=== PATIENT | male | born 1960 | race Caucasian/White ===

== ENCOUNTER 2023-05-26 04:16 | Emergency (ER) | payer BC, SELFPAY ==
[2023-05-26 04:25] VITALS: BP 156/91; PULSE 114; RESP 16; TEMP 36.3; O2SAT 95
--- NOTE | 2023-05-26 04:56 | ED_ITS ---
HPI - General Adult General Chief complaint: Urogenital Problems, Male <Jennifer Villalta MD - Last Filed: 05/27/23 00:02> Stated complaint: unable to urinate. <Jennifer Villalta MD - Last Filed: 05/27/23 00:02> Time Seen by Provider: 05/26/23 04:34 <Jennifer Villatla MD - Last Filed: 05/27/23 00:02> History of Present Illness HPI narrative: Patient presents the emergency department unable to urinate for the past few hours. No fevers, no trauma or injury. Does not take any prescription medications, did not take any antihistamines, cold medicine etc. tonight. Reports that he has had urinary urgency for several months, no symptoms of STDs, no dysuria, blood or burning. He tried ordering an online supplement for prostate health and has been taking that for the past couple of weeks with no significant improvement in symptoms. Has never had keshawn urinary retention in the past but has had a slow stream for several years. Problem has been coming on gradually. Has never had a urinary catheter placed in the past. No prior history of similar symptoms. Eating and drinking normally, no symptoms of acute illness. Reports his past medical history is benign, no major long-term health problems. Nonsmoker. ROS notable only for the urinary symptoms as above, otherwise denies times 12 systems. <Jennifer Villalta MD - Last Filed: 05/27/23 00:02> Related Data Home medications: Previous Rx's Medication Instructions Recorded cephalexin 500 mg capsule 500 mg PO TID 7 days #21 caps 05/26/23 <Jennifer Villalta MD - Last Filed: 05/27/23 00:02> Allergies/adverse reactions: Allergies Allergy/AdvReac Type Severity Reaction Status Date / Time Penicillins Allergy Intermediate Verified 05/26/23 07:54 <Jennifer Villalta MD - Last Filed: 05/27/23 00:02> Exam Const: Vital Signs, click to edit/add: Vital Signs - 24 hr 05/26/23 04:25 05/26/23 08:10 05/26/23 10:19 Temperature 97.3 F L 97.3 F L Pulse Rate [Left P ulse Oximeter] 114 H 107 H 107 H Respiratory Rate 16 18 18 Blood Pressure [Ri ght Upper Arm] 156/91 H 122/79 122/79 Pulse Oximetry 95 93 Oxygen Delivery Me thod Room Air Room Air <Jennifer Villalta MD - Last Filed: 05/27/23 00:02> Vital Signs, click to edit/add: Vital Signs - 24 hr 05/26/23 04:25 05/26/23 08:10 05/26/23 10:19 Temperature 97.3 F L 97.3 F L Pulse Rate [Left P ulse Oximeter] 114 H 107 H 107 H Respiratory Rate 16 18 18 Blood Pressure [Ri ght Upper Arm] 156/91 H 122/79 122/79 Pulse Oximetry 95 93 Oxygen Delivery Me thod Room Air Room Air <Yon Schroeder MD - Last Filed: 05/26/23 09:55> Documenting provider has reviewed patient's vital signs: yes <Jennifer Villalta MD - Last Filed: 05/27/23 00:02> Common normals: no apparent distress and alert <Jennifer Villalta MD - Last Filed: 05/27/23 00:02> General appearance: cooperative and well kempt <Jennifer Villalta MD - Last Filed: 05/27/23 00:02> HENMT: Common normals: normocephalic <Jennifer Villalta MD - Last Filed: 05/27/23 00:02> Head and scalp: normocephalic <Jennifer Villalta MD - Last Filed: 05/27/23 00:02> Face and sinus: normal facial exam <Jennifer Villalta MD - Last Filed: 05/27/23 00:02> Eye: Common normals: conjunctivae normal <Jennifer Villalta MD - Last Filed: 05/27/23 00:02> General eye: normal appearance of both eyes <Jennifer Villalta MD - Last Filed: 05/27/23 00:02> Conjunctiva: conjunctiva(e) normal <Jennifer Villalta MD - Last Filed: 05/27/23 00:02> Resp: Common normals: normal respiratory effort, no use of accessory muscles and clear to auscultation bilaterally <Jennifer Villalta MD - Last Filed: 05/27/23 00:02> Effort & inspection: able to speak in complete sentences <Jennifer Villalta MD - Last Filed: 05/27/23 00:02> Auscultation: clear to auscultation bilaterally <Jennifer Villalta MD - Last Filed: 05/27/23 00:02> Cardio: Common normals: regular rate, regular rhythm, S1 normal heart sound, S2 normal heart sound and no murmurs <Jennifer Villalta MD - Last Filed: 05/27/23 00:02> Rate: regular rate <Jennifer Villalta MD - Last Filed: 05/27/23 00:02> Rhythm: regular rhythm <Jennifer Villalta MD - Last Filed: 05/27/23 00:02> Heart sounds: S1 normal and S2 normal <Jennifer Villalta MD - Last Filed: 05/27/23 00:02> GI: Common normals: Normal to inspection, nondistended, normoactive bowel sounds present, soft to palpation, no hepatosplenomegaly and no masses <Neeta Villalta MD - Last Filed: 05/27/23 00:02> Palpation: soft and no hepatosplenomegaly <Jennifer Villalta MD - Last Filed: 05/27/23 00:02> Other: 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 Bowel sounds normoactive throughout with some mild tenderness over the suprapubic region only. <Jennifer Villalta MD - Last Filed: 05/27/23 00:02> Neuro: Sensorium/orientation: alert <MD Jannet Tate Last Filed: 05/27/23 00:02> Speech: speech normal <MD Jannet Tate Last Filed: 05/27/23 00:02> Motor exam: no movement abnormalities noted <MD Jannet Tate Last Filed: 05/27/23 00:02> Psych: Appearance: well kempt <Jennifer Villalta MD - Last Filed: 05/27/23 00:02> Mood and affect: euthymic mood <Jennifer Villalta MD - Last Filed: 05/27/23 00:02> Insight: insight good <Jennifer Villalta MD - Last Filed: 05/27/23 00:02> Judgement: judgment good <Jennifer Villalta MD - Last Filed: 05/27/23 00:02> Skin: Common normals: no rashes or lesions noted <Jennifer Villalta MD - Last Filed: 05/27/23 00:02> General skin exam: no rashes or lesions noted <Jennifer Villalta MD - Last Filed: 05/27/23 00:02> Course Course ED Course: Bladder scan revealing greater than 400. Recommended urinary catheter placement and urinalysis. Based on his history, will start Flomax. Discussed the fact that he will need urology follow-up which may be difficult over this holiday season. It may take a few weeks to get in with a provider. Await labs. <Jennifer Villalta MD - Last Filed: 05/27/23 00:02> Reevaluation(s) Time of Reevaluation #1: 06:46 <Jennifer Villalta MD - Last Filed: 05/27/23 00:02> Reevaluation #1: Patient feeling much better after insertion of catheter. It took quite a while to get the urinalysis results back in September showed bloody urine like really grossly bloody urine. I let him know that these findings are concerning for potentially malignancy or other abnormal finding. I did recommend that since he is here and does not have a primary doctor to follow up with that we go ahead and proceed with a CT urogram of the abdomen and pelvis as well as some basic blood work. He was agreeable to this. <Jennifer Villalta MD - Last Filed: 05/27/23 00:02> Vital Signs Vital signs: Initial Vital Signs Temperature 97.3 F L 05/26/23 04:25 Temperature Source Oral 05/26/23 04:25 Pulse Rate 114 H 05/26/23 04:25 Pulse Rhythm Regular 05/26/23 04:25 Respiratory Rate 16 05/26/23 04:25 Blood Pressure 156/91 H 05/26/23 04:25 Blood Pressure Mean 112 H 05/26/23 04:25 Blood Pressure Position Sitting 05/26/23 04:25 Pulse Oximetry 95 05/26/23 04:25 Oxygen Delivery Method Room Air 05/26/23 04:25 Vital Signs Temperature 97.3 F L 05/26/23 04:25 Pulse Rate 114 H 05/26/23 04:25 Respiratory Rate 16 05/26/23 04:25 Blood Pressure 156/91 H 05/26/23 04:25 Pulse Oximetry 95 05/26/23 04:25 Oxygen Delivery Method Room Air 05/26/23 04:25 Temperature 97.3 F L 05/26/23 10:19 Pulse Rate 107 H 05/26/23 10:19 Respiratory Rate 18 05/26/23 10:19 Blood Pressure 122/79 05/26/23 10:19 Pulse Oximetry 93 05/26/23 08:10 Oxygen Delivery Method Room Air 05/26/23 08:10 <Jennifer Villalta MD - Last Filed: 05/27/23 00:02> Initial Vital Signs Temperature 97.3 F L 05/26/23 04:25 Temperature Source Oral 05/26/23 04:25 Pulse Rate 114 H 05/26/23 04:25 Pulse Rhythm Regular 05/26/23 04:25 Respiratory Rate 16 05/26/23 04:25 Blood Pressure 156/91 H 05/26/23 04:25 Blood Pressure Mean 112 H 05/26/23 04:25 Blood Pressure Position Sitting 05/26/23 04:25 Pulse Oximetry 95 05/26/23 04:25 Oxygen Delivery Method Room Air 05/26/23 04:25 Vital Signs Temperature 97.3 F L 05/26/23 04:25 Pulse Rate 114 H 05/26/23 04:25 Respiratory Rate 16 05/26/23 04:25 Blood Pressure 156/91 H 05/26/23 04:25 Pulse Oximetry 95 05/26/23 04:25 Oxygen Delivery Method Room Air 05/26/23 04:25 Temperature 97.3 F L 05/26/23 10:19 Pulse Rate 107 H 05/26/23 10:19 Respiratory Rate 18 05/26/23 10:19 Blood Pressure 122/79 05/26/23 10:19 Pulse Oximetry 93 05/26/23 08:10 Oxygen Delivery Method Room Air 05/26/23 08:10 <Yon Schroeder MD - Last Filed: 05/26/23 09:55> Medications Administered Medications: Discontinued Medications Generic Name Dose Route Start Last Admin Trade Name Freq PRN Reason Stop Dose Admin Tamsulosin HCl 0.4 mg 05/26/23 04:55 05/26/23 05:10 Tamsulosin Hcl 0.4 Mg Capsule PO 05/26/23 04:56 0.4 mg ONCE ONE Administration <Jennifer Villalta MD - Last Filed: 05/27/23 00:02> Discontinued Medications Generic Name Dose Route Start Last Admin Trade Name Freq PRN Reason Stop Dose Admin Tamsulosin HCl 0.4 mg 05/26/23 04:55 05/26/23 05:10 Tamsulosin Hcl 0.4 Mg Capsule PO 05/26/23 04:56 0.4 mg ONCE ONE Administration <Yon Schroeder MD - Last Filed: 05/26/23 09:55> Medical Decision Making MDM Narrative Medical decision making narrative: This patient comes in with urinary retention and was seen by Dr. Villalta who transferred care to md at the end of her shift. A CT urogram scan was ordered and completed and returns with no evidence of tumor or malignancy. The patient does have blood in his urine and has urinary retention which is likely related to his prostate gland. There is no obvious sign of infection on urinalysis but with a catheter in place that he will stay in place for a couple days I did decide to treat with Keflex. I advised the patient to follow up with the primary physician in a few days to remove the catheter but stressed also the importance of follow-up with urology clinic for further evaluation and treatment regarding these symptoms. <Yon Schroeder MD - Last Filed: 05/26/23 09:55> Lab Data Lab results reviewed: Yes I reviewed the patient's lab results <Jennifer Villalta MD - Last Filed: 05/27/23 00:02> Lab results narrative: Gross hematuria. Very concerning for possible underlying malignancy or other pathology. I do not think this is a kidney stone as he is not symptomatic for such. Has no primary care provider and I think that investigation is warranted. <Jennifer Villalta MD - Last Filed: 05/27/23 00:02> Labs: Lab Results 05/26/23 05/26/23 Range/Units 05:20 06:58 WBC 11.10 H (4.50-11.00) K/uL RBC 4.75 (4.30-5.90) m/uL Hgb 13.9 (13.5-17.5) gm/dL Hct 41.8 (37.0-53.0) % MCV 88 (80-100) fL MCH 29 (26-34) pg MCHC 33 (32-36) gm/dL RDW Coeff of Pamela 11.7 (11.5-15.5) % Plt Count 226 (140-440) K/uL Neut % (Auto) 82.6 H (42.0-72.0) % Lymph % (Auto) 9.9 L (20-44) % [place] % (Auto) 5.9 (0.0-11.0) % Eos % (Auto) 0.5 (0.0-7.0) % Baso % (Auto) 0.3 (0.0-3.0) % Neut # (Auto) 9.20 H (1.7-7.0) K/uL Lymph # (Auto) 1.10 (0.90-2.90) K/uL [place] # (Auto) 0.70 (0.00-0.90) K/UL Eos # (Auto) 0.10 (0.00-0.50) K/uL Baso # (Auto) 0.00 (0.00-0.30) K/uL Abs Immat Gran (auto) 0.10 (0.00-0.30) K/uL Imm/Tot Granulo (auto) 0.8 % Sodium 135 (135-149) mmol/L Potassium 4.5 (3.6-5.1) mmol/L Chloride 101 (96-114) mmol/L Carbon Dioxide 26 (20-32) mmol/L Anion Gap 8 (7-15) mEq/L BUN 17 (7-30) mg/dL Creatinine 0.6 (0.5-1.5) mg/dL Estimated GFR 108 ml/min Glucose 116 H (60-115) mg/dL Calcium 8.8 (8.4-10.6) mg/dL PSA Diagnostic 3.39 (0.10-4.00) ng/mL Urine Color Brown A (Yellow) Urine Appearance Cloudy A (Clear) Urine pH 5.5 (5.0-8.5) Ur Specific [place] >= 1.030 (1.000-1.030) Urine Protein 2+ A (Negative) Urine Glucose (UA) Negative (Negative) Urine Ketones Negative (Negative) Urine Blood 3+ A (Negative) Urine Nitrite Negative (Negative) Urine Bilirubin Negative (Negative) Urine Urobilinogen 0.2 (0.2-1.0) Ur Leukocyte Esterase Negative (Negative) Urine RBC >100 A (0-2) Urine WBC 5-10 A (0-5) Ur Squamous Epith Cells Few (None-Few) Urine Bacteria Moderate A (None) <Jennifer Villalta MD - Last Filed: 05/27/23 00:02> Lab Results 05/26/23 05/26/23 Range/Units 05:20 06:58 WBC 11.10 H (4.50-11.00) K/uL RBC 4.75 (4.30-5.90) m/uL Hgb 13.9 (13.5-17.5) gm/dL Hct 41.8 (37.0-53.0) % MCV 88 (80-100) fL MCH 29 (26-34) pg MCHC 33 (32-36) gm/dL RDW Coeff of Pamela 11.7 (11.5-15.5) % Plt Count 226 (140-440) K/uL Neut % (Auto) 82.6 H (42.0-72.0) % Lymph % (Auto) 9.9 L (20-44) % [place] % (Auto) 5.9 (0.0-11.0) % Eos % (Auto) 0.5 (0.0-7.0) % Baso % (Auto) 0.3 (0.0-3.0) % Neut # (Auto) 9.20 H (1.7-7.0) K/uL Lymph # (Auto) 1.10 (0.90-2.90) K/uL [place] # (Auto) 0.70 (0.00-0.90) K/UL Eos # (Auto) 0.10 (0.00-0.50) K/uL Baso # (Auto) 0.00 (0.00-0.30) K/uL Abs Immat Gran (auto) 0.10 (0.00-0.30) K/uL Imm/Tot Granulo (auto) 0.8 % Sodium 135 (135-149) mmol/L Potassium 4.5 (3.6-5.1) mmol/L Chloride 101 (96-114) mmol/L Carbon Dioxide 26 (20-32) mmol/L Anion Gap 8 (7-15) mEq/L BUN 17 (7-30) mg/dL Creatinine 0.6 (0.5-1.5) mg/dL Estimated GFR 108 ml/min Glucose 116 H (60-115) mg/dL Calcium 8.8 (8.4-10.6) mg/dL PSA Diagnostic 3.39 (0.10-4.00) ng/mL Urine Color Brown A (Yellow) Urine Appearance Cloudy A (Clear) Urine pH 5.5 (5.0-8.5) Ur Specific [place] >= 1.030 (1.000-1.030) Urine Protein 2+ A (Negative) Urine Glucose (UA) Negative (Negative) Urine Ketones Negative (Negative) Urine Blood 3+ A (Negative) Urine Nitrite Negative (Negative) Urine Bilirubin Negative (Negative) Urine Urobilinogen 0.2 (0.2-1.0) Ur Leukocyte Esterase Negative (Negative) Urine RBC >100 A (0-2) Urine WBC 5-10 A (0-5) Ur Squamous Epith Cells Few (None-Few) Urine Bacteria Moderate A (None) <Yon Schroeder MD - Last Filed: 05/26/23 09:55> Imaging Data CT Urogram: Radiologist's impression: 1. No calcified calculus. No evidence of current or recent obstructive uropathy on either side. 2. No visible renal cortical mass. No filling defect identified within the upper tracts or ureters. 3. The bladder is not well evaluated as it is decompressed by Isaac catheter. 4. Other incidental nonacute appearing findings as above. <Yon Schroeder MD - Last Filed: 05/26/23 09:55> Discharge Plan Discharge Clinical Impression: Acute urinary retention <Jennifer Villalta MD - Last Filed: 05/27/23 00:02> Patient Disposition: Home, Self-Care <Jennifer Villalta MD - Last Filed: 05/27/23 00:02> Condition: Improved <Jennifer Villalta MD - Last Filed: 05/27/23 00:02> Additional Instructions: Take medication as prescribed. Follow up with primary physician in 2-3 days for catheter removal. Follow-up with urology clinic for further evaluation treatment of urinary retention and hematuria. [facility] can be contacted by calling [phone] for appointment. <Jennifer Villalta MD - Last Filed: 05/27/23 00:02> Prescriptions: New cephalexin 500 mg capsule 500 mg PO TID 7 Days Qty: 21 0RF <Jennifer Villalta MD - Last Filed: 05/27/23 00:02> Follow Up/Referrals: Provider,Not a Local [Primary Care Provider] - <Jennifer Villalta MD - Last Filed: 05/27/23 00:02> Stand Alone Forms: MyHealth Info Instructions <Jennifer Villalta MD - Last Filed: 05/27/23 00:02>
[2023-05-26] MEDS: TAMSULOSIN HCL 0.4 MG CAPSULE PO (05:10)
[2023-05-26 06:17] LABS: Appearance Urine Cloudy (Clear); Bilirubin Urine Negative (Negative); Blood Urine 3+ (Negative); Color Urine Brown (Yellow); Glucose Urine Negative (Negative); Ketones Urine Negative (Negative); Leukocyte Esterase Urine Negative (Negative); Nitrite Urine Negative (Negative); Protein Urine 2+ (Negative); Specific Gravity Urine >= 1.030 (1.000-1.030); Urobilinogen Urine 0.2 (0.2-1.0); pH Urine 5.5 (5.0-8.5)
[2023-05-26 06:21] LABS: Bacteria Urine Moderate; RBC Urine >100 (0-2); Squamous Epithelial Cell Urine Few (None-Few)
--- NOTE | 2023-05-26 06:44 | CRLHL7_ITS ---
For Patients: As a result of the Century Cures Act, medical imaging exams and procedure reports are released immediately into your electronic medical record. You may view this report before your referring provider. If you have questions, please contact your health care provider. INDICATION: Difficulty urinating. Hematuria. COMPARISON: None TECHNIQUE: CT examination of the abdomen and pelvis was performed before and after the uneventful intravenous administration of 100 cc of Isovue 370. Thin section axial images were obtained from the lung bases through the pubic symphysis. Oral contrast was not administered. Please note that all CT scans at this facility use dose modulation, iterative reconstruction, and/or weight-based dosing when appropriate to reduce radiation dose to as low as reasonably achievable. FINDINGS: LUNG BASES: The lung bases as visualized appear normal.The heart size is normal at the lung bases. LIVER/BILIARY SYSTEM:Few scattered low-density lesions are identified.The gall bladder appears normal. There is no biliary ductal dilation. ADRENALS: Normal KIDNEYS, URETERS and BLADDER:There is no calcified calculus and there is no evidence of a current or recent obstructive uropathy. There is no renal cortical mass after contrast administration. No filling defect identified within the upper tracts or ureters. Bladder is decompressed by Isaac catheter rendering evaluation of the bladder limited. SPLEEN:Normal appearance. PANCREAS: Appears normal. RETROPERITONEUM and MESENTERY: There is no mass, adenopathy or aortic aneurysm. GASTROINTESTINAL SYSTEM: There is no evidence of diverticulitis, colitis, mechanical obstruction, or appendicitis. The small bowel as visualized appears normal. PELVIS: No mass, adenopathy or free fluid. OSSEOUS STRUCTURES and ABDOMINAL WALL: There is an age-appropriate appearance of the osseous structures.No significant abdominal wall defect. OTHER: No free fluid or free air. IMPRESSION: 1. No calcified calculus. No evidence of current or recent obstructive uropathy on either side. 2. No visible renal cortical mass. No filling defect identified within the upper tracts or ureters. 3. The bladder is not well evaluated as it is decompressed by Isaac catheter. 4. Other incidental nonacute appearing findings as above. Please note that all CT scans at this facility use dose modulation, iterative reconstruction, and/or weight-based dosing when appropriate to reduce radiation dose to as low as reasonably achievable. Dictated by Thuan Corey MD @ 05/26/2023 9:03:17 AM (Electronically Signed)
[2023-05-26 07:09] LABS: Basophils Percent Auto 0.3 % (0.0-3.0); Eosinophils Percent Auto 0.5 % (0.0-7.0); Hematocrit 41.8 % (37.0-53.0); Hemoglobin* 13.9 gm/dL (13.5-17.5); Immature Granulocytes Pct Auto 0.8 %; Lymphocytes Percent Auto 9.9 % (20-44); Mean Corpuscular HGB Conc 33 gm/dL (32-36); Mean Corpuscular Hemoglobin 29 pg (26-34); Mean Corpuscular Volume 88 fL (80-100); Monocytes Percent Auto 5.9 % (0.0-11.0); Neutrophils Percent Auto 82.6 % (42.0-72.0); Platelet Count* 226 K/uL (140-440); RDW Coefficient of Variation % 11.7 % (11.5-15.5); Red Blood Count 4.75 m/uL (4.30-5.90)
[2023-05-26 07:12] LABS: Slide Review Reflex No
[2023-05-26 07:20] LABS: Chloride* 101 mmol/L (96-114)
[2023-05-26 07:21] LABS: Potassium* 4.5 mmol/L (3.6-5.1); Sodium* 135 mmol/L (135-149)
[2023-05-26 07:23] LABS: Creatinine* 0.6 mg/dL (0.5-1.5); Estimated Glomerular Filt Rate 108 ml/min
[2023-05-26 07:24] LABS: Anion Gap 8 mEq/L (7-15); Blood Urea Nitrogen* 17 mg/dL (7-30); Calcium* 8.8 mg/dL (8.4-10.6); Carbon Dioxide* 26 mmol/L (20-32); Glucose* 116 mg/dL (60-115)
[2023-05-26 07:55] LABS: PSA Diagnostic* 3.39 ng/mL (0.10-4.00)
[2023-05-26 08:10] VITALS: BP 122/79; PULSE 107; RESP 18; O2SAT 93
--- NOTE | 2023-05-26 08:12 | ED.NURSE ---
parry catheter emptied 80cc dark brownish-red urine
[2023-05-26 10:19] VITALS: BP 122/79; PULSE 107; RESP 18; TEMP 36.3
--- NOTE | 2023-05-26 10:19 | ED.NURSE ---
Leg bag placed on pt. Given parry cath education. Pt had no further questions. D/c to home, ambulatory.
== END 2023-05-26 10:15 | disposition home or self-care (01) ==
PROVIDERS: Emergency Provider Family Medicine
DX: R33.9 Retention of urine, unspecified (principal)
CPT/HCPCS: 36415; 51702; 51798; 74178; 80048; 81003; 81015; 84153; 85025; 87086; 99284; A9270; Q9967

== ENCOUNTER 2023-05-28 13:48 | Outpatient (CLI) | payer BC, SELFPAY | END 2023-05-28 13:49 | disposition home or self-care (01) | PROVIDERS: Visit Provider Family Medicine | DX: R33.8 Other retention of urine (principal); R31.0 Gross hematuria | CPT/HCPCS: 80053; 82728 ==

== ENCOUNTER 2023-12-26 22:05 | Emergency (ER) | payer BC, SELFPAY ==
[2023-12-26 22:20] VITALS: BP 99/69; PULSE 100; RESP 16; TEMP 36.4; O2SAT 95; BMI 28.1
--- NOTE | 2023-12-26 22:36 | ED_ITS ---
HPI - General Adult General Time Seen by Provider: 22:36 <Kandi Turk MD - Last Filed: 12/27/23 01:45> Date Seen: 12/26/23 <Kandi Turk MD - Last Filed: 12/27/23 01:45> Chief complaint: Post Op Complication <Kandi Turk MD - Last Filed: 12/27/23 01:45> Stated complaint: post op pain <Kandi Turk MD - Last Filed: 12/27/23 01:45> Time Seen by Provider: 12/26/23 22:26 <Kandi Turk MD - Last Filed: 12/27/23 01:45> Source: patient, RN notes reviewed and old records reviewed <Kandi Turk MD - Last Filed: 12/27/23 01:45> Mode of arrival: ambulatory <Kandi Turk MD - Last Filed: 12/27/23 01:45> Limitations: no limitations <Kandi Turk MD - Last Filed: 12/27/23 01:45> History of Present Illness HPI narrative: Mr. Richard is a 63-year-old gentleman status post chemotherapy for bladder cancer, postop day 4 after a bladder removal and what he is describing a synth etic bladder replacement who comes to the emergency room with abdominal pain. Patient notes that he has been doing well until this evening at approximately 1700 when he developed increasing abdominal pain. He notes that it was gradual. He notes that he feels distended. He has had MiraLax today and has had 2 normal bowel movements that have been nonbloody. He denies nausea vomiting or fever. He notes that the pain is waxing and waning. He has a Isaac that is draining bloody urine. He is currently on apixaban and Macrobid. Movement does not really seem to impact his pain. He has not taken anything for pain this evening. <Kandi Turk MD - Last Filed: 12/27/23 01:45> Related Data Home medications: Home Medications ?Medication ?Instructions ?Recorded ?Confirmed albuterol 90 mcg/actuation aerosol 2 spray inhalation PRN 05/27/23 05/27/23 inhaler apixaban 2.5 mg tablet (Eliquis) 2.5 mg PO BID 12/26/23 12/26/23 nitrofurantoin 1 cap PO DAILY 12/26/23 12/26/23 monohydrate/macrocrystals 100 mg capsule <Kandi Turk MD - Last Filed: 12/27/23 01:45> Allergies/adverse reactions: Allergies Allergy/AdvReac Type Severity Reaction Status Date / Time Penicillins Allergy Intermediate Verified 05/28/23 13:30 <Kandi Turk MD - Last Filed: 12/27/23 01:45> Review of Systems Status of ROS: Reports: 10 or more systems reviewed and unremarkable except as noted in History and below <Kandi Turk MD - Last Filed: 12/27/23 01:45> Const: Denies: fever or chills <Kandi Turk MD - Last Filed: 12/27/23 01:45> ENMT: Denies: neck pain, difficulty swallowing or nasal congestion <Kandi Turk MD - Last Filed: 12/27/23 01:45> Cardio: Denies: chest pain, palpitations, swelling of feet/ankles or shortness of breath with exertion <Kandi Turk MD - Last Filed: 12/27/23 01:45> Resp: Denies: shortness of breath <Kandi Turk MD - Last Filed: 12/27/23 01:45> GI: Reports: abdominal pain; Denies: nausea, vomiting, diarrhea, constipation, difficulty swallowing or blood in stool <Kandi Turk MD - Last Filed: 12/27/23 01:45> Musculo: Reports: back pain; Denies: neck pain <Kandi Turk MD - Last Filed: 12/27/23 01:45> [facility] Medical History: Medical History Reactive airway disease ?J45.909 - Unspecified asthma, uncomplicated (ICD-10) Pneumonia ?J18.9 - Pneumonia, unspecified organism (ICD-10) <Kandi Turk MD - Last Filed: 12/27/23 01:45> Surgical History: Surgical History History of pyloric stenosis as a child ?Z87.19 - Personal history of other diseases of the digestive system (ICD-10) <Kandi Turk MD - Last Filed: 12/27/23 01:45> Family History: Family History Father Cancer of kidney Myocardial infarction, Onset Age: 87 Grandfather Myocardial infarction Grandmother Myocardial infarction <Kandi Turk MD - Last Filed: 12/27/23 01:45> Social History: Social History 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 Does not appear to be any any acute distress but he does appear to be a stoic gentleman. External ears eyes nose clear. Heart with regular rate and rhythm and lungs are clear bilaterally. I removed the abdominal binder and patient has no evidence of bleeding from surgical sites and no erythema. Abdomen is rather firm and uncomfortable to the touch rather diffusely. Lower extremities without edema. <Kandi Turk MD - Last Filed: 12/27/23 01:45> Const: Vital Signs, click to edit/add: Vital Signs - 24 hr 12/26/23 22:20 12/27/23 00:51 Temperature 97.5 F L Pulse Rate [Pulse Oximeter] 100 93 Respiratory Rate 16 16 Blood Pressure [Ri ght Upper Arm] 99/69 134/87 Pulse Oximetry 95 94 Oxygen Delivery Me thod Room Air Room Air <Kandi Turk MD - Last Filed: 12/27/23 01:45> Vital Signs, click to edit/add: Vital Signs - 24 hr 12/26/23 22:20 12/27/23 00:51 Temperature 97.5 F L Pulse Rate [Pulse Oximeter] 100 93 Respiratory Rate 16 16 Blood Pressure [Ri ght Upper Arm] 99/69 134/87 Pulse Oximetry 95 94 Oxygen Delivery Me thod Room Air Room Air <Jennifer Villalta MD - Last Filed: 12/27/23 02:34> Documenting provider has reviewed patient's vital signs: yes <Kandi Turk MD - Last Filed: 12/27/23 01:45> Course Course ED Course: Differential diagnosis includes but is not limited to bowel obstruction, postsurgical infection, postsurgical pain, in aortic pathology, gastroenteritis. Patient does have a port. Will draw labs to include CBC, comprehensive panel, lactate, CRP. <Kandi Turk MD - Last Filed: 12/27/23 01:45> Reevaluation(s) Reevaluation #1: Patient CRP has come back elevated at 2.2 but lactate is normal. White count normal at 10.59. Hemoglobin slightly low at 9.7. Mildly hyponatremic at 0132. Potassium and kidney function normal. LFTs normal. <Kandi Turk MD - Last Filed: 12/27/23 01:45> Time of Reevaluation #2: 02:28 <Jennifer Villalta MD - Last Filed: 12/27/23 02:34> Reevaluation #2: Dr. Villalta- I spoke with Dr. Romero from Urology. He agrees with my thought that air within the abdomen on only postop day for is not terribly concerning and is unlikely from dehiscence but we do agree with the small-bowel obstruction that he certainly should be admitted. The physician was quite surprised that the patient was discharged so early following cystectomy, we both suspect that this is because he is otherwise in such good health and was doing so well postoperatively. No beds available at [place], but beds are available in [facility]. Urology thought this would be appropriate as he was unlikely to need surgical intervention, hopefully just monitoring with resolution of the small bowel obstruction. I spoke with the patient and his family, offered BLS transport but let them know that we would need to call for mutual aid as we do not have a Rig available for transport out of the area tonight. I would anticipate a 6 hour wait until the new rig comes on in the morning, but this could certainly be delayed by Urgent 911 needs. Upon hearing this, the patient and family decline ambulance transport and would like to go by private car. Patient has not had any sedating medications and his family does seem very competent to transfer him. Images have already been pushed to the you and patient will be sent with a complete copy of his medical workup here in the ED. he will be transferred via private car upon nurse to nurse report. <Jennifer Villalta MD - Last Filed: 12/27/23 02:34> Vital Signs Vital signs: Initial Vital Signs Temperature 97.5 F L 12/26/23 22:20 Temperature Source Temporal Artery Scan 12/26/23 22:20 Pulse Rate 100 12/26/23 22:20 Respiratory Rate 16 12/26/23 22:20 Blood Pressure 99/69 12/26/23 22:20 Blood Pressure Mean 79 12/26/23 22:20 Blood Pressure Position Sitting 12/26/23 22:20 Pulse Oximetry 95 12/26/23 22:20 Oxygen Delivery Method Room Air 12/26/23 22:20 Vital Signs Temperature 97.5 F L 12/26/23 22:20 Pulse Rate 100 12/26/23 22:20 Respiratory Rate 16 12/26/23 22:20 Blood Pressure 99/69 12/26/23 22:20 Pulse Oximetry 95 12/26/23 22:20 Oxygen Delivery Method Room Air 12/26/23 22:20 Temperature 97.5 F L 12/26/23 22:20 Pulse Rate 93 12/27/23 00:51 Respiratory Rate 16 12/27/23 00:51 Blood Pressure 134/87 12/27/23 00:51 Pulse Oximetry 94 12/27/23 00:51 Oxygen Delivery Method Room Air 12/27/23 00:51 <Kandi Turk MD - Last Filed: 12/27/23 01:45> Initial Vital Signs Temperature 97.5 F L 12/26/23 22:20 Temperature Source Temporal Artery Scan 12/26/23 22:20 Pulse Rate 100 12/26/23 22:20 Respiratory Rate 16 12/26/23 22:20 Blood Pressure 99/69 12/26/23 22:20 Blood Pressure Mean 79 12/26/23 22:20 Blood Pressure Position Sitting 12/26/23 22:20 Pulse Oximetry 95 12/26/23 22:20 Oxygen Delivery Method Room Air 12/26/23 22:20 Vital Signs Temperature 97.5 F L 12/26/23 22:20 Pulse Rate 100 12/26/23 22:20 Respiratory Rate 16 12/26/23 22:20 Blood Pressure 99/69 12/26/23 22:20 Pulse Oximetry 95 12/26/23 22:20 Oxygen Delivery Method Room Air 12/26/23 22:20 Temperature 97.5 F L 12/26/23 22:20 Pulse Rate 93 12/27/23 00:51 Respiratory Rate 16 12/27/23 00:51 Blood Pressure 134/87 12/27/23 00:51 Pulse Oximetry 94 12/27/23 00:51 Oxygen Delivery Method Room Air 12/27/23 00:51 <Jennifer Villalta MD - Last Filed: 12/27/23 02:34> Medications Administered Medications: Discontinued Medications Generic Name Dose Route Start Last Admin Trade Name Freq PRN Reason Stop Dose Admin Sodium Chloride 500 mls @ 500 mls/hr 12/26/23 22:43 12/27/23 00:26 0.9 % Sodium Chloride 500 Ml IV 12/26/23 23:42 Infused .Q1H ONE Infusion <Kandi Turk MD - Last Filed: 12/27/23 01:45> Discontinued Medications Generic Name Dose Route Start Last Admin Trade Name Freq PRN Reason Stop Dose Admin Sodium Chloride 500 mls @ 500 mls/hr 12/26/23 22:43 12/27/23 00:26 0.9 % Sodium Chloride 500 Ml IV 12/26/23 23:42 Infused .Q1H ONE Infusion <Jennifer Villalta MD - Last Filed: 12/27/23 02:34> Medical Decision Making MDM Narrative Medical decision making narrative: 1. Small-bowel obstruction -at this time patient remains stable with normal lactate, normal potassium. 2. Questionable wound dehiscence status post bladder surgery -we are currently awaiting call from [place] surgeon regarding this patient. Images have been sent. 3. Abdominal pain-has not required anything for pain at this time. 4. Disposition -this case is signed out to my partner Dr. Villalta for discussion with [facility] and disposition. <Kandi Turk MD - Last Filed: 12/27/23 01:45> Medical Records Medical records reviewed: Yes I reviewed the patient's medical records <Kandi Turk MD - Last Filed: 07/28/24 01:45> Lab Data Lab results reviewed: Yes I reviewed the patient's lab results <Kandi Turk MD - Last Filed: 12/27/23 01:45> Labs: Lab Results 12/26/23 Range/Units 23:00 WBC 10.59 (4.50-11.00) K/uL RBC 3.20 L (4.30-5.90) m/uL Hgb 9.7 L (13.5-17.5) gm/dL Hct 29.5 L (37.0-53.0) % MCV 92 (80-100) fL MCH 30 (26-34) pg MCHC 33 (32-36) gm/dL RDW Coeff of Pamela 14.5 (11.5-15.5) % Plt Count 280 (140-440) K/uL Neut % (Auto) 78.0 H (42.0-72.0) % Lymph % (Auto) 9.5 L (20-44) % Riley % (Auto) 8.2 (0.0-11.0) % Eos % (Auto) 2.3 (0.0-7.0) % Baso % (Auto) 0.3 (0.0-3.0) % Neut # (Auto) 8.30 H (1.7-7.0) K/uL Lymph # (Auto) 1.00 (0.90-2.90) K/uL Riley # (Auto) 0.90 (0.00-0.90) K/UL Eos # (Auto) 0.24 (0.00-0.50) K/uL Baso # (Auto) 0.03 (0.00-0.30) K/uL Abs Immat Gran (auto) 0.18 (0.00-0.30) K/uL Imm/Tot Granulo (auto) 1.7 % Sodium 132 L (135-149) mmol/L Potassium 4.1 (3.6-5.1) mmol/L Chloride 101 (96-114) mmol/L Carbon Dioxide 24 (20-32) mmol/L Anion Gap 7 (7-15) mEq/L BUN 24 (7-30) mg/dL Creatinine 0.9 (0.5-1.5) mg/dL Estimated Creat Clear 72.20 Estimated GFR 95 ml/min Glucose 112 (60-115) mg/dL Lactate 0.7 (0.5-1.9) mmol/L Calcium 8.7 (8.4-10.6) mg/dL Total Bilirubin 0.5 (0.1-1.5) mg/dL AST 34 (12-35) U/L ALT 23 (4-50) U/L Alkaline Phosphatase 65 (40-150) U/L C-Reactive Protein 2.2 H (0.5-1.0) mg/dL Total Protein 6.4 (6.0-8.3) g/dL Albumin 3.9 (3.3-5.0) g/dL <Kandi Turk MD - Last Filed: 12/27/23 01:45> Lab Results 12/26/23 Range/Units 23:00 WBC 10.59 (4.50-11.00) K/uL RBC 3.20 L (4.30-5.90) m/uL Hgb 9.7 L (13.5-17.5) gm/dL Hct 29.5 L (37.0-53.0) % MCV 92 (80-100) fL MCH 30 (26-34) pg MCHC 33 (32-36) gm/dL RDW Coeff of Pamela 14.5 (11.5-15.5) % Plt Count 280 (140-440) K/uL Neut % (Auto) 78.0 H (42.0-72.0) % Lymph % (Auto) 9.5 L (20-44) % Riley % (Auto) 8.2 (0.0-11.0) % Eos % (Auto) 2.3 (0.0-7.0) % Baso % (Auto) 0.3 (0.0-3.0) % Neut # (Auto) 8.30 H (1.7-7.0) K/uL Lymph # (Auto) 1.00 (0.90-2.90) K/uL Riley # (Auto) 0.90 (0.00-0.90) K/UL Eos # (Auto) 0.24 (0.00-0.50) K/uL Baso # (Auto) 0.03 (0.00-0.30) K/uL Abs Immat Gran (auto) 0.18 (0.00-0.30) K/uL Imm/Tot Granulo (auto) 1.7 % Sodium 132 L (135-149) mmol/L Potassium 4.1 (3.6-5.1) mmol/L Chloride 101 (96-114) mmol/L Carbon Dioxide 24 (20-32) mmol/L Anion Gap 7 (7-15) mEq/L BUN 24 (7-30) mg/dL Creatinine 0.9 (0.5-1.5) mg/dL Estimated Creat Clear 72.20 Estimated GFR 95 ml/min Glucose 112 (60-115) mg/dL Lactate 0.7 (0.5-1.9) mmol/L Calcium 8.7 (8.4-10.6) mg/dL Total Bilirubin 0.5 (0.1-1.5) mg/dL AST 34 (12-35) U/L ALT 23 (4-50) U/L Alkaline Phosphatase 65 (40-150) U/L C-Reactive Protein 2.2 H (0.5-1.0) mg/dL Total Protein 6.4 (6.0-8.3) g/dL Albumin 3.9 (3.3-5.0) g/dL <Jennifer Villalta MD - Last Filed: 12/27/23 02:34> Imaging Data CT scan - abdomen: Attestation: I have reviewed the pertinent imaging results. <Kandi Turk MD - Last Filed: 12/27/23 01:45> Radiologist's impression: Lower chest: Mild atelectasis and/or scarring. Hepatobiliary: No significant parenchymal abnormality is appreciated. Unchanged hepatic hypodensities. Spleen: Unremarkable. Pancreas: No acute abnormality appreciated. Adrenal glands: No acute abnormality appreciated. Kidneys: Ureteral stents present. No hydronephrosis. Bowel: Partial bowel resection for ileal neobladder creation. Proximal to the anastomosis, there is severe small bowel wall thickening with upstream bowel dilation measuring up to 3.1 centimeters. The appendix is visualized and appears unremarkable. Vascular: Calcified atherosclerosis. Lymph nodes: Darrius dissection. Peritoneum: Free air and free fluid present. : Cystectomy and ileal neobladder creation. Ureteral stents terminate in the neobladder. Isaac catheter present. Soft tissues: Postoperative changes to the soft tissues. Bones: No acute fracture. No lytic or blastic lesion. Impression: Patient is status post cystectomy with ileal neobladder creation. There is free air and fluid within the abdomen; correlation for timeframe of surgery for evolving postsurgical air and fluid versus dehiscence is recommended. Otherwise, there is a loop of small bowel proximal to the ileal resection site demonstrating severe bowel wall thickening with upstream bowel dilation suspicious for a nonspecific enteritis and at least partial obstruction. <Kandi Turk MD - Last Filed: 12/27/23 01:45> Discharge Plan Discharge Clinical Impression: Small bowel obstruction, Abdominal pain, Complication, postoperative <Kandi Turk MD - Last Filed: 12/27/23 01:45> Patient Disposition: Xfer Other <Kandi Turk MD - Last Filed: 12/27/23 01:45> Discharge Location: [facility] <Kandi Turk MD - Last Filed: 12/27/23 01:45> Additional Instructions: Transferred to [facility] per urology <Kandi Turk MD - Last Filed: 12/27/23 01:45> Prescriptions: No Action albuterol 90 mcg/actuation aerosol 2 spray inhalation PRN nitrofurantoin monohyd/m-cryst 100 mg capsule 1 cap PO DAILY Eliquis 2.5 mg tablet 2.5 mg PO BID <Kandi Turk MD - Last Filed: 12/27/23 01:45> Stand Alone Forms: [facility] Info Instructions <Kandi Turk MD - Last Filed: 12/27/23 01:45>
--- NOTE | 2023-12-26 22:43 | CRLHL7_ITS ---
For Patients: As a result of the Century Cures Act, medical imaging exams and procedure reports are released immediately into your electronic medical record. You may view this report before your referring provider. If you have questions, please contact your health care provider. Indication: Status post cystectomy with postoperative pain Technique: CT through the abdomen and pelvis following 90 mL Isovue 370 IV contrast Comparison: CT urogram performed 05/26/2023 Findings: Lower chest: Mild atelectasis and/or scarring. Hepatobiliary: No significant parenchymal abnormality is appreciated. Unchanged hepatic hypodensities. Spleen: Unremarkable. Pancreas: No acute abnormality appreciated. Adrenal glands: No acute abnormality appreciated. Kidneys: Ureteral stents present. No hydronephrosis. Bowel: Partial bowel resection for ileal neobladder creation. Proximal to the anastomosis, there is severe small bowel wall thickening with upstream bowel dilation measuring up to 3.1 centimeters. The appendix is visualized and appears unremarkable. Vascular: Calcified atherosclerosis. Lymph nodes: Darrius dissection. Peritoneum: Free air and free fluid present. : Cystectomy and ileal neobladder creation. Ureteral stents terminate in the neobladder. Isaac catheter present. Soft tissues: Postoperative changes to the soft tissues. Bones: No acute fracture. No lytic or blastic lesion. Impression: Patient is status post cystectomy with ileal neobladder creation. There is free air and fluid within the abdomen; correlation for timeframe of surgery for evolving postsurgical air and fluid versus dehiscence is recommended. Otherwise, there is a loop of small bowel proximal to the ileal resection site demonstrating severe bowel wall thickening with upstream bowel dilation suspicious for a nonspecific enteritis and at least partial obstruction. Please note that all CT scans at this facility use dose modulation, iterative reconstruction, and/or weight-based dosing when appropriate to reduce radiation dose to as low as reasonably achievable. Dictated by Michael Ang MD @ 12/27/2023 12:51:24 AM (Electronically Signed)
--- OUTSIDE RECORDS SUMMARY | 2023-12-26 23:05 | XMS_ITS | Clinical Summary ---
Author Organization [place] Address [address] [place] [id number] Care Team Providers Care Group Cio Name Role Phone Alvaro Clark MD Unavailable No Ref-Primary, Physician Primary Care Provider Yessica Mcleod PA-C Unavailable Allergies Active Allergy Reactions Criticality Noted Date Comments Penicillins Nausea and Vomiting Medium 06/18/2023 Medications Medication Sig Dispensed Refills Start Date End Date Status acetaminophen-caffeine (EXCEDRIN TENSION HEADACHE) 500-65 MG TABS Take 2 tablets by mouth every 6 hours as needed for mild pain (PRN HEADACHE) Active diphenhydrAMINE HCl (BENADRYL ALLERGY PO) Take 1 tablet by mouth as needed Active acetaminophen (TYLENOL) 325 MG tabletIndications:Posto perative state,Post-op pain Take 2 tablets (650 mg) by mouth every 4 hours as needed for other (For optimal non-opioid multimodal pain management to improve pain control.) 50 tablet 4 Active apixaban ANTICOAGULANT (ELIQUIS) 2.5 MG tabletIndications:DVT-P E Prophylaxis Take 1 tablet (2.5 mg) by mouth 2 times daily 58 tablet 4 Active gabapentin (NEURONTIN) 100 MG capsuleIndications:Post operative state,Post-op pain Take 1 capsule (100 mg) by mouth 3 times daily as needed for other (post op pain) 14 capsule 4 Active methocarbamol (ROBAXIN) 750 MG tabletIndications:Posto perative state,Post-op pain Take 1 tablet (750 mg) by mouth every 6 hours as needed for muscle spasms 14 tablet 4 Active nitroFURantoin macrocrystal-monohydrat e (MACROBID) 100 MG capsuleIndications:Shiva operative Pharmacoprophylaxis Take 1 capsule (100 mg) by mouth daily 19 capsule 4 Active polyethylene glycol (MIRALAX) 17 GM/Dose powderIndications:Posto perative state Take 17 g by mouth daily 510 g 4 Active senna-docusate (SENOKOT-S/PERICOLACE) 8.6-50 MG tabletIndications:Posto perative state Take 1 tablet by mouth 2 times daily 40 tablet 4 Active tamsulosin (FLOMAX) 0.4 MG capsuleIndications:Hiram gn prostatic hyperplasia with urinary obstruction Take 2 capsules (0.8 mg) by mouth daily 180 capsule 1 4 12/11/19 24 Discontin ued(Med Rec(No AVS / No eCancel)) prochlorperazine (COMPAZINE) 10 MG tabletIndications:Uroth elial cancer (H) Take 1 tablet (10 mg) by mouth every 6 hours as needed for nausea or vomiting 30 tablet 2 4 12/11/19 24 Discontin ued(Med Rec(No AVS / No eCancel)) ondansetron (ZOFRAN) 8 MG tabletIndications:Uroth elial cancer (H) Take 1 tablet (8 mg) by mouth every 8 hours as needed for nausea (vomiting) 30 tablet 2 4 12/11/19 24 Discontin ued(Med Rec(No AVS / No eCancel)) dexAMETHasone (DECADRON) 4 MG tabletIndications:Uroth elial cancer (H) Take 2 tablets (8 mg) by mouth daily Take for 3 days, starting the day after chemo. Take with food. 6 tablet 2 4 12/11/19 24 Discontin ued(Med Rec(No AVS / No eCancel)) cetirizine (ZYRTEC) 10 MG tablet Take 10 mg by mouth daily 12/11/19 24 Discontin ued(Med Rec(No AVS / No eCancel)) ciprofloxacin (CIPRO) 500 MG tabletIndications:Posto perative state Take 1 tablet (500 mg) by mouth once for 1 dose Take prior to your appointment with Dr Clark for stent removal 1 tablet 4 12/25/19 24 Discontin ued(Stop at Discharge ) Active Problems Problem Noted Date Diagnosed Date Bladder cancer 12/22/2023 Urothelial cancer 09/06/2023 Lesion of bladder 07/10/2023 Encounters Date Type Department Care Team Description 12/26/2023 MyC Medical Advice [facility] [address] [facility] [place] [address] Alvaro Clark MD 12/22/2023 8:00 AM CDT - 12/22/2023 1:00 PM CDT Surgery [facility] [address] [place] [address] Alvaro Clark MD CYSTECTOMY, pelvic node dissection WITH ILEAL NEOBLADDER CREATION 12/22/2023 7:48 AM CDT Anesthesia Event [facility] [address] [place] [address] Alf Olson MD Johnson, Ashley Keryn, APRN COMMUNITY MARKETING COORDINATOR 12/22/2023 5:50 AM CDT - 12/25/2023 3:50 PM CDT Hospital Encounter [facility] [address] [place] [address] [place] [address] Alvaro Clark MD Postoperative state (Primary Dx); Bladder cancer (H); Urothelial cancer (H); Lesion of bladder; Post-op pain Discharge Disposition: Home or Self Care 12/11/2023 9:00 AM CDT Lab [facility] [address] 1[address] [place] [address] Preop examination; 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 (H) 12/11/2023 8:00 AM CDT Office Visit [facility] [address] 5th [place] [phone] Rizwana Tejeda APRN COMMUNITY MARKETING COORDINATOR Preop examination (Primary Dx); 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 (H) 12/11/2023 Travel 12/11/2023 PRE VISIT [facility] [address] [place] [address] Rizwana Tejeda, CARLOS COMMUNITY MARKETING COORDINATOR 12/08/2023 PRE VISIT [facility] [address] [place] [address] Rizwana Tejeda, AUDIT SPECIALIST COMMUNITY MARKETING COORDINATOR 12/01/2023 MyC Medical Advice [address] [facility] [place] [address] Sabra Wilcox 12/01/2023 Orders Only [address] [facility] [place] [address] Dylan Guerin PA Urothelial cancer (H) (Primary Dx) 11/27/2023 2:30 PM CDT Oncology Visit [address] [facility] [place] [address] Yessica Mcleod, RONALD Urothelial cancer (H) (Primary Dx); 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) Discharge Disposition: Home or Self Care 11/25/2023 10:56 AM CDT - 11/25/2023 2:17 PM CDT Hospital Encounter [facility] [address] [place] [phone] Non- Credentialed Provider, Radiology Kathryn Page MD Discharge Disposition: Home or Self Care 11/20/2023 11:00 AM CDT Office Visit [address] [facility] [place] [phone] Alvaro Clark MD Urothelial cancer (H) (Primary Dx) 11/20/2023 Orders Only [facility] [address] 4[address] [place] [phone] Alvaro Clark MD 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 (H) (Primary Dx) 11/20/2023 Travel 11/18/2023 Orders Only [facility] Services - Cancer Care Service Line [address] [place] [address] Ky Torres MD 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) (Primary Dx) 11/17/2023 MyC Medical Advice [facility] [address] [facility] Medical [place] [facility] [phone] Sixto Whalen APRN COMMUNITY MARKETING COORDINATOR 11/10/2023 1:48 PM CDT - 11/10/2023 11:59 PM CDT Hospital Encounter [facility] [address] [facility] [address] [place] [phone] Yessica Mcleod PA-C Left leg swelling Discharge Disposition: Home or Self Care 11/10/2023 8:30 AM CDT Infusion Therapy Visit [facility] [address] [place] [phone] Ky Torres MD Urothelial cancer (H) (Primary Dx) 11/10/2023 8:00 AM CDT Oncology Visit [address] [place] [phone] Yessica Mcleod PA-C Urothelial cancer (H) (Primary Dx); Left leg swelling 11/10/2023 7:45 AM CDT Lab [address] [place] [phone] Ky Torres MD Urothelial cancer (H) (Primary Dx) 11/10/2023 Travel 10/28/2023 9:00 AM CDT Infusion Therapy Visit [place] [address] [place] [address] [place] [phone] Yessica Mcleod PA-C Urothelial cancer (H) (Primary Dx) 10/27/2023 2:30 PM CDT Virtual Visit [facility] [address] [place] [address] Sixto Whalen APRN CNP Urothelial cancer (H) (Primary Dx); 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) 10/27/2023 12:30 PM CDT Lab [place] [address] [place] [address] [place] [phone] Yessica Mcleod PA-C Urothelial cancer (H) (Primary Dx) 10/27/2023 Travel 10/22/2023 Orders Only [facility] [place] [address] Luma Malcolm, [facility] 10/21/2023 9:00 AM CDT Ancillary Procedure [facility] [address] [place] [address] Ky Torres MD Urothelial cancer (H); 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) 10/21/2023 Travel 10/20/2023 Orders Only [facility] Services - Cancer Care Service Line [address] [place] [address] Ky Torres MD Urothelial cancer (H) (Primary Dx); 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) 10/13/2023 9:30 AM CDT Infusion Therapy Visit [address] [place] [phone] Yessica Mcleod PA-C Urothelial cancer (H) (Primary Dx) 10/13/2023 MyC Medical Advice [address] [place] [phone] Charlie Almonte RN Urothelial cancer (H) 10/12/2023 2:30 PM CDT Virtual Visit [facility] [address] [place] [phone] Sixto Whalen APRN CNP Urothelial cancer (H) (Primary Dx) 10/12/2023 12:30 PM CDT Lab [address] [place] [phone] Yessica Mcleod PA-C Urothelial cancer (H) (Primary Dx) 10/12/2023 Travel 10/07/[address] [place] [phone] Ky Torres MD 09/29/2023 8:00 AM CDT Infusion Therapy Visit [address] [place] [phone] Ky Torres MD Urothelial cancer (H) (Primary Dx) 09/29/2023 Telephone [facility] [address] [place] [address] [facility] [place] [phone] Ky Torres MD Symptoms 09/29/2023 Travel 09/28/2023 MyC Medical Advice [facility] [address] [place] [address] [facility] [place] [phone] Charlie Almonte RN Urothelial cancer (H) (Primary Dx) 09/26/2023 MyC Medical Advice [facility] [address] [facility] [place] [phone] Ky Torres MD from Last 3 Months Family History Medical History Relation Comments Bladder Cancer Father No Known Problems Mother Anesthesia Reaction No family hx of Thrombosis No family hx of Relation Status Comments Father Mother Alive Social History Tobacco Use Types Packs/Day Years Used Date Smoking Tobacco: Former Cigarettes 1.5 30 1 - 2009 Passive Smoke Exposure: Past Smokeless Tobacco: Never Alcohol Use Standard Drinks/Week Comments Never 0 (1 standard drink = 0.6 oz pur e alcohol) Adolescent Education Answer Date Record ed Getting School Help Needed Not on file 06/08 Sex and Gender Information Value Date Recorded Sex Assigned at Not on file Gender Identity Not on file Sexual Orientation Not on file Last Filed Vital Signs Vital Sign Reading Time Taken Comments Blood Pressure 103/67 12/25/2023 7:00 AM CDT Pulse 84 12/25/2023 7:00 AM CDT Temperature 37.1 ??C (98.7 ??F) 12/25/2023 7:00 AM CD T Respiratory Rate 16 12/25/2023 7:00 AM CDT Oxygen Saturation 97% 12/25/2023 7:00 AM CDT Inhaled Oxygen Concentration - - Weight 88 kg (194 lb 0.1 oz) 12/22/2023 6:16 AM CDT Height 172.7 cm (5' 8) 12/22/2023 6:16 AM CDT Body Mass Index 29.5 12/22/2023 6:16 AM CDT Plan of Treatment Upcoming Encounters Date Type Department Care Team (Late st Contact Info) Description 01/01/2024 9:45 AM CDT Office Visit [address] [place] [phone] Alvaro Clark MD 420 [facility] [address] [place], [place] [phone] 02/26/2024 7:45 AM CDT Lab [address] [place] [phone] Ky Torres MD 420 [facility] [address] [place], [place] [address] 02/26/2024 8:40 AM CDT Appointment [facility] [address] [facility] [address] [place] [phone] Yessica Mcleod PA-[place] [address] [place], [place] [address] 03/04/2024 8:00 AM CDT Oncology Visit [address] [place] [phone] Ky Torres MD [address] [place] [address] [address] [place], [place] [address] Health Maintenance Due Date Last Done Comments ADVANCE CARE PLANNING 1959 ANNUAL REVIEW OF HM ORDERS 1959 CT COLONOGRAPHY 1959 FIT 1959 FLEX SIG 1959 YEARLY PREVENTIVE VISIT 1959 sDNA (Cologuard) 1959 COVID-19 Vaccine (#1) 02/14/1964 Pneumococcal Vaccine: Pediatrics (0 to 5 Years) and At-Risk Patients (6 to 64 Years) (1 of 2 - PCV) 1965 COLONOSCOPY 1969 COLORECTAL CANCER SCREENING 1969 HIV SCREENING 1974 HEPATITIS C SCREENING 1977 ZOSTER IMMUNIZATION (1 of 2) 1978 LIPID 1999 RSV VACCINE ( & 60+) (1 - 1-dose 60+ series) 2019 INFLUENZA VACCINE (#1) 2024 LUNG CANCER SCREENING 11/24/2024 11/25/2023 , 10/21/2023, 09/21/2023, Additional history exists GLUCOSE 12/24/2026 12/25/2023, 11/30, 12/23/2023, Additional history exists DTAP/TDAP/TD IMMUNIZATION (4 - Td or Tdap) 02/28/2029 02/28/2019, 02/07/2013, 11/14/2006 PHQ-2 (once per calendar year) Completed 12/11/2023 HPV IMMUNIZATION Aged Out No longer e ligible based on patient's age to complete this topic IPV IMMUNIZATION Aged Out No longer e ligible based on patient's age to complete this topic MENINGITIS IMMUNIZATION Aged Out No l onger eligible based on patient's age to complete this topic RSV MONOCLONAL ANTIBODY Aged Out No l onger eligible based on patient's age to complete this topic Medical Devices Implanted Type Area First Line Production Supervisor Device Identifier Shelf Expiration Date Model / Serial / Lot Port-08/28/2023 Implanted:Qty: 1 on 08/28/2023 by Pipe Hernandez MD Port Right: Chest Wall [id number] 07/29/2026 / / [id number] Stent Ureteral Head Of Business Development Diversion 07fr [id number] - [id number] Implanted:Qty: 1 on 12/22/2023 by Alvaro Clark MD at [facility] Stent N/A: Abdomen [employer] [id number] 11/19/2026 [id number] / / [id number] Procedures Procedure Name Priority Date/Time Associated Diagnosis Comments CREATININE FLUID Timed 12/25/2023 10:2 8 AM CDT CBC WITH PLATELETS Routine 12/25/2023 6: 50 AM CDT BASIC METABOLIC PANEL Routine 12/25/2023 6:50 AM CDT PHOSPHORUS Add-On 12/24/2023 6:16 AM CDT MAGNESIUM Add-On 12/24/2023 6:16 AM CDT CBC WITH PLATELETS Routine 12/24/2023 6: 16 AM CDT BASIC METABOLIC PANEL Routine 12/24/2023 6:16 AM CDT CBC WITH PLATELETS Routine 12/23/2023 7: 04 AM CDT BASIC METABOLIC PANEL Routine 12/23/2023 7:04 AM CDT GLUCOSE BY METER Routine 12/23/2023 6:42 AM CDT PLATELET COUNT Routine 12/22/2023 9:55 PM CDT XR ABDOMEN PORT 1 VIEW Routine 3:16 PM CDT SURGICAL PATHOLOGY EXAM STAT 12/22/2023 8:54 AM CDT ANE AIRWAY ETT PERFORMABLE Routine 12/22/2023 8:02 AM CDT CYSTECTOMY,W/CONTINENT DIVERSION 12/22/2023 7:50 AM CDT 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 (H) GLUCOSE BY METER Routine 12/22/2023 6:55 AM CDT ABO/RH TYPE AND SCREEN STAT 4 6:47 AM CDT TYPE AND SCREEN, ADULT STAT 4 6:47 AM CDT ABO/RH TYPE AND SCREEN Routine 8:32 AM CDT Preop examination 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 (H) TYPE AND SCREEN, ADULT Routine 8:32 AM CDT Preop examination 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 (H) BASIC METABOLIC PANEL Routine 12/11/2023 8:32 AM CDT Preop examination 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 (H) CBC WITH PLATELETS Routine 12/11/2023 8: 32 AM CDT Preop examination 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 (H) CT CHEST/ABDOMEN/PELVIS W CONTRAST Routine 11/25/2023 12:03 PM CDT 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) US LOWER EXTREMITY VENOUS DUPLEX LEFT STAT 11/10/2023 2:17 PM CDT Left leg swelling CBC WITH PLATELETS & DIFFERENTIAL Routine 11/10/2023 7:33 AM CDT Urothelial cancer (H) DIFFERENTIAL Routine 11/10/2023 7:33 AM CDT Urothelial cancer (H) CBC WITH PLATELETS AND DIFFERENTIAL Routine 11/10/2023 7:33 AM CDT Urothelial cancer (H) MAGNESIUM Routine 11/10/2023 7:33 AM CDT Urothelial cancer (H) COMPREHENSIVE METABOLIC PANEL Routine 11/10/2023 7:33 AM CDT Urothelial cancer (H) CBC WITH PLATELETS & DIFFERENTIAL Routine 10/27/2023 12:25 PM CDT Urothelial cancer (H) DIFFERENTIAL Routine 10/27/2023 12:25 PM CDT Urothelial cancer (H) CBC WITH PLATELETS AND DIFFERENTIAL Routine 10/27/2023 12:25 PM CDT Urothelial cancer (H) MAGNESIUM Routine 10/27/2023 12:25 PM CDT Urothelial cancer (H) COMPREHENSIVE METABOLIC PANEL Routine 10/27/2023 12:25 PM CDT Urothelial cancer (H) PET ONCOLOGY (EYES TO THIGHS) Routine 10/21/2023 10:57 AM CDT Urothelial cancer (H) 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) GLUCOSE WHOLE BLOOD POCT Routine 10/21/2023 8:50 AM CDT Urothelial cancer (H) 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) CT COLLECTION VENOUS BLOOD VENIPUNCTURE Routine 10/21/2023 8:38 AM CDT Urothelial cancer (H) 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) CBC WITH PLATELETS & DIFFERENTIAL Routine 10/12/2023 11:59 AM CDT Urothelial cancer (H) DIFFERENTIAL Routine 10/12/2023 11:59 AM CDT Urothelial cancer (H) CBC WITH PLATELETS AND DIFFERENTIAL Routine 10/12/2023 11:59 AM CDT Urothelial cancer (H) MAGNESIUM Routine 10/12/2023 11:59 AM CDT Urothelial cancer (H) COMPREHENSIVE METABOLIC PANEL Routine 10/12/2023 11:59 AM CDT Urothelial cancer (H) CBC WITH PLATELETS & DIFFERENTIAL Routine 09/29/2023 8:14 AM CDT Urothelial cancer (H) CBC WITH PLATELETS AND DIFFERENTIAL Routine 09/29/2023 8:14 AM CDT Urothelial cancer (H) MAGNESIUM Routine 09/29/2023 8:14 AM CDT Urothelial cancer (H) COMPREHENSIVE METABOLIC PANEL Routine 09/29/2023 8:14 AM CDT Urothelial cancer (H) from Last 3 Months Results * Creatinine fluid (12/25/2023 10:28 AM CDT) Creatinine Fluid Source Abdomen 12/25/2023 11:02 AM CDT [facility] Creatinine fluid 0.8 mg/dL 12/25/2023 11:02 AM CDT [facility] Body fluid, unsp DRAIN / Unknown Non-blood Collection / Unknown 12/25/2023 10:28 AM CDT 12/25/2023 10:37 AM CDT Narrative [facility] - 12/25/2023 11:02 AM CDT No reference ranges have been established. This result should be interpreted in the context of the patient's clinical condition and compared to simultaneous measurement in the patient's blood. This is a lab developed test. It has not been cleared or approved by the FDA. FDA clearance is not required for clinical use. Alberto Tejeda MD LAB - BODY FLUIDS OR DERABLES [facility] Lab [address] [facility], [address] [place] [address] * (ABNORMAL) Basic metabolic panel (12/25/2023 6:50 AM CDT) Only the most recent of4 resultswithin the time period is included. Sodium 134(L) 135 - 145 mmol/L 12/25/2023 7:35 AM CDT [facility] Potassium 4.5 3.4 - 5.3 mmol/L 12/25/2023 7:35 AM CDT [facility] Chloride 100 98 - 107 mmol/L 12/25/2023 7:35 AM CDT [facility] Carbon Dioxide (CO2) 28 22 - 29 mmol/L 12/25/2023 7:35 AM CDT [facility] Anion Gap 6(L) 7 - 15 mmol/L 12/25/2023 7:35 AM CDT [facility] Urea Nitrogen 20.9 8.0 - 23.0 mg/dL 12/25/2023 7:35 AM CDT [facility] Creatinine 0.89 0.67 - 1.17 mg/dL 12/25/2023 7:35 AM CDT [facility] GFR Estimate >90 >60 mL/min/1.7 3m2 12/25/2023 7:35 AM CDT [facility] Comment:eGFR calculated usin 2020 CKD-EPI equation. Calcium 8.3(L) 8.8 - 10.4 mg/dL 12/25/2023 7:35 AM CDT [facility] Comment:Reference intervals for this test were updated on 12/15/2023 to reflect our healthy population more accurately. There may be differences in the flagging of prior results with similar values performed with this method. Those prior results can be interpreted in the context of the updated reference intervals. Glucose 113(H) 70 - 99 mg/dL 12/25/2023 7:35 AM CDT [facility] Blood (Portacath) IVAD (Port) / Unknown 12/25/2023 6:50 AM CDT 12/25/2023 7:02 AM CDT Alberto Tejeda MD LAB - BLOOD ORDERABL ES [facility] [place] Core [facility] [address] [facility], [address] [place], [place] [phone] * (ABNORMAL) CBC with platelets (12/25/2023 6:50 AM CDT) Only the most recent of4 resultswithin the time period is included. WBC Count 9.0 4.0 - 11.0 10e3/uL 12/25/2023 7:16 AM CDT [facility] RBC Count 2.88(L) 4.40 - 5.90 10e6/uL 12/25/2023 7:16 AM CDT [facility] Hemoglobin 8.8(L) 13.3 - 17.7 g/dL 12/25/2023 7:16 AM CDT [facility] Hematocrit 26.4(L) 40.0 - 53.0 % 12/25/2023 7:16 AM CDT [facility] MCV 92 78 - 100 fL 12/25/2023 7:16 AM CDT [facility] MCH 30.6 26.5 - 33.0 pg 12/25/2023 7:16 AM CDT [facility] MCHC 33.3 31.5 - 36.5 g/dL 12/25/2023 7:16 AM CDT [facility] RDW 14.9 10.0 - 15.0 % 12/25/2023 7:16 AM CDT [facility] Platelet Count 172 150 - 450 10e3/uL 12/25/2023 7:16 AM CDT [facility] Blood (Portacath) IVAD (Port) / Unknown 12/25/2023 6:50 AM CDT 12/25/2023 7:03 AM CDT Alberto Tejeda MD LAB - BLOOD ORDERABL ES [facility] [place] [facility] [address] [facility], [address] * Phosphorus (12/24/2023 6:16 AM CDT) Phosphorus 2.9 2.5 - 4.5 mg/dL 12/24/2023 7:26 AM CDT [facility] Blood (Portacath) IVAD (Port) / Unknown 12/24/2023 6:16 AM CDT 12/24/2023 6:41 AM CDT Alberto Tejeda MD LAB - BLOOD ORDERABL ES LAB[facility] Core Lab [address] [facility], [address] * Magnesium (12/24/2023 6:16 AM CDT) Only the most recent of5 resultswithin the time period is included. Magnesium 1.8 1.7 - 2.3 mg/dL 12/24/2023 10:59 AM CDT [facility] Blood (Portacath) IVAD (Port) / Unknown 12/24/2023 6:16 AM CDT 12/24/2023 6:41 AM CDT Alberto Tejeda MD LAB - BLOOD ORDERABL ES Performing Organization Address [facility] de Phone Number [facility] [place] Core [facility] [address] [facility], [address] [phone] * (ABNORMAL) Glucose by meter (12/23/2023 6:42 AM CDT) Only the most recent of2 resultswithin the time period is included. GLUCOSE BY METER POCT 118(H) 70 - 99 mg/dL 12/23/2023 6:49 AM CDT [facility] POC Blood, Capillary BLOOD SPECIMEN / Unknown 12/23/2023 6:42 AM CDT 12/23/2023 6:49 AM CDT Alvaro Clark MD LAB - BEAKER POCT Performing Organization Address [facility] de Phone Number LABORATORY POC [facility] [place] Core [facility] [address] [facility], [address] [place] [phone] * Platelet count (12/22/2023 9:55 PM CDT) Platelet Count 179 150 - 450 10e3/uL 12/22/2023 10:12 PM CDT [facility] Blood STRUCTURE OF RIGHT HAND / Unknown IVAD (Port) / Unknown 12/22/2023 9:55 PM CDT 12/22/2023 10:04 PM CDT Alberto Tejeda MD LAB - BLOOD ORDERABL ES Performing Organization Address [facility] Co de Phone Number [facility] [place] [facility] [address] [facility], [address] [phone] * XR Abdomen Port 1 View (12/22/2023 3:16 PM CDT) Anatomical Region Laterality Modality Abdomen/Pelvis Computed Radiogr aphy Impressions 12/22/2023 3:50 PM CDT IMPRESSION: Ureteral stents project over the expected location of the UPJ bilaterally. I have personally reviewed the examination and initial interpretation and I agree with the findings. ALF MEHTA DO Narrative 12/22/2023 3:50 PM CDT EXAMINATION: ??XR ABDOMEN PORT 1 VIEW 12/22/2023 COMPARISON: CT 11/25/2023.. HISTORY: Eval ureteral stent position. FINDINGS: Supine frontal radiograph of the abdomen and pelvis. Ureteral stents project over the expected location of the renal pelvises bilaterally, and courses caudad with termini projecting at expected location of the neobladder. Surgical drain projects over the left alar wing. Numerous surgical clips throughout the mid pelvis No abnormally dilated loops of bowel, or pneumatosis in the visualized abdomen.. No portal venous gas. Procedure Note Alf Mehta MD - 12/22/2023 EXAMINATION: XR ABDOMEN PORT 1 VIEW 12/22/2023 COMPARISON: CT 11/25/2023.. HISTORY: Eval ureteral stent position. FINDINGS: Supine frontal radiograph of the abdomen and pelvis. Ureteral stents project over the expected location of the renal pelvises bilaterally, and courses caudad with termini projecting at expected location of the neobladder. Surgical drain projects over the left alar wing. Numerous surgical clips throughout the mid pelvis No abnormally dilated loops of bowel, or pneumatosis in the visualized abdomen.. No portal venous gas. IMPRESSION: Ureteral stents project over the expected location of the UPJ bilaterally. I have personally reviewed the examination and initial interpretation and I agree with the findings. ALF MEHTA DO Alberto Tejeda MD IMG DIAGNOSTIC IMAGI NG ORDERABLES * ANE AIRWAY ETT PERFORMABLE (12/22/2023 8:02 AM CDT) Narrative Nessa Pereira APRN [employer] - 12/22/2023 8:02 AM CDT Nessa Pereira APRN [employer] ? 12/22/2023 ??8:22 AM Airway ? Patient location during procedure: OR ? Procedure Start/Stop Times: 12/22/2023 8:02 AM Staff - ? [employer]: Nessa Pereira APRN [employer] ? Performed By: CRNAIndications and Patient Condition ? Indications for airway management: shiva-procedural ? Induction type:intravenous ? Mask difficulty assessment: 0 - not attempted Final Airway Details ? Final airway type: endotracheal airway ? Successful airway: ETT - single Endotracheal Airway Details ? ETT size (mm): 7.5 ? Cuffed: yes ? Cuff volume (mL): 7 ? Successful intubation technique: direct laryngoscopy ? DL Blade Type: Cowan 2 ? Grade View of Cords: 1 ? Position: Right ? Measured from: lips ? Secured at (cm): 23 ? Bite block used: None Post intubation assessment ? Placement verified by: capnometry, equal breath sounds and chest rise ? Number of attempts at approach: 1 ? Number of other approaches attempted: 0 ? Secured with: tape ? Ease of procedure: easy ? Dentition: Intact and Unchanged Medication(s) Administered Medication Administration Time: 12/22/2023 8:02 AM Alf Olson MD CT ANESTHESIA * Adult Type and Screen (12/22/2023 6:47 AM CDT) Only the most recent of2 resultswithin the time period is included. ABO/RH(D) A NEG 12/22/2023 6:16 AM CDT U BLOOD BANK Antibody Screen Negative Negative 12/22/2023 6:16 AM CDT BLOOD BANK SPECIMEN EXPIRATION DATE [id number] 12/22/2023 6:16 AM CDT BLOOD BANK Blood STRUCTURE OF RIGHT HAND / Unknown Venipuncture / Unknown 12/22/2023 6:47 AM CDT 12/22/2023 6:56 AM CDT Alvaro Clark MD LAB - BLOOD BANK [facility] ORDER BLOOD BANK [address] [place] [address], [facility] * CT Chest/Abdomen/Pelvis w Contrast (11/25/2023 12:03 PM CDT) Anatomical Region Laterality Modality Abdomen/Pelvis, Chest, SUBRA D CT BODY, UMP CT CHEST, UMP CT ABDOMEN PELVIS, RAD CT Computed Tomography Impressions 11/25/2023 4:07 PM CDT IMPRESSION: 1. ??No evidence of metastatic disease in the chest, abdomen, or pelvis. 2. ??Mildly prominent mediastinal and bilateral hilar lymph nodes are most likely benign and unchanged from previous. KATHRYN PAGE MD Narrative 11/25/2023 4:[address] CHEST/ABDOMEN/PELVIS WITH CONTRAST ??11/25/2023 12:03 PM CLINICAL HISTORY: Post completion of neoadjuvant chemotherapy. 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). TECHNIQUE: CT scan of the chest, abdomen, and pelvis was performed following injection of IV contrast. Multiplanar reformats were obtained. Dose reduction techniques were used. CONTRAST: 93 mL Isovue-370 COMPARISON: 10/21/2023 FINDINGS: LUNGS AND PLEURA: Moderate emphysema. No pulmonary nodules. MEDIASTINUM/AXILLAE: Right IJ port. Mildly prominent subcarinal and bilateral hilar lymph nodes are unchanged. Mild coronary artery calcification. HEPATOBILIARY: Multiple benign hepatic cysts. PANCREAS: Normal. SPLEEN: Normal. ADRENAL GLANDS: Normal. KIDNEYS/BLADDER: Normal kidneys. No hydronephrosis. No visible bladder mass. BOWEL: Scattered colonic diverticula. PELVIC ORGANS: Normal. ADDITIONAL FINDINGS: No lymphadenopathy. MUSCULOSKELETAL: Normal. Procedure Note Kathryn Page MD - 11/25/2023 CT CHEST/ABDOMEN/PELVIS WITH CONTRAST 11/25/2023 12:03 PM CLINICAL HISTORY: Post completion of neoadjuvant chemotherapy. 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). TECHNIQUE: CT scan of the chest, abdomen, and pelvis was performed following injection of IV contrast. Multiplanar reformats were obtained. Dose reduction techniques were used. CONTRAST: 93 mL Isovue-370 COMPARISON: 10/21/2023 FINDINGS: LUNGS AND PLEURA: Moderate emphysema. No pulmonary nodules. MEDIASTINUM/AXILLAE: Right IJ port. Mildly prominent subcarinal and bilateral hilar lymph nodes are unchanged. Mild coronary artery calcification. HEPATOBILIARY: Multiple benign hepatic cysts. PANCREAS: Normal. SPLEEN: Normal. ADRENAL GLANDS: Normal. KIDNEYS/BLADDER: Normal kidneys. No hydronephrosis. No visible bladder mass. BOWEL: Scattered colonic diverticula. PELVIC ORGANS: Normal. ADDITIONAL FINDINGS: No lymphadenopathy. MUSCULOSKELETAL: Normal. IMPRESSION: 1. No evidence of metastatic disease in the chest, abdomen, or pelvis. 2. Mildly prominent mediastinal and bilateral hilar lymph nodes are most likely benign and unchanged from previous. KATHRYN PAGE MD Ky Torres MD IMG CT ORDERABLES * US Lower Extremity Venous Duplex Left (11/10/2023 2:17 PM CDT) Anatomical Region Laterality Modality Vascular, Thigh, Leg Ultrasound Impressions 11/10/2023 3:47 PM CDT IMPRESSION: No evidence of deep venous thrombosis in the left lower extremity. KANDI MCCLAIN DO Narrative 11/10/2023 3:47 PM CDT ULTRASOUND LEFT LOWER EXTREMITY VENOUS DUPLEX November 10, 2023 2:17 PM CLINICAL HISTORY/INDICATION: Left leg swelling. COMPARISON: None relevant. TECHNIQUE: Grayscale, color-flow, and spectral waveform analysis were performed of the deep veins of the left lower extremity FINDINGS: The left common femoral, great saphenous, femoral, popliteal, and tibial veins demonstrate normal compressibility, spectral waveform, color flow and augmentation. The contralateral right common femoral vein demonstrates normal compressibility, spectral waveform, color flow and augmentation. Procedure Note Kandi Mcclain, - 11/10/2023 ULTRASOUND LEFT LOWER EXTREMITY VENOUS DUPLEX November 10, 2023 2:17 PM CLINICAL HISTORY/INDICATION: Left leg swelling. COMPARISON: None relevant. TECHNIQUE: Grayscale, color-flow, and spectral waveform analysis were performed of the deep veins of the left lower extremity FINDINGS: The left common femoral, great saphenous, femoral, popliteal, and tibial veins demonstrate normal compressibility, spectral waveform, color flow and augmentation. The contralateral right common femoral vein demonstrates normal compressibility, spectral waveform, color flow and augmentation. IMPRESSION: No evidence of deep venous thrombosis in the left lower extremity. KANDI MCCLAIN DO Yessica L Cheng Guggisberg PA-C IMG US ORDERABLES * (ABNORMAL) CBC with platelets and differential (11/10/2023 7:33 AM CDT) Only the most recent of4 resultswithin the time period is included. WBC Count 14.8(H) 4.0 - 11.0 10e3/uL 11/10/2023 8:09 AM CDT [facility] RBC Count 4.04(L) 4.40 - 5.90 10e6/uL 11/10/2023 8:09 AM CDT [facility] Hemoglobin 11.4(L) 13.3 - 17.7 g/dL 11/10/2023 8:09 AM CDT [facility] Hematocrit 35.3(L) 40.0 - 53.0 % 11/10/2023 8:09 AM CDT [facility] MCV 87 78 - 100 fL 11/10/2023 8:09 AM CDT [facility] MCH 28.2 26.5 - 33.0 pg 11/10/2023 8:09 AM CDT [facility] MCHC 32.3 31.5 - 36.5 g/dL 11/10/2023 8:09 AM CDT [facility] RDW 14.2 10.0 - 15.0 % 11/10/2023 8:09 AM CDT [facility] Platelet Count 158 150 - 450 10e3/uL 11/10/2023 8:09 AM CDT [facility] % Neutrophils 11/10/2023 8:09 AM CDT [facility] % Lymphocytes 11/10/2023 8:09 AM CDT [facility] % Monocytes 11/10/2023 8:09 AM CDT [facility] % Eosinophils 11/10/2023 8:09 AM CDT [facility] % Basophils 11/10/2023 8:09 AM CDT [facility] % Immature Granulocytes 11/10/2023 8:09 AM CDT [facility] NRBCs per 100 WBC 0 <1 /100 024 8:09 AM CDT [facility] Absolute Neutrophils 11/10/2023 8:09 AM CDT [facility] Absolute Lymphocytes 11/10/2023 8:09 AM CDT [facility] Absolute Monocytes 11/10/2023 8:09 AM CDT [facility] Absolute Eosinophils 11/10/2023 8:09 AM CDT [facility] Absolute Basophils 11/10/2023 8:09 AM CDT [facility] Absolute Immature Granulocytes 11/10/2023 8:09 AM CDT [facility] Absolute NRBCs 0.0 10e3/uL 11/10/2023 8:09 AM CDT [facility] Blood BLOOD SPECIMEN / Unknown IVAD (Port) / Unknown 11/10/2023 7:33 AM CDT 11/10/2023 7:42 AM CDT Yessica Haynes PA-C LAB - B LOOD ORDERABLES [facility] [address] Lab (1st floor, no room number) [place] [address] * (ABNORMAL) Manual Differential (11/10/2023 7:33 AM CDT) Only the most recent of3 resultswithin the time period is included. % Neutrophils 63 % 11/10/2023 8:10 AM CDT [facility] % Lymphocytes 16 % 11/10/2023 8:10 AM CDT [facility] % Monocytes 4 % 11/10/2023 8:10 AM CDT [facility] % Eosinophils 5 % 11/10/2023 8:10 AM CDT [facility] % Basophils 0 % 11/10/2023 8:10 AM CDT [facility] % Metamyelocytes 7 % 11/10/19 24 8:10 AM CDT [facility] % Myelocytes 4 % 11/10/2023 8:10 AM CDT [facility] % Plasma Cells 1 % 11/10/2023 8:10 AM CDT [facility] NRBCs per 100 WBC 1(H) <=0 % 024 8:10 AM CDT [facility] Absolute Neutrophils 9.3(H) 1.6 - 8.3 10e3/uL 11/10/2023 8:10 AM CDT [facility] Absolute Lymphocytes 2.4 0.8 - 5.3 10e3/uL 11/10/2023 8:10 AM CDT [facility] Absolute Monocytes 0.6 0.0 - 1.3 10e3/uL 11/10/2023 8:10 AM CDT [facility] Absolute Eosinophils 0.7 0.0 - 0.7 10e3/uL 11/10/2023 8:10 AM CDT [facility] Absolute Basophils 0.0 0.0 - 0.2 10e3/uL 11/10/2023 8:10 AM CDT [facility] Absolute Metamyelocytes 1.0(H) <=0.0 10e3/uL 11/10/2023 8:10 AM CDT [facility] Absolute Myelocytes 0.6(H) <=0.0 10e3/uL 11/10/2023 8:10 AM CDT [facility] Absolute Plasma Cells 0.1(H) <=0.0 10e3/uL 11/10/2023 8:10 AM CDT [facility] Absolute NRBCs 0.1(H) <=0.0 10e3/uL 11/10/2023 8:10 AM CDT [facility] RBC Morphology Confirmed RBC Indices 11/10/2023 8:10 AM CDT [facility] Platelet Assessment Automated Count Confirmed. Platelet morphology is normal. Automated Count Confirmed. Platelet morphology is normal. 11/10/2023 8:10 AM CDT [facility] Polychromasia Slight(A) None Seen 11/10/2023 8:10 AM CDT [facility] Reactive Lymphocytes Present(A) None Seen 11/10/2023 8:10 AM CDT [facility] Teardrop Cells Slight(A) None Seen 11/10/2023 8:10 AM CDT [facility] Toxic Neutrophils Present(A) None Seen 024 8:10 AM CDT [facility] Blood BLOOD SPECIMEN / Unknown IVAD (Port) / Unknown 11/10/2023 7:33 AM CDT 11/10/2023 7:42 AM CDT Yessica Haynes PA-C LAB - B LOOD ORDERABLES [facility] [address] Lab (1st floor, no room number) [place] [address] * (ABNORMAL) Comprehensive metabolic panel (11/10/2023 7:33 AM CDT) Only the most recent of4 resultswithin the time period is included. Sodium 140 135 - 145 mmol/L 11/10/2023 8:14 AM CDT [facility] Comment:Reference intervals for this test were updated on 02/24/2023 to more accurately reflect our healthy population. There may be differences in the flagging of prior results with similar values performed with this method. Interpretation of those prior results can be made in the context of the updated reference intervals. Potassium 4.0 3.4 - 5.3 mmol/L 11/10/2023 8:14 AM CDT [facility] Carbon Dioxide (CO2) 27 22 - 29 mmol/L 11/10/2023 8:14 AM CDT [facility] Anion Gap 9 7 - 15 mmol/L 11/10/2023 8:14 AM CDT [facility] Urea Nitrogen 13.9 8.0 - 23.0 mg/dL 11/10/2023 8:14 AM CDT [facility] Creatinine 0.74 0.67 - 1.17 mg/dL 11/10/2023 8:14 AM CDT [facility] GFR Estimate >90 >60 mL/min/1. 73m2 11/10/2023 8:14 AM CDT [facility] Calcium 8.8 8.8 - 10.2 mg/dL 11/10/2023 8:14 AM CDT [facility] Chloride 104 98 - 107 mmol/L 11/10/2023 8:14 AM CDT [facility] Glucose 104(H) 70 - 99 mg/dL 11/10/2023 8:14 AM CDT [facility] Alkaline Phosphatase 142 40 - 150 U/L 11/10/2023 8:14 AM CDT [facility] AST 23 0 - 45 U/L 11/10/2023 8:14 AM CDT [facility] Comment:Reference intervals for this test were updated on 11/10/2022 to more accurately reflect our healthy population. There may be differences in the flagging of prior results with similar values performed with this method. Interpretation of those prior results can be made in the context of the updated reference intervals. ALT 21 0 - 70 U/L 11/10/2023 8:14 AM CDT [facility] Comment:Reference intervals for this test were updated on 11/10/2022 to more accurately reflect our healthy population. There may be differences in the flagging of prior results with similar values performed with this method. Interpretation of those prior results can be made in the context of the updated reference intervals. Protein Total 6.3(L) 6.4 - 8.3 g/dL 11/10/2023 8:14 AM CDT [facility] Albumin 3.8 3.5 - 5.2 g/dL 11/10/2023 8:14 AM CDT [facility] Bilirubin Total <0.2 <=1.2 mg/dL 11/10/2023 8:14 AM CDT [facility] Blood BLOOD SPECIMEN / Unknown IVAD (Port) / Unknown 11/10/2023 7:33 AM CDT 11/10/2023 7:42 AM CDT Yessica Haynes PA-C LAB - B LOOD ORDERABLES LABORATORY [facility] [address] Lab (1st floor, no room number) [place] [address] * PET Oncology (Eyes to Thighs) (10/21/2023 10:57 AM CDT) Anatomical Region Laterality Modality Whole Body, SUBRAD CT BODY, UMP NUC MED Positron Emission Tomography (PET) Impressions 10/22/2023 6:27 AM CDT IMPRESSION: In this patient with urothelial carcinoma of the bladder status post chemotherapy FDG PET CT shows: 1. Decreased size, FDG avidity and metabolic tumor volume of bladder neck mass, compatible with partial response to treatment. 2. No evidence of new local jessica or distant metastasis. 3. Decreased FDG uptake in multiple mediastinal and hilar lymph nodes. Favored to be inflammatory or due to Sarcoid like reactions. Attention on follow-up. 4. Persistent FDG uptake near the periapical lucency of the left mandibular second molar. Dental consultation is recommended. I have personally reviewed the examination and initial interpretation and I agree with the findings. ALEAH MORALES MD Narrative 10/22/2023 6:27 AM CDT Combined Report of: PET and CT on 10/21/2023 10:57 AM: 1. PET of the neck, chest, abdomen, and pelvis. 2. PET CT Fusion for Attenuation Correction and Anatomical Localization. 3. Diagnostic CT of the chest, abdomen and pelvis with intravenous contrast obtained for diagnostic interpretation. 4. 3D MIP and PET-CT fused images were processed on an independent workstation and archived to PACS and reviewed by a radiologist. Technique: 1. PET: The patient received 14.09 mCi of F-18-FDG. The serum glucose was 85 mg/dL prior to administration. Body weight was 89.8 kg. Images were evaluated in the axial, sagittal, and coronal planes as well as the rotational whole body MIP. Images were acquired from cranial vertex to feet. UPTAKE WAS MEASURED AT [address]: Volumetric acquisition for clinical interpretation of the chest, abdomen, and pelvis acquired at 3 mm sections. The chest, abdomen, and pelvis were evaluated at 5 mm sections in bone, soft tissue, and lung windows. Contrast and Medications: IV contrast: 118 mL of Isovue 370 intravenously. PO contrast: 500 mL water Additional Medications: The patient received 40 mg intravenous Lasix, after which additional postvoid PET and CT images were obtained. 3. 3D MIP and PET-CT fused images were processed on an independent workstation and archived to PACS and reviewed by a radiologist. INDICATION: Muscle invasive bladder cancer on neoadjuvant chemo with ddMVAC - response assessment after 2 cycles; Urothelial cancer (H); 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). ADDITIONAL INFORMATION OBTAINED FROM EMR: 63-year-old male with history of high-grade urothelial carcinoma of the urinary bladder. Treatment response status post chemotherapy. COMPARISON: 09/21/2023 FINDINGS: BACKGROUND: Liver SUV max = 3.91, Aorta Blood SUV max = 2.70. HEAD/NECK: Focal FDG uptake near the periapical lucency of left mandibular second molar (SUV max 6.74). Pharyngeal mucosal spaces: Nasopharynx and palatine tonsils are within normal limits. Tongue base is normal. Oral tongue and buccal mucosa of the oral cavity is normal. Oropharynx, hypopharynx and larynx are within normal limits. Sinonasal region: Paranasal sinuses are clear. No mass within the nasal cavity. Lymph nodes: No FDG avid or abnormally enlarged lymph nodes. Salivary glands: The major salivary glands are within normal limits. Thyroid gland: The thyroid gland is within normal limits. Vascular structures: The major vasculature of the neck are patent. Brain: No abnormal FDG avid lesion or abnormal enhancement. Posterior fossa arachnoid cyst. CHEST: Right chest wall Port-A-Cath terminates at the superior cavoatrial junction. Lymph nodes: Overall decreased FDG uptake within multiple mediastinal and bilateral hilar lymph nodes (SUV max 6.18, previously 7.44). They are not enlarged. Lungs: The central tracheobronchial tree is clear. No acute consolidation. ??No pleural effusion or pneumothorax. Similar appearance of pleural calcification in the left upper lobe. 2 mm solid pulmonary nodule in the right upper lobe on image 47, series 11 is stable. Heart and great vessels: Heart size is within normal limits. No pericardial effusion. The thoracic aorta and main pulmonary artery are within normal limits. The esophagus is unremarkable. ABDOMEN AND PELVIS: Liver: Multiple subcentimeter hypoenhancing foci throughout the liver are similar to prior with no significant FDG uptake, too small to chractarize. No intrahepatic or extrahepatic biliary ductal dilatation. Gallbladder is within normal limits. Pancreas: The pancreas is within normal limits. No pancreatic ductal dilatation. Spleen: No FDG avid lesion. Adrenal glands: No FDG avid foci. Kidneys: No FDG avid lesion. No hydronephrosis. Urinary bladder: Hypermetabolic mass in the urinary bladder neck, extending caudally to involve the prostatic urethra and cranially into the urinary bladder lumen, overall is decreased in extent and size and FDG avidity. Decreased size and FDG uptake of the previously seen soft tissue mass centered about the urinary bladder neck extending to involve prostatic urethra (SUV max 19.19, previously 32.27; hypermetabolic tumor volume 3.5 cc now, versus 11.3 cc previously). Reproductive organs are within normal limits. Gastrointestinal system: Normal caliber of the small and large bowel. Lymph nodes: No FDG avid or abnormally enlarged lymph nodes. Vascular structures: Normal caliber of the abdominal aorta. No free air, free fluid, or fluid collection. EXTREMITIES: No abnormal FDG uptake in the visualized extremities. BONES AND SOFT TISSUES: Extensive diffuse bone marrow uptake new since prior PET, likely sequela of recent G-CSF treatment. No abnormal lytic or blastic osseous lesions. Bilateral healed rib fractures. SPINAL CANAL: No evident canal compromise. No abnormal FDG avid lesion. Procedure Note Aleah Morales MD - 10/22/2023 Combined Report of: PET and CT on 10/21/2023 10:57 AM: 1. PET of the neck, chest, abdomen, and pelvis. 2. PET CT Fusion for Attenuation Correction and Anatomical Localization. 3. Diagnostic CT of the chest, abdomen and pelvis with intravenous contrast obtained for diagnostic interpretation. 4. 3D MIP and PET-CT fused images were processed on an independent workstation and archived to PACS and reviewed by a radiologist. Technique: 1. PET: The patient received 14.09 mCi of F-18-FDG. The serum glucose was 85 mg/dL prior to administration. Body weight was 89.8 kg. Images were evaluated in the axial, sagittal, and coronal planes as well as the rotational whole body MIP. Images were acquired from cranial vertex to feet. UPTAKE WAS MEASURED AT [address]: Volumetric acquisition for clinical interpretation of the chest, abdomen, and pelvis acquired at 3 mm sections. The chest, abdomen, and pelvis were evaluated at 5 mm sections in bone, soft tissue, and lung windows. Contrast and Medications: IV contrast: 118 mL of Isovue 370 intravenously. PO contrast: 500 mL water Additional Medications: The patient received 40 mg intravenous Lasix, after which additional postvoid PET and CT images were obtained. 3. 3D MIP and PET-CT fused images were processed on an independent workstation and archived to PACS and reviewed by a radiologist. INDICATION: Muscle invasive bladder cancer on neoadjuvant chemo with ddMVAC - response assessment after 2 cycles; Urothelial cancer (H); 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). ADDITIONAL INFORMATION OBTAINED FROM EMR: 63-year-old male with history of high-grade urothelial carcinoma of the urinary bladder. Treatment response status post chemotherapy. COMPARISON: 09/21/2023 FINDINGS: BACKGROUND: Liver SUV max = 3.91, Aorta Blood SUV max = 2.70. HEAD/NECK: Focal FDG uptake near the periapical lucency of left mandibular second molar (SUV max 6.74). Pharyngeal mucosal spaces: Nasopharynx and palatine tonsils are within normal limits. Tongue base is normal. Oral tongue and buccal mucosa of the oral cavity is normal. Oropharynx, hypopharynx and larynx are within normal limits. Sinonasal region: Paranasal sinuses are clear. No mass within the nasal cavity. Lymph nodes: No FDG avid or abnormally enlarged lymph nodes. Salivary glands: The major salivary glands are within normal limits. Thyroid gland: The thyroid gland is within normal limits. Vascular structures: The major vasculature of the neck are patent. Brain: No abnormal FDG avid lesion or abnormal enhancement. Posterior fossa arachnoid cyst. CHEST: Right chest wall Port-A-Cath terminates at the superior cavoatrial junction. Lymph nodes: Overall decreased FDG uptake within multiple mediastinal and bilateral hilar lymph nodes (SUV max 6.18, previously 7.44). They are not enlarged. Lungs: The central tracheobronchial tree is clear. No acute consolidation. No pleural effusion or pneumothorax. Similar appearance of pleural calcification in the left upper lobe. 2 mm solid pulmonary nodule in the right upper lobe on image 47, series 11 is stable. Heart and great vessels: Heart size is within normal limits. No pericardial effusion. The thoracic aorta and main pulmonary artery are within normal limits. The esophagus is unremarkable. ABDOMEN AND PELVIS: Liver: Multiple subcentimeter hypoenhancing foci throughout the liver are similar to prior with no significant FDG uptake, too small to chractarize. No intrahepatic or extrahepatic biliary ductal dilatation. Gallbladder is within normal limits. Pancreas: The pancreas is within normal limits. No pancreatic ductal dilatation. Spleen: No FDG avid lesion. Adrenal glands: No FDG avid foci. Kidneys: No FDG avid lesion. No hydronephrosis. Urinary bladder: Hypermetabolic mass in the urinary bladder neck, extending caudally to involve the prostatic urethra and cranially into the urinary bladder lumen, overall is decreased in extent and size and FDG avidity. Decreased size and FDG uptake of the previously seen soft tissue mass centered about the urinary bladder neck extending to involve prostatic urethra (SUV max 19.19, previously 32.27; hypermetabolic tumor volume 3.5 cc now, versus 11.3 cc previously). Reproductive organs are within normal limits. Gastrointestinal system: Normal caliber of the small and large bowel. Lymph nodes: No FDG avid or abnormally enlarged lymph nodes. Vascular structures: Normal caliber of the abdominal aorta. No free air, free fluid, or fluid collection. EXTREMITIES: No abnormal FDG uptake in the visualized extremities. BONES AND SOFT TISSUES: Extensive diffuse bone marrow uptake new since prior PET, likely sequela of recent G-CSF treatment. No abnormal lytic or blastic osseous lesions. Bilateral healed rib fractures. SPINAL CANAL: No evident canal compromise. No abnormal FDG avid lesion. IMPRESSION: In this patient with urothelial carcinoma of the bladder status post chemotherapy FDG PET CT shows: 1. Decreased size, FDG avidity and metabolic tumor volume of bladder neck mass, compatible with partial response to treatment. 2. No evidence of new local jessica or distant metastasis. 3. Decreased FDG uptake in multiple mediastinal and hilar lymph nodes. Favored to be inflammatory or due to Sarcoid like reactions. Attention on follow-up. 4. Persistent FDG uptake near the periapical lucency of the left mandibular second molar. Dental consultation is recommended. I have personally reviewed the examination and initial interpretation and I agree with the findings. ALEAH MORALES MD Ky Torres MD IMG PET ORDERABLES * Glucose Whole Blood POCT (10/21/2023 8:50 AM CDT) Glucose 85 70 - 99 mg/dL Whole blood 10/21/2023 8:50 AM CDT Ky Torres MD LAB - ENTER/EDIT P MAR from Last 3 Months Advance Directives For more information, please contact: [phone] * Full Code (Latest Code Status on File) Date Activated Date Inactivated Comments 12/22/2023 8:50 PM 12/25/2023 5:51 PM All basic an d advanced life-sustaining interventions are performed as appropriate Question Answer Comments Code status determined by: Discussion with patie nt/ legal decision maker Care Teams Group Cio Relationship Specialty Start Date End Date No Ref-Primary, Physician PCP - General 12/22/23 Alvaro Clark MD [address] [id number] Assigned Surgical Provider 07/24/23 Yessica Mcleod PA-C [address] [place] [id number] Assigned Cancer Care Provider 12/22/23
--- OUTSIDE RECORDS SUMMARY | 2023-12-26 23:06 | XMS_ITS ---
Author Organization [facility] Address [address] [place] [id number] Care Team Providers Care Associate Professor Of Geology Name Role Phone Alvaro Clark MD Unavailable No Ref-Primary, Physician Primary Care Provider Yessica Mcleod PA-C Unavailable Active Problems Problem Noted Date Diagnosed Date Bladder cancer 12/22/2023 Urothelial cancer 09/06/2023 Lesion of bladder 07/10/2023 Current Oncology Plans OP ONC Bladder Cancer - Accelerated Methotrexate / vinBLAStine / DOXOrubicin / CISplatin (A-MVAC)* Plan Start Date:09/05/2023 Plan Provider:Ky Torres MD Linked Problems Urothelial cancer (H) Treatment Medications CISplatin (PLATINOL) infusio nDOXOrubicin (ADRIAMYCIN)methotrexatevinBLAStine (VELBAN) infusion Past Plans No past plan information found. Radiation Treatments * No radiation treatments are documented for this patient in [facility]. Treatments may have been administered in another system. Lifetime Dose Tracking * Chemical Lifetime Dose Automatic Entry Manual Entr y Doxorubicin 117.077 mg/m2 (240 mg) 117.077 mg/m2 (240 mg) 0 mg/m2 (0 mg) Total Air Kerma 2 mGy 2 mGy 0 mGy Fluoro Time 0.3 Minutes 0.3 Minutes 0 Minutes
--- OUTSIDE RECORDS SUMMARY | 2023-12-26 23:06 | XMS_ITS | Encounter Summary ---
Author Organization [facility] Address [address] [place] [id number] Care Team Providers Care Rn Progressive Care Name Role Phone Alvaro Clark MD Unavailable No Ref-Primary, Physician Primary Care Provider Yessica Mcleod PA-C Unavailable Reason for Visit * Auth/Cert Specialty Diagnoses / Procedures Referred By Virgil t Referred To Contact Surgery Diagnoses 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 (H) 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 (H) [C67.9] Procedures MT REMV BLADDER,CONTINENT DIVERSN CYSTECTOMY, pelvic node dissection WITH ILEAL NEOBLADDER CREATION possible ileal conduit [facility] Periop [address] [place] [address] Referral ID Status Reason Start Date Expiration Date Visits Re quested Visits Authorized [id number] 1 1 Encounter Details Date Type Department Care Team (Late st Contact Info) Description 12/22/2023 8:00 AM CDT - 12/22/2023 1:00 PM CDT Surgery [facility]Op [facility] [address] [place] [address] Alvaro Clark MD [address] [facility] [address] [place] [address] CYSTECTOMY, pelvic node dissection WITH ILEAL NEOBLADDER CREATION Surgery Details Date/Time Status Location OR Service Patient Class Case Class Case Type Trauma Case? 12/22/23 8:00 AM Posted UU OR UU OR 02 Urology Surgery Admit Elective Panel 1 Procedure LRB Anes Op Region Wound Class Comments CYSTECTOMY, pelvic node dissection WITH ILEAL NEOBLADDER CREATION N/A General Abdomen IV-Dirty or Infected Surgeon Surgeon Role Service Panel Alvaro Clark MD Primary Urology 1 documented in this encounter Social History Tobacco Use Types Packs/Day Years [...] on file Sexual Orientation Not on file documented as of this encounter Last Filed Vital Signs Vital Sign Reading Time Taken Comments Blood Pressure 115/67 12/22/2023 6:59 AM CDT Pulse - - Temperature 36.9 ??C (98.4 ??F) 12/22/2023 6:58 AM CD T Respiratory Rate 16 12/22/2023 6:58 AM CDT Oxygen Saturation 96% 12/22/2023 6:58 AM CDT Inhaled Oxygen Concentration - - Weight 88 kg (194 lb 0.1 oz) 12/22/2023 6:16 AM CDT Height 172.7 cm (5' 8) 12/22/2023 6:16 AM CDT Body Mass Index 29.5 12/22/2023 6:16 AM CDT documented in this encounter Medications at Time of Discharge Medication Sig Dispensed Refills Start Date End Date acetaminophen (TYLENOL) 325 MG tabletIndications:Postopera tive state,Post-op pain Take 2 tablets (650 mg) by mouth every 4 hours as needed for other (For optimal non-opioid multimodal pain management to improve pain control.) 50 tablet 12/25/2023 acetaminophen-caffeine (EXCEDRIN TENSION HEADACHE) 500-65 MG TABS Take 2 tablets by mouth every 6 hours as needed for mild pain (PRN HEADACHE) apixaban ANTICOAGULANT (ELIQUIS) 2.5 MG tabletIndications:DVT-PE Prophylaxis Take 1 tablet (2.5 mg) by mouth 2 times daily 58 tablet 12/25/2023 diphenhydrAMINE HCl (BENADRYL ALLERGY PO) Take 1 tablet by mouth as needed gabapentin (NEURONTIN) 100 MG capsuleIndications:Postoper ative state,Post-op pain Take 1 capsule (100 mg) by mouth 3 times daily as needed for other (post op pain) 14 capsule 12/25/2023 methocarbamol (ROBAXIN) 750 MG tabletIndications:Postopera tive state,Post-op pain Take 1 tablet (750 mg) by mouth every 6 hours as needed for muscle spasms 14 tablet 12/25/2023 nitroFURantoin macrocrystal-monohydrate (MACROBID) 100 MG capsuleIndications:Perioper ative Pharmacoprophylaxis Take 1 capsule (100 mg) by mouth daily 19 capsule 12/26/2023 polyethylene glycol (MIRALAX) 17 GM/Dose powderIndications:Postopera tive state Take 17 g by mouth daily 510 g 12/25/2023 senna-docusate (SENOKOT-S/PERICOLACE) 8.6-50 MG tabletIndications:Postopera tive state Take 1 tablet by mouth 2 times daily 40 tablet 12/25/2023 documented as of this encounter Progress Notes * Aaron Noonan RN - 12/25/2023 11:28 AM CDT Blood pressure 103/67, pulse 84, temperature 98.7 ??F (37.1 ??C), temperature source Oral, resp. rate 16, height 1.727 m (5' 8), weight 88 kg (194 lb 0.1 oz), SpO2 97%. Activity: SBA Neuros: AOX4, makes needs known Cardiac: WDL Respiratory: WDL GI/: Parry irrigated this morning, +BS, BM nights Diet: Regular, Fair Skin/Incisions/Drains: Abd incision w/abd binder, Rt ETHAN, Parry, Rt port Lines: Rt port SL Pain: Denies pain Plan: MD wants to train care taken on irrigation for discharging today. * Noe Erickson MD - 12/25/2023 5:48 AM CDT Urology Progress Note 24 hour events/Subjective: - No acute events overnight - Pain well controlled on current regimen - Tolerating full liquid diet ; no nausea or vomiting - Passing flatus, no BM - Ambulated yesterday Exam BP 126/79 (BP Location: Right arm, Patient Position: Semi-Ward's, Cuff Size: Adult Regular) Pulse 94 Temp 98.4 ??F (36.9 ??C) (Oral) Resp 18 Ht 1.727 m (5' 8) Wt 88 kg (194 lb 0.1 oz) SpO2 97% BMI 29.50 kg/m?? No acute distress Unlabored breathing on 1 L NC Abdomen soft, appropriately tender, nondistended. Incisions c/d/i Parry draining pink/grade 1 hematuria Intake/Output Summary (Last 24 hours) at 12/23/2023 0603 Last data filed at 12/22/2023 2301 Gross per 24 hour Intake 3450 ml Output 1897 ml Net 1553 ml UOP 2825/400 ETHAN 275/100 Labs AM labs pending Assessment/Plan 63 year old y/o male POD#3 s/p cystectomy with ileal neobladder creation for MIBC. Neobladder irrigated this AM. Progressing well from a surgical perspective wit an uncomplicated post-op course. Note - plan changes for today are in bold below. Neuro: pain control: PRN oxycodone 5-10 mg q3h , PRN dilaudid 0.2 - 0.4 mg q2h, scheduled tylenol ,onQ catheter to remain in place until bulb is empty, and gabapentin 500 mg TID CV: SUSAN Pulm: incentive spirometry while awake, wean O2 as able FEN/GI: FLD diet, LR @TKO (10 mL/hr) -Entereg Endo: SUSAN : Urology to irrigate neobladder AM and PM Heme/ID: F/u AM labs, monitor s/s infection Activity: Up as tolerated Ambulate at least TID Ppx: Heparin 5000 U TID Dispo: Anticipate discharge to home. Seen and examined with the chief resident. Will discuss with Alvaro Clark MD. Noe Erickson MD, MPH Urology Resident, PGY-2 [employer]OR [employer] RES[employer]ATIONS medications: Prior to Admission medications Medication Sig Start Date End Date Taking? Authorizing Provider acetaminophen-caffeine (EXCEDRIN TENSION HEADACHE) 500-65 MG TABS Take 2 tablets by mouth every 6 hours as needed for mild pain (PRN HEADACHE) Yes Reported, Patient diphenhydrAMINE HCl (BENADRYL ALLERGY PO) Take 1 tablet by mouth as needed Yes Reported, Patient Contacting the urology team: Please see [employer] and page on-call clinician with any questions or concerns regarding this patient. Note technical writer and editor may be unavailable. To access [facility] from intranet: under Applications --> Business Applications select [employer] and search Urology Adult & Pediatric/[facility]. Please note that any question about a urology inpatient, [place] or [place], should go to job code [phone]. * Noe Erickson MD - 12/24/2023 5:56 AM CDT Urology Progress Note 24 hour events/Subjective: - No acute events overnight - Pain well controlled on current regimen - Tolerating clear liquid diet ; no nausea or vomiting - Not yet passing flatus. - Ambulated yesterday Exam BP 108/68 (BP Location: Right arm) Pulse 90 Temp 98.9 ??F (37.2 ??C) (Oral) Resp 16 Ht 1.727 m (5' 8) Wt 88 kg (194 lb 0.1 oz) SpO2 93% BMI 29.50 kg/m?? No acute distress Unlabored breathing on 1 L NC Abdomen soft, appropriately tender, nondistended. Incisions c/d/i Parry draining pink/grade 1 hematuria Intake/Output Summary (Last 24 hours) at 12/23/2023 0603 Last data filed at 12/22/2023 2301 Gross per 24 hour Intake 3450 ml Output 1897 ml Net 1553 ml UOP 2125/1325 ETHAN 245/50 Labs AM labs pending Assessment/Plan 63 year old y/o male POD#2 s/p cystectomy with ileal neobladder creation for MIBC. Dressing taken down and neobladder irrigated this AM. Progressing well from a surgical perspective wit an uncomplicated post-op course. Note - plan changes for today are in bold below. Neuro: pain control: PRN oxycodone 5-10 mg q3h , PRN dilaudid 0.2 - 0.4 mg q2h, scheduled tylenol ,onQ catheter to remain in place until bulb is empty, and gabapentin 500 mg TID CV: SUSAN Pulm: incentive spirometry while awake, wean O2 as able FEN/GI: CLD diet, LR @ 100 -Entereg Endo: SUSAN : Urology to irrigate neobladder AM and PM Heme/ID: F/u AM labs, monitor s/s infection Activity: Up as tolerated Ambulate at least TID Ppx: Heparin 5000 U TID Dispo: Anticipate discharge to home. Seen and examined with the chief resident. Will discuss with Alvaro Clark MD. Noe Erickson MD, MPH Urology Resident, PGY-2 [employer]OR [employer] RESERVATIONS medications: Prior to Admission medications Medication Sig Start Date End Date Taking? Authorizing Provider acetaminophen-caffeine (EXCEDRIN TENSION HEADACHE) 500-65 MG TABS Take 2 tablets by mouth every 6 hours as needed for mild pain (PRN HEADACHE) Yes Reported, Patient diphenhydrAMINE HCl (BENADRYL ALLERGY PO) Take 1 tablet by mouth as needed Yes Reported, Patient Contacting the urology team: Please see [facility] and page on-call clinician with any questions or concerns regarding this patient. Note technical writer and editor may be unavailable. To access [facility] from intranet: under Applications --> Business Applications select [employer] and search Urology Adult & Pediatric/[facility]. Please note that any question about a urology inpatient, [place] or [place], should go to job code [phone]. * Ana Thomason OTR - 12/23/2023 11:52 AM CDT Occupational Therapy Evaluation 12/23/23 0800 Appointment Info Signing Clinician's Name / Credentials (OT) RENATE Noel/Rebecca Living Environment People in Home alone Current Living Arrangements (townhouse) Home Accessibility stairs to enter home Number of Stairs, Main Entrance 2;3 Transportation Anticipated family or friend will provide Living Environment Comments Pt reported he lives alone in a townhouse with 2 DAISY, stairs down to laundry but not planning on doing for a while. Pt has walk in shower, no grab bars or shower chair. Planning to discharge to his mother's home with no stairs, fully accessible. Self-Care Usual Activity Tolerance good Current Activity Tolerance fair Equipment Currently Used at Home none Fall history within last six months no Activity/Exercise/Self-Care Comment IND at baseline with ADLs Instrumental Activities of Daily Living (IADL) IADL Comments IND at baseline with IADLs General Information Onset of Illness/Injury or Date of Surgery 12/22/23 Referring Physician Alvaro Clark MD Patient/Family Therapy Goal Statement (OT) to return home Additional Occupational Profile Info/Pertinent History of Current Problem Per chart, 63 year old y/o male POD#1 s/p cystectomy with ileal neobladder creation for MIBC. Existing Precautions/Restrictions abdominal Left Upper Extremity (Weight-bearing Status) partial weight-bearing (PWB) Right Upper Extremity (Weight-bearing Status) partial weight-bearing (PWB) Left Lower Extremity (Weight-bearing Status) full weight-bearing (FWB) Right Lower Extremity (Weight-bearing Status) full weight-bearing (FWB) General Observations and Info Activity: up with assist Cognitive Status Examination Orientation Status orientation to person, place and time Affect/Mental Status (Cognitive) WNL Follows Commands WNL Cognitive Status Comments Appears at baseline Visual Perception Visual Impairment/Limitations WFL Sensory Sensory Quick Adds sensation intact Pain Assessment Patient Currently in Pain Yes, see Vital Sign flowsheet Posture Posture not impaired Range of Motion Comprehensive General Range of Motion bilateral upper extremity ROM WFL Strength Comprehensive (MMT) General Manual Muscle Testing (MMT) Assessment no strength deficits identified Coordination Upper Extremity Coordination No deficits were identified Bed Mobility Bed Mobility supine-sit;sit-supine Supine-Sit [place] (Bed Mobility) verbal cues Sit-Supine [place] (Bed Mobility) verbal cues Transfers Transfers sit-stand transfer Sit-Stand Transfer Sit-Stand [place] (Transfers) supervision Balance Balance Assessment no deficits identified Activities of Daily Living BADL Assessment/Intervention bathing;upper body dressing;lower body dressing;clothing fastener management;grooming;toileting Bathing Assessment/Intervention [place] Level (Bathing) set up Comment, (Bathing) Per clinical judgement Upper Body Dressing Assessment/Training Comment, (Upper Body Dressing) Per clinical judgement [place] Level (Upper Body Dressing) independent Lower Body Dressing Assessment/Training [place] Level (Lower Body Dressing) modified independence Clothes Fastener Management [place] Level (Clothes Fastener Management) independent Grooming Assessment/Training [place] Level (Grooming) supervision Toileting [place] Level (Toileting) supervision Clinical Impression Criteria for Skilled Therapeutic Interventions Met (OT) Yes, treatment indicated OT Diagnosis decreased ADL and IADL independence OT Problem List-Impairments impacting ADL problems related to;activity tolerance impaired;pain;post-surgical precautions Assessment of Occupational Performance 1-3 Performance Deficits Identified Performance Deficits ADL including bathing, toileting; IADLs Planned Therapy Interventions (OT) ADL retraining;IADL retraining;bed mobility training;transfer training;home program guidelines;progressive activity/exercise Clinical Decision Making Complexity (OT) problem focused assessment/low complexity Risk & Benefits of therapy have been explained evaluation/treatment results reviewed;care plan/treatment goals reviewed;risks/benefits reviewed;current/potential barriers reviewed;participants voiced agreement with care plan;participants included;patient Clinical Impression Comments Pt presents below functional baseline, limited primarily by decreased activity tolerance and post surgical precautions impacting ADL and IADL independence. Pt would benefit from 1 time OT treatment for education and training in ADLs within precautions and to facilitate safe discharge planning. OT Total Evaluation Time OT Eval, Low Complexity Minutes (44157) 10 OT Goals Therapy Frequency (OT) One time eval and treatment OT Predicted Duration/Target Date for Goal Attainment 12/24/23 OT Goals Hygiene/Grooming;Toilet Transfer/Toileting;Bed Mobility;OT Goal 1;Aerobic Activity OT: Hygiene/Grooming independent;Goal Met OT: Bed Mobility Modified independent;within precautions;Goal Met OT: Toilet Transfer/Toileting Modified independent;within precautions;Goal Met OT: Perform aerobic activity with stable cardiovascular response continuous activity;10 minutes;Goal Met OT: Goal 1 Pt will complete x3 stairs simulated to home set up SBA by discharge. (Goal met) Self-Care/Home Management Self-Care/Home Mgmt/ADL, Compensatory, Meal Prep Minutes (66184) 12 Symptoms Noted During/After Treatment (Meal Preparation/Planning Training) increased pain Treatment Detail/Skilled Intervention OT: Facilitated ADL for increased IND within precautions. Pt educated on abdominal precautions, handout provided. Pt completed log roll technique for bed mobility with verbal cues, progressed to mod IND. Reviewed with pt LB dressing within precautions, pt unable to demo figure four, reported he is familiar with using food and beverage analyst tool for LB dressing and has slip on shoes he wears. Educated pt on IADLs with 10 # weight restriction. Pt demo'd mod IND mobility in room once set up with IV pole due to multiple lines, completed ADLS SBA and progressed to mod IND-IND. Therapeutic Activities Therapeutic Activity Minutes (09045) 10 Symptoms noted during/after treatment fatigue Treatment Detail/Skilled Intervention OT: Facilitated functional mobility for increased IND and activity tolerance for ADL. Pt walked approximately 600 ft mod IND with IV pole, no seated rest break. Pt completed x3 stairs simulated to home set up mod IND. Pt tolerated well, reported some fatigue. Educated pt on recommendation to continue walking in hallways 4x/day with assist from nursing staff for getting set up due to lines, pt demonstrated good understanding. OT Discharge Planning OT Plan dc OT Discharge Recommendation (DC Rec) home with assist OT Rationale for DC Rec Pt presents below functional baseline, limited primarily by decreased activity tolerance and post surgical precautions impacting ADL and IADL independence. Pt mobilizing mod IND and completing ADLs SBA-IND post op, all OT goals met. Anticipate pt will be safe to discharge once medically ready with intermittent assist for IADLs outside of precautions. OT Brief overview of current status SBA-IND Total Session Time Timed Code Treatment Minutes 22 Total Session Time (sum of timed and untimed services) 32 * Camilla Larkin MD - 12/23/2023 6:03 AM CDT Urology Progress Note 24 hour events/Subjective: - No acute events overnight - Pain well controlled on current regimen - Tolerating clear liquid diet ; no nausea or vomiting - Not yet passing flatus. - Ambulated yesterday Exam BP 119/72 Pulse 69 Temp 98.1 ??F (36.7 ??C) (Oral) Resp 16 Ht 1.727 m (5' 8) Wt 88 kg (194 lb 0.1 oz) SpO2 98% BMI 29.50 kg/m?? No acute distress Unlabored breathing on 1 L NC Abdomen soft, appropriately tender, nondistended. Incisions c/d/i parry draining clear yellow urine Intake/Output Summary (Last 24 hours) at 12/23/2023 0603 Last data filed at 12/22/2023 2301 Gross per 24 hour Intake 3450 ml Output 1897 ml Net 1553 ml UOP 1362/- ETHAN 335/- Labs AM labs pending Assessment/Plan 63 year old y/o male POD#1 s/p cystectomy with ileal neobladder creation for MIBC. Note - plan changes for today are in bold below. Neuro: pain control: PRN oxycodone 5-10 mg q3h , PRN dilaudid 0.2 - 0.4 mg q2h, scheduled tylenol ,onQ catheter to remain in place until bulb is empty, and gabapentin 500 mg TID CV: SUSAN Pulm: incentive spirometry while awake, wean O2 as able FEN/GI: CLD diet, LR @ 100 -Entereg Endo: SUSAN : Urology to irrigate neobladder AM and PM Heme/ID: F/u AM labs, monitor s/s infection Activity: Up as tolerated Ambulate at least TID Ppx: Heparin 5000 U TID Dispo: anticipate discharge to home. Seen and examined with the chief resident. Will discuss with Alvaro Clark MD. Camilla Larkin MD, PGY-2 Urology Resident [employer] medications: Prior to Admission medications Medication Sig Start Date End Date Taking? Authorizing Provider acetaminophen-caffeine (EXCEDRIN TENSION HEADACHE) 500-65 MG TABS Take 2 tablets by mouth every 6 hours as needed for mild pain (PRN HEADACHE) Yes Reported, Patient diphenhydrAMINE HCl (BENADRYL ALLERGY PO) Take 1 tablet by mouth as needed Yes Reported, Patient Contacting the urology team: Please see [facility] and page on-call clinician with any questions or concerns regarding this patient. Note technical writer and editor may be unavailable. To access [facility] from intranet: under Applications --> Business Applications select [facility] [employer] and search Urology Adult & Pediatric/[facility]. Please note that any question about a urology inpatient, [place] or [place], should go to job code [id number]. * Zofia Prasad RN - 12/22/2023 10:29 PM CDT Admitted/transferred from: 2 RN full skin assessment completed by Zofia Prasad RN and CARLOS Owen. Skin assessment finding: other surgical incision, two PIVs. Interventions/actions: other none Bedside Emergency Equipment Present: Suction Regulator: yes Suction Canister: Yes Tubing between Regulator and Canister: Yes O2 Regulator with Tree: Yes Ambu Bag: Yes BP 133/76 (BP Location: Left arm) Pulse 89 Temp 97.7 ??F (36.5 ??C) (Oral) Resp 13 Ht 1.727m (5' 8) Wt 88 kg (194 lb 0.1 oz) SpO2 90% BMI 29.50 kg/m?? PM shift December 22, 2023 Activity: SBA, IV assistance. Steady, ambulated to bathroom Neuros: A&Ox4 Cardiac: WDL Respiratory: Above 93% on 1.5 L NC GI/: Parry cath with red output. BS+, passing flatus. [place] urge sat Diet: Clears. Skin/Incisions/Drains: Midline abd incision, ETHAN in RLQ to bulb, R/L PIV Lines: R/L PIV. L PIV infusing LR 100 ml/hr Pain: Reporting 4/10 pain, managed with oxycodone. documented in this encounter Nursing Notes * Amalia Gonzalez RN - 12/22/2023 4:29 PM CDT Urology contacted to notify xray is complete. says xray looks good. documented in this encounter Miscellaneous Notes * Plan of Care - Isaac Hutchins RN - 12/25/2023 5:41 AM CDT Goal Outcome Evaluation: Shift [id number] A&Ox4, cooperative, makes needs known. Abdominal pain managed with prn oxycodone x1, prn robaxin x2, tylenol x1 & On-Q 7 ml dual cath. Parry with red/pink AUOP, urology irrigated this am. Advanced to regular diet, denies nausea. +BS, +flatus, pt had a loose BM overnight x1. Abdominal incision with steri-strips drainage, new ABD pad placed, new larger abdominal binder placed. R ETHAN with serosanguineous output dressing changes x1. R chest port infusing LR, fluids discontinue this am. Up ambulating, up in chair with SBA. No acute changes. Continue POC. * Plan of Care - Shobha Sneed RN - 12/24/2023 6:18 PM CDT Goal Outcome Evaluation: Plan of Care Reviewed With: patient Overall Patient Progress: improving BP (!) 142/70 (BP Location: Right arm) Pulse 94 Temp 98.1 ??F (36.7 ??C) (Oral) Resp 18 Ht 1.727 m (5' 8) Wt 88 kg (194 lb 0.1 oz) SpO2 98% BMI 29.50 kg/m?? Pain in abdomen improving- managed with PRN oxycodone and robaxin. Denies nausea. Poor appetite- onFull L. +BS and passing flatus, no BM. Abd soft. Ambulating in halls SBA. Sating >98% on RA. R ETHAN- serosanguineous output. OnQ pump still in place. * Plan of Care - Patsy Bryant RN - 12/24/2023 5:15 AM CDT BP 108/68 (BP Location: Right arm) Pulse 90 Temp 98.9 ??F (37.2 ??C) (Oral) Resp 16 Ht 1.727 m (5' 8) Wt 88 kg (194 lb 0.1 oz) SpO2 93% BMI 29.50 kg/m?? AVSS on 2L/NC. Patient c/o incisional pain. Scheduled Tylenol 975 mg given x 1 and prn Oxycodone 10 mg given x 2. Bilateral On-Q pumps. Patient denies nausea. Urine Output - 1325 ml red via parry. ETHAN with 50 ml out. Operative dressing intact with a small amount of dried serogang drainage. Bowel Function - No BM since surgery. Notpassing gas. BS hypo. Nutrition - clears. Activity - resting/sleeping this shift. * Plan of Care - Kelly Nicholas RN - 12/24/2023 3:41 AM CDT [id number] Status: OD#1 s/p cystectomy with ileal neobladder creation for muscle invasive bladder cancer (MIBC) Vitals: VSS Neuros: A&O x4 IV: PIV x2, one infusing LR @ 50 mL/hr, other SL Labs/Electrolytes: redraws in the AM Resp/trach: on RA, denies SOB Diet: clear liquid Bowel status: Not passing gas : parry in place AUO, bright red Skin: Midline incision CDI. Right JPx1 Pain: abd pain managed with PRN and scheduled meds Activity: SBA, encourage ambulation Plan: OT is recommending home with assist. Continue with POC * Plan of Care - Shobha Sneed RN - 12/23/2023 6:24 PM CDT Goal Outcome Evaluation: Plan of Care Reviewed With: patient Overall Patient Progress: improving BP 125/67 (BP Location: Right arm) Pulse 91 Temp 98.7 ??F (37.1 ??C) (Oral) Resp 16 Ht 1.727 m (5' 8) Wt 88 kg (194 lb 0.1 oz) SpO2 94% BMI 29.50 kg/m?? Pain in abdomen rated 7/10- gave PRN oxycodone. Ambulating in halls SBA. Parry with AUOP. R ETHAN- serosanguineous output. Midline incision-CDI. OnQ @7 x2. Clear L- poor appetite. Denies nausea. Abd distended. Belching, not passing flatus. * Provider Notification - Shobha Sneed RN - 12/23/2023 4:27 PM CDT RN paged MD Richard, Aris [phone] FYI pt abd distended, very painful, and pt belching. thanks. shobha ho rn [phone] * Plan of Care - Ana Thomason OTR - 12/23/2023 11:53 AM CDT Occupational Therapy Discharge Summary Reason for therapy discharge: All goals and outcomes met, no further needs identified. Progress towards therapy goal(s). See goals on Care Plan in [facility] electronic health record for goal details. Goals met Therapy recommendation(s): Continue walking in hallways at least 4x/day while inpatient. * Plan of Care - Emely Rodriguez PT - 12/23/2023 9:20 AM CDT Physical Therapy: Orders received. Chart reviewed and discussed with care team.? Physical Therapy not indicated due to current mobility status. Per chart and communication with OT patient mobilizing well without physical assistance, no acute IPPT needs.? Defer discharge recommendations to OT, anticipate return to home with PRN assist once medically ready.? Will complete orders. * Plan of Care - Oksana Flor RN - 12/23/2023 8:11 AM CDT Goal Outcome Evaluation: Plan of Care Reviewed With: patient Overall Patient Progress: improving Blood pressure 117/64, pulse 69, temperature 98.3 ??F (36.8 ??C), temperature source Oral, resp. rate 18, height 1.727 m (5' 8), weight 88 kg (194 lb 0.1 oz), SpO2 98%. 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, CYSTECTOMY, pelvic node dissection WITH ILEAL NEOBLADDER CREATION, N/A - Abdomen Activity: SBA, walked to bathroom Neuros: A&O x 4 Cardiac: WDL Respiratory: >92 on 1 L NC GI/: AUO, bright red, to parry, no BM Diet: clears Skin/Incisions: on-q x 2 @ 7, midline abd incision, CDI Lines/Drains: L PIV-LR @ 100 Pain/Nausea: pain managed with PRN oxycodone x 1, after ambulation New Changes: none Plan: support in walking so he can progress toward BM, pain management * Op Note - Alberto Tejeda MD - 12/22/2023 3:47 PM CDT OPERATIVE REPORT Patient Name: Oleg Richard Date: 12/22/2023 Attending Surgeon: Alvaro Clark MD Manager Category(s): Alberto Tejeda M.D.-PGY-5 Preoperative Diagnosis(es): 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 Radical cystoprostatectomy 2. Standard bilateral pelvic lymph node dissection. 3. Modified William Neobladder 4. Bilateral open ureteral stent placement. 5. Bilateral regional block using onQ catheters Anesthesia: General endotracheal tube Estimated Blood Loss: 200 cc. Fluids: 3200 cc crystalloid, 250 cc colloid. Specimens Removed: Bladder, prostate, seminal vesicles, pelvic lymph nodes. Complications: None Indications: Oleg Richard is a 63 year old male with muscle invasive bladder cancer status post MVAC x 4 with good response and is now here for radical cystectomy. After discussing different diversion options, he chose neobladder. Findings: Palpably normal bladder, prostate and lymph nodes. Procedure: The patient was brought to the Operating suite and general anesthesia was induced. An arterial linewas placed by the anesthesiologists. He was then placed in a slightly hyperextended position with care being taken to protect the arms and adequately pad all sensitive areas. He was then prepped and draped in the usual sterile fashion. A #16 Dutch Parry catheter was placed in the bladder. After appropriate surgical pause and administration of shiva-operative antibiotics, we made a lower midline incision, and the skin and the subcutaneous tissues were incised. The anterior rectus fascia was identified and incised and the rectus muscles were retracted laterally. The posterior rectus fascia and t he peritoneum were entered. We did not feel any masses in the bladder. We took down some adhesions from the sigmoid colon to the side wall. Next, we placed a self-retaining retractor and packed the small bowel into the epigastrium using lap pads. The left and then right ureter were dissected into the deep pelvis where they were clipped and divided with frozen sections revealing no atypia. We made a window in the sigmoid just posterior to the sigmoid mesentery to further expose the retroperitoneum and to bring left ureter over to the right side. We then passed the finger under the peritoneum over the external iliac artery and vein down to the femoral canal and divided the peritoneum medial to the spermatic cord and clipped and divided the vas deferens. First on the left, we then skeletonized the external iliac artery and vein from the lymph node of Alen proximally to join up with the proximal limits of dissection over the common iliac vessels. We cleaned out the obturator fossa and the fossa of Marcille's and carefully dissected out the obturator nerve with care being taken to identify and protect it. We swept all the ly mphatic tissue medially toward the bladder. All the lymphatics were sent as separate packets. All the vessels were completely skeletonized. This then was repeated in the exact same manner on the right side. Having skeletonized the external iliac artery, vein, and obturator nerve, we then skeletonized the lateral pedicle of the bladder which was stretched, clipped, and divided down to the area of the endopelvic fascia. We then incised the peritoneum in the area of the cul-de-sac and dissected the rectum off the posterior layer of the Denonvilliers' fascia. We were able to develop this plane all the way to the lateral pedicles of the prostate. We then took down the posterior pedicles using the Ligasure device down to the lateral pedicle of the prostate just lateral to the seminal vesicles. We werecareful to protect the rectum during the division of the posterior pedicle. We then incised the endo pelvic fascia and the lateral prostatic fascia anteriorly up to the puboprostatic ligaments and sharply incised the puboprostatic ligaments. The dorsal venous complex was ligated with a figure of 8 2-0 Vicryl suture and divided. The lateral pillars of the urethra were taken down gently. I then incis ed the urethra at the apex of the prostate and placed the series of six 2-0 Monocryl sutures into the membranous urethra as it was being divided. We then clamped the Parry catheter, divided the catheter distal to the clamp, and placed 2 posterior urethral stitches with 2-0 Monocryl for a total of 8urethral sutures. We then took down the remaining lateral pedicles of the prostate with Ligasure. We sent off the apical urethral margin for frozen section which revealed no atypia. We then irrigatedthe pelvis with one liter of distilled water. The rectal wall was uninjured. We placed some Vistaseal and Floseal and left a moist pack in the area of the pelvis and turned our attention toward construction of the ileal reservoir. We divided the bowel at the avascular plane of Treves deep down into its mesentery. We measured a suitable segment of ileum for the construction of the reservoir consisting of two 22-cm segments for the reservoir with the proximal 15-cm segment for the afferent limb. We divided the distal part of the 22-cm segment with a JORGE 60 stapler. We opened the windows of [place] for approximately 5 cm alongthe proximal segment and preserved the vascular arcade going to this segment. We divided the proximal end of the bowel with a JORGE 55 stapler and then discarded the 5-cm segment. Next, we closed the proximal end of the afferent limb of the reservoir with a continuous 3-0 chromic Ismael-Granados suture with the third layer of interrupted imbricating 3-0 silk sutures. We then performed a standard stapled vyxj-xa-kxya functional end-to-end small bowel anastomosis by firing a JORGE 60 stapler along the antimesenteric border and closed the enterotomies for the anastomosis using a TA 60 stapler. The crossing staple lines were reinforced using 3-0 silk suture in a ylkrdu-rw-gyrba fashion. A similar suture was done at the crutch of the anastomosis. We then closed the mesenteric trap using a continuous 3-0 chromic suture. We then opened the bowel of the ileal reservoir approximately 1-1/2 cm from the mesentry down to the afferent limb and extended that incision to the antimesenteric border. We then oversewed the base of the two 22-cm limbs together using a continuous 3-0 Vicryl suture in 2 layers. This brought the inverted U-limb of the pouch together. We then closed the reservoir by folding it upon itself and then ran each half with 2 layers of continuous 3-0 Vicryl suture leaving an end open for insertion of an index finger for a later urethral anastomosis. We then performed a bilateral ureteroileal anastomosis after carefully spatulating each ureter on its medial aspect. This was done byusing interrupted 4-0 Vicryl sutures. We then stented the uretero-ileal anastomosis with a 7F single J catheter up to the ureter on each side and then distally into the reservoir to come out the urethral opening. Next, we rotated the reservoir 180 degrees into the area of the pelvis. We then a passed a #24 F Isha Parry catheter into the urethra and secured that to the stents using 3-0 nylon suture. We then used the previously placed eight 2-0 Monocryl urethral sutures to place corresponding sutures in the reservoir and then secured the urethro-ileal anastomosis. Irrigation of the anastomosis revealed that to be completely watertight. We then carefully layered the small bowel back into the abdomen. We then placed the omentum over the bowel anastomosis, packed the small bowel away from thepouch. We placed a #19 Dutch Brandon drain into the plane between the anterior rectal wall and the ileal reservoir, brought that out through a separate stab incision, and secured that to the skin with3-0 nylon. We placed 2 On-Q catheters through separate stab incisions in the right and left upper quadrants and advanced the catheters in the plane between the rectus muscle and the posterior sheath. We primed the catheters with 20 cc of 0.2% Ropivacaine and secured the catheters with Steri-strips. We then closed the fascia with running #1 PDS sutures in 2 segments tying the knot in the middle. The subcutaneous tissues were brought together with 3-0 Vicryl suture. The skin was closed using the Insorb absorbable sutures. Two sponge counts and an instrument count were reported as being correct. The estimated blood loss was 200 cc. The patient did not receive any blood transfusion intraoperatively. He tolerated the procedure extremely well and was sent to the recovery room extubated in excellent condition. Alberto Tejeda MD Urology PGY-5 Associated attestation - Alvaro Clark MD - 12/22/2023 9:52 PM CDT Physician Attestation I was present for the entire procedure between opening and closing. Alvaro Clark MD Date of Service (when I saw the patient): 12/22/23 * Brief Op Note - Alberto Tejeda MD - 12/22/2023 2:24 PM CDT [facility] Brief Operative Note Pre-operative diagnosis: 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 (H) [C67.9] Post-operative diagnosis Same as pre-operative diagnosis Procedure: CYSTECTOMY, pelvic node dissection WITH ILEAL NEOBLADDER CREATION, N/A - Abdomen Surgeon: Surgeons and Role: * Alvaro Clark MD - Primary Anesthesia: General Estimated Blood Loss: 200 ml Drains: Benny-Barillas and 24Fr rousche Specimens: ID Type Source Tests Collected by Time Destination 1 : Left distal ureteral margin Tissue Ureter, Left SURGICAL PATHOLOGY EXAM Alvaro Clark MD 12/22/2023 8:54 AM 2 : Right distal ureteral margin Tissue Ureter, Right SURGICAL PATHOLOGY EXAM Alvaro Clark MD 12/22/2023 9:00 AM 3 : urethral margin Tissue Urethra SURGICAL PATHOLOGY EXAM Alvaro Clark MD 12/22/2023 10:16 AM 4 : bladder, prostate, and seminal vesicles Tissue Urinary Bladder SURGICAL PATHOLOGY EXAM Alvaro Clark MD 12/22/2023 10:24 AM 5 : Left pelvic lymph node Tissue Lymph Node(s), Pelvis, Left SURGICAL PATHOLOGY EXAM Alvaro Clark MD 12/22/2023 10:29 AM 6 : right pelvic lymph nodes Tissue Lymph Node(s), Pelvis, Right SURGICAL PATHOLOGY EXAM Alvaro Clark MD 12/22/2023 10:30 AM 7 : left proximal ureteral margin Tissue Ureter, Left SURGICAL PATHOLOGY EXAM Alvaro Clark MD 12/22/2023 12:36 PM 8 : right proximal ureteral marigin Tissue Ureter, Right SURGICAL PATHOLOGY EXAM Alvaro Clark MD 12/22/2023 12:56 PM Findings: None. Complications: None. Implants: Implant Name Type Inv. Item Serial No. Pump Mechanic Lot No. LRB No. Used Action [employer] 07FR [id number] - [id number] Stent [employer] [id number] [facility] [id number] N/A 1 Implanted Fluids: 3200 crystalloid 250 albumin Admit Urology Urology to irrigate AM and PM Neobladder pathway Alberto Tejeda MD Urology PGY-5 * Pharmacy-Admission Medication History - Ureil Kaba - 12/15/2023 12:03 PM CDT [employer] Pre-operative Admission Medication History Admission medication history was completed on December 15, 2023 in anticipation for upcoming surgical admission currently scheduled for 12/22/23. The information provided in this note is only as accurate as the sources available at the time of the update. Pre-operative nursing staff should still review this list with patient for any changes or updates. Information Source(s): Patient via phone Pertinent Information: Patient stated he is not taking tamsulosin. 90 day supply filled on 09/14/23 per dispense history. Changes made to [employer] medication list: Added: None Deleted: None Changed: None Allergies reviewed with patient and updates made in EHR: yes Medication History Completed By: Uriel Kaba 12/15/2023 12:03 PM [employer] Med List Medication Sig Last Dose acetaminophen-caffeine (EXCEDRIN TENSION HEADACHE) 500-65 MG TABS Take 2 tablets by mouth every 6 hours as needed for mild pain (PRN HEADACHE) diphenhydrAMINE HCl (BENADRYL ALLERGY PO) Take 1 tablet by mouth as needed Associated attestation - Nabeel Mcghee RPH - 12/15/2023 12:17 PM CDT I was not present during the 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 Nabeel Mcghee, Pharm.D, [facility] December 15, 2023 documented in this encounter Plan of Treatment Upcoming Encounters Date Type Department Care Team (Late st Contact Info) Description 01/01/2024 9:45 AM CDT Office Visit [facility] [address] [facility] [place] [address] Alvaro Clark MD [address] [facility] [address] [place] [address] 02/26/2024 7:45 AM CDT Lab [facility] [address] [place] [address] Ky Torres MD 420 [facility] [address] [place] [address] 02/26/2024 8:40 AM CDT Appointment [facility] [address] [facility] [address] [place] [address] Yessica Mcleod PAJose Luis [address] [place] [address] 03/04/2024 8:00 AM CDT Oncology Visit [address] 200 [facility] [place] [address] Ky Torres MD [address] [id number] Pending Results Name Type Priority Associated Diagnoses Date /Time Surgical Pathology Exam Pathology and Cytology STAT 12/22/2023 8:54 AM CDT documented as of this encounter Procedures Procedure Name Priority Date/Time Associated Diagnosis Comments CREATININE FLUID Timed 12/25/2023 10:2 8 AM CDT BASIC METABOLIC PANEL Routine 12/25/2023 6:50 AM CDT CBC WITH PLATELETS Routine 12/25/2023 6: 50 AM CDT PHOSPHORUS Add-On 12/24/2023 6:16 AM CDT MAGNESIUM Add-On 12/24/2023 6:16 AM CDT BASIC METABOLIC PANEL Routine 12/24/2023 6:16 AM CDT CBC WITH PLATELETS Routine 12/24/2023 6: 16 AM CDT BASIC METABOLIC PANEL Routine 12/23/2023 7:04 AM CDT CBC WITH PLATELETS Routine 12/23/2023 7: 04 AM CDT GLUCOSE BY METER Routine 12/23/2023 6:42 AM CDT PLATELET COUNT Routine 12/22/2023 9:55 PM CDT XR ABDOMEN PORT 1 VIEW Routine 12/22/2023 3:16 PM CDT SURGICAL PATHOLOGY EXAM STAT 12/22/2023 8:54 AM CDT CYSTECTOMY,W/CONTINE NT DIVERSION 12/22/2023 7:50 AM CDT 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 (H) GLUCOSE BY METER Routine 12/22/2023 6:55 AM CDT TYPE AND SCREEN, ADULT STAT 12/22/2023 6:47 AM CDT ABO/RH TYPE AND SCREEN STAT 12/22/2023 6:47 AM CDT documented in this encounter Results * Creatinine fluid (12/25/2023 10:28 AM [...] - BODY FLUIDS OR DERABLES [facility] Core Lab [address] [facility], [address] [place] [address] * (ABNORMAL) CBC with platelets (12/25/2023 6:50 AM CDT) WBC Count 9.0 4.0 - 11.0 10e3/uL [...] LAB - BLOOD ORDERABL ES [facility] [place] Core Lab [address] [facility], [address] [place] [address], [facility] * (ABNORMAL) Basic metabolic panel (12/25/2023 6:50 AM CDT) Sodium 134(L) 135 - 145 mmol/L 12/25/2023 [...] AM CDT [facility] Comment:eGFR calculated usin g 2020 CKD-EPI equation. Calcium 8.3(L) 8.8 - [...] Tejeda MD LAB - BLOOD ORDERABL ES [facility] [place] Core Lab [address] [facility], [address] * Phosphorus (12/24/2023 6:16 AM CDT) Phosphorus 2.9 2.5 - 4.5 mg/dL 12/24/2023 7:26 AM CDT [facility] Blood (Portacath) IVAD (Port) / Unknown 12/24/2023 6:16 AM CDT 12/24/2023 6:41 AM CDT Alberto Tejeda MD LAB - BLOOD ORDERABL ES Performing Organization Address City/[facility]/ZIP Co de Phone Number [facility] [place] Core Lab [address] [facility], [address] * Magnesium (12/24/2023 6:16 AM CDT) Magnesium 1.8 1.7 - 2.3 mg/dL 12/24/2023 10:59 AM CDT [facility] Blood (Portacath) IVAD (Port) / Unknown 12/24/2023 6:16 AM CDT 12/24/2023 6:41 AM CDT Alberto Tejeda MD LAB - BLOOD ORDERABL ES [facility] [place] Core Lab [address] [facility], [address] * (ABNORMAL) CBC with platelets (12/24/2023 6:16 AM CDT) WBC Count 9.8 4.0 - 11.0 10e3/uL 12/24/2023 6:51 AM CDT [facility] RBC Count 2.96(L) 4.40 - 5.90 10e6/uL 12/24/2023 6:51 AM CDT [facility] Hemoglobin 9.0(L) 13.3 - 17.7 g/dL 12/24/2023 6:51 AM CDT [facility] Hematocrit 27.5(L) 40.0 - 53.0 % 12/24/2023 6:51 AM CDT [facility] MCV 93 78 - 100 fL 12/24/2023 6:51 AM CDT [facility] MCH 30.4 26.5 - 33.0 pg 12/24/2023 6:51 AM CDT [facility] MCHC 32.7 31.5 - 36.5 g/dL 12/24/2023 6:51 AM CDT [facility] RDW 15.4(H) 10.0 - 15.0 % 12/24/2023 6:51 AM CDT [facility] Platelet Count 177 150 - 450 10e3/uL 12/24/2023 6:51 AM CDT [facility] Blood (Portacath) IVAD (Port) / Unknown 12/24/2023 6:16 AM CDT 12/24/2023 6:41 AM CDT Alberto Tejeda MD LAB - BLOOD ORDERABL ES [facility] [place] Core Lab [address] [facility], [address] [place] [address] * (ABNORMAL) Basic metabolic panel (12/24/2023 6:16 AM CDT) Sodium 137 135 - 145 mmol/L 12/24/2023 7:12 AM CDT [facility] Potassium 4.6 3.4 - 5.3 mmol/L 12/24/2023 7:12 AM CDT [facility] Chloride 103 98 - 107 mmol/L 12/24/2023 7:12 AM CDT [facility] Carbon Dioxide (CO2) 28 22 - 29 mmol/L 12/24/2023 7:12 AM CDT [facility] Anion Gap 6(L) 7 - 15 mmol/L 12/24/2023 7:12 AM CDT [facility] Urea Nitrogen 22.1 8.0 - 23.0 mg/dL 12/24/2023 7:12 AM CDT [facility] Creatinine 0.99 0.67 - 1.17 mg/dL 12/24/2023 7:12 AM CDT [facility] GFR Estimate 85 >60 mL/min/1.7 3m2 12/24/2023 7:12 AM CDT [facility] Comment:eGFR calculated usin 2020 CKD-EPI equation. Calcium 8.3(L) 8.8 - 10.4 mg/dL 12/24/2023 7:12 AM CDT [facility] Comment:Reference intervals for this test were updated on 12/15/2023 to reflect our healthy population more accurately. There may be differences in the flagging of prior results with similar values performed with this method. Those prior results can be interpreted in the context of the updated reference intervals. Glucose 103(H) 70 - 99 mg/dL 12/24/2023 7:12 AM CDT [facility] Blood (Portacath) IVAD (Port) / Unknown 12/24/2023 6:16 AM CDT 12/24/2023 6:41 AM CDT Alberto Tejeda MD LAB - BLOOD ORDERABL ES [facility] [place] Core Lab [address] [facility], [address] [place] [address] * (ABNORMAL) CBC with platelets (12/23/2023 7:04 AM CDT) WBC Count 12.1(H) 4.0 - 11.0 10e3/uL 12/23/2023 7:20 AM CDT [facility] RBC Count 3.04(L) 4.40 - 5.90 10e6/uL 12/23/2023 7:20 AM CDT [facility] Hemoglobin 9.4(L) 13.3 - 17.7 g/dL 12/23/2023 7:20 AM CDT [facility] Hematocrit 28.2(L) 40.0 - 53.0 % 12/23/2023 7:20 AM CDT [facility] MCV 93 78 - 100 fL 12/23/2023 7:20 AM CDT [facility] MCH 30.9 26.5 - 33.0 pg 12/23/2023 7:20 AM CDT [facility] MCHC 33.3 31.5 - 36.5 g/dL 12/23/2023 7:20 AM CDT [facility] RDW 15.9(H) 10.0 - 15.0 % 12/23/2023 7:20 AM CDT [facility] Platelet Count 177 150 - 450 10e3/uL 12/23/2023 7:20 AM CDT [facility] Blood (Portacath) IVAD (Port) / Unknown 12/23/2023 7:04 AM CDT 12/23/2023 7:10 AM CDT Alberto Tejeda MD LAB - BLOOD ORDERABL ES [facility] [place] Core Lab [address] [facility], [address] [phone] * (ABNORMAL) Basic metabolic panel (12/23/2023 7:04 AM CDT) Sodium 136 135 - 145 mmol/L 12/23/2023 7:43 AM CDT [facility] Potassium 4.4 3.4 - 5.3 mmol/L 12/23/2023 7:43 AM CDT [facility] Chloride 103 98 - 107 mmol/L 12/23/2023 7:43 AM CDT [facility] Carbon Dioxide (CO2) 28 22 - 29 mmol/L 12/23/2023 7:43 AM CDT [facility] Anion Gap 5(L) 7 - 15 mmol/L 12/23/2023 7:43 AM CDT [facility] Urea Nitrogen 21.4 8.0 - 23.0 mg/dL 12/23/2023 7:43 AM CDT [facility] Creatinine 0.94 0.67 - 1.17 mg/dL 12/23/2023 7:43 AM CDT [facility] GFR Estimate >90 >60 mL/min/1.7 3m2 12/23/2023 7:43 AM CDT [facility] Comment:eGFR calculated us2020 CKD-EPI equation. Calcium 8.3(L) 8.8 - 10.4 mg/dL 12/23/2023 7:43 AM CDT [facility] Comment:Reference intervals for this test were updated on 12/15/2023 to reflect our healthy population more accurately. There may be differences in the flagging of prior results with similar values performed with this method. Those prior results can be interpreted in the context of the updated reference intervals. Glucose 121(H) 70 - 99 mg/dL 12/23/2023 7:43 AM CDT [facility] Blood (Portacath) IVAD (Port) / Unknown 12/23/2023 7:04 AM CDT 12/23/2023 7:10 AM CDT Alberto Tejeda MD LAB - BLOOD ORDERABL ES Performing Organization Address City/[facility]/ZIP Co de Phone Number [facility] [place] Core Lab [address] [facility], [address] * (ABNORMAL) Glucose by meter (12/23/2023 6:42 AM CDT) GLUCOSE BY METER POCT 118(H) 70 - 99 mg/dL 12/23/2023 6:49 AM CDT [facility] POC Blood, Capillary BLOOD SPECIMEN / Unknown 12/23/2023 6:42 AM CDT 12/23/2023 6:49 AM CDT Alvaro Clark MD LAB - BEAKER POCT [facility] POC [facility] Core Lab [address] [facility], Room [address] * Platelet count (12/22/2023 9:55 PM CDT) Platelet Count 179 150 - 450 10e3/uL 12/22/2023 10:12 PM CDT [facility] Blood STRUCTURE OF RIGHT HAND / Unknown IVAD (Port) / Unknown 12/22/2023 9:55 PM CDT 12/22/2023 10:04 PM CDT Alberto Tejeda MD LAB - BLOOD ORDERABL ES [facility] [place] Core Lab [address] [facility], [address] [place] [address], [facility] * XR Abdomen Port 1 View (12/22/2023 [...] MD IMG DIAGNOSTIC IMAGI NG ORDERABLES * (ABNORMAL) Glucose by meter (12/22/2023 6:55 AM CDT) GLUCOSE BY METER POCT 101(H) 70 - 99 mg/dL 12/22/2023 7:01 AM CDT [facility] POC Blood, Capillary BLOOD SPECIMEN / Unknown 12/22/2023 6:55 AM CDT 12/22/2023 7:01 AM CDT Alvaro Clark MD LAB - BEAKER POCT [facility] POC [facility] [place] Core Lab [address] [facility], [address] [place] [address], [facility] * Adult Type and Screen (12/22/2023 6:47 AM CDT) ABO/RH(D) A NEG 12/22/2023 6:16 AM CDT [facility] Antibody Screen Negative Negative 12/22/2023 6:16 AM CDT [facility] SPECIMEN EXPIRATION DATE [id number] 12/22/2023 6:16 AM CDT [facility] Blood STRUCTURE OF RIGHT HAND / Unknown Venipuncture / Unknown 12/22/2023 6:47 AM CDT 12/22/2023 6:56 AM CDT Alvaro Clark MD LAB - BLOOD BANK LICHA T ORDER Performing Organization Address [facility]/ZIP Co de Phone Number [facility] [address] [place] [id number] documented in this encounter Visit Diagnoses Diagnosis Postoperative state- Primary Other postprocedural status Bladder cancer (H) Malignant neoplasm of bladder, part unspecified Urothelial cancer (H) Malignant neoplasm of other specified sites of urinary organs Lesion of bladder Unspecified disorder of bladder Post-op pain Other acute postoperative pain 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 (H) documented in this encounter Administered Medications Inactive Administered Medications - up to 3 most recent administrations Medication Order MAR Action Action Date Dose Rate Site acetaminophen-caffeine (EXCEDRIN TENSION HEADACHE) 500-65 MG tablet 2 tablet 2 tablet, Oral, EVERY 6 HOURS PRN, mild pain, Starting on Thu12/23/23 at 1917, Each tablet contains 500 mg APAP $Given 12/24/2023 8:29 AM CDT 2 tablets apixaban ANTICOAGULANT (ELIQUIS) tablet 2.5 mg 2.5 mg, Oral, 2 TIMES DAILY, First dose on Thu12/25/23 at 0800, Indications: DVT-PE Prophylaxis $Given 12/25/2023 8:25 AM CDT 2.5 mg bacitracin ointment Topical, 3 TIMES DAILY, First dose on Thu12/22/23 at 2100, Apply to meatus every shift while catheter is in place. $Given 12/25/2023 1:35 PM CDT $Given 12/25/2023 7:02 AM CDT $Given 12/24/2023 8:38 PM CDT bisacodyl (DULCOLAX) suppository 10 mg 10 mg, Rectal, DAILY, First dose (after last modification) on Thu12/25/23 at 0800, Hold for loose stools. BUPivacaine (MARCAINE) 0.25% preservative free injection PRN, Starting on Thu12/22/23 at 1340, Intra-procedure $Given 12/22/2023 1:40 PM CDT 10 mLs gabapentin (NEURONTIN) capsule 100 mg 100 mg, Oral, 3 TIMES DAILY, First dose on Thu12/22/23 at 2000, For post-operative pain $Given 12/25/2023 1:34 PM CDT 100 mg $Given 12/25/2023 8:25 AM CDT 100 mg $Given 12/24/2023 8:38 PM CDT 100 mg heparin lock flush 100 unit/mL injection 5-10 mL 5-10 mL, Intracatheter, EVERY 28 DAYS, First dose on Thu12/25/23 at 1500, To de-access each port in dual implanted port. Flush with 10 mL NS sodium chloride 0.9% flush followed by 5 mL heparin (100 units/mL) at discharge and at least every 28 days. MAX: 5 mL per each port lumen $Given 12/25/2023 2:58 PM CDT 10 mLs HYDROmorphone (DILAUDID) injection 0.2 mg 0.2 mg, Intravenous, EVERY 2 HOURS PRN, moderate pain, Starting on Thu12/22/23 at 1709, IF patient unable to take oral pain medication or pain not controlled with oral analgesics. Hold IV PRN opioid dose for analgesic side effects. Notify provider to assess for uncontrolled pain or analgesic side effects. HYDROmorphone (DILAUDID) injection 0.4 mg 0.4 mg, Intravenous, EVERY 2 HOURS PRN, severe pain, Starting on Thu12/22/23 at 1709, IF patient unable to take oral pain medication or pain not controlled with oral analgesics. Hold IV PRN opioid dose for analgesic side effects. Notify provider to assess for uncontrolled pain or analgesic side effects. magnesium hydroxide (MILK OF MAGNESIA) suspension 30 mL 30 mL, Oral, AT BEDTIME, First dose (after last modification) on Fioan 12/24/23 at 2200, Shake well. Hold for loose stools. $Given 12/24/2023 9:38 PM CDT 30 mLs methocarbamol (ROBAXIN) tablet 750 mg 750 mg, Oral, EVERY 6 HOURS PRN, muscle spasms, Starting on Thu12/22/23 at 1709, Hold for sedation. $Given 12/25/2023 7:00 AM CDT 750 mg $Given 12/24/2023 8:46 PM CDT 750 mg $Given 12/24/2023 2:29 PM CDT 750 mg naloxone (NARCAN) injection 0.2 mg 0.2 mg, Intravenous, EVERY 2 MIN PRN, opioid reversal, Starting on Thu12/22/23 at 1814, Administer intravenous route when available and notify provider when administered. For unintended sedation or respiratory depression if all of the below criteria are met: ~ respiratory rate LESS than or EQUAL to 8. ~SaO2 less than 92% and or/end-tidal CO2 is greater than 50. ~ the patient is receiving an opioid, has unintended sedations assessed as RASS (-3), and is currently not on mechanical ventilation. RASS scale moderate (-3) is movement or eye opening to voice but no eye contact. Patient Monitoring Once the patient has demonstrated a response to the naloxone, continue to monitor respiratory rate, depth, oxygen saturation and end-tidal CO2 (if available) every 15 minutes x 2, then every 30 minutes x 2, then every 1 hour x 1 after each naloxone dose. Consider transfer to ICU if patient respiratory parameters have not improved after 4 naloxone doses. naloxone (NARCAN) injection 0.2 mg 0.2 mg, Intramuscular, EVERY 2 MIN PRN, opioid reversal, Starting on Thu12/22/23 at 1813, Administer intramuscular if an intravenous route is not available and notify provider when administered. For unintended sedation or respiratory depression if all of the below criteria are met: ~ respiratory rate LESS than or EQUAL to 8. ~SaO2 less than 92% and or/end-tidal CO2 is greater than 50. ~ the patient is receiving an opioid, has unintended sedations assessed as RASS (-3), and is currently not on mechanical ventilation. RASS scale moderate (-3) is movement or eye opening to voice but no eye contact. Patient Monitoring Once the patient has demonstrated a response to the naloxone, continue to monitor respiratory rate, depth, oxygen saturation and end-tidal CO2 (if available) every 15 minutes x 2, then every 30 minutes x 2, then every 1 hour x 1 after each naloxone dose. Consider transfer to ICU if patient respiratory parameters have not improved after 4 naloxone doses. naloxone (NARCAN) injection 0.4 mg 0.4 mg, Intravenous, EVERY 2 MIN PRN, opioid reversal, Starting on Thu12/22/23 at 1813, Administer intravenous route when available and notify provider when administered. For unintended sedation or respiratory depression if all of the below criteria are met: ~ respiratory rate LESS than or EQUAL to 8. ~ SaO2 less than 92% and or/end-tidal CO2 is greater than 50. ~ the patient is receiving an opioid, has unintended sedation assessed as RASS (-4) or (-5) and patient is currently not on mechanical ventilation. RASS scale (-4) is deep sedation with no response to voice but movement or eye opening to physical stimulation. RASS scale (-5) is unarousable. Patient Monitoring Once the patient has demonstrated a response to the naloxone, continue to monitor respiratory rate, depth, oxygen saturation and end-tidal CO2 (if available) every 15 minutes x 2, then every 30 minutes x 2, then every 1 hour x 1 after each naloxone dose. Consider transfer to ICU if patient respiratory parameters have not improved after 4 naloxone doses. naloxone (NARCAN) injection 0.4 mg 0.4 mg, Intramuscular, EVERY 2 MIN PRN, opioid reversal, Starting on Thu12/22/23 at 1813, Administer intramuscular if an intravenous route is not available and notify provider when administered. For unintended sedation or respiratory depression if all of the below criteria are met: ~ respiratory rate LESS than or EQUAL to 8. ~ SaO2 less than 92% and or/end-tidal CO2 is greater than 50. ~ the patient is receiving an opioid, has unintended sedation assessed as RASS (-4) or (-5) and patient is currently not on mechanical ventilation. RASS scale (-4) is deep sedation with no response to voice but movement or eye opening to physical stimulation. RASS scale (-5) is unarousable. Patient Monitoring Once the patient has demonstrated a response to the naloxone, continue to monitor respiratory rate, depth, oxygen saturation and end-tidal CO2 (if available) every 15 minutes x 2, then every 30 minutes x 2, then every 1 hour x 1 after each naloxone dose. Consider transfer to ICU if patient respiratory parameters have not improved after 4 naloxone doses. nitroFURantoin macrocrystal-monohydrate (MACROBID) capsule 100 mg Routine, 100 mg, Oral, DAILY, First dose (after last modification) on Thu12/23/23 at 0800, For 21 days, Indications: Perioperative Pharmacoprophylaxis $Given 12/25/2023 8:25 AM CDT 100 mg $Given 12/24/2023 8:32 AM CDT 100 mg $Given 12/23/2023 9:19 AM CDT 100 mg ondansetron (ZOFRAN ODT) ODT tab 4 mg 4 mg, Oral, EVERY 6 HOURS PRN, nausea, vomiting, Starting on Thu12/22/23 at 2049, This is Step 1 of nausea and vomiting management. If nausea not resolved in 15 minutes, go to Step 2 prochlorperazine (COMPAZINE). Do not push through foil backing. Peel back foil and gently remove. Place on tongue immediately. Administration with liquid unnecessary With dry hands, peel back foil backing and gently remove tablet. Do not push oral disintegrating tablet through foil backing. Administer immediately on tongue and oral disintegrating tablet dissolves in seconds, then swallow with saliva. Liquid not required. ondansetron (ZOFRAN) injection 4 mg 4 mg, Intravenous, EVERY 6 HOURS PRN, nausea, vomiting, Administer over 2-5 Minutes, Starting on Thu12/22/23 at 2049, This is Step 1 of nausea and vomiting management. If nausea not resolved in 15 minutes, go to Step 2 prochlorperazine (COMPAZINE). oxyCODONE (ROXICODONE) tablet 5 mg 5 mg, Oral, EVERY 4 HOURS PRN, moderate pain, Starting on Thu12/22/23 at 1627, Hold oral PRN dose for analgesic side effects. Notify provider to assess for uncontrolled pain or analgesic side effects. Hold while on IV FOOD SERVICE REPRESENTATIVE or with regular IV opioid dosing. $Given 12/23/2023 4:35 AM CDT 5 mg $Given 12/22/2023 8:48 PM CDT 5 mg $Given 12/22/2023 4:27 PM CDT 5 mg oxyCODONE IR (ROXICODONE) tablet 10 mg 10 mg, Oral, EVERY 4 HOURS PRN, severe pain, Starting on Thu12/22/23 at 1627, Hold oral PRN dose for analgesic side effects. Notify provider to assess for uncontrolled pain or analgesic side effects. Hold while on IV FOOD SERVICE REPRESENTATIVE or with regular IV opioid dosing. $Given 12/24/2023 9:38 PM CDT 10 mg $Given 12/24/2023 5:13 PM CDT 10 mg $Given 12/24/2023 12:54 PM CDT 10 mg pantoprazole (PROTONIX) EC tablet 40 mg 40 mg, Oral, EVERY MORNING BEFORE BREAKFAST, First dose on Thu12/23/23 at 0800, DO NOT CRUSH. $Given 12/25/2023 7:00 AM CDT 40 mg $Given 12/24/2023 8:32 AM CDT 40 mg $Given 12/23/2023 7:57 AM CDT 40 mg polyethylene glycol (MIRALAX) Packet 17 g 17 g, Oral, DAILY, First dose on Thu12/23/23 at 0800, To prevent constipation. Mixed prescribed dose in 8 ounces of water, juice or soda. Administer daily starting at 0900 on POD 1. Hold for loose stools. 1 Packet = 17 grams. Mix each gram with at least 1/2 ounce (15 mL) of water - 8 ounces for 17 g dose, 4 ounces for 8.5 g dose, 2 ounces for 4 g dose. Follow with the same volume of water. Hold for loose stools unless being administered as part of a bowel prep regimen or bowel clean out. $Given 12/25/2023 8:25 AM CDT 17 g $Given 12/24/2023 8:32 AM CDT 17 g $Given 12/23/2023 7:56 AM CDT 17 g prochlorperazine (COMPAZINE) injection 10 mg 10 mg, Intravenous, EVERY 6 HOURS PRN, nausea, vomiting, Administer over 1-2 Minutes, Starting on Thu12/22/23 at 0, This is Step 2 of nausea and vomiting management. If nausea not resolved in 15-30 minutes, Notify provider. prochlorperazine (COMPAZINE) tablet 10 mg 10 mg, Oral, EVERY 6 HOURS PRN, nausea, vomiting, Starting on Thu12/22/23 at 2049, This is Step 2 of nausea and vomiting management. If nausea not resolved in 15-30 minutes, Notify provider. ROPivacaine 0.2% (NAROPIN) 750 mL in ON-Q C-Bloc select flow ([id number] holds 600-750 mL) dual cath disposable pump at 1-7 mL/hr, CONTINUOUS, Starting on Thu12/22/23 at 0730, ROUTE = Wound Site. Medication is delivered through a catheter that has been placed by the surgeon into the wound site. $New Bag 12/24/2023 8:47 PM CDT 7 mL/hr Rate/Dose Verify 12/23/2023 1:25 AM CDT 7 mL/hr Rate/Dose Verify 12/22/2023 2:49 PM CDT 7 mL/hr Abdominal Tissue senna-docusate (SENOKOT-S/PERICOLACE) 8.6-50 MG per tablet 1 tablet 1 tablet, Oral, 2 TIMES DAILY, First dose on Thu12/22/23 at 2100, To prevent constipation. Hold for loose stools Hold for loose stools. $Given 12/25/2023 8:25 AM CDT 1 tablet $Given 12/24/2023 8:38 PM CDT 1 tablet $Given 12/24/2023 8:32 AM CDT 1 tablet sodium chloride (PF) 0.9% PF flush 3 mL 3 mL, Intracatheter, EVERY 8 HOURS, First dose on Thu12/22/23 at 2100, to lock peripheral IV dormant line $Given 12/25/2023 1:34 PM CDT 3 mLs $Given 12/23/2023 9:32 PM CDT 3 mLs sodium chloride (PF) 0.9% PF flush 3 mL 3 mL, Intracatheter, EVERY 1 MIN PRN, line flush, other, to ensure patency or to lock dormant line, Starting on Thu12/22/23 at 2050 $Given 12/25/2023 6:46 AM CDT 10 mLs $Given 12/24/2023 6:15 AM CDT 10 mLs $Given 12/23/2023 6:55 AM CDT 20 mLs documented in this encounter Active and Recently Administered Medications Times are shown in CDT. Scheduled Medication Order 12/23/2023 12/24/2023 12/25/2023 acetaminophen (TYLENOL) tablet 975 mg (COMPLETED) 975 mg, Oral, EVERY 8 HOURS, First dose on Thu12/22/23 at 1530, For 3 days, Administer for multimodal surgical pain management. Maximum acetaminophen dose from all sources = 75 mg/kg/day not to exceed 4 grams/day. 0757 ($Given - Provider: Radha Merida RN)1602 ($Given - Provider: Shobha Sneed RN) 0014 ($Given - Provider: Patsy Bryant, CARLOS)0819 (Not Given - Provider: Shobha Sneed RN - Reason: Patient/family refused)1606 ($Given - Provider: Shobha Sneed, CARLOS)2248 ($Given - Provider: Isaac Hutchins, CARLOS) 0700 ($Given - Provider: Isaac Hutchins RN) alvimopan (ENTEREG) capsule 12 mg (COMPLETED) 12 mg, Oral, ONCE, On Thu12/23/23 at 0630, For 1 dose, PRE OP DOSE: Give 30 min to 5 hours prior to surgery. POST OP DOSES: Start on POD #1. Discontinue after first bowel movement, at hospital discharge, or after 14 post-op doses. Nurses administering alvimopam (ENTEREG) are required to review page 1 of the alvimopam (ENTEREG) Guidelines (see reference link). This is an [employer] program requirement., Will the patient have an open or laparoscopic partial bowel resection with primary anastomosis? Yes, Has the patient recently used opioids? (Contraindicated if opioids used daily for last 7 days; not recommended if greater than 3 doses in last 7 days): No, Does the patient have any of the following: history of myocardial infarction, bowel obstruction or recent surgery for bowel obstruction, end-stage renal disease, severe hepatic impairment: No, Was the pre-operative dose of alvimopan omitted? No, Will the patient have a pancreatic or gastric anastomosis during surgery? No, As the prescriber, I certify that I have reviewed the Entereg educational materials as required by the FDA (see reference link): Yes 0425 ($Given - Provider: Radha Merida RN) alvimopan (ENTEREG) capsule 12 mg (CANCELED) 12 mg, Oral, 2 TIMES DAILY, First dose (after last reorder) on Thu12/23/23 at 2000, For 13 doses, PRE OP DOSE: Give 30 min to 5 hours prior to surgery. POST OP DOSES: Start on POD #1. Discontinue after first bowel movement, at hospital discharge, or after 14 post-op doses. Nurses administering alvimopam (ENTEREG) are required to review page 1 of the alvimopam (ENTEREG) Guidelines (see reference link). This is an [employer] program requirement., Will the patient have an open or laparoscopic partial bowel resection with primary anastomosis? Yes, Has the patient recently used opioids? (Contraindicated if opioids used daily for last 7 days; not recommended if greater than 3 doses in last 7 days): No, Does the patient have any of the following: history of myocardial infarction, bowel obstruction or recent surgery for bowel obstruction, end-stage renal disease, severe hepatic impairment: No, Was the pre-operative dose of alvimopan omitted? No, Will the patient have a pancreatic or gastric anastomosis during surgery? No, As the prescriber, I certify that I have reviewed the Entereg educational materials as required by the FDA (see reference link): Yes 196 ($Given - Provider: Kelly Nicohlas RN) 0832 ($Given - Provider: Shobha Sneed RN)203 ($Given - Provider: Isaac Hutchins RN) 0701 (Not Given - Provider: Isaac Hutchins RN - Reason: Order parameters not met - Comment: pt had fist bowel movement) apixaban ANTICOAGULANT (ELIQUIS) tablet 2.5 mg 2.5 mg, Oral, 2 TIMES DAILY, First dose on Thu12/25/23 at 0800, Indications: DVT-PE Prophylaxis 0825 ($Given - Provider: Aaron Noonan, CARLOS) bacitracin ointment Topical, 3 TIMES DAILY, First dose on Thu12/22/23 at 2100, Apply to meatus every shift while catheter is in place. 0919 ($Given - Provider: Radha Merida RN)1325 ($Given - Provider: Shobha Sneed RN)2132 ($Given - Provider: Kelly Nicholas, CARLOS) 0832 ($Given - Provider: Shobha Sneed, CARLOS)1430 ($Given - Provider: Shobha Sneed, CARLOS)2038 ($Given - Provider: Isaac Hutchins RN) 0702 ($Given - Provider: Isaac Hutchins RN)1335 ($Given - Provider: Aaron Noonan, CARLOS) bisacodyl (DULCOLAX) suppository 10 mg 10 mg, Rectal, DAILY, First dose (after last modification) on Thu12/25/23 at 0800, Hold for loose stools. 0825 (Not Given - Provider: Aaron Noonan RN - Reason: Patient/family refused) furosemide (LASIX) injection 20 mg (COMPLETED) 20 mg, Intravenous, ONCE, Administer over 1-3 Minutes, On Thu12/23/23 at 0730, For 1 dose 0757 ($Given - Provider: Radha Merida RN) gabapentin (NEURONTIN) capsule 100 mg 100 mg, Oral, 3 TIMES DAILY, First dose on Thu12/22/23 at 2000, For post-operative pain 0757 ($Given - Provider: Radha Merida RN)1324 ($Given - Provider: Shobha Sneed, CARLOS)2121 ($Given - Provider: Kelly Nicholas, CARLOS) 0832 ($Given - Provider: Shobha Sneed, CARLOS)1429 ($Given - Provider: Shobha Sneed, CARLOS)2038 ($Given - Provider: Isaac Hutchins RN) 0825 ($Given - Provider: Aaron Noonan RN)1334 ($Given - Provider: Aaron Noonan, CARLOS) heparin ANTICOAGULANT injection 5,000 Units (CANCELED) 5,000 Units, Subcutaneous, EVERY 8 HOURS, First dose on Thu12/23/23 at 0830, Check to make sure start date/time is 12-24 hours post op unless documented complication. Continue until discharge to home. HOLD if platelet count falls below 50% of baseline or less than 100,000/??L and notify provider. High concentration heparin. Not for line flush or cath care. 0919 ($Given - Provider: Radha Merida RN)1602 ($Given - Provider: Shobha Sneed, RN) 0029 ($Given - Provider: Patsy Bryant, CARLOS)0832 (Not Given - Provider: Shobha Sneed, RN - Reason: Patient/family refused)1607 ($Given - Provider: Shobha Sneed, RN)2341 ($Given - Provider: Isaac Hutchins, CARLOS) heparin lock flush 100 unit/mL injection 5-10 mL 5-10 mL, Intracatheter, EVERY 28 DAYS, First dose on Thu12/25/23 at 1500, To de-access each port in dual implanted port. Flush with 10 mL NS sodium chloride 0.9% flush followed by 5 mL heparin (100 units/mL) at discharge and at least every 28 days. MAX: 5 mL per each port lumen 1458 ($Given - Provider: Aaron Noonan, CARLOS) magnesium hydroxide (MILK OF MAGNESIA) suspension 30 mL 30 mL, Oral, AT BEDTIME, First dose (after last modification) on Thu12/24/23 at 2200, Shake well. Hold for loose stools. 213 ($Given - Provider: Isaac Hutchins, CARLOS) nitroFURantoin macrocrystal-monohydrate (MACROBID) capsule 100 mg Routine, 100 mg, Oral, DAILY, First dose (after last modification) on Thu12/23/23 at 0800, For 21 days, Indications: Perioperative Pharmacoprophylaxis 0919 ($Given - Provider: Radha Merida, CARLOS) 0832 ($Given - Provider: Shobha Sneed, CARLOS) 0825 ($Given - Provider: Aaron Noonan, CARLOS) pantoprazole (PROTONIX) EC tablet 40 mg 40 mg, Oral, EVERY MORNING BEFORE BREAKFAST, First dose on Thu12/23/23 at 0800, DO NOT CRUSH. 0757 ($Given - Provider: Radha Merida RN) 0832 ($Given - Provider: Shobha Sneed, RN) 0700 ($Given - Provider: Isaac Hutchins, CARLOS) polyethylene glycol (MIRALAX) Packet 17 g 17 g, Oral, DAILY, First dose on Thu12/23/23 at 0800, To prevent constipation. Mixed prescribed dose in 8 ounces of water, juice or soda. Administer daily starting at 0900 on POD 1. Hold for loose stools. 1 Packet = 17 grams. Mix each gram with at least 1/2 ounce (15 mL) of water - 8 ounces for 17 g dose, 4 ounces for 8.5 g dose, 2 ounces for 4 g dose. Follow with the same volume of water. Hold for loose stools unless being administered as part of a bowel prep regimen or bowel clean out. 0756 ($Given - Provider: Radha Merida RN) 0832 ($Given - Provider: Shobha Sneed, CARLOS) 0825 ($Given - Provider: Aaron Noonan, CARLOS) senna-docusate (SENOKOT-S/PERICOLACE) 8.6-50 MG per tablet 1 tablet 1 tablet, Oral, 2 TIMES DAILY, First dose on Thu12/22/23 at 2100, To prevent constipation. Hold for loose stools Hold for loose stools. 0757 ($Given - Provider: Radha Merida RN)2121 ($Given - Provider: Kelly Nicholas RN) 0832 ($Given - Provider: Shobha Sneed, CARLOS)2038 ($Given - Provider: Isaac Hutchins, CARLOS) 0825 ($Given - Provider: Aaron Noonan, CARLOS) sodium chloride (PF) 0.9% PF flush 3 mL 3 mL, Intracatheter, EVERY 8 HOURS, First dose on Thu12/22/23 at 2100, to lock peripheral IV dormant line 0657 (Not Given - Provider: Oksana Flor RN - Reason: Patient sleeping)1208 (Not Given - Provider: Shobha Sneed RN - Reason: IV Infusing)2132 ($Given - Provider: Kelly Nicholas, CARLOS) 0450 (Not Given - Provider: Patsy Bryant RN - Reason: IV Infusing)1201 (Not Given - Provider: Shobha Sneed RN - Reason: IV Infusing)203 (Not Given - Provider: Isaac Hutchins RN - Reason: IV Infusing) 0448 (Not Given - Provider: Isaac Hutchins RN - Reason: IV Infusing)1334 ($Given - Provider: Aaron Noonan RN) Continuous Medication Order 12/23/2023 12/24/2023 12/25/2023 lactated ringers infusion (CANCELED) at 10 mL/hr, Intravenous, CONTINUOUS, Starting on Thu12/22/23 at 1500, Until Thu12/25/23 at 0707 0933 (Rate/Dose Verify - Provider: Radha Merida RN)0936 ($New Bag - Provider: Radha Merida RN)1602 (Rate/Dose Change - Provider: Shobha Sneed RN)2122 (Rate/Dose Verify - Provider: Kelly Nicholas, CARLOS)2217 ($New Bag - Provider: Zofia Prasad RN) 1432 ($New Bag - Provider: Shobha Sneed RN)2039 (Rate/Dose Verify - Provider: Isaac Hutchins RN) 0635 (Rate/Dose Change - Provider: Isaac Hutchins RN)0728 (Stopped - Provider: Isaac Hutchins RN) ROPivacaine 0.2% (NAROPIN) 750 mL in ON-Q C-Bloc select flow ([id number] holds 600-750 mL) dual cath disposable pump at 1-7 mL/hr, CONTINUOUS, Starting on Thu12/22/23 at 0730, ROUTE = Wound Site. Medication is delivered through a catheter that has been placed by the surgeon into the wound site. 0125 (Rate/Dose Verify - Provider: Oksana Flor RN - Comment: 7 on each) 2047 ($New Bag - Provider: Isaac Hutchins RN - Comment: 7 ml on each) PRN Medication Order 12/23/2023 12/24/2023 12/25/2023 acetaminophen (TYLENOL) tablet 650 mg 650 mg, Oral, EVERY 4 HOURS PRN, other, For optimal non-opioid multimodal pain management to improve pain control., Starting on Thu12/25/23 at 0000, May give first dose 4 hours after last scheduled dose of acetaminophen (TYLENOL). Maximum acetaminophen dose from all sources = 75 mg/kg/day not to exceed 4 grams/day. acetaminophen-caffeine (EXCEDRIN TENSION HEADACHE) 500-65 MG tablet 2 tablet 2 tablet, Oral, EVERY 6 HOURS PRN, mild pain, Starting on Thu12/23/23 at 1917, Each tablet contains 500 mg APAP 0829 ($Given - Provider: Shobha Sneed RN) benzocaine-menthol (CHLORASEPTIC MAX) 15-10 MG lozenge 1-2 lozenge 1-2 lozenge, Buccal, EVERY 1 HOUR PRN, sore throat, Starting on Thu12/22/23 at 2050, For sore throat without fever. famotidine (PEPCID) tablet 20 mg 20 mg, Oral, 2 TIMES DAILY PRN, other, Heartburn, Starting on Thu12/22/23 at 2050 HYDROmorphone (DILAUDID) injection 0.2 mg(Linked Group 1) 0.2 mg, Intravenous, EVERY 2 HOURS PRN, moderate pain, Starting on Thu12/22/23 at 1709, IF patient unable to take oral pain medication or pain not controlled with oral analgesics. Hold IV PRN opioid dose for analgesic side effects. Notify provider to assess for uncontrolled pain or analgesic side effects. HYDROmorphone (DILAUDID) injection 0.4 mg(Linked Group 1) 0.4 mg, Intravenous, EVERY 2 HOURS PRN, severe pain, Starting on Thu12/22/23 at 1709, IF patient unable to take oral pain medication or pain not controlled with oral analgesics. Hold IV PRN opioid dose for analgesic side effects. Notify provider to assess for uncontrolled pain or analgesic side effects. hydrOXYzine HCl (ATARAX) tablet 25 mg 25 mg, Oral, EVERY 6 HOURS PRN, itching, Starting on Thu12/22/23 at 2050, Caution to be used when administering multiple Central Nervous System (MENTAL RETARDATION NURSE) depressing meds within a short time frame. lidocaine (LMX4) cream Topical, EVERY 1 HOUR PRN, pain, with VAD insertion, Starting on Thu12/22/23 at 2050, Apply at least 30 minutes prior to VAD insertion in divided doses as needed for size of site for insertion. MAX Dose: 2.5 g (?? of 5 g tube) Do NOT give if patient has a history of allergy to any local anesthetic or any pepe product. Do NOT use both lidocaine intradermal/subcutaneous injection and the lidocaine cream on the same site. lidocaine 1 % 0.1-1 mL 0.1-1 mL, Other, EVERY 1 HOUR PRN, mild pain with VAD insertion, Starting on Thu12/22/23 at 2049, MAX dose 1 mL subcutaneous OR intradermal along the side of the vein in divided doses as needed for VAD insertion. Do NOT give if patient has a history of allergy to any local anesthetic or any pepe product. Do NOT use both lidocaine intradermal/subcutaneous injection and the lidocaine cream on the same site. methocarbamol (ROBAXIN) tablet 750 mg 750 mg, Oral, EVERY 6 HOURS PRN, muscle spasms, Starting on Thu12/22/23 at 1709, Hold for sedation. 0830 ($Given - Provider: Shobha Sneed RN)1429 ($Given - Provider: Shobha Sneed RN)2046 ($Given - Provider: Isaac Hutchins RN) 0700 ($Given - Provider: Isaac Hutchins RN) naloxone (NARCAN) injection 0.2 mg(Linked Group 2) 0.2 mg, Intravenous, EVERY 2 MIN PRN, opioid reversal, Starting on Thu12/22/23 at 1814, Administer intravenous route when available and notify provider when administered. For unintended sedation or respiratory depression if all of the below criteria are met: ~ respiratory rate LESS than or EQUAL to 8. ~SaO2 less than 92% and or/end-tidal CO2 is greater than 50. ~ the patient is receiving an opioid, has unintended sedations assessed as RASS (-3), and is currently not on mechanical ventilation. RASS scale moderate (-3) is movement or eye opening to voice but no eye contact. Patient Monitoring Once the patient has demonstrated a response to the naloxone, continue to monitor respiratory rate, depth, oxygen saturation and end-tidal CO2 (if available) every 15 minutes x 2, then every 30 minutes x 2, then every 1 hour x 1 after each naloxone dose. Consider transfer to ICU if patient respiratory parameters have not improved after 4 naloxone doses. naloxone (NARCAN) injection 0.2 mg(Linked Group 2) 0.2 mg, Intramuscular, EVERY 2 MIN PRN, opioid reversal, Starting on Thu12/22/23 at 1814, Administer intramuscular if an intravenous route is not available and notify provider when administered. For unintended sedation or respiratory depression if all of the below criteria are met: ~ respiratory rate LESS than or EQUAL to 8. ~SaO2 less than 92% and or/end-tidal CO2 is greater than 50. ~ the patient is receiving an opioid, has unintended sedations assessed as RASS (-3), and is currently not on mechanical ventilation. RASS scale moderate (-3) is movement or eye opening to voice but no eye contact. Patient Monitoring Once the patient has demonstrated a response to the naloxone, continue to monitor respiratory rate, depth, oxygen saturation and end-tidal CO2 (if available) every 15 minutes x 2, then every 30 minutes x 2, then every 1 hour x 1 after each naloxone dose. Consider transfer to ICU if patient respiratory parameters have not improved after 4 naloxone doses. naloxone (NARCAN) injection 0.4 mg(Linked Group 2) 0.4 mg, Intravenous, EVERY 2 MIN PRN, opioid reversal, Starting on Thu12/22/23 at 1814, Administer intravenous route when available and notify provider when administered. For unintended sedation or respiratory depression if all of the below criteria are met: ~ respiratory rate LESS than or EQUAL to 8. ~ SaO2 less than 92% and or/end-tidal CO2 is greater than 50. ~ the patient is receiving an opioid, has unintended sedation assessed as RASS (-4) or (-5) and patient is currently not on mechanical ventilation. RASS scale (-4) is deep sedation with no response to voice but movement or eye opening to physical stimulation. RASS scale (-5) is unarousable. Patient Monitoring Once the patient has demonstrated a response to the naloxone, continue to monitor respiratory rate, depth, oxygen saturation and end-tidal CO2 (if available) every 15 minutes x 2, then every 30 minutes x 2, then every 1 hour x 1 after each naloxone dose. Consider transfer to ICU if patient respiratory parameters have not improved after 4 naloxone doses. naloxone (NARCAN) injection 0.4 mg(Linked Group 2) 0.4 mg, Intramuscular, EVERY 2 MIN PRN, opioid reversal, Starting on Thu12/22/23 at 1814, Administer intramuscular if an intravenous route is not available and notify provider when administered. For unintended sedation or respiratory depression if all of the below criteria are met: ~ respiratory rate LESS than or EQUAL to 8. ~ SaO2 less than 92% and or/end-tidal CO2 is greater than 50. ~ the patient is receiving an opioid, has unintended sedation assessed as RASS (-4) or (-5) and patient is currently not on mechanical ventilation. RASS scale (-4) is deep sedation with no response to voice but movement or eye opening to physical stimulation. RASS scale (-5) is unarousable. Patient Monitoring Once the patient has demonstrated a response to the naloxone, continue to monitor respiratory rate, depth, oxygen saturation and end-tidal CO2 (if available) every 15 minutes x 2, then every 30 minutes x 2, then every 1 hour x 1 after each naloxone dose. Consider transfer to ICU if patient respiratory parameters have not improved after 4 naloxone doses. ondansetron (ZOFRAN ODT) ODT tab 4 mg(Linked Group 3) 4 mg, Oral, EVERY 6 HOURS PRN, nausea, vomiting, Starting on Thu12/22/23 at 2049, This is Step 1 of nausea and vomiting management. If nausea not resolved in 15 minutes, go to Step 2 prochlorperazine (COMPAZINE). Do not push through foil backing. Peel back foil and gently remove. Place on tongue immediately. Administration with liquid unnecessary With dry hands, peel back foil backing and gently remove tablet. Do not push oral disintegrating tablet through foil backing. Administer immediately on tongue and oral disintegrating tablet dissolves in seconds, then swallow with saliva. Liquid not required. ondansetron (ZOFRAN) injection 4 mg(Linked Group 3) 4 mg, Intravenous, EVERY 6 HOURS PRN, nausea, vomiting, Administer over 2-5 Minutes, Starting on Thu12/22/23 at 2049, This is Step 1 of nausea and vomiting management. If nausea not resolved in 15 minutes, go to Step 2 prochlorperazine (COMPAZINE). oxyCODONE (ROXICODONE) tablet 5 mg(Linked Group 4) 5 mg, Oral, EVERY 4 HOURS PRN, moderate pain, Starting on Thu12/22/23 at 1627, Hold oral PRN dose for analgesic side effects. Notify provider to assess for uncontrolled pain or analgesic side effects. Hold while on IV FOOD SERVICE REPRESENTATIVE or with regular IV opioid dosing. 0435 ($Given - Provider: Oksana Flor RN)1601 (See Alternative - Provider: Shobha Sneed RN) 0015 (See Alternative - Provider: Patsy Bryant RN)0428 (See Alternative - Provider: Patsy Bryant RN)0830 (See Alternative - Provider: Shobha Sneed RN)1254 (See Alternative - Provider: Shobha Sneed RN)1713 (See Alternative - Provider: Shobha Sneed RN)2138 (See Alternative - Provider: Isaac Hutchins RN) oxyCODONE IR (ROXICODONE) tablet 10 mg(Linked Group 4) 10 mg, Oral, EVERY 4 HOURS PRN, severe pain, Starting on Thu12/22/23 at 1627, Hold oral PRN dose for analgesic side effects. Notify provider to assess for uncontrolled pain or analgesic side effects. Hold while on IV FOOD SERVICE REPRESENTATIVE or with regular IV opioid dosing. 0435 (See Alternative - Provider: Oksana Flor RN)1601 ($Given - Provider: Shobha Sneed RN) 0015 ($Given - Provider: Patsy Bryant RN)0428 ($Given - Provider: Patsy Bryant RN)0830 ($Given - Provider: Shobha Sneed RN)1254 ($Given - Provider: Shobha Sneed, CARLOS)1713 ($Given - Provider: Shobha Sneed, CARLOS)2138 ($Given - Provider: Isaac Hutchins RN) prochlorperazine (COMPAZINE) injection 10 mg(Linked Group 5) 10 mg, Intravenous, EVERY 6 HOURS PRN, nausea, vomiting, Administer over 1-2 Minutes, Starting on Thu12/22/23 at 2050, This is Step 2 of nausea and vomiting management. If nausea not resolved in 15-30 minutes, Notify provider. prochlorperazine (COMPAZINE) tablet 10 mg(Linked Group 5) 10 mg, Oral, EVERY 6 HOURS PRN, nausea, vomiting, Starting on Thu12/22/23 at 2049, This is Step 2 of nausea and vomiting management. If nausea not resolved in 15-30 minutes, Notify provider. sodium chloride (PF) 0.9% PF flush 3 mL 3 mL, Intracatheter, EVERY 1 MIN PRN, line flush, other, to ensure patency or to lock dormant line, Starting on Thu12/22/23 at 2049 0655 ($Given - Provider: Debbie Cassidy - Comment: lab draw 10ml pre-flush) 0615 ($Given - Provider: Tano Jacome) 0646 ($Given - Provider: Danielle Wilson - Comment: lab) Linked Groups Order Group 1: HYDROmorphone (DILAUDID) injection 0.2 mgJump to med 0.2 mg, Intravenous, EVERY 2 HOURS PRN, moderate pain, Starting on Thu12/22/23 at 1709, IF patient unable to take oral pain medication or pain not controlled with oral analgesics. Hold IV PRN opioid dose for analgesic side effects. Notify provider to assess for uncontrolled pain or analgesic side effects. Or HYDROmorphone (DILAUDID) injection 0.4 mgJump to med 0.4 mg, Intravenous, EVERY 2 HOURS PRN, severe pain, Starting on Thu12/22/23 at 1709, IF patient unable to take oral pain medication or pain not controlled with oral analgesics. Hold IV PRN opioid dose for analgesic side effects. Notify provider to assess for uncontrolled pain or analgesic side effects. Group 2: naloxone (NARCAN) injection 0.2 mgJump to med 0.2 mg, Intravenous, EVERY 2 MIN PRN, opioid reversal, Starting on Thu12/22/23 at 1814, Administer intravenous route when available and notify provider when administered. For unintended sedation or respiratory depression if all of the below criteria are met: ~ respiratory rate LESS than or EQUAL to 8. ~SaO2 less than 92% and or/end-tidal CO2 is greater than 50. ~ the patient is receiving an opioid, has unintended sedations assessed as RASS (-3), and is currently not on mechanical ventilation. RASS scale moderate (-3) is movement or eye opening to voice but no eye contact. Patient Monitoring Once the patient has demonstrated a response to the naloxone, continue to monitor respiratory rate, depth, oxygen saturation and end-tidal CO2 (if available) every 15 minutes x 2, then every 30 minutes x 2, then every 1 hour x 1 after each naloxone dose. Consider transfer to ICU if patient respiratory parameters have not improved after 4 naloxone doses. Or naloxone (NARCAN) injection 0.4 mgJump to med 0.4 mg, Intravenous, EVERY 2 MIN PRN, opioid reversal, Starting on Thu12/22/23 at 1813, Administer intravenous route when available and notify provider when administered. For unintended sedation or respiratory depression if all of the below criteria are met: ~ respiratory rate LESS than or EQUAL to 8. ~ SaO2 less than 92% and or/end-tidal CO2 is greater than 50. ~ the patient is receiving an opioid, has unintended sedation assessed as RASS (-4) or (-5) and patient is currently not on mechanical ventilation. RASS scale (-4) is deep sedation with no response to voice but movement or eye opening to physical stimulation. RASS scale (-5) is unarousable. Patient Monitoring Once the patient has demonstrated a response to the naloxone, continue to monitor respiratory rate, depth, oxygen saturation and end-tidal CO2 (if available) every 15 minutes x 2, then every 30 minutes x 2, then every 1 hour x 1 after each naloxone dose. Consider transfer to ICU if patient respiratory parameters have not improved after 4 naloxone doses. Or naloxone (NARCAN) injection 0.2 mgJump to med 0.2 mg, Intramuscular, EVERY 2 MIN PRN, opioid reversal, Starting on Thu12/22/23 at 181, Administer intramuscular if an intravenous route is not available and notify provider when administered. For unintended sedation or respiratory depression if all of the below criteria are met: ~ respiratory rate LESS than or EQUAL to 8. ~SaO2 less than 92% and or/end-tidal CO2 is greater than 50. ~ the patient is receiving an opioid, has unintended sedations assessed as RASS (-3), and is currently not on mechanical ventilation. RASS scale moderate (-3) is movement or eye opening to voice but no eye contact. Patient Monitoring Once the patient has demonstrated a response to the naloxone, continue to monitor respiratory rate, depth, oxygen saturation and end-tidal CO2 (if available) every 15 minutes x 2, then every 30 minutes x 2, then every 1 hour x 1 after each naloxone dose. Consider transfer to ICU if patient respiratory parameters have not improved after 4 naloxone doses. Or naloxone (NARCAN) injection 0.4 mgJump to med 0.4 mg, Intramuscular, EVERY 2 MIN PRN, opioid reversal, Starting on Thu12/22/23 at 1814, Administer intramuscular if an intravenous route is not available and notify provider when administered. For unintended sedation or respiratory depression if all of the below criteria are met: ~ respiratory rate LESS than or EQUAL to 8. ~ SaO2 less than 92% and or/end-tidal CO2 is greater than 50. ~ the patient is receiving an opioid, has unintended sedation assessed as RASS (-4) or (-5) and patient is currently not on mechanical ventilation. RASS scale (-4) is deep sedation with no response to voice but movement or eye opening to physical stimulation. RASS scale (-5) is unarousable. Patient Monitoring Once the patient has demonstrated a response to the naloxone, continue to monitor respiratory rate, depth, oxygen saturation and end-tidal CO2 (if available) every 15 minutes x 2, then every 30 minutes x 2, then every 1 hour x 1 after each naloxone dose. Consider transfer to ICU if patient respiratory parameters have not improved after 4 naloxone doses. Group 3: ondansetron (ZOFRAN ODT) ODT tab 4 mgJump to med 4 mg, Oral, EVERY 6 HOURS PRN, nausea, vomiting, Starting on Thu12/22/23 at 2049, This is Step 1 of nausea and vomiting management. If nausea not resolved in 15 minutes, go to Step 2 prochlorperazine (COMPAZINE). Do not push through foil backing. Peel back foil and gently remove. Place on tongue immediately. Administration with liquid unnecessary With dry hands, peel back foil backing and gently remove tablet. Do not push oral disintegrating tablet through foil backing. Administer immediately on tongue and oral disintegrating tablet dissolves in seconds, then swallow with saliva. Liquid not required. Or ondansetron (ZOFRAN) injection 4 mgJump to med 4 mg, Intravenous, EVERY 6 HOURS PRN, nausea, vomiting, Administer over 2-5 Minutes, Starting on Thu12/22/23 at 2049, This is Step 1 of nausea and vomiting management. If nausea not resolved in 15 minutes, go to Step 2 prochlorperazine (COMPAZINE). Group 4: oxyCODONE (ROXICODONE) tablet 5 mgJump to med 5 mg, Oral, EVERY 4 HOURS PRN, moderate pain, Starting on Thu12/22/23 at 1627, Hold oral PRN dose for analgesic side effects. Notify provider to assess for uncontrolled pain or analgesic side effects. Hold while on IV FOOD SERVICE REPRESENTATIVE or with regular IV opioid dosing. Or oxyCODONE IR (ROXICODONE) tablet 10 mgJump to med 10 mg, Oral, EVERY 4 HOURS PRN, severe pain, Starting on Thu12/22/23 at 1627, Hold oral PRN dose for analgesic side effects. Notify provider to assess for uncontrolled pain or analgesic side effects. Hold while on IV FOOD SERVICE REPRESENTATIVE or with regular IV opioid dosing. Group 5: prochlorperazine (COMPAZINE) injection 10 mgJump to med 10 mg, Intravenous, EVERY 6 HOURS PRN, nausea, vomiting, Administer over 1-2 Minutes, Starting on Thu12/22/23 at 2050, This is Step 2 of nausea and vomiting management. If nausea not resolved in 15-30 minutes, Notify provider. Or prochlorperazine (COMPAZINE) tablet 10 mgJump to med 10 mg, Oral, EVERY 6 HOURS PRN, nausea, vomiting, Starting on Thu12/22/23 at 2050, This is Step 2 of nausea and vomiting management. If nausea not resolved in 15- 30 minutes, Notify provider. documented in this encounter Care Teams Rn Progressive Care Relationship Specialty Start Date End Date No Ref-Primary, Physician PCP - General 12/22/23 Alvaro Clark MD [address] [facility] [address] [place] [address] Assigned Surgical Provider 07/24/23 Yessica Mcleod, LDIIAC [address] [place], [place] [id number] Assigned Cancer Care Provider 12/22/23 documented as of this encounter
--- OUTSIDE RECORDS SUMMARY | 2023-12-26 23:06 | XMS_ITS | Referral Summary ---
Author Organization [facility] Address [address] [place] [address] Care Team Providers Care Health Outcomes Liaison Name Role Phone Alvaro Clark MD Unavailable No Ref-Primary, Physician Primary Care Provider Yessica Mcleod PA-C Unavailable Encounters Date Type Department Care Team Description 12/26/2023 MyC Medical Advice [facility] [address] 200 [facility] [place] [address] Alvaro Clark MD 12/22/2023 5:50 AM CDT - 12/25/2023 3:50 PM CDT Hospital Encounter [facility] Unit [address] [place] [address] [address] [place] [phone] Alvaro Clark MD Postoperative state (Primary Dx); Bladder cancer (H); Urothelial cancer (H); Lesion of bladder; Post-op pain Discharge Disposition: Home or Self Care 12/22/2023 8:00 AM CDT - 12/22/2023 1:00 PM CDT Surgery [facility] [address] [place] [phone] Alvaro Clark MD CYSTECTOMY, pelvic node dissection WITH ILEAL NEOBLADDER CREATION 12/22/2023 7:48 AM CDT Anesthesia Event [facility] [address] [place] [phone] ButkiAlf sibley MD Johnson, Ashley Keryn, CARLOS PAST DUE ACCOUNTS CLERK 12/11/2023 Travel 12/11/2023 9:00 AM CDT Lab [facility] [address] [place] [phone] Preop examination; 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 (H) 12/11/2023 PRE VISIT [facility] [address] [place] [phone] Rizwana Tejeda, RESIDENT PHYSICIAN PAST DUE ACCOUNTS CLERK 12/11/2023 8:00 AM CDT Office Visit [facility] Assessment [address] [place] [address] Rizwana Tejeda, RESIDENT PHYSICIAN PAST DUE ACCOUNTS CLERK Preop examination (Primary Dx); 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 (H) 12/08/2023 PRE VISIT [facility] [address] [place] [address] Rizwana Tejeda, RESIDENT PHYSICIAN PAST DUE ACCOUNTS CLERK 12/01/2023 MyC Medical Advice [address] [place] 200 [facility] [place] [address] Sabra Wilcox 12/01/2023 Orders Only [address] [place] 200 [facility] [place] [address] Dylan Guerin PA Urothelial cancer (H) (Primary Dx) 11/27/2023 Travel 11/27/2023 2:30 PM CDT Oncology Visit [address] [place] 200 [facility] [place] [address] Yessica Mcleod PA-C Urothelial cancer (H) (Primary Dx); 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) 11/26/2023 Telephone [facility] [address] [place] [address] Alvaro Clark MD Schedule Surgery 11/25/2023 10:58 AM CDT - 11/25/2023 11:59 PM CDT Hospital Encounter [facility] Imaging [address] [address] Ky Torres MD Non-Fv Credentialed Provider, Radiology 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) Discharge Disposition: Home or Self Care 11/25/2023 10:56 AM CDT - 11/25/2023 2:17 PM CDT Hospital Encounter [facility] [address] [phone] Non-Fv Credentialed Provider, Radiology Kathryn Page MD Discharge Disposition: Home or Self Care 11/20/2023 Orders Only [facility] [address] 4th [place] [address] Alvaro Clark MD 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 (H) (Primary Dx) 11/20/2023 Travel 11/20/2023 11:00 AM CDT Office Visit [address] [place] 200 [facility] [place] [phone] Alvaro Clark MD Urothelial cancer (H) (Primary Dx) 11/18/2023 Orders Only [facility] Services - Cancer Care Service Line [address] [place] [phone] Ky Torres MD 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) (Primary Dx) 11/17/2023 MyC Medical Advice [facility] [address] [facility] [place] [address] Sixto Whalen APRN CNP 11/10/2023 1:48 PM CDT - 11/10/2023 11:59 PM CDT Hospital Encounter [facility] Imaging [address] [place] [phone] Yessica Mcleod PA-C Left leg swelling Discharge Disposition: Home or Self Care 11/10/2023 Travel 11/10/2023 8:30 AM CDT Infusion Therapy Visit [address] 200 [place] [phone] Ky Torres MD Urothelial cancer (H) (Primary Dx) 11/10/2023 7:45 AM CDT Lab [address] 200 [place] [phone] Ky Torres MD Urothelial cancer (H) (Primary Dx) 11/10/2023 8:00 AM CDT Oncology Visit [address] [place] 200 [place] [phone] Yessica Mcleod PA-C Urothelial cancer (H) (Primary Dx); Left leg swelling 10/28/2023 9:00 AM CDT Infusion Therapy Visit [address] 200 [place] [phone] Yessica Mcleod PA-C Urothelial cancer (H) (Primary Dx) 10/27/2023 Travel 10/27/2023 2:30 PM CDT Virtual Visit [facility] [address] [facility] [place] [phone] Sixto Whalen APRN CNP Urothelial cancer (H) (Primary Dx); 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) 10/27/2023 12:30 PM CDT Lab [address] [place] [address] Yessica Mcleod PA-C Urothelial cancer (H) (Primary Dx) 10/22/2023 Orders Only [facility] [address] [place] [address] Gold Luma F, [facility] 10/21/2023 Travel 10/21/2023 9:00 AM CDT Ancillary Procedure [facility] [address] [place] [address] Ky Torres MD Urothelial cancer (H); 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) 10/20/2023 Orders Only [facility] - Cancer Care Service Line [address] [place] [phone] Ky Torres MD Urothelial cancer (H) (Primary Dx); 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) 10/13/2023 MyC Medical Advice [address] [place] 200 Counts include 234 beds at the [facility] [phone] Charlie Almonte RN Urothelial cancer (H) 10/13/2023 9:30 AM CDT Infusion Therapy Visit [facility] [place] [address] [place] [phone] Yessica Mcleod PA-C Urothelial cancer (H) (Primary Dx) 10/12/2023 Travel 10/12/2023 2:30 PM CDT Virtual Visit [facility] [address] 610 [facility] [place] [phone] Sixto Whalen APRN CNP Urothelial cancer (H) (Primary Dx) 10/12/2023 12:30 PM CDT Lab [facility] [address] [place] [phone] Yessica Mcleod PA-C Urothelial cancer (H) (Primary Dx) 10/07/[address] 200 [place] [address] Ky Torres MD 09/29/[address] [place] [address] Ky Torres MD Symptoms 09/29/2023 Travel 09/29/2023 8:00 AM CDT Infusion Therapy Visit [address] [place] [address] Ky Torres MD Urothelial cancer (H) (Primary Dx) 09/28/2023 MyC Medical Advice [address] [place] [place] [phone] Charlie Almonte RN Urothelial cancer (H) (Primary Dx) 09/26/2023 MyC Medical Advice [facility] [address] [place] [phone] Ky Torres MD from Last 3 Months Allergies Active Allergy Reactions Criticality Noted Date [...] management to improve pain control.) 50 tablet 07/26/202 4 Active apixaban ANTICOAGULANT (ELIQUIS) 2.5 MG [...] Urothelial cancer 09/06/2023 Lesion of bladder 07/10/2023 Social History Tobacco Use Types Packs/Day Years [...] Description 01/01/2024 9:45 AM CDT Office Visit [address] [place] 200 [facility] [place] [phone] Alvaro Clark MD 420 [facility] [address] [place] [address] 02/26/2024 7:45 AM CDT Lab [facility] [address] 200 [place] [address] Ky Torres MD 420 [facility] [address] [place], [place] [address] 02/26/2024 8:40 AM CDT Appointment [facility] Imaging [address] [place] [phone] Yessica Mcleod, PAJose Luis [address] [place] [address] 03/04/2024 8:00 AM CDT Oncology Visit [address] [place] 200 [facility] [place] [phone] Ky Torres MD [address] [address]96[address] Medical Devices Implanted Type Area Apparel Sales Associate Device Identifier Shelf Expiration Date Model / Serial / Lot Port-08/28/2023 Implanted:Qty: 1 on 08/28/2023 by Pipe Hernandez MD Port Right: Chest Wall [id number] 07/29/2026 / / [id number] Stent Ureteral Stenographer Secretary Diversion 07fr [id number] - [id number] Implanted:Qty: 1 on 12/22/2023 by Alvaro Clark MD at [facility] Stent N/A: Abdomen [employer] [id number] 11/19/2026 [id number] / / [id number] Procedures Procedure Name Priority Date/Time Associated Diagnosis [...] AM CDT ABO/RH TYPE AND SCREEN STAT 07/23/202 4 6:47 AM CDT TYPE AND SCREEN, ADULT STAT 4 6:47 AM CDT ABO/RH TYPE AND SCREEN Routine 4 8:32 AM CDT Preop examination 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 (H) TYPE AND SCREEN, ADULT Routine 4 8:32 AM CDT Preop examination Urothelial carcinoma [...] neoplasm of trigone of urinary bladder (H) NM COLLECTION VENOUS BLOOD VENIPUNCTURE Routine 10/21/2023 8:38 [...] - BODY FLUIDS OR DERABLES [facility] 500 [facility], Room [address] [place] [phone] * (ABNORMAL) Basic metabolic panel (12/25/2023 6:50 [...] 7:35 AM CDT [facility] Comment:eGFR calculated us2020 [...] LAB - BLOOD ORDERABL ES UU LAB[facility]AT[facility] [place] [facility] 500 [facility], [address] [phone] * (ABNORMAL) CBC with platelets (12/25/2023 6:50 [...] LAB - BLOOD ORDERABL ES UU LAB[facility] [place] [facility] 500 [facility], Room [address] * Phosphorus (12/24/2023 6:16 AM CDT) Phosphorus 2.9 2.5 - 4.5 mg/dL 12/24/2023 7:26 AM CDT [facility] Blood (Portacath) IVAD (Port) / Unknown 12/24/2023 6:16 AM CDT 12/24/2023 6:41 AM CDT Alberto Tejeda MD LAB - BLOOD ORDERABL ES U[facility] [place] [facility] 500 [facility], Room [address] * Magnesium (12/24/2023 6:16 AM CDT) Only the most recent of5 resultswithin the time period is included. Magnesium 1.8 1.7 - 2.3 mg/dL 12/24/2023 10:59 AM CDT [facility] Blood (Portacath) IVAD (Port) / Unknown 12/24/2023 6:16 AM CDT 12/24/2023 6:41 AM CDT Alberto Tejeda MD LAB - BLOOD ORDERABL ES Performing Organization Address City/[facility]/ZIP Co de Phone Number LABORATORY [facility] [place] [facility] 500 [facility], Room [address] [place] [phone] [place] [address] * (ABNORMAL) Glucose by meter (12/23/2023 6:42 AM CDT) Only the most recent of2 resultswithin the time period is included. GLUCOSE BY METER POCT 118(H) 70 - 99 mg/dL 12/23/2023 6:49 AM CDT U LABORATORY POC Blood, Capillary BLOOD SPECIMEN / Unknown 12/23/2023 6:42 AM CDT 12/23/2023 6:49 AM CDT Alvaro Clark MD LAB - BEAKER POCT Performing Organization Address City/[facility]/ZIP Co de Phone Number LABORATORY POC [facility] [place] [facility] 500 [facility], Room [address] [place] [phone] * Platelet count (12/22/2023 9:55 PM CDT) Platelet Count 179 150 - 450 10e3/uL 12/22/2023 10:12 PM CDT U LABORATORY Blood STRUCTURE OF RIGHT HAND / Unknown IVAD (Port) / Unknown 12/22/2023 9:55 PM CDT 12/22/2023 10:04 PM CDT Alberto Tejeda MD LAB - BLOOD ORDERABL ES U LABORATORY [facility] [place] [facility] [address] [facility], Room 3[address]580 [place] [address] * XR Abdomen Port 1 View (12/22/2023 [...] findings. ALF MEHTA DO Alberto Tejeda MD IMKeo DIAGNOSTIC IMAGI NG ORDERABLES * ANE AIRWAY ETT PERFORMABLE (12/22/2023 8:02 AM CDT) Narrative Nessa Pereira APRN TRUST EVALUATION SUPERVISOR - 12/22/2023 8:02 AM CDT Nessa Preeira APRN TRUST EVALUATION SUPERVISOR ? 12/22/2023 ??8:22 AM Airway ? Patient location during procedure: OR ? Procedure Start/Stop Times: 12/22/2023 8:02 AM Staff - ? TRUST EVALUATION SUPERVISOR: Nessa Pereira APRN TRUST EVALUATION SUPERVISOR ? Performed By: CRNAIndications and Patient Condition [...] Time: 12/22/2023 8:02 AM Alf Olson MD NM ANESTHESIA * Adult Type and Screen (12/22/2023 6:47 AM CDT) Only the most recent of2 resultswithin the time period is included. ABO/RH(D) A NEG 12/22/2023 6:16 AM CDT U BLOOD BANK Antibody Screen Negative Negative 12/22/2023 6:16 AM CDT U BLOOD BANK SPECIMEN EXPIRATION DATE [id number] 12/22/2023 6:16 AM T BLOOD BANK Blood STRUCTURE OF RIGHT HAND / Unknown Venipuncture / Unknown 12/22/2023 6:47 AM CDT 12/22/2023 6:56 AM CDT Alvaro Clark MD LAB - BLOOD BANK LICHA T ORDER [facility] BLOOD BANK [address] [place] [address], [facility] * CT Chest/Abdomen/Pelvis w Contrast (11/25/2023 12:03 [...] color flow and augmentation. Procedure Note Kandi Mcclain DO - 11/10/2023 ULTRASOUND LEFT LOWER EXTREMITY VENOUS [...] left lower extremity. KANDI MCCLAIN DO Yessica Haynes PA-C IMG US ORDERABLES * (ABNORMAL) CBC [...] LAB - B LOOD ORDERABLES RH LABORATORY [facility] [address] [facility] [address] Lab (1st floor, no room number) [place] [address] * (ABNORMAL) Manual Differential (11/10/2023 7:33 AM [...] LAB - B LOOD ORDERABLES RH LABORATORY [facility] [address] Lab (1st floor, no room number) [place] [address], [facility] * (ABNORMAL) Comprehensive metabolic panel (11/10/2023 7:33 AM CDT) Only the most recent of4 resultswithin the time period is included. [facility] Sodium 140 135 - 145 mmol/L 11/10/2023 [...] LAB - B LOOD ORDERABLES RH LABORATORY [facility] [address] Lab (1st floor, no room number) [place] [address], [facility] * PET Oncology (Eyes to Thighs) [...] Advance Directives For more information, please contact: [phone] * Full Code (Latest Code Status on File) Date Activated Date Inactivated Comments 12/22/2023 8:50 PM 12/25/2023 5:51 PM All basic an d advanced life-sustaining interventions are performed as appropriate Question Answer Comments Code status determined by: Discussion with patie nt/ legal decision maker Care Teams Health Outcomes Liaison Relationship Specialty Start Date End Date No Ref-Primary, Physician PCP - General 12/22/23 Alvaro Clark MD [address] [place] [address] Assigned Surgical Provider 07/24/23 Yessica Mcleod, LIDIAC [address] [place] [address] Assigned Cancer Care Provider 12/22/23
--- OUTSIDE RECORDS SUMMARY | 2023-12-26 23:06 | XMS_ITS | Encounter Summary ---
Author Organization [facility] Address [address] [place] [address] Care Team Providers Care Cable Hooker Name Role Phone Alvaro Clark MD Unavailable No Ref-Primary, Physician Primary Care Provider Yessica Mcleod PA-C Unavailable Encounter Details Date Type Department Care Team (Late st Contact Info) Description 12/26/2023 MyC Medical Advice [address] [facility] [place] [phone] Alvaro Clark MD [address] [place] [address] [address] [place] [address] Social History Tobacco Use Types Packs/Day Years [...] on file documented as of this encounter Plan of Treatment Upcoming Encounters Date Type Department Care Team (Late Contact Info) Description 01/01/2024 9:45 AM CDT Office Visit [address] [facility] [place] [phone] Alvaro Clark MD 420 [facility] 394 [place] [address] 02/26/2024 7:45 AM CDT Lab [address] [place] [address] Ky Torres MD 420 [facility] 480 [place] [address] 02/26/2024 8:40 AM CDT Appointment [facility] Imaging [address] [place] [address] [place] [phone] Yessica Mcleod PA-C [address] [place] [phone] 03/04/2024 8:00 AM CDT Oncology Visit [address] 200 [facility] [place] [address] Ky Torres MD [address] [address] documented as of this encounter Visit Diagnoses Not on filedocumented in this encounter Care Teams Cable Hooker Relationship Specialty Start Date End Date No Ref-Primary, Physician PCP - General 12/22/23 Alvaro Clark MD [address] [place] [address] Assigned Surgical Provider 07/24/23 Yessica Mcleod PA-C [address] [place] [address] Assigned Cancer Care Provider 12/22/23 documented as of this encounter
--- OUTSIDE RECORDS SUMMARY | 2023-12-26 23:06 | XMS_ITS | Encounter Summary ---
Author Organization [facility] Address [address] [place] [id number] Care Team Providers Care It Lead Name Role Phone Alvaro Clark MD Unavailable [...] CREATION possible ileal conduit [facility] [address] [place] [address] Referral ID Status Reason Start Date Expiration Date Visits Re quested Visits Authorized [id number] 1 1 Encounter Details Date Type Department Care Team (Latest Contact Info) Description 12/22/2023 5:50 AM CDT - 12/25/2023 3:50 PM CDT Hospital Encounter [facility] [address] [place] [address] [place] [address] Alvaro Clark MD [address] [facility] [address] [place] [address] Postoperative state (Primary Dx); Bladder cancer (H); Urothelial cancer (H); Lesion of bladder; Post-op pain Discharge Disposition: Home or Self Care Social History Tobacco Use Types Packs/Day Years Used Date Smoking Tobacco: Former Cigarettes 1.5 30 1 980 - 2009 Passive Smoke Exposure: Past Smokeless [...] Noe Erickson MD, MPH Urology Resident, PGY-2 GASTROENTEROLOGY NURSE medications: Prior to Admission medications Medication Sig [...] questions or concerns regarding this patient. Note poem writer may be unavailable. To access [facility] from intranet: under Applications --> Business Applications select [facility] [employer] and search Urology Adult & Pediatric/[facility]. Please note that any question about a urology inpatient, [place] or [place], should go to job code [id number]. * [...] Noe Erickson MD, MPH Urology Resident, PGY-2 GASTROENTEROLOGY NURSE medications: Prior to Admission medications Medication Sig Start Date End Date Taking? Authorizing Provider acetaminophen-caffeine (EXCEDRIN TENSION HEADACHE) 500-65 MG TABS Take 2 tablets by mouth every 6 hours as needed for mild pain (PRN HEADACHE) Yes Reported, Patient diphenhydrAMINE HCl (BENADRYL ALLERGY PO) Take 1 tablet by mouth as needed Yes Reported, Patient Contacting the urology team: Please see [facility] and page on-call clinician with any questions or concerns regarding this patient. Note poem writer may be unavailable. To access [facility] from intranet: under Applications --> Business Applications select [facility] and search Urology Adult & Pediatric/[facility]. Please note that any question about a urology inpatient, [place] or [place], should go to job code [id number]. * [...] identified Bed Mobility Bed Mobility supine-sit;sit-supine Supine-Sit Pioneer (Bed Mobility) verbal cues Sit-Supine Pioneer (Bed Mobility) verbal cues Transfers Transfers sit-stand transfer Sit-Stand Transfer Sit-Stand Pioneer (Transfers) supervision Balance Balance Assessment no deficits identified Activities of Daily Living BADL Assessment/Intervention bathing;upper body dressing;lower body dressing;clothing fastener management;grooming;toileting Bathing Assessment/Intervention Pioneer Level (Bathing) set up Comment, (Bathing) Per clinical judgement Upper Body Dressing Assessment/Training Comment, (Upper Body Dressing) Per clinical judgement Pioneer Level (Upper Body Dressing) independent Lower Body Dressing Assessment/Training Pioneer Level (Lower Body Dressing) modified independence Clothes Fastener Management Pioneer Level (Clothes Fastener Management) independent Grooming Assessment/Training Pioneer Level (Grooming) supervision Toileting Pioneer Level (Toileting) supervision Clinical Impression Criteria for [...] Evaluation Time OT Eval, Low Complexity Minutes (99418) 10 OT Goals Therapy Frequency (OT) One [...] Management Self-Care/Home Mgmt/ADL, Compensatory, Meal Prep Minutes (17507) 12 Symptoms Noted During/After Treatment (Meal Preparation/Planning Training) increased pain Treatment Detail/Skilled Intervention OT: Facilitated ADL for increased IND within precautions. Pt educated on abdominal precautions, handout provided. Pt completed log roll technique for bed mobility with verbal cues, progressed to mod IND. Reviewed with pt LB dressing within precautions, pt unable to demo figure four, reported he is familiar with using peoplesoft developer tool for LB dressing and has slip on shoes he wears. Educated pt on IADLs with 10 # weight restriction. Pt demo'd mod IND mobility in room once set up with IV pole due to multiple lines, completed ADLS SBA and progressed to mod IND-IND. Therapeutic Activities Therapeutic Activity Minutes (99055) 10 Symptoms noted during/after treatment fatigue Treatment [...] MD. Camilla Larkin MD, PGY-2 Urology Resident GASTROENTEROLOGY NURSE medications: Prior to Admission medications Medication Sig [...] questions or concerns regarding this patient. Note poem writer may be unavailable. To access [facility] from intranet: under Applications --> Business Applications select [facility] and search Urology Adult & Pediatric/[facility]. Please note that any question about a urology inpatient, [place] or [place], should go to job code [id number]. * Zofia Prasad, RN - 12/22/2023 10:29 PM CDT Admitted/transferred [...] cath with red output. BS+, passing flatus. Tofte urge sat Diet: Clears. Skin/Incisions/Drains: Midline abd [...] 5:41 AM CDT Goal Outcome Evaluation: Shift [id number] A&Ox4, cooperative, makes needs known. Abdominal pain [...] Nicholas RN - 12/24/2023 3:41 AM CDT [id number] Status: OD#1 s/p cystectomy with ileal neobladder [...] RN - 12/23/2023 4:27 PM CDT RN pagejuan c Richard, S 7238 7b FYI pt abd distended, very painful, and pt belching. thanks. shobha ho rn [phone] * Plan of Care - Ana Thomason OTR - 12/23/2023 11:53 AM CDT Occupational Therapy Discharge Summary Reason for therapy discharge: All goals and outcomes met, no further needs identified. Progress towards therapy goal(s). See goals on Care Plan in [facility] electronic health record for goal details. [...] Date: 12/22/2023 Attending Surgeon: Alvaro Clark MD Network Technician(s): Alberto Tejeda M.D.-PGY-5 Preoperative Diagnosis(es): High grade [...] in the usual sterile fashion. A #16 German Parry catheter was placed in the bladder. [...] and vein from the lymph node of [place] proximally to join up with the proximal [...] 60 stapler. We opened the windows of [place] for approximately 5 cm alongthe proximal segment [...] sutures. We then performed a standard stapled [id number] functional end-to-end small bowel anastomosis by firing a JORGE 60 stapler along the antimesenteric border and closed the enterotomies for the anastomosis using a TA 60 stapler. The crossing staple lines were reinforced using 3-0 silk suture in a vyjdep-da-biope fashion. A similar suture was done at [...] away from thepouch. We placed a #19 German Brandon drain into the plane between the [...] of Service (when I saw the patient): 07/23/24 * Brief Op Note - Alberto Tejeda MD - 12/22/2023 2:24 PM CDT [facility] Brief Operative Note Pre-operative diagnosis: [...] Implant Name Type Inv. Item Serial No. Attendance Secretary Lot No. LRB No. Used Action STENT URETERAL ANESTHESIA TECHNICIAN DIVERSION [id number] - [id number] Stent STENT URETERAL ANESTHESIA TECHNICIAN DIVERSION [id number] [employer] [id number] N/A 1 Implanted Fluids: 3200 crystalloid 250 albumin Admit Urology Urology to irrigate AM and PM Neobladder pathway Alberto Tejeda MD Urology PGY-5 * Pharmacy-Admission Medication History - Uriel Kaba - 12/15/2023 12:03 PM CDT Juvenile Counselor Pre-operative Admission Medication History Admission medication history [...] 09/14/23 per dispense history. Changes made to GASTROENTEROLOGY NURSE medication list: Added: None Deleted: None Changed: None Allergies reviewed with patient and updates made in EHR: yes Medication History Completed By: Uriel Kaba 12/15/2023 12:03 PM GASTROENTEROLOGY NURSE Med List Medication Sig Last Dose acetaminophen-caffeine (EXCEDRIN TENSION HEADACHE) 500-65 MG TABS Take 2 tablets by mouth every 6 hours as needed for mild pain (PRN HEADACHE) diphenhydrAMINE HCl (BENADRYL ALLERGY PO) Take 1 tablet by mouth as needed Associated attestation - Nabeel Mcghee RPH - 12/15/2023 12:17 PM CDT I was not present during the manager internet retails sales's interview, but I agree with the documentation. Nabeel Mcghee, Pharm.D, BCPS December 15, 2023 documented in this encounter Plan of Treatment Upcoming Encounters Date Type Department Care Team (Late st Contact Info) Description 01/01/2024 9:45 AM CDT Office Visit [facility] [address] [facility] [phone] Alvaro Clark MD [address] [address] 02/26/2024 7:[address] [facility] [id number] [place] [address] [address] [place] [phone] Ky Torres MD 420 [facility] [address] [place] [address] 02/26/2024 8:40 AM CDT Appointment [facility] [address] [place] [phone] Yessica Mcleod, RONALD [address] [place] [address] 03/04/2024 8:00 AM CDT Oncology Visit [address] [facility] [place] [phone] Ky Torres MD [address] [address] Pending Results Name Type Priority Associated Diagnoses [...] - BODY FLUIDS OR DERABLES [facility] [place] Core Lab [address] [facility], [address] [place] [address] * (ABNORMAL) CBC with platelets (12/25/2023 6:50 AM CDT) [facility] WBC Count 9.0 4.0 - 11.0 10e3/uL [...] LAB - BLOOD ORDERABL ES [facility] LAB[facility]ORY [facility] [place] [facility] Lab [address] [facility], [address] [place] [address] * (ABNORMAL) Basic metabolic panel (12/25/2023 [...] LAB - BLOOD ORDERABL ES [facility] [place] [facility] Lab [address] [facility], [address] [place] [address] * Phosphorus (12/24/2023 6:16 AM CDT) [facility] Phosphorus 2.9 2.5 - 4.5 mg/dL 12/24/2023 7:26 AM CDT [facility] Blood (Portacath) IVAD (Port) / Unknown 12/24/2023 6:16 AM CDT 12/24/2023 6:41 AM CDT Alberto Tejeda MD LAB - BLOOD ORDERABL ES Performing Organization Address City/[facility]/ZIP Co de Phone Number U [facility] [place] Core Lab [address] [facility], [address] * Magnesium (12/24/2023 6:16 AM CDT) [facility] Magnesium 1.8 1.7 - 2.3 mg/dL 12/24/2023 10:59 AM CDT [facility] Blood (Portacath) IVAD (Port) / Unknown 12/24/2023 6:16 AM CDT 12/24/2023 6:41 AM CDT Alberto Tejeda MD LAB - BLOOD ORDERABL ES Performing Organization Address City/[facility] Co de Phone Number U LABORATORY [facility] Core Lab [address] [facility], [address] * (ABNORMAL) CBC with platelets (12/24/2023 6:16 AM CDT) [facility] WBC Count 9.8 4.0 - 11.0 10e3/uL [...] LAB - BLOOD ORDERABL ES [facility]ORY [facility] Core Lab [address] [facility], [address] [place] [address] * (ABNORMAL) Basic metabolic panel (12/24/2023 6:16 [...] LAB - BLOOD ORDERABL ES [facility] [place] [facility] Lab [address] [facility], Room [address] [place] [phone] * (ABNORMAL) CBC with platelets (12/23/2023 7:04 [...] LAB - BLOOD ORDERABL ES [facility] [place] [facility] Lab [address] [facility], [address] [place] [address] * (ABNORMAL) Basic metabolic panel (12/23/2023 7:04 [...] LAB - BLOOD ORDERABL ES [facility] [place] [facility] Lab [address] [facility], [address] [place] [address] [place] [address] * (ABNORMAL) Glucose by meter (12/23/2023 6:42 AM CDT) GLUCOSE BY METER POCT 118(H) 70 - 99 mg/dL 12/23/2023 6:49 AM CDT [facility] LAB[facility]ORY POC Blood, Capillary BLOOD SPECIMEN / Unknown 12/23/2023 6:42 AM CDT 12/23/2023 6:49 AM CDT Alvaro Clark MD LAB - BEAKER POCT [facility] POC [facility] [place] Core Lab [address] [facility], [address] [place] [phone] * Platelet count (12/22/2023 9:55 PM CDT) Platelet Count 179 150 - 450 10e3/uL 12/22/2023 10:12 PM CDT [facility] Blood STRUCTURE OF RIGHT HAND / Unknown IVAD (Port) / Unknown 12/22/2023 9:55 PM CDT 12/22/2023 10:04 PM CDT Alberto Tejeda MD LAB - BLOOD ORDERABL ES [facility] [place] Core Lab [address] [facility], [address] [place] [address] * XR Abdomen Port 1 View [...] LAB - BEAKER POCT [facility] POC [facility] [place] Core Lab 500 [facility], [address] [place] [address], [facility] * Adult Type and Screen (12/22/2023 6:47 AM CDT) ABO/RH(D) A NEG 12/22/2023 6:16 AM CDT [facility] BLOOD BANK Antibody Screen Negative Negative 12/22/2023 6:16 AM CDT [facility] BLO[facility] BANK SPECIMEN EXPIRATION DATE [id number] 12/22/2023 6:16 AM CDT [facility] B[facility] B[facility] Blood STRUCTURE OF RIGHT HAND / Unknown Venipuncture / Unknown 12/22/2023 6:47 AM CDT 12/22/2023 6:56 AM CDT Alvaro Clark MD LAB - BLOOD BANK LICHA T ORDER Performing Organization Address [facility] Co de Phone Number BLOOD BANK [address] [place] [address] documented in this encounter Visit Diagnoses Diagnosis Postoperative state- Primary Other postprocedural status Bladder cancer (H) Malignant neoplasm of bladder, part unspecified Urothelial cancer (H) Malignant neoplasm of other specified sites of urinary organs Lesion of bladder Unspecified disorder of bladder Post-op pain Other acute postoperative pain Bladder cancer (H) Malignant neoplasm of bladder, part unspecified documented in this encounter Administered Medications Inactive Administered Medications - up to 3 most recent administrations Medication Order MAR Action Action Date Dose Rate Site acetaminophen (TYLENOL) tablet 975 mg 975 mg, Oral, EVERY 8 HOURS, First dose on Thu12/22/23 at 1530, For 3 days, Administer for multimodal surgical pain management. Maximum acetaminophen dose from all sources = 75 mg/kg/day not to exceed 4 grams/day. $Given 12/25/2023 7:00 AM CDT 975 mg $Given 12/24/2023 10:48 PM CDT 975 mg $Given 12/24/2023 4:06 PM CDT 975 mg acetaminophen-caffeine (EXCEDRIN TENSION HEADACHE) 500-65 MG tablet 2 tablet 2 tablet, Oral, EVERY 6 HOURS PRN, mild pain, Starting on Thu12/23/23 at 1917, Each tablet contains 500 mg APAP $Given 12/24/2023 8:29 AM CDT 2 tablets alvimopan (ENTEREG) capsule 12 mg 12 mg, Oral, ONCE, On Thu12/22/23 at 0700, For 1 dose, TUBE TO 3C PLEASE! PRE OP DOSE: Give 30 min to 5 hours prior to surgery. POST OP DOSES: Start on POD #1. Discontinue after first bowel movement or at hospital discharge. Nurses administering alvimopam (ENTEREG) are required to review page 1 of the alvimopam (ENTEREG) Guidelines (see reference link). This is an E.A.S.E[place] REMS program requirement., Pre-procedure, Will the patient have an open or [...] by the FDA (see reference link): Yes $Given 12/22/2023 7:06 AM CDT 12 mg alvimopan (ENTEREG) capsule 12 mg 12 mg, Oral, ONCE, On Thu12/23/23 at [...] by the FDA (see reference link): Yes $Given 12/23/2023 7:56 AM CDT 12 mg alvimopan (ENTEREG) capsule 12 mg 12 mg, Oral, 2 TIMES DAILY, First [...] by the FDA (see reference link): Yes $Given 12/24/2023 8:38 PM CDT 12 mg $Given 12/24/2023 8:32 AM CDT 12 mg $Given 12/23/2023 9:31 PM CDT 12 mg apixaban ANTICOAGULANT (ELIQUIS) tablet 2.5 mg 2.5 [...] Thu12/25/23 at 0800, Hold for loose stools. furosemide (LASIX) injection 20 mg 20 mg, Intravenous, ONCE, Administer over 1-3 Minutes, On Thu12/23/23 at 0730, For 1 dose $Given 12/23/2023 7:57 AM CDT 20 mg gabapentin (NEURONTIN) capsule 100 mg 100 mg, Oral, 3 TIMES DAILY, First dose on Thu12/22/23 at 2000, For post-operative pain $Given 12/25/2023 1:34 PM CDT 100 mg $Given 12/25/2023 8:25 AM CDT 100 mg $Given 12/24/2023 8:38 PM CDT 100 mg heparin ANTICOAGULANT injection 5,000 Units 5,000 Units, Subcutaneous, PRE-OP/PRE-PROCEDURE, Starting on Thu12/22/23 at 0615, For 1 dose, IF Nerve Block is planned, DELAY SubQ Heparin administration until AFTER Block is placed. IMPORTANT: IF Patient ONLY receiving a TAP Block, Nursing does NOT need to verify order with Anesthesia, and can proceed with medication administration. High concentration heparin. Not for line flush or cath care., Pre-procedure $Given 12/22/2023 6:47 AM CDT 5,000 Uni ts heparin ANTICOAGULANT injection 5,000 Units 5,000 Units, Subcutaneous, EVERY 8 HOURS, First dose on Thu12/23/23 at 0830, Check to make sure start date/time is 12-24 hours post op unless documented complication. Continue until discharge to home. HOLD if platelet count falls below 50% of baseline or less than 100,000/??L and notify provider. High concentration heparin. Not for line flush or cath care. $Given 12/24/2023 11:41 PM CDT 5,000 Units $Given 12/24/2023 4:07 PM CDT 5,000 Units $Given 12/24/2023 12:29 AM CDT 5,000 Units heparin lock flush 100 unit/mL injection 5-10 [...] for uncontrolled pain or analgesic side effects. lactated ringers infusion at 10 mL/hr, Intravenous, CONTINUOUS, Starting on Thu12/22/23 at 1500, Until Thu12/25/23 at 0707 Rate/Dose Change 12/25/2023 6:35 AM CDT 10 mL/hr Rate/Dose Verify 12/24/2023 8:39 PM CDT 50 mL/h r $New Bag 12/24/2023 2:32 PM CDT 50 mL/hr magnesium hydroxide (MILK OF MAGNESIA) suspension 30 mL 30 mL, Oral, AT BEDTIME, First dose (after last modification) on Fiona 12/24/23 at 2200, Shake well. Hold for loose stools. $Given 12/24/2023 9:38 PM CDT 30 mLs meropenem (MERREM) 2 g in sodium chloride 0.9 % 100 mL intermittent infusion Routine, 2 g, Intravenous, PRE-OP/PRE-PROCEDURE, Starting on Thu12/22/23 at 0615, For 1 dose, Indications: Perioperative Pharmacoprophylaxis, Pre-procedure $New Bag 12/22/2023 7:32 AM CDT 2 g 200 mL/hr methocarbamol (ROBAXIN) tablet 750 mg 750 mg, [...] over 2-5 Minutes, Starting on Thu12/22/23 at 205, This is Step 1 of nausea and [...] analgesic side effects. Hold while on IV BILLIARD PARLOR MANAGER or with regular IV opioid dosing. $Given [...] analgesic side effects. Hold while on IV BILLIARD PARLOR MANAGER or with regular IV opioid dosing. $Given [...] 750 mL in ON-Q C-Bloc select flow ([id number] holds 600-750 mL) dual cath disposable pump [...] dormant line, Starting on Thu12/22/23 at 2049 $Given 12/25/2023 6:46 AM CDT 10 mLs [...] 4 grams/day. 0757 ($Given - Provider: Radha Merida, RN)1602 ($Given - Provider: Shobha Sneed, RN) 0014 ($Given - Provider: Patsy Bryant, CARLOS)0819 (Not Given - Provider: Shobha Sneed, RN - Reason: Patient/family refused)1606 ($Given - Provider: Shobha Sneed, RN)2248 ($Given - Provider: Isaac Hutchins, CARLOS) 0700 [...] by the FDA (see reference link): Yes 6481 ($Given - Provider: Radha Merida, RN) alvimopan (ENTEREG) capsule 12 mg (CANCELED) [...] by the FDA (see reference link): Yes 959 ($Given - Provider: Kelly Nicholas RN) 0832 ($Given - Provider: Shobha Sneed RN)203 ($Given - Provider: Isaac Hutchins RN) 0701 (Not Given - Provider: Isaac Hutchins RN - Reason: Order parameters not met - Comment: pt had fist bowel movement) apixaban ANTICOAGULANT (ELIQUIS) tablet 2.5 mg 2.5 mg, Oral, 2 TIMES DAILY, First dose on Thu12/25/23 at 0800, Indications: DVT-PE Prophylaxis 0825 ($Given - Provider: Aaron Noonan RN) bacitracin ointment Topical, 3 TIMES DAILY, First dose on Thu12/22/23 at 2100, Apply to meatus every shift while catheter is in place. 0919 ($Given - Provider: Radha Merida, CARLOS)1325 ($Given - Provider: Shobha Sneed RN)2132 ($Given - Provider: Kelly Nicholas, RN) 0832 ($Given - Provider: Shobha Sneed RN)1430 ($Given - Provider: Shobha Sneed RN)2038 ($Given - Provider: Isaac Hutchins, CARLOS) 0702 ($Given - Provider: Isaac Hutchins, CARLOS)1335 ($Given - Provider: Aaron Noonan, CARLOS) bisacodyl (DULCOLAX) suppository 10 mg 10 mg, Rectal, DAILY, First dose (after last modification) on Thu12/25/23 at 0800, Hold for loose stools. 0825 (Not Given - Provider: Aaron Noonan, CARLOS - Reason: Patient/family refused) furosemide (LASIX) injection 20 mg (COMPLETED) 20 mg, Intravenous, ONCE, Administer over 1-3 Minutes, On Thu12/23/23 at 0730, For 1 dose 0757 ($Given - Provider: Radha Merida RN) gabapentin (NEURONTIN) capsule 100 mg 100 mg, Oral, 3 TIMES DAILY, First dose on Thu12/22/23 at 2000, For post-operative pain 0757 ($Given - Provider: Radha Merida RN)1324 ($Given - Provider: Shobha Sneed RN)2121 ($Given - Provider: Kelly Nicholas, CARLOS) 0832 ($Given - Provider: Shobha Sneed, CARLOS)1429 ($Given - Provider: Shobha Sneed RN)2038 ($Given - Provider: Isaac Hutchins RN) 0825 ($Given - Provider: Aaron Noonan, CARLOS)1334 ($Given - Provider: Aaron Noonan, CARLOS) heparin [...] Sneed, RN) 0029 ($Given - Provider: Patsy Bryant RN)0832 (Not Given - Provider: Shobha Sneed, RN - Reason: Patient/family refused)1607 ($Given - Provider: Shobha Sneed, RN)2341 ($Given - Provider: Isaac Hutchins RN) heparin lock flush 100 unit/mL injection 5-10 [...] 2200, Shake well. Hold for loose stools. 2138 ($Given - Provider: Isaac Hutchins RN) nitroFURantoin macrocrystal-monohydrate (MACROBID) capsule 100 mg Routine, 100 mg, Oral, DAILY, First dose (after last modification) on Thu12/23/23 at 0800, For 21 days, Indications: Perioperative Pharmacoprophylaxis 0919 ($Given - Provider: Radha Merida RN) 0832 ($Given - Provider: Shobha Sneed RN) 0825 ($Given - Provider: Aaron Noonan, CARLOS) pantoprazole (PROTONIX) EC tablet 40 mg 40 mg, Oral, EVERY MORNING BEFORE BREAKFAST, First dose on Thu12/23/23 at 0800, DO NOT CRUSH. 0757 ($Given - Provider: Radha Merida RN) 0832 ($Given - Provider: Shobha Sneed, CARLOS) 0700 ($Given - Provider: Isaac Hutchins RN) polyethylene glycol (MIRALAX) Packet 17 g 17 [...] Nicholas RN) 0832 ($Given - Provider: Shobha Sneed RN)2037 ($Given - Provider: Isaac Hutchins RN) 0825 ($Given - Provider: Aaron Noonan, CARLOS) sodium chloride (PF) 0.9% PF flush 3 mL 3 mL, Intracatheter, EVERY 8 HOURS, First dose on Thu12/22/23 at 2100, to lock peripheral IV dormant line 0657 (Not Given - Provider: Oksana Flor RN - Reason: Patient sleeping)1208 (Not Given - Provider: Shobha Sneed RN - Reason: IV Infusing)213 ($Given - Provider: Kelly Nicholas RN) 0450 (Not Given - Provider: Patsy Bryant RN - Reason: IV Infusing)1201 (Not Given - Provider: Shobha Sneed RN - Reason: IV Infusing)2038 (Not Given - Provider: Isaac Hutchins RN [...] Merida RN)1602 (Rate/Dose Change - Provider: Shobha Sneed, CARLOS)2122 (Rate/Dose Verify - Provider: Kelly Nicholas RN)2217 ($New Bag - Provider: Zofia Prasad RN) 1432 ($New Bag - Provider: Shobha Sneed, CARLOS)2039 (Rate/Dose Verify - Provider: Isaac Hutchins RN) 0635 (Rate/Dose Change - Provider: Isaac Hutchins RN)0728 (Stopped - Provider: Isaac Hutchins RN) ROPivacaine 0.2% (NAROPIN) 750 mL in ON-Q C-Bloc select flow ([id number] holds 600-750 mL) dual cath disposable pump at 1-7 mL/hr, CONTINUOUS, Starting on Thu12/22/23 at 0730, ROUTE = Wound Site. Medication is delivered through a catheter that has been placed by the surgeon into the wound site. 0125 (Rate/Dose Verify - Provider: Oksana Flor RN - Comment: 7 on each) 2046 ($New Bag - Provider: Isaac Hutchins RN [...] PRN, sore throat, Starting on Thu12/22/23 at 2049, For sore throat without fever. famotidine (PEPCID) tablet 20 mg 20 mg, Oral, 2 TIMES DAILY PRN, other, Heartburn, Starting on Thu12/22/23 at 2049 HYDROmorphone (DILAUDID) injection 0.2 mg(Linked Group 1) 0.2 mg, Intravenous, EVERY 2 HOURS PRN, moderate pain, Starting on Thu12/22/23 at 170, IF patient unable to take oral pain medication or pain not controlled with oral analgesics. Hold IV PRN opioid dose for analgesic side effects. Notify provider to assess for uncontrolled pain or analgesic side effects. HYDROmorphone (DILAUDID) injection 0.4 mg(Linked Group 1) 0.4 mg, Intravenous, EVERY 2 HOURS PRN, severe pain, Starting on Thu12/22/23 at 170, IF patient unable to take oral pain medication or pain not controlled with oral analgesics. Hold IV PRN opioid dose for analgesic side effects. Notify provider to assess for uncontrolled pain or analgesic side effects. hydrOXYzine HCl (ATARAX) tablet 25 mg 25 mg, Oral, EVERY 6 HOURS PRN, itching, Starting on Thu12/22/23 at 2049, Caution to be used when administering multiple Central Nervous System (COMMERCIAL FRONT LOAD OPERATOR) depressing meds within a short time frame. lidocaine (LMX4) cream Topical, EVERY 1 HOUR PRN, pain, with VAD insertion, Starting on Thu12/22/23 at 2049, Apply at least 30 minutes prior to [...] VAD insertion, Starting on Thu12/22/23 at 2050, MAX dose 1 mL subcutaneous OR intradermal [...] Shobha Sneed RN)2046 ($Given - Provider: Isaac Hutchins, CARLOS) 0700 ($Given - Provider: Isaac Hutchins, CARLOS) naloxone (NARCAN) injection 0.2 mg(Linked Group 2) [...] analgesic side effects. Hold while on IV BILLIARD PARLOR MANAGER or with regular IV opioid dosing. 0435 ($Given - Provider: Oksana Flor RN)1601 (See Alternative - Provider: Shobha Sneed RN) 0015 (See Alternative - Provider: Patsy Bryant RN)0428 (See Alternative - Provider: Patsy Bryant RN)0830 (See Alternative - Provider: Shobha Sneed RN)1254 (See Alternative - Provider: Shobha Sneed RN)1713 (See Alternative - Provider: Shobha Sneed RN)2138 (See Alternative - Provider: Isaac Hutchins, CARLOS) oxyCODONE IR (ROXICODONE) tablet 10 mg(Linked Group 4) 10 mg, Oral, EVERY 4 HOURS PRN, severe pain, Starting on Thu12/22/23 at 1627, Hold oral PRN dose for analgesic side effects. Notify provider to assess for uncontrolled pain or analgesic side effects. Hold while on IV BILLIARD PARLOR MANAGER or with regular IV opioid dosing. 0435 (See Alternative - Provider: Oksana Flor RN)1601 ($Given - Provider: Shobha Sneed RN) 0015 ($Given - Provider: Patsy Bryant RN)0428 ($Given - Provider: Patsy Bryant RN)0830 ($Given - Provider: Shobha Sneed RN)1254 ($Given - Provider: Shobha Sneed RN)1713 ($Given - Provider: Shobha Sneed RN)2138 ($Given - Provider: Isaac Hutchins, CARLOS) prochlorperazine (COMPAZINE) injection 10 mg(Linked Group 5) 10 mg, Intravenous, EVERY 6 HOURS PRN, nausea, vomiting, Administer over 1-2 Minutes, Starting on Thu12/22/23 at 2049, This [...] over 2-5 Minutes, Starting on Thu12/22/23 at 2050, This is Step 1 of nausea and [...] analgesic side effects. Hold while on IV BILLIARD PARLOR MANAGER or with regular IV opioid dosing. Or oxyCODONE IR (ROXICODONE) tablet 10 mgJump to med 10 mg, Oral, EVERY 4 HOURS PRN, severe pain, Starting on Thu12/22/23 at 1627, Hold oral PRN dose for analgesic side effects. Notify provider to assess for uncontrolled pain or analgesic side effects. Hold while on IV BILLIARD PARLOR MANAGER or with regular IV opioid dosing. Group [...] provider. documented in this encounter Care Teams It Lead Relationship Specialty Start Date End Date No Ref-Primary, Physician PCP - General 12/22/23 Alvaro Clark MD [address] [place] [id number] Assigned Surgical Provider 07/24/23 Yessica Mcleod PA-C [address] [place] [id number] Assigned Cancer Care Provider 12/22/23 documented as of this encounter
--- OUTSIDE RECORDS SUMMARY | 2023-12-26 23:07 | XMS_ITS | Encounter Summary ---
Author Organization [facility] Address [address] [place] [id number] Care Team Providers Care Program Director/Air Personality Name Role Phone Alvaro Clark MD Unavailable System, Provider Not In Primary Care Provider Un available Sixto Whalen APRN FURNACE KEEPER Unavailable [phone] Reason for Visit * Reason Comments Chemotherapy MVAC (cycle 4 day 1) * Treatment and Therapy Plans (Routine) - Authorized Specialty Diagnoses / Procedures Referred By Virgil ca Referred To Contact Infusion Therapy Diagnoses Urothelial cancer (H) Procedures ZZC INJ PALONOSETRON HCL, 25MCG ZZC CISPLATIN 10 MG INJECITON ZZC VINBLASTINE SULFATE INJ, 1 MG ZZPR INJ PEGFILGRAST EX BIO 0.5MG ZZC FOSAPREPITANT INJECTION 1 MG ZZC DOXORUBICIN HCL INJECTION, 10MG Ky Torres MD [address] [facility] [address] [place] [address] Rh Cancer Infus [facility] [place] [address] [address] [place] [address] Referral ID Status Reason Start Date Expiration Date V isits Requested Visits Authorized [id number] Authorized 09/06/2023 03/26/2024 100 1 Encounter Details Date Type Department Care Team (Late st Contact Info) Description 11/10/2023 8:30 AM CDT Infusion Therapy Visit [facility] [place] [address] [address] [place] [address] Ky Torres MD 420 [facility] [address] [place], [place] [phone] Urothelial cancer (H) (Primary Dx) Social History Tobacco Use Types Packs/Day Years [...] on file documented as of this encounter Patient Instructions * Patient Instructions* Celena Devlin RN - 11/10/2023 8:30 AM CDT Your On-body Neulasta injector was applied today at 1:25pm . The injection will start 27 hours after application, at 4:25 pm tomorrow. Note: the medication will be delivered over 45 minutes. Before removing the injector, check to see that the light is either solid green or off and that the indicator line is on empty. If there is a red light on the injector at any time or wetness on the dressing or under the injector after removal, you must report this information. Call [phone] during business hours. Refer to the written information given to you for additional questions. documented in this encounter Progress Notes * Celena Devlin RN - 11/10/2023 8:30 AM CDT Infusion Nursing Note: Oleg Richard presents today for MVAC (cycle 4 day 1). Patient seen by provider today: Yes: STACEY Zuluaga Insurance Operations Rep present during visit today: Not Applicable. 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 Intravenous Access: Implanted Port. Treatment Conditions: Lab Results Component Value Date HGB 11.4 (L) 11/10/2023 WBC 14.8 (H) 11/10/2023 ANEU 9.3 (H) 11/10/2023 ANEUTAUTO 4.2 09/29/2023 PLT 158 11/10/2023 Lab Results Component Value Date NA 140 11/10/2023 POTASSIUM 4.0 11/10/2023 MAG 1.7 11/10/2023 CR 0.74 11/10/2023 JUANY 8.8 11/10/2023 BILITOTAL <0.2 11/10/2023 ALBUMIN 3.8 11/10/2023 ALT 21 11/10/2023 AST 23 11/10/2023 Results reviewed, labs MET treatment parameters, ok to proceed with treatment. ECHO 09/24/23; EF at 69%. ONPRO Was placed on patient's: back of left arm. Was placed at 1:25 PM Podpal used: Yes ONPRO injector device Lot number: [id number] Patient education included: what patient can expect after application, what colored lights mean on the device, when to remove device, when and where to call with questions or issues, all patients questions answered, and that Neulasta administration will occur at 4:30 pm on 11/11/23. Patient tolerated administration well. Post Infusion Assessment: Patient tolerated infusion without incident. Blood return noted pre and post infusion. Site patent and intact, free from redness, edema or discomfort. No evidence of extravasations. Access discontinued per protocol. Discharge Plan: Discharge instructions reviewed with: Patient. Patient and/or family verbalized understanding of discharge instructions and all questions answered. AVS to patient via MYCHART. Patient will return 1-2 weeks for next appointment. Patient discharged in stable condition accompanied by: mother. Departure Mode: Ambulatory. Celena Devlin RN documented in this encounter Plan of Treatment Upcoming Encounters Date Type Department Care Team (Late st Contact Info) Description 01/01/2024 9:45 AM CDT Office Visit [facility] [address] [facility] [place] [phone] Alvaro Clark MD 420 [facility] [address] [place] [address] 02/26/2024 7:45 AM CDT Lab [facility] [address] [place] [phone] Ky Torres MD 420 [facility] [address] [place] [address] 02/26/2024 8:40 AM CDT Appointment [facility] [address] [place] [address] Yessica Mcleod PA-C [address] [place] [address] 03/04/2024 8:00 AM CDT Oncology Visit [address] [facility] [place] [phone] Ky Torres MD [address] [id number] documented as of this encounter Visit Diagnoses Diagnosis Urothelial cancer (H)- Primary Malignant neoplasm of other specified sites of urinary organs documented in this encounter Administered Medications Inactive Administered Medications - up to 3 most recent administrations Medication Order MAR Action Action Date Dose Rate Site 0.9% sodium chloride + KCl 20 mEq/L 1,000 mL with magnesium sulfate 2 g infusion 1,000 mL, at 500 mL/hr, Intravenous, ONCE, 1 dose, On Thu11/10/23 at 1145, Post-CISplatin. Central line: administer over 1 hour. Peripheral line: administer over 2 hours. (Give to counteract the known toxicity of Cisplatin) $New Bag 11/10/2023 12:31 PM CDT 350 mL/hr CISplatin (PLATINOL) 140 mg, mannitol 25 % 25 g in sodium chloride 0.9 % 1,290 mL infusion 140 mg, Intravenous, ONCE, On Thu11/10/23 at 0945, For 1 dose, Administer over 2 Hours, If combined with Mannitol, 0.2 micron filter required. Dose changed from 144 mg to 140 mg per rounding policy. Change within 10%. (dosed at 70mg/m2) Tx plan 2.05 m2 Shai Castaneda PharmD November 10, 2023 Possible Vesicant or Irritant depending on concentration. See extravasation policy. May require hepatic and/or renal dose or frequency adjustments. See reference link for guidelines. If this chemotherapy plan contains a taxane (paclitaxel, paclitaxel-protein bound, docetaxel, or cabazitaxel) on the same day, administer this [place] agent after the taxane. $New Bag 11/10/2023 10:34 AM CDT 140 mg 645 mL/hr DOXOrubicin (ADRIAMYCIN) injection 60 mg 60 mg (rounded from 61.5 mg = 30 mg/m2 ? 2.05 m2 Treatment Plan BSA from Recorded weight), Intravenous Push, ONCE, On Thu11/10/23 at 0930, For 1 dose, Administer over 5-10 Minutes, Protect from light. Vesicant. May require hepatic and/or renal dose or frequency adjustments. See reference link for guidelines. $Given 11/10/2023 9:53 AM CDT 60 mg fosaprepitant (EMEND) 150 mg, dexAMETHasone (DECADRON) 12 mg in sodium chloride 0.9 % 276.2 mL intermittent infusion Intravenous, Administer over 20 Minutes, ONCE, On Thu11/10/23 at 0845, For 1 dose, Give 30 mins before treatment. $New Bag 11/10/2023 8:53 AM CDT 828.6 mL/hr heparin lock flush 100 unit/mL injection 5 mL 5 mL, Intracatheter, ONCE PRN, To de-access CVC Impanted port or lock each lumen, Starting on Thu11/10/23 at 0918, PORT: to de-access, instill 5 mL before PORT needle is removed and every 28 days. Apheresis: only for use when patient is NOT under care of apheresis services; after a 10 mL NS flush, lock each lumen of the catheter with 5 mL. $Given 11/10/2023 1:40 PM CDT 5 mLs methotrexate injection 61.5 mg 61.5 mg (30 mg/m2 ? 2.05 m2 Treatment Plan BSA from Recorded weight), Intravenous Push, ONCE, Administer over 2-3 Minutes, On Thu11/10/23 at 0930, For 1 dose, Protect from light. May require hepatic and/or renal dose or frequency adjustments. See reference link for guidelines. Administering doses with an Equashield system requires an LL-2 adapter. Obtain from pharmacy if not stocked on patient care unit. $Given 11/10/2023 10:11 AM CDT 61.5 mg palonosetron (ALOXI) injection 0.25 mg 0.25 mg, Intravenous, ONCE, On Thu11/10/23 at 0845, For 1 dose, Give 30 mins before treatment. $Given 11/10/2023 8:53 AM CDT 0.25 mg pegfilgrastim (NEULASTA Onpro Kit) On-body injector 6 mg 6 mg, Subcutaneous, ONCE, On Thu11/10/23 at 0930, For 1 dose, Attention: Use this order for Neulasta Onpro - on-body injector OR use the clinic administered Neulasta (in the next Day below). Do not use both orders. For prevention of chemotherapy induced neutropenia. $Given 11/10/2023 1:20 PM CDT 6 mg Left Arm sodium chloride (PF) 0.9% PF flush 3-20 mL 3-20 mL, Intracatheter, EVERY 1 MIN PRN, line flush, post meds or blood draw, Starting on Thu11/10/23 at 0918, PIV: 3 mL after each use & PRN to access patency Midline, valved catheters, or PORT- 10mL after each use, PRN to access patency, 20 mL post blood draw Non-valved catheters: 10 mL after each use & PRN to access patency; 20mL flush pre and post blood draws or blood administration Apheresis: only for use when patient is NOT under care of apheresis services; 10 mL after each use & PRN to assess patency; 20 mL after blood draw. $Given 11/10/2023 1:38 PM CDT 20 mLs sodium chloride 0.9% BOLUS 1,000 mL Intravenous, 1,000 mL, ONCE, at 1,000 mL/hr, Administer over 1 Hours, On Thu11/10/23 at 0930, For 1 dose, Pre-CISplatin. Start 30-60 minutes prior to chemo. (Give to counteract the known toxicity of Cisplatin) $New Bag 11/10/2023 9:20 AM CDT 1,000 mLs 1000 mL/hr vinBLAStine (VELBAN) 6.2 mg in sodium chloride 0.9 % 33.7 mL infusion 6.2 mg (rounded from 6.15 mg = 3 mg/m2 ? 2.05 m2 Treatment Plan BSA from Recorded weight), Intravenous, ONCE, On Thu11/10/23 at 0930, For 1 dose, Sigourney hang. For Intravenous Use Only. Fatal If Given By Other Routes. Vesicant. May require hepatic and/or renal dose or frequency adjustments. See reference link for guidelines. $New Bag 11/10/2023 10:02 AM CDT 6.2 mg documented in this encounter Care Teams Program Director/Air Personality Relationship Specialty Start Date End Date System, Provider Not In PCP - General Clinic 08/13/23 12/21/23 Alvaro Clark MD 420 [facility] [address] [place], [place] [address] Assigned Surgical Provider 07/24/23 Sixto Whalen APRN CNP [address] [place] [id number] Assigned Cancer Care Provider 10/22/23 12/21/23 documented as of this encounter
--- OUTSIDE RECORDS SUMMARY | 2023-12-26 23:07 | XMS_ITS | Encounter Summary ---
Author Organization [facility] Address [address] [place] [address] Care Team Providers Care Principal Archaeologist Name Role Phone Alvaro Clark MD Unavailable System, Provider Not In Primary Care Provider Un available Sixto Whalen APRN INSTRUMENT ADJUSTER Unavailable [phone] Encounter Details Date Type Department Care Team (Latest Contact Info) Description 11/10/2023 Travel Social History Tobacco Use Types Packs/Day Years Used Date Smoking Tobacco: Former Cigarettes 1.5 30 1 2009 Passive Smoke Exposure: Past Smokeless Tobacco: [...] Description 01/01/2024 9:45 AM CDT Office Visit [place] [address] [facility] [place] [phone] Alvaro Clark MD 420 [facility] [address] [place], [place] [phone] 02/26/2024 7:45 AM CDT Lab [facility] [place] [address] [place] [phone] Ky Torres MD 420 [facility] [address] [place] [address] 02/26/2024 8:40 AM CDT Appointment [facility] [address] [place] [phone] Yessica Mcleod PA-C [address] [place], [place] [phone] 03/04/2024 8:00 AM CDT Oncology Visit [facility] [address] [address] [facility] [place] [phone] Melissa, Ky Acharya MD [address] [address] documented as of this encounter Visit Diagnoses Not on filedocumented in this encounter Care Teams Principal Archaeologist Relationship Specialty Start Date End Date System, Provider Not In PCP - General Clinic 08/13/23 12/21/23 Alvaro Clark MD [address] [place] [address] [phone] Assigned Surgical Provider 07/24/23 Sixto Whalen APRN INSTRUMENT ADJUSTER [address] [place] [address] Assigned Cancer Care Provider 10/22/23 12/21/23 documented as of this encounter
--- OUTSIDE RECORDS SUMMARY | 2023-12-26 23:07 | XMS_ITS | Encounter Summary ---
Author Organization [place] Address [address] [place] [address] Care Team Providers Care Rn Field Name Role Phone Alvaro Clark MD Unavailable System, Provider Not In Primary Care Provider Un available Sixto Whalen APRN FLOOR SCRAPER Unavailable [phone] Reason for Visit * Reason Comments Pre-Op Exam Encounter Details Date Type Department Care Team (Late st Contact Info) Description 12/11/2023 8:00 AM CDT Office Visit [facility] Preoperative Assessment [facility] [address] 5th [place] [phone] Rizwana Tejeda APRN FLOOR SCRAPER [address] [place] [address] Preop examination (Primary Dx); 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 (H) Anesthesia Record Procedure Summary Procedure Name Responsible Anesthesiologist Anesthesia Start Time Anesthesia Stop Time CYSTECTOMY, pelvic node dissection WITH ILEAL NEOBLADDER CREATION (Abdomen) Forest Olson MD 12/22/23 0748 12/22/23 1437 Events Date Time Event Comment 12/22/2023 0654 YOUTH ACCOMMODATION SUPPORT WORKER Ready for Procedure 0747 0748 An Start Anesthesia Star t is defined as when the anesthesia provider assumed care, began anesthesia prep, remained continuously present with the patient, and excludes all time for performing the pre-anesthesia evaluation. The Pre-Anesthesia Evaluation was completed before Anesthesia Start. 0750 An Start Data 0750 AN REASSESS I attest that I have identified and re-evaluated the patient immediately before the induction of anesthesia and I am satisfied that the anesthetic plan is suitable for the patient's condition and procedure. The first vital signs recorded are pre- induction. Nessa Pereira APRN CRNA 0757 An Induction 0802 An Intubation 0810 Anesthesia Ready for Procedu re 1428 AN Extubation All extubation criteria met prior to removal. 1430 an stop data 1437 An Stop Electronically signed by Nessa Pereira APRN CRNA on December 22, 2023 2:37 PM Meds * Agents No agents on file. * Blood No blood administrations on file. Lines, Drains, and Airways Type Details Placement Removal Port A Cath Single 08/28/23; 0916; Right; Chest wall; Yes; [id number]; Yes; Yes; 6 Fr; 21 cm; SVC/RA Junction (tip location); Hernandez 08/28/23 0916 by Maverick Almonte RN Incision/Surgical Site 12/22/23; 0837; Midline; Abdomen; large incision closed with sutures and glue 12/22/23 0837 by Natasha Alejo RN ETT Placement Date: 12/22/23; Placement Time: 08 (created via procedure documentation); Mask Ventilation: 0; Induction Type: Intravenous; Ease of Intubation: Easy; Technique: Direct laryngoscopy; Tube Size: 7.5 mm; DL Blade Size: Cowan 2; Grade View: 1; Placement Person: YOUTH ACCOMMODATION SUPPORT WORKER; Attempts: 1 12/22/23 0802 by Nessa Pereira APRN CRNA 12/22/23 1428 by Nessa Pereira APRN CRNA Peripheral IV 12/22/23; 0804; 18 G ; B [place]; Right; Hand; Alcohol; None; 1; Tolerated well 12/22/23 0804 by Nessa Pereira APRN CRNA 12/24/23 1104 by Shobha Sneed RN Peripheral IV 12/22/23; 0804; 18 G ; B [place]; Left; Hand; Alcohol; None; Tolerated well 12/22/23 0804 by Nessa Pereira APRN CRNA 12/24/23 0000 by Isaac Hutchins RN Urethral Catheter 12/22/23; 0830; No; Surgical procedure; 16 fr 12/22/23 0830 by Natasha Alejo RN 12/22/23 1321 by Natasha Alejo RN Urethral Catheter 12/22/23; 1351; No; Surgical procedure; 24 fr 12/22/23 1351 by Natasha Alejo RN 12/25/23 1651 by Inpatient, Nurse LDA Elastomeric Pump/On-Q 12/22/23; 1408; wound; abdomen; 12/25/23; 1651 12/22/23 1408 by Natasha Alejo RN 12/25/23 1651 by Inpatient, Nurse Closed/Suction Drain 12/22/23; 1408; RLQ ; Bulb; 19 Faroese 12/22/23 1408 by Natasha Alejo RN 12/25/23 1651 by Inpatient, Nurse documented in this encounter Social History Tobacco [...] Sign Reading Time Taken Comments Blood Pressure 121/74 12/11/2023 7:43 AM CDT Pulse 75 12/11/2023 7:43 AM CDT Temperature 36.7 ??C (98 ??F) 12/11/2023 7:43 AM CDT Respiratory Rate 16 12/11/2023 7:43 AM CDT Oxygen Saturation 96% 12/11/2023 7:43 AM CDT Inhaled Oxygen Concentration - - Weight 85.7 kg (189 lb) 12/11/2023 7:43 AM CDT Height 170.2 cm (5' 7) 12/11/2023 7:43 AM CDT Body Mass Index 29.6 12/11/2023 7:43 AM CDT documented in this encounter Patient Instructions * Patient Instructions* Marysol Hunter RN - 12/11/2023 8:00 AM CDT Preparing for Your Surgery Name: Oleg Richard : 1960 Today's Date: 12/11/2023 Arriving for surgery: Surgery date: 12/22/23 Arrival time: 6:00 am Surgery time: 8:00 am Please come to: Please come to: [facility] [place] Unit [address] [place] [address] The [facility] ([facility]) [place] Patient/Visitor Ramp is at [address] [address] Patients and visitors who self-park will receive the reduced hospital parking rate. If the Patient /Visitor Ramp is full, please follow the signs to the depict car park located at the main hospital entrance. [employer] parking is available (24 hours/ 7 days a week) Discounted parking pass options are available for patients and visitors. They can be purchased at the [employer] desk at the main hospital entrance. - Stop at the security desk and they will direct surgery patients to the Surgery Check in and Family Lounge. [phone] - If you need directions, a wheelchair or an escort please stop at the Information/security desk inthe lobby. What can I eat or drink? - You may eat and drink normally up to 8 hours prior to arrival time. (Until 10:00 pm on 12/21/23) - You may have clear liquids until 2 hours prior to arrival time. (Until 4:00 am on 12/22/23) Examples of clear liquids: Water Clear broth Juices (apple, white grape, white cranberry and cider) without pulp Noncarbonated, powder based beverages (lemonade and Ike-Aid) Sodas (Sprite, 7-Up, lenin joan and seltzer) Coffee or tea (without milk or cream) Gatorade - No Alcohol or cannabis products for at least 24 hours before surgery. Which medicines can I take? Hold Aspirin for 7 days before surgery. Hold Multivitamins for 7 days before surgery. Hold Supplements for 7 days before surgery. Hold Ibuprofen (Advil, Motrin) for 1 day(s) before surgery--unless otherwise directed by surgeon. Hold Naproxen (Aleve) for 4 days before surgery. - DO NOT take these medications the day of surgery: Diphenhydramine (Benadryl) Cetirizine (Zyrtec) - PLEASE TAKE these medications per your usual routine: Excedrin Tension Headache (make sure it does not contain Aspirin - if it does, it needs to stop 7 days before surgery) Dexamethasone (Decadron) Ondansetron (Zofran) if needed for nausea Compazine if needed for nausea Tamsulosin (Flomax) How do I prepare myself? - Please take 2 showers (one the night prior to surgery and one the morning of surgery) using Scrubcare or Hibiclens soap. Use this soap only from the neck to your toes. Do not use in genital area. Leave the soap on your skin for one minute--then rinse thoroughly. You may use your own shampoo and conditioner. No other hair products. Sleep in clean sheets and wear clean clothes. - Please remove all jewelry and body piercings. - No lotions, deodorants or fragrance. - No makeup or fingernail greenlandic. - Bring your ID and insurance card. -If you use a CPAP machine, please bring the CPAP machine, tubing, and mask to hospital. -If you have a Deep Brain Stimulator, Spinal Cord Stimulator, or any Neuro Stimulator device---you must bring the remote control to the hospital. ALL PATIENTS GOING HOME THE SAME DAY OF SURGERY ARE REQUIRED TO HAVE A RESPONSIBLE ADULT TO DRIVE AND BE IN ATTENDANCE WITH THEM FOR 24 HOURS FOLLOWING SURGERY. Covid testing policy as of 05/06/2022 Your surgeon will notify and schedule you for a COVID test if one is needed before surgery--please direct any questions or COVID symptoms to your surgeon Questions or Concerns: - For any questions regarding the day of surgery or your hospital stay, please contact the Pre Admission Nursing Office at [phone]. - If you have health changes between today and your surgery, please call your surgeon. - For questions after surgery, please call your surgeons office. Current Visitor Guidelines You may have 2 visitors in the pre op area. Visiting hours: 8 a.m. to 8:30 p.m. Patients confirmed or suspected to have symptoms of COVID 19 or flu: No visitors allowed for adult patients. Children (under age 18) can have 1 named visitor. People who are sick or showing symptoms of COVID 19 or flu: Are not allowed to visit patients--we can only make exceptions in special situations. Please follow these guidelines for your visit: Please maintain social distance Masking is optional--however at times you may be asked to wear a mask for the safety of yourself and others Clean your hands with alcohol hand spectacle truer. Do this when you arrive at and leave the building andpatient room, And again after you touch your mask or anything in the room. Go directly to and from the room you are visiting. Stay in the patient???s room during your visit. Limit going to other places in the hospital as muchas possible Leave bags and jackets at home or in the car. For everyone???s health, please don???t come and go during your visit. That includes for smoking during your visit. documented in this encounter H&P Notes * Rizwana Tejeda APRN FLOOR SCRAPER - 12/11/2023 8:00 AM CDT Images from the original note were not included. Pre-Operative H & P CC: Preoperative exam to assess for increased cardiopulmonary risk while undergoing surgery and anesthesia. Date of Encounter: 12/11/2023 Primary Care Physician: System, Provider Not In Reason for visit: Encounter Diagnoses Name Primary? Preop examination Yes 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 (H) HPI Oleg Richard is a 63 year old male who presents for pre-operative H & P in preparation for Procedure Information Case: [id number] Date/Time: 12/22/23 0800 Procedure: CYSTECTOMY, pelvic node dissection WITH ILEAL NEOBLADDER CREATION possible ileal conduit(Abdomen) Anesthesia type: General Diagnosis: 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 (H) [C67.9] Pre-op diagnosis: 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 (H) [C67.9] Location: OR / OR Providers: Alvaro Clark MD Oleg Richard is a 63 year old male with migraines, anemia, and history of tobacco use that has urothelial carcinoma of the bladder with muscle invasion. He is s/p TURBT on 07/22/23 and then chemotherapy that completed last month. He has continued to follow with Dr. Clark and the above listed procedure has now been recommended for treatment. History is obtained from the patient and chart review Hx of abnormal bleeding or anti-platelet use: none Past Medical History Past Medical History: Diagnosis Date Lesion of bladder Migraine 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 (H) Past Surgical History Past Surgical History: Procedure Laterality Date IR CHEST PORT PLACEMENT > 5 YRS OF AGE 308/28/2023 KNEE SURGERY TRANSURETHRAL RESECTION (TUR) TUMOR BLADDER INSTILL OPTICAL AGENT N/A 07/22/2023 Procedure: BLUE LIGHT CYSTOSCOPY, WITH TRANSURETHRAL RESECTION BLADDER TUMOR; Surgeon: Alvaro Clark MD; Location: [facility] OR Prior to Admission Medications Current Outpatient Medications Medication Sig Dispense Refill acetaminophen-caffeine (EXCEDRIN TENSION HEADACHE) 500-65 MG TABS Take 2 tablets by mouth every 6 hours as needed for mild pain (PRN HEADACHE) diphenhydrAMINE HCl (BENADRYL ALLERGY PO) Take 1 tablet by mouth as needed Allergies Allergies Allergen Reactions Penicillins Nausea and Vomiting Social History Social History Socioeconomic History Marital status: Single Spouse name: Not on file Number of children: 0 Years of education: Not on file Highest education level: Not on file Occupational History 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 Tobacco Use Smoking status: Former Current packs/day: 0.00 Average packs/day: 1.5 packs/day for 30.0 years (45.0 ttl pk-yrs) Types: Cigarettes Start date: 1979 Quit date: 2009 Years since quittin.5 Passive exposure: Past Smokeless tobacco: Never Substance and Sexual Activity Alcohol use: Never Drug use: Never Sexual activity: Not on file Other Topics Concern Not on file Social History Narrative Not on file Social Determinants of Health Financial Resource Strain: High Risk (06/01/2021) [facility] [email or web address] [facility] Financial Resource Strain Difficulty of Paying Living Expenses: Not on file Difficulty of Paying Living Expenses: Not on file Food Insecurity: Not on file Transportation Needs: Not on file Physical Activity: Not on file Stress: Not on file Social Connections: Unknown (08/15/2021) [facility] [email or web address] [facility] Social Connections Frequency of Communication with Friends and Family: Not on file Interpersonal Safety: Not on file Housing Stability: Not on file Family History Family History Problem Relation Age of Onset No Known Problems Mother Bladder Cancer Father Anesthesia Reaction No family hx of Thrombosis No family hx of Review of Systems The complete review of systems is negative other than noted in the HPI or here. Anesthesia Evaluation Pt has had prior anesthetic. No history of anesthetic complications ROS/MED HX ENT/Pulmonary: (+) AMARJIT risk factors, snores loudly, tobacco use, Past use, (-) recent URI Neurologic: (+) migraines, Cardiovascular: (+) - - - - - Previous cardiac testing Echo: Date: 08/2023 Results: Echo 09/24/23 Interpretation Summary The left ventricle is normal in size. Left ventricular systolic function is normal. Biplane LVEF is 69%. Normal left ventricular wall motion Global peak LV longitudinal strain is averaged at -21.6%. This is within reported normal limits (normal <-18%). The right ventricle is normal in structure, function and size. The study was technically difficult. There is no comparison study available. 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 Denies any exertional dyspnea or angina. Hematologic: (+) anemia, Musculoskeletal: - neg musculoskeletal ROS GI/Hepatic: - neg GI/hepatic ROS Renal/Genitourinary: Comment: Bladder cancer Endo: - neg endo ROS Psychiatric/Substance Use: - neg psychiatric ROS Infectious Disease: - neg infectious disease ROS Malignancy: (+) Malignancy, History of Other.Other CA bladder cancer Active status post Surgery andChemo. Other: - neg other ROS BP 121/74 (BP Location: Right arm, Patient Position: Sitting, Cuff Size: Adult Large) Pulse 75 Temp 98 ??F (36.7 ??C) (Oral) Resp 16 Ht 1.702 m (5' 7) Wt 85.7 kg (189 lb) SpO2 96% BMI 29.60 kg/m?? Physical Exam Constitutional: Awake, alert, cooperative, no apparent distress, and appears stated age. Eyes: Pupils equal, round and reactive to light, extra ocular muscles intact, sclera clear, conjunctiva normal. HENT: Normocephalic, oral pharynx with moist mucus membranes. No goiter appreciated. Respiratory: Clear to auscultation bilaterally, no crackles or wheezing. Cardiovascular: Regular rate and rhythm, normal S1 and S2, and no murmur noted. Carotids +2, no bruits. No edema. Palpable pulses to radial DP and PT arteries. GI: Normal bowel sounds, soft, non-distended, non-tender, no masses palpated, no hepatosplenomegaly. Lymph/Hematologic: No cervical lymphadenopathy and no supraclavicular lymphadenopathy. Genitourinary: deferred Skin: Warm and dry. Musculoskeletal: Full ROM of neck. There is no redness, warmth, or swelling of the exposed joints. Gross motor strength is normal. Neurologic: Awake, alert, oriented to name, place and time. Cranial nerves II- XII are grossly intact. Gait is normal. Neuropsychiatric: Calm, cooperative. Flat affect. Prior Labs/Diagnostic Studies All labs and imaging personally reviewed EKG/ stress test - if available please see in ROS above The patient's records and results personally reviewed by this provider. Outside records reviewed from: Care Everywhere LAB/DIAGNOSTIC STUDIES TODAY: Component Latest Ref Rng 12/11/2023 8:32 AM Sodium 135 - 145 mmol/L 140 Potassium 3.4 - 5.3 mmol/L 4.8 Chloride 98 - 107 mmol/L 103 Carbon Dioxide (CO2) 22 - 29 mmol/L 28 Anion Gap 7 - 15 mmol/L 9 Urea Nitrogen 8.0 - 23.0 mg/dL 14.4 Creatinine 0.67 - 1.17 mg/dL 0.86 GFR Estimate >60 mL/min/1.73m2 >90 Calcium 8.8 - 10.2 mg/dL 9.2 Glucose 70 - 99 mg/dL 99 WBC 4.0 - 11.0 10e3/uL 7.1 RBC Count 4.40 - 5.90 10e6/uL 3.91 (L) Hemoglobin 13.3 - 17.7 g/dL 11.4 (L) Hematocrit 40.0 - 53.0 % 34.8 (L) MCV 78 - 100 fL 89 MCH 26.5 - 33.0 pg 29.2 MCHC 31.5 - 36.5 g/dL 32.8 RDW 10.0 - 15.0 % 16.1 (H) Platelet Count 150 - 450 10e3/uL 196 Legend: (L) Low (H) High Assessment Oleg Richard is a 63 year old male seen as a PAC referral for risk assessment and optimization foranesthesia. Plan/Recommendations Pt will be optimized for the proposed procedure. See below for details on the assessment, risk, andpreoperative recommendations NEUROLOGY - No history of TIA, CVA or seizure -Post Op delirium risk factors: No risk identified ENT - No current airway concerns. Will need to be reassessed day of surgery. Mallampati: I TM: > 3 CARDIAC - No history of CAD, Hypertension, and Afib - prior echocardiogram as above. - METS (Metabolic Equivalents) Patient performs 4 or more METS exercise without symptoms Total Score: 0 RCRI-Very low risk: Class 1 0.4% complication rate Total Score: 0 PULMONARY AMARJIT Medium Risk Total Score: 3 AMARJIT: Snores loudly AMARJIT: Over 50 ys old AMARJIT: Male - Denies asthma or inhaler use - Tobacco History History Smoking Status Former Types: Cigarettes Smokeless Tobacco Never GI - denies GERD PONV Medium Risk Total Score: 2 1 AN PONV: Patient is not a current smoker 1 AN PONV: Intended Post Op Opioids /RENAL - urothelial carcinoma of bladder with muscle invasion. Surgery planned as above. ENDOCRINE - BMI: Estimated body mass index is 29.6 kg/m?? as calculated from the following: Height as of this encounter: 1.702 m (5' 7). Weight as of this encounter: 85.7 kg (189 lb). Overweight (BMI 25.0-29.9) - No history of Diabetes Mellitus HEME VTE Low Risk 0.5% Total Score: 3 VTE: Greater than 59 yrs old VTE: Male - No history of abnormal bleeding or antiplatelet use. - Chronic anemia Recommend perioperative use of blood conservation techniques intraoperatively and close monitoring for postoperative bleeding. A type and screen has been ordered for this patient Different anesthesia methods/types have been discussed with the patient, but they are aware that the final plan will be decided by the assigned anesthesia provider on the date of service. The patient is optimized for their procedure. AVS with information on surgery time/arrival time, meds and NPO status given by nursing staff. No further diagnostic testing indicated. On the day of service: Prep time: 5 minutes Visit time: 12 minutes Documentation time: 7 minutes Total time: 24 minutes Rizwana Tejeda APRN CNP Preoperative Assessment Center [facility] documented in this encounter Plan of Treatment Upcoming Encounters Date Type Department Care Team (Late st Contact Info) Description 01/01/2024 9:45 AM CDT Office Visit [address] [place] [phone] Alvaro Clark MD [address] [facility] [address] [place], [place] [address] 02/26/2024 7:45 AM CDT Lab [address] [place] [phone] Ky Torres MD [address] [place] [address] [address] [place], [place] [phone] 02/26/2024 8:40 AM CDT Appointment [facility] [id number] [facility] [address] [place] [phone] Yessica Mcleod PA-C [address] [place], [place] [phone] 03/04/2024 8:00 AM CDT Oncology Visit [address] [place] [phone] Ky Torres MD [address] [place] [id number] documented as of this encounter Results * Basic metabolic panel (12/11/2023 8:32 AM CDT) Pathologist [facility] Sodium 140 135 - 145 mmol/L 12/11/2023 9:04 AM CDT [facility] Potassium 4.8 3.4 - 5.3 mmol/L 12/11/2023 9:04 AM CDT [facility] Chloride 103 98 - 107 mmol/L 12/11/2023 9:04 AM CDT [facility] Carbon Dioxide (CO2) 28 22 - 29 mmol/L 12/11/2023 9:04 AM CDT [facility] Anion Gap 9 7 - 15 mmol/L 12/11/2023 9:04 AM CDT [facility] Urea Nitrogen 14.4 8.0 - 23.0 mg/dL 12/11/2023 9:04 AM CDT [facility] Creatinine 0.86 0.67 - 1.17 mg/dL 12/11/2023 9:04 AM CDT [facility] GFR Estimate >90 >60 mL/min/1.7 3m2 12/11/2023 9:04 AM CDT [facility] Comment:eGFR calculated usin 2020 CKD-EPI equation. Calcium 9.2 8.8 - 10.2 mg/dL 12/11/2023 9:04 AM CDT [facility] Glucose 99 70 - 99 mg/dL 12/11/2023 9:04 AM CDT [facility] Blood STRUCTURE OF LEFT UPPER LIMB / Unknown Venipuncture / Unknown 12/11/2023 8:32 AM CDT 12/11/2023 8:32 AM CDT Rizwana Tejeda APRN FLOOR SCRAPER LAB - BLOO D ORDERABLES [facility] [place] [address] [facility] 1st [place] [address] * (ABNORMAL) CBC with platelets (12/11/2023 8:32 AM CDT) Pathologist [facility] WBC Count 7.1 4.0 - 11.0 10e3/uL 12/11/2023 8:38 AM CDT [facility] RBC Count 3.91(L) 4.40 - 5.90 10e6/uL 12/11/2023 8:38 AM CDT [facility] Hemoglobin 11.4(L) 13.3 - 17.7 g/dL 12/11/2023 8:38 AM CDT [facility] Hematocrit 34.8(L) 40.0 - 53.0 % 12/11/2023 8:38 AM CDT [facility] MCV 89 78 - 100 fL 12/11/2023 8:38 AM CDT [facility] MCH 29.2 26.5 - 33.0 pg 12/11/2023 8:38 AM CDT [facility] MCHC 32.8 31.5 - 36.5 g/dL 12/11/2023 8:38 AM CDT [facility] RDW 16.1(H) 10.0 - 15.0 % 12/11/2023 8:38 AM CDT [facility] Platelet Count 196 150 - 450 10e3/uL 12/11/2023 8:38 AM CDT [facility] Blood STRUCTURE OF LEFT UPPER LIMB / Unknown Venipuncture / Unknown 12/11/2023 8:32 AM CDT 12/11/2023 8:32 AM CDT Rizwana Tejeda APRN FLOOR SCRAPER LAB - BLOO D ORDERABLES [facility] - [address] 1st [place] [address] documented in this encounter Visit Diagnoses Diagnosis Preop examination- Primary Preoperative examination, unspecified 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 (H) documented in this encounter Care Teams Rn Field Relationship Specialty Start Date End Date System, Provider Not In PCP - General Clinic 08/13/23 12/21/23 Alvaro Clark MD [address] [place] [address] [id number] Assigned Surgical Provider 07/24/23 Sixto Whalen APRN FLOOR SCRAPER [address] [place] [id number] Assigned Cancer Care Provider 10/22/23 12/21/23 documented as of this encounter
--- OUTSIDE RECORDS SUMMARY | 2023-12-26 23:07 | XMS_ITS | Encounter Summary ---
Author Organization [facility] Address [address] [place] [address] Care Team Providers Care Supervisor Assembly Stock Name Role Phone Alvaro Clark MD Unavailable System, Provider Not In Primary Care Provider Un available Sixto Whalen APRN SUPERVISOR SAWMILL Unavailable [phone] No Ref-Primary, Physician Primary Care Provider Yessica Mcleod PA-C Unavailable Encounter Details Date Type Department Care Team (Late st Contact Info) Description 12/01/2023 MyC Medical Advice [place] [address] [facility] [place] [phone] Sabra Wilcox Social History Tobacco Use Types Packs/Day Years [...] Description 01/01/2024 9:45 AM CDT Office Visit [facility] [address] [facility] [place] [address] Alvaro Clark MD 420 [facility] 394 [place] [address] 02/26/2024 7:45 AM CDT Lab [facility] [address] [place] [address] [address] [place] [address] Ky Torres MD 420 [facility] 480 [place] [address] 02/26/2024 8:40 AM CDT Appointment [facility] Imaging [address] [place] [phone] Yessica Mcleod, PAJannetC 909 [place] [address] 03/04/2024 8:00 AM CDT Oncology Visit [address] [facility] [place] [address] Ky Torres MD [address] [address] documented as of this encounter Visit Diagnoses Not on filedocumented in this encounter Care Teams Supervisor Assembly Stock Relationship Specialty Start Date End Date System, Provider Not In PCP - General Clinic 08/13/23 12/21/23 No Ref-Primary, Physician PCP - General 12/22/23 Alvaro Clark MD [address] [address] Assigned Surgical Provider 07/24/23 Sixto Whalen APRN CNP 9 [place] [address] Assigned Cancer Care Provider 10/22/23 12/21/23 Yessica Mcleod PA-C [address] [place] [address] Assigned Cancer Care Provider 12/22/23 documented as of this encounter
--- OUTSIDE RECORDS SUMMARY | 2023-12-26 23:07 | XMS_ITS | Encounter Summary ---
Author Organization [facility] Address [address] [place] [address] Care Team Providers Care Spanish Interpreter Name Role Phone Alvaro Clark MD Unavailable System, Provider Not In Primary Care Provider Un available Sixto Whalen APRN PSYCHIATRY ADULT PHYSICIAN Unavailable [phone] Reason for Referral * Diagnostic Imaging Ultrasound (Routine) - Pending Review Specialty Diagnoses / Procedures Referred By Contac t Referred To Contact Radiology. Diagnoses Left leg swelling Procedures US Lower Extremity Venous Duplex Left Yessica Mcleod PA-C 900 [place] [address] Fax: [phone] Referral ID Status Reason Start Date Expiration Date V isits Requested Visits Authorized [id number] Pending Review 11/10/2023 11/09/2024 1 1 Reason for Visit * Diagnostic Imaging Ultrasound (Routine) - Pending Review Specialty Diagnoses / Procedures Referred By Contac t Referred To Contact Radiology. Diagnoses Left leg swelling Procedures US Lower Extremity Venous Duplex Left Yessica Mcleod PA-C 190 [place] [address] Fax: [phone] Referral ID Status Reason Start Date Expiration Date V isits Requested Visits Authorized [id number] Pending Review 11/10/2023 11/09/2024 1 1 Encounter Details Date Type Department Care Team (Latest Contact Info) Description 11/10/2023 1:48 PM CDT - 11/10/2023 11:59 PM CDT Hospital Encounter [facility] Imaging [address] [facility] [address] [place] [address] Yessica Mcleod PA-C [address] [place] [address] Left leg swelling Discharge Disposition: Home or Self Care Social [...] on file documented as of this encounter Medications at Time of Discharge Medication Sig Dispensed Refills Start Date End Date acetaminophen-caffeine (EXCEDRIN TENSION HEADACHE) 500-65 MG TABS Take 2 tablets by mouth every 6 hours as needed for mild pain (PRN HEADACHE) diphenhydrAMINE HCl (BENADRYL ALLERGY PO) Take 1 tablet by mouth as needed dexAMETHasone (DECADRON) 4 MG tabletIndications:Urot helial cancer (H) Take 2 tablets (8 mg) by mouth daily Take for 3 days, starting the day after chemo. Take with food. 6 tablet 2 11/10/2023 12/11/2023 ondansetron (ZOFRAN) 8 MG tabletIndications:Urot helial cancer (H) Take 1 tablet (8 mg) by mouth every 8 hours as needed for nausea (vomiting) 30 tablet 2 09/28/2023 12/11/2023 prochlorperazine (COMPAZINE) 10 MG tabletIndications:Urot helial cancer (H) Take 1 tablet (10 mg) by mouth every 6 hours as needed for nausea or vomiting 30 tablet 2 09/28/2023 12/11/2023 tamsulosin (FLOMAX) 0.4 MG capsuleIndications: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 Take 2 capsules (0.8 mg) by mouth daily 180 capsule 1 06/18/2023 12/11/2023 documented as of this encounter Plan of Treatment Upcoming Encounters Date Type Department Care Team (Late st Contact Info) Description 01/01/2024 9:45 AM CDT Office Visit [address] [place] [phone] Alvaro Clark MD 420 [facility] 394 [place] [address] 02/26/2024 7:45 AM CDT Lab [address] 200 [place] [phone] Ky oTrres MD [address] [place] [address] 480 [place], [place] [address] 02/26/2024 8:40 AM CDT Appointment [facility] Imaging [address] [facility] [address] [place] [address] Yessica Mcleod PA-C 909 [place], [place] [address] 03/04/2024 8:00 AM CDT Oncology Visit [address] [place] [address] Ky Torres MD [address] [place] [address] documented as of this encounter Procedures Procedure Name Priority Date/Time Associated Diagnosis Comments US LOWER EXTREMITY VENOUS DUPLEX LEFT STAT 11/10/2023 2:17 PM CDT Left leg swelling documented in this encounter Results * US Lower Extremity Venous Duplex Left (11/10/2023 2:17 PM CDT) Anatomical Region Laterality Modality Vascular, Thigh, Leg Ultrasound Impressions 11/10/2023 3:47 PM CDT IMPRESSION: No evidence of deep venous thrombosis in the left lower extremity. JASMIN MCCLAIN DO Narrative 11/10/2023 3:47 PM CDT [...] waveform, color flow and augmentation. Procedure Note Jasmin Mcclain DO - 11/10/2023 ULTRASOUND LEFT LOWER [...] venous thrombosis in the left lower extremity. JASMIN MCCLAIN DO Yessica Haynes PA-C IMKeo US ORDERABLES documented in this encounter Visit Diagnoses Diagnosis Left leg swelling documented in this encounter Care Teams Spanish Interpreter Relationship Specialty Start Date End Date System, Provider Not In PCP - General Clinic 08/13/23 12/21/23 Alvaro Clark MD 420 [facility] 394 [place], [place] [address] Assigned Surgical Provider 07/24/23 Sixto Whalen APRN CNP 9[address] [place], [place] [address] Assigned Cancer Care Provider 10/22/23 12/21/23 documented as of this encounter
--- OUTSIDE RECORDS SUMMARY | 2023-12-26 23:07 | XMS_ITS | Encounter Summary ---
Author Organization [facility] Address [address] [place] [address]. [place] [address] Care Team Providers Care Glassware Maker Demonstrator Name Role Phone Alvaro Clark MD Unavailable System, Provider Not In Primary Care Provider Un available Sixto Whalen APRN SURGICAL AIDE Unavailable [phone] Encounter Details Date Type Department Care Team (Late st Contact Info) Description 12/01/2023 Orders Only [address] [facility] [place] [place] [phone] Dylan Guerin PA [address] [place] [address] Urothelial cancer (H) (Primary Dx) Social History [...] Description 01/01/2024 9:45 AM CDT Office Visit [address] [facility] [place] [place] [address] Alvaro Clark MD 420 [facility] 394 [place] [address] 02/26/2024 7:45 AM CDT Lab [address] [place] [address] Ky Torres MD 420 [facility] 480 [place] [address] 02/26/2024 8:[address] [facility] Imaging [address] [place] [address] [place] [phone] Yessica Mcleod PA-C 909 [place] [address] 03/04/2024 8:00 AM CDT Oncology Visit [address] [place] [address] Ky Torres MD [address] [place] [address] Scheduled Orders Name Type Priority Associated Diagnoses Orde r Schedule CBC with platelets differential Lab Panel Routine Urothelial cancer (H) Expected: 03/02/2024 (Approximate), Expires: 11/30/2024 Comprehensive metabolic panel Lab Routine Urothelial cancer (H) Expected: 03/02/2024 (Approximate), Expires: 11/30/2024 documented as of this encounter Visit Diagnoses Diagnosis Urothelial cancer (H)- Primary Malignant neoplasm of other specified sites of urinary organs documented in this encounter Care Teams Glassware Maker Demonstrator Relationship Specialty Start Date End Date System, Provider Not In PCP - General Clinic 08/13/23 12/21/23 Alvaro Clark MD [address] [place] [address] 394 [place] [address] Assigned Surgical Provider 07/24/23 Sixto Whalen APRN SURGICAL AIDE [address] [place] [address] Assigned Cancer Care Provider 10/22/23 12/21/23 documented as of this encounter
--- OUTSIDE RECORDS SUMMARY | 2023-12-26 23:07 | XMS_ITS | Encounter Summary ---
Author Organization [place] Address [address] [place] [address] Care Team Providers Care Nylon Machine Operator Name Role Phone Alvaro Clark MD Unavailable System, Provider Not In Primary Care Provider Un available Sixto Whalen APRN STITCH BONDER MACHINE OPERATOR HELPER Unavailable [phone] Reason for Referral * Diagnostic Imaging CT Scan (Routine) - Closed Specialty Diagnoses / Procedures Referred By Contac t Referred To Contact Radiology. 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 [address] [place] [phone] Yessica Mcleod PAJose Luis 909 [place] [address] 03/04/2024 8:00 AM CDT Oncology Visit [place] [address] [place] [address] [place] [address] Ky Torres MD 420 [facility] 480 [place], [place] [address] documented as of this encounter Results * CT Chest/Abdomen/Pelvis w Contrast (11/25/2023 12:03 [...] likely benign and unchanged from previous. KATHRYN RODRIGUEZ MD Narrative 11/25/2023 4:[address] [...] No lymphadenopathy. MUSCULOSKELETAL: Normal. Procedure Note Kathryn Rodriguez MD - 11/25/2023 CT CHEST/ABDOMEN/PELVIS WITH CONTRAST [...] likely benign and unchanged from previous. 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
--- OUTSIDE RECORDS SUMMARY | 2023-12-26 23:07 | XMS_ITS | Encounter Summary ---
Author Organization [facility] Address [address] [place] [address] Care Team Providers Care Over The Road Driver Name Role Phone Alvaro Clark MD Unavailable System, Provider Not In Primary Care Provider Un available Sixto Whalen APRN VOCATIONAL INSTRUCTOR Unavailable [phone] Reason for Visit * Reason Onset Date Comments Schedule Surgery 11/26/2023 Encounter Details Date Type Department Care Team (Late st Contact Info) Description 11/26/2023 Telephone [facility] [address] 4[address] [place] [address] Alvaro Clark MD 420 [facility] 394 [place] [address] Schedule Surgery Social History Tobacco Use Types Packs/Day Years [...] on file documented as of this encounter Miscellaneous Notes * Telephone Encounter - Evette Boswell RN - 12/18/2023 9:57 AM CDT Directory Operator called patient this morning to complete Pre-Op Teaching for surgery scheduled with Dr. Clark on 12/22/2023. Directory Operator discussed that he did not receive surgical packet in mail (per note from Jennifer Griggs on 11/26/23-mailed per [employer]PS on 11/26/23). Directory Operator discussed that Pre-Op Teaching was completed on 12/11/23. -Pre Op exam completed on 12/11/23 with Rizwana Tejeda APRN CNP. -Preparing for Surgery Instructions reviewed with patient per Marysol Hunter RN (Patient Instruction Note). Patient confirms he received copy of these instructions. Directory Operator reviewed Preparing for Surgery Instructions with Patient: Surgery date/time/location. Arriveat 6am. Surgery at 8am. Hold NSAIDS/ASA and ASA containing products + Multivitamin. Okay to take Tylenol. NPO 8 hours prior to arrival time (nothing by mouth after 10pm on 12/21/23). Clear Liquids okay up until 2 hours to arrival time (water, clear juice, black coffee and tea-no cream or milk). No liquids after 4am on 12/22/23. Showering Before Surgery. Patient confirms was given Hibiclens at Pre-Op Exam visit on 12/11/23. Signs/symptoms of infection to report at incision site. Lifting Restrictions (do not lift > 10 pounds for 2-4 weeks). Length of Admission: 3-[address] Clark. Pain miguel gement after discharge will be determined prior to admission. Post-Op Visit with Dr. Clark will need to be scheduled. Dr. Clark will see him in about 2 weeks after surgery. Post Op visit is not scheduled at this time. Directory Operator will send message to scheduling department to schedule post op visit. Patient will talk with Dr. Clark morning of surgery regarding questions regarding plan for voidingafter surgery (Neobladder or Ileal Conduit). Directory Operator instructed patient to contact our office if any further questions or concerns prior to scheduled surgery on 12/22/2023. Evette Boswell RN, BSN, OCN on 12/18/2023 at 10:13 AM * Telephone Encounter - Indu Jennifer - 11/26/2023 11:21 AM CDT Called patient to discuss surgery scheduling with Dr. Clark. Spoke with patient and scheduled surgery with Dr. Clark for 12/22/23 at [place]. H&P scheduled with PAC scheduled for 12/08/23 at 9:00 AM. Patient is aware they will get their arrival time for surgery at PAC appointment. Per provider, 10 or 21 days postop for postop visit, stent removal and/or cath removal based on thetype of diversion patient still undecided. Directory Operator will mail surgery packet via [employer]PS on 11/26/23. The patient has no further questions regarding surgery at this time. Patient has writers call back number [phone]. Jennifer Griggs on 11/26/2023 at 11:22 AM documented in this encounter Plan of Treatment Upcoming Encounters Date Type Department Care Team (Late st Contact Info) Description 01/01/2024 9:45 AM CDT Office Visit [address] [facility] [place] [address] Alvaro Clark MD 420 [facility] 394 [place], [place] [address] 02/26/2024 7:45 AM CDT Lab [address] [place] [phone] Ky Torres MD 420 [facility] 480 [place], [place] [address] 02/26/2024 8:40 AM CDT Appointment [facility] Imaging [address] [place] [address] Yessica Mcleod, PAJose Luis 909 [place], [place] [address] 03/04/2024 8:00 AM CDT Oncology Visit [address] 200 [facility] [place] [address] Ky Torres MD 420 [facility] [address] [place] [address] documented as of this encounter Visit Diagnoses Not on filedocumented in this encounter Care Teams Over The Road Driver Relationship Specialty Start Date End Date System, Provider Not In PCP - General Clinic 08/13/23 12/21/23 Alvaro Clark MD 420 [facility] 394 [place], [place] [address] Assigned Surgical Provider 07/24/23 Sixto Whalen APRN CNP [address] [place] [address] Assigned Cancer Care Provider 10/22/23 12/21/23 documented as of this encounter
--- OUTSIDE RECORDS SUMMARY | 2023-12-26 23:07 | XMS_ITS | Encounter Summary ---
Author Organization [place] Address [address] [place] [address] Care Team Providers Care Elementary Teacher Name Role Phone Alvaro Clark MD Unavailable System, Provider Not In Primary Care Provider Un available Sixto Whalen APRN AUCTIONEER AUTOMOBILE Unavailable [phone] Reason for Visit * Reason Comments Oncology Clinic Visit Encounter Details Date Type Department Care Team ([facility] st Contact Info) Description 11/20/2023 11:00 AM CDT Office Visit [address] [facility] [place] [phone] Alvaro Clark MD 420 [facility] [address] [place] [address] Urothelial cancer (H) (Primary Dx) Social History Tobacco Use Types Packs/Day Years Used Date Smoking Tobacco: Former Cigarettes 1.5 30 1 2009 Passive Smoke Exposure: Past Smokeless Tobacco: Never Tobacco Cessation:Counseling Given: Not Answered Alcohol Use Standard Drinks/Week Comments Never 0 [...] Sign Reading Time Taken Comments Blood Pressure 126/72 11/20/2023 10:59 AM CDT Pulse 69 11/20/2023 10:59 AM CDT Temperature 36.3 ??C (97.4 ??F) 11/20/2023 10:59 AM C DT Respiratory Rate 16 11/20/2023 10:59 AM CDT Oxygen Saturation 97% 11/20/2023 10:59 AM CDT Inhaled Oxygen Concentration - - Weight 85.8 kg (189 lb 3.2 oz) 11/20/2023 10:59 AM CDT Height - - Body Mass Index 29.63 10/27/2023 2:14 PM CDT documented in this encounter Progress Notes * Alvaro Clark MD - 11/20/2023 11:00 AM CDT Urology Clinic HPI Oleg Richard is a 63 year old male with history of muscle invasive bladder cancer status post neoadjuvant chemotherapy, here for follow-up to discuss surgery. The patient denies any significant issues with chemotherapy. He denies any numbness or tingling of the fingers or hearing loss. Follow-up staging PET scan revealed partial response. No changes to health, hospitalizations or new diagnoses in the interim PHYSICAL EXAM BP 126/72 Pulse 69 Temp 97.4 ??F (36.3 ??C) (Temporal) Resp 16 Wt 85.8 kg (189 lb 3.2 oz) SpO2 97% BMI 29.63 kg/m?? Constitutional: AO, pleasant, NAD Resp: Non-labored breathing on room air Abd: Soft, NT, ND ANAND: Deferred Labs Lab Results Component Value Date WBC 14.8 11/10/2023 Lab Results Component Value Date RBC 4.04 11/10/2023 Lab Results Component Value Date HGB 11.4 11/10/2023 Lab Results Component Value Date HCT 35.3 11/10/2023 No components found for: MCT Lab Results Component Value Date MCV 87 11/10/2023 Lab Results Component Value Date MCH 28.2 11/10/2023 Lab Results Component Value Date MCHC 32.3 11/10/2023 Lab Results Component Value Date RDW 14.2 11/10/2023 Lab Results Component Value Date PLT 158 11/10/2023 Last Comprehensive Metabolic Panel: Sodium Date Value Ref Range Status 11/10/2023 140 135 - 145 mmol/L Final Comment: Reference intervals for this test were updated on 02/24/2023 to more accurately reflect our healthypopulation. There may be differences in the flagging of prior results with similar values performedwith this method. Interpretation of those prior results can be made in the context of the updated reference intervals. Potassium Date Value Ref Range Status 11/10/2023 4.0 3.4 - 5.3 mmol/L Final Chloride Date Value Ref Range Status 11/10/2023 104 98 - 107 mmol/L Final Carbon Dioxide (CO2) Date Value Ref Range Status 11/10/2023 27 22 - 29 mmol/L Final Anion Gap Date Value Ref Range Status 11/10/2023 9 7 - 15 mmol/L Final Glucose Date Value Ref Range Status 11/10/2023 104 (H) 70 - 99 mg/dL Final 10/21/2023 85 70 - 99 mg/dL Final Urea Nitrogen Date Value Ref Range Status 11/10/2023 13.9 8.0 - 23.0 mg/dL Final Creatinine Date Value Ref Range Status 11/10/2023 0.74 0.67 - 1.17 mg/dL Final GFR Estimate Date Value Ref Range Status 11/10/2023 >90 >60 mL/min/1.73m2 Final Calcium Date Value Ref Range Status 11/10/2023 8.8 8.8 - 10.2 mg/dL Final Bilirubin Total Date Value Ref Range Status 11/10/2023 <0.2 <=1.2 mg/dL Final Alkaline Phosphatase Date Value Ref Range Status 11/10/2023 142 40 - 150 U/L Final ALT Date Value Ref Range Status 11/10/2023 21 0 - 70 U/L Final Comment: Reference intervals for this test were updated on 11/10/2022 to more accurately reflect our healthy population. There may be differences in the flagging of prior results with similar values performed with this method. Interpretation of those prior results can be made in the context of the updated reference intervals. AST Date Value Ref Range Status 11/10/2023 23 0 - 45 U/L Final Comment: Reference intervals for this test were updated on 11/10/2022 to more accurately reflect our healthy population. There may be differences in the flagging of prior results with similar values performed with this method. Interpretation of those prior results can be made in the context of the updated reference intervals. PSA Tumor Marker Date Value Ref Range Status 08/04/2023 3.47 0.00 - 4.50 ng/mL Final Imaging Partial response in the bladder no evidence of retroperitoneal or pelvic lymphadenopathy ASSESSMENT AND PLAN 63 year old male for followup of muscle invasive bladder cancer status post neoadjuvant chemotherapy here to discuss surgery I had a long talk with Oleg regarding the optimal management of a muscle invasive bladder cancer following neoadjuvant chemotherapy. I told Oleg that the gold standard treatment is a radical cystoprostatectomy with a thorough pelvic/iliac lymph node dissection. I did mention the alternative for of treatment with chemo/radiation but it's generally felt that the long-term survival rates are inferior to surgical treatment. We also extensively discussed complete response to neoadjuvant chemotherapy, i.e. cT0 (which would have to be verified by cystoscopy and biopsy). He understands that complete responders (i.e.ypT0N0) have an 85% chance of cure. We then carefully reviewed the postoperative complications which include but are not limited to bleeding, infections, damage to surrounding structures, nerves, or vessels, bowel obstruction, urine leak, bowel leak, deep venous thrombosis, pulmonary embolism, myocardial infarction, stroke and .I told him the shiva- operative mortality rate in modern cystectomy series is less than 2%. We then sp end some time discussing the staging of bladder cancer and told him that surgery would accurately delineate his pathological stage and further define the need for adjuvant therapy. We then discussed in detail with diagrams all the different forms of urinary diversion including ileal conduit, continent cutaneous diversions, as well as orthotopic neobladder. I think he is angood candidate for an orthotopic neobladder, and I discussed the method by which this is constructed. I told him that greater than 90% of male patients are continent by the 6-month laurita post- surgery (0-1 pad per day) with at least 50% continent at nighttime. I told him that if we found cancer at the urethral margin on frozen section then he would not be a candidate for neobladder, and we would be able to perform either a continent cutaneous diversion by means of a right colon pouch and Benjamin shelia-appendiceal umbilicostomy or an ileal conduit urinary diversion. We discussed the continent cutaneous diversions and the need for intermittent catheterizations to empty the reservoir every 4 to 6 hours. About 90% of patients are continent following the cutaneous reservoir diversions. Regarding an ileal conduit, I discussed the need to drain the urostomy bag every 2-3 hours, and to change the urostomy appliance every 3 days. Complications such as stomal stenosis, stomal dermatitis, urostomy leakage and parastomal hernia were discussed. I told him that a neobladder only carries an approximately 10% risk of urinary retention requiring permanent intermittent catheterizations. I ask my neobladder patients to catheterize their pouch approximately once every 2 to 3 days in the first few weeks to eliminate mucus and to become familiar with the process. We discussed the complications associated with the different urinary diversions including urine leak (5%), bowel leak (1-2%), uretero-ileal anastomo tic strictures (3%), metabolic abnormalities (10%), catheterizable stomal stenosis (25%, which can be treated with in-office dilation). He is completely opposed to the idea of continent cutaneous pouch but is open to the idea of neobladder versus conduit. I gave him BCAN handout to understand the diversion options better. I also described our new ERAS (enhanced recovery after surgery) protocol with expedited advancementof diet and shorter hospital stay of 4 days barring any major complications. We will go ahead and schedule the case as soon as possible. Plan Scheduled for radical cystectomy, pelvic lymph node dissection, and creation of urinary diversion Patient is still undecided about the type of diversion Scheduled for PAC visit, ostomy teaching if he chooses ileal conduit, and preoperative lower extremity ultrasound 40 total minutes spent on the date of the encounter including direct interaction with the patient, performing chart review, documentation and further activities as noted above Alvaro Clark MD Department of Urology [facility] documented in this encounter Nursing Notes * Lori Portillo CMA - 11/20/2023 11:00 AM CDT Oncology Rooming Note November 20, 2023 11:01 AM Oleg Richard is a 63 year old male who presents for: Chief Complaint Patient presents with Oncology Clinic Visit Initial Vitals: BP 126/72 Pulse 69 Temp 97.4 ??F (36.3 ??C) (Temporal) Resp 16 Wt 85.8 kg (189 lb 3.2 oz) SpO2 97% BMI 29.63 kg/m?? Estimated body mass index is 29.63 kg/m?? as calculatedfrom the following: Height as of 10/27/23: 1.702 m (5' 7). Weight as of this encounter: 85.8 kg (189 lb 3.2 oz). Body surface area is 2.01 meters squared. No Pain (0) Comment: Data Unavailable No LMP for male patient. Allergies reviewed: Yes Medications reviewed: Yes Medications: Medication refills not needed today. Pharmacy name entered into [facility]: [facility] [address] [facility] Frailty Screening: Is the patient here for a new oncology consult visit in cancer care? 2. No Clinical concerns: f/u Lori Portillo CMA documented in this encounter Plan of Treatment Upcoming Encounters Date Type Department Care Team (Late st Contact Info) Description 01/01/2024 9:45 AM CDT Office Visit [address] [facility] [place] [phone] Alvaro Clark MD 420 [facility] 394 [place], [place] [address] 02/26/2024 7:45 AM CDT Lab [place] [address] [place] [address] [place] [address] Ky Torres MD 420 [facility] [address] [place] [address] 02/26/2024 8:40 AM CDT Appointment [facility] Imaging [address] [place] [address] [place] [phone] Yessica Mcleod PA-C 909 [place] [address] 03/04/2024 8:00 AM CDT Oncology Visit [place] [address] [facility] [place] [address] Ky Torres MD 420 [facility] [address] [place], [place] [address] documented as of this encounter Visit Diagnoses Diagnosis Urothelial cancer (H)- Primary Malignant neoplasm of other specified sites of urinary organs documented in this encounter Care Teams Elementary Teacher Relationship Specialty Start Date End Date System, Provider Not In PCP - General Clinic 08/13/23 12/21/23 Alvaro Clark MD 420 [facility] 394 [place], [place] [address] Assigned Surgical Provider 07/24/23 Sixto Whalen APRN [facility] [address] [place] [address] Assigned Cancer Care Provider 10/22/23 12/21/23 documented as of this encounter
--- OUTSIDE RECORDS SUMMARY | 2023-12-26 23:07 | XMS_ITS | Encounter Summary ---
Author Organization [place] Address [address] [place] [address] Care Team Providers Care Building Code Inspector Name Role Phone Alvaro Clark MD Unavailable System, Provider Not In Primary Care Provider Un available Sixto Whalen APRN SHELLFISH MEAT SEPARATOR OPERATOR Unavailable [phone] Encounter Details Date Type Department Care Team (Latest Contact Info) Description 12/11/2023 Travel Social History Tobacco Use Types Packs/Day [...] Description 01/01/2024 9:45 AM CDT Office Visit [place] [address] [place] [address] 200 [facility] [place] [phone] Alvaro Clark MD 420 [facility] 394 [place], [place] [address] 02/26/2024 7:45 AM CDT Lab [facility] Medical [place] [address] [place] [address] [place] 200 [place] [phone] Ky Torres MD 420 [facility] [address] [place] [address] 02/26/2024 8:40 AM CDT Appointment [facility] Imaging [address] [place] [address] [place] [phone] Yessica Mcleod PA-C 909 [place], [place] [address] 03/04/2024 8:00 AM CDT Oncology Visit [facility] Cancer [facility] [address] [place] [address] [facility] [place] [phone] Melissa, Ky Acharya MD [address] [address] documented as of this encounter Visit Diagnoses Not on filedocumented in this encounter Care Teams Building Code Inspector Relationship Specialty Start Date End Date System, Provider Not In PCP - General Clinic 08/13/23 12/21/23 Alvaro Clark MD [address] [place] [id number] Assigned Surgical Provider 07/24/23 Sixto Whalen APRN SHELLFISH MEAT SEPARATOR OPERATOR 9 [place] [address] Assigned Cancer Care Provider 10/22/23 12/21/23 documented as of this encounter
--- OUTSIDE RECORDS SUMMARY | 2023-12-26 23:07 | XMS_ITS | Encounter Summary ---
Author Organization [place] Address [address] [place] [address] Care Team Providers Care Meat Sales And Storage Manager Name Role Phone Alvaro Clark MD Unavailable System, Provider Not In Primary Care Provider Un available Sixto Whalen APRN PROPERTY INSURANCE AGENT Unavailable [phone] Encounter Details Date Type Department Care Team (Latest Contact Info) Description 11/20/2023 Travel Social History Tobacco Use Types Packs/Day [...] Description 01/01/2024 9:45 AM CDT Office Visit [place] [address] [place] [address] [place] 200 [facility] [place] [place] [phone] Alvaro Clark MD 420 [facility] 394 [place], [place] [address] 02/26/2024 7:45 AM CDT Lab [facility] Medical [place] [address] [place] [address] [place] [phone] Ky Torres MD 420 [facility] 480 [place] [address] 02/26/2024 8:40 AM CDT Appointment [facility] Imaging [address] [place] [address] [place] [phone] Yessica Mcleod PA-C 909 [place], [place] [address] 03/04/2024 8:00 AM CDT Oncology Visit [facility] Cancer [facility] [address] [place] [address] 200 [facility] [place] [place] [phone] Melissa, Ky Acharya MD [address] [address] documented as of this encounter Visit Diagnoses Not on filedocumented in this encounter Care Teams Meat Sales And Storage Manager Relationship Specialty Start Date End Date System, Provider Not In PCP - General Clinic 08/13/23 12/21/23 Alvaro Clark MD [address] [place] [id number] Assigned Surgical Provider 07/24/23 Sixto Whalen APRN PROPERTY INSURANCE AGENT 9 [place] [address] Assigned Cancer Care Provider 10/22/23 12/21/23 documented as of this encounter
--- OUTSIDE RECORDS SUMMARY | 2023-12-26 23:07 | XMS_ITS | Encounter Summary ---
Author Organization [place] Address [address] [place] [address]. [place] [address] Care Team Providers Care Operations Management Professionals Name Role Phone Alvaro Clark MD Unavailable System, Provider Not In Primary Care Provider Un available Sixto Whalen APRN FITTING ROOM CHECKER Unavailable [phone] No Ref-Primary, Physician Primary Care Provider Yessica Mcleod PA-C Unavailable Encounter Details Date Type Department Care Team (Late st Contact Info) Description 11/17/2023 MyC Medical Advice [facility] [address] [place] [address] [place] [address] Sixto Whalen APRN FITTING ROOM CHECKER 909 [place], [place] [phone] Social History Tobacco Use Types Packs/Day Years [...] Description 01/01/2024 9:45 AM CDT Office Visit [place] [phone] [place] [address] [facility] [place] [address] Alvaro Clark MD [address] [place] [address] 02/26/2024 7:45 AM CDT Lab [address] 200 [place] [address] Ky Torres MD [address] [address] 02/26/2024 8:40 AM CDT Appointment [facility] Imaging [address] [place] [address] [place] [address] Yessica Mcleod PAJannetC [address] [place] [address] 03/04/2024 8:00 AM CDT Oncology Visit [address] [place] 200 [place] [address] Ky Torres MD [address] [address] documented as of this encounter Visit Diagnoses Not on filedocumented in this encounter Care Teams Operations Management Professionals Relationship Specialty Start Date End Date System, Provider Not In PCP - General Clinic 08/13/23 12/21/23 No Ref-Primary, Physician PCP - General 12/22/23 Alvaro Clark MD [address] [place] [address] Assigned Surgical Provider 07/24/23 Sixto Whalen APRN [facility] 909 [place] [address] Assigned Cancer Care Provider 10/22/23 12/21/23 Yessica Mcleod PA-C 909 [place] [address] Assigned Cancer Care Provider 12/22/23 documented as of this encounter
--- OUTSIDE RECORDS SUMMARY | 2023-12-26 23:07 | XMS_ITS | Encounter Summary ---
Author Organization [place] Address [address] [place] [address] Care Team Providers Care Animal Eviscerator Name Role Phone Alvaro Clark MD Unavailable System, Provider Not In Primary Care Provider Un available Sixto Whalen APRN AUTOMATIC BEADING LATHE OPERATOR Unavailable [phone] Encounter Details Date Type Department Care Team (Late st Contact Info) Description 12/11/2023 PRE VISIT [facility] Preoperative Assessment [facility] [address] 5[address] [place] [phone] Rizwana Tejeda APRN AUTOMATIC BEADING LATHE OPERATOR [address] [place] [address] Social History Tobacco Use Types Packs/Day Years [...] encounter Miscellaneous Notes * Telephone Encounter - Lori Clemens - 12/08/2023 9:17 AM CDT FUTURE VISIT INFORMATION SURGERY INFORMATION: Date: 12/22/23 Location: uu or Surgeon: Alvaro Clark MD Anesthesia Type: general Procedure: CYSTECTOMY, pelvic node dissection WITH ILEAL NEOBLADDER CREATION possible ileal conduit Consult: ov 11/20/23 RECORDS REQUESTED FROM: Primary Care Provider: Marcy Most recent ECHO: 09/24/23 documented in this encounter Plan of Treatment Upcoming Encounters Date Type Department Care Team (Late st Contact Info) Description 01/01/2024 9:45 AM CDT Office Visit [address] [place] 200 [facility] [place] [phone] Alvaro Clark MD [address] [place] [address] 394 [place], [place] [address] 02/26/2024 7:45 AM CDT Lab [address] [place] [phone] Ky Torres MD [address] [place] [id number] 02/26/2024 8:40 AM CDT Appointment [facility] Imaging [address] [place] [address] [place] [phone] Yessica Mcleod PA-C 9[address] [place], [place] [address] 03/04/2024 8:00 AM CDT Oncology Visit [address] [place] 200 [facility] [place] [address] Ky Torres MD [address] [place] [address] documented as of this encounter Visit Diagnoses Not on filedocumented in this encounter Care Teams Animal Eviscerator Relationship Specialty Start Date End Date System, Provider Not In PCP - General Clinic 08/13/23 12/21/23 Alvaro Clark MD 420 [facility] 394 [place], [place] [address] Assigned Surgical Provider 07/24/23 Sixto Whalen APRN AUTOMATIC BEADING LATHE OPERATOR 909 [place] [address] Assigned Cancer Care Provider 10/22/23 12/21/23 documented as of this encounter
--- OUTSIDE RECORDS SUMMARY | 2023-12-26 23:07 | XMS_ITS | Encounter Summary ---
Author Organization [facility] Address [address] [place] [id number] Care Team Providers Care Statement Services Representative Name Role Phone Alvaro Clark MD Unavailable System, Provider Not In Primary Care Provider Un available Sixto Whalen APRN CABLE SWAGER Unavailable [phone] Reason for Referral * Diagnostic Imaging CT Scan (Routine) - Pending Review Specialty Diagnoses / Procedures Referred By Contkatlyn t Referred To Contact Radiology. 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) Procedures CT Chest/Abdomen/Pelvis w Contrast Yessica Mcleod PA-C [address] [place] [phone] Fax: [phone] Referral ID Status Reason Start Date Expiration Date V isits Requested Visits Authorized [id number] Pending Review 11/27/2023 11/26/2024 1 1 Reason for Visit * Reason Comments Oncology Clinic Visit Encounter Details Date Type Department Care Team (Latest Contact Info) Description 11/27/2023 2:30 PM CDT Oncology Visit [address] [facility] [place] [phone] Yessica Mcleod PA-C [address] [place] [id number] Urothelial cancer (H) (Primary Dx); 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) Social History Tobacco Use Types Packs/Day Years [...] Sign Reading Time Taken Comments Blood Pressure 138/76 11/27/2023 2:22 PM CDT Pulse 64 11/27/2023 2:22 PM CDT Temperature 36.6 ??C (97.9 ??F) 11/27/2023 2:22 PM CD T Respiratory Rate 18 11/27/2023 2:22 PM CDT Oxygen Saturation 99% 11/27/2023 2:22 PM CDT Inhaled Oxygen Concentration - - Weight 86.5 kg (190 lb 11.2 oz) 11/27/2023 2:22 PM CDT Height - - Body Mass Index 29.87 10/27/2023 2:14 PM CDT documented in this encounter Progress Notes * Yessica Mcleod PA-C - 11/27/2023 2:30 PM CDT Oncology/Hematology Visit Note Nov 27, 2023 Reason for visit: Follow up MIBC Oncology HPI: 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 He initially had urinary retention wasseen in the [facility] in May 2023. He saw urology for cystoscopy with TURBT done on 07/22/2023, revealed high-grade muscle invasive papillary urothelial carcinoma with focal glandular differentiation. PET scan on 09/21/2023 with bladder mass, no pelvic or retroperitoneal lymphadenopathy and no distant metastasis. He established care with Dr. Torres and he recommended neoadjuvant chemotherapy with MVAC x 4 cycles. After 2 cycles, PET on 10/21/2023 with treatment response and decreased size of the bladder tumor. Hehas now completed MVAC x 4 cycles. He is here today for CT Follow-up. Interval History: Oleg is here with his mother, Mamadou. He is feeling really well today. He was happy about his CT results. He is scheduled for surgery by Dr. Clark on 12/22/2023. No fever, chills,urinary changes. No other complaints. Review of Systems: See interval hx. Denies fevers, chills, new cough, abdominal pain, N/V, diarrhea, changes in urination, bleeding. PMHx and Social Hx reviewed per EPIC. Medications: Current Outpatient Medications Medication Sig Dispense Refill acetaminophen-caffeine (EXCEDRIN TENSION HEADACHE) 500-65 MG TABS Take 2 tablets by mouth every 6 hours as needed for mild pain (PRN HEADACHE) dexAMETHasone (DECADRON) 4 MG tablet Take 2 tablets (8 mg) by mouth daily Take for 3 days, startingthe day after chemo. Take with food. 6 tablet 2 diphenhydrAMINE HCl (BENADRYL ALLERGY PO) Take 1 tablet by mouth as needed ondansetron (ZOFRAN) 8 MG tablet Take 1 tablet (8 mg) by mouth every 8 hours as needed for nausea (vomiting) (Patient not taking: Reported on 11/27/2023) 30 tablet 2 prochlorperazine (COMPAZINE) 10 MG tablet Take 1 tablet (10 mg) by mouth every 6 hours as needed for nausea or vomiting (Patient not taking: Reported on 11/27/2023) 30 tablet 2 tamsulosin (FLOMAX) 0.4 MG capsule Take 2 capsules (0.8 mg) by mouth daily (Patient not taking: Reported on 11/27/2023) 180 capsule 1 Allergies Allergen Reactions Penicillins Nausea and Vomiting EXAM: BP 138/76 Pulse 64 Temp 97.9 ??F (36.6 ??C) (Temporal) Resp 18 Wt 86.5 kg (190 lb 11.2 oz) SpO2 99% BMI 29.87 kg/m?? GENERAL: Male, in no acute distress. Alert and oriented x3. Well groomed. HEENT: Normocephalic, atraumatic. No conjunctival injection or eye swelling. LUNGS: Nonlabored breathing, no cough or audible wheezing, able to speak full sentences. MSK: Full ROM UE. SKIN: No rash on exposed skin. NEURO: CN grossly intact, speech normal PSYCH: Mentation appears normal, insight and judgement intact Labs: n/a Imaging: CT CHEST/ABDOMEN/PELVIS WITH CONTRAST 11/25/2023 12:03 PM [...] most likely benign and unchanged from previous. Impression/Plan: Oleg Richard is a 63 year old male with MIBC s/p MVAC x 4, now scheduled for cystectomy in November 2023. MIBC: Previously on neoadjuvant MVAC and now has completed 4 cycles, first cycle completed on 09/29/2023. After 2 cycles, PET scan with treatment response. He has tolerated this remarkably well. Follow-up CT CAP after 4 cycles with KARLIE. He feels well and he is scheduled with Dr. Clark on 12/22/2023 for cystectomy and possible lymph node dissection. Spoke to Dr. Torres and we will plan for follow-up with CT CAP in 3 months. -3 months, Dr Torres and CT CAP (ordered) Leg swelling: LLE, intermittent for a few months. US negative for DVT. Chart documentation with [employer] Voice recognition Software. Although reviewed after completion, some words and grammatical errors may remain. 18 minutes spent on the date of the encounter doing chart review, review of test results, interpretation of tests, patient visit, documentation, discussion with other provider(s), and discussion withfamily Yessica Cheng PA-C Hematology/Oncology [facility] documented in this encounter Nursing Notes * Lori Portillo CMA - 11/27/2023 2:30 PM CDT Oncology Rooming Note November 27, 2023 2:25 PM Oleg Richard is a 63 year old male who presents for: Chief Complaint Patient presents with Oncology Clinic Visit Initial Vitals: BP 138/76 Pulse 64 Temp 97.9 ??F (36.6 ??C) (Temporal) Resp 18 Wt 86.5 kg (190 lb 11.2 oz) SpO2 99% BMI 29.87 kg/m?? Estimated body mass index is 29.87 kg/m?? as calculated from the following: Height as of 10/27/23: 1.702 m (5' 7). Weight as of this encounter: 86.5 kg (190 lb 11.2 oz). Body surface area is 2.02 meters squared. No Pain (0) Comment: Data Unavailable No LMP for male patient. Allergies reviewed: Yes Medications reviewed: Yes Medications: Medication refills not needed today. Pharmacy name entered into [facility] [facility]: [place], [place] - [address] [facility] Frailty Screening: Is the patient here for a new oncology consult visit in cancer care? 2. No Clinical concerns: f/u Lori Portillo CMA documented in this encounter Plan of Treatment Upcoming Encounters Date Type Department Care Team (Late st Contact Info) Description 01/01/2024 9:45 AM CDT Office Visit [place] [address] [address] [facility] [place] [phone] Alvaro Clark MD [address] [place] [address] [address] [place] [address] 02/26/2024 7:[address] [facility] [place] [address] [address] [place] [phone] Ky Torres MD [address] [facility] [address] [place] [address] 02/26/2024 8:40 AM CDT Appointment M [facility] [address] [place] [phone] Yessica Mcleod PA-C [address] [place] [address] 03/04/2024 8:00 AM CDT Oncology Visit M [facility] [address] [facility] [address] [facility] [place] [phone] Ky Torres MD [address] [address] Scheduled Orders Name Type Priority Associated Diagnoses Orde r Schedule CT Chest/Abdomen/Pelvis w Contrast Imaging Routine Urothelial cancer (H) 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) Expected: 02/27/2024 (Approximate), Expires: 11/26/2024 documented as of this encounter Visit Diagnoses Diagnosis Urothelial cancer (H)- Primary Malignant neoplasm of other specified sites of urinary organs 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
--- OUTSIDE RECORDS SUMMARY | 2023-12-26 23:07 | XMS_ITS | Encounter Summary ---
Author Organization [facility] Address [address] [place] [address] Care Team Providers Care Head Cager Name Role Phone Alvaro Clark MD Unavailable No Ref-Primary, Physician Primary Care Provider Yessica Mcleod PA-C Unavailable Reason for Visit * Auth/Cert Specialty Diagnoses / Procedures Referred By Contkatlyn t Referred To Contact Surgery Diagnoses 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 (H) 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 (H) [C67.9] Procedures LA REMV BLADDER,CONTINENT DIVERSN CYSTECTOMY, pelvic node dissection WITH ILEAL NEOBLADDER CREATION possible ileal conduit Uu Periop [address] [place] [address] Referral ID Status Reason Start Date Expiration Date Visits Re quested Visits Authorized [id number] 1 1 Encounter Details Date Type Department Care Team (Late st Contact Info) Description 12/22/2023 7:48 AM CDT Anesthesia Event [facility] PeriOp Services [address] [place] [address] Forest Olson MD [address] [place], [place] [address] Anesthesia Record Procedure Summary Procedure Name Responsible Anesthesiologist Anesthesia Start Time Anesthesia Stop Time CYSTECTOMY, pelvic node dissection WITH ILEAL NEOBLADDER CREATION (Abdomen) Forest Olson MD 12/22/23 0748 12/22/23 1437 Events Date Time Event Comment 12/22/2023 0654 LAB CLERK Ready for Procedure 0747 0748 An Start [...] recorded are pre- induction. Nessa Pereira APRN LAB CLERK 0757 An Induction 0802 An Intubation 0810 Anesthesia Ready for Procedu re 1428 AN Extubation All extubation criteria met prior to removal. 1430 an stop data 1437 An Stop Electronically signed by Nessa Pereira APRN LAB CLERK on December 22, 2023 2:37 PM Meds Name Total midazolam 1 mg/mL 2 mg fentaNYL 50 mcg/mL 250 mcg HYDROmorphone 1 mg/mL 1.5 mg lidocaine 2% 100 mg propofol 10 mg/mL 200 mg rocuronium 10 mg/mL 200 mg phenylephrine (MINNIE-SYNEPHRINE) injection 400 mcg dexamethasone (DECADRON) 4 mg/mL 4 mg sugammadex (BRIDION) 200mg/2mL 200 mg dexmedeTOMIDine (PRECEDEX) 4 mcg/mL bolu s 32 mcg LR 3,200 mL albumin 5% 250 mL * Agents Name O2 N2O Air Exp Sevoflurane Exp Isoflurane Exp Desflurane Ins Sevoflurane Ins Isoflurane Ins Desflurane * Blood No blood administrations on file. Lines, Drains, and Airways Type Details Placement Removal Port A Cath Single 08/28/23; 09; Right; Chest wall; Yes; [id number]; Yes; Yes; 6 Fr; 21 cm; SVC/RA Junction (tip location); Hernandez 08/28/23 0916 by Maverick Almonte RN Incision/Surgical Site 12/22/23; 0837; Midline; Abdomen; large incision closed with sutures and glue 12/22/23 08 by Natasha Alejo RN ETT Placement Date: 12/22/23; Placement Time: 0802 (created via procedure documentation); Mask Ventilation: 0; Induction Type: Intravenous; Ease of Intubation: Easy; Technique: Direct laryngoscopy; Tube Size: 7.5 mm; DL Blade Size: Cowan 2; Grade View: 1; Placement Person: LAB CLERK; Attempts: 1 12/22/23 0802 by Nessa Pereira APRN LAB CLERK 12/22/23 1428 by Nessa Pereira APRN LAB CLERK Peripheral IV 12/22/23; 0804; 18 G ; B Bingham; Right; Hand; Alcohol; None; 1; Tolerated well 12/22/23 0804 by Nessa Pereira APRN CRNA 12/24/23 1104 by Shobha Sneed RN Peripheral IV 12/22/23; 0804; 18 G ; B Bingham; Left; Hand; Alcohol; None; Tolerated well 12/22/23 0804 by Nessa Pereira APRN CRNA 12/24/23 0000 by Isaac Hutchins, CARLOS Urethral Catheter 12/22/23; 0830; No; Surgical procedure; [...] Drain 12/22/23; 1408; RLQ ; Bulb; 19 Romansh 12/22/23 1408 by Natasha Alejo RN 12/25/23 [...] on file documented as of this encounter OR Notes * Anesthesia Postprocedure Evaluation - Forest Olson MD - 12/22/2023 4:36 PM CDT Patient: Oleg Richard Procedure: Procedure(s): CYSTECTOMY, pelvic node dissection WITH ILEAL NEOBLADDER CREATION Anesthesia Type: General Note: Disposition: Admission Postop Pain Control: Uneventful Sign Out: Well controlled pain PONV: No Neuro/Psych: Uneventful Sign Out: Acceptable/Baseline neuro status Airway/Respiratory: Uneventful Sign Out: Acceptable/Baseline resp. status CV/Hemodynamics: Uneventful Sign Out: Acceptable CV status; No obvious hypovolemia; No obvious fluid overload Other NRE: NONE DID A NON-ROUTINE EVENT OCCUR? No Last vitals: Vitals Value Taken Time BP 107/65 12/22/23 1630 Temp 36.3 ??C (97.4 ??F) 12/22/23 1432 Pulse 85 12/22/23 1636 Resp 29 12/22/23 1636 SpO2 96 % 12/22/23 1636 Vitals shown include unfiled device data. Electronically Signed By: Forest Olson MD December 22, 2023 4:36 PM * Anesthesia Procedure Notes - Nessa Pereira APRN CRNA - 12/22/2023 8:19 AM CDTAssociated Order(s): Airway Airway Patient location during procedure: OR Procedure Start/Stop Times: 12/22/2023 8:02 AM Staff - LAB CLERK: Nessa Pereira APRN LAB CLERK Performed By: CRNAIndications and Patient Condition Indications for airway management: shiva-procedural Induction type:intravenous Mask difficulty assessment: 0 - not attempted Final Airway Details Final airway type: endotracheal airway Successful airway: ETT - single Endotracheal Airway Details ETT size (mm): 7.5 Cuffed: yes Cuff volume (mL): 7 Successful intubation technique: direct laryngoscopy DL Blade Type: Cowan 2 Grade View of Cords: 1 Position: Right Measured from: lips Secured at (cm): 23 Bite block used: None Post intubation assessment Placement verified by: capnometry, equal breath sounds and chest rise Number of attempts at approach: 1 Number of other approaches attempted: 0 Secured with: tape Ease of procedure: easy Dentition: Intact and Unchanged Medication(s) Administered Medication Administration Time: 12/22/2023 8:02 AM * Anesthesia Preprocedure Evaluation - Forest Olson MD - 12/22/2023 7:46 AM CDT Images from the original note were not included. Pre-Operative H & P CC: Preoperative exam to assess for increased cardiopulmonary risk while undergoing surgery and anesthesia. Date of Encounter: 12/11/2023 Primary Care Physician: System, Provider Not In Reason for visit: No diagnosis found. HPI Oleg Richard is a 63 year old male who presents for pre-operative H & P in preparation for Procedure Information Case: [id number] Date/Time: 12/22/23 0800 Procedure: CYSTECTOMY, pelvic node dissection WITH ILEAL NEOBLADDER CREATION possible ileal conduit(Abdomen) Anesthesia type: General Diagnosis: 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 (H) [C67.9] Pre-op diagnosis: 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 (H) [C67.9] Location: [facility] OR / [facility] OR Providers: Alvaro Clark MD Oleg Richard [...] Medical History Past Medical History: Diagnosis Date ??? Lesion of bladder ??? Migraine ??? 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 (H) Past Surgical History Past Surgical History: Procedure Laterality Date ? ? IR CHEST PORT PLACEMENT > 5 YRS OF AGE 308/28/2023 ??? KNEE SURGERY ??? TRANSURETHRAL RESECTION (TUR) TUMOR BLADDER INSTILL OPTICAL AGENT N/A 07/22/2023 Procedure: BLUE LIGHT CYSTOSCOPY, WITH TRANSURETHRAL RESECTION BLADDER TUMOR; Surgeon: Alvaro Clark MD; [place] [facility] [place] to [place]mission Medications No current outpatient medications on file. Allergies Allergies Allergen Reactions ??? Penicillins Nausea and Vomiting Social History Social History Socioeconomic History ??? Marital status: Single Spouse name: Not on file ??? Number of children: 0 ??? Years of education: Not on file ??? Highest education level: Not on file Occupational History ??? 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 Smoking status: Former Current packs/day: 0.00 Average packs/day: 1.5 packs/day for 30.0 years (45.0 ttl pk-yrs) Types: Cigarettes Start date: 1979 Quit date: 2009 Years since quittin.5 Passive exposure: Past ??? Smokeless tobacco: Never Substance and Sexual Activity ??? Alcohol use: Never ??? Drug use: Never ??? Sexual activity: Not on file Other Topics Concern ??? Not on file Social History Narrative ??? Not on file Social Determinants of Health Financial Resource Strain: High Risk (06/01/2021) [facility] from [facility] Financial Resource Strain ??? Difficulty of Paying Living Expenses: Not on file ??? Difficulty of Paying Living Expenses: Not on file Food Insecurity: Not on file Transportation Needs: Not on file Physical Activity: Not on file Stress: Not on file Social Connections: Unknown (08/15/2021) Received from [facility] Social Connections ??? Frequency of Communication with Friends and Family: Not on file Interpersonal Safety: Not on file Housing Stability: Not on file Family History Family History Problem Relation Age of Onset ??? No Known Problems Mother ??? Bladder Cancer Father ??? Anesthesia Reaction No family hx of ??? 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 Denies any exertional dyspnea or angina. Hematologic: (+) anemia, Musculoskeletal: - neg musculoskeletal ROS GI/Hepatic: - neg GI/hepatic ROS Renal/Genitourinary: Comment: Bladder cancer Endo: - neg endo ROS Psychiatric/Substance Use: - neg psychiatric ROS Infectious Disease: - neg infectious disease ROS Malignancy: (+) Malignancy, History of Other.Other CA bladder cancer Active status post Surgery andChemo. Other: - neg other ROS BP 115/67 Temp 36.9 ??C (98.4 ??F) (Oral) Resp 16 Ht 1.727 m (5' 8) Wt 88 kg (194 lb 0.1 oz) SpO2 96% BMI 29.50 kg/m?? Physical Exam Constitutional: Awake, alert, cooperative, [...] METS exercise without symptoms Total Score: 0 RCRI-Low risk: Class 2 0.9% complication rate Total Score: 1 RCRI: High Risk Surgery PULMONARY AMARJIT Medium Risk Total Score: 3 AMARJIT: Snores loudly AMARJIT: Over 50 ys old AMARJIT: Male - Denies asthma or inhaler use - Tobacco History History Smoking Status ??? Former ??? Types: Cigarettes Smokeless Tobacco ??? Never GI - denies GERD PONV Medium Risk Total Score: 2 1 AN PONV: Patient is not a current smoker 1 AN PONV: Intended Post Op Opioids /RENAL - urothelial carcinoma of bladder with muscle invasion. Surgery planned as above. ENDOCRINE - BMI: Estimated body mass index is 29.5 kg/m?? as calculated from the following: Height as of this encounter: 1.727 m (5' 8). Weight as of this encounter: 88 kg (194 lb 0.1 oz). Overweight (BMI 25.0-29.9) - No history of Diabetes Mellitus HEME VTE High Risk 3% Total Score: 8 VTE: Greater than 59 yrs old VTE: Male VTE: Current cancer - No history of abnormal bleeding or [...] Total time: 24 minutes Rizwana Tejeda APRN [facility] Preoperative Assessment Center [facility] Physical Exam Airway Mallampati: III TM distance: > 3 FB Neck ROM: full Mouth opening: > 3 cm Respiratory Devices and Support Dental (+) Modest Abnormalities - crowns, retainers, 1 or 2 missing teeth Cardiovascular cardiovascular exam normal Rhythm and rate: regular and normal Pulmonary pulmonary exam normal breath sounds clear to auscultation Anesthesia Plan ASA Status: 2 NPO Status: NPO Appropriate Anesthesia Type: General. - Airway: ETT Induction: Intravenous, Propofol. Techniques and Equipment: - Lines/Monitors: 2nd IV Consents Anesthesia Plan(s) and associated risks, benefits, and realistic alternatives discussed. Questions answered and patient/patient registration representative(s) expressed understanding. - Discussed: - Discussed with: Patient - Extended Intubation/Ventilatory Support Discussed: No. - Patient is DNR/DNI Status: No Use of blood products discussed: Yes. - Discussed with: Patient. Postoperative Care Pain management: IV analgesics, Oral pain medications, Multi-modal analgesia. PONV prophylaxis: Ondansetron (or other 5HT-3), Dexamethasone or Solumedrol Comments: documented in this encounter Miscellaneous Notes * Anesthesia Care Transfer Note - Nessa Pereira APRN CRNA - 12/22/2023 2:37 PM CDT Patient: Oleg Richard Procedure: Procedure(s): CYSTECTOMY, pelvic node dissection WITH ILEAL NEOBLADDER CREATION Diagnosis: 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 (H) [C67.9] Diagnosis Additional Information: No value filed. Anesthesia Type: General Note: Oropharynx: oropharynx clear of all foreign objects Level of Consciousness: drowsy Oxygen Supplementation: nasal cannula Independent Airway: airway patency satisfactory and stable Dentition: dentition unchanged Patient transferred to: PACU Handoff Report: Identifed the Patient, Identified the Reponsible Provider, Reviewed the pertinent medical history, Discussed the surgical course, Reviewed Intra-OP anesthesia mangement and issues during anesthesia, Set expectations for post-procedure period and Allowed opportunity for questions andacknowledgement of understanding Vitals: Vitals Value Taken Time BP 113/65 12/22/23 1432 Temp Pulse 92 12/22/23 1437 Resp 6 12/22/23 1437 SpO2 94 % 12/22/23 1437 Vitals shown include unfiled device data. Electronically Signed By: Nessa Pereira APRN CRNA December 22, 2023 2:37 PM documented in this encounter Plan of Treatment Upcoming Encounters Date Type Department Care Team (Late st Contact Info) Description 01/01/2024 9:45 AM CDT Office Visit [address] [place] [address] Alvaro Clark MD 420 [facility] [address] [place], [place] [phone] 02/26/2024 7:45 AM CDT Lab [address] [place] [phone] Ky Torres MD 420 [facility] [address] [place], [place] [address] 02/26/2024 8:40 AM CDT Appointment [facility] [address] [facility] [address] [place] [address] Yessica Mcleod PA-C [address] [place], [place] [phone] 03/04/2024 8:00 AM CDT Oncology Visit [address] [place] [phone] Ky Torres MD [address] [place] [address] [address] [place], [place] [phone] documented as of this encounter Procedures Procedure Name Priority Date/Time Associated Diagnosis Comments ANE AIRWAY ETT PERFORMABLE Routine 12/22/2023 8:02 AM CDT documented in this encounter Results * ANE AIRWAY ETT PERFORMABLE (12/22/2023 8:02 AM CDT) Narrative Nessa Pereira APRN LAB CLERK - 12/22/2023 8:02 AM CDT Nessa Pereira APRN LAB CLERK ? 12/22/2023 ??8:22 AM Airway ? Patient location during procedure: OR ? Procedure Start/Stop Times: 12/22/2023 8:02 AM Staff - ? LAB CLERK: Nessa Pereira APRN LAB CLERK ? Performed By: CRNAIndications and Patient Condition [...] Administered Medication Administration Time: 12/22/2023 8:02 AM Forest Olson MD LA ANESTHESIA documented in this encounter Visit Diagnoses Not on filedocumented in this encounter Administered Medications Inactive Administered Medications - up to 3 most recent administrations Medication Order MAR Action Action Date Dose Rate Site albumin human 5 % injection Intravenous, CONTINUOUS PRN, Starting on Thu12/22/23 at 1021, Anesthesia Intra-op $New Bag 12/22/2023 10:21 AM CDT dexAMETHasone (DECADRON) injection Intravenous, PRN, Administer over 1 Minutes, Starting on Thu12/22/23 at 0830, Anesthesia Intra-op $Given 12/22/2023 8:30 AM CDT 4 mg dexmedeTOMIDine (PRECEDEX) 4 mcg/mL bolus Intravenous, CONTINUOUS PRN, Starting on Thu12/22/23 at 0903, Anesthesia Intra-op $Bolus 12/22/2023 1:51 PM CDT 8 mcg $Bolus 12/22/2023 11:13 AM CDT 12 mcg $New Bag 12/22/2023 9:03 AM CDT 12 mcg fentaNYL (PF) (SUBLIMAZE) injection Intravenous, PRN, Administer over 3-5 Minutes, Starting on Thu12/22/23 at 0757, Anesthesia Intra-op $Given 12/22/2023 1:51 PM CDT 50 mcg $Given 12/22/2023 10:43 AM CDT 50 mcg $Given 12/22/2023 8:30 AM CDT 100 mcg HYDROmorphone (DILAUDID) injection Intravenous, PRN, Starting on Thu12/22/23 at 0830, Anesthesia Intra-op $Given 12/22/2023 1:51 PM CDT 0.5 mg $Given 12/22/2023 10:43 AM CDT 0.5 mg $Given 12/22/2023 8:30 AM CDT 0.5 mg lactated ringers infusion Intravenous, CONTINUOUS PRN, Anesthesia Intra-op, Starting on Thu12/22/23 at 0748, Until Thu12/22/23 at 1437 $New Bag 12/22/2023 1:46 PM CDT $New Bag 12/22/2023 10:54 AM CDT $New Bag 12/22/2023 9:00 AM CDT lidocaine 2% injection (MDV) Intravenous, PRN, Starting on Thu12/22/23 at 0758, Anesthesia Intra-op $Given 12/22/2023 7:58 AM CDT 100 mg midazolam (VERSED) injection Intravenous, Administer over 2 Minutes, PRN, Starting on Thu12/22/23 at 0750, Anesthesia Intra-op $Given 12/22/2023 7:50 AM CDT 2 mg phenylephrine (MINNIE-SYNEPHRINE) injection Intravenous, CONTINUOUS PRN, Starting on Thu12/22/23 at 1001, Anesthesia Intra-op $Bolus 12/22/2023 12:22 PM CDT 100 mcg $Bolus 12/22/2023 12:07 PM CDT 100 mcg $Bolus 12/22/2023 10:19 AM CDT 100 mcg propofol (DIPRIVAN) injection 10 mg/mL vial Intravenous, PRN, Starting on Thu12/22/23 at 0759, Anesthesia Intra-op $Given 12/22/2023 7:59 AM CDT 200 mg rocuronium injection Intravenous, PRN, Starting on Thu12/22/23 at 0800, Anesthesia Intra-op $Given 12/22/2023 1:11 PM CDT 10 mg $Given 12/22/2023 12:01 PM CDT 20 mg $Given 12/22/2023 11:53 AM CDT 20 mg sugammadex (BRIDION) injection Intravenous, PRN, Starting on Thu12/22/23 at 1404, Anesthesia Intra-op $Given 12/22/2023 2:04 PM CDT 200 mg documented in this encounter Care Teams Head Cager Relationship Specialty Start Date End Date No Ref-Primary, Physician PCP - General 12/22/23 Alvaro Clark MD [address] [place] [phone] Assigned Surgical Provider 07/24/23 Yessica Mcleod PA-C [address] [place] [address] [phone] Assigned Cancer Care Provider 12/22/23 documented as of this encounter
--- OUTSIDE RECORDS SUMMARY | 2023-12-26 23:07 | XMS_ITS | Encounter Summary ---
Author Organization [facility] Address [address] [place] [address] Care Team Providers Care Batch Blender Name Role Phone Alvaro Clark MD Unavailable System, Provider Not In Primary Care Provider Un available Sixto Whalen APRN [employer] Unavailable [phone] Reason for Referral * Consultation (Routine: Next available opening) - Pending Review Specialty Diagnoses / Procedures Referred By Contac t Referred To Contact Diagnoses 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 (H) Alvaro Clark MD 420 [facility] [address] [place] [address] Referral ID Status Reason Start Date Expiration Date V isits Requested Visits Authorized [id number] Pending Review 11/20/2023 11/19/2024 1 1 Question Answer Patient Has a History of: Several comorbidities Scheduling Instructions: [facility] will call you to coordinate your care as prescribed by your provider. If you don't hear from a service representative within 2 business days, please call . Comments Please be aware that coverage of these services is subject to the terms and limitations of your health insurance plan. Call member services at your health plan with any benefit or coverage questions. [facility] will call you to coordinate your care as prescribed by your provider. If you don't hear from a service representative within 2 business days, please call . Encounter Details Date Type Department Care Team (Late st Contact Info) Description 11/20/2023 Orders Only [facility] [address] [place] [phone] Alvaro Clark MD [address] [place] [phone] 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 (H) (Primary Dx) Social History Tobacco Use [...] Description 01/01/2024 9:45 AM CDT Office Visit [address] [facility] [place] [address] Alvaro Clark MD [address] [place] [phone] 02/26/2024 7:45 AM CDT Lab [address] [place] [address] Ky Torres MD [address] [place] [address] 02/26/2024 8:40 AM CDT Appointment [facility] Imaging [address] [facility] [address] [place] [phone] Yessica Mcleod PA-C [address] [place] [phone] 03/04/2024 8:00 AM CDT Oncology Visit [facility] [address] [facility] [address] [facility] [place] [address] Ky Torres MD 420 [facility] [address] [place], [place] [phone] Scheduled Referrals Name Type Priority Associated Diagnoses Orde r Schedule PAC Visit Referral (For [facility] Only) Referral Routine: Next available opening 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 (H) Expected: 11/20/2023 (Approximate), Expires: 11/19/2024 documented as of this encounter Visit Diagnoses Diagnosis 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 (H)- Primary documented in this encounter Care Teams Batch Blender Relationship Specialty Start Date End Date System, Provider Not In PCP - General Clinic 08/13/23 12/21/23 Alvaro Clark MD 420 [facility] [address] [place] [address] Assigned Surgical Provider 07/24/23 Sixto Whalen APRN [employer] [address] [place] [phone] Assigned Cancer Care Provider 10/22/23 12/21/23 documented as of this encounter
--- OUTSIDE RECORDS SUMMARY | 2023-12-26 23:07 | XMS_ITS | Encounter Summary ---
Author Organization [facility] Address [address] [place] [address] Care Team Providers Care Hosiery Looper Name Role Phone Alvaro [place] MD Unavailable System, Provider Not In Primary Care Provider Un available Sixto Whalen APRN COMPUTER FORENSICS TECHNICIAN Unavailable [phone] Reason for Referral * Diagnostic Imaging CT Scan (Routine) - Closed Specialty Diagnoses / Procedures Referred By Contac t Referred To Contact Radiology. 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 [place] [phone] Referral ID Status Reason Start Date Expiration Date Visits Re quested Visits Authorized [id number] Closed 11/18/2023 11/17/2024 1 1 Reason for Visit * Diagnostic Imaging CT Scan (Routine) - Closed Specialty Diagnoses / Procedures Referred By Contac t Referred To Contact Radiology. 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) Discharge Disposition: Home or Self Care Social [...] Description 01/01/2024 9:45 AM CDT Office Visit [address] [facility] [place] [address] Alvaro [place] MD 420 [facility] [address] [place], [place] [address] 02/26/2024 7:45 AM CDT Lab [address] [place] [address] Ky Torres MD [address] [id number] 02/26/2024 8:40 AM CDT Appointment [facility] Imaging [address] [place] [phone] Yessica Mcleod PA-C 909 [place] [address] 03/04/2024 8:00 AM CDT Oncology Visit [address] 200 [place] [address] Ky Torres MD [address] [address] documented as of this encounter Procedures Procedure Name Priority Date/Time Associated Diagnosis Comments CT CHEST/ABDOMEN/PELVI S W CONTRAST Routine 11/25/2023 12:03 PM CDT 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 $Given 11/25/2023 11:53 AM CDT 67 mLs documented in this encounter Care Teams Hosiery Looper Relationship Specialty Start Date End Date System, Provider Not In PCP - General Clinic 08/13/23 12/21/23 Alvaro [place] MD 420 [facility] [address] [place], [place] [address] Assigned Surgical Provider 07/24/23 Sixto Whalen APRN COMPUTER FORENSICS TECHNICIAN [address] [place] [address] Assigned Cancer Care Provider 10/22/23 12/21/23 documented as of this encounter
--- OUTSIDE RECORDS SUMMARY | 2023-12-26 23:07 | XMS_ITS | Encounter Summary ---
Author Organization [facility] Address [address] [place] [address] Care Team Providers Care Stock Letterer Name Role Phone Alvaro [place] MD Unavailable System, Provider Not In Primary Care Provider Un available Sixto Whalen APRN REMOTE SENSING PROGRAM MANAGER Unavailable [phone] Encounter Details Date Type Department Care Team (Late st Contact Info) Description 12/08/2023 PRE VISIT [facility] [address] 5th [place] [phone] Rizwana Tejeda APRN REMOTE SENSING PROGRAM MANAGER [address] [place] [address] Social History Tobacco Use Types Packs/Day Years [...] * Telephone Encounter - Lori Clemens - 11/27/2023 7:20 AM CDT FUTURE VISIT INFORMATION SURGERY INFORMATION: [...] Description 01/01/2024 9:45 AM CDT Office Visit [address] 200 [facility] [place] [phone] Alvaro [place] MD [address] [place] [address] 394 [place], [place] [address] 02/26/2024 7:45 AM CDT Lab [address] [place] [phone] Ky Torres MD [address] [place] [id number] 02/26/2024 8:40 AM CDT Appointment [facility] Imaging [address] [place] [phone] Yessica Mcleod PA-C 909 [place], [place] [address] 03/04/2024 8:00 AM CDT Oncology Visit [address] 200 [facility] [place] [address] Ky Torres MD [address] [place] [address] documented as of this encounter Visit Diagnoses Not on filedocumented in this encounter Care Teams Stock Letterer Relationship Specialty Start Date End Date System, Provider Not In PCP - General Clinic 08/13/23 12/21/23 Alvaro [place] MD 420 [facility] 394 [place], [place] [address] Assigned Surgical Provider 07/24/23 Sixto Whalen APRN REMOTE SENSING PROGRAM MANAGER 909 [place] [address] Assigned Cancer Care Provider 10/22/23 12/21/23 documented as of this encounter
--- OUTSIDE RECORDS SUMMARY | 2023-12-26 23:07 | XMS_ITS | Encounter Summary ---
Author Organization [place] Address [address] [place] [address]. [place] [address] Care Team Providers Care Machinist Job Setter Name Role Phone Alvaro [place] MD Unavailable System, Provider Not In Primary Care Provider Un available Sixto Whalen APRN SALES MARKETING MANAGER Unavailable [phone] Encounter Details Date Type Department Care Team (Late st Contact Info) Description 11/25/2023 10:56 AM CDT - 11/25/2023 2:17 PM CDT Hospital Encounter [facility] [address] [place] [phone] Non-Fv Credentialed Provider, Radiology Thuan Rodrigeuz MD 420 [facility] 292 [place], [place] [address] Discharge Disposition: Home or Self Care Social [...] 06/18/2023 12/11/2023 documented as of this encounter Progress Notes * Susy Yeager RN - 11/24/2023 12:27 PM CDT STACEY Jeffries, notified at 1017 on 11/23 regarding patient needing VAD orders. documented in this encounter Plan of Treatment Upcoming Encounters Date Type Department Care Team (Late st Contact Info) Description 01/01/2024 9:45 AM CDT Office Visit [place] [address] [place] [phone] Alvaro [place] MD [address] [place] [address] 394 [place], [place] [address] 02/26/2024 7:45 AM CDT Lab [place] [address] [place] [address] Ky Torres MD 420 [facility] 480 [place] [address] 02/26/2024 8:[address] [facility] Imaging [address] [place] [address] [place] [phone] Yessica Mcleod PA-C 909 [place] [address] 03/04/2024 8:00 AM CDT Oncology Visit [facility] [place] [address] [place] [address] 200 [facility] [place] [phone] Ky Torres MD 420 [facility] 480 [place] [address] documented as of this encounter Visit Diagnoses Not on filedocumented in this encounter Administered Medications Inactive Administered Medications - up to 3 most recent administrations Medication Order MAR Action Action Date Dose Rate Site heparin lock flush 10 unit/mL injection 5-10 mL 5-10 mL, Intracatheter, EVERY 1 HOUR PRN, post meds or blood draw, other, to lock each port in dual implanted port, Starting on Thu11/25/23 at 1137, Flush each port lumen with the sodium chloride 0.9% flush followed by the heparin flush. MAX dose: 5 mL of heparin for each lumen heparin lock flush 10 unit/mL injection 5-10 mL 5-10 mL, Intracatheter, EVERY 24 HOURS, First dose on Thu11/25/23 at 1200, To lock each dormant port in dual implanted port. MAX: 5 mL of heparin for each lumen Check PRN heparin flush order to see when the last dose of the PRN heparin was given before administering this heparin dose. Flush with sodium chloride 0.9% followed by the heparin flush. heparin lock flush 100 unit/mL injection 5-10 mL 5-10 mL, Intracatheter, EVERY 28 DAYS, First dose on Thu11/25/23 at 1200, To de-access each port in dual implanted port. Flush with 10 mL NS sodium chloride 0.9% flush followed by 5 mL heparin (100 units/mL) at discharge and at least every 28 days. MAX: 5 mL per each port lumen $Given 11/25/2023 12:03 PM CDT 5 mLs sodium chloride (PF) 0.9% PF flush 10-20 mL 10-20 mL, Intracatheter, EVERY 1 MIN PRN, line flush, post meds or blood draw, to flush each lumen of the CVC Implanted port, Starting on Thu11/25/23 at 1137, 10 mL per port lumen post IV meds; 20 mL per port lumen post post blood draw. sodium chloride (PF) 0.9% PF flush 10-20 mL 10-20 mL, Intracatheter, EVERY 1 HOUR PRN, other, to de-access port when not in use, Starting on Thu11/25/23 at 1137, Use sodium chloride 0.9% at least daily to de-access each port and lock dormant implanted port while not in use. Flush each port access with 10 mL sodium chloride 0.9% MAX: 10 mL per each port lumen sodium chloride (PF) 0.9% PF flush 10-20 mL 10-20 mL, Intracatheter, EVERY 28 DAYS, First dose on Thu11/25/23 at 1200, To flush and lock each port in dual implanted port. Flush each port with 10 mL sodium chloride 0.9% followed by either heparin or anticoagulant citrate as ordered. Max: 10 mL per each port lumen. documented in this encounter Active and Recently Administered Medications Times are shown in CDT. Scheduled Medication Order 11/23/2023 11/24/2023 11/25/2023 heparin lock flush 10 unit/mL injection 5-10 mL 5-10 mL, Intracatheter, EVERY 24 HOURS, First dose on Thu11/25/23 at 1200, To lock each dormant port in dual implanted port. MAX: 5 mL of heparin for each lumen Check PRN heparin flush order to see when the last dose of the PRN heparin was given before administering this heparin dose. Flush with sodium chloride 0.9% followed by the heparin flush. 1200 (Canceled Entry - Provider: Orders Generic Provider - Comment: Automatically canceled at discontinue of medication order) heparin lock flush 100 unit/mL injection 5-10 mL 5-10 mL, Intracatheter, EVERY 28 DAYS, First dose on Thu11/25/23 at 1200, To de-access each port in dual implanted port. Flush with 10 mL NS sodium chloride 0.9% flush followed by 5 mL heparin (100 units/mL) at discharge and at least every 28 days. MAX: 5 mL per each port lumen 1203 ($Given - Provi shabbir: Evette Adair RN) sodium chloride (PF) 0.9% PF flush 10-20 mL 10-20 mL, Intracatheter, EVERY 28 DAYS, First dose on Thu11/25/23 at 1200, To flush and lock each port in dual implanted port. Flush each port with 10 mL sodium chloride 0.9% followed by either heparin or anticoagulant citrate as ordered. Max: 10 mL per each port lumen. 1200 (Canceled Entry - Provider: Orders Generic Provider - Comment: Automatically canceled at discontinue of medication order) PRN Medication Order 11/23/2023 11/24/2023 11/25/2023 heparin lock flush 10 unit/mL injection 5-10 mL 5-10 mL, Intracatheter, EVERY 1 HOUR PRN, post meds or blood draw, other, to lock each port in dual implanted port, Starting on Thu11/25/23 at 1137, Flush each port lumen with the sodium chloride 0.9% flush followed by the heparin flush. MAX dose: 5 mL of heparin for each lumen sodium chloride (PF) 0.9% PF flush 10-20 mL 10-20 mL, Intracatheter, EVERY 1 MIN PRN, line flush, post meds or blood draw, to flush each lumen of the CVC Implanted port, Starting on Thu11/25/23 at 1137, 10 mL per port lumen post IV meds; 20 mL per port lumen post post blood draw. sodium chloride (PF) 0.9% PF flush 10-20 mL 10-20 mL, Intracatheter, EVERY 1 HOUR PRN, other, to de-access port when not in use, Starting on Thu11/25/23 at 1137, Use sodium chloride 0.9% at least daily to de-access each port and lock dormant implanted port while not in use. Flush each port access with 10 mL sodium chloride 0.9% MAX: 10 mL per each port lumen documented in this encounter Care Teams Machinist Job Setter Relationship Specialty Start Date End Date System, Provider Not In PCP - General Clinic 08/13/23 12/21/23 Alvaro [place] MD [address] [place] [address] Assigned Surgical Provider 07/24/23 Sixto Whalen APRN CNP [address] [place] [address] Assigned Cancer Care Provider 10/22/23 12/21/23 documented as of this encounter
--- OUTSIDE RECORDS SUMMARY | 2023-12-26 23:07 | XMS_ITS | Encounter Summary ---
Author Organization [facility] Address [address] [place] [address] Care Team Providers Care Renderer Name Role Phone Alvaro [place] MD Unavailable System, Provider Not In Primary Care Provider Un available Sixto Whalen APRN HIGH SCHOOL ART TEACHER Unavailable [phone] Encounter Details Date Type Department Care Team (Latest Contact Info) Description 11/27/2023 Travel Social History Tobacco Use Types Packs/Day [...] Description 01/01/2024 9:45 AM CDT Office Visit [place] [address] 200 [facility] [place] [phone] Alvaro [place] MD 420 [facility] 394 [place], [place] [address] 02/26/2024 7:45 AM CDT Lab [facility] Medical [place] [address] [place] [phone] Ky Torres MD 420 [facility] 480 [place] [address] 02/26/2024 8:40 AM CDT Appointment [facility] Imaging [address] [place] [phone] Yessica Mcle[place] PA-C 909 [place], [place] [address] 03/04/2024 8:00 AM CDT Oncology Visit [facility] [address] [address] [facility] [place] [phone] [place], Ky Acharya MD [address] [address] documented as of this encounter Visit Diagnoses Not on filedocumented in this encounter Care Teams Renderer Relationship Specialty Start Date End Date System, Provider Not In PCP - General Clinic 08/13/23 12/21/23 Alvaro [place] MD [address] [place] [id number] Assigned Surgical Provider 07/24/23 Sixto Whalen APRN HIGH SCHOOL ART TEACHER 9 [place] [address] Assigned Cancer Care Provider 10/22/23 12/21/23 documented as of this encounter
--- OUTSIDE RECORDS SUMMARY | 2023-12-26 23:07 | XMS_ITS | Encounter Summary ---
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 Both of your labs are stable and good for surgery. Rizwana Tejeda DNP, RN, ANP-C documented in this encounter Plan of Treatment Upcoming Encounters Date Type Department Care Team (Late st Contact Info) Description 01/01/2024 9:45 AM CDT Office Visit [address] [place] [phone] Alvaro [place] MD 420 [facility] 394 [place], [place] [phone] 02/26/2024 7:45 AM CDT Lab [address] [place] [phone] Ky Torres MD [address] [place] [address] 480 [place], [place] [address] 02/26/2024 8:40 AM CDT Appointment [facility] Imaging [address] [place] [address] [place] [phone] Yessica Mcle[place] PA-C 909 [place], [place] [address] 03/04/2024 8:00 AM CDT Oncology Visit [address] [place] [phone] Ky Torres MD [address] [place] [address] documented as of this encounter Procedures Procedure Name Priority Date/Time Associated Diagnosis Comments TYPE AND SCREEN, ADULT Routine 12/11/2023 8:32 AM CDT Preop examination 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 (H) ABO/RH TYPE AND SCREEN Routine 12/11/2023 8:32 AM CDT Preop examination 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 (H) BASIC METABOLIC PANEL Routine 12/11/2023 8:32 AM CDT Preop examination 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 (H) CBC WITH PLATELETS Routine 12/11/2023 8: 32 AM CDT Preop examination 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 (H) documented in this encounter Results * Adult Type and Screen (12/11/2023 8:32 AM CDT) Pathologist [facility] ABO/RH(D) A NEG 12/10/2023 7:00 PM CDT U BLOOD BANK Antibody Screen Negative Negative 12/10/2023 7:00 PM CDT U BLOOD BANK SPECIMEN EXPIRATION DATE [id number] 12/10/2023 7:00 PM CDT BLOOD BANK Blood STRUCTURE OF LEFT UPPER LIMB / Unknown Venipuncture / Unknown 12/11/2023 8:32 AM CDT 12/11/2023 8:32 AM CDT Rizwana Tejeda APRN STEEL RULE INSPECTOR LAB - BLOO D BANK TEST ORDER BLOOD BANK [address] [place] [address] * Basic metabolic panel (12/11/2023 8:32 AM CDT) Pathologist [facility] Sodium 140 135 - 145 mmol/L 12/11/2023 9:04 AM CDT [facility] Potassium 4.8 3.4 - 5.3 mmol/L 12/11/2023 9:04 AM CDT [facility] Chloride 103 98 - 107 mmol/L 12/11/2023 9:04 AM CDT [facility] Carbon Dioxide (CO2) 28 22 - 29 mmol/L 12/11/2023 9:04 AM CDT [facility] Anion Gap 9 7 - 15 mmol/L 12/11/2023 9:04 AM CDT [facility] Urea Nitrogen 14.4 8.0 - 23.0 mg/dL 12/11/2023 9:04 AM CDT [facility] Creatinine 0.86 0.67 - 1.17 mg/dL 12/11/2023 9:04 AM CDT [facility] GFR Estimate >90 >60 mL/min/1.7 3m2 12/11/2023 9:04 AM CDT [facility] Comment:eGFR calculated usin 2020 CKD-EPI equation. Calcium 9.2 8.8 - 10.2 mg/dL 12/11/2023 9:04 AM CDT [facility] Glucose 99 70 - 99 mg/dL 12/11/2023 9:04 AM CDT [facility] Blood STRUCTURE OF LEFT UPPER LIMB / Unknown Venipuncture / Unknown 12/11/2023 8:32 AM CDT 12/11/2023 8:32 AM CDT Rizwana Tejeda APRN STEEL RULE INSPECTOR LAB - BLOO D ORDERABLES [facility] [address] 1st [place] [address] * (ABNORMAL) CBC with platelets (12/11/2023 8:32 AM CDT) WBC Count 7.1 4.0 - 11.0 10e3/uL 12/11/2023 8:38 AM CDT [facility] RBC Count 3.91(L) 4.40 - 5.90 10e6/uL 12/11/2023 8:38 AM CDT [facility] Hemoglobin 11.4(L) 13.3 - 17.7 g/dL 12/11/2023 8:38 AM CDT [facility] Hematocrit 34.8(L) 40.0 - 53.0 % 12/11/2023 8:38 AM CDT [facility] MCV 89 78 - 100 fL 12/11/2023 8:38 AM CDT [facility] MCH 29.2 26.5 - 33.0 pg 12/11/2023 8:38 AM CDT [facility] MCHC 32.8 31.5 - 36.5 g/dL 12/11/2023 8:38 AM CDT [facility] RDW 16.1(H) 10.0 - 15.0 % 12/11/2023 8:38 AM CDT [facility] Platelet Count 196 150 - 450 10e3/uL 12/11/2023 8:38 AM CDT [facility] Blood STRUCTURE OF LEFT UPPER LIMB / Unknown Venipuncture / Unknown 12/11/2023 8:32 AM CDT 12/11/2023 8:32 AM CDT Rizwana Tejeda APRN STEEL RULE INSPECTOR LAB - BLOO D ORDERABLES [facility] [place] [address] [place] [address] 1st [place] [address] documented in this encounter Visit Diagnoses Diagnosis Preop examination Preoperative examination, unspecified 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 (H) documented in this encounter Care Teams Skill Labor Relationship Specialty Start Date End Date System, Provider Not In PCP - General Clinic 08/13/23 12/21/23 Alvaro [place] MD [address] [place] [address] Assigned Surgical Provider 07/24/23 Sixto Whalen APRN CNP [address] [place] [address] Assigned Cancer Care Provider 10/22/23 12/21/23 documented as of this encounter
--- OUTSIDE RECORDS SUMMARY | 2023-12-26 23:08 | XMS_ITS | Encounter Summary ---
Author Organization [place] Address [address] [place] [address] Care Team Providers Care Patient Registration Clerk Name Role Phone Alvaro Clark MD Unavailable System, Provider Not In Primary Care Provider Un available Sixto Whalen APRN CLIENT SUCCESS MANAGER Unavailable [phone] Reason for Visit * Reason Comments Chemotherapy C3D1 Methotrexate + Vinblastine + Doxorubicin + Cisplatin + Pre/Post IV hydration + Neulasta On-Pro * (Routine) - Pending Review Specialty Diagnoses / Procedures Referred By Contac t Referred To Contact Infusion Therapy Diagnoses A-MVAC labs and provider day prior Procedures INFUSION 5.5 HR (330 MIN) [facility]fusion [address] [facility] [address] [place] [address] Referral ID Status Reason Start Date Expiration Date V isits Requested Visits Authorized [id number] Pending Review 10/28/2023 10/27/2024 1 1 Encounter Details Date Type Department Care Team (Latest Contact Info) Description 10/28/2023 9:00 AM CDT Infusion Therapy Visit [facility] [address] [address] [place] [phone] Yessica Mcleod PA-C 9 [place] [address] Urothelial cancer (H) (Primary Dx) [...] Sign Reading Time Taken Comments Blood Pressure 123/75 10/28/2023 8:39 AM CDT Pulse 73 10/28/2023 8:39 AM CDT Temperature 36.2 ??C (97.2 ??F) 10/28/2023 8:39 AM CD T Respiratory Rate 16 10/28/2023 8:39 AM CDT Oxygen Saturation 95% 10/28/2023 8:39 AM CDT Inhaled Oxygen Concentration - - Weight 88.6 kg (195 lb 4.8 oz) 10/28/2023 8:39 A M CDT Height - - Body Mass Index 30.59 10/27/2023 2:14 PM CDT documented in this encounter Progress Notes * Ginger Waller, RN - 10/28/2023 9:00 AM CDT Infusion Nursing Note: Oleg Richard presents today for C3D1 Methotrexate + Vinblastine + Doxorubicin + Cisplatin + Pre/Post IV hydration + Neulasta On-Pro. Patient seen by provider today: No (s/p virtual visit with Sixto Whalen NP on 10/26) Leather Production Worker present during visit today: Not Applicable. Note: N/A. Intravenous Access: Implanted Port. Treatment Conditions: Lab Results Component Value Date HGB 12.8 (L) 10/27/2023 WBC 17.9 (H) 10/27/2023 ANEU 13.6 (H) 10/27/2023 ANEUTAUTO 4.2 09/29/2023 PLT 194 10/27/2023 Lab Results Component Value Date NA 140 10/27/2023 POTASSIUM 4.4 10/27/2023 MAG 1.9 10/27/2023 CR 0.76 10/27/2023 JUANY 8.7 (L) 10/27/2023 BILITOTAL <0.2 10/27/2023 ALBUMIN 3.7 10/27/2023 ALT 21 10/27/2023 AST 20 10/27/2023 Results reviewed, labs MET treatment parameters, ok to proceed with treatment. ECHO/MUGA completed 09/24/2023 EF 69%. Post Infusion Assessment: Patient tolerated infusion without incident. Blood return noted pre and post infusion. Site patent and intact, free from redness, edema or discomfort. No evidence of extravasations. Access discontinued per protocol. ONPRO Was placed on patient's: back of left arm at 12:36 PM. Podpal used: Yes ONPRO injector device Lot number: see MAR Patient education included: what patient can expect after application, what colored lights mean on the device, when to remove device, when and where to call with questions or issues, all patients questions answered, and that Neulasta administration will occur at ~3:45 PM on 10/28. Patient instructedto check device at 4:30 PM on 10/28. Patient tolerated administration well. Discharge Plan: Discharge instructions reviewed with: Patient. Patient and/or family verbalized understanding of discharge instructions and all questions answered. AVS to patient via [employer]. Patient will return 11/09 for next appointment. Patient discharged in stable condition accompanied by: self. Departure Mode: Ambulatory. Felix Waller RN documented in this encounter Plan of Treatment Upcoming Encounters Date Type Department Care Team (Late st Contact Info) Description 01/01/2024 9:45 AM CDT Office Visit [place] [address] [facility] [place] [phone] Alvaro Clark MD 420 [facility] [address] [place] [address] 02/26/2024 7:45 AM CDT Lab [place] [address] [place] [address] Ky Torres MD 420 [facility] [address] [place], [place] [address] 02/26/2024 8:40 AM CDT Appointment [facility] [address] [place] [phone] Yessica Mcleod PA-C [address] [place] [phone] 03/04/2024 8:00 AM CDT Oncology Visit [facility] [address] [facility] [place] [phone] Ky Torres MD 420 [facility] [address] [place], [place] [address] documented as of this encounter Visit Diagnoses Diagnosis Urothelial cancer (H)- Primary Malignant neoplasm of other specified sites of urinary organs documented in this encounter Administered Medications Inactive Administered Medications - up to 3 most recent administrations Medication Order MAR Action Action Date Dose Rate Site CISplatin (PLATINOL) 140 mg, mannitol 25 % 25 g in sodium chloride 0.9 % 1,250 mL infusion 140 mg, Intravenous, ONCE, On Thu10/28/23 at 1000, For 1 dose, Administer over 2 Hours, If combined with Mannitol, 0.2 micron filter required. Dose changed from 144 mg to 140 mg per rounding policy. Change within 10%. (dosed at 70mg/m2) Tx plan 2.05 m2 Waqas Grace PharmD. October 28, 2023 Possible Vesicant or Irritant depending on concentration. See extravasation policy. May require hepatic and/or renal dose or frequency adjustments. See reference link for guidelines. If this chemotherapy plan contains a taxane (paclitaxel, paclitaxel-protein bound, docetaxel, or cabazitaxel) on the same day, administer this yakutat agent after the taxane. $New Bag 10/28/2023 10:19 AM CDT 140 mg 625 mL/hr DOXOrubicin (ADRIAMYCIN) injection 60 mg 60 mg (rounded from 61.5 mg = 30 mg/m2 ? 2.05 m2 Treatment Plan BSA from Recorded weight), Intravenous Push, ONCE, On Thu10/28/23 at 0945, For 1 dose, Administer over 5-10 Minutes, Protect from light. Vesicant. May require hepatic and/or renal dose or frequency adjustments. See reference link for guidelines. $Given 10/28/2023 10:10 AM CDT 60 mg fosaprepitant (EMEND) 150 mg, dexAMETHasone (DECADRON) 12 mg in sodium chloride 0.9 % 276.2 mL intermittent infusion Intravenous, Administer over 20 Minutes, ONCE, On Thu10/28/23 at 0900, For 1 dose, Give 30 mins before treatment. $New Bag 10/28/2023 9:10 AM CDT 828.6 mL/hr heparin 100 unit/mL injection 5 mL 5 mL, Intracatheter, ONCE PRN, To de-access CVC Impanted port or lock each lumen, Starting on Thu10/28/23 at 0848, PORT: to de-access, instill 5 mL before PORT needle is removed and every 28 days. Apheresis: only for use when patient is NOT under care of apheresis services; after a 10 mL NS flush, lock each lumen of the catheter with 5 mL. $Given 10/28/2023 1:32 PM CDT 5 mLs methotrexate injection 61.5 mg 61.5 mg (30 mg/m2 ? 2.05 m2 Treatment Plan BSA from Recorded weight), Intravenous Push, ONCE, Administer over 2-3 Minutes, On Thu10/28/23 at 0930, For 1 dose, Protect from light. May require hepatic and/or renal dose or frequency adjustments. See reference link for guidelines. Administering doses with an Equashield system requires an LL-2 adapter. Obtain from pharmacy if not stocked on patient care unit. $Given 10/28/2023 9:55 AM CDT 61.5 mg palonosetron (ALOXI) injection 0.25 mg 0.25 mg, Intravenous, ONCE, On Thu10/28/23 at 0900, For 1 dose, Give 30 mins before treatment. $Given 10/28/2023 9:12 AM CDT 0.25 mg pegfilgrastim (NEULASTA Onpro Kit) On-body injector 6 mg 6 mg, Subcutaneous, ONCE, On Thu10/28/23 at 0900, For 1 dose, Attention: Use this order for Neulasta Onpro - on-body injector OR use the clinic administered Neulasta (in the next Day below). Do not use both orders. For prevention of chemotherapy induced neutropenia. $Given 10/28/2023 12:36 PM CDT 6 mg Left Arm sodium chloride (PF) 0.9% PF flush 3-20 mL 3-20 mL, Intracatheter, EVERY 1 MIN PRN, line flush, post meds or blood draw, Starting on Thu10/28/23 at 0848, PIV: 3 mL after each use & [...] patency; 20 mL after blood draw. $Given 10/28/2023 1:32 PM CDT 10 mLs sodium chloride 0.9 % 1,000 mL with potassium chloride 20 mEq, magnesium sulfate 2 g infusion 1,064 mL, at 532 mL/hr, Intravenous, ONCE, 1 dose, On Thu10/28/23 at 1200, Post-CISplatin. Central line: administer over 1 hour. Peripheral line: administer over 2 hours. (Give to counteract the known toxicity of Cisplatin) $New Bag 10/28/2023 12:29 PM CDT 999 mL/hr sodium chloride 0.9% BOLUS 1,000 mL Intravenous, 1,000 mL, ONCE, at 1,000 mL/hr, Administer over 1 Hours, On Thu10/28/23 at 0900, For 1 dose, Pre-CISplatin. Start 30-60 minutes prior to chemo. (Give to counteract the known toxicity of Cisplatin) $New Bag 10/28/2023 9:07 AM CDT 1,000 mLs 1000 mL/hr vinBLAStine (VELBAN) 6.2 mg in sodium chloride 0.9 % 33.7 mL infusion 6.2 mg (rounded from 6.15 mg = 3 mg/m2 ? 2.05 m2 Treatment Plan BSA from Recorded weight), Intravenous, ONCE, On Thu10/28/23 at 0930, For 1 dose, [place] hang. For Intravenous Use Only. Fatal If Given By Other Routes. Vesicant. May require hepatic and/or renal dose or frequency adjustments. See reference link for guidelines. $New Bag 10/28/2023 10:02 AM CDT 6.2 mg documented in this encounter Care Teams Patient Registration Clerk Relationship Specialty Start Date End Date System, Provider Not In PCP - General Clinic 08/13/23 12/21/23 Alvaro Clark MD 420 [facility] [address] [place] [address] Assigned Surgical Provider 07/24/23 Sixto Whalen APRN CNP [address] [place], [place] [address] Assigned Cancer Care Provider 10/22/23 12/21/23 documented as of this encounter
--- OUTSIDE RECORDS SUMMARY | 2023-12-26 23:08 | XMS_ITS | Encounter Summary ---
Author Organization [facility] Address [address] [place] [address] Care Team Providers Care Manager Copy Name Role Phone Alvaro Clark MD Unavailable System, Provider Not In Primary Care Provider Un available Sixto Whalen APRN GEOMORPHOLOGY TEACHER Unavailable [phone] Encounter Details Date Type Department Care Team (Late st Contact Info) Description 10/22/2023 Orders Only [facility] [place] [phone] Luma Malcolm, [facility] Social History Tobacco Use Types Packs/Day Years [...] Description 01/01/2024 9:45 AM CDT Office Visit [facility] [address] [place] [address] [facility] [place] [address] Alvaro Clark MD [address] [address] 02/26/2024 7:45 AM CDT Lab [facility] [place] [address] [place] [address] [address] [place] [address] Ky Torres MD [address] [address] 02/26/2024 8:40 AM CDT Appointment [facility] Imaging [address] [place] [address] [place] [address] Yessica Mcleod PA-C [address] [place] [address] 03/04/2024 8:00 AM CDT Oncology Visit [address] [place] [address] Ky Torres MD [address] [address] documented as of this encounter Visit Diagnoses Not on filedocumented in this encounter Care Teams Manager Copy Relationship Specialty Start Date End Date System, Provider Not In PCP - General Clinic 08/13/23 12/21/23 Alvaro Clark MD [address] [id number] Assigned Surgical Provider 07/24/23 Sixto Whalen APRN CNP [address] [place] [address] Assigned Cancer Care Provider 10/22/23 12/21/23 documented as of this encounter
--- OUTSIDE RECORDS SUMMARY | 2023-12-26 23:08 | XMS_ITS | Encounter Summary ---
Author Organization [place] Address [address] [place] [address] Care Team Providers Care Stacker Attendant Name Role Phone Alvaro Clark MD Unavailable System, Provider Not In Primary Care Provider Un available Ky Torres MD Unavailable [phone] Encounter Details Date Type Department Care Team (Late st Contact Info) Description 10/13/2023 MyC Medical Advice [address] [facility] [place] [phone] Charlie Almonte, CARLOS Urothelial cancer (H) Social History Tobacco Use Types Packs/Day [...] Description 01/01/2024 9:45 AM CDT Office Visit [address] [facility] [place] [phone] Alvaro Clark MD 420 [facility] [address] [place] [address] 02/26/2024 7:45 AM CDT Lab [facility] [address] [place] [address] [address] [place] [address] Ky Torres MD 420 [facility] [address] [place] [address] 02/26/2024 8:40 AM CDT Appointment [facility] Imaging [address] [place] [address] [place] [phone] Yessica Mcleod PA-C [address] [place] [address] 03/04/2024 8:00 AM CDT Oncology Visit [facility] [address] [place] [address] [address] [facility] [place] [address] Ky Torres MD [address] [address] documented as of this encounter Visit Diagnoses Diagnosis Urothelial cancer (H) Malignant neoplasm of other specified sites of urinary organs documented in this encounter Care Teams Stacker Attendant Relationship Specialty Start Date End Date System, Provider Not In PCP - General Clinic 08/13/23 12/21/23 Alvaro Clark MD [address] [place] [address] 394 [place] [address] Assigned Surgical Provider 07/24/23 Ky Torres MD 420 [facility] [address] [place] [address] Assigned Cancer Care Provider 09/22/23 10/21/23 documented as of this encounter
--- OUTSIDE RECORDS SUMMARY | 2023-12-26 23:08 | XMS_ITS | Encounter Summary ---
Author Organization [facility] Address [address] [place] [address] Care Team Providers Care Hand Packer Name Role Phone Alvaro Clark MD Unavailable System, Provider Not In Primary Care Provider Un available Ky Torres MD Unavailable [phone] Reason for Visit * Reason Comments Chemotherapy C1D1 MVAC * Treatment and Therapy Plans (Routine) - [...] Torres MD [address] [facility] [address] [place] [address] Rh Cancer Infus [facility] [place] [address] [address] [place] [address] Referral ID Status Reason Start Date Expiration Date V isits Requested Visits Authorized [id number] Authorized 09/06/2023 03/26/2024 100 1 Encounter Details Date Type Department Care Team (Late st Contact Info) Description 09/29/2023 8:00 AM CDT Infusion Therapy Visit [facility] [place] [address] [address] [place] [address] Ky Torres MD 420 [facility] [address] [place] [address] Urothelial cancer (H) (Primary Dx) Social History [...] Sign Reading Time Taken Comments Blood Pressure 143/81 09/29/2023 8:10 AM CDT Pulse 70 09/29/2023 8:10 AM CDT Temperature 36 ??C (96.8 ??F) 09/29/2023 8:10 AM CDT Respiratory Rate 16 09/29/2023 8:10 AM CDT Oxygen Saturation 96% 09/29/2023 8:10 AM CDT Inhaled Oxygen Concentration - - Weight 90.1 kg (198 lb 11.2 oz) 09/29/2023 8:10 AM CDT Height 170.2 cm (5' 7) 09/29/2023 8:10 AM CDT Body Mass Index 31.12 09/29/2023 8:10 AM CDT documented in this encounter Progress Notes * Gabby Savage RN - 09/29/2023 8:00 AM CDT Infusion Nursing Note: Oleg Richard presents today for C1D1 MVAC+labs. Patient seen by provider today: No Vamp Strap Ironer present during visit today: Not Applicable. Note: Pt orientated to infusion center. Explained treatment schedule for today, questions encouraged and answered. 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 Rogers double check completed with Bessy Dixon RN. Intravenous Access: Labs drawn without difficulty. Implanted Port. Treatment Conditions: Lab Results Component Value Date HGB 13.8 09/29/2023 WBC 6.8 09/29/2023 ANEUTAUTO 4.2 09/29/2023 PLT 212 09/29/2023 Lab Results Component Value Date NA 140 09/29/2023 POTASSIUM 4.1 09/29/2023 MAG 2.1 09/29/2023 CR 0.78 09/29/2023 JUANY 8.9 09/29/2023 BILITOTAL 0.6 09/29/2023 ALBUMIN 4.2 09/29/2023 ALT 16 09/29/2023 AST 23 09/29/2023 Results reviewed, labs MET treatment parameters, ok to proceed with treatment. ECHO/MUGA completed 09/24/23- The left ventricle is normal in size. Left ventricular systolic function is normal. Biplane LVEF is 69%. Normal left ventricular wall motion Post Infusion Assessment: Patient tolerated infusion without incident. Blood return noted pre and post infusion. Blood return noted during administration every 5 cc. Site patent and intact, free from redness, edema or discomfort. No evidence of extravasations. Access discontinued per protocol. ONPRO Was placed on patient's: back of left arm. Was placed at 12:54 PM Podpal used: Yes ONPRO injector device Lot number: [id number] Patient education included: what patient can expect after application, what colored lights mean on the device, when to remove device, when and where to call with questions or issues, all patients questions answered, and that Neulasta administration will occur at approx 4:00 pm on 09/30/23. Patient tolerated administration well. Discharge Plan: Discharge instructions reviewed with: Patient and mom, Ricki. Patient and/or family verbalized understanding of discharge instructions and all questions answered. AVS to patient via Med.lyT. Patient will return 10/12/23 for next appointment. Patient discharged in stable condition accompanied by: mother. Departure Mode: Ambulatory. Gabby Savage RN * [facility] - 09/29/2023 8:00 AM CDT Pharmacy Note: Antiemetic I discussed anti-emetics with Oleg and his including the dose, frequency and side effects. Hewas told to be proactive in treating nausea and to use another antiemetic in 1 hour if the first antiemetic didn't work. Patient should call if what he has at home isn't working as we can usually make an adjustment in the antiemetic regimen. He was given written information with the above instructions and all questions were answered. He verbalized understanding with the teach-back method. He was told to call the clinic and ask for the pharmacist if he should have any further questions. Mario Alberto [facility], Pharm.D., OP Electronically signed by [facility] at 09/29/2023 2:34 PM CDT documented in this encounter Plan of Treatment Upcoming Encounters Date Type Department Care Team (Late st Contact Info) Description 01/01/2024 9:45 AM CDT Office Visit [address] [place] [phone] Alvaro Clark MD 420 [facility] [address] [place], [place] [address] 02/26/2024 7:45 AM CDT Lab [address] [place] [phone] Ky Torres MD 420 [facility] [address] [place] [address] 02/26/2024 8:40 AM CDT Appointment [facility] Imaging [address] [facility] [address] [place] [address] Yessica Mcleod PA-C [address] [place], [place] [phone] 03/04/2024 8:00 AM CDT Oncology Visit [address] [place] [phone] Ky Torres MD [address] [address] documented as of this encounter Procedures Procedure Name Priority Date/Time Associated Diagnosis Comments CBC WITH PLATELETS AND DIFFERENTIAL Routine 09/29/2023 8:14 AM CDT Urothelial cancer (H) CBC WITH PLATELETS & DIFFERENTIAL Routine 09/29/2023 8:14 AM CDT Urothelial cancer (H) MAGNESIUM Routine 09/29/2023 8:14 AM CDT Urothelial cancer (H) COMPREHENSIVE METABOLIC PANEL Routine 09/29/2023 8:14 AM CDT Urothelial cancer (H) documented in this encounter Results * CBC with platelets and differential (09/29/2023 8:14 AM CDT) WBC Count 6.8 4.0 - 11.0 10e3/uL 09/29/2023 8:29 AM CDT [facility] RBC Count 4.88 4.40 - 5.90 10e6/uL 09/29/2023 8:29 AM CDT [facility] Hemoglobin 13.8 13.3 - 17.7 g/dL 09/29/2023 8:29 AM CDT [facility] Hematocrit 41.9 40.0 - 53.0 % 09/29/2023 8:29 AM CDT [facility] MCV 86 78 - 100 fL 09/29/2023 8:29 AM CDT [facility] MCH 28.3 26.5 - 33.0 pg 09/29/2023 8:29 AM CDT [facility] MCHC 32.9 31.5 - 36.5 g/dL 09/29/2023 8:29 AM CDT [facility] RDW 12.4 10.0 - 15.0 % 09/29/2023 8:29 AM CDT [facility] Platelet Count 212 150 - 450 10e3/uL 09/29/2023 8:29 AM CDT [facility] % Neutrophils 62 % 09/29/2023 8:29 AM CDT [facility] % Lymphocytes 22 % 09/29/2023 8:29 AM CDT [facility] % Monocytes 9 % 09/29/2023 8:29 AM CDT [facility] % Eosinophils 6 % 09/29/2023 8:29 AM CDT [facility] % Basophils 1 % 09/29/2023 8:29 AM CDT [facility] % Immature Granulocytes 0 % 09/29/2023 8:29 AM CDT [facility] NRBCs per 100 WBC 0 <1 /100 024 8:29 AM CDT [facility] Absolute Neutrophils 4.2 1.6 - 8.3 10e3/uL 09/29/2023 8:29 AM CDT [facility] Absolute Lymphocytes 1.5 0.8 - 5.3 10e3/uL 09/29/2023 8:29 AM CDT [facility] Absolute Monocytes 0.6 0.0 - 1.3 10e3/uL 09/29/2023 8:29 AM CDT [facility] Absolute Eosinophils 0.4 0.0 - 0.7 10e3/uL 09/29/2023 8:29 AM CDT [facility] Absolute Basophils 0.1 0.0 - 0.2 10e3/uL 09/29/2023 8:29 AM CDT [facility] Absolute Immature Granulocytes 0.0 <=0.4 10e3/uL 09/29/2023 8:29 AM CDT [facility] Absolute NRBCs 0.0 10e3/uL 09/29/2023 8:29 AM CDT [facility] Blood (Portacath) IVAD (Port) / Unknown 09/29/2023 8:14 AM CDT 09/29/2023 8:25 AM CDT Ky Torres MD LAB - BLOOD ORDERA BLES [facility] [address] Lab (1st floor, no room number) [place] [address], [facility] * Magnesium (09/29/2023 8:14 AM CDT) Magnesium 2.1 1.7 - 2.3 mg/dL 09/29/2023 8:50 AM CDT [facility] Blood (Portacath) IVAD (Port) / Unknown 09/29/2023 8:14 AM CDT 09/29/2023 8:25 AM CDT Ky Torres MD LAB - BLOOD ORDERA BLES [facility] [address] Lab (1st floor, no room number) [place] [address], [facility] * (ABNORMAL) Comprehensive metabolic panel (09/29/2023 8:14 AM CDT) [facility] Sodium 140 135 - 145 mmol/L 09/29/2023 8:50 AM CDT LABORATORY Comment:Reference intervals for this test were updated on 02/24/2023 to more accurately reflect our healthy population. There may be differences in the flagging of prior results with similar values performed with this method. Interpretation of those prior results can be made in the context of the updated reference intervals. Potassium 4.1 3.4 - 5.3 mmol/L 09/29/2023 8:50 AM CDT LABORATORY Carbon Dioxide (CO2) 26 22 - 29 mmol/L 09/29/2023 8:50 AM CDT LABORATORY Anion Gap 11 7 - 15 mmol/L 09/29/2023 8:50 AM CDT LABORATORY Urea Nitrogen 11.7 8.0 - 23.0 mg/dL 09/29/2023 8:50 AM CDT LABORATORY Creatinine 0.78 0.67 - 1.17 mg/dL 09/29/2023 8:50 AM CDT LABORATORY GFR Estimate >90 >60 mL/min/1. 73m2 09/29/2023 8:50 AM CDT LABORATORY Calcium 8.9 8.8 - 10.2 mg/dL 09/29/2023 8:50 AM CDT LABORATORY Chloride 103 98 - 107 mmol/L 09/29/2023 8:50 AM CDT LABORATORY Glucose 100(H) 70 - 99 mg/dL 09/29/2023 8:50 AM CDT LABORATORY Alkaline Phosphatase 82 40 - 150 U/L 09/29/2023 8:50 AM CDT LABORATORY Comment:Reference intervals for this test were updated on 04/14/2023 to more accurately reflect our healthy population. There may be differences in the flagging of prior results with similar values performed with this method. Interpretation of those prior results can be made in the context of the updated reference intervals. AST 23 0 - 45 U/L 09/29/2023 8:50 AM CDT [facility] Comment:Reference intervals for this test were updated on 11/10/2022 to more accurately reflect our healthy population. There may be differences in the flagging of prior results with similar values performed with this method. Interpretation of those prior results can be made in the context of the updated reference intervals. ALT 16 0 - 70 U/L 09/29/2023 8:50 AM CDT [facility] Comment:Reference intervals for this test were updated on 11/10/2022 to more accurately reflect our healthy population. There may be differences in the flagging of prior results with similar values performed with this method. Interpretation of those prior results can be made in the context of the updated reference intervals. Protein Total 7.0 6.4 - 8.3 g/dL 09/29/2023 8:50 AM CDT [facility] Albumin 4.2 3.5 - 5.2 g/dL 09/29/2023 8:50 AM CDT [facility] Bilirubin Total 0.6 <=1.2 mg/dL 09/29/2023 8:50 AM CDT [facility] Blood (Portacath) IVAD (Port) / Unknown 09/29/2023 8:14 AM CDT 09/29/2023 8:25 AM CDT Ky Torres MD LAB - BLOOD ORDERA BLES [facility] [address] [facility] Lab (1st floor, no room number) [place] [address], [facility] documented in this encounter Visit Diagnoses Diagnosis Urothelial cancer [...] mL infusion 140 mg, Intravenous, ONCE, On Thu09/29/23 at 1000, For 1 dose, Administer over 2 Hours, If combined with Mannitol, 0.2 micron filter required. Dose changed from 144 mg to 140 mg per rounding policy. Change within 10%. (dosed at 70mg/m2. Tx Plan 2.05) John Baird PharmD, OP September 29, 2023 Possible Vesicant or Irritant depending on concentration. See extravasation policy. May require hepatic and/or renal dose or frequency adjustments. See reference link for guidelines. If this chemotherapy plan contains a taxane (paclitaxel, paclitaxel-protein bound, docetaxel, or cabazitaxel) on the same day, administer this tazlina agent after the taxane. $New Bag 09/29/2023 11:05 AM CDT 140 mg 625 mL/hr DOXOrubicin (ADRIAMYCIN) injection 60 mg 60 mg (rounded from 61.5 mg = 30 mg/m2 ? 2.05 m2 Treatment Plan BSA from Recorded weight), Intravenous Push, ONCE, On Thu09/29/23 at 0945, For 1 dose, Administer over 5-10 Minutes, Protect from light. Vesicant. May require hepatic and/or renal dose or frequency adjustments. See reference link for guidelines. $Given 09/29/2023 10:52 AM CDT 60 mg fosaprepitant (EMEND) 150 mg, dexAMETHasone (DECADRON) 12 mg in sodium chloride 0.9 % 276.2 mL intermittent infusion Intravenous, Administer over 20 Minutes, ONCE, On Thu09/29/23 at 0900, For 1 dose, Give 30 mins before treatment. $New Bag 09/29/2023 9:22 AM CDT 828.6 mL/hr heparin 100 unit/mL injection 5 mL 5 mL, Intracatheter, ONCE PRN, To de-access CVC Impanted port or lock each lumen, Starting on Thu09/29/23 at 0804, PORT: to de-access, instill 5 mL before PORT needle is removed and every 28 days. Apheresis: only for use when patient is NOT under care of apheresis services; after a 10 mL NS flush, lock each lumen of the catheter with 5 mL. $Given 09/29/2023 2:20 PM CDT 5 mLs methotrexate injection 61.5 mg 61.5 mg (30 mg/m2 ? 2.05 m2 Treatment Plan BSA from Recorded weight), Intravenous Push, ONCE, Administer over 2-3 Minutes, On Thu09/29/23 at 0930, For 1 dose, Protect from light. May require hepatic and/or renal dose or frequency adjustments. See reference link for guidelines. Administering doses with an Equashield system requires an LL-2 adapter. Obtain from pharmacy if not stocked on patient care unit. $Given 09/29/2023 10:29 AM CDT 61.5 mg palonosetron (ALOXI) injection 0.25 mg 0.25 mg, Intravenous, ONCE, On Thu09/29/23 at 0900, For 1 dose, Give 30 mins before treatment. $Given 09/29/2023 9:01 AM CDT 0.25 mg pegfilgrastim (NEULASTA Onpro Kit) On-body injector 6 mg 6 mg, Subcutaneous, ONCE, On Thu09/29/23 at 0900, For 1 dose, Attention: Use this order for Neulasta Onpro - on-body injector OR use the clinic administered Neulasta (in the next Day below). Do not use both orders. For prevention of chemotherapy induced neutropenia. $Given 09/29/2023 12:54 PM CDT 6 mg Left Arm sodium chloride 0.9 % 1,000 mL with potassium chloride 20 mEq, magnesium sulfate 2 g infusion 1,000 mL, at 500 mL/hr, Intravenous, ONCE, 1 dose, On Thu09/29/23 at 1200, Post-CISplatin. Central line: administer over 1 hour. Peripheral line: administer over 2 hours. (Give to counteract the known toxicity of Cisplatin) $New Bag 09/29/2023 1:12 PM CDT 500 mL/hr sodium chloride 0.9% BOLUS 1,000 mL Intravenous, 1,000 mL, ONCE, at 1,000 mL/hr, Administer over 1 Hours, On Thu09/29/23 at 0900, For 1 dose, Pre-CISplatin. Start 30-60 minutes prior to chemo. (Give to counteract the known toxicity of Cisplatin) $New Bag 09/29/2023 8:59 AM CDT 1,000 mLs 1000 mL/hr vinBLAStine (VELBAN) 6.2 mg in sodium chloride 0.9 % 33.7 mL infusion 6.2 mg (rounded from 6.15 mg = 3 mg/m2 ? 2.05 m2 Treatment Plan BSA from Recorded weight), Intravenous, ONCE, On Thu09/29/23 at 0930, For 1 dose, [place] hang. For Intravenous Use Only. Fatal If Given By Other Routes. Vesicant. May require hepatic and/or renal dose or frequency adjustments. See reference link for guidelines. $New Bag 09/29/2023 10:36 AM CDT 6.2 mg documented in this encounter Care Teams Hand Packer Relationship Specialty Start Date End Date System, Provider Not In PCP - General Clinic 08/13/23 12/21/23 Alvaro Clark MD 420 [facility] [address] [place] [address] Assigned Surgical Provider 07/24/23 Ky Torres MD 420 [facility] [address] [place] [address] Assigned Cancer Care Provider 09/22/23 10/21/23 documented as of this encounter
--- OUTSIDE RECORDS SUMMARY | 2023-12-26 23:08 | XMS_ITS | Encounter Summary ---
Author Organization [facility] Address [address] [place] [address] Care Team Providers Care Foundry Helper Name Role Phone Alvaro Clark MD Unavailable System, Provider Not In Primary Care Provider Un available Ky Torres MD Unavailable [phone] Reason for Referral * Diagnostic Imaging PET (Routine) - Pending Review Specialty Diagnoses / Procedures Referred By Contac t Referred To Contact Radiology. 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) Procedures PET Oncology (Eyes to Thighs) Ky Torres MD [address] [place] [address] Referral ID Status Reason Start Date Expiration Date V isits Requested Visits Authorized [id number] Pending Review 10/20/2023 10/19/2024 1 1 Encounter Details Date Type Department Care Team (Late st Contact Info) Description 10/20/2023 Orders Only [facility] - Cancer Care Service Line [address] [place] [phone] Ky Torres MD [address] [place] [address] Urothelial cancer (H) (Primary Dx); Malignant [...] Description 01/01/2024 9:45 AM CDT Office Visit [address] [facility] [place] [address] Alvaro Clark MD 420 [facility] [address] [place], [place] [address] 02/26/2024 7:45 AM CDT Lab [address] [place] [address] Ky Torres MD [address] [address] 02/26/2024 8:40 AM CDT Appointment [facility] Imaging [address] [facility] [address] [place] [phone] Yessica Mcleod PA-C [address] [place] [address] 03/04/2024 8:00 AM CDT Oncology Visit [address] [place] [phone] Ky Torres MD [address] [id number] documented as of this encounter Results * PET Oncology (Eyes to Thighs) (10/21/2023 [...] and I agree with the findings. ALEAH TOM MD Narrative 10/22/2023 6:27 AM CDT Combined [...] abnormal FDG avid lesion. Procedure Note Aleah Tom MD - 10/22/2023 Combined Report of: PET [...] and I agree with the findings. 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
--- OUTSIDE RECORDS SUMMARY | 2023-12-26 23:08 | XMS_ITS | Encounter Summary ---
Author Organization [facility] Address [address] [place] [address] Care Team Providers Care Dry Mill Operator Name Role Phone Alvaro Clark MD Unavailable System, Provider Not In Primary Care Provider Un available Ky Torres MD Unavailable [phone] Encounter Details Date Type Department Care Team (Late st Contact Info) Description 10/07/[address] [place] [address] [facility] [place] [address] Ky Torres MD 420 [facility] [address] [place] [address] Social History Tobacco Use Types [...] encounter Miscellaneous Notes * Telephone Encounter - Antionette Sandoval RN - 10/07/2023 4:11 PM CDT Oncology Nurse Triage Situation: Oleg reports the following symptoms: constipation Background: History: Oncology History Urothelial cancer (H) 09/06/2023 Initial Diagnosis Urothelial cancer (H) 09/29/2023 - Chemotherapy OP ONC Bladder Cancer - Accelerated Methotrexate / vinBLAStine / DOXOrubicin / CISplatin (A-MVAC) Plan Provider: Ky Torres MD Treatment goal: Curative Line of treatment: Neoadjuvant Treating Provider: Dr. Torres Date of last office visit: 08/13/23 Recent Treatments: 09/29/23: C1D1 MVAC+labs. Assessment: Last bowel movement was a few days ago (not more than 5). States that it was a little more mushy than normal. Passing gas. Denies blood in the stool. Has a small amount bloating. Denies cramping, nausea/vomiting, fevers. Eating and drinking normally. Drinking about five 12 ounce bottles of water per day. Not taking any opioids. Recommendations: Advised patient to take Miralax once per day and Senna 1 tablet twice a day. Informed him that he can increase Senna up to 4 tablets twice a day as needed. Advised him to continue drinking plenty of fluids, exercise regularly, and eat fruits and vegetables. Advised him to call back if medications don't help and he goes 5 days without a bowel movement. Antionette Sandoval reference test clerk Nurse Advisor [facility] documented in this encounter Plan of Treatment Upcoming Encounters Date Type Department Care Team (Late st Contact Info) Description 01/01/2024 9:45 AM CDT Office Visit [place] [address] [place] [place] [facility] [place] [phone] Alvaro Clark MD 420 [facility] [address] [place], [place] [phone] 02/26/2024 7:45 AM CDT Lab [place] [address] [place] [place] [address] Ky Torres MD 420 [facility] [address] [place], [place] [address] 02/26/2024 8:40 AM CDT Appointment [facility] Care Center Imaging [address] [place] [phone] Yessica Mcleod PA-C [address] [place] [address] 03/04/2024 8:00 AM CDT Oncology Visit [facility] [address] [place] [facility] [place] [phone] Ky Torres MD 420 [facility] [address] [place], [place] [phone] documented as of this encounter Visit Diagnoses Not on filedocumented in this encounter Care Teams Dry Mill Operator Relationship Specialty Start Date End Date System, Provider Not In PCP - General Clinic 08/13/23 12/21/23 Alvaro Clark MD 420 [facility] [address] [place], [place] [phone] Assigned Surgical Provider 07/24/23 Ky Torres MD 420 [facility] [address] [place] [address] Assigned Cancer Care Provider 09/22/23 10/21/23 documented as of this encounter
--- OUTSIDE RECORDS SUMMARY | 2023-12-26 23:08 | XMS_ITS | Encounter Summary ---
Author Organization [place] Address [address] [place] [address] Care Team Providers Care Wheel Installer Name Role Phone Alvaro Clark MD Unavailable System, Provider Not In Primary Care Provider Un available Ky Torres MD Unavailable [phone] Reason for Visit * Reason Onset Date Comments Symptoms 09/29/2023 Encounter Details Date Type Department Care Team (Late st Contact Info) Description 09/29/[address] [facility] [place] [phone] Ky Torres MD 420 [facility] [address] [place] [address] Symptoms Social History Tobacco Use Types Packs/Day Years [...] encounter Miscellaneous Notes * Telephone Encounter - Jami Oseguera RN - 09/29/2023 3:42 PM CDT Oncology Nurse Triage Situation: Oleg reporting the following symptoms: headache Background: Treating Provider: Dr Torres Date of last office visit: 08/13/2023 Recent Treatments:C1D1 MVAC+labs today Assessment: Pt is calling. States that he developed a headache about 30 minutes ago on the way home from his infusion appt. Rates pain at 5-6/10. Located near the front of his head. Pt states that he was told bythe infusion team that he may have headaches after his infusion. Pt also states that he is very sensitive to the sun. States that the sun was bright on the way home and he was squinting and this has also caused headaches in the past. Denies any nausea/vomiting, visual changes, dizziness, chest pain, shortness of breath, weakness, or other urgent symptoms. Pt is wondering if he can take excedrin for his headaches? Recommendations: Advised pt that due to the fact that excedrin contains aspirin, it would be best to avoid excedrin.Reviewed that aspirin and ibuprofen can both increase risk for bleeding, and these medications are best avoided while on chemo due to increased risk for thrombocytopenia from chemo. While an occasional dose is likely OK, he should not be taking these medications on a regular basis. Advised pt that he can take tylenol, up to 1000 mg three times daily. Pt should not exceed 3000 mg per 24 hour period. Also encouraged pt to push fluids. Reviewed emergent symptoms that would warrant evaluation in ER. Patient verbalized understanding and agreement with plan. Patient was instructed to call the clinicwith any questions, concerns, or worsening symptoms. Will route update to care team. Jami Oseguera RN on 09/29/2023 at 4:10 PM documented in this encounter Plan of Treatment Upcoming Encounters Date Type Department Care Team (Late st Contact Info) Description 01/01/2024 9:45 AM CDT Office Visit [facility] [address] [facility] [place] [place] [phone] Alvaro Clark MD [address] [address] 02/26/2024 7:45 AM CDT Lab [facility] [address] [address] [place] [address] Ky Torres MD 420 [facility] [address] [place] [address] 02/26/2024 8:40 AM CDT Appointment [facility] Imaging [address] [place] [phone] Yessica Mcleod, PAJose Luis [address]09 [place] [address] 03/04/2024 8:00 AM CDT Oncology Visit [facility] [address] [facility] [place] [address] Ky Torres MD [address] [address] documented as of this encounter Visit Diagnoses Not on filedocumented in this encounter Care Teams Wheel Installer Relationship Specialty Start Date End Date System, Provider Not In PCP - General Clinic 08/13/23 12/21/23 Alvaro Clark MD [address] [place] [address] [address] [place] [address] Assigned Surgical Provider 07/24/23 Ky Torres MD 420 [facility] [place] [address] [place] [address] Assigned Cancer Care Provider 09/22/23 10/21/23 documented as of this encounter
--- OUTSIDE RECORDS SUMMARY | 2023-12-26 23:08 | XMS_ITS | Encounter Summary ---
Author Organization [place] Address [address] [place] [address] Care Team Providers Care Enforcement Manager Name Role Phone Alvaro Clark MD Unavailable System, Provider Not In Primary Care Provider Un available Ky Torres MD Unavailable [phone] Reason for Visit * Reason Comments Port Draw CBC, CMP, Mag Encounter Details Date Type Department Care Team (Late st Contact Info) Description 10/12/2023 12:30 PM CDT Lab [facility] [address] [place] [address] [place] [phone] Yessica Mcleod, RONALD [address] [place] [address] Urothelial cancer (H) (Primary Dx) Social History [...] on file documented as of this encounter Progress Notes * Sarita Villaseñor, RN - 10/12/2023 12:30 PM CDT Nursing Note: Oleg Richard presents today for Port labs. Patient seen by provider today: Yes: Sixto Whalen PLUCK TRIMMER this afternoon Academic Associate present during visit today: Not Applicable. Note: N/A. Intravenous Access: Labs drawn without difficulty. Implanted Port. Discharge Plan: Patient was sent home for PLUCK TRIMMER phone appointment; will return for infusion tomorrow. Sarita Villaseñor, RN documented in this encounter Plan of Treatment Upcoming Encounters Date Type Department Care Team (Late st Contact Info) Description 01/01/2024 9:45 AM CDT Office Visit [address] 200 [facility] [address] Alvaro Clark MD [address] [address] 02/26/2024 7:45 AM CDT Lab [address] [place] [address] Ky Torres MD [address] [address] 02/26/2024 8:40 AM CDT Appointment [facility] Imaging [address] [facility] [address] [place] [phone] Yessica Mcleod PA-C [address] [place] [address] 03/04/2024 8:00 AM CDT Oncology Visit [address] 200 [place] [address] Ky Torres MD [address] [address] documented as of this encounter Procedures Procedure Name Priority Date/Time Associated Diagnosis Comments CBC WITH PLATELETS AND DIFFERENTIAL Routine 10/12/2023 11:59 AM CDT Urothelial cancer (H) CBC WITH PLATELETS & DIFFERENTIAL Routine 10/12/2023 11:59 AM CDT Urothelial cancer (H) MAGNESIUM Routine 10/12/2023 11:59 AM CDT Urothelial cancer (H) DIFFERENTIAL Routine 10/12/2023 11:59 AM CDT Urothelial cancer (H) COMPREHENSIVE METABOLIC PANEL Routine 10/12/2023 11:59 AM CDT Urothelial cancer (H) documented in this encounter Results * (ABNORMAL) Manual Differential (10/12/2023 11:59 AM CDT) % Neutrophils 71 % 10/12/2023 12:41 PM CDT [facility] % Lymphocytes 15 % 10/12/2023 12:41 PM CDT [facility] % Monocytes 5 % 10/12/2023 12:41 PM CDT [facility] % Eosinophils 5 % 10/12/2023 12:41 PM CDT [facility] % Basophils 0 % 10/12/2023 12:41 PM CDT [facility] % Metamyelocytes 4 % 10/12/19 24 12:41 PM CDT [facility] Absolute Neutrophils 9.3(H) 1.6 - 8.3 10e3/uL 10/12/2023 12:41 PM CDT [facility] Absolute Lymphocytes 2.0 0.8 - 5.3 10e3/uL 10/12/2023 12:41 PM CDT [facility] Absolute Monocytes 0.7 0.0 - 1.3 10e3/uL 10/12/2023 12:41 PM CDT [facility] Absolute Eosinophils 0.7 0.0 - 0.7 10e3/uL 10/12/2023 12:41 PM CDT [facility] Absolute Basophils 0.0 0.0 - 0.2 10e3/uL 10/12/2023 12:41 PM CDT [facility] Absolute Metamyelocytes 0.5(H) <=0.0 10e3/uL 10/12/2023 12:41 PM CDT [facility] RBC Morphology Confirmed RBC Indices 10/12/2023 12:41 PM CDT [facility] Platelet Assessment Automated Count Confirmed. Giant platelets are present.(A) Automated Count Confirmed. Platelet morphology is normal. 10/12/2023 12:41 PM CDT [facility] Toxic Neutrophils Present(A) None Seen 024 12:41 PM CDT [facility] Blood VENOUS LINE / Unknown IVAD (Port) / Unknown 10/12/2023 11:59 AM CDT 10/12/2023 12:09 PM CDT Sixto Whalen APRN BINDERY PRODUCTION MANAGER LAB - BLOOD ORDERABL ES [facility] Lab [address] [facility] Lab (1st floor, no room number) [place] [address], [facility] * (ABNORMAL) CBC with platelets and differential (10/12/2023 11:59 AM CDT) WBC Count 13.1(H) 4.0 - 11.0 10e3/uL 10/12/2023 12:41 PM CDT [facility] RBC Count 4.68 4.40 - 5.90 10e6/uL 10/12/2023 12:41 PM CDT [facility] Hemoglobin 13.1(L) 13.3 - 17.7 g/dL 10/12/2023 12:41 PM CDT [facility] Hematocrit 40.9 40.0 - 53.0 % 10/12/2023 12:41 PM CDT [facility] MCV 87 78 - 100 fL 10/12/2023 12:41 PM CDT [facility] MCH 28.0 26.5 - 33.0 pg 10/12/2023 12:41 PM CDT [facility] MCHC 32.0 31.5 - 36.5 g/dL 10/12/2023 12:41 PM CDT [facility] RDW 12.9 10.0 - 15.0 % 10/12/2023 12:41 PM CDT [facility] Platelet Count 183 150 - 450 10e3/uL 10/12/2023 12:41 PM CDT [facility] % Neutrophils 10/12/2023 12:41 PM CDT [facility] % Lymphocytes 10/12/2023 12:41 PM CDT [facility] % Monocytes 10/12/2023 12:41 PM CDT [facility] % Eosinophils 10/12/2023 12:41 PM CDT [facility] % Basophils 10/12/2023 12:41 PM CDT [facility] % Immature Granulocytes 10/12/2023 12:41 PM CDT [facility] NRBCs per 100 WBC 0 <1 /100 024 12:41 PM CDT [facility] Absolute Neutrophils 10/12/2023 12:41 PM CDT [facility] Absolute Lymphocytes 10/12/2023 12:41 PM CDT [facility] Absolute Monocytes 10/12/2023 12:41 PM CDT [facility] Absolute Eosinophils 10/12/2023 12:41 PM CDT [facility] Absolute Basophils 10/12/2023 12:41 PM CDT [facility] Absolute Immature Granulocytes 10/12/2023 12:41 PM CDT [facility] Absolute NRBCs 0.0 10e3/uL 10/12/2023 12:41 PM CDT [facility] Blood VENOUS LINE / Unknown IVAD (Port) / Unknown 10/12/2023 11:59 AM CDT 10/12/2023 12:09 PM CDT Sixto Whalen APRN, CNP LAB - BLOOD ORDERABL ES [facility] Lab [address] Lab (1st floor, no room number) [place] [address] * Magnesium (10/12/2023 11:59 AM CDT) Magnesium 1.9 1.7 - 2.3 mg/dL 10/12/2023 12:36 PM CDT [facility] Blood VENOUS LINE / Unknown IVAD (Port) / Unknown 10/12/2023 11:59 AM CDT 10/12/2023 12:09 PM CDT Sixto Whalen APRN, CNP LAB - BLOOD ORDERABL ES [facility] Lab [address] [facility] Lab (1st floor, no room number) [place] [address], [facility] * (ABNORMAL) Comprehensive metabolic panel (10/12/2023 11:59 AM CDT) Sodium 142 135 - 145 mmol/L 10/12/2023 12:36 PM CDT LABORATORY Comment:Reference intervals for this test were updated on 02/24/2023 to more accurately reflect our healthy population. There may be differences in the flagging of prior results with similar values performed with this method. Interpretation of those prior results can be made in the context of the updated reference intervals. Potassium 4.1 3.4 - 5.3 mmol/L 10/12/2023 12:36 PM CDT LABORATORY Carbon Dioxide (CO2) 27 22 - 29 mmol/L 10/12/2023 12:36 PM CDT LABORATORY Anion Gap 11 7 - 15 mmol/L 10/12/2023 12:36 PM CDT LABORATORY Urea Nitrogen 12.8 8.0 - 23.0 mg/dL 10/12/2023 12:36 PM CDT LABORATORY Creatinine 0.72 0.67 - 1.17 mg/dL 10/12/2023 12:36 PM CDT LABORATORY GFR Estimate >90 >60 mL/min/1. 73m2 10/12/2023 12:36 PM CDT LABORATORY Calcium 8.6(L) 8.8 - 10.2 mg/dL 10/12/2023 12:36 PM CDT LABORATORY Chloride 104 98 - 107 mmol/L 10/12/2023 12:36 PM CDT LABORATORY Glucose 82 70 - 99 mg/dL 10/12/2023 12:36 PM CDT LABORATORY Alkaline Phosphatase 114 40 - 150 U/L 10/12/2023 12:36 PM CDT LABORATORY Comment:Reference intervals for this test were updated on 04/14/2023 to more accurately reflect our healthy population. There may be differences in the flagging of prior results with similar values performed with this method. Interpretation of those prior results can be made in the context of the updated reference intervals. AST 22 0 - 45 U/L 10/12/2023 12:36 PM CDT LABORATORY Comment:Reference intervals for this test were updated on 11/10/2022 to more accurately reflect our healthy population. There may be differences in the flagging of prior results with similar values performed with this method. Interpretation of those prior results can be made in the context of the updated reference intervals. ALT 19 0 - 70 U/L 10/12/2023 12:36 PM CDT [facility] Comment:Reference intervals for this test were updated on 11/10/2022 to more accurately reflect our healthy population. There may be differences in the flagging of prior results with similar values performed with this method. Interpretation of those prior results can be made in the context of the updated reference intervals. Protein Total 6.5 6.4 - 8.3 g/dL 10/12/2023 12:36 PM CDT [facility] Albumin 3.9 3.5 - 5.2 g/dL 10/12/2023 12:36 PM CDT [facility] Bilirubin Total 0.2 <=1.2 mg/dL 10/12/2023 12:36 PM CDT [facility] Blood VENOUS LINE / Unknown IVAD (Port) / Unknown 10/12/2023 11:59 AM CDT 10/12/2023 12:09 PM CDT Sixto Whalen APRN BINDERY PRODUCTION MANAGER LAB - BLOOD ORDERABL ES [facility] Acute Care Lab [address] [facility] Lab (1st floor, no room number) [place] [address], [facility] documented in this encounter Visit Diagnoses Diagnosis Urothelial cancer (H)- Primary Malignant neoplasm of other specified sites of urinary organs documented in this encounter Administered Medications Inactive Administered Medications - up to 3 most recent administrations Medication Order MAR Action Action Date Dose Rate Site heparin 100 unit/mL injection 500 Units 500 Units, Intracatheter, EVERY 8 HOURS PRN, post meds or blood draw, Starting on 10/12/23 at 1206 $Given 10/12/2023 12:06 PM CDT 500 Units documented in this encounter Care Teams Enforcement Manager Relationship Specialty Start Date End Date System, Provider Not In PCP - General Clinic 08/13/23 12/21/23 Alvaro Clark MD [address] [place] [address] Assigned Surgical Provider 07/24/23 Ky Torres MD [address] [place] [address] 480 [place] [address] Assigned Cancer Care Provider 09/22/23 10/21/23 documented as of this encounter
--- OUTSIDE RECORDS SUMMARY | 2023-12-26 23:08 | XMS_ITS | Encounter Summary ---
Author Organization [facility] Address [address] [place] [address] Care Team Providers Care Solutions Architect Consultant Name Role Phone Alvaro Clark MD Unavailable System, Provider Not In Primary Care Provider Un available Ky Torres MD Unavailable [phone] Reason for Visit * Reason Comments Chemotherapy C2D1 MVAC * Treatment and Therapy Plans (Routine) [...] Torres MD [address] [place] [address] [facility] [address] [place] [address] Rh Cancer Infus [facility] [place] [address] [address] [place] [address] Referral ID Status Reason Start Date Expiration Date V isits Requested Visits Authorized [id number] Authorized 09/06/2023 03/26/2024 100 1 Encounter Details Date Type Department Care Team (Latest Contact Info) Description 10/13/2023 9:30 AM CDT Infusion Therapy Visit [facility] [place] [address] [address] [place] [address] Yessica Mcleod PA-C [address] [place] [address] Urothelial cancer (H) (Primary Dx) Social History [...] Sign Reading Time Taken Comments Blood Pressure 136/72 10/13/2023 9:13 AM CDT Pulse 59 10/13/2023 9:13 AM CDT Temperature 35.9 ??C (96.6 ??F) 10/13/2023 9:13 AM CD T Respiratory Rate 18 10/13/2023 9:13 AM CDT Oxygen Saturation 95% 10/13/2023 9:13 AM CDT Inhaled Oxygen Concentration - - Weight 89.8 kg (197 lb 14.4 oz) 10/13/2023 9:13 AM CDT Height - - Body Mass Index 31 10/12/2023 2:09 PM CDT documented in this encounter Progress Notes * Gabby Savage RN - 10/13/2023 9:30 AM CDT Infusion Nursing Note: Oleg Richard presents today for C2D1 MVAC. Patient seen by provider today: No, virtual visit with STACEY Gardiner yesterday 10/11 Director Of Program Management present during visit today: Not Applicable. Note: Oleg feels well, said last cycle went well, no side effects he has noticed yet. He needs to sisal picker his Decadron prescription after infusion today, he knows to starting taking tomorrow and continue for two days after that. Intravenous Access: Implanted Port. Treatment Conditions: Lab Results Component Value Date HGB 13.1 (L) 10/12/2023 WBC 13.1 (H) 10/12/2023 ANEU 9.3 (H) 10/12/2023 ANEUTAUTO 4.2 09/29/2023 PLT 183 10/12/2023 Lab Results Component Value Date NA 142 10/12/2023 POTASSIUM 4.1 10/12/2023 MAG 1.9 10/12/2023 CR 0.72 10/12/2023 JUANY 8.6 (L) 10/12/2023 BILITOTAL 0.2 10/12/2023 ALBUMIN 3.9 10/12/2023 ALT 19 10/12/2023 AST 22 10/12/2023 Results reviewed, labs MET treatment parameters, ok to proceed with treatment. Post Infusion Assessment: Patient tolerated infusion without incident. Blood return noted pre and post infusion. Blood return noted during administration every 5 cc. Site patent and intact, free from redness, edema or discomfort. No evidence of extravasations. Access discontinued per protocol. ONPRO Was placed on patient's: back of left arm. Was placed at 1250 PM Podpal used: Yes ONPRO injector device Lot number: [id number] Patient education included: what patient can expect after application, what colored lights mean on the device, when to remove device, when and where to call with questions or issues, all patients questions answered, and that Neulasta administration will occur at 1550. Patient tolerated administration well. Discharge Plan: Discharge instructions reviewed with: Patient. Patient and/or family verbalized understanding of discharge instructions and all questions answered. AVS to patient via [employer]. Patient will return 10/27/23 for next appointment. Patient discharged in stable condition accompanied by: self. Departure Mode: Ambulatory. Gabby Savage RN documented in this encounter Plan of Treatment Upcoming Encounters Date Type Department Care Team (Late st Contact Info) Description 01/01/2024 9:45 AM CDT Office Visit [address] [facility] [place] [address] Alvaro Clark MD [address] [facility] [address] [place] [address] 02/26/2024 7:45 AM CDT Lab [facility] [address] [place] [address] Ky Torres MD [address] [address] 02/26/2024 8:40 AM CDT Appointment [facility] Imaging [address] [place] [address] [place] [address] Yessica Mcleod PA-C 9[address] [place] [address] 03/04/2024 8:00 AM CDT Oncology Visit [address] [place] 200 [facility] [place] [address] Ky Torres MD [address] [address] documented as of this encounter Visit Diagnoses [...] sulfate 2 g infusion 1,000 mL, at 500-1,000 mL/hr, Intravenous, ONCE, 1 dose, On Thu10/13/23 at 1230, Post-CISplatin. Central line: administer over 1 hour. Peripheral line: administer over 2 hours. (Give to counteract the known toxicity of Cisplatin) Rate/Dose Change 10/13/2023 1:21 PM CDT 1000 mL/hr $New Bag 10/13/2023 12:43 PM CDT 375 mL/hr CISplatin (PLATINOL) 140 mg, mannitol 25 % 25 g in sodium chloride 0.9 % 1,250 mL infusion 140 mg, Intravenous, ONCE, On Thu10/13/23 at 1030, For 1 dose, Administer over 2 Hours, If combined with Mannitol, 0.2 micron filter required. Dose changed from 144 mg to 140 mg per rounding policy (70 mg/m2, TP BSA 2.05 m2). Change within 10%. Arianna Blankenship, Rashid October 13, 2023 Possible Vesicant or Irritant depending on concentration. See extravasation policy. May require hepatic and/or renal dose or frequency adjustments. See reference link for guidelines. If this chemotherapy plan contains a taxane (paclitaxel, paclitaxel-protein bound, docetaxel, or cabazitaxel) on the same day, administer this [place] agent after the taxane. $New Bag 10/13/2023 11:20 AM CDT 140 mg 625 mL/hr DOXOrubicin (ADRIAMYCIN) injection 60 mg 60 mg (rounded from 61.5 mg = 30 mg/m2 ? 2.05 m2 Treatment Plan BSA from Recorded weight), Intravenous Push, ONCE, On Thu10/13/23 at 1015, For 1 dose, Administer over 5-10 Minutes, Protect from light. Vesicant. May require hepatic and/or renal dose or frequency adjustments. See reference link for guidelines. $Given 10/13/2023 11:12 AM CDT 60 mg fosaprepitant (EMEND) 150 mg, dexAMETHasone (DECADRON) 12 mg in sodium chloride 0.9 % 276.2 mL intermittent infusion Intravenous, Administer over 20 Minutes, ONCE, On Thu10/13/23 at 0930, For 1 dose, Give 30 mins before treatment. $New Bag 10/13/2023 9:39 AM CDT 828.6 mL/hr heparin 100 unit/mL injection 5 mL 5 mL, Intracatheter, ONCE PRN, To de-access CVC Impanted port or lock each lumen, Starting on Thu10/13/23 at 0918, PORT: to de-access, instill 5 mL before PORT needle is removed and every 28 days. Apheresis: only for use when patient is NOT under care of apheresis services; after a 10 mL NS flush, lock each lumen of the catheter with 5 mL. $Given 10/13/2023 2:15 PM CDT 5 mLs methotrexate injection 61.5 mg 61.5 mg (30 mg/m2 ? 2.05 m2 Treatment Plan BSA from Recorded weight), Intravenous Push, ONCE, Administer over 2-3 Minutes, On Thu10/13/23 at 1000, For 1 dose, Protect from light. May require hepatic and/or renal dose or frequency adjustments. See reference link for guidelines. Administering doses with an Equashield system requires an LL-2 adapter. Obtain from pharmacy if not stocked on patient care unit. $Given 10/13/2023 10:55 AM CDT 61.5 mg palonosetron (ALOXI) injection 0.25 mg 0.25 mg, Intravenous, ONCE, On Thu10/13/23 at 0930, For 1 dose, Give 30 mins before treatment. $Given 10/13/2023 9:37 AM CDT 0.25 mg pegfilgrastim (NEULASTA Onpro Kit) On-body injector 6 mg 6 mg, Subcutaneous, ONCE, On Thu10/13/23 at 0930, For 1 dose, Attention: Use this order for Neulasta Onpro - on-body injector OR use the clinic administered Neulasta (in the next Day below). Do not use both orders. For prevention of chemotherapy induced neutropenia. $Given 10/13/2023 12:48 PM CDT 6 mg Left Arm sodium chloride (PF) 0.9% PF flush 3-20 mL 3-20 mL, Intracatheter, EVERY 1 MIN PRN, line flush, post meds or blood draw, Starting on Thu10/13/23 at 0918, PIV: 3 mL after each [...] patency; 20 mL after blood draw. $Given 10/13/2023 9:24 AM CDT 10 mLs sodium chloride 0.9% BOLUS 1,000 mL Intravenous, 1,000 mL, ONCE, at 1,000 mL/hr, Administer over 1 Hours, On Thu10/13/23 at 0930, For 1 dose, Pre-CISplatin. Start 30-60 minutes prior to chemo. (Give to counteract the known toxicity of Cisplatin) $New Bag 10/13/2023 9:23 AM CDT 1,000 mLs 1000 mL/hr vinBLAStine (VELBAN) 6.2 mg in sodium chloride 0.9 % 33.7 mL infusion 6.2 mg (rounded from 6.15 mg = 3 mg/m2 ? 2.05 m2 Treatment Plan BSA from Recorded weight), Intravenous, ONCE, On Thu10/13/23 at 1000, For 1 dose, [place] hang. For Intravenous Use Only. Fatal If Given By Other Routes. Vesicant. May require hepatic and/or renal dose or frequency adjustments. See reference link for guidelines. $New Bag 10/13/2023 11:03 AM CDT 6.2 mg documented in this encounter Care Teams Solutions Architect Consultant Relationship Specialty Start Date End Date System, Provider Not In PCP - General Clinic 08/13/23 12/21/23 Alvaro Clark MD 420 [facility] [address] [place], [place] [address] Assigned Surgical Provider 07/24/23 Ky Torres MD 420 [facility] [address] [place] [address] Assigned Cancer Care Provider 09/22/23 10/21/23 documented as of this encounter
--- OUTSIDE RECORDS SUMMARY | 2023-12-26 23:08 | XMS_ITS | Encounter Summary ---
Author Organization [facility] Address [address] [place] [address] Care Team Providers Care Paper Maker Name Role Phone Alvaro Clark MD Unavailable System, Provider Not In Primary Care Provider Un available Sixto Whalen APRN UTILITY WORKER FILM PROCESSING Unavailable [phone] Encounter Details Date Type Department Care Team (Latest Contact Info) Description 10/27/2023 Travel Social History Tobacco Use Types Packs/Day [...] Description 01/01/2024 9:45 AM CDT Office Visit [place] [address] [place] 200 [facility] [place] [phone] Alvaro Clark MD 420 [facility] 394 [place], [place] 7[address] 02/26/2024 7:45 AM CDT Lab [facility] Medical [place] [address] 200 [place] [phone] Ky Torres MD 420 [facility] 480 [place] [address] 02/26/2024 8:40 AM CDT Appointment [facility] Imaging [address] [place] [phone] Yessica Mcleod PA-C 909 [place], [place] [address] 03/04/2024 8:00 AM CDT Oncology Visit [facility] Cancer [facility] [address] 200 [facility] [place] [phone] Melissa, Ky Acharya MD [address] [address] documented as of this encounter Visit Diagnoses Not on filedocumented in this encounter Care Teams Paper Maker Relationship Specialty Start Date End Date System, Provider Not In PCP - General Clinic 08/13/23 12/21/23 Alvaro Clark MD [address] [place] [address] [id number] Assigned Surgical Provider 07/24/23 Sixto Whalen APRN UTILITY WORKER FILM PROCESSING 9 [place] [address] Assigned Cancer Care Provider 10/22/23 12/21/23 documented as of this encounter
--- OUTSIDE RECORDS SUMMARY | 2023-12-26 23:08 | XMS_ITS | Encounter Summary ---
Author Organization [facility] Address [address] [place] [address] Care Team Providers Care Public Services Assistant Name Role Phone Alvaro Clark MD Unavailable System, Provider Not In Primary Care Provider Un available Sixto Whalen APRN OVERLOCKER Unavailable Reason for Visit * Reason Comments Port Draw Encounter Details Date Type Department Care Team (Late st Contact Info) Description 10/27/2023 12:30 PM CDT Lab [facility] [address] [phone] Yessica Mcleod, PAJannetC 909 [place] [address] Urothelial cancer (H) (Primary Dx) [...] as of this encounter Progress Notes * Ginger Waller, RN - 10/27/2023 12:30 PM CDT Nursing Note: Oleg Richard presents today for Port Labs. Patient to be seen by provider today: Yes: Sixto Whalen NP (virtual visit) Commercial Solar Sales Consultant present during visit today: Not Applicable. Note: N/A. Intravenous Access: Labs drawn without difficulty. Implanted Port. Discharge Plan: Patient was sent to home after appointment. Felix Waller, RN documented in this encounter Plan of Treatment Upcoming Encounters Date Type Department Care Team (Late st Contact Info) Description 01/01/2024 9:45 AM CDT Office Visit [address] 200 [place] [address] Alvaro Clark MD 420 [facility] 394 [place], [place] [address] 02/26/2024 7:45 AM CDT Lab [address] 200 [place] [phone] Ky Torres MD [address] [place] [address] 4[address] 02/26/2024 8:[address] [facility] Center Imaging [address] [facility] [address] [place] [phone] Yessica Mcleod, PAJose Luis 909 [place] [address] 03/04/2024 8:00 AM CDT Oncology Visit [address] 200 [place] [phone] Ky Torres MD [address] [phone] documented as of this encounter Procedures Procedure Name Priority Date/Time Associated Diagnosis Comments CBC WITH PLATELETS AND DIFFERENTIAL Routine 10/27/2023 12:25 PM CDT Urothelial cancer (H) CBC WITH PLATELETS & DIFFERENTIAL Routine 10/27/2023 12:25 PM CDT Urothelial cancer (H) MAGNESIUM Routine 10/27/2023 12:25 PM CDT Urothelial cancer (H) DIFFERENTIAL Routine 10/27/2023 12:25 PM CDT Urothelial cancer (H) COMPREHENSIVE METABOLIC PANEL Routine 10/27/2023 12:25 PM CDT Urothelial cancer (H) documented in this encounter Results * (ABNORMAL) Manual Differential (10/27/2023 12:25 PM CDT) % Neutrophils 76 % 10/27/2023 1:24 PM CDT [facility] % Lymphocytes 8 % 10/27/2023 1:24 PM CDT [facility] % Monocytes 6 % 10/27/2023 1:24 PM CDT [facility] % Eosinophils 1 % 10/27/2023 1:24 PM CDT [facility] % Basophils 1 % 10/27/2023 1:24 PM CDT [facility] % Metamyelocytes 7 % 10/27/19 1:24 PM CDT [facility] % Myelocytes 1 % 10/27/2023 1:24 PM CDT [facility] Absolute Neutrophils 13.6(H) 1.6 - 8.3 10e3/uL 10/27/2023 1:24 PM CDT [facility] Absolute Lymphocytes 1.4 0.8 - 5.3 10e3/uL 10/27/2023 1:24 PM CDT [facility] Absolute Monocytes 1.1 0.0 - 1.3 10e3/uL 10/27/2023 1:24 PM CDT [facility] Absolute Eosinophils 0.2 0.0 - 0.7 10e3/uL 10/27/2023 1:24 PM CDT [facility] Absolute Basophils 0.2 0.0 - 0.2 10e3/uL 10/27/2023 1:24 PM CDT [facility] Absolute Metamyelocytes 1.3(H) <=0.0 10e3/uL 10/27/2023 1:24 PM CDT [facility] Absolute Myelocytes 0.2(H) <=0.0 10e3/uL 10/27/2023 1:24 PM CDT [facility] RBC Morphology Confirmed RBC Indices 10/27/2023 1:24 PM CDT [facility] Platelet Assessment Automated Count Confirmed. Platelet morphology is normal. Automated Count Confirmed. Platelet morphology is normal. 10/27/2023 1:24 PM CDT [facility] Blood BLOOD SPECIMEN / Unknown IVAD (Port) / Unknown 10/27/2023 12:25 PM CDT 10/27/2023 12:48 PM CDT Sixto Whalen APRN OVERLOCKER LAB - BLOOD ORDERABL ES [facility] Acute Care Lab [address] [facility] Lab (1st floor, no room number) [place] [address], [facility] * (ABNORMAL) CBC with platelets and differential (10/27/2023 12:25 PM CDT) WBC Count 17.9(H) 4.0 - 11.0 10e3/uL 10/27/2023 1:24 PM CDT [facility] RBC Count 4.47 4.40 - 5.90 10e6/uL 10/27/2023 1:24 PM CDT [facility] Hemoglobin 12.8(L) 13.3 - 17.7 g/dL 10/27/2023 1:24 PM CDT [facility] Hematocrit 38.7(L) 40.0 - 53.0 % 10/27/2023 1:24 PM CDT [facility] MCV 87 78 - 100 fL 10/27/2023 1:24 PM CDT [facility] MCH 28.6 26.5 - 33.0 pg 10/27/2023 1:24 PM CDT [facility] MCHC 33.1 31.5 - 36.5 g/dL 10/27/2023 1:24 PM CDT [facility] RDW 13.3 10.0 - 15.0 % 10/27/2023 1:24 PM CDT [facility] Platelet Count 194 150 - 450 10e3/uL 10/27/2023 1:24 PM CDT [facility] % Neutrophils 10/27/2023 1:24 PM CDT [facility] % Lymphocytes 10/27/2023 1:24 PM CDT [facility] % Monocytes 10/27/2023 1:24 PM CDT [facility] % Eosinophils 10/27/2023 1:24 PM CDT [facility] % Basophils 10/27/2023 1:24 PM CDT [facility] % Immature Granulocytes 10/27/2023 1:24 PM CDT [facility] NRBCs per 100 WBC 0 <1 /100 024 1:24 PM CDT [facility] Absolute Neutrophils 10/27/2023 1:24 PM CDT [facility] Absolute Lymphocytes 10/27/2023 1:24 PM CDT [facility] Absolute Monocytes 10/27/2023 1:24 PM CDT [facility] Absolute Eosinophils 10/27/2023 1:24 PM CDT [facility] Absolute Basophils 10/27/2023 1:24 PM CDT [facility] Absolute Immature Granulocytes 10/27/2023 1:24 PM CDT [facility] Absolute NRBCs 0.0 10e3/uL 10/27/2023 1:24 PM CDT [facility] Blood BLOOD SPECIMEN / Unknown IVAD (Port) / Unknown 10/27/2023 12:25 PM CDT 10/27/2023 12:48 PM CDT Sixto Whalen APRN, CNP LAB - BLOOD ORDERABL [facility] Acute Care Lab [address] Lab (1st floor, no room number) [place] [address] * Magnesium (10/27/2023 12:25 PM CDT) Magnesium 1.9 1.7 - 2.3 mg/dL 10/27/2023 1:11 PM CDT [facility] Blood BLOOD SPECIMEN / Unknown IVAD (Port) / Unknown 10/27/2023 12:25 PM CDT 10/27/2023 12:48 PM CDT Sixto Whalen APRN, CNP LAB - BLOOD ORDERABL ES [facility] Acute Care Lab [address] [facility] Lab (1st floor, no room number) [place] [address], [facility] * (ABNORMAL) Comprehensive metabolic panel (10/27/2023 12:25 PM CDT) Sodium 140 135 - 145 mmol/L 10/27/2023 1:11 PM CDT LABORATORY Comment:Reference intervals for this test were updated on 02/24/2023 to more accurately reflect our healthy population. There may be differences in the flagging of prior results with similar values performed with this method. Interpretation of those prior results can be made in the context of the updated reference intervals. Potassium 4.4 3.4 - 5.3 mmol/L 10/27/2023 1:11 PM CDT LABORATORY Carbon Dioxide (CO2) 27 22 - 29 mmol/L 10/27/2023 1:11 PM CDT [facility] Anion Gap 11 7 - 15 mmol/L 10/27/2023 1:11 PM CDT [facility] Urea Nitrogen 12.6 8.0 - 23.0 mg/dL 10/27/2023 1:11 PM CDT [facility] Creatinine 0.76 0.67 - 1.17 mg/dL 10/27/2023 1:11 PM CDT [facility] GFR Estimate >90 >60 mL/min/1. 73m2 10/27/2023 1:11 PM CDT [facility] Calcium 8.7(L) 8.8 - 10.2 mg/dL 10/27/2023 1:11 PM CDT [facility] Chloride 102 98 - 107 mmol/L 10/27/2023 1:11 PM CDT [facility] Glucose 85 70 - 99 mg/dL 10/27/2023 1:11 PM CDT [facility] Alkaline Phosphatase 136 40 - 150 U/L 10/27/2023 1:11 PM CDT [facility] AST 20 0 - 45 U/L 10/27/2023 1:11 PM CDT [facility] Comment:Reference intervals for this test were updated on 11/10/2022 to more accurately reflect our healthy population. There may be differences in the flagging of prior results with similar values performed with this method. Interpretation of those prior results can be made in the context of the updated reference intervals. ALT 21 0 - 70 U/L 10/27/2023 1:11 PM CDT [facility] Comment:Reference intervals for this test were updated on 11/10/2022 to more accurately reflect our healthy population. There may be differences in the flagging of prior results with similar values performed with this method. Interpretation of those prior results can be made in the context of the updated reference intervals. Protein Total 6.5 6.4 - 8.3 g/dL 10/27/2023 1:11 PM CDT [facility] Albumin 3.7 3.5 - 5.2 g/dL 10/27/2023 1:11 PM CDT [facility] Bilirubin Total <0.2 <=1.2 mg/dL 10/27/2023 1:11 PM CDT [facility] Blood BLOOD SPECIMEN / Unknown IVAD (Port) / Unknown 10/27/2023 12:25 PM CDT 10/27/2023 12:48 PM CDT Sixto Whalen APRN OVERLOCKER LAB - BLOOD ORDERABL ES LAB[facility] Acute Care Lab [address] [facility] Lab (1st floor, no room number) [place] [address], [facility] documented in this encounter Visit Diagnoses Diagnosis Urothelial cancer (H)- Primary Malignant neoplasm of other specified sites of urinary organs documented in this encounter Administered Medications Inactive Administered Medications - up to 3 most recent administrations Medication Order MAR Action Action Date Dose Rate Site heparin 100 unit/mL injection 5 mL 5 mL, Intracatheter, ONCE PRN, line flush, To de-access CVC Impanted port or lock each lumen, Starting on Thu10/27/23 at 1223, For 1 dose, PORT: to de-access, instill 5 mL before PORT needle is removed and every 28 days $Given 10/27/2023 12:25 PM CDT 5 mLs sodium chloride (PF) 0.9% PF flush 3-20 mL 3-20 mL, Intracatheter, EVERY 1 HOUR PRN, line flush, post meds or blood draw, Starting on Thu10/27/23 at 1223, Midline; CVC; PICC; Huizar; PORT: 10 mL after each use & PRN to assess patency; 20 mL after blood draw. $Given 10/27/2023 12:25 PM CDT 20 mLs documented in this encounter Care Teams Public Services Assistant Relationship Specialty Start Date End Date System, Provider Not In PCP - General Clinic 08/13/23 12/21/23 Alvaro Clark MD 420 [facility] 394 [place], [place] [phone] Assigned Surgical Provider 07/24/23 Sixto Whalen APRN OVERLOCKER 909 [place], [place] 6[address]95 Assigned Cancer Care Provider 10/22/23 12/21/23 documented as of this encounter
--- OUTSIDE RECORDS SUMMARY | 2023-12-26 23:08 | XMS_ITS | Encounter Summary ---
Author Organization [facility] Address [address] [place] [address] Care Team Providers Care Time Study Observer Name Role Phone Alvaro Clark MD Unavailable System, Provider Not In Primary Care Provider Un available Ky Torres MD Unavailable [phone] Sixto Whalen APRN STAGE PRODUCER Unavailable [phone] No Ref-Primary, Physician Primary Care Provider Yessica Mcleod PA-C Unavailable Encounter Details Date Type Department Care Team (Late st Contact Info) Description 09/28/2023 MyC Medical Advice [address] [place] [address] [facility] [place] [phone] Charlie Almonte, CARLOS Urothelial cancer (H) (Primary Dx) Social History [...] Description 01/01/2024 9:45 AM CDT Office Visit [place] [phone] [place] [address] Alvaro Clark MD [address] [place] [address]78[address] 02/26/2024 7:45 AM CDT Lab [address] 200 [place] [address] Ky Torres MD [address] [address] 02/26/2024 8:[address] [facility] Imaging [address] [place] [phone] Yessica Mcleod PAJannetC 909 [place] [address] 03/04/2024 8:00 AM CDT Oncology Visit [address] [place] 200 [place] [phone] Ky Torres MD [address] [place] [address]695 documented as of this encounter Visit Diagnoses Diagnosis Urothelial cancer (H)- Primary Malignant neoplasm of other specified sites of urinary organs documented in this encounter Care Teams Time Study Observer Relationship Specialty Start Date End Date System, Provider Not In PCP - General Clinic 08/13/23 12/21/23 No Ref-Primary, Physician PCP - General 12/22/23 Alvaro Clark MD [address] [place] [address]155 Assigned Surgical Provider 07/24/23 Ky Torres MD [address] [place] [address] 480 [place], [place] 6[address] Assigned Cancer Care Provider 09/22/23 10/21/23 Sixto Whalen APRN CNP [address] [place] [address]605 Assigned Cancer Care Provider 10/22/23 12/21/23 Yessica Mcleod, RONALD [address] [place] [address] Assigned Cancer Care Provider 12/22/23 documented as of this encounter
--- OUTSIDE RECORDS SUMMARY | 2023-12-26 23:08 | XMS_ITS | Encounter Summary ---
Author Organization [facility] Address [address] [place] [address] Care Team Providers Care Heavy Duty Diesel Mechanic Name Role Phone Alvaro Clark MD Unavailable System, Provider Not In Primary Care Provider Un available Ky Torres MD Unavailable [phone] Encounter Details Date Type Department Care Team (Latest Contact Info) Description 09/29/2023 Travel Social History Tobacco Use Types Packs/Day [...] Description 01/01/2024 9:45 AM CDT Office Visit [place] [address] [address] [facility] [place] [phone] Alvaro Clark MD [address] [address] 02/26/2024 7:45 AM CDT Lab [facility] Medical [place] [address] [address] [place] [phone] Ky Torres MD 420 [facility] 480 [place] [address] 02/26/2024 8:40 AM CDT Appointment [facility] Center Imaging [address] [place] [phone] Yessica Mcleod PA-C 909 [place] [address] 03/04/2024 8:00 AM CDT Oncology Visit [facility] Cancer [facility] [address] [place] [address] 200 [facility] [place] [phone] Ky Torres MD [address] [address] documented as of this encounter Visit Diagnoses Not on filedocumented in this encounter Care Teams Heavy Duty Diesel Mechanic Relationship Specialty Start Date End Date System, Provider Not In PCP - General Clinic 08/13/23 12/21/23 Alvaro Clark MD [address] [place] [address] 394 [place] [address] Assigned Surgical Provider 07/24/23 Ky Torres MD 420 [facility] 480 [place] [address] Assigned Cancer Care Provider 09/22/23 10/21/23 documented as of this encounter
--- OUTSIDE RECORDS SUMMARY | 2023-12-26 23:08 | XMS_ITS | Encounter Summary ---
Author Organization [facility] Address [address] [place] [address] Care Team Providers Care Production Solderer Name Role Phone Alvaro Clark MD Unavailable System, Provider Not In Primary Care Provider Un available Sixto Whalen APRN, CNP Unavailable [phone] Reason for Referral * Diagnostic Imaging PET (Routine) - Pending Review Specialty Diagnoses / Procedures Referred By Contac t Referred To Contact Radiology. 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) Procedures PET Oncology Whole Body Sixto Whalen APRN TOOL PUSHER 909 [place] [address] Referral ID Status Reason Start Date Expiration Date V isits Requested Visits Authorized [id number] Pending Review 10/27/2023 10/26/2024 1 1 Reason for Visit * Reason Comments Video Visit Follow Up Encounter Details Date Type Department Care Team (Late st Contact Info) Description 10/27/2023 2:30 PM CDT Virtual Visit [facility] [address], [address] [facility] [place] [phone] Sixto Whalen APRN TOOL PUSHER 909 [place], [place] [address] Urothelial cancer (H) (Primary Dx); Malignant neoplasm [...] Sign Reading Time Taken Comments Blood Pressure - - Pulse - - Temperature - - Respiratory Rate - - Oxygen Saturation - - Inhaled Oxygen Concentration - - Weight 86.2 kg (190 lb) 10/27/2023 2:14 PM CDT Height 170.2 cm (5' 7) 10/27/2023 2:14 PM CDT Body Mass Index 29.76 10/27/2023 2:14 PM CDT documented in this encounter Progress Notes * Sixto Whalen APRN TOOL PUSHER - 10/27/2023 2:30 PM CDT Virtual Visit Details Type of service: Telephone Visit Phone call duration: 11 minutes Originating Location (pt. Location): Home Distant Location (provider location): On-site Oncology/Hematology Visit Note October 27, 2023 Reason for Visit: follow up of muscle invasive bladder cancer Follows with 09/29/2023 started MVAC chemotherapy regimen- After 2 cycles of treatment PET scan revealed response to treatment Patient scheduled for cycle 3 treatment tomorrow Interval History: Patient reports he continues to feel well. Denies fever chills sweats cough shortness of breath chest pain nausea vomiting diarrhea abdominal pain bleeding. Review of Systems: 14 point ROS of systems including Constitutional, Eyes, Respiratory, Cardiovascular, Gastroenterology, Genitourinary, Integumentary, Muscularskeletal, Psychiatric were all negative except for pertinent positives noted in my HPI. Physical Examination: Telephone visit no audible wheezing or cough patient is patient is appropriately Laboratory Data: CBC CMP and magnesium results reviewed Assessment and Plan: muscle invasive bladder cancer Follows with 09/29/2023 started MVAC chemotherapy regimen So far patient reports he has been tolerating treatment well PET scan after cycle 2 showed response to treatment Labs reviewed Ok to proceed with cycle 3- MVAC tomorrow Patient is scheduled with cycle 4 for with Yessica Schedule PET scan after cycle 4 and follow-up appointment with Dr. Torres Leukocytosis Patient denies fever chills or any signs symptoms of infection Secondary to Neulasta Ok to proceed In the event of fever chills sweats or clinic or go to ER Anemia. Stable continue to monitor Persistent FDG uptake near the periapical lucency of the left mandibular second molar. Patient denies any jaw pain or tooth ache I advised patient to see dentist as soon as possible- Please call clinic with any changes in health condition or questions Sixto Whalen APRN CNP [facility] Chart documentation with Generation[employer] Voice recognition Software. Although reviewed after completion, some words and grammatical errors may remain. documented in this encounter Nursing Notes * Maria Alejandra Harris - 10/27/2023 2:30 PM CDT Is the patient currently in the state of [place]? YES Visit mode:TELEPHONE If the visit is dropped, the patient can be reconnected by: VIDEO VISIT: Send to e-mail at: Will anyone else be joining the visit? NO (If patient encounters technical issues they should call [phone] :[phone]) How would you like to obtain your AVS? MyChart Are changes needed to the allergy or medication list? No Reason for visit: Video Visit (Follow Up ) Maria Alejandra Harris VVF documented in this encounter Plan of Treatment Upcoming Encounters Date Type Department Care Team (Late st Contact Info) Description 01/01/2024 9:45 AM CDT Office Visit [address] 200 [facility] [place] [phone] Alvaro Clark MD 420 [facility] 394 [place] [address] 02/26/2024 7:45 AM CDT Lab [facility] [address] [place] [address] Ky Torres MD [address] [address] 02/26/2024 8:40 AM CDT Appointment [facility] Imaging [address] [place] [address] Yessica Mcleod PA-C 909 [place], [place] [phone] 03/04/2024 8:00 AM CDT Oncology Visit [address] [place] 200 [facility] [place] [address] Ky Torres MD [address] [place] [address] Scheduled Orders Name Type Priority Associated Diagnoses Orde r Schedule PET Oncology Whole Body Imaging Routine Urothelial cancer (H) 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) Expected: 10/27/2023 (Approximate), Expires: 10/26/2024 documented as of this encounter Visit Diagnoses Diagnosis Urothelial cancer (H)- Primary Malignant neoplasm of other specified sites of urinary organs 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
--- OUTSIDE RECORDS SUMMARY | 2023-12-26 23:08 | XMS_ITS | Encounter Summary ---
Author Organization [facility] Address [address] [place] [address] Care Team Providers Care Field Education Director Name Role Phone Alvaro Clark MD Unavailable System, Provider Not In Primary Care Provider Un available Sixto Whalen APRN ADVERTISING SALES ASSISTANT Unavailable Reason for Visit * Reason Comments Port Draw Encounter Details Date Type Department Care Team (Late st Contact Info) Description 11/10/2023 7:45 AM CDT Lab [facility] [address] [place] [phone] Ky Torres MD 420 [facility] [address] [place], [place] [phone] Urothelial cancer (H) (Primary Dx) Social History [...] Progress Notes * Ginger Waller, RN - 11/10/2023 7:45 AM CDT Nursing Note: Oleg Richard presents today for Port Labs. Patient to be seen by provider today: Yes: Yessica Haynes PA-C Oceanography Teacher present during visit today: Not Applicable. Note: N/A. Intravenous Access: Labs drawn without difficulty. Implanted Port. Discharge Plan: Patient was sent to [facility] for provider appointment, followed by infusion. Felix Waller, RN documented in this encounter Plan of Treatment Upcoming Encounters Date Type Department Care Team (Late st Contact Info) Description 01/01/2024 9:45 AM CDT Office Visit [address] [facility] [place] [address] Alvaro Clark MD 420 [facility] [address] [place], [place] [address] 02/26/2024 7:45 AM CDT Lab [address] [place] [phone] Ky Torres MD [address] [address] 02/26/2024 8:40 AM CDT Appointment [facility] Imaging [address] [facility] [address] [place] [phone] Yessica Mcleod PA-C 909 [place] [address] 03/04/2024 8:00 AM CDT Oncology Visit [address] [place] [address] Ky Torres MD [address] [address] documented as of this encounter Procedures Procedure Name Priority Date/Time Associated Diagnosis Comments CBC WITH PLATELETS AND DIFFERENTIAL Routine 11/10/2023 7:33 AM CDT Urothelial cancer (H) CBC WITH PLATELETS & DIFFERENTIAL Routine 11/10/2023 7:33 AM CDT Urothelial cancer (H) MAGNESIUM Routine 11/10/2023 7:33 AM CDT Urothelial cancer (H) DIFFERENTIAL Routine 11/10/2023 7:33 AM CDT Urothelial cancer (H) COMPREHENSIVE METABOLIC PANEL Routine 11/10/2023 7:33 AM CDT Urothelial cancer (H) documented in this encounter Results * (ABNORMAL) Manual Differential (11/10/2023 7:33 AM CDT) % Neutrophils 63 % 11/10/2023 8:10 AM CDT [facility] % Lymphocytes 16 % 11/10/2023 8:10 AM CDT [facility] % Monocytes 4 % 11/10/2023 8:10 AM CDT [facility] % Eosinophils 5 % 11/10/2023 8:10 AM CDT [facility] % Basophils 0 % 11/10/2023 8:10 AM CDT [facility] % Metamyelocytes 7 % 11/10/19 8:10 AM CDT [facility] % Myelocytes [...] LAB - B LOOD ORDERABLES [facility] [address] Lab (1st floor, no room number) [place] [address], [facility] * (ABNORMAL) CBC with platelets and differential (11/10/2023 7:33 AM CDT) WBC Count 14.8(H) 4.0 - 11.0 10e3/uL [...] PA-C LAB - B LOOD ORDERABLES LABORATORY [facility] [address] Lab (1st floor, no room number) [place] [address] * Magnesium (11/10/2023 7:33 AM CDT) Magnesium 1.7 1.7 - 2.3 mg/dL 11/10/2023 8:14 AM CDT LABORATORY Blood BLOOD SPECIMEN / Unknown IVAD (Port) / Unknown 11/10/2023 7:33 AM CDT 11/10/2023 7:42 AM CDT Yessica Haynes PA-C LAB - B LOOD ORDERABLES Performing Organization Address City/[facility]/ZIP Co de Phone Number LABORATORY [facility] [address] Lab (1st floor, no room number) [place] [address] * (ABNORMAL) Comprehensive metabolic panel (11/10/2023 7:33 AM CDT) Sodium 140 135 - 145 mmol/L 11/10/2023 8:14 AM CDT LABORATORY Comment:Reference intervals for this test were updated on 02/24/2023 to more accurately reflect our healthy population. There may be differences in the flagging of prior results with similar values performed with this method. Interpretation of those prior results can be made in the context of the updated reference intervals. Potassium 4.0 3.4 - 5.3 mmol/L 11/10/2023 8:14 AM CDT LABORATORY Carbon Dioxide (CO2) 27 22 - 29 mmol/L 11/10/2023 8:14 AM CDT LABORATORY Anion Gap 9 7 - 15 [...] PA-C LAB - B LOOD ORDERABLES LABORATORY [facility] [address] Lab (1st floor, no room number) [place] [address], [facility] documented in this encounter Visit Diagnoses Diagnosis Urothelial cancer (H)- Primary Malignant neoplasm of other specified sites of urinary organs documented in this encounter Administered Medications Inactive Administered Medications - up to 3 most recent administrations Medication Order MAR Action Action Date Dose Rate Site sodium chloride (PF) 0.9% PF flush 3-20 mL 3-20 mL, Intracatheter, EVERY 1 HOUR PRN, line flush, post meds or blood draw, Starting on Thu11/10/23 at 0732, Midline; CVC; PICC; Huizar; PORT: 10 mL after each use & PRN to assess patency; 20 mL after blood draw. $Given 11/10/2023 7:33 AM CDT 20 mLs documented in this encounter Care Teams Field Education Director Relationship Specialty Start Date End Date System, Provider Not In PCP - General Clinic 08/13/23 12/21/23 Alvaro Clark MD [address] [place] [address] [address] [place] [address] Assigned Surgical Provider 07/24/23 Sixto Whalen APRN CNP [address] [place] [address] Assigned Cancer Care Provider 10/22/23 12/21/23 documented as of this encounter
--- OUTSIDE RECORDS SUMMARY | 2023-12-26 23:08 | XMS_ITS | Encounter Summary ---
Author Organization [facility] Address [address] [place] [address] Care Team Providers Care Jet Dyeing Machine Operator Name Role Phone Alvaro Clark MD Unavailable System, Provider Not In Primary Care Provider Un available Sixto Whalen APRN LEGAL SECRETARY RECEPTIONIST Unavailable [phone] Reason for Referral * Diagnostic Imaging Ultrasound (Routine) - Pending Review Specialty Diagnoses / Procedures Referred By Contac t Referred To Contact Radiology. Diagnoses Left leg swelling Procedures US Lower Extremity Venous Duplex Left Yessica Mcleod PA-C [address] [place] [address] Fax: [phone] Referral ID Status Reason Start Date Expiration Date V isits Requested Visits Authorized [id number] Pending Review 11/10/2023 11/09/2024 1 1 Reason for Visit * Reason Comments Oncology Clinic Visit Encounter Details Date Type Department Care Team (Latest Contact Info) Description 11/10/2023 8:00 AM CDT Oncology Visit [address] [facility] [place] [phone] Yessica Mcleod PA-C [address] [place] [phone] Urothelial cancer (H) (Primary Dx); Left leg swelling Social History Tobacco Use Types Packs/Day Years Used Date Smoking Tobacco: Former Cigarettes 1.5 30 1 980 - 2010 Passive Smoke Exposure: Past Smokeless Tobacco: Never [...] Sign Reading Time Taken Comments Blood Pressure 124/73 11/10/2023 8:06 AM CDT Pulse 62 11/10/2023 8:06 AM CDT Temperature 36.2 ??C (97.2 ??F) 11/10/2023 8:06 AM CD T Respiratory Rate 16 11/10/2023 8:06 AM CDT Oxygen Saturation 95% 11/10/2023 8:06 AM CDT Inhaled Oxygen Concentration - - Weight 87.1 kg (192 lb 1.6 oz) 11/10/2023 8:06 A M CDT Height - - Body Mass Index 30.09 10/27/2023 2:14 PM CDT documented in this encounter Progress Notes * Yessica Mcleod PA-C - 11/10/2023 8:00 AM CDT Oncology/Hematology Visit Note Nov 10, 2023 Reason for visit: Follow up MIBC Oncology HPI: 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 He initially had urinary retention wasseen in the [place] [facility] in May 2023. He saw urology [...] and decreased size of the bladder tumor. He is here today for MVAC cycle 4. Interval History: Oleg is here unaccompanied. He is happy to be done with chemotherapy after today. Surgery is still TBD. Appetite has been really good, he feels he is drinking fluids pretty well. He has noticed some left leg swelling intermittently for a while that could be going on for months,but no significant changes recently. He has also had a rash around his right eye, this has been itchy and he thinks he may have been bit or irritated by a spider last weekend while fishing. Vision isunchanged. He is tolerating Neulasta pretty well. Some SOB with warmer and humid weather, but otherwise normal. No fever, chills, vomiting, diarrhea or bleeding. Review of Systems: See interval hx. Denies fevers, chills, LIU, n/t, changes in vision, cough, CP, SOB, abdominal pain, N/V, diarrhea, changes in urination, bleeding, bruising. PMHx and Social Hx reviewed per [employer]. Medications: Current Outpatient Medications Medication Sig Dispense [...] needed for nausea (vomiting) 30 tablet 2 prochlorperazine (COMPAZINE) 10 MG tablet Take 1 tablet (10 mg) by mouth every 6 hours as needed for nausea or vomiting 30 tablet 2 tamsulosin (FLOMAX) 0.4 MG capsule Take 2 capsules (0.8 mg) by mouth daily 180 capsule 1 Allergies Allergen Reactions Penicillins Nausea and Vomiting EXAM: BP 124/73 Pulse 62 Temp 97.2 ??F (36.2 ??C) (Tympanic) Resp 16 Wt 87.1 kg (192 lb 1.6 oz) SpO2 95% BMI 30.09 kg/m?? GENERAL: Male, in no acute distress. Alert and oriented x3. HEENT: Normocephalic, atraumatic. LYMPH NODES: No palpable pre/post-auricular, cervical lymphadenopathy appreciated. CV: RRR, No murmurs, gallops, or rubs. LUNGS: Clear to auscultation bilaterally. ABDOMEN: Soft, nontender and nondistended. Bowel sounds heard x4. No apparent hepatosplenomegaly. EXTREMITIES: No clubbing, cyanosis, or edema. SKIN: No rash, port right chest without erythema, pus or tenderness. PSYCH: Calm and cooperative Labs: 11/10/23 07:33 Sodium 140 Potassium 4.0 Chloride 104 Carbon Dioxide (CO2) 27 Urea Nitrogen 13.9 Creatinine 0.74 GFR Estimate >90 Calcium 8.8 Anion Gap 9 Magnesium 1.7 Albumin 3.8 Protein Total 6.3 (L) Alkaline Phosphatase 142 ALT 21 AST 23 Bilirubin Total <0.2 Glucose 104 (H) WBC 14.8 (H) Hemoglobin 11.4 (L) Hematocrit 35.3 (L) Platelet Count 158 RBC Count 4.04 (L) MCV 87 MCH 28.2 MCHC 32.3 RDW 14.2 % Neutrophils 63 % Lymphocytes 16 % Monocytes 4 % Eosinophils 5 % Basophils 0 % Metamyelocytes 7 % Myelocytes 4 % Plasma Cells 1 Absolute Basophils 0.0 NRBC/W 1 (H) Absolute Neutrophil 9.3 (H) Absolute Lymphocytes 2.4 Absolute Monocytes 0.6 Absolute Eosinophils 0.7 Absolute Metamyelocytes 1.0 (H) Absolute Myelocytes 0.6 (H) Absolute Plasma Cells 0.1 (H) Absolute NRBCs 0.0 Absolute NRBCs 0.1 (H) NRBCs per 100 WBC 0 RBC Morphology Confirmed RBC Indices Platelet Morphology Automated Count Confirmed. Platelet morphology is normal. Polychromasia Slight ! Teardrop Cells Slight ! Toxic Granulation Present ! Reactive Lymphs Present ! Imaging: n/a Impression/Plan: Oleg Richard is a 63 year old male with MIBC currently on neoadjuvant MVAC. MIBC: Currently on neoadjuvant MVAC, C1 D1 completed 09/29/2023 and after 2 cycles, PET scan with treatment response. He has now completed 3 full cycles and doing really well. Labs reviewed and ok forcycle 4 today. Leukocytosis likely from Neulasta and no infectious sx. We will need to schedule PETand follow-up with Dr Torres to determine next steps. Leg swelling: LLE, intermittent for a few months. Will obtain stat US to r/o DVT. Rash: Around right eye and eyelid. Thinks from a bug bite, but looks inflamed. Recommend topical cortisone to the area. Chart documentation with [employer] Voice recognition Software. Although reviewed after completion, some words and grammatical errors may remain. 24 minutes spent on the date of the encounter doing chart review, review of test results, interpretation of tests, patient visit, and documentation Yessica Cheng PA-C Hematology/Oncology [facility] documented in this encounter Nursing Notes * Lori Portillo CMA - 11/10/2023 8:00 AM CDT Oncology Rooming Note November 10, 2023 8:07 AM Oleg Richard is a 63 year old male who presents for: Chief Complaint Patient presents with Oncology Clinic Visit Initial Vitals: BP 124/73 Pulse 62 Temp 97.2 ??F (36.2 ??C) (Tympanic) Resp 16 Wt 87.1 kg (192 lb 1.6 oz) SpO2 95% BMI 30.09 kg/m?? Estimated body mass index is 30.09 kg/m?? as calculatedfrom the following: Height as of 10/27/23: 1.702 m (5' 7). Weight as of this encounter: 87.1 kg (192 lb 1.6 oz). Body surface area is 2.03 meters squared. No Pain (0) Comment: Data Unavailable No LMP for male patient. Allergies reviewed: Yes Medications reviewed: Yes Medications: Medication refills not needed today. Pharmacy name entered into [employer]: [place], [place] - [address] [place] [address] Frailty Screening: Is the patient here for a new oncology consult visit in cancer care? 2. No Clinical concerns: f/u Lori Portillo CMA documented in this encounter Plan of Treatment Upcoming Encounters Date Type Department Care Team (Late st Contact Info) Description 01/01/2024 9:45 AM CDT Office Visit [address] [facility] [place] [address] Alvaro Clark MD 420 [facility] 394 [place] [address] 02/26/2024 7:45 AM CDT Lab [address] [place] [address] Ky Torres MD [address] [address] 02/26/2024 8:40 AM CDT Appointment [facility] Imaging [address] [place] [address] Yessica Mcleod PA-C 9[address] [place] [address] 03/04/2024 8:00 AM CDT Oncology Visit [address] [place] [address] Ky Torres MD [address] [address] documented as of this encounter Results * US Lower Extremity Venous Duplex Left (11/10/2023 2:17 PM CDT) Anatomical Region Laterality Modality Vascular, Thigh, Leg Ultrasound Impressions 11/10/2023 3:47 PM CDT IMPRESSION: No evidence of deep venous thrombosis in the left lower extremity. JASMIN MCCLAIN, Narrative 11/10/2023 3:47 PM CDT ULTRASOUND LEFT [...] extremity. JASMIN MCCLAIN DO Yessica Haynes PA-C IMG US ORDERABLES documented in this encounter Visit Diagnoses Diagnosis Urothelial cancer (H)- Primary Malignant neoplasm of other specified sites of urinary organs Left leg swelling Left leg swelling documented in this encounter Care Teams Jet Dyeing Machine Operator Relationship Specialty Start Date End Date System, Provider Not In PCP - General Clinic 08/13/23 12/21/23 Alvaro Clark MD [address] [place] [address] Assigned Surgical Provider 07/24/23 Sixto Whalen APRN CNP [address] [place] [address] Assigned Cancer Care Provider 10/22/23 12/21/23 documented as of this encounter
--- OUTSIDE RECORDS SUMMARY | 2023-12-26 23:08 | XMS_ITS | Encounter Summary ---
Author Organization [facility] Address [address] [place] [address] Care Team Providers Care Grinder Set Up Operator Gear Tool Name Role Phone Alvaro Clark MD Unavailable System, Provider Not In Primary Care Provider Un available Ky Torres MD Unavailable [phone] Encounter Details Date Type Department Care Team (Latest Contact Info) Description 10/21/2023 Travel Social History Tobacco Use Types Packs/Day [...] Description 01/01/2024 9:45 AM CDT Office Visit [place] [address] [address] [facility] [place] [phone] Alvaro Clark MD [address] [address] 02/26/2024 7:45 AM CDT Lab [facility] [place] [address] [address] [place] [phone] Ky Torres MD 420 [facility] [address] [place] [address] 02/26/2024 8:40 AM CDT Appointment [facility] Imaging [address] [place] [phone] Yessica Mcleod PA-C 9[address] [place] [address] 03/04/2024 8:00 AM CDT Oncology Visit [facility] [address] [place] [address] [facility] [place] [phone] Ky Torres MD [address] [address] documented as of this encounter Visit Diagnoses Not on filedocumented in this encounter Care Teams Grinder Set Up Operator Gear Tool Relationship Specialty Start Date End Date System, Provider Not In PCP - General Clinic 08/13/23 12/21/23 Alvaro Clark MD [address] [place] [address] 394 [place] [address] Assigned Surgical Provider 07/24/23 Ky Torres MD 420 [facility] [address] [place] [address] Assigned Cancer Care Provider 09/22/23 10/21/23 documented as of this encounter
--- OUTSIDE RECORDS SUMMARY | 2023-12-26 23:08 | XMS_ITS | Encounter Summary ---
Author Organization [facility] Address [address] [place] [address]. [place] [address] Care Team Providers Care Insurance Clerk Name Role Phone Alvaro Clark MD Unavailable System, Provider Not In Primary Care Provider Un available Ky Torres MD Unavailable [phone] Reason for Visit * Reason Comments Video Visit Follow up Encounter Details Date Type Department Care Team (Late st Contact Info) Description 10/12/2023 2:30 PM CDT Virtual Visit [facility] [address] [facility] [place] [phone] Sixto Whalen APRN [facility] [address] [place] [address] Urothelial cancer (H) (Primary Dx) Social History [...] - Inhaled Oxygen Concentration - - Weight 89.8 kg (198 lb) 10/12/2023 2:09 PM CDT Height 170.2 cm (5' 7) 10/12/2023 2:09 PM CDT Body Mass Index 31.01 10/12/2023 2:09 PM CDT documented in this encounter Progress Notes * Sixto Whalen APRN CNP - 10/12/2023 2:30 PM CDT Virtual Visit Details Type of service: Telephone Visit Phone call duration: 11 minutes Originating Location (pt. Location): Home Distant Location (provider location): On-site Oncology/Hematology Visit Note October 12, 2023 Reason for Visit: follow up of muscle invasive bladder cancer Follows with 09/29/2023 started MVAC chemotherapy regimen Interval History: Patient reports feeling well. Reports so far has been tolerating treatment well denies fever chillssweats cough shortness of breath chest pain nausea vomiting diarrhea abdominal pain or bleeding Reports good energy and appetite Review of Systems: 14 point ROS of [...] reports he has been tolerating treatment well Labs reviewed Okay to proceed with cycle 2- MVAC tomorrow Schedule for PET scan next week after cycle 2 and follow-up appointment with Patient is scheduled with cycle 3 and cycle 4 Plan for PET scan after cycle 4 and follow-up appointment with Dr. Torres Leukocytosis Patient denies fever chills or any signs symptoms of infection Secondary to Neulasta Okay to proceed Please call clinic with any changes in health condition or questions Sixto Whalen APRN CNP [facility] Chart documentation with [employer] Voice recognition Software. Although reviewed after completion, some words and grammatical errors may remain. documented in this encounter Nursing Notes * Maria Alejandra [facility] - 10/12/2023 2:30 PM CDT Is the patient currently in the state of [place]? YES Visit mode:TELEPHONE If the visit is dropped, the patient can be reconnected by: VIDEO VISIT: Send to e-mail at: [email or web address] Will anyone else be joining the visit? NO (If patient encounters technical issues they should call [phone]) How would you like to obtain your AVS? MyChart Are changes needed to the allergy or medication list? No Reason for visit: Video Visit (Follow up) Maria Alejandra [facility] V[facility] documented in this encounter Plan of Treatment Upcoming Encounters Date Type Department Care Team (Late st Contact Info) Description 01/01/2024 9:45 AM CDT Office Visit [address] [place] [phone] Alvaro Clark MD 420 [facility] 394 [place], [place] [address] 02/26/2024 7:45 AM CDT Lab [place] [address] [place] [address] Ky Torres MD 420 [facility] 480 [place], [place] [address] 02/26/2024 8:40 AM CDT Appointment [facility] Imaging [address] [facility] [address] [place] [phone] Yessica Mcleod PA-C [address] [place], [place] [address] 03/04/2024 8:00 AM CDT Oncology Visit [place] [address] [place] [address] Ky Torres MD 420 [facility] 480 [place], [place] [address] documented as of this encounter Visit Diagnoses Diagnosis Urothelial cancer (H)- Primary Malignant neoplasm of other specified sites of urinary organs documented in this encounter Care Teams Insurance Clerk Relationship Specialty Start Date End Date System, Provider Not In PCP - General Clinic 08/13/23 12/21/23 Alvaro Clark MD 420 [facility] [address] [place] [address] Assigned Surgical Provider 07/24/23 Ky Torres MD 420 [facility] 480 [place] [address] Assigned Cancer Care Provider 09/22/23 10/21/23 documented as of this encounter
--- OUTSIDE RECORDS SUMMARY | 2023-12-26 23:08 | XMS_ITS | Encounter Summary ---
Author Organization [facility] Address [address] [place] [address] Care Team Providers Care Laborer [place] Name Role Phone Alvaro Clark MD Unavailable System, Provider Not In Primary Care Provider Un available Ky Torres MD Unavailable [phone] Reason for Visit * Diagnostic Imaging PET (Routine) - Pending Review Specialty Diagnoses / Procedures Referred By Contac t Referred To Contact Radiology. 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) Procedures PET Oncology (Eyes to Thighs) Ky Torres MD [address] [place] [address] Referral ID Status Reason Start Date Expiration Date V isits Requested Visits Authorized [id number] Pending Review 10/20/2023 10/19/2024 1 1 Encounter Details Date Type Department Care Team (Latest Contact Info) Description 10/21/2023 9:00 AM CDT Ancillary Procedure M [facility] [address] [place], [place] [phone] Ky Torres MD [address] [place] [address] Urothelial cancer (H); Malignant neoplasm of trigone [...] Description 01/01/2024 9:45 AM CDT Office Visit [address] [place] [address] Alvaro Clark MD 420 [facility] 394 [place], [place] [address] 02/26/2024 7:45 AM CDT Lab [address] [place] [phone] yK Torres MD [address] [place] [address] 480 [place], [place] [address] 02/26/2024 8:40 AM CDT Appointment [facility] Imaging [address] [facility] [address] [place] [phone] Yessica Mcleod PAJose Luis 909 [place], [place] [address] 03/04/2024 8:00 AM CDT Oncology Visit [address] [place] [phone] Ky Torres MD [address] [place] [address] 818225 documented as of this encounter Procedures Procedure Name Priority Date/Time Associated Diagnosis Comments PET ONCOLOGY (EYES TO THIGHS) Routine 10/21/2023 10:57 AM CDT Urothelial cancer (H) 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) GLUCOSE WHOLE BLOOD POCT Routine 10/21/2023 8:50 AM CDT Urothelial cancer (H) 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) [place] COLLECTION VENOUS BLOOD VENIPUNCTURE Routine 10/21/2023 8:38 AM CDT Urothelial cancer (H) 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) documented in this encounter Results * PET Oncology (Eyes [...] Torres MD LAB - ENTER/EDIT P MAR documented in this encounter Visit Diagnoses Diagnosis Urothelial cancer (H) Malignant neoplasm of other specified sites of urinary organs 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 neoplasm of trigone of urinary bladder documented in this encounter Administered Medications Inactive Administered Medications - up to 3 most recent administrations Medication Order MAR Action Action Date Dose Rate Site Fludeoxyglucose F 18 (FDG) radioisotope injection 1-18 millicurie 1-18 millicurie, Intravenous, ONCE, On Thu10/21/23 at 0900, For 1 dose $Given 10/21/2023 8:54 AM CDT 14.09 millicuries furosemide (LASIX) injection 40 mg 40 mg, Intravenous, ONCE, Administer over 1-3 Minutes, On Thu10/21/23 at 0900, For 1 dose $Given 10/21/2023 9:56 AM CDT 40 mg iopamidol (ISOVUE-370) solution 50-135 mL 50-135 mL, Intravenous, ONCE, On Thu10/21/23 at 0900, For 1 dose $Given 10/21/2023 9:55 AM CDT 118 mLs sodium chloride (PF) 0.9% PF flush 10-60 mL 10-60 mL, Intravenous, ONCE, On Thu10/21/23 at 0900, For 1 dose $Given 10/21/2023 9:56 AM CDT 100 mLs documented in this encounter Care Teams Laborer [place] Relationship Specialty Start Date End Date System, Provider Not In PCP - General Clinic 08/13/23 12/21/23 Alvaro Clark MD [address] [place] [address] Assigned Surgical Provider 07/24/23 Ky Torres MD [address] [place] [address] Assigned Cancer Care Provider 09/22/23 10/21/23 documented as of this encounter
--- OUTSIDE RECORDS SUMMARY | 2023-12-26 23:08 | XMS_ITS | Encounter Summary ---
Author Organization [place] Address [address] [place] [address] Care Team Providers Care Policy Checker Name Role Phone Alvaro Clark MD Unavailable System, Provider Not In Primary Care Provider Un available Ky Torres MD Unavailable [phone] Encounter Details Date Type Department Care Team (Latest Contact Info) Description 10/12/2023 Travel Social History Tobacco Use Types Packs/Day [...] Description 01/01/2024 9:45 AM CDT Office Visit [place] [address] [address] [facility] [place] [address] Alvaro Clark MD [address] [address] 02/26/2024 7:45 AM CDT Lab [facility] [place] [address] [address] [place] [address] Ky Torres MD 420 [facility] 480 [place] [address] 02/26/2024 8:40 AM CDT Appointment M [facility] Imaging [address] [place] [phone] Yessica Mcleod PA-C 909 [place] [address] 03/04/2024 8:00 AM CDT Oncology Visit [facility] [address] [address] 200 [facility] [place] [address] Ky Torres MD [address] [address] documented as of this encounter Visit Diagnoses Not on filedocumented in this encounter Care Teams Policy Checker Relationship Specialty Start Date End Date System, Provider Not In PCP - General Clinic 08/13/23 12/21/23 Alvaro Clark MD [address] [place] [address] 394 [place] [address] Assigned Surgical Provider 07/24/23 Ky Torres MD 420 [facility] 480 [place] [address] Assigned Cancer Care Provider 09/22/23 10/21/23 documented as of this encounter
--- OUTSIDE RECORDS SUMMARY | 2023-12-26 23:09 | XMS_ITS | Encounter Summary ---
Author Organization [place] Address [facility] [place] [address] Care Team Providers Care Community Education Specialist Name Role Phone Alvaro Clark MD Unavailable System, Provider Not In Primary Care Provider Un available Ky Torres MD Unavailable [phone] Sixto Whalen APRN HUC Unavailable [phone] No Ref-Primary, Physician Primary Care Provider Yessica Mcleod PA-C Unavailable Encounter Details Date Type Department Care Team (Late st Contact Info) Description 09/02/2023 MyC Medical Advice [facility] [place] [address] [address] Castañeda S, DAIS[address] [facility] [place] [place] [address] Ky Torres MD 420 [facility] 480 [place] [address] Social History Tobacco Use Types [...] Description 01/01/2024 9:45 AM CDT Office Visit [address] [place] [address] Alvaro Clark MD [address] [address] 02/26/2024 7:45 AM CDT Lab [facility] [address] [place] [address] Ky Torres MD [address] [address] 02/26/2024 8:40 AM CDT Appointment [facility] Imaging [address] [place] [address] Yessica Mcleod PAJose Luis 909 [place] [address] 03/04/2024 8:00 AM CDT Oncology Visit [address] 200 [facility] [place] [address] Ky Torres MD [address] [address] documented as of this encounter Visit Diagnoses Not on filedocumented in this encounter Care Teams Community Education Specialist Relationship Specialty Start Date End Date System, Provider Not In PCP - General Clinic 08/13/23 12/21/23 No Ref-Primary, Physician PCP - General 12/22/23 Alvaro Clark MD [address] [place] [address] [id number] Assigned Surgical Provider 07/24/23 Ky Torres MD [address] [place] [address] Assigned Cancer Care Provider 09/22/23 10/21/23 Sixto Whalen APRN CNP [address] [place] [address] Assigned Cancer Care Provider 10/22/23 12/21/23 Yessica Mcleod PA-C [address] [place] [id number] Assigned Cancer Care Provider 12/22/23 documented as of this encounter
--- OUTSIDE RECORDS SUMMARY | 2023-12-26 23:09 | XMS_ITS | Encounter Summary ---
Author Organization [place] Address [address] [place] [address] Care Team Providers Care Manager Group Home Name Role Phone Dalila Arrieta Unavailable [phone] System, Provider Not In Primary Care Provider Un available Alvaro Clark MD Unavailable System, Provider Not In Primary Care Provider Un available Ky Torres MD Unavailable [phone] Sixto Whalen APRN CIRCUS SUPERVISOR Unavailable [phone] No Ref-Primary, Physician Primary Care Provider Yessica Mcleod-C Unavailable Reason for Visit * Reason Onset Date Comments Appointment 06/08/2023 Patient needs an appointment for retention and hematuria - please call. Encounter Details Date Type Department Care Team (Late st Contact Info) Description 06/08/2023 Telephone [facility] [address] [place] [address] None Appointment (Patient needs an appointment for retention and hematuria - please call. ) Social History Tobacco Use Types Packs/Day Years Used Date Smoking Tobacco: Never Assessed Adolescent Education Answer Date Record ed Getting School Help Needed Not on file 06/08 Sex and Gender Information Value Date Recorded Sex Assigned at Not on file Gender Identity Not on file Sexual Orientation Not on file documented as of this encounter Miscellaneous Notes * Telephone Encounter - Drake Angelic - 06/10/2023 8:11 AM CST Action 06/10/23 ROSALIE 8:11 AM Action Taken Records from [facility] received. Sent to urgent scanning to be uploaded. TRIC ARC FURNACE OPERATOR * Telephone Encounter - Jacque Chan RN - 06/09/2023 3:14 PM CST Spoke with Zoraida, Patient's niece. He was seen for retention at [facility]. They had referred him to be seen by [facility] but they declined due to being too far away. They would like to be seen at [facility].Patient scheduled for next available with Carolina Arrieta. Zoraida has a disc with imaging and ED notes. Encounter sent to Kandi Romo to try and bring in anyrecords from [facility]. Jacque Chan RN on 06/09/2023 at 3:20 PM TRIC ARC FURNACE OPERATOR * Telephone Encounter - Rosalinda Hendricks - 06/08/2023 4:27 PM CST [facility] Phone Message May a detailed message be left on voicemail: yes Reason for Call: Other: Patient needs an appointment for retention and hematuria - please call. Patient was recently in the hospital and then had cath removed on . Still having retentionand unable to go and has blood clots and is in pain. Sending encounter message per guideline instructions for review and follow-up with Zoraida for scheduling. Thank you! Action Taken: Message routed to: [facility] ([facility]): URO Travel Screening: Not Applicable TRIC ARC FURNACE OPERATOR documented in this encounter Plan of Treatment Upcoming Encounters Date Type Department Care Team (Late st Contact Info) Description 01/01/2024 9:45 AM CDT Office Visit [place] [address] [address] [facility] [place] [phone] Alvaro Clark MD [address] [address] 02/26/2024 7:45 AM CDT Lab [facility] [address] [place] [address] Ky Torres MD 420 [facility] 480 [place] [address] 02/26/2024 8:40 AM CDT Appointment [facility] Imaging [address] [place] [address] Yessica Mcleod PA-C 909 [place], [place] [address] 03/04/2024 8:00 AM CDT Oncology Visit [facility] [address] [place] [address] [address] [facility] [place] [address] Ky Torres MD [address] [address] documented as of this encounter Visit Diagnoses Not on filedocumented in this encounter Care Teams Manager Group Home Relationship Specialty Start Date End Date System, Provider Not In PCP - General Clinic 07/20/23 07/20/23 System, Provider Not In PCP - General Clinic 08/13/23 12/21/23 No Ref-Primary, Physician PCP - General 12/22/23 Dalila Arrieta PA 909 [facility] [place], [place] [address]39485 Assigned Surgical Provider 07/03/23 Alvaro Clark MD 420 [facility] 394 [place], [place] 5764[address] Assigned Surgical Provider 07/24/23 Ky Torres MD [address] [place] [address] 012025 Assigned Cancer Care Provider 09/22/23 10/21/23 Sixto Whalen APRN CNP [address] [place] [address] Assigned Cancer Care Provider 10/22/23 12/21/23 Yessica Mcleod PA-C [address] [place] [address] Assigned Cancer Care Provider 12/22/23 documented as of this encounter
--- OUTSIDE RECORDS SUMMARY | 2023-12-26 23:09 | XMS_ITS | Encounter Summary ---
Author Organization [place] Address [address] [place] [address] Care Team Providers Care Master Control Operator Name Role Phone Alvaro Clark MD Unavailable System, Provider Not In Primary Care Provider Un available Ky Torres MD Unavailable [phone] Encounter Details Date Type Department Care Team (Latest Contact Info) Description 09/24/2023 Travel Social History Tobacco Use Types Packs/Day [...] Description 01/01/2024 9:45 AM CDT Office Visit [place] [address] [address] [facility] [place] [address] Alvaro Clark MD [address] [address] 02/26/2024 7:45 AM CDT Lab [facility] [place] [address] [address] [place] [address] Ky Torres MD 420 [facility] 480 [place] [address] 02/26/2024 8:40 AM CDT Appointment M [facility] Imaging [address] [place] [address] [place] [phone] Yessica Mcleod PA-C 909 [place] [address] 03/04/2024 8:00 AM CDT Oncology Visit [facility] [address] [place] [address] 200 [facility] [place] [address] Ky Torres MD [address] [address] documented as of this encounter Visit Diagnoses Not on filedocumented in this encounter Care Teams Master Control Operator Relationship Specialty Start Date End Date System, Provider Not In PCP - General Clinic 08/13/23 12/21/23 Alvaro Clark MD [address] [place] [address] 394 [place] [address] Assigned Surgical Provider 07/24/23 Ky Torres MD 420 [facility] 480 [place] [address] Assigned Cancer Care Provider 09/22/23 10/21/23 documented as of this encounter
--- OUTSIDE RECORDS SUMMARY | 2023-12-26 23:09 | XMS_ITS | Encounter Summary ---
Author Organization [place] Address [facility] [address] Care Team Providers Care Television Station Manager Name Role Phone Alvaro Clark MD Unavailable System, Provider Not In Primary Care Provider Un available Ky Torres MD Unavailable [phone] Sixto Whalen APRN FOOD SERVICE HELPER Unavailable [phone] No Ref-Primary, Physician Primary Care Provider Yessica Mcleod PA-C Unavailable Encounter Details Date Type Department Care Team (Late st Contact Info) Description 09/26/2023 MyC Medical Advice [facility] [place] [address] Shawanda Castañeda S, DAIS[address] 610 [facility] [place] [place] [address] Ky Torres MD 420 [facility] 480 [place] [address] Social History Tobacco Use Types [...] 01/01/2024 9:45 AM CDT Office Visit [address] [place] [address] Alvaro Clark MD [address] [address] 02/26/2024 7:45 AM CDT Lab [facility] [address] [place] [address] Ky Torres MD [address] [address] 02/26/2024 8:40 AM CDT Appointment [facility] Imaging [address] [place] [address] [place] [address] Yessica Mcleod PAJose Luis 909 [place] [address] 03/04/2024 8:00 AM CDT Oncology Visit [address] [facility] [place] [place] [address] Ky Torres MD [address] [address] documented as of this encounter Visit Diagnoses Not on filedocumented in this encounter Care Teams Television Station Manager Relationship Specialty Start Date End Date System, Provider Not In PCP - General Clinic 08/13/23 12/21/23 No Ref-Primary, Physician PCP - General 12/22/23 Alvaro Clark MD [address] [place] [address] 968535 Assigned Surgical Provider 07/24/23 Ky Torres MD [address] [place] [address] Assigned Cancer Care Provider 09/22/23 10/21/23 Sixto Whalen APRN CNP [address] [place] [address] Assigned Cancer Care Provider 10/22/23 12/21/23 Yessica Mcleod PA-C [address] [place] [address] [id number] Assigned Cancer Care Provider 12/22/23 documented as of this encounter
--- OUTSIDE RECORDS SUMMARY | 2023-12-26 23:09 | XMS_ITS | Encounter Summary ---
Author Organization [place] Address [address] [place] [address] Care Team Providers Care Creative Producer Name Role Phone Dalila Arrieta Unavailable [phone] System, Provider Not In Primary Care Provider Un available Alvaro Clark MD Unavailable System, Provider Not In Primary Care Provider Un available Ky Torres MD Unavailable [phone] Sixto Whalen APRN REMOTE SENSING SPECIALIST Unavailable [phone] No Ref-Primary, Physician Primary Care Provider Yessica Mcleod PA-C Unavailable Encounter Details Date Type Department Care Team (Late st Contact Info) Description 07/17/[address] [facility] Pre[facility] [address] 5th [place] [address] Lisa Guevara RN Social History Tobacco Use Types Packs/Day Years [...] Description 01/01/2024 9:45 AM CDT Office Visit [address] [place] [address] Alvaro Clark MD 420 [facility] 394 [place] [address] 02/26/2024 7:45 AM CDT Lab [address] [place] [address] Ky Torres MD 420 [facility] 480 [place], [place] [address] 02/26/2024 8:40 AM CDT Appointment [facility] Imaging [address] [place] [place] [phone] Yessica Mcleod PA-C [address] [place] [address] 03/04/2024 8:00 AM CDT Oncology Visit [address] [place] [address] Ky Torres MD [address] 3769[address] documented as of this encounter Visit Diagnoses Not on filedocumented in this encounter Care Teams Creative Producer Relationship Specialty Start Date End Date System, Provider Not In PCP - General Clinic 07/20/23 07/20/23 System, Provider Not In PCP - General Clinic 08/13/23 12/21/23 No Ref-Primary, Physician PCP - General 12/22/23 Dalila Arrieta PA [address] [place] [address] Urology [place], [place] 214205 Assigned Surgical Provider 07/03/23 Alvaro Clark MD 420 [facility] 394 [place] [address] Assigned Surgical Provider 07/24/23 Ky Torres MD [address] [address] Assigned Cancer Care Provider 09/22/23 10/21/23 Sixto Whalen APRN CNP [address] [place] [address]95355 Assigned Cancer Care Provider 10/22/23 12/21/23 Yessica Mcleod PAJannetC [address] [place] [address] 664005 Assigned Cancer Care Provider 12/22/23 documented as of this encounter
--- OUTSIDE RECORDS SUMMARY | 2023-12-26 23:09 | XMS_ITS | Encounter Summary ---
Author Organization [place] Address [address] [place] [address] Care Team Providers Care Professor Of Biology Name Role Phone Alvaro Clark MD Unavailable System, Provider Not In Primary Care Provider Un available Encounter Details Date Type Department Care Team (Latest Contact Info) Description 09/21/2023 Travel Social History Tobacco Use Types Packs/Day [...] 9:45 AM CDT Office Visit [place] [address] [place] [address] 200 [facility] [place] [address] Alvaro Clark MD 420 [facility] 394 [place] [address] 02/26/2024 7:45 AM CDT Lab [address] [place] [address] Ky Torres MD 420 [facility] 480 [place], [place] [address] 02/26/2024 8:40 AM CDT Appointment [facility] Imaging [address] [place] [address] [place] [phone] Yessica Mcleod PA-C 909 [place], [place] [address] 03/04/2024 8:00 AM CDT Oncology Visit M [facility] [place] [address] [place] [address] 200 [facility] [place] [phone] Ky Torres MD 420 [facility] 480 [place], [place] [address] documented as of this encounter Visit Diagnoses Not on filedocumented in this encounter Care Teams Professor Of Biology Relationship Specialty Start Date End Date System, Provider Not In PCP - General Clinic 08/13/23 12/21/23 Alvaro Clark MD 420 [facility] 394 [place] [address] Assigned Surgical Provider 07/24/23 documented as of this encounter
--- OUTSIDE RECORDS SUMMARY | 2023-12-26 23:09 | XMS_ITS ---
Author Organization [place] Address [address] [place] [address] Care Team Providers Care Heel Painter Name Role Phone Alvaro Clark MD Unavailable No Ref-Primary, Physician Primary Care Provider Yessica Mcleod PA-C Unavailable Transitional Care Management Status:Identified (Enrolling) Start date:12/25/2023 Continued Care and Services Coordination
--- OUTSIDE RECORDS SUMMARY | 2023-12-26 23:09 | XMS_ITS | Encounter Summary ---
Author Organization [place] Address [address] [place] [id number] Care Team Providers Care Hall Coordinator Name Role Phone Alvaro Clark MD Unavailable System, Provider Not In Primary Care Provider Un available Reason for Visit * Diagnostic Imaging PET (Routine) - Closed Specialty Diagnoses / Procedures Referred By Contac t Referred To Contact Radiology. Diagnoses Urothelial cancer (H) Procedures PET Oncology (Eyes to Thighs) Ky Torres MD [address] [place] [id number] [place] [phone] Referral ID Status Reason Start Date Expiration Date Visits Re quested Visits Authorized [id number] Closed 09/06/2023 09/05/2024 1 1 Encounter Details Date Type Department Care Team (Latest Contact Info) Description 09/21/2023 9:00 AM CDT Ancillary Procedure [facility] [address] [place], [place] [phone] Ky Torres MD [address] [place] [address] [id number] Urothelial cancer (H) Social History Tobacco Use [...] 01/01/2024 9:45 AM CDT Office Visit [address] [place] [address] Alvaro Clark MD 420 [facility] [address] [place] [address] 02/26/2024 7:45 AM CDT Lab [address] [place] [phone] Ky Torres MD 420 [facility] [address] [place], [place] [phone] 02/26/2024 8:40 AM CDT Appointment [facility] [id number] [facility] [address] [place] [phone] Yessica Mcleod, PAJose Luis [address] [place] [address] 03/04/2024 8:00 AM CDT Oncology Visit [address] [place] [address] Ky Torres MD 420 [facility] [address] [place], [place] [phone] documented as of this encounter Procedures Procedure Name Priority Date/Time Associated Diagnosis Comments PET ONCOLOGY (EYES TO THIGHS) STAT 09/21/2023 10:48 AM CDT Urothelial cancer (H) NV COLLECTION VENOUS BLOOD VENIPUNCTURE Routine 09/21/2023 8:36 AM CDT Urothelial cancer (H) GLUCOSE WHOLE BLOOD POCT Routine 09/21/2023 8:15 AM CDT Urothelial cancer (H) documented in this encounter Results * PET Oncology (Eyes to Thighs) (09/21/2023 10:48 AM CDT) Anatomical Region Laterality Modality Whole Body, SUBRAD CT BODY, UMP NUC MED Positron Emission Tomography (PET) Impressions 09/22/2023 11:09 AM CDT IMPRESSION: FDG PET CT of the whole body and post Lasix PET imaging demonstrates: -Hypermetabolic mass centered around the urinary bladder neck and caudally extending along the prostatic urethra as well as on the left involving the trigone region representing pathology proven urothelial carcinoma. -No pelvic or retroperitoneal lymph nodes. -No definite findings to suggest distant metastasis. Other findings: Mildly avid non enlarged hilar and mediastinal nodes are felt to be reactive/ inflammatory. Attention on follow-up is recommended. Left mandibular last molar tooth periapical lucency and associated FDG uptake suggestive of a periapical abscess. Dental consultation recommended. FDG uptake by the gastric fundus without mass like appearance on CT is most suggestive of ??gastritis. Clinical correlation is advised. I have personally reviewed the examination and initial interpretation and I agree with the findings. ALEAH TOM MD Narrative 09/22/2023 11:09 AM CDT Combined Report of: PET and CT on 09/21/2023 10:48 AM: 1. PET of the neck, chest, abdomen, and pelvis. Post Lasix PET of the pelvis was pbtianed. 2. PET CT Fusion for Attenuation Correction and Anatomical Localization. 3. Diagnostic CT of the chest, abdomen and pelvis with intravenous contrast obtained for diagnostic interpretation. 4. 3D MIP and PET-CT fused images were processed on an independent workstation and archived to PACS and reviewed by a radiologist. HISTORY: 63-year-old male with urinary retention 05/2023, subsequently found to have high-grade muscle invasive papillary urothelial carcinoma with focal glandular differentiation, status post TURBT 07/22/2023. Staging scan. Additional info from EMR: ??Cystoscopy findings: Significant tumor burden at trigone and bladder neck plus prostatic urethra all blue light negative right ureteral orifice was surrounded by tumor but not involved. COMPARISON: Outside CT urogram/ abdomen and pelvis 05/26/2023, 10/02/2021. Technique: 1. PET: The patient received 14.77 mCi of F-18-FDG. The serum glucose was 103 mg/dL prior to administration. Body weight was 89.4 kg. Images were evaluated in the axial, [...] sections in bone, soft tissue, and lung windows 3. 3D MIP and PET-CT fused images were processed on an independent workstation and archived to PACS and reviewed by a radiologist. Contrast and Medications: IV contrast: 106 mL of Isovue 370 intravenously. PO contrast: 16 ounces of water. Medications: Lasix 40 mg. FINDINGS: BACKGROUND: Liver SUV max = 3.61, Aorta Blood SUV max = 2.7. HEAD/NECK: Pharyngeal mucosal spaces: Nasopharynx and palatine tonsils are within normal limits. Tongue base is normal. Oral tongue and buccal mucosa of the oral cavity is normal. Oropharynx, hypopharynx and larynx are within normal limits. Focal uptake and periapical lucency around left last mandibular molar tooth. Dental consultation can be considered. Sinonasal region: Paranasal sinuses are clear. No mass within the nasal cavity. Lymph nodes: No FDG avid or abnormally enlarged lymph nodes. Salivary glands: The major salivary glands are within normal limits. Thyroid gland: The thyroid gland is within normal limits. Vascular structures: The major vasculature of the neck are patent. Brain: No abnormal FDG avid lesion or abnormal enhancement. Retrocerebellar 2.8 x 3.3 cm arachnoid cyst. CHEST: Lymph nodes: Scattered bilateral hilar and mediastinal lymph nodes with mildly increased FDG uptake, likely reactive/ inflammatory: Left posterior hilar lymph node measuring 0.8 x 0.3 cm, with maximum SUV of 5.15 (series 2, image 196). Right paratracheal lymph node measuring 1.5 x 1.1 cm, with max SUV of 4.2 (series 2, image 186). Lungs: The central tracheobronchial tree is clear. No pleural effusion or pneumothorax. No suspicious pulmonary nodules. A punctate nodule along the left fissure likely an intrapulmonary node. Heart and great vessels: Heart size is within normal limits. No pericardial effusion. The thoracic aorta and main pulmonary artery are within normal limits. The esophagus is unremarkable. Right IJ approach chest port terminating at the right atrium. ABDOMEN AND PELVIS: Liver: No FDG avid lesion. No intrahepatic or extrahepatic biliary ductal dilatation. Gallbladder is within normal limits. Scattered benign-appearing non-FDG avid hypoenhancing lesions throughout the left hepatic lobes. Pancreas: The pancreas is within normal limits. No pancreatic ductal dilatation. Spleen: No FDG avid lesion. Adrenal glands: No FDG avid foci. Kidneys: No FDG avid lesion. No hydronephrosis. Reproductive organs: within normal limits. Bladder: FDG avid mass (max SUV 32.2) involving the urinary bladder neck, extending caudally around the prostatic urethra and also cranially asymmetrically involve the left trigone (11.3 cc of metabolic tumor volume), better seen on post Lasix imaging. 5.4 (cc) cm x 2.4 cm (ap). ?? Gastrointestinal system: Normal caliber of the small and large bowel. Extensive sigmoid diverticulosis. Mild gaseous rectal distention. Gastric fundus mucosal FDG uptake, could be inflammatory. No mass like appearance on CT. Lymph nodes: No FDG avid or abnormally enlarged lymph nodes. Vascular structures: Normal caliber of the abdominal aorta. Peritoneum: No free air, free fluid, or fluid collection. Abdominal wall: Small bilateral fat-containing inguinal hernias. MUSCULOSKELETAL: No abnormal FDG uptake in the visualized extremities. No abnormal FDG uptake in the skeleton. No abnormal lytic or blastic osseous lesions. SPINAL CANAL: No evident canal compromise. No abnormal FDG avid lesion. Procedure Note Aleah Tom MD - 09/22/2023 Combined Report of: PET and CT on 09/21/2023 10:48 AM: 1. PET of the neck, chest, abdomen, and pelvis. Post Lasix PET of the pelvis was pbtianed. 2. PET CT Fusion for Attenuation Correction and Anatomical Localization. 3. Diagnostic CT of the chest, abdomen and pelvis with intravenous contrast obtained for diagnostic interpretation. 4. 3D MIP and PET-CT fused images were processed on an independent workstation and archived to PACS and reviewed by a radiologist. HISTORY: 63-year-old male with urinary retention 05/2023, subsequently found to have high-grade muscle invasive papillary urothelial carcinoma with focal glandular differentiation, status post TURBT 07/22/2023. Staging scan. Additional info from EMR: Cystoscopy findings: Significant tumor burden at trigone and bladder neck plus prostatic urethra all blue light negative right ureteral orifice was surrounded by tumor but not involved. COMPARISON: Outside CT urogram/ abdomen and pelvis 05/26/2023, 10/02/2021. Technique: 1. PET: The patient received 14.77 mCi of F-18-FDG. The serum glucose was 103 mg/dL prior to administration. Body weight was 89.4 kg. Images were evaluated in the axial, [...] sections in bone, soft tissue, and lung windows 3. 3D MIP and PET-CT fused images were processed on an independent workstation and archived to PACS and reviewed by a radiologist. Contrast and Medications: IV contrast: 106 mL of Isovue 370 intravenously. PO contrast: 16 ounces of water. Medications: Lasix 40 mg. FINDINGS: BACKGROUND: Liver SUV max = 3.61, Aorta Blood SUV max = 2.7. HEAD/NECK: Pharyngeal mucosal spaces: Nasopharynx and palatine tonsils are within normal limits. Tongue base is normal. Oral tongue and buccal mucosa of the oral cavity is normal. Oropharynx, hypopharynx and larynx are within normal limits. Focal uptake and periapical lucency around left last mandibular molar tooth. Dental consultation can be considered. Sinonasal region: Paranasal sinuses are clear. No mass within the nasal cavity. Lymph nodes: No FDG avid or abnormally enlarged lymph nodes. Salivary glands: The major salivary glands are within normal limits. Thyroid gland: The thyroid gland is within normal limits. Vascular structures: The major vasculature of the neck are patent. Brain: No abnormal FDG avid lesion or abnormal enhancement. Retrocerebellar 2.8 x 3.3 cm arachnoid cyst. CHEST: Lymph nodes: Scattered bilateral hilar and mediastinal lymph nodes with mildly increased FDG uptake, likely reactive/ inflammatory: Left posterior hilar lymph node measuring 0.8 x 0.3 cm, with maximum SUV of 5.15 (series 2, image 196). Right paratracheal lymph node measuring 1.5 x 1.1 cm, with max SUV of 4.2 (series 2, image 186). Lungs: The central tracheobronchial tree is clear. No pleural effusion or pneumothorax. No suspicious pulmonary nodules. A punctate nodule along the left fissure likely an intrapulmonary node. Heart and great vessels: Heart size is within normal limits. No pericardial effusion. The thoracic aorta and main pulmonary artery are within normal limits. The esophagus is unremarkable. Right IJ approach chest port terminating at the right atrium. ABDOMEN AND PELVIS: Liver: No FDG avid lesion. No intrahepatic or extrahepatic biliary ductal dilatation. Gallbladder is within normal limits. Scattered benign-appearing non-FDG avid hypoenhancing lesions throughout the left hepatic lobes. Pancreas: The pancreas is within normal limits. No pancreatic ductal dilatation. Spleen: No FDG avid lesion. Adrenal glands: No FDG avid foci. Kidneys: No FDG avid lesion. No hydronephrosis. Reproductive organs: within normal limits. Bladder: FDG avid mass (max SUV 32.2) involving the urinary bladder neck, extending caudally around the prostatic urethra and also cranially asymmetrically involve the left trigone (11.3 cc of metabolic tumor volume), better seen on post Lasix imaging. 5.4 (cc) cm x 2.4 cm (ap). Gastrointestinal system: Normal caliber of the small and large bowel. Extensive sigmoid diverticulosis. Mild gaseous rectal distention. Gastric fundus mucosal FDG uptake, could be inflammatory. No mass like appearance on CT. Lymph nodes: No FDG avid or abnormally enlarged lymph nodes. Vascular structures: Normal caliber of the abdominal aorta. Peritoneum: No free air, free fluid, or fluid collection. Abdominal wall: Small bilateral fat-containing inguinal hernias. MUSCULOSKELETAL: No abnormal FDG uptake in the visualized extremities. No abnormal FDG uptake in the skeleton. No abnormal lytic or blastic osseous lesions. SPINAL CANAL: No evident canal compromise. No abnormal FDG avid lesion. IMPRESSION: FDG PET CT of the whole body and post Lasix PET imaging demonstrates: -Hypermetabolic mass centered around the urinary bladder neck and caudally extending along the prostatic urethra as well as on the left involving the trigone region representing pathology proven urothelial carcinoma. -No pelvic or retroperitoneal lymph nodes. -No definite findings to suggest distant metastasis. Other findings: Mildly avid non enlarged hilar and mediastinal nodes are felt to be reactive/ inflammatory. Attention on follow-up is recommended. Left mandibular last molar tooth periapical lucency and associated FDG uptake suggestive of a periapical abscess. Dental consultation recommended. FDG uptake by the gastric fundus without mass like appearance on CT is most suggestive of gastritis. Clinical correlation is advised. I have personally reviewed the examination and initial interpretation and I agree with the findings. ALEAH TOM MD Ky Torres MD IMG PET ORDERABLES * (ABNORMAL) Glucose Whole Blood POCT (09/21/2023 8:15 AM CDT) Glucose 103(A) 70 - 99 mg/dL Whole blood 09/21/2023 8:15 AM CDT Ky Torres MD LAB - ENTER/EDIT P MAR documented in this encounter Visit Diagnoses Diagnosis Urothelial cancer (H) Malignant neoplasm of other specified sites of urinary organs documented in this encounter Administered Medications Inactive Administered Medications - up to 3 most recent administrations Medication Order MAR Action Action Date Dose Rate Site fluorodeoxyglucose F-18 (FDG) radioisotope injection 8-18 millicurie 8-18 millicurie, Intravenous, ONCE, On Thu09/21/23 at 0900, For 1 dose $Given 09/21/2023 8:19 AM CDT 14.77 millicuries furosemide (LASIX) injection 40 mg 40 mg, Intravenous, ONCE, Administer over 1-3 Minutes, On Thu09/21/23 at 0900, For 1 dose, Do not refrigerate. Protect from light. $Given 09/21/2023 9:22 AM CDT 40 mg iopamidol (ISOVUE-370) solution 50-125 mL 50-125 mL, Intravenous, ONCE, On Thu09/21/23 at 0900, For 1 dose $Given 09/21/2023 9:22 AM CDT 106 mLs sodium chloride (PF) 0.9% PF flush 100 mL 100 mL, Intravenous, ONCE, On 09/21/23 at 0900, For 1 dose, For CT scan flush. $Given 09/21/2023 9:22 AM CDT 100 mLs documented in this encounter Care Teams Hall Coordinator Relationship Specialty Start Date End Date System, Provider Not In PCP - General Clinic 08/13/23 12/21/23 Alvaro Clark MD [address] [place] [id number] Assigned Surgical Provider 07/24/23 documented as of this encounter
--- OUTSIDE RECORDS SUMMARY | 2023-12-26 23:09 | XMS_ITS | Encounter Summary ---
Author Organization [facility] Address [address] [place] [address] Care Team Providers Care Filter Tank Tender Helper Head Name Role Phone Alvaro Clark MD Unavailable System, Provider Not In Primary Care Provider Un available Ky Torres MD Unavailable [phone] Sixto Whalen APRN PLANER HAND Unavailable [phone] No Ref-Primary, Physician Primary Care Provider Yessica Mcleod PA-C Unavailable Encounter Details Date Type Department Care Team (Late st Contact Info) Description 07/24/2023 MyC Medical Advice [facility] [address] [place] [address] Diamond Conway, RN Social History Tobacco Use Types Packs/Day [...] Description 01/01/2024 9:45 AM CDT Office Visit [facility] [address] [facility] [place] [address] Alvaro Clark MD 420 [facility] [address] [place] [address] 02/26/2024 7:45 AM CDT Lab [facility] [id number] [place] [address] [address] [place] [phone] Ky Torres MD [address] [address] 02/26/2024 8:40 AM CDT Appointment [facility] [address] [place] [address] [place] [phone] Yessica Mcleod PAJannetC [address] [place] [address] 03/04/2024 8:00 AM CDT Oncology Visit [address] [place] [phone] Ky Torres MD [address] [place] [phone] documented as of this encounter Visit Diagnoses Not on filedocumented in this encounter Care Teams Filter Tank Tender Helper Head Relationship Specialty Start Date End Date System, Provider Not In PCP - General Clinic 08/13/23 12/21/23 No Ref-Primary, Physician PCP - General 12/22/23 Alvaro Clark MD [address] [place] [address] [phone] Assigned Surgical Provider 07/24/23 Ky Torres MD [address] [place] [address] [id number] Assigned Cancer Care Provider 09/22/23 10/21/23 Sixto Whalen APRN CNP [address] [place] [employer], [place] [address] Assigned Cancer Care Provider 10/22/23 12/21/23 Yessica Mcleod PA-C [address] [place] [employer], [place] [address] Assigned Cancer Care Provider 12/22/23 documented as of this encounter
--- OUTSIDE RECORDS SUMMARY | 2023-12-26 23:09 | XMS_ITS | Encounter Summary ---
Author Organization [place] Address [address] [place] [address] Care Team Providers Care Beamer Operator Name Role Phone Alvaro Clark MD Unavailable System, Provider Not In Primary Care Provider Un available Iliana Torres MD Unavailable [phone] Reason for Referral * CV Testing (Routine) - Closed Specialty Diagnoses / Procedures Referred By Contac t Referred To Contact Cardiology Diagnoses Urothelial cancer (H) Procedures Echocardiogram Complete ZZHC TTE W/DOPPLER, COMPLETE ZZHC ECHO COMPLETE W DOPPLER W CONTRAST ZZHC ECHO COMPLETE W DOPPLER W/O CONTRAST ZZHC IV PUSH SINGLE, INITIAL SUBSTANCE ZZHC US GUIDE FOR PERICARDIOCENTESIS ZZHC ECHO MYOCARD BX ZZC INJECTION, PERFLUTREN LIPID MICROSPHERES, PER ML ZZHC STATISTIC IV PUSH SINGLE INITIAL SUBSTANCE WV ECHO MYOCARD BX WV INJECTION, PERFLUTREN LIPID MICROSPHERES, PER ML WV TTE W/DOPPLER, COMPLETE WV IV PUSH SINGLE, INITIAL SUBSTANCE WV TTE W/DOPPLER, COMPLETE WV TTE W/DOPPLER, COMPLETE HC US GUIDE FOR PERICARDIOCENTESIS HC ECHO MYOCARD BX HC IV PUSH SINGLE, INITIAL SUBSTANCE HC STATISTIC IV PUSH SINGLE INITIAL SUBSTANCE HC ECHO COMPLETE W DOPPLER W CONTRAST HC ECHO COMPLETE W DOPPLER W/O CONTRAST Iliana Torres MD [address] [facility] [address] [place] [address] [place] [id number] [facility] [address] [place] [address] Referral ID Status Reason Start Date Expiration Date Visits Re quested Visits Authorized [id number] Closed 09/06/2023 09/05/2024 1 1 Reason for Visit * CV Testing (Routine) - Closed Specialty Diagnoses / Procedures Referred By Virgil t Referred To Contact Cardiology Diagnoses Urothelial cancer (H) Procedures Echocardiogram Complete ZZHC TTE W/DOPPLER, COMPLETE ZZHC ECHO COMPLETE W DOPPLER W CONTRAST ZZHC ECHO COMPLETE W DOPPLER W/O CONTRAST ZZHC IV PUSH SINGLE, INITIAL SUBSTANCE ZZHC US GUIDE FOR PERICARDIOCENTESIS ZZHC ECHO MYOCARD BX ZZC INJECTION, PERFLUTREN LIPID MICROSPHERES, PER ML ZZHC STATISTIC IV PUSH SINGLE INITIAL SUBSTANCE WV ECHO MYOCARD BX WV INJECTION, PERFLUTREN LIPID MICROSPHERES, PER ML WV TTE W/DOPPLER, COMPLETE WV IV PUSH SINGLE, INITIAL SUBSTANCE WV TTE W/DOPPLER, COMPLETE WV TTE W/DOPPLER, COMPLETE HC US GUIDE FOR PERICARDIOCENTESIS HC ECHO MYOCARD BX HC IV PUSH SINGLE, INITIAL SUBSTANCE HC STATISTIC IV PUSH SINGLE INITIAL SUBSTANCE HC ECHO COMPLETE W DOPPLER W CONTRAST HC ECHO COMPLETE W DOPPLER W/O CONTRAST Iliana Torres MD [address] [facility] [address] [place] [address] Rh Cv Cardiac Svc Rscc [id number] [employer] [facility] [address] [place] [address] Referral ID Status Reason Start Date Expiration Date Visits Re quested Visits Authorized [id number] Closed 09/06/2023 09/05/2024 1 1 Encounter Details Date Type Department Care Team (Latest Contact Info) Description 09/24/2023 9:30 AM CDT - 09/24/2023 11:59 PM CDT Hospital Encounter [facility] [address] [place] [facility] [address] [place] [address] Iliana Torres MD [address] [place] [address] [address] [place] [address] Urothelial cancer (H) Discharge Disposition: Home or Self Care [...] Take 1 tablet by mouth as needed oxyBUTYnin (DITROPAN) 5 MG tabletIndications:Lesi on of bladder Take 1 tablet (5 mg) by mouth 3 times daily 6 tablet 07/22/2023 11/10/2023 tamsulosin (FLOMAX) 0.4 MG capsuleIndications: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 Take 2 capsules (0.8 mg) by mouth daily 180 capsule 1 06/18/2023 12/11/2023 documented as of this encounter Plan of Treatment Upcoming Encounters Date Type Department Care Team (Late st Contact Info) Description 01/01/2024 9:45 AM CDT Office Visit [place] [address] [facility] [place] [phone] Alvaro Clark MD 420 [facility] [address] [place] [address] 02/26/2024 7:45 AM CDT Lab [place] [address] [place] [address] [place] [phone] Iliana Torres MD [address] [facility] [address] [place] [address] 02/26/2024 8:40 AM CDT Appointment [facility] Imaging [address] [place] [address] [place] [phone] Yessica Mcleod PA-C [address] [place] [address] 03/04/2024 8:00 AM CDT Oncology Visit [facility] [address] [place] [address] [facility] [place] [phone] lIiana Torres MD [address] [facility] [address] [place], [place] [address] documented as of this encounter Procedures Procedure Name Priority Date/Time Associated Diagnosis Comments ECHO WITH MYOCARDIAL STRAIN Routine 09/24/2023 10:59 AM CDT Urothelial cancer (H) documented in this encounter Results * ECHO WITH MYOCARDIAL STRAIN (09/24/2023 10:59 AM CDT) Biplane LVEF 69% CARDIOL OGY RESULTS Anatomical Region Laterality Modality Echocardiography 09/24/2023 9:31 AM CDT Narrative 09/24/2023 11:15 AM CDT [id number]^SUGEY^ILIANA^ONEIDA [facility] [address] [place] [address] Name: ANIKA RICHEY : 1960 Study Date: 09/24/2023 09:31 AM Age: 63 yrs Gender: Male Patient Location: [facility] Reason For Study: Urothelial cancer (H) Ordering Physician: ILIANA TORRES Referring Physician: System, Provider Not In Performed By: Francie Duarte RDCS BSA: 2.0 m2 Height: 67 in Weight: 197 lb HR: 65 BP: 138/77 mmHg Procedure Complete Echo Adult. 3D image acquisition, reconstruction, and real-time interpretation was performed. Interpretation Summary The left ventricle is normal in size. Left ventricular systolic function is normal. Biplane LVEF is 69%. Normal left ventricular wall motion Global peak LV longitudinal strain is averaged at -21.6%. This is within reported normal limits (normal <-18%). The right ventricle is normal in structure, function and size. The study was technically difficult. There is no comparison study available. Left Ventricle The left ventricle is normal in size. There is normal left ventricular wall thickness. Left ventricular systolic function is normal. Left ventricular diastolic function is normal. Global peak LV longitudinal strain is averaged at -21.6%. This is within reported normal limits (normal <-18%). Biplane LVEF is 69%. Normal left ventricular wall motion. Right Ventricle The right ventricle is normal in structure, function and size. Atria Normal left atrial size. Right atrial size is normal. Intact atrial septum. Mitral Valve The mitral valve is normal in structure and function. There is trace mitral regurgitation. Tricuspid Valve The tricuspid valve is normal in structure and function. There is trace tricuspid regurgitation. IVC diameter <2.1 cm collapsing >50% with sniff suggests a normal RA pressure of 3 mmHg. The right ventricular systolic pressure is approximated at 26.6 mmHg plus the right atrial pressure. Right ventricle systolic pressure estimate normal. Aortic Valve The aortic valve is normal in structure and function. No aortic regurgitation is present. No aortic stenosis is present. Pulmonic Valve The pulmonic valve is not well seen, but is grossly normal. There is trace pulmonic valvular regurgitation. Vessels The aortic root is normal size. Pericardium There is no pericardial effusion. Rhythm Sinus rhythm was noted. MMode/2D Measurements & Calculations IVSd: 0.80 cm LVIDd: 5.6 cm LVIDs: 3.7 cm LVPWd: 1.3 cm IVC diam: 1.7 cm FS: 33.8 % LV mass(C)d: 228.6 grams LV mass(C)dI: 113.8 grams/m2 Ao root diam: 3.1 cm LA dimension: 4.0 cm LA/Ao: 1.3 LVOT diam: 2.0 cm LVOT area: 3.2 cm2 Ao root diam index Ht(cm/m): 1.8 Ao root diam index BSA (cm/m2): 1.6 EF Biplane: 68.5 % LA Volume Index (BP): 36.3 ml/m2 RWT: 0.46 Doppler Measurements & Calculations MV E max wang: 67.7 cm/sec MV A max wang: 68.3 cm/sec MV E/A: 0.99 LV IVRT: 0.09 sec MV dec slope: 299.8 cm/sec2 MV dec time: 0.23 sec Ao V2 max: 124.2 cm/sec Ao max P.2 mmHg PA acc time: 0.15 sec TR max wang: 254.3 cm/sec TR max P.6 mmHg E/E': 6.5 Peak E' Wang: 10.4 cm/sec Report approved by: Yasmin Barajas 09/24/2023 11:15 AM Procedure Note Carmelo Cobian MD - 09/24/2023 [id number]^SUGEY^ILIANA^ONEIDA [facility] [address] [place] [address] Name: ANIKA RICHEY : 1960 Study Date: 09/24/2023 09:31 AM Age: 63 yrs Gender: Male Patient Location: [facility] Reason For Study: Urothelial cancer (H) Ordering Physician: ILIANA TORRES Referring Physician: System, Provider Not In Performed By: Francie Duarte RDCS BSA: 2.0 m2 Height: 67 in Weight: 197 lb HR: 65 BP: 138/77 mmHg Procedure Complete Echo Adult. 3D image acquisition, reconstruction, and real-time interpretation was performed. Interpretation Summary The left ventricle is normal in size. Left ventricular systolic function is normal. Biplane LVEF is 69%. Normalleft ventricular wall motion Global peak LV longitudinal strain is averaged at -21.6%. This is within reported normal limits (normal <-18%). The right ventricle is normal in structure, function and size. The study was technically difficult. There is no comparison studyavailable. Left Ventricle The left ventricle is normal in size. There is normal left ventricularwall thickness. Left ventricular systolic function is normal. Leftventricular diastolic function is normal. Global peak LV longitudinal strain isaveraged at -21.6%. This is within reported normal limits (normal <-18%). BiplaneLVEF is 69%. Normal left ventricular wall motion. Right Ventricle The right ventricle is normal in structure, function and size. Atria Normal left atrial size. Right atrial size is normal. Intact atrialseptum. Mitral Valve The mitral valve is normal in structure and function. There is tracemitral regurgitation. Tricuspid Valve The tricuspid valve is normal in structure and function. There is trace tricuspid regurgitation. IVC diameter <2.1 cm collapsing >50% with sniff suggests a normal RA pressure of 3 mmHg. The right ventricular systolic pressure is approximated at 26.6 mmHg plus the right atrial pressure.Right ventricle systolic pressure estimate normal. Aortic Valve The aortic valve is normal in structure and function. No aorticregurgitation is present. No aortic stenosis is present. Pulmonic Valve The pulmonic valve is not well seen, but is grossly normal. There istrace pulmonic valvular regurgitation. Vessels The aortic root is normal size. Pericardium There is no pericardial effusion. Rhythm Sinus rhythm was noted. MMode/2D Measurements & Calculations IVSd: 0.80 cm LVIDd: 5.6 cm LVIDs: 3.7 cm LVPWd: 1.3 cm IVC diam: 1.7 cm FS: 33.8 % LV mass(C)d: 228.6 grams LV mass(C)dI: 113.8 grams/m2 Ao root diam: 3.1 cm LA dimension: 4.0 cm LA/Ao: 1.3 LVOT diam: 2.0 cm LVOT area: 3.2 cm2 Ao root diam index Ht(cm/m): 1.8 Ao root diam index BSA (cm/m2): 1.6 EF Biplane: 68.5 % LA Volume Index (BP): 36.3 ml/m2 RWT: 0.46 Doppler Measurements & Calculations MV E max wang: 67.7 cm/sec MV A max wang: 68.3 cm/sec MV E/A: 0.99 LV IVRT: 0.09 sec MV dec slope: 299.8 cm/sec2 MV dec time: 0.23 sec Ao V2 max: 124.2 cm/sec Ao max P.2 mmHg PA acc time: 0.15 sec TR max wang: 254.3 cm/sec TR max P.6 mmHg E/E': 6.5 Peak E' Wang: 10.4 cm/sec Report approved by: Yasmin Barajas 09/24/2023 11:15 AM Iliana Torres MD CV ECHO ORDERABLES documented in this encounter Visit Diagnoses Diagnosis Urothelial cancer (H) Malignant neoplasm of other specified sites of urinary organs documented in this encounter Care Teams Beamer Operator Relationship Specialty Start Date End Date System, Provider Not In PCP - General Clinic 08/13/23 12/21/23 Alvaro Clark MD [address] [facility] [address] [place], [place] [phone] Assigned Surgical Provider 07/24/23 Iliana Torres MD [address] [facility] [address] [place] [address] Assigned Cancer Care Provider 09/22/23 10/21/23 documented as of this encounter
--- OUTSIDE RECORDS SUMMARY | 2023-12-26 23:09 | XMS_ITS | Encounter Summary ---
Author Organization [place] Address [address] [place] [address] Care Team Providers Care Hand Spring Repairer Name Role Phone Dalila Arrieta Unavailable [phone] System, Provider Not In Primary Care Provider Un available Alvaro Clark MD Unavailable System, Provider Not In Primary Care Provider Un available Ky Torres MD Unavailable [phone] Sixto Whalen APRN SALES FLOOR TEAM LEADER Unavailable [phone] No Ref-Primary, Physician Primary Care Provider Yessica McleodC Unavailable Reason for Visit * Reason Onset Date Comments Patient Request 06/15/2023 Encounter Details Date Type Department Care Team (Late st Contact Info) Description 06/15/2023 [facility] [address] [address] Dalila Arrieta PA [address] [place] [address] [place] [address] Patient Request Social History Tobacco Use Types Packs/Day Years Used Date Smoking Tobacco: Never Assessed Adolescent Education Answer Date Record ed Getting School Help Needed Not on file 06/08 Sex and Gender Information Value Date Recorded Sex Assigned at Not on file Gender Identity Not on file Sexual Orientation Not on file documented as of this encounter Miscellaneous Notes * Telephone Encounter - Pia Caceres - 06/15/2023 10:22 AM CST [facility] Call Center Phone Message May a detailed message be left on voicemail: yes Reason for Call: Other: Pt neelaece Zoraida calling regarding pt upcoming appt for retention. Zoraida states pt is requesting a morning appt if possible. 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 Imaging [address] [place] [address] [place] [phone] Yessica Mcleod PA-C [address] [place], [place] [phone] 03/04/2024 8:00 AM CDT Oncology Visit [address] [place] [phone] Ky Torres MD [address] [id number] documented as of this encounter Visit Diagnoses Not on filedocumented in this encounter Care Teams Hand Spring Repairer Relationship Specialty Start Date End Date System, Provider Not In PCP - General Clinic 07/20/23 07/20/23 System, Provider Not In PCP - General Clinic 08/13/23 12/21/23 No Ref-Primary, Physician PCP - General 12/22/23 Dalila Arrieta PA [address] [place] [address] [place], [place] [address] Assigned Surgical Provider 07/03/23 Alvaro Clark MD [address] [place] [address] [address] [place], [place] [address] Assigned Surgical Provider 07/24/23 Ky Torres MD 420 [facility] [address] [place], [place] [address] Assigned Cancer Care Provider 09/22/23 10/21/23 Sixto Whalen APRN CNP [address] [place] [id number] Assigned Cancer Care Provider 10/22/23 12/21/23 Yessica Mcleod PA-C [address] [place] [phone] Assigned Cancer Care Provider 12/22/23 documented as of this encounter
[2023-12-26 23:10] LABS: Lactate* 0.7 mmol/L (0.5-1.9)
[2023-12-26 23:12] LABS: Basophils Absolute Auto 0.03 K/uL (0.00-0.30); Basophils Percent Auto 0.3 % (0.0-3.0); Eosinophils Absolute Auto 0.24 K/uL (0.00-0.50); Eosinophils Percent Auto 2.3 % (0.0-7.0); Hematocrit 29.5 % (37.0-53.0); Hemoglobin* 9.7 gm/dL (13.5-17.5); Immature Granulocytes Abs Auto 0.18 K/uL (0.00-0.30); Immature Granulocytes Pct Auto 1.7 %; Lymphocytes Percent Auto 9.5 % (20-44); Mean Corpuscular HGB Conc 33 gm/dL (32-36); Mean Corpuscular Hemoglobin 30 pg (26-34); Mean Corpuscular Volume 92 fL (80-100); Monocytes Percent Auto 8.2 % (0.0-11.0); Platelet Count* 280 K/uL (140-440); RDW Coefficient of Variation % 14.5 % (11.5-15.5); White Blood Count* 10.59 K/uL (4.50-11.00)
[2023-12-26 23:17] LABS: Slide Review Reflex No
[2023-12-26 23:26] LABS: Albumin* 3.9 g/dL (3.3-5.0); Chloride* 101 mmol/L (96-114)
[2023-12-26 23:27] LABS: Potassium* 4.1 mmol/L (3.6-5.1); Sodium* 132 mmol/L (135-149)
[2023-12-26 23:29] LABS: Bilirubin Total* 0.5 mg/dL (0.1-1.5); Creatinine* 0.9 mg/dL (0.5-1.5); Estimated Glomerular Filt Rate 95 ml/min
[2023-12-26 23:30] LABS: Alanine Aminotransferase* 23 U/L (4-50); Alkaline Phosphatase* 65 U/L (40-150); Anion Gap 7 mEq/L (7-15); Aspartate Amino Transferase* 34 U/L (12-35); Blood Urea Nitrogen* 24 mg/dL (7-30); Calcium* 8.7 mg/dL (8.4-10.6); Carbon Dioxide* 24 mmol/L (20-32); Glucose* 112 mg/dL (60-115); Total Protein* 6.4 g/dL (6.0-8.3)
[2023-12-26 23:32] LABS: C Reactive Protein* 2.2 mg/dL (0.5-1.0)
[2023-12-26] MEDS: 0.9 % SODIUM CHLORIDE 500 ML 500 ML IV (23:58)
[2023-12-27 00:51] VITALS: BP 134/87; PULSE 93; RESP 16; O2SAT 94
== END 2023-12-27 03:50 | disposition other institution (70) ==
PROVIDERS: Emergency Provider Family Medicine; PCP Family Medicine
DX: K91.30 Postprocedural intestinal obstruction, unspecified as to partial versus complete (principal)
CPT/HCPCS: 36415; 74177; 80053; 82565; 83605; 85025; 86140; 99284; 99285; J7030; Q9967

== ENCOUNTER 2024-01-18 03:14 | Emergency (ER) | payer BC, SELFPAY ==
[2024-01-18 03:19] VITALS: BP 129/89; PULSE 87; RESP 16; TEMP 38.1; O2SAT 97; BMI 23.5
[2024-01-18 03:51] LABS: Lactate* 0.7 mmol/L (0.5-1.9)
[2024-01-18 03:53] LABS: Basophils Percent Auto 0.1 % (0.0-3.0); Eosinophils Percent Auto 0.7 % (0.0-7.0); Hematocrit 29.1 % (37.0-53.0); Hemoglobin* 9.4 gm/dL (13.5-17.5); Immature Granulocytes Pct Auto 0.3 %; Lymphocytes Percent Auto 2.4 % (20-44); Mean Corpuscular HGB Conc 32 gm/dL (32-36); Mean Corpuscular Hemoglobin 29 pg (26-34); Mean Corpuscular Volume 89 fL (80-100); Monocytes Percent Auto 6.8 % (0.0-11.0); Neutrophils Percent Auto 89.7 % (42.0-72.0); Platelet Count* 207 K/uL (140-440); RDW Coefficient of Variation % 12.9 % (11.5-15.5); Red Blood Count 3.27 m/uL (4.30-5.90); White Blood Count* 14.38 K/uL (4.50-11.00)
[2024-01-18 03:54] LABS: Slide Review Reflex No
[2024-01-18] MEDS: 0.9 % SODIUM CHLORIDE 1000 ml 1,000 ML IV (03:58)
[2024-01-18] MEDS: IBUPROFEN 200 MG TABLET 600 MG PO (03:58)
--- OUTSIDE RECORDS SUMMARY | 2024-01-18 03:58 | XMS_ITS | Clinical Summary ---
Author Organization [facility] Address [address] [place] [address] Care Team Providers Care Asbestos Removal Supervisor Name Role Phone Alvaro Clark MD Unavailable Yessica Mcleod PA-C Unavailable Bhavin Gardner Primary Care Provider [phone] Allergies Active Allergy Reactions Criticality Noted Date [...] by mouth daily 19 capsule 4 Active Additional Information Patient not taking.Reported on 01/15/2024 polyethylene glycol (MIRALAX) 17 GM/Dose powderIndications:Posto perative state Take 17 g by mouth daily 510 g 4 Active senna-docusate (SENOKOT-S/PERICOLACE) 8.6-50 MG tabletIndications:Posto perative state Take 1 tablet by mouth 2 times daily 40 tablet 4 Active ciprofloxacin (CIPRO) 250 MG tabletIndications:Uroth elial cancer (H) Take 1 tablet (250 mg) by mouth 2 times daily 1 tablet 4 Active ciprofloxacin (CIPRO) 500 MG tabletIndications:Posto perative state Take 1 tablet (500 mg) by mouth once for 1 dose Take prior to your appointment with Dr Clark for stent removal 1 tablet 4 12/25/19 24 Discontin ued(Stop at Discharge ) Active Problems Problem Noted Date Diagnosed Date Small bowel obstruction 12/27/2023 Bladder cancer 12/22/2023 Urothelial cancer 09/06/2023 Lesion of bladder 07/10/2023 Encounters Date Type Department Care Team Description 01/15/2024 12:40 PM CDT Lab [facility] [address] [place] [address] Urothelial cancer (H) 01/15/2024 11:30 AM CDT Oncology Visit [address] [facility] [place] [address] Ky Torres MD Urothelial cancer (H) (Primary Dx) 01/15/2024 10:30 AM CDT Office Visit [place] [id number] [facility] [place] [address] Alvaro Clark MD Urothelial cancer (H) (Primary Dx) 01/15/[address] [facility] [place] [place] [address] Alvaro Clark MD Symptoms 01/15/2024 Travel 01/15/2024 Orders Only [address] [facility] [place] [address] Charlie Almonte, CARLOS Urothelial cancer (H) (Primary Dx); 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) 01/13/2024 1:02 PM CDT - 01/13/2024 11:59 PM CDT Hospital Encounter [facility] [address] [place] [address] Yessica Mcleod PA-C Urothelial cancer (H); 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) Discharge Disposition: Home or Self Care 01/13/2024 12:45 PM CDT Lab [facility] [address] [place] [address] Alvaro Clark MD Urothelial cancer (H) 01/13/2024 Travel 01/07/[address] [place] [facility] [place] [address] Alvaro Clark MD Medication Request 01/02/2024 Team Conference [facility] [address] 4th [place] [address] Guillaume Brenner MD 01/01/2024 9:45 AM CDT Office Visit [address] [facility] [place] [address] Alvaro Clark MD Urothelial cancer (H) (Primary Dx) 01/01/2024 Travel 12/30/2023 10:12 PM CDT - 12/31/2023 1:28 AM CDT Emergency [facility] Emergency Dept [address] [place] [address] Kandi Morales MD Problem with Isaac catheter, initial encounter (H24) Discharge Disposition: Home or Self Care 12/30/2023 Travel 12/27/2023 4:52 AM CDT - 12/29/2023 1:34 PM CDT Hospital Encounter [facility] Unit 8A Critical access [facility] [place] [address] Fernando Romero MD Discharge Disposition: Home or Self Care 12/26/2023 MyC Medical Advice [facility] [address] [facility] [place] [place] [address] Alvaro Clark MD 12/22/2023 8:00 AM CDT - 12/22/2023 1:00 PM CDT Surgery [facility] [address] [place] [address] Alvaro Clark MD CYSTECTOMY, pelvic node dissection WITH ILEAL NEOBLADDER CREATION 12/22/2023 7:48 AM CDT Anesthesia Event [facility] [address] [place] [address] Alf Olson MD Johnson, Ashley Keryn, CARLOS FUGITIVE INVESTIGATOR 12/22/2023 5:50 AM CDT - 12/25/2023 3:50 PM CDT Hospital Encounter [facility] Unit [address] [place] [address] [place] [address] Alvaro Clark MD Postoperative state (Primary Dx); Bladder cancer (H); Urothelial cancer (H); Lesion of bladder; Post-op pain Discharge Disposition: Home or Self Care 12/11/2023 9:00 AM CDT Lab [facility] [place] [id number] [facility] 1st [place] [phone] Preop examination; 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 (H) 12/11/2023 8:00 AM CDT Office Visit [facility] [address] [place] [address] Rizwana Tejeda, HEATER TENDER FUGITIVE INVESTIGATOR Preop examination (Primary Dx); 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 (H) 12/11/2023 Travel 12/11/2023 PRE VISIT [facility] [address] [place] [address] Rizwana Tejeda, HEATER TENDER FUGITIVE INVESTIGATOR 12/08/2023 PRE VISIT [facility] [address] [address] Rizwana Tejeda, HEATER TENDER FUGITIVE INVESTIGATOR 12/01/2023 MyC Medical Advice [address] [facility] [place] [address] Sabra Wilcox 12/01/2023 Orders Only [address] [facility] [place] [address] Dylan Guerin PA Urothelial cancer (H) (Primary Dx) 11/27/2023 2:30 PM CDT Oncology Visit [address] [place] [facility] [place] [address] Yessica Mcleod PA-C Urothelial cancer (H) (Primary Dx); 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) 11/27/2023 Travel 11/26/2023 Telephone [facility] [address] [place] [address] Alvaro Clark MD Schedule Surgery 11/25/2023 10:58 AM CDT - 11/25/2023 11:59 PM CDT Hospital Encounter [facility] [address] [place] [address] Ky Torres MD Non-Fv Credentialed Provider, Radiology 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) Discharge Disposition: Home or Self Care 11/25/2023 10:56 AM CDT - 11/25/2023 2:17 PM CDT Hospital Encounter [facility] [address] [place] [phone] Non-Fv Credentialed Provider, Radiology Thuan Rodriguez MD Discharge Disposition: Home or Self Care 11/20/2023 11:00 AM CDT Office Visit [facility] [address] [place] [address] [facility] [place] [phone] Alvaro Clark MD Urothelial cancer (H) (Primary Dx) 11/20/2023 Orders Only [facility] [address] 4th [place] [phone] Alvaro Clark MD 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 (H) (Primary Dx) 11/20/2023 Travel 11/18/2023 Orders Only [facility] - Cancer Care Service Line [address] [place] [address] Ky Torres MD 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) (Primary Dx) 11/17/2023 MyC Medical Advice [facility] [address] [facility] [place] [address] Sixto Whalen APRN FUGITIVE INVESTIGATOR 11/10/2023 1:48 PM CDT - 11/10/2023 11:59 PM CDT Hospital Encounter [facility] [address] [facility] [address] [place] [phone] Yessica Mcleod, RONALD Left leg swelling Discharge Disposition: Home or Self Care 11/10/2023 8:30 AM CDT Infusion Therapy Visit [place] [address] [place] [address] Ky Torres MD Urothelial cancer (H) (Primary Dx) 11/10/2023 8:00 AM CDT Oncology Visit [address] [place] [phone] Yessica Mcleod PA-C Urothelial cancer (H) (Primary Dx); Left leg swelling 11/10/2023 7:45 AM CDT Lab [place] [address] [place] [address] Ky Torres MD Urothelial cancer (H) (Primary Dx) 11/10/2023 Travel 10/28/2023 9:00 AM CDT Infusion Therapy Visit [place] [address] [place] [phone] Yessica Mcleod PA-C Urothelial cancer (H) (Primary Dx) 10/27/2023 2:30 PM CDT Virtual Visit [facility] [address] [place] [phone] Sixto Whalen APRN CNP Urothelial cancer (H) (Primary Dx); 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) 10/27/2023 12:30 PM CDT Lab [address] [place] [address] Yessica Mcleod PA-C Urothelial cancer (H) (Primary Dx) 10/27/2023 Travel 10/22/2023 Orders Only [facility] [place] [address] Luma Malcolm George, [facility] 10/21/2023 9:00 AM CDT Ancillary Procedure [facility] [address] [place], [place] [phone] Ky Torres MD Urothelial cancer (H); 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) 10/21/2023 Travel 10/20/2023 Orders Only [facility] Cancer Care Service Line Critical access hospital0 [place] [address] Ky Torres MD Urothelial cancer (H) (Primary Dx); 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) from Last 3 Months Family History Medical [...] Sign Reading Time Taken Comments Blood Pressure 115/68 01/15/2024 10:53 AM CDT Pulse 72 01/15/2024 10:53 AM CDT Temperature 36.2 ??C (97.1 ??F) 01/15/2024 10:53 AM C DT Respiratory Rate 18 01/15/2024 10:53 AM CDT Oxygen Saturation 97% 01/15/2024 10:53 AM CDT Inhaled Oxygen Concentration - - Weight 78.6 kg (173 lb 4.5 oz) 01/15/2024 10:53 AM CDT Height 172.7 cm (5' 7.99) 01/01/2024 9:40 AM CD T Body Mass Index 26.35 01/01/2024 9:40 AM CDT Plan of Treatment Upcoming Encounters Date Type Department Care Team (Late st Contact Info) Description 03/04/2024 8:00 AM CDT Oncology Visit [facility] [address] [facility] [place] [phone] Ky Torres MD [address] [facility] [address] [place] [address] Health Maintenance Due Date Last Done Comments [...] INFLUENZA VACCINE (#1) 2024 LUNG CANCER SCREENING 01/12/2025 01/13/2024 , 11/25/2023, 10/21/2023, Additional history exists GLUCOSE 01/12/2027 01/13/2024, 12/01, 12/28/2023, Additional history exists DTAP/TDAP/TD IMMUNIZATION (4 - [...] this topic Medical Devices Implanted Type Area Fruit Packer Face And Fill Device Identifier Shelf Expiration Date Model / Serial / Lot Port-08/28/2023 Implanted:Qty: 1 on 08/28/2023 by Pipe Hernandez MD Port Right: Chest Wall [id number] 07/29/2026 / / [id number] Stent Ureteral Bulk Plant Agent Diversion 07fr [id number] - [id number] Implanted:Qty: 1 on 12/22/2023 by Alvaro Clark MD at 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) CBC WITH PLATELETS & DIFFERENTIAL Routine 01/13/2024 12:59 PM CDT Urothelial cancer (H) CBC WITH PLATELETS AND DIFFERENTIAL Routine 01/13/2024 12:59 PM CDT Urothelial cancer (H) COMPREHENSIVE METABOLIC PANEL Routine 01/13/2024 12:59 PM CDT Urothelial cancer (H) BASIC METABOLIC PANEL Routine 12/29/2023 7:28 AM CDT CBC WITH PLATELETS Routine 12/29/2023 7: 28 AM CDT PHOSPHORUS Routine 12/28/2023 11:53 AM CDT MAGNESIUM Routine 12/28/2023 11:53 AM CDT BASIC METABOLIC PANEL STAT 12/28/2023 11:53 AM CDT CBC WITH PLATELETS STAT 12/28/2023 11 :53 AM CDT ELECTROLYTE PANEL Routine 12/27/2023 7:3 7 AM CDT BASIC METABOLIC PANEL Routine 12/27/2023 7:37 AM CDT CBC WITH PLATELETS Routine 12/27/2023 7: 37 AM CDT CREATININE FLUID Timed 12/25/2023 10:2 8 AM [...] neoplasm of trigone of urinary bladder (H) [place] COLLECTION VENOUS BLOOD VENIPUNCTURE Routine 10/21/2023 8:38 AM CDT Urothelial cancer (H) 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) from Last 3 Months Results * (ABNORMAL) Urine Culture (01/15/2024 1:11 PM CDT) Culture >100,000 CFU/mL Non lactose fermenting gram negative bacilli(A) 01/16/2024 3:06 PM CDT [facility] Culture >100,000 CFU/mL Non lactose fermenting gram negative bacilli(A) 01/16/2024 3:06 PM CDT [facility] Culture >100,000 CFU/mL Gram positive cocci(A) 01/16/2024 3:06 PM CDT [facility] Culture 10,000-50,000 CFU/mL Lactose fermenting gram negative bacilli(A) 01/16/2024 3:06 PM CDT [facility] Urine URINE SPECIMEN OBTAINED VIA INDWELLING URINARY CATHETER / Unknown Non-blood Collection / Unknown 01/15/2024 1:11 PM CDT 01/15/2024 1:21 PM CDT Narrative [facility] - 01/16/2024 3:06 PM CDT Multiple morphotypes present with no predominant organism. ??Growth consistent with probable contamination during collection. ??Suggest repeat specimen if clinically indicated. Alvaro Clark MD LAB - MICRO GENERAL ORDERABLES [facility] Inf. Diseases Diag. Lab [address] [facility], [address] [place] [phone] * (ABNORMAL) CBC with platelets and differential (01/15/2024 12:50 PM CDT) Only the most recent of4 resultswithin the time period is included. WBC Count 8.2 4.0 - 11.0 10e3/uL 01/15/2024 12:53 PM CDT [facility] RBC Count 3.57(L) 4.40 - 5.90 10e6/uL 01/15/2024 12:53 PM CDT [facility] Hemoglobin 10.2(L) 13.3 - 17.7 g/dL 01/15/2024 12:53 PM CDT [facility] Hematocrit 32.8(L) 40.0 - 53.0 % 01/15/2024 12:53 PM CDT [facility] MCV 92 78 - 100 fL 01/15/2024 12:53 PM CDT [facility] MCH 28.6 26.5 - 33.0 pg 01/15/2024 12:53 PM CDT [facility] MCHC 31.1(L) 31.5 - 36.5 g/dL 01/15/2024 12:53 PM CDT [facility] RDW 12.9 10.0 - 15.0 % 01/15/2024 12:53 PM CDT [facility] Platelet Count 230 150 - 450 10e3/uL 01/15/2024 12:53 PM CDT [facility] % Neutrophils 79 % 01/15/2024 12:53 PM CDT [facility] % Lymphocytes 9 % 01/15/2024 12:53 PM CDT [facility] % Monocytes 6 % 01/15/2024 12:53 PM CDT [facility] % Eosinophils 5 % 01/15/2024 12:53 PM CDT [facility] % Basophils 1 % 01/15/2024 12:53 PM CDT [facility] % Immature Granulocytes 1 % 01/15/2024 12:53 PM CDT [facility] NRBCs per 100 WBC 0 <1 /100 024 12:53 PM CDT [facility] Absolute Neutrophils 6.4 1.6 - 8.3 10e3/uL 01/15/2024 12:53 PM CDT [facility] Absolute Lymphocytes 0.7(L) 0.8 - 5.3 10e3/uL 01/15/2024 12:53 PM CDT [facility] Absolute Monocytes 0.5 0.0 - 1.3 10e3/uL 01/15/2024 12:53 PM CDT [facility] Absolute Eosinophils 0.4 0.0 - 0.7 10e3/uL 01/15/2024 12:53 PM CDT [facility] Absolute Basophils 0.1 0.0 - 0.2 10e3/uL 01/15/2024 12:53 PM CDT [facility] Absolute Immature Granulocytes 0.0 <=0.4 10e3/uL 01/15/2024 12:53 PM CDT [facility] Absolute NRBCs 0.0 10e3/uL 01/15/2024 12:53 PM CDT [facility] Blood STRUCTURE OF LEFT UPPER LIMB / Unknown Venipuncture / Unknown 01/15/2024 12:50 PM CDT 01/15/2024 12:50 PM CDT Alvaro Clark MD LAB - BLOOD ORDERABL [facility] Lab [address] Lab (1st floor, no room number) [place] [address], [place] * CT Chest/Abdomen/Pelvis w Contrast (01/13/2024 1:26 PM CDT) Only the most recent of2 resultswithin the time period is included. Anatomical Region Laterality Modality Abdomen/Pelvis, Chest, SUBRA D CT BODY, UMP CT CHEST, UMP CT ABDOMEN PELVIS, RAD CT Computed Tomography Impressions 01/14/2024 8:24 AM CDT IMPRESSION: 1. ??Interval postoperative changes of cystectomy with ileal neobladder creation. Moderate-sized fluid collections in the left retroperitoneum and left and right pelvic side king, likely postoperative seroma/lymphoceles. Attention on follow-up. 2. ??A 1.0 cm left distal external iliac lymph node has slightly increased in size, nonspecific and may be reactive. Continued attention on follow-up. 3. ??No metastatic disease in the chest or abdomen. 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 Multiplanar reformats were obtained. Dose reduction techniques were used. CONTRAST: 90 mL of Isovue-370 COMPARISON: 11/25/2023 FINDINGS: LUNGS AND PLEURA: Moderate centrilobular emphysema. No pulmonary nodules or masses. No infiltrate or pleural effusion. MEDIASTINUM/AXILLAE: Stable mildly enlarged hilar lymph nodes. For example, a 1 cm right hilar lymph node previously measured 1 cm. No new or enlarging lymph nodes. Right IJ port catheter. No thoracic aortic aneurysm. HEPATOBILIARY: Stable small cysts. No new or enlarging lesions. PANCREAS: Normal. SPLEEN: Normal. ADRENAL GLANDS: Stable nodular thickening of the left adrenal gland with a 1.5 cm stable nodule (3/150). Normal right adrenal gland. KIDNEYS/BLADDER: Interval postoperative changes of cystectomy and ileal neobladder creation. Bilateral ureteral stents. The neobladder is decompressed with a Isaac catheter. A left retroperitoneal fluid collection overlying the left psoas muscle measuring about 7.5 x 4.3 cm (3, image 228), left pelvic side wall fluid collection measuring 7.6 x 4.1 cm (3/265), right pelvic sidewall fluid collection measuring 3.2 x 2.2 cm (3/246) and a small amount of free fluid in the pelvis. These are likely resolving postoperative seroma or lymphoceles. BOWEL: Few borderline dilated loops of small bowel in the right upper quadrant of the abdomen with bowel loops measuring up to 4.2 cm (series 3, image 195-206). Normal appendix. No dilated segments of the colon. Sigmoid diverticulosis. PELVIC ORGANS: Please see discussion above regarding cystectomy with neobladder creation. ADDITIONAL FINDINGS: Pelvic lymphadenectomy. Slight increased size of the left distal external iliac lymph node measuring 1.0 cm (series 3, which 275), previously measuring 0.7 cm. Other stable small pelvic lymph nodes. No abdominal aortic aneurysm. MUSCULOSKELETAL: No suspicious lesions within the bones. 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 Multiplanar reformats were obtained. Dose reduction techniques were used. CONTRAST: 90 mL of Isovue-370 COMPARISON: 11/25/2023 FINDINGS: LUNGS AND PLEURA: Moderate centrilobular emphysema. No pulmonary nodules or masses. No infiltrate or pleural effusion. MEDIASTINUM/AXILLAE: Stable mildly enlarged hilar lymph nodes. For example, a 1 cm right hilar lymph node previously measured 1 cm. No new or enlarging lymph nodes. Right IJ port catheter. No thoracic aortic aneurysm. HEPATOBILIARY: Stable small cysts. No new or enlarging lesions. PANCREAS: Normal. SPLEEN: Normal. ADRENAL GLANDS: Stable nodular thickening of the left adrenal gland with a 1.5 cm stable nodule (3/150). Normal right adrenal gland. KIDNEYS/BLADDER: Interval postoperative changes of cystectomy and ileal neobladder creation. Bilateral ureteral stents. The neobladder is decompressed with a Isaac catheter. A left retroperitoneal fluid collection overlying the left psoas muscle measuring about 7.5 x 4.3 cm (3, image 228), left pelvic side wall fluid collection measuring 7.6 x 4.1 cm (3/265), right pelvic sidewall fluid collection measuring 3.2 x 2.2 cm (3/246) and a small amount of free fluid in the pelvis. These are likely resolving postoperative seroma or lymphoceles. BOWEL: Few borderline dilated loops of small bowel in the right upper quadrant of the abdomen with bowel loops measuring up to 4.2 cm (series 3, image 195-206). Normal appendix. No dilated segments of the colon. Sigmoid diverticulosis. PELVIC ORGANS: Please see discussion above regarding cystectomy with neobladder creation. ADDITIONAL FINDINGS: Pelvic lymphadenectomy. Slight increased size of the left distal external iliac lymph node measuring 1.0 cm (series 3, which 275), previously measuring 0.7 cm. Other stable small pelvic lymph nodes. No abdominal aortic aneurysm. MUSCULOSKELETAL: No suspicious lesions within the bones. IMPRESSION: 1. Interval postoperative changes of cystectomy with ileal neobladder creation. Moderate-sized fluid collections in the left retroperitoneum and left and right pelvic side king, likely postoperative seroma/lymphoceles. Attention on follow-up. 2. A 1.0 cm left distal external iliac lymph node has slightly increased in size, nonspecific and may be reactive. Continued attention on follow-up. 3. No metastatic disease in the chest or abdomen. DAWSON ZAVALETA MD Yessica Haynes PA-C [facility] CT ORDERABLES * (ABNORMAL) Comprehensive metabolic panel (BMP + Alb, Alk Phos, ALT, AST, Total. Bili, TP) (01/13/2024 12:59 PM CDT) Only the most recent of3 resultswithin the time period is included. Sodium 137 135 - 145 mmol/L 01/13/2024 1:24 PM CDT [facility] Potassium 3.9 3.4 - 5.3 mmol/L 01/13/2024 1:24 PM CDT [facility] Carbon Dioxide (CO2) 25 22 - 29 mmol/L 01/13/2024 1:24 PM CDT [facility] Anion Gap 10 7 - 15 mmol/L 01/13/2024 1:24 PM CDT [facility] Urea Nitrogen 15.5 8.0 - 23.0 mg/dL 01/13/2024 1:24 PM CDT [facility] Creatinine 0.87 0.67 - 1.17 mg/dL 01/13/2024 1:24 PM CDT [facility] GFR Estimate >90 >60 mL/min/1.7 3m2 01/13/2024 1:24 PM CDT [facility] Comment:eGFR calculated usin 2020 CKD-EPI equation. Calcium 8.7(L) 8.8 - 10.4 mg/dL 01/13/2024 1:24 PM CDT [facility] Comment:Reference intervals for this test were updated on 12/15/2023 to reflect our healthy population more accurately. There may be differences in the flagging of prior results with similar values performed with this method. Those prior results can be interpreted in the context of the updated reference intervals. Chloride 102 98 - 107 mmol/L 01/13/2024 1:24 PM CDT [facility] Glucose 117(H) 70 - 99 mg/dL 01/13/2024 1:24 PM CDT [facility] Alkaline Phosphatase 67 40 - 150 U/L 01/13/2024 1:24 PM CDT [facility] AST 24 0 - 45 U/L 01/13/2024 1:24 PM CDT [facility] ALT 19 0 - 70 U/L 01/13/2024 1:24 PM CDT [facility] Protein Total 6.0(L) 6.4 - 8.3 g/dL 01/13/2024 1:24 PM CDT [facility] Albumin 3.4(L) 3.5 - 5.2 g/dL 01/13/2024 1:24 PM CDT [facility] Bilirubin Total <0.2 <=1.2 mg/dL 01/13/2024 1:24 PM CDT [facility] Blood VASCULAR PORT AND CATHETER / Unknown IVAD (Port) / Unknown 01/13/2024 12:59 PM CDT 01/13/2024 1:04 PM CDT Alvaro Clark MD LAB - BLOOD ORDERABL [facility] Lab [address] [facility] Lab (1st floor, no room number) [place] [address], [facility] * (ABNORMAL) Basic metabolic panel (12/29/2023 7:28 AM CDT) Only the most recent of7 resultswithin the time period is included. Sodium 135 135 - 145 mmol/L 12/29/2023 8:33 AM CDT [facility] Potassium 4.0 3.4 - 5.3 mmol/L 12/29/2023 8:33 AM CDT [facility] Chloride 101 98 - 107 mmol/L 12/29/2023 8:33 AM CDT [facility] Carbon Dioxide (CO2) 26 22 - 29 mmol/L 12/29/2023 8:33 AM CDT [facility] Anion Gap 8 7 - 15 mmol/L 12/29/2023 8:33 AM CDT [facility] Urea Nitrogen 9.0 8.0 - 23.0 mg/dL 12/29/2023 8:33 AM CDT [facility] Creatinine 0.79 0.67 - 1.17 mg/dL 12/29/2023 8:33 AM CDT [facility] GFR Estimate >90 >60 mL/min/1.7 3m2 12/29/2023 8:33 AM CDT [facility] Comment:eGFR calculated 2020 CKD-EPI equation. Calcium 8.4(L) 8.8 - 10.4 mg/dL 12/29/2023 8:33 AM CDT [facility] Comment:Reference intervals for this test were updated on 12/15/2023 to reflect our healthy population more accurately. There may be differences in the flagging of prior results with similar values performed with this method. Those prior results can be interpreted in the context of the updated reference intervals. Glucose 120(H) 70 - 99 mg/dL 12/29/2023 8:33 AM CDT [facility] Blood BLOOD SPECIMEN / Unknown Venipuncture / Unknown 12/29/2023 7:28 AM CDT 12/29/2023 8:06 AM CDT Krystian Manriquez MD LAB - BLOOD ORDERABL ES [facility] LAB[facility]ORY [facility] Acute Care Lab [address] [place] [address] * (ABNORMAL) CBC with platelets (12/29/2023 7:28 AM CDT) Only the most recent of7 resultswithin the time period is included. WBC Count 8.9 4.0 - 11.0 10e3/uL 12/29/2023 8:12 AM CDT [facility] RBC Count 3.20(L) 4.40 - 5.90 10e6/uL 12/29/2023 8:12 AM CDT [facility] Hemoglobin 9.8(L) 13.3 - 17.7 g/dL 12/29/2023 8:12 AM CDT [facility] Hematocrit 29.9(L) 40.0 - 53.0 % 12/29/2023 8:12 AM CDT [facility] MCV 93 78 - 100 fL 12/29/2023 8:12 AM CDT [facility] MCH 30.6 26.5 - 33.0 pg 12/29/2023 8:12 AM CDT [facility] MCHC 32.8 31.5 - 36.5 g/dL 12/29/2023 8:12 AM CDT [facility] RDW 14.5 10.0 - 15.0 % 12/29/2023 8:12 AM CDT [facility] Platelet Count 291 150 - 450 10e3/uL 12/29/2023 8:12 AM CDT [facility] Blood BLOOD SPECIMEN / Unknown Venipuncture / Unknown 12/29/2023 7:28 AM CDT 12/29/2023 8:06 AM CDT Krystian Manriquez MD LAB - BLOOD ORDERABL ES UR LAB[facility]ATORY [facility] Acute Care Lab [address] [facility], [address] [place] [address] * Phosphorus (12/28/2023 11:53 AM CDT) Only the most recent of2 resultswithin the time period is included. Phosphorus 2.8 2.5 - 4.5 mg/dL 12/28/2023 1:37 PM CDT [facility] Blood STRUCTURE OF RIGHT UPPER LIMB / Unknown Venipuncture / Unknown 12/28/2023 11:53 AM CDT 12/28/2023 12:53 PM CDT Krystian Manriquez MD LAB - BLOOD ORDERABL ES Performing Organization Address City/[facility]/ZIP Co de Phone Number UR LAB[facility]ATORY [facility] Lab [address] [place] [address], [address] [phone] * Magnesium (12/28/2023 11:53 AM CDT) Only the most recent of4 resultswithin the time period is included. Magnesium 2.0 1.7 - 2.3 mg/dL 12/28/2023 1:37 PM CDT [facility] Blood STRUCTURE OF RIGHT UPPER LIMB / Unknown Venipuncture / Unknown 12/28/2023 11:53 AM CDT 12/28/2023 12:53 PM CDT Krystian Manriquez MD LAB - BLOOD ORDERABL ES Performing Organization Address City/[facility] Co de Phone Number UR LABORATORY [facility] [address] [place] [address], [address] [address] * Electrolyte panel (12/27/2023 7:37 AM CDT) Sodium 136 135 - 145 mmol/L 12/27/2023 8:38 AM CDT [facility] Potassium 4.1 3.4 - 5.3 mmol/L 12/27/2023 8:38 AM CDT [facility] Chloride 101 98 - 107 mmol/L 12/27/2023 8:38 AM CDT [facility] Carbon Dioxide (CO2) 25 22 - 29 mmol/L 12/27/2023 8:38 AM CDT [facility] Anion Gap 10 7 - 15 mmol/L 12/27/2023 8:38 AM CDT [facility] Blood STRUCTURE OF LEFT HAND / Unknown Venipuncture / Unknown 12/27/2023 7:37 AM CDT 12/27/2023 8:16 AM CDT Demarcus Persaud MD LAB - BLOOD ORDERABL ES UR LABORATORY [facility] Acute Care Lab [address] [facility], [address] [place] [address] * Creatinine fluid (12/25/2023 10:28 AM CDT) [...] MD LAB - BODY FLUIDS OR DERABLES Performing Organization Address City/[facility] Co de Phone Number [facility] [address] [facility], [address] [place] [address] * (ABNORMAL) Glucose by meter (12/23/2023 6:42 AM CDT) Only the most recent of2 resultswithin the time period is included. GLUCOSE BY METER POCT 118(H) 70 - 99 mg/dL 12/23/2023 6:49 AM CDT [facility] POC Blood, Capillary BLOOD SPECIMEN / Unknown 12/23/2023 6:42 AM CDT 12/23/2023 6:49 AM CDT Alvaro Clark MD LAB - BEAKER POCT [facility] POC [facility] [address] [facility], [address] [place] [address] * Platelet count (12/22/2023 9:55 PM CDT) Platelet Count 179 150 - 450 10e3/uL 12/22/2023 10:12 PM CDT [facility] Blood STRUCTURE OF RIGHT HAND / Unknown IVAD (Port) / Unknown 12/22/2023 9:55 PM CDT 12/22/2023 10:04 PM CDT Alberto Tejeda MD LAB - BLOOD ORDERABL ES [facility] [place] [facility] [address] [facility], [address] [place] [address] * XR Abdomen Port 1 [...] IMG DIAGNOSTIC IMAGI NG ORDERABLES * (ABNORMAL) Surgical Pathology Exam (12/22/2023 8:54 AM CDT) Case Report Surgical Pathology Report ? Case: [id number] ? Authorizing Provider: ??Alvaro Clark MD ?Collected: ? 12/22/2023 08:54 AM ? Ordering Location: ? [facility] ? Received: ?12/22/2023 09:00 AM ? Pathologist: ? Marlin Tenorio MD ? Intraop: ? Tracie Gonzalez MD ? Specimens: ?? A) - Ureter, Left, Left distal ureteral margin ? B) - Ureter, Right, Right distal ureteral margin ? C) - Urethra, urethral margin ? D) - Urinary Bladder, bladder, prostate, and seminal vesicles ? E) - Lymph Node(s), Pelvis, Left, Left pelvic lymph node ? F) - Lymph Node(s), Pelvis, Right, right pelvic lymph nodes ? G) - Ureter, Left, left proximal ureteral margin ? H) - Ureter, Right, right proximal ureteral marigin ? 4 6:31 PM CDT [facility] Final Diagnosis A. Left distal urete r margin, excision: - Negative for malignancy B. Right distal ureter margin, excision: - Negative for malignancy C. Urethral margin, excision: - Negative for malignancy D. Bladder and prostate, radical cystoprostatectomy: - Invasive high grade urothelial carcinoma status post chemotherapy - Transmucosal prostatic stroma involvement by tumor. Please see comment - Incidental prostatic adenocarcinoma, Ellen score 7 (3+4) - Margins are negative for carcinoma - Please see synoptic reports for detail E. Left pelvic lymph nodes, excision: - 5 benign lymph nodes F. Right pelvic lymph nodes, excision: - 4 benign lymph nodes G. Left proximal ureter margin, excision: - Negative for malignancy H. Right proximal ureter margin, excision: - Negative for malignancy (no ureteric tissue identified) 4 6:31 PM CDT [facility] Comment:This is an appended report. These results have been appended to a previously preliminary verified report. Comment Immunohistochemistry analysis of CK5 and CHARLIE-3 was performed and supports the above diagnosis of invasion urothelial carcinoma. 4 6:31 PM CDT [facility] Comment:This is an appended report. These results have been appended to a previously preliminary verified report. Synoptic Checklist URINARY BLADDER: Cystectomy, Anterior Exenteration URINARY BLADDER: CYSTECTOMY, ANTERIOR EXENTERATION - All Specimens 8th Edition - Protocol posted: 02/18/2023 SPECIMEN ?? Procedure: ?Radical cystoprostatectomy TUMOR ?? Tumor Site: ?Prostatic stroma adjoining urethra ?? Histologic Type: ?Urothelial carcinoma, invasive (conventional) ?? Histologic Grade: ?High-grade ?? Tumor Size: ?Greatest Dimension (Centimeters): 0.5 cm ?? Tumor Extent: ?Invades lamina propria (subepithelial connective tissue) ?? Lymphatic and / or Vascular Invasion: ?Not identified MARGINS ?? Margin Status for Invasive Tumor: ?All margins negative for invasive tumor ?? Margin Status for Carcinoma in Situ / Noninvasive Papillary Urothelial Carcinoma: ?All margins negative for carcinoma in situ / noninvasive papillary urothelial carcinoma REGIONAL LYMPH NODES ?? Regional Lymph Node Status: ? : ?All regional lymph nodes negative for tumor ? Number of Lymph Nodes Examined: ?9 pTNM CLASSIFICATION (AJCC 8th Edition) ?? Reporting of pT, pN, and (when applicable) pM categories is based on information available to the pathologist at the time the report is issued. As per the AJCC (Chapter 1, 8th Ed.) it is the managing physician? s responsibility to establish the final pathologic stage based upon all pertinent information, including but potentially not limited to this pathology report. ?? Modified Classification: ?y ?? pT Category: ?pT2 ?? pN Category: ?pN0 ?? Comment(s): ?There is transurethral mucosal involvment of tumor to the prostatic stroma. Consequently, the tumor was staged as pT2 PROSTATE GLAND: Radical Prostatectomy PROSTATE GLAND: RADICAL PROSTATECTOMY - All Specimens 8th Edition - Protocol posted: 02/18/2023 SPECIMEN ?? Procedure: ?Radical cystoprostatectomy TUMOR ?? Histologic Type: ?Acinar adenocarcinoma, conventional (usual) ?? Histologic Grade: ? Grade: ?Grade group 2 (Ellen Score 3 + 4 = 7) ?? Intraductal Carcinoma (IDC): ?Not identified ?? Treatment Effect: ?Not identified ?? TUMOR QUANTITATION: ? Estimated Percentage of Prostate Involved by Tumor: ?1 - 5% Extraprostatic Extension (EPE): ?Not identified Urinary Bladder Neck Invasion: ?Not identified Seminal Vesicle Invasion: ?Not identified Lymphatic and / or Vascular Invasion: ?Not Identified Perineural Invasion: ?Present MARGINS Margin Status: ?All margins negative for invasive carcinoma REGIONAL LYMPH NODES Regional Lymph Node Status: ? : ?All regional lymph nodes negative for tumor ?? Number of Lymph Nodes Examined: ?9 pTNM CLASSIFICATION (AJCC 8th Edition) ?? Reporting of pT, pN, and (when applicable) pM categories is based on information available to the pathologist at the time the report is issued. As per the AJCC (Chapter 1, 8th Ed.) it is the managing physician? s responsibility to establish the final pathologic stage based upon all pertinent information, including but potentially not limited to this pathology report. Modified Classification: ?y pT Category: ?pT2 pN Category: ?pN0 4 6:31 PM CDT [facility] Clinical Information Procedure: CYSTECTOMY, pelvic node dissection WITH ILEAL NEOBLADDER CREATION possible ileal conduit Pre-op Diagnosis: 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 (H) [C67.9] Post-op Diagnosis: C67.9 - 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 (H) [ICD-10-CM] 4 6:31 PM CDT [facility] Comment:This is an appended report. These results have been appended to a previously preliminary verified report. Intraoperative Consultation A(1). Ureter, Left, Left distal ureteral margin: AFS1: Negative for malignancy John Carey MD on 12/22/2023 at 9:15 AM Intra op performed at:[facility], [facility], [address] [place] [address], [address] Intra-op Dx verbally delivered to Dr. Amber Tanner(2). Ureter, Right, Right distal ureteral margin: BFS1: Negative for malignancy John Carey MD on 12/22/2023 at 9:27 AM Intra op performed at:[facility], [facility], [address] [place] [address], [address] [id number] Intra-op Dx verbally delivered to Dr. Amber Segura(3). Urethra, urethral margin: CFS1: - No evidence of malignancy Tracie Gonzalez MD on 12/22/2023 at 10:41 AM Intra op performed at:[facility], [facility], [address] [place] [address], [address] [id number] Intra-op Dx verbally delivered to Dr. Clark 4 6:31 PM CDT [facility] Gross Description A(1). Ureter, Left, Left distal ureteral margin: The specimen is received fresh with proper patient identification labeled left distal ureteral margin. The specimen consists of a 0.3 x 0.2 x 0.1 cm piece of red-brown soft tissue, which is entirely submitted for frozen section and subsequently in cassette A1FS. B(2). Ureter, Right, Right distal ureteral margin: The specimen is received fresh with proper patient identification labeled right distal ureteral margin. The specimen consists of a 0.4 x 0.3 x 0.2 cm piece of red-brown soft tissue, which is entirely submitted for frozen section and subsequently in cassette B1FS. C(3). Urethra, urethral margin: The specimen is received fresh with proper patient identification labeled urethral margin. The specimen consists of 2 pieces of red-calderon soft tissue measuring 0.3 and 1.0 cm in greatest dimension, which are entirely submitted for frozen section and subsequently in cassette C1FS. D(4). Urinary Bladder, bladder, prostate, and seminal vesicles: The specimen is received fresh with proper patient identification labeled bladder, prostate, and seminal vesicles. The specimen consists of a cystoprostatectomy specimen to include bladder (6.1 x 5.5 x 4.5 cm), prostate (3.1 cm apex to base, 3.2 cm anterior to posterior, 4.2 cm transverse), right ureter (0.5 x 0.2), left ureter (0.7 x 0.4), right seminal vesicle (3.0 x 1.1 x 0.4), left seminal vesicle (2.1 x 1.5 x 0.3), and attached adipose tissue. The anterior surface is inked blue, and the posterior surface is inked black. The specimen is opened to reveal a 4.0 x 1.5 cm denuded area predominantly in the left trigone extending to the bladder neck and focally into the right trigone. The mass is focally hemorrhagic and comes to within 0.2 cm of the prostate, 3.0 cm of the urethral margin, 0.5 cm of both ureter margins. No deep extension of the mass is identified. The mass comes to within 1.0 cm of the left seminal vesicles and vas deferens. The mass comes to within 1.5 cm of the posterior wall and 2.5 cm of the left lateral wall. The remainder of the bladder surface is edematous with no further lesions identified. The prostate appears unremarkable with no distinct nodules identified. The attached adipose tissue is sectioned to reveal no mass deposits or lymph nodes. [employer] sections are submitted. Gross photography is taken. D1-urethral margin, en face D2-right ureter margin, en face D3-left ureter margin, en face D4-lesion to right ureteral orifice D5-lesion to left ureteral orifice U5-Z26-xjuima from dome to trigone L21-fifyvc to seminal vesicles V79-wgtlg lateral wall K50-racwzors bladder wall J45-fbvj Y64-Z46-amjum prostatic apex C85-M16-xxhy prostatic apex D23-mid prostate, right anterior D24-mid prostate, left posterior D25-mid prostate, left anterior D26-mid prostate, left posterior A65-oqcy prostate, right anterior C35-nbdf prostate, right posterior O99-ypnm prostate, mid S59-iean prostate, left anterior O78-bpkl prostate, left posterior E(5). Lymph Node(s), Pelvis, Left, Left pelvic lymph node: The specimen is received in formalin with proper patient identification, labeled left pelvic lymph node. The specimen consists of a 5.5 x 5.0 x 2.1 cm aggregate of yellow-calderon fibroadipose tissue, which contains 6 pink-calderon possible lymph nodes ranging in size from 0.5 to 3.2 cm in greatest dimension. All possible lymph nodes are submitted. E1-2 intact possible lymph nodes E2-intact possible lymph node V3-S9-qqvehtao possible lymph node Y4-C5-jzcjbnpx possible lymph node O7-U36-flphqcyi sectioned possible lymph node F(6). Lymph Node(s), Pelvis, Right, right pelvic lymph nodes: The specimen is received in formalin with proper patient identification, labeled right pelvic lymph nodes. The specimen consists of a 6.3 x 4.5 x 2.5 cm aggregate of yellow-calderon fibroadipose tissue, which contains 4 pink-calderon possible lymph nodes ranging in size from 1.0 to 4.5 cm in greatest dimension. All possible lymph nodes are submitted. F1-2 intact possible lymph nodes F2-bisected possible lymph node X5-P7-tyuxnkux sectioned possible lymph node G(7). Ureter, Left, left proximal ureteral margin: The specimen is received in formalin with proper patient identification, labeled left proximal ureteral margin. The specimen consists of an unknown oriented pink-calderon segment of possible ureter measuring 0.6 cm in length by 0.3 cm in diameter surrounded by yellow-calderon fibroadipose tissue. The specimen is bisected and entirely submitted in cassette G1. H(8). Ureter, Right, right proximal ureteral marigin: The specimen is received in formalin with proper patient identification, labeled right proximal ureteral margin. The specimen consists of a 0.4 x 0.2 cm piece of pink-calderon fibromembranous tissue. The ureter with a lumen is not identified. The specimen is entirely submitted in cassette H1. 4 6:31 PM CDT [facility] Comment:This is an appended report. These results have been appended to a previously preliminary verified report. Microscopic Description Microscopic description is performed 4 6:31 PM CDT [facility] Comment:This is an appended report. These results have been appended to a previously preliminary verified report. MCRS Yes(A) N/A 4 6:31 PM CDT [facility] Comment:This is an appended report. These results have been appended to a previously preliminary verified report. Performing Labs The technical component of this testing was completed at [facility]. Stain controls for all stains resulted within this report have been reviewed and show appropriate reactivity. 4 6:31 PM CDT [facility] Comment:This is an appended report. These results have been appended to a previously preliminary verified report. Case Images 4 6:31 PM CDT [facility] Tissue STRUCTURE OF LEFT URETER / Unknown 12/22/2023 8:54 AM CDT 12/22/2023 9:00 AM CDT Tissue specimen (specimen) STRUCTURE OF RIGHT URETER / Unknown 12/22/2023 9:00 AM CDT 12/22/2023 9:14 AM CDT Tissue specimen (specimen) URETHRAL STRUCTURE / Unknown 12/22/2023 10:16 AM CDT 12/22/2023 10:21 AM CDT Tissue specimen (specimen) URINARY BLADDER STRUCTURE / Unknown 12/22/2023 10:24 AM CDT 12/22/2023 2:16 PM CDT Tissue specimen (specimen) PELVIC LYMPH NODE STRUCTURE / Unknown 12/22/2023 10:29 AM CDT 12/22/2023 3:05 PM CDT Tissue specimen (specimen) PELVIC LYMPH NODE STRUCTURE / Unknown 12/22/2023 10:30 AM CDT 12/22/2023 3:05 PM CDT Tissue specimen (specimen) STRUCTURE OF LEFT URETER / Unknown 12/22/2023 12:36 PM CDT 12/22/2023 3:05 PM CDT Tissue specimen (specimen) STRUCTURE OF RIGHT URETER / Unknown 12/22/2023 12:56 PM CDT 12/22/2023 3:05 PM CDT Alvaro SPEARS [facility] Specialty Lab [address] [facility] [address], [address] [place] [address], [facility] [address] [facility] [address], [address] [place] [address], [facility] * ANE AIRWAY ETT PERFORMABLE (12/22/2023 8:02 AM CDT) Narrative Nessa Pereira APRN SUPERVISOR PACKING ROOM - 12/22/2023 8:02 AM CDT Nessa Pereira APRN SUPERVISOR PACKING ROOM ? 12/22/2023 ??8:22 AM Airway ? Patient location during procedure: OR ? Procedure Start/Stop Times: 12/22/2023 8:02 AM Staff - ? SUPERVISOR PACKING ROOM: Nessa Pereira APRN SUPERVISOR PACKING ROOM ? Performed By: CRNAIndications and Patient Condition [...] Time: 12/22/2023 8:02 AM Alf Olson MD [place] ANESTHESIA * Adult Type and Screen (12/22/2023 6:47 AM CDT) Only the most recent of2 resultswithin the time period is included. ABO/RH(D) A NEG 12/22/2023 6:16 AM CDT U BLOOD BANK Antibody Screen Negative Negative 12/22/2023 6:16 AM CDT U BLOOD BANK SPECIMEN EXPIRATION DATE [id number] 12/22/2023 6:16 AM CDT BLOOD BANK Blood STRUCTURE OF RIGHT HAND / Unknown Venipuncture / Unknown 12/22/2023 6:47 AM CDT 12/22/2023 6:56 AM CDT Alvaro Clark MD LAB - BLOOD BANK LICHA T ORDER Performing Organization Address City/State/[facility] Co de Phone Number BLOOD BANK [address] [place] [address] * US Lower Extremity Venous Duplex Left [...] extremity. KANDI MCCLAIN DO Yessica Haynes PA-C IMKeo US ORDERABLES * (ABNORMAL) Manual Differential (11/10/2023 7:33 AM CDT) Only the most recent of2 resultswithin the time period is included. % [...] [facility] Toxic Neutrophils Present(A) None Seen 8:10 AM CDT [facility] Blood BLOOD SPECIMEN / Unknown IVAD (Port) / Unknown 11/10/2023 7:33 AM CDT 11/10/2023 7:42 AM CDT Yessica Haynes PA-C LAB - B LOOD ORDERABLES [facility] Acute Care Lab [address] Lab (1st floor, no room number) [place] [address], [facility] * PET Oncology (Eyes to Thighs) [...] Advance Directives For more information, please contact: [phone] * Full Code (Latest Code Status on File) Date Activated Date Inactivated Comments 12/27/2023 5:11 AM 12/29/2023 3:34 PM All basic an d advanced life-sustaining interventions are performed as appropriate Question Answer Comments Code status determined by: Discussion with saw nt/ legal decision maker * Full Code Date Activated Date Inactivated Comments 12/22/2023 8:50 PM 12/25/2023 5:51 PM All basic an d advanced life-sustaining interventions are performed as appropriate Question Answer Comments Code status determined by: Discussion with andriye nt/ legal decision maker Care Teams Asbestos Removal Supervisor Relationship Specialty Start Date End Date [address] [place] [address] PCP - General Family Medicine 12/28/23 Alvaro Clark MD [address] [facility] [address] [place], [place] [address] Assigned Surgical Provider 07/24/23 Yessica Mcleod PAJannetC [address] [place] [id number] Assigned Cancer Care Provider 12/22/23
--- OUTSIDE RECORDS SUMMARY | 2024-01-18 03:59 | XMS_ITS | Encounter Summary ---
Author Organization [place] Address [address] [place] [address] Care Team Providers Care Lab Rn Name Role Phone Alvaro Clark MD Unavailable Yessica Mlceod PA-C Unavailable Bhavin Gardner Primary Care Provider [phone] Reason for Visit * Reason Comments Oncology Clinic Visit Encounter Details Date Type Department Care Team (Late st Contact Info) Description 01/15/2024 10:30 AM CDT Office Visit [facility] [address] [place] [address] [facility] [place] [phone] Alvaro Clark MD 420 [facility] [address] [place] [address] Urothelial cancer (H) (Primary Dx) [...] Time Taken Comments Blood Pressure 115/68 01/15/2024 10:33 AM CDT Pulse 72 01/15/2024 10:33 AM CDT Temperature 36.2 ??C (97.1 ??F) 01/15/2024 10:33 AM C DT Respiratory Rate 18 01/15/2024 10:33 AM CDT Oxygen Saturation 97% 01/15/2024 10:33 AM CDT Inhaled Oxygen Concentration - - Weight 78.6 kg (173 lb 3.2 oz) 01/15/2024 10:33 AM CDT Height - - Body Mass Index 26.34 01/01/2024 9:40 AM CDT documented in this encounter Progress Notes * Alvaro Clark MD - 01/15/2024 10:30 AM CDT Urology Clinic HPI Oleg Richard is a 63 year old male with history of bladder cancer status post radical cystoprostatectomy and creation of a neobladder, here for follow-up. The patient denies any significant issues since her last visit. PHYSICAL EXAM BP 115/68 Pulse 72 Temp 97.1 ??F (36.2 ??C) (Tympanic) Resp 18 Wt 78.6 kg (173 lb 3.2 oz) SpO2 97% BMI 26.34 kg/m?? Constitutional: AO, pleasant, NAD Resp: Non-labored breathing on room air Abd: Soft, NT, ND : Isaac catheter in place draining clear urine with small amount of mucus in the tube Ext [facility] Labs Lab Results Component Value Date WBC 8.3 01/13/2024 Lab Results Component Value Date RBC 3.26 01/13/2024 Lab Results Component Value Date HGB 9.3 01/13/2024 Lab Results Component Value Date HCT 29.6 01/13/2024 No components found for: MCT Lab Results Component Value Date MCV 91 01/13/2024 Lab Results Component Value Date MCH 28.5 01/13/2024 Lab Results Component Value Date MCHC 31.4 01/13/2024 Lab Results Component Value Date RDW 12.9 01/13/2024 Lab Results Component Value Date PLT 252 01/13/2024 Last Comprehensive Metabolic Panel: Sodium Date Value Ref Range Status 01/13/2024 137 135 - 145 mmol/L Final Potassium Date Value Ref Range Status 01/13/2024 3.9 3.4 - 5.3 mmol/L Final Chloride Date Value Ref Range Status 01/13/2024 102 98 - 107 mmol/L Final Carbon Dioxide (CO2) Date Value Ref Range Status 01/13/2024 25 22 - 29 mmol/L Final Anion Gap Date Value Ref Range Status 01/13/2024 10 7 - 15 mmol/L Final Glucose Date Value Ref Range Status 01/13/2024 117 (H) 70 - 99 mg/dL Final 10/21/2023 85 70 - 99 mg/dL Final GLUCOSE BY METER POCT Date Value Ref Range Status 12/23/2023 118 (H) 70 - 99 mg/dL Final Urea Nitrogen Date Value Ref Range Status 01/13/2024 15.5 8.0 - 23.0 mg/dL Final Creatinine Date Value Ref Range Status 01/13/2024 0.87 0.67 - 1.17 mg/dL Final GFR Estimate Date Value Ref Range Status 01/13/2024 >90 >60 mL/min/1.73m2 Final Comment: eGFR calculated using 2020 CKD-EPI equation. Calcium Date Value Ref Range Status 01/13/2024 8.7 (L) 8.8 - 10.4 mg/dL Final Comment: Reference intervals for this test were updated on 12/15/2023 to reflect our healthy population more accurately. There may be differences in the flagging of prior results with similar values performed with this method. Those prior results can be interpreted in the context of the updated reference intervals. Bilirubin Total Date Value Ref Range Status 01/13/2024 <0.2 <=1.2 mg/dL Final Alkaline Phosphatase Date Value Ref Range Status 01/13/2024 67 40 - 150 U/L Final ALT Date Value Ref Range Status 01/13/2024 19 0 - 70 U/L Final AST Date Value Ref Range Status 01/13/2024 24 0 - 45 U/L Final PSA Tumor Marker Date Value Ref Range Status 08/04/2023 3.47 0.00 - 4.50 ng/mL Final ASSESSMENT AND PLAN 63 year old male for followup of ypT3a urothelial carcinoma the bladder status post cystoprostatectomy and neobladder also incidental finding of intermediate risk prostate cancer. He was randomized to antibiotic arm of the UTI study Plan Catheter and stents were removed CIC teaching today Start Kegels exercises Follow-up with Dr. Torres as scheduled 30 total minutes spent on the date of the encounter including direct interaction with the patient, performing chart review, documentation and further activities as noted above Alvaro Clark MD Department of Urology [facility] documented in this encounter Nursing Notes * Lori Portillo CMA - 01/15/2024 10:30 AM CDT Oncology Rooming Note January 15, 2024 10:35 AM Oleg Richard is a 63 year old male who presents for: Chief Complaint Patient presents with Oncology Clinic Visit Initial Vitals: BP 115/68 Pulse 72 Temp 97.1 ??F (36.2 ??C) (Tympanic) Resp 18 Wt 78.6 kg (173 lb 3.2 oz) SpO2 97% BMI 26.34 kg/m?? Estimated body mass index is 26.34 kg/m?? as calculatedfrom the following: Height as of 01/01/24: 1.727 m (5' 7.99). Weight as of this encounter: 78.6 kg (173 lb 3.2 oz). Body surface area is 1.94 meters squared. No Pain (0) Comment: Data Unavailable No LMP for male patient. Allergies reviewed: Yes Medications reviewed: Yes Medications: Medication refills not needed today. Pharmacy name entered into [facility]: [place], [place] - [address] [place] [address] Frailty Screening: Is the patient here for a new oncology consult visit in cancer care? 2. No Clinical concerns: f/u Lori Portillo CMA documented in this encounter Plan of Treatment Upcoming Encounters Date Type Department Care Team (Late st Contact Info) Description 03/04/2024 8:00 AM CDT Oncology Visit [facility] [address] [place] [address] [facility] [place] [address] Ky Torres MD 420 [facility] [address] [place] [address] documented as of this encounter Visit Diagnoses Diagnosis Urothelial cancer (H)- Primary Malignant neoplasm of other specified sites of urinary organs documented in this encounter Care Teams Lab Rn Relationship Specialty Start Date End Date Votel, Bhavin Ford [address] [place] [address] PCP - General Family Medicine 12/28/23 Alvaro Clark MD [address] [place] [address] Assigned Surgical Provider 07/24/23 Yessica Mcleod PA-C [address] [place] [address] Assigned Cancer Care Provider 12/22/23 documented as of this encounter
--- OUTSIDE RECORDS SUMMARY | 2024-01-18 03:59 | XMS_ITS | Encounter Summary ---
Author Organization [facility] Address [address] [place] [address] Care Team Providers Care Sap Bw Consultant Name Role Phone Alvaro Clark MD Unavailable Yessica Mcleod PA-C Unavailable Bhavin Gardner Primary Care Provider [phone] Reason for Visit * Reason Comments Oncology Clinic Visit Post opBladder can cer Encounter Details Date Type Department Care Team (Late st Contact Info) Description 01/01/2024 9:45 AM CDT Office Visit [facility] [address] [place] [address] [facility] [place] [phone] Alvaro Clark MD 420 [facility] [address] [place] [address] Urothelial cancer (H) (Primary Dx) [...] Sign Reading Time Taken Comments Blood Pressure 113/69 01/01/2024 9:40 AM CDT Pulse 98 01/01/2024 9:40 AM CDT Temperature 37.1 ??C (98.8 ??F) 01/01/2024 9:40 AM CD T Respiratory Rate 20 01/01/2024 9:40 AM CDT Oxygen Saturation 98% 01/01/2024 9:40 AM CDT Inhaled Oxygen Concentration - - Weight 80.8 kg (178 lb 1.6 oz) 01/01/2024 9:40 A M CDT Height 172.7 cm (5' 7.99) 01/01/2024 9:40 AM CD T Body Mass Index 27.09 01/01/2024 9:40 AM CDT documented in this encounter Progress Notes * Alvaro Clark MD - 01/01/2024 9:45 AM CDT Urology Clinic HPI Oleg Richard is a 63 year old male with history of muscle invasive urothelial carcinoma the bladder status post neoadjuvant chemotherapy and radical cystoprostatectomy and creation of neobladder on 12/22/2023, here for follow-up. Oleg was readmitted to the hospital with postoperative ileus which was managed conservatively. He also had an ER visit 2 nights ago for catheter drainage issue which was manage easily in the emergency room. His brother had been doing his pouch irrigation for him. They do it twice a day. He reportsreturn of bowel function and good appetite. He denies any nausea or vomiting or fever. He is overall doing well. His mother and his friend are present during this visit. PHYSICAL EXAM BP 113/69 Pulse 98 Temp 98.8 ??F (37.1 ??C) (Temporal) Resp 20 Ht 1.727 m (5' 7.99) Wt 80.8 kg (178 lb 1.6 oz) SpO2 98% BMI 27.09 kg/m?? Constitutional: AO, pleasant, NAD Resp: Non-labored breathing on room air Abd: Soft, NT, ND, incisions healing well : Catheter in place, the pouch was irrigated with 200 cc of normal saline with return of almost 30 cc of mucus. Extremities: [facility] Labs Lab Results Component Value Date WBC 8.9 12/29/2023 Lab Results Component Value Date RBC 3.20 12/29/2023 Lab Results Component Value Date HGB 9.8 12/29/2023 Lab Results Component Value Date HCT 29.9 12/29/2023 No components found for: MCT Lab Results Component Value Date MCV 93 12/29/2023 Lab Results Component Value Date MCH 30.6 12/29/2023 Lab Results Component Value Date MCHC 32.8 12/29/2023 Lab Results Component Value Date RDW 14.5 12/29/2023 Lab Results Component Value Date PLT 291 12/29/2023 Last Comprehensive Metabolic Panel: Sodium Date Value Ref Range Status 12/29/2023 135 135 - 145 mmol/L Final Potassium Date Value Ref Range Status 12/29/2023 4.0 3.4 - 5.3 mmol/L Final Chloride Date Value Ref Range Status 12/29/2023 101 98 - 107 mmol/L Final Carbon Dioxide (CO2) Date Value Ref Range Status 12/29/2023 26 22 - 29 mmol/L Final Anion Gap Date Value Ref Range Status 12/29/2023 8 7 - 15 mmol/L Final Glucose Date Value Ref Range Status 12/29/2023 120 (H) 70 - 99 mg/dL Final 10/21/2023 85 70 - 99 mg/dL Final GLUCOSE BY METER POCT Date Value Ref Range Status 12/23/2023 118 (H) 70 - 99 mg/dL Final Urea Nitrogen Date Value Ref Range Status 12/29/2023 9.0 8.0 - 23.0 mg/dL Final Creatinine Date Value Ref Range Status 12/29/2023 0.79 0.67 - 1.17 mg/dL Final GFR Estimate Date Value Ref Range Status 12/29/2023 >90 >60 mL/min/1.73m2 Final Comment: eGFR calculated using 2020 CKD-EPI equation. Calcium Date Value Ref Range Status 12/29/2023 8.4 (L) 8.8 - 10.4 mg/dL Final Comment: [...] 08/04/2023 3.47 0.00 - 4.50 ng/mL Final Surgical pathology Final Diagnosis A. Left distal ureter margin, excision: - Negative for malignancy B. [...] Negative for malignancy (no ureteric tissue identified) Comments: This is an appended report. These results have been appended to a previously preliminary verified report. Comment UUMAYOImmunohistochemistry analysis of CK5 and CHARLIE-3 was performed and supports the above diagnosis of invasion urothelial carcinoma. Comment: This is an appended report. These results have been appended to a previously preliminary verified report.Synoptic Checklist URINARY BLADDER: Cystectomy, Anterior Exenteration 8th Edition - Protocol posted: 02/18/2023URINARY BLADDER: CYSTECTOMY, ANTERIOR EXENTERATION - All Specimens SPECIMEN Procedure Radical cystoprostatectomy TUMOR Tumor Site Prostatic stroma adjoining urethra Histologic Type Urothelial carcinoma, invasive (conventional) Histologic Grade High-grade Tumor Size Greatest Dimension (Centimeters): 0.5 cm Tumor Extent Invades lamina propria (subepithelial connective tissue) Lymphatic and / or Vascular Invasion Not identified MARGINS Margin Status for Invasive Tumor All margins negative for invasive tumor Margin Status for Carcinoma in Situ / Noninvasive Papillary Urothelial Carcinoma All margins negative for carcinoma in situ / noninvasive papillary urothelial carcinoma REGIONAL LYMPH NODES Regional Lymph Node Status All regional lymph nodes negative for tumor Number of Lymph Nodes Examined 9 pTNM CLASSIFICATION (AJCC 8th Edition) Reporting of pT, pN, and (when applicable) pM categories is based on information available to the pathologist at the time the report is issued. As per the AJCC (Chapter 1, 8th Ed.) it is the managingphysician???s responsibility to establish the final pathologic stage based upon all pertinent information, including but potentially not limited to this pathology report. Modified Classification y pT Category pT2 pN Category pN0 Comment(s) There is transurethral mucosal involvment of tumor to the prostatic stroma. Consequently, the tumor was staged as pT2 . PROSTATE GLAND: Radical Prostatectomy 8th Edition - Protocol posted: 3PROSTATE GLAND: RADICAL PROSTATECTOMY - All Specimens SPECIMEN Procedure Radical cystoprostatectomy TUMOR Histologic Type Acinar adenocarcinoma, conventional (usual) Histologic Grade Grade Grade group 2 (Ellen Score 3 + 4 = 7) Intraductal Carcinoma (IDC) Not identified Treatment Effect Not identified TUMOR QUANTITATION Estimated Percentage of Prostate Involved by Tumor 1 - 5% Extraprostatic Extension (EPE) Not identified Urinary Bladder Neck Invasion Not identified Seminal Vesicle Invasion Not identified Lymphatic and / or Vascular Invasion Not Identified Perineural Invasion Present MARGINS Margin Status All margins negative for invasive carcinoma REGIONAL LYMPH NODES Regional Lymph Node Status All regional lymph nodes negative for tumor Number of Lymph Nodes Examined 9 pTNM CLASSIFICATION (AJCC 8th Edition) Reporting of pT, pN, and (when applicable) pM categories is based on information available to the pathologist at the time the report is issued. As per the AJCC (Chapter 1, 8th Ed.) it is the managingphysician???s responsibility to establish the final pathologic stage based upon all pertinent information, including but potentially not limited to this pathology report. Modified Classification y pT Category pT2 pN Category pN0 . Imaging No new imaging to review today ASSESSMENT AND PLAN 63 year old male for followup of yPT2 urothelial carcinoma the bladder and incidental intermediate risk prostate cancer status post neoadjuvant chemotherapy followed by radical cystoprostatectomy andcreation of neobladder on 12/22/2023 doing well We discussed the pathology findings and the role of adjuvant immunotherapy in preventing disease recurrence. I will refer him to Dr. Torres to discuss adjuvant nivolumab. He is agreeable. Plan Follow-up on 01/15/2024 for catheter and stent removal and CIC teaching with CBC, BMP, and urine culture prior Schedule a visit with Dr. Torres on the same day 40 total minutes spent on the date of the encounter including direct interaction with the patient, performing chart review, documentation and further activities as noted above Alvaro Clark MD Department of Urology [facility] documented in this encounter Nursing Notes * Veronica Hidalgo MA - 01/01/2024 9:45 AM CDT Oncology Rooming Note January 01, 2024 9:43 AM Oleg Richard is a 63 year old male who presents for: Chief Complaint Patient presents with Oncology Clinic Visit Post op Bladder cancer Initial Vitals: BP 113/69 Pulse 98 Resp 20 Ht 1.727 m (5' 7.99) Wt 80.8 kg (178 lb 1.6 oz) SpO2 98% BMI 27.09 kg/m?? Estimated body mass index is 27.09 kg/m?? as calculated from the following: Height as of this encounter: 1.727 m (5' 7.99). Weight as of this encounter: 80.8 kg (178 lb 1.6 oz). Body surface area is 1.97 meters squared. No Pain (1) Comment: Data Unavailable No LMP for male patient. Allergies reviewed: Yes Medications reviewed: Yes Medications: Medication refills not needed today. Pharmacy name entered into [facility]: [place], [place] - [address] [place] [address] Frailty Screening: Is the patient here for a new oncology consult visit in cancer care? 2. No Clinical concerns: Post op Veronica Hidalgo MA documented in this encounter Miscellaneous Notes * Addendum Note - Charlie Almonte RN - 01/01/2024 9:45 AM CDTAddended by: CHARLIE ALMONTE on: 01/14/2024 03:52 PM Modules accepted: Orders documented in this encounter Plan of Treatment Upcoming Encounters Date Type Department Care Team (Late st Contact Info) Description 03/04/2024 8:00 AM CDT Oncology Visit [facility] [address] [place] [address] [facility] [place] [phone] Ky Torres MD [address] [address] documented as of this encounter Results * (ABNORMAL) Comprehensive metabolic panel (BMP + Alb, Alk Phos, ALT, AST, Total. Bili, TP) (01/13/2024 12:59 PM CDT) Sodium 137 135 - 145 mmol/L 01/13/2024 [...] 1:24 PM CDT [facility] Comment:eGFR calculated us2020 CKD-EPI equation. Calcium 8.7(L) 8.8 - 10.4 [...] MD LAB - BLOOD ORDERABL ES LABORATORY [facility] Acute Care Lab [address] [facility] Lab (1st floor, no room number) [place] [address], [facility] documented in this encounter Visit Diagnoses Diagnosis Urothelial cancer (H)- Primary Malignant neoplasm of other specified sites of urinary organs documented in this encounter Care Teams Sap Bw Consultant Relationship Specialty Start Date End Date Votel, Bhavin Ford [address] [place] [address] PCP - General Family Medicine 12/28/23 Alvaro Clark MD [address] [place] [address] Assigned Surgical Provider 07/24/23 Yessica Mcleod, [address] [place] [address] Assigned Cancer Care Provider 12/22/23 documented as of this encounter
--- OUTSIDE RECORDS SUMMARY | 2024-01-18 03:59 | XMS_ITS | Encounter Summary ---
Author Organization [facility] Address [address] [place] [address]. [place] [address] Care Team Providers Care Disability Examiner Name Role Phone Alvaro Clark MD Unavailable Yessica Mcleod PA-C Unavailable Bhavin Gardner Primary Care Provider [phone] Reason for Visit * Reason Comments Blood Draw CBC, CMP Encounter Details Date Type Department Care Team (Late st Contact Info) Description 01/13/2024 12:[address] [facility] [id number] [place] [address] [address] [place] [address] Alvaro Clark MD 420 [facility] [address] [place] [address] Urothelial cancer (H) Social History Tobacco Use [...] as of this encounter Progress Notes * Cheyenne Celeste, RN - 01/13/2024 12:45 PM CDT Nursing Note: Oleg Richard presents today for labs. Patient seen by provider today: No Sleeve Ironer present during visit today: Not Applicable. Note: N/A. Intravenous Access: Labs drawn without difficulty. Implanted Port. Discharge Plan: Patient was sent to imaging for CT Cheyenne Celeste RN documented in this encounter Miscellaneous Notes * Addendum Note - Cheyenne Celeste RN - 01/13/2024 12:45 PM CDTAddended by: CHEYENNE CELESTE on: 01/13/2024 01:44 PM Modules accepted: Orders documented in this encounter Plan of Treatment Upcoming Encounters Date Type Department Care Team (Late st Contact Info) Description 03/04/2024 8:00 AM CDT Oncology Visit [address] [facility] [place] [phone] Ky Torres MD [address] [place] [address] documented as of this encounter Procedures Procedure Name Priority Date/Time Associated Diagnosis Comments CBC WITH PLATELETS AND DIFFERENTIAL Routine 01/13/2024 12:59 PM CDT Urothelial cancer (H) CBC WITH PLATELETS & DIFFERENTIAL Routine 01/13/2024 12:59 PM CDT Urothelial cancer (H) COMPREHENSIVE METABOLIC PANEL Routine 01/13/2024 12:59 PM CDT Urothelial cancer (H) documented in this encounter Results * (ABNORMAL) CBC with platelets and differential (01/13/2024 12:59 PM CDT) WBC Count 8.3 4.0 - 11.0 10e3/uL 01/13/2024 1:08 PM CDT [facility] RBC Count 3.26(L) 4.40 - 5.90 10e6/uL 01/13/2024 1:08 PM CDT [facility] Hemoglobin 9.3(L) 13.3 - 17.7 g/dL 01/13/2024 1:08 PM CDT [facility] Hematocrit 29.6(L) 40.0 - 53.0 % 01/13/2024 1:08 PM CDT [facility] MCV 91 78 - 100 fL 01/13/2024 1:08 PM CDT [facility] MCH 28.5 26.5 - 33.0 pg 01/13/2024 1:08 PM CDT [facility] MCHC 31.4(L) 31.5 - 36.5 g/dL 01/13/2024 1:08 PM CDT [facility] RDW 12.9 10.0 - 15.0 % 01/13/2024 1:08 PM CDT [facility] Platelet Count 252 150 - 450 10e3/uL 01/13/2024 1:08 PM CDT [facility] % Neutrophils 75 % 01/13/2024 1:08 PM CDT [facility] % Lymphocytes 11 % 01/13/2024 1:08 PM CDT [facility] % Monocytes 8 % 01/13/2024 1:08 PM CDT [facility] % Eosinophils 6 % 01/13/2024 1:08 PM CDT [facility] % Basophils 1 % 01/13/2024 1:08 PM CDT [facility] % Immature Granulocytes 1 % 01/13/2024 1:08 PM CDT [facility] NRBCs per 100 WBC 0 <1 /100 024 1:08 PM CDT [facility] Absolute Neutrophils 6.2 1.6 - 8.3 10e3/uL 01/13/2024 1:08 PM CDT [facility] Absolute Lymphocytes 0.9 0.8 - 5.3 10e3/uL 01/13/2024 1:08 PM CDT [facility] Absolute Monocytes 0.6 0.0 - 1.3 10e3/uL 01/13/2024 1:08 PM CDT [facility] Absolute Eosinophils 0.5 0.0 - 0.7 10e3/uL 01/13/2024 1:08 PM CDT [facility] Absolute Basophils 0.0 0.0 - 0.2 10e3/uL 01/13/2024 1:08 PM CDT [facility] Absolute Immature Granulocytes 0.1 <=0.4 10e3/uL 01/13/2024 1:08 PM CDT [facility] Absolute NRBCs 0.0 10e3/uL 01/13/2024 1:08 PM CDT [facility] Blood VASCULAR PORT AND CATHETER / Unknown IVAD (Port) / Unknown 01/13/2024 12:59 PM CDT 01/13/2024 1:04 PM CDT Alvaro Clark MD LAB - BLOOD ORDERABL ES [facility] [address] [facility] Lab (1st floor, no room number) [place] [address] * (ABNORMAL) Comprehensive metabolic panel (BMP + [...] PM CDT [facility] Comment:eGFR calculated usin g 2020 CKD-EPI equation. Calcium 8.7(L) 8.8 - [...] MD LAB - BLOOD ORDERABL ES LABORATORY [facility] [address] [facility] Lab (1st floor, no room number) [place] [address] documented in this encounter Visit Diagnoses Diagnosis Urothelial cancer (H) Malignant neoplasm of other specified sites of urinary organs documented in this encounter Administered Medications Inactive Administered Medications - up to 3 most recent administrations Medication Order MAR Action Action Date Dose Rate Site heparin lock flush 100 unit/mL injection 500 Units 500 Units, Intracatheter, ONCE, On Thu01/13/24 at 1300, For 1 dose $Given 01/13/2024 1:38 PM CDT 500 Units sodium chloride (PF) 0.9% PF flush 10 mL 10 mL, Intravenous, ONCE, On Thu01/13/24 at 1345, For 1 dose $Given 01/13/2024 1:37 PM CDT 10 mLs sodium chloride (PF) 0.9% PF flush 20 mL 20 mL, Intravenous, ONCE, On Thu01/13/24 at 1300, For 1 dose $Given 01/13/2024 12:59 PM CDT 20 mLs documented in this encounter Care Teams Disability Examiner Relationship Specialty Start Date End Date Votel, Bhavin Ford [address] [place] [address] PCP - General Family Medicine 12/28/23 Alvaro Clark MD [address] [place] [address] Assigned Surgical Provider 07/24/23 Yessica Mcleod PA-C [address] [place] [address] Assigned Cancer Care Provider 12/22/23 documented as of this encounter
--- OUTSIDE RECORDS SUMMARY | 2024-01-18 03:59 | XMS_ITS | Encounter Summary ---
Author Organization [facility] Address [address] [place] [address] Care Team Providers Care C Software Developer Name Role Phone Alvaro Clark MD Unavailable Yessica Mcleod PA-C Unavailable VoteBhavin ferrara Primary Care Provider [phone] Encounter Details Date Type Department Care Team (Latest Contact Info) Description 12/30/2023 Travel Social History Tobacco Use Types Packs/Day [...] Description 03/04/2024 8:00 AM CDT Oncology Visit [facility] [address] [place] [address] DR VILLA 200 [facility] [place] [address] Ky Torres MD 420 [facility] 480 [place], [place] 658785 documented as of this encounter Visit Diagnoses Not on filedocumented in this encounter Care Teams C Software Developer Relationship Specialty Start Date End Date DaoteBhavin ferrara [address] [place] [address] PCP - General Family Medicine 12/28/23 Alvaro Clark MD [address] [place] [address] [phone] Assigned Surgical Provider 07/24/23 Yessica Mcleod PA-C [address] [place] [address] [phone] Assigned Cancer Care Provider 12/22/23 documented as of this encounter
--- OUTSIDE RECORDS SUMMARY | 2024-01-18 03:59 | XMS_ITS | Encounter Summary ---
Author Organization [place] Address [address] [place] [address] Care Team Providers Care Digital Media Associate Name Role Phone Alvaro Clark MD Unavailable Yessica Mcleod PA-C Unavailable VoteBhavin ferrara Primary Care Provider [phone] Encounter Details Date Type Department Care Team (Latest Contact Info) Description 01/15/2024 Travel Social History Tobacco Use Types Packs/Day [...] Description 03/04/2024 8:00 AM CDT Oncology Visit [facility] [address] [place] [address] [address]A 200 [facility] [place] [address] Ky Torres MD 420 [facility] 480 [place], [place] 383495 documented as of this encounter Visit Diagnoses Not on filedocumented in this encounter Care Teams Digital Media Associate Relationship Specialty Start Date End Date DaoteBhavin ferrara [address] [place] [address] PCP - General Family Medicine 12/28/23 Alvaro Clark MD [address] [place] [address] [phone] Assigned Surgical Provider 07/24/23 Yessica Mcleod PA-C [address] [place] [address] [phone] Assigned Cancer Care Provider 12/22/23 documented as of this encounter
--- OUTSIDE RECORDS SUMMARY | 2024-01-18 03:59 | XMS_ITS ---
Author Organization [place] Address [address] [place] [address] Care Team Providers Care Reed Or Wind Instrument Tuner Name Role Phone Alvaro Clark MD Unavailable Yessica Mcleod PA-C Unavailable Bhavin Gardner Primary Care Provider [phone] Active Problems Problem Noted Date Diagnosed Date Small bowel obstruction 12/27/2023 Bladder cancer 12/22/2023 Urothelial cancer 09/06/2023 Lesion of bladder 07/10/2023 Current Oncology Plans OP ONC Bladder Cancer - Nivolumab* Plan Start Date:01/15/2024 Plan Provider:Ky Torres MD Linked Problems Urothelial cancer (H) Treatment Medications Current Day (Day 1 , Cycle 1 - Planned for 01/15/2024) Next Day (Day 1, Cycle 2 - Planned for 02/12/2024) nivolumab (OPDIVO)nivolumab 480 mg in 100 mL NS infusion (LOCKED DOSE) nivolumab (OPDIVO) 480 mg in sodium chloride 0.9 % 148 mL infusion nivolumab (OPDIVO) 480 mg in sodium chloride 0.9 % 148 mL infusion Past Plans ONCOLOGY TREATMENT Plan Name Start Date Discontinue Date Treatment Medications Discontinue Reason Plan Provider Cycles OP ONC Bladder Cancer - Accelerated Methotrexate / vinBLAStine / DOXOrubicin / CISplatin (A-MVAC) 4 01/15/2024 CISplatin (PLATINOL) infusionDOXOrubicin (ADRIAMYCIN)methotrex atevinBLAStine (VELBAN) infusion Therapy Complete Ky Torres MD 4 of 4 cycles started Radiation Treatments * No radiation treatments are documented for this patient in [facility]. Treatments may have been administered in another system. Lifetime Dose Tracking * Chemical Lifetime Dose Automatic Entry Manual Entr y Doxorubicin 117.077 mg/m2 (240 mg) 117.077 mg/m2 (240 mg) 0 mg/m2 (0 mg) Total Air Kerma 2 mGy 2 mGy 0 mGy Fluoro Time 0.3 Minutes 0.3 Minutes 0 Minutes
--- OUTSIDE RECORDS SUMMARY | 2024-01-18 03:59 | XMS_ITS | Encounter Summary ---
Author Organization [place] Address [address] [place] [address] Care Team Providers Care Top Frame Maker Name Role Phone Alvaro Clark MD Unavailable Yessica Mcleod PA-C Unavailable Bhavin Gardner Primary Care Provider [phone] Encounter Details Date Type Department Care Team (Late st Contact Info) Description 01/02/2024 Team Conference [facility] [address] 4th [place] [address] Guillaume Brenner MD [address] [place] [address] Social History Tobacco Use Types Packs/Day [...] encounter Miscellaneous Notes * Telephone Encounter - Guillaume Brenner MD - 01/02/2024 3:38 PM CDT Patient called regarding extreme abdominal pain. Not having bowel movements, feels like needs to pas gas/poop but unable to do so. Been using stool softeners. Continues to have no N/V, appropriate PO intake, denies fevers or chills. Discussed redflag sxs above. Would encourage fluids and stool softners. If pain progresses, develops fevers, chills, N/V, inability to intake PO, low UOP, should go to ED. So far the pain is controlled at home and will manage conservatively for now. Guillaume Brenner MD Chief Urology Resident, PGY-5 documented in this encounter Plan of Treatment Upcoming Encounters Date Type Department Care Team (Late st Contact Info) Description 03/04/2024 8:00 AM CDT Oncology Visit [facility] [address] [place] [address] 200 [facility] [place] [address] Ky Torres MD 420 [facility] 480 [place], [place] 789615 documented as of this encounter Visit Diagnoses Not on filedocumented in this encounter Care Teams Top Frame Maker Relationship Specialty Start Date End Date Votel, Bhavin Ford [address] [place] [address] PCP - General Family Medicine 12/28/23 Alvaro Clark MD 420 [facility] 394 [place], [place] [phone] Assigned Surgical Provider 07/24/23 Yessica Mcleod PAJannetC 909 [place] [address] Assigned Cancer Care Provider 12/22/23 documented as of this encounter
--- OUTSIDE RECORDS SUMMARY | 2024-01-18 03:59 | XMS_ITS | Encounter Summary ---
Author Organization [place] Address [address] [place] [address] Care Team Providers Care Otr Owner Operator Truck Driver Name Role Phone Alvaro Clark MD Unavailable Yessica Mcleod PA-C Unavailable Bhavin Garnder Primary Care Provider [phone] Encounter Details Date Type Department Care Team (Late st Contact Info) Description 01/15/2024 12:40 PM CDT Lab [facility] [address] [place] [address] Urothelial cancer (H) Social History Tobacco Use [...] Description 03/04/2024 8:00 AM CDT Oncology Visit [facility] [address]A 200 [facility] [place] [phone] Ky Torres MD 420 [facility] 480 [place] [address] documented as of this encounter Procedures Procedure Name Priority Date/Time Associated Diagnosis Comments CBC WITH PLATELETS AND DIFFERENTIAL Routine 01/15/2024 12:50 PM CDT Urothelial cancer (H) CBC WITH PLATELETS & DIFFERENTIAL Routine 01/15/2024 12:50 PM CDT Urothelial cancer (H) documented in this encounter Results * (ABNORMAL) Urine Culture (01/15/2024 1:11 [...] - MICRO GENERAL ORDERABLES [facility] Inf. Diseases Diag. Lab 500 [facility], Room D297 [place] [address] * (ABNORMAL) CBC with platelets and differential (01/15/2024 12:50 PM CDT) WBC Count 8.2 4.0 - 11.0 10e3/uL [...] LAB - BLOOD ORDERABL ES RH LABORATORY [facility] [address] Lab (1st floor, no room number) [place] [address] documented in this encounter Visit Diagnoses Diagnosis Urothelial cancer (H) Malignant neoplasm of other specified sites of urinary organs documented in this encounter Care Teams Otr Owner Operator Truck Driver Relationship Specialty Start Date End Date Votel, Bhavin Ford [address] [place] [address] PCP - General Family Medicine 12/28/23 Alvaro Clark MD [address] [place] [address] Assigned Surgical Provider 07/24/23 Yessica Mcleod PA-C [address] [place] [address] Assigned Cancer Care Provider 12/22/23 documented as of this encounter
--- OUTSIDE RECORDS SUMMARY | 2024-01-18 03:59 | XMS_ITS | Encounter Summary ---
Author Organization [facility] Address [address] [place] [address] Care Team Providers Care Capacitor Assembler Name Role Phone Alvaro Clark MD Unavailable Yessica Mcleod PA-C Unavailable Bhavin Gardner Primary Care Provider [phone] Encounter Details Date Type Department Care Team (Late st Contact Info) Description 01/15/2024 Orders Only [facility] [address] 200 [facility] [place] [address] Charlie Almonte, RN Urothelial cancer (H) (Primary Dx); Malignant neoplasm [...] as of this encounter Miscellaneous Notes * Addendum Note - Charlie Almonte RN - 01/15/2024 10:21 AM CDTAddended by: CHARLIE ALMONTE on: 01/15/2024 11:28 AM Modules accepted: Orders documented in this encounter Plan of Treatment Upcoming Encounters Date Type Department Care Team (Late st Contact Info) Description 03/04/2024 8:00 AM CDT Oncology Visit [facility] [address] [place] [address] 200 [facility] [place] [address] Ky Torres MD 420 [facility] 480 [place] [address] Scheduled Orders Name Type Priority Associated Diagnoses Orde r Schedule Basic metabolic panel (Ca, Cl, CO2, Creat, Gluc, K, Na, BUN) Lab Add-On Urothelial cancer (H) Expected: 01/15/2024 (Approximate), Expires: 01/14/2025 documented as of this encounter Visit Diagnoses Diagnosis Urothelial cancer (H)- Primary Malignant neoplasm of other specified sites of urinary organs 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
--- OUTSIDE RECORDS SUMMARY | 2024-01-18 03:59 | XMS_ITS | Encounter Summary ---
Author Organization [place] Address [address] [place] [address] Care Team Providers Care Industrial Seamstress Name Role Phone Alvaro Clark MD Unavailable Yessica Mcleod PA-C Unavailable Bhavin Gardner Primary Care Provider [phone] Reason for Visit * Reason Onset Date Comments Symptoms 01/15/2024 Encounter Details Date Type Department Care Team (Late st Contact Info) Description 01/15/[address] [facility] [place] [address] Alvaro Clark MD 420 [facility] 394 [place] [address] Symptoms Social History Tobacco Use [...] Description 03/04/2024 8:00 AM CDT Oncology Visit [address] 200 [facility] [place] [address] Ky Torres MD 420 [facility] 480 [place], [place] [phone] documented as of this encounter Visit Diagnoses Not on filedocumented in this encounter Care Teams Industrial Seamstress Relationship Specialty Start Date End Date VotelBhavin [address] [place] [address] PCP - General Family Medicine 12/28/23 Alvaro Clark MD 420 [facility] 394 [place] [address] Assigned Surgical Provider 07/24/23 Yessica Mcleod, PAJannetC 909 [place] [address] Assigned Cancer Care Provider 12/22/23 documented as of this encounter
--- OUTSIDE RECORDS SUMMARY | 2024-01-18 03:59 | XMS_ITS | Encounter Summary ---
Author Organization [place] Address [address] [place] [address] Care Team Providers Care Personnel Scheduler Name Role Phone Alvaro Clark MD Unavailable Yessica Mcleod PA-C Unavailable Bhavin Gardner Primary Care Provider [phone] Reason for Visit * Reason Onset Date Comments Medication Request 01/07/2024 Encounter Details Date Type Department Care Team (Late st Contact Info) Description 01/07/2024 Telephone [facility] [address] [place] [address] [address] 200 [facility] [place] [address] Alvaro Clark MD 420 [facility] 394 [place] [address] Medication Request Social History Tobacco Use Types Packs/Day [...] Telephone Encounter - Jami Oseguera RN - 01/07/2024 11:32 AM CDT Pt is calling. He is running out of normal saline for his pouch irrigation. He was given a supply of normal salinewhen he was discharged from the hospital, but it is running out. He will need refill by tomorrow. He talked with [facility] in [place] and was told that new Rx would need to be sent there. It is scheduled to be removed on 01/15/2024, so pt states that he only need enough for about one week. Will route to Dr Clark and [facility] for follow up. Jami Oseguera RN on 01/07/2024 at 11:35 AM documented in this encounter Plan of Treatment Upcoming Encounters Date Type Department Care Team (Late st Contact Info) Description 03/04/2024 8:00 AM CDT Oncology Visit [address] 200 [facility] [place] [address] Ky Torres MD [address] [place] [address] [phone] documented as of this encounter Visit Diagnoses Not on filedocumented in this encounter Care Teams Personnel Scheduler Relationship Specialty Start Date End Date VotelBhavin [address] [place] [address] PCP - General Family Medicine 12/28/23 Alvaro Clark MD [address] [place] [address] 394 [place], [place] [phone] Assigned Surgical Provider 07/24/23 Yessica Mcleod PA-C [address] [place] [address] Assigned Cancer Care Provider 12/22/23 documented as of this encounter
--- OUTSIDE RECORDS SUMMARY | 2024-01-18 03:59 | XMS_ITS | Encounter Summary ---
Author Organization [facility] Address [address] [place] [address] Care Team Providers Care Clinic Physician Director Name Role Phone Alvaro Clark MD Unavailable Yessica Mcleod PA-C Unavailable Bhavin Gardner Primary Care Provider Reason for Visit * Reason Comments Oncology Clinic Visit Encounter Details Date Type Department Care Team (Late st Contact Info) Description 01/15/2024 11:30 AM CDT Oncology Visit [address] 200 [facility] [place] [address] Ky Torres MD 420 [facility] 480 [place] [address] Urothelial cancer (H) (Primary Dx) [...] 4.5 oz) 01/15/2024 10:53 AM CDT Height - - Body Mass Index 26.35 01/01/2024 9:40 AM CDT documented in this encounter Plan of Treatment Upcoming Encounters Date Type Department Care Team (Late st Contact Info) Description 03/04/2024 8:00 AM CDT Oncology Visit [facility] [address] [place] [address] [address] [facility] [place] [address] Ky Torres MD 420 [facility] 480 [place] [address] documented as of this encounter Procedures Procedure Name Priority Date/Time Associated Diagnosis Comments URINE CULTURE Routine 01/15/2024 1:11 PM CDT Urothelial cancer (H) documented in [...] - MICRO GENERAL ORDERABLES [facility] Inf. Diseases Diag. Lab 500 [facility], Room D297 [place] [address], [facility] documented in this encounter Visit Diagnoses Diagnosis Urothelial cancer (H)- Primary Malignant neoplasm of other specified sites of urinary organs documented in this encounter Care Teams Clinic Physician Director Relationship Specialty Start Date End Date Votel, Bhavin Ford [address] [place] [address] PCP - General Family Medicine 12/28/23 Alvaro Clark MD [address] [place] [address] [phone] Assigned Surgical Provider 07/24/23 Yessica Mcleod PA-C [address] [place] [address] Assigned Cancer Care Provider 12/22/23 documented as of this encounter
--- OUTSIDE RECORDS SUMMARY | 2024-01-18 03:59 | XMS_ITS | Encounter Summary ---
Author Organization [facility] Address [address] [place] [address]. [place] [address] Care Team Providers Care Video Specialist Name Role Phone Alvaro Clark MD Unavailable No Ref-Primary, Physician Primary Care Provider Yessica Mcleod PA-C Unavailable Bhavin Gardner Primary Care Provider [phone] Reason for Visit * Auth/Cert (Routine) Specialty Diagnoses / Procedures Referred By Virgil t Referred To Contact Med Surg Diagnoses Post-op complications with small bowel obstruction Small bowel obstruction (H) Ur 8a Med Surg [address] [place] [id number] Referral ID Status Reason Start Date Expiration Date Visits Re quested Visits Authorized [id number] 1 1 Encounter Details Date Type Department Care Team (Latest Contact Info) Description 12/27/2023 4:52 AM CDT - 12/29/2023 1:34 PM CDT Hospital Encounter [facility] [address] [place] [address] Fernando Romero MD [address] [place] [address] [address] [place], [place] [id number] Discharge Disposition: Home or Self Care Social [...] Sign Reading Time Taken Comments Blood Pressure 136/79 12/29/2023 11:17 AM CDT Pulse 81 12/29/2023 11:17 AM CDT Temperature 36.4 ??C (97.6 ??F) 12/29/2023 1 1:17 AM CDT Respiratory Rate 16 12/29/2023 11:1 7 AM CDT Oxygen Saturation 96% 12/29/2023 11: 17 AM CDT Inhaled Oxygen Concentration - - Weight 87.5 kg (192 lb 14.4 oz) 12/27/2023 5:00 AM CDT Height 172.7 cm (5' 8) 12/27/2023 5:00 AM CDT Body Mass Index 29.33 12/27/2023 5:00 AM CDT documented in this encounter Discharge Summaries * Krystian Manriquez MD - 12/29/2023 10:02 AM CDT [facility] Urology Discharge Summary Date of Admission: 12/27/2023 Date of Discharge: 12/29/2023 Admission Diagnosis: Post-op complications with postoperative ileus Discharge Diagnosis: 1. Same as above Consultations: None Procedures: Brief HPI: Oleg Richard is a 63 year old year old male recently had cystectomy and neobladder.He is here withileus. Hospital Course: The patient was managed conservatively, all electrolytes balanced, and hydrated. Patient amublated,and had ROBF. He was tolerating regular food, and feels much better. On 12/29/2023 the patient was discharged to home. Discharge Physical Exam: BP 112/69 (BP Location: Right arm) Pulse 84 Temp 98 ??F (36.7 ??C) (Oral) Resp 16 Ht 1.727 m (5' 8) Wt 87.5 kg (192 lb 14.4 oz) SpO2 95% BMI 29.33 kg/m?? See progress note from same day for DC exam Meds: Review of your medicines CONTINUE these medicines which have NOT CHANGED Dose / Directions acetaminophen 325 MG tablet Commonly known as: TYLENOL Used for: Postoperative state, Post-op pain Dose: 650 mg Take 2 tablets (650 mg) by mouth every 4 hours as needed for other (For optimal non-opioid multimodal pain management to improve pain control.) Quantity: 50 tablet Refills: 0 acetaminophen-caffeine 500-65 MG Tabs Commonly known as: EXCEDRIN TENSION HEADACHE Dose: 2 tablet Take 2 tablets by mouth every 6 hours as needed for mild pain (PRN HEADACHE) Refills: 0 apixaban ANTICOAGULANT 2.5 MG tablet Commonly known as: ELIQUIS Indication: DVT-PE Prophylaxis Used for: Postoperative state Dose: 2.5 mg Take 1 tablet (2.5 mg) by mouth 2 times daily Quantity: 58 tablet Refills: 0 BENADRYL ALLERGY PO Dose: 1 tablet Take 1 tablet by mouth as needed Refills: 0 gabapentin 100 MG capsule Commonly known as: NEURONTIN Used for: Postoperative state, Post-op pain Dose: 100 mg Take 1 capsule (100 mg) by mouth 3 times daily as needed for other (post op pain) Quantity: 14 capsule Refills: 0 methocarbamol 750 MG tablet Commonly known as: ROBAXIN Used for: Postoperative state, Post-op pain Dose: 750 mg Take 1 tablet (750 mg) by mouth every 6 hours as needed for muscle spasms Quantity: 14 tablet Refills: 0 nitroFURantoin macrocrystal-monohydrate 100 MG capsule Commonly known as: MACROBID Indication: Preventative Medication Therapy Used Around Surgery Used for: Postoperative state Dose: 100 mg Take 1 capsule (100 mg) by mouth daily Quantity: 19 capsule Refills: 0 polyethylene glycol 17 GM/Dose powder Commonly known as: MIRALAX Used for: Postoperative state Dose: 17 g Take 17 g by mouth daily Quantity: 510 g Refills: 0 senna-docusate 8.6-50 MG tablet Commonly known as: SENOKOT-S/PERICOLACE Used for: Postoperative state Dose: 1 tablet Take 1 tablet by mouth 2 times daily Quantity: 40 tablet Refills: 0 Additional instructions: After Care Future Labs/Procedures Activity Comments: Your activity upon discharge: see your discharge instruction Diet Comments: Follow this diet upon discharge: see your discharge instruction Follow Up: - Follow-up with your urologist as scheduled - Call or return sooner than your regularly scheduled visit if you develop any of the following: fever (greater than 101.5), uncontrolled pain, uncontrolled nausea or vomiting, as well as increased redness, swelling, or drainage from your wound. Phone numbers: - Thursday through Thursday 8am to 4:30pm: Call [phone] with questions or to schedule or confirm appointment. - Nights or weekends: call the after hours emergency pager - [phone] and tell the ssds mk 2 advanced operator I would like to page the Urology Resident reconciliation accountant. - For emergencies, call [phone] The patient was discussed with the chief resident and staff on the day of discharge. Krystian Manriquez MD Urology Resident Associated attestation - Alvaro Clark MD - 12/30/2023 8:01 AM CDT Attestation: Physician Attestation I saw and evaluated this patient prior to discharge. I discussed the patient with the resident/fellow and agree with plan of care as documented in the note. I personally reviewed vital signs, medications, labs, and imaging. I personally spent 10 minutes on discharge activities. Alvaro Clark MD Date of Service (when I saw the patient): 12/29/23 documented in this encounter Medications at Time [...] as of this encounter Progress Notes * Jneni Vela RN - 12/29/2023 8:42 AM CDT VS: BP 136/79 (BP Location: Right arm) Pulse 81 Temp 97.6 ??F (36.4 ??C) (Oral) Resp 16 Ht 1.727 m (5' 8) Wt 87.5 kg (192 lb 14.4 oz) SpO2 96% BMI 29.33 kg/m?? Orientation Pt is Alert and Oriented x 4 Respiratory Lung sounds clear bilaterally. No cough. Denies SOB, no accessory muscles used. Pt saturations 96% on room air Mobility/ Activity Pt up independently Bowel/Bladder: Continent of both bowel and bladder, large yellow/green loose bowel movement today. IV /LDA Port de-accessed for discharge Diet Regular diet, pt tolerating by eating very slow and small amounts Gastrointestinal Old ETHAN incision site draining serosanguinous fluid. 300 ml emptied this morning Skin / Wounds / Dressings: Old ethan incision. Pain Denies Equipment: Urostomy pouch on old incision site Circulation/ Sensation Denies numbness or tingling. PRNS na Plan Continue to monitor Additional info: Gave pt all the adequate supplies in order to discharge (urostomy bags, parry irrigation materials) DISCHARGE SUMMARY Pt discharging to: Home Transportation: Friend AVS given and discussed: Pt was given AVS and pt states understanding of content. Pt has no furtherquestions. Medications given: None given Belongings returned: Yes, ensured all belongings packed and sent with pt. No items in security. Comments: Escorted safely to elevators. Pt left at 1230 * Krystian Manriuqez MD - 12/29/2023 6:51 AM CDT Urology Progress Note NAEO Pain well controlled Passing gas One more BM yeseterday No longer nauseous Not burping Exam BP 130/76 (BP Location: Right arm) Pulse 85 Temp 98.8 ??F (37.1 ??C) (Oral) Resp 17 Ht 1.727 m (5' 8) Wt 87.5 kg (192 lb 14.4 oz) SpO2 96% BMI 29.33 kg/m?? No acute distress Unlabored breathing Abdomen soft, appropriately tender, mildly distended Parry in place Small incisional separation inferior aspect, ~1cm Drain site leaking serous fluids, ostomy appliance on I/O last 3 completed shifts: In: - Out: 1150 [Urine:1150] Labs Recent Labs Lab Test 12/28/23 1153 12/27/23 0737 12/25/23 0650 WBC 9.6 9.0 9.0 HGB 9.5* 9.0* 8.8* CR 0.76 0.86 0.89 Assessment/Plan 63 year old male with recent cystectomy, admitted for ileus, now with ROBF and feels better Neuro: tylenol, prn oxy, dilaudid CV: HD appropriate Pulm: incentive spirometry while awake FEN/GI: regular diet, self regulate Endo: Relatively euglycemic : parry, irrigate bid Heme/ID: HD stable, transfuse prn, watch for s/s of infection Activity: Up as tolerated Ambulate at least TID Ppx: Heparin 5000 U TID Dispo: potential dc today Will discuss with staff surgeon Krystian Manriquez MD, PGY3 Urology Resident Contacting the urology team: Please see [employer] and page on-call clinician with any questions or concerns regarding this patient. Note continuity writer may be unavailable. To access [employer] from intranet: under Applications --> Business Applications select [facility] [employer] and search Urology Adult & Pediatric/[facility]. Please note that any question about a urology inpatient, [place] or [place], should go to job code [id number]. * Dane Jenni L, RN - 12/28/2023 10:46 AM CDT VS: BP 123/66 (BP Location: Right arm) Pulse 86 Temp 97.9 ??F (36.6 ??C) (Oral) Resp 16 Ht 1.727 m (5' 8) Wt 87.5 kg (192 lb 14.4 oz) SpO2 97% BMI 29.33 kg/m?? Orientation Pt is Alert and Oriented x 4 Respiratory Lung sounds clear bilaterally. No cough. Denies SOB, no accessory muscles used. Pt saturations 97% on room air Mobility/ Activity Pt is independent in his room Bowel/Bladder: Pt continent of bowel, loose stool last bm today. Parry draining red. Irrigated parry x1 IV /LDA IV infusing Dextrose 5% and .45% NaCl with Potassium chloride 10 meEq/L at 100 ml/hr Diet Regular diet, pt reluctant to eat too much, and is eating slow in fear of bowel complications.Pt has eaten 50% of applesauce, yogurt, and ice cream today. Gastrointestinal Denies n/v/d, abdomen is soft round and non tender, bowel sounds active, pt passing flatus and stool in morning and afternoon- later in evening stopped passing gas and began burping Skin / Wounds / Dressings: Small pea size opening on right pelvic area from previus ETHAN drain. This site is leaking serosanguinous fluid (provider aware). Fluid has saturated 12 abd pads and 12 gauze pads throughout the shift. Pain Reported pain at 1700 in left lower abdomen that pt stated felt like a fist, a heavy aching feeling. Pt had previously refused the suppository in the morning, but decided to take it after the pain began. Equipment: Onq pain pump attached to abdomen, parry catheter, Circulation/ Sensation Denies numbness or tingling. PRNS Na Plan Continue to monitor. Additional info: Stat lock on parry catheter changed, 3 way stat lock is not big enough so it was secured with tape * Krystian Manriquez MD - 12/28/2023 7:22 AM CDT Urology Progress Note NAEO Pain well controlled Passing gas Had a big BM yeseterday No longer nauseous A little burping Exam BP 136/72 (BP Location: Left arm, Cuff Size: Adult Regular) Pulse 81 Temp 98.1 ??F (36.7 ??C) (Oral) Resp 18 Ht 1.727 m (5' 8) Wt 87.5 kg (192 lb 14.4 oz) SpO2 95% BMI 29.33 kg/m?? No acute distress Unlabored breathing Abdomen soft, appropriately tender, moderately distended Parry in place I/O last 3 completed shifts: In: - Out: 2225 [Urine:2225] Labs Recent Labs Lab Test 12/27/23 0737 12/25/23 0650 12/24/23 0616 WBC 9.0 9.0 9.8 HGB 9.0* 8.8* 9.0* CR 0.86 0.89 0.99 Assessment/Plan 63 year old male with recent cystectomy, admitted for ileus, now with ROBF Neuro: tylenol, prn oxy, dilaudid CV: HD appropriate Pulm: incentive spirometry while awake FEN/GI: advance to reg diet, self regulate, wean mIVF as tolerate Endo: Relatively euglycemic : parry Heme/ID: HD stable, transfuse prn, watch for s/s of infection Activity: Up as tolerated Ambulate at least TID Ppx: Heparin 5000 U TID Dispo:Floor Will discuss with staff surgeon Krystian Manriquez MD, PGY3 Urology Resident Contacting the urology team: Please see [employer] and page on-call clinician with any questions or concerns regarding this patient. Note continuity writer may be unavailable. To access [employer] from intranet: under Applications --> Business Applications select [employer] and search Urology Adult & Pediatric/[facility]. Please note that any question about a urology inpatient, [place] or [place], should go to job code [id number]. * Nick Sanderson RN - 12/27/2023 12:41 PM CDT BP 126/78 (BP Location: Left arm, Patient Position: Semi-Ward's, Cuff Size: Adult Regular) Pulse 83 Temp 98 ??F (36.7 ??C) (Oral) Resp 18 Ht 1.727 m (5' 8) Wt 87.5 kg (192 lb 14.4 oz) SpO2 95% BMI 29.33 kg/m?? Pt AO x4, on RA and satting adequately. Pain managed with PRN Oxycodone. Parry patent and draining bloodish urine. Q4 vitals. Pt NPO pending. Urology notified about NPO status. Continue to monitor and follow the POC. * Lauren Eli RN - 12/27/2023 6:49 AM CDT Patient admitted - VS: VS. Blood pressure (!) 147/85, pulse 99, temperature 97.5 ??F (36.4 ??C), temperature source Oral, resp. rate 18, height 1.727 m (5' 8), weight 87.5 kg (192 lb 14.4 oz), SpO2 92%. O2: >90% on RA no complaints of SOB or chest pain. Output: Voiding adequate amounts w/o pain or difficulty to bathroom. Last BM: 12/27/2023 Activity: SBA Skin: Visibly Intact, abdominal post surgical incision. Pt wearing abd binder. Pain: 6/10 abdominal pain managed with PRN oxy. CMS: A/O x4, able to make needs known Dressing: Abdominal surgical incision Diet: NPO LDA: Port cath, dextrose 5% and 0.45% NaCl 1000 ml with pot infusing Equipment: Personal belongings Plan: Pt stated he has not slept since yesterday morning, pt is now sleeping. Will continue POC. Additional Info: Jose Manuel, 63 year old post chemotherapy for bladder cancer, is here for post op complication. Pt came from [facility] with family member matthew 05:30 am.Pt has a parry draining bloody catheter. 0 * Lauren Eli RN - 12/27/2023 5:42 AM CDT Reason for admission: Post op complication Primary team notified of pt arrival. Admitted from: [facility] Via: Family car Accompanied by: family members Belongings: Placed in closet; valuables sent home with family Admission Required Doc Completed: Yes Teaching: Orientation to unit and call light- call light within reach, use of console, meal times, when to call for the RN, and enforced importance of safety. IV Access: Port cath Telemetry: No Ht./Wt.: Completed Code Status verified on armband: Yes 2 RN Skin Assessment Completed with: CARLOS Beard Suction/Ambu bag/Flowmeter at bedside: Yes Pt status: Temp: [97.5 ??F (36.4 ??C)] 97.5 ??F (36.4 ??C) Pulse: [99] 99 Resp: [18] 18 BP: (147)/(85) 147/85 SpO2: [92 %] 92 % documented in this encounter H&P Notes * Demarcus Persaud MD - 12/27/2023 6:53 AM CDT Surgery Admission History and Physical Name: Oleg Richard Date of : 1960 Chief Complaint: Abdominal Pain and Bloating History is obtained from the patient History of Present Illness: Oleg Richard is a 63 year old male with 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 He was discharged from the hospital on 12/25/23. He reports that he developed progressiveonset of abdominal pain and bloating yesterday evening. Last BM and flatus last evening. Last PO intake at 5 PM 12/26/23. He endorses burping and anorexia and denies fevers, chills, nausea, vomiting, and uncontrolled abdominal pain. He presented to an outside hospital due to these symptoms and CT scan at outside hospital demonstrated small bowel wall thickening with upstream bowel dilation concerning for partial obstruction. In light of his recent surgery, he was transferred for evaluation and further management. Past Medical History: Past Medical History: Diagnosis Date Lesion of bladder Migraine 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 (H) Past Surgical History: Past Surgical History: Procedure Laterality Date CYSTECTOMY BLADDER, ILEAL DIVERSION NEOBLADDER, COMBINED N/A 12/22/2023 Procedure: CYSTECTOMY, pelvic node dissection WITH ILEAL NEOBLADDER CREATION; Surgeon: Alvaro Clark MD; Location: [facility] OR IR CHEST PORT PLACEMENT > 5 YRS OF AGE 308/28/2023 KNEE SURGERY TRANSURETHRAL RESECTION (TUR) TUMOR BLADDER INSTILL OPTICAL AGENT N/A 07/22/2023 Procedure: BLUE LIGHT CYSTOSCOPY, WITH TRANSURETHRAL RESECTION BLADDER TUMOR; Surgeon: Alvaro Clark MD; [place] [facility] [place] Social History: Social History Tobacco Use Smoking status: Former Current packs/day: 0.00 Average packs/day: 1.5 packs/day for 30.0 years (45.0 ttl pk-yrs) Types: Cigarettes Start date: 1979 Quit date: 2009 Years since quittin.5 Passive exposure: Past Smokeless tobacco: Never Substance Use Topics Alcohol use: Never Family History: Family History Problem Relation Age of Onset No Known Problems Mother Bladder Cancer Father Anesthesia Reaction No family hx of Thrombosis No family hx of Allergies: Allergies Allergen Reactions Penicillins Nausea and Vomiting Medications: Current Facility-Administered Medications Medication Dose Route Frequency Provider Last Rate Last Admin acetaminophen (TYLENOL) tablet 975 mg 975 mg Oral TID Demarcus Persaud MD benzocaine-menthol (CHLORASEPTIC) 6-10 MG lozenge 1 lozenge 1 lozenge Buccal Q1H PRN Demarcus Persaud MD calcium carbonate (TUMS) chewable tablet 1,000 mg 1,000 mg Oral 4x Daily PRN Demarcus Persaud MD dextrose 5% and 0.45% NaCl + KCl 10 mEq/L 10-5-0.45 MEQ/L-%-% infusion dextrose 5% and 0.45% NaCl 1,000 mL with potassium chloride 10 mEq/L infusion Intravenous Continuous Demarcus Persaud MD 100 mL/hr at 12/27/23 0606 New Bag at 12/27/23 0606 gabapentin (NEURONTIN) capsule 100 mg 100 mg Oral TID PRN Demarcus Persaud MD hydrALAZINE (APRESOLINE) tablet 10 mg 10 mg Oral Q4H PRN Demarcus Persaud MD Or hydrALAZINE (APRESOLINE) injection 10 mg 10 mg Intravenous Q4H PRN Demarcus Persaud MD HYDROmorphone (DILAUDID) injection 0.2 mg 0.2 mg Intravenous Q2H PRN Demarcus Persaud MD HYDROmorphone (DILAUDID) injection 0.4 mg 0.4 mg Intravenous Q2H PRN Demarcus Persaud MD lidocaine (LMX4) cream Topical Q1H PRN Demarcus Persaud MD lidocaine 1 % 0.1-1 mL 0.1-1 mL Other Q1H PRN Demarcus Persaud MD melatonin tablet 5 mg 5 mg Oral At Bedtime PRN Demarcus Persaud MD methocarbamol (ROBAXIN) tablet 750 mg 750 mg Oral 4x Daily PRN Demarcus Persaud MD naloxone (NARCAN) injection 0.2 mg 0.2 mg Intravenous Q2 Min PRN Fernando Romero MD Or naloxone (NARCAN) injection 0.4 mg 0.4 mg Intravenous Q2 Min PRN Fernando Romero MD Or naloxone (NARCAN) injection 0.2 mg 0.2 mg Intramuscular Q2 Min PRN Fernando Romero MD Or naloxone (NARCAN) injection 0.4 mg 0.4 mg Intramuscular Q2 Min PRN Fernando Romero MD nitroFURantoin macrocrystal-monohydrate (MACROBID) capsule 100 mg 100 mg Oral Daily Demarcus Persaud MD ondansetron (ZOFRAN ODT) ODT tab 4 mg 4 mg Oral Q6H PRN Demarcus Persaud MD Or ondansetron (ZOFRAN) injection 4 mg 4 mg Intravenous Q6H PRN Demarcus Persaud MD oxyCODONE (ROXICODONE) tablet 5 mg 5 mg Oral Q4H PRN Demarcus Persaud MD 5 mg at 12/27/23 0522 oxyCODONE IR (ROXICODONE) half-tab 2.5 mg 2.5 mg Oral Q4H PRN Demarcus Persaud MD prochlorperazine (COMPAZINE) injection 10 mg 10 mg Intravenous Q6H PRN Demarcus Persaud MD Or prochlorperazine (COMPAZINE) tablet 10 mg 10 mg Oral Q6H PRN Demarcus Persaud MD Or prochlorperazine (COMPAZINE) suppository 25 mg 25 mg Rectal Q12H PRN Demarcus Persaud MD sodium chloride (PF) 0.9% PF flush 3 mL 3 mL Intracatheter Q8H Demarcus Persaud MD 3 mL at 12/27/23 0606 sodium chloride (PF) 0.9% PF flush 3 mL 3 mL Intracatheter q1 min prn Demarcus Persaud MD Review of Systems: ROS: 10 point ROS neg other than the symptoms noted above in the HPI Physical Exam: VS: T: 97.5 HR: 99 BP: 147/85 RR: 18 GEN: NAD, lying in bed, responds appropriately to questions CV: HDS LUNGS: Non-labored breathing on room air, no use of accessory muscles of respiration ABD: Soft. Mild tenderness to palpation, no rebound or guarding, moderate distention, incision withsteri strips in place at the inferior incision there is superficial skin separation with intact appearing tissue underneath : Parry in place draining grade II urine EXT: Extremities appear well perfused NEURO: Grossly moving all extremities Data: All laboratory data reviewed: Recent Labs Lab 12/25/23 0650 12/24/23 0616 12/23/23 0704 12/22/23 2155 WBC 9.0 9.8 12.1* -- HGB 8.8* 9.0* 9.4* -- PLT 172 177 177 179 Recent Labs Lab 12/25/23 0650 12/24/23 0616 12/23/23 0704 12/23/23 0642 NA 134* 137 136 -- POTASSIUM 4.5 4.6 4.4 -- CHLORIDE 100 103 103 -- CO2 28 28 28 -- BUN 20.9 22.1 21.4 -- CR 0.89 0.99 0.94 -- GLC 113* 103* 121* 118* JUANY 8.3* 8.3* 8.3* -- MAG -- 1.8 -- -- PHOS -- 2.9 -- -- No lab results found in last 7 days. Invalid input(s): URINEBLOOD All pertinent imaging reviewed: Results for orders placed or performed during the hospital encounter of 12/22/23 XR Abdomen Port 1 View Narrative EXAMINATION: XR ABDOMEN PORT 1 VIEW 12/22/2023 [...] the visualized abdomen.. No portal venous gas. Impression IMPRESSION: Ureteral stents project over the expected location of the UPJ bilaterally. I have personally reviewed the examination and initial interpretation and I agree with the findings. ALF WOOTEN DO CT scan of the abdomen: Patient is status post cystectomy with ileal neobladder creation. There is free air and fluid within the abdomen; correlation for timeframe of surgery for evolving postsurgical air and fluid versus dehiscence is recommended. Otherwise, there is a loop of small bowel proximal to the ileal resection site demonstrating severe bowel wall thickening with upstream bowel dilation suspicious for a nonspecific enteritis and at least partial obstruction. 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 He developed onset with abdominal pain and bloating with imaging concerning for partial bowel obstruction. He is afebrile and hemodynamically stable. Labs from outside hospital reviewed and without leukocytosis. Exam without evidence of peritonitis. Clinical picture consistent with ileusvs partial SBO. Plan for conservative management with bowel rest, IVF, and electrolyte replacement.As patient has had no emesis will hold off on NGT at this time. Plan: Neuro: pain control: tylenol, robaxin, gabapentin, and PRN oxycodone/dilaudid. OnQ catheters in place CV: SUSAN Pulm: incentive spirometry while awake FEN/GI: NPO w/ sips, mIVF D5 1/2 NS + 10mEq KCL @ 100 mL/hr, will hold off on NGT at this time if patient develops persistent emesis please reach out to urology resident listed as reconciliation accountant, electrolyte replacement for K>4, Phos>3, and Mg>2, electrolyte panel pending Endo: SUSAN : 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 Nick Persaud Urology Resident Associated attestation - Fernando Romero MD - 12/27/2023 7:34 PM CDT Physician Attestation I did not see the patient on this date. Pt managed by his surgeon Dr. Clark. Fernando Romero MD documented in this encounter Miscellaneous Notes * Plan of Care - Omega Livingston RN - 12/29/2023 12:52 AM CDT Goal Outcome Evaluation: Plan of Care Reviewed With: patient Overall Patient Progress: improvingOverall Patient Progress: improving Shift [id number] Changes this shift: Irrigated parry and pelvic dressing changes Neuro: Alert and orientated x4. Cardiac: HR WNL, normotensive. Afebrile Respiratory: O2 sat > 90% on RA. Lung sounds clear bilaterally GI/: Cont. B&B, parry in place, irrigated parry x1 overnight Diet: Regular diet, denied N/V. Pain: Denied pain Skin: Small incision from ETHAN drain on right pelvic area, incision was draining and saturating ABD pads and gauze dressing approx. every hour, currently dressed with a urosotomy bag to track drainage ammount and help dressing saturation. LDA's: port infusing dextrose 5% & .45 NS with potassium at 100 ml/hr Activity: independent In room Plan: Call light within reach, able to make needs known, continue with plan of care. * Plan of Care - Nanci Cowart RN - 12/28/2023 4:42 AM CDT VS: BP 136/72 (BP Location: Left arm, Cuff Size: Adult Regular) Pulse 81 Temp 98.1 ??F (36.7 ??C) (Oral) Resp 18 Ht 1.727 m (5' 8) Wt 87.5 kg (192 lb 14.4 oz) SpO2 95% BMI 29.33 kg/m?? O2: Stable on room air Neuro: AOx4 Bowel/Bladder: Continent of Bowel. Parry cath with red urine output. LBM: 12/26 Diet: NPO Skin: Abdominal incision, old drain sites in groin area. Pain: Pain managed with PRN medications Activity: Up ad naif Dressings: NA- old drain site that is open to air had a moderate amount of serosanguinous drainage. LDA: Port a cath-R, Parry cath Equipment: IV pole Plan: Continue with plan of care Additional Info: VSS stable overnight, no acute changes this shift. Nanci Cowart RN on 12/28/2023 at 4:43 AM Goal Outcome Evaluation: Plan of Care Reviewed With: patient Overall Patient Progress: improvingOverall Patient Progress: improving Outcome Evaluation: VSS, pain managed with PRN medications. Problem: Adult Inpatient Plan of Care Goal: Plan of Care Review Description: The Plan of Care Review/Shift note should be completed every shift. The Outcome Evaluation is a brief statement about your assessment that the patient is improving, declining, or no change. This information will be displayed automatically on your shift note. Outcome: Progressing Flowsheets (Taken 12/28/2023 0440) Outcome Evaluation: VSS, pain managed with PRN medications. Plan of Care Reviewed With: patient Overall Patient Progress: improving Goal: Patient-Specific Goal (Individualized) Description: You can add care plan individualizations to a care plan. Examples of Individualizationmight be: Parent requests to be called daily at 9am for status, I have a hard time hearing out of my right ear, or Do not touch me to wake me up as it startles me. Outcome: Progressing Goal: Absence of Hospital-Acquired Illness or Injury Outcome: Progressing Intervention: Identify and Manage Fall Risk Recent Flowsheet Documentation Taken 12/28/2023 0400 by Nanci Cowart RN Safety Promotion/Fall Prevention: activity supervised assistive device/personal items within reach clutter free environment maintained lighting adjusted nonskid shoes/slippers when out of bed room organization consistent safety round/check completed Taken 12/27/20232099 by Nanci Cowart RN Safety Promotion/Fall Prevention: activity supervised assistive device/personal items within reach clutter free environment maintained lighting adjusted nonskid shoes/slippers when out of bed room organization consistent safety round/check completed Intervention: Prevent Skin Injury Recent Flowsheet Documentation Taken 12/28/2023 0400 by Nanci Cowart RN Body Position: position changed independently Taken 12/27/20232099 by Nanci Cowart RN Body Position: position changed independently Intervention: Prevent and Manage VTE (Venous Thromboembolism) Risk Recent Flowsheet Documentation Taken 12/28/2023 0400 by Nanci Cowart RN VTE Prevention/Management: SCDs off (sequential compression devices) Taken 12/27/20232099 by Nanci Cowart RN VTE Prevention/Management: SCDs off (sequential compression devices) Intervention: Prevent Infection Recent Flowsheet Documentation Taken 12/28/2023 0400 by Nanci Cowart RN Infection Prevention: hand hygiene promoted Taken 12/27/20232099 by Nanci Cowart RN Infection Prevention: hand hygiene promoted Goal: Optimal Comfort and Wellbeing Outcome: Progressing Goal: Readiness for Transition of Care Outcome: Progressing Problem: Pain Acute Goal: Optimal Pain Control and Function Outcome: Progressing Intervention: Prevent or Manage Pain Recent Flowsheet Documentation Taken 12/28/2023 0400 by Nanci Cowart RN Bowel Elimination Promotion: adequate fluid intake promoted Medication Review/Management: medications reviewed Taken 12/27/20232099 by Nanci Cowart RN Bowel Elimination Promotion: adequate fluid intake promoted Medication Review/Management: medications reviewed * Plan of Care - Wayne Barahona RN - 12/27/2023 6:31 PM CDT [id number] Blood pressure 132/75, pulse 94, temperature 97.4 ??F (36.3 ??C), temperature source Oral, resp. rate 18, height 1.727 m (5' 8), weight 87.5 kg (192 lb 14.4 oz), SpO2 93%. Goal Outcome Evaluation: Pt A&OX4 no numbness and tingling. Co abd pain managed using PRN PO oxycodone. Pt can ambulate and transfer with 1 stand by assist. Parry cathter in place and drain patently color bright red-darkpink. Pt has a large BM during this shift. CHG bath done. Chest port infusing patent and WNL. Call light within pt reach. Pt can express his needs properly. Plan of Care Reviewed With: patient Problem: Adult Inpatient Plan of Care Goal: Plan of Care Review Description: The Plan of Care Review/Shift note should be completed every shift. The Outcome Evaluation is a brief statement about your assessment that the patient is improving, declining, or no change. This information will be displayed automatically on your shift note. Outcome: Progressing Flowsheets (Taken 12/27/20231746) Plan of Care Reviewed With: patient Goal: Patient-Specific Goal (Individualized) Description: You can add care plan individualizations to a care plan. Examples of Individualizationmight be: Parent requests to be called daily at 9am for status, I have a hard time hearing out of my right ear, or Do not touch me to wake me up as it startles me. Outcome: Progressing Goal: Absence of Hospital-Acquired Illness or Injury Outcome: Progressing Goal: Optimal Comfort and Wellbeing Outcome: Progressing Goal: Readiness for Transition of Care Outcome: Progressing Problem: Pain Acute Goal: Optimal Pain Control and Function Outcome: Progressing * Pharmacy-Admission Medication History - Silvia Sánchez [facility] - 12/27/2023 1:10 PM CDT Pharmacist Admission Medication History Recent Admission 12/22/2023 - 12/25/3023 Admission Medication History completed by pharmacy technician, Uriel Kaba on 12/15/2023. Please see Pharmacy - Admission Medication History note under previous encounter at [facility]. for information regarding prior to admission medications. Silvia Sánchez, PharmElba Clinical Pharmacist documented in this encounter Plan of Treatment Upcoming Encounters Date Type Department Care Team (Late st Contact Info) Description 03/04/2024 8:00 AM CDT Oncology Visit [facility] [id number] [place] [address] DAISY [address] [facility] [place] [phone] Ky Torres MD [address] [facility] [address] [place] [address] documented as of this encounter Procedures Procedure Name Priority Date/Time Associated Diagnosis Comments BASIC METABOLIC PANEL Routine 12/29/2023 7:28 AM [...] PLATELETS Routine 12/27/2023 7: 37 AM CDT documented in this encounter Results * (ABNORMAL) Basic metabolic panel (12/29/2023 7:28 AM CDT) Sodium 135 135 - 145 mmol/L 12/29/2023 [...] 8:33 AM CDT UR [facility] Comment:eGFR calculated usin 2020 CKD-EPI equation. Calcium 8.4(L) 8.8 - [...] LAB - BLOOD ORDERABL ES UR LABORATORY [facility] Lab [address], [address] [place] [address], [facility] * (ABNORMAL) CBC with platelets (12/29/2023 7:28 AM CDT) WBC Count 8.9 4.0 - 11.0 10e3/uL [...] LAB - BLOOD ORDERABL ES UR LABORATORY [facility] [address], [address] [place] [phone] * Phosphorus (12/28/2023 11:53 AM CDT) Phosphorus 2.8 2.5 - 4.5 mg/dL 12/28/2023 1:37 PM CDT UR LAB[facility]ORY Blood STRUCTURE OF RIGHT UPPER LIMB / Unknown Venipuncture / Unknown 12/28/2023 11:53 AM CDT 12/28/2023 12:53 PM CDT Krystian Manriquez MD LAB - BLOOD ORDERABL ES UR LABORATORY [facility] Lab [address] [facility] [address], [address] [phone], [place] * Magnesium (12/28/2023 11:53 AM CDT) Magnesium 2.0 1.7 - 2.3 mg/dL 12/28/2023 1:37 PM CDT UR [facility]ORY Blood STRUCTURE OF RIGHT UPPER LIMB / Unknown Venipuncture / Unknown 12/28/2023 11:53 AM CDT 12/28/2023 12:53 PM CDT Krystian Manriquez MD LAB - BLOOD ORDERABL ES Performing Organization Address [facility]/ZIP Co de Phone Number UR LABORATORY [facility] Acute [facility] Lab [facility] [facility], [address] [place] [phone] * (ABNORMAL) Basic metabolic panel (12/28/2023 11:53 AM CDT) Sodium 134(L) 135 - 145 mmol/L 12/28/2023 1:37 PM CDT UR [facility] Potassium 4.0 3.4 - 5.3 mmol/L 12/28/2023 1:37 PM CDT UR [facility] Chloride 99 98 - 107 mmol/L 12/28/2023 1:37 PM CDT UR [facility] Carbon Dioxide (CO2) 28 22 - 29 mmol/L 12/28/2023 1:37 PM CDT UR [facility] Anion Gap 7 7 - 15 mmol/L 12/28/2023 1:37 PM CDT UR [facility] Urea Nitrogen 11.8 8.0 - 23.0 mg/dL 12/28/2023 1:37 PM CDT UR [facility] Creatinine 0.76 0.67 - 1.17 mg/dL 12/28/2023 1:37 PM CDT UR [facility] GFR Estimate >90 >60 mL/min/1.7 3m2 12/28/2023 1:37 PM CDT [facility] Comment:eGFR calculated usin 2020 CKD-EPI equation. Calcium 8.0(L) 8.8 - 10.4 mg/dL 12/28/2023 1:37 PM CDT [facility] Comment:Reference intervals for this test were updated on 12/15/2023 to reflect our healthy population more accurately. There may be differences in the flagging of prior results with similar values performed with this method. Those prior results can be interpreted in the context of the updated reference intervals. Glucose 118(H) 70 - 99 mg/dL 12/28/2023 1:37 PM CDT UR [facility] Blood STRUCTURE OF RIGHT UPPER LIMB / Unknown Venipuncture / Unknown 12/28/2023 11:53 AM CDT 12/28/2023 12:53 PM CDT Krystian Manriquez MD LAB - BLOOD ORDERABL ES UR LABORATORY [facility] Lab [address] [place] [address] * (ABNORMAL) CBC with platelets (12/28/2023 11:53 AM CDT) WBC Count 9.6 4.0 - 11.0 10e3/uL 12/28/2023 1:18 PM CDT UR [facility] RBC Count 3.12(L) 4.40 - 5.90 10e6/uL 12/28/2023 1:18 PM CDT UR [facility] Hemoglobin 9.5(L) 13.3 - 17.7 g/dL 12/28/2023 1:18 PM CDT UR [facility] Hematocrit 29.1(L) 40.0 - 53.0 % 12/28/2023 1:18 PM CDT UR [facility] MCV 93 78 - 100 fL 12/28/2023 1:18 PM CDT UR [facility] MCH 30.4 26.5 - 33.0 pg 12/28/2023 1:18 PM CDT UR [facility] MCHC 32.6 31.5 - 36.5 g/dL 12/28/2023 1:18 PM CDT UR [facility] RDW 14.4 10.0 - 15.0 % 12/28/2023 1:18 PM CDT UR [facility] Platelet Count 254 150 - 450 10e3/uL 12/28/2023 1:18 PM CDT UR [facility] Blood STRUCTURE OF RIGHT UPPER LIMB / Unknown Venipuncture / Unknown 12/28/2023 11:53 AM CDT 12/28/2023 12:53 PM CDT Krystian Manriquez MD LAB - BLOOD ORDERABL ES UR LABORATORY [facility] [address] [facility] [address], [address] [place] [phone] * Electrolyte panel (12/27/2023 7:37 AM CDT) [...] Persaud MD LAB - BLOOD ORDERABL ES Performing Organization Address City/[facility]/ZIP Co de Phone Number UR LABORATORY [facility], [address] [place] [phone] * (ABNORMAL) Basic metabolic panel (12/27/2023 7:37 AM CDT) Sodium 136 [...] mmol/L 12/27/2023 8:38 AM CDT UR [facility] Urea Nitrogen 20.1 8.0 - 23.0 mg/dL 12/27/2023 8:38 AM CDT UR [facility] Creatinine 0.86 0.67 - 1.17 mg/dL 12/27/2023 8:38 AM CDT UR [facility] GFR Estimate >90 >60 mL/min/1.7 3m2 12/27/2023 8:38 AM CDT [facility] Comment:eGFR calculated usin 2020 CKD-EPI equation. Calcium 8.0(L) 8.8 - 10.4 mg/dL 12/27/2023 8:38 AM CDT [facility] Comment:Reference intervals for this test were updated on 12/15/2023 to reflect our healthy population more accurately. There may be differences in the flagging of prior results with similar values performed with this method. Those prior results can be interpreted in the context of the updated reference intervals. Glucose 114(H) 70 - 99 mg/dL 12/27/2023 8:38 AM CDT UR [facility] Blood STRUCTURE OF LEFT HAND / Unknown Venipuncture / Unknown 12/27/2023 7:37 AM CDT 12/27/2023 8:16 AM CDT Demarcus Persaud MD LAB - BLOOD ORDERABL ES UR LABORATORY [facility] [address], [address] [place] [address], [facility] * (ABNORMAL) CBC with platelets (12/27/2023 7:37 AM CDT) WBC Count 9.0 4.0 - 11.0 10e3/uL 12/27/2023 8:18 AM CDT UR [facility] RBC Count 2.93(L) 4.40 - 5.90 10e6/uL 12/27/2023 8:18 AM CDT UR [facility] Hemoglobin 9.0(L) 13.3 - 17.7 g/dL 12/27/2023 8:18 AM CDT UR [facility] Hematocrit 27.3(L) 40.0 - 53.0 % 12/27/2023 8:18 AM CDT UR [facility] MCV 93 78 - 100 fL 12/27/2023 8:18 AM CDT UR [facility] MCH 30.7 26.5 - 33.0 pg 12/27/2023 8:18 AM CDT UR [facility] MCHC 33.0 31.5 - 36.5 g/dL 12/27/2023 8:18 AM CDT UR [facility] RDW 14.4 10.0 - 15.0 % 12/27/2023 8:18 AM CDT UR [facility] Platelet Count 235 150 - 450 10e3/uL 12/27/2023 8:18 AM CDT UR [facility] Blood STRUCTURE OF LEFT HAND / Unknown Venipuncture / Unknown 12/27/2023 7:37 AM CDT 12/27/2023 8:16 AM CDT Demarcus Persaud MD LAB - BLOOD ORDERABL ES UR LABORATORY [facility] [address] [place] [address] documented in this encounter Visit Diagnoses Diagnosis Small bowel obstruction (H) Unspecified intestinal obstruction documented in this encounter Administered Medications Inactive Administered Medications - up to 3 most recent administrations Medication Order MAR Action Action Date Dose Rate Site acetaminophen (TYLENOL) tablet 650 mg 650 mg, Oral, 3 TIMES DAILY, First dose (after last modification) on 12/27/23 at 1400, Maximum acetaminophen dose from all sources = 75 mg/kg/day not to exceed 4 grams/day. $Given 12/29/2023 8:57 AM CDT 650 mg $Given 12/28/2023 7:43 PM CDT 650 mg $Given 12/28/2023 1:24 PM CDT 650 mg acetaminophen (TYLENOL) tablet 975 mg 975 mg, Oral, 3 TIMES DAILY, First dose on 12/27/23 at 0800, Maximum acetaminophen dose from all sources = 75 mg/kg/day not to exceed 4 grams/day. $Given 12/27/2023 8:44 AM CDT 975 mg benzocaine-menthol (CHLORASEPTIC) 6-10 MG lozenge 1 lozenge 1 lozenge, Buccal, EVERY 1 HOUR PRN, sore throat, without fever, Starting on 12/26/24 at 0510 bisacodyl (DULCOLAX) suppository 10 mg 10 mg, Rectal, DAILY, First dose on Thu12/27/23 at 1130, Hold for loose stools. $Given 12/28/2023 4:58 PM CDT 10 m g $Given 12/27/2023 12:09 PM CDT 10 mg calcium carbonate (TUMS) chewable tablet 1,000 mg 1,000 mg, Oral, 4 TIMES DAILY PRN, heartburn, Starting on Thu12/27/23 at 0502 calcium gluconate 1 g in 50 mL in sodium chloride intermittent infusion 1 g, Intravenous, Administer over 60 Minutes, ONCE, On Thu12/27/23 at 2000, For 1 dose, Do not infuse in the same IV line as phosphate-containing solutions $Given 12/27/2023 11:10 PM CDT 1 g dextrose 5% and 0.45% NaCl 1,000 mL with potassium chloride 10 mEq/L infusion 1,000 mL, at 100 mL/hr, Intravenous, CONTINUOUS, Starting on Thu12/27/23 at 0530, Until Thu12/29/23 at 0653 $New Bag 12/29/2023 3:55 AM CDT 100 mL/hr $New Bag 12/28/2023 6:22 PM CDT 100 mL/hr $New Bag 12/27/2023 5:14 PM CDT 100 mL/hr heparin ANTICOAGULANT injection 5,000 Units 5,000 Units, Subcutaneous, EVERY 8 HOURS, First dose on Thu12/27/23 at 1200, HOLD heparin IF platelet count falls below 50% baseline or less than 100,000 / ??L and notify provider. Use this product If CrCl less than 30 mL/min. High concentration heparin. Not for line flush or cath care. $Given 12/29/2023 3:55 AM CDT 5,000 Units $Given 12/28/2023 7:43 PM CDT 5,000 Units $Given 12/28/2023 12:35 PM CDT 5,000 Units heparin lock flush 10 unit/mL injection 5-10 mL 5-10 mL, Intracatheter, EVERY 1 HOUR PRN, post meds or blood draw, other, to lock each port in dual implanted port, Starting on Thu12/29/23 at 1120, Flush each port lumen with the sodium chloride 0.9% flush followed by the heparin flush. MAX dose: 5 mL of heparin for each lumen heparin lock flush 10 unit/mL injection 5-10 mL 5-10 mL, Intracatheter, EVERY 24 HOURS, First dose on Thu12/29/23 at 1130, To lock each dormant port in dual implanted port. MAX: 5 mL of heparin for each lumen Check PRN heparin flush order to see when the last dose of the PRN heparin was given before administering this heparin dose. Flush with sodium chloride 0.9% followed by the heparin flush. $Given 12/29/2023 11:35 AM CDT 5 mLs heparin lock flush 100 unit/mL injection 5-10 mL 5-10 mL, Intracatheter, EVERY 28 DAYS, First dose on Thu12/29/23 at 1130, To de-access each port in dual implanted port. Flush with 10 mL NS sodium chloride 0.9% flush followed by 5 mL heparin (100 units/mL) at discharge and at least every 28 days. MAX: 5 mL per each port lumen hydrALAZINE (APRESOLINE) injection 10 mg 10 mg, Intravenous, EVERY 4 HOURS PRN, high blood pressure, for systolic BP greater than 180 mmHg, Administer over 1 Minutes, Starting on Thu12/27/23 at 0509 hydrALAZINE (APRESOLINE) tablet 10 mg 10 mg, Oral, EVERY 4 HOURS PRN, high blood pressure, for systolic BP greater than 180 mmHg, Starting on Thu12/27/23 at 0509 HYDROmorphone (DILAUDID) injection 0.2 mg 0.2 mg, Intravenous, EVERY 2 HOURS PRN, moderate pain, IF patient cannot take oral opioid OR IF pain not managed with non-pharmacological, non-opioid, or oral opioid interventions if ordered, Starting on Thu12/27/23 at 0510, May use concomitant with non-opioid analgesics. HYDROmorphone (DILAUDID) injection 0.4 mg 0.4 mg, Intravenous, EVERY 2 HOURS PRN, severe pain, IF patient cannot take oral opioid OR IF pain not managed with non-pharmacological, non-opioid, or oral opioid interventions if ordered, Starting on Thu12/27/23 at 0510, May use concomitant with non-opioid analgesics. lidocaine (LMX4) cream Topical, EVERY 1 HOUR PRN, pain, with VAD insertion, Starting on 12/27/23 at 0502, Apply at least 30 minutes prior to [...] mild pain with VAD insertion, Starting on 12/27/23 at 0502, MAX dose 1 mL subcutaneous OR intradermal along the side of the vein in divided doses as needed for VAD insertion. Do NOT give if patient has a history of allergy to any local anesthetic or any pepe product. Do NOT use both lidocaine intradermal/subcutaneous injection and the lidocaine cream on the same site. magnesium hydroxide (MILK OF MAGNESIA) suspension 30 mL 30 mL, Oral, DAILY, First dose on 12/27/23 at 1230, Shake well. Hold for loose stools. $Given 12/29/2023 8:57 AM CDT 30 mLs $Given 12/28/2023 9:23 AM CDT 30 mLs $Given 12/27/2023 1:34 PM CDT 30 mLs melatonin tablet 5 mg 5 mg, Oral, AT BEDTIME PRN, sleep, Starting on 12/27/23 at 0510, Do not give unless at least 6 hours of uninterrupted sleep is expected. If patient has multiple medications ordered PRN sleep/insomnia, offer melatonin first. naloxone (NARCAN) injection 0.2 mg 0.2 mg, Intravenous, EVERY 2 MIN PRN, opioid reversal, Starting on 12/27/23 at 0517, Administer intravenous route when available and notify [...] 2 MIN PRN, opioid reversal, Starting on 12/27/23 at 0517, Administer intramuscular if an intravenous route is [...] 2 MIN PRN, opioid reversal, Starting on 12/27/23 at 0517, Administer intravenous route when available and notify [...] 2 MIN PRN, opioid reversal, Starting on 12/27/23 at 0517, Administer intramuscular if an intravenous route is [...] Routine, 100 mg, Oral, DAILY, First dose on Thu12/27/23 at 0800, Indications: Perioperative Pharmacoprophylaxis $Given 12/29/2023 8:57 AM CDT 100 mg $Given 12/28/2023 8:15 AM CDT 100 mg $Given 12/27/2023 8:44 AM CDT 100 mg ondansetron (ZOFRAN ODT) ODT tab 4 mg 4 mg, Oral, EVERY 6 HOURS PRN, nausea, vomiting, Starting on Thu12/27/23 at 0510, This is Step 1 of nausea and vomiting management. If nausea not resolved in 15 minutes, go to Step 2 prochlorperazine (COMPAZINE). With dry hands, peel back foil backing and gently remove tablet. Do not push oral disintegrating tablet through foil backing. Administer immediately on tongue and oral disintegrating tablet dissolves in seconds, then swallow with saliva. Liquid not required. ondansetron (ZOFRAN) injection 4 mg 4 mg, Intravenous, EVERY 6 HOURS PRN, nausea, vomiting, Administer over 2-5 Minutes, Starting on 12/27/23 at 0510, Give IF patient unable to tolerate oral medication. This is Step 1 of nausea and vomiting management. If nausea not resolved in 15 minutes, go to Step 2 prochlorperazine (COMPAZINE). oxyCODONE (ROXICODONE) tablet 5 mg 5 mg, Oral, EVERY 4 HOURS PRN, severe pain, IF pain not managed with non-pharmacological and non-opioid interventions, Starting on 12/27/23 at 0510, May use concomitant with non-opioid analgesics. $Given 12/28/2023 5:04 PM CDT 5 mg $Given 12/27/2023 5:26 PM CDT 5 mg $Given 12/27/2023 12:10 PM CDT 5 mg oxyCODONE IR (ROXICODONE) half-tab 2.5 mg 2.5 mg, Oral, EVERY 4 HOURS PRN, moderate pain, IF pain not managed with non-pharmacological and non-opioid interventions, Starting on 12/27/23 at 0510, May use concomitant with non-opioid analgesics. prochlorperazine (COMPAZINE) injection 10 mg 10 mg, Intravenous, EVERY 6 HOURS PRN, nausea, vomiting, Administer over 1-2 Minutes, Starting on 12/27/23 at 0510, IF patient unable to tolerate oral medication. This is Step 2 of nausea and vomiting management. Give if nausea not resolved 15 minutes after giving ondansetron (ZOFRAN). prochlorperazine (COMPAZINE) suppository 25 mg 25 mg, Rectal, EVERY 12 HOURS PRN, nausea, vomiting, Starting on 12/27/23 at 0510, This is Step 2 of nausea and vomiting management. Give if nausea not resolved 15 minutes after giving ondansetron (ZOFRAN). prochlorperazine (COMPAZINE) tablet 10 mg 10 mg, Oral, EVERY 6 HOURS PRN, vomiting, Starting on 12/27/23 at 0510, This is Step 2 of nausea and vomiting management. Give if nausea not resolved 15 minutes after giving ondansetron (ZOFRAN). senna-docusate (SENOKOT-S/PERICOLACE) 8.6-50 MG per tablet 1 tablet 1 tablet, Oral, 2 TIMES DAILY, First dose on Thu12/27/23 at 1130, Hold for loose stools. $Given 12/29/2023 8:57 AM CDT 1 tablet $Given 12/28/2023 7:43 PM CDT 1 tablet $Given 12/28/2023 8:16 AM CDT 1 tablet sodium chloride (PF) 0.9% PF flush 10-20 mL 10-20 mL, Intracatheter, EVERY 1 MIN PRN, line flush, post meds or blood draw, to flush each lumen of the CVC Implanted port, Starting on Thu12/29/23 at 1120, 10 mL per port lumen post IV meds; 20 mL per port lumen post post blood draw. sodium chloride (PF) 0.9% PF flush 10-20 mL 10-20 mL, Intracatheter, EVERY 1 HOUR PRN, other, to de-access port when not in use, Starting on Thu12/29/23 at 1120, Use sodium chloride 0.9% at least daily to de-access each port and lock dormant implanted port while not in use. Flush each port access with 10 mL sodium chloride 0.9% MAX: 10 mL per each port lumen sodium chloride (PF) 0.9% PF flush 10-20 mL 10-20 mL, Intracatheter, EVERY 28 DAYS, First dose on Thu12/29/23 at 1130, To flush and lock each port in dual implanted port. Flush each port with 10 mL sodium chloride 0.9% followed by either heparin or anticoagulant citrate as ordered. Max: 10 mL per each port lumen. sodium chloride (PF) 0.9% PF flush 3 mL 3 mL, Intracatheter, EVERY 8 HOURS, First dose on Thu12/27/23 at 0530, to lock peripheral IV dormant line $Given 12/27/2023 8:53 PM CDT 3 mLs $Given 12/27/2023 1:31 PM CDT 3 mLs $Given 12/27/2023 6:06 AM CDT 3 mLs sodium chloride (PF) 0.9% PF flush 3 mL 3 mL, Intracatheter, EVERY 1 MIN PRN, line flush, other, to ensure patency or to lock dormant line, Starting on 7/28/24 at 0502 documented in this encounter Active and Recently Administered Medications Times are shown in CDT. Scheduled Medication Order 12/27/2023 12/28/2023 12/29/2023 acetaminophen (TYLENOL) tablet 650 mg 650 mg, Oral, 3 TIMES DAILY, First dose (after last modification) on 12/27/23 at 1400, Maximum acetaminophen dose from all sources = 75 mg/kg/day not to exceed 4 grams/day. 1332 ($Given - Provider: Nick Sanderson RN)2052 ($Given - Provider: Nanci Cowart, CARLOS) 0816 ($Given - Provider: Becca Workman RN)1324 ($Given - Provider: Jenni Vela RN)1943 ($Given - Provider: Omega Livingston RN) 0857 ($Given - Provider: Jenni Vela RN)1400 (Canceled Entry - Provider: Orders Generic Provider - Comment: Automatically canceled at discontinue of medication order) acetaminophen (TYLENOL) tablet 975 mg (CANCELED) 975 mg, Oral, 3 TIMES DAILY, First dose on 12/27/23 at 0800, Maximum acetaminophen dose from all sources = 75 mg/kg/day not to exceed 4 grams/day. 0844 ($Given - Provider: Nick Sanderson RN) bisacodyl (DULCOLAX) suppository 10 mg 10 mg, Rectal, DAILY, First dose on 12/27/23 at 1130, Hold for loose stools. 1209 ($Given - Provider: Nick Sanderson RN) 1658 ($Given - Provider: Jenni Vela RN) 0857 (Not Given - Provider: Jenni Vela RN - Reason: Patient/family refused) calcium gluconate 1 g in 50 mL in sodium chloride intermittent infusion (COMPLETED) 1 g, Intravenous, Administer over 60 Minutes, ONCE, On 12/27/23 at 2000, For 1 dose, Do not infuse in the same IV line as phosphate-containing solutions 2310 ($Given - Provider: Nanci Cowart, CARLOS) heparin ANTICOAGULANT injection 5,000 Units 5,000 Units, Subcutaneous, EVERY 8 HOURS, First dose on 12/27/23 at 1200, HOLD heparin IF platelet count falls below 50% baseline or less than 100,000 / ??L and notify provider. Use this product If CrCl less than 30 mL/min. High concentration heparin. Not for line flush or cath care. 1210 ($Given - Provider: Nick Sanderson RN)2053 ($Given - Provider: Nanci Cowart, CARLOS) 0434 ($Given - Provider: Nanic Cowart, RN)1235 ($Given - Provider: Becca Workman, CARLOS)1943 ($Given - Provider: Omega Livingston, CARLOS) 0355 ($Given - Provider: Omega Livingston, CARLOS)1200 (Canceled Entry - Provider: Orders Generic Provider - Comment: Automatically canceled at discontinue of medication order) heparin lock flush 10 unit/mL injection 5-10 mL 5-10 mL, Intracatheter, EVERY 24 HOURS, First dose on Thu12/29/23 at 1130, To lock each dormant port in dual implanted port. MAX: 5 mL of heparin for each lumen Check PRN heparin flush order to see when the last dose of the PRN heparin was given before administering this heparin dose. Flush with sodium chloride 0.9% followed by the heparin flush. 1135 ($Given - Provider: Jennifer Baker RN) heparin lock flush 100 unit/mL injection 5-10 mL 5-10 mL, Intracatheter, EVERY 28 DAYS, First dose on Thu12/29/23 at 1130, To de-access each port in dual implanted port. Flush with 10 mL NS sodium chloride 0.9% flush followed by 5 mL heparin (100 units/mL) at discharge and at least every 28 days. MAX: 5 mL per each port lumen 1130 (Canceled Entry - Provider: Orders Generic Provider - Comment: Automatically canceled at discontinue of medication order) magnesium hydroxide (MILK OF MAGNESIA) suspension 30 mL 30 mL, Oral, DAILY, First dose on Thu12/27/23 at 1230, Shake well. Hold for loose stools. 1334 ($Given - Provider: Nick Sanderson RN) 0923 ($Given - Provider: Becca Workman, CARLOS) 0857 ($Given - Provider: Jenni Vela RN) nitroFURantoin macrocrystal-monohydrate (MACROBID) capsule 100 mg Routine, 100 mg, Oral, DAILY, First dose on Thu12/27/23 at 0800, Indications: Perioperative Pharmacoprophylaxis 0844 ($Given - Provider: Nick Sanderson RN) 0815 ($Given - Provider: Becca Workman, CARLOS) 0857 ($Given - Provider: Jenni Vela, CARLOS) senna-docusate (SENOKOT-S/PERICOLACE) 8.6-50 MG per tablet 1 tablet 1 tablet, Oral, 2 TIMES DAILY, First dose on Thu12/27/23 at 1130, Hold for loose stools. 1209 ($Given - Provider: Nick Sanderson RN)2051 ($Given - Provider: Nanci Cowart RN) 0816 ($Given - Provider: Becca Workman, CARLOS)1943 ($Given - Provider: Omega Livingston, CARLOS) 0857 ($Given - Provider: Jenni Vela RN) sodium chloride (PF) 0.9% PF flush 10-20 mL 10-20 mL, Intracatheter, EVERY 28 DAYS, First dose on Thu12/29/23 at 1130, To flush and lock each port in dual implanted port. Flush each port with 10 mL sodium chloride 0.9% followed by either heparin or anticoagulant citrate as ordered. Max: 10 mL per each port lumen. 1130 (Canceled Entry - Provider: Orders Generic Provider - Comment: Automatically canceled at discontinue of medication order) sodium chloride (PF) 0.9% PF flush 3 mL 3 mL, Intracatheter, EVERY 8 HOURS, First dose on Thu12/27/23 at 0530, to lock peripheral IV dormant line 0606 ($Given - Provider: Lauren Eli RN)1331 ($Given - Provider: Nick Sanderson RN)2052 ($Given - Provider: Nanci Cowart RN) 0437 (Not Given - Provider: Nanci Cowart RN - Reason: IV Infusing)1233 (Not Given - Provider: Becca Workman RN - Reason: IV Infusing)2056 (Not Given - Provider: Omega Livingston RN - Reason: IV Infusing) 0435 (Not Given - Provider: Omega Livingston RN - Reason: IV Infusing)1330 (Canceled Entry - Provider: Orders Generic Provider - Comment: Automatically canceled at discontinue of medication order) Continuous Medication Order 12/27/2023 12/28/2023 12/29/2023 dextrose 5% and 0.45% NaCl 1,000 mL with potassium chloride 10 mEq/L infusion (CANCELED) 1,000 mL, at 100 mL/hr, Intravenous, CONTINUOUS, Starting on Thu12/27/23 at 0530, Until Thu12/29/23 at 0653 0606 ($New Bag - Provider: Lauren Eli RN)1714 ($New Bag - Provider: Wayne Barahona RN) 1822 ($New Bag - Provider: Jenni Vela, CARLOS) 0355 ($New Bag - Provider: Omega Livingston RN)0855 (Stopped - Provider: Jenni Vela RN) PRN Medication Order 12/27/2023 12/28/2023 12/29/2023 acetaminophen-caffeine (EXCEDRIN TENSION HEADACHE) 500-65 MG tablet 2 tablet 2 tablet, Oral, EVERY 6 HOURS PRN, mild pain, PRN HEADACHE, Starting on Thu12/27/23 at 1110, Each tablet contains 500 mg APAP benzocaine-menthol (CHLORASEPTIC) 6-10 MG lozenge 1 lozenge 1 lozenge, Buccal, EVERY 1 HOUR PRN, sore throat, without fever, Starting on Thu12/27/23 at 0510 calcium carbonate (TUMS) chewable tablet 1,000 mg 1,000 mg, Oral, 4 TIMES DAILY PRN, heartburn, Starting on Thu12/27/23 at 0502 gabapentin (NEURONTIN) capsule 100 mg 100 mg, Oral, 3 TIMES DAILY PRN, other, pain, Starting on Thu12/27/23 at 0513 heparin lock flush 10 unit/mL injection 5-10 mL 5-10 mL, Intracatheter, EVERY 1 HOUR PRN, post meds or blood draw, other, to lock each port in dual implanted port, Starting on Thu12/29/23 at 1120, Flush each port lumen with the sodium chloride 0.9% flush followed by the heparin flush. MAX dose: 5 mL of heparin for each lumen hydrALAZINE (APRESOLINE) injection 10 mg(Linked Group 1) 10 mg, Intravenous, EVERY 4 HOURS PRN, high blood pressure, for systolic BP greater than 180 mmHg, Administer over 1 Minutes, Starting on 12/27/23 at 0509 hydrALAZINE (APRESOLINE) tablet 10 mg(Linked Group 1) 10 mg, Oral, EVERY 4 HOURS PRN, high blood pressure, for systolic BP greater than 180 mmHg, Starting on 12/27/23 at 0509 HYDROmorphone (DILAUDID) injection 0.2 mg 0.2 mg, Intravenous, EVERY 2 HOURS PRN, moderate pain, IF patient cannot take oral opioid OR IF pain not managed with non-pharmacological, non-opioid, or oral opioid interventions if ordered, Starting on 12/27/23 at 0510, May use concomitant with non-opioid analgesics. HYDROmorphone (DILAUDID) injection 0.4 mg 0.4 mg, Intravenous, EVERY 2 HOURS PRN, severe pain, IF patient cannot take oral opioid OR IF pain not managed with non-pharmacological, non-opioid, or oral opioid interventions if ordered, Starting on 12/27/23 at 0510, May use concomitant with non-opioid analgesics. lidocaine (LMX4) cream Topical, EVERY 1 HOUR PRN, pain, with VAD insertion, Starting on 12/27/23 at 0502, Apply at least 30 minutes prior to [...] mild pain with VAD insertion, Starting on 12/27/23 at 0502, MAX dose 1 mL subcutaneous OR intradermal along the side of the vein in divided doses as needed for VAD insertion. Do NOT give if patient has a history of allergy to any local anesthetic or any pepe product. Do NOT use both lidocaine intradermal/subcutaneous injection and the lidocaine cream on the same site. melatonin tablet 5 mg 5 mg, Oral, AT BEDTIME PRN, sleep, Starting on 12/27/23 at 0510, Do not give unless at least 6 hours of uninterrupted sleep is expected. If patient has multiple medications ordered PRN sleep/insomnia, offer melatonin first. methocarbamol (ROBAXIN) tablet 750 mg 750 mg, Oral, 4 TIMES DAILY PRN, muscle spasms, Starting on 12/27/23 at 0513 naloxone (NARCAN) injection 0.2 mg(Linked Group 2) 0.2 mg, Intravenous, EVERY 2 MIN PRN, opioid reversal, Starting on 12/27/23 at 0517, Administer intravenous route when available and notify [...] 2 MIN PRN, opioid reversal, Starting on 12/27/23 at 0517, Administer intramuscular if an intravenous route is [...] 2 MIN PRN, opioid reversal, Starting on 12/27/23 at 0517, Administer intravenous route when available and notify [...] 2 MIN PRN, opioid reversal, Starting on 12/27/23 at 0517, Administer intramuscular if an intravenous route is [...] 6 HOURS PRN, nausea, vomiting, Starting on 12/27/23 at 0510, This is Step 1 of nausea and vomiting management. If nausea not resolved in 15 minutes, go to Step 2 prochlorperazine (COMPAZINE). With dry hands, peel back foil backing and gently remove tablet. Do not push oral disintegrating tablet through foil backing. Administer immediately on tongue and oral disintegrating tablet dissolves in seconds, then swallow with saliva. Liquid not required. ondansetron (ZOFRAN) injection 4 mg(Linked Group 3) 4 mg, Intravenous, EVERY 6 HOURS PRN, nausea, vomiting, Administer over 2-5 Minutes, Starting on 12/27/23 at 0510, Give IF patient unable to tolerate oral medication. This is Step 1 of nausea and vomiting management. If nausea not resolved in 15 minutes, go to Step 2 prochlorperazine (COMPAZINE). oxyCODONE (ROXICODONE) tablet 5 mg 5 mg, Oral, EVERY 4 HOURS PRN, severe pain, IF pain not managed with non-pharmacological and non-opioid interventions, Starting on 12/27/23 at 0510, May use concomitant with non-opioid analgesics. 0522 ($Given - Provider: Lauren Eli RN)1210 ($Given - Provider: Nick Sanderson, CARLOS)1726 ($Given - Provider: Wayne Barahona RN) 1704 ($Given - Provider: Jenni Vela RN) oxyCODONE IR (ROXICODONE) half-tab 2.5 mg 2.5 mg, Oral, EVERY 4 HOURS PRN, moderate pain, IF pain not managed with non-pharmacological and non-opioid interventions, Starting on 12/27/23 at 0510, May use concomitant with non-opioid analgesics. prochlorperazine (COMPAZINE) injection 10 mg(Linked Group 4) 10 mg, Intravenous, EVERY 6 HOURS PRN, nausea, vomiting, Administer over 1-2 Minutes, Starting on 12/27/23 at 0510, IF patient unable to tolerate oral medication. This is Step 2 of nausea and vomiting management. Give if nausea not resolved 15 minutes after giving ondansetron (ZOFRAN). prochlorperazine (COMPAZINE) suppository 25 mg(Linked Group 4) 25 mg, Rectal, EVERY 12 HOURS PRN, nausea, vomiting, Starting on Thu12/27/23 at 0510, This is Step 2 of nausea and vomiting management. Give if nausea not resolved 15 minutes after giving ondansetron (ZOFRAN). prochlorperazine (COMPAZINE) tablet 10 mg(Linked Group 4) 10 mg, Oral, EVERY 6 HOURS PRN, vomiting, Starting on Thu12/27/23 at 0510, This is Step 2 of nausea and vomiting management. Give if nausea not resolved 15 minutes after giving ondansetron (ZOFRAN). sodium chloride (PF) 0.9% PF flush 10-20 mL 10-20 mL, Intracatheter, EVERY 1 MIN PRN, line flush, post meds or blood draw, to flush each lumen of the CVC Implanted port, Starting on Thu12/29/23 at 1120, 10 mL per port lumen post IV meds; 20 mL per port lumen post post blood draw. sodium chloride (PF) 0.9% PF flush 10-20 mL 10-20 mL, Intracatheter, EVERY 1 HOUR PRN, other, to de-access port when not in use, Starting on Thu12/29/23 at 1120, Use sodium chloride 0.9% at least daily to de-access each port and lock dormant implanted port while not in use. Flush each port access with 10 mL sodium chloride 0.9% MAX: 10 mL per each port lumen sodium chloride (PF) 0.9% PF flush 3 mL 3 mL, Intracatheter, EVERY 1 MIN PRN, line flush, other, to ensure patency or to lock dormant line, Starting on Thu12/27/23 at 0502 Linked Groups Order Group 1: hydrALAZINE (APRESOLINE) tablet 10 mgJump to med 10 mg, Oral, EVERY 4 HOURS PRN, high blood pressure, for systolic BP greater than 180 mmHg, Starting on Thu12/27/23 at 0509 Or hydrALAZINE (APRESOLINE) injection 10 mgJump to med 10 mg, Intravenous, EVERY 4 HOURS PRN, high blood pressure, for systolic BP greater than 180 mmHg, Administer over 1 Minutes, Starting on 12/27/23 at 0509 Group 2: naloxone (NARCAN) injection 0.2 mgJump to med 0.2 mg, Intravenous, EVERY 2 MIN PRN, opioid reversal, Starting on 12/27/23 at 0517, Administer intravenous route when available and notify [...] 2 MIN PRN, opioid reversal, Starting on Thu12/27/23 at 0517, Administer intravenous route when available and notify [...] 2 MIN PRN, opioid reversal, Starting on Thu12/27/23 at 0517, Administer intramuscular if an intravenous route is [...] 2 MIN PRN, opioid reversal, Starting on Thu12/27/23 at 0517, Administer intramuscular if an intravenous route is [...] 6 HOURS PRN, nausea, vomiting, Starting on Thu12/27/23 at 0510, This is Step 1 of nausea and vomiting management. If nausea not resolved in 15 minutes, go to Step 2 prochlorperazine (COMPAZINE). With dry hands, peel back foil backing and gently remove tablet. Do not push oral disintegrating tablet through foil backing. Administer immediately on tongue and oral disintegrating tablet dissolves in seconds, then swallow with saliva. Liquid not required. Or ondansetron (ZOFRAN) injection 4 mgJump to med 4 mg, Intravenous, EVERY 6 HOURS PRN, nausea, vomiting, Administer over 2-5 Minutes, Starting on 12/27/23 at 0510, Give IF patient unable to tolerate oral medication. This is Step 1 of nausea and vomiting management. If nausea not resolved in 15 minutes, go to Step 2 prochlorperazine (COMPAZINE). Group 4: prochlorperazine (COMPAZINE) injection 10 mgJump to med 10 mg, Intravenous, EVERY 6 HOURS PRN, nausea, vomiting, Administer over 1-2 Minutes, Starting on 12/27/23 at 0510, IF patient unable to tolerate oral medication. This is Step 2 of nausea and vomiting management. Give if nausea not resolved 15 minutes after giving ondansetron (ZOFRAN). Or prochlorperazine (COMPAZINE) tablet 10 mgJump to med 10 mg, Oral, EVERY 6 HOURS PRN, vomiting, Starting on 12/27/23 at 0510, This is Step 2 of nausea and vomiting management. Give if nausea not resolved 15 minutes after giving ondansetron (ZOFRAN). Or prochlorperazine (COMPAZINE) suppository 25 mgJump to med 25 mg, Rectal, EVERY 12 HOURS PRN, nausea, vomiting, Starting on 12/27/23 at 0510, This is Step 2 of nausea and vomiting management. Give if nausea not resolved 15 minutes after giving ondansetron (ZOFRAN). documented in this encounter Care Teams Video Specialist Relationship Specialty Start Date End Date No Ref-Primary, Physician PCP - General 12/22/23 12/27/23 VoteBhavin ferrara: [phone] [address] [place] [address] PCP - General Family Medicine 12/28/23 Alvaro Clark MD [address] [place] [id number] Assigned Surgical Provider 07/24/23 Yessica Mcleod PA-C [address] [place] [id number] Assigned Cancer Care Provider 12/22/23 documented as of this encounter
--- OUTSIDE RECORDS SUMMARY | 2024-01-18 03:59 | XMS_ITS | Encounter Summary ---
Author Organization [facility] Address [address] [place] [id number] Care Team Providers Care [employer] Travel Counselor Name Role Phone Alvaro Clark MD Unavailable Yessica Mcleod PA-C Unavailable Bhavin Gardner Primary Care Provider [phone] Reason for Visit * Reason Comments Catheter Problem Encounter Details Date Type Department Care Team (Late st Contact Info) Description 12/30/2023 10:12 PM CDT - 12/31/2023 1:28 AM CDT [facility] Emergency Dept [address] [place] [address] Kandi Morales MD [facility] [address] [place], [place] [id number] Problem with Parry catheter, initial encounter (H24) Discharge Disposition: Home or Self Care Social [...] Sign Reading Time Taken Comments Blood Pressure 123/72 12/30/2023 10:45 PM CDT Pulse 90 12/30/2023 10:52 PM CDT Temperature 36.8 ??C (98.2 ??F) 12/30/2023 9:48 PM CD T Respiratory Rate 18 12/30/2023 10:45 PM CDT Oxygen Saturation 100% 12/30/2023 11:14 PM CDT Inhaled Oxygen Concentration - - Weight 83.1 kg (183 lb 3.2 oz) 12/30/2023 9:44 P M CDT Height - - Body Mass Index 27.86 12/27/2023 5:00 AM CDT documented in this encounter Discharge Instructions * Discharge Instructions* Kandi Morales MD - 12/31/2023 1:18 AM CDT We were able to flush your Parry several times a day to clear out the clot. We recommend they follow-up closely with your urologist. Discussed the difficulty with the recurrent clots with the urologist to ensure they do not want to do anything different as an outpatient for managing this. Return tot ER if you are unable to flush clots, Parry catheter is not draining, fevers or chills or other concerns or develop. documented in this encounter Medications at Time [...] tablet 12/25/2023 documented as of this encounter ED Notes * Lila Monson RN - 12/31/2023 1:27 AM CDT Pt discharged, AVS given, Health teaching rendered, Offered wheelchair pt declines. * Yolie Pederson RN - 12/31/2023 12:06 AM CDT Pt parry irrigated x7 with 30cc fluid with MD at bedside. Fluid is clear and parry irrigated of many calderon flecks. Pt denies any discomfort throughout process. * Yolie Pederson RN - 12/30/2023 11:25 PM CDT Pt catheter flushed x2 with ml of sterile water. Catheter flushes with no resistance but when pulling back hs resistance. Catheter hooked back to bag and drains pink tinged clear fluid which is equalto the amount flushed into catheter. made aware * Jyoti Cowan RN - 12/30/2023 9:46 PM CDT Pt to ER w c/o catheter problem. Pt has hx bladder cx. Had bladder replacement of 12/21. Has had parry catheter since and urine has been bloody. Tonight pt c/o catheter being clogged and need to be flushed. Pt denies pain. VSS, ABCs intact, A&Ox4. * Kandi Morales MD - 12/30/2023 9:40 PM CDT Emergency Department Note History of Present Illness Chief Complaint Catheter Problem HPI Oleg Richard is a 63 year old male who presents to the emergency department for difficulty flushing his catheter. Patient is on Xarelto. 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 Theyhave been flushing the catheter twice a day as instructed but today wants a place of liquid into the bladder we are unable to flush it out. They note some clots in the urine. He denies any abdominal pain, fevers, chills, nausea, vomiting etc. The urine has been bloody since his procedure. He was recently discharged for postoperative ileus. Independent Historian None Review of External Notes Reviewed discharge summary from 12/27/2023. 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 (H) Medications acetaminophen (TYLENOL) 325 MG tablet acetaminophen-caffeine (EXCEDRIN TENSION HEADACHE) 500-65 MG TABS apixaban ANTICOAGULANT (ELIQUIS) 2.5 MG tablet diphenhydrAMINE HCl (BENADRYL ALLERGY PO) gabapentin (NEURONTIN) 100 MG capsule methocarbamol (ROBAXIN) 750 MG tablet nitroFURantoin macrocrystal-monohydrate (MACROBID) 100 MG capsule polyethylene glycol (MIRALAX) 17 GM/Dose powder senna-docusate (SENOKOT-S/PERICOLACE) 8.6-50 MG tablet Surgical History Past Surgical History: Procedure Laterality Date CYSTECTOMY [...] BLADDER TUMOR; Surgeon: Alvaro Clark MD; Location: [facility] OR Physical Exam Patient Vitals for the past 24 hrs: BP Temp Temp src Pulse Resp SpO2 Weight 12/30/23 2314 -- -- -- -- -- 100 % -- 12/30/23 2252 -- -- -- 90 -- 98 % -- 12/30/23 2245 123/72 -- -- 97 18 98 % -- 12/30/232147 106/60 98.2 ??F (36.8 ??C) Temporal 106 18 98 % -- 12/30/232143 -- -- -- -- -- -- 83.1 kg (183 lb 3.2 oz) Physical Exam General: Resting on the bed. Head: No obvious trauma to head. Ears, Nose, Throat: External ears normal. Nose normal. Eyes: Conjunctivae clear. Pupils are equal, round, and reactive. Neck: Normal range of motion. Neck supple. CV: Regular rate and rhythm. No murmurs. Respiratory: Effort normal and breath sounds normal. No wheezing or crackles. Gastrointestinal: Soft. No distension. There is no tenderness. There is no rigidity, no rebound andno guarding. Dry and intact midline suprapubic incision. Parry catheter out of the penis draining bright red urine. Old ETHAN drain site with a urostomy bag overlying it in the right suprapubic area. Neuro: Alert. Moving all extremities appropriately. Normal speech. Skin: Skin is warm and dry. No rash noted. Diagnostics Lab Results Labs Ordered and Resulted from Time of ED Arrival to Time of ED Departure - No data to display Imaging No orders to display Independent Interpretation None ED Course Medications Administered Medications - No data to display Procedures Procedures Discussion of Management None ED Course ED Course as of 12/31/23 0120 Fiona Dec 31, 2023 0003 With nurse at bedside we flushed catheter 6-7 times and were able to get the urine to clear clots and turn pale pink. Catheter draining well. 0119 Reassessed the patient. He reports that he feels marvelous. Wishes to leave. Informed patient that I was unable to speak with urology but he will follow-up with them. Additional Documentation None Medical Decision Making / Diagnosis [facility] Diagnoses: None MIPS None MDM Oleg Richard is a 63 year old male who presents to the emergency department with difficulty draining the Parry catheter bag. Vitals are stable. Broad differentials considered include not limited to clots, UTI, dehydration, Parry catheter dysfunction, etc. Patient has a neobladder. Parry catheter is in place for postoperative management. Patient reports that he has had bloody urine since discharge. Today he had difficulty pulling back fluid after flushing it. Instructions had been to flush it twice daily. The on-call resident recommended flushing additional times but caregiver is unable to pull back the fluid normally prompting the ER visit. Patient denies any fevers or chills. Denies any vomiting. Denies any abdominal pain. No obvious signs of postoperative infection based on clinical examination. UA is bloody. Patient is on a blood thinner. With nurse at bedside we are able to flush the catheter several times and were able to flush out majority of the clots. Thereafter the Parry catheter appeared to be draining nicely. Urine was baseline pink according to the patient. He denies any fevers or chills. Denies any nausea or vomiting. Denies any other new concerns. At this point patient feels well. With Parry catheter draining well he wishes to go home. Attempted to contact urologybut unable to get a hold of him and patient wishing to go home. Given the patient's catheter is draining he is close follow- up with urology this seems appropriate. Discussed return precaution including Parry catheter not draining, fevers etc. Patient was discharged. Disposition The patient was discharged. Diagnosis ICD-10-CM 1. Problem with Parry catheter, initial encounter (H24) T83.9XXA Discharge Medications New Prescriptions No medications on file MD Andrew Blanco Jennifer L, MD 12/31/23 0123 documented in this encounter Plan of Treatment Upcoming Encounters Date Type Department Care Team (Late st Contact Info) Description 03/04/2024 8:00 AM CDT Oncology Visit [facility] [address] [facility] [address] [facility] [place] [id number] Ky Torres MD [address] [facility] [address] [place], [place] [phone] documented as of this encounter Visit Diagnoses Diagnosis Problem with Parry catheter, initial encounter (H24) documented in this encounter Care Teams [employer] Travel Counselor Relationship Specialty Start Date End Date VotelBhavin [address] [place] [address] PCP - General Family Medicine 12/28/23 Alvaro Clark MD [address] [facility] [address] [place], [place] [phone] Assigned Surgical Provider 07/24/23 Yessica Mcleod, PAJannetC [address] [place] [phone] Assigned Cancer Care Provider 12/22/23 documented as of this encounter
--- OUTSIDE RECORDS SUMMARY | 2024-01-18 03:59 | XMS_ITS | Encounter Summary ---
Author Organization [facility] Address [address] [place] [address] Care Team Providers Care Avionics Integration Engineer Name Role Phone Alvaro Clark MD Unavailable Yessica Mcleod PA-C Unavailable Bhavin Gardner Primary Care Provider [phone] Reason for Referral * Diagnostic Imaging CT Scan (Routine) - Closed Specialty Diagnoses / Procedures Referred By Virgil ca Referred To Contact Radiology. 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) Procedures CT Chest/Abdomen/Pelvis w Contrast Yessica Mcleod PA-C [address] [place] [phone] Scan [address] [place] [address] Referral ID Status Reason Start Date Expiration Date Visits Re quested Visits Authorized [id number] Closed 11/27/2023 11/26/2024 1 1 Encounter Details Date Type Department Care Team (Latest Contact Info) Description 01/13/2024 1:02 PM CDT - 01/13/2024 11:59 PM CDT Hospital Encounter [facility] [address] [place] [address] Yessica Mcleod, RONALD [address] [place] [address] Urothelial cancer (H); Malignant neoplasm of trigone [...] tablet 12/25/2023 documented as of this encounter Plan of Treatment Upcoming Encounters Date Type Department Care Team (Late st Contact Info) Description 03/04/2024 8:00 AM CDT Oncology Visit [address] DAISY 200 [facility] [place] [address] Ky Torres MD [address] [id number] documented as of this encounter Procedures Procedure Name Priority Date/Time Associated Diagnosis Comments CT CHEST/ABDOMEN/PELVI S W CONTRAST Routine 01/13/2024 1:26 PM CDT Urothelial cancer (H) 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 DAWSON KNOWLES MD Narrative 01/14/2024 8:[address] [...] lesions within the bones. Procedure Note Dawson Knowles MD - 01/14/2024 CT CHEST/ABDOMEN/PELVIS W CONTRAST [...] disease in the chest or abdomen. DAWSON KNOWLES MD Yessica Haynes PA-C IMKeo CT ORDERABLES documented in this encounter Visit [...] Date Dose Rate Site iopamidol (ISOVUE-370) solution 90 mL 90 mL, Intravenous, ONCE, On Thu01/13/24 at 1330, For 1 dose $Given 01/13/2024 1:29 PM CDT 90 mLs documented in this encounter Care Teams Avionics Integration Engineer Relationship Specialty Start Date End Date Votel, Bhavin Ford [address] [place] [address] PCP - General Family Medicine 12/28/23 Alvaro Clark MD [address] [place] [id number] Assigned Surgical Provider 07/24/23 Yessica Mcleod PA-C [address] [place] [phone] Assigned Cancer Care Provider 12/22/23 documented as of this encounter
--- OUTSIDE RECORDS SUMMARY | 2024-01-18 03:59 | XMS_ITS | Encounter Summary ---
Author Organization [facility] Address [address] [place] [address] Care Team Providers Care Mounting Inspector Name Role Phone Alvaro Clark MD Unavailable Yessica Mcleod PA-C Unavailable VoteBhavin ferrara Primary Care Provider [phone] Encounter Details Date Type Department Care Team (Latest Contact Info) Description 01/13/2024 Travel Social History Tobacco Use Types Packs/Day [...] Description 03/04/2024 8:00 AM CDT Oncology Visit [facility] [address] [place] [address] [address] 200 [facility] [place] [phone] Ky Torres MD 420 [facility] [address] [place], [place] [address] documented as of this encounter Visit Diagnoses Not on filedocumented in this encounter Care Teams Mounting Inspector Relationship Specialty Start Date End Date DaoteBhavin ferrara [address] [place] [address] PCP - General Family Medicine 12/28/23 Alvaro Clark MD [address] [place] [address] [phone] Assigned Surgical Provider 07/24/23 Yessica Mcleod PA-C [address] [place] [address] [phone] Assigned Cancer Care Provider 12/22/23 documented as of this encounter
--- OUTSIDE RECORDS SUMMARY | 2024-01-18 03:59 | XMS_ITS | Encounter Summary ---
Author Organization [facility] Address [address] [place] [address] Care Team Providers Care Montessori Toddler Teacher Name Role Phone Alvaro Clark MD Unavailable No Ref-Primary, Physician Primary Care Provider Yessica Mcleod PA-C Unavailable Bhavin Gardner Primary Care Provider [phone] Encounter Details Date Type Department Care Team (Late st Contact Info) Description 12/26/2023 My[facility] Medical Advice [address] VILLA [address]15 [facility] [place] [phone] Alvaro Clark MD 420 [facility] [address] [place] [address] Social History Tobacco Use Types [...] Description 03/04/2024 8:00 AM CDT Oncology Visit [address] VILLA 200 [facility] [place] [phone] Ky Torres MD 420 [facility] 480 [place], [place] [address] documented as of this encounter Visit Diagnoses Not on filedocumented in this encounter Care Teams Montessori Toddler Teacher Relationship Specialty Start Date End Date No Ref-Primary, Physician PCP - General 12/22/23 12/27/23 Bhavin Gardner [address] [place] [address] PCP - General Family Medicine 12/28/23 Alvaro Clark MD 420 [facility] [address] [place], [place] [address] Assigned Surgical Provider 07/24/23 Yessica Mcleod, PAJannetC [address] [place] [phone] Assigned Cancer Care Provider 12/22/23 documented as of this encounter
--- OUTSIDE RECORDS SUMMARY | 2024-01-18 03:59 | XMS_ITS | Referral Summary ---
Author Organization [place] Address [address] [place] [address] Care Team Providers Care Ladies Attendant Name Role Phone Alvaro Clark MD Unavailable Yessica Mcleod PA-C Unavailable Bhavin Gardner Primary Care Provider [phone] Encounters Date Type Department Care Team Description 01/15/[address] 200 [facility] [place] [address] Alvaro Clark MD Symptoms 01/15/2024 12:[address] 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) 01/15/2024 11:30 AM CDT Oncology Visit [place] [address] [place] 200 [facility] [place] [address] Ky Torres MD Urothelial cancer (H) (Primary Dx) 01/15/2024 10:30 AM CDT Office Visit [address] [place] 200 [facility] [place] [address] Alvaro Clark MD Urothelial cancer (H) (Primary Dx) 01/13/2024 Travel 01/13/2024 1:02 PM CDT - 01/13/2024 11:59 PM CDT Hospital Encounter [facility] Imaging [address] [place] [address] Yessica Mcleod PA-C Urothelial cancer (H); 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) Discharge Disposition: Home or Self Care 01/13/2024 12:45 PM CDT Lab [facility] Ctr [address] [place] [address] Alvaro Clark MD Urothelial cancer (H) 01/07/[address] [place] 200 [facility] [place] [address] Alvaro Clark MD Medication Request 01/02/2024 Team Conference [facility] [address] [phone] Guillaume Brenner MD 01/01/2024 Travel 01/01/2024 9:45 AM CDT Office Visit [address] [place] 200 [facility] [place] [address] Alvaro Clark MD Urothelial cancer (H) (Primary Dx) 12/30/2023 10:12 PM CDT - 12/31/2023 1:28 AM CDT Emergency [facility] [address] [place] [address] Kandi Morales MD Problem with Isaac catheter, initial encounter (H24) Discharge Disposition: Home or Self Care 12/30/2023 Travel 12/27/2023 4:52 AM CDT - 12/29/2023 1:34 PM CDT Hospital Encounter [facility] Unit 8A [facility] [place] [address] Fernando Romero MD Discharge Disposition: Home or Self Care 12/26/2023 MyC Medical Advice [facility] [address] [place] 200 [facility] [place] [address] Alvaro Clark MD 12/22/2023 5:50 AM CDT - 12/25/2023 3:50 PM CDT Hospital Encounter [facility] Unit [address] [place] [address] [place] [address] Alvaro Clark MD Postoperative state (Primary Dx); Bladder cancer (H); Urothelial cancer (H); Lesion of bladder; Post-op pain Discharge Disposition: Home or Self Care 12/22/2023 8:00 AM CDT - 12/22/2023 1:00 PM CDT Surgery [facility] PeriOp Services [address] [place] [address] Alvaro Clark MD CYSTECTOMY, pelvic node dissection WITH ILEAL NEOBLADDER CREATION 12/22/2023 7:48 AM CDT Anesthesia Event [facility] [address] [place] [address] Alf Olson MD Johnson, Ashley Keryn, APRN DIRECTOR OF TEENAGE ACTIVITIES 12/11/2023 Travel 12/11/2023 9:00 AM CDT Lab [facility] Lab [address] 1st [place] [phone] Preop examination; 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 (H) 12/11/2023 PRE VISIT [facility] [address] 5th [place] [phone] Rizwana Tejeda APRN DIRECTOR OF TEENAGE ACTIVITIES 12/11/2023 8:00 AM CDT Office Visit [facility] [address] 5th [place] [phone] Rizwana Tejeda APRN DIRECTOR OF TEENAGE ACTIVITIES Preop examination (Primary Dx); 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 (H) 12/08/2023 PRE VISIT [facility] [address] [place] [phone] Rizwana Tejeda APRN DIRECTOR OF TEENAGE ACTIVITIES 12/01/2023 MyC Medical Advice [address] [place] 200 [facility] [place] [address] Sabra Wilcox 12/01/2023 Orders Only [address] [place] 200 [facility] [place] [address] Dylan Guerin PA Urothelial cancer (H) (Primary Dx) 11/27/2023 Travel 11/27/2023 2:30 PM CDT Oncology Visit [address] [place] 200 [facility] [place] [address] Yessica Mcleod, RONALD Urothelial cancer (H) (Primary Dx); 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) Discharge Disposition: Home or Self Care 11/25/2023 10:56 AM CDT - 11/25/2023 2:17 PM CDT Hospital Encounter [facility] [address] [place] [address] Non- Credentialed Provider, Radiology Thuan Rodriguez MD Discharge Disposition: Home or Self Care 11/20/2023 Orders Only [facility] [address] 4th [place] [phone] Alvaro Clark MD 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 (H) (Primary Dx) 11/20/2023 Travel 11/20/2023 11:00 AM CDT Office Visit [address] [place] 200 [facility] [place] [phone] Alvaro Clark MD Urothelial cancer (H) (Primary Dx) 11/18/2023 Orders Only [facility] Services - Cancer Care Service Line [address] [place] [phone] Ky Torres MD 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) (Primary Dx) 11/17/2023 MyC Medical Advice [facility] [address] 610 [facility] Medical [place]tr [place] [place] [phone] Sixto Whalen APRN DIRECTOR OF TEENAGE ACTIVITIES 11/10/2023 1:48 PM CDT - 11/10/2023 11:59 PM CDT Hospital Encounter [facility] Imaging [address] [facility] [address] [place] [phone] Yessica Mcleod, RONALD Left leg swelling Discharge Disposition: Home or Self Care 11/10/2023 Travel 11/10/2023 8:30 AM CDT Infusion Therapy Visit [facility] [address] [place] [phone] Ky Torres MD Urothelial cancer (H) (Primary Dx) 11/10/2023 7:45 AM CDT Lab [address] [place] [phone] Ky Torres MD Urothelial cancer (H) (Primary Dx) 11/10/2023 8:00 AM CDT Oncology Visit [address] 200 [place] [phone] Yessica Mcleod PA-C Urothelial cancer (H) (Primary Dx); Left leg swelling 10/28/2023 9:00 AM CDT Infusion Therapy Visit [address] [place] [address] Yessica Mcleod PA-C Urothelial cancer (H) (Primary Dx) 10/27/2023 Travel 10/27/2023 2:30 PM CDT Virtual Visit [facility] [address] [place] [phone] Sixto Whalen APRN CNP Urothelial cancer (H) (Primary Dx); 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) 10/27/2023 12:30 PM CDT Lab [address] [place] [phone] Yessica Mcleod PA-C Urothelial cancer (H) (Primary Dx) 10/22/2023 Orders Only [facility]5 [place] [address] Luma Malcolm [facility] 10/21/2023 Travel 10/21/2023 9:00 AM CDT Ancillary Procedure [facility] [address] [place] [address] Ky Torres MD Urothelial cancer (H); 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) 10/20/2023 Orders Only [facility] - Cancer Care Service Line [address] [place] [address] Ky Torres MD Urothelial cancer (H) (Primary Dx); 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) from Last 3 Months Allergies Active Allergy [...] Description 03/04/2024 8:00 AM CDT Oncology Visit [facility] [address] [place] 200 [facility] [place] [address] Ky Torres MD 420 [facility] 480 [place] [address] Medical Devices Implanted Type Area Vascular Manager Device Identifier Shelf Expiration Date Model / Serial / Lot Port-08/28/2023 Implanted:Qty: 1 on 08/28/2023 by Pipe Hernandez MD Port Right: Chest Wall [id number] 07/29/2026 / / [id number] Stent Ureteral Cell Efficiency Supervisor Diversion 07fr [id number] - [id number] Implanted:Qty: 1 on 12/22/2023 by Alvaro Clark MD at [facility] Stent N/A: Abdomen [employer] [id number] 11/19/2026 [id number] / / [id number] Procedures Procedure Name Priority Date/Time Associated Diagnosis [...] CDT XR ABDOMEN PORT 1 VIEW Routine 4 3:16 PM CDT SURGICAL PATHOLOGY EXAM STAT 12/22/2023 8:54 AM CDT ANE AIRWAY ETT PERFORMABLE Routine 12/22/2023 8:02 AM CDT CYSTECTOMY,W/CONTINENT DIVERSION 12/22/2023 7:50 AM CDT 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 (H) GLUCOSE BY METER Routine 12/22/2023 6:55 AM CDT ABO/RH TYPE AND SCREEN STAT 6:47 AM CDT TYPE AND SCREEN, ADULT STAT 6:47 AM CDT ABO/RH TYPE AND SCREEN [...] neoplasm of trigone of urinary bladder (H) PA COLLECTION VENOUS BLOOD VENIPUNCTURE Routine 10/21/2023 8:38 [...] - MICRO GENERAL ORDERABLES [facility] IDD LABORATORY [facility] Inf. Diseases Diag. Lab 500 [facility], [address] [place] [address] * (ABNORMAL) CBC with platelets and differential [...] Clark MD LAB - BLOOD ORDERABL ES [facility] Acute Care Lab [address] [facility] Lab (1st floor, no room number) [place] [address] * CT Chest/Abdomen/Pelvis w Contrast (01/13/2024 1:26 [...] abdomen. DAWSON ZAVALETA MD Yessica Haynes PA-C IM CT ORDERABLES * (ABNORMAL) Comprehensive metabolic panel (BMP + Alb, Alk Phos, ALT, AST, Total. Bili, TP) (01/13/2024 12:59 PM CDT) Only the most recent of3 resultswithin the time period is included. Pathologist [facility] Sodium 137 135 - 145 mmol/L 01/13/2024 [...] MD LAB - BLOOD ORDERABL ES LABORATORY [facility] Acute Care Lab [address] [facility] Lab (1st floor, no room number) [place] [address], [facility] * (ABNORMAL) Basic metabolic panel (12/29/2023 7:28 [...] 8:33 AM CDT UR LABORATORY Comment:eGFR calculated us2020 CKD-EPI equation. Calcium 8.4(L) 8.8 - 10.4 [...] LAB - BLOOD ORDERABL ES UR LABORATORY [facility] Acute Care Lab [address] [facility], [address] [address] * (ABNORMAL) CBC with platelets (12/29/2023 7:28 AM CDT) Only the most recent of7 resultswithin the time period is included. [facility] WBC Count 8.9 4.0 - 11.0 10e3/uL [...] LAB - BLOOD ORDERABL ES UR LABORATORY [facility] Acute Care Lab [address] [facility], [address] [address] * Phosphorus (12/28/2023 11:53 AM CDT) Only the most recent of2 resultswithin the time period is included. Phosphorus 2.8 2.5 - 4.5 mg/dL 12/28/2023 1:37 PM CDT UR LABORATORY Blood STRUCTURE OF RIGHT UPPER LIMB / Unknown Venipuncture / Unknown 12/28/2023 11:53 AM CDT 12/28/2023 12:53 PM CDT Krystian Manriquez MD LAB - BLOOD ORDERABL ES UR LABORATORY [facility] Acute Care Lab [address] [facility], Room [place] [phone] * Magnesium (12/28/2023 11:53 AM CDT) Only the most recent of4 resultswithin the time period is included. Magnesium 2.0 1.7 - 2.3 mg/dL 12/28/2023 1:37 PM CDT UR LABORATORY Blood STRUCTURE OF RIGHT UPPER LIMB / Unknown Venipuncture / Unknown 12/28/2023 11:53 AM CDT 12/28/2023 12:53 PM CDT Krystian Manriquez MD LAB - BLOOD ORDERABL ES UR LABORATORY [facility] Acute Care Lab [address] [facility], [address] [address] * Electrolyte panel (12/27/2023 7:37 AM CDT) [...] LAB - BLOOD ORDERABL ES UR LABORATORY [facility] Acute Care Lab [address] [facility], [address] [place] [address] * Creatinine fluid (12/25/2023 10:28 AM CDT) [...] - BODY FLUIDS OR DERABLES UU LABORATORY [facility] Core Lab 500 [facility], Room [address] [place] [address] * (ABNORMAL) Glucose by meter (12/23/2023 6:42 AM CDT) Only the most recent of2 resultswithin the time period is included. GLUCOSE BY METER POCT 118(H) 70 - 99 mg/dL 12/23/2023 6:49 AM CDT UU LABORATORY POC Blood, Capillary BLOOD SPECIMEN / Unknown 12/23/2023 6:42 AM CDT 12/23/2023 6:49 AM CDT Alvaro Clark MD LAB - BEAKER POCT Performing Organization Address City/[facility]/ZIP Co de Phone Number UU LABORATORY POC [facility] Core Lab 500 [facility], Room [address] [place] [address] * Platelet count (12/22/2023 9:55 PM CDT) Platelet Count 179 150 - 450 10e3/uL 12/22/2023 10:12 PM CDT UU LABORATORY Blood STRUCTURE OF RIGHT HAND / Unknown IVAD (Port) / Unknown 12/22/2023 9:55 PM CDT 12/22/2023 10:04 PM CDT Alberto Tejeda MD LAB - BLOOD ORDERABL ES Performing Organization Address [facility] Co de Phone Number UU LABORATORY [facility] Core Lab 500 [facility], Room 3[address] [place] [address] * XR Abdomen Port 1 View (12/22/2023 [...] Case Report Surgical Pathology Report ? Case: [id number] ? Authorizing Provider: ??Alvaro Clark MD ?Collected: [...] proximal ureteral marigin ? 4 6:31 PM T [facility] Final Diagnosis A. Left distal urete r margin, excision: - Negative for malignancy B. Right distal ureter margin, excision: - Negative for malignancy C. Urethral margin, excision: - Negative for malignancy D. Bladder and prostate, radical cystoprostatectomy: - Invasive high grade urothelial carcinoma status post chemotherapy - Transmucosal prostatic stroma involvement by tumor. 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 These results have been appended to a previously preliminary verified report. Comment Immunohistochemistry analysis of CK5 and CHALRIE-3 was performed and supports the above diagnosis of invasion urothelial carcinoma. 4 6:31 PM [facility] Comment:This is an appended report. [...] Histologic Grade: ? Grade: ?Grade group 2 ([place] Score 3 + 4 = 7) ?? [...] 12/22/2023 at 9:15 AM Intra op performed at: LABORATORY, [facility] Core Lab, [address] [place] [address], Room [address] [address] Intra-op Dx verbally delivered to Dr. Amber Tanner(2). Ureter, Right, Right distal ureteral margin: BFS1: Negative for malignancy John Carey MD on 12/22/2023 at 9:27 AM Intra op performed at: LABORATORY, [facility] Core Lab, 500 [facility], Room [address] [address] Intra-op Dx verbally delivered to Dr. Amber Segura(3). Urethra, urethral margin: CFS1: - No evidence of malignancy Tracie Gonzalez MD on 12/22/2023 at 10:41 AM Intra op performed at: LABORATORY, [facility] Core Lab, 500 [facility], Room [address] [phone] Intra-op Dx verbally delivered to Dr. Clark [...] reveal no mass deposits or lymph nodes. Cpc sections are submitted. Gross photography is taken. D1-urethral margin, en face D2-right ureter margin, en face D3-left ureter margin, en face D4-lesion to right ureteral orifice D5-lesion to left ureteral orifice M5-W91-utplwi from dome to trigone M67-xgowks to seminal vesicles I35-lidje lateral wall V15-nwqcertu bladder wall R04-nnbp P08-P66-nltyt prostatic apex K65-I93-xlca prostatic apex D23-mid prostate, right anterior D24-mid prostate, left posterior D25-mid prostate, left anterior D26-mid prostate, left posterior G05-aear prostate, right anterior I35-vgne prostate, right posterior D18-licm prostate, mid L62-vhnv prostate, left anterior X82-hikc prostate, left posterior E(5). Lymph Node(s), Pelvis, [...] possible lymph nodes E2-intact possible lymph node H6-Q4-uxwuvlje possible lymph node I7-K5-mfsapjqd possible lymph node O4-M91-pmypwqop sectioned possible lymph node F(6). Lymph Node(s), [...] possible lymph nodes F2-bisected possible lymph node V7-T9-vhfcoaxb sectioned possible lymph node G(7). Ureter, Left, [...] component of this testing was completed at [facility]. Stain controls [...] PM CDT 12/22/2023 3:05 PM CDT Alvaro [facility] Specialty Lab 500 [facility] [address] Building, Room [address] [address], [facility] U LABORATORY [facility] Core Lab 500 [facility] [address] [facility], Room [address] [address], [facility] * ANE AIRWAY ETT PERFORMABLE (12/22/2023 8:02 AM CDT) Narrative Nessa Pereira APRN LONG TERM CARE ADMINISTRATOR - 12/22/2023 8:02 AM CDT Nessa Pereira APRN LONG TERM CARE ADMINISTRATOR ? 12/22/2023 ??8:22 AM Airway ? Patient location during procedure: OR ? Procedure Start/Stop Times: 12/22/2023 8:02 AM Staff - ? LONG TERM CARE ADMINISTRATOR: Nessa Pereira APRN LONG TERM CARE ADMINISTRATOR ? Performed By: CRNAIndications and Patient Condition [...] Time: 12/22/2023 8:02 AM Alf Olson MD PA ANESTHESIA * Adult Type and Screen (12/22/2023 6:47 AM CDT) Only the most recent of2 resultswithin the time period is included. ABO/RH(D) A NEG 12/22/2023 6:16 AM CDT U BLOOD BANK Antibody Screen Negative Negative 12/22/2023 6:16 AM CDT U BLOOD BANK SPECIMEN EXPIRATION DATE [id number] 12/22/2023 6:16 AM CDT BLOOD BANK Blood STRUCTURE OF RIGHT HAND / Unknown Venipuncture / Unknown 12/22/2023 6:47 AM CDT 12/22/2023 6:56 AM CDT Alvaro Clark MD LAB - BLOOD BANK LICHA T ORDER BLOOD BANK [address] [place] [address], [facility] * US Lower Extremity Venous Duplex Left [...] Haynes PA-C IMG US ORDERABLES * (ABNORMAL) Manual Differential (11/10/2023 [...] LAB - B LOOD ORDERABLES RH LABORATORY [facility] Acute Care Lab [address] Lab (1st floor, no room number) [place] [address], [facility] * PET Oncology (Eyes to Thighs) (10/21/2023 10:57 AM CDT) Anatomical Region Laterality Modality Whole Body, SUBRAD CT BODY, P NUC [facility] Positron Emission Tomography (PET) Impressions 10/22/2023 6:27 [...] Ky Torres MD LAB - ENTER/EDIT P OCT from Last 3 Months Advance Directives For more information, please contact: [phone] * Full Code (Latest Code Status on [...] Code status determined by: Discussion with saw temple/ legal decision maker Care Teams Ladies Attendant Relationship Specialty Start Date End Date Votel, Bhavin Ford [address] [place] [address] PCP - General Family Medicine 12/28/23 Alvaro Clark MD 420 [facility] 394 [place], [place] [address] Assigned Surgical Provider 07/24/23 Yessica Mcleod, PAJannetC [address] [place], [place] [phone] Assigned Cancer Care Provider 12/22/23
--- OUTSIDE RECORDS SUMMARY | 2024-01-18 03:59 | XMS_ITS | Encounter Summary ---
Author Organization [place] Address [address] [place] [address] Care Team Providers Care Twisting Operator Name Role Phone Alvaro Clark MD Unavailable Yessica Mcleod PA-C Unavailable VoteBhavin ferrara Primary Care Provider [phone] Encounter Details Date Type Department Care Team (Latest Contact Info) Description 01/01/2024 Travel Social History Tobacco Use Types Packs/Day [...] Description 03/04/2024 8:00 AM CDT [facility] [address] [place] [address] [address] [facility] [place] [address] Ky Torres MD 420 [facility] 480 [place], [place] [address] documented as of this encounter Visit Diagnoses Not on filedocumented in this encounter Care Teams Twisting Operator Relationship Specialty Start Date End Date DaoteBhavin ferrara [address] [place] [address] PCP - General Family Medicine 12/28/23 Alvaro Clark MD [address] [place] [phone] Assigned Surgical Provider 07/24/23 Yessica Mcleod PA-C [address] [place] [address] Assigned Cancer Care Provider 12/22/23 documented as of this encounter
--- OUTSIDE RECORDS SUMMARY | 2024-01-18 04:00 | XMS_ITS | Encounter Summary ---
Author Organization [place] Address [address] [place] [address] Care Team Providers Care Evaluation Advisor Name Role Phone Alvaro Clark MD Unavailable System, Provider Not In Primary Care Provider Un available Sixto Whalen APRN DIRECTOR PRINT Unavailable [phone] Encounter Details Date Type Department Care Team [...] Description 03/04/2024 8:00 AM CDT Oncology Visit [facility] [address] [facility] [place] [place] [address] Ky Torres MD [address] [phone] documented as of this encounter Visit Diagnoses Not on filedocumented in this encounter Care Teams Evaluation Advisor Relationship Specialty Start Date End Date System, Provider Not In PCP - General Clinic 08/13/23 12/21/23 Alvaro Clark MD 420 [facility] 394 [place] [address] Assigned Surgical Provider 07/24/23 Sixto Whalen APRN CNP [address] [place] [address] Assigned Cancer Care Provider 10/22/23 12/21/23 documented as of this encounter
--- OUTSIDE RECORDS SUMMARY | 2024-01-18 04:00 | XMS_ITS | Encounter Summary ---
Author Organization [facility] Address [address] [place] [id number] Care Team Providers Care Insurance Collector Name Role Phone Alvaro Clark MD Unavailable No Ref-Primary, Physician Primary Care Provider Yessica Mcleod PA-C Unavailable Reason for Visit * Auth/Cert Specialty Diagnoses / Procedures Referred By Virgil t Referred To Contact Surgery Diagnoses 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 (H) 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 (H) [C67.9] Procedures [place] REMV BLADDER,CONTINENT DIVERSN CYSTECTOMY, pelvic node dissection WITH ILEAL NEOBLADDER CREATION possible ileal conduit [facility] [address] [place] [address] Referral ID Status Reason Start Date Expiration Date Visits Re quested Visits Authorized [id number] 1 1 Encounter Details Date Type Department Care Team (Latest Contact Info) Description 12/22/2023 5:50 AM CDT - 12/25/2023 3:50 PM CDT Hospital Encounter [facility] [address] [place] [address] [place] [address] Alvaro Clark MD [address] [facility] [address] [place] [address] Postoperative state (Primary Dx); Bladder [...] 6:16 AM CDT documented in this encounter Discharge Summaries * Jeanette Dai NP - 12/25/2023 10:13 AM CDT [facility] UroDischarge Summary Patient: Oleg Richard : 1960 Date of Admission: 12/22/2023 Date of Discharge:: 12/25/2023 3:50 PM Admitting Physician: Alvaro Clark MD Discharge Physician: Homa Dai NP Admission Diagnoses: 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 (H) [C67.9] Past Medical History: Diagnosis Date Lesion of bladder Migraine 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 (H) Discharge Diagnosis: 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 (H) [C67.9] Past Medical History: Diagnosis Date Lesion of bladder Migraine 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 (H) Procedures: Procedure(s): 1. Radical cystoprostatectomy 2. Standard bilateral pelvic lymph node dissection. 3. Modified William Neobladder 4. Bilateral open ureteral stent placement. 5. Bilateral regional block using onQ catheters By Dr Clark Medications Prior to Admission: Medications Prior to Admission Medication Sig Dispense Refill Last Dose acetaminophen-caffeine (EXCEDRIN TENSION HEADACHE) 500-65 MG TABS Take 2 tablets by mouth every 6 hours as needed for mild pain (PRN HEADACHE) diphenhydrAMINE HCl (BENADRYL ALLERGY PO) Take 1 tablet by mouth as needed Discharge Medications: Current Discharge Medication List START taking these medications Details acetaminophen (TYLENOL) 325 MG tablet Take 2 tablets (650 mg) by mouth every 4 hours as needed for other (For optimal non-opioid multimodal pain management to improve pain control.) Qty: 50 tablet, Refills: 0 Associated Diagnoses: Postoperative state; Post-op pain apixaban ANTICOAGULANT (ELIQUIS) 2.5 MG tablet Take 1 tablet (2.5 mg) by mouth 2 times daily Qty: 58 tablet, Refills: 0 Associated Diagnoses: Postoperative state gabapentin (NEURONTIN) 100 MG capsule Take 1 capsule (100 mg) by mouth 3 times daily as needed for other (post op pain) Qty: 14 capsule, Refills: 0 Associated Diagnoses: Postoperative state; Post-op pain methocarbamol (ROBAXIN) 750 MG tablet Take 1 tablet (750 mg) by mouth every 6 hours as needed for muscle spasms Qty: 14 tablet, Refills: 0 Associated Diagnoses: Postoperative state; Post-op pain nitroFURantoin macrocrystal-monohydrate (MACROBID) 100 MG capsule Take 1 capsule (100 mg) by mouth daily Qty: 19 capsule, Refills: 0 Associated Diagnoses: Postoperative state polyethylene glycol (MIRALAX) 17 GM/Dose powder Take 17 g by mouth daily Qty: 510 g, Refills: 0 Associated Diagnoses: Postoperative state senna-docusate (SENOKOT-S/PERICOLACE) 8.6-50 MG tablet Take 1 tablet by mouth 2 times daily Qty: 40 tablet, Refills: 0 Associated Diagnoses: Postoperative state CONTINUE these medications which have NOT CHANGED Details acetaminophen-caffeine (EXCEDRIN TENSION HEADACHE) 500-65 MG TABS Take 2 tablets by mouth every 6 hours as needed for mild pain (PRN HEADACHE) diphenhydrAMINE HCl (BENADRYL ALLERGY PO) Take 1 tablet by mouth as needed Consultations: Consultation during this admission received: PHARMACY IP CONSULT PHYSICAL THERAPY ADULT IP CONSULT OCCUPATIONAL THERAPY ADULT IP CONSULT Brief History of Illness: Reason for admission requiring a surgical or invasive procedure: 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 (H) [C67.9] The patient underwent the following procedure(s): See above There were no immediate complications during this procedure. Please refer to the full operative summary for details. Hospital Course: The patient's hospital course was unremarkable. Oleg Richard recovered as anticipated and experienced no post-operative complications. On POD 3 he was ambulating without assitance, tolerating the discharge diet, had pain controlled with PO medications to go home with, and was requiring no IV medications or fluids. He was discharged to home with appropriate contact information, follow-up and instructions as seen below in the discharge paperwork. Discharge Labs: Lab Results Component Value Date PSA 3.47 08/04/2023 Recent Labs Lab 12/25/23 0650 12/24/23 0616 WBC 9.0 9.8 HGB 8.8* 9.0* PLT 172 177 Recent Labs Lab 12/25/23 0650 12/24/23 0616 NA 134* 137 POTASSIUM 4.5 4.6 CHLORIDE 100 103 CO2 28 28 BUN 20.9 22.1 CR 0.89 0.99 GLC 113* 103* JUANY 8.3* 8.3* MAG -- 1.8 PHOS -- 2.9 No lab results found in last 7 days. Invalid input(s): URINEBLOOD Results for orders placed or performed in visit on 06/18/23 Urine Culture Specimen: Urine, Midstream Result Value Ref Range Culture No Growth Surgical Pathology Report 12/22/23 A. Left distal ureter margin, excision: - Negative for malignancy B. Right distal ureter margin, excision: - Negative for malignancy C. Urethral margin, excision: - Negative for malignancy D. Bladder and prostate, radical cystoprostatectomy: - Invasive high grade urothelial carcinoma status post chemotherapy - Transmucosal prostatic stroma involvement by tumor. Please see comment - Incidental prostatic adenocarcinoma, Veteran score 7 (3+4) - Margins are negative for carcinoma - Please see synoptic reports for detail E. Left pelvic lymph nodes, excision: - 5 benign lymph nodes F. Right pelvic lymph nodes, excision: - 4 benign lymph nodes G. Left proximal ureter margin, excision: - Negative for malignancy H. Right proximal ureter margin, excision: - Negative for malignancy (no ureteric tissue identified) Discharge Instructions and Follow-Up: Diet: - Regular diet. Eat small frequent meals. Consider adding nutrition shakes several times day, such as Boost or Ensure. Add a multivitamin. - The most common reason for hospital readmission after bladder removal surgery is dehydration. Drink plenty of fluids - at least eight 8 ounce glasses of water per day - or aim to keep your urine color pale yellow. Activity: - No strenuous exercise for 6 weeks. - No lifting, pushing, pulling more than 10 pounds for 6 weeks. Take care when pushing with your arms to stand up. - Do not strain your belly area. When you bend, sit up or twice, you could strain the area around your incision. - Do not strain with bowel movements. - Do not drive until you can press the brake pedal quickly and fully without pain. - Do not operate a motor vehicle while taking narcotic pain medications. Medications: 1) PAIN: First take Tylenol (acetaminophen/APAP). Then add ibuprofen (motrin). Lastly, add muscle spasm medications, such as Robaxen (methocarbamol). In addition to these, medications such as Neurontin (gabapentin) and Lidocaine patches can also be added to help with pain. Some of these have been prescribed for you. Always follow prescribing guidelines. Do not take more than 3,200 - 4,000mg of Tylenol (acetaminophen/ APAP) from all sources in any 24 hour period since this can cause liver damage. Do not take more than 2000 - 2400mg of ibuprofen in any 24 hour period since this can cause kidneydamage. 2) CONSTIPATION: Surgery, pain medications and bladder spasm medications can all make you constipated. Pericolace (senna/docusate sodium) can be taken twice daily for prevention and treatment of constipation. Other over the counter solutions such as prune juice, miralax, fiber products, senna, and dulcolax can also be used if you prefer. Please reduce or stop these if you develop loose stools. Ifyou are taking these but still have not had a bowel movement in 3 days, start [id number] Milkof Magnesia taken twice daily until you have a good result. Call the office with any concerns. 3) ANTIBIOTICS: - Ciprofloxacin 500mg - take one tablet prior to your followup appointment with Dr. Clark in one month 4) ANTICOAGULATION: - eliquis 2.5mg twice daily for 29 days. Incisions: - Daily showering is important, and you may get incisions wet starting 48 hours after surgery. - Do not scrub incisions or soak in a bath, pool, hot tub, etc. until incisions have fully healed and all tubes have been removed, typically 4 weeks - The wound dressing should be removed 48 hours after surgery. - The purple skin glue on your incisions will flake off with time and should not be scrubbed. Also avoid applying lotions or ointments to these areas. - If steri-strips were used you may wash over them normally, as you would wash your remaining skin.Steri-strips should fall off on their own within 5-10 days. - Model will be removed at your follow up appointment - It is preferable for the incision to be left uncovered, but you may cover with gauze if needed for comfort or to protect clothing from drainage. Tubes / drains: 1) Indwelling parry catheter - You are going home with a Parry catheter which will remain in place until your follow-up appointment. - Your nurse or nurse outreach case manager will provide written catheter care instructions for you to take home. - Protect the catheter and treat it like an extension of your body - keep it secured to your leg and do not let it get caught, snagged, or tugged. - Take care to assure that the catheter remains tension-free, without kinks and draining freely to gravity drainage bag IRRIGATIONS: - Flush bladder twice daily through catheter. Disconnect the Parry catheter from its drainage tubing. Wipe the connections with alcohol. Use a 60 mL syringe to instill 1 syringe (60 mL) of sterile normal saline, then withdraw one (60 mL), then instill one (60 mL), and withdraw one (60 mL). Continuethis process until there is no longer mucus being irrigated out of the neobladder. Usually this will require between 120 and 240 mL of total irrigation to clear the mucous. - Irrigations can also be performed more often NEEDED if you become suspicious that the Parry catheter might be clogged (ie. Low abdominal pain, low urine output, urine leaking around the catheter) - Catheter irrigation syringes and trays may be reused. They should be washed in warm soapy water and thoroughly rinsed after each use. They can be air-dried on a clean towel or dried with a hair-drier take off tender. - You may shower with your catheter in place. You are encouraged to wash the catheter tubing to keep it clean, and the urine drainage bag also can be gotten wet. 2) STENTS: - Dr. Clark would like to keep your ureteral stents until 01/01/24 when you follow up in clinic for removal. 3) ABDOMINAL DRAIN TO BULB SUCTION: - Your abdominal drain has been removed . While the site is healing, change dressings once per day or more frequently if soiled or wet, to keep the site clean. Once the site has healed, remove dressings completely to leave the site uncovered. PAIN MGMT (On-Q Pump): - You may keep your On-Q tubes until 1) the medication ball runs dry or 2) you no longer feel the On-Q tubes are helping pain mgmt. You should also remove the On-Q tubes if the overlying dressing becomes wet or soiled. - When you are ready to removed the tubes, simply peel-off the dressing overlying the tubes and gently pull out the tubes. A bandaid can be applied over the tiny skin incisions. The tubes and the medication ball can be discarded in the regular trash stream. Follow-Up: - Call your primary care provider to touch base regarding your recent admission. - Follow up with Dr. Clark as scheduled on 01/01/24. On that date, just prior to your clinic appointment you will have a xray cystogram in Radiology to assure that your neobladder has completely healed. Take your antibiotic (Ciprofloxacin) tablet just prior to these appointments. - Call or return sooner than your regularly scheduled visit if you develop any of the following: Fever (greater than 101.3F), uncontrolled pain, uncontrolled nausea or vomiting, concerns about bowel function, as well as increased redness, swelling, drainage from your wound or any concerns about urinating or urinary catheter drainage. Phone numbers: - Thursday through Thursday 8am to 4:30pm: Call [phone] with questions, requests for medication refills, or to schedule or confirm an appointment. - Nights, weekends, or holidays: call the after hours emergency pager - [phone] and tell the elevating grader operator I would like to page the Urology Resident environmental engineering manager. Typically, the on-call provider should return your call within 30 minutes. Please page the on-call provider again if you haven't been contacted as expected. Rarely, the on-call provider will be unable to promptly return a call due to a hospital emergency. If you have paged twice and are still not contacted, ask the hospital elevating grader operator to page the urology CHIEF-RESIDENT environmental engineering manager. - Please note that due to prescribing laws, resident physicians are unable to prescribe narcotics after-hours. If you feel as though you will need a refill of a narcotic pain medication, you will need to call the clinic during business hours OR seek emergency care. - For emergencies, call 911 Discharge Disposition: Discharged to home Attestation: I have reviewed today's vital signs, notes, medications, labs and imaging. Homa Dai Department of Urology Please call Job Code: [phone] to reach the Urology resident or PA environmental engineering manager - Week [phone] to reach the Urology resident or PA environmental engineering manager - Weeknights and weekends December 25, 2023 documented in this encounter Medications at Time [...] Noe Erickson MD, MPH Urology Resident, PGY-2 COVERSTITCH ELASTIC ATTACHER medications: Prior to Admission medications Medication Sig [...] questions or concerns regarding this patient. Note sheet writer may be unavailable. To access [employer] from intranet: under Applications --> Business Applications select [employer] and search Urology Adult & Pediatric/[facility]. Please note that any question about a urology inpatient, [place] or [place], should go to job code [id number]. * [...] Noe Erickson MD, MPH Urology Resident, PGY-2 COVERSTITCH ELASTIC ATTACHER medications: Prior to Admission medications Medication Sig [...] questions or concerns regarding this patient. Note sheet writer may be unavailable. To access [employer] from intranet: under Applications --> Business Applications select [employer] and search Urology Adult & Pediatric/[facility]. Please note that any question about a urology inpatient, [place] or [place], should go to job code [id number]. * [...] Onset of Illness/Injury or Date of Surgery 07/23/24 Referring Physician Alvaro Clark MD Patient/Family Therapy [...] identified Bed Mobility Bed Mobility supine-sit;sit-supine Supine-Sit [place] (Bed Mobility) verbal cues Sit-Supine [place] (Bed Mobility) verbal cues Transfers Transfers sit-stand transfer Sit-Stand Transfer Sit-Stand [place] (Transfers) supervision Balance Balance Assessment no deficits identified Activities of Daily Living BADL Assessment/Intervention bathing;upper body dressing;lower body dressing;clothing fastener management;grooming;toileting Bathing Assessment/Intervention [place] Level (Bathing) set up Comment, (Bathing) Per clinical judgement Upper Body Dressing Assessment/Training Comment, (Upper Body Dressing) Per clinical judgement [place] Level (Upper Body Dressing) independent Lower Body Dressing Assessment/Training [place] Level (Lower Body Dressing) modified independence Clothes Fastener Management [place] Level (Clothes Fastener Management) independent Grooming Assessment/Training [place] Level (Grooming) supervision Toileting [place] Level (Toileting) supervision Clinical Impression Criteria for [...] Evaluation Time OT Eval, Low Complexity Minutes (38003) 10 OT Goals Therapy Frequency (OT) One [...] Management Self-Care/Home Mgmt/ADL, Compensatory, Meal Prep Minutes (36952) 12 Symptoms Noted During/After Treatment (Meal Preparation/Planning Training) increased pain Treatment Detail/Skilled Intervention OT: Facilitated ADL for increased IND within precautions. Pt educated on abdominal precautions, handout provided. Pt completed log roll technique for bed mobility with verbal cues, progressed to mod IND. Reviewed with pt LB dressing within precautions, pt unable to demo figure four, reported he is familiar with using emergency room physician tool for LB dressing and has slip on shoes he wears. Educated pt on IADLs with 10 # weight restriction. Pt demo'd mod IND mobility in room once set up with IV pole due to multiple lines, completed ADLS SBA and progressed to mod IND-IND. Therapeutic Activities Therapeutic Activity Minutes (57761) 10 Symptoms noted during/after treatment fatigue Treatment [...] MD. Camilla Larkin MD, PGY-2 Urology Resident COVERSTITCH ELASTIC ATTACHER medications: Prior to Admission medications Medication Sig [...] questions or concerns regarding this patient. Note sheet writer may be unavailable. To access [employer]! from intranet: under Applications --> Business Applications select [employer] and search Urology Adult & Pediatric/[facility]. Please note that any question about a urology inpatient, [place] or [place], should go to job code [id number]. * [...] cath with red output. BS+, passing flatus. [place] urge sat Diet: Clears. Skin/Incisions/Drains: Midline abd incision, ETHAN in RLQ to bulb, R/L PIV Lines: R/L PIV. L PIV infusing LR 100 ml/hr Pain: Reporting 4/10 pain, managed with oxycodone. documented in this encounter Nursing Notes * Amalia Gonzalez RN - 12/22/2023 4:29 PM CDT Urology contacted to notify xray is complete. MD says xray looks good. documented in this encounter Miscellaneous Notes * Result Encounter Note - Alvaro Clark MD - 12/25/2023 3:50 PM CDT I have personally reviewed the pathology results which support a diagnosis of urothelial carcinoma and prostatic adenocarcinoma. Sites involved in this diagnosis include: Bladder and prostate Alvaro Clark MD * Plan of Care - Isaac Hutchins RN - 12/25/2023 5:41 AM CDT Goal Outcome Evaluation: Shift [id number] A&Ox4, cooperative, makes needs known. Abdominal pain [...] Nicholas RN - 12/24/2023 3:41 AM CDT [id number] Status: OD#1 s/p cystectomy with ileal neobladder [...] 4:27 PM CDT RN paged MD Richard, S [phone] FYI pt abd distended, very painful, and pt belching. thanks. shobha ho rn [phone] * Plan of Care - Ana Thomason OTR - 12/23/2023 11:53 AM CDT Occupational Therapy Discharge Summary Reason for therapy discharge: All goals and outcomes met, no further needs identified. Progress towards therapy goal(s). See goals on Care Plan in [facility] electronic health record for goal details. [...] Date: 12/22/2023 Attending Surgeon: Alvaro Clark MD Aggregate Conveyor Operator(s): Alberto Tejeda M.D.-PGY-5 Preoperative Diagnosis(es): High grade [...] pelvic lymph nodes. Complications: None Indications: Oleg Richadr is a 63 year old male with [...] in the usual sterile fashion. A #16 Libyan Parry catheter was placed in the bladder. [...] sutures. We then performed a standard stapled [id number] functional end-to-end small bowel anastomosis by firing a JORGE 60 stapler along the antimesenteric border and closed the enterotomies for the anastomosis using a TA 60 stapler. The crossing staple lines were reinforced using 3-0 silk suture in a [id number] fashion. A similar suture was done at [...] away from thepouch. We placed a #19 Libyan Brandon drain into the plane between the [...] recovery room extubated in excellent condition. Alberto Teejda MD Urology PGY-5 Associated attestation - Alvaro Clark MD - 12/22/2023 9:52 PM CDT Physician Attestation I was present for the entire procedure between opening and closing. Alvaro Clark MD Date of Service (when I saw the patient): 12/22/23 * Brief Op Note - Alberto Tejeda MD - 12/22/2023 2:24 PM CDT [facility] Brief Operative Note Pre-operative diagnosis: [...] Implant Name Type Inv. Item Serial No. Floor Grinder Lot No. LRB No. Used Action STENT URETERAL CLERK [employer] [id number] - [id number] Stent STENT URETERAL CLERK T[employer]IST DIV[employer]ION [id number] [facility] [id number] N/A 1 Implanted Fluids: 3200 crystalloid 250 albumin Admit Urology Urology to irrigate AM and PM Neobladder pathway Alberto Tejeda MD Urology PGY-5 * Pharmacy-Admission Medication History - Uriel Kaba - 12/15/2023 12:03 PM CDT Information Systems Professor Pre-operative Admission Medication History Admission medication history [...] 09/14/23 per dispense history. Changes made to COVERSTITCH ELASTIC ATTACHER medication list: Added: None Deleted: None Changed: None Allergies reviewed with patient and updates made in EHR: yes Medication History Completed By: Uriel Kaba 12/15/2023 12:03 PM COVERSTITCH ELASTIC ATTACHER Med List Medication Sig Last Dose acetaminophen-caffeine (EXCEDRIN TENSION HEADACHE) 500-65 MG TABS Take 2 tablets by mouth every 6 hours as needed for mild pain (PRN HEADACHE) diphenhydrAMINE HCl (BENADRYL ALLERGY PO) Take 1 tablet by mouth as needed Associated attestation - Nabeel Mcghee RPH - 12/15/2023 12:17 PM CDT I was not present during the human resource intern's interview, but I agree with the documentation. Nabeel Mcghee, Pharm.D, [facility] December 15, 2023 documented in this encounter Plan of Treatment Upcoming Encounters Date Type Department Care Team (Late st Contact Info) Description 03/04/2024 8:00 AM CDT Oncology Visit [facility] [id number] [place] [address] [address] [facility] [place] [id number] Ky Torres MD [address] [address] documented as of this encounter Procedures Procedure [...] - BODY FLUIDS OR DERABLES [facility] Core Lab [address] [facility], [address] [place] [id number] * (ABNORMAL) CBC with platelets (12/25/2023 6:50 [...] LAB - BLOOD ORDERABL ES [facility] [place] Core Lab [address] [facility], [address] [place] [address] * (ABNORMAL) Basic metabolic panel (12/25/2023 6:50 [...] - BLOOD ORDERABL ES Performing Organization Address City/[facility]/ZIP Co de Phone Number [facility] [place] Core Lab [address] [facility], [address] * Phosphorus (12/24/2023 6:16 AM CDT) Phosphorus 2.9 2.5 - 4.5 mg/dL 12/24/2023 7:26 AM CDT [facility] Blood (Portacath) IVAD (Port) / Unknown 12/24/2023 6:16 AM CDT 12/24/2023 6:41 AM CDT Alberto Tejeda MD LAB - BLOOD ORDERABL ES [facility] [place] Core Lab [address] [facility], [address] * Magnesium (12/24/2023 6:16 AM CDT) Magnesium 1.8 1.7 - 2.3 mg/dL 12/24/2023 10:59 AM CDT [facility] Blood (Portacath) IVAD (Port) / Unknown 12/24/2023 6:16 AM CDT 12/24/2023 6:41 AM CDT Alberto Tejeda MD LAB - BLOOD ORDERABL ES [facility] [place] Core Lab [address] [facility], [address] [place] [address] * (ABNORMAL) CBC with platelets (12/24/2023 6:16 AM CDT) Pathologist [facility] WBC Count 9.8 4.0 - 11.0 10e3/uL [...] LAB - BLOOD ORDERABL ES [facility] [facility] [address] [facility], [address] [place] [address], [facility] * (ABNORMAL) Basic metabolic panel (12/24/2023 6:16 [...] 7:12 AM CDT [facility] Comment:eGFR calculated us2020 [...] LAB - BLOOD ORDERABL ES [facility] [address] [facility], [address] [place] [address], [facility] * (ABNORMAL) CBC with platelets (12/23/2023 7:04 [...] LAB - BLOOD ORDERABL ES [facility] [address] [facility], [address] [place] [address], [facility] * (ABNORMAL) Basic metabolic panel (12/23/2023 7:04 AM CDT) Pathologist [facility] Sodium 136 135 - 145 mmol/L 12/23/2023 [...] 7:43 AM CDT [facility] Comment:eGFR calculated usin [...] LAB - BLOOD ORDERABL ES [facility] [address] [facility], [address] [place] [address], [facility] * (ABNORMAL) Glucose by meter (12/23/2023 6:42 AM CDT) GLUCOSE BY METER POCT 118(H) 70 - 99 mg/dL 12/23/2023 6:49 AM CDT [facility] POC Blood, Capillary BLOOD SPECIMEN / Unknown 12/23/2023 6:42 AM CDT 12/23/2023 6:49 AM CDT Alvaro Clark MD LAB - BEAKER POCT U LABORATORY POC [facility] Core Lab [address] [facility], [address] [place] [address] * Platelet count (12/22/2023 9:55 PM CDT) Platelet Count 179 150 - 450 10e3/uL 12/22/2023 10:12 PM CDT [facility] Blood STRUCTURE OF RIGHT HAND / Unknown IVAD (Port) / Unknown 12/22/2023 9:55 PM CDT 12/22/2023 10:04 PM CDT Alberto Tejeda MD LAB - BLOOD ORDERABL ES Performing Organization Address [facility] Co de Phone Number LABORATORY [facility] Lab [address] [facility], [address] [place] [phone] * XR Abdomen Port 1 View (12/22/2023 [...] Case Report Surgical Pathology Report ? Case: [id number] ? Authorizing Provider: ??Alvaro Clark MD ?Collected: [...] Histologic Grade: ? Grade: ?Grade group 2 (Veteran Score 3 + 4 = 7) ?? [...] 9:15 AM Intra op performed at: LABORATORY, [facility] Core Lab, [address] [place] [address], Room [address] [phone] Intra-op Dx verbally delivered to Dr. Amber Tanner(2). Ureter, Right, Right distal ureteral margin: BFS1: Negative for malignancy John Carey MD on 12/22/2023 at 9:27 AM Intra op performed at: LABORATORY, [facility] Core Lab, [address] [facility], [address] [address] Intra-op Dx verbally delivered to Dr. Amber Segura(3). Urethra, urethral margin: CFS1: - No evidence of malignancy Tracie Gonzalez MD on 12/22/2023 at 10:41 AM Intra op performed at: LABORATORY, [facility] Core Lab, [address] [facility], Room [address] [id number] Intra-op Dx verbally delivered to Dr. Clark [...] reveal no mass deposits or lymph nodes. Property Claim Rep sections are submitted. Gross photography is taken. D1-urethral margin, en face D2-right ureter margin, en face D3-left ureter margin, en face D4-lesion to right ureteral orifice D5-lesion to left ureteral orifice Y6-L03-livmtz from dome to trigone Z76-egbcbk to seminal vesicles Y13-wvaqy lateral wall S76-lzjekxme bladder wall N15-iyih Q26-Q13-acele prostatic apex Z91-Z24-erin prostatic apex D23-mid prostate, right anterior D24-mid prostate, left posterior D25-mid prostate, left anterior D26-mid prostate, left posterior S77-tlis prostate, right anterior I95-btdl prostate, right posterior A31-rjun prostate, mid R16-ankl prostate, left anterior Z97-oyis prostate, left posterior E(5). Lymph Node(s), Pelvis, [...] possible lymph nodes E2-intact possible lymph node G2-F0-mdctvnxj possible lymph node O2-E2-misqaays possible lymph node Y6-X67-hvhazqlr sectioned possible lymph node F(6). Lymph Node(s), [...] possible lymph nodes F2-bisected possible lymph node N2-S1-gbzavhtw sectioned possible lymph node G(7). Ureter, Left, [...] component of this testing was completed at [facility]. Stain controls for all stains [...] PM CDT 12/22/2023 3:05 PM CDT Alvaro CONRO[facility] Specialty Lab [address] [facility], [address] [address], [facility] [place] [facility] [address] [facility], [address] [phone] * (ABNORMAL) Glucose by meter (12/22/2023 6:55 AM CDT) GLUCOSE BY METER POCT 101(H) 70 - 99 mg/dL 12/22/2023 7:01 AM CDT [facility] POC Blood, Capillary BLOOD SPECIMEN / Unknown 12/22/2023 6:55 AM CDT 12/22/2023 7:01 AM CDT Alvaro CONROY POCT Performing Organization Address City/[facility]/ZIP Co de Phone Number [facility] LABORATORY POC [facility] [place] [facility] [address] [facility], [address] [place] [address] * Adult Type and Screen (12/22/2023 6:47 AM CDT) ABO/RH(D) A NEG 12/22/2023 6:16 AM CDT [facility] Antibody Screen Negative Negative 12/22/2023 6:16 AM CDT [facility] SPECIMEN EXPIRATION DATE [id number] 12/22/2023 6:16 AM CDT [facility] Blood STRUCTURE OF RIGHT HAND / Unknown Venipuncture / Unknown 12/22/2023 6:47 AM CDT 12/22/2023 6:56 AM CDT Alvaro Clark MD LAB - BLOOD BANK LICHA T ORDER [facility] BANK [address] [place] [address], [facility] documented in this encounter Visit Diagnoses Diagnosis [...] analgesic side effects. Hold while on IV AVID EDITOR or with regular IV opioid dosing. $Given [...] analgesic side effects. Hold while on IV AVID EDITOR or with regular IV opioid dosing. $Given [...] PRN, nausea, vomiting, Starting on Thu12/22/23 at 0, This is Step 2 of nausea and vomiting management. If nausea not resolved in 15-30 minutes, Notify provider. ROPivacaine 0.2% (NAROPIN) 750 mL in ON-Q C-Bloc select flow ([id number] holds 600-750 mL) dual cath disposable pump [...] Sneed RN) 0014 ($Given - Provider: Patsy Bryant RN)0819 (Not Given - Provider: Shobha Sneed RN - Reason: Patient/family refused)1606 ($Given - Provider: Shobha Sneed RN)2248 ($Given - Provider: Isaac Hutchins RN) 0700 [...] by the FDA (see reference link): Yes 0756 ($Given - Provider: Radha Merida RN) alvimopan [...] by the FDA (see reference link): Yes 213 ($Given - Provider: Kelly Nicholas RN) 0832 [...] Shobha Sneed RN)2132 ($Given - Provider: Kelly Nicholas RN) 0832 ($Given - Provider: Shobha Sneed RN)1430 ($Given - Provider: Shobha Sneed RN)203 ($Given - Provider: Isaac Hutchins RN) 0702 ($Given - Provider: Isaac Hutchins RN)1335 ($Given - Provider: Aaron Noonan RN) bisacodyl (DULCOLAX) suppository 10 mg 10 [...] Merida RN)1324 ($Given - Provider: Shobha Sneed, RN)2121 ($Given - Provider: Kelly Nicholas RN) 0832 ($Given - Provider: Shobha Sneed, CARLOS)1429 ($Given - Provider: Shobha Sneed, CARLOS)2038 ($Given - Provider: Isaac Hutchins, CARLOS) 0825 ($Given - Provider: Aaron Noonan, RN)1334 ($Given - Provider: Aaron Noonan, CARLOS) [...] Merida RN)1602 ($Given - Provider: Shobha Sneed, CARLOS) 0029 ($Given - Provider: Patsy Bryant, CARLOS)0832 (Not Given - Provider: Shobha Sneed RN - Reason: Patient/family refused)1607 ($Given - Provider: Shobha Sneed RN)2341 ($Given - Provider: Isaac Hucthins, CARLOS) heparin lock flush 100 unit/mL injection [...] port lumen 1458 ($Given - Provider: Aaron Noonan RN) magnesium hydroxide (MILK OF MAGNESIA) suspension 30 mL 30 mL, Oral, AT BEDTIME, First dose (after last modification) on Thu12/24/23 at 2200, Shake well. Hold for loose stools. 2137 ($Given - Provider: Isaac Hutchins RN) nitroFURantoin macrocrystal-monohydrate (MACROBID) capsule 100 mg Routine, 100 mg, Oral, DAILY, First dose (after last modification) on Thu12/23/23 at 0800, For 21 days, Indications: Perioperative Pharmacoprophylaxis 0919 ($Given - Provider: Radha Merida RN) 0832 ($Given - Provider: Shobha Sneed, RN) 0825 ($Given - Provider: Aaron Noonan, RN) pantoprazole (PROTONIX) EC tablet 40 mg 40 mg, Oral, EVERY MORNING BEFORE BREAKFAST, First dose on Thu12/23/23 at 0800, DO NOT CRUSH. 0757 ($Given - Provider: Radha Merida RN) 0832 ($Given - Provider: Shobha Sneed RN) 0700 ($Given - Provider: Isaac Hutchins [...] loose stools. 0757 ($Given - Provider: Radha Merida, RN)2121 ($Given - Provider: Kelly Nicholas, RN) 0832 ($Given - Provider: Shobha Sneed, CARLOS)203 ($Given - Provider: Isaac Hutchins, CARLOS) 0825 [...] 0707 0933 (Rate/Dose Verify - Provider: Radha Merida, RN)0936 ($New Bag - Provider: Radha Merida RN)1602 (Rate/Dose Change - Provider: Shobha Sneed RN)212 (Rate/Dose Verify - Provider: Kelly Nicholas RN)2217 ($New Bag - Provider: Zofia Prasad RN) 1432 ($New Bag - Provider: Shobha Sneed RN)203 (Rate/Dose Verify - Provider: Isaac Hutchins RN) 0635 (Rate/Dose Change - Provider: Isaac Hutchins RN)0728 (Stopped - Provider: Isaac Hutchins RN) ROPivacaine 0.2% (NAROPIN) 750 mL in ON-Q C-Bloc select flow ([id number] holds 600-750 mL) dual cath disposable pump [...] HOURS PRN, itching, Starting on Thu12/22/23 at 0, Caution to be used when administering multiple Central Nervous System (DIRECTOR OF RESTAURANT) depressing meds within a short time frame. [...] reversal, Starting on Thu12/22/23 at 181, Administer intravenous route when available and notify [...] analgesic side effects. Hold while on IV AVID EDITOR or with regular IV opioid dosing. 0435 ($Given - Provider: Oksana Flor RN)1601 (See Alternative - Provider: Shobha Sneed RN) 0015 (See Alternative - Provider: Patsy Bryant RN)0428 (See Alternative - Provider: Patsy Bryant RN)0830 (See Alternative - Provider: Shobha Sneed, CARLOS)1254 (See Alternative - Provider: Shobha Sneed, CARLOS)1713 (See Alternative - Provider: Shobha Sneed, CARLOS)2138 (See Alternative - Provider: Isaac Hutchins RN) oxyCODONE IR (ROXICODONE) tablet 10 mg(Linked Group 4) 10 mg, Oral, EVERY 4 HOURS PRN, severe pain, Starting on Thu12/22/23 at 1627, Hold oral PRN dose for analgesic side effects. Notify provider to assess for uncontrolled pain or analgesic side effects. Hold while on IV AVID EDITOR or with regular IV opioid dosing. 0435 (See Alternative - Provider: Oksana Flor RN)1601 ($Given - Provider: Shobha Sneed RN) 0015 ($Given - Provider: Patsy Bryant RN)0428 ($Given - Provider: Patsy Bryant RN)0830 ($Given - Provider: Shobha Sneed, RN)1254 ($Given - Provider: Shobha Sneed, RN)1713 ($Given - Provider: Shobha Sneed, RN)2138 ($Given - Provider: Isaac Hutchins RN) prochlorperazine [...] reversal, Starting on Thu12/22/23 at 181, Administer intravenous route when available and notify [...] analgesic side effects. Hold while on IV AVID EDITOR or with regular IV opioid dosing. Or oxyCODONE IR (ROXICODONE) tablet 10 mgJump to med 10 mg, Oral, EVERY 4 HOURS PRN, severe pain, Starting on Thu12/22/23 at 1627, Hold oral PRN dose for analgesic side effects. Notify provider to assess for uncontrolled pain or analgesic side effects. Hold while on IV AVID EDITOR or with regular IV opioid dosing. Group [...] provider. documented in this encounter Care Teams Insurance Collector Relationship Specialty Start Date End Date No Ref-Primary, Physician PCP - General 12/22/23 12/27/23 Alvaro Clark MD [address] [place] [address] [id number] Assigned Surgical Provider 07/24/23 Yessica Mcleod PA-C [address] [place] [address] [id number] Assigned Cancer Care Provider 12/22/23 documented as of this encounter
--- OUTSIDE RECORDS SUMMARY | 2024-01-18 04:00 | XMS_ITS | Encounter Summary ---
Author Organization [place] Address [address] [place] [address] Care Team Providers Care Merchandising Professor Name Role Phone Alvaro Clark MD Unavailable System, Provider Not In Primary Care Provider Un available Sixto Whalen APRN GAME DESIGN INSTRUCTOR Unavailable [phone] No Ref-Primary, Physician Primary Care Provider Yessica Mcleod PA-C Unavailable Bhavin Gardner Primary Care Provider [phone] Encounter Details Date Type Department Care Team (Late st Contact Info) Description 12/01/2023 MyC Medical Advice [place] [address] [place] [address] [place] [address] [facility] [place] [phone] Sabra Wilcox Social History Tobacco Use Types [...] Description 03/04/2024 8:00 AM CDT Oncology Visit [place] [id number] [place] [address] [place] [address] [facility] [place] [phone] Ky Torres MD 420 [facility] 480 [place] [address] documented as of this encounter Visit Diagnoses Not on filedocumented in this encounter Care Teams Merchandising Professor Relationship Specialty Start Date End Date System, Provider Not In PCP - General Clinic 08/13/23 12/21/23 No Ref-Primary, Physician PCP - General 12/22/23 12/27/23 Bhavin Gardner [address] [place] [address] PCP - General Family Medicine 12/28/23 Alvaro Clark MD 420 [facility] 394 [place], [place] 86[address] Assigned Surgical Provider 07/24/23 Sixto Whalen APRN CNP [address] [place] [address] [phone] Assigned Cancer Care Provider 10/22/23 12/21/23 Yessica Mcleod PA-C [address] [place] [address] [phone] Assigned Cancer Care Provider 12/22/23 documented as of this encounter
--- OUTSIDE RECORDS SUMMARY | 2024-01-18 04:00 | XMS_ITS | Encounter Summary ---
Author Organization [place] Address [address] [place] [address] Care Team Providers Care Shelving Supervisor Name Role Phone Alvaro Clark MD Unavailable System, Provider Not In Primary Care Provider Un available Sixto Whalen APRN AGENCY SALES DIRECTOR Unavailable [phone] Encounter Details Date Type Department Care Team [...] AM CDT Oncology Visit [facility] [address] [place] [address] [facility] [place] [place] [phone] Ky Torres MD [address] [address] documented as of this encounter Visit Diagnoses Not on filedocumented in this encounter Care Teams Shelving Supervisor Relationship Specialty Start Date End Date System, Provider Not In PCP - General Clinic 08/13/23 12/21/23 Alvaro Clark MD 420 [facility] 394 [place] [address] Assigned Surgical Provider 07/24/23 Sixto Whalen APRN CNP [address] [place] [address] Assigned Cancer Care Provider 10/22/23 12/21/23 documented as of this encounter
--- OUTSIDE RECORDS SUMMARY | 2024-01-18 04:00 | XMS_ITS | Encounter Summary ---
Author Organization [place] Address [address] [place] [address]. [place] [address] Care Team Providers Care Compliance Engineer Name Role Phone Alvaro Clark MD Unavailable System, Provider Not In Primary Care Provider Un available Sixto Whalen APRN CRIME SCENE PHOTOGRAPHER Unavailable [phone] Encounter Details Date Type Department Care Team (Late st Contact Info) Description 12/01/2023 Orders Only [address] [place] 200 [facility] [place] [address] Dylan Guerin PA 9 [place] [address] Urothelial cancer (H) (Primary Dx) [...] Description 03/04/2024 8:00 AM CDT Oncology Visit [address] [place] 200 [facility] [place] [address] Ky Torres MD 420 [facility] 480 [place], [place] [address] Scheduled Orders Name Type Priority Associated Diagnoses [...] organs documented in this encounter Care Teams Compliance Engineer Relationship Specialty Start Date End Date System, Provider Not In PCP - General Clinic 08/13/23 12/21/23 Alvaro Clark MD 420 [facility] 394 [place] [address] Assigned Surgical Provider 07/24/23 Sixto Whalen APRN CRIME SCENE PHOTOGRAPHER [address] [place] [address] Assigned Cancer Care Provider 10/22/23 12/21/23 documented as of this encounter
--- OUTSIDE RECORDS SUMMARY | 2024-01-18 04:00 | XMS_ITS | Encounter Summary ---
Author Organization [place] Address [address] [place] [address] Care Team Providers Care Property And Casualty Insurance Agent Name Role Phone Alvaro Clark MD Unavailable System, Provider Not In Primary Care Provider Un available Sixto Whalen APRN LD TEACHER Unavailable [phone] Encounter Details Date Type Department Care Team (Late st Contact Info) Description 12/11/2023 PRE VISIT [facility] Pre[facility] [address] 5th [place] [phone] Rizwana Tejeda APRN LD TEACHER [address] [place] [address] Social History Tobacco Use Types Packs/Day Years [...] Upcoming Encounters Date Type Department Care Team ([facility] st Contact Info) Description 03/04/2024 8:00 AM CDT Oncology Visit [address] [place] 200 [facility] [place] [address] Ky Torres MD 420 [facility] 480 [place], [place] [phone] documented as of this encounter Visit Diagnoses Not on filedocumented in this encounter Care Teams Property And Casualty Insurance Agent Relationship Specialty Start Date End Date System, Provider Not In PCP - General Clinic 08/13/23 12/21/23 Alvaro Clark MD 420 [facility] 394 [place] [address] Assigned Surgical Provider 07/24/23 Sixto Whalen APRN CNP [address] [place] [address] Assigned Cancer Care Provider 10/22/23 12/21/23 documented as of this encounter
--- OUTSIDE RECORDS SUMMARY | 2024-01-18 04:00 | XMS_ITS | Encounter Summary ---
Author Organization [place] Address [address] [place] [address] Care Team Providers Care Union Laborer Name Role Phone Alvaro Clark MD Unavailable System, Provider Not In Primary Care Provider Un available Sixto Whalen APRN, CNP Unavailable [phone] Encounter Details Date Type Department Care Team (Late st Contact Info) Description 12/11/2023 9:00 AM CDT Lab [address] 1[address] [place] [address] Preop examination; Urothelial carcinoma of [...] Description 03/04/2024 8:00 AM CDT Oncology Visit [facility] [address] [place] [address] 200 [facility] [place] [phone] Ky Torres MD 420 [facility] 480 [place], [place] [address] documented as of this encounter Procedures Procedure [...] Type and Screen (12/11/2023 8:32 AM CDT) ABO/RH(D) A NEG 12/10/2023 7:00 PM CDT [facility] BLOOD BANK Antibody Screen Negative Negative 12/10/2023 7:00 PM CDT [facility] BLOOD BANK SPECIMEN EXPIRATION DATE [id number] 12/10/2023 7:00 PM CDT [facility] BLOOD BANK Blood STRUCTURE OF LEFT UPPER LIMB / Unknown Venipuncture / Unknown 12/11/2023 8:32 AM CDT 12/11/2023 8:32 AM CDT Rizwana Tejeda PRECAST WORKER TANK ASSEMBLER LAB - BLOO D BANK TEST ORDER [facility] BLOOD BANK [address] [place] [address], [facility] * Basic metabolic panel (12/11/2023 8:32 AM CDT) Sodium 140 135 - 145 mmol/L 12/11/2023 9:04 AM CDT [facility] - CORE LAB Potassium 4.8 3.4 - 5.3 mmol/L 12/11/2023 9:04 AM CDT [facility] - [facility] Chloride 103 98 - 107 mmol/L 12/11/2023 9:04 AM CDT [facility] - [facility] Carbon Dioxide (CO2) 28 22 - 29 mmol/L 12/11/2023 9:04 AM CDT [facility] - [facility] Anion Gap 9 7 - 15 mmol/L 12/11/2023 9:04 AM CDT [facility] - [facility] Urea Nitrogen 14.4 8.0 - 23.0 mg/dL 12/11/2023 9:04 AM CDT [facility] - [facility] Creatinine 0.86 0.67 - 1.17 mg/dL 12/11/2023 9:04 AM CDT [facility] - [facility] GFR Estimate >90 >60 mL/min/1.7 3m2 12/11/2023 9:04 AM CDT [facility] - [facility] Comment:eGFR calculated us2020 CKD-EPI equation. Calcium 9.2 8.8 - 10.2 mg/dL 12/11/2023 9:04 AM CDT [facility] - [facility] Glucose 99 70 - 99 mg/dL 12/11/2023 9:04 AM CDT [facility] - [facility] Blood STRUCTURE OF LEFT UPPER LIMB / Unknown Venipuncture / Unknown 12/11/2023 8:32 AM CDT 12/11/2023 8:32 AM CDT Rizwana Tejeda APRN TANK ASSEMBLER LAB - BLOO D ORDERABLES [facility] - CORE LAB [facility] [address] [facility] 1st [place] [address] * (ABNORMAL) CBC with platelets (12/11/2023 8:32 AM CDT) WBC Count 7.1 4.0 - 11.0 10e3/uL 12/11/2023 8:38 AM CDT [facility] RBC Count 3.91(L) 4.40 - 5.90 10e6/uL 12/11/2023 8:38 AM CDT [facility] - [facility] Hemoglobin 11.4(L) 13.3 - 17.7 g/dL 12/11/2023 8:38 AM CDT [facility] - [facility] Hematocrit 34.8(L) 40.0 - 53.0 % 12/11/2023 8:38 AM CDT [facility] MCV 89 78 - 100 fL 12/11/2023 8:38 AM CDT [facility] MCH 29.2 26.5 - 33.0 pg 12/11/2023 8:38 AM CDT [facility] MCHC 32.8 31.5 - 36.5 g/dL 12/11/2023 8:38 AM CDT [facility] RDW 16.1(H) 10.0 - 15.0 % 12/11/2023 8:38 AM CDT [facility] Platelet Count 196 150 - 450 10e3/uL 12/11/2023 8:38 AM CDT [facility] - [facility] Blood STRUCTURE OF LEFT UPPER LIMB / Unknown Venipuncture / Unknown 12/11/2023 8:32 AM CDT 12/11/2023 8:32 AM CDT Rizwana Tejeda APRN TANK ASSEMBLER LAB - BLOO D ORDERABLES [facility] - CORE LAB [facility] [address] 1st [place] [address] documented in this encounter Visit Diagnoses Diagnosis Preop examination Preoperative examination, unspecified 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
--- OUTSIDE RECORDS SUMMARY | 2024-01-18 04:00 | XMS_ITS | Encounter Summary ---
Author Organization [facility] Address [address] [place] [id number] Care Team Providers Care [employer] Name Role Phone Alvaro Clark MD Unavailable System, Provider Not In Primary Care Provider Un available Sixto Whalen APRN FACIALIST Unavailable [phone] Reason for Referral * Diagnostic Imaging CT Scan (Routine) - Closed Specialty Diagnoses / Procedures Referred By Contac t Referred To Contact Radiology. 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) Procedures CT Chest/Abdomen/Pelvis w Contrast Yessica Mcleod PA-C [address] [place] [address] Fax: [phone] Rh Ct Scan [address] [place] [address] Referral ID Status Reason Start Date Expiration Date Visits Re quested Visits Authorized [id number] Closed 11/27/2023 11/26/2024 1 1 Reason for Visit * Reason Comments Oncology Clinic Visit Encounter Details Date Type Department Care Team (Latest Contact Info) Description 11/27/2023 2:30 PM CDT Oncology Visit [address] [place] [address] [facility] [place] [phone] Yessica Mcleod PA-C [address] [place] [address] Urothelial cancer (H) (Primary Dx); Malignant neoplasm [...] initially had urinary retention wasseen in the [facility] in May 2023. He saw urology [...] bleeding. PMHx and Social Hx reviewed per [facility]. Medications: Current Outpatient Medications Medication Sig Dispense [...] US negative for DVT. Chart documentation with [employer] Voice recognition Software. Although reviewed after completion, some words and grammatical errors may remain. 18 minutes spent on the date of the encounter doing chart review, review of test results, interpretation of tests, patient visit, documentation, discussion with other provider(s), and discussion withfamily Yessica Cheng PA-C Hematology/Oncology [facility] documented in this encounter Nursing Notes [...] not needed today. Pharmacy name entered into [facility]: [place], [place] - [address] [place] [address] Frailty Screening: Is the patient here for a new oncology consult visit in cancer care? 2. No Clinical concerns: f/u Lori Portillo CMA documented in this encounter Plan of Treatment Upcoming Encounters Date Type Department Care Team (Late st Contact Info) Description 03/04/2024 8:00 AM CDT Oncology Visit [facility] [address] [facility] [address] [facility] [place] [phone] Ky Torres MD [address] [place] [id number] documented as of this encounter Results * [...] abdomen. DAWSON KNOWLES MD Yessica Haynes PA-C IMG CT ORDERABLES documented in this encounter [...] bladder documented in this encounter Care Teams [employer] Relationship Specialty Start Date End Date System, Provider Not In PCP - General Clinic 08/13/23 12/21/23 Alvaro Clark MD [address] [place] [address] [phone] Assigned Surgical Provider 07/24/23 Sixto Whalen APRN FACIALIST [address] [place] [id number] Assigned Cancer Care Provider 10/22/23 12/21/23 documented as of this encounter
--- OUTSIDE RECORDS SUMMARY | 2024-01-18 04:00 | XMS_ITS | Encounter Summary ---
Author Organization [facility] Address [address] [place] [address] Care Team Providers Care [employer] Name Role Phone Alvaro Clark MD Unavailable System, Provider Not In Primary Care Provider Un available Sixto Whalen APRN DISTRIBUTION ENGINEER Unavailable [phone] Encounter Details Date Type Department Care Team (Late st Contact Info) Description 12/08/2023 PRE VISIT [facility] [address] [place] [phone] Rizwana Tejeda APRN DISTRIBUTION ENGINEER [address] [place] [address] Social History Tobacco Use Types Packs/Day Years [...] Upcoming Encounters Date Type Department Care Team ([facility] st Contact Info) Description 03/04/2024 8:00 AM CDT Oncology Visit [address] [place] [address] [facility] [place] [phone] Ky Torres MD [address] [facility] [address] [place], [place] [phone] documented as of this encounter Visit Diagnoses Not on filedocumented in this encounter Care Teams [employer] Relationship Specialty Start Date End Date System, Provider Not In PCP - General Clinic 08/13/23 12/21/23 Alvaro Clark MD [address] [facility] [address] [place] [address] Assigned Surgical Provider 07/24/23 Sixto Whalen APRN CNP [address] [place] [address] Assigned Cancer Care Provider 10/22/23 12/21/23 documented as of this encounter
--- OUTSIDE RECORDS SUMMARY | 2024-01-18 04:00 | XMS_ITS | Encounter Summary ---
Author Organization [facility] Address [address] [place] [address] Care Team Providers Care Oil Recovery Unit Operator Name Role Phone Alvaro Clark MD Unavailable No Ref-Primary, Physician Primary Care Provider Yessica Mcleod PA-C Unavailable Reason for Visit * Auth/Cert Specialty Diagnoses / Procedures Referred By Virgil t Referred To Contact Surgery Diagnoses 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 (H) 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 (H) [C67.9] Procedures NJ REMV BLADDER,CONTINENT DIVERSN CYSTECTOMY, pelvic node dissection WITH ILEAL NEOBLADDER CREATION possible ileal conduit Uu Periop [address] [place] [address] Referral ID Status Reason Start Date Expiration Date Visits Re quested Visits Authorized [id number] 1 1 Encounter Details Date Type Department Care Team (Late st Contact Info) Description 12/22/2023 8:00 AM CDT - 12/22/2023 1:00 PM CDT Surgery [facility] PeriOp Services [address] [place] [address] Alvaro Clark MD 420 [facility] [address] [place] [address] CYSTECTOMY, pelvic node dissection WITH [...] Dai NP - 12/25/2023 10:13 AM CDT [facility] UroDischarge Summary Patient: Oleg Richard : [...] a bowel movement in 3 days, start qbbw-pbd-weggbem Milkof Magnesia taken twice daily until you [...] on their own within 5-10 days. - Fernando will be removed at your follow up [...] your follow-up appointment. - Your nurse or rehabilitation case coordinator will provide written catheter care instructions for [...] a clean towel or dried with a hair-supervisor maintenance and custodians. - You may shower with your catheter [...] Thursday through Thursday 8am to 4:30pm: Call [phone] with questions, requests for medication refills, or to schedule or confirm an appointment. - Nights, weekends, or holidays: call the after hours emergency pager - [phone] and tell the xerox machine operator I would like to page the Urology Resident non morse intercept technician. Typically, the on-call provider should return your call within 30 minutes. Please page the on-call provider again if you haven't been contacted as expected. Rarely, the on-call provider will be unable to promptly return a call due to a hospital emergency. If you have paged twice and are still not contacted, ask the hospital xerox machine operator to page the urology CHIEF-RESIDENT non morse intercept technician. - Please note that due to prescribing [...] to reach the Urology resident or PA non morse intercept technician - [phone] to reach the Urology resident or PA non morse intercept technician - Weeknights and weekends December 25, 2023 [...] Noe Erickson MD, MPH Urology Resident, PGY-2 RECOVERER medications: Prior to Admission medications Medication Sig [...] questions or concerns regarding this patient. Note junior copywriter may be unavailable. To access [facility] from intranet: under Applications --> Business Applications select [employer] and search Urology Adult & Pediatric/[facility]. Please note that any question about a urology inpatient, [place] or [place], should go to job code [id number]. * [...] Noe Erickson MD, MPH Urology Resident, PGY-2 RECOVERER medications: Prior to Admission medications Medication Sig [...] questions or concerns regarding this patient. Note junior copywriter may be unavailable. To access [employer] from intranet: under Applications --> Business Applications select [employer] and search Urology Adult & Pediatric/[facility]. Please note that any question about a urology inpatient, [place] or [place], should go to job code [id number]. * [...] identified Bed Mobility Bed Mobility supine-sit;sit-supine Supine-Sit Girard (Bed Mobility) verbal cues Sit-Supine Girard (Bed Mobility) verbal cues Transfers Transfers sit-stand transfer Sit-Stand Transfer Sit-Stand Girard (Transfers) supervision Balance Balance Assessment no deficits identified Activities of Daily Living BADL Assessment/Intervention bathing;upper body dressing;lower body dressing;clothing fastener management;grooming;toileting Bathing Assessment/Intervention Girard Level (Bathing) set up Comment, (Bathing) Per clinical judgement Upper Body Dressing Assessment/Training Comment, (Upper Body Dressing) Per clinical judgement Girard Level (Upper Body Dressing) independent Lower Body Dressing Assessment/Training Girard Level (Lower Body Dressing) modified independence Clothes Fastener Management Girard Level (Clothes Fastener Management) independent Grooming Assessment/Training Girard Level (Grooming) supervision Toileting Girard Level (Toileting) supervision Clinical Impression Criteria for [...] Evaluation Time OT Eval, Low Complexity Minutes (11013) 10 OT Goals Therapy Frequency (OT) One [...] Management Self-Care/Home Mgmt/ADL, Compensatory, Meal Prep Minutes (92497) 12 Symptoms Noted During/After Treatment (Meal Preparation/Planning Training) increased pain Treatment Detail/Skilled Intervention OT: Facilitated ADL for increased IND within precautions. Pt educated on abdominal precautions, handout provided. Pt completed log roll technique for bed mobility with verbal cues, progressed to mod IND. Reviewed with pt LB dressing within precautions, pt unable to demo figure four, reported he is familiar with using procurement buyer tool for LB dressing and has slip on shoes he wears. Educated pt on IADLs with 10 # weight restriction. Pt demo'd mod IND mobility in room once set up with IV pole due to multiple lines, completed ADLS SBA and progressed to mod IND-IND. Therapeutic Activities Therapeutic Activity Minutes (24768) 10 Symptoms noted during/after treatment fatigue Treatment [...] MD. Camilla Larkin MD, PGY-2 Urology Resident RECOVERER medications: Prior to Admission medications Medication Sig [...] questions or concerns regarding this patient. Note junior copywriter may be unavailable. To access [facility] from intranet: under Applications --> Business Applications select [employer] and search Urology Adult & Pediatric/[facility]. Please note that any question about a urology inpatient, [place] or [place], should go to job code [id number]. * [...] cath with red output. BS+, passing flatus. [place] urge sat Diet: Clears. Skin/Incisions/Drains: Midline abd [...] 5:41 AM CDT Goal Outcome Evaluation: Shift [phone] A&Ox4, cooperative, makes needs known. Abdominal pain [...] Nicholas RN - 12/24/2023 3:41 AM CDT [id number] Status: OD#1 s/p cystectomy with ileal neobladder [...] and pt belching. thanks. shobha ho rn [phone] * Plan of Care - Ana Thomason OTR - 12/23/2023 11:53 AM CDT Occupational Therapy Discharge Summary Reason for therapy discharge: All goals and outcomes met, no further needs identified. Progress towards therapy goal(s). See goals on Care Plan in [facility] electronic health record for goal details. Goals [...] Date: 12/22/2023 Attending Surgeon: Alvaro Clark MD Hand Coper(s): Alberto Tejeda M.D.-PGY-5 Preoperative Diagnosis(es): High grade [...] in the usual sterile fashion. A #16 Serbian Parry catheter was placed in the bladder. [...] and vein from the lymph node of [place] proximally to join up with the proximal [...] 60 stapler. We opened the windows of [place] for approximately 5 cm alongthe proximal segment [...] sutures. We then performed a standard stapled hwnm-cl-rddg functional end-to-end small bowel anastomosis by firing a JORGE 60 stapler along the antimesenteric border and closed the enterotomies for the anastomosis using a TA 60 stapler. The crossing staple lines were reinforced using 3-0 silk suture in a bqipzt-nr-mfibp fashion. A similar suture was done at [...] away from thepouch. We placed a #19 Serbian Brandon drain into the plane between the [...] Tejeda MD - 12/22/2023 2:24 PM CDT [facility] Brief Operative Note Pre-operative diagnosis: [...] Implant Name Type Inv. Item Serial No. Blocker Polishing Lot No. LRB No. Used Action STENT URETERAL CELLAR SUPERVISOR DIVERSION [id number] - [id number] Stent STENT URETERAL CELLAR SUPERVISOR DIVERSION [id number] [facility] [id number] N/A 1 Implanted Fluids: 3200 crystalloid 250 albumin Admit Urology Urology to irrigate AM and PM Neobladder pathway Alberto Tejeda MD Urology PGY-5 * Pharmacy-Admission Medication History - Uriel Kaba - 12/15/2023 12:03 PM CDT Employment Officer Pre-operative Admission Medication History Admission medication history [...] 09/14/23 per dispense history. Changes made to RECOVERER medication list: Added: None Deleted: None Changed: None Allergies reviewed with patient and updates made in EHR: yes Medication History Completed By: Uriel Kaba 12/15/2023 12:03 PM RECOVERER Med List Medication Sig Last Dose acetaminophen-caffeine (EXCEDRIN TENSION HEADACHE) 500-65 MG TABS Take 2 tablets by mouth every 6 hours as needed for mild pain (PRN HEADACHE) diphenhydrAMINE HCl (BENADRYL ALLERGY PO) Take 1 tablet by mouth as needed Associated attestation - Nabeel Mcghee RPH - 12/15/2023 12:17 PM CDT I was not present during the environmental health and safety intern's interview, but I agree with the documentation. Nabeel Mcghee, Pharm.D, [facility] December 15, 2023 documented in this encounter Plan of Treatment Upcoming Encounters Date Type Department Care Team (Late st Contact Info) Description 03/04/2024 8:00 AM CDT Oncology Visit [facility] [id number] [place] [address] [address] [facility] [place] [phone] Ky Torres MD 420 [facility] [address] [place] [address] documented as of this encounter Procedures Procedure [...] - BODY FLUIDS OR DERABLES [facility] LABORATORY [facility] [place] Core Lab [address] [facility], [address] [place] [address], [facility] * (ABNORMAL) CBC with platelets (12/25/2023 [...] ES [facility] LABORATORY [facility] [place] Core Lab [address] [facility], [address] [place] [address] * (ABNORMAL) Basic metabolic panel [...] LAB - BLOOD ORDERABL ES U LABORATORY [facility] [place] Core Lab [address] [facility], [address] * Phosphorus (12/24/2023 6:16 AM CDT) Phosphorus 2.9 2.5 - 4.5 mg/dL 12/24/2023 7:26 AM CDT [facility] LABORATORY Blood (Portacath) IVAD (Port) / Unknown 12/24/2023 6:16 AM CDT 12/24/2023 6:41 AM CDT Alberto Tejeda MD LAB - BLOOD ORDERABL ES [facility] LAB[facility]ATORY [facility] [place] Core Lab [address] [facility], [address] * Magnesium (12/24/2023 6:16 AM CDT) Magnesium 1.8 1.7 - 2.3 mg/dL 12/24/2023 10:59 AM CDT [facility] LABORATORY Blood (Portacath) IVAD (Port) / Unknown 12/24/2023 6:16 AM CDT 12/24/2023 6:41 AM CDT Alberto Tejeda MD LAB - BLOOD ORDERABL ES [facility] LABORATORY [facility] [place] Core Lab [address] [facility], [address] [place] [address], [facility] * (ABNORMAL) CBC with platelets (12/24/2023 6:16 AM CDT) Pathologist [facility] WBC Count 9.8 4.0 - 11.0 10e3/uL [...] ES [facility] LABORATORY [facility] [place] Core Lab [address] [facility], [address] [place] [address] * (ABNORMAL) Basic metabolic panel [...] ES [facility] LABORATORY [facility] [place] Core Lab [address] [facility], [address] [phone] * (ABNORMAL) CBC with platelets (12/23/2023 [...] ES [facility] LABORATORY [facility] [place] Core Lab [address] [facility], [address] [address] * (ABNORMAL) Basic metabolic panel [...] ES [facility] LABORATORY [facility] [place] Core Lab [address] [facility], [address] [place] [address] * (ABNORMAL) Glucose by meter (12/23/2023 6:42 AM CDT) GLUCOSE BY METER POCT 118(H) 70 - 99 mg/dL 12/23/2023 6:49 AM CDT [facility] LABORATORY POC Blood, Capillary BLOOD SPECIMEN / Unknown 12/23/2023 6:42 AM CDT 12/23/2023 6:49 AM CDT Alvaro Clark MD LAB - BEAKER POCT Performing Organization Address [facility]/ZIP Co de Phone Number UU LABORATORY POC [facility] [place] Core Lab [address] [facility], [address] [place] [phone] * Platelet count (12/22/2023 9:55 PM CDT) Platelet Count 179 150 - 450 10e3/uL 12/22/2023 10:12 PM CDT [facility] LABORATORY Blood STRUCTURE OF RIGHT HAND / Unknown IVAD (Port) / Unknown 12/22/2023 9:55 PM CDT 12/22/2023 10:04 PM CDT Alberto Tejeda MD LAB - BLOOD ORDERABL ES Performing Organization Address [facility] Co de Phone Number [facility] LABORATORY [facility] [place] Core Lab [address] [facility], [address] * XR Abdomen Port 1 View (12/22/2023 3:16 PM CDT) Anatomical Region Laterality Modality Abdomen/Pelvis Computed Radiogr aphy Impressions 12/22/2023 3:50 PM CDT IMPRESSION: Ureteral stents project over the expected location of the UPJ bilaterally. I have personally reviewed the examination and initial interpretation and I agree with the findings. ALF MEHTA, Narrative 12/22/2023 3:50 PM CDT EXAMINATION: ??XR [...] Case Report Surgical Pathology Report ? Case: [id number] ? Authorizing Provider: ??Alvaro Clark MD ?Collected: [...] (no ureteric tissue identified) 4 6:[address] [facility] Comment:This is an appended report. These results have been appended to a previously preliminary verified report. Comment Immunohistochemistry analysis of CK5 and CHARLIE-3 was performed and supports the above diagnosis of invasion urothelial carcinoma. 4 6:[address] [facility] Comment:This is an appended report. [...] 9:15 AM Intra op performed at: LABORATORY, [facility] Core Lab, [address] [place] [address], [address] [phone] Intra-op Dx verbally delivered to Dr. Amber Tanner(2). Ureter, Right, Right distal ureteral margin: BFS1: Negative for malignancy John Carey MD on 12/22/2023 at 9:27 AM Intra op performed at: LABORATORY, [facility] Core Lab, [address] [facility], Room [address] [address] Intra-op Dx verbally delivered to Dr. Amber Segura(3). Urethra, urethral margin: CFS1: - No evidence of malignancy Tracie Gonzalez MD on 12/22/2023 at 10:41 AM Intra op performed at: LABORATORY, [facility] Core Lab, [address] [facility], [address], [facility] [address] Intra-op Dx verbally delivered to Dr. Clark [...] reveal no mass deposits or lymph nodes. Finishing Trimmer sections are submitted. Gross photography is taken. D1-urethral margin, en face D2-right ureter margin, en face D3-left ureter margin, en face D4-lesion to right ureteral orifice D5-lesion to left ureteral orifice O4-F46-lscqgo from dome to trigone O34-ixctym to seminal vesicles Z17-bvviq lateral wall Z95-ylodstoz bladder wall N72-rgmi S61-I22-eapaw prostatic apex U29-Y07-uufe prostatic apex D23-mid prostate, right anterior D24-mid prostate, left posterior D25-mid prostate, left anterior D26-mid prostate, left posterior K73-wvzl prostate, right anterior H27-knrw prostate, right posterior L70-rgdo prostate, mid T80-kifi prostate, left anterior I44-kcbz prostate, left posterior E(5). Lymph Node(s), Pelvis, [...] possible lymph nodes E2-intact possible lymph node C7-G5-vwjxkdso possible lymph node A0-A0-rczymsnz possible lymph node H3-Q64-fpsmpmhl sectioned possible lymph node F(6). Lymph Node(s), [...] possible lymph nodes F2-bisected possible lymph node X1-E6-ywvstifu sectioned possible lymph node G(7). Ureter, Left, [...] of this testing was completed at [facility]. Stain controls for [...] 12/22/2023 3:05 PM CDT Alvaro CONROY AP Performing Organization Address City/[facility]/ZIP Co de Phone Number SPECIALTY LABS Specialty Lab [address] [facility], [address] [phone] LABORATORY [facility] [place] Core Lab [address] [facility], [address] [address] * (ABNORMAL) Glucose by meter (12/22/2023 6:55 AM CDT) GLUCOSE BY METER POCT 101(H) 70 - 99 mg/dL 12/22/2023 7:01 AM CDT [facility] LABORATORY POC Blood, Capillary BLOOD SPECIMEN / Unknown 12/22/2023 6:55 AM CDT 12/22/2023 7:01 AM CDT Alvaro CONROY POCT [facility] LABORATORY POC [facility] [place] [facility] Lab [address] [facility], Room [address] [place] [phone] * Adult Type and Screen (12/22/2023 6:47 AM CDT) ABO/RH(D) A NEG 12/22/2023 6:16 AM CDT UU BLOOD BANK Antibody Screen Negative Negative 12/22/2023 6:16 AM CDT U BLOOD BANK SPECIMEN EXPIRATION DATE [id number] 12/22/2023 6:16 AM CDT U BLOOD BANK Blood STRUCTURE OF RIGHT HAND / Unknown Venipuncture / Unknown 12/22/2023 6:47 AM CDT 12/22/2023 6:56 AM CDT Alvaro Clark MD LAB - BLOOD BANK LICHA T ORDER BLOOD BANK [address] [place] [address], [facility] documented in this encounter Visit Diagnoses [...] on Thu12/22/23 at 0, This is Step 1 of nausea and [...] analgesic side effects. Hold while on IV WELFARE ELIGIBILITY INTERVIEWER or with regular IV opioid dosing. $Given [...] analgesic side effects. Hold while on IV WELFARE ELIGIBILITY INTERVIEWER or with regular IV opioid dosing. $Given [...] 750 mL in ON-Q C-Bloc select flow ([id number] holds 600-750 mL) dual cath disposable pump [...] grams/day. 0757 ($Given - Provider: Radha Merida, CARLOS)1602 ($Given - Provider: Shobha Sneed, RN) 0014 ($Given - Provider: Patsy Bryant RN)0819 (Not Given - Provider: Shobha Sneed, RN [...] reference link): Yes 0756 ($Given - Provider: Radah Merida RN) alvimopan (ENTEREG) capsule 12 mg [...] by the FDA (see reference link): Yes 2130 ($Given - Provider: Kelly Nicholas RN) 08 ($Given - Provider: Shobha Sneed RN)203 ($Given [...] Radha Merida RN)1325 ($Given - Provider: Shobha Sneed, CARLOS)2131 ($Given - Provider: Kelly Nicholas RN) 0832 ($Given - Provider: Shobha Sneed, CARLOS)1430 ($Given - Provider: Shobha Sneed, CARLOS)203 ($Given - Provider: Isaac Hutchins RN) 0702 [...] Shobha Sneed, CARLOS)2121 ($Given - Provider: Kelly Nicholas RN) 0832 ($Given - Provider: Shobha Sneed, CARLOS)1429 ($Given - Provider: Shobha Sneed RN)2038 ($Given - Provider: Isaac Hutchins, CARLOS) 0825 ($Given - Provider: Aaron Noonan, CARLOS)1334 [...] Sneed, CARLOS) 0029 ($Given - Provider: Patsy Bryant RN)0832 (Not Given - Provider: Shobha Sneed, CARLOS - Reason: Patient/family refused)1607 ($Given - Provider: Shobha Sneed, CARLOS)2341 ($Given - Provider: Isaac Hutchins RN) heparin [...] each port lumen 1458 ($Given - Provider: aAron Noonan, CARLOS) magnesium hydroxide (MILK OF MAGNESIA) suspension 30 mL 30 mL, Oral, AT BEDTIME, First dose (after last modification) on Fiona 12/24/23 at 2200, Shake well. Hold for loose stools. 2132 ($Given - Provider: Isaac Hutchins RN) nitroFURantoin [...] Sneed, RN) 0700 ($Given - Provider: Isaac Hutchins [...] Radha Merida RN)2121 ($Given - Provider: Kelly Nicholas, CARLOS) 0832 ($Given - Provider: Shobha Sneed RN)203 ($Given - Provider: Isaac Hutchins, CARLOS) 0825 [...] Reason: IV Infusing)1334 ($Given - Provider: Aaron Noonan, CARLOS) Continuous Medication Order 12/23/2023 12/24/2023 12/25/2023 lactated ringers infusion (CANCELED) at 10 mL/hr, Intravenous, CONTINUOUS, Starting on Thu12/22/23 at 1500, Until Thu12/25/23 at 0707 0933 (Rate/Dose Verify - Provider: Radha Magnolia, RN)0936 ($New Bag - Provider: Radha Merida RN)1602 (Rate/Dose Change - Provider: Shobha Sneed, RN)212 (Rate/Dose Verify - Provider: Kelly Nicholas RN)2217 ($New Bag - Provider: Zofia Prasad, CARLOS) 1432 ($New Bag - Provider: Shobha Sneed, RN)2038 (Rate/Dose Verify - Provider: Isaac Hutchins RN) 0635 (Rate/Dose Change - Provider: Isaac Hutchins RN)0728 (Stopped - Provider: Isaac Hutchins RN) ROPivacaine 0.2% (NAROPIN) 750 mL in ON-Q C-Bloc select flow ([id number] holds 600-750 mL) dual cath disposable pump at 1-7 mL/hr, CONTINUOUS, Starting on Thu12/22/23 at 0730, ROUTE = Wound Site. Medication is delivered through a catheter that has been placed by the surgeon into the wound site. 012 (Rate/Dose Verify - Provider: Oksana Flor RN [...] mg APAP 0829 ($Given - Provider: Shobha Sneed, CARLOS) benzocaine-menthol (CHLORASEPTIC MAX) 15-10 MG lozenge 1-2 [...] used when administering multiple Central Nervous System (INBOUND CUSTOMER SERVICE AGENT) depressing meds within a short time frame. [...] analgesic side effects. Hold while on IV WELFARE ELIGIBILITY INTERVIEWER or with regular IV opioid dosing. 0435 ($Given - Provider: Oksana Flor RN)1601 (See Alternative - Provider: Shobha Sneed, CARLOS) 0015 (See Alternative - Provider: Patsy Bryant, CARLOS)0428 (See Alternative - Provider: Patsy Bryant, CARLOS)0830 (See Alternative - Provider: Shobha Sneed, CARLOS)1254 [...] analgesic side effects. Hold while on IV WELFARE ELIGIBILITY INTERVIEWER or with regular IV opioid dosing. 0435 (See Alternative - Provider: Oksana Flor, RN)1601 ($Given - Provider: Shobha Sneed, RN) 0015 ($Given - Provider: Patsy Bryant, RN)0428 ($Given - Provider: Patsy Bryant, RN)0830 ($Given - Provider: Shobha Sneed, RN)1254 ($Given - Provider: Shohba Sneed, RN)1713 ($Given - Provider: Shobha Sneed, CARLOS)2138 ($Given [...] analgesic side effects. Hold while on IV WELFARE ELIGIBILITY INTERVIEWER or with regular IV opioid dosing. Or oxyCODONE IR (ROXICODONE) tablet 10 mgJump to med 10 mg, Oral, EVERY 4 HOURS PRN, severe pain, Starting on Thu12/22/23 at 1627, Hold oral PRN dose for analgesic side effects. Notify provider to assess for uncontrolled pain or analgesic side effects. Hold while on IV WELFARE ELIGIBILITY INTERVIEWER or with regular IV opioid dosing. Group [...] provider. documented in this encounter Care Teams Oil Recovery Unit Operator Relationship Specialty Start Date End Date No Ref-Primary, Physician PCP - General 12/22/23 12/27/23 Alvaro Clark MD [address] [place] [address] Assigned Surgical Provider 07/24/23 Yessica Mcleod PA-C [address] [place] [address] Assigned Cancer Care Provider 12/22/23 documented as of this encounter
--- OUTSIDE RECORDS SUMMARY | 2024-01-18 04:00 | XMS_ITS | Encounter Summary ---
Author Organization [facility] Address [address] [place] [address] Care Team Providers Care Prevocational/Rehabilitation Counselor Name Role Phone Alvaro Clark MD Unavailable System, Provider Not In Primary Care Provider Un available Sixto Whalen APRN SOFTWARE QUALITY ASSURANCE SPECIALIST Unavailable [phone] Reason for Visit * Reason Comments Pre-Op Exam Encounter Details Date Type Department Care Team (Late st Contact Info) Description 12/11/2023 8:00 AM CDT Office Visit [facility] [address] 5th [place] [phone] Rizwana Tejeda APRN SOFTWARE QUALITY ASSURANCE SPECIALIST [address] [place] [address] Preop examination (Primary Dx); 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 (H) Anesthesia Record Procedure Summary Procedure Name Responsible Anesthesiologist Anesthesia Start Time Anesthesia Stop Time CYSTECTOMY, pelvic node dissection WITH ILEAL NEOBLADDER CREATION (Abdomen) Forest Olson MD 12/22/23 0748 12/22/23 1437 Events Date Time Event Comment 12/22/2023 0654 CARBON FURNACE OPERATOR Ready for Procedure 0747 0748 An Start [...] Single 08/28/23; 0916; Right; Chest wall; Yes; [id number]; Yes; Yes; 6 Fr; 21 cm; SVC/RA [...] Cowan 2; Grade View: 1; Placement Person: CARBON FURNACE OPERATOR; Attempts: 1 12/22/23 0802 by Nessa Pereira APRN CRNA 12/22/23 1428 by Nessa Pereira APRN CRNA Peripheral IV 12/22/23; 0804; 18 G ; B [place]; Right; Hand; Alcohol; None; 1; Tolerated well 12/22/23 0804 by Nessa Periera APRN CRNA 12/24/23 1104 by Shobha Sneed [...] Drain 12/22/23; 1408; RLQ ; Bulb; 19 Equatorial Guinean 12/22/23 1408 by Natasha Alejo RN 12/25/23 [...] come to: Please come to: [facility] Unit [address] [place] [address] The [facility] ([facility] [place] Patient/Visitor Ramp is at [address] Patients and visitors who self-park will receive the reduced hospital parking rate. If the Patient /Visitor Ramp is full, please follow the signs to the [employer] car park located at the main hospital entrance. [employer] parking is available (24 hours/ 7 days a week) Discounted parking pass options are available for patients and visitors. They can be purchased at the [employer] desk at the main hospital entrance. - Stop at the security desk and they will direct surgery patients to the Surgery Check in and Family Lounge. [phone] - If you need directions, a wheelchair [...] or fragrance. - No makeup or fingernail mohawk. - Bring your ID and insurance card. [...] contact the Pre Admission Nursing Office at [phone]. - If you have health changes between [...] others Clean your hands with alcohol hand emergency man. Do this when you arrive at and [...] encounter H&P Notes * Rizwana Tejeda APRN SOFTWARE QUALITY ASSURANCE SPECIALIST - 12/11/2023 8:00 AM CDT Images from [...] P in preparation for Procedure Information Case: [id number] Date/Time: 12/22/23 0800 Procedure: CYSTECTOMY, pelvic node [...] BLADDER TUMOR; Surgeon: Alvaro Clark MD; Location: [facility] OR Prior to Admission Medications Current Outpatient [...] Resource Strain: High Risk (06/01/2021) [facility] from [facility] [employer] [facility] Financial Resource Strain Difficulty of Paying Living Expenses: Not on file Difficulty of Paying Living Expenses: Not on file Food Insecurity: Not on file Transportation Needs: Not on file Physical Activity: Not on file Stress: Not on file Social Connections: Unknown (08/15/2021) 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 Denies any exertional dyspnea or [...] Rizwana Tejeda APRN CNP Preoperative Assessment Center [facility] documented in this encounter Plan of Treatment Upcoming Encounters Date Type Department Care Team (Late st Contact Info) Description 03/04/2024 8:00 AM CDT Oncology Visit [facility] [address] [place] [address] DR [address]A [address] [facility] [place] [address] Ky Torres MD [address] [address] documented as of this encounter Results * Basic metabolic panel (12/11/2023 8:32 AM CDT) Sodium 140 135 - 145 mmol/L 12/11/2023 9:04 AM CDT [facility] - CORE LAB Potassium 4.8 3.4 - 5.3 mmol/L 12/11/2023 9:04 AM CDT [facility] - CORE LAB Chloride 103 98 - 107 mmol/L 12/11/2023 9:04 AM CDT [facility] - CORE LAB Carbon Dioxide (CO2) 28 22 - 29 mmol/L 12/11/2023 9:04 AM CDT [facility] - CORE LAB Anion Gap 9 7 - 15 mmol/L 12/11/2023 9:04 AM CDT [facility] - CORE LAB Urea Nitrogen 14.4 8.0 - 23.0 mg/dL 12/11/2023 9:04 AM CDT [facility] - CORE LAB Creatinine 0.86 0.67 - 1.17 mg/dL 12/11/2023 9:04 AM CDT [facility] - CORE LAB GFR Estimate >90 >60 mL/min/1.7 3m2 12/11/2023 9:04 AM CDT [facility] - CORE LAB Comment:eGFR calculated usin g 2020 CKD-EPI equation. Calcium 9.2 8.8 - 10.2 mg/dL 12/11/2023 9:04 AM CDT [facility] - CORE LAB Glucose 99 70 - 99 mg/dL 12/11/2023 9:04 AM CDT [facility] - CORE LAB Blood STRUCTURE OF LEFT UPPER LIMB / Unknown Venipuncture / Unknown 12/11/2023 8:32 AM CDT 12/11/2023 8:32 AM CDT Rizwana Tejeda PICKER FEEDER SOFTWARE QUALITY ASSURANCE SPECIALIST LAB - BLOO D ORDERABLES [facility] - CORE LAB [facility] [address] 1st [place] [address] * (ABNORMAL) CBC with platelets (12/11/2023 8:32 AM CDT) WBC Count 7.1 4.0 - 11.0 10e3/uL 12/11/2023 8:38 AM CDT [facility] - CORE LAB RBC Count 3.91(L) 4.40 - 5.90 10e6/uL 12/11/2023 8:38 AM CDT [facility] - CORE LAB Hemoglobin 11.4(L) 13.3 - 17.7 g/dL 12/11/2023 8:38 AM CDT [facility] - CORE LAB Hematocrit 34.8(L) 40.0 - 53.0 % 12/11/2023 8:38 AM CDT [facility] - CORE LAB MCV 89 78 - 100 fL 12/11/2023 8:38 AM CDT [facility] - CORE LAB MCH 29.2 26.5 - 33.0 pg 12/11/2023 8:38 AM CDT [facility] - CORE LAB MCHC 32.8 31.5 - 36.5 g/dL 12/11/2023 8:38 AM CDT [facility] - CORE LAB RDW 16.1(H) 10.0 - 15.0 % 12/11/2023 8:38 AM CDT [facility] - CORE LAB Platelet Count 196 150 - 450 10e3/uL 12/11/2023 8:38 AM CDT [facility] - CORE LAB Blood STRUCTURE OF LEFT UPPER LIMB / Unknown Venipuncture / Unknown 12/11/2023 8:32 AM CDT 12/11/2023 8:32 AM CDT Rizwana Tejeda APRN SOFTWARE QUALITY ASSURANCE SPECIALIST LAB - BLOO D ORDERABLES [facility] - CORE LAB [facility] [place] [address] [place] [address] 1st [place] [address] documented in this encounter Visit Diagnoses Diagnosis Preop examination- Primary Preoperative examination, unspecified 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 (H) documented in this encounter Care Teams Prevocational/Rehabilitation Counselor Relationship Specialty Start Date End Date System, Provider Not In PCP - General Clinic 08/13/23 12/21/23 Alvaro Clark MD [address] [address] Assigned Surgical Provider 07/24/23 Sixto Whalen APRN CNP [address] [place] [address] Assigned Cancer Care Provider 10/22/23 12/21/23 documented as of this encounter
--- OUTSIDE RECORDS SUMMARY | 2024-01-18 04:00 | XMS_ITS | Encounter Summary ---
Author Organization [facility] Address [address] [place] [address] Care Team Providers Care Salesperson Used Cars Name Role Phone Alvaro Clark MD Unavailable No Ref-Primary, Physician Primary Care Provider Yessica Mcleod PA-C Unavailable Reason for Visit * Auth/Cert Specialty Diagnoses / Procedures Referred By Contkatlyn t Referred To Contact Surgery Diagnoses 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 (H) 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 (H) [C67.9] Procedures [place] REMV BLADDER,CONTINENT DIVERSN CYSTECTOMY, pelvic node dissection WITH ILEAL NEOBLADDER CREATION possible ileal conduit Uu Periop [address] [place] [address] Referral ID Status Reason Start Date Expiration Date Visits Re quested Visits Authorized [id number] 1 1 Encounter Details Date Type Department Care Team (Late st Contact Info) Description 12/22/2023 7:48 AM CDT Anesthesia Event [facility] [address] [place] [address] Forest Olson MD 420 [place], [place] [address] Anesthesia Record Procedure Summary Procedure Name Responsible Anesthesiologist Anesthesia Start Time Anesthesia Stop Time CYSTECTOMY, pelvic node dissection WITH ILEAL NEOBLADDER CREATION (Abdomen) Forest Olson MD 12/22/23 0748 12/22/23 1437 Events Date Time Event Comment 12/22/2023 0654 BLANKET MAKER Ready for Procedure 0747 0748 An Start [...] recorded are pre- induction. Nessa Pereira APRN BLANKET MAKER 0757 An Induction 0802 An Intubation 0810 Anesthesia Ready for Procedu re 1428 AN Extubation All extubation criteria met prior to removal. 1430 an stop data 1437 An Stop Electronically signed by Nessa Pereira APRN BLANKET MAKER on December 22, 2023 2:37 PM Meds [...] Single 08/28/23; 09; Right; Chest wall; Yes; [id number]; Yes; Yes; 6 Fr; 21 cm; SVC/RA [...] Cowan 2; Grade View: 1; Placement Person: BLANKET MAKER; Attempts: 1 12/22/23 0802 by Nessa Pereira APRN BLANKET MAKER 12/22/23 1428 by Nessa Pereira APRN BLANKET MAKER Peripheral IV 12/22/23; 0804; 18 G ; [...] Drain 12/22/23; 1408; RLQ ; Bulb; 19 Qatari 12/22/23 1408 by Natasha Alejo RN 12/25/23 [...] Start/Stop Times: 12/22/2023 8:02 AM Staff - BLANKET MAKER: Nessa Pereira APRN BLANKET MAKER Performed By: CRNAIndications and Patient Condition Indications [...] P in preparation for Procedure Information Case: [id number] Date/Time: 12/22/23 0800 Procedure: CYSTECTOMY, pelvic node [...] BLADDER TUMOR; Surgeon: Alvaro Clark MD; Location: [facility] OR Prior to Admission Medications No current [...] Resource Strain: High Risk (06/01/2021) [facility] Financial Resource Strain ??? Difficulty of Paying Living Expenses: Not on file ??? Difficulty of Paying Living Expenses: Not on file Food Insecurity: Not on file Transportation Needs: Not on file Physical Activity: Not on file Stress: Not on file Social Connections: Unknown (08/15/2021) Received from [facility] Social Connections ??? 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 Denies any exertional dyspnea or [...] Total time: 24 minutes Rizwana Tejeda APRN [facility] Preoperative Assessment Center [facility] Physical Exam [...] and realistic alternatives discussed. Questions answered and patient/personal service representative(s) expressed understanding. - Discussed: - Discussed [...] Description 03/04/2024 8:00 AM CDT Oncology Visit [facility] [address] [facility] [address] [facility] [place] [phone] Ky Torres MD 420 [facility] [address] [place], [place] [phone] documented as of this encounter Procedures Procedure Name Priority Date/Time Associated Diagnosis Comments ANE AIRWAY ETT PERFORMABLE Routine 12/22/2023 8:02 AM CDT documented in this encounter Results * ANE AIRWAY ETT PERFORMABLE (12/22/2023 8:02 AM CDT) Narrative Nessa Pereira APRN BLANKET MAKER - 12/22/2023 8:02 AM CDT Nessa Pereira APRN BLANKET MAKER ? 12/22/2023 ??8:22 AM Airway ? Patient location during procedure: OR ? Procedure Start/Stop Times: 12/22/2023 8:02 AM Staff - ? BLANKET MAKER: Nessa Pereira APRN BLANKET MAKER ? Performed By: CRNAIndications and Patient Condition [...] Time: 12/22/2023 8:02 AM Forest Olson MD [place] ANESTHESIA documented in this encounter Visit Diagnoses [...] mg documented in this encounter Care Teams Salesperson Used Cars Relationship Specialty Start Date End Date No Ref-Primary, Physician PCP - General 12/22/23 12/27/23 Alvaro Clark MD [address] [place] [address] Assigned Surgical Provider 07/24/23 Yessica Mcleod PA-C [address] [place] [address] Assigned Cancer Care Provider 12/22/23 documented as of this encounter
--- OUTSIDE RECORDS SUMMARY | 2024-01-18 04:01 | XMS_ITS | Encounter Summary ---
Author Organization [facility] Address [address] [place] [address] Care Team Providers Care General Adjuster Name Role Phone Alvaro Clark MD Unavailable System, Provider Not In Primary Care Provider Un available Sixto Whalen APRN EXPANDER MACHINE OPERATOR Unavailable [phone] Encounter Details Date Type Department Care Team [...] Description 03/04/2024 8:00 AM CDT Oncology Visit [facility] [address] [facility] [place] [phone] Ky Torres MD [address] [address] documented as of this encounter Visit Diagnoses Not on filedocumented in this encounter Care Teams General Adjuster Relationship Specialty Start Date End Date System, Provider Not In PCP - General Clinic 08/13/23 12/21/23 Alvaro Clark MD 420 [facility] [address] [place] [address] Assigned Surgical Provider 07/24/23 Sixto Whalen APRN CNP [address] [place] [address] Assigned Cancer Care Provider 10/22/23 12/21/23 documented as of this encounter
--- OUTSIDE RECORDS SUMMARY | 2024-01-18 04:01 | XMS_ITS | Encounter Summary ---
Author Organization [facility] Address [address] [place] [address] Care Team Providers Care Adjunct Professor Of Voice Name Role Phone Alvaro Clark MD Unavailable System, Provider Not In Primary Care Provider Un available Sixto Whalen APRN SUMAC TANNER Unavailable [phone] Reason for Referral * Diagnostic Imaging CT Scan (Routine) - Closed Specialty Diagnoses / Procedures Referred By Contac t Referred To Contact Radiology. 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 [place] [address] Referral ID Status Reason Start Date Expiration Date Visits Re quested Visits Authorized [id number] Closed 11/18/2023 11/17/2024 1 1 Encounter Details Date Type Department Care Team (Late st Contact Info) Description 11/18/2023 Orders Only [facility] - Cancer Care Service Line [facility]0 [place] [address] Ky Torres MD [address] [place] [address] Malignant neoplasm of trigone of urinary [...] AM CDT Oncology Visit [facility] [address] [place] [address] [facility] [place] [phone] Ky Torres MD 420 [facility] [address] [place] [address] documented as of this encounter Results [...] previous. KATHRYN RODRIGUEZ MD Ky Torres MD 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
--- OUTSIDE RECORDS SUMMARY | 2024-01-18 04:01 | XMS_ITS | Encounter Summary ---
Author Organization [facility] Address [address] [place] [address] Care Team Providers Care Excavator Operator Name Role Phone Alvaro Clark MD Unavailable System, Provider Not In Primary Care Provider Un available Sixto Whalen APRN, CNP Unavailable [phone] Reason for Referral * Diagnostic Imaging PET (Routine) - Pending Review Specialty Diagnoses / Procedures Referred By Contac t Referred To Contact Radiology. 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) Procedures PET Oncology Whole Body Sixto Whalen APRN AIRLINE CAPTAIN [address] [place] [address] Referral ID Status Reason Start Date Expiration Date V isits Requested Visits Authorized [id number] Pending Review 10/27/2023 10/26/2024 1 1 Reason for Visit * Reason Comments Video Visit Follow Up Encounter Details Date Type Department Care Team (Late st Contact Info) Description 10/27/2023 2:30 PM CDT Virtual Visit [facility] [place] [address], [address] [facility] [place] [phone] Sixto Whalen APRN AIRLINE CAPTAIN [address] [place], [place] [phone] Urothelial cancer (H) (Primary Dx); Malignant neoplasm [...] encounter Progress Notes * Sixto Whalen APRN AIRLINE CAPTAIN - 10/27/2023 2:30 PM CDT Virtual Visit [...] condition or questions Sixto Whalen APRN CNP [facility] Chart documentation with [employer] Voice recognition Software. Although reviewed after completion, some words and grammatical errors may remain. documented in this encounter Nursing Notes * Maria Alejandra Harris - 10/27/2023 2:30 PM CDT Is the patient currently in the state of [place]? YES Visit mode:TELEPHONE If the visit is dropped, the patient can be reconnected by: VIDEO VISIT: Send to e-mail at: [email or web address] Will anyone else be joining the visit? NO (If patient encounters technical issues they should call [phone] :[phone]) How would you like to obtain your AVS? MyChart Are changes needed to the allergy or medication list? No Reason for visit: Video Visit (Follow Up ) Maria Alejandra Harris VVF documented in this encounter Plan of Treatment Upcoming Encounters Date Type Department Care Team (Late st Contact Info) Description 03/04/2024 8:00 AM CDT Oncology Visit [address] 200 [facility] [place] [address] Ky Torres MD 420 [facility] [address] [place] [address] Scheduled Orders Name Type Priority [...] bladder documented in this encounter Care Teams Excavator Operator Relationship Specialty Start Date End Date System, Provider Not In PCP - General Clinic 08/13/23 12/21/23 Alvaro Clark MD [address] [phone] Assigned Surgical Provider 07/24/23 Sixto Whalen APRN CNP [address] [place] [address] Assigned Cancer Care Provider 10/22/23 12/21/23 documented as of this encounter
--- OUTSIDE RECORDS SUMMARY | 2024-01-18 04:01 | XMS_ITS | Encounter Summary ---
Author Organization [place] Address [address] [place] [address] Care Team Providers Care Copier Repair Technician Name Role Phone Alvaro Clark MD Unavailable System, Provider Not In Primary Care Provider Un available Sixto Whalen APRN CLOTH TESTER Unavailable [phone] Reason for Visit * Reason Comments Port Draw Encounter Details Date Type Department Care Team (Late st Contact Info) Description 10/27/2023 12:[address] [facility] [address] [phone] Yessica Mcleod, PAJannetC [address] [place] [address] Urothelial cancer (H) (Primary Dx) [...] today: Yes: Sixto Whalen NP (virtual visit) Unix System Administrator present during visit today: Not Applicable. Note: N/A. Intravenous Access: Labs drawn without difficulty. Implanted Port. Discharge Plan: Patient was sent to home after appointment. Felix Waller, RN documented in this encounter Plan of Treatment Upcoming Encounters Date Type Department Care Team (Late st Contact Info) Description 03/04/2024 8:00 AM CDT Oncology Visit [facility] [address] [place] [address] [facility] [place] [address] Ky Torres MD [address] [phone] documented as of this encounter Procedures Procedure [...] 10/27/2023 12:48 PM CDT Sixto Whalen APRN CLOTH TESTER LAB - BLOOD ORDERABL ES [facility] Acute Care Lab [address] Lab (1st floor, no room number) [place] [address], [facility] * (ABNORMAL) CBC with platelets [...] APRN, CNP LAB - BLOOD ORDERABL ES [facility] Acute Care Lab [address] Lab (1st floor, no room number) [place] [phone] [place] [address] * Magnesium (10/27/2023 12:25 PM CDT) Magnesium 1.9 1.7 - 2.3 mg/dL 10/27/2023 1:11 PM CDT [facility] Blood BLOOD SPECIMEN / Unknown IVAD (Port) / Unknown 10/27/2023 12:25 PM CDT 10/27/2023 12:48 PM CDT Sixto Whalen APRN, CNP LAB - BLOOD ORDERABL ES Performing Organization Address [facility]/ZIP Co de Phone Number [facility] Acute Care Lab [address] Lab (1st floor, no room number) [place] [phone] [place] [address] * (ABNORMAL) Comprehensive metabolic panel (10/27/2023 12:25 PM CDT) Sodium 140 135 - 145 mmol/L 10/27/2023 1:11 PM CDT [facility] Comment:Reference [...] - 5.3 mmol/L 10/27/2023 1:11 PM CDT [facility] Carbon Dioxide (CO2) 27 [...] 10/27/2023 12:48 PM CDT Sixto Whalen APRN CLOTH TESTER LAB - BLOOD ORDERABL ES [facility] Acute Care Lab [address] Lab (1st floor, no room number) [place] [address], [facility] documented in this encounter Visit [...] mLs documented in this encounter Care Teams Copier Repair Technician Relationship Specialty Start Date End Date System, Provider Not In PCP - General Clinic 08/13/23 12/21/23 Alvaro Clark MD [address] [place] [id number] Assigned Surgical Provider 07/24/23 Sixto Whalen APRN CNP [address] [place] [id number] Assigned Cancer Care Provider 10/22/23 12/21/23 documented as of this encounter
--- OUTSIDE RECORDS SUMMARY | 2024-01-18 04:01 | XMS_ITS | Encounter Summary ---
Author Organization [facility] Address [address] [place] [address] Care Team Providers Care Extruding Press Operator Name Role Phone Alvaro Clark MD Unavailable System, Provider Not In Primary Care Provider Un available Sixto Whalen APRN CATALOGUE LIBRARIAN Unavailable [phone] Reason for Visit * Reason Comments Port Draw Encounter Details Date Type Department Care Team (Late st Contact Info) Description 11/10/2023 7:45 AM CDT Lab [facility] [address] [place] [phone] Ky Torres MD 420 [facility] 480 [place], [place] [address] Urothelial cancer (H) (Primary Dx) Social History [...] by provider today: Yes: Yessica Haynes PA-C Heat Regulator present during visit today: Not Applicable. Note: N/A. Intravenous Access: Labs drawn without difficulty. Implanted Port. Discharge Plan: Patient was sent to [facility] for provider appointment, followed by infusion. Felix Waller, RN documented in this encounter Plan of Treatment Upcoming Encounters Date Type Department Care Team (Late st Contact Info) Description 03/04/2024 8:00 AM CDT Oncology Visit [facility] [address] [facility] [place] [phone] Ky Torres MD [address] [address] documented as of this encounter Procedures Procedure [...] NRBCs per 100 WBC 1(H) <=0 % 8:10 AM CDT [facility] Absolute Neutrophils [...] LAB - B LOOD ORDERABLES RH [facility] Acute Care Lab [address] Lab (1st floor, no room number) [place] [address], [facility] * (ABNORMAL) CBC with platelets [...] Haynes PA-C LAB - B LOOD ORDERABLES [facility] Care Lab [address] Lab (1st floor, no room number) [place] [id number] [place] [address] * Magnesium (11/10/2023 7:33 AM CDT) Magnesium 1.7 1.7 - 2.3 mg/dL 11/10/2023 8:14 AM CDT [facility] Blood BLOOD SPECIMEN / Unknown IVAD (Port) / Unknown 11/10/2023 7:33 AM CDT 11/10/2023 7:42 AM CDT Yessica MURILLOC LAB - B LOOD ORDERABLES [facility] Acute Care Lab [address] Lab (1st floor, no room number) [place] [address] * (ABNORMAL) Comprehensive metabolic panel (11/10/2023 7:33 AM CDT) [facility] Sodium 140 135 - 145 mmol/L 11/10/2023 [...] LAB - B LOOD ORDERABLES RH LABORATORY [facility] Acute Care Lab [address] [facility] Lab (1st floor, no room number) [place] [address] documented in this encounter Visit Diagnoses [...] mLs documented in this encounter Care Teams Extruding Press Operator Relationship Specialty Start Date End Date System, Provider Not In PCP - General Clinic 08/13/23 12/21/23 Alvaro Clark MD [address] [place] [address] Assigned Surgical Provider 07/24/23 Sixto Whalen APRN CATALOGUE LIBRARIAN [address] [place] [address] Assigned Cancer Care Provider 10/22/23 12/21/23 documented as of this encounter
--- OUTSIDE RECORDS SUMMARY | 2024-01-18 04:01 | XMS_ITS | Encounter Summary ---
Author Organization [facility] Address [address] [place] [address] Care Team Providers Care Electrifier Operator Name Role Phone Alvaro Clark MD Unavailable System, Provider Not In Primary Care Provider Un available Sixto Whalen APRN ANTHROPOLOGIST PHYSICAL Unavailable [phone] Reason for Visit * Reason Comments Chemotherapy C3D1 Methotrexate + Vinblastine + Doxorubicin + Cisplatin + Pre/Post IV hydration + Neulasta On-Pro * (Routine) - Pending Review Specialty Diagnoses / Procedures Referred By Contac t Referred To Contact Infusion Therapy Diagnoses A-MVAC labs and provider day prior Procedures INFUSION 5.5 HR (330 MIN) [facility] Cancer Infusion [address] [facility] [address] [place] [address] Referral ID Status Reason Start Date Expiration Date V isits Requested Visits Authorized [id number] Pending Review 10/28/2023 10/27/2024 1 1 Encounter Details Date Type Department Care Team (Latest Contact Info) Description 10/28/2023 9:00 AM CDT Infusion Therapy Visit [facility] [address] [place] [place] [phone] Yessica Mcleod PA-C 9 [place] [address] Urothelial cancer (H) (Primary Dx) [...] visit with Sixto Whalen NP on 10/26) Vendor Quality Supervisor present during visit today: Not Applicable. Note: [...] all questions answered. AVS to patient via [employer]. Patient will return 11/09 for next appointment. Patient discharged in stable condition accompanied by: self. Departure Mode: Ambulatory. Felix Waller RN documented in this encounter Plan of Treatment Upcoming Encounters Date Type Department Care Team (Late st Contact Info) Description 03/04/2024 8:00 AM CDT Oncology Visit [address] 200 [facility] [place] [address] Ky Torres MD [address] [id number] documented as of this encounter Visit Diagnoses [...] at 70mg/m2) Tx plan 2.05 m2 Waqas Grace, GuillermoD. October 28, 2023 Possible Vesicant or Irritant depending on concentration. See extravasation policy. May require hepatic and/or renal dose or frequency adjustments. See reference link for guidelines. If this chemotherapy plan contains a taxane (paclitaxel, paclitaxel-protein bound, docetaxel, or cabazitaxel) on the same day, administer this kwethluk agent after the taxane. $New Bag 10/28/2023 [...] On Thu10/28/23 at 0930, For 1 dose, Gustine hang. For Intravenous Use Only. Fatal If Given By Other Routes. Vesicant. May require hepatic and/or renal dose or frequency adjustments. See reference link for guidelines. $New Bag 10/28/2023 10:02 AM CDT 6.2 mg documented in this encounter Care Teams Electrifier Operator Relationship Specialty Start Date End Date System, Provider Not In PCP - General Clinic 08/13/23 12/21/23 Alvaro Clark MD [address] 2[address] Assigned Surgical Provider 07/24/23 Sixto Whalen APRN CNP [address] [place] [address] Assigned Cancer Care Provider 10/22/23 12/21/23 documented as of this encounter
--- OUTSIDE RECORDS SUMMARY | 2024-01-18 04:01 | XMS_ITS | Encounter Summary ---
Author Organization [facility] Address [address] [place] [address] Care Team Providers Care Cardiopulmonary Technologist Chief Name Role Phone Alvaro Clark MD Unavailable System, Provider Not In Primary Care Provider Un available Sixto Whalen APRN PRECISION INSPECTOR Unavailable [phone] Reason for Referral * Consultation (Routine: Next available opening) - Closed Specialty Diagnoses / Procedures Referred By Contac t Referred To Contact Diagnoses 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 (H) Alvaro Clark MD 420 [facility] 394 [place] [address] Referral ID Status Reason Start Date Expiration Date Visits Re quested Visits Authorized [id number] Closed 11/20/2023 11/19/2024 1 1 Question Answer Patient Has a History of: Several comorbidities Scheduling Instructions: [facility] will call you to coordinate your care as prescribed by your provider. If you don't hear from a apprenticeship training representative within 2 business days, please call . Comments Please be aware that coverage of these services is subject to the terms and limitations of your health insurance plan. Call member services at your health plan with any benefit or coverage questions. [facility] will call you to coordinate your care as prescribed by your provider. If you don't hear from a apprenticeship training representative within 2 business days, please call . Encounter Details Date Type Department Care Team ([facility] st Contact Info) Description 11/20/[address] [facility] Urolog[address] 4th [place] [phone] Alvaro Clark MD [address] [place] [address] 7[address]65 Urothelial carcinoma of bladder with invasion of [...] Upcoming Encounters Date Type Department Care Team ([facility] st Contact Info) Description 03/04/2024 8:00 AM CDT Oncology Visit [address] [facility] [place] [address] Ky Torres MD [address] [place] [address] [phone] Scheduled Referrals Name Type Priority Associated Diagnoses Orde r Schedule PAC Visit Referral (For [facility] Only) Referral Routine: Next available opening 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 (H) Expected: 11/20/2023 (Approximate), Expires: 11/19/2024 documented as of this encounter Visit Diagnoses Diagnosis 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 (H)- Primary documented in this encounter Care Teams Cardiopulmonary Technologist Chief Relationship Specialty Start Date End Date System, Provider Not In PCP - General Clinic 08/13/23 12/21/23 Alvaro Clark MD [address] [place] [address] Assigned Surgical Provider 07/24/23 Sixto Whalen APRN PRECISION INSPECTOR [address] [place] [address] Assigned Cancer Care Provider 10/22/23 12/21/23 documented as of this encounter
--- OUTSIDE RECORDS SUMMARY | 2024-01-18 04:01 | XMS_ITS | Encounter Summary ---
Author Organization [facility] Address [address] [place] [address] Care Team Providers Care Extern Name Role Phone Alvaro Clark MD Unavailable System, Provider Not In Primary Care Provider Un available Sixto Whalen APRN ANALYST Unavailable Reason for Referral * Diagnostic Imaging Ultrasound (Routine) - Pending Review Specialty Diagnoses / Procedures Referred By Contac t Referred To Contact Radiology. Diagnoses Left leg swelling Procedures US Lower Extremity Venous Duplex Left Yessica Mcleod PA-C [address] [place] [address] Fax: [phone] Referral ID Status Reason Start Date Expiration Date V isits Requested Visits Authorized [id number] Pending Review 11/10/2023 11/09/2024 1 1 Reason for Visit * Reason Comments Oncology Clinic Visit Encounter Details Date Type Department Care Team (Latest Contact Info) Description 11/10/2023 8:00 AM CDT Oncology Visit [address] 200 [facility] [place] [phone] Yessica Mcleod PA-C [address] [place] [address] Urothelial cancer (H) (Primary Dx); Left leg [...] initially had urinary retention wasseen in the [place] in May 2023. He saw urology [...] bruising. PMHx and Social Hx reviewed per Aniika. Medications: Current Outpatient Medications Medication Sig Dispense [...] cortisone to the area. Chart documentation with [employer] Voice recognition Software. Although reviewed after completion, some words and grammatical errors may remain. 24 minutes spent on the date of the encounter doing chart review, review of test results, interpretation of tests, patient visit, and documentation Yessica Cheng PA-C Hematology/Oncology [facility] documented in this encounter Nursing Notes [...] not needed today. Pharmacy name entered into Aniika: [place], [place] - [address] [facility] Frailty Screening: Is the patient here for a new oncology consult visit in cancer care? 2. No Clinical concerns: f/u Lori Portillo CMA documented in this encounter Plan of Treatment Upcoming Encounters Date Type Department Care Team (Late st Contact Info) Description 03/04/2024 8:00 AM CDT Oncology Visit [address] 200 [facility] [place] [address] Ky Torres MD [address] [address] documented as of this encounter Results * [...] left lower extremity. JASMIN MCCLAIN DO Yessica LAU US ORDERABLES documented in this encounter Visit Diagnoses Diagnosis Urothelial cancer (H)- Primary Malignant neoplasm of other specified sites of urinary organs Left leg swelling Left leg swelling documented in this encounter Care Teams Extern Relationship Specialty Start Date End Date System, Provider Not In PCP - General Clinic 08/13/23 12/21/23 Alvaro Clark MD [address] [place] [address] [id number] Assigned Surgical Provider 07/24/23 Sixto Whalen APRN CNP 9 [place], [place] 783[address] Assigned Cancer Care Provider 10/22/23 12/21/23 documented as of this encounter
--- OUTSIDE RECORDS SUMMARY | 2024-01-18 04:01 | XMS_ITS | Encounter Summary ---
Author Organization [facility] Address [address] [place] [address] Care Team Providers Care Orthopedically Impaired Teacher Name Role Phone Alvaro Clark MD Unavailable System, Provider Not In Primary Care Provider Un available Sixto Whalen APRN MERCHANDISE SUPERVISOR Unavailable [phone] Reason for Referral * Diagnostic Imaging Ultrasound (Routine) - Pending Review Specialty Diagnoses / Procedures Referred By Contac t Referred To Contact Radiology. Diagnoses Left leg swelling Procedures US Lower Extremity Venous Duplex Left Yessica Mcleod PA-C 908 [place] [address] Fax: [phone] Referral ID Status Reason Start Date Expiration Date V isits Requested Visits Authorized [id number] Pending Review 11/10/2023 11/09/2024 1 1 Reason for Visit * Diagnostic Imaging Ultrasound (Routine) - Pending Review Specialty Diagnoses / Procedures Referred By Contac t Referred To Contact Radiology. Diagnoses Left leg swelling Procedures US Lower Extremity Venous Duplex Left Yessica Mcleod PA-C 027 [place] [address] Fax: [phone] Referral ID Status Reason Start Date Expiration Date V isits Requested Visits Authorized [id number] Pending Review 11/10/2023 11/09/2024 1 1 Encounter Details Date Type Department Care Team (Latest Contact Info) Description 11/10/2023 1:48 PM CDT - 11/10/2023 11:59 PM CDT Hospital Encounter [facility] [address] [facility] [address] [place] [address] Yessica Mcleod PA-C [address] [place] [address] Left leg swelling Discharge Disposition: Home or [...] AM CDT Oncology Visit [facility] [address] [place] [address] [facility] [place] [address] Ky Torres MD 420 [facility] 480 [place], [place] [address] documented as of this encounter Procedures Procedure [...] swelling documented in this encounter Care Teams Orthopedically Impaired Teacher Relationship Specialty Start Date End Date System, Provider Not In PCP - General Clinic 08/13/23 12/21/23 Alvaro Clark MD [address] [place] [address] [phone] Assigned Surgical Provider 07/24/23 Sixto Whalen APRN [facility] [address] [place] [address] Assigned Cancer Care Provider 10/22/23 12/21/23 documented as of this encounter
--- OUTSIDE RECORDS SUMMARY | 2024-01-18 04:01 | XMS_ITS | Encounter Summary ---
Author Organization [facility] Address [address] [place] [address]. [place] [address] Care Team Providers Care Vp Scientific Affairs Name Role Phone Alvaro Clark MD Unavailable System, Provider Not In Primary Care Provider Un available Sixto Whalen APRN DIRECTOR OF VIDEO ANALYTICS Unavailable [phone] Encounter Details Date Type Department Care Team (Late st Contact Info) Description 11/25/2023 10:56 AM CDT - 11/25/2023 2:17 PM CDT Hospital Encounter [facility] [address] [facility] [phone] Non-Fv Credentialed Provider, Radiology Thuan Rodriguez MD 420 [facility] 292 [place], [place] [address] Discharge Disposition: Home or Self Care Social [...] 03/04/2024 8:00 AM CDT Oncology Visit [address] [facility] [place] [address] Ky Torres MD 420 [facility] 480 [place], [place] [address] documented as of this encounter Visit Diagnoses [...] of the CVC Implanted port, Starting on 11/25/23 at 1137, 10 mL per port lumen [...] lumen documented in this encounter Care Teams Vp Scientific Affairs Relationship Specialty Start Date End Date System, Provider Not In PCP - General Clinic 08/13/23 12/21/23 Alvaro Clark MD [address] [address] Assigned Surgical Provider 07/24/23 Sixto Whalen APRN CNP 909 [place] [address] Assigned Cancer Care Provider 10/22/23 12/21/23 documented as of this encounter
--- OUTSIDE RECORDS SUMMARY | 2024-01-18 04:01 | XMS_ITS | Encounter Summary ---
Author Organization [facility] Address [address] [place] [address] Care Team Providers Care Apple Picking Supervisor Name Role Phone Alvaro Clark MD Unavailable System, Provider Not In Primary Care Provider Un available Sixto Whalen APRN STONE SPREADER OPERATOR Unavailable [phone] Encounter Details Date Type Department Care Team (Late st Contact Info) Description 10/22/2023 Orders Only [facility]5 [place] [phone] Luma Malcolm, [facility] Social History Tobacco Use Types Packs/Day Years [...] Description 03/04/2024 8:00 AM CDT Oncology Visit [facility] [address] [place] [address] [facility] [place] [phone] Ky Torres MD 420 [facility] 480 [place], [place] [address] documented as of this encounter Visit Diagnoses Not on filedocumented in this encounter Care Teams Apple Picking Supervisor Relationship Specialty Start Date End Date System, Provider Not In PCP - General Clinic 08/13/23 12/21/23 Alvaro Clark MD [address] [place] [address] Assigned Surgical Provider 07/24/23 Sixto Whalen APRN CNP [address] [place] [address] Assigned Cancer Care Provider 10/22/23 12/21/23 documented as of this encounter
--- OUTSIDE RECORDS SUMMARY | 2024-01-18 04:01 | XMS_ITS | Encounter Summary ---
Author Organization [facility] Address [address] [place] [address] Care Team Providers Care Cloud Engineer Name Role Phone Alvaro Clark MD Unavailable System, Provider Not In Primary Care Provider Un available Ky Torres MD Unavailable [phone] Reason for Visit * Diagnostic Imaging PET (Routine) - Pending Review Specialty Diagnoses / Procedures Referred By Contac t Referred To Contact Radiology. 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) Procedures PET Oncology (Eyes to Thighs) Ky Torres MD [address] [place] [address] Referral ID Status Reason Start Date Expiration Date V isits Requested Visits Authorized [id number] Pending Review 10/20/2023 10/19/2024 1 1 Encounter Details Date Type Department Care Team (Latest Contact Info) Description 10/21/2023 9:00 AM CDT Ancillary Procedure M [facility] 2020 [place], [place] [address] Ky Torres MD [address] [place] [address] Urothelial cancer (H); Malignant neoplasm of [...] Description 03/04/2024 8:00 AM CDT Oncology Visit [facility] [address] [place] [address] 200 [facility] [place] [address] Ky Torres MD 420 [facility] 480 [place], [place] 9[address] documented as of this encounter Procedures Procedure Name Priority Date/Time Associated Diagnosis Comments PET ONCOLOGY (EYES TO THIGHS) Routine 10/21/2023 10:57 AM CDT Urothelial cancer (H) 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) GLUCOSE WHOLE BLOOD POCT Routine 10/21/2023 8:50 AM CDT Urothelial cancer (H) 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) [place] COLLECTION VENOUS BLOOD VENIPUNCTURE Routine 10/21/2023 8:38 AM CDT Urothelial cancer (H) 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) documented in this encounter Results * PET Oncology (Eyes to Thighs) (10/21/2023 10:57 AM CDT) Anatomical Region Laterality Modality Whole Body, SUBRAD CT BODY, [facility] Positron Emission Tomography (PET) Impressions 10/22/2023 [...] mLs documented in this encounter Care Teams Cloud Engineer Relationship Specialty Start Date End Date System, Provider Not In PCP - General Clinic 08/13/23 12/21/23 Alvaro Clark MD 420 [facility] 394 [place] [address] Assigned Surgical Provider 07/24/23 Ky Torres MD [address] [address] Assigned Cancer Care Provider 09/22/23 10/21/23 documented as of this encounter
--- OUTSIDE RECORDS SUMMARY | 2024-01-18 04:01 | XMS_ITS | Encounter Summary ---
Author Organization [facility] Address [address] [place] [address] Care Team Providers Care Cavity Pump Operator Name Role Phone Alvaro Clark MD Unavailable System, Provider Not In Primary Care Provider Un available Sixto Whalen APRN TAPE LIBRARIAN Unavailable Reason for Visit * Reason Onset Date Comments Schedule Surgery 11/26/2023 Encounter Details Date Type Department Care Team (Late st Contact Info) Description 11/26/2023 Telephone [facility] Clinic [address] 4th [place] [address] Alvaro Clark MD [address] [facility] [address] [facility] 394 [place] [address] Schedule Surgery Social History Tobacco [...] Boswell RN - 12/18/2023 9:57 AM CDT Manager Club called patient this morning to complete Pre-Op Teaching for surgery scheduled with Dr. Clark on 12/22/2023. Manager Club discussed that he did not receive surgical packet in mail (per note from Jennifer Griggs on 11/26/23-mailed per USPS on 11/26/23). Manager Club discussed that Pre-Op Teaching was completed on 12/11/23. -Pre Op exam completed on 12/11/23 with Rizwana Tejeda APRN CNP. -Preparing for Surgery Instructions reviewed with patient per Marysol Hunter RN (Patient Instruction Note). Patient confirms he received copy of these instructions. Manager Club reviewed Preparing for Surgery Instructions with Patient: [...] visit is not scheduled at this time. Manager Club will send message to scheduling department to schedule post op visit. Patient will talk with Dr. Clark morning of surgery regarding questions regarding plan for voidingafter surgery (Neobladder or Ileal Conduit). Manager Club instructed patient to contact our office if any further questions or concerns prior to scheduled surgery on 12/22/2023. Evette Boswell RN, BSN, OCN on 12/18/2023 at 10:13 AM * Telephone Encounter - Indu Jennifer - 11/26/2023 11:21 AM CDT Called patient to discuss surgery scheduling with Dr. Clark. Spoke with patient and scheduled surgery with Dr. Clark for 12/22/23 at [place]. H&P scheduled with PAC scheduled for 12/08/23 at 9:00 AM. Patient is aware they will get their arrival time for surgery at PAC appointment. Per provider, 10 or 21 days postop for postop visit, stent removal and/or cath removal based on thetype of diversion patient still undecided. Manager Club will mail surgery packet via USPS on 11/26/23. The patient has no further questions regarding surgery at this time. Patient has writers call back number [phone]. Jennifer Griggs on 11/26/2023 at 11:22 AM documented in this encounter Plan of Treatment Upcoming Encounters Date Type Department Care Team (Late st Contact Info) Description 03/04/2024 8:00 AM CDT Oncology Visit [address] [facility] [address] Ky Torres MD 420 [facility] 480 [place], [place] [address] documented as of this encounter Visit Diagnoses Not on filedocumented in this encounter Care Teams Cavity Pump Operator Relationship Specialty Start Date End Date System, Provider Not In PCP - General Clinic 08/13/23 12/21/23 Alvaro Clark MD 420 [facility] 394 [place], [place] [address] Assigned Surgical Provider 07/24/23 Sixto Whalen APRN TAPE LIBRARIAN 909 [place], [place] [address] Assigned Cancer Care Provider 10/22/23 12/21/23 documented as of this encounter
--- OUTSIDE RECORDS SUMMARY | 2024-01-18 04:01 | XMS_ITS | Encounter Summary ---
Author Organization [place] Address [address] [place] [address] Care Team Providers Care Furnace Loader Name Role Phone Alvaro Clark MD Unavailable System, Provider Not In Primary Care Provider Un available Sixto Whalen APRN BULB GROWER Unavailable [phone] Reason for Visit * Reason Comments Oncology Clinic Visit Encounter Details Date Type Department Care Team ([facility] st Contact Info) Description 11/20/2023 11:00 AM CDT Office Visit [address] [place] 200 [facility] [place] [phone] Alvaro Clark MD 420 [facility] 394 [place] [address] Urothelial cancer (H) (Primary Dx) [...] Clark MD Department of Urology [facility] ER documented in this encounter Nursing Notes [...] needed today. Pharmacy name entered into [facility]: [place], [place] - [address] [facility] Frailty Screening: Is the patient here for a new oncology consult visit in cancer care? 2. No Clinical concerns: f/u Lori Portillo CMA documented in this encounter Plan of Treatment Upcoming Encounters Date Type Department Care Team (Late st Contact Info) Description 03/04/2024 8:00 AM CDT Oncology Visit [address] [place] 200 [facility] [place] [address] Ky Torres MD 420 [facility] 480 [place], [place] [address] documented as of this encounter Visit Diagnoses Diagnosis Urothelial cancer (H)- Primary Malignant neoplasm of other specified sites of urinary organs documented in this encounter Care Teams Furnace Loader Relationship Specialty Start Date End Date System, Provider Not In PCP - General Clinic 08/13/23 12/21/23 Alvaro Clark MD 420 [facility] 394 [place], [place] 3114[address] Assigned Surgical Provider 07/24/23 Sixto Whalen APRN BULB GROWER 909 [place], [place] [address] Assigned Cancer Care Provider 10/22/23 12/21/23 documented as of this encounter
--- OUTSIDE RECORDS SUMMARY | 2024-01-18 04:01 | XMS_ITS | Encounter Summary ---
Author Organization [facility] Address [address] [place] [address] Care Team Providers Care Cash Room Clerk Name Role Phone Alvaro Clark MD Unavailable System, Provider Not In Primary Care Provider Un available Sixto Whalen APRN JIG GRINDER SET UP OPERATOR Unavailable [phone] Reason for Visit * Reason Comments Chemotherapy MVAC (cycle 4 day 1) * Treatment and Therapy Plans (Routine) - Closed Specialty Diagnoses / Procedures Referred By Virgil ca Referred To Contact Infusion Therapy Diagnoses Urothelial cancer (H) Procedures ZZC INJ PALONOSETRON HCL, 25MCG ZZC CISPLATIN 10 MG INJECITON ZZC VINBLASTINE SULFATE INJ, 1 MG ZZPR INJ PEGFILGRAST EX BIO 0.5MG ZZC FOSAPREPITANT INJECTION 1 MG ZZC DOXORUBICIN HCL INJECTION, 10MG Ky Torres MD [address] [facility] 480 [place] [address] Rh Cancer Infus [facility] [place] [address] [address] [place] [address] Referral ID Status Reason Start Date Expiration Date Visits Re quested Visits Authorized [id number] Closed 09/06/2023 03/26/2024 100 1 Encounter Details Date Type Department Care Team (Late st Contact Info) Description 11/10/2023 8:30 AM CDT Infusion Therapy Visit [facility] [place] [address] [address] [place] [address] Ky Torres MD 420 [facility] 480 [place], [place] [address] Urothelial cancer (H) (Primary Dx) Social History [...] removal, you must report this information. Call [phone] during business hours. Refer to the written information given to you for additional questions. documented in this encounter Progress Notes * Celena Devlin RN - 11/10/2023 8:30 AM CDT Infusion Nursing Note: Oleg Richard presents today for MVAC (cycle 4 day 1). Patient seen by provider today: Yes: STACEY Zuluaga Bush And Vine Farmer Fruit Crops present during visit today: Not Applicable. Note: pt verified that he will order picker/assembler his dex. Intravenous Access: Implanted Port. Treatment [...] used: Yes ONPRO injector device Lot number: [id number] Patient education included: what patient can expect [...] 8:00 AM CDT Oncology Visit [facility] [address] [place] 200 [facility] [place] [address] Ky Torres MD 420 [facility] [address] [place] [address] documented as of this encounter Visit Diagnoses [...] cabazitaxel) on the same day, administer this [employer] agent after the taxane. $New Bag 11/10/2023 [...] On Thu11/10/23 at 0930, For 1 dose, Rosser hang. For Intravenous Use Only. Fatal If Given By Other Routes. Vesicant. May require hepatic and/or renal dose or frequency adjustments. See reference link for guidelines. $New Bag 11/10/2023 10:02 AM CDT 6.2 mg documented in this encounter Care Teams Cash Room Clerk Relationship Specialty Start Date End Date System, Provider Not In PCP - General Clinic 08/13/23 12/21/23 Alvaro Clark MD [address] [address] Assigned Surgical Provider 07/24/23 Sixto Whalen APRN CNP [address] [place] [id number] Assigned Cancer Care Provider 10/22/23 12/21/23 documented as of this encounter
--- OUTSIDE RECORDS SUMMARY | 2024-01-18 04:01 | XMS_ITS | Encounter Summary ---
Author Organization [facility] Address [address] [place] [address]. [place] [address] Care Team Providers Care Information Services Consultant Name Role Phone Alvaro Clark MD Unavailable System, Provider Not In Primary Care Provider Un available Ky Torres MD Unavailable [phone] Reason for Referral * Diagnostic Imaging PET (Routine) - Pending Review Specialty Diagnoses / Procedures Referred By Contac t Referred To Contact Radiology. 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) Procedures PET Oncology (Eyes to Thighs) Ky Torres MD [address] [place] [address] Referral ID Status Reason Start Date Expiration Date V isits Requested Visits Authorized [id number] Pending Review 10/20/2023 10/19/2024 1 1 Encounter Details Date Type Department Care Team (Late st Contact Info) Description 10/20/2023 Orders Only [facility] - Cancer Care Service Line [address] [place] [phone] Ky Torres MD [address] [place] [address] Urothelial cancer (H) (Primary Dx); Malignant [...] Description 03/04/2024 8:00 AM CDT Oncology Visit [facility] [address] [place] [address] [place] 200 [facility] [place] [address] Ky Torres MD [address] [address] documented as of this encounter Results * PET Oncology (Eyes to Thighs) (10/21/2023 10:57 AM CDT) Anatomical Region Laterality Modality Whole Body, SUBRAD CT BODY, [facility] NUC MED Positron Emission Tomography (PET) Impressions [...] bladder documented in this encounter Care Teams Information Services Consultant Relationship Specialty Start Date End Date System, Provider Not In PCP - General Clinic 08/13/23 12/21/23 Alvaro Clark MD [address] [place] [address] 394 [place] [address] Assigned Surgical Provider 07/24/23 Ky Torres MD 420 [facility] 480 [place] [address] Assigned Cancer Care Provider 09/22/23 10/21/23 documented as of this encounter
--- OUTSIDE RECORDS SUMMARY | 2024-01-18 04:01 | XMS_ITS | Encounter Summary ---
Author Organization [place] Address [address] [place] [address] Care Team Providers Care Edger Hand Name Role Phone Alvaro Clark MD Unavailable System, Provider Not In Primary Care Provider Un available Sixto Whalen APRN RAILROAD BAGGAGE PORTER Unavailable [phone] Encounter Details Date Type Department Care Team [...] Description 03/04/2024 8:00 AM CDT Oncology Visit [facility] [address] [place] 200 [facility] [place] [address] Ky Torres MD [address] [address] documented as of this encounter Visit Diagnoses Not on filedocumented in this encounter Care Teams Edger Hand Relationship Specialty Start Date End Date System, Provider Not In PCP - General Clinic 08/13/23 12/21/23 Alvaro Clark MD 420 [facility] 394 [place] [address] Assigned Surgical Provider 07/24/23 Sixto Whalen APRN CNP [address] [place] [address] Assigned Cancer Care Provider 10/22/23 12/21/23 documented as of this encounter
--- OUTSIDE RECORDS SUMMARY | 2024-01-18 04:01 | XMS_ITS | Encounter Summary ---
Author Organization [place] Address [address] [place] [address] Care Team Providers Care Stone Hand Name Role Phone Alvaro Clark MD Unavailable System, Provider Not In Primary Care Provider Un available Ky Torres MD Unavailable [phone] Encounter Details Date Type Department Care Team [...] Description 03/04/2024 8:00 AM CDT Oncology Visit [facility] [address] [place] 200 [facility] [place] [address] Ky Torres MD 420 [facility] 480 [place], [place] [address] documented as of this encounter Visit Diagnoses Not on filedocumented in this encounter Care Teams Stone Hand Relationship Specialty Start Date End Date System, Provider Not In PCP - General Clinic 08/13/23 12/21/23 Alvaro Clark MD 420 [facility] 394 [place], [place] [address] Assigned Surgical Provider 07/24/23 Ky Torres MD 420 [facility] 480 [place], [place] [address] Assigned Cancer Care Provider 09/22/23 10/21/23 documented as of this encounter
--- OUTSIDE RECORDS SUMMARY | 2024-01-18 04:01 | XMS_ITS | Encounter Summary ---
Author Organization [place] Address [address] [place] [address] Care Team Providers Care Milk Hauler Name Role Phone Alvaro Clark MD Unavailable System, Provider Not In Primary Care Provider Un available Sixto Whalen APRN EMERGENCY DEPARTMENT COORDINATOR Unavailable [phone] Reason for Referral * Diagnostic Imaging CT Scan (Routine) - Closed Specialty Diagnoses / Procedures Referred By Contac t Referred To Contact Radiology. 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 [place] [id number] Referral ID Status Reason Start Date Expiration Date Visits Re quested Visits Authorized [id number] Closed 11/18/2023 11/17/2024 1 1 Reason for Visit * Diagnostic Imaging CT Scan (Routine) - Closed Specialty Diagnoses / Procedures Referred By Contac t Referred To Contact Radiology. 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 [place] [phone] Referral ID Status Reason Start Date Expiration Date Visits Re quested Visits Authorized [id number] Closed 11/18/2023 11/17/2024 1 1 Encounter Details Date Type Department Care Team (Late st Contact Info) Description 11/25/2023 10:58 AM CDT - 11/25/2023 11:59 PM CDT Hospital Encounter [facility] [address] [place] [address] Ky Torres MD 420 [facility] 480 [place] [address] Non-Fv Credentialed Provider, Radiology Malignant [...] AM CDT Oncology Visit [facility] [address] [place] [address] [place] 200 [facility] [place] [address] Ky Torres MD [address] [place] [address] documented as of this encounter Procedures Procedure [...] previous. 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 $Given 11/25/2023 11:53 AM CDT 67 mLs documented in this encounter Care Teams Milk Hauler Relationship Specialty Start Date End Date System, Provider Not In PCP - General Clinic 08/13/23 12/21/23 Alvaro Clark MD 420 [facility] 394 [place] [address] Assigned Surgical Provider 07/24/23 Sixto Whalen APRN CNP [address] [place], [place] [address] Assigned Cancer Care Provider 10/22/23 12/21/23 documented as of this encounter
--- OUTSIDE RECORDS SUMMARY | 2024-01-18 04:01 | XMS_ITS | Encounter Summary ---
Author Organization [place] Address [address] [place] [address]. [place] [address] Care Team Providers Care Assistant Food Service Director Name Role Phone Alvaro Clark MD Unavailable System, Provider Not In Primary Care Provider Un available Sixto Whalen GRAPHIC ART TECHNICIAN CARTOGRAPHY SUPERVISOR Unavailable [phone] No Ref-Primary, Physician Primary Care Provider Yessica Mcleod PA-C Unavailable Bhavin Gardner Primary Care Provider [phone] Encounter Details Date Type Department Care Team (Late st Contact Info) Description 11/17/2023 MyC Medical Advice [facility] [place] [address] [address], [place] [address] [facility] [place] [address] Sixto Whalen APRN CARTOGRAPHY SUPERVISOR 9[address] [place], [place] [address] Social History Tobacco Use Types Packs/Day Years [...] Description 03/04/2024 8:00 AM CDT Oncology Visit [facility] [address] [place] 200 [facility] [place] [place] [address] Ky Torres MD 420 [facility] 480 [place], [place] [address] documented as of this encounter Visit Diagnoses Not on filedocumented in this encounter Care Teams Assistant Food Service Director Relationship Specialty Start Date End Date System, Provider Not In PCP - General Clinic 08/13/23 12/21/23 No Ref-Primary, Physician PCP - General 12/22/23 12/27/23 Bhavin Gardner 1400 [place] [address] PCP - General Family Medicine 12/28/23 Alvaro Clark MD 420 [facility] 394 [place], [place] [address] Assigned Surgical Provider 07/24/23 Sixto Whalen APRN CNP [address] [place] [address] Assigned Cancer Care Provider 10/22/23 12/21/23 Yessica Mcleod PA-C [address] [place] [address]275 Assigned Cancer Care Provider 12/22/23 documented as of this encounter
--- OUTSIDE RECORDS SUMMARY | 2024-01-18 04:01 | XMS_ITS | Encounter Summary ---
Author Organization [facility] Address [address] [place] [address] Care Team Providers Care Data Librarian Name Role Phone Alvaro Clark MD Unavailable System, Provider Not In Primary Care Provider Un available Sixto Whalen APRN RETENTION SPECIALIST Unavailable [phone] Encounter Details Date Type Department Care Team [...] Oncology Visit [facility] [address] [place] [address] [facility] [place] [address] Ky Torres MD [address] [address] documented as of this encounter Visit Diagnoses Not on filedocumented in this encounter Care Teams Data Librarian Relationship Specialty Start Date End Date System, Provider Not In PCP - General Clinic 08/13/23 12/21/23 Alvaro Clark MD 420 [facility] 394 [place] [address] Assigned Surgical Provider 07/24/23 Sixto Whalen APRN CNP [address] [place] [address] Assigned Cancer Care Provider 10/22/23 12/21/23 documented as of this encounter
--- OUTSIDE RECORDS SUMMARY | 2024-01-18 04:02 | XMS_ITS | Encounter Summary ---
Author Organization [place] Address [address] [place] [address] Care Team Providers Care Equal Opportunity Representative Name Role Phone Dalila Arrieta Unavailable [phone] System, Provider Not In Primary Care Provider Un available Alvaro Clark MD Unavailable System, Provider Not In Primary Care Provider Un available Ky Torres MD Unavailable [phone] Sixto Whalen APRN PARTY COORDINATOR Unavailable [phone] No Ref-Primary, Physician Primary Care Provider Yessica Mcleod PA-C Unavailable Bhavin Gardner Primary Care Provider [phone] Reason for Visit * Reason Onset Date Comments Patient Request 06/15/2023 Encounter Details Date Type Department Care Team (Late st Contact Info) Description 06/15/2023 [facility] [address] [place] [address] Dalila Arrieta PA [address] [place] [address] [place] [address] Patient Request Social History Tobacco [...] Pia Caceres - 06/15/2023 10:22 AM CST [facility] Call Center Phone Message May a detailed message be left on voicemail: yes Reason for Call: Other: Pt razia Conway calling regarding pt upcoming appt for retention. Zoraida states pt is requesting a morning appt if possible. Please call Zoraida Action Taken: Message routed to: Other: Uro Travel Screening: Not Applicable RICT SALES MANAGER documented in this encounter Plan of Treatment Upcoming Encounters Date Type Department Care Team (Late st Contact Info) Description 03/04/2024 8:00 AM CDT Oncology Visit [address] [place] 200 [facility] [place] [address] Ky Torres MD [address] [place] [address] documented as of this encounter Visit Diagnoses Not on filedocumented in this encounter Care Teams Equal Opportunity Representative Relationship Specialty Start Date End Date System, Provider Not In PCP - General Clinic 07/20/23 07/20/23 System, Provider Not In PCP - General Clinic 08/13/23 12/21/23 No Ref-Primary, Physician PCP - General 12/22/23 12/27/23 Bhavin Gardner 1400 [place] [address] PCP - General Family Medicine 12/28/23 Dalila Arrieta PA [address] [place] [address] Urology [place], [place] [phone] Assigned Surgical Provider 07/03/23 Alvaro Clark MD [address] [place] [address] 394 [place], [place] [phone] Assigned Surgical Provider 07/24/23 Ky Torres MD [address] [place] [address]1825 Assigned Cancer Care Provider 09/22/23 10/21/23 Sixto Whalen APRN CNP [address] [place] [address] [phone] Assigned Cancer Care Provider 10/22/23 12/21/23 Yessica Mcleod, LIDIAC [address] [place] [address]995 Assigned Cancer Care Provider 12/22/23 documented as of this encounter
--- OUTSIDE RECORDS SUMMARY | 2024-01-18 04:02 | XMS_ITS | Encounter Summary ---
Author Organization [place] Address [address] [place] [address] Care Team Providers Care Judicial Clerk Name Role Phone Alvaro Clark MD Unavailable System, Provider Not In Primary Care Provider Un available Ky Torres MD Unavailable [phone] Sixto Whalen APRN ENVIRONMENTAL SERVICES ASSOCIATE Unavailable [phone] No Ref-Primary, Physician Primary Care Provider Yessica Mcleod PA-C Unavailable Bhavin Gardner Primary Care Provider [phone] Encounter Details Date Type Department Care Team (Late st Contact Info) Description 07/24/2023 MyC Medical Advice [facility] U[facility] Clinic [address] 4th [place] [address] Diamond Conway RN Social History Tobacco Use Types Packs/Day [...] Description 03/04/2024 8:00 AM CDT Oncology Visit [facility] [place] [address] [place] [address] [address] [facility] [place] [place] [address] Ky Torres MD [address] [phone] documented as of this encounter Visit Diagnoses Not on filedocumented in this encounter Care Teams Judicial Clerk Relationship Specialty Start Date End Date System, Provider Not In PCP - General Clinic 08/13/23 12/21/23 No Ref-Primary, Physician PCP - General 12/22/23 12/27/23 B[place] [address] PCP - General Family Medicine 12/28/23 Alvaro Clark MD [address] [place] [address] [id number] Assigned Surgical Provider 07/24/23 Ky Torres MD [address] 987[address] Assigned Cancer Care Provider 09/22/23 10/21/23 Sixto Whalen APRN CNP [address] [place] [address] 071215 Assigned Cancer Care Provider 10/22/23 12/21/23 Yessica Mcleod PAJannetC 909 [place] [address] Assigned Cancer Care Provider 12/22/23 documented as of this encounter
--- OUTSIDE RECORDS SUMMARY | 2024-01-18 04:02 | XMS_ITS | Encounter Summary ---
Author Organization [facility] Address [address] [place] [address] Care Team Providers Care Youth Support Worker Name Role Phone Alvaro Clark MD Unavailable System, Provider Not In Primary Care Provider Un available Ky Torres MD Unavailable [phone] Reason for Visit * Reason Comments Port Draw CBC, CMP, Mag Encounter Details Date Type Department Care Team (Late st Contact Info) Description 10/12/2023 12:[address] [facility] C[facility] [address] [place] [address] [place] [phone] Yessica Mcleod, RONALD [address] [place] [address] Urothelial cancer (H) (Primary Dx) Social History [...] seen by provider today: Yes: Sixto Whalen MANAGER HOUSE this afternoon Senior Cyber Security Analyst present during visit today: Not Applicable. Note: N/A. Intravenous Access: Labs drawn without difficulty. Implanted Port. Discharge Plan: Patient was sent home for MANAGER HOUSE phone appointment; will return for infusion tomorrow. Sarita Villaseñor, RN documented in this encounter Plan of Treatment Upcoming Encounters Date Type Department Care Team (Late st Contact Info) Description 03/04/2024 8:00 AM CDT Oncology Visit [facility] [address] [place] [address] 200 [facility] [place] [address] yK Torres MD 420 [facility] 480 [place] [address] documented as of this encounter [...] 10/12/2023 12:09 PM CDT Sixto Whalen APRN JAVA LEAD LAB - BLOOD ORDERABL ES [facility] LAB[facility]AT[facility] Acute Care Lab [address] Lab (1st floor, no room number) [place] [address], [facility] * (ABNORMAL) CBC with platelets and differential [...] 10/12/2023 12:09 PM CDT Sixto Whalen APRN JAVA LEAD LAB - BLOOD ORDERABL ES LABORATORY [facility] Lab [address] [facility] Lab (1st floor, no room number) [address] * Magnesium (10/12/2023 11:59 AM CDT) Magnesium 1.9 1.7 - 2.3 mg/dL 10/12/2023 12:36 PM CDT [facility] LABORATORY Blood VENOUS LINE / Unknown IVAD (Port) / Unknown 10/12/2023 11:59 AM CDT 10/12/2023 12:09 PM CDT Sixto Whalen APRN, CNP LAB - BLOOD ORDERABL ES Performing Organization Address [facility]/ZIP Co de Phone Number [facility] Lab [address] Lab (1st floor, no room number) [place] [phone] * (ABNORMAL) Comprehensive metabolic panel (10/12/2023 11:59 AM CDT) Sodium 142 135 - 145 mmol/L 10/12/2023 12:36 PM CDT [facility] LAB[facility]ORY Comment:Reference [...] - 5.3 mmol/L 10/12/2023 12:36 PM CDT [facility] LAB[facility] Carbon Dioxide (CO2) 27 22 - 29 mmol/L 10/12/2023 12:36 PM CDT [facility] LAB[facility] Anion Gap 11 7 - 15 mmol/L 10/12/2023 12:36 PM CDT [facility] LAB[facility] Urea Nitrogen 12.8 8.0 - 23.0 mg/dL 10/12/2023 12:36 PM CDT [facility] LAB[facility] Creatinine 0.72 0.67 - 1.17 mg/dL 10/12/2023 12:36 PM CDT [facility] LAB[facility] GFR Estimate >90 >60 mL/min/1. 73m2 10/12/2023 12:36 PM CDT [facility] LAB[facility] Calcium 8.6(L) 8.8 - 10.2 mg/dL 10/12/2023 12:36 PM CDT [facility] LAB[facility] Chloride 104 98 - 107 mmol/L 10/12/2023 12:36 PM CDT [facility] LAB[facility] Glucose 82 70 - 99 mg/dL 10/12/2023 12:36 PM CDT [facility] LAB[facility] Alkaline Phosphatase 114 40 - 150 U/L 10/12/2023 12:36 PM CDT RH LABORATORY [...] - 45 U/L 10/12/2023 12:36 PM CDT RH LABORATORY [...] 10/12/2023 12:09 PM CDT Sixto Whalen APRN JAVA LEAD LAB - BLOOD ORDERABL ES LABORATORY [facility] Lab [address] [facility] Lab (1st floor, no room number) [place] [address], [facility] documented in this encounter Visit Diagnoses Diagnosis [...] Units documented in this encounter Care Teams Youth Support Worker Relationship Specialty Start Date End Date System, Provider Not In PCP - General Clinic 08/13/23 12/21/23 Alvaro Clark MD 420 [facility] [address] [place] [address] Assigned Surgical Provider 07/24/23 Ky Torres MD 420 [facility] 480 [place] [address] Assigned Cancer Care Provider 09/22/23 10/21/23 documented as of this encounter
--- OUTSIDE RECORDS SUMMARY | 2024-01-18 04:02 | XMS_ITS | Encounter Summary ---
Author Organization [facility] Address [address] [place] [address]. [place] [address] Care Team Providers Care Lens Examiner Name Role Phone Alvaro Clark MD Unavailable System, Provider Not In Primary Care Provider Un available Ky Torres MD Unavailable [phone] Sixto Whalen APRN BUSINESS SYSTEMS ADMINISTRATOR Unavailable [phone] No Ref-Primary, Physician Primary Care Provider Yessica Mcleod PA-C Unavailable Bhavin Gardner Primary Care Provider [phone] Encounter Details Date Type Department Care Team (Late st Contact Info) Description 09/26/2023 MyC Medical Advice [facility] [place] [address], DA[address]Y 610 [facility] [place] [address] Ky Torres MD 420 [facility] 480 [place], [place] [address] Social History Tobacco Use Types Packs/Day Years [...] AM CDT Oncology Visit [facility] [address] [place] [address] 200 [facility] [place] [phone] Ky Torres MD 420 [facility] 480 [place], [place] [address] documented as of this encounter Visit Diagnoses Not on filedocumented in this encounter Care Teams Lens Examiner Relationship Specialty Start Date End Date System, Provider Not In PCP - General Clinic 08/13/23 12/21/23 No Ref-Primary, Physician PCP - General 12/22/23 12/27/23 Bhavin Gardner 1400 [place] [address] PCP - General Family Medicine 12/28/23 Alvaro Clark MD 420 [facility] 394 [place], [place] [phone] Assigned Surgical Provider 07/24/23 Ky Torres MD 420 [facility] 480 [place], [place] [address] Assigned Cancer Care Provider 09/22/23 10/21/23 Sixto Whalen APRN CNP [address] [place], [place] [address] Assigned Cancer Care Provider 10/22/23 12/21/23 Yessica Mcleod PA-C [address] [place], [place] [address] Assigned Cancer Care Provider 12/22/23 documented as of this encounter
--- OUTSIDE RECORDS SUMMARY | 2024-01-18 04:02 | XMS_ITS ---
Author Organization [facility] Address [address] [place] [address] Care Team Providers Care Wet Plant Operator Name Role Phone Alvaro Clark MD Unavailable Yessica Mcleod PA-C Unavailable Bhavin Gardner Primary Care Provider [phone] Transitional Care Management Status:Closed (Closed) Start date:12/25/2023 Enrollment date:12/27/2023 End date:01/08/2024 Close reason:Goals met Continued Care and Services Coordination
--- OUTSIDE RECORDS SUMMARY | 2024-01-18 04:02 | XMS_ITS | Encounter Summary ---
Author Organization [facility] Address [address] [place] [address] Care Team Providers Care Director Corporate Communications Name Role Phone Alvaro Clark MD Unavailable System, Provider Not In Primary Care Provider Un available Ky Torres MD Unavailable [phone] Encounter Details Date Type Department Care Team [...] Description 03/04/2024 8:00 AM CDT Oncology Visit [facility] [address] [facility] [place] [phone] Ky Torres MD 420 [facility] 480 [place], [place] [address] documented as of this encounter Visit Diagnoses Not on filedocumented in this encounter Care Teams Director Corporate Communications Relationship Specialty Start Date End Date System, Provider Not In PCP - General Clinic 08/13/23 12/21/23 Alvaro Clark MD 420 [facility] 394 [place], [place] [address] Assigned Surgical Provider 07/24/23 Ky Torres MD 420 [facility] 480 [place], [place] [address] Assigned Cancer Care Provider 09/22/23 10/21/23 documented as of this encounter
--- OUTSIDE RECORDS SUMMARY | 2024-01-18 04:02 | XMS_ITS | Encounter Summary ---
Author Organization [facility] Address [address] [place] [address] Care Team Providers Care Marketing Officer Name Role Phone Alvaro Clark MD Unavailable System, Provider Not In Primary Care Provider Un available Ky Torres MD Unavailable [phone] Sixto Whalen APRN AIRFIELD DEFENCE GUARD Unavailable [phone] No Ref-Primary, Physician Primary Care Provider Yessica Mcleod PA-C Unavailable Bhavin Gardner Primary Care Provider [phone] Encounter Details Date Type Department Care Team (Late st Contact Info) Description 09/28/2023 MyC Medical Advice [facility] [address] 200 [facility] [place] [phone] Charlie Almonte, CARLOS Urothelial cancer (H) (Primary [...] 8:00 AM CDT Oncology Visit [facility] [address] [place] [address] 200 [facility] [place] [address] Ky Torres MD 420 [facility] 480 [place] [address] documented as of this encounter Visit Diagnoses Diagnosis Urothelial cancer (H)- Primary Malignant neoplasm of other specified sites of urinary organs documented in this encounter Care Teams Marketing Officer Relationship Specialty Start Date End Date System, Provider Not In PCP - General Clinic 08/13/23 12/21/23 No Ref-Primary, Physician PCP - General 12/22/23 12/27/23 Bhavin Gardner [address] [place] [address] PCP - General Family Medicine 12/28/23 Alvaro Clark MD [address] [address] Assigned Surgical Provider 07/24/23 Ky Torres MD [address] [address] Assigned Cancer Care Provider 09/22/23 10/21/23 Sixto Whalen APRN CNP 909 [place] [address] Assigned Cancer Care Provider 10/22/23 12/21/23 Yessica Mcleod PAJannetC 909 [place] [address] Assigned Cancer Care Provider 12/22/23 documented as of this encounter
--- OUTSIDE RECORDS SUMMARY | 2024-01-18 04:02 | XMS_ITS | Encounter Summary ---
Author Organization [facility] Address [address] [place] [address]. [place] [address] Care Team Providers Care Director Client Name Role Phone Alvaro Clark MD Unavailable System, Provider Not In Primary Care Provider Un available Ky Torres MD Unavailable [phone] Reason for Visit * Reason Comments Video Visit Follow up Encounter Details Date Type Department Care Team (Late st Contact Info) Description 10/12/2023 2:30 PM CDT Virtual Visit [facility] [address], DA[address]Y 610 [facility] [place] [phone] Sixto Whalen APRN [facility] 909 [place] [address] Urothelial cancer (H) (Primary Dx) Social History [...] condition or questions Sixto Whalen APRN CNP [facility] Chart documentation with [employer] Voice recognition Software. Although reviewed after completion, some words and grammatical errors may remain. documented in this encounter Nursing Notes * Maria Alejandra Harris - 10/12/2023 2:30 PM CDT Is the patient currently in the state of [place]? YES Visit mode:TELEPHONE If the visit is dropped, the patient can be reconnected by: VIDEO VISIT: Send to e-mail at: Will anyone else be joining the visit? NO (If patient encounters technical issues they should call [phone] :[phone]) How would you like to obtain your AVS? MyChart Are changes needed to the allergy or medication list? No Reason for visit: Video Visit (Follow up) Maria Alejandra Harris VVF documented in this encounter Plan of Treatment Upcoming Encounters Date Type Department Care Team (Late st Contact Info) Description 03/04/2024 8:00 AM CDT Oncology Visit [address] 200 [facility] [place] [address] Ky Torres MD [address] [place] [address] documented as of this encounter Visit Diagnoses Diagnosis Urothelial cancer (H)- Primary Malignant neoplasm of other specified sites of urinary organs documented in this encounter Care Teams Director Client Relationship Specialty Start Date End Date System, Provider Not In PCP - General Clinic 08/13/23 12/21/23 Alvaro Clark MD [address] [place] [address] 394 [place] [address] Assigned Surgical Provider 07/24/23 Ky Torres MD [address] [address] Assigned Cancer Care Provider 09/22/23 10/21/23 documented as of this encounter
--- OUTSIDE RECORDS SUMMARY | 2024-01-18 04:02 | XMS_ITS | Encounter Summary ---
Author Organization [facility] Address [address] [place] [address] Care Team Providers Care Purse Maker Name Role Phone Dalila Arrieta Unavailable [phone] System, Provider Not In Primary Care Provider Un available Alvaro Clark MD Unavailable System, Provider Not In Primary Care Provider Un available Ky Torres MD Unavailable [phone] Sixto Whalen APRN CDL B DRIVER Unavailable [phone] No Ref-Primary, Physician Primary Care Provider Yessica Mcleod PA-C Unavailable Bhavin Gardner Primary Care Provider [phone] Encounter Details Date Type Department Care Team (Late st Contact Info) Description 07/17/2023 [facility] Medical Advice [facility] [address] 5th [place] [address] Lisa Guevara, RN Social History Tobacco Use Types Packs/Day [...] Oncology Visit [facility] [address] [place] [address] 200 [facility] [place] [place] [phone] Ky Torres MD 420 [facility] 480 [place] [address] documented as of this encounter Visit Diagnoses Not on filedocumented in this encounter Care Teams Purse Maker Relationship Specialty Start Date End Date System, Provider Not In PCP - General Clinic 07/20/23 07/20/23 System, Provider Not In PCP - General Clinic 08/13/23 12/21/23 No Ref-Primary, Physician PCP - General 12/22/23 12/27/23 Bhavin Gardner [facility] [place] [address] PCP - General Family Medicine 12/28/23 Dalila Arrieta PA [address] [place] [address] Urology [place], [place] [address] Assigned Surgical Provider 07/03/23 Alvaro Clark MD [address] [place] [address] 394 [place], [place] [address] Assigned Surgical Provider 07/24/23 Ky Torres MD 420 [facility] 480 [place] [address] Assigned Cancer Care Provider 09/22/23 10/21/23 Sixto Whalen APRN CNP [address] [place] [address] Assigned Cancer Care Provider 10/22/23 12/21/23 Yessica Mcleod PA-C [address] [place] [address] Assigned Cancer Care Provider 12/22/23 documented as of this encounter
--- OUTSIDE RECORDS SUMMARY | 2024-01-18 04:02 | XMS_ITS | Encounter Summary ---
Author Organization [facility] Address [address] [place] [address]. [place] [address] Care Team Providers Care Annealing Torch Operator Name Role Phone Alvaro Clark MD Unavailable System, Provider Not In Primary Care Provider Un available Ky Torres MD Unavailable [phone] Sixto Whalen APRN LEAD DRIVER Unavailable [phone] No Ref-Primary, Physician Primary Care Provider Yessica Mcleod PA-C Unavailable Bhavin Gardner Primary Care Provider [phone] Encounter Details Date Type Department Care Team (Late st Contact Info) Description 09/02/2023 MyC Medical Advice [facility] [place] [address], DA[address]Y 610 [facility] [place] [address] Ky Torres MD 420 [facility] 480 [place], [place] [address] Social History Tobacco Use Types Packs/Day Years [...] Description 03/04/2024 8:00 AM CDT Oncology Visit [facility] [address] [place] [address] 200 [facility] [place] [phone] Ky Torres MD 420 [facility] 480 [place], [place] [address] documented as of this encounter Visit Diagnoses Not on filedocumented in this encounter Care Teams Annealing Torch Operator Relationship Specialty Start Date End Date System, Provider Not In PCP - General Clinic 08/13/23 12/21/23 No Ref-Primary, Physician PCP - General 12/22/23 12/27/23 Bhavin Gardner 1400 [place] [address] PCP - General Family Medicine 12/28/23 Alvaro Clark MD 420 [facility] 394 [place], [place] [address] Assigned Surgical Provider 07/24/23 Ky Torres MD 420 [facility] 480 [place], [place] [address] Assigned Cancer Care Provider 09/22/23 10/21/23 Sixto Whalen APRN CNP 909 [place], [place] [address] Assigned Cancer Care Provider 10/22/23 12/21/23 Yessica Mcleod PA-C 909 [place], [place] [address] Assigned Cancer Care Provider 12/22/23 documented as of this encounter
--- OUTSIDE RECORDS SUMMARY | 2024-01-18 04:02 | XMS_ITS | Encounter Summary ---
Author Organization [facility] Address [address] [place] [address] Care Team Providers Care Warehouse Picker Name Role Phone Alvaro Clark MD Unavailable System, Provider Not In Primary Care Provider Un available Ky Torres MD Unavailable [phone] Reason for Visit * Reason Comments Chemotherapy [...] Torres MD [address] [facility] [address] [place] [address] Rh Cancer Infus [facility] Medical Ctr [place] [address] [address] [place] [address] Referral ID Status Reason Start Date Expiration Date Visits Re quested Visits Authorized [id number] Closed 09/06/2023 03/26/2024 100 1 Encounter Details Date Type Department Care Team (Latest Contact Info) Description 10/13/2023 9:30 AM CDT Infusion Therapy Visit [facility] [address] [address] [place] [address] Yessica Mcleod PA-C [address] [place] [address] Urothelial cancer (H) (Primary Dx) Social History [...] virtual visit with STACEY Gardiner yesterday 10/11 Chimney Repairer present during visit today: Not Applicable. Note: Oleg feels well, said last cycle went well, no side effects he has noticed yet. He needs to hand picker his Decadron prescription after infusion today, [...] used: Yes ONPRO injector device Lot number: [id number] Patient education included: what patient can expect [...] all questions answered. AVS to patient via TransifexHART. Patient will return 10/27/23 for next appointment. Patient discharged in stable condition accompanied by: self. Departure Mode: Ambulatory. Gabby Savage RN documented in this encounter Plan of Treatment Upcoming Encounters Date Type Department Care Team (Late st Contact Info) Description 03/04/2024 8:00 AM CDT Oncology Visit [address] 200 [facility] [place] [address] Ky Torres MD [address] [address] documented as of this encounter Visit [...] BSA 2.05 m2). Change within 10%. Arianna Blankenship PharmD October 13, 2023 Possible Vesicant or Irritant depending on concentration. See extravasation policy. May require hepatic and/or renal dose or frequency adjustments. See reference link for guidelines. If this chemotherapy plan contains a taxane (paclitaxel, paclitaxel-protein bound, docetaxel, or cabazitaxel) on the same day, administer this [place] agent after the taxane. $New Bag 10/13/2023 [...] On Thu10/13/23 at 1000, For 1 dose, [place] hang. For Intravenous Use Only. Fatal If Given By Other Routes. Vesicant. May require hepatic and/or renal dose or frequency adjustments. See reference link for guidelines. $New Bag 10/13/2023 11:03 AM CDT 6.2 mg documented in this encounter Care Teams Warehouse Picker Relationship Specialty Start Date End Date System, Provider Not In PCP - General Clinic 08/13/23 12/21/23 Alvaro Clark MD [address] [place] [address] 394 [place], [place] [address] Assigned Surgical Provider 07/24/23 Ky Torres MD [address] [place] [address] 480 [place], [place] [address] Assigned Cancer Care Provider 09/22/23 10/21/23 documented as of this encounter
--- OUTSIDE RECORDS SUMMARY | 2024-01-18 04:02 | XMS_ITS | Encounter Summary ---
Author Organization [facility] Address [address] [place] [address] Care Team Providers Care Associate Financial Representative Name Role Phone Alvaro Clark MD Unavailable System, Provider Not In Primary Care Provider Un available Ky Torres MD Unavailable [phone] Encounter Details Date Type Department Care Team (Late st Contact Info) Description 10/13/2023 MyC Medical Advice [address] 200 [facility] [place] [phone] Charlie Almonte RN Urothelial cancer (H) Social History Tobacco Use [...] Description 03/04/2024 8:00 AM CDT Oncology Visit [address] 200 [facility] [place] [address] Ky Torres MD [address] [facility] [address] [facility] 480 [place], [place] [address] documented as of this encounter Visit Diagnoses Diagnosis Urothelial cancer (H) Malignant neoplasm of other specified sites of urinary organs documented in this encounter Care Teams Associate Financial Representative Relationship Specialty Start Date End Date System, Provider Not In PCP - General Clinic 08/13/23 12/21/23 Alvaro Clark MD [address] [address] Assigned Surgical Provider 07/24/23 Ky Torres MD [address] [address] Assigned Cancer Care Provider 09/22/23 10/21/23 documented as of this encounter
--- OUTSIDE RECORDS SUMMARY | 2024-01-18 04:02 | XMS_ITS | Encounter Summary ---
Author Organization [facility] Address [address] [place] [address] Care Team Providers Care Instructor Watch Assembly Name Role Phone Dalila Arrieta Unavailable [phone] System, Provider Not In Primary Care Provider Un available Alvaro Clark MD Unavailable System, Provider Not In Primary Care Provider Un available Ky Torres MD Unavailable [phone] Sixto Whalen APRN [employer] Unavailable [phone] No Ref-Primary, Physician Primary Care Provider Yessica Mcleod PA-C Unavailable Bhavin Gardner Primary Care Provider [phone] Reason for Visit * Reason Onset Date Comments Appointment 06/08/2023 Patient needs an appointment for retention and hematuria - please call. Encounter Details Date Type Department Care Team (Late st Contact Info) Description 06/08/2023 Telephone [facility] [address] 4[address] [place] [address] None Appointment (Patient needs an [...] encounter Miscellaneous Notes * Telephone Encounter - Angelic Juan - 06/10/2023 8:11 AM CST Action 06/10/23 ROSALIE 8:11 AM Action Taken Records from [facility] ER received. Sent to urgent scanning to be uploaded. R CONSERVATION SPECIALIST * Telephone Encounter - Jacque Chan, CARLOS - 06/09/2023 3:14 PM CST Spoke with Zoraida, Patient's niece. He was seen for retention at [facility] ER. They had referred him to be seen by [facility] but they declined due to being too far away. They would like to be seen at [facility].Patient scheduled for next available with Carolina Arrieta. Zoraida has a disc with imaging and ED notes. Encounter sent to Kandi Romo to try and bring in anyrecords from [facility]. Jacque Chan RN on 06/09/2023 at 3:20 PM R CONSERVATION SPECIALIST * Telephone Encounter - Rosalinda Hendricks - 06/08/2023 4:27 PM CST [facility] Phone Message May a detailed message [...] Message routed to: [facility] ([facility]): URO Travel Screening: Not Applicable R CONSERVATION SPECIALIST documented in this encounter Plan of Treatment Upcoming Encounters Date Type Department Care Team (Late st Contact Info) Description 03/04/2024 8:00 AM CDT Oncology Visit [address] [place] [address] [facility] [place] [address] Ky Torres MD [address] [address] documented as of this encounter Visit Diagnoses Not on filedocumented in this encounter Care Teams Instructor Watch Assembly Relationship Specialty Start Date End Date System, Provider Not In PCP - General Clinic 07/20/23 07/20/23 System, Provider Not In PCP - General Clinic 08/13/23 12/21/23 No Ref-Primary, Physician PCP - General 12/22/23 12/27/23 Bhavin Gardner [facility] [place] [address] PCP - General Family Medicine 12/28/23 Dalila Arrieta PA [address] [place] [address] Urology [place], [place] [id number] Assigned Surgical Provider 07/03/23 Alvaro Clark MD [address] [facility] [address] [place], [place] [id number] Assigned Surgical Provider 07/24/23 Ky Torres MD [address] [facility] [address] [place] [address] Assigned Cancer Care Provider 09/22/23 10/21/23 Sixto Whalen APRN CNP [address] [place] [address] Assigned Cancer Care Provider 10/22/23 12/21/23 Yessica Mcleod PA-C [address] [place], [place] [address] Assigned Cancer Care Provider 12/22/23 documented as of this encounter
[2024-01-18 04:06] LABS: Albumin* 3.6 g/dL (3.3-5.0); Chloride* 103 mmol/L (96-114)
[2024-01-18 04:07] LABS: Sodium* 132 mmol/L (135-149)
[2024-01-18 04:08] LABS: PCR FLU A Negative PCR FLU A (Negative); PCR FLU B Negative PCR FLU B (Negative); PCR RSV Negative PCR RSV (Negative); SARS PCR* Negative SARS-CoV-2 (Negative)
[2024-01-18 04:09] LABS: Bilirubin Total* 0.5 mg/dL (0.1-1.5); Est. Creatinine Clearance* 69.77; Estimated Glomerular Filt Rate 84 ml/min
[2024-01-18 04:10] LABS: Alanine Aminotransferase* 18 U/L (4-50); Alkaline Phosphatase* 79 U/L (40-150); Anion Gap 8 mEq/L (7-15); Aspartate Amino Transferase* 28 U/L (12-35); Blood Urea Nitrogen* 23 mg/dL (7-30); Calcium* 8.9 mg/dL (8.4-10.6); Carbon Dioxide* 21 mmol/L (20-32); Glucose* 135 mg/dL (60-115); Total Protein* 6.6 g/dL (6.0-8.3)
[2024-01-18 04:13] LABS: C Reactive Protein* 3.4 mg/dL (0.5-1.0)
--- NOTE | 2024-01-18 04:16 | ED.GENADULT ---
HPI - General Adult General Chief complaint: Fever Stated complaint: post op bladder surgery,fever,headache Time Seen by Provider: 01/18/24 03:24 History of Present Illness HPI narrative: 63-year-old male with a notable history of bladder cancer presents to the emergency department for evaluation of sweats, headaches and body aches since last evening. 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 He actually just had his stents and catheter removed 3 days ago. I do not have access to that note but it sounds consistent based on his description and it does fit the typical time line. He reports that he was anticoagulated while those products were in to help prevent clots but does not have any history of coagulopathy. He has been voiding since the stents and things were removed but does leak some urine as well. It sounds like he was on some preventative antibiotics but did stop those 3 days ago as was part of the typical protocol. He is not having any productive cough, no skin changes. He is not having any abdominal pain, diarrhea, sore throat or other localizing symptoms of infection. He does have a fever here. He was warned by his surgeon to come to the ED if he had any of the above symptoms as it could be a sign of an infection. He did not try any interventions at home prior to coming to the ED. He says that his urine does have some mucus but no blood. Says that the incisions look to be healing well with no signs of redness, drainage or complication. Past medical history is really only notable for the bladder cancer. He is not currently taking any long-term medications at this time. Allergy to penicillins. It looks like preventative antibiotic that he was on was just Macrobid. ROS is notable for the generalized symptoms as described above only, otherwise denies times 12 systems. Related Data Home Medications ?Medication ?Instructions ?Recorded ?Confirmed albuterol 90 mcg/actuation aerosol 2 spray inhalation PRN 05/27/23 05/27/23 inhaler apixaban 2.5 mg tablet (Eliquis) 2.5 mg PO BID 12/26/23 12/26/23 nitrofurantoin 1 cap PO DAILY 12/26/23 12/26/23 monohydrate/macrocrystals 100 mg capsule Previous Rx's ?Medication ?Instructions ?Recorded cephalexin 500 mg capsule 500 mg PO TID 7 days #21 caps 01/18/24 Allergies Allergy/AdvReac Type Severity Reaction Status Date / Time Penicillins Allergy Intermediate Verified 01/18/24 03:21 PFSH PFS Medical History Reactive airway disease ?J45.909 - Unspecified asthma, uncomplicated (ICD-10) Pneumonia ?J18.9 - Pneumonia, unspecified organism (ICD-10) Surgical History History of pyloric stenosis as a child ?Z87.19 - Personal history of other diseases of the digestive system (ICD-10) Family History Father Cancer of kidney Myocardial infarction, Onset Age: 87 Grandfather Myocardial infarction Grandmother Myocardial infarction Social History 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, 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, 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 Ex-smoker quit in 2012 60 pack year Does not drink alcohol, 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, remote use of cocaine and marijuana no IV drug use ever 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 Exam Const: Vital Signs, click to edit/add: Vital Signs - 24 hr 01/18/24 03:19 Temperature 100.5 F H Pulse Rate [Right] 87 Respiratory Rate 16 Blood Pressure [Ri ght Upper Arm] 129/89 Pulse Oximetry 97 Oxygen Delivery Me thod Room Air Documenting provider has reviewed patient's vital signs: yes Common normals: no apparent distress and alert General appearance: cooperative, comfortable and well kempt HENMT: Common normals: normocephalic Head and scalp: normocephalic Face and sinus: normal facial exam Mouth: oral and palatal mucosa normal Eye: Common normals: conjunctivae normal General eye: normal appearance of both eyes Conjunctiva: conjunctiva(e) normal Neck & C-Spine: Common normals: no lymphadenopathy General: normal visual inspection Resp: Common normals: normal respiratory effort, no use of accessory muscles and clear to auscultation bilaterally Effort & inspection: able to speak in complete sentences Auscultation: clear to auscultation bilaterally Cardio: Common normals: regular rate, regular rhythm, S1 normal heart sound, S2 normal heart sound and no murmurs Rate: regular rate Rhythm: regular rhythm Heart sounds: S1 normal and S2 normal GI: Common normals: Normal to inspection, nondistended, normoactive bowel sounds present, soft to palpation, non-tender and no hepatosplenomegaly Palpation: soft and no hepatosplenomegaly Other: Vertical suprapubic area incision looks to be healing very well. Steri-Strips are in place but no surrounding redness and no drainage. Back & Pelvis: Common normals: thoracic and lumbar spine normal to inspection Extremity: Common normals: normal to inspection and normal capillary refill Neuro: Sensorium/orientation: alert Speech: speech normal Gait (neuro): normal gait Motor exam: no movement abnormalities noted Psych: Common normals: thought process normal Appearance: well kempt Mood and affect: euthymic mood Thought process: normal thought process Insight: insight good Judgement: judgment good Skin: Common normals: no rashes or lesions noted General skin exam: no rashes or lesions noted Course Course ED Course: 63-year-old male with fever status post bladder resection. Very high risk for urinary infection. Differential diagnosis also including other viral illness, intra-abdominal infection, cellulitis, pneumonia, drug fever, amongst others. Will place peripheral IV, give 1 L of normal saline, check urinalysis, COVID swab. Basic blood work to check procalcitonin. Lactate, CBC, metabolic panel and CRP. Will give ibuprofen 600 mg p.o. x1 for fever. Await findings. Reevaluation(s) Time of Reevaluation #1: 04:55 Reevaluation #1: Counseled patient on findings. Urinalysis really specifically positive for urinary tract infection. No signs of sepsis and blood work. Procalcitonin overall reassuring but he does have some leukocytosis. This is certainly complicated urinary tract infection because of his recent surgical history and ileo vesicle conduit. Because of this, will give 1 g of IV Rocephin in then transition on to oral agents. He has a penicillin allergy but no evidence that he does not tolerate cephalosporins. Will transition on to Keflex t.i.d. for 1 week. Counseled patient that he will need to call his urologist in the daylight hours and let him know what is going on. Will give very specific instructions to relay. These really should be improving within about 48 hours. If not he needs to be re-evaluated. Alarm symptoms reviewed that would warrant further and more prompt ED presentation. He verbalizes understanding and agreement. Remainder of labs are overall quite reassuring right do not think additional imaging will be needed. He was in agreement with this. Okay to continue Tylenol and ibuprofen as needed. Vital Signs Vital signs: Initial Vital Signs Temperature 100.5 F H 01/18/24 03:19 Temperature Source Temporal Artery Scan 01/18/24 03:19 Pulse Rate 87 01/18/24 03:19 Pulse Rhythm Regular 01/18/24 03:19 Pulse Strength 3+ Normal 01/18/24 03:19 Respiratory Rate 16 01/18/24 03:19 Blood Pressure 129/89 01/18/24 03:19 Blood Pressure Mean 102 01/18/24 03:19 Blood Pressure Position Supine 01/18/24 03:19 Pulse Oximetry 97 01/18/24 03:19 Oxygen Delivery Method Room Air 01/18/24 03:19 Vital Signs Temperature 100.5 F H 01/18/24 03:19 Pulse Rate 87 01/18/24 03:19 Respiratory Rate 16 01/18/24 03:19 Blood Pressure 129/89 01/18/24 03:19 Pulse Oximetry 97 01/18/24 03:19 Oxygen Delivery Method Room Air 01/18/24 03:19 Temperature 100.5 F H 01/18/24 03:19 Pulse Rate 87 01/18/24 03:19 Respiratory Rate 16 01/18/24 03:19 Blood Pressure 129/89 01/18/24 03:19 Pulse Oximetry 97 01/18/24 03:19 Oxygen Delivery Method Room Air 01/18/24 03:19 Medications Administered Medications: Discontinued Medications Generic Name Dose Route Start Last Admin Trade Name Freq PRN Reason Stop Dose Admin Sodium Chloride 1,000 mls @ 1,000 mls/hr 01/18/24 03:37 01/18/24 03:58 0.9 % Sodium Chloride 1000 Ml IV 01/18/24 04:36 1,000 mls/hr .Q1H BALBINA Administration Ibuprofen 600 mg 01/18/24 03:36 01/18/24 03:58 Ibuprofen 200 Mg Tablet PO 01/18/24 03:37 600 mg ONCE ONE Administration Medical Decision Making Lab Data Lab results reviewed: Yes I reviewed the patient's lab results Lab results narrative: Leukocytosis with left shift and urinalysis very positive for urinary tract infection. Kidney function, electrolytes reassuring. CRP mildly elevated. Labs: Lab Results 01/18/24 01/18/24 01/18/24 Range/Units 03:25 03:39 04:28 WBC 14.38 H (4.50-11.00) K/uL RBC 3.27 L (4.30-5.90) m/uL Hgb 9.4 L (13.5-17.5) gm/dL Hct 29.1 L (37.0-53.0) % MCV 89 (80-100) fL MCH 29 (26-34) pg MCHC 32 (32-36) gm/dL RDW Coeff of Pamela 12.9 (11.5-15.5) % Plt Count 207 (140-440) K/uL Neut % (Auto) 89.7 H (42.0-72.0) % Lymph % (Auto) 2.4 L (20-44) % [place] % (Auto) 6.8 (0.0-11.0) % Eos % (Auto) 0.7 (0.0-7.0) % Baso % (Auto) 0.1 (0.0-3.0) % Neut # (Auto) 12.90 H (1.7-7.0) K/uL Lymph # (Auto) 0.30 L (0.90-2.90) K/uL [place] # (Auto) 1.00 H (0.00-0.90) K/UL Eos # (Auto) 0.10 (0.00-0.50) K/uL Baso # (Auto) 0.00 (0.00-0.30) K/uL Abs Immat Gran (auto) 0.00 (0.00-0.30) K/uL Imm/Tot Granulo (auto) 0.3 % Sodium 132 L (135-149) mmol/L Potassium 4.0 (3.6-5.1) mmol/L Chloride 103 (96-114) mmol/L Carbon Dioxide 21 (20-32) mmol/L Anion Gap 8 (7-15) mEq/L BUN 23 (7-30) mg/dL Creatinine 1.0 (0.5-1.5) mg/dL Estimated Creat Clear 69.77 Estimated GFR 84 ml/min Glucose 135 H (60-115) mg/dL Lactate 0.7 (0.5-1.9) mmol/L Calcium 8.9 (8.4-10.6) mg/dL Total Bilirubin 0.5 (0.1-1.5) mg/dL AST 28 (12-35) U/L ALT 18 (4-50) U/L Alkaline Phosphatase 79 (40-150) U/L C-Reactive Protein 3.4 H (0.5-1.0) mg/dL Total Protein 6.6 (6.0-8.3) g/dL Albumin 3.6 (3.3-5.0) g/dL Procalcitonin 0.42 (<0.50) ng/mL Urine Color Yellow (Yellow) Urine Appearance Cloudy A (Clear) Urine pH 7.5 (5.0-8.5) Ur Specific [place] 1.015 (1.000-1.030) Urine Protein 1+ A (Negative) Urine Glucose (UA) Negative (Negative) Urine Ketones Negative (Negative) Urine Blood 2+ A (Negative) Urine Nitrite Positive A (Negative) Urine Bilirubin Negative (Negative) Urine Urobilinogen 0.2 (0.2-1.0) Ur Leukocyte Esterase 3+ A (Negative) Urine RBC 2-5 A (0-2) Urine WBC 25-50 A (0-5) Ur Squamous Epith Cells Few (None-Few) Amorphous Sediment Few A (None) Urine Bacteria Many A (None) Urine Mucus Moderate A (None) SARS-CoV-2 (PCR) Negative SARS-CoV-2 (Negative) Influenza Type A (PCR) Negative PCR FLU A (Negative) Influenza Type B (PCR) Negative PCR FLU B (Negative) RSV (PCR) Negative PCR RSV (Negative) Discharge Plan Discharge Clinical Impression: Complicated urinary tract infection Patient Disposition: Home w/ Parent or Adult Condition: Stable Instructions: Urinary Tract Infection in Men (DC) Additional Instructions: As we discussed, there certainly does seem to be evidence of urinary infection on your labs today. You do have a mildly elevated white blood cell count but no signs of sepsis or blood infection. We will culture the urine to be sure we know what bacteria is growing and therefore what antibiotic will work properly. We have given you a dose of IV Rocephin here in the emergency department plus a L of IV fluids. A stronger antibiotic was chosen because your bladder infection is certainly more complicated than the average. He will continue on Keflex, a 3 time a day antibiotic for the next week. Please call your urologist in the daylight hours today and let him know about the fever, the fact you were seen in the ED and also about the 2 antibiotics. If he wants to make any changes, I certainly trust his judgment. Unfortunately, he may not have access to my records. If you start feeling weaker, have persistently high fever, have nausea and vomiting or other signs of complication, please come right back to the emergency department. Most start feeling quite a bit better after 24-48 hours. Activity Level: Activity as Tolerated Discharge Diet: Regular Prescriptions: New cephalexin 500 mg capsule 500 mg PO TID 7 Days Qty: 21 0RF No Action albuterol 90 mcg/actuation aerosol 2 spray inhalation PRN nitrofurantoin monohyd/m-cryst 100 mg capsule 1 cap PO DAILY Eliquis 2.5 mg tablet 2.5 mg PO BID Follow Up/Referrals: Rosa Maria Alatorre MD [Primary Care Provider] - Stand Alone Forms: [employer] Info Instructions
[2024-01-18 04:26] LABS: Procalcitonin* 0.42 ng/mL (<0.50)
[2024-01-18 04:36] LABS: Appearance Urine Cloudy (Clear); Bilirubin Urine Negative (Negative); Blood Urine 2+ (Negative); Color Urine Yellow (Yellow); Glucose Urine Negative (Negative); Ketones Urine Negative (Negative); Leukocyte Esterase Urine 3+ (Negative); Nitrite Urine Positive (Negative); Protein Urine 1+ (Negative); Specific Gravity Urine 1.015 (1.000-1.030); Urobilinogen Urine 0.2 (0.2-1.0); pH Urine 7.5 (5.0-8.5)
[2024-01-18 04:44] LABS: Squamous Epithelial Cell Urine Few (None-Few); WBC Urine 25-50 (0-5)
[2024-01-18 04:45] LABS: Amorphous Sediment Urine Few; Bacteria Urine Many; Mucus Urine Moderate
== END 2024-01-18 05:13 | disposition home or self-care (01) ==
PROVIDERS: Emergency Provider Family Medicine; PCP Family Medicine
DX: N39.0 Urinary tract infection, site not specified (principal)
CPT/HCPCS: 36415; 80053; 81001; 81003; 83605; 84145; 85025; 86140; 87086; 87186; 87631; 99283; 99284; A9270; J7030

== ENCOUNTER 2024-02-05 10:54 | Emergency (ER) | payer MEDICARE, OTHER, SELFPAY ==
[2024-02-05 11:13] VITALS: BP 126/80; PULSE 132; RESP 20; TEMP 37.1; O2SAT 97
--- NOTE | 2024-02-05 11:22 | ED_ITS ---
HPI - General Adult General Chief complaint: Urogenital Problems, Male Stated complaint: Abdominal groin pain, chills, headaches Time Seen by Provider: 02/05/24 11:05 History of Present Illness HPI narrative: Pt. had bladder cancer this year 4 doses of chemo and cystectomy and bladder reconstruction 1 month ago. Thursday he mowed the grass and started having moderate feet shoulder and elbow pain. Thursday chills and lower abdominal pain and last night after his self bladder irrigation he had puss and tiny blood streaks in his urine. He has not irrigated today yet. @ weeks ago he was in here for the same thing . We sent him home on an abx and he called his urology clinic and they changed the antibiotic. 63-year-old man presenting to the emergency department with concern of groin area abdominal pain chills and headache. Does have a history of bladder cancer. 4 or 5 weeks ago had bladder reconstruction. Seen in this emergency department 2 weeks ago and initiated on cephalexin after dose of Rocephin for what appeared to be urinary tract infection. Did grow out single colony of Klebsiella as noted below. Mr. Richard reports that he is urology clinic changed him to Bactrim shortly after visit. I do not believe that culture results/sensitivity were available at that time for review. Three days ago was rather active outside and was noting some joint pain then but 2 days ago started to develop some lower abdominal discomfort and then some chills. Noted some purulence in his urine and trace blood on self catheterization. He is irrigating once daily. Urine culture from 01/18/2024 as below Urine Culture* Final ML Organism 1 Klebsiella pneumoniae Ur [place] Count >100,000 CFU/ml Kleb pneum DAGMAR RX --------- --- Ampicillin 16 R Ampicillin/Sulbactam 4 S Cefazolin <=4 S Cefepime <=1 S Cefoxitin <=4 S Ceftazidime <=1 S Ceftriaxone <=1 S Ciprofloxacin <=0.25 S Ertapenem <=0.5 S Gentamicin <=1 S Imipenem <=0.25 S Levofloxacin <=0.12 S Tobramycin <=1 S Trimethoprim/Sulfamethoxazole <=20 S Piperacillin/Tazobactam <=4 S Related Data Home Medications ?Medication ?Instructions ?Recorded ?Confirmed albuterol 90 mcg/actuation aerosol 2 spray inhalation PRN 05/27/23 01/22/24 inhaler cephalexin 500 mg capsule 500 mg PO BID 01/22/24 Previous Rx's ?Medication ?Instructions ?Recorded cetirizine 10 mg tablet (Zyrtec) 10 mg PO BID #28 tabs 01/22/24 Allergies Allergy/AdvReac Type Severity Reaction Status Date / Time Penicillins Allergy Intermediate Verified 01/22/24 10:41 Review of Systems Status of ROS: Reports: 6 or more systems reviewed and unremarkable except as noted in History and below [facility] Medical History Reactive airway disease ?J45.909 - Unspecified asthma, uncomplicated (ICD-10) Pneumonia ?J18.9 - Pneumonia, unspecified organism (ICD-10) Surgical History History of pyloric stenosis as a child ?Z87.19 - Personal history of other diseases of the digestive system (ICD-10) Family History Father Cancer of kidney Myocardial infarction, Onset Age: 87 Grandfather Myocardial infarction Grandmother Myocardial infarction 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 NAD. Skin is warm and dry. No rash. Is well-perfused peripherally. Breathing easily. Heart rate is up a little bit, tachycardic in a regular rhythm. Lungs are clear. Abdomen with well-healed recent midline low surgical incision. Minimally uncomfortable to palpation in the low abdomen. exam is WNL. Const: Vital Signs, click to edit/add: Vital Signs - 24 hr 02/05/24 11:13 Temperature 98.8 F Pulse Rate [Right Radial] 132 H Respiratory Rate 20 Blood Pressure [Ri ght Upper Arm] 126/60 Pulse Oximetry 97 Oxygen Delivery Me thod Room Air Documenting provider has reviewed patient's vital signs: yes Course Vital Signs Vital signs: Initial Vital Signs Temperature 98.8 F 02/05/24 11:13 Temperature Source Temporal Artery Scan 02/05/24 11:13 Pulse Rate 132 H 02/05/24 11:13 Pulse Rhythm Regular 02/05/24 11:13 Respiratory Rate 20 02/05/24 11:13 Blood Pressure 126/80 02/05/24 11:13 Blood Pressure Mean 95 02/05/24 11:13 Pulse Oximetry 97 02/05/24 11:13 Oxygen Delivery Method Room Air 02/05/24 11:13 Vital Signs Temperature 98.8 F 02/05/24 11:13 Pulse Rate 132 H 02/05/24 11:13 Respiratory Rate 20 02/05/24 11:13 Blood Pressure 126/80 02/05/24 11:13 Pulse Oximetry 97 02/05/24 11:13 Oxygen Delivery Method Room Air 02/05/24 11:13 Temperature 98.8 F 02/05/24 11:13 Pulse Rate 109 H 02/05/24 12:30 Respiratory Rate 18 02/05/24 12:30 Blood Pressure 125/82 02/05/24 12:30 Pulse Oximetry 96 02/05/24 12:30 Oxygen Delivery Method Room Air 02/05/24 12:30 Medications Administered Medications: Discontinued Medications Generic Name Dose Route Start Last Admin Trade Name Freq PRN Reason Stop Dose Admin Ceftriaxone Sodium 1 gm 02/05/24 13:28 02/05/24 13:35 Ceftriaxone 1 Gm Vial IM 02/05/24 13:29 1 gm ONCE ONE Administration Sodium Chloride 1,000 mls @ 1,000 mls/hr 02/05/24 11:35 02/05/24 13:28 0.9 % Sodium Chloride 1000 Ml IV 02/05/24 12:34 Infused .Q1H ONE Infusion Ceftriaxone Sodium 1 gm/ 100 mls @ 200 mls/hr 02/05/24 12:56 02/05/24 14:08 Sodium Chloride IVPB 02/05/24 12:57 Not Given ONCE ONE Lidocaine HCl 2.1 ml 02/05/24 13:28 02/05/24 13:35 Lidocaine 1% 5 Ml (Pf) 5 Ml Vial IM 2.1 ml DIRECTED PRN Administration Pain Medical Decision Making MDM Narrative Medical decision making narrative: Differential does include sepsis. COVID or influenza like illness as well. Would certainly evaluate for urinary tract infection in this setting; cystitis versus pyelonephritis.. With bladder reconstruction as described would likely be with a regular findings of bacteria though did grow out singular colony before. Look for other potential sources of infection considering the chills and tachycardia. Has no respiratory findings/complaints. IV hydration normal saline initially. Labs do show mildly elevated white count. CRP is elevated 6.8 Urine looks grossly infected. COVID and influenza screening is negative. Considering change of antibiotic by primary care clinic would like to discuss with primary urologist this case. Did discuss with primary urologist. Urine in agreement with treating as no other source of infection identified other than urine. Reminded of likelihood to generally be with bacteria in the urine as this bladder was created out of the intestine. Anticipated IV Rocephin but line has been pulled so IM Rocephin given. Urine culture pending. Will be continuing on course of cephalexin based on sensitivities from Klebsiella that was last cultured. Does need to be irrigating bladder more frequently/more volume Heart rate did improve though still mildly tachycardic. See patient discharge plan for further discussion Medical Records Medical records reviewed: Yes I reviewed the patient's medical records Lab Data Lab results reviewed: Yes I reviewed the patient's lab results Labs: Lab Results 02/05/24 02/05/24 Range/Units 11:55 Unknown WBC 13.81 H (4.50-11.00) K/uL RBC 3.32 L (4.30-5.90) m/uL Hgb 9.2 L (13.5-17.5) gm/dL Hct 29.6 L (37.0-53.0) % MCV 89 (80-100) fL MCH 28 (26-34) pg MCHC 31 L (32-36) gm/dL RDW Coeff of Pamela 14.5 (11.5-15.5) % Plt Count 217 (140-440) K/uL Neut % (Auto) 84.4 H (42.0-72.0) % Lymph % (Auto) 4.7 L (20-44) % [place] % (Auto) 10.3 (0.0-11.0) % Eos % (Auto) 0.2 (0.0-7.0) % Baso % (Auto) 0.1 (0.0-3.0) % Neut # (Auto) 11.70 H (1.7-7.0) K/uL Lymph # (Auto) 0.60 L (0.90-2.90) K/uL [place] # (Auto) 1.40 H (0.00-0.90) K/UL Eos # (Auto) 0.00 (0.00-0.50) K/uL Baso # (Auto) 0.00 (0.00-0.30) K/uL Abs Immat Gran (auto) 0.00 (0.00-0.30) K/uL Imm/Tot Granulo (auto) 0.3 % Diff Slide Review Acceptable Review (Acceptable) Sodium 133 L (135-149) mmol/L Potassium 3.8 (3.6-5.1) mmol/L Chloride 100 (96-114) mmol/L Carbon Dioxide 26 (20-32) mmol/L Anion Gap 7 (7-15) mEq/L BUN 20 (7-30) mg/dL Creatinine 1.1 (0.5-1.5) mg/dL Estimated GFR 75 ml/min Glucose 126 H (60-115) mg/dL Lactate 1.8 (0.5-1.9) mmol/L Calcium 9.2 (8.4-10.6) mg/dL Magnesium 1.9 (1.5-2.6) mg/dL C-Reactive Protein 6.8 H (0.5-1.0) mg/dL Urine Color Yellow (Yellow) Urine Appearance Turbid A (Clear) Urine pH 6.5 (5.0-8.5) Ur Specific [place] 1.015 (1.000-1.030) Urine Protein 1+ A (Negative) Urine Glucose (UA) Negative (Negative) Urine Ketones Negative (Negative) Urine Blood 2+ A (Negative) Urine Nitrite Positive A (Negative) Urine Bilirubin Negative (Negative) Urine Urobilinogen 0.2 (0.2-1.0) Ur Leukocyte Esterase 3+ A (Negative) Urine RBC 10-25 A (0-2) Urine WBC >100 A (0-5) Ur Squamous Epith Cells Moderate A (None-Few) Urine Bacteria Many A (None) SARS-CoV-2 (PCR) Negative SARS-CoV-2 (Negative) Influenza Type A (PCR) Negative PCR FLU A (Negative) Influenza Type B (PCR) Negative PCR FLU B (Negative) Discharge Plan Discharge Clinical Impression: Cystitis Patient Disposition: Home, Self-Care Condition: Improved Instructions: Urinary Tract Infection in Men (DC) Additional Instructions: A urine culture will be pending here to better direct antibiotics if necessary. We will call you if a change needs to be made. Take this urine culture results and sensitivities from January 17 with you and give this to your urology clinic please. Report fever, repeated vomiting, diarrhea. It might be a good idea to follow-up afterwards, after this course of antibiotics, to recheck your urine. Cephalexin from [facility] Prescriptions: No Action albuterol 90 mcg/actuation aerosol 2 spray inhalation PRN cephalexin 500 mg capsule 500 mg PO BID cetirizine [Zyrtec] 10 mg tablet 10 mg PO BID Qty: 28 0RF Follow Up/Referrals: Rosa Maria Alatorre MD [Primary Care Provider] - Stand Alone Forms: [employer] Info Instructions
[2024-02-05 11:43] LABS: Lactate* 1.8 mmol/L (0.5-1.9)
[2024-02-05 11:45] LABS: Basophils Percent Auto 0.1 % (0.0-3.0); Eosinophils Percent Auto 0.2 % (0.0-7.0); Hematocrit 29.6 % (37.0-53.0); Hemoglobin* 9.2 gm/dL (13.5-17.5); Immature Granulocytes Pct Auto 0.3 %; Lymphocytes Percent Auto 4.7 % (20-44); Mean Corpuscular HGB Conc 31 gm/dL (32-36); Mean Corpuscular Hemoglobin 28 pg (26-34); Mean Corpuscular Volume 89 fL (80-100); Monocytes Percent Auto 10.3 % (0.0-11.0); Neutrophils Percent Auto 84.4 % (42.0-72.0); Platelet Count* 217 K/uL (140-440); RDW Coefficient of Variation % 14.5 % (11.5-15.5); Red Blood Count 3.32 m/uL (4.30-5.90); White Blood Count* 13.81 K/uL (4.50-11.00)
[2024-02-05 11:47] LABS: Slide Review Reflex Yes
--- OUTSIDE RECORDS SUMMARY | 2024-02-05 11:49 | XMS_ITS | Referral Summary ---
Author Organization [place] Address [address] [place] [address] Care Team Providers Care Ceramic Coater Name Role Phone Alvaro Clark MD Unavailable Bhavin Gardner Primary Care Provider [phone] Ky Torres MD Unavailable [phone] Encounters Date Type Department Care Team Description 02/05/2024 [place] [address] [facility] [place] [address] Ky Torres MD Symptoms 02/04/2024 Orders Only PHARMACY [address] [place] [phone] Sigrid Tadeo [facility] 01/25/2024 [facility] [address] 4th [place] [phone] Alvaro Clark MD 01/22/2024 [place] [address] [facility] [place] [address] Alvaro Clark MD Symptoms 01/18/2024 [place] [address] [facility] [place] [address] Alvaro Clark MD Patient/info Update 01/15/2024 [place] [address] [facility] [place] [address] Alvaro Clark MD Symptoms 01/15/2024 12:40 PM CDT Lab [facility] [place] [phone] Urothelial cancer (H) 01/15/2024 Travel 01/15/2024 Orders Only [address] [facility] [place] [address] Charlie Almonte RN Urothelial cancer (H) (Primary Dx); 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) 01/15/2024 11:30 AM CDT Oncology Visit [address] [facility] [place] [address] Ky Torres MD Urothelial cancer (H) (Primary Dx); Prostate cancer (H) 01/15/2024 10:30 AM CDT Office Visit [address] [facility] [place] [address] Alvaro Clark MD Urothelial cancer (H) (Primary Dx); Urinary retention 01/13/2024 Travel 01/13/2024 1:02 PM CDT - 01/13/2024 11:59 PM CDT Hospital Encounter [facility] Imaging [address] [place] [address] Yessica Mcleod, PAJannetC Urothelial cancer (H); 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) Discharge Disposition: Home or Self Care 01/13/2024 12:45 PM CDT Lab [facility] [address] [place] [address] Alvaro Clark MD Urothelial cancer (H) 01/07/[address] [facility] [place] [address] Alvaro Clark MD Medication Request 01/02/2024 Team Conference [facility] Urology Clinic [address] 4th [place] [address] Guillaume Brenner MD 01/01/2024 Travel 01/01/2024 9:45 AM CDT Office Visit [address] [facility] [place] [address] Alvaro Clark MD Urothelial cancer (H) (Primary Dx) 12/30/2023 10:12 PM CDT - 12/31/2023 1:28 AM CDT Emergency [facility] Emergency Dept [address] [place] [address] Kandi Morales MD Problem with Isaac catheter, initial encounter (H24) Discharge Disposition: Home or Self Care 12/30/2023 Travel 12/27/2023 4:52 AM CDT - 12/29/2023 1:34 PM CDT Hospital Encounter [facility] Unit [address] [place] [address] Fernando Romero MD Discharge Disposition: Home or Self Care 12/26/2023 MyC Medical Advice [address] [facility] [place] [address] Alvaro Clark MD Urothelial cancer (H) (Primary Dx) 12/22/2023 5:50 AM CDT - 12/25/2023 3:50 PM CDT Hospital Encounter [facility] Unit [address] [address] Alvaro Clark MD Postoperative state (Primary Dx); Bladder cancer (H); Urothelial cancer (H); Lesion of bladder; Post-op pain Discharge Disposition: Home or Self Care 12/22/2023 8:00 AM CDT - 12/22/2023 1:00 PM CDT Surgery [facility] PeriOp Services [address] [place] [address] lAvaro Clark MD CYSTECTOMY, pelvic node dissection WITH ILEAL NEOBLADDER CREATION 12/22/2023 7:48 AM CDT Anesthesia Event [facility] PeriOp Services [address] [place] [address] Alf Olson MD Johnson, Ashley Keryn, APRN CUSTOMER EXPERIENCE CONSULTANT 12/11/2023 Travel 12/11/2023 9:00 AM CDT Lab [facility] Lab [address] [address] Preop examination; 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 (H) 12/11/2023 PRE VISIT [facility] Preoperative Assessment Center [address] [address] Rizwana Tejeda APRN CNP 12/11/2023 8:00 AM CDT Office Visit [facility] Preoperative Assessment Center [address] [address] Rizwana Tejeda APRN CNP Preop examination (Primary Dx); 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 (H) 12/08/2023 PRE VISIT [facility] Preoperative Assessment Center [address] [address] Rizwana Tejeda APRN CUSTOMER EXPERIENCE CONSULTANT 12/01/2023 MyC Medical Advice [address] [facility] [place] [phone] Sabra Wilcox 12/01/2023 Orders Only [facility] [address] [facility] [place] [address] Dylan Guerin PA Urothelial cancer (H) (Primary Dx) 11/27/2023 Travel 11/27/2023 2:30 PM CDT Oncology Visit [facility] [address] [facility] [place] [address] Yessica Mcleod PA-C Urothelial cancer (H) (Primary Dx); 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) Discharge Disposition: Home or Self Care 11/25/2023 10:56 AM CDT - 11/25/2023 2:17 PM CDT Hospital Encounter [facility] Care Suites [address] [phone] Non-Fv Credentialed Provider, Radiology Thuan Rodriguez MD Discharge Disposition: Home or Self Care 11/20/2023 Orders Only [facility] Urology [address] [phone] Alvaro Clark MD 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 (H) (Primary Dx) 11/20/2023 Travel 11/20/2023 11:00 AM CDT Office Visit [facility] [address] [facility] [place] [address] Alvaro Clark MD Urothelial cancer (H) (Primary Dx) 11/18/2023 Orders Only [facility] - Cancer Care Service Line [address] [place] [address] Ky Torres MD 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) (Primary Dx) 11/17/2023 MyC Medical Advice [facility] [address] [place] [address] Sixto Whalen APRN CNP 11/10/2023 1:48 PM CDT - 11/10/2023 11:59 PM CDT Hospital Encounter [facility] Imaging [address] [place] [phone] Yessica Mcleod PA-C Left leg swelling Discharge Disposition: Home or Self Care 11/10/2023 Travel 11/10/2023 8:30 AM CDT Infusion Therapy Visit [address] [place] [phone] Ky Torres MD Urothelial cancer (H) (Primary Dx) 11/10/2023 7:45 AM CDT Lab [address] [place] [phone] Ky Torres MD Urothelial cancer (H) (Primary Dx) 11/10/2023 8:00 AM CDT Oncology Visit [address] [place] [phone] Yessica Mcleod PA-C Urothelial cancer (H) (Primary Dx); Left leg swelling from Last 3 Months Allergies Active Allergy [...] as needed Active acetaminophen (TYLENOL) 325 MG tabletIndications:Postop erative state,Post-op pain Take 2 tablets (650 mg) by mouth every 4 hours as needed for other (For optimal non-opioid multimodal pain management to improve pain control.) 50 tablet 4 Active apixaban ANTICOAGULANT (ELIQUIS) 2.5 MG tabletIndications:DVT-PE Prophylaxis Take 1 tablet (2.5 mg) by mouth 2 times daily 58 tablet 4 Active gabapentin (NEURONTIN) 100 MG capsuleIndications:Posto perative state,Post-op pain Take 1 capsule (100 mg) by mouth 3 times daily as needed for other (post op pain) 14 capsule 4 Active methocarbamol (ROBAXIN) 750 MG tabletIndications:Postop erative state,Post-op pain Take 1 tablet (750 mg) by mouth every 6 hours as needed for muscle spasms 14 tablet 4 Active nitroFURantoin macrocrystal-monohydrate (MACROBID) 100 MG capsuleIndications:Perio perative Pharmacoprophylaxis Take 1 capsule (100 mg) by mouth daily 19 capsule 4 Active Additional Information Patient not taking.Reported on 01/15/2024 polyethylene glycol (MIRALAX) 17 GM/Dose powderIndications:Postop erative state Take 17 g by mouth daily 510 g 4 Active senna-docusate (SENOKOT-S/PERICOLACE) 8.6-50 MG tabletIndications:Postop erative state Take 1 tablet by mouth 2 times daily 40 tablet 4 Active ciprofloxacin (CIPRO) 250 MG tabletIndications:Urothe lial cancer (H) Take 1 tablet (250 mg) by mouth 2 times daily 1 tablet 4 Active sulfamethoxazole-trimeth oprim (BACTRIM DS) 800-160 MG tabletIndications:Urinar y tract infection Take 1 tablet by mouth 2 times daily 20 tablet 4 Active Active Problems Problem Noted Date Diagnosed Date Small bowel obstruction 12/27/2023 Bladder cancer 12/22/2023 Cancer Staging:Pathologic stage from 01/15/2024:Stage IIIA(ypT4a, pN0, cM0) - Signed by Ky Torres MD on 01/18/2024 Urothelial cancer 09/06/2023 Lesion of bladder 07/10/2023 [...] Care Team (Late st Contact Info) Description 02/11/2024 11:00 AM CDT Infusion Therapy Visit [place] [address] [place] [phone] Ky Torres MD [address] [place] [address] 03/11/2024 1:00 PM CDT Lab [place] [address] [place] [phone] Yessica Mcleod, PAJose Luis [address] [place], [place] [address] 03/11/2024 1:00 PM CDT Infusion Therapy Visit [address] [place] [phone] 03/11/2024 1:30 PM CDT Oncology Visit [address] [place] [phone] Dylan Guerin PA [address] [place], [place] [phone] Yessica Mcleod PA-C [address] [place], [place] [phone] 04/08/2024 1:00 PM WEAVER APPRENTICE Lab [address] [place] [phone] Yessica Mcleod PA-C [address] [place] [phone] 04/08/2024 1:30 PM WEAVER APPRENTICE Oncology Visit [address] [place] [phone] Dylan Guerin PA [address] [place] [address] 04/08/2024 1:30 PM WEAVER APPRENTICE Infusion Therapy Visit [address] [place] [phone] 05/02/2024 10:30 AM WEAVER APPRENTICE Lab [address] [place] [phone] Ky Torres MD [address] [facility] [address] [place] [address] 05/02/2024 11:20 AM WEAVER APPRENTICE Appointment [facility] Imaging [address] [place] [phone] Ky Torres MD [address] [facility] [address] [place], [place] [address] 05/06/2024 9:30 AM WEAVER APPRENTICE Lab [address] [place] [phone] Ky Torres MD [address] [facility] [address] [place] [address] 05/06/2024 10:00 AM WEAVER APPRENTICE Oncology Visit [address] [place] [phone] Ky Torres MD [address] [facility] [address] [place] [address] 05/06/2024 10:30 AM WEAVER APPRENTICE Infusion Therapy Visit [address] [place] [phone] Ky Torres MD [address] [facility] [address] [place] [address] Medical Devices Implanted Type Area Thoracic Surgeon Device Identifier Shelf Expiration Date Model / Serial / Lot Port-08/28/2023 Implanted:Qty: 1 on 08/28/2023 by Piep Hernandez MD Port Right: Chest Wall [id number] 07/29/2026 / / [id number] Stent Ureteral Product Mgr Diversion 07fr [id number] - [id number] Implanted:Qty: 1 on 12/22/2023 by Alvaro Clark MD at [facility] Stent N/A: Abdomen [employer] [id number] 11/19/2026 [id number] / / [id number] Procedures Procedure Name Priority Date/Time Associated Diagnosis [...] PLATELETS Routine 12/27/2023 7: 37 AM CDT ALT (EXTERNAL RESULT) Routine 12/26/2023 11:00 PM CDT AST (EXTERNAL RESULT) Routine 12/26/2023 11:00 PM CDT CREATININE (EXTERNAL RESULT) Routine 12/26/2023 11:00 PM CDT GLUCOSE (EXTERNAL RESULT) Routine 12/26/2023 11:00 PM CDT POTASSIUM (EXTERNAL RESULT) Routine 12/26/2023 11:00 PM CDT CREATININE FLUID Timed 12/25/2023 10:2 8 [...] 11/10/2023 7:33 AM CDT Urothelial cancer (H) from Last [...] - MICRO GENERAL ORDERABLES [facility] IDD LABORATORY [facility] Inf. Diseases Diag. Lab [address] [facility], Room [address] [place] [address] * (ABNORMAL) CBC with platelets and differential (01/15/2024 12:50 PM CDT) Only the most recent of3 resultswithin the time period is included. WBC [...] NRBCs per 100 WBC 0 <1 /100 08/16/2 024 12:53 PM CDT RH LABORATORY Absolute [...] MD LAB - BLOOD ORDERABL ES LABORATORY [facility] Acute Care Lab [address] [facility] Lab (1st floor, no room number) [place] [address], [facility] * CT Chest/Abdomen/Pelvis w Contrast (01/13/2024 1:26 [...] abdomen. DAWSON ZAVALETA MD Yessica Haynes PA-C [facility] CT ORDERABLES * (ABNORMAL) Comprehensive metabolic panel (BMP + Alb, Alk Phos, ALT, AST, Total. Bili, TP) (01/13/2024 12:59 PM CDT) Only the most recent of2 resultswithin the time period is included. Sodium [...] MD LAB - BLOOD ORDERABL ES LABORATORY [facility] Acute Care Lab [address] [facility] Lab (1st floor, no room number) [place] [address], [facility] * (ABNORMAL) Basic metabolic panel (12/29/2023 7:28 [...] LAB - BLOOD ORDERABL ES UR LABORATORY [facility] Acute Care Lab [address] [facility], Room [address] [place] [address] * (ABNORMAL) CBC with platelets (12/29/2023 7:28 [...] - BLOOD ORDERABL ES Performing Organization Address City/[facility]/ZIP Co de Phone Number UR LABORATORY [facility] Lab [address] [place] [address], Room [address] * Phosphorus (12/28/2023 11:53 AM CDT) Only the most recent of2 resultswithin the time period is included. Phosphorus 2.8 2.5 - 4.5 mg/dL 12/28/2023 1:37 PM CDT UR LABORATORY Blood STRUCTURE OF RIGHT UPPER LIMB / Unknown Venipuncture / Unknown 12/28/2023 11:53 AM CDT 12/28/2023 12:53 PM CDT Krystian Manriquez MD LAB - BLOOD ORDERABL ES UR LABORATORY [facility] Lab [address] [place] [address], Room [address] * Magnesium (12/28/2023 11:53 AM CDT) Only the most recent of3 resultswithin the time period is included. Magnesium 2.0 1.7 - 2.3 mg/dL 12/28/2023 1:37 PM CDT UR LABORATORY Blood STRUCTURE OF RIGHT UPPER LIMB / Unknown Venipuncture / Unknown 12/28/2023 11:53 AM CDT 12/28/2023 12:53 PM CDT Krystian Manriquez MD LAB - BLOOD ORDERABL ES Performing Organization Address City/[facility]/ZIP Co de Phone Number UR LABORATORY [facility] Lab [address] [place] [address], Room [place] [phone] * Electrolyte panel (12/27/2023 7:37 AM CDT) [...] - BLOOD ORDERABL ES Performing Organization Address City/[facility]/ZIP Co de Phone Number UR LABORATORY [facility] Lab [address] [place] [address], Room [address] [phone] * Potassium (External Result) (12/26/2023 11:00 PM CDT) Potassium (External) 4.1 3.6 - 5.1 mmol/L [facility] Blood 12/26/2023 11:0 0 PM CDT Narrative [facility] - 12/26/2023 11:00 PM CDT [facility] ED NOTES Provider Outside LAB - HIM EXTERNAL R ESULT Performing Organization Address City/[facility]/ZIP Co de Phone Number [facility] [address] [place] [address], [facility] [phone] * Glucose (External Result) (12/26/2023 11:00 PM CDT) Glucose (External) 112 60 - 115 mg/dL [facility] Blood 12/26/2023 11:0 0 PM CDT [facility] - 12/26/2023 11:00 PM CDT [facility] ED NOTES Provider Outside LAB - HIM EXTERNAL R ESULT Performing Organization Address [facility]/ZIP Co de Phone Number [facility] [address] [place] [address], [facility] [phone] * Creatinine (External Result) (12/26/2023 11:00 PM CDT) Creatinine (External) 0.9 0.5 - 1.5 mg/dL [facility] GFR Estimated (External) 95 mL/min [facility] Blood 12/26/2023 11:0 0 PM CDT [facility] - 12/26/2023 11:00 PM CDT [facility] ED NOTES Provider Outside LAB - HIM EXTERNAL R ESULT Performing Organization Address City/[facility]/ZIP Co de Phone Number [facility] [address] [place] [address], [facility] [phone] * AST (External Result) (12/26/2023 11:00 PM CDT) AST (External) 34 12 - 35 U/L [facility] Blood 12/26/2023 11:0 0 PM CDT [facility] - 12/26/2023 11:00 PM CDT [facility] ED NOTES Provider Outside LAB - HIM EXTERNAL R ESULT Performing Organization Address City/[facility]/ZIP Co de Phone Number [facility] [address] [place], [place] [address] [phone] * ALT (External Result) (12/26/2023 11:00 PM CDT) ALT (External) 23 4 - 50 U/L [facility] Blood 12/26/2023 11:0 0 PM CDT [facility] - 12/26/2023 11:00 PM CDT [facility] ED NOTES Provider Outside LAB - HIM EXTERNAL R ESULT [facility] [address] [place], [place] [phone] [place] [address] * Creatinine fluid (12/25/2023 10:28 AM CDT) [facility] Creatinine Fluid Source Abdomen 12/25/2023 11:02 AM CDT [facility] LABORATORY Creatinine fluid 0.8 mg/dL 12/25/2023 11:02 AM CDT [facility]U LABORATORY Body fluid, unsp DRAIN / Unknown Non-blood Collection / Unknown 12/25/2023 10:28 AM CDT 12/25/2023 10:37 AM CDT [facility]U LABORATORY - 12/25/2023 11:02 AM CDT [...] - BODY FLUIDS OR DERABLES [facility] LABORATORY [facility] [address] [facility], Room [address] [place] [address], [facility] * (ABNORMAL) Glucose by meter (12/23/2023 6:42 AM CDT) Only the most recent of2 resultswithin the time period is included. GLUCOSE BY METER POCT 118(H) 70 - 99 mg/dL 12/23/2023 6:49 AM CDT [facility] LABORATORY POC Blood, Capillary BLOOD SPECIMEN / Unknown 12/23/2023 6:42 AM CDT 12/23/2023 6:49 AM CDT Alvaro Clark MD LAB - BEAKER POCT Performing Organization Address [facility] Co de Phone Number [facility] LABORATORY POC [facility] [address] [facility], Room [address] [place] [phone] * Platelet count (12/22/2023 9:55 PM CDT) Platelet Count 179 150 - 450 10e3/uL 12/22/2023 10:12 PM CDT [facility] LABORATORY Blood STRUCTURE OF RIGHT HAND / Unknown IVAD (Port) / Unknown 12/22/2023 9:55 PM CDT 12/22/2023 10:04 PM CDT Alberto Tejeda MD LAB - BLOOD ORDERABL ES Performing Organization Address [facility] Co de Phone Number [facility] LABORATORY [facility] [address] [facility], Room [address] * XR Abdomen Port 1 View [...] Case Report Surgical Pathology Report ? Case: [id number] ? Authorizing Provider: ??Alvaro Clark MD ?Collected: [...] proximal ureteral marigin ? 4 6:31 PM [facility] SPECIALTY LABS Final Diagnosis A. Left distal [...] (no ureteric tissue identified) 4 6:31 PM [facility] LAB[facility] Comment:This is an appended report. These results have been appended to a previously preliminary verified report. Comment Immunohistochemistry analysis of CK5 and CHARLIE-3 was performed and supports the above diagnosis of invasion urothelial carcinoma. 4 6:31 PM [facility] Comment:This is an appended report. [...] 9:15 AM Intra op performed at: LABORATORY, [facility] Core Lab, [address] [place] [address], Room [address] [address] Intra-op Dx verbally delivered to Dr. Amber Tanner(2). Ureter, Right, Right distal ureteral margin: BFS1: Negative for malignancy John Carey MD on 12/22/2023 at 9:27 AM Intra op performed at: LABORATORY, [facility] Core Lab, [address] [facility], Room [address] [address] Intra-op Dx verbally delivered to Dr. Amber Segura(3). Urethra, urethral margin: CFS1: - No evidence of malignancy Tracie Gonzalez MD on 12/22/2023 at 10:41 AM Intra op performed at: LABORATORY, [facility] Core Lab, [address] [facility], Room [address] [address] Intra-op Dx verbally delivered to Dr. Clark [...] reveal no mass deposits or lymph nodes. License Inspector sections are submitted. Gross photography is taken. D1-urethral margin, en face D2-right ureter margin, en face D3-left ureter margin, en face D4-lesion to right ureteral orifice D5-lesion to left ureteral orifice Z1-V25-cttwdc from dome to trigone Y25-fdyjza to seminal vesicles Q24-vidfk lateral wall Z60-snfyoxmv bladder wall A18-eiup P34-X18-mdamx prostatic apex R57-L12-oxzs prostatic apex D23-mid prostate, right anterior D24-mid prostate, left posterior D25-mid prostate, left anterior D26-mid prostate, left posterior N58-zheo prostate, right anterior Q01-ukcv prostate, right posterior X06-wxgf prostate, mid H52-nwhs prostate, left anterior Z00-idlm prostate, left posterior E(5). Lymph Node(s), Pelvis, [...] possible lymph nodes E2-intact possible lymph node D2-A5-hdoedhup possible lymph node G9-G3-duupawul possible lymph node U4-C29-stbkayoi sectioned possible lymph node F(6). Lymph Node(s), [...] possible lymph nodes F2-bisected possible lymph node P8-L6-vvnxqbwf sectioned possible lymph node G(7). Ureter, Left, [...] component of this testing was completed at [facility]. Stain controls for all stains [...] PM CDT Alvaro SPEARS [facility] [address] [facility], Room [address] UU LABORATORY [facility] Core Lab [address] [facility], Room [address] * ANE AIRWAY ETT PERFORMABLE (12/22/2023 8:02 AM CDT) Narrative Nessa Pereira APRN CRNA - 12/22/2023 8:02 AM CDT Nessa Pereira APRN VETERINARY RECEPTIONIST ? 12/22/2023 ??8:22 AM Airway ? Patient location during procedure: OR ? Procedure Start/Stop Times: 12/22/2023 8:02 AM Staff - ? VETERINARY RECEPTIONIST: Nessa Pereira APRN VETERINARY RECEPTIONIST ? Performed By: CRNAIndications and Patient Condition [...] Time: 12/22/2023 8:02 AM Alf Olson MD [place] ANESTHESIA * Adult Type and Screen (12/22/2023 6:47 AM CDT) Only the most recent of2 resultswithin the time period is included. ABO/RH(D) A NEG 12/22/2023 6:16 AM CDT U BLOOD BANK Antibody Screen Negative Negative 12/22/2023 6:16 AM CDT BLOOD BANK SPECIMEN EXPIRATION DATE [id number] 12/22/2023 6:16 AM CDT BLOOD BANK Blood STRUCTURE OF RIGHT HAND / Unknown Venipuncture / Unknown 12/22/2023 6:47 AM CDT 12/22/2023 6:56 AM CDT Alvaro Clark MD LAB - BLOOD BANK LICHA T ORDER BLOOD BANK [address] [place] [address] * US Lower Extremity [...] LAB - B LOOD ORDERABLES RH LABORATORY [facility] Acute Care Lab [address] [facility] Lab (1st floor, no room number) [place] [address], [facility] from Last 3 Months Advance Directives For more information, please contact: [phone] * Full Code (Latest Code Status on File) Date Activated Date Inactivated Comments 12/27/2023 5:11 AM 12/29/2023 3:34 PM All basic an d advanced life-sustaining interventions are performed as appropriate Question Answer Comments Code status determined by: Discussion with saw temple/ legal decision maker * Full Code Date Activated Date Inactivated Comments 12/22/2023 8:50 PM 12/25/2023 5:51 PM All basic an d advanced life-sustaining interventions are performed as appropriate Question Answer Comments Code status determined by: Discussion with saw temple/ legal decision maker Care Teams Ceramic Coater Relationship Specialty Start Date End Date VotelBhavin [facility] [place][note 2] [place] [address] PCP - General Family Medicine 12/28/23 Alvaro Clark MD [address] [facility] [address] [place] [address] Assigned Surgical Provider 07/24/23 Ky Torres MD NPI: [id number] [place] [address] [address] [place], [place] [id number] Assigned Cancer Care Provider 01/22/24
--- OUTSIDE RECORDS SUMMARY | 2024-02-05 11:49 | XMS_ITS | Clinical Summary ---
Author Organization [employer] Address [address] [place] [address] Care Team Providers Care Gusset Edger Name Role Phone Alvaro Clark MD Unavailable Bhavin Gardner Primary Care Provider [phone] Ky Torres MD Unavailable [phone] Allergies Active Allergy Reactions Criticality Noted Date [...] Date Type Department Care Team Description 02/05/[address] [facility] [place] [address] Ky Torres MD Symptoms 02/04/2024 Orders Only PHARMACY [address] [place] [address] Sigrid Tadeo RPH 01/25/2024 Telephone [facility] [place] [address] [facility] SE 4th [place] [address] Alvaro Clark MD 01/22/[address] [place] [address] [facility] [place] [place] [address] Alvaro Clark MD Symptoms 01/18/[address] [place] [address] [facility] [place] [place] [address] Alvaro Clark MD Patient/info Update 01/15/2024 12:40 PM CDT Lab [facility] [address] [place] [address] Urothelial cancer (H) 01/15/2024 11:30 AM CDT Oncology Visit [address] [place] [address] [facility] [place] [address] Ky Torres MD Urothelial cancer (H) (Primary Dx); Prostate cancer (H) 01/15/2024 10:30 AM CDT Office Visit [address] [place] [address] [facility] [place] [address] Alvaro Clark MD Urothelial cancer (H) (Primary Dx); Urinary retention 01/15/[address] [place] [address] [facility] [place] [place] [address] Alvaro Clark MD Symptoms 01/15/2024 Travel 01/15/2024 Orders Only [address] [place] [address] [facility] [place] [place] [address] Charlie Almonte RN Urothelial cancer (H) (Primary Dx); 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 Medical [address] [place] [address] Alvaro Clark MD Urothelial cancer (H) 01/13/2024 Travel 01/07/[address] [place] [address] [facility] [place] [address] Alvaro Clark MD Medication Request 01/02/2024 Team Conference [facility] [address] 4th [place] [address] Guillaume Brenner MD 01/01/2024 9:45 AM CDT Office Visit [address] [place] [address] [facility] [place] [place] [address] Alvaro Clark MD Urothelial cancer (H) (Primary Dx) 01/01/2024 Travel 12/30/2023 10:12 PM CDT - 12/31/2023 1:28 AM CDT Emergency [facility] Emergency Dept [address] [place] [address] Kandi Morales MD Problem with Isaac catheter, initial encounter (H24) Discharge Disposition: Home or Self Care 12/30/2023 Travel 12/27/2023 4:52 AM CDT - 12/29/2023 1:34 PM CDT Hospital Encounter [facility] Unit 8A [facility] [place] [address] Fernando Romero MD Discharge Disposition: Home or Self Care 12/26/2023 MyC Medical Advice [address] [place] [address] [facility] [place] [place] [address] Alvaro Clark MD Urothelial cancer (H) (Primary Dx) 12/22/2023 8:00 AM CDT - 12/22/2023 1:00 PM CDT Surgery [facility] PeriOp Services [address] [place] [address] Alvaro Clark MD CYSTECTOMY, pelvic node dissection WITH ILEAL NEOBLADDER CREATION 12/22/2023 7:48 AM CDT Anesthesia Event [facility] Services [address] [place] [address] Alf Olson MD Johnson, Ashley Keryn, APRN EQUAL OPPORTUNITY COUNSELOR 12/22/2023 5:50 AM CDT - 12/25/2023 3:50 PM CDT Hospital Encounter [facility] Unit [address]B [place] [address] [place] [address] Alvaro Clark MD Postoperative state (Primary Dx); Bladder cancer (H); Urothelial cancer (H); Lesion of bladder; Post-op pain Discharge Disposition: Home or Self Care 12/11/2023 9:00 AM CDT Lab [facility] Lab [address] [place] [phone] Preop examination; 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 (H) 12/11/2023 8:00 AM CDT Office Visit [facility] Preoperative Assessment Center [address] [place] [phone] Rizwana Tejeda APRN EQUAL OPPORTUNITY COUNSELOR Preop examination (Primary Dx); 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 (H) 12/11/2023 Travel 12/11/2023 PRE VISIT [facility] Preoperative Assessment Center [address] [place] [phone] Rizwana Tejeda APRN EQUAL OPPORTUNITY COUNSELOR 12/08/2023 PRE VISIT [facility] Preoperative Assessment Center [address] [place] [phone] Rizwana Tejeda APRN EQUAL OPPORTUNITY COUNSELOR 12/01/2023 MyC Medical Advice [address] [place] [facility] [place] [place] [address] Sabra Wilcox 12/01/2023 Orders Only [address] [place] [facility] [place] [place] [address] Dylan Guerin PA Urothelial cancer (H) (Primary Dx) 11/27/2023 2:30 PM CDT Oncology Visit [address] [place] [address] [facility] [place] [place] [address] Yessica Mcleod PA-C Urothelial cancer (H) (Primary Dx); 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) Discharge Disposition: Home or Self Care 11/25/2023 10:56 AM CDT - 11/25/2023 2:17 PM CDT Hospital Encounter [facility] Suites [address] [place] [place] [phone] Non-Fv Credentialed Provider, Radiology Thuan Rodriguez MD Discharge Disposition: Home or Self Care 11/20/2023 11:00 AM CDT Office Visit [address] [place] [address] [facility] [place] [phone] Alvaro Clark MD Urothelial cancer (H) (Primary Dx) 11/20/2023 Orders Only [facility] [place] [address] [facility] SE 4th [place] [address] Alvaro Clark MD 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 (H) (Primary Dx) 11/20/2023 Travel 11/18/2023 Orders Only [facility] Services - Cancer Care Service Line [facility]0 [place] [address] Ky Torres MD 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) (Primary Dx) 11/17/2023 MyC Medical Advice [facility] [address] [facility] [place] [place] [address] Sixto Whalen APRN EQUAL OPPORTUNITY COUNSELOR 11/10/2023 1:48 PM CDT - 11/10/2023 11:59 PM CDT Hospital Encounter [facility] Imaging [address] [place] [phone] Yessica Mcleod PA-C Left leg swelling Discharge Disposition: Home or Self Care 11/10/2023 8:30 AM CDT Infusion Therapy Visit [address] [place] [phone] Ky Torres MD Urothelial cancer (H) (Primary Dx) 11/10/2023 8:00 AM CDT Oncology Visit [address] [place] [address] [facility] [place] [phone] Yessica Mcleod PA-C Urothelial cancer (H) (Primary Dx); Left leg swelling 11/10/2023 7:45 AM CDT Lab [address] [place] [address] Ky Torres MD Urothelial cancer (H) (Primary Dx) 11/10/2023 Travel from Last 3 Months Family History Medical [...] 02/11/2024 11:00 AM CDT Infusion Therapy Visit [facility] [address] [place] [phone] Ky Torres MD 420 [facility] [address] [place] [address] 03/11/2024 1:00 PM CDT Lab [place] [address] [address] [place] [address] Yessica Mcleod PA-C [address] [place] [address] 03/11/2024 1:00 PM CDT Infusion Therapy Visit [address] [place] [address] 03/11/2024 1:30 PM CDT Oncology Visit [address] [place] [address] Dylan Guerin PA [address] [place] [phone] Yessica Mcleod PA-C [address] [place] [address] 04/08/2024 1:00 PM PARAFFIN MACHINE OPERATOR Lab [address] [place] [phone] Yessica Mcleod PA-C [address] [place] [address] 04/08/2024 1:30 PM PARAFFIN MACHINE OPERATOR Oncology Visit [address] [place] [phone] Dylan Guerin PA [address] [place] [address] 04/08/2024 1:30 PM PARAFFIN MACHINE OPERATOR Infusion Therapy Visit [address] [place] [address] 05/02/2024 10:30 AM PARAFFIN MACHINE OPERATOR Lab [address] [place] [address] Ky Torres MD [address] [place] [address] [facility] [address] [place], [place] [address] 05/02/2024 11:20 AM PARAFFIN MACHINE OPERATOR Appointment [facility] Imaging [address] [place] [phone] Ky Torres MD [address] [facility] [address] [place] [address] 05/06/2024 9:30 AM PARAFFIN MACHINE OPERATOR Lab [address] [place] [address] Ky Torres MD [address] [facility] [facility] [address] [place] [address] 05/06/2024 10:00 AM PARAFFIN MACHINE OPERATOR Oncology Visit [address] [place] [address] Ky Torres MD [address] [facility] [address] [place] [address] 05/06/2024 10:30 AM PARAFFIN MACHINE OPERATOR Infusion Therapy Visit [address] [place] [phone] Ky Torres MD [address] [facility] [address] [place] [address] Health Maintenance Due Date Last Done Comments ADVANCE CARE PLANNING 1959 ANNUAL REVIEW OF HM ORDERS 1959 CT COLONOGRAPHY 1959 FIT 1959 FLEX SIG 1959 sDNA (Cologuard) 1959 COVID-19 Vaccine (#1) 02/14/1964 Pneumococcal Vaccine: Pediatrics (0 to 5 Years) and At-Risk Patients (6 to 64 Years) (1 of 2 - PCV) 1965 COLONOSCOPY 1969 COLORECTAL CANCER SCREENING 1969 HIV SCREENING 1974 HEPATITIS C SCREENING 1977 MEDICARE ANNUAL WELLNESS VISIT 1977 ZOSTER IMMUNIZATION (1 of 2) 1978 LIPID 1999 RSV VACCINE (1 - 1-dose 60+ series) 2019 INFLUENZA [...] this topic Medical Devices Implanted Type Area Voice Intercept Technician Device Identifier Shelf Expiration Date Model / Serial / Lot Port-08/28/2023 Implanted:Qty: 1 on 08/28/2023 by Pipe Hernandez MD Port Right: Chest Wall [id number] 07/29/2026 / / [id number] Stent Ureteral Efficiency Clerk Diversion 07fr [id number] - [id number] Implanted:Qty: 1 on 12/22/2023 by Alvaro Clark MD at [facility] Stent N/A: Abdomen [employer] [id number] 11/19/2026 [id number] / / [id number] Procedures Procedure Name Priority Date/Time Associated Diagnosis [...] - MICRO GENERAL ORDERABLES [facility] IDD LABORATORY [facility] Inf. Diseases Diag. Lab [address] [facility], [address] [place] [address], [facility] * (ABNORMAL) CBC with platelets [...] LAB - BLOOD ORDERABL ES RH LABORATORY [facility] Acute Care Lab [address] Lab (1st floor, no room number) [place] [address] * CT Chest/Abdomen/Pelvis w Contrast (01/13/2024 1:26 [...] abdomen. DAWSON ZAVALETA MD Yessica Haynes PA-C IMG CT ORDERABLES * (ABNORMAL) Comprehensive metabolic panel [...] 1:24 PM CDT RH LABORATORY Comment:eGFR calculated 2020 CKD-EPI equation. Calcium 8.7(L) 8.8 - [...] LAB - BLOOD ORDERABL ES RH LABORATORY [facility] Acute Care Lab [address] Lab (1st floor, no room number) [place] [address] * (ABNORMAL) Basic metabolic panel (12/29/2023 [...] LABORATORY [facility] Acute Care Lab [facility], [address] [place] [address] * (ABNORMAL) CBC with platelets (12/29/2023 [...] - BLOOD ORDERABL ES Performing Organization Address City/[facility]/ZIP Co de Phone Number UR LABORATORY [facility] Acute Care Lab [address] [facility], [address] [place] [address], [facility] * Phosphorus (12/28/2023 11:53 AM CDT) Only the most recent of2 resultswithin the time period is included. Phosphorus 2.8 2.5 - 4.5 mg/dL 12/28/2023 1:37 PM CDT UR LABORATORY Blood STRUCTURE OF RIGHT UPPER LIMB / Unknown Venipuncture / Unknown 12/28/2023 11:53 AM CDT 12/28/2023 12:53 PM CDT Krystian Manriquez MD LAB - BLOOD ORDERABL ES Performing Organization Address [facility] Co de Phone Number UR LABORATORY [facility] Acute Care Lab [address] [facility], [address] [place] [address] * Magnesium (12/28/2023 11:53 AM CDT) Only [...] [facility] Care Lab [address] [facility], [address] [address] * Electrolyte panel (12/27/2023 7:37 AM CDT) [...] - BLOOD ORDERABL ES Performing Organization Address [facility] Co de Phone Number UR LABORATORY [facility] Acute [facility], [address] [address] * Potassium (External Result) (12/26/2023 11:00 PM CDT) Potassium (External) 4.1 3.6 - 5.1 mmol/L [facility] Blood 12/26/2023 11:0 0 PM CDT Narrative [facility] - 12/26/2023 11:00 PM CDT [facility] ED NOTES Provider Outside LAB - HIM EXTERNAL R ESULT Performing Organization Address City/[facility]/ZIP Co de Phone Number [facility] [address] [place], [place] [address] [phone] * Glucose (External Result) (12/26/2023 11:00 PM CDT) Glucose (External) 112 60 - 115 mg/dL [facility] Blood 12/26/2023 11:0 0 PM CDT [facility] - 12/26/2023 11:00 PM CDT [facility] ED NOTES Provider Outside LAB - HIM EXTERNAL R ESULT Performing Organization Address [facility]/ZIP Co de Phone Number [address] [address], [facility] [phone] * Creatinine (External Result) (12/26/2023 11:00 PM CDT) Creatinine (External) 0.9 0.5 - 1.5 mg/dL [facility] GFR Estimated (External) 95 mL/min [facility] Blood 12/26/2023 11:0 0 PM CDT [facility] - 12/26/2023 11:00 PM CDT [facility] ED NOTES Provider Outside LAB - HIM EXTERNAL R ESULT Performing Organization Address City/[facility] Co de Phone Number [address] [address], [facility] [phone] * AST (External Result) (12/26/2023 11:00 PM CDT) AST (External) 34 12 - 35 U/L [facility] Blood 12/26/2023 11:0 0 PM CDT [facility] - 12/26/2023 11:00 PM CDT [facility] ED NOTES Provider Outside LAB - HIM EXTERNAL R ESULT Performing Organization Address City/[facility] Co de Phone Number [address] [address], [facility] [phone] * ALT (External Result) (12/26/2023 11:00 PM CDT) ALT (External) 23 4 - 50 U/L [facility] Blood 12/26/2023 11:0 0 PM CDT [facility] 12/26/2023 11:00 PM CDT [facility] ED NOTES Provider Outside LAB - HIM EXTERNAL R ESULT [facility] [address] [place], [place] [address] [phone] * Creatinine fluid (12/25/2023 10:28 AM CDT) [...] BODY FLUIDS OR DERABLES Performing Organization Address City/[facility]/ZIP Co de Phone Number [facility] LABORATORY [facility] [place] [facility] Lab [address] [facility], [address] [address] * (ABNORMAL) Glucose by meter (12/23/2023 6:42 AM CDT) Only the most recent of2 resultswithin the time period is included. GLUCOSE BY METER POCT 118(H) 70 - 99 mg/dL 12/23/2023 6:49 AM CDT [facility] LABORATORY POC Blood, Capillary BLOOD SPECIMEN / Unknown 12/23/2023 6:42 AM CDT 12/23/2023 6:49 AM CDT Alvaro Clark MD LAB - BEAKER POCT [facility] LABORATORY POC [facility] [place] Core Lab [address] [facility], [address] [place] [address] * Platelet count (12/22/2023 9:55 PM CDT) Platelet Count 179 150 - 450 10e3/uL 12/22/2023 10:12 PM CDT [facility] LABORATORY Blood STRUCTURE OF RIGHT HAND / Unknown IVAD (Port) / Unknown 12/22/2023 9:55 PM CDT 12/22/2023 10:04 PM CDT Alberto Tejeda MD LAB - BLOOD ORDERABL ES UU LABORATORY [facility] Core Lab [address] [facility], [address] [place] [address] * XR Abdomen Port 1 View [...] Case Report Surgical Pathology Report ? Case: [id number] ? Authorizing Provider: ??Alvaro Clark MD ?Collected: [...] 9:15 AM Intra op performed at: LABORATORY, [facility] Core Lab, [address] [place] [address], [address] Intra-op Dx verbally delivered to Dr. Amber Tanner(2). Ureter, Right, Right distal ureteral margin: BFS1: Negative for malignancy John Carey MD on 12/22/2023 at 9:27 AM Intra op performed at: LABORATORY, [facility] Core Lab, [address] [facility], [address] [address] Intra-op Dx verbally delivered to Dr. Amber Segura(3). Urethra, urethral margin: CFS1: - No evidence of malignancy Tracie Gonzalez MD on 12/22/2023 at 10:41 AM Intra op performed at: LABORATORY, [facility] Core Lab, [address] [facility], [address] [address] Intra-op Dx verbally delivered to Dr. Clark [...] reveal no mass deposits or lymph nodes. Turning And Beading Machine Operator sections are submitted. Gross photography is taken. D1-urethral margin, en face D2-right ureter margin, en face D3-left ureter margin, en face D4-lesion to right ureteral orifice D5-lesion to left ureteral orifice C8-G56-kotnee from dome to trigone H14-xydhne to seminal vesicles K60-yinfc lateral wall Q75-vbiuajml bladder wall G69-ridx T57-E55-btqrf prostatic apex U90-S15-cqug prostatic apex D23-mid prostate, right anterior D24-mid prostate, left posterior D25-mid prostate, left anterior D26-mid prostate, left posterior X77-xdyh prostate, right anterior J53-znuk prostate, right posterior P49-hsxb prostate, mid S96-iqvp prostate, left anterior B95-raqg prostate, left posterior E(5). Lymph Node(s), Pelvis, [...] possible lymph nodes E2-intact possible lymph node U4-M3-ynnkyvqs possible lymph node U7-A7-cnizyfug possible lymph node N7-F34-knsuqhql sectioned possible lymph node F(6). Lymph Node(s), [...] possible lymph nodes F2-bisected possible lymph node D5-Y0-sbkfjxcq sectioned possible lymph node G(7). Ureter, Left, [...] component of this testing was completed at [facility]. Stain controls for all stains [...] [facility] Specialty Lab [address] [facility] [address], [address] [place] [address], [facility] U LABORATORY [facility] Core Lab [address] [facility] [address], [address] [place] [address], [facility] * ANE AIRWAY ETT PERFORMABLE (12/22/2023 8:02 AM CDT) Narrative Nessa Pereira APRN FIRST BREAKER FEEDER - 12/22/2023 8:02 AM CDT Nessa Pereira APRN FIRST BREAKER FEEDER ? 12/22/2023 ??8:22 AM Airway ? Patient location during procedure: OR ? Procedure Start/Stop Times: 12/22/2023 8:02 AM Staff - ? FIRST BREAKER FEEDER: Nessa Pereira APRN FIRST BREAKER FEEDER ? Performed By: CRNAIndications and Patient Condition [...] Time: 12/22/2023 8:02 AM Alf Olson MD [place] [facility] * Adult Type and Screen (12/22/2023 6:47 AM CDT) Only the most recent of2 resultswithin the time period is included. ABO/RH(D) A NEG 12/22/2023 6:16 AM CDT U BLOOD BANK Antibody Screen Negative Negative 12/22/2023 6:16 AM CDT BLOOD BANK SPECIMEN EXPIRATION DATE [id number] 12/22/2023 6:16 AM CDT BLOOD BANK Blood STRUCTURE OF RIGHT HAND / Unknown Venipuncture / Unknown 12/22/2023 6:47 AM CDT 12/22/2023 6:56 AM CDT Alvaro Clark MD LAB - BLOOD BANK LICHA T ORDER Performing Organization Address City/State/[facility] Co de Phone Number BLOOD BANK [address] [place] [address] * US Lower Extremity Venous Duplex Left [...] LAB - B LOOD ORDERABLES RH LABORATORY [facility] Acute Care Lab [address] Lab (1st floor, no room number) [place] [address], [facility] from Last 3 Months Advance Directives For more information, please contact: [phone] * Full Code (Latest Code Status on [...] saw temple/ legal decision maker Care Teams Gusset Edger Relationship Specialty Start Date End Date Votel, Bhavin Ford [address] [place] [address] PCP - General Family Medicine 12/28/23 Alvaro Clark MD 420 [facility] [address] [place], [place] [address] Assigned Surgical Provider 07/24/23 Ky Torres MD 420 [facility] [address] [place], [place] [address] Assigned Cancer Care Provider 01/22/24
[2024-02-05] MEDS: 0.9 % SODIUM CHLORIDE 1000 ml 1,000 ML IV (11:50)
--- OUTSIDE RECORDS SUMMARY | 2024-02-05 11:50 | XMS_ITS | Encounter Summary ---
Author Organization [facility] Address [address] [place] [address] Care Team Providers Care Title Vehicle Service Attendant Name Role Phone Alvaro Clark MD Unavailable Yessica Mcleod PA-C Unavailable Bhavin Gardner Primary Care Provider [phone] Reason for Visit * Reason Onset Date Comments Patient/info Update 01/18/2024 Encounter Details Date Type Department Care Team (Late st Contact Info) Description 01/18/[address] [facility] [place] [address] Alvaro Clark MD 420 [facility] [address] [place] [address] Patient/info Update Social History Tobacco Use Types Packs/Day Years [...] Telephone Encounter - Jami Oseguera RN - 01/19/2024 9:53 AM CDT Pt called back. He was notified with recommendations per Dr Clark. Pt will stop keflex and start taking bactrim today. Pt reports that he is feeling much better today. Patient verbalized understanding and agreement with plan. Patient was instructed to call the clinicwith any questions, concerns, or worsening symptoms. Jami Oseguera RN on 01/19/2024 at 9:53 AM * Telephone Encounter - Jami Oseguera RN - 01/19/2024 9:12 AM CDT Images from the original note were not included. Alvaro Clark MD Kraus, Tanner, RN15 hours ago (6:00 PM) LIU Let's switch him to Bactrim. For 10 days. Charlie Watkins RN Sw Cancer Rdxcny01 minutes ago (8:51 AM) TK Are we able to call him and inform him Dr. Clark would like patient to start 10 day course of bactrim instead of Keflex. -Charlie GONZALEZ Attempted to reach pt, but he did not answer. Left message for pt to return call. Jami Oseguera RN on 01/19/2024 at 9:15 AM * Telephone Encounter - Jami Oseguera RN - 01/18/2024 2:06 PM CDT Pt is calling with an update for care team. States that he developed fever and chills yesterday. He went to [place] [facility] early this morning around 2:00 am. Temperature in ER was 100.5 degrees F. He was diagnosed with UTI. Was given rocephin and IV fluids in ER. Was also given Rx for keflex 500mg TID x 7 days that he will start this evening. Pt states that ER provider told him that he should start to notice improvement in his symptoms within 24-48 hours. Right now, pt reports that he just feels weak and tired. Speech Correction Consultant advised pt to continue to drink fluids and take keflex as directed. Will route update to care team. Reviewed emergent symptoms that would warrant return call to clinic or evaluation in ER. Patient verbalized understanding and agreement with plan. Patient was instructed to call the clinicwith any questions, concerns, or worsening symptoms. Jami Oseguera RN on 01/18/2024 at 2:09 PM * Addendum Note - Charlie Almonte RN - 01/18/2024 2:06 PM CDTAddended by: CHARLIE ALMONTE on: 01/19/2024 08:50 AM Modules accepted: Orders documented in this encounter Plan of Treatment Upcoming Encounters Date Type Department Care Team (Late st Contact Info) Description 02/11/2024 11:00 AM CDT Infusion Therapy Visit [address] [place] [address] Ky Torres MD [address] [place] [address] [phone] 03/11/2024 1:00 PM CDT Lab [place] [address] [place] [address] Yessica Mcleod PA-C [address] [place] [address] [phone] 03/11/2024 1:00 PM CDT Infusion Therapy Visit [place] [address] [place] [address] 03/11/2024 1:30 PM CDT Oncology Visit [place] [address] [place] [address] Dylan Guerin PA [address] [place] [address] [phone] Yessica Mcleod PA-C 909 [place], [place] [address]765 04/08/2024 1:00 PM SOLE MOLDER Lab [address] [place] [address] Yessica Mcleod PA-C 909 [place] [address] 04/08/2024 1:30 PM SOLE MOLDER Oncology Visit [address] [place] [address] Dylan Guerin PA [address] [place] [address]015 04/08/2024 1:30 PM SOLE MOLDER Infusion Therapy Visit [address] [place] [address] 05/02/2024 10:30 AM SOLE MOLDER Lab [address] [place] [address] Ky Torres MD 420 [facility] [address] [place] [address] 05/02/2024 11:20 AM SOLE MOLDER Appointment [facility] Imaging [address] [place] [address] Ky Torres MD 420 [facility] [address] [place], [place] 6504[address] 05/06/2024 9:30 AM SOLE MOLDER Lab [address] [place] [address] Ky Torres MD [address] [address] 05/06/2024 10:00 AM SOLE MOLDER Oncology Visit [address] [place] [address] Ky Torres MD [address] [place] [address] 05/06/2024 10:30 AM SOLE MOLDER Infusion Therapy Visit [address] [place] [address] Ky Torres MD [address] [place] [address] documented as of this encounter Visit Diagnoses Diagnosis Urinary tract infection- Primary Urinary tract infection, site not specified documented in this encounter Care Teams Title Vehicle Service Attendant Relationship Specialty Start Date End Date Votel, Bhavin Ford [address] [place] [address] PCP - General Family Medicine 12/28/23 Alvaro Clark MD [address] [phone] Assigned Surgical Provider 07/24/23 Yessica Mcleod PA-C [address] [place] [address] [phone] Assigned Cancer Care Provider 12/22/23 01/21/24 documented as of this encounter
--- OUTSIDE RECORDS SUMMARY | 2024-02-05 11:50 | XMS_ITS | Encounter Summary ---
Author Organization [place] Address [address] [place] [address] Care Team Providers Care Cleaner Industrial Name Role Phone Alvaro Clark MD Unavailable Yessica Mcleod PA-C Unavailable Bhavin Gardner Primary Care Provider [phone] Reason for Referral * Diagnostic Imaging CT Scan (Routine) - Closed Specialty Diagnoses / Procedures Referred By Virgil ca Referred To Contact Radiology. 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) Procedures CT Chest/Abdomen/Pelvis w Contrast Yessica Mcleod PA-C 627 [place] [address]: [phone] Scan [address] [place] [address] Referral ID Status Reason Start Date Expiration Date Visits Re quested Visits Authorized [id number] Closed 11/27/2023 11/26/2024 1 1 Encounter Details Date Type Department Care Team (Latest Contact Info) Description 01/13/2024 1:02 PM CDT - 01/13/2024 11:59 PM CDT Hospital Encounter [facility] Imaging [address] [place] [address] [place] [address] Yessica Mcleod, RONALD [address] [place] [address] Urothelial cancer (H); Malignant neoplasm of trigone [...] 02/11/2024 11:00 AM CDT Infusion Therapy Visit [place] [address] [place] [address] Ky Torres MD [address] 412685 03/11/2024 1:00 PM CDT Lab [place] [address] [place] [address] Yessica Mcleod PA-C [address] [place] [address] 03/11/2024 1:00 PM CDT Infusion Therapy Visit [place] [address] [place] [address] 03/11/2024 1:30 PM CDT Oncology Visit [address] [place] [address] Dylan Guerin PA 909 [place], [place] [address] Yessica Mcleod PA-C 9 [place], [place] 356305 04/08/2024 1:00 PM METAL CAN INSPECTOR Lab [address] [place] [address] Yessica Mcleod PA-C [address] [place] [address] [id number] 04/08/2024 1:30 PM METAL CAN INSPECTOR Oncology Visit [place] [address] [place] [address] [place] [address] Dylan Guerin PA 9 [place], [place] 269115 04/08/2024 1:30 PM METAL CAN INSPECTOR Infusion Therapy Visit [place] [address] [place] [address] [place] [address] 05/02/2024 10:30 AM METAL CAN INSPECTOR Lab [address] [place] [address] Ky Torres MD [address] [place] [address] 780985 05/02/2024 11:20 AM METAL CAN INSPECTOR Appointment [facility] Imaging [address] [place] [address] [place] [address] Ky Torres MD 420 [facility] 480 [place] [address] 05/06/2024 9:30 AM METAL CAN INSPECTOR Lab [address] [place] [address] Ky Torres MD 420 [facility] [address] [place] [address] 05/06/2024 10:00 AM METAL CAN INSPECTOR Oncology Visit [address] [place] [address] Ky Torres MD 420 [facility] [address] [place] [address] 05/06/2024 10:30 AM METAL CAN INSPECTOR Infusion Therapy Visit [address] [place] [address] Ky Torres MD 420 [facility] [address] [place] [address] documented as of this encounter Procedures Procedure [...] mLs documented in this encounter Care Teams Cleaner Industrial Relationship Specialty Start Date End Date Votel, Bhavin Ford [address] [place] [address] PCP - General Family Medicine 12/28/23 Alvaro Clark MD 420 [facility] [address] [place] [address] Assigned Surgical Provider 07/24/23 Yessica Mcleod PA-C [address] [place] [address] Assigned Cancer Care Provider 12/22/23 01/21/24 documented as of this encounter
--- OUTSIDE RECORDS SUMMARY | 2024-02-05 11:50 | XMS_ITS ---
Author Organization [place] Address [address] [place] [address] Care Team Providers Care Donkey Engine Firer/Fireman Name Role Phone Alvaro Clark MD Unavailable Bhavin Gardner Primary Care Provider [phone] Ky Torres MD Unavailable [phone] Active Problems Problem Noted Date Diagnosed Date Small bowel obstruction 12/27/2023 Bladder cancer 12/22/2023 Cancer Staging:Pathologic stage from 01/15/2024:Stage IIIA(ypT4a, pN0, cM0) - Signed by Ky Torres MD on 01/18/2024 Urothelial cancer 09/06/2023 Lesion of bladder 07/10/2023 Current Oncology Plans OP ONC Bladder Cancer - Nivolumab* Plan Start Date:01/15/2024 Plan Provider:Ky Torres MD Linked Problems Bladder cancer (H) Treatment Medications Current Day (Day [...] treatments are documented for this patient in [facility]. Treatments may have been administered in another system. Lifetime Dose Tracking * Chemical Lifetime Dose Automatic Entry Manual Entr y Doxorubicin 117.077 mg/m2 (240 mg) 117.077 mg/m2 (240 mg) 0 mg/m2 (0 mg) Total Air Kerma 2 mGy 2 mGy 0 mGy Fluoro Time 0.3 Minutes 0.3 Minutes 0 Minutes
--- OUTSIDE RECORDS SUMMARY | 2024-02-05 11:50 | XMS_ITS | Encounter Summary ---
Author Organization [facility] Address [address] [place] [address] Care Team Providers Care Metal Casket Maker Name Role Phone Alvaro Clark MD Unavailable Yessica Mcleod PA-C Unavailable Bhavin Gardner Primary Care Provider [phone] Reason for Visit * Reason Onset Date Comments Symptoms 01/15/2024 Encounter Details Date Type Department Care Team (Late st Contact Info) Description 01/15/2024 Telephone [facility] [address] 200 [facility] [place] [address] Alvaro Clark MD [address] [facility] [address] [place] [address] Symptoms Social History Tobacco Use [...] encounter Miscellaneous Notes * Telephone Encounter - Charlie Almonte RN - 01/18/2024 12:32 PM CDT [facility]: Urology Financial Reporting Director faxed DME order to [facility] for CIC supplies/irrigation orders. Faxed confirmed via RightFax 01/18/24 Charlie Almonte RN, BSN. RN Rn Peritoneal Dialysis [facility] [phone] documented in this encounter Plan of Treatment Upcoming Encounters Date Type Department Care Team (Late st Contact Info) Description 02/11/2024 11:00 AM CDT Infusion Therapy Visit [address] [place] [address] Ky Torres MD [address] 252765 03/11/2024 1:00 PM CDT Lab [address] [place] [address] Yessica Mcleod PA-C [address] [place] [address] [phone] 03/11/2024 1:00 PM CDT Infusion Therapy Visit [place] [address] [place] [address] 03/11/2024 1:30 PM CDT Oncology Visit [address] [place] [address] Dylan Guerin PA [address] [place], [place] [phone] Yessica Mcleod PA-C 904 [place], [place] [address] 04/08/2024 1:00 PM SENIOR MECHANICAL DESIGNER Lab [address] [place] [address] Yessica Mcleod PA-C [address] [place] [address] 04/08/2024 1:30 PM SENIOR MECHANICAL DESIGNER Oncology Visit [address] [place] [address] Dylan Guerin PA [address] [place] [address] 04/08/2024 1:30 PM SENIOR MECHANICAL DESIGNER Infusion Therapy Visit [address] [place] [address] 05/02/2024 10:30 AM SENIOR MECHANICAL DESIGNER Lab [address] [place] [address] Ky Torres MD [address] [address] 05/02/2024 11:20 AM SENIOR MECHANICAL DESIGNER Appointment [facility] Imaging [address] [place] [address] Ky Torres MD [address] 297[address] 05/06/2024 9:30 AM SENIOR MECHANICAL DESIGNER Lab [address] [place] [address] Ky Torres MD 420 [facility] [address] [place] [address] 05/06/2024 10:00 AM SENIOR MECHANICAL DESIGNER Oncology Visit [facility] [address] [place] [address] Ky Torres MD 420 [facility] [address] [place] [address] 05/06/2024 10:30 AM SENIOR MECHANICAL DESIGNER Infusion Therapy Visit [facility] [address] [place] [address] Ky Torres MD [address] [address] documented as of this encounter Visit Diagnoses Not on filedocumented in this encounter Care Teams Metal Casket Maker Relationship Specialty Start Date End Date Votel, Bhavin Ford [address] [place] [address] PCP - General Family Medicine 12/28/23 Alvaro Clark MD 420 [facility] 394 [place], [place] 6[address]145 Assigned Surgical Provider 07/24/23 Yessica Mcleod PA-C [address] [place] [address] 360665 Assigned Cancer Care Provider 12/22/23 01/21/24 documented as of this encounter
--- OUTSIDE RECORDS SUMMARY | 2024-02-05 11:50 | XMS_ITS | Encounter Summary ---
Author Organization [facility] Address [address] [place] [address] Care Team Providers Care Iv Rn Name Role Phone Alvaro Clark MD Unavailable Yessica Mcleod PA-C Unavailable Bhavin Gardner Primary Care Provider [phone] Reason for Visit * Reason Comments Oncology Clinic Visit Encounter Details Date Type Department Care Team (Late st Contact Info) Description 01/15/2024 10:30 AM CDT Office Visit [facility] [address] [place] [address] [facility] [address] Alvaro Clark MD 420 [facility] [address] [place] [address] Urothelial cancer (H) (Primary Dx); Urinary retention Social History Tobacco Use Types Packs/Day Years [...] above Alvaro Clark MD Department of Urology [facility] * Charlie Almonte RN - 01/15/2024 10:30 AM CDT Chief Complaint Patient presents with Oncology Clinic Visit Patient Active Problem List Diagnosis Lesion of bladder Urothelial cancer (H) Bladder cancer (H) Small bowel obstruction (H) Allergies Allergen Reactions Penicillins Nausea and Vomiting Current Outpatient Medications Medication Sig Dispense Refill acetaminophen (TYLENOL) 325 MG tablet Take 2 tablets (650 mg) by mouth every 4 hours as needed for other (For optimal non-opioid multimodal pain management to improve pain control.) 50 tablet 0 acetaminophen-caffeine (EXCEDRIN TENSION HEADACHE) 500-65 MG TABS Take 2 tablets by mouth every 6 hours as needed for mild pain (PRN HEADACHE) apixaban ANTICOAGULANT (ELIQUIS) 2.5 MG tablet Take 1 tablet (2.5 mg) by mouth 2 times daily 58 tablet 0 ciprofloxacin (CIPRO) 250 MG tablet Take 1 tablet (250 mg) by mouth 2 times daily 1 tablet 0 diphenhydrAMINE HCl (BENADRYL ALLERGY PO) Take 1 tablet by mouth as needed gabapentin (NEURONTIN) 100 MG capsule Take 1 capsule (100 mg) by mouth 3 times daily as needed for other (post op pain) 14 capsule 0 methocarbamol (ROBAXIN) 750 MG tablet Take 1 tablet (750 mg) by mouth every 6 hours as needed for muscle spasms 14 tablet 0 polyethylene glycol (MIRALAX) 17 GM/Dose powder Take 17 g by mouth daily 510 g 0 senna-docusate (SENOKOT-S/PERICOLACE) 8.6-50 MG tablet Take 1 tablet by mouth 2 times daily 40 tablet 0 nitroFURantoin macrocrystal-monohydrate (MACROBID) 100 MG capsule Take 1 capsule (100 mg) by mouth daily (Patient not taking: Reported on 01/15/2024) 19 capsule 0 Social History Tobacco Use Smoking status: Former Current packs/day: 0.00 Average packs/day: 1.5 packs/day for 30.0 years (45.0 ttl pk-yrs) Types: Cigarettes Start date: 1979 Quit date: 2010 Years since quittin.6 Passive exposure: Past Smokeless tobacco: Never Substance Use Topics Alcohol use: Never Drug use: Never Oleg Richard comes into clinic today 01/15/24 at the request of Alvaro Clark for CIC teaching. Patient diagnosis: Bladder Cancer Post Cystectomy Neobladder Creation This service provided today was under the direct supervision of Alvaro Clark, who was available if needed. Oleg Richard presented to clinic today to be taught CIC. Patient to catheterize with a 16 Fr self intermittent catheter 3-4 times daily due to chronic urinary retention/incontience + flushing 100cc too remove mucus from new neobladder. Patient educated about the importance of hand hygiene before and after catheterizing. Patient then taught to cleanse urethral meatus. Patient taught CIC in normalclean fashion with sterile 16 Fr self intermittent catheter. Patient tolerated this without complications noted. Patient was informed to contact us with any questions or concerns. Pharmacy Benefits Coordinator faxed medical DME order for home CIC supplies. Charlie Almonte RN, BSN. RN Marketing Admin [facility] [phone] documented in this encounter Nursing Notes * [...] not needed today. Pharmacy name entered into [facility]: [place], [place] [facility] Fra[facility] Screening: Is the patient here for a new oncology consult visit in cancer care? 2. No Clinical concerns: f/u Lori Portillo CMA documented in this encounter Miscellaneous Notes * Addendum Note - Charlie Almonte RN - 01/15/2024 10:30 AM CDTAddended by: CHARLIE ALMONTE on: 01/18/2024 12:30 PM Modules accepted: Orders documented in this encounter Plan of Treatment Upcoming Encounters Date Type Department Care Team (Late st Contact Info) Description 02/11/2024 11:00 AM CDT Infusion Therapy Visit [place] [address] [place] [address] Ky Torres MD [address] 0975[address] 03/11/2024 1:00 PM CDT Lab [place] [address] [place] [address] Yessica Mcleod, PAJose Luis [address] [place] [address] 03/11/2024 1:00 PM CDT Infusion Therapy Visit [place] [address] [place] [address] 03/11/2024 1:30 PM CDT Oncology Visit [place] [address] [place] [address] Dylan Guerin PA 909 [place] [address] Yessica Mcleod PA-C 909 [place] [address] 04/08/2024 1:00 PM BARREL PLATER Lab [address] [place] [address] Yessica Mcleod PA-C [address] [place] [address] 265565 04/08/2024 1:30 PM BARREL PLATER Oncology Visit [address] [place] [address] Dylan Guerin PA [address] [place] [address] 767015 04/08/2024 1:30 PM BARREL PLATER Infusion Therapy Visit [address] [place] [address] 05/02/2024 10:30 AM BARREL PLATER Lab [address] [place] [address] Ky Torres MD [address] [address] 05/02/2024 11:20 AM BARREL PLATER Appointment [facility] Imaging [address] [place] [address] Ky Torres MD 420 [facility] [address] [place] [address] 05/06/2024 9:30 AM BARREL PLATER Lab [address] [place] [address] Ky Torres MD 420 [facility] [address] [place] [address] 05/06/2024 10:00 AM BARREL PLATER Oncology Visit [address] [place] [address] Ky Torres MD [address] [address] 05/06/2024 10:30 AM BARREL PLATER Infusion Therapy Visit [address] [place] [address] Ky Torres MD [address] [address] documented as of this encounter Visit Diagnoses Diagnosis Urothelial cancer (H)- Primary Malignant neoplasm of other specified sites of urinary organs Urinary retention Retention of urine, unspecified documented in this encounter Care Teams Iv Rn Relationship Specialty Start Date End Date Votel, Bhavin Ford [address] [place] [address] PCP - General Family Medicine 12/28/23 Alvaro Clark MD 420 [facility] 394 [place] [address] Assigned Surgical Provider 07/24/23 Yessica Mcleod, PAJannetC 9 [place] [address] Assigned Cancer Care Provider 12/22/23 01/21/24 documented as of this encounter
--- OUTSIDE RECORDS SUMMARY | 2024-02-05 11:50 | XMS_ITS | Encounter Summary ---
Author Organization [facility] [place] Address [address] [place] [address] Care Team Providers Care Entry Level Truck Driver Name Role Phone Alvaro Clark MD Unavailable Yessica Mcleod PA-C Unavailable Bhavin Gardner Primary Care Provider [phone] Reason for Referral * Diagnostic Imaging CT Scan (Routine) - Authorized Specialty Diagnoses / Procedures Referred By Contkatlyn t Referred To Contact Radiology. Diagnoses Urothelial cancer (H) Prostate cancer (H) Procedures CT Chest/Abdomen/Pelvis w Contrast Ky Torres MD [address] [facility] [address] [address] Referral ID Status Reason Start Date Expiration Date V isits Requested Visits Authorized [id number] Authorized 01/18/2024 01/17/2025 1 1 Reason for Visit * Reason Comments Oncology Clinic Visit Encounter Details Date Type Department Care Team (Late st Contact Info) Description 01/15/2024 11:30 AM CDT Oncology Visit [facility] [address] [facility] [place] [phone] Ky Torres MD [address] [place] [facility] [address] [place] [address] Urothelial cancer (H) (Primary Dx); Prostate cancer (H) Social History Tobacco Use Types [...] documented in this encounter Progress Notes * Ky Torres MD - 01/15/2024 11:30 AM CDTSummary: High risk muscle invasive urothelial cancer post neoadjuvant chemotherapy with ddMVAC followed by cystoprostatectomy ypT4N0 disease [facility] HEMATOLOGY AND ONCOLOGY FOLLOW-UP VISIT NOTE PATIENT NAME: Oleg Richard DATE OF VISIT: Jan 15, 2024 DATE OF : 1960 REFERRING PROVIDER: Alvaro Clark MD [address] [address] CANCER TYPE: Urothelial cancer from bladder STAGE: Cancer Staging Bladder cancer (H) Staging form: Urinary Bladder, AJCC 8th Edition - Pathologic stage from 01/15/2024: Stage IIIA (ypT4a, pN0, cM0) - Signed by Ky Torres MDon 01/18/2024 TREATMENT SUMMARY: Oleg presented with urinary retention to the [facility] ED on 05/26/23. He had urinary urgency andfrequency for the previous few weeks. He was noted to have urinary retention and blood in urine without any infection. He had a CT scan done in ED which showed decompressed bladder with parry and wasotherwise unremarkable. He then was seen by Carolina Arrieta in urology at [facility] and referred for cystoscopy. He had cystoscopy done in clinic by Dr. Clark on 07/10/23 and then called in for repeat blue light cystoscopy with TURBT done on 07/22/23 which confirmed high-grade muscle invasive papillary urothelial carcinoma with focal glandular differentiation. He was referred to medical Oncology and recommended neoadjuvant chemotherapy with ddMVAC. He completed 4 cycles of ddMVAC. Chemotherapy 09/29/2023 10:29 AM 10/13/2023 10:55 AM 10/28/2023 9:55 AM 11/10/2023 9:53 AM Day, Cycle Day 1, Cycle 1 Day 1, Cycle 2 Day 1, Cycle 3 Day 1, Cycle 4 CISplatin (PLATINOL) IV 140 mg 140 mg 140 mg 140 mg DOXOrubicin (ADRIAMYCIN) IVP 30 mg/m2 30 mg/m?? 30 mg/m?? 30 mg/m?? methotrexate IVP 30 mg/m2 30 mg/m?? 30 mg/m?? 30 mg/m?? Vinblastine (Velban) IV 3 mg/m?? 3 mg/m?? 3 mg/m?? 3 mg/m?? He underwent radical cystoprostatectomy with neobladder creation on 12/22/23. Pathology from this resection revealed residual high grade urothelial cancer that extended to the prostatic stroma. Additionally incidental prostate cancer was identified. He was staged as ypT4N0 disease. CURRENT INTERVENTIONS: Post neoadjuvant chemotherapy followed by radical cystoprostatectomy on 12/22/23 SUBJECTIVE Oleg Richard is being followed for locally advanced bladder cancer post neoadjuvant chemotherapy and surgery. Oleg is being followed post surgery with restaging scans. He has mostly recovered from side effects of his chemotherapy and surgery. He comes in for a scheduled follow up visit. PAST MEDICAL HISTORY Past Medical History: Diagnosis Date Lesion of bladder Migraine 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 (H) CURRENT OUTPATIENT MEDICATIONS Current Outpatient Medications Medication Sig Dispense Refill [...] needed for muscle spasms 14 tablet 0 nitroFURantoin macrocrystal-monohydrate (MACROBID) 100 MG capsule Take 1 capsule (100 mg) by mouth daily (Patient not taking: Reported on 01/15/2024) 19 capsule 0 polyethylene glycol (MIRALAX) 17 GM/Dose powder Take 17 g by mouth daily 510 g 0 senna-docusate (SENOKOT-S/PERICOLACE) 8.6-50 MG tablet Take 1 tablet by mouth 2 times daily 40 tablet 0 No current facility-administered medications for this visit. ALLERGIES Allergies Allergen Reactions Penicillins Nausea and Vomiting REVIEW OF SYSTEMS As above in the HPI, o/w complete 12-point ROS was negative. PHYSICAL EXAM BP 115/68 Pulse 72 Temp 97.1 ??F (36.2 ??C) (Tympanic) Resp 18 Wt 78.6 kg (173 lb 4.5 oz) SpO2 97% BMI 26.35 kg/m?? LABORATORY AND IMAGING STUDIES Recent Labs Lab Test 01/13/24 1259 12/29/23 0728 12/28/23 1153 12/27/23 0737 12/25/23 0650 NA 137 135 134* 136 136 134* POTASSIUM 3.9 4.0 4.0 4.1 4.1 4.5 CHLORIDE 102 101 99 101 101 100 CO2 25 26 28 25 25 28 ANIONGAP 10 8 7 10 10 6* BUN 15.5 9.0 11.8 20.1 20.9 CR 0.87 0.79 0.76 0.86 0.89 GLC 117* 120* 118* 114* 113* JUANY 8.7* 8.4* 8.0* 8.0* 8.3* Recent Labs Lab Test 12/28/23 1153 12/24/23 0616 11/10/23 0733 10/27/23 1225 10/12/23 1159 MAG 2.0 1.8 1.7 1.9 1.9 PHOS 2.8 2.9 -- -- -- Recent Labs Lab Test 01/15/24 1250 01/13/24 1259 12/29/23 0728 12/28/23 1153 12/27/23 0737 12/11/23 0832 11/10/23 0733 10/27/23 1225 10/12/23 1159 WBC 8.2 8.3 8.9 9.6 9.0 < > 14.8* 17.9* 13.1* HGB 10.2* 9.3* 9.8* 9.5* 9.0* < > 11.4* 12.8* 13.1* PLT 230 252 291 254 235 < > 158 194 183 MCV 92 91 93 93 93 < > 87 87 87 NEUTROPHIL 79 75 -- -- -- -- 63 76 71 < > = values in this interval not displayed. Recent Labs Lab Test 01/13/24 1259 11/10/23 0733 10/27/23 1225 BILITOTAL <0.2 <0.2 <0.2 ALKPHOS 67 142 136 ALT 19 21 21 AST 24 23 20 ALBUMIN 3.4* 3.8 3.7 No results found for: TSH No results for input(s): CEA in the last 92306 hours. Results for orders placed or performed during the hospital encounter of 01/13/24 CT Chest/Abdomen/Pelvis w Contrast Narrative CT CHEST/ABDOMEN/PELVIS W CONTRAST 01/13/2024 1:26 PM [...] stents. The neobladder is decompressed with a Parry catheter. A left retroperitoneal fluid collection overlying [...] MUSCULOSKELETAL: No suspicious lesions within the bones. Impression IMPRESSION: 1. Interval postoperative changes of cystectomy [...] the chest or abdomen. DAWSON KNOWLES MD Collected 12/22/2023 8:54 AM Status: Final result Visible to patient: Yes (not seen) 1 Result Note Component Ref Range & Units Resulting Agency Case Report Surgical Pathology Report Case: [id number] Authorizing Provider: Alvaro Clark MD Collected: 12/22/2023 08:54 AM Ordering Location: [facility]IN OR Received: 12/22/2023 09:00 AM Pathologist: Marlin Tenorio MD Intraop: Tracie Gonzalez MD Specimens: A) - Ureter, Left, Left distal ureteral margin B) - Ureter, Right, Right distal ureteral margin C) - Urethra, urethral margin D) - Urinary Bladder, bladder, prostate, and seminal vesicles E) - Lymph Node(s), Pelvis, Left, Left pelvic lymph node F) - Lymph Node(s), Pelvis, Right, right pelvic lymph nodes G) - Ureter, Left, left proximal ureteral margin H) - Ureter, Right, right proximal ureteral marigin Final Diagnosis A. Left distal ureter margin, excision: - Negative for malignancy B. Right distal ureter margin, excision: - Negative for malignancy C. Urethral margin, excision: - Negative for malignancy D. Bladder and prostate, radical cystoprostatectomy: - Invasive high grade urothelial carcinoma status post chemotherapy - Transmucosal prostatic stroma involvement by tumor. Please see comment - Incidental prostatic adenocarcinoma, Ratcliff score 7 (3+4) - Margins are negative [...] to a previously preliminary verified report. Comment [facility] Immunohistochemistry analysis of CK5 and CHARLIE-3 was performed and supports the above diagnosis of invasion urothelial carcinoma. Comment: This is an appended report. These results have been appended to a previously preliminary verified report. Synoptic Checklist URINARY BLADDER: Cystectomy, Anterior Exenteration 8th [...] pT Category pT2 pN Category pN0 . Clinical Information ASSESSMENT AND PLAN Muscle invasive urothelial cancer post neoadjuvant ddMVAC and cystoprostatectomy with neobladder [id number] disease *prostate stroma involvement Incidental prostate cancer (Ellen 3+4) Previous smoking history ECOG PS 1 Oleg is accompanied by his at this clinic visit. He has recovered adequately from his surgeryand previous neoadjuvant chemotherapy. He is doing well clinically. I reviewed the findings from his pathology post surgery. He had locally advanced bladder cancer which had invaded into the prostate. He had significant residual disease despite aggressive neoadjuvant chemotherapy. Pathology complete response of is associated with good prognosis. I reviewed the option of adjuvant nivolumab as per the Checkmate 274 trial. I personally hide number of patients on this study. Incidentally for the relatively small number of patients I had, almost every patient in the control arm had disease progression while patient is in the treatment arm remained disease-free. The overall clinical trial did show improvement in disease-free survival and overall survival. I extensively reviewed immunotherapy with a PD-1 inhibitor - nivolumab. I explained to them the concept of checkpoint inhibitor with a physiological role to sustain an effective immune response. PD-L1 is expressed on healthy, normal tissue in the area of trauma which binds to PD1 on the T cells to inhibit it. This ensures that the immune response is limited to tissue and the infecting agentsand does not extend over to the normal tissue. The tumor uses some of these checks and balances to its advantage expressing PDL1 and successfully evades the immune system. Nivolumab would permit anti-tumor response if there are anti-tumor white cells present. However this places patient at risk forsome autoimmunity which when it involves skin give rash and is called dermatitis, with gut it presents with diarrhea and is called colitis, and with lung it gives shortness of breath and is called pneumonitis. Similarly, depending on the affected tissue, we might have hepatitis, nephritis, thyroidit is, hypophysitis and so on. Nivolumab is administered intravenously every 4 weeks as an outpatient. For the most part, only a few percentage of patients has substantial side effects; for example, pneumonitis or hepatitis. In these cases, we identify and act aggressively. We can use oral steroids to suppress the autoimmune response. The antitumor response is known to persist even beyond that. We would continue to treat as long as there are no unacceptable side effects and without significant disease progression up to a year. If there is no evidence of disease beyond that, I would hold therapy. We will continue to monitor him while he is on therapy and beyond. I will initially follow him withthe restaging scans every 12 weeks. After the first couple of years we can space out the visits to every 4 to 6 months. I will monitor PSA for his incidental prostate cancer. It would be highly unusual for him to have recurrent or persistent prostate cancer. The longitudinal plan of care for the diagnosis(es)/condition(s) as documented were addressed during this visit. Due to the added complexity in care, I will continue to support Oleg in the subsequent management and with ongoing continuity of care. Over 45 min spent on day of visit including review of tests, obtaining/reviewing separately obtained history/physical exam, counseling patient, ordering medications/tests/procedures, communicating with PCP/consultants, and documenting in electronic medical record. Ky Torres Central Service Technician and Medical Oncologist [facility] documented in this encounter Plan of Treatment Upcoming Encounters Date Type Department Care Team (Late st Contact Info) Description 02/11/2024 11:00 AM CDT Infusion Therapy Visit [place] [address] [place] [phone] Ky Torres MD [address] [address] 03/11/2024 1:00 PM CDT Lab [place] [address] [place] [phone] Yessica Mcleod, RONALD [address] [place] [address] 03/11/2024 1:00 PM CDT Infusion Therapy Visit [place] [address] [place] [address] 03/11/2024 1:30 PM CDT Oncology Visit [place] [address] [place] [address] Dylan Guerin PA [address] [place] [address] Yessica Mcleod PA-C [address] [place] [address] 04/08/2024 1:00 PM MANAGER METAL Lab [address] [place] [address] Yessica Mcleod PA-C [address] [place] [address] 04/08/2024 1:30 PM MANAGER METAL Oncology Visit [address] [place] [phone] Dylan Guerin PA [address] [place] [phone] 04/08/2024 1:30 PM MANAGER METAL Infusion Therapy Visit [address] [place] [phone] 05/02/2024 10:30 AM MANAGER METAL Lab [address] [place] [phone] Ky Torres MD 420 [facility] [address] [place] [address] 05/02/2024 11:20 AM MANAGER METAL Appointment [facility] Imaging [address] [place] [phone] Ky Torres MD [address] [place] [address] [facility] [address] [place] [address] 05/06/2024 9:30 AM MANAGER METAL Lab [address] [place] [address] Ky Torres MD [address] [place] [facility] [address] [place] [address] 05/06/2024 10:00 AM MANAGER METAL Oncology Visit [address] [place] [phone] Ky Torres MD 420 [facility] [address] [place] [address] 05/06/2024 10:30 AM MANAGER METAL Infusion Therapy Visit [address] [place] [phone] Ky Torres MD 420 [facility] [address] [place] [address] Scheduled Orders Name Type Priority Associated Diagnoses Order Schedule CT Chest/Abdomen/Pelvis w Contrast Imaging Routine Urothelial cancer (H) Prostate cancer (H) Expected: 04/19/2024 (Approximate), Expires: 01/17/2025 Cytology, non-gynecologic Pathology and Cytology Routine Urothelial cancer (H) Prostate cancer (H) 5 Occurrences starting 01/18/2024 until 01/17/2025 PSA tumor marker Lab Routine Urothelial cancer (H) Prostate cancer (H) 5 Occurrences starting 01/18/2024 until 01/17/2025 Testosterone total Lab Routine Urothelial cancer (H) Prostate cancer (H) 5 Occurrences starting 01/18/2024 until 01/17/2025 CBC with Platelets & Differential Lab Panel Routine Urothelial cancer (H) Prostate cancer (H) 12 Occurrences starting 01/18/2024 until 01/17/2025 Comprehensive metabolic panel Lab Routine Urothelial cancer (H) Prostate cancer (H) 12 Occurrences starting 01/18/2024 until 01/17/2025 Lactate Dehydrogenase Lab Routine Urothelial cancer (H) Prostate cancer (H) 5 Occurrences starting 01/18/2024 until 01/17/2025 TSH with free T4 reflex Lab Routine Urothelial cancer (H) Prostate cancer (H) 9 Occurrences starting 01/18/2024 until 01/17/2025 documented as of this encounter Procedures Procedure [...] - MICRO GENERAL ORDERABLES [facility] Inf. Diseases Diag. Lab [address] [facility], Room [address] [place] [address] documented in this encounter Visit Diagnoses Diagnosis Urothelial cancer (H)- Primary Malignant neoplasm of other specified sites of urinary organs Prostate cancer (H) Malignant neoplasm of prostate documented in this encounter Care Teams Entry Level Truck Driver Relationship Specialty Start Date End Date Votel, Bhavin Ford [address] [place] [address] PCP - General Family Medicine 12/28/23 Alvaro Clark MD [address] [place] [address] [address] [place], [place] [phone] Assigned Surgical Provider 07/24/23 Yessica Mcleod, PAJannetC [address] [place] [phone] Assigned Cancer Care Provider 12/22/23 01/21/24 documented as of this encounter
--- OUTSIDE RECORDS SUMMARY | 2024-02-05 11:50 | XMS_ITS | Encounter Summary ---
Author Organization [facility] Address [address] [place] [address] Care Team Providers Care Presser Cotton Ginning Name Role Phone Alvaro Clark MD Unavailable Bhavin Gardner Primary Care Provider [phone] Ky Torres MD Unavailable [phone] Reason for Visit * Reason Onset Date Comments Symptoms 02/05/2024 Encounter Details Date Type Department Care Team (Late st Contact Info) Description 02/05/2024 Telephone [facility] [address] [facility] [place] [address] Ky Torres MD 420 [facility] [address] [place] [address] Symptoms Social History Tobacco Use [...] Telephone Encounter - Jami Oseguera RN - 02/05/2024 8:54 AM CDT Oncology Nurse Triage Situation: Oleg reporting the following symptoms: fever and lower pelvic pain Background: Treating Provider: Dr Torres and Dr Clark Date of last office visit: 01/15/2024 Recent Treatments:scheduled to start opdivo on 02/11/2024 12/22/2023: 1. Radical cystoprostatectomy 2. Standard bilateral pelvic lymph node dissection. 3. Modified William Neobladder 4. Bilateral open ureteral stent placement. 5. Bilateral regional block using onQ catheters Assessment: Pt is calling. States that he is not feeling well and is concerned he may have a UTI. Symptoms started today. Reports that his temperature was 100.6 earlier today and that he has been sweating and then having chills. Denies dysuria, urinary frequency, urgency, hematuria, nausea/vomiting, diarrhea/constipation. States that he does have a runny nose at times, but denies any other URI symptoms. States that he does not have pain when he urinates, but has some lower pelvic discomfort at times. States that he feels run down and like he has an infection. States that he felt this way back on 01/18/2024 when he went to the ER and was diagnosed with UTI. Pt lives over one hour away and would prefer to be seen locally. Recommendations: Advised pt to be seen in local urgent care or PCP clinic this morning. Pt states that he will do this and then call back with update. Patient verbalized understanding and agreement with plan. Patient was instructed to call the clinicwith any questions, concerns, or worsening symptoms. Jami Oseguera RN on 02/05/2024 at 9:03 AM documented in this encounter Plan of Treatment Upcoming Encounters Date Type Department Care Team (Late st Contact Info) Description 02/11/2024 11:00 AM CDT Infusion Therapy Visit [facility] [address] [place] [phone] Ky Torres MD [address] [place] [address] 480 [place] [address] 03/11/2024 1:00 PM CDT Lab [facility] [address] [place] [address] Yessica Mcleod PA-C [address] [place] [phone] 03/11/2024 1:00 PM CDT Infusion Therapy Visit [place] [address] [facility] [address] [place] [address] 03/11/2024 1:30 PM CDT Oncology Visit [address] [place] [phone] yDlan Guerin PA [address] [place] [phone] Yessica Mcleod PA-C [address] [place] [phone] 04/08/2024 1:00 PM FOREST ECOLOGIST Lab [place] [address] [place] [phone] Yessica Mcleod PA-C [address] [place] [phone] 04/08/2024 1:30 PM FOREST ECOLOGIST Oncology Visit [address] [place] [phone] Dylan Guerin PA [address] [place] [phone] 04/08/2024 1:30 PM FOREST ECOLOGIST Infusion Therapy Visit [place] [address] [place] [address] 05/02/2024 10:30 AM FOREST ECOLOGIST Lab [address] [place] [phone] Ky Torres MD [address] [place] [address] [facility] [address] [place], [place] [address] 05/02/2024 11:20 AM FOREST ECOLOGIST Appointment [facility] Imaging [address] [place] [address] [place] [phone] Ky Torres MD [address] [place] [address] [facility] [address] [place] [address] 05/06/2024 9:30 AM FOREST ECOLOGIST Lab [address] [place] [phone] Ky Torres MD [address] [place] [address] [facility] [address] [place] [address] 05/06/2024 10:00 AM FOREST ECOLOGIST Oncology Visit [address] [place] [phone] Ky Torres MD [address] [place] [address] [facility] [address] [place] [address] 05/06/2024 10:30 AM FOREST ECOLOGIST Infusion Therapy Visit [address] [place] [phone] Ky Torres MD [address] [place] [address] [facility] [address] [place] [address] documented as of this encounter Visit Diagnoses Not on filedocumented in this encounter Care Teams Presser Cotton Ginning Relationship Specialty Start Date End Date Votel, Bhavin Ford [address] [place] [address] PCP - General Family Medicine 12/28/23 Alvaro Clark MD [address] [place] [address] [address] [place] [address] Assigned Surgical Provider 07/24/23 Ky Torres MD [address] [place] [id number] Assigned Cancer Care Provider 01/22/24 documented as of this encounter
--- OUTSIDE RECORDS SUMMARY | 2024-02-05 11:50 | XMS_ITS | Encounter Summary ---
Author Organization [facility] Address [address] [place] [address] Care Team Providers Care Assembler Dc Field Ring Name Role Phone Alvaro Clark MD Unavailable Yessica Mcleod PA-C Unavailable Bhavin Gardner Primary Care Provider [phone] Encounter Details Date Type Department Care Team [...] 02/11/2024 11:00 AM CDT Infusion Therapy Visit [facility] [place] [address] [address] [place] [address] Ky Torres MD [address] [place] [address] 595885 03/11/2024 1:00 PM CDT Lab [facility] [address] [place] [address] Yessica Mcleod PA-C 909 [place], [place] 466135 03/11/2024 1:00 PM CDT Infusion Therapy Visit [address] [place] [address] 03/11/2024 1:30 PM CDT Oncology Visit [address] [place] [address] Dylan Guerin PA 909 [place], [place] [address]265 Yessica Mcleod PA-C [address] [place] [address] [phone] 04/08/2024 1:00 PM TRANSFER AND PUMPHOUSE OPERATOR Lab [address] [place] [address] Yessica Mcleod PA-C [address] [place] [address] [phone] 04/08/2024 1:30 PM TRANSFER AND PUMPHOUSE OPERATOR Oncology Visit [address] [place] [address] Dylan Guerin PA [address] [place] [address] 186635 04/08/2024 1:30 PM TRANSFER AND PUMPHOUSE OPERATOR Infusion Therapy Visit [place] [address] [place] [address] 05/02/2024 10:30 AM TRANSFER AND PUMPHOUSE OPERATOR Lab [address] [place] [address] Ky Torres MD [address] [facility] 480 [place] [address] 05/02/2024 11:20 AM TRANSFER AND PUMPHOUSE OPERATOR Appointment [facility] Imaging [address] [place] [address] Ky Torres MD [address] [facility] 480 [place] [address] 05/06/2024 9:30 AM TRANSFER AND PUMPHOUSE OPERATOR Lab [address] [place] [address] Ky Torres MD [address] [facility] 480 [place], [place] 689985 05/06/2024 10:00 AM TRANSFER AND PUMPHOUSE OPERATOR Oncology Visit [address] [place] [address] Ky Torres MD [address] [facility] 480 [place] [address] 05/06/2024 10:30 AM TRANSFER AND PUMPHOUSE OPERATOR Infusion Therapy Visit [address] [place] [address] Ky Torres MD [address] [facility] 480 [place] [address] documented as of this encounter Visit Diagnoses Not on filedocumented in this encounter Care Teams Assembler Dc Field Ring Relationship Specialty Start Date End Date Votel, Bhavin Ford [address] [place] [address] PCP - General Family Medicine 12/28/23 Alvaro Clark MD [address] [address] Assigned Surgical Provider 07/24/23 Yessica Mcleod PA-C [address] [place] [address] Assigned Cancer Care Provider 12/22/23 01/21/24 documented as of this encounter
--- OUTSIDE RECORDS SUMMARY | 2024-02-05 11:50 | XMS_ITS | Encounter Summary ---
Author Organization [facility] Address [address] [place] [address] Care Team Providers Care Deck Specialist Name Role Phone Alvaro Clark MD Unavailable Bhavin Gardner Primary Care Provider [phone] Ky Torres MD Unavailable [phone] Encounter Details Date Type Department Care Team (Late st Contact Info) Description 01/25/2024 Telephone [facility] [address] 4th [place] [address] Alvaro Clark MD 420 [facility] 394 [place] [address] Social History Tobacco Use Types [...] encounter Miscellaneous Notes * Telephone Encounter - Jorge Alberto Haji - 01/25/2024 1:21 PM CDT Called pt to ask about his symptoms per antibiotic study. He had no UTI symptoms but had a rash on his hand that he wanted to follow up on.Pt was given nursetriage number [phone]. documented in this encounter Plan of Treatment Upcoming Encounters Date Type Department Care Team (Late st Contact Info) Description 02/11/2024 11:00 AM CDT Infusion Therapy Visit [address] [place] [address] Ky Torres MD [address] [place] [address] 03/11/2024 1:00 PM CDT Lab [address] [place] [address] Yessica Mcleod PA-C [address] [place] [address] 937555 03/11/2024 1:00 PM CDT Infusion Therapy Visit [address] [place] [address] 03/11/2024 1:30 PM CDT Oncology Visit [address] [place] [address] Dylan Guerin PA [address] [place] [address] [phone] Yessica Mcleod PA-C [address] [place] [address] [id number] 04/08/2024 1:00 PM TAB CUTTING MACHINE OPERATOR Lab [place] [address] [place] [address] Yessica Mcleod PA-C 909 [place] [address] 04/08/2024 1:30 PM TAB CUTTING MACHINE OPERATOR Oncology Visit [address] [place] [address] Dylan Guerin PA 909 [place] [address] 04/08/2024 1:30 PM TAB CUTTING MACHINE OPERATOR Infusion Therapy Visit [address] [place] [address] 05/02/2024 10:30 AM TAB CUTTING MACHINE OPERATOR Lab [address] [place] [address] Ky Torres MD [address] [address] 05/02/2024 11:20 AM TAB CUTTING MACHINE OPERATOR Appointment [facility] Imaging [address] [place] [address] Ky Torres MD [address] [address] 05/06/2024 9:30 AM TAB CUTTING MACHINE OPERATOR Lab [address] [place] [address] Ky Torres MD 420 [facility] 480 [place] [address] 05/06/2024 10:00 AM TAB CUTTING MACHINE OPERATOR Oncology Visit [facility] [address] [facility] [place] [address] Ky Torres MD 420 [facility] 480 [place] [address] 05/06/2024 10:30 AM TAB CUTTING MACHINE OPERATOR Infusion Therapy Visit [facility] [address] [place] [address] Ky Torres MD [address] [address] documented as of this encounter Visit Diagnoses Not on filedocumented in this encounter Care Teams Deck Specialist Relationship Specialty Start Date End Date Votel, Bhavin Ford [address] [place] [address] PCP - General Family Medicine 12/28/23 Alvaro Clark MD 420 [facility] 394 [place], [place] 932735 Assigned Surgical Provider 07/24/23 Ky Torres MD 420 [facility] 480 [place] [address] Assigned Cancer Care Provider 01/22/24 documented as of this encounter
--- OUTSIDE RECORDS SUMMARY | 2024-02-05 11:50 | XMS_ITS | Encounter Summary ---
Author Organization [place] Address [address] [place] [address] Care Team Providers Care Negative Cutter Name Role Phone Alvaro Clark MD Unavailable Bhavin Gardner Primary Care Provider [phone] Ky Torres MD Unavailable [phone] Reason for Visit * Reason Onset Date Comments Symptoms 01/22/2024 Encounter Details Date Type Department Care Team (Late st Contact Info) Description 01/22/2024 Telephone [facility] [place] [address] [place] [address] [facility] [place] [address] lAvaro Clark MD 420 [facility] 394 [place] [address] Symptoms Social History Tobacco Use [...] Telephone Encounter - Jami Oseguera RN - 01/22/2024 1:15 PM CDT Pt called back with update. States that he was seen in [place] today. Provider who saw pt felt that rashes on his body were hives. He will be taking cetirizine 10 mg daily. Pt is still unsure what may have caused the hives. Reviewed emergent symptoms that would warrant return call to clinic or evaluation in ER. Patient verbalized understanding and agreement with plan. Patient was instructed to call the clinicwith any questions, concerns, or worsening symptoms. Will route update to Dr Clark. Jami Oseguera RN on 01/22/2024 at 1:27 PM * Telephone Encounter - Jami Oseguera RN - 01/22/2024 10:15 AM CDT Oncology Nurse Triage Situation: Oleg reporting the following symptoms: rash on his hands Background: Treating Provider: Dr Clark Date of last office visit: 01/15/[address] Clark Recent Treatments:12/22/2023: Procedures Performed: 1. Radical cystoprostatectomy 2. Standard bilateral pelvic lymph node dissection. 3. Modified William Neobladder 4. Bilateral open ureteral stent placement. 5. Bilateral regional block using onQ catheters Catheters and stents were removed on 01/15/2024. Assessment: Pt is calling with an update. States that he has developed a rash mainly on the palms of his hands. It started when he was with [facility] last week on 01/15/2024 for teaching regarding intermittent catheterization. States that his palms of his hands were glowing red during the teaching. This rash appeared before pt washed his handsor put on gloves. Rash on his palms is currently light red in color. No blisters or bumps. Rash is not painful, but is very itchy. Also states that he has small area of rash on his ankles and shoulder blades. Rash comes and goes. When pt was in clinic on 01/15/2024, [facility] suggested trying benadryl over the counter to see if that would help with rash. Pt reports that benadryl was not helpful so he stopped taking it. Pt denies any new medications, other than antibiotics, but those were started on 01/17 and 01/18, which is after the rash appeared. No new personal products or foods. Denies fever/chills, chest pain, wheezing, weakness, numbness/tingling, or other urgent symptoms currently. States that a few days ago he had some difficulty with swallowing some bites of food, but this has resolved. Also states that he noticed some shortness of breath going up and down the stairs 2 days ago, but this has also resolved. Recommendations: Advised pt that he should be seen in local urgent care or ER for evaluation this morning. Pt states that he agree with plan and will be seen in [place]. Patient verbalized understanding and agreement with plan. Patient was instructed to call the clinicwith any questions, concerns, or worsening symptoms. Will route update to care team. Jami Oseguera RN on 01/22/2024 at 10:44 AM documented in this encounter Plan of Treatment Upcoming Encounters Date Type Department Care Team (Late st Contact Info) Description 02/11/2024 11:00 AM CDT Infusion Therapy Visit [place] [address] [place] [address] [place] [address] Ky Torres MD [address] 9446[address] 03/11/2024 1:00 PM CDT Lab [place] [address] [address] [place] [address] Yessica Mcleod PA-C [address] [place] [address] 03/11/2024 1:00 PM CDT Infusion Therapy Visit [place] [address] [address] [place] [address] 03/11/2024 1:30 PM CDT Oncology Visit [place] [address] [address] [place] [address] Dylan Guerin PA 909 [place], [place] 865045 Yessica Mcleod PA-C [address] [place] [address] 04/08/2024 1:00 PM PUBLICATIONS SALES REPRESENTATIVE Lab [address] [place] [address] Yessica Mcleod PA-C [address] [place] [address] 725995 04/08/2024 1:30 PM PUBLICATIONS SALES REPRESENTATIVE Oncology Visit [address] [place] [address] Dylan Guerin PA [address] [place] [address] [phone] 04/08/2024 1:30 PM PUBLICATIONS SALES REPRESENTATIVE Infusion Therapy Visit [address] [place] [address] 05/02/2024 10:30 AM PUBLICATIONS SALES REPRESENTATIVE Lab [address] [place] [address] Ky Torres MD 420 [facility] 480 [place], [place] 683475 05/02/2024 11:20 AM PUBLICATIONS SALES REPRESENTATIVE Appointment [facility] Imaging [address] [place] [address] [place] [address] Ky Torres MD 420 [facility] 480 [place] [address] 05/06/2024 9:30 AM PUBLICATIONS SALES REPRESENTATIVE Lab [address] [place] [address] Ky Torres MD 420 [facility] 480 [place] [address] 05/06/2024 10:00 AM PUBLICATIONS SALES REPRESENTATIVE Oncology Visit [address] [place] [address] Ky Torres MD [address] [address] 05/06/2024 10:30 AM PUBLICATIONS SALES REPRESENTATIVE Infusion Therapy Visit [address] [place] [address] Ky Torres MD [address] [address] documented as of this encounter Visit Diagnoses Not on filedocumented in this encounter Care Teams Negative Cutter Relationship Specialty Start Date End Date Votel, Bhavin Ford [address] [place] [address] PCP - General Family Medicine 12/28/23 Alvaro Clark MD 420 [facility] 394 [place] [address] Assigned Surgical Provider 07/24/23 Ky Torres MD 420 [facility] 480 [place], [place] [address] Assigned Cancer Care Provider 01/22/24 documented as of this encounter
--- OUTSIDE RECORDS SUMMARY | 2024-02-05 11:50 | XMS_ITS | Encounter Summary ---
Author Organization [facility] Address [address] [place] [address] Care Team Providers Care Overseamer Name Role Phone Alvaro Clark MD Unavailable Yessica Mcleod PA-C Unavailable Bhavin Gardner Primary Care Provider [phone] Encounter Details Date Type Department Care Team (Late st Contact Info) Description 01/15/2024 Orders Only [facility] [address] [facility] [place] [place] [address] Charlie Almonte, RN Urothelial cancer (H) (Primary [...] 02/11/2024 11:00 AM CDT Infusion Therapy Visit [address] [place] [address] Ky Torres MD 420 [facility] 480 [place], [place] 6[address]25 03/11/2024 1:00 PM CDT Lab [address] [place] [address] Yessica Mcleod PA-C [address] [place] [address] 812175 03/11/2024 1:00 PM CDT Infusion Therapy Visit [address] [place] [address] 03/11/2024 1:30 PM CDT Oncology Visit [address] [place] [address] Dylan Guerin PA [address] [place] [address] [phone] Yessica Mcleod PA-C [address] [place] [address] [phone] 04/08/2024 1:00 PM CLOTHING MANAGER Lab [address] [place] [address] Yessica Mcleod PAJannetC [address] [place] [address] 04/08/2024 1:30 PM CLOTHING MANAGER Oncology Visit [address] [place] [address] Dylan Guerin PA 909 [place] [address] 04/08/2024 1:30 PM CLOTHING MANAGER Infusion Therapy Visit [address] [place] [address] 05/02/2024 10:30 AM CLOTHING MANAGER Lab [address] [place] [address] Ky Torres MD [address] [address] 05/02/2024 11:20 AM CLOTHING MANAGER Appointment [facility] Imaging [address] [place] [address] Ky Torres MD [address] [address] 05/06/2024 9:30 AM CLOTHING MANAGER Lab [address] [place] [address] Ky Torres MD [address] [address] 05/06/2024 10:00 AM CLOTHING MANAGER Oncology Visit [address] [place] [address] Ky Torres MD 420 [facility] 480 [place] [address] 05/06/2024 10:30 AM CLOTHING MANAGER Infusion Therapy Visit [facility] [address] [place] [address] Ky Torres MD 420 [facility] 480 [place] [address] Scheduled Orders Name Type Priority Associated Diagnoses [...] bladder documented in this encounter Care Teams Overseamer Relationship Specialty Start Date End Date Votel, Bhavin Ford [address] [place] [address] PCP - General Family Medicine 12/28/23 Alvaro Clark MD [address] [place] [address] 394 [place], [place] 294125 Assigned Surgical Provider 07/24/23 Yessica Mcleod, PAJannetC [address] [place] [address] 867145 Assigned Cancer Care Provider 12/22/23 01/21/24 documented as of this encounter
--- OUTSIDE RECORDS SUMMARY | 2024-02-05 11:50 | XMS_ITS | Encounter Summary ---
Author Organization [place] Address [address] [place] [address] Care Team Providers Care Truck Operator Name Role Phone Alvaro Clark MD Unavailable Yessica Mcleod PA-C Unavailable Bhavin Gardner Primary Care Provider [phone] Encounter Details Date Type Department Care Team (Late Contact Info) Description 01/15/2024 12:40 PM CDT Lab [facility] [address] [place] [address] Urothelial cancer (H) Social History Tobacco Use [...] 02/11/2024 11:00 AM CDT Infusion Therapy Visit [facility] [address] [place] [address] [place] [address] Ky Torres MD 420 [facility] 480 [place], [place] [address]805 03/11/2024 1:00 PM CDT Lab [address] [place] [address] Yessica Mcleod PA-C [address] [place] [address] 812025 03/11/2024 1:00 PM CDT Infusion Therapy Visit [address] [place] [address] 03/11/2024 1:30 PM CDT Oncology Visit [address] [place] [address] Dylan Guerin PA [address] [place] [address] [phone] Yessica Mcleod PA-C [address] [place] [address] 234935 04/08/2024 1:00 PM AOC DIRECTOR INTELLIGENCE OFFICER Lab [address] [place] [address] Yessica Mcleod PA-C [address] [place] [address] 232645 04/08/2024 1:30 PM AOC DIRECTOR INTELLIGENCE OFFICER Oncology Visit [address] [place] [address] Dylan Guerin PA [address] [place] [address] 573515 04/08/2024 1:30 PM AOC DIRECTOR INTELLIGENCE OFFICER Infusion Therapy Visit [address] [place] [address] 05/02/2024 10:30 AM AOC DIRECTOR INTELLIGENCE OFFICER Lab [address] [place] [address] Ky Torres MD [address] [facility] 480 [place] [address] 05/02/2024 11:20 AM AOC DIRECTOR INTELLIGENCE OFFICER Appointment [facility] Imaging [address] [place] [address] [place] [address] Ky Torres MD [address] [facility] 480 [place] [address] 05/06/2024 9:30 AM AOC DIRECTOR INTELLIGENCE OFFICER Lab [address] [place] [address] Ky Torres MD [address] [facility] 480 [place] [address] 05/06/2024 10:00 AM AOC DIRECTOR INTELLIGENCE OFFICER Oncology Visit [address] [place] [address] Ky Torres MD [address] [facility] 480 [place] [address] 05/06/2024 10:30 AM AOC DIRECTOR INTELLIGENCE OFFICER Infusion Therapy Visit [address] [place] [address] Ky Torres MD [address] [address] documented as of this encounter Procedures Procedure [...] - MICRO GENERAL ORDERABLES [facility] Inf. Diseases Diag. Lab 500 [facility], Room D297 [place] [address], [facility] * (ABNORMAL) CBC with platelets and [...] LAB - BLOOD ORDERABL ES RH LABORATORY [facility] Acute [facility] Lab [address] [facility] Lab (1st floor, no room number) [place] [address], [facility] documented in this encounter Visit Diagnoses Diagnosis Urothelial cancer (H) Malignant neoplasm of other specified sites of urinary organs documented in this encounter Care Teams Truck Operator Relationship Specialty Start Date End Date Votel, Bhavin Ford 1400 [place] [address] PCP - General Family Medicine 12/28/23 Alvaro Clark MD 420 [facility] 394 [place], [place] [phone] Assigned Surgical Provider 07/24/23 Yessica Mcleod PA-C [address] [place] [address] Assigned Cancer Care Provider 12/22/23 01/21/24 documented as of this encounter
--- OUTSIDE RECORDS SUMMARY | 2024-02-05 11:50 | XMS_ITS | Encounter Summary ---
Author Organization [place] Address [address] [place] [address] Care Team Providers Care Records Supervisor Name Role Phone Alvaro Clark MD Unavailable Bhavin Gardner Primary Care Provider [phone] Ky Torres MD Unavailable [phone] Encounter Details Date Type Department Care Team (Late Contact Info) Description 02/04/2024 Orders Only [facility] 500 [place] [address] Sigrid Tadeo, [facility] Social History Tobacco Use Types Packs/Day Years [...] Department Care Team (Late Contact Info) Description 02/11/2024 11:00 AM CDT Infusion Therapy Visit [facility] [address] [place] [address] Ky Torres MD [address] [facility] 480 [place] [address] 03/11/2024 1:00 PM CDT Lab [address] [place] [address] Yessica Mcleod PA-C [address] [place] [address] 03/11/2024 1:00 PM CDT Infusion Therapy Visit [address] [place] [address] 03/11/2024 1:30 PM CDT Oncology Visit [address] [place] [address] Dylan Guerin PA 909 [place], [place] [address] Yessica Mcleod PA-C [address] [place] [address] [phone] 04/08/2024 1:00 PM SEAM STAYER Lab [address] [place] [address] Yessica Mcleod PA-C [address] [place] [address] 785215 04/08/2024 1:30 PM SEAM STAYER Oncology Visit [address] [place] [address] Dylan Guerin PA 909 [place], [place] 983565 04/08/2024 1:30 PM SEAM STAYER Infusion Therapy Visit [address] [place] [address] 05/02/2024 10:30 AM SEAM STAYER Lab [address] [place] [address] Ky Torres MD [address] [facility] [address] [place] [address] 05/02/2024 11:20 AM SEAM STAYER Appointment [facility] Imaging [address] [place] [address] [place] [address] Ky Torres MD [address] [facility] 480 [place], [place] [address] 05/06/2024 9:30 AM SEAM STAYER Lab [address] [place] [address] Ky Torres MD [address] [facility] [address] [place] [address] 05/06/2024 10:00 AM SEAM STAYER Oncology Visit [address] [place] [address] Ky Torres MD [address] [facility] [address] [place], [place] [address] 05/06/2024 10:30 AM SEAM STAYER Infusion Therapy Visit [address] [place] [address] Ky Torres MD 420 [facility] [address] [place], [place] [address] documented as of this encounter Visit Diagnoses Not on filedocumented in this encounter Care Teams Records Supervisor Relationship Specialty Start Date End Date Votel, Bhavin Ford [address] [place] [address] PCP - General Family Medicine 12/28/23 Alvaro Clark MD 420 [facility] 394 [place] [address] Assigned Surgical Provider 07/24/23 Ky Torres MD 420 [facility] [address] [place] [address] Assigned Cancer Care Provider 01/22/24 documented as of this encounter
--- OUTSIDE RECORDS SUMMARY | 2024-02-05 11:50 | XMS_ITS | Encounter Summary ---
Author Organization [facility] Address [address] [place] [address] Care Team Providers Care Physician Office Assistant Name Role Phone Alvaro Clark MD Unavailable Yessica Mcleod PA-C Unavailable Bhavin Gardner Primary Care Provider [phone] Encounter Details Date Type Department Care Team [...] 02/11/2024 11:00 AM CDT Infusion Therapy Visit [facility] [place] [address] [address] [place] [address] Ky Torres MD [address] [place] [address] [phone] 03/11/2024 1:00 PM CDT Lab [facility] [address] [place] [address] Yessica Mcleod PA-C 909 [place], [place] [address] 03/11/2024 1:00 PM CDT Infusion Therapy Visit [address] [place] [phone] 03/11/2024 1:30 PM CDT Oncology Visit [address] [place] [address] Dylan Guerin PA 909 [place], [place] [address] Yessica Mcleod PA-C [address] [place] [address]605 04/08/2024 1:00 PM FOAM CASTER Lab [address] [place] [address] Yessica Mcleod PA-C [address] [place] [address] 126875 04/08/2024 1:30 PM FOAM CASTER Oncology Visit [address] [place] [address] Dylan Guerin PA [address] [place] [address] 794535 04/08/2024 1:30 PM FOAM CASTER Infusion Therapy Visit [place] [address] [place] [address] 05/02/2024 10:30 AM FOAM CASTER Lab [address] [place] [address] Ky Torres MD [address] [facility] 480 [place] [address] 05/02/2024 11:20 AM FOAM CA[address] [facility] Imaging [address] [place] [address] Ky Torres MD [address] [facility] 480 [place] [address] 05/06/2024 9:30 AM FOAM CASTER Lab [address] [place] [address] Ky Torres MD [address] [facility] [address] [place], [place] 776715 05/06/2024 10:00 AM FOAM CASTER Oncology Visit [address] 200 [place] [address] Ky Torres MD [address] [facility] [address] [place] [address] 05/06/2024 10:30 AM FOAM CASTER Infusion Therapy Visit [address] 200 [place] [address] Ky Torres MD [address] [facility] [address] [place] [address] documented as of this encounter Visit Diagnoses Not on filedocumented in this encounter Care Teams Physician Office Assistant Relationship Specialty Start Date End Date Votel, Bhavin Ford [address] [place] [address] PCP - General Family Medicine 12/28/23 Alvaro Clark MD [address] [address] Assigned Surgical Provider 07/24/23 Yessica Mcleod PA-C [address] [place] [address] Assigned Cancer Care Provider 12/22/23 01/21/24 documented as of this encounter
--- OUTSIDE RECORDS SUMMARY | 2024-02-05 11:51 | XMS_ITS | Encounter Summary ---
Author Organization [facility] Address [address] [place] [address] Care Team Providers Care Insulation Sprayer Name Role Phone Alvaro Clark MD Unavailable No Ref-Primary, Physician Primary Care Provider Yessica Mcleod PA-C Unavailable Bhavin Gardner Primary Care Provider [phone] Ky Torres MD Unavailable [phone] Encounter Details Date Type Department Care Team (Late st Contact Info) Description 12/26/2023 [facility] Medical Advice [facility] [address] [place] 200 [facility] [place] [address] Alvaro Clark MD [address] [facility] [address] [place] [address] Urothelial cancer (H) (Primary Dx) [...] 02/11/2024 11:00 AM CDT Infusion Therapy Visit [address] 200 [place] [address] Ky Torres MD 420 [facility] 480 [place], [place] [address] 03/11/2024 1:00 PM CDT Lab [address] 200 [place] [address] Yessica Mcleod PA-C [address] [place] [address] 087045 03/11/2024 1:00 PM CDT Infusion Therapy Visit [address] 200 [place] [address] 03/11/2024 1:30 PM CDT Oncology Visit [address] [place] [address] Dylan Guerin PA [address] [place] [address] 825055 Yessica Mcleod PA-C [address] [place] [address] [id number] 04/08/2024 1:00 PM MORTGAGE LOAN OFFICER Lab [address] 200 [place] [address] Yessica Mcleod PA-C [address] [place] [address] [phone] 04/08/2024 1:30 PM MORTGAGE LOAN OFFICER Oncology Visit [address] [place] [address] Dylan Guerin PA 909 [place] [address] 04/08/2024 1:30 PM MORTGAGE LOAN OFFICER Infusion Therapy Visit [address] 200 [place] [address] 05/02/2024 10:30 AM MORTGAGE LOAN OFFICER Lab [address] 200 [place] [address] Ky Torres MD [address] [facility] [address] [place] [address] 05/02/2024 11:20 AM MORTGAGE LOAN OFFICER Appointment [facility] Center Imaging [address] [place] [address] Ky Torres MD [address] [facility] [address] [place] [address] 05/06/2024 9:30 AM MORTGAGE LOAN OFFICER Lab [address] [place] [address] Ky Torres MD [address] [facility] [address] [place] [address] 05/06/2024 10:00 AM MORTGAGE LOAN OFFICER Oncology Visit [address] [place] [address] Ky Torres MD 420 [facility] [address] [place] [address] 05/06/2024 10:30 AM MORTGAGE LOAN OFFICER Infusion Therapy Visit [facility] [address] [place] [address] [place] [address] Ky Torres MD 420 [facility] [address] [place] [address] documented as of this encounter Visit Diagnoses Diagnosis Urothelial cancer (H)- Primary Malignant neoplasm of other specified sites of urinary organs documented in this encounter Care Teams Insulation Sprayer Relationship Specialty Start Date End Date No Ref-Primary, Physician PCP - General 12/22/23 12/27/23 Bhavin Gardner [address] [place] [address] PCP - General Family Medicine 12/28/23 Alvaro Clark MD [address] 558[address] Assigned Surgical Provider 07/24/23 Yessica Mcleod, PAJannetC [address] [place] [address] Assigned Cancer Care Provider 12/22/23 01/21/24 Ky Torres MD 420 [facility] [address] [place] [address] Assigned Cancer Care Provider 01/22/24 documented as of this encounter
--- OUTSIDE RECORDS SUMMARY | 2024-02-05 11:51 | XMS_ITS | Encounter Summary ---
Author Organization [facility] Address [address] [place] [address]. [place] [address] Care Team Providers Care Testing Lead Name Role Phone Alvaro Clark MD Unavailable No Ref-Primary, Physician Primary Care Provider Yessica Mcleod PA-C Unavailable Bhavin Gardner Primary Care Provider [phone] Reason for Visit * Auth/Cert (Routine) Specialty Diagnoses / Procedures Referred By Virgil t Referred To Contact Med Surg Diagnoses Post-op complications with small bowel obstruction Small bowel obstruction (H) Ur 8a Med Surg [address] [place] [phone] Referral ID Status Reason Start Date Expiration Date Visits Re quested Visits Authorized [id number] 1 1 Encounter Details Date Type Department Care Team (Latest Contact Info) Description 12/27/2023 4:52 AM CDT - 12/29/2023 1:34 PM CDT Hospital Encounter [facility] [address] [place] [address] Fernando Romero MD [address] [place] [address] 394 [place], [place] 0[address] Discharge Disposition: Home or Self Care Social [...] Manriquez MD - 12/29/2023 10:02 AM CDT [facility] Urology Discharge Summary Date of Admission: [...] Thursday through Thursday 8am to 4:30pm: Call [phone] with questions or to schedule or confirm appointment. - Nights or weekends: call the after hours emergency pager - [phone] and tell the robotype operator I would like to page the Urology Resident oracle fusion middleware architect. - For emergencies, call [phone] The patient was discussed with the chief [...] as of this encounter Progress Notes * Jenni Vela RN - 12/29/2023 8:42 AM CDT [...] elevators. Pt left at 1230 * Krystian Manriquez MD - 12/29/2023 6:51 AM CDT Urology [...] intranet: under Applications --> Business Applications select [facility] [employer] and search Urology Adult & Pediatric/[facility]. Please note that any question about a urology inpatient, [place], should go to job code [id number]. * [...] TID Dispo:Floor Will discuss with staff surgeon rKystian Manriquez MD, PGY3 Urology Resident Contacting the urology team: Please see [employer] and page on-call clinician with any questions or concerns regarding this patient. Note continuity writer may be unavailable. To access [employer] from intranet: under Applications --> Business Applications select [employer] and search Urology Adult & Pediatric/[facility]. Please note that any question about a urology inpatient, [place], should go to job code [id number]. * [...] for post op complication. Pt came from [facility] with family member matthew 05:30 am.Pt has a parry draining bloody catheter. 0 * Lauren Eli RN - 12/27/2023 5:42 AM CDT Reason for admission: Post op complication Primary team notified of pt arrival. Admitted from: [facility] Via: Family car Accompanied by: family members [...] BLADDER TUMOR; Surgeon: Alvaro Clark MD; Location: [facility] [place] Social History: Social History Tobacco Use [...] 0.4 mg Intravenous Q2 Min PRN Fernando Rmoero MD Or naloxone (NARCAN) injection 0.2 mg [...] reach out to urology resident listed as oracle fusion middleware architect, electrolyte replacement for K>4, Phos>3, and Mg>2, [...] Patient Progress: improvingOverall Patient Progress: improving Shift [id number] Changes this shift: Irrigated parry and pelvic [...] Barahona RN - 12/27/2023 6:31 PM CDT [id number] Blood pressure 132/75, pulse 94, temperature 97.4 [...] * Pharmacy-Admission Medication History - Silvia Sánchez [facility] - 12/27/2023 1:10 PM CDT Pharmacist Admission Medication History Recent Admission 12/22/2023 - 12/25/3023 Admission Medication History completed by pharmacy technician, Uriel Kaba on 12/15/2023. Please see Pharmacy - Admission Medication History note under previous encounter at [facility]. for information regarding prior to admission medications. Silvia Sánchez, PharmElba Clinical Pharmacist documented in this encounter Plan of Treatment Upcoming Encounters Date Type Department Care Team (Late st Contact Info) Description 02/11/2024 11:00 AM CDT Infusion Therapy Visit [address] [place] [address] Ky Torres MD 420 [facility] 480 [place] [address] 03/11/2024 1:00 PM CDT Lab [place] [address] [place] [address] Yessica Mcleod, RONALD 904 [place], [place] [address] 03/11/2024 1:00 PM CDT Infusion Therapy Visit [place] [address] [place] [address] 03/11/2024 1:30 PM CDT Oncology Visit [address] [place] [address] Dylan Guerin PA 908 [place], [place] [address] Yessica Mcleod PA-C 049 [place] [address] 04/08/2024 1:00 PM MUSEUM LIBRARIAN Lab [address] [place] [address] Yessica Mcleod PA-C 9 [place] [address] 04/08/2024 1:30 PM MUSEUM LIBRARIAN Oncology Visit [address] [place] [address] Dylan Guerin PA 909 [place] [address] 04/08/2024 1:30 PM MUSEUM LIBRARIAN Infusion Therapy Visit [address] [place] [address] 05/02/2024 10:30 AM MUSEUM LIBRARIAN Lab [address] [place] [address] Ky Torres MD [address] [address] 05/02/2024 11:20 AM MUSEUM LIBRARIAN Appointment [facility] Imaging [address] [place] [address] Ky Torres MD [address] [address] 05/06/2024 9:30 AM MUSEUM LIBRARIAN Lab [facility] [address] [place] [address] Ky Torres MD [address] [address] 05/06/2024 10:00 AM MUSEUM LIBRARIAN Oncology Visit [address] [place] [address] Ky Torres MD [address] [address] 05/06/2024 10:30 AM MUSEUM LIBRARIAN Infusion Therapy Visit [address] [place] [address] Ky Torres MD [address] [address] documented as of this encounter Procedures Procedure [...] AM CDT UR LABORATORY Comment:eGFR calculated usin g 2020 CKD-EPI equation. Calcium 8.4(L) 8.8 - [...] LAB - BLOOD ORDERABL ES UR LABORATORY [facility] [address] [facility], [address] [place] [address] * (ABNORMAL) CBC with platelets (12/29/2023 7:28 AM CDT) [facility] Signature WBC Count 8.9 4.0 - 11.0 10e3/uL [...] LAB - BLOOD ORDERABL ES UR LABORATORY [facility], Room 09 [place] [address] * Phosphorus (12/28/2023 11:53 AM CDT) [facility] Phosphorus 2.8 2.5 - 4.5 mg/dL 12/28/2023 1:37 PM CDT UR LABORATORY Blood STRUCTURE OF RIGHT UPPER LIMB / Unknown Venipuncture / Unknown 12/28/2023 11:53 AM CDT 12/28/2023 12:53 PM CDT Krystian Manriquez MD LAB - BLOOD ORDERABL ES UR LABORATORY [facility] [address] [place] [address], Room [address] * Magnesium (12/28/2023 11:53 AM CDT) Magnesium 2.0 1.7 - 2.3 mg/dL 12/28/2023 1:37 PM CDT UR LABORATORY Blood STRUCTURE OF RIGHT UPPER LIMB / Unknown Venipuncture / Unknown 12/28/2023 11:53 AM CDT 12/28/2023 12:53 PM CDT Krystian Manriquez MD LAB - BLOOD ORDERABL ES Performing Organization Address City/[facility]/ZIP Co de Phone Number UR LABORATORY [facility] [address] [place] [address], Room [address] * (ABNORMAL) Basic metabolic panel (12/28/2023 11:53 [...] LAB - BLOOD ORDERABL ES UR LABORATORY [facility] [address] [facility], [address] [place] [phone] * (ABNORMAL) CBC with platelets [...] - BLOOD ORDERABL ES Performing Organization Address City/[facility] Co de Phone Number UR LABORATORY [facility] [address] [place] [address], [address] * Electrolyte panel (12/27/2023 7:37 AM CDT) [...] - BLOOD ORDERABL ES Performing Organization Address City/[facility]/ZIP Co de Phone Number UR LABORATORY [facility] [address] [place] [address], Room [place] [phone] * (ABNORMAL) Basic metabolic panel (12/27/2023 [...] 8:38 AM CDT UR LABORATORY Comment:eGFR calculated us2020 CKD-EPI equation. Calcium 8.0(L) 8.8 - 10.4 [...] LAB - BLOOD ORDERABL ES UR LABORATORY [facility] [address] [facility], [address] [place] [address], [facility] * (ABNORMAL) CBC with platelets (12/27/2023 7:37 [...] LAB - BLOOD ORDERABL ES UR LABORATORY [facility] [address] [facility], [address] [place] [address], [facility] documented in this encounter Visit Diagnoses Diagnosis Small bowel obstruction (H) Unspecified intestinal obstruction documented in this encounter Administered Medications Inactive Administered Medications - up to 3 most recent administrations Medication Order MAR Action Action Date Dose Rate Site acetaminophen (TYLENOL) tablet 650 mg 650 mg, Oral, 3 TIMES DAILY, First dose (after last modification) on Thu12/27/23 at 1400, Maximum acetaminophen dose from all [...] without fever, Starting on Thu12/27/23 at 0510 bisacodyl (DULCOLAX) suppository 10 mg [...] dormant line, Starting on Thu12/27/23 at 0502 documented in this encounter Active [...] Provider: Nick Sanderson RN)2053 ($Given - Provider: Nnaci Cowart RN) 0434 ($Given - Provider: Nanci Cowart, CARLOS)1235 ($Given - Provider: Becca Workman, CARLOS)1943 ($Given - Provider: Omega Livingston, CARLOS) 0355 ($Given - Provider: Omega Livingston RN)1200 (Canceled Entry - Provider: Orders Generic Provider [...] Sanderson RN) 0923 ($Given - Provider: Becca Workman RN) 0857 ($Given - Provider: Jenni Vela RN) nitroFURantoin macrocrystal-monohydrate (MACROBID) capsule 100 mg Routine, 100 mg, Oral, DAILY, First dose on Thu12/27/23 at 0800, Indications: Perioperative Pharmacoprophylaxis 0844 ($Given - Provider: Nick Sanderson RN) 0815 ($Given - Provider: Becca Workman RN) 0857 ($Given - Provider: Jenni Vela RN) senna-docusate (SENOKOT-S/PERICOLACE) 8.6-50 MG per tablet 1 tablet 1 tablet, Oral, 2 TIMES DAILY, First dose on Thu12/27/23 at 1130, Hold for loose stools. 1209 ($Given - Provider: Nick Sanderson RN)2051 ($Given - Provider: Nanci Cowart RN) 0816 ($Given - Provider: Becca Workman RN)1943 ($Given - Provider: Omega Livingston RN) 0857 ($Given - Provider: Jenni Vela RN) [...] Provider: Becca Workman RN - Reason: IV Infusing)7 (Not Given - Provider: Omega Livingston RN [...] RN) 1822 ($New Bag - Provider: Jenni Vela RN) 0355 ($New Bag - Provider: Omega Livingston [...] Thu12/27/23 at 0509 hydrALAZINE (APRESOLINE) tablet 10 mg(Linked [...] PRN, pain, with VAD insertion, Starting on Thu12/27/23 at 0502, Apply at least 30 minutes [...] mild pain with VAD insertion, Starting on Thu12/27/23 at 0502, MAX dose 1 mL subcutaneous [...] 2 MIN PRN, opioid reversal, Starting on [place] 12/27/23 at 0517, Administer intramuscular if an [...] Lauren Eli RN)1210 ($Given - Provider: Nick Sanderson RN)1726 ($Given - Provider: Wayne Barahona RN) 1704 [...] vomiting, Administer over 1-2 Minutes, Starting on Thu12/27/23 at 0510, IF patient unable to tolerate [...] 180 mmHg, Starting on 12/27/23 at 0509 Or hydrALAZINE (APRESOLINE) injection 10 mgJump to med 10 mg, Intravenous, EVERY 4 HOURS PRN, high blood pressure, for systolic BP greater than 180 mmHg, Administer over 1 Minutes, Starting on Thu12/27/23 at 0509 Group 2: naloxone (NARCAN) injection [...] (ZOFRAN). documented in this encounter Care Teams Testing Lead Relationship Specialty Start Date End Date No Ref-Primary, Physician PCP - General 12/22/23 12/27/23 Bhavin Gardner [address] [place] [address] PCP - General Family Medicine 12/28/23 Alvaro Clark MD 420 [facility] [address] [place] [address] Assigned Surgical Provider 07/24/23 Yessica Mcleod PA-C [address] [place] [address] Assigned Cancer Care Provider 12/22/23 01/21/24 documented as of this encounter
--- OUTSIDE RECORDS SUMMARY | 2024-02-05 11:51 | XMS_ITS | Encounter Summary ---
Author Organization [facility] Address [address] [place] [address] Care Team Providers Care Analysis Mgr Name Role Phone Alvaro Clark MD Unavailable Yessica Mcleod PA-C Unavailable Bhavin Gardner Primary Care Provider [phone] Encounter Details Date Type Department Care Team (Late st Contact Info) Description 01/02/2024 Team Conference [facility] [address] 4[address] [place] [address] Guillaume Brenner MD [address] [place] [address] Social History Tobacco Use Types Packs/Day [...] 02/11/2024 11:00 AM CDT Infusion Therapy Visit [address] [place] [address] Ky Torres MD [address] [address] 03/11/2024 1:00 PM CDT Lab [address] [place] [phone] Yessica Mcleod PA-C 902 [place], [place] [address] 03/11/2024 1:00 PM CDT Infusion Therapy Visit [place] [address] [place] [address] 03/11/2024 1:30 PM CDT Oncology Visit [address] [place] [address] Dylan Guerin PA 908 [place] [address] Yessica Mcleod PA-C 909 [place] [address] 04/08/2024 1:00 PM DRY CLIPPER TENDER Lab [address] [place] [address] Yessica Mcleod PA-C 9 [place] [address] 04/08/2024 1:30 PM DRY CLIPPER TENDER Oncology Visit [address] [place] [address] Dylan Guerin PA 909 [place] [address] 04/08/2024 1:30 PM DRY CLIPPER TENDER Infusion Therapy Visit [address] [place] [address] 05/02/2024 10:30 AM DRY CLIPPER TENDER Lab [address] [place] [address] Ky Torres MD [address] [address] 05/02/2024 11:20 AM DRY CLIPPER TENDER Appointment [facility] Imaging [address] [place] [address] Ky Torres MD [address] [address] 05/06/2024 9:30 AM DRY CLIPPER TENDER Lab M [address] [place] [address] Ky Torres MD [address] [address] 05/06/2024 10:00 AM DRY CLIPPER TENDER Oncology Visit [address] [place] [address] Ky Torres MD [address] [place] [address] 05/06/2024 10:30 AM DRY CLIPPER TENDER Infusion Therapy Visit [address] [place] [address] Ky Torres MD [address] [place] [address] documented as of this encounter Visit Diagnoses Not on filedocumented in this encounter Care Teams Analysis Mgr Relationship Specialty Start Date End Date VotelBhavin [address] [place] [address] PCP - General Family Medicine 12/28/23 Alvaro Clark MD [address] [place] [address] Assigned Surgical Provider 07/24/23 Yessica Mcleod PA-C [address] [place] [address] Assigned Cancer Care Provider 12/22/23 01/21/24 documented as of this encounter
--- OUTSIDE RECORDS SUMMARY | 2024-02-05 11:51 | XMS_ITS | Encounter Summary ---
Author Organization [place] Address [address] [place] [address] Care Team Providers Care Pricer Name Role Phone Alvaro Clark MD Unavailable Yessica Mcleod PA-C Unavailable Bhavin Gardner Primary Care Provider [phone] Reason for Visit * Reason Comments Oncology Clinic Visit Post opBladder can cer Encounter Details Date Type Department Care Team (Late st Contact Info) Description 01/01/2024 9:45 AM CDT Office Visit [facility] [address] [place] [address] 200 [facility] [place] [address] Alvaro Clark MD 420 [facility] 394 [place] [address] Urothelial cancer (H) (Primary Dx) [...] (usual) Histologic Grade Grade Grade group 2 ([place] Score 3 + 4 = 7) Intraductal [...] above Alvaro Clark MD Department of Urology [facility] documented in this encounter Nursing Notes [...] today. Pharmacy name entered into [facility]: [place], [place] - [address] [place] [address] Frailty Screening: Is the patient here for [...] 11:00 AM CDT Infusion Therapy Visit [address] [place] [address] Ky Torres MD 420 [facility] 480 [place], [place] 6638[address] 03/11/2024 1:00 PM CDT Lab [address] [place] [address] Yessica Mcleod PA-C [address] [place] [address] 968755 03/11/2024 1:00 PM CDT Infusion Therapy Visit [place] [address] [place] [address] [place] [address] 03/11/2024 1:30 PM CDT Oncology Visit [address] 200 [place] [address] Dylan Guerin PA 909 [place], [place] 097965 Yessica Mcleod PA-C [address] [place] [address]44[address] 04/08/2024 1:00 PM ELECTRICAL TECHNOLOGY INSTRUCTOR Lab [place] [address] [place] [address] [place] [address] Yessica Mcleod PA-C 909 [place] [address] 04/08/2024 1:30 PM ELECTRICAL TECHNOLOGY INSTRUCTOR Oncology Visit [address] [place] [address] Dylan Guerin PA 909 [place] [address] 04/08/2024 1:30 PM ELECTRICAL TECHNOLOGY INSTRUCTOR Infusion Therapy Visit [address] [place] [address] 05/02/2024 10:30 AM ELECTRICAL TECHNOLOGY INSTRUCTOR Lab [address] [place] [address] Ky Torres MD [address] [address] 05/02/2024 11:20 AM ELECTRICAL TECHNOLOGY INSTRUCTOR Appointment [facility] Imaging [address] [place] [address] [place] [address] Ky Torres MD 420 [facility] 480 [place] [address] 05/06/2024 9:30 AM ELECTRICAL TECHNOLOGY INSTRUCTOR Lab [address] [place] [address] Ky Torres MD 420 [facility] 480 [place] [address] 05/06/2024 10:00 AM ELECTRICAL TECHNOLOGY INSTRUCTOR Oncology Visit [address] [place] [address] Ky Torres MD [address] [address] 05/06/2024 10:30 AM ELECTRICAL TECHNOLOGY INSTRUCTOR Infusion Therapy Visit [facility] Ctr [facility] [address] [place] [address] [place] [address] Ky Torres MD [address] 406455 documented as of this encounter Results * [...] LAB - BLOOD ORDERABL ES RH LABORATORY [facility] Acute Care Lab [address] [facility] Lab (1st floor, no room number) [place] [address] documented in this encounter Visit Diagnoses Diagnosis Urothelial cancer (H)- Primary Malignant neoplasm of other specified sites of urinary organs documented in this encounter Care Teams Pricer Relationship Specialty Start Date End Date Votel, Bhavin Ford [address] [place] [address] PCP - General Family Medicine 12/28/23 Alvaro Clark MD [address] [place] [address] Assigned Surgical Provider 07/24/23 Yessica Mcleod PA-C 9 [place] [address] Assigned Cancer Care Provider 12/22/23 01/21/24 documented as of this encounter
--- OUTSIDE RECORDS SUMMARY | 2024-02-05 11:51 | XMS_ITS | Encounter Summary ---
Author Organization [place] Address [address] [place] [address] Care Team Providers Care Hematologist Oncologist Name Role Phone Alvaro Clark MD Unavailable Yessica Mcleod PA-C Unavailable Bhavin Gardner Primary Care Provider [phone] Reason for Visit * Reason Onset Date Comments Medication Request 01/07/2024 Encounter Details Date Type Department Care Team (Late st Contact Info) Description 01/07/2024 Telephone [facility] [address] [place] [address] [address] 200 [facility] [place] [address] Alvaro Clark MD 420 [facility] 394 [place] [address] Medication Request Social History Tobacco [...] need refill by tomorrow. He talked with [facility] in [place] and was told that new Rx would [...] 02/11/2024 11:00 AM CDT Infusion Therapy Visit [address] [place] [address] Ky Torres MD [address] [id number] 03/11/2024 1:00 PM CDT Lab [place] [address] [place] [address] Yessica Mcleod PA-C [address] [place] [address] 093255 03/11/2024 1:00 PM CDT Infusion Therapy Visit [place] [address] [place] [address] 03/11/2024 1:30 PM CDT Oncology Visit [place] [address] [place] [address] Dylan Guerin PA 909 [place], [place] 337875 Yessica Mcleod PA-C 909 [place], [place] 311035 04/08/2024 1:00 PM POSTPARTUM NURSE Lab [address] [place] [address] Yessica Mcleod PA-C 909 [place] [address] 04/08/2024 1:30 PM POSTPARTUM NURSE Oncology Visit [address] [place] [address] Dylan Guerin PA [address] [place] [address] 04/08/2024 1:30 PM POSTPARTUM NURSE Infusion Therapy Visit [address] [place] [address] 05/02/2024 10:30 AM POSTPARTUM NURSE Lab [address] [place] [address] Ky Torres MD 420 [facility] 480 [place] [address] 05/02/2024 11:20 AM POSTPARTUM NURSE Appointment [facility] Center Imaging [address] [place] [address] [place] [address] Ky Torres MD 420 [facility] 480 [place], [place] 4[address]45 05/06/2024 9:30 AM POSTPARTUM NURSE Lab [address] [place] [address] Ky Torres MD 420 [facility] 480 [place] [address] 05/06/2024 10:00 AM POSTPARTUM NURSE Oncology Visit [address] 200 [place] [address] Ky Torres MD [address] [address] 05/06/2024 10:30 AM POSTPARTUM NURSE Infusion Therapy Visit [address] [place] [address] Ky Torres MD [address] [place] [address] documented as of this encounter Visit Diagnoses Not on filedocumented in this encounter Care Teams Hematologist Oncologist Relationship Specialty Start Date End Date DaoteBhavin ferrara [address] [place] [address] PCP - General Family Medicine 12/28/23 Alvaro Clark MD 420 [facility] 394 [place], [place] 515315 Assigned Surgical Provider 07/24/23 Yessica Mcleod PA-C 909 [place], [place] 711175 Assigned Cancer Care Provider 12/22/23 01/21/24 documented as of this encounter
--- OUTSIDE RECORDS SUMMARY | 2024-02-05 11:51 | XMS_ITS | Encounter Summary ---
Author Organization [place] Address [address] [place] [address] Care Team Providers Care Dish Maker Name Role Phone Alvaro Clark MD Unavailable Yessica Mcleod PA-C Unavailable Bhavin Gardner Primary Care Provider [phone] Encounter Details Date Type Department Care Team [...] 02/11/2024 11:00 AM CDT Infusion Therapy Visit [facility] Medical Ctr [place] [address] [place] [address] Ky Torres MD [address] [place] [address] 561115 03/11/2024 1:00 PM CDT Lab [facility] [address] [place] [address] Yessica Mcleod PA-C 909 [place], [place] 7[address]95 03/11/2024 1:00 PM CDT Infusion Therapy Visit [address] [place] [address] 03/11/2024 1:30 PM CDT Oncology Visit [address] [place] [address] Dylan Guerin PA 909 [place], [place] 10[address] Yessica Mcleod PA-C [address] [place] [address] 04/08/2024 1:00 PM SKIDDER RUNNER Lab [address] [place] [address] Yessica Mcleod PA-C [address] [place] [address] 934765 04/08/2024 1:30 PM SKIDDER RUNNER Oncology Visit [address] [place] [address] Dylan Guerin PA [address] [place] [address] 04/08/2024 1:30 PM SKIDDER RUNNER Infusion Therapy Visit [place] [address] [place] [address] [place] [address] 05/02/2024 10:30 AM SKIDDER RUNNER Lab [address] [place] [address] Ky Torres MD [address] [facility] 480 [place] [address] 05/02/2024 11:20 AM SKIDDER RUNNER Appointment [facility] Imaging [address] [place] [address] [place] [address] Ky Torres MD [address] [facility] 480 [place] [address] 05/06/2024 9:30 AM SKIDDER RUNNER Lab [address] [place] [address] Ky Torres MD [address] [facility] 480 [place], [place] 0524[address] 05/06/2024 10:00 AM SKIDDER RUNNER Oncology Visit [address] [place] [address] Ky Torres MD [address] [facility] [address] [place] [address] 05/06/2024 10:30 AM SKIDDER RUNNER Infusion Therapy Visit [address] [place] [address] Ky Torres MD [address] [facility] 480 [place] [address] documented as of this encounter Visit Diagnoses Not on filedocumented in this encounter Care Teams Dish Maker Relationship Specialty Start Date End Date Votel, Bhavin Ford [address] [place] [address] PCP - General Family Medicine 12/28/23 Alvaro Clark MD [address] [address] Assigned Surgical Provider 07/24/23 Yessica Mcleod PA-C [address] [place] [address] Assigned Cancer Care Provider 12/22/23 01/21/24 documented as of this encounter
--- OUTSIDE RECORDS SUMMARY | 2024-02-05 11:51 | XMS_ITS | Encounter Summary ---
Author Organization [place] Address [address] [place] [address]. [place] [address] Care Team Providers Care Plumber Helper Name Role Phone Alvaro Clark MD Unavailable Yessica Mcleod PA-C Unavailable Bhavin Gardner Primary Care Provider [phone] Reason for Visit * Reason Comments Blood Draw CBC, CMP Encounter Details Date Type Department Care Team (Late st Contact Info) Description 01/13/2024 12:45 PM CDT Lab [facility] Cancer [facility] Medical Ctr [facility] [address] [place] [address] [address] 200 [place] [address] Alvaro Clark MD 420 [facility] 394 [place] [address] Urothelial cancer (H) Social History [...] labs. Patient seen by provider today: No Activity Aide present during visit today: Not Applicable. Note: [...] 02/11/2024 11:00 AM CDT Infusion Therapy Visit [address] [place] [address] Ky Torres MD [address] [place] [address] 03/11/2024 1:00 PM CDT Lab [place] [address] [address] [place] [address] Yessica Mcleod PA-C [address] [place] [address] 2315[address] 03/11/2024 1:00 PM CDT Infusion Therapy Visit [place] [address] [place] [address] 03/11/2024 1:30 PM CDT Oncology Visit [address] [place] [address] Dylan Guerin PA 9 [place] [address] Yessica Mcleod PA-C 909 [place] [address] 04/08/2024 1:00 PM CODING COMPLIANCE SPECIALIST Lab [address] [place] [address] Yessica Mcleod PA-C 909 [place] [address] 04/08/2024 1:30 PM CODING COMPLIANCE SPECIALIST Oncology Visit [address] [place] [address] Dylan Guerin PA [address] [place] [address] 04/08/2024 1:30 PM CODING COMPLIANCE SPECIALIST Infusion Therapy Visit [place] [address] [place] [address] 05/02/2024 10:30 AM CODING COMPLIANCE SPECIALIST Lab [address] [place] [address] Ky Torres MD 420 [facility] 480 [place], [place] [address] 05/02/2024 11:20 AM CODING COMPLIANCE SPECIALIST Appointment [facility] Imaging [address] [place] [place] [address] Ky Torres MD 420 [facility] 480 [place], [place] [address] 05/06/2024 9:30 AM CODING COMPLIANCE SPECIALIST Lab [address] [place] [address] Ky Torres MD 420 [facility] 480 [place] [address] 05/06/2024 10:00 AM CODING COMPLIANCE SPECIALIST Oncology Visit [address] [place] [address] Ky Torres MD [address] [address] 05/06/2024 10:30 AM CODING COMPLIANCE SPECIALIST Infusion Therapy Visit [address] [place] [address] Ky Torres MD [address] [address] documented as of this encounter Procedures Procedure [...] LAB - BLOOD ORDERABL ES RH LABORATORY [facility] Acute Care Lab [address] [facility] Lab (1st floor, no room number) [place] [address] * (ABNORMAL) Comprehensive metabolic panel (BMP + [...] <0.2 <=1.2 mg/dL 01/13/2024 1:24 PM CDT LABORATORY Blood VASCULAR PORT AND CATHETER / Unknown IVAD (Port) / Unknown 01/13/2024 12:59 PM CDT 01/13/2024 1:04 PM CDT Alvaro Clark MD LAB - BLOOD ORDERABL ES LABORATORY [facility] Acute Care Lab [address] [facility] Lab (1st floor, no room number) [place] [address], [facility] documented in this [...] mLs documented in this encounter Care Teams Plumber Helper Relationship Specialty Start Date End Date Votel, Bhavin Ford [address] [place] [address] PCP - General Family Medicine 12/28/23 Alvaro Clark MD [address] [place] [address] Assigned Surgical Provider 07/24/23 Yessica Mcleod, PAJannetC [address] [place] [address] 893265 Assigned Cancer Care Provider 12/22/23 01/21/24 documented as of this encounter
--- OUTSIDE RECORDS SUMMARY | 2024-02-05 11:51 | XMS_ITS | Encounter Summary ---
Author Organization [place] Address [address] [place] [address] Care Team Providers Care Digital Media Specialist Name Role Phone Alvaro Clark MD Unavailable Yessica Mcleod PA-C Unavailable Bhavin Gardner Primary Care Provider [phone] Reason for Visit * Reason Comments Catheter Problem Encounter Details Date Type Department Care Team (Late st Contact Info) Description 12/30/2023 10:12 PM CDT - 12/31/2023 1:28 AM CDT [facility] [address] [place] [address] Kandi Morales MD [facility] [address] [place], [place] [phone] Problem with Parry catheter, initial encounter (H24) [...] Documentation None Medical Decision Making / Diagnosis [facility] Diagnoses: None MIPS None MDM Oleg [...] 02/11/2024 11:00 AM CDT Infusion Therapy Visit [address] [place] [address] Ky Torres MD 420 [facility] 480 [address] 03/11/2024 1:00 PM CDT Lab [address] [place] [address] Yessica Mcleod PA-C 903 [place], [place] 4325[address] 03/11/2024 1:00 PM CDT Infusion Therapy Visit [address] [place] [address] 03/11/2024 1:30 PM CDT Oncology Visit [address] [place] [address] Dylan Guerin PA 908 [place], [place] [address] Yessica Mcleod PA-C [address] [place] [address] 983115 04/08/2024 1:00 PM MOTOR AND GENERATOR BRUSH MAKER Lab [address] [place] [address] Yessica Mcleod PA-C 5 [place], [place] [address] 04/08/2024 1:30 PM MOTOR AND GENERATOR BRUSH MAKER Oncology Visit [address] [place] [address] Dylan Guerin PA 909 [place] [address] 04/08/2024 1:30 PM MOTOR AND GENERATOR BRUSH MAKER Infusion Therapy Visit [address] [place] [address] 05/02/2024 10:30 AM MOTOR AND GENERATOR BRUSH MAKER Lab [address] [place] [address] Ky Torres MD [address] [place] [address] [address] 05/02/2024 11:20 AM MOTOR AND GENERATOR BRUSH MAKER Appointment [facility] Imaging [address] [place] [address] Ky Torres MD [address] [place] [address] [address] 05/06/2024 9:30 AM MOTOR AND GENERATOR BRUSH MAKER Lab [address] [place] [address] Ky Torres MD [address] [address] [address] 05/06/2024 10:00 AM MOTOR AND GENERATOR BRUSH MAKER Oncology Visit [address] [place] [address] Ky Torres MD 420 [facility] 480 [address] 05/06/2024 10:30 AM MOTOR AND GENERATOR BRUSH MAKER Infusion Therapy Visit [facility] Medical Ctr [facility] [address] [place] [address] [address] 200 [place] [address] Ky Torres MD 420 [facility] [address] documented as of this encounter Visit Diagnoses Diagnosis Problem with Parry catheter, initial encounter (H24) documented in this encounter Care Teams Digital Media Specialist Relationship Specialty Start Date End Date Bhavin Gardner [address] [place] [address] PCP - General Family Medicine 12/28/23 Alvaro Clark MD 420 [facility] EMER[facility]PARTMENT [phone] Assigned Surgical Provider 07/24/23 Yessica Mcleod, LIDIAC [address] [place] [address] Assigned Cancer Care Provider 12/22/23 01/21/24 documented as of this encounter
--- OUTSIDE RECORDS SUMMARY | 2024-02-05 11:51 | XMS_ITS | Encounter Summary ---
Author Organization [place] Address [address] [place] [address] Care Team Providers Care Field Logistics Coordinator Name Role Phone Alvaro Clark MD Unavailable Yessica Mcleod PA-C Unavailable Bhavin Gardner Primary Care Provider [phone] Encounter Details Date Type Department Care Team [...] 02/11/2024 11:00 AM CDT Infusion Therapy Visit [facility] Medical Ctr [place] [address] [place] [address] Ky Torres MD [address] [place] [address] 377435 03/11/2024 1:00 PM CDT Lab [facility] [address] [place] [address] Yessica Mcleod PA-C 909 [place], [place] 859405 03/11/2024 1:00 PM CDT Infusion Therapy Visit [address] [place] [address] 03/11/2024 1:30 PM CDT Oncology Visit [address] [place] [address] Dylan Guerin PA 909 [place], [place] 6[address] Yessica Mcleod PA-C [address] [place] [address] 04/08/2024 1:00 PM SURVEILLANCE SUPERVISOR Lab [address] [place] [address] Yessica Mcleod PA-C [address] [place] [address] 2484[address] 04/08/2024 1:30 PM SURVEILLANCE SUPERVISOR Oncology Visit [address] [place] [address] Dylan Guerin PA [address] [place] [address] 341385 04/08/2024 1:30 PM SURVEILLANCE SUPERVISOR Infusion Therapy Visit [place] [address] [place] [address] [place] [address] 05/02/2024 10:30 AM SURVEILLANCE SUPERVISOR Lab [address] [place] [address] Ky Torres MD [address] [facility] 480 [place] [address] 05/02/2024 11:20 AM SURVEILLANCE SUPERVISOR Appointment [facility] Imaging [address] [place] [address] [place] [address] Ky Torres MD [address] [facility] 480 [place] [address] 05/06/2024 9:30 AM SURVEILLANCE SUPERVISOR Lab [address] [place] [address] Ky Torres MD [address] [facility] 480 [place], [place] 2104[address] 05/06/2024 10:00 AM SURVEILLANCE SUPERVISOR Oncology Visit [address] [place] [address] Ky Torres MD [address] [facility] 480 [place] [address] 05/06/2024 10:30 AM SURVEILLANCE SUPERVISOR Infusion Therapy Visit [address] [place] [address] Ky Torres MD [address] [facility] 480 [place] [address] documented as of this encounter Visit Diagnoses Not on filedocumented in this encounter Care Teams Field Logistics Coordinator Relationship Specialty Start Date End Date Votel, Bhavin Ford [address] [place] [address] PCP - General Family Medicine 12/28/23 Alvaro Clark MD [address] [address] Assigned Surgical Provider 07/24/23 Yessica Mcleod PA-C [address] [place] [address] Assigned Cancer Care Provider 12/22/23 01/21/24 documented as of this encounter
--- OUTSIDE RECORDS SUMMARY | 2024-02-05 11:52 | XMS_ITS | Encounter Summary ---
Author Organization [facility] Address [address] [place] [address] Care Team Providers Care Laminator Hand Name Role Phone Alvaro Clark MD Unavailable System, Provider Not In Primary Care Provider Un available Sixto Whalen APRN PROTOCOL OFFICER Unavailable [phone] Encounter Details Date Type Department Care Team [...] 02/11/2024 11:00 AM CDT Infusion Therapy Visit [place] [address] [place] [phone] Ky Torres MD 420 [facility] 480 [place], [place] [address] 03/11/2024 1:00 PM CDT Lab [facility] [address] [place] [phone] Yessica Mcleod PA-C 909 [place], [place] [address] 03/11/2024 1:00 PM CDT Infusion Therapy Visit [address] [place] [phone] 03/11/2024 1:30 PM CDT Oncology Visit [address] [place] [phone] Dylan Guerin PA [address]09 [place], [place] [address] Yessica Mcleod PA-C 9 [place], [place] [address] 04/08/2024 1:00 PM FLIGHT LINE SERVICE ATTENDANT Lab [address] [place] [phone] Yessica Mcleod PA-C 9 [place], [place] [address] 04/08/2024 1:30 PM FLIGHT LINE SERVICE ATTENDANT Oncology Visit [address] [place] [phone] Dylan Guerin PA [address] [place], [place] [address] 04/08/2024 1:30 PM FLIGHT LINE SERVICE ATTENDANT Infusion Therapy Visit [address] [place] [phone] 05/02/2024 10:30 AM FLIGHT LINE SERVICE ATTENDANT Lab [address] [place] [phone] Ky Torres MD [address] [facility] [address] [place] [address] 05/02/2024 11:20 AM FLIGHT LINE SERVICE ATTENDANT Appointment [facility] [address] [place] [address] Ky Torres MD [address] [facility] 480 [place] [address] 05/06/2024 9:30 AM FLIGHT LINE SERVICE ATTENDANT Lab [address] [place] [phone] Ky Torres MD [address] [facility] [address] [place] [address] 05/06/2024 10:00 AM FLIGHT LINE SERVICE ATTENDANT Oncology Visit [address] [place] [phone] Ky Torres MD [address] [facility] [address] [place] [address] 05/06/2024 10:30 AM FLIGHT LINE SERVICE ATTENDANT Infusion Therapy Visit [address] [place] [phone] Ky Torres MD [address] [facility] [address] [place] [address] documented as of this encounter Visit Diagnoses Not on filedocumented in this encounter Care Teams Laminator Hand Relationship Specialty Start Date End Date System, Provider Not In PCP - General Clinic 08/13/23 12/21/23 Alvaro Clark MD [address] [address] Assigned Surgical Provider 07/24/23 Sixto Whalen APRN CNP [address] [place] [address] Assigned Cancer Care Provider 10/22/23 12/21/23 documented as of this encounter
--- OUTSIDE RECORDS SUMMARY | 2024-02-05 11:52 | XMS_ITS | Encounter Summary ---
Author Organization [facility] Address [address] [place] [address] Care Team Providers Care Cylinder Tester Name Role Phone Alvaro Clark MD Unavailable System, Provider Not In Primary Care Provider Un available Sixto Whalen APRN DIRECTOR ACUTE Unavailable [phone] Reason for Visit * Reason Comments Pre-Op Exam Encounter Details Date Type Department Care Team (Late st Contact Info) Description 12/11/2023 8:00 AM CDT Office Visit [facility] Preoperative Assessment Center [address] 5th [place] [phone] Rizwana Tejeda APRN DIRECTOR ACUTE [address] [place] [address] Preop examination (Primary Dx); 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 (H) Anesthesia Record Procedure Summary Procedure Name Responsible Anesthesiologist Anesthesia Start Time Anesthesia Stop Time CYSTECTOMY, pelvic node dissection WITH ILEAL NEOBLADDER CREATION (Abdomen) Forest Olson MD 12/22/23 0748 12/22/23 1437 Events Date Time Event Comment 12/22/2023 0654 CLINICAL COORDINATOR Ready for Procedure 0747 0748 An Start [...] Single 08/28/23; 0916; Right; Chest wall; Yes; [id number]; Yes; Yes; 6 Fr; 21 cm; SVC/RA [...] Cowan 2; Grade View: 1; Placement Person: CLINICAL COORDINATOR; Attempts: 1 12/22/23 0802 by Nessa Pereira [...] Drain 12/22/23; 1408; RLQ ; Bulb; 19 Lithuanian 12/22/23 1408 by Natasha Alejo RN 12/25/23 [...] come to: Please come to: [facility] Ruby Unit [address] [place] [address] The [facility] ([facility] Ruby Patient/Visitor Ramp is at [address] [facility] [address]. Patients and visitors who self-park will receive the reduced hospital parking rate. If the Patient /Visitor Ramp is full, please follow the signs to the [employer] car park located at the main hospital entrance. [employer] parking is available (24 hours/ 7 days a week) Discounted parking pass options are available for patients and visitors. They can be purchased at the mcTEL desk at the main hospital entrance. - Stop at the security desk and they will direct surgery patients to the Surgery Check in and Family Lounge. [phone] - If you need directions, a wheelchair [...] or fragrance. - No makeup or fingernail yakut. - Bring your ID and insurance card. [...] contact the Pre Admission Nursing Office at [phone]. - If you have health changes between [...] others Clean your hands with alcohol hand archivist military history. Do this when you arrive at and [...] encounter H&P Notes * Rizwana Tejeda APRN DIRECTOR ACUTE - 12/11/2023 8:00 AM CDT Images from [...] P in preparation for Procedure Information Case: [id number] Date/Time: 12/22/23 0800 Procedure: CYSTECTOMY, pelvic node [...] BLADDER TUMOR; Surgeon: Alvaro Clark MD; [facility] Prior to Admission Medications Current Outpatient [...] Resource Strain: High Risk (06/01/2021) Re[facility] from [facility] Financial Resource Strain Difficulty of Paying Living Expenses: Not on file Difficulty of Paying Living Expenses: Not on file Food Insecurity: Not on file Transportation Needs: Not on file Physical Activity: Not on file Stress: Not on file Social Connections: Unknown (08/15/2021) Received from [facility] Social Connections Frequency of Communication with Friends [...] purposefully, but 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 Denies any exertional dyspnea or [...] Rizwana Tejeda APRN CNP Preoperative Assessment Center [facility] documented in this encounter Plan of Treatment Upcoming Encounters Date Type Department Care Team (Late st Contact Info) Description 02/11/2024 11:00 AM CDT Infusion Therapy Visit [address] [place] [phone] Ky Torres MD 420 [facility] 480 [place], [place] [address] 03/11/2024 1:00 PM CDT Lab [address] [place] [phone] Yessica Mcleod, PAJose Luis [address] [place], [place] [address] 03/11/2024 1:00 PM CDT Infusion Therapy Visit [address] [place] [phone] 03/11/2024 1:30 PM CDT Oncology Visit [address] [place] [phone] Dylan Guerin PA 909 [place], [place] [address] Yessica Mcleod PA-C [address] [place], [place] [address] 04/08/2024 1:00 PM CASHIER ASSOCIATE Lab [address] [place] [address] Yessica Mcleod PA-C [address] [place] [address] 04/08/2024 1:30 PM CASHIER ASSOCIATE Oncology Visit [address] [place] [address] Dylan Guerin PA [address] [place], [place] [address] 04/08/2024 1:30 PM CASHIER ASSOCIATE Infusion Therapy Visit [address] [place] [address] 05/02/2024 10:30 AM CASHIER ASSOCIATE Lab [address] [place] [phone] Ky Torres MD [address] [address] 05/02/2024 11:20 AM CASHIER ASSOCIATE Appointment [facility] Imaging [address] [place] [address] Ky Torres MD [address] [address] 05/06/2024 9:30 AM CASHIER ASSOCIATE Lab [address] [place] [phone] Ky Torres MD 420 [facility] [address] [place] [address] 05/06/2024 10:00 AM CASHIER ASSOCIATE Oncology Visit [address] [facility] [place] [phone] Ky Torres MD [address] [facility] [address] [place] [address] 05/06/2024 10:30 AM CASHIER ASSOCIATE Infusion Therapy Visit [facility] [address] [place] [phone] Ky Torres MD [address] [place] [address] [address] documented as of this encounter Results * Basic metabolic panel (12/11/2023 8:32 AM CDT) Sodium 140 135 - 145 mmol/L 12/11/2023 9:04 AM CDT [facility] Potassium 4.8 3.4 - 5.3 mmol/L 12/11/2023 9:04 AM CDT [facility] Chloride 103 98 - 107 mmol/L 12/11/2023 9:04 AM CDT [facility] Carbon Dioxide (CO2) 28 22 - 29 mmol/L 12/11/2023 9:04 AM CDT [facility] Anion Gap 9 7 - 15 mmol/L 12/11/2023 9:04 AM CDT [facility] Urea Nitrogen 14.4 8.0 - 23.0 mg/dL 12/11/2023 9:04 AM CDT [facility] Creatinine 0.86 0.67 - 1.17 mg/dL 12/11/2023 9:04 AM CDT [facility] GFR Estimate >90 >60 mL/min/1.7 3m2 12/11/2023 9:04 AM CDT [facility] Comment:eGFR calculated usin 2020 CKD-EPI equation. Calcium 9.2 8.8 - 10.2 mg/dL 12/11/2023 9:04 AM CDT [facility] Glucose 99 70 - 99 mg/dL 12/11/2023 9:04 AM CDT [facility] Blood STRUCTURE OF LEFT UPPER LIMB / Unknown Venipuncture / Unknown 12/11/2023 8:32 AM CDT 12/11/2023 8:32 AM CDT Rizwana Tejeda APRN DIRECTOR ACUTE LAB - BLOO D ORDERABLES [facility] [place] [address] [place] [address] 1st [place] [address] * (ABNORMAL) CBC with platelets (12/11/2023 8:32 AM CDT) WBC Count 7.1 4.0 - 11.0 10e3/uL 12/11/2023 8:38 AM CDT [facility] RBC Count 3.91(L) 4.40 - 5.90 10e6/uL 12/11/2023 8:38 AM CDT [facility] Hemoglobin 11.4(L) 13.3 - 17.7 g/dL 12/11/2023 8:38 AM CDT [facility] Hematocrit 34.8(L) 40.0 - 53.0 % 12/11/2023 8:38 AM CDT [facility] MCV 89 78 - 100 fL 12/11/2023 8:38 AM CDT [facility] MCH 29.2 26.5 - 33.0 pg 12/11/2023 8:38 AM CDT [facility] MCHC 32.8 31.5 - 36.5 g/dL 12/11/2023 8:38 AM CDT [facility] RDW 16.1(H) 10.0 - 15.0 % 12/11/2023 8:38 AM CDT [facility] Platelet Count 196 150 - 450 10e3/uL 12/11/2023 8:38 AM CDT [facility] Blood STRUCTURE OF LEFT UPPER LIMB / Unknown Venipuncture / Unknown 12/11/2023 8:32 AM CDT 12/11/2023 8:32 AM CDT Rizwana Tejeda APRN, CNP LAB - BLOO D ORDERABLES [facility] - [address] [place] [address] documented in this encounter Visit Diagnoses Diagnosis Preop examination- Primary Preoperative examination, unspecified 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 (H) documented in this encounter Care Teams Cylinder Tester Relationship Specialty Start Date End Date System, Provider Not In PCP - General Clinic 08/13/23 12/21/23 Alvaro Clark MD [address] [place] [address] Assigned Surgical Provider 07/24/23 Sixto Whalen APRN CNP [address] [place] [address] Assigned Cancer Care Provider 10/22/23 12/21/23 documented as of this encounter
--- OUTSIDE RECORDS SUMMARY | 2024-02-05 11:52 | XMS_ITS | Encounter Summary ---
Author Organization [facility] Address [address] [place] [id number] Care Team Providers Care X Ray Control Equipment Repairer Name Role Phone Alvaro Clark MD Unavailable No Ref-Primary, Physician Primary Care Provider Yessica Mcleod PA-C Unavailable Reason for Visit * Auth/Cert Specialty Diagnoses / Procedures Referred By Virgil t Referred To Contact Surgery Diagnoses 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 (H) 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 (H) [C67.9] Procedures IA REMV BLADDER,CONTINENT DIVERSN CYSTECTOMY, pelvic node dissection WITH ILEAL NEOBLADDER CREATION possible ileal conduit U[facility] Per[facility] [address] [place] [address] Referral ID Status Reason Start Date Expiration Date Visits Re quested Visits Authorized [id number] 1 1 Encounter Details Date Type Department Care Team (Latest Contact Info) Description 12/22/2023 5:50 AM CDT - 12/25/2023 3:50 PM CDT Hospital Encounter M [facility] [address] [place] [address] [place] [address] Alvaro Clark MD [address] [facility] [address] [place] [address] Postoperative state (Primary Dx); Bladder [...] Dai NP - 12/25/2023 10:13 AM CDT [facility] UroDischarge Summary Patient: Oleg Richard : [...] Please see comment - Incidental prostatic adenocarcinoma, [place]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 - Your nurse or case assembler will provide written catheter care instructions for [...] a clean towel or dried with a hair-rotary drier. - You may shower with your catheter [...] Thursday through Thursday 8am to 4:30pm: Call [phone] with questions, requests for medication refills, or to schedule or confirm an appointment. - Nights, weekends, or holidays: call the after hours emergency pager - [phone] and tell the tool grinder set up operator gear I would like to page the Urology Resident injection mold technician. Typically, the on-call provider should return your call within 30 minutes. Please page the on-call provider again if you haven't been contacted as expected. Rarely, the on-call provider will be unable to promptly return a call due to a hospital emergency. If you have paged twice and are still not contacted, ask the hospital tool grinder set up operator gear to page the urology CHIEF-RESIDENT injection mold technician. - Please note that due to [...] to reach the Urology resident or PA injection mold technician - Week [phone] to reach the Urology resident or PA injection mold technician - Weeknights and weekends December 25, [...] Noe Erickson MD, MPH Urology Resident, PGY-2 TANK CAR MECHANIC medications: Prior to Admission medications Medication Sig [...] questions or concerns regarding this patient. Note conventional underwriter may be unavailable. To access [employer] from intranet: under Applications --> Business Applications select [employer] and search Urology Adult & Pediatric/[facility]. Please note that any question about a urology inpatient, [place] or [place], should go to job code [id number]. * [...] Noe Erickson MD, MPH Urology Resident, PGY-2 TANK CAR MECHANIC medications: Prior to Admission medications Medication Sig [...] questions or concerns regarding this patient. Note conventional underwriter may be unavailable. To access [employer] from intranet: under Applications --> Business Applications select [employer] and search Urology Adult & Pediatric/[facility]. Please note that any question about a urology inpatient, [place] or [place], should go to job code [id number]. * [...] identified Bed Mobility Bed Mobility supine-sit;sit-supine Supine-Sit [place] (Bed Mobility) verbal cues Sit-Supine [place] (Bed Mobility) verbal cues Transfers Transfers sit-stand transfer Sit-Stand Transfer Sit-Stand [place] (Transfers) supervision Balance Balance Assessment no deficits identified Activities of Daily Living BADL Assessment/Intervention bathing;upper body dressing;lower body dressing;clothing fastener management;grooming;toileting Bathing Assessment/Intervention [place] Level (Bathing) set up Comment, (Bathing) Per clinical judgement Upper Body Dressing Assessment/Training Comment, (Upper Body Dressing) Per clinical judgement [place] Level (Upper Body Dressing) independent Lower Body Dressing Assessment/Training [place] Level (Lower Body Dressing) modified independence Clothes Fastener Management [place] Level (Clothes Fastener Management) independent Grooming Assessment/Training [place] Level (Grooming) supervision Toileting [place] Level (Toileting) supervision Clinical Impression Criteria for [...] Evaluation Time OT Eval, Low Complexity Minutes (98983) 10 OT Goals Therapy Frequency (OT) One [...] Management Self-Care/Home Mgmt/ADL, Compensatory, Meal Prep Minutes (41376) 12 Symptoms Noted During/After Treatment (Meal Preparation/Planning Training) increased pain Treatment Detail/Skilled Intervention OT: Facilitated ADL for increased IND within precautions. Pt educated on abdominal precautions, handout provided. Pt completed log roll technique for bed mobility with verbal cues, progressed to mod IND. Reviewed with pt LB dressing within precautions, pt unable to demo figure four, reported he is familiar with using rv technician tool for LB dressing and has slip on shoes he wears. Educated pt on IADLs with 10 # weight restriction. Pt demo'd mod IND mobility in room once set up with IV pole due to multiple lines, completed ADLS SBA and progressed to mod IND-IND. Therapeutic Activities Therapeutic Activity Minutes (91224) 10 Symptoms noted during/after treatment fatigue Treatment [...] MD. Camilla Larkin MD, PGY-2 Urology Resident TANK CAR MECHANIC medications: Prior to Admission medications Medication Sig [...] questions or concerns regarding this patient. Note conventional underwriter may be unavailable. To access [employer] from intranet: under Applications --> Business Applications select [employer] and search Urology Adult & Pediatric/[facility]. Please note that any question about a urology inpatient, [place] or [place], should go to job code [id number]. * [...] cath with red output. BS+, passing flatus. [place] urge sat Diet: Clears. Skin/Incisions/Drains: Midline abd [...] 5:41 AM CDT Goal Outcome Evaluation: Shift [phone] A&Ox4, cooperative, makes needs known. Abdominal pain [...] Nicholas RN - 12/24/2023 3:41 AM CDT [id number] Status: OD#1 s/p cystectomy with ileal neobladder [...] and pt belching. thanks. shobha ho rn [phone] * Plan of Care - Ana Thomason OTR - 12/23/2023 11:53 AM CDT Occupational Therapy Discharge Summary Reason for therapy discharge: All goals and outcomes met, no further needs identified. Progress towards therapy goal(s). See goals on Care Plan in [facility] electronic health record for goal details. [...] Date: 12/22/2023 Attending Surgeon: Alvaro Clark MD Resp Therapist(s): Alberto Tejeda M.D.-PGY-5 Preoperative Diagnosis(es): High grade [...] in the usual sterile fashion. A #16 Nauruan Parry catheter was placed in the bladder. [...] 60 stapler. We opened the windows of Earth for approximately 5 cm alongthe proximal segment [...] sutures. We then performed a standard stapled wlns-er-xvdc functional end-to-end small bowel anastomosis by firing a JORGE 60 stapler along the antimesenteric border and closed the enterotomies for the anastomosis using a TA 60 stapler. The crossing staple lines were reinforced using 3-0 silk suture in a pzvmdl-on-qwufm fashion. A similar suture was done at [...] away from thepouch. We placed a #19 Nauruan Brandon drain into the plane between the [...] Tejeda MD - 12/22/2023 2:24 PM CDT [facility] Brief Operative Note Pre-operative diagnosis: Urothelial carcinoma [...] Implant Name Type Inv. Item Serial No. Political Geographer Lot No. LRB No. Used Action STENT URETERAL AUGER MILL OPERATOR DIVERSION [id number] - [id number] Stent STENT URETERAL AUGER MILL OPERATOR DIVERSION [id number] [facility] [id number] N/A 1 Implanted Fluids: 3200 crystalloid 250 albumin Admit Urology Urology to irrigate AM and PM Neobladder pathway Alberto Tejeda MD Urology PGY-5 * Pharmacy-Admission Medication History - Uriel Kaba - 12/15/2023 12:03 PM CDT Labels Molder Pre-operative Admission Medication History Admission medication history [...] 09/14/23 per dispense history. Changes made to TANK CAR MECHANIC medication list: Added: None Deleted: None Changed: None Allergies reviewed with patient and updates made in EHR: yes Medication History Completed By: Uriel Kaba 12/15/2023 12:03 PM TANK CAR MECHANIC Med List Medication Sig Last Dose acetaminophen-caffeine (EXCEDRIN TENSION HEADACHE) 500-65 MG TABS Take 2 tablets by mouth every 6 hours as needed for mild pain (PRN HEADACHE) diphenhydrAMINE HCl (BENADRYL ALLERGY PO) Take 1 tablet by mouth as needed Associated attestation - Nabeel Mcghee RPH - 12/15/2023 12:17 PM CDT I was not present during the business analytics intern's interview, but I agree with the documentation. Nabeel Mcghee, Pharm.D, [facility] December 15, 2023 documented in this encounter Plan of Treatment Upcoming Encounters Date Type Department Care Team (Late st Contact Info) Description 02/11/2024 11:00 AM CDT Infusion Therapy Visit M [address] [place] [phone] Ky Torres MD [address] [place] [phone] 03/11/2024 1:00 PM CDT Lab [address] [place] [phone] Yessica Mcleod, PAJannetC [address] [place] [address] 03/11/2024 1:00 PM CDT Infusion Therapy Visit [address] [place] [phone] 03/11/2024 1:30 PM CDT Oncology Visit [address] [place] [phone] Dylan Guerin PA [address] [place] [address] Yessica Mcleod PA-C [address] [place] [phone] 04/08/2024 1:00 PM HVAC TECHNICIAN Lab [place] [address] [place] [address] [place] [phone] Yessica Mcleod PA-C [address] [place] [phone] 04/08/2024 1:30 PM HVAC TECHNICIAN Oncology Visit [address] DAISY [address] [place] [address] Dylan Guerin PA [address] [facility] [place] [address] 04/08/2024 1:30 PM HVAC TECHNICIAN Infusion Therapy Visit [address] [place] [phone] 05/02/2024 10:30 AM HVAC TECHNICIAN Lab [address] [place] [phone] Ky Torres MD [address] [facility] [address] [place], [place] [address] 05/02/2024 11:20 AM HVAC TECHNICIAN Appointment [facility] [address] [place] [address] [place] [phone] Ky Torres MD [address] [phone] 05/06/2024 9:30 AM HVAC TECHNICIAN Lab [address] [place] [phone] Ky Torres MD [address] [facility] [address] [place] [address] 05/06/2024 10:00 AM HVAC TECHNICIAN Oncology Visit [address] [place] [phone] Ky Torres MD [address] [facility] [address] [place], [place] [address] 05/06/2024 10:30 AM HVAC TECHNICIAN Infusion Therapy Visit [facility] [address] [place] [phone] Ky Torres MD 420 [facility] [address] [place] [address] documented as of this encounter Procedures Procedure [...] FLUIDS OR DERABLES [facility] [place] Core Lab [address] [facility], Room [address] [place] [address], [facility] * (ABNORMAL) CBC with platelets [...] BLOOD ORDERABL ES [facility] [place] [facility] Lab [address] [facility], Room [address] [place] [address] * (ABNORMAL) Basic metabolic panel (12/25/2023 6:50 [...] BLOOD ORDERABL ES [facility]ORY [facility] [place] [facility] Lab [address] [facility], Room [address] * Phosphorus (12/24/2023 6:16 AM CDT) Phosphorus 2.9 2.5 - 4.5 mg/dL 12/24/2023 7:26 AM CDT [facility] LABORATORY Blood (Portacath) IVAD (Port) / Unknown 12/24/2023 6:16 AM CDT 12/24/2023 6:41 AM CDT Alberto Tejeda MD LAB - BLOOD ORDERABL ES [facility] [place] [facility] Lab [address] [facility], Room [address] * Magnesium (12/24/2023 6:16 AM CDT) Magnesium 1.8 1.7 - 2.3 mg/dL 12/24/2023 10:59 AM CDT [facility] LABORATORY Blood (Portacath) IVAD (Port) / Unknown 12/24/2023 6:16 AM CDT 12/24/2023 6:41 AM CDT Alberto Tejeda MD LAB - BLOOD ORDERABL ES [facility] [place] [facility] Lab [address] [facility], Room 3[address] [place] [address] * (ABNORMAL) CBC with platelets (12/24/2023 6:16 [...] BLOOD ORDERABL ES [facility] LAB[facility]ORY [facility] [place] [facility] Lab [address] [facility], Room 3[address]580 [place] [address] * (ABNORMAL) Basic metabolic panel (12/24/2023 6:16 [...] BLOOD ORDERABL ES [facility] LABORATORY [facility] [place] [facility] Lab [address] [facility], Room [address] [place] [phone] * (ABNORMAL) CBC with platelets (12/23/2023 7:04 AM CDT) Pathologist [facility] WBC Count 12.1(H) 4.0 - 11.0 10e3/uL [...] BLOOD ORDERABL ES U LABORATORY [facility] [place] [facility] Lab [address] [facility], Room [address] [place] [phone] * (ABNORMAL) Basic metabolic panel (12/23/2023 7:04 AM CDT) Pathologist [facility] Sodium 136 135 - 145 mmol/L 12/23/2023 [...] LAB - BLOOD ORDERABL ES [facility] LABORATORY [facility] Core Lab [address] [facility], Room [address] [place] [address] * (ABNORMAL) Glucose by meter (12/23/2023 6:42 AM CDT) GLUCOSE BY METER POCT 118(H) 70 - 99 mg/dL 12/23/2023 6:49 AM CDT [facility] LAB[facility] POC Blood, Capillary BLOOD SPECIMEN / Unknown 12/23/2023 6:42 AM CDT 12/23/2023 6:49 AM CDT Alvaro Clark MD LAB - BEAKER POCT Performing Organization Address [facility] Co de Phone Number [facility] LABORATORY POC [facility] [place] [facility] Lab [address] [facility], Room [address] [place] [address] * Platelet count (12/22/2023 9:55 PM CDT) Platelet Count 179 150 - 450 10e3/uL 12/22/2023 10:12 PM CDT [facility] LAB[facility] Blood STRUCTURE OF RIGHT HAND / Unknown IVAD (Port) / Unknown 12/22/2023 9:55 PM CDT 12/22/2023 10:04 PM CDT Alberto Tejeda MD LAB - BLOOD ORDERABL ES Performing Organization Address [facility] Co de Phone Number [facility] [place] [facility] [address] [facility], Room 3[address] * XR Abdomen Port 1 View [...] Case Report Surgical Pathology Report ? Case: [id number] ? Authorizing Provider: ??Alvaro Clark MD ?Collected: [...] Please see comment - Incidental prostatic adenocarcinoma, [place] score 7 (3+4) - Margins are negative [...] 9:15 AM Intra op performed at: LABORATORY, [facility] Core Lab, [address] [place] [address], Room [address] [address] Intra-op Dx verbally delivered to Dr. Amber Tanner(2). Ureter, Right, Right distal ureteral margin: BFS1: Negative for malignancy John Carey MD on 12/22/2023 at 9:27 AM Intra op performed at: LABORATORY, [facility] Lab, [address] [facility], [facility], Room [address] [phone] Intra-op Dx verbally delivered to Dr. Amber Segura(3). Urethra, urethral margin: CFS1: - No evidence of malignancy Tracie Gonzalez MD on 12/22/2023 at 10:41 AM Intra op performed at: LABORATORY, [facility] Core Lab, [address] [facility], [facility], Room [address] [address] Intra-op Dx verbally delivered to Dr. Clark [...] reveal no mass deposits or lymph nodes. Weigh Boss sections are submitted. Gross photography is taken. D1-urethral margin, en face D2-right ureter margin, en face D3-left ureter margin, en face D4-lesion to right ureteral orifice D5-lesion to left ureteral orifice E1-E36-hpzmvy from dome to trigone D59-edwart to seminal vesicles H14-chzgc lateral wall P63-jpozmgmc bladder wall Z40-hfxi C94-A63-ysrvj prostatic apex C92-W10-wurl prostatic apex D23-mid prostate, right anterior D24-mid prostate, left posterior D25-mid prostate, left anterior D26-mid prostate, left posterior A84-edye prostate, right anterior G11-egkv prostate, right posterior Z37-noje prostate, mid F52-sxgs prostate, left anterior D76-etgh prostate, left posterior E(5). Lymph Node(s), Pelvis, [...] possible lymph nodes E2-intact possible lymph node E3-P0-eocjygxx possible lymph node S5-S7-usqgmdac possible lymph node W8-N34-cmqqvfqt sectioned possible lymph node F(6). Lymph Node(s), [...] possible lymph nodes F2-bisected possible lymph node W5-G9-exttbsov sectioned possible lymph node G(7). Ureter, Left, [...] component of this testing was completed at [facility]. Stain controls for all [...] CDT 12/22/2023 3:05 PM CDT Alvaro CONROY Performing Organization Address City/[facility]/ZIP Co de Phone Number [facility] [address] [facility], [address] [address] LAB[facility] [place] [facility] Lab [address] [facility], [address] [address] * (ABNORMAL) Glucose by meter (12/22/2023 6:55 AM CDT) GLUCOSE BY METER POCT 101(H) 70 - 99 mg/dL 12/22/2023 7:01 AM CDT [facility] LABORATORY POC Blood, Capillary BLOOD SPECIMEN / Unknown 12/22/2023 6:55 AM CDT 12/22/2023 7:01 AM CDT Alvaro CONROY POCT [facility] LABORATORY POC [facility] [place] [facility] Lab [address] [facility], Room [address] [place] [phone] * Adult Type and Screen (12/22/2023 6:47 AM CDT) ABO/RH(D) A NEG 12/22/2023 6:16 AM CDT UU BLOOD BANK Antibody Screen Negative Negative 12/22/2023 6:16 AM CDT UU BLOOD BANK SPECIMEN EXPIRATION DATE [id number] 12/22/2023 6:16 AM CDT BLOOD BANK Blood STRUCTURE OF RIGHT HAND / Unknown Venipuncture / Unknown 12/22/2023 6:47 AM CDT 12/22/2023 6:56 AM CDT Alvaro Clark MD LAB - BLOOD BANK LICHA T ORDER BLOOD BANK [address] [place] [address], [facility] documented in this encounter Visit [...] analgesic side effects. Hold while on IV SECURITY LEAD or with regular IV opioid dosing. $Given [...] analgesic side effects. Hold while on IV SECURITY LEAD or with regular IV opioid dosing. $Given [...] 750 mL in ON-Q C-Bloc select flow ([id number] holds 600-750 mL) dual cath disposable pump [...] Shobha Sneed RN)2248 ($Given - Provider: Isaac Hutchins, CARLOS) [...] Merida RN)1325 ($Given - Provider: Shobha Sneed, CARLOS)213 ($Given - Provider: Kelly Nicholas RN) 0832 [...] stools. 0825 (Not Given - Provider: Aaron C Trygestad, RN - Reason: Patient/family refused) furosemide (LASIX) [...] Shobha Sneed RN)2121 ($Given - Provider: Kelly Nicholas RN) [...] RN)1602 ($Given - Provider: Shobha Sneed RN) 0029 ($Given - Provider: Patsy Bryant RN)0832 (Not Given - Provider: Shobha Sneed RN - Reason: Patient/family refused)1607 ($Given - Provider: Shobha Sneed, CARLOS)2341 ($Given - Provider: Isaac Hutchins, CARLOS) heparin [...] lumen 1458 ($Given - Provider: Aaron Noonan, RN) magnesium hydroxide (MILK OF MAGNESIA) suspension 30 mL 30 mL, Oral, AT BEDTIME, First dose (after last modification) on Fiona 12/24/23 at 2200, Shake well. Hold for loose stools. 2137 ($Given - Provider: Isaac Hutchins, CARLOS) nitroFURantoin [...] RN)203 ($Given - Provider: Isaac Hutchins RN) 0825 [...] Sneed RN)2122 (Rate/Dose Verify - Provider: Kelly Nicholas RN)2217 ($New Bag - Provider: Zofia Prasad RN) 1432 ($New Bag - Provider: Shobha Sneed RN)2038 (Rate/Dose Verify - Provider: Isaac Hutchins RN) 0635 (Rate/Dose Change - Provider: Isaac Hutchins RN)0728 (Stopped - Provider: Isaac Hutchins RN) ROPivacaine 0.2% (NAROPIN) 750 mL in ON-Q C-Bloc select flow ([id number] holds 600-750 mL) dual cath disposable pump [...] used when administering multiple Central Nervous System (SCREEN AND CYCLONE REPAIRER) depressing meds within a short time frame. [...] PRN, muscle spasms, Starting on Thu12/22/23 at 170, Hold for sedation. 0830 ($Given - Provider: [...] analgesic side effects. Hold while on IV SECURITY LEAD or with regular IV opioid dosing. 0435 ($Given - Provider: Oksana Flor RN)1601 (See Alternative - Provider: Shobha Sneed RN) 0015 (See Alternative - Provider: Patsy Bryant, CARLOS)0428 (See Alternative - Provider: Patsy Bryant RN)0830 (See Alternative - Provider: Shobha Sneed RN)1254 (See Alternative - Provider: Shobha Sneed, CARLOS)1713 [...] analgesic side effects. Hold while on IV SECURITY LEAD or with regular IV opioid dosing. 0435 (See Alternative - Provider: Oksana Flor RN)1601 ($Given - Provider: Shobha Sneed, RN) 0015 ($Given - Provider: Patsy Bryant, RN)0428 ($Given - Provider: Patsy Bryant, CARLOS)0830 ($Given - Provider: Shobha Sneed, RN)1254 ($Given [...] analgesic side effects. Hold while on IV SECURITY LEAD or with regular IV opioid dosing. Or oxyCODONE IR (ROXICODONE) tablet 10 mgJump to med 10 mg, Oral, EVERY 4 HOURS PRN, severe pain, Starting on Thu12/22/23 at 1627, Hold oral PRN dose for analgesic side effects. Notify provider to assess for uncontrolled pain or analgesic side effects. Hold while on IV SECURITY LEAD or with regular IV opioid dosing. Group [...] provider. documented in this encounter Care Teams X Ray Control Equipment Repairer Relationship Specialty Start Date End Date No Ref-Primary, Physician PCP - General 12/22/23 12/27/23 Alvaro Clark MD [address] [place] [address] Assigned Surgical Provider 07/24/23 Yessica Mcleod, PAJannetC [address] [place] [address] [phone] Assigned Cancer Care Provider 12/22/23 01/21/24 documented as of this encounter
--- OUTSIDE RECORDS SUMMARY | 2024-02-05 11:52 | XMS_ITS | Encounter Summary ---
Author Organization [facility] Address [address] [place] [id number] Care Team Providers Care Warehouse General Laborer Name Role Phone Alvaro Clark MD Unavailable System, Provider Not In Primary Care Provider Un available Sixto Whalen APRN, CNP Unavailable [phone] Encounter Details Date Type Department Care Team (Late st Contact Info) Description 12/11/2023 9:00 AM CDT Lab [address] 1st Floor [id number] Preop examination; Urothelial carcinoma of bladder [...] 02/11/2024 11:00 AM CDT Infusion Therapy Visit [address] [place] [phone] Ky Torres MD [address] [facility] [address] [place], [place] [phone] 03/11/2024 1:00 PM CDT Lab [address] [place] [phone] Yessica Mcleod PAJannetC [address] [place] [phone] 03/11/2024 1:00 PM CDT Infusion Therapy Visit [address] [place] [phone] 03/11/2024 1:30 PM CDT Oncology Visit [address] [place] [phone] Dylan Guerin PA [address] [place], [place] [phone] Yessica Mcleod PA-C [address] [place] [phone] 04/08/2024 1:00 PM [facility]IST Lab [address] [place] [phone] Yessica Mcleod PA-C [address] [place], [place] [phone] 04/08/2024 1:30 PM [employer]IST Oncology Visit [address] [place] [phone] Dylan Guerin PA [address] [place] [address] 04/08/2024 1:30 PM [employer]IST Infusion Therapy Visit [address] [place] [phone] 05/02/2024 10:30 AM [facility]IL[facility] REFUGE SPECIALIST Lab [address] [place] [phone] Ky Torres MD [address] [address] 05/02/2024 11:20 AM WILDL[employer] REFUGE SPECIALIST Appointment [facility] [address] [place] [phone] Ky Torres MD [address] [place] [address] [address] 05/06/2024 9:30 AM [facility]IL[employer] REFUGE SPECIALIST Lab [address] [place] [phone] Ky Torres MD [address] [address] 05/06/2024 10:00 AM [employer] RE[employer] SPECIALIST Oncology Visit [address] [place] [phone] Ky Torres MD [address] [facility] [address] [place], [place] [phone] 05/06/2024 10:30 AM [employer]IL[employer] RE[employer] SPECIALIST Infusion Therapy Visit [facility] [address] [place] [phone] Ky Torres MD [address] [facility] [address] [place] [address] documented as of this encounter Procedures Procedure [...] CDT [facility] BLOOD BANK SPECIMEN EXPIRATION DATE [id number] 12/10/2023 7:00 PM CDT [facility] B[facility]OD B[facility] Blood STRUCTURE OF LEFT UPPER LIMB / Unknown Venipuncture / Unknown 12/11/2023 8:32 AM CDT 12/11/2023 8:32 AM CDT Rizwana Tejeda APRN C IRON WORK[facility] LAB - BLOO D BANK TEST ORDER Performing Organization Address City/[facility]/ZIP Co de Phone Number BLOOD BANK [address] [place] [address], [facility] * Basic metabolic panel (12/11/2023 8:32 AM CDT) Sodium 140 135 - 145 mmol/L 12/11/2023 9:04 AM CDT [facility] Potassium 4.8 3.4 - 5.3 mmol/L 12/11/2023 9:04 AM CDT [facility] Chloride 103 98 - 107 mmol/L 12/11/2023 9:04 AM CDT [facility] Carbon Dioxide (CO2) 28 22 - 29 mmol/L 12/11/2023 9:04 AM CDT [facility] Anion Gap 9 7 - 15 mmol/L 12/11/2023 9:04 AM CDT [facility] Urea Nitrogen 14.4 8.0 - 23.0 mg/dL 12/11/2023 9:04 AM CDT [facility] Creatinine 0.86 0.67 - 1.17 mg/dL 12/11/2023 9:04 AM CDT [facility] GFR Estimate >90 >60 mL/min/1.7 3m2 12/11/2023 9:04 AM CDT [facility] Comment:eGFR calculated usin 2020 CKD-EPI equation. Calcium 9.2 8.8 - 10.2 mg/dL 12/11/2023 9:04 AM CDT [facility] Glucose 99 70 - 99 mg/dL 12/11/2023 9:04 AM CDT [facility] Blood STRUCTURE OF LEFT UPPER LIMB / Unknown Venipuncture / Unknown 12/11/2023 8:32 AM CDT 12/11/2023 8:32 AM CDT Rizwana Tejeda APRN C [facility] WORK[facility] - BLOO D ORDERABLES [facility] [address] [facility] 1st Floor Lab Core Lab [address] * (ABNORMAL) CBC with platelets (12/11/2023 8:32 AM CDT) WBC Count 7.1 4.0 - 11.0 10e3/uL 12/11/2023 8:38 AM CDT [facility] RBC Count 3.91(L) 4.40 - 5.90 10e6/uL 12/11/2023 8:38 AM CDT [facility] Hemoglobin 11.4(L) 13.3 - 17.7 g/dL 12/11/2023 8:38 AM CDT [facility] Hematocrit 34.8(L) 40.0 - 53.0 % 12/11/2023 8:38 AM CDT [facility] MCV 89 78 - 100 fL 12/11/2023 8:38 AM CDT [facility] MCH 29.2 26.5 - 33.0 pg 12/11/2023 8:38 AM CDT [facility] MCHC 32.8 31.5 - 36.5 g/dL 12/11/2023 8:38 AM CDT [facility] RDW 16.1(H) 10.0 - 15.0 % 12/11/2023 8:38 AM CDT [facility] Platelet Count 196 150 - 450 10e3/uL 12/11/2023 8:38 AM CDT [facility] Blood STRUCTURE OF LEFT UPPER LIMB / Unknown Venipuncture / Unknown 12/11/2023 8:32 AM CDT 12/11/2023 8:32 AM CDT Rizwana Tejeda APRN C [facility] WORK[facility] LAB - BLOO D ORDERABLES [facility] [place] [address] [facility] [address] 1st Floor Lab Core Lab [address] documented in this encounter Visit Diagnoses Diagnosis Preop examination Preoperative examination, unspecified 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 (H) documented in this encounter Care Teams Warehouse General Laborer Relationship Specialty Start Date End Date System, Provider Not In PCP - General Clinic 08/13/23 12/21/23 Alvaro Clark MD [address] [address] Assigned Surgical Provider 07/24/23 Sixto Whalen APRN CNP [address] [place] [address] Assigned Cancer Care Provider 10/22/23 12/21/23 documented as of this encounter
--- OUTSIDE RECORDS SUMMARY | 2024-02-05 11:52 | XMS_ITS | Encounter Summary ---
Author Organization [facility] Address [address] [place] [address] Care Team Providers Care Fan Engine Engineer Name Role Phone Alvaro Clark MD Unavailable No Ref-Primary, Physician Primary Care Provider Yessica Mcleod PA-C Unavailable Reason for Visit * Auth/Cert Specialty Diagnoses / Procedures Referred By Virgil t Referred To Contact Surgery Diagnoses 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 (H) 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 (H) [C67.9] Procedures OR REMV BLADDER,CONTINENT DIVERSN CYSTECTOMY, pelvic node dissection WITH ILEAL NEOBLADDER CREATION possible ileal conduit [facility] Periop [address] [place] [address] Referral ID Status Reason Start Date Expiration Date Visits Re quested Visits Authorized [id number] 1 1 Encounter Details Date Type Department Care Team (Late st Contact Info) Description 12/22/2023 8:00 AM CDT - 12/22/2023 1:00 PM CDT Surgery Formerly [facility] [address] [place] [address] Alvaro Clark MD [address] [facility] [address] [place] [address] CYSTECTOMY, pelvic node dissection WITH [...] Dai NP - 12/25/2023 10:13 AM CDT [facility] UroDischarge Summary Patient: Oleg Richard : 1960 [...] a bowel movement in 3 days, start mpad-nfx-lwnxmfn Milkof Magnesia taken twice daily until you [...] on their own within 5-10 days. - [place] will be removed at your follow up [...] follow-up appointment. - Your nurse or case supervisor will provide written catheter care instructions for [...] a clean towel or dried with a hair-clothespin drier operator. - You may shower with your catheter [...] Thursday through Thursday 8am to 4:30pm: Call [phone] with questions, requests for medication refills, or to schedule or confirm an appointment. - Nights, weekends, or holidays: call the after hours emergency pager - [phone] and tell the radio intelligence operator I would like to page the Urology Resident director of campus recreation. Typically, the on-call provider should return your call within 30 minutes. Please page the on-call provider again if you haven't been contacted as expected. Rarely, the on-call provider will be unable to promptly return a call due to a hospital emergency. If you have paged twice and are still not contacted, ask the hospital radio intelligence operator to page the urology CHIEF-RESIDENT director of campus recreation. - Please note that due to prescribing [...] to reach the Urology resident or PA director of campus recreation - [phone] to reach the Urology resident or PA director of campus recreation - Weeknights and weekends December 25, 2023 [...] Noe Erickson MD, MPH Urology Resident, PGY-2 STAFFING ASSOCIATE medications: Prior to Admission medications Medication Sig [...] questions or concerns regarding this patient. Note movie writer may be unavailable. To access [facility] from intranet: under Applications --> Business Applications select [facility] and search Urology Adult & Pediatric/[facility]. Please note that any question about a urology inpatient, [place] or [place], should go to job code [id number]. * [...] Noe Erickson MD, MPH Urology Resident, PGY-2 STAFFING ASSOCIATE medications: Prior to Admission medications Medication Sig [...] questions or concerns regarding this patient. Note movie writer may be unavailable. To access [facility] from intranet: under Applications --> Business Applications select [facility] and search Urology Adult & Pediatric/[facility]. Please note that any question about a urology inpatient, [place] or [place], should go to job code [id number]. * [...] identified Bed Mobility Bed Mobility supine-sit;sit-supine Supine-Sit Blanco (Bed Mobility) verbal cues Sit-Supine Blanco (Bed Mobility) verbal cues Transfers Transfers sit-stand transfer Sit-Stand Transfer Sit-Stand Blanco (Transfers) supervision Balance Balance Assessment no deficits identified Activities of Daily Living BADL Assessment/Intervention bathing;upper body dressing;lower body dressing;clothing fastener management;grooming;toileting Bathing Assessment/Intervention Blanco Level (Bathing) set up Comment, (Bathing) Per clinical judgement Upper Body Dressing Assessment/Training Comment, (Upper Body Dressing) Per clinical judgement Blanco Level (Upper Body Dressing) independent Lower Body Dressing Assessment/Training Blanco Level (Lower Body Dressing) modified independence Clothes Fastener Management Blanco Level (Clothes Fastener Management) independent Grooming Assessment/Training Blanco Level (Grooming) supervision Toileting Blanco Level (Toileting) supervision Clinical Impression Criteria for [...] Evaluation Time OT Eval, Low Complexity Minutes (08517) 10 OT Goals Therapy Frequency (OT) One [...] Management Self-Care/Home Mgmt/ADL, Compensatory, Meal Prep Minutes (22597) 12 Symptoms Noted During/After Treatment (Meal Preparation/Planning Training) increased pain Treatment Detail/Skilled Intervention OT: Facilitated ADL for increased IND within precautions. Pt educated on abdominal precautions, handout provided. Pt completed log roll technique for bed mobility with verbal cues, progressed to mod IND. Reviewed with pt LB dressing within precautions, pt unable to demo figure four, reported he is familiar with using riverboat captain tool for LB dressing and has slip on shoes he wears. Educated pt on IADLs with 10 # weight restriction. Pt demo'd mod IND mobility in room once set up with IV pole due to multiple lines, completed ADLS SBA and progressed to mod IND-IND. Therapeutic Activities Therapeutic Activity Minutes (41997) 10 Symptoms noted during/after treatment fatigue Treatment [...] MD. Camilla Larkin MD, PGY-2 Urology Resident STAFFING ASSOCIATE medications: Prior to Admission medications Medication Sig [...] questions or concerns regarding this patient. Note movie writer may be unavailable. To access [facility] from intranet: under Applications --> Business Applications select [employer] and search Urology Adult & Pediatric/[facility]. Please note that any question about a urology inpatient, [place] or [place], should go to job code [id number]. * [...] cath with red output. BS+, passing flatus. Leedey urge sat Diet: Clears. Skin/Incisions/Drains: Midline abd [...] 5:41 AM CDT Goal Outcome Evaluation: Shift [id number] A&Ox4, cooperative, makes needs known. Abdominal pain [...] Nicholas RN - 12/24/2023 3:41 AM CDT [id number] Status: OD#1 s/p cystectomy with ileal neobladder [...] and pt belching. thanks. shobha ho rn [phone] * Plan of Care - Ana Thomason OTR - 12/23/2023 11:53 AM CDT Occupational Therapy Discharge Summary Reason for therapy discharge: All goals and outcomes met, no further needs identified. Progress towards therapy goal(s). See goals on Care Plan in [facility] electronic health record for goal details. [...] Date: 12/22/2023 Attending Surgeon: Alvaro Clark MD Swine Genetics Researcher(s): Alberto Tejeda M.D.-PGY-5 Preoperative Diagnosis(es): High grade [...] in the usual sterile fashion. A #16 Solomon Islander Parry catheter was placed in the bladder. [...] and vein from the lymph node of Brooks proximally to join up with the proximal [...] sutures. We then performed a standard stapled bxwe-pz-sfrl functional end-to-end small bowel anastomosis by firing a JORGE 60 stapler along the antimesenteric border and closed the enterotomies for the anastomosis using a TA 60 stapler. The crossing staple lines were reinforced using 3-0 silk suture in a gfrycv-ei-hslwg fashion. A similar suture was done at [...] away from thepouch. We placed a #19 Solomon Islander Brandon drain into the plane between the [...] Tejeda MD - 12/22/2023 2:[address] [facility] Brief Operative Note Pre-operative diagnosis: Urothelial carcinoma [...] Implant Name Type Inv. Item Serial No. Security Field Supervisor Lot No. LRB No. Used Action STENT URETERAL ENGINEERING [employer]AC[employer]Y DIVERSION 07FR [id number] - [id number] Stent STENT URETERAL ENGINEERING FACULTY DIVERSION [id number] [employer] [id number] N/A 1 Implanted Fluids: 3200 crystalloid 250 albumin Admit Urology Urology to irrigate AM and PM Neobladder pathway Alberto Tejeda MD Urology PGY-5 * Pharmacy-Admission Medication History - Uriel Kaba - 12/15/2023 12:03 PM CDT Towel Folder Pre-operative Admission Medication History Admission medication history [...] 09/14/23 per dispense history. Changes made to STAFFING ASSOCIATE medication list: Added: None Deleted: None Changed: None Allergies reviewed with patient and updates made in EHR: yes Medication History Completed By: Uriel Kaba 12/15/2023 12:03 PM STAFFING ASSOCIATE Med List Medication Sig Last Dose acetaminophen-caffeine (EXCEDRIN TENSION HEADACHE) 500-65 MG TABS Take 2 tablets by mouth every 6 hours as needed for mild pain (PRN HEADACHE) diphenhydrAMINE HCl (BENADRYL ALLERGY PO) Take 1 tablet by mouth as needed Associated attestation - Nabeel Mcghee RPH - 12/15/2023 12:17 PM CDT I was not present during the international relations teacher's interview, but I agree with the documentation. Nabeel Mcghee, Pharm.D, [facility] December 15, 2023 documented in this encounter Plan of Treatment Upcoming Encounters Date Type Department Care Team (Late st Contact Info) Description 02/11/2024 11:00 AM CDT Infusion Therapy Visit [address] [place] [phone] Ky Torres MD [address] [place] [phone] 03/11/2024 1:00 PM CDT Lab [address] [place] [phone] Yessica Mcleod, PAJannetC [address] [place] [address] 03/11/2024 1:00 PM CDT Infusion Therapy Visit [place] [address] [place] [phone] 03/11/2024 1:30 PM CDT Oncology Visit [address] [place] [phone] Dylan Guerin PA [address] [place], [place] [phone] Yessica Mcleod PAJose Luis [address] [place] [phone] 04/08/2024 1:00 PM LIEUTENANT FIRE FIGHTER Lab [place] [address] [place] [phone] Yessica Mcleod PA-C [address] [place] [address] 04/08/2024 1:30 PM LIEUTENANT FIRE FIGHTER Oncology Visit [address] [place] [address] Dylan Guerin PA [address] [place] [address] 04/08/2024 1:30 PM LIEUTENANT FIRE FIGHTER Infusion Therapy Visit [address] [place] [address] 05/02/2024 10:30 AM LIEUTENANT FIRE FIGHTER Lab [address] [place] [address] Ky Torres MD [address] [address] 05/02/2024 11:20 AM LIEUTENANT FIRE FIGHTER Appointment [facility] [address] [place] [address] Ky Torres MD [address] [address] 05/06/2024 9:30 AM LIEUTENANT FIRE FIGHTER Lab [address] [place] [phone] Ky Torres MD [address] [address] 05/06/2024 10:00 AM LIEUTENANT FIRE FIGHTER Oncology Visit [facility] [address] [place] [address] Ky Torres MD 420 [facility] [address] [place] [address] 05/06/2024 10:30 AM LIEUTENANT FIRE FIGHTER Infusion Therapy Visit [facility] [address] [place] [address] Ky Torres MD [address] [facility] [address] [place] [address] documented as of this encounter Procedures Procedure [...] BODY FLUIDS OR DERABLES [facility] [place] [facility] [address] [facility], [address] [place] [address], [facility] * (ABNORMAL) CBC with platelets (12/25/2023 [...] - BLOOD ORDERABL ES [facility] [address] [facility], [address] [place] [address], [facility] * (ABNORMAL) Basic metabolic panel (12/25/2023 [...] - BLOOD ORDERABL ES [facility] [address] [facility], [address] [place] [address] * Phosphorus (12/24/2023 6:16 AM CDT) Phosphorus 2.9 2.5 - 4.5 mg/dL 12/24/2023 7:26 AM CDT [facility] Blood (Portacath) IVAD (Port) / Unknown 12/24/2023 6:16 AM CDT 12/24/2023 6:41 AM CDT Alberto Tejeda MD LAB - BLOOD ORDERABL ES [facility] [address] [facility], [address] [place] [address] * Magnesium (12/24/2023 6:16 AM CDT) [facility] Magnesium 1.8 1.7 - 2.3 mg/dL 12/24/2023 10:59 AM CDT [facility] Blood (Portacath) IVAD (Port) / Unknown 12/24/2023 6:16 AM CDT 12/24/2023 6:41 AM CDT Alberto Tejeda MD LAB - BLOOD ORDERABL ES [facility] [address] [facility], [address] [phone] * (ABNORMAL) CBC with platelets (12/24/2023 6:16 AM CDT) [facility] WBC Count 9.8 4.0 - 11.0 [...] - BLOOD ORDERABL ES [facility] [facility] [address] [facility], [address] [place] [address] * (ABNORMAL) Basic metabolic panel (12/24/2023 [...] - BLOOD ORDERABL ES [facility] [place] [facility] [address] [facility], [address] [place] [address] * (ABNORMAL) CBC with platelets (12/23/2023 7:04 AM CDT) Pathologist [facility] WBC Count 12.1(H) 4.0 - 11.0 10e3/uL [...] - BLOOD ORDERABL ES [facility] [facility] [address] [facility], [address] [place] [address] * (ABNORMAL) Basic metabolic panel (12/23/2023 [...] - BLOOD ORDERABL ES [facility] [address] [facility], [address] * (ABNORMAL) Glucose by meter (12/23/2023 6:42 AM CDT) GLUCOSE BY METER POCT 118(H) 70 - 99 mg/dL 12/23/2023 6:49 AM CDT [facility] POC Blood, Capillary BLOOD SPECIMEN / Unknown 12/23/2023 6:42 AM CDT 12/23/2023 6:49 AM CDT Alvaro Clark MD LAB - BEAKER POCT Performing Organization Address City/[facility]/ZIP Co de Phone Number [facility] POC [facility] [address] [facility], [address] * Platelet count (12/22/2023 9:55 PM CDT) Platelet Count 179 150 - 450 10e3/uL 12/22/2023 10:12 PM CDT [facility] Blood STRUCTURE OF RIGHT HAND / Unknown IVAD (Port) / Unknown 12/22/2023 9:55 PM CDT 12/22/2023 10:04 PM CDT Alberto Tejeda MD LAB - BLOOD ORDERABL ES Performing Organization Address [facility]/ZIP Co de Phone Number [facility] [facility] [address] [facility], [address] * XR Abdomen Port 1 View (12/22/2023 3:16 PM CDT) Anatomical Region Laterality Modality Abdomen/Pelvis Computed Radiogr aphy Impressions 12/22/2023 3:50 PM CDT IMPRESSION: Ureteral stents project over the expected location of the UPJ bilaterally. I have personally reviewed the examination and initial interpretation and I agree with the findings. ALF MEHTA, DO Narrative 12/22/2023 3:50 PM CDT EXAMINATION: [...] Case Report Surgical Pathology Report ? Case: [id number] ? Authorizing Provider: ??Alvaro Clark MD ?Collected: ? 12/22/2023 08:54 AM ? Ordering Location: ? [facility] MAIN OR ? Received: ?12/22/2023 09:00 AM ? Pathologist: ? Marlin Tenorio, ? Intraop: ? Tracie Gonzalez MD ? [...] ureteral marigin ? 4 6:31 PM CDT SPECIALTY LABS Final Diagnosis A. Left distal [...] Histologic Grade: ? Grade: ?Grade group 2 ([place] Score 3 + 4 = 7) ?? [...] 9:15 AM Intra op performed at: LABORATORY, [facility] Core Lab, [address] [facility], [address] [address] Intra-op Dx verbally delivered to Dr. Amber Tanner(2). Ureter, Right, Right distal ureteral margin: BFS1: Negative for malignancy John Carey MD on 12/22/2023 at 9:27 AM Intra op performed at: LABORATORY, [facility], [address] [facility], [address] [address] Intra-op Dx verbally delivered to Dr. Amber Segura(3). Urethra, urethral margin: CFS1: - No evidence of malignancy Tracie Gonzalez MD on 12/22/2023 at 10:41 AM Intra op performed at:[facility] LABORATORY, [facility] [facility], [address] [place] [address], [address], [facility] [phone] Intra-op Dx verbally delivered to Dr. Clark [...] reveal no mass deposits or lymph nodes. Spray Gun Sizer sections are submitted. Gross photography is taken. D1-urethral margin, en face D2-right ureter margin, en face D3-left ureter margin, en face D4-lesion to right ureteral orifice D5-lesion to left ureteral orifice M9-W74-ljsbqd from dome to trigone Y57-vgaeyv to seminal vesicles R30-vwydq lateral wall J73-xjrnngyy bladder wall F20-inoa U21-M34-nnodu prostatic apex X25-V86-evta prostatic apex D23-mid prostate, right anterior D24-mid prostate, left posterior D25-mid prostate, left anterior D26-mid prostate, left posterior G53-kprk prostate, right anterior P90-puln prostate, right posterior X68-zrgq prostate, mid W59-jcki prostate, left anterior Q34-cinv prostate, left posterior E(5). Lymph Node(s), Pelvis, [...] possible lymph nodes E2-intact possible lymph node O2-N6-xqgbbdkc possible lymph node O5-O9-lhnuzkes possible lymph node H6-Z33-xxzafomt sectioned possible lymph node F(6). Lymph Node(s), [...] possible lymph nodes F2-bisected possible lymph node M6-R3-qpakssbg sectioned possible lymph node G(7). Ureter, Left, [...] component of this testing was completed at [facility]. Stain controls for all [...] CDT Alvaro CONROY AP Performing Organization Address City/[facility]/ZIP Co de Phone Number SPECIALTY LABS Specialty Lab [address] [facility], [address] [phone] [address] [facility], [address] [place] [address] * (ABNORMAL) Glucose by meter (12/22/2023 6:55 AM CDT) [facility] GLUCOSE BY METER POCT 101(H) 70 - 99 mg/dL 12/22/2023 7:01 AM CDT [facility] LAB[facility] POC Blood, Capillary BLOOD SPECIMEN / Unknown 12/22/2023 6:55 AM CDT 12/22/2023 7:01 AM CDT Alvaro OCNROY POCT [facility] POC [facility] [address] [facility], [address] [place] [address] * Adult Type and Screen (12/22/2023 6:47 AM CDT) ABO/RH(D) A NEG 12/22/2023 6:16 AM CDT BLOOD BANK Antibody Screen Negative Negative 12/22/2023 6:16 AM CDT BLOOD BANK SPECIMEN EXPIRATION DATE [id number] 12/22/2023 6:16 AM CDT BLOOD BANK Blood STRUCTURE OF RIGHT HAND / Unknown Venipuncture / Unknown 12/22/2023 6:47 AM CDT 12/22/2023 6:56 AM CDT Alvaro Clark MD LAB - BLOOD BANK LICHA T ORDER BLOOD BANK [address] [place] [address], [facility] documented in this encounter [...] analgesic side effects. Hold while on IV MEDIUM CYCLE SALESPERSON or with regular IV opioid dosing. $Given [...] analgesic side effects. Hold while on IV MEDIUM CYCLE SALESPERSON or with regular IV opioid dosing. $Given [...] 750 mL in ON-Q C-Bloc select flow ([id number] holds 600-750 mL) dual cath disposable pump [...] RN) 0014 ($Given - Provider: Patsy Bryant, RN)0819 (Not Given - Provider: Shobha Sneed, [...] RN) 08 ($Given - Provider: Shobha Sneed RN)2037 ($Given - Provider: Isaac Hutchins RN) 0701 [...] Shobha Sneed, CARLOS)1430 ($Given - Provider: Shobha Sneed RN)2037 ($Given - Provider: Isaac Hutchins RN) 0702 [...] loose stools. 2138 ($Given - Provider: Isaac Hutchins, CARLOS) nitroFURantoin [...] Sneed, CARLOS) 0700 ($Given - Provider: Isaac Hutchins, [...] RN) 0825 ($Given - Provider: Aaron Noonan RN) sodium chloride (PF) 0.9% PF flush 3 mL 3 mL, Intracatheter, EVERY 8 HOURS, First dose on Thu12/22/23 at 2100, to lock peripheral IV dormant line 0657 (Not Given - Provider: Oksana Flor RN - Reason: Patient sleeping)1208 (Not Given - Provider: Shobha Sneed RN - Reason: IV Infusing)2132 ($Given - Provider: Kelly Nicholas RN) 0450 [...] RN)1602 (Rate/Dose Change - Provider: Shobha Sneed, RN)2122 (Rate/Dose Verify - Provider: Kelly Nicholas, RN)2217 ($New Bag - Provider: Zofia Prasad RN) 1432 ($New Bag - Provider: Shobha Sneed, RN)203 (Rate/Dose Verify - Provider: Isaac Hutchins RN) 0635 (Rate/Dose Change - Provider: Isaac Hutchins RN)0728 (Stopped - Provider: Isaac Hutchins RN) ROPivacaine 0.2% (NAROPIN) 750 mL in ON-Q C-Bloc select flow ([id number] holds 600-750 mL) dual cath disposable pump [...] PRN, moderate pain, Starting on Thu12/22/23 at 1708, IF patient unable to take oral pain medication or pain not controlled with oral analgesics. Hold IV PRN opioid dose for analgesic side effects. Notify provider to assess for uncontrolled pain or analgesic side effects. HYDROmorphone (DILAUDID) injection 0.4 mg(Linked Group 1) 0.4 mg, Intravenous, EVERY 2 HOURS PRN, severe pain, Starting on Thu12/22/23 at 1708, IF patient unable to take oral pain [...] used when administering multiple Central Nervous System (DEALERSHIP GENERAL MANAGER) depressing meds within a short time frame. [...] Hutchins, CARLOS) 0700 ($Given - Provider: Isaac Hutchisn RN) naloxone (NARCAN) injection 0.2 mg(Linked Group [...] analgesic side effects. Hold while on IV MEDIUM CYCLE SALESPERSON or with regular IV opioid dosing. 0435 ($Given - Provider: Oksana Flor RN)1601 (See Alternative - Provider: Shobha Sneed RN) 0015 (See Alternative - Provider: Patsy Bryant, CARLOS)0428 (See Alternative - Provider: Patsy Bryant, CARLOS)0830 (See Alternative - Provider: Shobha Sneed, CARLOS)1254 (See Alternative - Provider: Shobha Sneed RN)1713 [...] analgesic side effects. Hold while on IV MEDIUM CYCLE SALESPERSON or with regular IV opioid dosing. 0435 (See Alternative - Provider: Oksana Flor RN)1601 ($Given - Provider: Shobha Sneed RN) 0015 ($Given - Provider: Patsy Bryant, CARLOS)0428 ($Given - Provider: Patsy Bryant, CARLOS)0830 ($Given - Provider: Shobha Sneed RN)1254 ($Given - Provider: Shobha Sneed, CARLOS)1713 ($Given - Provider: Shobha Sneed, CARLOS)2138 ($Given - Provider: Isaac Hutchins, CARLOS) prochlorperazine [...] over 2-5 Minutes, Starting on Thu12/22/23 at 0, This [...] analgesic side effects. Hold while on IV MEDIUM CYCLE SALESPERSON or with regular IV opioid dosing. Or oxyCODONE IR (ROXICODONE) tablet 10 mgJump to med 10 mg, Oral, EVERY 4 HOURS PRN, severe pain, Starting on Thu12/22/23 at 1627, Hold oral PRN dose for analgesic side effects. Notify provider to assess for uncontrolled pain or analgesic side effects. Hold while on IV MEDIUM CYCLE SALESPERSON or with regular IV opioid dosing. Group [...] provider. documented in this encounter Care Teams Fan Engine Engineer Relationship Specialty Start Date End Date No Ref-Primary, Physician PCP - General 12/22/23 12/27/23 Alvaro Clark MD [address] [place] [address] [address] [place] [address] Assigned Surgical Provider 07/24/23 Yessica Mcleod PA-C [address] [place] [address] Assigned Cancer Care Provider 12/22/23 01/21/24 documented as of this encounter
--- OUTSIDE RECORDS SUMMARY | 2024-02-05 11:52 | XMS_ITS | Encounter Summary ---
Author Organization [facility] Address [address] [place] [address] Care Team Providers Care Berry Grower Name Role Phone Alvaro Clark MD Unavailable System, Provider Not In Primary Care Provider Un available Sixto Whalen APRN DIRECTOR FIXED INCOME Unavailable [phone] Encounter Details Date Type Department Care Team (Late st Contact Info) Description 12/11/2023 PRE VISIT [facility] Preoperative Assessment [facility] [address] 5th [place] [phone] Rizwana Tejeda APRN DIRECTOR FIXED INCOME [address] [place] [address] Social History Tobacco Use Types Packs/Day Years [...] 11:00 AM CDT Infusion Therapy Visit [address] [place] [address] Ky Torres MD [address] [address] 03/11/2024 1:00 PM CDT Lab [place] [address] [place] [address] Yessica Mcleod, PAJannetC 909 [place], [place] 05[address]85 03/11/2024 1:00 PM CDT Infusion Therapy Visit [place] [address] [address] [place] [address] 03/11/2024 1:30 PM CDT Oncology Visit [place] [address] [place] [address] Dylan Guerin PA [address] [place], [place] [address] Yessica Mcleod PA-C 909 [place], [place] 252955 04/08/2024 1:00 PM SURFACE GRINDER Lab [place] [address] [place] [address] Yessica Mcleod PA-C 909 [place] [address] 04/08/2024 1:30 PM SURFACE GRINDER Oncology Visit [address] [place] [address] Dylan Guerin PA 909 [place] [address] 04/08/2024 1:30 PM SURFACE GRINDER Infusion Therapy Visit [address] [place] [address] 05/02/2024 10:30 AM SURFACE GRINDER Lab [address] [place] [address] Ky Torres MD [address] [address] 05/02/2024 11:20 AM SURFACE GRINDER Appointment [facility] Imaging [address] [place] [address] Ky Torres MD [address] [address] 05/06/2024 9:30 AM SURFACE GRINDER Lab [address] [place] [address] Ky Torres MD 420 [facility] 480 [place] [address] 05/06/2024 10:00 AM SURFACE GRINDER Oncology Visit [address] [place] [address] Ky Torres MD 420 [facility] 480 [place] [address] 05/06/2024 10:30 AM SURFACE GRINDER Infusion Therapy Visit [facility] [address] [place] [address] Ky Torers MD [address] 437575 documented as of this encounter Visit Diagnoses Not on filedocumented in this encounter Care Teams Berry Grower Relationship Specialty Start Date End Date System, Provider Not In PCP - General Clinic 08/13/23 12/21/23 Alvaro Clark MD 420 [facility] 394 [place], [place] 074565 Assigned Surgical Provider 07/24/23 Sixto Whalen APRN CNP [address] [place] [address] [id number] Assigned Cancer Care Provider 10/22/23 12/21/23 documented as of this encounter
--- OUTSIDE RECORDS SUMMARY | 2024-02-05 11:52 | XMS_ITS | Encounter Summary ---
Author Organization [facility] Address [address] [place] [address] Care Team Providers Care Telephone Order Clerk Room Service Name Role Phone Alvaro Clark MD Unavailable No Ref-Primary, Physician Primary Care Provider Yessica Mcleod PA-C Unavailable Reason for Visit * Auth/Cert Specialty Diagnoses / Procedures Referred By Contkatlyn t Referred To Contact Surgery Diagnoses 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 (H) 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 (H) [C67.9] Procedures IL REMV BLADDER,CONTINENT DIVERSN CYSTECTOMY, pelvic node dissection WITH ILEAL NEOBLADDER CREATION possible ileal conduit [facility] Periop [address] [place] [address] Referral ID Status Reason Start Date Expiration Date Visits Re quested Visits Authorized [id number] 1 1 Encounter Details Date Type Department Care Team (Late st Contact Info) Description 12/22/2023 7:48 AM CDT Anesthesia Event [facility] PeriOp Services [address] [place] [address] Forest Olson MD 420 [place], [place] 239375 Anesthesia Record Procedure Summary Procedure Name Responsible Anesthesiologist Anesthesia Start Time Anesthesia Stop Time CYSTECTOMY, pelvic node dissection WITH ILEAL NEOBLADDER CREATION (Abdomen) Forest Olson MD 12/22/23 0748 12/22/23 1437 Events Date Time Event Comment 12/22/2023 0654 OBGYN NURSE Ready for Procedure 0747 0748 An Start [...] recorded are pre- induction. Nessa Pereira APRN OBGYN NURSE 0757 An Induction 0802 An Intubation 0810 Anesthesia Ready for Procedu re 1428 AN Extubation All extubation criteria met prior to removal. 1430 an stop data 1437 An Stop Electronically signed by Nessa Pereira APRN OBGYN NURSE on December 22, 2023 2:37 PM Meds [...] Single 08/28/23; 09; Right; Chest wall; Yes; [id number]; Yes; Yes; 6 Fr; 21 cm; SVC/RA [...] Cowan 2; Grade View: 1; Placement Person: OBGYN NURSE; Attempts: 1 12/22/23 0802 by Nessa Pereira APRN OBGYN NURSE 12/22/23 1428 by Nessa Pereira APRN OBGYN NURSE Peripheral IV 12/22/23; 0804; 18 G ; [...] Drain 12/22/23; 1408; RLQ ; Bulb; 19 Maltese 12/22/23 1408 by Natasha Alejo RN 12/25/23 [...] Start/Stop Times: 12/22/2023 8:02 AM Staff - OBGYN NURSE: Nessa Pereira APRN OBGYN NURSE Performed By: CRNAIndications and Patient Condition Indications [...] P in preparation for Procedure Information Case: [id number] Date/Time: 12/22/23 0800 Procedure: CYSTECTOMY, pelvic node [...] BLADDER TUMOR; Surgeon: Alvaro Clark MD; Location: [facility] OR Prior to Admission Medications No current [...] Resource Strain: High Risk (06/01/2021) [email or web address] Financial Resource Strain ??? Difficulty of Paying Living Expenses: Not on file ??? Difficulty of Paying Living Expenses: Not on file Food Insecurity: Not on file Transportation Needs: Not on file Physical Activity: Not on file Stress: Not on file Social Connections: Unknown (08/15/2021) Received from [facility], [facility] Social Connections ??? 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 Denies any exertional dyspnea or [...] Total time: 24 minutes Rizwana Tejeda APRN [facility] Preoperative Assessment Center [facility] Physical Exam [...] and realistic alternatives discussed. Questions answered and patient/unit support representative(s) expressed understanding. - Discussed: - Discussed [...] 02/11/2024 11:00 AM CDT Infusion Therapy Visit [address] [place] [address] Ky Torres MD 420 [facility] 480 [place], [place] [address] 03/11/2024 1:00 PM CDT Lab [address] [place] [address] Yessica Mcleod, PAJannetC 902 [place], [place] 357645 03/11/2024 1:00 PM CDT Infusion Therapy Visit [address] [place] [address] 03/11/2024 1:30 PM CDT Oncology Visit [address] [place] [address] Dylan Guerin PA 909 [place], [place] 541115 Yessica Mcleod PA-C 900 [place], [place] 887995 04/08/2024 1:00 PM FLOOR COVERING PRINTER Lab [address] [place] [address] Yessica Mcleod, PA-C 907 [place] [address] 04/08/2024 1:30 PM FLOOR COVERING PRINTER Oncology Visit [address] [place] [address] Dylan Guerin PA 909 [place] [address] 04/08/2024 1:30 PM FLOOR COVERING PRINTER Infusion Therapy Visit [address] [place] [address] 05/02/2024 10:30 AM FLOOR COVERING PRINTER Lab [address] [place] [address] Ky Torres MD [address] [address] 05/02/2024 11:20 AM FLOOR COVERING PRINTER Appointment [facility] Center Imaging [address] [place] [address] Ky Torres MD [address] [address] 05/06/2024 9:30 AM FLOOR COVERING PRINTER Lab [address] [place] [address] Ky Torres MD [address] [address] 05/06/2024 10:00 AM FLOOR COVERING PRINTER Oncology Visit [address]AREZ [facility] [place] [address] Ky Torres MD [address] [place] [facility] 480 [place] [address] 05/06/2024 10:30 AM FLOOR COVERING PRINTER Infusion Therapy Visit [facility] [address] [place] [address] Ky Torres MD [address] [place] [facility] 480 [place] [address] documented as of this encounter Procedures Procedure Name Priority Date/Time Associated Diagnosis Comments ANE AIRWAY ETT PERFORMABLE Routine 12/22/2023 8:02 AM CDT documented in this encounter Results * ANE AIRWAY ETT PERFORMABLE (12/22/2023 8:02 AM CDT) Narrative Nessa Pereira APRN OBGYN NURSE - 12/22/2023 8:02 AM CDT Nessa Pereira APRN CRNA ? 12/22/2023 ??8:22 AM Airway ? Patient location during procedure: OR ? Procedure Start/Stop Times: 12/22/2023 8:02 AM Staff - ? OBGYN NURSE: Nessa Pereira APRN OBGYN NURSE ? Performed By: CRNAIndications and Patient Condition [...] Time: 12/22/2023 8:02 AM Forest Olson MD [place] ANESTHESIA documented in this encounter Visit Diagnoses [...] mg documented in this encounter Care Teams Telephone Order Clerk Room Service Relationship Specialty Start Date End Date No Ref-Primary, Physician PCP - General 12/22/23 12/27/23 Alvaro Clark MD [address] [place] [address] Assigned Surgical Provider 07/24/23 Yessica Mcleod PA-C [address] [place] [address] Assigned Cancer Care Provider 12/22/23 01/21/24 documented as of this encounter
--- OUTSIDE RECORDS SUMMARY | 2024-02-05 11:52 | XMS_ITS | Encounter Summary ---
Author Organization [facility] Address [address] [place] [address] Care Team Providers Care Boiler Room Helper Name Role Phone Alvaro Clark MD Unavailable System, Provider Not In Primary Care Provider Un available Sixto Whalen APRN HEALTH SAFETY MANAGER Unavailable [phone] Encounter Details Date Type Department Care Team (Late st Contact Info) Description 12/08/2023 PRE VISIT [facility] Preoperative Assessment Center [address] 5th [place] [phone] Rizwana Tejeda APRN HEALTH SAFETY MANAGER 5[address] [place] [address] Social History Tobacco Use Types Packs/Day Years [...] 02/11/2024 11:00 AM CDT Infusion Therapy Visit [address] [place] [address] Ky Torres MD [address] 5644[address] 03/11/2024 1:00 PM CDT Lab [place] [address] [place] [address] Yessica Mcleod, PAJannetC 909 [place], [place] [address]35 03/11/2024 1:00 PM CDT Infusion Therapy Visit [place] [address] [place] [address] 03/11/2024 1:30 PM CDT Oncology Visit [place] [address] [place] [address] Dylan Guerin PA [address] [place], [place] [address] Yessica Mcleod PA-C [address] [place], [place] 010415 04/08/2024 1:00 PM EXTRACORPOREAL CIRCULATION SPECIALIST Lab [place] [address] [place] [address] Yessica Mcleod PA-C 909 [place] [address] 04/08/2024 1:30 PM EXTRACORPOREAL CIRCULATION SPECIALIST Oncology Visit [address] [place] [address] Dylan Guerin PA 909 [place] [address] 04/08/2024 1:30 PM EXTRACORPOREAL CIRCULATION SPECIALIST Infusion Therapy Visit [address] [place] [address] 05/02/2024 10:30 AM EXTRACORPOREAL CIRCULATION SPECIALIST Lab [address] [place] [address] Ky Torres MD [address] [address] 05/02/2024 11:20 AM EXTRACORPOREAL CIRCULATION SPECIALIST Appointment [facility] Imaging [address] [place] [address] Ky Trores MD [address] [address] 05/06/2024 9:30 AM EXTRACORPOREAL CIRCULATION SPECIALIST Lab [address] [place] [address] Ky Torres MD 420 [facility] 480 [place] [address] 05/06/2024 10:00 AM EXTRACORPOREAL CIRCULATION SPECIALIST Oncology Visit [address] [place] [address] Ky Torres MD 420 [facility] 480 [place] [address] 05/06/2024 10:30 AM EXTRACORPOREAL CIRCULATION SPECIALIST Infusion Therapy Visit [facility] [address] [place] [address] Ky Torres MD [address] 408[address] documented as of this encounter Visit Diagnoses Not on filedocumented in this encounter Care Teams Boiler Room Helper Relationship Specialty Start Date End Date System, Provider Not In PCP - General Clinic 08/13/23 12/21/23 Alvaro Clark MD 420 [facility] 394 [place], [place] 049725 Assigned Surgical Provider 07/24/23 Sixto Whalen APRN CNP [address] [place] [address] 223505 Assigned Cancer Care Provider 10/22/23 12/21/23 documented as of this encounter
--- OUTSIDE RECORDS SUMMARY | 2024-02-05 11:53 | XMS_ITS | Encounter Summary ---
Author Organization [facility] Address [address] [place] [address] Care Team Providers Care Bank President Name Role Phone Alvaro Clark MD Unavailable System, Provider Not In Primary Care Provider Un available Sixto Whalen APRN YOUTH CORRECTIONS OFFICER Unavailable [phone] No Ref-Primary, Physician Primary Care Provider Yessica Mcleod PA-C Unavailable Bhavin Gardner Primary Care Provider [phone] Ky Torres MD Unavailable [phone] Encounter Details Date Type Department Care Team (Late st Contact Info) Description 12/01/2023 MyC Medical Advice [facility] [address] [facility] [place] [address] Sabra Wilcox Social History Tobacco Use Types [...] 11:00 AM CDT Infusion Therapy Visit [facility] [address] [place] [address] Ky Torres MD [address] 9105[address] 03/11/2024 1:00 PM CDT Lab [address] [place] [address] Yessica Mcleod PA-C [address] [place] [address] 03/11/2024 1:00 PM CDT Infusion Therapy Visit [address] [place] [address] 03/11/2024 1:30 PM CDT Oncology Visit [address] [place] [address] Dylan Guerin PA [address] [place] [address] 810585 Yessica Mcleod PA-C [address] [place] [address] 580625 04/08/2024 1:00 PM EPIC AMBULATORY ANALYSTS Lab [address] [place] [address] Yessica Mcelod PA-C [address] [place] [address] 687075 04/08/2024 1:30 PM EPIC AMBULATORY ANALYSTS Oncology Visit [address] [place] [address] Dylan Guerin PA 9 [facility] [place] [address] 04/08/2024 1:30 PM EPIC AMBULATORY ANALYSTS Infusion Therapy Visit [address] [place] [address] 05/02/2024 10:30 AM EPIC AMBULATORY ANALYSTS Lab [address] [place] [address] Ky Torres MD [address] [place] [address] [address] 05/02/2024 11:20 AM EPIC AMBULATORY ANALYSTS Appointment [facility] Imaging [address] [place] [address] Ky Torres MD [address] [place] [address] [facility] 480 [place], [place] 4[address] 05/06/2024 9:30 AM EPIC AMBULATORY ANALYSTS Lab [address] [place] [address] Ky Torres MD [address] [place] [address] [facility] 480 [place] [address] 05/06/2024 10:00 AM EPIC AMBULATORY ANALYSTS Oncology Visit [address] [place] [address] Ky Torres MD [address] [place] [address] [facility] [address] [place] [address] 05/06/2024 10:30 AM EPIC AMBULATORY ANALYSTS Infusion Therapy Visit [facility] [address] [place] [address] Ky Torres MD 420 [facility] 480 [place], [place] 589625 documented as of this encounter Visit Diagnoses Not on filedocumented in this encounter Care Teams Bank President Relationship Specialty Start Date End Date System, Provider Not In PCP - General Clinic 08/13/23 12/21/23 No Ref-Primary, Physician PCP - General 12/22/23 12/27/23 Bhavin Gardner [facility] [address] PCP - General Family Medicine 12/28/23 Alvaro Clark MD 420 [facility] 394 [place], [place] 013945 Assigned Surgical Provider 07/24/23 Sixto Whalen APRN CNP [address] [place] [address] Assigned Cancer Care Provider 10/22/23 12/21/23 Yessica Mcleod PA-C 909 [place], [place] 263385 Assigned Cancer Care Provider 12/22/23 01/21/24 Ky Torres MD 420 [facility] 480 [place] [address] Assigned Cancer Care Provider 01/22/24 documented as of this encounter
--- OUTSIDE RECORDS SUMMARY | 2024-02-05 11:53 | XMS_ITS | Encounter Summary ---
Author Organization [facility] Address [address] [place] [address]. [place] [address] Care Team Providers Care Director Fixed Income Name Role Phone Alvaro Clark MD Unavailable System, Provider Not In Primary Care Provider Un available Sixto Whalen APRN MANAGER SURGERY Unavailable [phone] No Ref-Primary, Physician Primary Care Provider Yessica Mcleod PA-C Unavailable Bhavin Gardner Primary Care Provider [phone] Ky Torres MD Unavailable [phone] Encounter Details Date Type Department Care Team (Late st Contact Info) Description 11/17/2023 MyC Medical Advice [facility] [place] [address], [address] [place] [address] Sixto Whalen APRN MANAGER SURGERY 909 [place] [address] Social History Tobacco Use Types Packs/Day Years [...] 02/11/2024 11:00 AM CDT Infusion Therapy Visit [address] [place] [address] Ky Torres MD 420 [facility] 480 [place], [place] 4[address] 03/11/2024 1:00 PM CDT Lab [address] [place] [address] Yessica Mcleod PA-C [address] [place] [address] 831575 03/11/2024 1:00 PM CDT Infusion Therapy Visit [address] [place] [address] 03/11/2024 1:30 PM CDT Oncology Visit [address] [place] [address] Dylan Guerin PA 909 [place], [place] [address] Yessica Mcleod PA-C [address] [place] [address] 85[address]35 04/08/2024 1:00 PM LABORER SHAFT SINKING Lab [address] [place] [address] Yessica Mcleod PA-C [address] [place] [address] 04/08/2024 1:30 PM LABORER SHAFT SINKING Oncology Visit [address] [place] [address] Dylan Guerin PA 909 [place] [address] 04/08/2024 1:30 PM LABORER SHAFT SINKING Infusion Therapy Visit [address] [place] [address] 05/02/2024 10:30 AM LABORER SHAFT SINKING Lab [address] [place] [address] Ky Torres MD [address] [place] [address] [address] 05/02/2024 11:20 AM LABORER SHAFT SINKING Appointment [facility] Center Imaging [address] [place] [address] Ky Torres MD [address] [place] [address] [facility] 480 [place] [address] 05/06/2024 9:30 AM LABORER SHAFT SINKING Lab [address] [place] [address] Ky Torres MD [address] [place] [address] [address] 05/06/2024 10:00 AM LABORER SHAFT SINKING Oncology Visit [address] [place] [address] Ky Torres MD [address] 420175 05/06/2024 10:30 AM LABORER SHAFT SINKING Infusion Therapy Visit [facility] [address] [place] [address] [place] [address] Ky Torres MD [address] [place] [address] documented as of this encounter Visit Diagnoses Not on filedocumented in this encounter Care Teams Director Fixed Income Relationship Specialty Start Date End Date System, Provider Not In PCP - General Clinic 08/13/23 12/21/23 No Ref-Primary, Physician PCP - General 12/22/23 12/27/23 Bhavin Gardner [address] [place] [address] PCP - General Family Medicine 12/28/23 Alvaro Clark MD [address] [place] [address] Assigned Surgical Provider 07/24/23 Sixto Whalen APRN CNP [address] [place] [address] Assigned Cancer Care Provider 10/22/23 12/21/23 Yessica Mcleod PA-C 9 [place] [address] Assigned Cancer Care Provider 12/22/23 01/21/24 Ky Torres MD [address] [place] [address] [place] 474305 Assigned Cancer Care Provider 01/22/24 documented as of this encounter
--- OUTSIDE RECORDS SUMMARY | 2024-02-05 11:53 | XMS_ITS | Encounter Summary ---
Author Organization [facility] Address [address] [place] [address] Care Team Providers Care Head Soft Sugar Operator Name Role Phone Alvaro Clark MD Unavailable System, Provider Not In Primary Care Provider Un available Sixto Whalen APRN INSIDE SALES CONSULTANT Unavailable [phone] Encounter Details Date Type Department Care Team [...] 02/11/2024 11:00 AM CDT Infusion Therapy Visit [place] [address] [place] [address] Ky Torres MD 420 [facility] 480 [place], [place] [address]505 03/11/2024 1:00 PM CDT Lab [facility] [address] [place] [address] Yessica Mcleod PA-C 909 [place], [place] 293215 03/11/2024 1:00 PM CDT Infusion Therapy Visit [address] [place] [address] 03/11/2024 1:30 PM CDT Oncology Visit [address] [place] [address] Dylan Guerin PA 909 [place], [place] 129155 Yessica Mcleod PA-C 9 [place], [place] 175635 04/08/2024 1:00 PM INDUSTRIAL MAINTENANCE TECHNICIAN Lab [address] [place] [address] Yessica Mcleod PA-C 9 [place], [place] 891315 04/08/2024 1:30 PM INDUSTRIAL MAINTENANCE TECHNICIAN Oncology Visit [address] [place] [address] Dylan Guerin PA 909 [place], [place] 211645 04/08/2024 1:30 PM INDUSTRIAL MAINTENANCE TECHNICIAN Infusion Therapy Visit [address] [place] [address] 05/02/2024 10:30 AM INDUSTRIAL MAINTENANCE TECHNICIAN Lab [address] [place] [address] Ky Torres MD [address] [facility] 480 [place] [address] 05/02/2024 11:20 AM INDUSTRIAL MAINTENANCE TECHNICIAN Appointment [facility] Imaging [address] [place] [address] Ky Torres MD [address] [facility] 480 [place] [address] 05/06/2024 9:30 AM INDUSTRIAL MAINTENANCE TECHNICIAN Lab [address] [place] [address] Ky Torres MD [address] [facility] 480 [place] [address] 05/06/2024 10:00 AM INDUSTRIAL MAINTENANCE TECHNICIAN Oncology Visit [address] [place] [address] Ky Torres MD [address] [facility] 480 [place] [address] 05/06/2024 10:30 AM INDUSTRIAL MAINTENANCE TECHNICIAN Infusion Therapy Visit [address] [place] [address] Ky Torres MD [address] [facility] 480 [place] [address] documented as of this encounter Visit Diagnoses Not on filedocumented in this encounter Care Teams Head Soft Sugar Operator Relationship Specialty Start Date End Date System, Provider Not In PCP - General Clinic 08/13/23 12/21/23 Alvaro Clark MD [address] [address] Assigned Surgical Provider 07/24/23 Sixto Whalen APRN CNP [address] [place] [address] Assigned Cancer Care Provider 10/22/23 12/21/23 documented as of this encounter
--- OUTSIDE RECORDS SUMMARY | 2024-02-05 11:53 | XMS_ITS | Encounter Summary ---
Author Organization [facility] Address [address] [place] [address] Care Team Providers Care Rug Repairer Name Role Phone Alvaro Clark MD Unavailable System, Provider Not In Primary Care Provider Un available Sixto Whalen APRN FLARE BREAKER Unavailable [phone] Encounter Details Date Type Department Care Team [...] 02/11/2024 11:00 AM CDT Infusion Therapy Visit [place] [address] [place] [address] [place] [address] Ky Torres MD 420 [facility] 480 [place], [place] [address] 03/11/2024 1:00 PM CDT Lab [facility] [address] [place] [address] Yessica Mcleod PA-C 909 [place], [place] 526975 03/11/2024 1:00 PM CDT Infusion Therapy Visit [address] 200 [place] [address] 03/11/2024 1:30 PM CDT Oncology Visit [address] [place] [address] 200 [place] [address] Dylan Guerin PA 909 [place], [place] [address] Yessica Mcleod PA-C 9 [place], [place] 5[address]45 04/08/2024 1:00 PM AUTOMOTIVE WELDER Lab [address] 200 [place] [address] Yessica Mcleod PA-C 9 [place] [address]455 04/08/2024 1:30 PM AUTOMOTIVE WELDER Oncology Visit [address] [place] [address] 200 [place] [address] Dylan Guerin PA 909 [place], [place] 475075 04/08/2024 1:30 PM AUTOMOTIVE WELDER Infusion Therapy Visit [address] 200 [place] [address] 05/02/2024 10:30 AM AUTOMOTIVE WELDER Lab [address] 200 [place] [address] Ky Torres MD [address] [facility] 480 [place] [address] 05/02/2024 11:20 AM AUTOMOTIVE WELDER Appointment [facility] Imaging [address] [place] [address] Ky Torres MD 420 [facility] 480 [place] [address] 05/06/2024 9:30 AM AUTOMOTIVE WELDER Lab [address] [place] [address] Ky Torres MD 420 [facility] 480 [place] [address] 05/06/2024 10:00 AM AUTOMOTIVE WELDER Oncology Visit [address] [place] [address] 200 [place] [address] Ky Torres MD [address] [facility] 480 [place] [address] 05/06/2024 10:30 AM AUTOMOTIVE WELDER Infusion Therapy Visit [address] 200 [place] [address] Ky Torres MD [address] [facility] 480 [place] [address] documented as of this encounter Visit Diagnoses Not on filedocumented in this encounter Care Teams Rug Repairer Relationship Specialty Start Date End Date System, Provider Not In PCP - General Clinic 08/13/23 12/21/23 Alvaro Clark MD [address] [address] Assigned Surgical Provider 07/24/23 Sixto Whalen APRN CNP [address] [place] [address] Assigned Cancer Care Provider 10/22/23 12/21/23 documented as of this encounter
--- OUTSIDE RECORDS SUMMARY | 2024-02-05 11:53 | XMS_ITS | Encounter Summary ---
Author Organization [facility] Address [address] [place] [address] Care Team Providers Care Gm/Svp Global Publisher Business Name Role Phone Alvaro Clark MD Unavailable System, Provider Not In Primary Care Provider Un available Sixto Whalen APRN VISUAL MERCHANDISING SPECIALIST Unavailable [phone] Reason for Referral * Consultation (Routine: Next available opening) - Closed Specialty Diagnoses / Procedures Referred By Contac t Referred To Contact Diagnoses 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 (H) Alvaro Clark MD 420 [facility] 394 [place] [address] Referral ID Status Reason Start Date Expiration Date Visits Re quested Visits Authorized [id number] Closed 11/20/2023 11/19/2024 1 1 Question Answer Patient Has a History of: Several comorbidities Scheduling Instructions: [facility] will call you to coordinate your care as prescribed by your provider. If you don't hear from a sales representative graphic art within 2 business days, please call . Comments Please be aware that coverage of these services is subject to the terms and limitations of your health insurance plan. Call member services at your health plan with any benefit or coverage questions. [facility] will call you to coordinate your care as prescribed by your provider. If you don't hear from a sales representative graphic art within 2 business days, please call . Encounter Details Date Type Department Care Team ([facility] st Contact Info) Description 11/20/2023 Orders Only [facility] [address] 4th [place] [address] Alvaro Clark MD [address] [place] [address] 394 [place], [place] [phone] Urothelial carcinoma of bladder with invasion of [...] Upcoming Encounters Date Type Department Care Team ([facility] st Contact Info) Description 02/11/2024 11:00 AM CDT Infusion Therapy Visit [place] [address] 200 [place] [address] Ky Torres MD 420 [facility] 480 [place], [place] [address]855 03/11/2024 1:00 PM CDT Lab [place] [address] 200 [place] [address] Yessica Mcleod, PA-C [address] [place] [address] 03/11/2024 1:00 PM CDT Infusion Therapy Visit [place] [address] [address] 200 [place] [address] 03/11/2024 1:30 PM CDT Oncology Visit [place] [address] [address] [place] [address] Dylan Guerin PA 909 [place] [address] Yessica Mcleod PA-C [address] [place] [address] 04/08/2024 1:00 PM MATERIAL CONTROL ASSOCIATE Lab [address] [place] [address] Yessica Mcleod PA-C [address] [place] [address] 04/08/2024 1:30 PM MATERIAL CONTROL ASSOCIATE Oncology Visit [address] 200 [place] [address] Dylan Guerin PA [address] [place] [address] 04/08/2024 1:30 PM MATERIAL CONTROL ASSOCIATE Infusion Therapy Visit [address] 200 [place] [address] 05/02/2024 10:30 AM MATERIAL CONTROL ASSOCIATE Lab [address] [place] [address] Ky Torres MD 420 [facility] 480 [place], [place] [address] 05/02/2024 11:20 AM MATERIAL CONTROL ASSOCIATE Appointment [facility] Imaging [address] [place] [address] Ky Torres MD 420 [facility] 480 [place] [address] 05/06/2024 9:30 AM MATERIAL CONTROL ASSOCIATE Lab [address] [place] [address] Ky Torres MD 420 [facility] 480 [place] [address] 05/06/2024 10:00 AM MATERIAL CONTROL ASSOCIATE Oncology Visit [address] [address] [place] [address] Ky Torres MD 420 [facility] 480 [place] [address] 05/06/2024 10:30 AM MATERIAL CONTROL ASSOCIATE Infusion Therapy Visit [address] 200 [place] [address] Ky Torres MD 420 [facility] 480 [place] [address] Scheduled Referrals Name Type Priority Associated Diagnoses Orde r Schedule PAC Visit Referral (For [facility] Only) Referral Routine: Next available opening 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 (H) Expected: 11/20/2023 (Approximate), Expires: 11/19/2024 documented as of this encounter Visit Diagnoses Diagnosis 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 (H)- Primary documented in this encounter Care Teams Gm/Svp Global Publisher Business Relationship Specialty Start Date End Date System, Provider Not In PCP - General Clinic 08/13/23 12/21/23 Alvaro Clark MD 420 [facility] 394 [place] [address] Assigned Surgical Provider 07/24/23 Sixto Whalen APRN [facility] 9 [place] [address] Assigned Cancer Care Provider 10/22/23 12/21/23 documented as of this encounter
--- OUTSIDE RECORDS SUMMARY | 2024-02-05 11:53 | XMS_ITS | Encounter Summary ---
Author Organization [facility] Address [address] [place] [address] Care Team Providers Care Ring Cutter Lathe Operator Name Role Phone Alvaro Clark MD Unavailable System, Provider Not In Primary Care Provider Un available Sixto Whalen APRN EKG TECHNICIAN Unavailable [phone] Reason for Referral * Diagnostic Imaging CT Scan (Routine) - Closed Specialty Diagnoses / Procedures Referred By Contac t Referred To Contact Radiology. 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 [place] [phone] Referral ID Status Reason Start Date Expiration Date Visits Re quested Visits Authorized [id number] Closed 11/18/2023 11/17/2024 1 1 Reason for Visit * Diagnostic Imaging CT Scan (Routine) - Closed Specialty Diagnoses / Procedures Referred By Contac t Referred To Contact Radiology. 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 [place] [phone] Referral ID Status Reason Start Date Expiration Date Visits Re quested Visits Authorized [id number] Closed 11/18/2023 11/17/2024 1 1 Encounter Details Date Type Department Care Team (Late st Contact Info) Description 11/25/2023 10:58 AM CDT - 11/25/2023 11:59 PM CDT Hospital Encounter [facility] [address] [place] [address] Ky Torres MD 420 [facility] 480 [place] [address] Non-Fv Credentialed Provider, Radiology Malignant [...] 02/11/2024 11:00 AM CDT Infusion Therapy Visit [address] 200 [place] [address] Ky Torres MD [address] 83[address] 03/11/2024 1:00 PM CDT Lab [place] [address] 200 [place] [address] Yessica Mcleod PA-C 900 [place], [place] [address]67[address] 03/11/2024 1:00 PM CDT Infusion Therapy Visit [place] [address] 200 [place] [address] 03/11/2024 1:30 PM CDT Oncology Visit [address] 200 [place] [address] Dylan Guerin PA 909 [place], [place] [phone] Yessica Mcleod PA-C 905 [place] [address] 04/08/2024 1:00 PM BEFORE AND AFTER SCHOOL DAYCARE WORKER Lab [address] [place] [address] Yessica Mcleod PA-C [address] [place] [address] 04/08/2024 1:30 PM BEFORE AND AFTER SCHOOL DAYCARE WORKER Oncology Visit [address] [place] [address] Dylan Guerin PA [address] [place] [address] 04/08/2024 1:30 PM BEFORE AND AFTER SCHOOL DAYCARE WORKER Infusion Therapy Visit [address] [place] [address] 05/02/2024 10:30 AM BEFORE AND AFTER SCHOOL DAYCARE WORKER Lab [address] [place] [address] Ky Torres MD [address] [address] 05/02/2024 11:20 AM BEFORE AND AFTER SCHOOL DAYCARE WORKER Appointment [facility] Imaging [address] [place] [address] Ky Torres MD 420 [facility] 480 [place] [address] 05/06/2024 9:30 AM BEFORE AND AFTER SCHOOL DAYCARE WORKER Lab [place] [address] [place] [address] Ky Torres MD 420 [facility] 480 [place] [address] 05/06/2024 10:00 AM BEFORE AND AFTER SCHOOL DAYCARE WORKER Oncology Visit [address] [place] [address] Ky Torres MD 420 [place] [facility] 480 [place] [address] 05/06/2024 10:30 AM BEFORE AND AFTER SCHOOL DAYCARE WORKER Infusion Therapy Visit [address] [place] [address] Ky Torres MD [address] [address] documented as of this encounter Procedures Procedure [...] mLs documented in this encounter Care Teams Ring Cutter Lathe Operator Relationship Specialty Start Date End Date System, Provider Not In PCP - General Clinic 08/13/23 12/21/23 Alvaro Clark MD 420 [facility] 394 [place], [place] 4560[address] Assigned Surgical Provider 07/24/23 Sixto Whalen APRN CNP [address] [place] [address] Assigned Cancer Care Provider 10/22/23 12/21/23 documented as of this encounter
--- OUTSIDE RECORDS SUMMARY | 2024-02-05 11:53 | XMS_ITS | Encounter Summary ---
Author Organization [facility] Address [address] [place] [address] Care Team Providers Care Airplane Mechanic Apprentice Name Role Phone Alvaro Clark MD Unavailable System, Provider Not In Primary Care Provider Un available Sixto Whalen APRN STATION SUPERVISOR Unavailable [phone] Reason for Visit * Reason Comments Oncology Clinic Visit Encounter Details Date Type Department Care Team ([facility] st Contact Info) Description 11/20/2023 11:00 AM CDT Office Visit [address] [place] 200 [facility] [place] [address] Alvaro Clark MD 420 [facility] 394 [place] [address] Urothelial cancer (H) (Primary Dx) [...] above Alvaro Clark MD Department of Urology [facility] documented in this encounter Nursing Notes * [...] not needed today. Pharmacy name entered into [facility]: [facility] Frailty Screening: Is the patient here for a new oncology consult visit in cancer care? 2. No Clinical concerns: f/u Lori Portillo CMA documented in this encounter Plan of Treatment Upcoming Encounters Date Type Department Care Team (Late st Contact Info) Description 02/11/2024 11:00 AM CDT Infusion Therapy Visit [address] [address] [place] [address] Ky Torres MD [address] 9[address] 03/11/2024 1:00 PM CDT Lab [place] [address] [place] [address] Yessica Mcleod PA-C [address] [place] [address]10[address] 03/11/2024 1:00 PM CDT Infusion Therapy Visit [place] [address] 200 [place] [address] 03/11/2024 1:30 PM CDT Oncology Visit [place] [address] [place] [address] Dylan Guerin PA 909 [place] [address] Yessica Mcleod PA-C [address] [place] [address] 04/08/2024 1:00 PM CLIENT MANAGER Lab [address] [place] [address] Yessica Mcleod PA-C [address] [place] [address] 04/08/2024 1:30 PM CLIENT MANAGER Oncology Visit [address] [place] [address] [place] [address] Dylan Guerin PA [address] [place] [address] 04/08/2024 1:30 PM CLIENT MANAGER Infusion Therapy Visit [address] [place] [address] [place] [address] 05/02/2024 10:30 AM CLIENT MANAGER Lab [address] [place] [address] [place] [address] Ky Torres MD 420 [facility] 480 [place], [place] [address] 05/02/2024 11:20 AM CLIENT MANAGER Appointment [facility] Imaging [address] [address] [place] [address] Ky Torres MD [address] [address] 05/06/2024 9:30 AM CLIENT MANAGER Lab [address] [place] [address] [place] [address] Ky Torres MD 420 [facility] 480 [place] [address] 05/06/2024 10:00 AM CLIENT MANAGER Oncology Visit [address] [place] [address] [place] [address] Ky Torres MD [address] [address] 05/06/2024 10:30 AM CLIENT MANAGER Infusion Therapy Visit [address] [place] [address] [place] [address] Ky Torres MD [address] [address] documented as of this encounter Visit Diagnoses Diagnosis Urothelial cancer (H)- Primary Malignant neoplasm of other specified sites of urinary organs documented in this encounter Care Teams Airplane Mechanic Apprentice Relationship Specialty Start Date End Date System, Provider Not In PCP - General Clinic 08/13/23 12/21/23 Alvaro Clark MD 420 [facility] 394 [place] [address] Assigned Surgical Provider 07/24/23 Sixto Whalen APRN CNP [address] [place] [address] Assigned Cancer Care Provider 10/22/23 12/21/23 documented as of this encounter
--- OUTSIDE RECORDS SUMMARY | 2024-02-05 11:53 | XMS_ITS | Encounter Summary ---
Author Organization [place] Address [address] [place] [address]. [place] [address] Care Team Providers Care Tank Tester Name Role Phone Alvaro Clark MD Unavailable System, Provider Not In Primary Care Provider Un available Sixto Whalen APRN FRONT DESK SPECIALIST Unavailable [phone] Encounter Details Date Type Department Care Team (Late st Contact Info) Description 11/25/2023 10:56 AM CDT - 11/25/2023 2:17 PM CDT Hospital Encounter [facility] [address] [place] [address] Non-Fv Credentialed Provider, Radiology Thuan Rodriguez MD 420 [facility] 292 [place], [place] [address] Discharge Disposition: Home or Self Care Social [...] 11:00 AM CDT Infusion Therapy Visit [facility] [address] [place] [address] Ky Torres MD 420 [facility] 480 [place] [address] 03/11/2024 1:[address] [facility] [address] [address] [place] [address] Yessica Mcleod, PA-C [address] [place] [address] 03/11/2024 1:00 PM CDT Infusion Therapy Visit [address] [place] [address] 03/11/2024 1:30 PM CDT Oncology Visit [address] [address] [place] [address] Dylan Guerin PA 909 [place], [place] [address] Yessica Mcleod PA-C [address] [place] [address] 04/08/2024 1:00 PM ENVIRONMENTAL PROTECTION OFFICER Lab [address] [place] [address] Yessica Mcleod, RONALD [address] [place] [address]80[address] 04/08/2024 1:30 PM ENVIRONMENTAL PROTECTION OFFICER Oncology Visit [place] [address] [place] [phone] Dylan Guerin PA 9 [place], [place] 94[address]75 04/08/2024 1:30 PM ENVIRONMENTAL PROTECTION OFFICER Infusion Therapy Visit [address] [place] [address] [place] [address] 05/02/2024 10:30 AM ENVIRONMENTAL PROTECTION OFFICER [facility] [address] [place] [address] [place] [address] Ky Torres MD 420 [facility] 480 [place] [address] 05/02/2024 11:20 AM ENVIRONMENTAL PROTECTION OFFICER Appointment [facility] Imaging [address] [place] [address] Ky Torres MD 420 [facility] 480 [place], [place] [address] 05/06/2024 9:30 AM ENVIRONMENTAL PROTECTION OFFICER Lab [address] [address] [place] [address] Ky Torres MD 420 [facility] 480 [place] [address] 05/06/2024 10:00 AM ENVIRONMENTAL PROTECTION OFFICER Oncology Visit [address] [place] [address] [place] [address] Ky Torres MD 420 [place] [facility] 480 [place] [address] 05/06/2024 10:30 AM ENVIRONMENTAL PROTECTION OFFICER Infusion Therapy Visit [address] [place] [address] [place] [address] Ky Torres MD 420 [facility] [address] [place] [address] documented as of this encounter Visit Diagnoses [...] lumen documented in this encounter Care Teams Tank Tester Relationship Specialty Start Date End Date System, Provider Not In PCP - General Clinic 08/13/23 12/21/23 Alvaro Clark MD [address] [place] [address] Assigned Surgical Provider 07/24/23 Sixto Whalen APRN CNP [address] [place] [address] Assigned Cancer Care Provider 10/22/23 12/21/23 documented as of this encounter
--- OUTSIDE RECORDS SUMMARY | 2024-02-05 11:53 | XMS_ITS | Encounter Summary ---
Author Organization [facility] Address [address] [place] [address] Care Team Providers Care Textile Machinery Sales Representative Name Role Phone Alvaro Clark MD Unavailable System, Provider Not In Primary Care Provider Un available Sixto Whalen APRN REHAB NURSE Unavailable [phone] Reason for Referral * Diagnostic Imaging CT Scan (Routine) - Closed Specialty Diagnoses / Procedures Referred By Contac t Referred To Contact Radiology. 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 [address] Referral ID Status Reason Start Date Expiration Date Visits Re quested Visits Authorized [id number] Closed 11/18/2023 11/17/2024 1 1 Encounter Details Date Type Department Care Team (Late st Contact Info) Description 11/18/[address] [facility] - Cancer Care Service Line [facility] [place] [address] Ky Torres MD [address] [place] [address] Malignant neoplasm of trigone of urinary [...] 11:00 AM CDT Infusion Therapy Visit [address] [place] [address] Ky Torres MD 420 [facility] 480 [place], [place] [address] 03/11/2024 1:00 PM CDT Lab [address] [place] [address] Yessica Mcleod PA-C [address] [place] [address] 03/11/2024 1:00 PM CDT Infusion Therapy Visit [place] [address] [place] [address] 03/11/2024 1:30 PM CDT Oncology Visit [address] [place] [address] Dylan Guerin PA [address] [place] [phone] Yessica Mcleod PA-C [address] [place] [address] 04/08/2024 1:00 PM COAL SAMPLE TESTER Lab [address] [place] [address] Yessica Mcleod PA-C [address] [place] [address] 04/08/2024 1:30 PM COAL SAMPLE TESTER Oncology Visit [address] [address] [place] [address] Dylan Guerin PA 909 [place] [address] 04/08/2024 1:30 PM COAL SAMPLE TESTER Infusion Therapy Visit [address] [place] [address] 05/02/2024 10:30 AM COAL SAMPLE TESTER Lab [address] [address] [place] [address] Ky Torres MD 420 [facility] 480 [place] [address] 05/02/2024 11:20 AM COAL SAMPLE TESTER Appointment [facility] Imaging [address] [place] [address] Ky Torres MD 420 [facility] 480 [place] [address] 05/06/2024 9:30 AM COAL SAMPLE TESTER Lab [address] [place] [address] Ky Torres MD 420 [facility] 480 [place] [address] 05/06/2024 10:00 AM COAL SAMPLE TESTER Oncology Visit [address] [facility] [place] [address] Ky Torres MD [address] [address] 05/06/2024 10:30 AM COAL SAMPLE TESTER Infusion Therapy Visit [facility] [address] [place] [address] Ky Torres MD [address] [place] [address] documented as of this encounter Results * [...] previous. 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
--- OUTSIDE RECORDS SUMMARY | 2024-02-05 11:53 | XMS_ITS | Encounter Summary ---
Author Organization [facility] Address [address] [place] [address] Care Team Providers Care Transportation Analyst Name Role Phone Alvaro Clark MD Unavailable System, Provider Not In Primary Care Provider Un available Sixto Whalen APRN RESEARCH WORKER [employer]NCY[employer] Unavailable [phone] Encounter Details Date Type Department Care Team [...] 02/11/2024 11:00 AM CDT Infusion Therapy Visit [place] [address] [place] [address] [place] [address] Ky Torres MD 420 [facility] 480 [place], [place] [address] 03/11/2024 1:00 PM CDT Lab [facility] [address] [place] [address] Yessica Mcleod PA-C 909 [place], [place] [address]255 03/11/2024 1:00 PM CDT Infusion Therapy Visit [address] [place] 200 [place] [address] 03/11/2024 1:30 PM CDT Oncology Visit [address] [place] [address] [place] [address] Dylan Guerin PA 909 [place], [place] [address] Yessica Mcleod PA-C 9 [place], [place] [address] 04/08/2024 1:00 PM GENERAL INSPECTOR Lab [address] [place] [address] [place] [address] Yessica Mcleod PA-C 9 [place], [place] [address]15 04/08/2024 1:30 PM GENERAL INSPECTOR Oncology Visit [address] [place] [address] [place] [address] Dylan Guerin PA 909 [place], [place] 6969[address] 04/08/2024 1:30 PM GENERAL INSPECTOR Infusion Therapy Visit [address] [place] [address] [place] [address] 05/02/2024 10:30 AM GENERAL INSPECTOR Lab [address] [place] 200 [place] [address] Ky Torres MD [address] [place] [facility] 480 [place] [address] 05/02/2024 11:20 AM GENERAL INSPECTOR Appointment [facility] [address] [place] [address] Ky Torres MD [address] [place] [facility] 480 [place] [address] 05/06/2024 9:30 AM GENERAL INSPECTOR Lab [address] [place] [address] [place] [address] Ky Torres MD [address] [place] [facility] 480 [place] [address] 05/06/2024 10:00 AM GENERAL INSPECTOR Oncology Visit [address] [place] [address] [place] [address] Ky Torres MD [address] [place] [facility] 480 [place] [address] 05/06/2024 10:30 AM GENERAL INSPECTOR Infusion Therapy Visit [address] [place] [address] [place] [address] Ky Torres MD [address] [place] [facility] [address] [place] [address] documented as of this encounter Visit Diagnoses Not on filedocumented in this encounter Care Teams Transportation Analyst Relationship Specialty Start Date End Date System, Provider Not In PCP - General Clinic 08/13/23 12/21/23 Alvaro Clark MD [address] [address] Assigned Surgical Provider 07/24/23 Sixto Whalen APRN CNP [address] [place] [address] Assigned Cancer Care Provider 10/22/23 12/21/23 documented as of this encounter
--- OUTSIDE RECORDS SUMMARY | 2024-02-05 11:53 | XMS_ITS | Encounter Summary ---
Author Organization [facility] Address [address] [place] [address] Care Team Providers Care Dough Mixer Name Role Phone Alvaro Clark MD Unavailable System, Provider Not In Primary Care Provider Un available Sixto Whalen APRN CONSULTANT Unavailable Reason for Visit * Reason Comments Chemotherapy [...] 10MG Ky Torres MD [address] [place] [address] [facility] 480 [place] [address] Rh Cancer Infus [facility] [place] [address] [place] [address] Referral ID Status Reason Start Date Expiration Date Visits Re quested Visits Authorized [id number] Closed 09/06/2023 03/26/2024 100 1 Encounter Details Date Type Department Care Team (Late st Contact Info) Description 11/10/2023 8:30 AM CDT Infusion Therapy Visit [facility] [address] [place] [address] Ky Torres MD 420 [facility] 480 [place], [place] [address] Urothelial cancer (H) (Primary Dx) Social History [...] removal, you must report this information. Call [phone] during business hours. Refer to the written information given to you for additional questions. documented in this encounter Progress Notes * Celena Devlin RN - 11/10/2023 8:30 AM CDT Infusion Nursing Note: Oleg Richard presents today for MVAC (cycle 4 day 1). Patient seen by provider today: Yes: STACEY Zuluaga Plumbing Service Technician present during visit today: Not Applicable. Note: pt verified that he will lease picker his dex. Intravenous Access: Implanted Port. [...] used: Yes ONPRO injector device Lot number: [id number] Patient education included: what patient can expect [...] 02/11/2024 11:00 AM CDT Infusion Therapy Visit [facility] [address] [place] [address] [address] [place] [address] Ky Torres MD 420 [facility] 480 [place] [address] 03/11/2024 1:00 PM CDT Lab [address] [place] [address] [place] [phone] Yessica Mcleod PA-C [address] [place] [address] 03/11/2024 1:00 PM CDT Infusion Therapy Visit [address] [place] [address] [place] [address] 03/11/2024 1:30 PM CDT Oncology Visit [address] [place] 200 [place] [address] Dylan Guerin PA [address] [place] [address] Yessica Mcleod PA-C [address] [place] [address] 04/08/2024 1:00 PM MOTOR REBUILDER Lab [address] [place] [address] [place] [address] Yessica Mcleod PA-C [address] [place] [address] 04/08/2024 1:30 PM MOTOR REBUILDER Oncology Visit [address] [place] 200 [place] [address] Dylan Guerin PA 909 [place], [place] 47[address] 04/08/2024 1:30 PM MOTOR REBUILDER Infusion Therapy Visit [address] [place] [address] [place] [address] 05/02/2024 10:30 AM MOTOR REBUILDER Lab [address] [place] [address] [place] [address] Ky Torres MD [address] [place] [address] [facility] 480 [place] [address] 05/02/2024 11:20 AM MOTOR REBUILDER Appointment [facility] [address] [place] [address] Ky Torres MD [address] [place] [address] [facility] 480 [place] [address] 05/06/2024 9:30 AM MOTOR REBUILDER Lab [address] [place] [address] [place] [address] Ky Torres MD [address] [place] [address] [facility] 480 [place] [address] 05/06/2024 10:00 AM MOTOR REBUILDER Oncology Visit [address] [place] 200 [place] [address] Ky Torres MD [address] [place] [address] [facility] 480 [place] [address] 05/06/2024 10:30 AM MOTOR REBUILDER Infusion Therapy Visit [place] [address] [place] [address] [place] [address] Ky Torres MD 420 [facility] 480 [place] [address] documented as of this encounter Visit Diagnoses [...] cabazitaxel) on the same day, administer this kaw agent after the taxane. $New Bag 11/10/2023 [...] On Thu11/10/23 at 0930, For 1 dose, [place] hang. For Intravenous Use Only. Fatal If Given By Other Routes. Vesicant. May require hepatic and/or renal dose or frequency adjustments. See reference link for guidelines. $New Bag 11/10/2023 10:02 AM CDT 6.2 mg documented in this encounter Care Teams Dough Mixer Relationship Specialty Start Date End Date System, Provider Not In PCP - General Clinic 08/13/23 12/21/23 Alvaro Clark MD [address] [place] [address] Assigned Surgical Provider 07/24/23 Sixto Whalen APRN CONSULTANT 9 [place] [address] Assigned Cancer Care Provider 10/22/23 12/21/23 documented as of this encounter
--- OUTSIDE RECORDS SUMMARY | 2024-02-05 11:53 | XMS_ITS | Encounter Summary ---
Author Organization [facility] Address [address] [place] [address]. [place] [address] Care Team Providers Care State Federal Relations Deputy Director Name Role Phone Alvaro Clark MD Unavailable System, Provider Not In Primary Care Provider Un available Sixto Whalen APRN FINANCIAL DEALERS Unavailable [phone] Encounter Details Date Type Department Care Team (Late st Contact Info) Description 12/01/2023 Orders Only [address] [place] 200 [facility] [place] [address] Dylan Guerin PA 9 [place] [address] Urothelial cancer (H) (Primary Dx) [...] 02/11/2024 11:00 AM CDT Infusion Therapy Visit [facility] [address] [place] [address] [place] [address] Ky Torres MD 420 [facility] 480 [place] [address] 03/11/2024 1:00 PM CDT Lab [address] [place] [address] [place] [address] Yessica Mcleod PA-C [address] [place] [address] 03/11/2024 1:00 PM CDT Infusion Therapy Visit [address] [place] [address] [place] [address] 03/11/2024 1:30 PM CDT Oncology Visit [address] [place] 200 [place] [address] Dylan Guerin PA [address] [place] [address]255 Yessica Mcleod PA-C [address] [place] [address] 335635 04/08/2024 1:00 PM AUDIT PARTNER Lab [address] [place] [address] [place] [address] Yessica Mcleod PA-C [address] [place] [id number] 04/08/2024 1:30 PM AUDIT PARTNER Oncology Visit [address] [place] [address] [place] [address] Dylan Guerin PA [address] [place] [address] 04/08/2024 1:30 PM AUDIT PARTNER Infusion Therapy Visit [address] [place] [address] [place] [address] 05/02/2024 10:30 AM AUDIT PARTNER Lab [address] [place] [address] [place] [address] Ky Torres MD [address] [place] [facility] 480 [place] [address] 05/02/2024 11:20 AM AUDIT PARTNER Appointment [facility] [address] [place] [address] Ky Torres MD [address] [place] [facility] 480 [place] [address] 05/06/2024 9:30 AM AUDIT PARTNER Lab [address] [place] [address] [place] [address] Ky Torres MD [address] [place] [facility] 480 [place] [address] 05/06/2024 10:00 AM AUDIT PARTNER Oncology Visit [address] [place] [address] [place] [address] Ky Torres MD [address] [place] [facility] 480 [place] [address] 05/06/2024 10:30 AM AUDIT PARTNER Infusion Therapy Visit [facility] [address] [place] [address] [place] [address] Ky Torres MD [address] [place] [address] 480 [place] [address] Scheduled Orders Name Type Priority Associated Diagnoses [...] organs documented in this encounter Care Teams State Federal Relations Deputy Director Relationship Specialty Start Date End Date System, Provider Not In PCP - General Clinic 08/13/23 12/21/23 Alvaro Clark MD [address] [place] [address] 394 [place] [address] Assigned Surgical Provider 07/24/23 Sixto Whalen APRN FINANCIAL DEALERS [address] [place] [address] Assigned Cancer Care Provider 10/22/23 12/21/23 documented as of this encounter
--- OUTSIDE RECORDS SUMMARY | 2024-02-05 11:53 | XMS_ITS | Encounter Summary ---
Author Organization [facility] Address [address] [place] [address] Care Team Providers Care Photo Retoucher Name Role Phone Alvaro Clark MD Unavailable System, Provider Not In Primary Care Provider Un available Sixto Whalen APRN CHEMICAL RADIATION TECHNICIAN Unavailable [phone] Reason for Referral * Diagnostic Imaging Ultrasound (Routine) - Pending Review Specialty Diagnoses / Procedures Referred By Contac t Referred To Contact Radiology. Diagnoses Left leg swelling Procedures US Lower Extremity Venous Duplex Left Yessica Mcleod PA-C 90 [place] [address] Fax: [phone] Referral ID Status Reason Start Date Expiration Date V isits Requested Visits Authorized [id number] Pending Review 11/10/2023 11/09/2024 1 1 Reason for Visit * Diagnostic Imaging Ultrasound (Routine) - Pending Review Specialty Diagnoses / Procedures Referred By Contac t Referred To Contact Radiology. Diagnoses Left leg swelling Procedures US Lower Extremity Venous Duplex Left Yessica Mcleod PA-C [address] [place] [address] Fax: [phone] Referral ID Status Reason Start Date Expiration Date V isits Requested Visits Authorized [id number] Pending Review 11/10/2023 11/09/2024 1 1 Encounter Details Date Type Department Care Team (Latest Contact Info) Description 11/10/2023 1:48 PM CDT - 11/10/2023 11:59 PM CDT Hospital Encounter [facility] [address] [facility] [address] [place] [address] Yessica Mcleod PA-C [address] [place] [address] Left leg swelling Discharge Disposition: Home or [...] 02/11/2024 11:00 AM CDT Infusion Therapy Visit [address] [place] [address] [place] [address] Ky Torres MD 420 [facility] 480 [place], [place] [address] 03/11/2024 1:00 PM CDT Lab [address] [place] [address] [place] [address] Yessica Mcleod PA-C 905 [place], [place] 0540[address] 03/11/2024 1:00 PM CDT Infusion Therapy Visit [address] [place] [address] [place] [address] 03/11/2024 1:30 PM CDT Oncology Visit [address] [place] [address] [place] [address] Dylan Guerin PA 909 [place], [place] [address] Yessica Mcleod PA-C 904 [place], [place] 267265 04/08/2024 1:00 PM STATISTICAL SECRETARY Lab [address] [place] [address] [place] [address] Yessica Mcleod PA-C 7[address] [place], [place] [phone] 04/08/2024 1:30 PM STATISTICAL SECRETARY Oncology Visit [address] [place] [address] [place] [address] Dylan Guerin PA 909 [place] [address] 04/08/2024 1:30 PM STATISTICAL SECRETARY Infusion Therapy Visit [address] [place] [address] [place] [address] 05/02/2024 10:30 AM STATISTICAL SECRETARY Lab [address] [place] [address] [place] [address] Ky Torres MD [address] [address] 05/02/2024 11:20 AM STATISTICAL SECRETARY Appointment [facility] [address] [place] [address] Ky Torres MD [address] [place] [address] [address] 05/06/2024 9:30 AM STATISTICAL SECRETARY Lab [address] [place] [address] [place] [address] Ky Torres MD [address] [place] [address] [address] 05/06/2024 10:00 AM STATISTICAL SECRETARY Oncology Visit [address] [place] [address] [place] [address] Ky Torres MD [address] [place] [facility] 480 [place] [address] 05/06/2024 10:30 AM STATISTICAL SECRETARY Infusion Therapy Visit [facility] [address] [place] [address] [place] [address] Ky Torres MD [address] [place] [address] [facility] 480 [place] [address] documented as of this encounter Procedures Procedure [...] swelling documented in this encounter Care Teams Photo Retoucher Relationship Specialty Start Date End Date System, Provider Not In PCP - General Clinic 08/13/23 12/21/23 Alvaro Clark MD 420 [facility] [address] [place], [place] [address] Assigned Surgical Provider 07/24/23 Sixto Whalen APRN CNP 909 [place], [place] 77[address] Assigned Cancer Care Provider 10/22/23 12/21/23 documented as of this encounter
--- OUTSIDE RECORDS SUMMARY | 2024-02-05 11:53 | XMS_ITS | Encounter Summary ---
Author Organization [facility] Address [address] [place] [address] Care Team Providers Care Agricultural Pilot Name Role Phone Alvaro Clark MD Unavailable System, Provider Not In Primary Care Provider Un available Sxito Whalen APRN [employer] [place] Unavailable [phone] Reason for Visit * Reason Onset Date Comments Schedule Surgery 11/26/2023 Encounter Details Date Type Department Care Team (Late st Contact Info) Description 11/26/2023 Telephone [facility] [address] 4th [place] [address] Alvaro Clark MD [address] [facility] [address] [place] [address] Schedule Surgery Social History Tobacco [...] Boswell RN - 12/18/2023 9:57 AM CDT Architectural Intern called patient this morning to complete Pre-Op Teaching for surgery scheduled with Dr. Clark on 12/22/2023. Architectural Intern discussed that he did not receive surgical packet in mail (per note from Jennifer Griggs on 11/26/23-mailed per [employer]PS on 11/26/23). Architectural Intern discussed that Pre-Op Teaching was completed on 12/11/23. -Pre Op exam completed on 12/11/23 with Rizwana Tejeda APRN CNP. -Preparing for Surgery Instructions reviewed with patient per Marysol Hunter RN (Patient Instruction Note). Patient confirms he received copy of these instructions. Architectural Intern reviewed Preparing for Surgery Instructions with Patient: [...] visit is not scheduled at this time. Architectural Intern will send message to scheduling department to schedule post op visit. Patient will talk with Dr. Clark morning of surgery regarding questions regarding plan for voidingafter surgery (Neobladder or Ileal Conduit). Architectural Intern instructed patient to contact our office if any further questions or concerns prior to scheduled surgery on 12/22/2023. Evette Boswell RN, BSN, OCN on 12/18/2023 at 10:13 AM * Telephone Encounter - Indu Jennifer - 11/26/2023 11:21 AM CDT Called patient to discuss surgery scheduling with Dr. Clark. Spoke with patient and scheduled surgery with Dr. Clark for 12/22/23 at [place]. H&P scheduled with PAC scheduled for 12/08/23 at 9:00 AM. Patient is aware they will get their arrival time for surgery at PAC appointment. Per provider, 10 or 21 days postop for postop visit, stent removal and/or cath removal based on thetype of diversion patient still undecided. Architectural Intern will mail surgery packet via [employer]PS on 11/26/23. The patient has no further questions regarding surgery at this time. Patient has writers call back number [phone]. Jennifer Griggs on 11/26/2023 at 11:22 AM documented in this encounter Plan of Treatment Upcoming Encounters Date Type Department Care Team (Late st Contact Info) Description 02/11/2024 11:00 AM CDT Infusion Therapy Visit [place] [address] [place] [address] [place] [address] Ky Torres MD [address] [address] 03/11/2024 1:00 PM CDT Lab [place] [address] [place] [place] [address] Yessica Mcleod, PAJose Luis [address] [place] [address] 03/11/2024 1:00 PM CDT Infusion Therapy Visit [place] [address] [place] [address] 03/11/2024 1:30 PM CDT Oncology Visit [place] [address] [place] [address] Dylan Guerin PA 909 [place] [address] Yessica Mcleod PA-C 909 [place] [address] 04/08/2024 1:00 PM GRAVITY PROSPECTOR Lab [address] [place] [address] [place] [address] Yessica Mcleod PA-C 909 [place], [place] 47[address] 04/08/2024 1:30 PM GRAVITY PROSPECTOR Oncology Visit [address] [place] [address] [place] [address] Dylan Guerin PA [address] [place] [address] 04/08/2024 1:30 PM GRAVITY PROSPECTOR Infusion Therapy Visit [address] [place] [address] [place] [address] 05/02/2024 10:30 AM GRAVITY PROSPECTOR Lab [address] [place] [address] [place] [address] Ky Torres MD [address] [address] 05/02/2024 11:20 AM GRAVITY PROSPECTOR Appointment [facility] Imaging [address] [place] [address] Ky Torres MD 420 [facility] 480 [place] [address] 05/06/2024 9:30 AM GRAVITY PROSPECTOR Lab [address] [place] [address] [place] [address] Ky Torres MD 420 [facility] 480 [place] [address] 05/06/2024 10:00 AM GRAVITY PROSPECTOR Oncology Visit [address] [place] [address] [place] [address] Ky Torres MD [address] [address] 05/06/2024 10:30 AM GRAVITY PROSPECTOR Infusion Therapy Visit [address] [place] [address] [place] [address] Ky Torres MD 420 [facility] 480 [place] [address] documented as of this encounter Visit Diagnoses Not on filedocumented in this encounter Care Teams Agricultural Pilot Relationship Specialty Start Date End Date System, Provider Not In PCP - General Clinic 08/13/23 12/21/23 Alvaro Clark MD 420 [facility] 394 [place] [address] Assigned Surgical Provider 07/24/23 Sixto Whalen APRN CNP [address] [place] [address] Assigned Cancer Care Provider 10/22/23 12/21/23 documented as of this encounter
--- OUTSIDE RECORDS SUMMARY | 2024-02-05 11:53 | XMS_ITS | Encounter Summary ---
Author Organization [place] Address [address] [place] [address] Care Team Providers Care Four Corner Stayer Machine Operator Name Role Phone Alvaro Clark MD Unavailable System, Provider Not In Primary Care Provider Un available Sixto Whalen APRN SECURITY PROFESSIONAL Unavailable [phone] Reason for Referral * Diagnostic Imaging CT Scan (Routine) - Closed Specialty Diagnoses / Procedures Referred By Contac t Referred To Contact Radiology. 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) Procedures CT Chest/Abdomen/Pelvis w Contrast Yessica Mcleod PA-C [address] [place] [phone] Scan [address] [place] [address] Referral ID Status Reason Start Date Expiration Date Visits Re quested Visits Authorized [id number] Closed 11/27/2023 11/26/2024 1 1 Reason for Visit * Reason Comments Oncology Clinic Visit Encounter Details Date Type Department Care Team (Latest Contact Info) Description 11/27/2023 2:30 PM CDT Oncology Visit [address] [facility] [place] [phone] Yessica Mcleod PA-C [address] [place] [address] Urothelial cancer (H) (Primary Dx); Malignant neoplasm [...] initially had urinary retention wasseen in the [employer] [facility] ED in May 2023. He saw urology [...] bleeding. PMHx and Social Hx reviewed per [facility]. Medications: Current Outpatient Medications Medication Sig Dispense [...] US negative for DVT. Chart documentation with [employer] Voice recognition Software. Although reviewed after completion, [...] Rooming Note November 27, 2023 2:25 PM Oelg Richard is a 63 year old male [...] not needed today. Pharmacy name entered into [facility]: [place], [place] - [address] [place] [address] Frailty Screening: Is the patient here for a new oncology consult visit in cancer care? 2. No Clinical concerns: f/u Lori Portillo CMA documented in this encounter Plan of Treatment Upcoming Encounters Date Type Department Care Team (Late st Contact Info) Description 02/11/2024 11:00 AM CDT Infusion Therapy Visit [place] [address] [place] [address] Ky Torres MD [address] [place] [address] 03/11/2024 1:00 PM CDT Lab [facility] [address] [place] [address] Yessica Mcleod PA-C [address] [place] [address] 649925 03/11/2024 1:00 PM CDT Infusion Therapy Visit [address] [place] [address] 03/11/2024 1:30 PM CDT Oncology Visit [address] [place] [address] Dylan Guerin PA [address] [place] [place] [address] 672155 Yessica Mcleod PA-C [address] [place] [address] 057665 04/08/2024 1:00 PM TRUST VAULT CLERK Lab [address] [place] [address] Yessica Mcleod PA-C [address] [place] [address] 346735 04/08/2024 1:30 PM TRUST VAULT CLERK Oncology Visit [address] [place] [address] Dylan Guerin PA [address] [place] [place] [address] 870155 04/08/2024 1:30 PM TRUST VAULT CLERK Infusion Therapy Visit [facility] [address] [place] [address] [address] [place] [address] 05/02/2024 10:30 AM TRUST VAULT CLERK Lab [address] [place] [address] Ky Torres MD [address] [facility] [address] [place], [place] 4[address] 05/02/2024 11:20 AM TRUST VAULT CLERK Appointment [facility] Imaging [address] [place] [address] Ky Torres MD [address] [facility] [address] [place], [place] 9723[address] 05/06/2024 9:30 AM TRUST VAULT CLERK Lab [address] [place] [address] Ky Torres MD [address] [facility] [address] [place], [place] 1315[address] 05/06/2024 10:00 AM TRUST VAULT CLERK Oncology Visit [address] [place] [address] Ky Torres MD [address] [facility] [address] [place] [address] 05/06/2024 10:30 AM TRUST VAULT CLERK Infusion Therapy Visit [address] [place] [address] Ky Torres MD [address] [facility] [address] [place], [place] 946[address] documented as of this encounter Results * [...] bladder documented in this encounter Care Teams Four Corner Stayer Machine Operator Relationship Specialty Start Date End Date System, Provider Not In PCP - General Clinic 08/13/23 12/21/23 Alvaro Clark MD [address] [place] [address]697 Assigned Surgical Provider 07/24/23 Sixto Whalen APRN SECURITY PROFESSIONAL [address] [place] [address]140 Assigned Cancer Care Provider 10/22/23 12/21/23 documented as of this encounter
--- OUTSIDE RECORDS SUMMARY | 2024-02-05 11:54 | XMS_ITS | Encounter Summary ---
Author Organization [place] Address [address] [place] [address] Care Team Providers Care Porcelain Technician Name Role Phone Alvaro Clark MD Unavailable System, Provider Not In Primary Care Provider Un available Ky Torres MD Unavailable [phone] Sixto Whalen APRN WINDOW GLASS INSTALLER Unavailable [phone] No Ref-Primary, Physician Primary Care Provider Yessica Mcleod PA-C Unavailable Bhavin Gardner Primary Care Provider [phone] Ky Torres MD Unavailable [phone] Encounter Details Date Type Department Care Team (Late st Contact Info) Description 09/28/2023 [facility] Medical Advice [facility] [place] [address] [place] [address] [address] [facility] [place] [address] Charlie Almonte, RN Urothelial cancer (H) (Primary Dx) Social History [...] 02/11/2024 11:00 AM CDT Infusion Therapy Visit [address] [place] [address] Ky Torres MD 420 [facility] 480 [place], [place] [address] 03/11/2024 1:00 PM CDT Lab [address] [place] [address] Yessica Mcleod PA-C [address] [place] [address] [phone] 03/11/2024 1:00 PM CDT Infusion Therapy Visit [address] [place] [address] 03/11/2024 1:30 PM CDT Oncology Visit [address] [place] [address] Dylan Guerin PA [address] [place] [address] [phone] Yessica Mcleod PA-C [address] [place] [address] 421305 04/08/2024 1:00 PM AGRICULTURAL EDUCATION INSTRUCTOR Lab [address] [place] [address] Yessica Mcleod PAJannetC [address] [place] [address] 04/08/2024 1:30 PM AGRICULTURAL EDUCATION INSTRUCTOR Oncology Visit [address] [place] [address] Dylan Guerin PA [address]09 [place] [address] 04/08/2024 1:30 PM AGRICULTURAL EDUCATION INSTRUCTOR Infusion Therapy Visit [address] [place] [address] 05/02/2024 10:30 AM AGRICULTURAL EDUCATION INSTRUCTOR Lab [address] [place] [address] Ky Torres MD [address] [address] 05/02/2024 11:20 AM AGRICULTURAL EDUCATION INSTRUCTOR Appointment [facility] Imaging [address] [place] [address] Ky Torres MD [address] [address] 05/06/2024 9:30 AM AGRICULTURAL EDUCATION INSTRUCTOR Lab [address] [place] [address] Ky Torres MD [address] [address] 05/06/2024 10:00 AM AGRICULTURAL EDUCATION INSTRUCTOR Oncology Visit [address] [place] [address] Ky Torres MD 420 [facility] 480 [place], [place] 4[address] 05/06/2024 10:30 AM AGRICULTURAL EDUCATION INSTRUCTOR Infusion Therapy Visit [facility] [address] [place] [address] Ky Torres MD [address] [address] documented as of this encounter Visit Diagnoses Diagnosis Urothelial cancer (H)- Primary Malignant neoplasm of other specified sites of urinary organs documented in this encounter Care Teams Porcelain Technician Relationship Specialty Start Date End Date System, Provider Not In PCP - General Clinic 08/13/23 12/21/23 No Ref-Primary, Physician PCP - General 12/22/23 12/27/23 Bhavin Gardner 1400 [place] [address] PCP - General Family Medicine 12/28/23 Alvaro Clark MD [address] [place] [address] 394 [place], [place] 581305 Assigned Surgical Provider 07/24/23 Ky Torres MD 420 [facility] 480 [place] [address] Assigned Cancer Care Provider 09/22/23 10/21/23 Sixto Whalen APRN CNP [address] [place] [address] Assigned Cancer Care Provider 10/22/23 12/21/23 Yessica Mcleod, PAJannetC 909 [place] [address] Assigned Cancer Care Provider 12/22/23 01/21/24 Ky Torres MD [address] [place] [address] 480 [place], [place] 112935 Assigned Cancer Care Provider 01/22/24 documented as of this encounter
--- OUTSIDE RECORDS SUMMARY | 2024-02-05 11:54 | XMS_ITS | Encounter Summary ---
Author Organization [place] Address [address] [place] [address]. [place] [address] Care Team Providers Care Legal Writing Professor Name Role Phone Alvaro Clark MD Unavailable System, Provider Not In Primary Care Provider Un available Ky Torres MD Unavailable [phone] Sixto Whalen APRN DIRECTOR OF PAYROLL Unavailable [phone] No Ref-Primary, Physician Primary Care Provider Yessica Mcleod PA-C Unavailable Bhavin Gardner Primary Care Provider [phone] Ky Torres MD Unavailable [phone] Encounter Details Date Type Department Care Team (Late st Contact Info) Description 09/02/2023 MyC Medical Advice M [facility] [place] [address], [address] [place] [address] Ky Torres MD 420 [facility] 480 [place] [address] Social History Tobacco Use Types [...] 11:00 AM CDT Infusion Therapy Visit [address] [place] [address] Ky Torres MD [address] [place] [address] 423235 03/11/2024 1:00 PM CDT Lab [address] [place] [address] Yessica Mcleod, PAJose Luis [address] [place] [address] 571375 03/11/2024 1:00 PM CDT Infusion Therapy Visit [place] [address] [place] [address] 03/11/2024 1:30 PM CDT Oncology Visit [address] [place] [address] Dylan Guerin PA [address]09 [place], [place] 195575 Yessica Mcleod, PAJose Luis [address] [place] [address] 259555 04/08/2024 1:00 PM SOFTWARE TOOLS BUILD ENGINEER Lab [address] [place] [address] Yessica Mcleod PA-C 909 [place] [address] 04/08/2024 1:30 PM SOFTWARE TOOLS BUILD ENGINEER Oncology Visit [address] [place] [address] Dylan Guerin PA 909 [place] [address] 04/08/2024 1:30 PM SOFTWARE TOOLS BUILD ENGINEER Infusion Therapy Visit [address] [place] [address] 05/02/2024 10:30 AM SOFTWARE TOOLS BUILD ENGINEER Lab [address] [place] [address] Ky Torres MD 420 [facility] 480 [place] [address] 05/02/2024 11:20 AM SOFTWARE TOOLS BUILD ENGINEER Appointment [facility] Imaging [address] [facility] [address] [place] [address] Ky Torres MD 420 [facility] 480 [place] [address] 05/06/2024 9:30 AM SOFTWARE TOOLS BUILD ENGINEER Lab [address] [place] [address] Ky Torres MD [address] [address] 05/06/2024 10:00 AM SOFTWARE TOOLS BUILD ENGINEER Oncology Visit [facility] [address] [place] [address] 200 [facility] [place] [address] Ky Torres MD 420 [facility] 480 [place] [address] 05/06/2024 10:30 AM SOFTWARE TOOLS BUILD ENGINEER Infusion Therapy Visit [facility] [address] [place] [address] [place] [address] Ky Torres MD [address] 319815 documented as of this encounter Visit Diagnoses Not on filedocumented in this encounter Care Teams Legal Writing Professor Relationship Specialty Start Date End Date System, Provider Not In PCP - General Clinic 08/13/23 12/21/23 No Ref-Primary, Physician PCP - General 12/22/23 12/27/23 Bhavin Gardner 1400 [place] [address] PCP - General Family Medicine 12/28/23 Alvaro Clark MD 420 [facility] 394 [place], [place] 9[address] Assigned Surgical Provider 07/24/23 Ky Torres MD 420 [facility] 480 [place] [address] Assigned Cancer Care Provider 09/22/23 10/21/23 Sixto Whalen APRN CNP 909 [place] [address] Assigned Cancer Care Provider 10/22/23 12/21/23 Yessica Mcleod PA-C [address] [place] [address] 595275 Assigned Cancer Care Provider 12/22/23 01/21/24 Ky Torres MD [address] [place] [address] 516095 Assigned Cancer Care Provider 01/22/24 documented as of this encounter
--- OUTSIDE RECORDS SUMMARY | 2024-02-05 11:54 | XMS_ITS | Encounter Summary ---
Author Organization [place] Address [address] [place] [address]. [place] [address] Care Team Providers Care Oven Unloader Name Role Phone Alvaro Clark MD Unavailable System, Provider Not In Primary Care Provider Un available Ky Torres MD Unavailable [phone] Sixto Whalen APRN LEAD PHARMACY TECHNICIAN Unavailable [phone] No Ref-Primary, Physician Primary Care Provider Yessica Mcleod PA-C Unavailable Bhavin Gardner Primary Care Provider [phone] Ky Torres MD Unavailable [phone] Encounter Details Date Type Department Care Team (Late st Contact Info) Description 09/26/2023 MyC Medical Advice M [facility] [place] [address] S, [address] [place] [address] Ky Torres MD 420 [facility] 480 [place] [address] Social History Tobacco Use Types [...] 02/11/2024 11:00 AM CDT Infusion Therapy Visit [address] [place] [address] Ky Torres MD [address] [place] [address] 458695 03/11/2024 1:00 PM CDT Lab [address] [place] [address] Yessica Mcleod, PAJose Luis [address] [place] [address] 448265 03/11/2024 1:00 PM CDT Infusion Therapy Visit [place] [address] [place] [address] [place] [address] 03/11/2024 1:30 PM CDT Oncology Visit [address] [place] [address] Dylan Guerin PA [address]09 [place] [address] Yessica Mcleod, PAJose Luis [address] [place] [address] 154475 04/08/2024 1:00 PM LOW VOLTAGE TECHNICIAN Lab [address] [place] [address] Yessica Mcleod PA-C 909 [place] [address] 04/08/2024 1:30 PM LOW VOLTAGE TECHNICIAN Oncology Visit [address] [place] [address] Dylan Guerin PA [address]09 [place] [address] 04/08/2024 1:30 PM LOW VOLTAGE TECHNICIAN Infusion Therapy Visit [address] [place] [address] 05/02/2024 10:30 AM LOW VOLTAGE TECHNICIAN Lab [address] [place] [address] Ky Torres MD 420 [facility] 480 [place] [address] 05/02/2024 11:20 AM LOW VOLTAGE TECHNICIAN Appointment [facility] Imaging [address] [facility] [address] [place] [address] Ky Torres MD 420 [facility] 480 [place] [address] 05/06/2024 9:30 AM LOW VOLTAGE TECHNICIAN Lab [address] [place] [address] Ky Torres MD [address] [address] 05/06/2024 10:00 AM LOW VOLTAGE TECHNICIAN Oncology Visit [facility] [address] [place] [address] [facility] [place] [address] Ky Torres MD 420 [facility] 480 [place] [address] 05/06/2024 10:30 AM LOW VOLTAGE TECHNICIAN Infusion Therapy Visit [facility] [address] [place] [address] [place] [address] Ky Torres MD [address] 3576[address] documented as of this encounter Visit Diagnoses Not on filedocumented in this encounter Care Teams Oven Unloader Relationship Specialty Start Date End Date System, Provider Not In PCP - General Clinic 08/13/23 12/21/23 No Ref-Primary, Physician PCP - General 12/22/23 12/27/23 Bhavin Gardner 1400 [place] [address] PCP - General Family Medicine 12/28/23 Alvaro Clark MD 420 [facility] [address] [place], [place] 07[address] Assigned Surgical Provider 07/24/23 Ky Torres MD 420 [facility] [address] [place] [address] Assigned Cancer Care Provider 09/22/23 10/21/23 Sixto Whalen APRN CNP 9[address] [place] [address] Assigned Cancer Care Provider 10/22/23 12/21/23 Yessica Mcleod PA-C [address] [place] [address] 011985 Assigned Cancer Care Provider 12/22/23 01/21/24 Ky Torres MD [address] [place] [address] 140565 Assigned Cancer Care Provider 01/22/24 documented as of this encounter
--- OUTSIDE RECORDS SUMMARY | 2024-02-05 11:54 | XMS_ITS ---
Author Organization [place] Address [address] [place] [address] Care Team Providers Care Sample Mounter Name Role Phone Alvaro Clark MD Unavailable Bhavin Gardner Primary Care Provider [phone] Ky Torres MD Unavailable [phone] Transitional Care Management Status:Closed (Closed) Start date:12/25/2023 Enrollment date:12/27/2023 End date:01/08/2024 Close reason:Goals met Continued Care and Services Coordination
--- OUTSIDE RECORDS SUMMARY | 2024-02-05 11:54 | XMS_ITS | Encounter Summary ---
Author Organization [place] Address [address] [place] [address] Care Team Providers Care Office Supervisor Name Role Phone Alvaro Clakr MD Unavailable System, Provider Not In Primary Care Provider Un available Sixto Whalen APRN COMMUNITY EDUCATOR Unavailable [phone] Reason for Visit * Reason Comments Port Draw Encounter Details Date Type Department Care Team (Late st Contact Info) Description 11/10/2023 7:45 AM CDT Lab [facility] [address] 200 [place] [address] Ky Torres MD 420 [facility] 480 [place], [place] [address] Urothelial cancer (H) (Primary Dx) Social History [...] by provider today: Yes: Yessica Haynes PA-C Project Controller present during visit today: Not Applicable. Note: N/A. Intravenous Access: Labs drawn without difficulty. Implanted Port. Discharge Plan: Patient was sent to [facility] for provider appointment, followed by infusion. Felix Waller, RN documented in this encounter Plan of Treatment Upcoming Encounters Date Type Department Care Team (Late st Contact Info) Description 02/11/2024 11:00 AM CDT Infusion Therapy Visit [address] [place] [address] Ky Torres MD [address] [place] [address] 733455 03/11/2024 1:00 PM CDT Lab [address] [place] [address] Yessica Mcleod PA-C 909 [place], [place] 8[address]15 03/11/2024 1:00 PM CDT Infusion Therapy Visit [place] [address] [place] [address] [place] [address] 03/11/2024 1:30 PM CDT Oncology Visit [address] [place] [address] Dylan Guerin PA 909 [place], [place] 8[address] Yessica Mcleod PA-C 909 [place], [place] [phone] 04/08/2024 1:00 PM PHYSICIAN RELATIONS SPECIALIST Lab [address] [place] [address] Yessica Mcleod PA-C [address] [place] [address] 04/08/2024 1:30 PM PHYSICIAN RELATIONS SPECIALIST Oncology Visit [address] [place] [address] Dylan Guerin PA 909 [place] [address] 04/08/2024 1:30 PM PHYSICIAN RELATIONS SPECIALIST Infusion Therapy Visit [address] [place] [address] 05/02/2024 10:30 AM PHYSICIAN RELATIONS SPECIALIST Lab [address] [place] [address] Ky Torres MD [address] [address] 05/02/2024 11:20 AM PHYSICIAN RELATIONS SPECIALIST Appointment [facility] Imaging [address] [place] [address] [place] [address] Ky Torres MD 420 [facility] 480 [place] [address] 05/06/2024 9:30 AM PHYSICIAN RELATIONS SPECIALIST Lab [address] [place] [address] Ky Torres MD [address] [place] [facility] 480 [place] [address] 05/06/2024 10:00 AM PHYSICIAN RELATIONS SPECIALIST Oncology Visit [address] [place] [address] Ky Torres MD 420 [facility] 480 [place] [address] 05/06/2024 10:30 AM PHYSICIAN RELATIONS SPECIALIST Infusion Therapy Visit [address] [place] [address] Ky Torres MD 420 [facility] [address] [place] [address] documented as of this encounter Procedures Procedure [...] LAB - B LOOD ORDERABLES RH LABORATORY [facility] Acute Care Lab [address] [facility] Lab (1st floor, no room number) [place] [address] * (ABNORMAL) CBC [...] Haynes PA-C LAB - B LOOD ORDERABLES [facility] Lab [address] Lab (1st floor, no room number) [place] [address], [facility] * Magnesium (11/10/2023 7:33 AM CDT) Magnesium 1.7 1.7 - 2.3 mg/dL 11/10/2023 8:14 AM CDT RH LABORATORY Blood BLOOD SPECIMEN / Unknown IVAD (Port) / Unknown 11/10/2023 7:33 AM CDT 11/10/2023 7:42 AM CDT Yessica Haynes PA-C LAB - B LOOD ORDERABLES [facility] Acute Care Lab [address] Lab (1st floor, no room number) [place] [address], [facility] * (ABNORMAL) Comprehensive metabolic panel (11/10/2023 7:33 AM CDT) [facility] Sodium 140 135 - 145 mmol/L [...] PA-C LAB - B LOOD ORDERABLES LABORATORY [facility] Acute Care Lab [address] Lab (1st floor, no room number) [place] [address], [facility] documented [...] mLs documented in this encounter Care Teams Office Supervisor Relationship Specialty Start Date End Date System, Provider Not In PCP - General Clinic 08/13/23 12/21/23 Alvaro Clark MD [address] [address] Assigned Surgical Provider 07/24/23 Sixto Whalen APRN COMMUNITY EDUCATOR [address] [place] [address] Assigned Cancer Care Provider 10/22/23 12/21/23 documented as of this encounter
--- OUTSIDE RECORDS SUMMARY | 2024-02-05 11:54 | XMS_ITS | Encounter Summary ---
Author Organization [place] Address [address] [place] [address] Care Team Providers Care Second Class Welder Name Role Phone Dalila Arrieta Unavailable [phone] System, Provider Not In Primary Care Provider Un available Alvaro Clark MD Unavailable System, Provider Not In Primary Care Provider Un available Ky Torres MD Unavailable [phone] Sixto Whalen APRN VARIOUS EXCEPTIONALITIES TEACHER Unavailable [phone] No Ref-Primary, Physician Primary Care Provider Yessica Mcleod PA-C Unavailable Bhavin Gardner Primary Care Provider [phone] Ky Torres MD Unavailable [phone] Encounter Details Date Type Department Care Team (Late st Contact Info) Description 07/17/2023 [facility] Medical Advice [facility] Pre[facility] [address] 5th [place] [address] Lisa Guevara, RN Social History [...] 02/11/2024 11:00 AM CDT Infusion Therapy Visit [address] [place] [address] Ky Torres MD 420 [facility] 480 [place], [place] [address] 03/11/2024 1:00 PM CDT Lab [address] [place] [phone] Yessica Mcleod, PAJannetC 906 [place], [place] [address] 03/11/2024 1:00 PM CDT Infusion Therapy Visit [address] [place] [address] 03/11/2024 1:30 PM CDT Oncology Visit [address] [place] [address] Dylan Guerin PA 909 [place], [place] [phone] Yessica Mcleod PA-C 901 [place], [place] [phone] 04/08/2024 1:00 PM LABOR EXPEDITER Lab [address] [place] [address] Yessica Mcleod, PAJannetC 900 [place] [address] 04/08/2024 1:30 PM LABOR EXPEDITER Oncology Visit [address] [place] [address] Dylan Guerin PA 909 [place] [address] 04/08/2024 1:30 PM LABOR EXPEDITER Infusion Therapy Visit [address] [place] [address] 05/02/2024 10:30 AM LABOR EXPEDITER Lab [address] [place] [address] Ky Torres MD [address] [address] 05/02/2024 11:20 AM LABOR EXPEDITER Appointment [facility] [address] [place] [address] Ky Torres MD 420 [facility] 480 [place] [address] 05/06/2024 9:30 AM LABOR EXPEDITER Lab [address] [place] [address] Ky Torres MD [address] [address] 05/06/2024 10:00 AM LABOR EXPEDITER Oncology Visit [address] 200 [place] [address] Ky Torres MD 420 [facility] 480 [place] [address] 05/06/2024 10:30 AM LABOR EXPEDITER Infusion Therapy Visit [facility] [address] [place] [address] Ky Torres MD [address] [address] documented as of this encounter Visit Diagnoses Not on filedocumented in this encounter Care Teams Second Class Welder Relationship Specialty Start Date End Date System, Provider Not In PCP - General Clinic 07/20/23 07/20/23 System, Provider Not In PCP - General Clinic 08/13/23 12/21/23 No Ref-Primary, Physician PCP - General 12/22/23 12/27/23 Bhavin Gardner [address] [place] [address] PCP - General Family Medicine 12/28/23 Dalila Arrieta PA [address] [place] [address] Urology [place], [place] [phone] Assigned Surgical Provider 07/03/23 Alvaro Clark MD 420 [facility] 394 [place], [place] [address]535 Assigned Surgical Provider 07/24/23 Ky Torres MD 420 [facility] 480 [place] [address] Assigned Cancer Care Provider 09/22/23 10/21/23 Sixto Whalen APRN CNP [address] [place] [address] 065615 Assigned Cancer Care Provider 10/22/23 12/21/23 Yessica Mcleod PA-C [address] [place] [address] [phone] Assigned Cancer Care Provider 12/22/23 01/21/24 Ky Torres MD [address] [place] [address] Assigned Cancer Care Provider 01/22/24 documented as of this encounter
--- OUTSIDE RECORDS SUMMARY | 2024-02-05 11:54 | XMS_ITS | Encounter Summary ---
Author Organization [facility] [place] Address [address] [place] [address] Care Team Providers Care Collateral Specialist Name Role Phone Alvaro Clark MD Unavailable System, Provider Not In Primary Care Provider Un available Sixto Whalen APRN GASOLINE DRAGLINE OPERATOR Unavailable [phone] Reason for Visit * Reason Comments Chemotherapy C3D1 Methotrexate + Vinblastine + Doxorubicin + Cisplatin + Pre/Post IV hydration + Neulasta On-Pro * (Routine) - Pending Review Specialty Diagnoses / Procedures Referred By Contac t Referred To Contact Infusion Therapy Diagnoses A-MVAC labs and provider day prior Procedures INFUSION 5.5 HR (330 MIN) [facility] Cancer Infusion [address] [facility] [address] [place] [address] Referral ID Status Reason Start Date Expiration Date V isits Requested Visits Authorized [id number] Pending Review 10/28/2023 10/27/2024 1 1 Encounter Details Date Type Department Care Team (Latest Contact Info) Description 10/28/2023 9:00 AM CDT Infusion Therapy Visit [facility] [address] [place] [address] [place] [phone] Yessica Mcleod PA-C 9 [place] [address] Urothelial cancer (H) [...] visit with Sixto Whalen NP on 10/26) Bologna Maker present during visit today: Not Applicable. Note: [...] all questions answered. AVS to patient via TrivopT. Patient will return 11/09 for next appointment. Patient discharged in stable condition accompanied by: self. Departure Mode: Ambulatory. Felix Waller RN documented in this encounter Plan of Treatment Upcoming Encounters Date Type Department Care Team (Late st Contact Info) Description 02/11/2024 11:00 AM CDT Infusion Therapy Visit [place] [address] [place] [address] [place] [address] Ky Torres MD [address] 8899[address] 03/11/2024 1:00 PM CDT Lab [place] [address] [place] [phone] Yessica Mcleod PAJose Luis [address] [place] [phone] 03/11/2024 1:00 PM CDT Infusion Therapy Visit [place] [address] [place] [address] 03/11/2024 1:30 PM CDT Oncology Visit [address] [place] [address] Dylan Guerin PA 909 [place], [place] [address] Yessica Mcleod PA-C [address] [place] [address] 597[address] 04/08/2024 1:00 PM TECHNICAL SALES REPRESENTATIVE Lab [place] [address] [place] [address] Yessica Mcleod PA-C [address] [place] [address] [phone] 04/08/2024 1:30 PM TECHNICAL SALES REPRESENTATIVE Oncology Visit [place] [address] [place] [address] Dylan Guerin PA [address] [place] [address] [phone] 04/08/2024 1:30 PM TECHNICAL SALES REPRESENTATIVE Infusion Therapy Visit [place] [address] [place] [address] 05/02/2024 10:30 AM TECHNICAL SALES REPRESENTATIVE Lab [place] [address] [place] [address] Ky Torres MD [address] [facility] 480 [place] [address] 05/02/2024 11:20 AM TECHNICAL SALES REPRESENTATIVE Appointment [facility] [address] [place] [address] [place] [address] Ky Torres MD 420 [facility] 480 [place] [address] 05/06/2024 9:30 AM TECHNICAL SALES REPRESENTATIVE Lab [address] [place] [address] Ky Torres MD [address] [address] 05/06/2024 10:00 AM TECHNICAL SALES REPRESENTATIVE Oncology Visit [address] [place] [address] Ky Torres MD [address] [address] 05/06/2024 10:30 AM TECHNICAL SALES REPRESENTATIVE Infusion Therapy Visit [address] [place] [address] Ky Torres MD 420 [facility] 480 [place] [address] documented as of this encounter Visit Diagnoses [...] cabazitaxel) on the same day, administer this [place] agent after the taxane. $New Bag 10/28/2023 [...] On Thu10/28/23 at 0930, For 1 dose, [place] hang. For Intravenous Use Only. Fatal If Given By Other Routes. Vesicant. May require hepatic and/or renal dose or frequency adjustments. See reference link for guidelines. $New Bag 10/28/2023 10:02 AM CDT 6.2 mg documented in this encounter Care Teams Collateral Specialist Relationship Specialty Start Date End Date System, Provider Not In PCP - General Clinic 08/13/23 12/21/23 Alvaro Clark MD [address] [address] Assigned Surgical Provider 07/24/23 Sixto Whalen APRN CNP [address] [place] [address] [phone] Assigned Cancer Care Provider 10/22/23 12/21/23 documented as of this encounter
--- OUTSIDE RECORDS SUMMARY | 2024-02-05 11:54 | XMS_ITS | Encounter Summary ---
Author Organization [facility] Address [address] [place] [address] Care Team Providers Care Supervisor Furnace Process Name Role Phone Alvaro Clark MD Unavailable System, Provider Not In Primary Care Provider Un available Sixto Whalen APRN FAMILY LAW MEDIATOR Unavailable [phone] Reason for Referral * Diagnostic Imaging Ultrasound (Routine) - Pending Review Specialty Diagnoses / Procedures Referred By Contac t Referred To Contact Radiology. Diagnoses Left leg swelling Procedures US Lower Extremity Venous Duplex Left Yessica Mcleod PA-C [address] [place] [address] Fax: [phone] Referral ID Status Reason Start Date Expiration Date V isits Requested Visits Authorized [id number] Pending Review 11/10/2023 11/09/2024 1 1 Reason for Visit * Reason Comments Oncology Clinic Visit Encounter Details Date Type Department Care Team (Latest Contact Info) Description 11/10/2023 8:00 AM CDT Oncology Visit [address] [facility] [place] [phone] Yessica Mcleod PA-C [address] [place] [address] [phone] Urothelial cancer (H) (Primary Dx); Left leg [...] initially had urinary retention wasseen in the [place] ED in May 2023. He saw urology [...] bruising. PMHx and Social Hx reviewed per [employer]. Medications: Current Outpatient Medications Medication Sig Dispense [...] cortisone to the area. Chart documentation with Typemock Voice recognition Software. Although reviewed after completion, some words and grammatical errors may remain. 24 minutes spent on the date of the encounter doing chart review, review of test results, interpretation of tests, patient visit, and documentation Yessica Cheng PA-C Hematology/Oncology [facility] documented in this encounter Nursing Notes [...] not needed today. Pharmacy name entered into Zipcar: [place], [place] - [address] [facility] Frailty Screening: Is the patient here for a new oncology consult visit in cancer care? 2. No Clinical concerns: f/u Lori Portillo CMA documented in this encounter Plan of Treatment Upcoming Encounters Date Type Department Care Team (Late st Contact Info) Description 02/11/2024 11:00 AM CDT Infusion Therapy Visit [facility] [address] [place] [address] Ky Torres MD 420 [facility] 480 [place] [address] 03/11/2024 1:00 PM CDT Lab [address] [place] [address] Yessica Mcleod PA-C 1 [place], [place] [address] 03/11/2024 1:00 PM CDT Infusion Therapy Visit [address] [place] [address] 03/11/2024 1:30 PM CDT Oncology Visit [address] [place] [address] Dylan Guerin PA 9 [place], [place] [address] Yessica Mcleod PA-C [address] [place] [address] 04/08/2024 1:00 PM GROUP LEADER WAFER POLISHING Lab [address] [place] [address] Yessica Mcleod PA-C [address] [place] [address] 3636[address] 04/08/2024 1:30 PM GROUP LEADER WAFER POLISHING Oncology Visit [address] [place] [address] Dylan Guerin PA [address] [place] [address] [phone] 04/08/2024 1:30 PM GROUP LEADER WAFER POLISHING Infusion Therapy Visit [place] [address] [place] [address] 05/02/2024 10:30 AM GROUP LEADER WAFER POLISHING Lab [address] [place] [address] Ky Torres MD [address] [facility] 480 [place] [address] 05/02/2024 11:20 AM GROUP LEADER WAFER POLISHING Appointment [facility] Imaging [address] [place] [address] Ky Torres MD [address] [facility] 480 [place] [address] 05/06/2024 9:30 AM GROUP LEADER WAFER POLISHING Lab [address] [place] [address] Ky Torres MD [address] [facility] [address] [place] [address] 05/06/2024 10:00 AM GROUP LEADER WAFER POLISHING Oncology Visit [place] [address] [place] [address] [place] [address] Ky Torres MD [address] [facility] [address] [place] [address] 05/06/2024 10:30 AM GROUP LEADER WAFER POLISHING Infusion Therapy Visit [place] [address] [place] [address] Ky Torres MD 420 [facility] 480 [place], [place] 466[address] documented as of this encounter Results * [...] swelling documented in this encounter Care Teams Supervisor Furnace Process Relationship Specialty Start Date End Date System, Provider Not In PCP - General Clinic 08/13/23 12/21/23 Alvaro Clark MD [address] [address] Assigned Surgical Provider 07/24/23 Sixto Whalen APRN CNP [address] [place] [address] Assigned Cancer Care Provider 10/22/23 12/21/23 documented as of this encounter
--- OUTSIDE RECORDS SUMMARY | 2024-02-05 11:54 | XMS_ITS | Encounter Summary ---
Author Organization [facility] Address [address] [place] [address] Care Team Providers Care Nurse Instructor Name Role Phone Dalila Arireta Unavailable [phone] System, Provider Not In Primary Care Provider Un available Alvaro Clark MD Unavailable System, Provider Not In Primary Care Provider Un available Ky Torres MD Unavailable [phone] Sixto Whalen APRN VARITYPE OPERATOR Unavailable [phone] No Ref-Primary, Physician Primary Care Provider Yessica Mcleod PA-C Unavailable Bhavin Gardner Primary Care Provider [phone] Ky Torres MD Unavailable [phone] Reason for Visit * Reason Onset Date Comments Appointment 06/08/2023 Patient needs an appointment for retention and hematuria - please call. Encounter Details Date Type Department Care Team (Late st Contact Info) Description 06/08/[address] [facility] [address] 4th [place] [address] None Appointment (Patient needs an [...] encounter Miscellaneous Notes * Telephone Encounter - Drake, Angelic - 06/10/2023 8:11 AM CST Action 06/10/23 ROSALIE 8:11 AM Action Taken Records from [facility] ER received. Sent to urgent scanning to be uploaded. CONCESSION MANAGER * Telephone Encounter - Jacque Chan, CARLOS - 06/09/2023 3:14 PM CST Spoke with Zoraida, Patient's niece. He was seen for retention at [facility] ER. They had referred him to be seen by [facility] but they declined due to being too far away. They would like to be seen at [facility].Patient scheduled for next available with Carolina Arrieta. Zoraida has a disc with imaging and ED notes. Encounter sent to Kandi Romo to try and bring in anyrecords from [facility]. Jacque Chan RN on 06/09/2023 at 3:20 PM CONCESSION MANAGER * Telephone Encounter - Rosalinda Hendricks - 06/08/2023 4:27 PM CST [facility] Center Phone Message May a detailed message [...] Message routed to: [facility] ([facility]): URO Travel Screening: Not Applicable CONCESSION MANAGER documented in this encounter Plan of Treatment Upcoming Encounters Date Type Department Care Team (Late st Contact Info) Description 02/11/2024 11:00 AM CDT Infusion Therapy Visit [facility] [address] [place] [address] [address] [place] [address] Ky Torres MD 420 [facility] 480 [place], [place] [address] 03/11/2024 1:00 PM CDT Lab [address] [place] [address] Yessica Mcleod PA-C [address] [place] [address] [phone] 03/11/2024 1:00 PM CDT Infusion Therapy Visit [address] [place] [address] 03/11/2024 1:30 PM CDT Oncology Visit [address] [place] [address] Dylan Guerin PA [address] [place] [address]005 Yessica Mcleod PA-C [address] [place] [address] 716655 04/08/2024 1:00 PM FOOD CONCESSION MANAGER Lab [address] [place] [address] Yessica Mcleod PA-C [address] [place] [address] [phone] 04/08/2024 1:30 PM FOOD CONCESSION MANAGER Oncology Visit [address] [place] [address] Dylan Guerin PA [address] [place] [address] 04/08/2024 1:30 PM FOOD CONCESSION MANAGER Infusion Therapy Visit [address] [place] [address] 05/02/2024 10:30 AM FOOD CONCESSION MANAGER Lab [address] [place] [address] Ky Torres MD [address] [address] 05/02/2024 11:20 AM FOOD CONCESSION MANAGER Appointment [facility] Imaging [address] [place] [address] Ky Torres MD [address] [facility] 480 [place], [place] 8[address] 05/06/2024 9:30 AM FOOD CONCESSION MANAGER Lab [address] [place] [address] Ky Torres MD [address] [facility] 480 [place] [address] 05/06/2024 10:00 AM FOOD CONCESSION MANAGER Oncology Visit [address] [place] [address] Ky Torres MD [address] [facility] 480 [place] [address] 05/06/2024 10:30 AM FOOD CONCESSION MANAGER Infusion Therapy Visit [facility] [address] [place] [phone] Ky Torres MD 420 [facility] 480 [place] [address] documented as of this encounter Visit Diagnoses Not on filedocumented in this encounter Care Teams Nurse Instructor Relationship Specialty Start Date End Date System, Provider Not In PCP - General Clinic 07/20/23 07/20/23 System, Provider Not In PCP - General Clinic 08/13/23 12/21/23 No Ref-Primary, Physician PCP - General 12/22/23 12/27/23 Bhavin Gardner [address] [place] [address] PCP - General Family Medicine 12/28/23 Dalila Arrieta PA [address] [place] [address] [place], [place] 487825 Assigned Surgical Provider 07/03/23 Alvaro Clark MD [address] [place] [address] Assigned Surgical Provider 07/24/23 Ky Torres MD 420 [facility] 480 [place] [address] Assigned Cancer Care Provider 09/22/23 10/21/23 Sixto Whalen APRN CNP [address] [place] [address] Assigned Cancer Care Provider 10/22/23 12/21/23 Yessica Mcleod PA-C [address] [place] [address] 120735 Assigned Cancer Care Provider 12/22/23 01/21/24 Ky Torres MD [address] [place] [address] 312995 Assigned Cancer Care Provider 01/22/24 documented as of this encounter
--- OUTSIDE RECORDS SUMMARY | 2024-02-05 11:54 | XMS_ITS | Encounter Summary ---
Author Organization [facility] Address [address] [place] [address] Care Team Providers Care Review Assistant Name Role Phone Dalila Arrieta Unavailable [phone] System, Provider Not In Primary Care Provider Un available Alvaro Clark MD Unavailable System, Provider Not In Primary Care Provider Un available Ky Torres MD Unavailable [phone] Sixto Whalen APRN, CNP Unavailable [phone] No Ref-Primary, Physician Primary Care Provider Yessica Mcleod PA-C Unavailable Bhavin Gardner Primary Care Provider [phone] Ky Torres MD Unavailable [phone] Reason for Visit * Reason Onset Date Comments Patient Request 06/15/2023 Encounter Details Date Type Department Care Team (Late st Contact Info) Description 06/15/2023 [facility] [address] [place] [address] Dalila Arrieta PA [address] [place] [address] [place] [address] Patient Request Social History Tobacco [...] Pia Caceres - 06/15/2023 10:22 AM CST [facility] Phone Message May a detailed message be left on voicemail: yes Reason for Call: Other: Pt razia Conway calling regarding pt upcoming appt for retention. Zoraida states pt is requesting a morning appt if possible. Please call Zoraida Action Taken: Message routed to: Other: Uro Travel Screening: Not Applicable SCREEN CUTTER documented in this encounter Plan of Treatment Upcoming Encounters Date Type Department Care Team (Late st Contact Info) Description 02/11/2024 11:00 AM CDT Infusion Therapy Visit [place] [address] [place] [address] Ky Torres MD [address] [place] [address] [id number] 03/11/2024 1:00 PM CDT Lab [place] [address] [place] [address] Yessica Mcleod PA-C [address] [place] [address] [id number] 03/11/2024 1:00 PM CDT Infusion Therapy Visit [place] [address] [place] [phone] 03/11/2024 1:30 PM CDT Oncology Visit [place] [address] [address] [place] [address] Dylan Guerin PA [address] [place] [address] Yessica Mcleod PA-C [address] [place] [address] 04/08/2024 1:00 PM SILK SCREEN CUTTER Lab [address] [place] [address] Yessica Mcleod PA-C [address] [place] [address] 04/08/2024 1:30 PM SILK SCREEN CUTTER Oncology Visit [address] [place] [address] Dylan Guerin PA [address] [place] [address] 04/08/2024 1:30 PM SILK SCREEN CUTTER Infusion Therapy Visit [address] [place] [address] 05/02/2024 10:30 AM SILK SCREEN CUTTER Lab [address] [place] [address] Ky Torres MD 420 [facility] 480 [place], [place] [phone] 05/02/2024 11:20 AM SILK SCREEN CUTTER Appointment [facility] [address] [place] [phone] Ky Torres MD 420 [facility] 480 [place], [place] [address] 05/06/2024 9:30 AM SILK SCREEN CUTTER Lab [address] [place] [address] Ky Torres MD [address] [address] 05/06/2024 10:00 AM SILK SCREEN CUTTER Oncology Visit [address] [place] [address] Ky Torres MD [address] [address] 05/06/2024 10:30 AM SILK SCREEN CUTTER Infusion Therapy Visit [address] [place] [address] Ky Torres MD [address] [address] documented as of this encounter Visit Diagnoses Not on filedocumented in this encounter Care Teams Review Assistant Relationship Specialty Start Date End Date System, Provider Not In PCP - General Clinic 07/20/23 07/20/23 System, Provider Not In PCP - General Clinic 08/13/23 12/21/23 No Ref-Primary, Physician PCP - General 12/22/23 12/27/23 Bhavin Gardner [address] [place] [address] PCP - General Family Medicine 12/28/23 Dalila Arrieta PA [address] [place] [address] [place], [place] 197475 Assigned Surgical Provider 07/03/23 Alvaro Clark MD [address] [place] [address] [id number] Assigned Surgical Provider 07/24/23 Ky Torres MD [address] [place] [address] 134475 Assigned Cancer Care Provider 09/22/23 10/21/23 Sixto Whalen APRN CNP [address] [place] [address] [id number] Assigned Cancer Care Provider 10/22/23 12/21/23 Yessica Mcleod PA-C [address] [place] [address] [phone] Assigned Cancer Care Provider 12/22/23 01/21/24 Ky Torres MD [address] [place] [address] [phone] Assigned Cancer Care Provider 01/22/24 documented as of this encounter
--- OUTSIDE RECORDS SUMMARY | 2024-02-05 11:54 | XMS_ITS | Encounter Summary ---
Author Organization [facility] Address [address] [place] [address] Care Team Providers Care Servicer Travel Trailers Name Role Phone Alvaro Clark MD Unavailable System, Provider Not In Primary Care Provider Un available Ky Torres MD Unavailable [phone] Sixto Whalen APRN MILLWORK ESTIMATOR Unavailable [phone] No Ref-Primary, Physician Primary Care Provider Yessica Mcleod PA-C Unavailable Bhavin Gardner Primary Care Provider [phone] Ky Torres MD Unavailable [phone] Encounter Details Date Type Department Care Team (Late st Contact Info) Description 07/24/2023 [facility] Medical Advice [facility] [address] 4th [place] [address] Diamond Conway, RN Social History [...] 11:00 AM CDT Infusion Therapy Visit [address] [place] [phone] Ky Torres MD [address] [id number] 03/11/2024 1:00 PM CDT Lab [address] [place] [phone] Yessica Mcleod PA-C [address] [place] [address] [phone] 03/11/2024 1:00 PM CDT Infusion Therapy Visit [place] [address] [place] [address] [place] [address] 03/11/2024 1:30 PM CDT Oncology Visit [address] [place] [address] Dylan Guerin PA [address] [place] [address] Yessica Mcleod PA-C [address] [place] [address] [phone] 04/08/2024 1:00 PM WINDOW GLASS INSTALLER Lab [address] [place] [address] Yessica Mcleod PA-C [address] [place] [address] [phone] 04/08/2024 1:30 PM WINDOW GLASS INSTALLER Oncology Visit [address] [place] [phone] Dylan Guerin PA [address] [place] [address] 04/08/2024 1:30 PM WINDOW GLASS INSTALLER Infusion Therapy Visit [address] [place] [address] 05/02/2024 10:30 AM WINDOW GLASS INSTALLER Lab [address] [place] [address] Ky Torres MD [address] [facility] 480 [place] [address] 05/02/2024 11:20 AM WINDOW GLASS INSTALLER Appointment [facility] Imaging [address] [place] [phone] Ky Torres MD [address] [facility] 480 [place] [address] 05/06/2024 9:30 AM WINDOW GLASS INSTALLER Lab [address] [place] [address] Ky Torres MD [address] [facility] 480 [place] [address] 05/06/2024 10:00 AM WINDOW GLASS INSTALLER Oncology Visit [address] [place] [address] Ky Torres MD 420 [facility] 480 [place] [address] 05/06/2024 10:30 AM WINDOW GLASS INSTALLER Infusion Therapy Visit [facility] [address] [place] [address] [place] [address] Ky Torres MD 420 [facility] [address] [place], [place] [phone] documented as of this encounter Visit Diagnoses Not on filedocumented in this encounter Care Teams Servicer Travel Trailers Relationship Specialty Start Date End Date System, Provider Not In PCP - General Clinic 08/13/23 12/21/23 No Ref-Primary, Physician PCP - General 12/22/23 12/27/23 Bhavin Gardner [address] [place] [address] PCP - General Family Medicine 12/28/23 Alvaro Clark MD [address] [place] [address] Assigned Surgical Provider 07/24/23 Ky Torres MD 420 [facility] 480 [place], [place] [phone] Assigned Cancer Care Provider 09/22/23 10/21/23 Sixto Whalen APRN CNP [address] [place], [place] [phone] Assigned Cancer Care Provider 10/22/23 12/21/23 Yessica Mcleod, LIDIAC [address] [place], [place] [phone] Assigned Cancer Care Provider 12/22/23 01/21/24 Ky Torres MD [address] [place] [address] Assigned Cancer Care Provider 01/22/24 documented as of this encounter
[2024-02-05 12:00] LABS: Slide Review Acceptable Review (Acceptable)
[2024-02-05 12:06] LABS: Chloride* 100 mmol/L (96-114)
[2024-02-05 12:07] LABS: Potassium* 3.8 mmol/L (3.6-5.1); Sodium* 133 mmol/L (135-149)
[2024-02-05 12:08] LABS: Appearance Urine Turbid (Clear); Bilirubin Urine Negative (Negative); Blood Urine 2+ (Negative); Color Urine Yellow (Yellow); Glucose Urine Negative (Negative); Ketones Urine Negative (Negative); Leukocyte Esterase Urine 3+ (Negative); Nitrite Urine Positive (Negative); Protein Urine 1+ (Negative); Specific Gravity Urine 1.015 (1.000-1.030); Urobilinogen Urine 0.2 (0.2-1.0); pH Urine 6.5 (5.0-8.5)
[2024-02-05 12:09] LABS: Creatinine* 1.1 mg/dL (0.5-1.5); Estimated Glomerular Filt Rate 75 ml/min
[2024-02-05 12:10] LABS: Anion Gap 7 mEq/L (7-15); Blood Urea Nitrogen* 20 mg/dL (7-30); Calcium* 9.2 mg/dL (8.4-10.6); Carbon Dioxide* 26 mmol/L (20-32); Glucose* 126 mg/dL (60-115)
[2024-02-05 12:11] LABS: Magnesium* 1.9 mg/dL (1.5-2.6)
[2024-02-05 12:13] LABS: C Reactive Protein* 6.8 mg/dL (0.5-1.0)
[2024-02-05 12:30] VITALS: BP 125/82; PULSE 109; RESP 18; O2SAT 96
[2024-02-05 12:31] LABS: Bacteria Urine Many; Squamous Epithelial Cell Urine Moderate (None-Few); WBC Urine >100 (0-5)
[2024-02-05] MEDS: LIDOCAINE 1% 5 ml (pf) 5 ML VIAL 2.1 ML IM (13:35)
[2024-02-05] MEDS: cefTRIAXone 1 GM VIAL IM (13:35)
[2024-02-05 13:58] LABS: PCR FLU A Negative PCR FLU A (Negative); PCR FLU B Negative PCR FLU B (Negative); SARS PCR* Negative SARS-CoV-2 (Negative)
== END 2024-02-05 14:36 | disposition home or self-care (01) ==
PROVIDERS: Emergency Provider Family Medicine; PCP Family Medicine
DX: N30.90 Cystitis, unspecified without hematuria (principal)
CPT/HCPCS: 36415; 80048; 81001; 83605; 83735; 85025; 86140; 87086; 87186; 87631; 96361; 96372; 96374; 99284; J0696; J7030

== ENCOUNTER 2024-03-11 10:28 | Emergency (ER) | payer MEDICARE, OTHER, SELFPAY ==
[2024-03-11] VITALS (9 sets, daily range): BP systolic 117–121; BP diastolic 67–77; PULSE 79–91; RESP 16; TEMP 36.3; O2SAT 91–95; BMI 25.8
--- NOTE | 2024-03-11 10:59 | CRLHL7_ITS ---
For Patients: As a result of the 21st Century Cures Act, medical imaging exams and procedure reports are released immediately into your electronic medical record. You may view this report before your referring provider. If you have questions, please contact your health care provider. INDICATION: Periumbilical abdominal pain TECHNIQUE: Axial images were obtained from the diaphragm to the pubic symphysis. Reformats were obtained in the coronal and sagittal plane. IV Contrast: 90 cc Isovue 370 Oral Contrast: None COMPARISON: Abdomen and pelvis CT 12/26/2023 FINDINGS: Lower chest: Unremarkable. Liver: Normal in contour with subcentimeter hypodensities which are too small for characterization although similar to the prior exam. Gallbladder and bile ducts: Unremarkable. No stones or inflammation. No biliary dilatation. Spleen: Unremarkable. Normal in size without mass. Pancreas: Unremarkable. No mass or inflammation. Adrenal glands: Unremarkable. No nodules. Kidneys: Symmetric renal enhancement with bilateral urothelial thickening extending to the level of the neobladder. Air noted within the bilateral collecting systems. Vasculature: Atherosclerosis without abdominal aortic aneurysm. GI tract: The stomach is decompressed. Small bowel decompressed with anastomotic line in the right abdomen. Colonic diverticulosis without localized inflammation. 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 Surgical clips along the pelvic sidewall with rim enhancing collection along the left pelvic sidewall measuring 6.6 x 2.2 centimeters. Status post prostatectomy. Bones: Degenerative disc disease lumbar spine. IMPRESSION: 1. Status post ileal neobladder creation with some urothelial thickening and air noted within the neobladder loop and upper collecting systems. Differential diagnosis for air in the collecting system would include infection, recent instrumentation/Isaac catheter or occult fistula to the ileal neobladder loop. 2. Fluid collection along the left pelvic sidewall measuring 6.6 x 2.2 centimeters. Much of the previous inner free fluid has resolved, however this left pelvic sidewall collection has formed with rim enhancement. In the correct clinical setting infected collection is not excluded although the appearance would favor a seroma or lymphocele. 3. Colonic diverticulosis without CT evidence of diverticulitis. Please note that all CT scans at this facility use dose modulation, iterative reconstruction, and/or weight-based dosing when appropriate to reduce radiation dose to as low as reasonably achievable. Dictated by Kirk Raymundo MD @ 03/11/2024 12:32:31 PM (Electronically Signed)
--- NOTE | 2024-03-11 11:05 | ED_ITS ---
HPI - General Adult General Chief complaint: Abdominal Pain Stated complaint: Severe abdominal pain Time Seen by Provider: 03/11/24 10:49 Source: patient Mode of arrival: ambulatory Limitations: no limitations History of Present Illness HPI narrative: 64-year-old male coming in today complaining of multiple issues. Patient states that he has abdominal pain started this morning pain is located around the belly button and just below it, it comes and goes and is not constant. He states that occurs every 10 minutes or so and lasts several seconds. He has to stop what he is doing because it is so painful. He states that he has not urinated since yesterday. Patient presents to the ER around 11:00 a.m.. I asked him if he has not urinated at all today and he says well maybe a little. He states that he had a bowel movement yesterday which was small. He states that generally has daily bowel movements but feels like he is likely slightly constipated. He states that 2 days ago he vomited 1 time but has not vomited since. No blood in his vomitus. No blood in his stools. No changes in the color of his urine, or odor. He states that he has been eating less than usual because he is not hungry. He states that he feels chills, unsure if he has had fevers or not. He complains of a pressure in his lower chest. Pressure is constant, unclear how long it has been there. He denies feeling short of breath. He denies coughing. patient does have history of bladder cancer and bladder reconstruction that occurred approximately 2 years ago. Related Data Previous Rx's ?Medication ?Instructions ?Recorded ciprofloxacin HCl 500 mg tablet 500 mg PO BID 7 days #14 tabs 03/11/24 Allergies Allergy/AdvReac Type Severity Reaction Status Date / Time Penicillins Allergy Intermediate Verified 03/11/24 10:40 Review of Systems Status of ROS: Reports: 10 or more systems reviewed and unremarkable except as noted in History and below [facility] Medical History Reactive airway disease ?J45.909 - Unspecified asthma, uncomplicated (ICD-10) Pneumonia ?J18.9 - Pneumonia, unspecified organism (ICD-10) Surgical History History of pyloric stenosis as a child ?Z87.19 - Personal history of other diseases of the digestive system (ICD-10) Family History Father Cancer of kidney Myocardial infarction, Onset Age: 87 Grandfather Myocardial infarction Grandmother Myocardial infarction Social History 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 Alert and oriented. Answers questions appropriately. Affect is appropriate. Patient seems very put off to be here today, annoyed that he has to answer questions. Thoughts are goal oriented and rational. No tangential or magical thinking noted. Patient speaks in full sentences without needing to catch hisbreath. HEENT: Normocephalic atraumatic. Pupils are equally round reactive to light. Extraocular muscles are intact. Conjunctivae are moist without any icterus noted. slightly dry mucous membranes. Posterior pharynx is normal. neck is soft. Cardiovascular: Heart is regular rate and rhythm S1 and S2 are present without any murmurs. Lungs: Clear to auscultation bilaterally no wheezes rhonchi or rales are appreciated. Patient takes deep breaths without any discomfort. Abdomen: Soft and nondistended. He has hyperactive bowel sounds. He has no tenderness with palpation, some fullness in the suprapubic region with mild discomfort. Negative Holland sign. A few minutes into the exam patient does have an episode of pain for which he closes eyes and hold his breath until it passes, It lasts a few seconds. Extremities: Bilateral lower extremities are without edema. Skin: Well perfused. Const: Vital Signs, click to edit/add: Vital Signs - 24 hr 03/11/24 10:32 03/11/24 12:00 03/11/24 12:00 Temperature 97.3 F L Pulse Rate Pulse Rate [Pulse Oximeter] 91 Respiratory Rate 16 Blood Pressure [Ri ght Upper Arm] 121/67 117/71 Pulse Oximetry 93 94 Oxygen Delivery Me thod Room Air 03/11/24 12:15 03/11/24 12:30 03/11/24 12:45 Temperature Pulse Rate 91 90 89 Pulse Rate [Pulse Oximeter] Respiratory Rate Blood Pressure [Ri ght Upper Arm] Pulse Oximetry 91 92 93 Oxygen Delivery Me thod Course Course ED Course: Bladder scan was done and this showed greater than 600 mL of urine inside the bladder. Upon discussion of this with the patient he then tells me that he self catheterizes 2 times per day once in the morning and once in the evening he did not cath himself this morning. He states that done during the day he urinates a little bit on his own. We discussed having him self catheterization versus just putting in an indwelling catheter for now and patient thinks that an indwelling catheter but potentially be a good idea, therefore that was done. Lab work was also done: CBC was unremarkable. He does have mild anemia with a hemoglobin of 12.1 but this does not appear to be a new issue for him. Sodium is slightly low at 134 and potassium a little bit high at 5.4. BUN is markedly elevated at 51, creatinine 1.4. Normal LFTs. CRP slightly elevated at 2.1. Normal troponin. EKG was also done, read by me, shows normal sinus rhythm with a pulse of 90, short OR interval. Urine analysis was grossly abnormal. At this time I did consult with Dr. Dodge, urology at [facility], who recommended, because the patient was generally not feeling well, that he should be put on antibiotics despite what his urine looks like-he stated that his urine will likely look very abnormal as it always does. He recommended Cipro. Looking back through patient's microbiology, he has had Klebsiella pneumonia grow out several times in each time was sensitive to ciprofloxacin. He also recommended that we leave the Isaac in until next week or he can have a pulled by his primary care provider, recommended follow-up with urology in 2-3 weeks. After Isaac placement, 1400 mL of urine drained. Patient felt significantly better and his abdominal discomfort subsided. Vital Signs Vital signs: Initial Vital Signs Temperature 97.3 F L 03/11/24 10:32 Temperature Source Temporal Artery Scan 03/11/24 10:32 Pulse Rate 91 03/11/24 10:32 Respiratory Rate 16 03/11/24 10:32 Blood Pressure 121/67 03/11/24 10:32 Blood Pressure Mean 85 03/11/24 10:32 Blood Pressure Position Sitting 03/11/24 10:32 Pulse Oximetry 93 03/11/24 10:32 Oxygen Delivery Method Room Air 03/11/24 10:32 Vital Signs Temperature 97.3 F L 03/11/24 10:32 Pulse Rate 91 03/11/24 10:32 Respiratory Rate 16 03/11/24 10:32 Blood Pressure 121/67 03/11/24 10:32 Pulse Oximetry 93 03/11/24 10:32 Oxygen Delivery Method Room Air 03/11/24 10:32 Temperature 97.3 F L 03/11/24 10:32 Pulse Rate 89 03/11/24 12:45 Respiratory Rate 16 03/11/24 10:32 Blood Pressure 117/71 03/11/24 12:00 Pulse Oximetry 93 03/11/24 12:45 Oxygen Delivery Method Room Air 03/11/24 10:32 Medications Administered Medications: Generic Name Dose Route Start Last Admin Trade Name Freq PRN Reason Stop Dose Admin Lidocaine HCl 6 ml 03/11/24 13:44 03/11/24 13:46 Lidocaine Hcl 2 % Jelly (Top) Sterile UR 6 ml ONCE PRN Administration Medical Decision Making MDM Narrative Medical decision making narrative: 64-year-old male status post bladder cancer and neobladder reconstruction with urinary retention. Indwelling Isaac placed today. Plan per above. Lab Data Lab results reviewed: Yes I reviewed the patient's lab results Labs: Lab Results 03/11/24 03/11/24 03/11/24 Range/Units 11:00 11:25 11:29 WBC 10.51 (4.50-11.00) K/uL RBC 4.58 (4.30-5.90) m/uL Hgb 12.1 L (13.5-17.5) gm/dL Hct 38.7 (37.0-53.0) % MCV 85 (80-100) fL MCH 26 (26-34) pg MCHC 31 L (32-36) gm/dL RDW Coeff of Pamela 15.4 (11.5-15.5) % Plt Count 330 (140-440) K/uL Neut % (Auto) 78.4 H (42.0-72.0) % Lymph % (Auto) 8.2 L (20-44) % [place] % (Auto) 8.5 (0.0-11.0) % Eos % (Auto) 2.3 (0.0-7.0) % Baso % (Auto) 0.4 (0.0-3.0) % Neut # (Auto) 8.20 H (1.7-7.0) K/uL Lymph # (Auto) 0.90 (0.90-2.90) K/uL [place] # (Auto) 0.90 (0.00-0.90) K/UL Eos # (Auto) 0.24 (0.00-0.50) K/uL Baso # (Auto) 0.04 (0.00-0.30) K/uL Abs Immat Gran (auto) 0.23 (0.00-0.30) K/uL Imm/Tot Granulo (auto) 2.2 % Sodium 134 L (135-149) mmol/L Potassium 5.4 H (3.6-5.1) mmol/L Chloride 99 (96-114) mmol/L Carbon Dioxide 23 (20-32) mmol/L Anion Gap 12 (7-15) mEq/L BUN 51 H (7-30) mg/dL Creatinine 1.4 (0.5-1.5) mg/dL Estimated Creat Clear 50.89 Estimated GFR 56 ml/min Glucose 124 H (60-115) mg/dL Lactate 0.7 (0.5-1.9) mmol/L Calcium 10.1 (8.4-10.6) mg/dL Total Bilirubin 0.4 (0.1-1.5) mg/dL Direct Bilirubin 0.2 (0.0-0.5) mg/dL AST 27 (12-35) U/L ALT 13 (4-50) U/L Alkaline Phosphatase 90 (40-150) U/L Troponin I < 0.01 L (0.01-0.04) ng/mL C-Reactive Protein 2.1 H (0.5-1.0) mg/dL Total Protein 8.5 H (6.0-8.3) g/dL Albumin 4.5 (3.3-5.0) g/dL Lipase 72 (23-300) U/L Urine Color (Yellow) Urine Appearance (Clear) Urine pH (5.0-8.5) Ur Specific [place] (1.000-1.030) Urine Protein (Negative) Urine Glucose (UA) (Negative) Urine Ketones (Negative) Urine Blood (Negative) Urine Nitrite (Negative) Urine Bilirubin (Negative) Urine Urobilinogen (0.2-1.0) Ur Leukocyte Esterase (Negative) Urine RBC (0-2) Urine WBC (0-5) Ur Squamous Epith Cells (None-Few) Urine Bacteria (None) Urine Mucus (None) POC Creatinine 1.6 H (0.6-1.3) mg/dl POC Troponin I 0.00 L (0.01-0.04) ng/ml 03/11/24 Range/Units 13:39 WBC (4.50-11.00) K/uL RBC (4.30-5.90) m/uL Hgb (13.5-17.5) gm/dL Hct (37.0-53.0) % MCV (80-100) fL MCH (26-34) pg MCHC (32-36) gm/dL RDW Coeff of Pamela (11.5-15.5) % Plt Count (140-440) K/uL Neut % (Auto) (42.0-72.0) % Lymph % (Auto) (20-44) % [place] % (Auto) (0.0-11.0) % Eos % (Auto) (0.0-7.0) % Baso % (Auto) (0.0-3.0) % Neut # (Auto) (1.7-7.0) K/uL Lymph # (Auto) (0.90-2.90) K/uL [place] # (Auto) (0.00-0.90) K/UL Eos # (Auto) (0.00-0.50) K/uL Baso # (Auto) (0.00-0.30) K/uL Abs Immat Gran (auto) (0.00-0.30) K/uL Imm/Tot Granulo (auto) % Sodium (135-149) mmol/L Potassium (3.6-5.1) mmol/L Chloride (96-114) mmol/L Carbon Dioxide (20-32) mmol/L Anion Gap (7-15) mEq/L BUN (7-30) mg/dL Creatinine (0.5-1.5) mg/dL Estimated Creat Clear Estimated GFR ml/min Glucose (60-115) mg/dL Lactate (0.5-1.9) mmol/L Calcium (8.4-10.6) mg/dL Total Bilirubin (0.1-1.5) mg/dL Direct Bilirubin (0.0-0.5) mg/dL AST (12-35) U/L ALT (4-50) U/L Alkaline Phosphatase (40-150) U/L Troponin I (0.01-0.04) ng/mL C-Reactive Protein (0.5-1.0) mg/dL Total Protein (6.0-8.3) g/dL Albumin (3.3-5.0) g/dL Lipase (23-300) U/L Urine Color Yellow (Yellow) Urine Appearance Cloudy A (Clear) Urine pH 7.5 (5.0-8.5) Ur Specific [place] 1.015 (1.000-1.030) Urine Protein 1+ A (Negative) Urine Glucose (UA) Negative (Negative) Urine Ketones Negative (Negative) Urine Blood 2+ A (Negative) Urine Nitrite Positive A (Negative) Urine Bilirubin Negative (Negative) Urine Urobilinogen 0.2 (0.2-1.0) Ur Leukocyte Esterase 3+ A (Negative) Urine RBC 25-50 A (0-2) Urine WBC >100 A (0-5) Ur Squamous Epith Cells None (None-Few) Urine Bacteria Many A (None) Urine Mucus Few A (None) POC Creatinine (0.6-1.3) mg/dl POC Troponin I (0.01-0.04) ng/ml Imaging Data CT scan - abdomen: Attestation: I have reviewed the pertinent imaging results. Radiologist's impression: TECHNIQUE: Axial images were obtained from the diaphragm to the pubic symphysis. Reformats were obtained in the coronal and sagittal plane. IV Contrast: 90 cc Isovue 370 Oral Contrast: None COMPARISON: Abdomen and pelvis CT 12/26/2023 FINDINGS: Lower chest: Unremarkable. Liver: Normal in contour with subcentimeter hypodensities which are too small for characterization although similar to the prior exam. Gallbladder and bile ducts: Unremarkable. No stones or inflammation. No biliary dilatation. Spleen: Unremarkable. Normal in size without mass. Pancreas: Unremarkable. No mass or inflammation. Adrenal glands: Unremarkable. No nodules. Kidneys: Symmetric renal enhancement with bilateral urothelial thickening extending to the level of the neobladder. Air noted within the bilateral collecting systems. Vasculature: Atherosclerosis without abdominal aortic aneurysm. GI tract: The stomach is decompressed. Small bowel decompressed with anastomotic line in the right abdomen. Colonic diverticulosis without localized inflammation. 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 Surgical clips along the pelvic sidewall with rim enhancing collection along the left pelvic sidewall measuring 6.6 x 2.2 centimeters. Status post prostatectomy. Bones: Degenerative disc disease lumbar spine. IMPRESSION: 1. Status post ileal neobladder creation with some urothelial thickening and air noted within the neobladder loop and upper collecting systems. Differential diagnosis for air in the collecting system would include infection, recent instrumentation/Isaac catheter or occult fistula to the ileal neobladder loop. 2. Fluid collection along the left pelvic sidewall measuring 6.6 x 2.2 centimeters. Much of the previous inner free fluid has resolved, however this left pelvic sidewall collection has formed with rim enhancement. In the correct clinical setting infected collection is not excluded although the appearance would favor a seroma or lymphocele. 3. Colonic diverticulosis without CT evidence of diverticulitis. ECG Data Attestation: I personally reviewed and interpreted this ECG as follows: Discharge Plan Discharge Clinical Impression: Acute urinary retention Patient Disposition: Home, Self-Care Condition: Stable Additional Instructions: Follow-up with your primary care provider this coming week any day. At that time they can pull out your indwelling catheter and you can continue to self cath as needed. Would recommend you follow-up with Urology in the next 2-3 weeks. Take all antibiotics as prescribed. Prescriptions: New ciprofloxacin HCl 500 mg tablet 500 mg PO BID 7 Days Qty: 14 0RF Follow Up/Referrals: Rosa Maria Alatorre MD [Primary Care Provider] - Stand Alone Forms: [facility] Info Instructions
[2024-03-11 11:32] LABS: Creatinine, Point-of-Care* 1.6 mg/dl (0.6-1.3)
[2024-03-11 11:32] LABS: Lactate* 0.7 mmol/L (0.5-1.9)
[2024-03-11 11:38] LABS: Basophils Absolute Auto 0.04 K/uL (0.00-0.30); Basophils Percent Auto 0.4 % (0.0-3.0); Eosinophils Absolute Auto 0.24 K/uL (0.00-0.50); Eosinophils Percent Auto 2.3 % (0.0-7.0); Hematocrit 38.7 % (37.0-53.0); Hemoglobin* 12.1 gm/dL (13.5-17.5); Immature Granulocytes Abs Auto 0.23 K/uL (0.00-0.30); Immature Granulocytes Pct Auto 2.2 %; Lymphocytes Percent Auto 8.2 % (20-44); Mean Corpuscular HGB Conc 31 gm/dL (32-36); Mean Corpuscular Hemoglobin 26 pg (26-34); Mean Corpuscular Volume 85 fL (80-100); Monocytes Percent Auto 8.5 % (0.0-11.0); Neutrophils Percent Auto 78.4 % (42.0-72.0); Platelet Count* 330 K/uL (140-440); RDW Coefficient of Variation % 15.4 % (11.5-15.5); Red Blood Count 4.58 m/uL (4.30-5.90); White Blood Count* 10.51 K/uL (4.50-11.00)
[2024-03-11 11:42] LABS: Slide Review Reflex No
[2024-03-11 11:49] LABS: Albumin* 4.5 g/dL (3.3-5.0); Chloride* 99 mmol/L (96-114); Sodium* 134 mmol/L (135-149)
[2024-03-11 11:50] LABS: Potassium* 5.4 mmol/L (3.6-5.1)
[2024-03-11 11:52] LABS: Anion Gap 12 mEq/L (7-15); Aspartate Amino Transferase* 27 U/L (12-35); Bilirubin Direct* 0.2 mg/dL (0.0-0.5); Bilirubin Total* 0.4 mg/dL (0.1-1.5); Blood Urea Nitrogen* 51 mg/dL (7-30); Carbon Dioxide* 23 mmol/L (20-32); Creatinine* 1.4 mg/dL (0.5-1.5); Est. Creatinine Clearance* 50.89; Estimated Glomerular Filt Rate 56 ml/min; Total Protein* 8.5 g/dL (6.0-8.3)
[2024-03-11 11:53] LABS: Alanine Aminotransferase* 13 U/L (4-50); Alkaline Phosphatase* 90 U/L (40-150); Calcium* 10.1 mg/dL (8.4-10.6); Glucose* 124 mg/dL (60-115); Lipase* 72 U/L (23-300)
[2024-03-11 11:55] LABS: C Reactive Protein* 2.1 mg/dL (0.5-1.0)
--- OUTSIDE RECORDS SUMMARY | 2024-03-11 12:01 | XMS_ITS | Clinical Summary ---
Author Organization [facility] Address [address] [place] [id number] Care Team Providers Care Tour Production Supervisor Name Role Phone Alvaro Clark MD Unavailable Bhavin Gardner Primary Care Provider [phone] Ky Torres MD Unavailable [phone] Allergies Active Allergy Reactions Criticality Noted Date Comments Penicillins Nausea and Vomiting Medium 06/18/2023 Medications Medication Sig Dispensed Refills Start Date End Date Status acetaminophen-caffe ine (EXCEDRIN TENSION HEADACHE) 500-65 MG TABS Take 2 tablets by mouth every 6 hours as needed for mild pain (PRN HEADACHE) Active diphenhydrAMINE HCl (BENADRYL ALLERGY PO) Take 1 tablet by mouth as needed Active acetaminophen (TYLENOL) 325 MG tabletIndications:P ostoperative state,Post-op pain Take 2 tablets (650 mg) by mouth every 4 hours as needed for other (For optimal non-opioid multimodal pain management to improve pain control.) 50 tablet 12/25/2023 Active gabapentin (NEURONTIN) 100 MG capsuleIndications: Postoperative state,Post-op pain Take 1 capsule (100 mg) by mouth 3 times daily as needed for other (post op pain) 14 capsule 12/25/2023 Active methocarbamol (ROBAXIN) 750 MG tabletIndications:P ostoperative state,Post-op pain Take 1 tablet (750 mg) by mouth every 6 hours as needed for muscle spasms 14 tablet 12/25/2023 Active polyethylene glycol (MIRALAX) 17 GM/Dose powderIndications:P ostoperative state Take 17 g by mouth daily 510 g 12/25/2023 Active senna-docusate (SENOKOT-S/PERICOLA CE) 8.6-50 MG tabletIndications:P ostoperative state Take 1 tablet by mouth 2 times daily 40 tablet 12/25/2023 Active Active Problems Problem Noted Date Diagnosed Date Iron deficiency anemia due to chronic blood loss 02/10/2024 Small bowel obstruction 12/27/2023 Bladder cancer 12/22/2023 Cancer Staging:Pathologic stage from 01/15/2024:Stage IIIA(ypT4a, pN0, cM0) - Signed by Ky Torres MD on 01/18/2024 Urothelial cancer 09/06/2023 Lesion of bladder 07/10/2023 Encounters Date Type Department Care Team Description 02/11/2024 11:00 AM CDT Infusion Therapy Visit [facility] [address] [place] [address] Ky Torres MD Malignant neoplasm of anterior wall of urinary bladder (H) (Primary Dx); Iron deficiency anemia due to chronic blood loss 02/10/2024 10:15 AM CDT Lab [facility] [place] [address] [place] [phone] Dylan Guerin PA Malignant neoplasm of anterior wall of urinary bladder (H) (Primary Dx) 02/10/2024 10:00 AM CDT Oncology Visit [place] [address] [place] [address] Dylan Guerin PA 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); Iron deficiency anemia due to chronic blood loss 02/10/2024 Orders Only [place] [address] [place] [address] Charlie Almonte RN Prostate cancer (H) (Primary Dx); Hypothyroidism due to medication 02/10/2024 Travel 02/05/2024 Telephone [facility] [address] 4th Floor [place] [phone] Alvaro Clark MD Call Back 02/05/[address] [facility] [place] [address] Ky Torres MD Symptoms 02/04/2024 Orders Only PHARMACY [address] [place] [phone] Anderson Tadeoia, [facility] 01/25/2024 Telephone [facility] [address] 4th [place] [phone] Alvaro Clark MD 01/22/[address] [facility] [place] [address] Alvaro Clark MD Symptoms 01/18/[address] [facility] [place] [address] Alvaro Clark MD Patient/info Update 01/15/2024 12:40 PM CDT Lab [facility] [address] [place] [address] Urothelial cancer (H) 01/15/2024 11:30 AM CDT Oncology Visit [address] [facility] [place] [address] Ky Torres MD Urothelial cancer (H) (Primary Dx); Prostate cancer (H); Malignant neoplasm of anterior wall of urinary bladder (H) 01/15/2024 10:30 AM CDT Office Visit [place] [address] [facility] [place] [address] Alvaro Clark MD Urothelial cancer (H) (Primary Dx); Urinary retention 01/15/[address] [facility] [place] [address] Alvaro Clark MD Symptoms 01/15/2024 Travel 01/15/2024 Orders Only [address] [facility] [place] [address] Charlie Almonte, CARLOS Urothelial cancer (H) (Primary Dx); 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) 01/13/2024 1:02 PM CDT - 01/13/2024 11:59 PM CDT Hospital Encounter [facility] [address] [place] [address] Yessica Mcleod PA-C Urothelial cancer (H); 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) Discharge Disposition: Home or Self Care 01/13/2024 12:45 PM CDT Lab [facility] [address] [place] [address] Alvaro Clark MD Urothelial cancer (H) 01/13/2024 Travel 01/07/[address] [facility] [place] [address] Alvaro Clark MD Medication Request 01/02/2024 Team Conference [facility] [address] 4th [place] [address] Guillaume Brenner MD 01/01/2024 9:45 AM CDT Office Visit [address] [facility] [place] [address] Alvaro Clark MD Urothelial cancer (H) (Primary Dx) 01/01/2024 Travel 12/30/2023 10:12 PM CDT - 12/31/2023 1:28 AM CDT Emergency [facility] Emergency Dept [address] [place] [address] Kandi Morales MD Problem with Isaac catheter, initial encounter (H) Discharge Disposition: Home or Self Care 12/30/2023 Travel 12/27/2023 4:52 AM CDT - 12/29/2023 1:34 PM CDT Hospital Encounter [facility] [address] [facility] [place] [address] Fernando Romero MD Discharge Disposition: Home or Self Care 12/26/2023 MyC Medical Advice [facility] [address] [facility] [place] [address] Alvaro Clark MD Urothelial cancer (H) (Primary Dx) 12/22/2023 8:00 AM CDT - 12/22/2023 1:00 PM CDT Surgery [facility] [address] [place] [phone] Alvaro Clark MD CYSTECTOMY, pelvic node dissection WITH ILEAL NEOBLADDER CREATION 12/22/2023 7:48 AM CDT Anesthesia Event [facility] [address] [place] [phone] Alf Olson MD Johnson, Ashley Keryn, CARLOS DOCUMENT PROCESSOR 12/22/2023 5:50 AM CDT - 12/25/2023 3:50 PM CDT Hospital Encounter [facility] [address] [place] [address] [place] [address] Alvaro Clark MD Postoperative state (Primary Dx); Bladder cancer (H); Urothelial cancer (H); Lesion of bladder; Post-op pain Discharge Disposition: Home or Self Care 12/11/2023 9:00 AM CDT Lab [facility] [address] [phone] Preop examination; 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 (H) 12/11/2023 8:00 AM CDT Office Visit [facility] [address] [place] [phone] Rizwana Tejeda APRN DOCUMENT PROCESSOR Preop examination (Primary Dx); 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 (H) 12/11/2023 Travel 12/11/2023 PRE VISIT [facility] [address] [place] [phone] Rizwana Tejeda APRN DOCUMENT PROCESSOR from Last 3 Months Family History Medical [...] Sign Reading Time Taken Comments Blood Pressure 98/62 02/11/2024 11:31 AM CDT Pulse 83 02/11/2024 11:31 AM CDT Temperature 36.1 ??C (96.9 ??F) 02/11/2024 11:31 AM C DT Respiratory Rate 16 02/11/2024 11:31 AM CDT Oxygen Saturation 96% 02/11/2024 11:31 AM CDT Inhaled Oxygen Concentration - - Weight 77.8 kg (171 lb 9.6 oz) 02/11/2024 11:31 AM CDT Height 172 cm (5' 7.72) 02/11/2024 11:31 AM CDT Body Mass Index 26.31 02/11/2024 11:31 AM CDT Plan of Treatment Upcoming Encounters Date Type Department Care Team (Late st Contact Info) Description 04/08/2024 1:00 PM FORKLIFT TECHNICIAN Lab [facility] [place] [address] [place] [phone] Yessica Mcleod PA-C [address] [place] [address] 04/08/2024 1:30 PM FORKLIFT TECHNICIAN Oncology Visit [address] [place] [address] Dylan Guerin PA [address] [place], [place] [phone] 04/08/2024 1:30 PM FORKLIFT TECHNICIAN Infusion Therapy Visit [address] [place] [phone] Ky Torres MD [address] [address] 05/02/2024 10:30 AM FORKLIFT TECHNICIAN Lab [place] [address] [place] [phone] Ky Torres MD [address] [address] 05/02/2024 11:20 AM FORKLIFT TECHNICIAN Appointment [facility] [address] [place] [phone] Ky Torres MD 420 [facility] [address] [place] [address] 05/06/2024 9:30 AM FORKLIFT TECHNICIAN Lab [place] [address] [place] [address] Ky Torres MD [address] [address] 05/06/2024 10:00 AM FORKLIFT TECHNICIAN Oncology Visit [address] [place] [address] Ky Torres MD [address] [address] 05/06/2024 10:30 AM FORKLIFT TECHNICIAN Infusion Therapy Visit [address] [place] [address] Ky Torres MD [address] [address] Health Maintenance Due Date Last Done Comments ADVANCE CARE PLANNING 1959 ANNUAL REVIEW OF HM ORDERS 1959 CT COLONOGRAPHY 1959 FIT 1959 FLEX SIG 1959 sDNA (Cologuard) 1959 COVID-19 Vaccine (#1) 02/14/1964 Pneumococcal Vaccine: 65+ Years (1 of 2 - PCV) 1965 COLONOSCOPY 1969 COLORECTAL CANCER SCREENING 1969 HIV SCREENING 1974 HEPATITIS C SCREENING 1977 ZOSTER IMMUNIZATION (1 of 2) 1978 LIPID 1999 RSV VACCINE (1 - Risk 60-74 years 1-dose series) 2019 INFLUENZA VACCINE (#1) 2024 FALL RISK ASSESSMENT 02/14/2024 MEDICARE ANNUAL WELLNESS VISIT 02/14/2024 LUNG CANCER SCREENING 01/12/2025 01/13/2024 , 11/25/2023, 10/21/2023, Additional history exists GLUCOSE 02/09/2027 02/10/2024, 12/30, 12/29/2023, Additional history exists DTAP/TDAP/TD IMMUNIZATION (4 - Td or Tdap) 02/28/2029 02/28/2019, 02/07/2013, 11/14/2006 PHQ-2 (once per calendar year) Completed 12/11/2023 AORTIC ANEURYSM SCREENING (SYSTEM ASSIGNED) Completed 01/13/2024, 11/25/2023 HPV IMMUNIZATION Aged Out No longer e ligible based on patient's age to complete this topic MENINGITIS IMMUNIZATION Aged Out No l onger eligible based on patient's age to complete this topic RSV MONOCLONAL ANTIBODY Aged Out No l onger eligible based on patient's age to complete this topic Medical Devices Implanted Type Area Polarity Tester Device Identifier Shelf Expiration Date Model / Serial / Lot Port-08/28/2023 Implanted:Qty: 1 on 08/28/2023 by Pipe Hernandez MD Port Right: Chest Wall [id number] 07/29/2026 / / [id number] Stent Ureteral Manager [employer] Diversion 07fr [id number] - [id number] Implanted:Qty: 1 on 12/22/2023 by Alvaro Clark MD at [facility] Stent N/A: Abdomen [employer] [id number] 11/19/2026 [id number] / / [id number] Procedures Procedure Name Priority Date/Time Associated Diagnosis Comments CBC WITH PLATELETS & DIFFERENTIAL Routine 02/10/2024 10:23 AM CDT Urothelial cancer (H) Prostate cancer (H) VITAMIN B12 Add-On 02/10/2024 10:23 AM CDT Anemia in neoplastic disease FERRITIN Add-On 02/10/2024 10:23 AM CDT Anemia in neoplastic disease IRON AND IRON BINDING CAPACITY Add-On 02/10/2024 10:23 AM CDT Anemia in neoplastic disease CBC WITH PLATELETS AND DIFFERENTIAL Routine 02/10/2024 10:23 AM CDT Urothelial cancer (H) Prostate cancer (H) TSH WITH FREE T4 REFLEX Routine 02/10/2024 10:23 AM CDT Hypothyroidism due to medication LACTATE DEHYDROGENASE Routine 02/10/2024 10:23 AM CDT Prostate cancer (H) PSA TUMOR MARKER Routine 02/10/2024 10:2 3 AM CDT Urothelial cancer (H) Prostate cancer (H) TESTOSTERONE TOTAL Routine 02/10/2024 10 :23 AM CDT Urothelial cancer (H) Prostate cancer (H) COMPREHENSIVE METABOLIC PANEL Routine 02/10/2024 10:23 AM CDT Urothelial cancer (H) Prostate cancer (H) URINE CULTURE Routine 01/15/2024 1:11 PM CDT [...] of bladder with invasion of muscle (H) from Last 3 Months Results * (ABNORMAL) CBC with platelets and differential (02/10/2024 10:23 AM CDT) Only the most recent of3 resultswithin the time period is included. WBC Count 7.6 4.0 - 11.0 10e3/uL 02/10/2024 10:41 AM CDT [facility] RBC Count 3.25(L) 4.40 - 5.90 10e6/uL 02/10/2024 10:41 AM CDT [facility] Hemoglobin 8.8(L) 13.3 - 17.7 g/dL 02/10/2024 10:41 AM CDT [facility] Hematocrit 28.4(L) 40.0 - 53.0 % 02/10/2024 10:41 AM CDT [facility] MCV 87 78 - 100 fL 02/10/2024 10:41 AM CDT [facility] MCH 27.1 26.5 - 33.0 pg 02/10/2024 10:41 AM CDT [facility] MCHC 31.0(L) 31.5 - 36.5 g/dL 02/10/2024 10:41 AM CDT [facility] RDW 14.6 10.0 - 15.0 % 02/10/2024 10:41 AM CDT [facility] Platelet Count 309 150 - 450 10e3/uL 02/10/2024 10:41 AM CDT [facility] % Neutrophils 66 % 02/10/2024 10:41 AM CDT [facility] % Lymphocytes 12 % 02/10/2024 10:41 AM CDT [facility] % Monocytes 11 % 02/10/2024 10:41 AM CDT [facility] % Eosinophils 6 % 02/10/2024 10:41 AM CDT [facility] % Basophils 1 % 02/10/2024 10:41 AM CDT [facility] % Immature Granulocytes 4 % 02/10/2024 10:41 AM CDT [facility] NRBCs per 100 WBC 0 <1 /100 024 10:41 AM CDT [facility] Absolute Neutrophils 5.0 1.6 - 8.3 10e3/uL 02/10/2024 10:41 AM CDT [facility] Absolute Lymphocytes 0.9 0.8 - 5.3 10e3/uL 02/10/2024 10:41 AM CDT [facility] Absolute Monocytes 0.8 0.0 - 1.3 10e3/uL 02/10/2024 10:41 AM CDT [facility] Absolute Eosinophils 0.5 0.0 - 0.7 10e3/uL 02/10/2024 10:41 AM CDT [facility] Absolute Basophils 0.1 0.0 - 0.2 10e3/uL 02/10/2024 10:41 AM CDT [facility] Absolute Immature Granulocytes 0.3 <=0.4 10e3/uL 02/10/2024 10:41 AM CDT [facility] Absolute NRBCs 0.0 10e3/uL 02/10/2024 10:41 AM CDT [facility] Blood (Portacath) IVAD (Port) / Unknown 02/10/2024 10:23 AM CDT 02/10/2024 10:35 AM CDT Ky Torres MD LAB - BLOOD ORDERA BLES LABORATORY [facility] Acute Care Lab [address] Lab (1st floor, no room number) [place] [phone] [place] [address] * Lactate Dehydrogenase (02/10/2024 10:23 AM CDT) Lactate Dehydrogenase 163 0 - 250 U/L 02/10/2024 10:59 AM CDT [facility] Blood (Portacath) IVAD (Port) / Unknown 02/10/2024 10:23 AM CDT 02/10/2024 10:35 AM CDT Ky Torres MD LAB - BLOOD ORDERA BLES [facility] Care Lab [address] Lab (1st floor, no room number) [place] [phone] [place] [address] * TSH with free T4 reflex (02/10/2024 10:23 AM CDT) TSH 2.32 0.30 - 4.20 uIU/mL 02/10/2024 11:05 AM CDT LABORATORY Blood (Portacath) IVAD (Port) / Unknown 02/10/2024 10:23 AM CDT 02/10/2024 10:35 AM CDT Ky Torres MD LAB - BLOOD ORDERA BLES LABORATORY [facility] Acute Care Lab [address] Lab (1st floor, no room number) [place] [address] * (ABNORMAL) Testosterone total (02/10/2024 10:23 AM CDT) Testosterone Total 69(L) 240 - 950 ng/dL 02/14/2024 7:01 AM CDT [facility] Blood (Portacath) IVAD (Port) / Unknown 02/10/2024 10:23 AM CDT 02/10/2024 10:35 AM CDT Ky Torres MD LAB - BLOOD ORDERA BLES [facility] [address] [facility], Room [address] [address] * PSA tumor marker (02/10/2024 10:23 AM CDT) PSA Tumor Marker 0.02 0.00 - 4.50 ng/mL 02/10/2024 6:36 PM CDT [facility] Blood (Portacath) IVAD (Port) / Unknown 02/10/2024 10:23 AM CDT 02/10/2024 10:35 AM CDT Narrative [facility] - 02/10/2024 6:36 PM CDT This result is obtained using the Margo Elecsys total PSA method on the hadley e801 immunoassay analyzer. Results obtained with different assay methods or kits cannot be used interchangeably. Ky Torres MD LAB - BLOOD ORDERA BLES U LABORATORY [facility] [place] Core Lab [address] [facility], Room [address] [place] [address] * (ABNORMAL) Iron & Iron Binding Capacity (02/10/2024 10:23 AM CDT) Iron 16(L) 61 - 157 ug/dL 02/10/2024 11:21 AM CDT [facility] Iron Binding Capacity 238(L) 240 - 430 ug/dL 02/10/2024 11:21 AM CDT [facility] Iron Sat Index 7(L) 15 - 46 % 02/10/2024 11:21 AM CDT LABORATORY Blood (Portacath) IVAD (Port) / Unknown 02/10/2024 10:23 AM CDT 02/10/2024 10:35 AM CDT Dylan IBARRA LAB - BLOOD ORDERA BLES LABORATORY [facility] Care Lab [address] Lab (1st floor, no room number) [place] [address] * Ferritin (02/10/2024 10:23 AM CDT) Ferritin 186 31 - 409 ng/mL 02/10/2024 3:05 PM CDT LABORATORY Blood (Portacath) IVAD (Port) / Unknown 02/10/2024 10:23 AM CDT 02/10/2024 10:35 AM CDT Dylan IBARRA LAB - BLOOD ORDERA BLES U LABORATORY [facility] [place] [facility] [address] [facility], Room [address] [place] [address], [facility] * (ABNORMAL) Comprehensive metabolic panel (02/10/2024 10:23 AM CDT) Only the most recent of2 resultswithin the time period is included. Sodium 136 135 - 145 mmol/L 02/10/2024 10:59 AM CDT [facility] Potassium 4.4 3.4 - 5.3 mmol/L 02/10/2024 10:59 AM CDT [facility] Carbon Dioxide (CO2) 26 22 - 29 mmol/L 02/10/2024 10:59 AM CDT [facility] Anion Gap 11 7 - 15 mmol/L 02/10/2024 10:59 AM CDT [facility] Urea Nitrogen 19.8 8.0 - 23.0 mg/dL 02/10/2024 10:59 AM CDT [facility] Creatinine 0.89 0.67 - 1.17 mg/dL 02/10/2024 10:59 AM CDT [facility] GFR Estimate >90 >60 mL/min/1.7 3m2 02/10/2024 10:59 AM CDT [facility] Comment:eGFR calculated 2020 CKD-EPI equation. Calcium 8.7(L) 8.8 - 10.4 mg/dL 02/10/2024 10:59 AM CDT [facility] Comment:Reference intervals for this test were updated on 12/15/2023 to reflect our healthy population more accurately. There may be differences in the flagging of prior results with similar values performed with this method. Those prior results can be interpreted in the context of the updated reference intervals. Chloride 99 98 - 107 mmol/L 02/10/2024 10:59 AM CDT [facility] Glucose 97 70 - 99 mg/dL 02/10/2024 10:59 AM CDT [facility] Alkaline Phosphatase 76 40 - 150 U/L 02/10/2024 10:59 AM CDT [facility] AST 25 0 - 45 U/L 02/10/2024 10:59 AM CDT [facility] ALT 18 0 - 70 U/L 02/10/2024 10:59 AM CDT [facility] Protein Total 6.8 6.4 - 8.3 g/dL 02/10/2024 10:59 AM CDT [facility] Albumin 3.3(L) 3.5 - 5.2 g/dL 02/10/2024 10:59 AM CDT [facility] Bilirubin Total <0.2 <=1.2 mg/dL 02/10/2024 10:59 AM CDT LABORATORY Blood (Portacath) IVAD (Port) / Unknown 02/10/2024 10:23 AM CDT 02/10/2024 10:35 AM CDT Ky Torres MD LAB - BLOOD ORDERA BLES RH LABORATORY [facility] Lab [address] Lab (1st floor, no room number) [place] [address] * Vitamin B12 (02/10/2024 10:23 AM CDT) Vitamin B12 649 232 - 1,245 pg/mL 02/10/2024 3:01 PM CDT [facility] Blood (Portacath) IVAD (Port) / Unknown 02/10/2024 10:23 AM CDT 02/10/2024 10:35 AM CDT Dylan IBARRA LAB - BLOOD ORDERA BLES UU LABORATORY [facility] [place] [facility] [address] [place] [address], [address] [place] [address] * (ABNORMAL) Urine Culture (01/15/2024 1:11 PM [...] - MICRO GENERAL ORDERABLES UU IDD LABORATORY [facility] Inf. Diseases Diag. Lab [address] [facility], [address] [place] [address] * CT Chest/Abdomen/Pelvis w Contrast (01/13/2024 1:26 PM CDT) Anatomical Region Laterality Modality Abdomen/Pelvis, Chest, SUBRA D CT BODY, UMP CT CHEST, P CT ABDOMEN PELVIS, RAD CT Computed Tomography [...] Haynes PA-C IM CT ORDERABLES * (ABNORMAL) Basic metabolic panel (12/29/2023 7:28 [...] LAB - BLOOD ORDERABL ES UR LABORATORY [facility] Acute Care Lab [address] [facility], [address] [place] [address], [facility] * (ABNORMAL) CBC [...] LAB - BLOOD ORDERABL ES UR LABORATORY [facility] Lab [address] [place] [address], [address] [place] [address] * Phosphorus (12/28/2023 11:53 AM CDT) Only the most recent of2 resultswithin the time period is included. Phosphorus 2.8 2.5 - 4.5 mg/dL 12/28/2023 1:37 PM CDT UR LABORATORY Blood STRUCTURE OF RIGHT UPPER LIMB / Unknown Venipuncture / Unknown 12/28/2023 11:53 AM CDT 12/28/2023 12:53 PM CDT Krystian Manriquez MD LAB - BLOOD ORDERABL ES UR LABORATORY [facility] [address] [place] [address], [address] [address] * Magnesium (12/28/2023 11:53 AM CDT) Only the most recent of2 resultswithin the time period is included. Magnesium 2.0 1.7 - 2.3 mg/dL 12/28/2023 1:37 PM CDT UR LABORATORY Blood STRUCTURE OF RIGHT UPPER LIMB / Unknown Venipuncture / Unknown 12/28/2023 11:53 AM CDT 12/28/2023 12:53 PM CDT Krystian Manriquez MD LAB - BLOOD ORDERABL ES Performing Organization Address City/[facility]/ZIP Co de Phone Number UR LABORATORY [facility] [address] [place] [address], [address] [address] * Electrolyte panel (12/27/2023 7:37 AM CDT) [...] LAB - BLOOD ORDERABL ES UR LABORATORY [facility] [address] [place] [address], Room [address] [place] [address] * Potassium (External Result) (12/26/2023 11:00 PM CDT) Potassium (External) 4.1 3.6 - 5.1 mmol/L [facility] Blood 12/26/2023 11:0 0 PM CDT [facility] - 12/26/2023 11:00 PM CDT [facility] ED NOTES Provider Outside LAB - HIM EXTERNAL R ESULT Performing Organization Address [facility]/ZIP Co de Phone Number [address] [address], [facility] [phone] * Glucose (External Result) (12/26/2023 11:00 PM CDT) Glucose (External) 112 60 - 115 mg/dL [facility] Blood 12/26/2023 11:0 0 PM CDT [facility] - 12/26/2023 11:00 PM CDT [facility] ED NOTES Provider Outside LAB - HIM EXTERNAL R ESULT Performing Organization Address [facility] Co de Phone Number [address] [address], [facility] [phone] * Creatinine (External Result) (12/26/2023 11:00 PM CDT) Creatinine (External) 0.9 0.5 - 1.5 mg/dL [facility] GFR Estimated (External) 95 mL/min [facility] Blood 12/26/2023 11:0 0 PM CDT [facility] - 12/26/2023 11:00 PM CDT [facility] ED NOTES Provider Outside LAB - HIM EXTERNAL R ESULT Performing Organization Address City/[facility]/ZIP Co de Phone Number [address] [address], [facility] [phone] * AST (External Result) (12/26/2023 11:00 PM CDT) AST (External) 34 12 - 35 U/L [facility] Blood 12/26/2023 11:0 0 PM CDT [facility] - 12/26/2023 11:00 PM CDT [facility] ED NOTES Provider Outside LAB - [facility] EXTERNAL R ESULT [address] [phone] * ALT (External Result) (12/26/2023 11:00 PM CDT) ALT (External) 23 4 - 50 U/L [facility] Blood 12/26/2023 11:0 0 PM CDT [facility] - 12/26/2023 11:00 PM CDT [facility] ED NOTES Provider Outside LAB - [facility] [place] [address], [facility] [phone] * Creatinine fluid (12/25/2023 10:28 AM CDT) [...] BODY FLUIDS OR DERABLES Performing Organization Address [facility] de Phone Number [facility] [address] [facility], [address] [place] [id number] * (ABNORMAL) Glucose by meter (12/23/2023 6:42 AM CDT) Only the most recent of2 resultswithin the time period is included. GLUCOSE BY METER POCT 118(H) 70 - 99 mg/dL 12/23/2023 6:49 AM CDT [facility]AT[facility] POC Blood, Capillary BLOOD SPECIMEN / Unknown 12/23/2023 6:42 AM CDT 12/23/2023 6:49 AM CDT Alvaro Clark MD LAB - BEAKER POCT Performing Organization Address [facility] de Phone Number LABORATORY POC [facility] [address] [facility], [address] [place] [phone] * Platelet count (12/22/2023 9:55 PM CDT) Platelet Count 179 150 - 450 10e3/uL 12/22/2023 10:12 PM CDT [facility] Blood STRUCTURE OF RIGHT HAND / Unknown IVAD (Port) / Unknown 12/22/2023 9:55 PM CDT 12/22/2023 10:04 PM CDT Alberto Tejeda MD LAB - BLOOD ORDERABL ES Performing Organization Address [facility] Co de Phone Number [facility] [address] [facility], [address] [phone] * XR Abdomen Port 1 View (12/22/2023 [...] Case Report Surgical Pathology Report ? Case: [id number] ? Authorizing Provider: ??Alvaro Clark MD ?Collected: ? 12/22/2023 08:54 AM ? Ordering Location: ? [facility] MAIN OR ? Received: ?12/22/2023 09:00 AM ? Pathologist: ? Marlin Tenorio, MD ? Intraop: ? Tracie Gonzalez MD [...] Please see comment - Incidental prostatic adenocarcinoma, Solgohachia score 7 (3+4) - Margins are negative [...] ureteric tissue identified) 4 6:31 PM [facility] Comment:This is an appended report. These results have been appended to a previously preliminary verified report. Comment Immunohistochemistry analysis of CK5 and CHARLIE-3 was performed and supports the above diagnosis of invasion urothelial carcinoma. 6:31 PM [facility] Comment:This is an appended report. [...] PROSTATE GLAND: RADICAL PROSTATECTOMY - All Specimens Edition - Protocol posted: 02/18/2023 SPECIMEN ?? Procedure: ?Radical cystoprostatectomy TUMOR ?? Histologic Type: ?Acinar adenocarcinoma, conventional (usual) ?? Histologic Grade: ? Grade: ?Grade group 2 (Solgohachia Score 3 + 4 = 7) ?? [...] 9:15 AM Intra op performed at: LABORATORY, [facility], [address] [place] [address], [address], [facility] [phone] Intra-op Dx verbally delivered to Dr. Amber Tanner(2). Ureter, Right, Right distal ureteral margin: BFS1: Negative for malignancy John Carey MD on 12/22/2023 at 9:27 AM Intra op performed at:U LABORATORY, [facility], [address] [facility], [facility], [address] [address] Intra-op Dx verbally delivered to Dr. Amber Segura(3). Urethra, urethral margin: CFS1: - No evidence of malignancy Tracie Gonzalez MD on 12/22/2023 at 10:41 AM Intra op performed at:U LABORATORY, [facility], [address] [facility], [facility], [address] [address] Intra-op Dx verbally delivered to Dr. Clark 6:31 PM CDT LABORATORY Gross Description A(1). Ureter, Left, Left [...] reveal no mass deposits or lymph nodes. Metalizing Machine Operator Automatic sections are submitted. Gross photography is taken. D1-urethral margin, en face D2-right ureter margin, en face D3-left ureter margin, en face D4-lesion to right ureteral orifice D5-lesion to left ureteral orifice R1-E56-fwhwyu from dome to trigone W44-gmwkpv to seminal vesicles L07-dzpnq lateral wall V61-khfsxtif bladder wall E98-pepx B65-Y42-rqsxr prostatic apex B69-V61-rtct prostatic apex D23-mid prostate, right anterior D24-mid prostate, left posterior D25-mid prostate, left anterior D26-mid prostate, left posterior A49-iubq prostate, right anterior F97-cgfn prostate, right posterior W85-uska prostate, mid C97-zjph prostate, left anterior B59-loja prostate, left posterior E(5). Lymph Node(s), Pelvis, [...] possible lymph nodes E2-intact possible lymph node P0-J8-wivnqqrn possible lymph node K1-Y9-sthzeofp possible lymph node F6-J94-udgjrgcf sectioned possible lymph node F(6). Lymph Node(s), [...] possible lymph nodes F2-bisected possible lymph node P3-Q1-wizsfwna sectioned possible lymph node G(7). Ureter, Left, [...] submitted in cassette H1. 4 6:31 PM [facility] Comment:This is an appended report. These results have been appended to a previously preliminary verified report. Microscopic Description Microscopic description is performed 4 6:31 PM [facility] Comment:This is an appended report. These results have been appended to a previously preliminary verified report. MCRS Yes(A) N/A 4 6:31 PM [facility] Comment:This is an appended report. These results have been appended to a previously preliminary verified report. Performing Labs The technical component of this testing was completed at [facility]. Stain controls for all stains resulted within this report have been reviewed and show appropriate reactivity. 4 6:31 PM CDT LABORATORY Comment:This is an appended report. These results have been appended to a previously preliminary verified report. Case Images 4 6:31 PM [facility] Tissue STRUCTURE OF LEFT URETER [...] PM CDT Alvaro [place] - [facility] Specialty Lab [address] [facility], [address] [phone] [place] [address] LABORATORY [facility] [address] [facility], [address] [phone], [facility] * ANE AIRWAY ETT PERFORMABLE (12/22/2023 8:02 AM CDT) Narrative Nessa Pereira APRN MECHANICAL ASSEMBLER - 12/22/2023 8:02 AM CDT Nessa Pereira APRN MECHANICAL ASSEMBLER ? 12/22/2023 ??8:22 AM Airway ? Patient location during procedure: OR ? Procedure Start/Stop Times: 12/22/2023 8:02 AM Staff - ? MECHANICAL ASSEMBLER: Nessa Pereira APRN MECHANICAL ASSEMBLER ? Performed By: CRNAIndications and Patient Condition [...] Time: 12/22/2023 8:02 AM Alf Olson MD [place] ANESTHESIA * Adult Type and Screen (12/22/2023 6:47 AM CDT) Only the most recent of2 resultswithin the time period is included. ABO/RH(D) A NEG 12/22/2023 6:16 AM CDT [facility] B[facility] B[facility] Antibody Screen Negative Negative 12/22/2023 6:16 AM CDT U BLOOD BANK SPECIMEN EXPIRATION DATE [id number] 12/22/2023 6:16 AM CDT [facility] Blood STRUCTURE OF RIGHT HAND / Unknown Venipuncture / Unknown 12/22/2023 6:47 AM CDT 12/22/2023 6:56 AM CDT Alvaro Clark MD LAB - BLOOD BANK LICHA T ORDER [facility] [address] [place] [address], [facility] from Last 3 Months Advance Directives For more information, please contact: [phone] * Full Code (Latest Code Status on [...] saw temple/ legal decision maker Care Teams Tour Production Supervisor Relationship Specialty Start Date End Date Votel, Bhavin Ford [address] [place] [address] PCP - General Family Medicine 12/28/23 Alvaro Clark MD [address] [place] [id number] Assigned Surgical Provider 07/24/23 Ky Torres MD [address] [place] [address] [address] [place] [address] Assigned Cancer Care Provider 01/22/24
--- OUTSIDE RECORDS SUMMARY | 2024-03-11 12:01 | XMS_ITS | Referral Summary ---
Author Organization [facility] Address [address] [place] [address] Care Team Providers Care Special Officer Automat Name Role Phone Alvaro Clark MD Unavailable Bhavin Gardner Primary Care Provider [phone] Ky Torres MD Unavailable [phone] Encounters Date Type Department Care Team Description 02/11/2024 11:00 AM CDT Infusion Therapy Visit [address] [place] [address] Ky Torres MD Malignant neoplasm of anterior wall of urinary bladder (H) (Primary Dx); Iron deficiency anemia due to chronic blood loss 02/10/2024 10:15 AM CDT Lab [place] [address] [place] [phone] Dylan Guerin PA Malignant neoplasm of anterior wall of urinary bladder (H) (Primary Dx) 02/10/2024 Orders Only [place] [address] [place] [phone] Charlie Almonte RN Prostate cancer (H) (Primary Dx); Hypothyroidism due to medication 02/10/2024 Travel 02/10/2024 10:00 AM CDT Oncology Visit [place] [address] [place] [address] Dylan Guerin PA 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); Iron deficiency anemia due to chronic blood loss 02/05/2024 Telephone [facility] [address] [place] [address] Alvaro Clark MD Call Back 02/05/[address] [facility] [place] [address] Ky Torres MD Symptoms 02/04/2024 Orders Only PHARMACY [address] [place] [phone] Sigrid Tadeo [facility] 01/25/2024 Telephone [facility] [address] [phone] Alvaro Clark MD 01/22/[address] [facility] [place] [address] Alvaro Clark MD Symptoms 01/18/[address] [facility] [place] [address] Alvaro Clark MD Patient/info Update 01/15/[address] [facility] [place] [address] Alvaro Clark MD Symptoms 01/15/2024 12:40 PM CDT Lab [facility] [address] [place] [address] Urothelial cancer (H) 01/15/2024 Travel 01/15/2024 Orders Only [address] [facility] [place] [address] Charlie Almonte RN Urothelial cancer (H) (Primary Dx); 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) 01/15/2024 11:30 AM CDT Oncology Visit [address] [place] [address] Ky Torres MD Urothelial cancer (H) (Primary Dx); Prostate cancer (H); Malignant neoplasm of anterior wall of urinary bladder (H) 01/15/2024 10:30 AM CDT Office Visit [address] [place] [address] Alvaro Clark MD Urothelial cancer (H) (Primary Dx); Urinary retention 01/13/2024 Travel 01/13/2024 1:02 PM CDT - 01/13/2024 11:59 PM CDT Hospital Encounter [facility] [address] [place] [address] Yessica Mcleod, LIDIAC Urothelial cancer (H); 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 [address] [place] [address] Alvaro Clark MD Urothelial cancer (H) 01/07/[address] [facility] [place] [address] Alvaro Clark MD Medication Request 01/02/2024 Team Conference [facility] [address] [place] [address] Guillaume Brenner MD 01/01/2024 Travel 01/01/2024 9:45 AM CDT Office Visit [address] [facility] [place] [address] Alvaro Clark MD Urothelial cancer (H) (Primary Dx) 12/30/2023 10:12 PM CDT - 12/31/2023 1:28 AM CDT Emergency [facility] Emergency Dept [address] [place] [address] Kandi Morales MD Problem with Isaac catheter, initial encounter (H) Discharge Disposition: Home or Self Care 12/30/2023 Travel 12/27/2023 4:52 AM CDT - 12/29/2023 1:34 PM CDT Hospital Encounter [facility] Unit [address] [place] [address] Fernando Romero MD Discharge Disposition: Home or Self Care 12/26/2023 MyC Medical Advice [address] [facility] [place] [address] Alvaro Clark MD Urothelial cancer (H) (Primary Dx) 12/22/2023 5:50 AM CDT - 12/25/2023 3:50 PM CDT Hospital Encounter [facility] Unit [address] [place] [address] [place] [address] Alvaro Clark MD Postoperative state (Primary Dx); Bladder cancer (H); Urothelial cancer (H); Lesion of bladder; Post-op pain Discharge Disposition: Home or Self Care 12/22/2023 8:00 AM CDT - 12/22/2023 1:00 PM CDT Surgery [facility] [address] [place] [address] Alvaro Clark MD CYSTECTOMY, pelvic node dissection WITH ILEAL NEOBLADDER CREATION 12/22/2023 7:48 AM CDT Anesthesia Event [facility] [address] [place] [address] Alf Olson MD Johnson, Ashley Keryn, APRN CNP 12/11/2023 Travel 12/11/2023 9:00 AM CDT Lab [facility] [address] [place] [address] Preop examination; 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 (H) 12/11/2023 PRE VISIT [facility] [address] [place] [address] Rizwana Tejeda APRN CNP 12/11/2023 8:00 AM CDT Office Visit [facility] Assessment [address] [place] [address] Rizwana Tejeda APRN CNP Preop examination (Primary Dx); 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 (H) from Last 3 Months Allergies Active [...] 01/15/2024:Stage IIIA(ypT4a, pN0, cM0) - Signed by MelissaKy magallon MD on 01/18/2024 Urothelial cancer 09/06/2023 Lesion [...] st Contact Info) Description 04/08/2024 1:00 PM [facility] Lab [facility] [address] [facility] 200 [place] [address] Yessica Mcleod PA-C [address] [place], [place] [address] 04/08/2024 1:30 PM WAX PATTERN ASSEMBLER Oncology Visit [address] [place] [phone] Dylan Guerin PA [address] [place] [address] 04/08/2024 1:30 PM WAX PATTERN ASSEMBLER Infusion Therapy Visit [address] [place] [address] Ky Torres MD [address] [address] 05/02/2024 10:30 AM WAX PATTERN ASSEMBLER Lab [address] [place] [address] Ky Torres MD [address] [address] 05/02/2024 11:20 AM WAX PATTERN ASSEMBLER Appointment [facility] Imaging [address] [place] [address] Ky Torres MD [address] [facility] [address] [place], [place] [address] 05/06/2024 9:30 AM WAX PATTERN ASSEMBLER Lab [address] [place] [phone] Ky Torres MD 420 [facility] [address] [place] [address] 05/06/2024 10:00 AM WAX PATTERN ASSEMBLER Oncology Visit [facility] [address] [facility] [place] [address] Ky Torres MD [address] [facility] [address] [place] [address] 05/06/2024 10:30 AM WAX PATTERN ASSEMBLER Infusion Therapy Visit [facility] [address] [place] [address] Ky Torres MD [address] [place] [address] [address] Medical Devices Implanted Type Area Telecommunications Clerk Device Identifier Shelf Expiration Date Model / Serial / Lot Port-08/28/2023 Implanted:Qty: 1 on 08/28/2023 by Pipe Hernandez MD Port Right: Chest Wall [id number] 07/29/2026 / / [id number] Stent Ureteral Inside Tester Diversion 07fr [id number] - [id number] Implanted:Qty: 1 on 12/22/2023 by Alvaro Clark MD at [facility] Stent N/A: Abdomen [employer] [id number] 11/19/2026 [id number] / / [id number] Procedures Procedure Name Priority Date/Time Associated Diagnosis [...] Torres MD LAB - BLOOD ORDERA BLES [facility] [address] Lab (1st floor, no room number) [place] [address] * Lactate Dehydrogenase (02/10/2024 10:23 AM CDT) Lactate Dehydrogenase 163 0 - 250 U/L 02/10/2024 10:59 AM CDT [facility] Blood (Portacath) IVAD (Port) / Unknown 02/10/2024 10:23 AM CDT 02/10/2024 10:35 AM CDT Ky Torres MD LAB - BLOOD ORDERA BLES [facility] Lab [address] Lab (1st floor, no room number) [place] [address], [facility] * TSH with free T4 reflex (02/10/2024 10:23 AM CDT) Pathologist [facility] TSH 2.32 0.30 - 4.20 uIU/mL 02/10/2024 11:05 AM CDT LABORATORY Blood (Portacath) IVAD (Port) / Unknown 02/10/2024 10:23 AM CDT 02/10/2024 10:35 AM CDT Ky Torres MD LAB - BLOOD ORDERA BLES LABORATORY [facility] Acute Care Lab [address] Lab (1st floor, no room number) [place] [address], [facility] * (ABNORMAL) Testosterone total (02/10/2024 10:23 AM CDT) Pathologist [facility] Testosterone Total 69(L) 240 - 950 ng/dL 02/14/2024 7:01 AM CDT [facility] Blood (Portacath) IVAD (Port) / Unknown 02/10/2024 10:23 AM CDT 02/10/2024 10:35 AM CDT Ky Torres MD LAB - BLOOD ORDERA BLES [facility] [address] [facility] [address] Building, Room [address] [place] [address], [facility] * PSA tumor marker (02/10/2024 10:23 AM CDT) Pathologist [facility] PSA Tumor Marker 0.02 0.00 - 4.50 [...] Torres MD LAB - BLOOD ORDERA BLES [facility] LABORATORY [facility] [place] [facility] Lab 500 [facility], Room 3[address] [place] [address] * (ABNORMAL) Iron & Iron Binding Capacity [...] IBARRA LAB - BLOOD ORDERA BLES LABORATORY [facility] Acute Care Lab [address] Lab (1st floor, no room number) [place] [address] * Ferritin (02/10/2024 10:23 AM CDT) Ferritin 186 31 - 409 ng/mL 02/10/2024 3:05 PM CDT [facility] Blood (Portacath) IVAD (Port) / Unknown 02/10/2024 10:23 AM CDT 02/10/2024 10:35 AM CDT Dylan IBARRA LAB - BLOOD ORDERA BLES [facility]ORY [facility] [place] [facility] Lab [address] [facility], Room [address] [place] [address], [facility] * (ABNORMAL) Comprehensive metabolic panel (02/10/2024 10:23 [...] <0.2 <=1.2 mg/dL 02/10/2024 10:59 AM CDT [facility] Blood (Portacath) IVAD (Port) / Unknown 02/10/2024 10:23 AM CDT 02/10/2024 10:35 AM CDT Ky Torres MD LAB - BLOOD ORDERA BLES RH LABORATORY [facility] Acute Care Lab [address] Lab (1st floor, no room number) [place] [address], [facility] * Vitamin B12 (02/10/2024 10:23 AM CDT) Vitamin B12 649 232 - 1,245 pg/mL 02/10/2024 3:01 PM CDT [facility] Blood (Portacath) IVAD (Port) / Unknown 02/10/2024 10:23 AM CDT 02/10/2024 10:35 AM CDT Dylan IBARRA LAB - BLOOD ORDERA BLES [facility] LABORATORY [facility] [place] [facility] [address] [facility], Room [address] [place] [address] * (ABNORMAL) Urine Culture (01/15/2024 1:11 PM [...] MICRO GENERAL ORDERABLES UU IDD LABORATORY [facility] Inf. Diseases Diag. Lab 500 [facility], [address] [place] [address] * CT Chest/Abdomen/Pelvis w Contrast (01/13/2024 1:26 [...] Haynes PA-C IMG CT ORDERABLES * (ABNORMAL) Basic metabolic panel [...] LABORATORY [facility] Lab [address] [facility], Room [address] [address] * (ABNORMAL) CBC with platelets (12/29/2023 7:28 [...] LABORATORY [facility] [address] [facility], Room [place] [address] * Phosphorus (12/28/2023 11:53 AM CDT) Only the most recent of2 resultswithin the time period is included. Pathologist [facility] Phosphorus 2.8 2.5 - 4.5 mg/dL 12/28/2023 1:37 PM CDT UR LABORATORY Blood STRUCTURE OF RIGHT UPPER LIMB / Unknown Venipuncture / Unknown 12/28/2023 11:53 AM CDT 12/28/2023 12:53 PM CDT Krystian Manriquez MD LAB - BLOOD ORDERABL ES UR LABORATORY [facility] Lab [address] [facility], [address] [place] [address] * Magnesium (12/28/2023 11:53 AM CDT) Only [...] LABORATORY [facility] Lab [facility], Room [address] [address], [facility] * Electrolyte panel (12/27/2023 7:37 [...] LABORATORY [facility] Lab [address] [facility], [address] [place] [address] * Potassium (External Result) (12/26/2023 11:00 PM CDT) Potassium (External) 4.1 3.6 - 5.1 mmol/L [facility] Blood 12/26/2023 11:0 0 PM CDT [facility] - 12/26/2023 11:00 PM CDT [facility] ED NOTES Provider Outside LAB - HIM EXTERNAL R ESULT [address] [phone] * Glucose (External Result) (12/26/2023 11:00 PM CDT) Glucose (External) 112 60 - 115 mg/dL [facility] Blood 12/26/2023 11:0 0 PM CDT [facility] - 12/26/2023 11:00 PM CDT [facility] ED NOTES Provider Outside LAB - HIM EXTERNAL R ESULT [id number] [place] [address] * Creatinine (External Result) (12/26/2023 11:00 PM CDT) Creatinine (External) 0.9 0.5 - 1.5 mg/dL [facility] GFR Estimated (External) 95 mL/min [facility] Blood 12/26/2023 11:0 0 PM CDT [facility] - 12/26/2023 11:00 PM CDT [facility] ED NOTES Provider Outside LAB - HIM EXTERNAL R ESULT Performing Organization Address City/[facility]/ZIP Co de Phone Number [address] [address] [phone] * AST (External Result) (12/26/2023 11:00 PM CDT) AST (External) 34 12 - 35 U/L [facility] Blood 12/26/2023 11:0 0 PM CDT [facility] - 12/26/2023 11:00 PM CDT [facility] ED NOTES Provider Outside LAB - HIM EXTERNAL R ESULT Performing Organization Address City/[facility]/ZIP Co de Phone Number [address] [address] [phone] * ALT (External Result) (12/26/2023 11:00 PM CDT) ALT (External) 23 4 - 50 U/L [facility] Blood 12/26/2023 11:0 0 PM CDT [facility] - 12/26/2023 11:00 PM CDT [facility] ED NOTES Provider Outside LAB - HIM EXTERNAL R ESULT Performing Organization Address City/[facility]/ZIP Co de Phone Number [facility] [address] [place] [address], [facility] [phone] * Creatinine fluid (12/25/2023 10:28 AM CDT) [...] BODY FLUIDS OR DERABLES Performing Organization Address City/[facility]/ZIP Co de Phone Number U LABORATORY [facility] [place] [facility] 500 [facility], Room [address] [place] [address] * (ABNORMAL) Glucose by meter (12/23/2023 6:42 AM CDT) Only the most recent of2 resultswithin the time period is included. GLUCOSE BY METER POCT 118(H) 70 - 99 mg/dL 12/23/2023 6:49 AM CDT U LABORATORY POC Blood, Capillary BLOOD SPECIMEN / Unknown 12/23/2023 6:42 AM CDT 12/23/2023 6:49 AM CDT Alvaro Clark MD LAB - BEAKER POCT Performing Organization Address City/[facility]/ZIP Co de Phone Number LABORATORY POC [facility] [place] [facility] [address] [facility], [address] [place] [address] * Platelet count (12/22/2023 9:55 PM CDT) Platelet Count 179 150 - 450 10e3/uL 12/22/2023 10:12 PM CDT LABORATORY Blood STRUCTURE OF RIGHT HAND / Unknown IVAD (Port) / Unknown 12/22/2023 9:55 PM CDT 12/22/2023 10:04 PM CDT Alberto Tejeda MD LAB - BLOOD ORDERABL ES Performing Organization Address City/[facility]/ZIP Co de Phone Number LABORATORY [facility] [place] [facility] [address] [facility], Room [address] [place] [address] * XR Abdomen Port 1 View (12/22/2023 [...] Case Report Surgical Pathology Report ? Case: [id number] ? Authorizing Provider: ??Alvaro Clark MD ?Collected: [...] BLADDER: CYSTECTOMY, ANTERIOR EXENTERATION - All Specimens Edition - Protocol posted: [...] Histologic Grade: ? Grade: ?Grade group 2 (Hancock Score 3 + 4 = 7) ?? [...] 12/22/2023 at 9:15 AM Intra op performed at:[facility], [facility], [address] [place] [address], [address] [address] Intra-op Dx verbally delivered to Dr. Amber Tanner(2). Ureter, Right, Right distal ureteral margin: BFS1: Negative for malignancy John Carey MD on 12/22/2023 at 9:27 AM Intra op performed at:[facility], [facility], [address] [facility], Room [address] [address] Intra-op Dx verbally delivered to Dr. Amber Segura(3). Urethra, urethral margin: CFS1: - No evidence of malignancy Tracie Gonzalez MD on 12/22/2023 at 10:41 AM Intra op performed at:[facility], [facility], [address] [facility], Room [address] [address] Intra-op Dx verbally delivered to Dr. Clark 6:31 PM CDT [facility] Gross Description [...] reveal no mass deposits or lymph nodes. Gold Charmer sections are submitted. Gross photography is taken. D1-urethral margin, en face D2-right ureter margin, en face D3-left ureter margin, en face D4-lesion to right ureteral orifice D5-lesion to left ureteral orifice K6-Z32-tnqtau from dome to trigone G10-yqfecx to seminal vesicles R21-nbhew lateral wall G45-fckllqjf bladder wall T27-jtbz F69-U21-dovdw prostatic apex N02-R14-lmud prostatic apex D23-mid prostate, right anterior D24-mid prostate, left posterior D25-mid prostate, left anterior D26-mid prostate, left posterior S71-ycbh prostate, right anterior U57-paeg prostate, right posterior D86-wsei prostate, mid W89-pbzp prostate, left anterior Z57-xoqh prostate, left posterior E(5). Lymph Node(s), Pelvis, [...] possible lymph nodes E2-intact possible lymph node E9-O0-lobybkus possible lymph node X8-C0-iqdbecct possible lymph node Q3-L81-ktszamnd sectioned possible lymph node F(6). Lymph Node(s), [...] possible lymph nodes F2-bisected possible lymph node Q7-Y5-qizfchic sectioned possible lymph node G(7). Ureter, Left, [...] report. MCRS Yes(A) N/A 4 6:31 PM [facility] Comment:This is an appended report. These results have been appended to a previously preliminary verified report. Performing Labs The technical component of this testing was completed at [facility]. Stain controls for all stains resulted within this report have been reviewed and show appropriate reactivity. 6:31 PM CDT [facility] Comment:This is an appended report. These results have been appended to a previously preliminary verified report. Case Images 6:31 PM CDT SPECIALTY LABS Tissue STRUCTURE [...] CDT 12/22/2023 3:05 PM CDT Alvaro [facility] Specialty Lab 500 [facility] [address] J [facility], [address] [address], [facility] UU LABORATORY [facility] [place] [facility] 500 [facility] [address] Building, [address] [address], [facility] * ANE AIRWAY ETT PERFORMABLE (12/22/2023 8:02 AM CDT) Narrative Nessa Pereira APRN SALES ROUTE DRIVER - 12/22/2023 8:02 AM CDT Nessa Pereira APRN SALES ROUTE DRIVER ? 12/22/2023 ??8:22 AM Airway ? Patient location during procedure: OR ? Procedure Start/Stop Times: 12/22/2023 8:02 AM Staff - ? SALES ROUTE DRIVER: Nessa Pereira APRN SALES ROUTE DRIVER ? Performed By: CRNAIndications and Patient Condition [...] Time: 12/22/2023 8:02 AM Alf Olson MD [place] ANESTHESIA * Adult Type and Screen (12/22/2023 6:47 AM CDT) Only the most recent of2 resultswithin the time period is included. ABO/RH(D) A NEG 12/22/2023 6:16 AM CDT U BLOOD BANK Antibody Screen Negative Negative 12/22/2023 6:16 AM T U BLOOD BANK SPECIMEN EXPIRATION DATE [id number] 12/22/2023 6:16 AM T BLOOD BANK Blood STRUCTURE OF RIGHT HAND / Unknown Venipuncture / Unknown 12/22/2023 6:47 AM CDT 12/22/2023 6:56 AM CDT Alvaro Clark MD LAB - BLOOD BANK LICHA T ORDER [facility] B[facility] [address] [place] [address], [facility] from Last 3 Months Advance Directives For more information, please contact: [phone] * Full Code (Latest Code Status on [...] Discussion with saw nt/ legal decision maker Care Teams Special Officer Automat Relationship Specialty Start Date End Date Votel, Bhavin ROSE: [phone] [place] [address] PCP - General Family Medicine 12/28/23 Alvaro Clark MD [address] [address] Assigned Surgical Provider 07/24/23 Ky Torres MD [address] [address] Assigned Cancer Care Provider 01/22/24
--- OUTSIDE RECORDS SUMMARY | 2024-03-11 12:01 | XMS_ITS ---
Author Organization [facility] Address [address] [place] [address] Care Team Providers Care Facility Maintenance Mechanic Name Role Phone Alvaro Clark MD Unavailable Bhavin Gardner Primary Care Provider [phone] Ky Torres MD Unavailable [phone] Active Problems Problem Noted Date Diagnosed Date [...] Date:01/15/2024 Plan Provider:Ky Torres MD Linked Problems Malignant neoplasm of anteri or wall of urinary bladder (H) Treatment Medications Current Day (Day 1 , Cycle 2 - Planned for 02/12/2024) Next Day (Day 1, Cycle 3 - Planned for 03/11/2024) nivolumab (OPDIVO)nivolumab 480 mg in 100 mL NS infusion (LOCKED DOSE) nivolumab (OPDIVO) 480 mg in sodium chloride 0.9 % 148 mL infusion nivolumab (OPDIVO) 480 mg in sodium chloride 0.9 % 148 mL infusion Other Current Plans Iron Sucrose (Venofer) - 300 mg x3 doses* Plan Start Date:02/11/2024 Plan Provider:Dylan Guerin PA Linked Problems Iron deficiency anemia due t o chronic blood loss Treatment Medications No medications scheduled. Past Plans ONCOLOGY TREATMENT Plan Name Start Date Discontinue Date Treatment Medications Discontinue Reason Plan Provider Cycles OP ONC Bladder Cancer - Accelerated Methotrexate / vinBLAStine / DOXOrubicin / CISplatin (A-MVAC) 4 01/15/2024 CISplatin (PLATINOL) infusionDOXOrubicin (ADRIAMYCIN)methotrex atevinBLAStine (VELBAN) infusion Therapy Complete Ky Torres MD 4 of 4 cycles started Radiation Treatments * No radiation treatments are documented for this patient in [facility]. Treatments may have been administered in another system. Lifetime Dose Tracking * Chemical Lifetime Dose Automatic Entry Manual Entr y Doxorubicin 117.077 mg/m2 (240 mg) 117.077 mg/m2 (240 mg) 0 mg/m2 (0 mg) Total Air Kerma 2 mGy 2 mGy 0 mGy Fluoro Time 0.3 Minutes 0.3 Minutes 0 Minutes
--- OUTSIDE RECORDS SUMMARY | 2024-03-11 12:02 | XMS_ITS | Encounter Summary ---
Author Organization [facility] Address [address] [place] [address] Care Team Providers Care Limousine And Hearse Upholsterer Name Role Phone Alvaro Clark MD Unavailable Bhavin Gardner Primary Care Provider [phone] Ky Torres MD Unavailable [phone] Reason for Visit * Reason Onset Date Comments Symptoms 02/05/2024 Encounter Details Date Type Department Care Team (Late st Contact Info) Description 02/05/2024 Telephone [facility] [address] 200 [facility] [place] [address] Ky Torres MD 420 [facility] 480 [place] [address] Symptoms Social History Tobacco Use [...] st Contact Info) Description 04/08/2024 1:00 PM PANELBOARD OPERATOR Lab [place] [address] 200 [place] [phone] Yessica Mcleod PA-C [address] [place] [address] 04/08/2024 1:30 PM PANELBOARD OPERATOR Oncology Visit [place] [address] 200 [place] [address] Dylan Guerin PA [address] [facility] [place] [address] 04/08/2024 1:30 PM PANELBOARD OPERATOR Infusion Therapy Visit [address] 200 [place] [address] Ky Torres MD [address] [facility] 480 [place] [address] 05/02/2024 10:30 AM PANELBOARD OPERATOR Lab [address] 200 [place] [address] Ky Torres MD [address] [address] 05/02/2024 11:20 AM PANELBOARD OPERATOR Appointment [facility] Imaging [address] [place] [address] Ky Torres MD [address] [address] 05/06/2024 9:30 AM PANELBOARD OPERATOR Lab [address] 200 [place] [address] Ky Torres MD [address] [address] 05/06/2024 10:00 AM PANELBOARD OPERATOR Oncology Visit [address] 200 [place] [address] Ky Torres MD 420 [facility] 480 [place] [address] 05/06/2024 10:30 AM PANELBOARD OPERATOR Infusion Therapy Visit [facility] [address] [place] [address] Ky Torres MD 420 [facility] [address] [place] [address] documented as of this encounter Visit Diagnoses Not on filedocumented in this encounter Care Teams Limousine And Hearse Upholsterer Relationship Specialty Start Date End Date Votel, Bhavin Ford [address] [place] [address] PCP - General Family Medicine 12/28/23 Alvaro Clark MD 420 [facility] 394 [place] [address] Assigned Surgical Provider 07/24/23 Ky Torres MD 420 [facility] [address] [place] [address] Assigned Cancer Care Provider 01/22/24 documented as of this encounter
--- OUTSIDE RECORDS SUMMARY | 2024-03-11 12:02 | XMS_ITS | Encounter Summary ---
Author Organization [facility] Address [address] [place] [address] Care Team Providers Care Bicycle Service Technician Name Role Phone Alvaro Clark MD Unavailable Bhavin Gardner Primary Care Provider [phone] Ky Torres MD Unavailable [phone] Encounter Details Date Type Department Care Team (Latest Contact Info) Description 02/10/2024 Travel Social History Tobacco Use Types Packs/Day [...] st Contact Info) Description 04/08/2024 1:00 PM TUBE SPLICER Lab [facility] Medical [place] [address] 200 [place] [phone] Yessica Mcleod, PA-C [address] [place] [address] 04/08/2024 1:30 PM TUBE SPLICER Oncology Visit [place] [address] [address] 200 [facility] [place] [phone] Dylan Guerin PA 909 [place], [place] [address] 04/08/2024 1:30 PM TUBE SPLICER Infusion Therapy Visit [address] 200 [place] [address] Ky Torres MD [address] [facility] 480 [place] [address] 05/02/2024 10:30 AM TUBE SPLICER Lab [address] 200 [place] [address] Ky Torres MD [address] [address] 05/02/2024 11:20 AM TUBE SPLICER Appointment [facility] Imaging [address] [place] [address] Ky Torres MD [address] [address] 05/06/2024 9:30 AM TUBE SPLICER Lab [address] [place] [address] Ky Torres MD [address] [address] 05/06/2024 10:00 AM TUBE SPLICER Oncology Visit [address] 200 [place] [address] Ky Torres MD 420 [facility] 480 [place] [address] 05/06/2024 10:30 AM TUBE SPLICER Infusion Therapy Visit [facility] [address] [place] [place] [address] Ky Torres MD 420 [facility] 480 [place] [address] documented as of this encounter Visit Diagnoses Not on filedocumented in this encounter Care Teams Bicycle Service Technician Relationship Specialty Start Date End Date Votel, Bhavin Ford [address] [place] [address] PCP - General Family Medicine 12/28/23 Alvaro Clark MD 420 [facility] 394 [place] [address] Assigned Surgical Provider 07/24/23 Ky Torres MD [address] [address] Assigned Cancer Care Provider 01/22/24 documented as of this encounter
--- OUTSIDE RECORDS SUMMARY | 2024-03-11 12:02 | XMS_ITS | Encounter Summary ---
Author Organization [facility] Address [address] [place] [address] Care Team Providers Care Ob Scrub Tech Name Role Phone Alvaro Clark MD Unavailable Bhavin Gardner Primary Care Provider [phone] Ky Torres MD Unavailable [phone] Reason for Visit * Reason Comments Chemotherapy Opdivo and Venofer * Treatment and Therapy Plans (Routine) - Authorized Specialty Diagnoses / Procedures Referred By Contac t Referred To Contact Infusion Therapy Diagnoses Malignant neoplasm of anterior wall of urinary bladder (H) Procedures ZZC INJECTION, NIVOLUMAB 1MG Ky Torres MD [address] [address] Rh Cancer Infus [facility]tr [place] [address] [address] [place] [address] Referral ID Status Reason Start Date Expiration Date V isits Requested Visits Authorized [id number] Authorized 01/15/2024 05/31/2024 99 99 Encounter Details Date Type Department Care Team (Late st Contact Info) Description 02/11/2024 11:00 AM CDT Infusion Therapy Visit [facility] [place] [address] [address] [place] [address] Ky Torres MD [address] [address] Malignant neoplasm of anterior wall of urinary bladder (H) (Primary Dx); Iron deficiency anemia due to chronic blood loss Social History Tobacco Use Types Packs/Day Years Used Date Smoking Tobacco: Former Cigarettes 1.5 30 1 980 2009 Passive Smoke Exposure: Past Smokeless Tobacco: [...] Mass Index 26.31 02/11/2024 11:31 AM CDT documented in this encounter Patient Instructions * Attachments The following attachments cannot be sent through Care Everywhere. * Iron Sucrose Injection (IRON SUCROSE - INJECTION) (Bahraini) * Nivolumab Injection (NIVOLUMAB - INJECTION) (Bahraini) documented in this encounter Progress Notes * Bessy Diaz RN - 02/11/2024 11:00 AM CDT Infusion Nursing Note: Oleg Richard presents today for C1D1 Opdivo. Patient seen by provider today: No. Dr Torres yesterday 02/10/24. Production Support Analyst present during visit today: Not Applicable. Note: Reviewed Venofer and Opdivo handouts and gave them to patient. Patient's questions answered and told when to seek medical attention. Patient has a high copay so he prefers to get Venofer and Opdivo on the same visit. Intravenous Access: Implanted Port. Treatment Conditions: Lab Results Component Value Date HGB 8.8 (L) 02/10/2024 WBC 7.6 02/10/2024 ANEU 9.3 (H) 11/10/2023 ANEUTAUTO 5.0 02/10/2024 PLT 309 02/10/2024 Lab Results Component Value Date NA 136 02/10/2024 POTASSIUM 4.4 02/10/2024 MAG 2.0 12/28/2023 CR 0.89 02/10/2024 JUANY 8.7 (L) 02/10/2024 BILITOTAL <0.2 02/10/2024 ALBUMIN 3.3 (L) 02/10/2024 ALT 18 02/10/2024 AST 25 02/10/2024 Results reviewed, labs MET treatment parameters, ok [...] all questions answered. AVS to patient via AppSurferT. Patient will return 03/11/24 for next appointment. Patient discharged in stable condition accompanied by: self. Departure Mode: Ambulatory. Bessy Diaz RN documented in this encounter Plan of Treatment Upcoming Encounters Date Type Department Care Team (Late st Contact Info) Description 04/08/2024 1:00 PM CERTIFED REFRIGERATION OPERATOR Lab [place] [address] [place] [address] Yessica Mcleod PA-C [address] [place] [address] 04/08/2024 1:30 PM CERTIFED REFRIGERATION OPERATOR Oncology Visit [address] 200 [facility] [place] [address] Dylan Guerin PA [address] [place] [address] 04/08/2024 1:30 PM CERTIFED REFRIGERATION OPERATOR Infusion Therapy Visit [address] 200 [place] [address] Ky Torres MD [address] [facility] 480 [place] [address] 05/02/2024 10:30 AM CERTIFED REFRIGERATION OPERATOR Lab [address] 200 [place] [address] Ky Torres MD [address] [address] 05/02/2024 11:20 AM CERTIFED REFRIGERATION OPERATOR Appointment [facility] Imaging [address] [place] [address] Ky Torres MD [address] [address] 05/06/2024 9:30 AM CERTIFED REFRIGERATION OPERATOR Lab [address] [place] [address] Ky Torres MD [address] [facility] 480 [place] [address] 05/06/2024 10:00 AM CERTIFED REFRIGERATION OPERATOR Oncology Visit [address] 200 [place] [address] Ky Torres MD [address] [facility] 480 [place] [address] 05/06/2024 10:30 AM CERTIFED REFRIGERATION OPERATOR Infusion Therapy Visit [facility] [address] [place] [address] Ky Torres MD 420 [facility] 480 [place] [address] documented as of this encounter Visit Diagnoses Diagnosis Malignant neoplasm of anterior wall of urinary bladder (H)- Primary Malignant neoplasm of anterior wall of urinary bladder Iron deficiency anemia due to chronic blood loss Iron deficiency anemia secondary to blood loss (chronic) documented in this encounter Administered Medications Inactive Administered Medications - up to 3 most recent administrations Medication Order MAR Action Action Date Dose Rate Site heparin lock flush 100 unit/mL injection 5 mL 5 mL, Intracatheter, ONCE PRN, To de-access CVC Impanted port or lock each lumen, Starting on Thu02/11/24 at 1052, PORT: to de-access, instill 5 mL before PORT needle is removed and every 28 days. Apheresis: only for use when patient is NOT under care of apheresis services; after a 10 mL NS flush, lock each lumen of the catheter with 5 mL. $Given 02/11/2024 1:53 PM CDT 5 mLs iron sucrose (VENOFER) 300 mg in sodium chloride 0.9 % 290 mL intermittent infusion 300 mg, Intravenous, Administer over 90 Minutes, at 193.3 mL/hr, ONCE, On Thu02/11/24 at 1100, For 1 dose, Give subsequent doses at least 48 hours apart. $New Bag 02/11/2024 11:28 AM CDT 300 mg 193.3 mL/hr nivolumab (OPDIVO) 480 mg in sodium chloride 0.9 % 158 mL infusion 480 mg, Intravenous, ONCE, On Thu02/11/24 at 1300, For 1 dose, Administer over 30 Minutes, Administer through 0.2-1.2 micron low protein binding filter. May require hepatic and/or renal dose or frequency adjustments. See reference link for guidelines. $New Bag 02/11/2024 1:08 PM CDT 480 mg 316 mL/hr sodium chloride (PF) 0.9% PF flush 3-20 mL 3-20 mL, Intracatheter, EVERY 1 MIN PRN, line flush, post meds or blood draw, Starting on Fiona 02/11/24 at 1052, PIV: 3 mL after each use & [...] patency; 20 mL after blood draw. $Given 02/11/2024 1:53 PM CDT 10 mLs $Given 02/11/2024 11:20 AM CDT 10 mLs sodium chloride 0.9% BOLUS 250 mL Intravenous, 250 mL, ONCE, On Fiona 02/11/24 at 1100, For 1 dose, Concomitant fluids. $New Bag 02/11/2024 11:15 AM CDT 250 mLs documented in this encounter Care Teams Ob Scrub Tech Relationship Specialty Start Date End Date VotelBhavin 1400 [place] [address] PCP - General Family Medicine 12/28/23 Alvaro Clark MD 420 [facility] 394 [place] [address] Assigned Surgical Provider 07/24/23 Ky Torres MD 420 [facility] 480 [place] [address] Assigned Cancer Care Provider 01/22/24 documented as of this encounter
--- OUTSIDE RECORDS SUMMARY | 2024-03-11 12:02 | XMS_ITS | Encounter Summary ---
Author Organization [facility] Address [address] [place] [address] Care Team Providers Care Chief Crna Name Role Phone Alvaro Clark MD Unavailable Bhavin Gardner Primary Care Provider [phone] Ky Torres MD Unavailable [phone] Encounter Details Date Type Department Care Team (Late Contact Info) Description 02/04/2024 Orders Only [facility] [address] [place] [address] Sigrid Tadeo, [facility] Social History Tobacco Use Types [...] Department Care Team (Late Contact Info) Description 04/08/2024 1:00 PM DISTRIBUTION COLLECTION OPERATOR Lab [facility] [address] [place] [phone] Yessica Mcleod PAJannetC [address] [place] [address] 04/08/2024 1:30 PM DISTRIBUTION COLLECTION OPERATOR Oncology Visit [address] [place] [phone] Dylan Guerin PA [address] [place] [address] 04/08/2024 1:30 PM DISTRIBUTION COLLECTION OPERATOR Infusion Therapy Visit [address] 200 [place] [address] Ky Torres MD [address] [facility] 480 [place] [address] 05/02/2024 10:30 AM DISTRIBUTION COLLECTION OPERATOR Lab [address] 200 [place] [address] Ky Torres MD [address] [facility] 480 [place] [address] 05/02/2024 11:20 AM DISTRIBUTION COLLECTION OPERATOR Appointment [facility] Imaging [address] [place] [address] Ky Torres MD [address] [facility] 480 [place] [address] 05/06/2024 9:30 AM DISTRIBUTION COLLECTION OPERATOR Lab [address] [place] [address] Ky Torres MD [address] [facility] [address] [place] [address] 05/06/2024 10:00 AM DISTRIBUTION COLLECTION OPERATOR Oncology Visit [address] 200 [facility] [place] [address] Ky Torres MD 420 [facility] 480 [place], [place] [address] 05/06/2024 10:30 AM DISTRIBUTION COLLECTION OPERATOR Infusion Therapy Visit [facility] [address] [place] [address] Ky Torres MD 420 [facility] 480 [place], [place] [address] documented as of this encounter Visit Diagnoses Not on filedocumented in this encounter Care Teams Chief Crna Relationship Specialty Start Date End Date VotelBhavin [address] [place] [address] PCP - General Family Medicine 12/28/23 Alvaro Clark MD 420 [facility] 394 [place], [place] [address] Assigned Surgical Provider 07/24/23 Ky Torres MD 420 [facility] 480 [place] [address] Assigned Cancer Care Provider 01/22/24 documented as of this encounter
--- OUTSIDE RECORDS SUMMARY | 2024-03-11 12:02 | XMS_ITS | Encounter Summary ---
Author Organization [facility] Address [address] [place] [address] Care Team Providers Care Utility Appraiser Name Role Phone Alvaro Clark MD Unavailable Yessica Mcleod PA-C Unavailable Bhavin Gardner Primary Care Provider [phone] Reason for Visit * Reason Onset Date Comments Patient/info Update 01/18/2024 Encounter Details Date Type Department Care Team (Late st Contact Info) Description 01/18/[address] 200 [facility] [place] [address] Alvaro Clark MD 420 [facility] [address] [place] [address] Patient/info Update Social History Tobacco [...] 10 days. Charlie Watkins RN Sw Cancer [id number] minutes ago (8:51 AM) TK Are we [...] fever and chills yesterday. He went to [place] ER early this morning around 2:00 am. [...] that he just feels weak and tired. Dry Cleaner Apprentice advised pt to continue to drink fluids [...] st Contact Info) Description 04/08/2024 1:00 PM STOCKROOM CLERK Lab [address] [place] [address] Yessica Mcleod PA-C [address] [place] [address] 04/08/2024 1:30 PM STOCKROOM CLERK Oncology [place] [address] [place] [address] Dylan Guerin PA [address] [place] [address] 04/08/2024 1:30 PM STOCKROOM CLERK Infusion Therapy Visit [place] [address] [place] [address] Ky Torres MD [address] [place] [address] 05/02/2024 10:30 AM STOCKROOM CLERK Lab [place] [address] [place] [address] Ky Torres MD [address] [facility] [address] [place] [address] 05/02/2024 11:20 AM STOCKROOM CLERK Appointment [facility] Imaging [address] [place] [address] Ky Torres MD 420 [facility] [address] [place] [address] 05/06/2024 9:30 AM STOCKROOM CLERK Lab [address] [place] [address] Ky Torres MD 420 [facility] [address] [place] [address] 05/06/2024 10:00 AM STOCKROOM CLERK Oncology Visit [address] [place] [address] Ky Torres MD [address] [place] [address] [address] 05/06/2024 10:30 AM STOCKROOM CLERK Infusion Therapy Visit [address] [place] [address] Ky Torres MD 420 [facility] [address] [place] [address] documented as of this encounter Visit Diagnoses Diagnosis Urinary tract infection- Primary Urinary tract infection, site not specified documented in this encounter Care Teams Utility Appraiser Relationship Specialty Start Date End Date Votel, Bhavin ROSE: [phone] [place] [address] PCP - General Family Medicine 12/28/23 Alvaro Clark MD [address] [place] [address] Assigned Surgical Provider 07/24/23 Yessica Mcleod PA-C [address] [place] [address] Assigned Cancer Care Provider 12/22/23 01/21/24 documented as of this encounter
--- OUTSIDE RECORDS SUMMARY | 2024-03-11 12:02 | XMS_ITS | Encounter Summary ---
Author Organization [place] Address [address] [place] [address] Care Team Providers Care Seo Coordinator Name Role Phone Alvaro Clark MD Unavailable Yessica Mcleod PA-C Unavailable Bhavin Gardner Primary Care Provider [phone] Encounter Details Date Type Department Care Team [...] st Contact Info) Description 04/08/2024 1:00 PM PROJECT EXECUTIVE Lab [facility] Ctr [place] [address] [place] [phone] Yessica Mcleod, PAJose Luis [address] [place] [address] 04/08/2024 1:30 PM PROJECT EXECUTIVE Oncology Visit [place] [address] [address] [facility] [place] [phone] Dylan Guerin PA 909 [place], [place] [address] 04/08/2024 1:30 PM PROJECT EXECUTIVE Infusion Therapy Visit [address] [place] [address] Ky Torres MD [address] [facility] 480 [place] [address] 05/02/2024 10:30 AM PROJECT EXECUTIVE Lab [address] [place] [address] Ky Torres MD 420 [facility] [address] [address] 05/02/2024 11:20 AM PROJECT EXECUTIVE Appointment [facility] Center Imaging [address] [place] [address] Ky Torres MD 420 [facility] [address] [address] 05/06/2024 9:30 AM PROJECT EXECUTIVE Lab [address] [place] [address] Ky Torres MD [address] [address] 05/06/2024 10:00 AM PROJECT EXECUTIVE Oncology Visit [address] [place] [address] Ky Torres MD 420 [facility] 480 [place] [address] 05/06/2024 10:30 AM PROJECT EXECUTIVE Infusion Therapy Visit [facility] Ctr [facility] [address] [place] [address] Ky Torres MD [address] [address] documented as of this encounter Visit Diagnoses Not on filedocumented in this encounter Care Teams Seo Coordinator Relationship Specialty Start Date End Date Votel, Bhavin Ford [address] [place] [address] PCP - General Family Medicine 12/28/23 Alvaro Clark MD [address] [address] Assigned Surgical Provider 07/24/23 Yessica Mcleod PAJannetC [address] [place] [address] Assigned Cancer Care Provider 12/22/23 01/21/24 documented as of this encounter
--- OUTSIDE RECORDS SUMMARY | 2024-03-11 12:02 | XMS_ITS | Encounter Summary ---
Author Organization [place] Address [address] [place] [address] Care Team Providers Care Patient Assessment Coordinator Name Role Phone Alvaro Clark MD Unavailable Yessica Mcleod PA-C Unavailable Bhavin Gardner Primary Care Provider [phone] Encounter Details Date Type Department Care Team (Late Contact Info) Description 01/15/2024 12:40 PM CDT Lab [facility] [address] [place] [phone] Urothelial cancer (H) Social History Tobacco Use [...] (Late Contact Info) Description 04/08/2024 1:00 PM LOCOMOTIVE OPERATOR Lab [facility] [address] [place] [phone] Yessica Mcleod PAJose Luis 909 [place], [place] [address] 04/08/2024 1:30 PM LOCOMOTIVE OPERATOR Oncology Visit [address] [place] [phone] Dylan Guerin PA 909 [place] [address] 04/08/2024 1:30 PM LOCOMOTIVE OPERATOR Infusion Therapy Visit [address] [place] [phone] Ky Torres MD [address] [address] 05/02/2024 10:30 AM LOCOMOTIVE OPERATOR Lab [address] [place] [address] Ky Torres MD [address] [facility] 480 [place] [address] 05/02/2024 11:20 AM LOCOMOTIVE OPERATOR Appointment [facility] Specialty Care Center Imaging [address] [place] [phone] Ky Torres MD [address] [facility] 480 [place] [address] 05/06/2024 9:30 AM LOCOMOTIVE OPERATOR Lab [address] [place] [address] Ky Torres MD [address] [facility] 480 [place] [address] 05/06/2024 10:00 AM LOCOMOTIVE OPERATOR Oncology Visit [facility] [address] [facility] [place] [address] Ky Torres MD 420 [facility] 480 [place] [address] 05/06/2024 10:30 AM LOCOMOTIVE OPERATOR Infusion Therapy Visit [facility] Ctr [facility] [address] [place] [address] Ky Torres MD 420 [facility] 480 [place], [place] [address] documented as of this encounter Procedures Procedure [...] - MICRO GENERAL ORDERABLES [facility] IDD LABORATORY [facility] Inf. Diseases Diag. Lab 500 [facility], Room D297 [place] [address] * (ABNORMAL) CBC with [...] MD LAB - BLOOD ORDERABL ES LABORATORY [facility] Acute Care Lab [address] Lab (1st floor, no room number) [place] [address], [facility] documented in this encounter Visit Diagnoses Diagnosis Urothelial cancer (H) Malignant neoplasm of other specified sites of urinary organs documented in this encounter Care Teams Patient Assessment Coordinator Relationship Specialty Start Date End Date Votel, Bhavin [place] [address] PCP - General Family Medicine 12/28/23 Alvaro Clark MD [address] [address] Assigned Surgical Provider 07/24/23 Yessica Mcleod PA-C [address] [place] [address] Assigned Cancer Care Provider 12/22/23 01/21/24 documented as of this encounter
--- OUTSIDE RECORDS SUMMARY | 2024-03-11 12:02 | XMS_ITS | Encounter Summary ---
Author Organization [place] Address [address] [place] [address] Care Team Providers Care Swage Tender Name Role Phone Alvaro Clark MD Unavailable Ysesica Mcleod PA-C Unavailable Bhavin Gardner Primary Care Provider [phone] Encounter Details Date Type Department Care Team (Late st Contact Info) Description 01/15/[address] [facility] Cancer Center [address] [place] 200 [facility] [place] [address] Charlie Almonte, RN Urothelial cancer (H) (Primary [...] st Contact Info) Description 04/08/2024 1:00 PM INTERLOCKING PAVEMENT INSTALLER Lab [address] [place] [phone] Yessica Mcleod PA-C 909 [place], [place] [address] 04/08/2024 1:30 PM INTERLOCKING PAVEMENT INSTALLER Oncology Visit [address] [place] [phone] Dylan Guerin PA 909 [place], [place] [address] 04/08/2024 1:30 PM INTERLOCKING PAVEMENT INSTALLER Infusion Therapy Visit [address] [place] [address] Ky Torres MD [address] [address] 05/02/2024 10:30 AM INTERLOCKING PAVEMENT INSTALLER Lab [address] [place] [address] Ky Torres MD [address] [address] 05/02/2024 11:20 AM INTERLOCKING PAVEMENT INSTALLER Appointment [facility] Imaging [address] [place] [place] [phone] Ky Torres MD 420 [facility] 480 [place], [place] [address] 05/06/2024 9:30 AM INTERLOCKING PAVEMENT INSTALLER Lab [address] [place] [address] Ky Torres MD 420 [facility] 480 [place] [address] 05/06/2024 10:00 AM INTERLOCKING PAVEMENT INSTALLER Oncology Visit [address] [place] [phone] Ky Torres MD [address] [place] [address] 05/06/2024 10:30 AM INTERLOCKING PAVEMENT INSTALLER Infusion Therapy Visit [address] [place] [address] Ky Torres MD [address] [place] [address] Scheduled Orders Name Type Priority Associated Diagnoses [...] bladder documented in this encounter Care Teams Swage Tender Relationship Specialty Start Date End Date Votel, [place] [address] PCP - General Family Medicine 12/28/23 Alvaro Clark MD [address] [address] Assigned Surgical Provider 07/24/23 Yessica Mcleod PA-C [address] [place] [address] Assigned Cancer Care Provider 12/22/23 01/21/24 documented as of this encounter
--- OUTSIDE RECORDS SUMMARY | 2024-03-11 12:02 | XMS_ITS | Encounter Summary ---
Author Organization [place] Address [address] [place] [address]. [place] [address] Care Team Providers Care Short Haul Driver Name Role Phone Alvaro Clark MD Unavailable Bhavin Gardner Primary Care Provider [phone] Ky Torres MD Unavailable [phone] Reason for Visit * Reason Comments Oncology Clinic Visit Encounter Details Date Type Department Care Team (Latest Contact Info) Description 02/10/2024 10:00 AM CDT Oncology Visit [address] [place] 200 [facility] [place] [address] Dylan Guerin PA [address] [place] [address] 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); Iron [...] Sign Reading Time Taken Comments Blood Pressure 107/66 02/10/2024 10:37 AM CDT Pulse 85 02/10/2024 10:37 AM CDT Temperature 36.6 ??C (97.8 ??F) 02/10/2024 10:37 AM C DT Respiratory Rate 16 02/10/2024 10:37 AM CDT Oxygen Saturation 96% 02/10/2024 10:37 AM CDT Inhaled Oxygen Concentration - - Weight 76.7 kg (169 lb 3.2 oz) 02/10/2024 10:37 AM CDT Height 172.7 cm (5' 7.99) 02/10/2024 10:37 AM C DT Body Mass Index 25.73 02/10/2024 10:37 AM CDT documented in this encounter Progress Notes * Dylan Guerin PA - 02/10/2024 8:30 AM CDT Oncology/Hematology Visit Note Feb 10, 2024 Reason for Visit: Follow up of urothelial cancer from bladder, Stage IIIA (ypT4a, pN0, cM0) History of Present Illness: TREATMENT SUMMARY: Oleg presented with urinary retention to the [facility] ED on 05/26/23. He had urinary urgency andfrequency for the previous few weeks. He was noted to have urinary retention and blood in urine without any infection. He had a CT scan done in ED which showed decompressed bladder with parry and wasotherwise unremarkable. He then was seen by Carolina Arrieta in urology at [facility] and referred for cystoscopy. He had [...] neoadjuvant chemotherapy followed by radical cystoprostatectomy on 12/22/23. Recommended adjuvant Nivolumab x 1 year. Monitor PSA for incidental prostate cancer. Interval History: Oleg returns today prior to his first Nivolumab infusion. He had UTI last week, was started on abxby ED. Notes improvement in pelvic pain, urine mucus, and no further fevers. He has one week of Keflex left. He denies any hematuria. He denies any respiratory concerns, though does note lower energyand gets winded easily compared to before treatment. He is weaker and has lost weight with his cancer treatment and surgery. He is having mild constipation, plans to take Senna/Miralax again to help with this. No edema. Current Outpatient Medications Medication Sig Dispense Refill [...] mouth 2 times daily 40 tablet 0 Past Medical History Past Medical History: Diagnosis Date Lesion of bladder Migraine 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 (H) Past Surgical History: Procedure Laterality Date CYSTECTOMY [...] Surgeon: Alvaro Clark MD; Location: [facility] OR Allergies Allergen Reactions Penicillins Nausea and Vomiting Social History Social History Tobacco Use Smoking status: Former Current packs/day: 0.00 Average packs/day: 1.5 packs/day for 30.0 years (45.0 ttl pk-yrs) Types: Cigarettes Start date: 1979 Quit date: 2009 Years since quittin.7 Passive exposure: Past Smokeless tobacco: Never Substance Use Topics Alcohol use: Never Drug use: Never Past medical history and social history were reviewed. Physical Examination: BP 107/66 Pulse 85 Temp 97.8 ??F (36.6 ??C) (Temporal) Resp 16 Ht 1.727 m (5' 7.99) Wt 76.7 kg (169 lb 3.2 oz) SpO2 96% BMI 25.73 kg/m?? Wt Readings from Last 10 Encounters: 01/15/24 78.6 kg (173 lb 4.5 oz) 01/15/24 78.6 kg (173 lb 3.2 oz) 01/01/24 80.8 kg (178 lb 1.6 oz) 12/30/23 83.1 kg (183 lb 3.2 oz) 12/27/23 87.5 kg (192 lb 14.4 oz) 12/22/23 88 kg (194 lb 0.1 oz) 12/11/23 85.7 kg (189 lb) 11/27/23 86.5 kg (190 lb 11.2 oz) 11/20/23 85.8 kg (189 lb 3.2 oz) 11/10/23 87.1 kg (192 lb 1.6 oz) Constitutional: Well-appearing male in no acute distress. Eyes: EOMI, PERRL. No scleral icterus. ENT: Oral mucosa is moist without lesions or thrush. Lymphatic: Neck is supple without cervical or supraclavicular lymphadenopathy. Cardiovascular: Regular rate and rhythm. No murmurs, gallops, or rubs. No peripheral edema. Respiratory: Clear to auscultation bilaterally. No wheezes or crackles. Gastrointestinal: Bowel sounds present. Abdomen soft, non-tender. Neurologic: Cranial nerves II through XII are grossly intact. Skin: No rashes, petechiae, or bruising noted on exposed skin. Laboratory Data: Latest Reference Range & Units 02/10/24 10:23 Sodium 135 - 145 mmol/L 136 Potassium 3.4 - 5.3 mmol/L 4.4 Chloride 98 - 107 mmol/L 99 Carbon Dioxide (CO2) 22 - 29 mmol/L 26 Urea Nitrogen 8.0 - 23.0 mg/dL 19.8 Creatinine 0.67 - 1.17 mg/dL 0.89 GFR Estimate >60 mL/min/1.73m2 >90 Calcium 8.8 - 10.4 mg/dL 8.7 (L) Anion Gap 7 - 15 mmol/L 11 Albumin 3.5 - 5.2 g/dL 3.3 (L) Protein Total 6.4 - 8.3 g/dL 6.8 Alkaline Phosphatase 40 - 150 U/L 76 ALT 0 - 70 U/L 18 AST 0 - 45 U/L 25 Bilirubin Total <=1.2 mg/dL <0.2 Glucose 70 - 99 mg/dL 97 Iron 61 - 157 ug/dL 16 (L) Iron Binding Capacity 240 - 430 ug/dL 238 (L) Iron Sat Index 15 - 46 % 7 (L) Lactate Dehydrogenase 0 - 250 U/L 163 TSH 0.30 - 4.20 uIU/mL 2.32 WBC 4.0 - 11.0 10e3/uL 7.6 Hemoglobin 13.3 - 17.7 g/dL 8.8 (L) Hematocrit 40.0 - 53.0 % 28.4 (L) Platelet Count 150 - 450 10e3/uL 309 RBC Count 4.40 - 5.90 10e6/uL 3.25 (L) MCV 78 - 100 fL 87 MCH 26.5 - 33.0 pg 27.1 MCHC 31.5 - 36.5 g/dL 31.0 (L) RDW 10.0 - 15.0 % 14.6 % Neutrophils % 66 % Lymphocytes % 12 % Monocytes % 11 % Eosinophils % 6 % Basophils % 1 Absolute Basophils 0.0 - 0.2 10e3/uL 0.1 Absolute Eosinophils 0.0 - 0.7 10e3/uL 0.5 Absolute Immature Granulocytes <=0.4 10e3/uL 0.3 Absolute Lymphocytes 0.8 - 5.3 10e3/uL 0.9 Absolute Monocytes 0.0 - 1.3 10e3/uL 0.8 % Immature Granulocytes % 4 Absolute Neutrophils 1.6 - 8.3 10e3/uL 5.0 Absolute NRBCs 10e3/uL 0.0 NRBCs per 100 WBC <1 /100 0 (L): Data is abnormally low Assessment and Plan: # Muscle Invasive Urothelial Cancer S/p post neoadjuvant ddMVAC and cystoprostatectomy with neobladder [id number] disease *prostate stromainvolvement. Residual disease on pathology despite aggressive neoadjuvant chemotherapy. - Recommend adjuvant Nivolumab x 1 year. Reviewed treatment today - Plan to start C1D1 Nivo 02/11/24 - Plan for treatment every 4 weeks with plans to get imaging after cycle 3 - ABDULAZIZ or MD visit with each treatment # Prostate Cancer Incidental on pathology from cystoprostatectomy, Ellen 3+ 4. - Will monitor PSA. Baseline today pending # Recurrent UTI Post Surgery Has completed multiple abx courses, currently on Keflex. No ongoing infectious symptoms - Plan to reach out to Dr. Clark if ongoing issues in the future # Constipation Mild - Continue Senna/Miralax # Anemia Last chemotherapy October 2023, anemia is persistent so warrants further work-up - Iron studies concerning for DUKE with iron sat low at 7% - Will plan for Venofer x 3 - Patient concerned about co-pay with infusion appointments. Will plan to do Venofer with his Nivolumab infusions - Patient has never had a colonoscopy and is declining now. He is willing to do occult blood stool testing - If stool is positive for blood then would more strongly recommend EGD/colonoscopy - He will start PO iron as well, stop if GI upset - B12 pending - Check folate next visit 50 minutes spent on the date of the encounter doing chart review, review of test results, interpretation of tests, patient visit, and documentation, discussion with nursing and pharmacy. Dylan Guerin PA-C Department of Hematology and Oncology [facility] documented in this encounter Nursing Notes * Lori Portillo CMA - 02/10/2024 10:00 AM CDT * Veronica Hidalgo MA - 02/10/2024 10:00 AM CDT Oncology Rooming Note February 10, 2024 10:39 AM Oleg Richard is a 63 year old male who presents for: Chief Complaint Patient presents with Oncology Clinic Visit Initial Vitals: BP 107/66 Pulse 85 Temp 97.8 ??F (36.6 ??C) (Temporal) Resp 16 Ht 1.727 m (5' 7.99) Wt 76.7 kg (169 lb 3.2 oz) SpO2 96% BMI 25.73 kg/m?? Estimated body mass index is 25.73 kg/m?? as calculated from the following: Height as of this encounter: 1.727 m (5' 7.99). Weight as of this encounter: 76.7 kg (169 lb 3.2 oz). Body surface area is 1.92 meters squared. No Pain (0) Comment: Data Unavailable No LMP for male patient. Allergies reviewed: Yes Medications reviewed: Yes Medications: Medication refills not needed today. Pharmacy name entered into [facility]: [address] Frailty Screening: Is the patient here for a new oncology consult visit in cancer care? 2. No Clinical concerns: Follow up Veronica Hidalgo MA documented in this encounter Plan of Treatment Upcoming Encounters Date Type Department Care Team (Late st Contact Info) Description 04/08/2024 1:00 PM [facility] [address] [place] [phone] Yessica Mcleod PA-C [address] [place] [address] 04/08/2024 1:30 PM QUICKBOOKS BOOKKEEPER Oncology Visit [address] [place] [phone] Dylan Guerin PA 909 [place], [place] [address] 04/08/2024 1:30 PM QUICKBOOKS BOOKKEEPER Infusion Therapy Visit [address] [place] [address] Ky Torres MD [address] [facility] 480 [place] [address] 05/02/2024 10:30 AM QUICKBOOKS BOOKKEEPER Lab [address] [place] [address] Ky Torres MD [address] [facility] 480 [place], [place] [address] 05/02/2024 11:20 AM QUICKBOOKS BOOKKEEPER Appointment [facility] Care Center Imaging [address] [place] [address] [place] [phone] Ky Torres MD [address] [facility] 480 [place] [address] 05/06/2024 9:30 AM QUICKBOOKS BOOKKEEPER Lab [address] [place] [address] Ky Torres MD [address] [facility] 480 [place] [address] 05/06/2024 10:00 AM QUICKBOOKS BOOKKEEPER Oncology Visit [facility] [address] [place] [address] [facility] [place] [address] Ky Torres MD [address] [address] 05/06/2024 10:30 AM QUICKBOOKS BOOKKEEPER Infusion Therapy Visit [facility] Ctr [facility] [address] [place] [place] [address] Ky Torres MD [address] [address] Scheduled Orders Name Type Priority Associated Diagnoses Orde r Schedule Occult blood stool 1-3 spec Lab Routine Iron deficiency anemia due to chronic blood loss Expected: 02/10/2024 (Approximate), Expires: 02/09/2025 documented as of this encounter Procedures Procedure Name Priority Date/Time Associated Diagnosis Comments IRON AND IRON BINDING CAPACITY Add-On 02/10/2024 10:23 AM CDT Anemia in neoplastic disease FERRITIN Add-On 02/10/2024 10:23 AM CDT Anemia in neoplastic disease VITAMIN B12 Add-On 02/10/2024 10:23 AM CDT Anemia in neoplastic disease documented in this encounter Results * Vitamin B12 (02/10/2024 10:23 AM CDT) Vitamin B12 649 232 - 1,245 pg/mL 02/10/2024 3:01 PM CDT [facility] LABORATORY Blood (Portacath) IVAD (Port) / Unknown 02/10/2024 10:23 AM CDT 02/10/2024 10:35 AM CDT Dylan IBARRA LAB - BLOOD ORDERA BLES [facility] LABORATORY [facility] Lab 500 [facility], Room [address] [address] * Ferritin (02/10/2024 10:23 AM CDT) Ferritin 186 31 - 409 ng/mL 02/10/2024 3:05 PM CDT U LABORATORY Blood (Portacath) IVAD (Port) / Unknown 02/10/2024 10:23 AM CDT 02/10/2024 10:35 AM CDT Dylan IBARRA LAB - BLOOD ORDERA BLES U LABORATORY [facility] Lab 500 [facility], Room [address] [address] * (ABNORMAL) Iron & Iron Binding Capacity (02/10/2024 10:23 AM CDT) Iron 16(L) 61 - 157 ug/dL 02/10/2024 11:21 AM CDT LABORATORY Iron Binding Capacity 238(L) 240 - 430 ug/dL 02/10/2024 11:21 AM CDT LABORATORY Iron Sat Index 7(L) 15 - 46 % 02/10/2024 11:21 AM CDT LABORATORY Blood (Portacath) IVAD (Port) / Unknown 02/10/2024 10:23 AM CDT 02/10/2024 10:35 AM CDT Dylan IBARRA LAB - BLOOD ORDERA BLES LABORATORY [facility] Acute Care Lab [address] Lab (1st floor, no room number) [place] [address], [facility] documented in this encounter Visit Diagnoses Diagnosis Anemia in neoplastic disease- Primary Iron deficiency anemia due to chronic blood loss Iron deficiency anemia secondary to blood loss (chronic) documented in this encounter Care Teams Short Haul Driver Relationship Specialty Start Date End Date Votel, Bhavin Ford [address] [place] [address] PCP - General Family Medicine 12/28/23 Alvaro Clark MD 420 [facility] [place] [address] [place] [address] Assigned Surgical Provider 07/24/23 Ky Torres MD 420 [facility] 480 [place], [place] [address] Assigned Cancer Care Provider 01/22/24 documented as of this encounter
--- OUTSIDE RECORDS SUMMARY | 2024-03-11 12:02 | XMS_ITS | Encounter Summary ---
Author Organization [place] Address [address] [place] [address]. [place] [address] Care Team Providers Care Pulmonary Fellow Name Role Phone Alvaro Clark MD Unavailable Bhavin Gardner Primary Care Provider [phone] Ky Torres MD Unavailable [phone] Reason for Visit * Reason Comments Labs Only * Treatment and Therapy Plans (Routine) - Authorized Specialty Diagnoses / Procedures Referred By Contac t Referred To Contact Infusion Therapy Diagnoses Malignant neoplasm of anterior wall of urinary bladder (H) Procedures ZZC INJECTION, NIVOLUMAB 1MG Ky Torres MD [address] [facility] 480 [place] [address] Rh Cancer Infus [facility]tr [place] [address] [place] [address] Referral ID Status Reason Start Date Expiration Date V isits Requested Visits Authorized [id number] Authorized 01/15/2024 05/31/2024 99 99 Encounter Details Date Type Department Care Team (Late st Contact Info) Description 02/10/2024 10:15 AM CDT Lab [facility] Medical [place] [address] [place] [address] Dylan Guerin PA 909 [place], [place] [address] Malignant neoplasm of anterior wall of urinary bladder (H) (Primary Dx) Social [...] st Contact Info) Description 04/08/2024 1:00 PM DISTANCE EDUCATION COORDINATOR Lab [address] [place] [phone] Yessica Mcleod PA-C [address] [place] [address] 04/08/2024 1:30 PM DISTANCE EDUCATION COORDINATOR Oncology Visit [place] [address] [place] [address] [place] [address] Dylan Guerin PA [address] [place] [address] 04/08/2024 1:30 PM DISTANCE EDUCATION COORDINATOR Infusion Therapy Visit [place] [address] [place] [address] [place] [address] Ky Torres MD [address] [address] 05/02/2024 10:30 AM DISTANCE EDUCATION COORDINATOR Lab [address] [place] [address] Ky Torres MD 420 [facility] 480 [place] [address] 05/02/2024 11:20 AM DISTANCE EDUCATION COORDINATOR Appointment [facility] Center Imaging [address] [place] [address] [place] [address] Ky Torres MD [address] [place] [facility] 480 [place] [address] 05/06/2024 9:30 AM DISTANCE EDUCATION COORDINATOR Lab [address] [place] [phone] Ky Torres MD 420 [facility] 480 [place] [address] 05/06/2024 10:00 AM DISTANCE EDUCATION COORDINATOR Oncology Visit [address] [facility] [place] [address] Ky Torres MD 420 [facility] 480 [place] [address] 05/06/2024 10:30 AM DISTANCE EDUCATION COORDINATOR Infusion Therapy Visit [address] [place] [address] Ky Torres MD [address] [place] [facility] 480 [place] [address] documented as of this encounter Visit Diagnoses Diagnosis Malignant neoplasm of anterior wall of urinary bladder (H)- Primary Malignant neoplasm of anterior wall of urinary bladder documented in this encounter Administered Medications Inactive Administered Medications - up to 3 most recent administrations Medication Order MAR Action Action Date Dose Rate Site heparin lock flush 100 unit/mL injection 5 mL 5 mL, Intracatheter, ONCE PRN, To de-access CVC Impanted port or lock each lumen, Starting on Thu02/10/24 at 1024, PORT: to de-access, instill 5 mL before PORT needle is removed and every 28 days. Apheresis: only for use when patient is NOT under care of apheresis services; after a 10 mL NS flush, lock each lumen of the catheter with 5 mL. $Given 02/10/2024 10:25 AM CDT 5 mLs sodium chloride (PF) 0.9% PF flush 3-20 mL 3-20 mL, Intracatheter, EVERY 1 MIN PRN, line flush, post meds or blood draw, Starting on Thu02/10/24 at 1024, PIV: 3 mL after each use & [...] patency; 20 mL after blood draw. $Given 02/10/2024 10:24 AM CDT 20 mLs documented in this encounter Care Teams Pulmonary Fellow Relationship Specialty Start Date End Date VotelBhavin [address] [place] [address] PCP - General Family Medicine 12/28/23 Alvaro Clark MD [address] [place] [address] 394 [place], [place] [address] Assigned Surgical Provider 07/24/23 Ky Torres MD 420 [facility] 480 [place] [address] Assigned Cancer Care Provider 01/22/24 documented as of this encounter
--- OUTSIDE RECORDS SUMMARY | 2024-03-11 12:02 | XMS_ITS | Encounter Summary ---
Author Organization [place] Address [address] [place] [address] Care Team Providers Care Parliamentary Archivist Name Role Phone Alvaro Clark MD Unavailable Bhavin Gardner Primary Care Provider [phone] Ky Torres MD Unavailable [phone] Reason for Visit * Reason Onset Date Comments Symptoms 01/22/2024 Encounter Details Date Type Department Care Team (Late st Contact Info) Description 01/22/2024 Telephone [facility] [place] [address] [place] [address] [facility] [place] [address] Alvaro Clark MD 420 [facility] 394 [place] [address] Symptoms Social History Tobacco Use [...] update. States that he was seen in [place] today. Provider who saw pt felt that [...] with plan and will be seen in [place]. Patient verbalized understanding and agreement with plan. Patient was instructed to call the clinicwith any questions, concerns, or worsening symptoms. Will route update to care team. Jami Oseguera RN on 01/22/2024 at 10:44 AM documented in this encounter Plan of Treatment Upcoming Encounters Date Type Department Care Team (Late st Contact Info) Description 04/08/2024 1:00 PM CLINICAL LABORATORY SCIENTIST Lab [place] [address] [place] [place] [address] Yessica Mcleod PA-C [address] [place] [address] [phone] 04/08/2024 1:30 PM CLINICAL LABORATORY SCIENTIST Oncology Visit [place] [address] [place] [phone] Dylan Guerin PA [address] [place] [address] [phone] 04/08/2024 1:30 PM CLINICAL LABORATORY SCIENTIST Infusion Therapy Visit [place] [address] [place] [place] [address] Ky Torres MD 420 [facility] 480 [place], [place] [address] 05/02/2024 10:30 AM CLINICAL LABORATORY SCIENTIST Lab [address] [place] [address] Ky Torres MD [address] [place] [address] [facility] 480 [place] [address] 05/02/2024 11:20 AM CLINICAL LABORATORY SCIENTIST Appointment [facility] Imaging [address] [place] [place] [address] Ky Torres MD [address] [place] [address] [facility] 480 [place], [place] [address] 05/06/2024 9:30 AM CLINICAL LABORATORY SCIENTIST Lab [address] [place] 200 [place] [address] Ky Torres MD [address] [place] [address] [facility] 480 [place] [address] 05/06/2024 10:00 AM CLINICAL LABORATORY SCIENTIST Oncology Visit [address] 200 [place] [address] Ky Torres MD [address] [place] [address] [facility] 480 [place] [address] 05/06/2024 10:30 AM CLINICAL LABORATORY SCIENTIST Infusion Therapy Visit [address] [place] 200 [place] [address] Ky Torres MD [address] [place] [address] [facility] 480 [place] [address] documented as of this encounter Visit Diagnoses Not on filedocumented in this encounter Care Teams Parliamentary Archivist Relationship Specialty Start Date End Date Votel, Bhavin Ford [address] [place] [address] PCP - General Family Medicine 12/28/23 Alvaro Clark MD 420 [facility] 394 [place] [address] Assigned Surgical Provider 07/24/23 Ky Torres MD [address] [address] Assigned Cancer Care Provider 01/22/24 documented as of this encounter
--- OUTSIDE RECORDS SUMMARY | 2024-03-11 12:02 | XMS_ITS | Encounter Summary ---
Author Organization [place] Address [address] [place] [address] Care Team Providers Care General Activities Therapist Name Role Phone Alvaro Clark MD Unavailable Yessica Mcleod PA-C Unavailable Bhavin Gardner Primary Care Provider [phone] Reason for Visit * Reason Onset Date Comments Symptoms 01/15/2024 Encounter Details Date Type Department Care Team (Late st Contact Info) Description 01/15/2024 Telephone [facility] [address] 200 [facility] [place] [address] Alvaro Clark MD [address] [facility] [address] [place] [address] Symptoms Social History Tobacco Use [...] Almonte RN - 01/18/2024 12:32 PM CDT [facility]: Urology Regional Ehs Manager faxed DME order to [facility] for CIC supplies/irrigation orders. Faxed confirmed via RightFax 01/18/24 Charlie Almonte RN, BSN. RN Laminating Machine Feeder [facility] documented in this encounter Plan of Treatment Upcoming Encounters Date Type Department Care Team (Late st Contact Info) Description 04/08/2024 1:00 PM MANAGER LAW Lab [address] [place] [address] Yessica Mcleod PA-C [address] [place] [address]335 04/08/2024 1:30 PM MANAGER LAW Oncology Visit [address] [place] [address] Dylan Guerin PA [address] [place], [place] 37[address] 04/08/2024 1:30 PM MANAGER LAW Infusion Therapy Visit [address] 200 [place] [address] Ky Torres MD [address] [place] [address] 05/02/2024 10:30 AM MANAGER LAW Lab [place] [address] [place] [address] [place] [address] Ky Torres MD [address] [address] 05/02/2024 11:20 AM MANAGER LAW Appointment [facility] Imaging [address] [place] [address] [place] [address] Ky Torres MD 420 [facility] 480 [place] [address] 05/06/2024 9:30 AM MANAGER LAW Lab [address] [address] [place] [address] Ky Torres MD 420 [facility] 480 [place], [place] [address] 05/06/2024 10:00 AM MANAGER LAW Oncology Visit [address] 200 [place] [address] Ky Torres MD [address] [address] 05/06/2024 10:30 AM MANAGER LAW Infusion Therapy Visit [address] [place] [address] Ky Torres MD [address] [address] documented as of this encounter Visit Diagnoses Not on filedocumented in this encounter Care Teams General Activities Therapist Relationship Specialty Start Date End Date Votel, Bhavin [place] [address] PCP - General Family Medicine 12/28/23 Alvaro Clark MD 420 [facility] [address] [place] [address] Assigned Surgical Provider 07/24/23 Yessica Mcleod PA-C [address] [place] [address] Assigned Cancer Care Provider 12/22/23 01/21/24 documented as of this encounter
--- OUTSIDE RECORDS SUMMARY | 2024-03-11 12:02 | XMS_ITS | Encounter Summary ---
Author Organization [place] Address [address] [place] [address] Care Team Providers Care Furniture Upholsterer Name Role Phone Alvaro Clark MD Unavailable Bhavin Gardner Primary Care Provider [phone] Ky Torres MD Unavailable [phone] Encounter Details Date Type Department Care Team (Late st Contact Info) Description 01/25/2024 Telephone [facility] [address] 4[address] [place] [address] Alvaro Clark MD 420 [facility] 394 [place] [address] Social History Tobacco Use Types [...] follow up on.Pt was given nursetriage number [phone]. documented in this encounter Plan of Treatment Upcoming Encounters Date Type Department Care Team (Late st Contact Info) Description 04/08/2024 1:00 PM PLATFORM MATERIAL HANDLER MANAGER Lab [address] 200 [place] [address] Yessica Mcleod PA-C 909 [place] [address] 04/08/2024 1:30 PM PLATFORM MATERIAL HANDLER MANAGER Oncology Visit [address] 200 [place] [address] Dylan Guerin PA 909 [place], [place] 89[address] 04/08/2024 1:30 PM PLATFORM MATERIAL HANDLER MANAGER Infusion Therapy Visit [address] 200 [place] [address] Ky Torres MD [address] [place] [address] 05/02/2024 10:30 AM PLATFORM MATERIAL HANDLER MANAGER Lab [address] 200 [place] [address] Ky Torres MD [address] 16[address] 05/02/2024 11:20 AM PLATFORM MATERIAL HANDLER MANAGER Appointment [facility] Imaging [address] [place] [address] [place] [address] Ky Torres MD 420 [facility] 480 [place] [address] 05/06/2024 9:30 AM PLATFORM MATERIAL HANDLER MANAGER Lab [address] 200 [place] [address] Ky Torres MD 420 [facility] [place] 480 [place] [address] 05/06/2024 10:00 AM PLATFORM MATERIAL HANDLER MANAGER Oncology Visit [address] 200 [place] [address] Ky Torres MD [address] [address] 05/06/2024 10:30 AM PLATFORM MATERIAL HANDLER MANAGER Infusion Therapy Visit [address] 200 [place] [address] Ky Torres MD [address] [address] documented as of this encounter Visit Diagnoses Not on filedocumented in this encounter Care Teams Furniture Upholsterer Relationship Specialty Start Date End Date Votel, Bhavin [place] [address] PCP - General Family Medicine 12/28/23 Alvaro Clark MD 420 [facility] 394 [place] [address] Assigned Surgical Provider 07/24/23 Ky Torres MD 420 [facility] [place] 480 [place] [address] Assigned Cancer Care Provider 01/22/24 documented as of this encounter
--- OUTSIDE RECORDS SUMMARY | 2024-03-11 12:02 | XMS_ITS | Encounter Summary ---
Author Organization [place] Address [address] [place] [address] Care Team Providers Care Escrow Secretary Name Role Phone Alvaro Clark MD Unavailable Bhavin Gardner Primary Care Provider [phone] Ky Torres MD Unavailable [phone] Reason for Visit * Reason Onset Date Comments Call Back 02/05/2024 Encounter Details Date Type Department Care Team (Late st Contact Info) Description 02/05/2024 [facility] [address] 4[address] [place] [address] Alvaro Clark MD 420 [facility] 394 [place] [address] Call Back Social History Tobacco Use Types Packs/Day Years [...] Telephone Encounter - Charlie Almonte RN - 02/05/2024 3:26 PM CDT [facility]: Urology Truck Driver Salesperson spoke with Alesha Nurse at ER. Per Alesha ER provider was able to speak with Dr. Clark regarding patient. Patient was started on two week course of Keflex of possible UTI/ cystitis. Patient was discharged home today 02/05/24. Charlie Almonte, RN, BSN. RN Automotive Glass Specialist [facility] [phone] * Telephone Encounter - Paresh Her - 02/05/2024 1:49 PM CDT [facility] Phone Message May a detailed message be left on voicemail: no Reason for Call: Other: Alesha magallon nurse from the ER called to get in contact with Dr Clark. Please call her back at [phone]. Action Taken: Message routed to: [facility] Urology Travel Screening: Not Applicable Date of Service: documented in this encounter Plan of Treatment Upcoming Encounters Date Type Department Care Team (Late st Contact Info) Description 04/08/2024 1:00 PM PRODUCT DEMONSTRATOR Lab [place] [address] [place] [address] [place] [address] Yessica Mcleod PA-C [address] [place] [address] 04/08/2024 1:30 PM PRODUCT DEMONSTRATOR Oncology Visit [place] [address] [place] [address] [place] [address] Dylan Guerin PA [address] [place] [phone] 04/08/2024 1:30 PM PRODUCT DEMONSTRATOR Infusion Therapy Visit [place] [address] [place] [address] [place] [address] Ky Torres MD [address] [place] [address] [facility] 480 [place] [address] 05/02/2024 10:30 AM PRODUCT DEMONSTRATOR Lab [address] [place] [address] Ky Torres MD [address] [address] [facility] 480 [place] [address] 05/02/2024 11:20 AM PRODUCT DEMONSTRATOR Appointment [facility] Imaging [address] [place] [address] [place] [address] Ky Torres MD [address] [address] [facility] [address] [place] [address] 05/06/2024 9:30 AM PRODUCT DEMONSTRATOR Lab [address] [place] [address] Ky Torres MD [address] [place] [address] [facility] [address] [place] [address] 05/06/2024 10:00 AM PRODUCT DEMONSTRATOR Oncology Visit [address] [place] [address] Ky Torres MD [address] [place] [address] [facility] 480 [place] [address] 05/06/2024 10:30 AM PRODUCT DEMONSTRATOR Infusion Therapy Visit [address] 200 [place] [address] Ky Torres MD 420 [facility] 480 [place] [address] documented as of this encounter Visit Diagnoses Not on filedocumented in this encounter Care Teams Escrow Secretary Relationship Specialty Start Date End Date Votel, Bhavin Ford [address] [place] [address] PCP - General Family Medicine 12/28/23 Alvaro Clark MD [address] [place] [address] 394 [place] [address] Assigned Surgical Provider 07/24/23 Ky Torres MD [address] [place] [address] Assigned Cancer Care Provider 01/22/24 documented as of this encounter
--- OUTSIDE RECORDS SUMMARY | 2024-03-11 12:02 | XMS_ITS | Encounter Summary ---
Author Organization [place] Address [address] [place] [address] Care Team Providers Care Registered Nurse Renal Name Role Phone Alvaro Clark MD Unavailable Yessica Mcleod PA-C Unavailable Bhavin Gardner Primary Care Provider [phone] Reason for Referral * Diagnostic Imaging CT Scan (Routine) - Authorized Specialty Diagnoses / Procedures Referred By Contkatlyn t Referred To Contact Radiology. Diagnoses Urothelial cancer (H) Prostate cancer (H) Procedures CT Chest/Abdomen/Pelvis w Contrast Ky Torres MD 420 [facility] [address] [address] Referral ID Status Reason Start Date Expiration Date V isits Requested Visits Authorized [id number] Authorized 01/18/2024 01/17/2025 1 1 Reason for Visit * Reason Comments Oncology Clinic Visit Encounter Details Date Type Department Care Team (Late st Contact Info) Description 01/15/2024 11:30 AM CDT Oncology Visit [facility] [address] [place] [address] [facility] [place] [address] Ky Torres MD 420 [facility] SE [facility] 480 [place] [address] Urothelial cancer (H) (Primary Dx); Prostate cancer (H); Malignant neoplasm of anterior wall of urinary bladder (H) Social History Tobacco [...] with ddMVAC followed by cystoprostatectomy [id number] disease [facility]Y FOLLOW-UP VISIT NOTE PATIENT NAME: Oleg Richard DATE OF VISIT: Jan 15, 2024 DATE OF : 1960 REFERRING PROVIDER: Alvaro Clark MD [address] [address] CANCER TYPE: Urothelial cancer from bladder STAGE: Cancer Staging Bladder cancer (H) Staging form: Urinary Bladder, AJCC 8th Edition - Pathologic stage from 01/15/2024: Stage IIIA (ypT4a, pN0, cM0) - Signed by Ky Torres MDon 01/18/2024 TREATMENT SUMMARY: Oleg presented with urinary retention to the [facility] ED on 12/26/23. He had urinary urgency andfrequency for the previous few weeks. He was noted to have urinary retention and blood in urine without any infection. He had a CT scan done in ED which showed decompressed bladder with parry and wasotherwise unremarkable. He then was seen by Carolina Arrieta in urology at [facility] and referred for cystoscopy. He had cystoscopy [...] results for input(s): CEA in the last 27742 hours. Results for orders placed or performed [...] Agency Case Report Surgical Pathology Report Case: [id number] Authorizing Provider: Alvaro Clark MD Collected: 12/22/2023 [...] post neoadjuvant ddMVAC and cystoprostatectomy with neobladder [id number] disease *prostate stroma involvement Incidental prostate cancer [...] documenting in electronic medical record. Ky Torres Construction Specialist and Medical Oncologist [facility] documented in this encounter Plan of Treatment Upcoming Encounters Date Type Department Care Team (Late st Contact Info) Description 04/08/2024 1:00 PM CHEMICAL ENGINEERING TEACHER Lab [address] [place] [address] Yessica Mcleod PA-C [address] [place] [phone] 04/08/2024 1:30 PM CHEMICAL ENGINEERING TEACHER Oncology Visit [place] [address] [place] [address] [place] [address] Dylan Guerin PA [address] [place] [address] 04/08/2024 1:30 PM CHEMICAL ENGINEERING TEACHER Infusion Therapy Visit [place] [address] [place] [address] [place] [address] Ky Torres MD 420 [facility] 480 [place], [place] [address] 05/02/2024 10:30 AM CHEMICAL ENGINEERING TEACHER Lab [address] [place] [address] Ky Torres MD [address] [place] [address] [facility] 480 [place], [place] [address] 05/02/2024 11:20 AM CHEMICAL ENGINEERING TEACHER Appointment [facility] Imaging [address] [place] [address] [place] [address] Ky Torres MD [address] [place] [address] [facility] [address] [place] [address] 05/06/2024 9:30 AM CHEMICAL ENGINEERING TEACHER Lab [address] [place] [address] Ky Torres MD [address] [place] [address] [facility] 480 [place], [place] [address] 05/06/2024 10:00 AM CHEMICAL ENGINEERING TEACHER Oncology Visit [address] [place] [place] [address] Ky Torres MD [address] [place] [address] [facility] [address] [place] [address] 05/06/2024 10:30 AM CHEMICAL ENGINEERING TEACHER Infusion Therapy Visit [address] [place] [address] Ky Torres MD [address] [place] [address] [facility] 480 [place], [place] [address] Scheduled Orders Name Type Priority Associated Diagnoses Order Schedule CT Chest/Abdomen/Pelvis w Contrast Imaging Routine Urothelial cancer (H) Prostate cancer (H) Expected: 04/19/2024 (Approximate), Expires: 01/17/2025 Cytology, non-gynecologic Pathology and Cytology Routine Urothelial cancer (H) Prostate cancer (H) 5 Occurrences starting 01/18/2024 until 01/17/2025 PSA tumor marker Lab Routine Urothelial cancer (H) Prostate cancer (H) 5 Occurrences starting 01/18/2024 until 01/17/2025, 1 completed Testosterone total Lab Routine Urothelial cancer (H) Prostate cancer (H) 5 Occurrences starting 01/18/2024 until 01/17/2025, 1 completed CBC with Platelets & Differential Lab Panel Routine Urothelial cancer (H) Prostate cancer (H) 12 Occurrences starting 01/18/2024 until 01/17/2025, 1 completed Comprehensive metabolic panel Lab Routine Urothelial cancer (H) Prostate cancer (H) 12 Occurrences starting 01/18/2024 until 01/17/2025, 1 completed Lactate Dehydrogenase Lab Routine Urothelial cancer (H) [...] documented in this encounter Results * (ABNORMAL) Comprehensive metabolic panel (02/10/2024 10:23 AM CDT) Sodium 136 135 - 145 mmol/L 02/10/2024 10:59 AM CDT LABORATORY Potassium 4.4 3.4 - 5.3 mmol/L 02/10/2024 10:59 AM CDT LABORATORY Carbon Dioxide (CO2) 26 22 - 29 mmol/L 02/10/2024 10:59 AM CDT [facility]ORAT[facility] Anion Gap 11 7 - 15 mmol/L 02/10/2024 10:59 AM CDT LABORATORY Urea Nitrogen 19.8 8.0 - 23.0 mg/dL 02/10/2024 10:59 AM CDT [facility] Creatinine 0.89 0.67 - 1.17 mg/dL 02/10/2024 10:59 AM CDT [facility] GFR Estimate >90 >60 mL/min/1.7 3m2 02/10/2024 10:59 AM CDT [facility] Comment:eGFR calculated usin 2020 [...] - 107 mmol/L 02/10/2024 10:59 AM CDT LABORATORY Glucose 97 70 - 99 mg/dL 02/10/2024 10:59 AM CDT [facility] LABOR[facility] Alkaline Phosphatase 76 40 - 150 U/L 02/10/2024 10:59 AM CDT LABORATORY AST 25 0 - 45 U/L 02/10/2024 10:59 AM CDT [facility]OR[facility] ALT 18 0 - 70 U/L 02/10/2024 10:59 AM CDT LABORATORY Protein Total 6.8 6.4 - 8.3 g/dL 02/10/2024 10:59 AM CDT LABORATORY Albumin 3.3(L) 3.5 - 5.2 g/dL 02/10/2024 10:59 AM CDT LABORATORY Bilirubin Total <0.2 <=1.2 mg/dL 02/10/2024 10:59 AM CDT LABORATORY Blood (Portacath) IVAD (Port) / Unknown 02/10/2024 10:23 AM CDT 02/10/2024 10:35 AM CDT Ky Torres MD LAB - BLOOD ORDERA BLES LABORATORY [facility] Acute Care Lab [address] Lab (1st floor, no room number) [place] [address], [facility] * (ABNORMAL) Testosterone total (02/10/2024 10:23 AM CDT) Testosterone Total 69(L) 240 - 950 ng/dL 02/14/2024 7:01 AM CDT [facility] Blood (Portacath) IVAD (Port) / Unknown 02/10/2024 10:23 AM CDT 02/10/2024 10:35 AM CDT Ky Torres MD LAB - BLOOD ORDERA BLEAris Performing Organization Address City/[facility] Co de Phone Number [facility] [address] [facility], Room [address] [id number] * PSA tumor marker (02/10/2024 10:23 AM CDT) [facility] PSA Tumor Marker 0.02 0.00 - 4.50 [...] interchangeably. Ky Torres MD LAB - BLOOD ORDERSaran BLEAris Performing Organization Address City/[facility]/ZIP Co de Phone Number [facility] [place] [facility] 500 [facility], Room [address] [address]RUST * (ABNORMAL) Urine Culture (01/15/2024 1:11 PM CDT) Pathologist [facility] Culture >100,000 CFU/mL Non lactose fermenting gram [...] - MICRO GENERAL ORDERABLES [facility] IDD LABORATORY [facility] Inf. Diseases Diag. Lab 500 [facility], [address] [place] [address], [facility] documented in this encounter Visit Diagnoses Diagnosis Urothelial cancer (H)- Primary Malignant neoplasm of other specified sites of urinary organs Prostate cancer (H) Malignant neoplasm of prostate Malignant neoplasm of anterior wall of urinary bladder (H) Malignant neoplasm of anterior wall of urinary bladder documented in this encounter Care Teams Registered Nurse Renal Relationship Specialty Start Date End Date Votel, Bhavin Ford [address] [place] [address] PCP - General Family Medicine 12/28/23 Alvaro Clark MD [address] [place] [address] [id number] Assigned Surgical Provider 07/24/23 Yessica Mcleod PA-C [address] [place] [address] [phone] Assigned Cancer Care Provider 12/22/23 01/21/24 documented as of this encounter
--- OUTSIDE RECORDS SUMMARY | 2024-03-11 12:02 | XMS_ITS | Encounter Summary ---
Author Organization [facility] Address [address] [place] [address] Care Team Providers Care Shipping Clerk Name Role Phone Alvaro Clark MD Unavailable Yessica Mcleod PA-C Unavailable Bhavin Gardner Primary Care Provider [phone] Reason for Visit * Reason Comments Oncology Clinic Visit Encounter Details Date Type Department Care Team (Late st Contact Info) Description 01/15/2024 10:30 AM CDT Office Visit [facility] [address] 200 [facility] [place] [address] Alvaro Clark MD 420 [facility] 394 [place] [address] Urothelial cancer (H) (Primary Dx); [...] above Alvaro Clark MD Department of Urology [facility] * Charlie Almonte RN - 01/15/2024 10:30 [...] contact us with any questions or concerns. Milieu Technician faxed medical DME order for home CIC supplies. Charlie Almonte RN, BSN. RN Doctor Of Naprapathic Medicine [facility] documented in this encounter Nursing Notes * [...] not needed today. Pharmacy name entered into [facility]: [place], [place] - [facility] Frailty Screening: Is the patient here for [...] st Contact Info) Description 04/08/2024 1:00 PM RN TELEPHONIC Lab [address] [place] [address] Yessica Mcleod PA-C [address] [place] [address] 04/08/2024 1:30 PM RN TELEPHONIC Oncology Visit [address] [place] [address] Dylan Guerin PA [address] [place] [address]805 04/08/2024 1:30 PM RN TELEPHONIC Infusion Therapy [place] [address] 200 [place] [address] Ky Torres MD [address] [place] [address] 799735 05/02/2024 10:30 AM RN TELEPHONIC Lab [address] [place] [address] Ky Torres MD [address] [facility] 480 [place] [address] 05/02/2024 11:20 AM RN TELEPHONIC Appointment [facility] Imaging [address] [place] [address] Ky Torres MD [address] [facility] 480 [place], [place] [address] 05/06/2024 9:30 AM RN TELEPHONIC Lab [address] [place] [address] Ky Torres MD [address] [place] [address] [address] 05/06/2024 10:00 AM RN TELEPHONIC Oncology Visit [address] [place] [address] Ky Torres MD [address] [place] [address] [address] 05/06/2024 10:30 AM RN TELEPHONIC Infusion Therapy Visit [address] [place] [address] Ky Torres MD [address] [facility] 480 [place] [address] documented as of this encounter Visit Diagnoses Diagnosis Urothelial cancer (H)- Primary Malignant neoplasm of other specified sites of urinary organs Urinary retention Retention of urine, unspecified documented in this encounter Care Teams Shipping Clerk Relationship Specialty Start Date End Date Votel, Bhavin Ford [address] [place] [address] PCP - General Family Medicine 12/28/23 Alvaro Clark MD [address] [address] Assigned Surgical Provider 07/24/23 Yessica Mcleod PA-C [address] [place] [address] Assigned Cancer Care Provider 12/22/23 01/21/24 documented as of this encounter
--- OUTSIDE RECORDS SUMMARY | 2024-03-11 12:02 | XMS_ITS | Encounter Summary ---
Author Organization [facility] Address [address] [place] [address] Care Team Providers Care Press Tender Star Signal Name Role Phone Alvaro Clark MD Unavailable Yessica Mcleod PA-C Unavailable Bhavin Gardner Primary Care Provider [phone] Encounter Details Date Type Department Care Team [...] st Contact Info) Description 04/08/2024 1:00 PM SPRAYING MACHINE OPERATOR Lab [facility] [place] [address] [place] [phone] Yessica Mcleod, PAJose Luis [address] [place] [address] 1779[address] 04/08/2024 1:30 PM SPRAYING MACHINE OPERATOR Oncology Visit [place] [address] [address] [facility] [place] [phone] Dylan Guerin PA 909 [place], [place] [address] 04/08/2024 1:30 PM SPRAYING MACHINE OPERATOR Infusion Therapy Visit [address] [place] [address] Ky Torres MD [address] [facility] 480 [place] [address] 05/02/2024 10:30 AM SPRAYING MACHINE OPERATOR Lab [address] [place] [address] Ky Torres MD 420 [facility] [address] [address] 05/02/2024 11:20 AM SPRAYING MACHINE OPERATOR Appointment [facility] Imaging [address] [place] [address] Ky Torres MD 420 [facility] SE [address] [address] 05/06/2024 9:30 AM SPRAYING MACHINE OPERATOR Lab [address] [place] [address] Ky Torres MD [address] [place] [address] [address] 05/06/2024 10:00 AM SPRAYING MACHINE OPERATOR Oncology Visit [address] [place] [address] Ky Torres MD 420 [facility] 480 [place] [address] 05/06/2024 10:30 AM SPRAYING MACHINE OPERATOR Infusion Therapy Visit [facility] [address] [place] [address] Ky Torres MD [address] [address] documented as of this encounter Visit Diagnoses Not on filedocumented in this encounter Care Teams Press Tender Star Signal Relationship Specialty Start Date End Date Votel, Bhavin Ford [address] [place] [address] PCP - General Family Medicine 12/28/23 Alvaro Clark MD [address] [address] Assigned Surgical Provider 07/24/23 Yessica Mcleod PAJannetC [address] [place] [address] Assigned Cancer Care Provider 12/22/23 01/21/24 documented as of this encounter
--- OUTSIDE RECORDS SUMMARY | 2024-03-11 12:02 | XMS_ITS | Encounter Summary ---
Author Organization [facility] Address [address] [place] [address] Care Team Providers Care Substation Operator Chief Name Role Phone Alvaro Clark MD Unavailable Bhavin Gardner Primary Care Provider [phone] Ky Torres MD Unavailable [phone] Encounter Details Date Type Department Care Team (Late st Contact Info) Description 02/10/2024 Orders Only [address] 200 [facility] [place] [address] Charlie Almonte, CARLOS Prostate cancer (H) (Primary Dx); Hypothyroidism due to medication Social History Tobacco Use Types Packs/Day Years [...] st Contact Info) Description 04/08/2024 1:00 PM EMBLEM MAKER Lab [facility] [address] [place] [address] Yessica Mcleod, PAJannetC [address] [place] [address] 04/08/2024 1:30 PM EMBLEM MAKER Oncology Visit [address] [place] [phone] Dylan Guerin PA 909 [place] [address] 04/08/2024 1:30 PM EMBLEM MAKER Infusion Therapy Visit [address] [place] [address] Ky Torres MD [address] [place] [address] [address] 05/02/2024 10:30 AM EMBLEM MAKER Lab [address] [place] [address] Ky Torres MD [address] [address] [address] 05/02/2024 11:20 AM EMBLEM MAKER Appointment [facility] Imaging [address] [place] [address] Ky Torres MD [address] [facility] 480 [place] [address] 05/06/2024 9:30 AM EMBLEM MAKER Lab [address] [place] [address] Ky Torres MD [address] [facility] 480 [place] [address] 05/06/2024 10:00 AM EMBLEM MAKER Oncology Visit [address] 200 [facility] [place] [address] Ky Torres MD 420 [facility] 480 [place], [place] [address] 05/06/2024 10:30 AM EMBLEM MAKER Infusion Therapy Visit [facility] [address] [place] [address] Ky Torres MD [address] 3645[address] documented as of this encounter Results * TSH with free T4 reflex (02/10/2024 10:23 AM CDT) Pathologist [facility] TSH 2.32 0.30 - 4.20 uIU/mL 02/10/2024 11:05 AM CDT [facility] Blood (Portacath) IVAD (Port) / Unknown 02/10/2024 10:23 AM CDT 02/10/2024 10:35 AM CDT Ky Torres MD LAB - BLOOD ORDERA BLES [facility] Acute Care Lab [address] [facility] Lab (1st floor, no room number) [place] [address], [facility] * Lactate Dehydrogenase (02/10/2024 10:23 AM CDT) Pathologist [facility] Lactate Dehydrogenase 163 0 - 250 U/L 02/10/2024 10:59 AM CDT LABORATORY Blood (Portacath) IVAD (Port) / Unknown 02/10/2024 10:23 AM CDT 02/10/2024 10:35 AM CDT yK Torres MD LAB - BLOOD ORDERA BLES [facility] Acute Care Lab [address] [facility] Lab (1st floor, no room number) [place] [address], [facility] documented in this encounter Visit Diagnoses Diagnosis Prostate cancer (H)- Primary Malignant neoplasm of prostate Hypothyroidism due to medication documented in this encounter Care Teams Substation Operator Chief Relationship Specialty Start Date End Date Votel, Bhavin Ford [address] [place] [address] PCP - General Family Medicine 12/28/23 Alvaro Clark MD 420 [facility] 394 [place] [address] Assigned Surgical Provider 07/24/23 Ky Torres MD [address] [address] Assigned Cancer Care Provider 01/22/24 documented as of this encounter
--- OUTSIDE RECORDS SUMMARY | 2024-03-11 12:03 | XMS_ITS | Encounter Summary ---
Author Organization [facility] Address [address] [place] [address] Care Team Providers Care Box Lining Machine Feeder Name Role Phone Alvaro Clark MD Unavailable Yessica Mcleod PA-C Unavailable Bhavin Gardner Primary Care Provider [phone] Encounter Details Date Type Department Care Team [...] st Contact Info) Description 04/08/2024 1:00 PM DELIVERY DRIVER/SUPERVISOR Lab [facility] [place] [address] [place] [phone] Yessica Mcleod, PAJose Luis [address] [place] [address] 04/08/2024 1:30 PM DELIVERY DRIVER/SUPERVISOR Oncology Visit [place] [address] [address] [facility] [place] [phone] Dylan Guerin PA 909 [place], [place] 5096[address] 04/08/2024 1:30 PM DELIVERY DRIVER/SUPERVISOR Infusion Therapy Visit [address] [place] [address] Ky Torres MD [address] [facility] 480 [place] [address] 05/02/2024 10:30 AM DELIVERY DRIVER/SUPERVISOR Lab [address] [place] [address] Ky Torres MD 420 [facility] [address] [address] 05/02/2024 11:20 AM DELIVERY DRIVER/SUPERVISOR Appointment [facility] Imaging [address] [place] [address] Ky Torres MD 420 [facility] [address] [address] 05/06/2024 9:30 AM DELIVERY DRIVER/SUPERVISOR Lab [address] [place] [address] Ky Torres MD [address] [address] [address] 05/06/2024 10:00 AM DELIVERY DRIVER/SUPERVISOR Oncology Visit [address] 200 [place] [address] Ky Torres MD 420 [facility] 480 [place] [address] 05/06/2024 10:30 AM DELIVERY DRIVER/SUPERVISOR Infusion Therapy Visit [facility] [address] [place] [address] Ky Torres MD [address] [address] documented as of this encounter Visit Diagnoses Not on filedocumented in this encounter Care Teams Box Lining Machine Feeder Relationship Specialty Start Date End Date Votel, Bhavin Ford [address] [place] [address] PCP - General Family Medicine 12/28/23 Alvaro Clark MD [address] [address] Assigned Surgical Provider 07/24/23 Yessica Mcleod PAJannetC [address] [place] [address] Assigned Cancer Care Provider 12/22/23 01/21/24 documented as of this encounter
--- OUTSIDE RECORDS SUMMARY | 2024-03-11 12:03 | XMS_ITS | Encounter Summary ---
Author Organization [facility] Address [address] [place] [address] Care Team Providers Care Marriage Counselor Minister Name Role Phone Alvaro Clark MD Unavailable Yessica Mcleod PA-C Unavailable Bhavin Gardner Primary Care Provider [phone] Reason for Visit * Reason Comments Catheter Problem Encounter Details Date Type Department Care Team (Late st Contact Info) Description 12/30/2023 10:12 PM CDT - 12/31/2023 1:28 AM CDT [facility] Emergency Dept [address] [place] [address] Kandi Morales MD [facility] [address] [place], [place] [phone] Problem with Parry catheter, initial encounter (H) Discharge Disposition: Home [...] Date End Date acetaminophen (TYLENOL) 325 MG tabletIndications:Postoper ative state,Post-op pain Take 2 tablets (650 mg) [...] mouth as needed gabapentin (NEURONTIN) 100 MG capsuleIndications:Postope rative state,Post-op pain Take 1 capsule (100 mg) by mouth 3 times daily as needed for other (post op pain) 14 capsule 12/25/2023 methocarbamol (ROBAXIN) 750 MG tabletIndications:Postoper ative state,Post-op pain Take 1 tablet (750 mg) by mouth every 6 hours as needed for muscle spasms 14 tablet 12/25/2023 polyethylene glycol (MIRALAX) 17 GM/Dose powderIndications:Postoper ative state Take 17 g by mouth daily 510 g 12/25/2023 senna-docusate (SENOKOT-S/PERICOLACE) 8.6-50 MG tabletIndications:Postoper ative state Take 1 tablet by mouth 2 times daily 40 tablet 12/25/2023 apixaban ANTICOAGULANT (ELIQUIS) 2.5 MG tabletIndications:DVT-PE Prophylaxis Take 1 tablet (2.5 mg) by mouth 2 times daily 58 tablet 12/25/2023 02/10/2024 nitroFURantoin macrocrystal-monohydrate (MACROBID) 100 MG capsuleIndications:Periope rative Pharmacoprophylaxis Take 1 capsule (100 mg) by mouth daily 19 capsule 12/26/2023 02/10/2024 documented as of this encounter ED Notes [...] Documentation None Medical Decision Making / Diagnosis [facility] Diagnoses: None MIPS None MDM Oleg Richard [...] st Contact Info) Description 04/08/2024 1:00 PM ROPE MACHINE SETTER Lab [address] [place] [address] Yessica Mcleod PA-C 909 [place], [place] [address] 04/08/2024 1:30 PM ROPE MACHINE SETTER Oncology Visit [address] [place] [address] Dylan Guerin PA 909 [place], [place] [address]405 04/08/2024 1:30 PM ROPE MACHINE SETTER Infusion Therapy Visit [address] [place] [address] Ky Torres MD [address] 8355[address] 05/02/2024 10:30 AM ROPE MACHINE SETTER Lab [address] [place] [address] Ky Torres MD 420 [facility] 480 [place] [address] 05/02/2024 11:20 AM ROPE MACHINE SETTER Appointment [facility] Imaging [address] [place] [address] Ky Torres MD 420 [facility] 480 [place] [address] 05/06/2024 9:30 AM ROPE MACHINE SETTER Lab [address] [place] [address] Ky Torres MD [address] [address] 05/06/2024 10:00 AM ROPE MACHINE SETTER Oncology Visit [address] [place] [address] Ky Torres MD [address] [address] 05/06/2024 10:30 AM ROPE MACHINE SETTER Infusion Therapy Visit [address] [place] [address] Ky Torres MD [address] [place] [address] documented as of this encounter Visit Diagnoses Diagnosis Problem with Parry catheter, initial encounter (H) documented in this encounter Care Teams Marriage Counselor Minister Relationship Specialty Start Date End Date Votel, Bhavin Ford 1400 [place] [address] PCP - General Family Medicine 12/28/23 Alvaro Clark MD [address] [address] Assigned Surgical Provider 07/24/23 Yessica Mcleod PA-C [address] [place] [address] [phone] Assigned Cancer Care Provider 12/22/23 01/21/24 documented as of this encounter
--- OUTSIDE RECORDS SUMMARY | 2024-03-11 12:03 | XMS_ITS | Encounter Summary ---
Author Organization [employer] Address [address] [place] [address] Care Team Providers Care Test Engine Evaluator Name Role Phone Alvaro Clark MD Unavailable Yessica Mcleod PA-C Unavailable Bhavin Gardner Primary Care Provider [phone] Encounter Details Date Type Department Care Team [...] st Contact Info) Description 04/08/2024 1:00 PM UX DESIGNER Lab [facility]tr [place] [address] [place] [phone] Yessica Mcleod, PAJose Luis [address] [place] [address] 04/08/2024 1:30 PM UX DESIGNER Oncology Visit [place] [address] [address] [facility] [place] [phone] Dylan Guerin PA 909 [place], [place] 522925 04/08/2024 1:30 PM UX DESIGNER Infusion Therapy Visit [address] [place] [address] Ky Torres MD [address] [facility] 480 [place] [address] 05/02/2024 10:30 AM UX DESIGNER Lab [address] [place] [address] Ky Torres MD 420 [facility] [address] [address] 05/02/2024 11:20 AM UX DESIGNER Appointment [facility] Imaging [address] [place] [address] Ky Torres MD 420 [facility] [address] [address] 05/06/2024 9:30 AM UX DESIGNER Lab [address] [place] [address] Ky Torres MD [address] [address] [address] 05/06/2024 10:00 AM UX DESIGNER Oncology Visit [address] [place] [address] Ky Torres MD 420 [facility] 480 [place] [address] 05/06/2024 10:30 AM UX DESIGNER Infusion Therapy Visit [facility] Medical Ctr [facility] [address] [place] [address] Ky Torres MD [address] [address] documented as of this encounter Visit Diagnoses Not on filedocumented in this encounter Care Teams Test Engine Evaluator Relationship Specialty Start Date End Date Votel, Bhavin Ford [address] [place] [address] PCP - General Family Medicine 12/28/23 Alvaro Clark MD [address] [address] Assigned Surgical Provider 07/24/23 Yessica Mcleod PAJannetC [address] [place] [address] Assigned Cancer Care Provider 12/22/23 01/21/24 documented as of this encounter
--- OUTSIDE RECORDS SUMMARY | 2024-03-11 12:03 | XMS_ITS | Encounter Summary ---
Author Organization [facility] Address [address] [place] [address] Care Team Providers Care Hardware Assembler Name Role Phone Alvaro Clark MD Unavailable Yessica Mcleod PA-C Unavailable Bhavin Gardner Primary Care Provider [phone] Encounter Details Date Type Department Care Team (Late st Contact Info) Description 01/02/2024 Team Conference [facility] [address] 4th [place] [address] Guillaume Brenner MD [address] [place] [address] Social History Tobacco Use Types Packs/Day [...] st Contact Info) Description 04/08/2024 1:00 PM HEALTH CLINICIAN Lab [address] [place] [address] Yessica Mcleod PA-C [address] [place] [phone] 04/08/2024 1:30 PM HEALTH CLINICIAN Oncology Visit [address] [place] [address] Dylan Guerin PA [address] [place] [address] [id number] 04/08/2024 1:30 PM HEALTH CLINICIAN Infusion Therapy Visit [place] [address] [place] [address] Ky Torres MD [address] [place] [address] 714825 05/02/2024 10:30 AM HEALTH CLINICIAN Lab [address] [place] [address] Ky Torres MD 420 [facility] 480 [place] [address] 05/02/2024 11:20 AM HEALTH CLINICIAN Appointment [facility] Imaging [address] [place] [address] Ky Torres MD 420 [facility] 480 [place] [address] 05/06/2024 9:30 AM HEALTH CLINICIAN Lab [address] [place] [address] Ky Torres MD [address] [place] [address] [facility] 480 [place] [address] 05/06/2024 10:00 AM HEALTH CLINICIAN Oncology Visit [address] [place] [address] Ky Torres MD [address] [place] [address] [address] 05/06/2024 10:30 AM HEALTH CLINICIAN Infusion Therapy Visit [address] [place] [address] Ky Torres MD 420 [facility] [address] [place] [address] documented as of this encounter Visit Diagnoses Not on filedocumented in this encounter Care Teams Hardware Assembler Relationship Specialty Start Date End Date Votel, Bhavin ROSE: [phone] [address] [place] [address] PCP - General Family Medicine 12/28/23 Alvaro Clark MD [address] [address] Assigned Surgical Provider 07/24/23 Yessica Mcleod PA-C [address] [place] [address] Assigned Cancer Care Provider 12/22/23 01/21/24 documented as of this encounter
--- OUTSIDE RECORDS SUMMARY | 2024-03-11 12:03 | XMS_ITS | Encounter Summary ---
Author Organization [facility] Address [address] [place] [address] Care Team Providers Care Director Of Media Name Role Phone Alvaro Clark MD Unavailable Yessica Mcleod PA-C Unavailable Bhavin Gardner Primary Care Provider [phone] Reason for Referral * Diagnostic Imaging CT Scan (Routine) - Closed Specialty Diagnoses / Procedures Referred By Virgil ca Referred To Contact Radiology. 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) Procedures CT Chest/Abdomen/Pelvis w Contrast Yessica Mcleod PA-C [address] [place] [address]: [phone] Scan [address] [place] [address] Referral ID Status Reason Start Date Expiration Date Visits Re quested Visits Authorized [id number] Closed 11/27/2023 11/26/2024 1 1 Encounter Details Date Type Department Care Team (Latest Contact Info) Description 01/13/2024 1:02 PM CDT - 01/13/2024 11:59 PM CDT Hospital Encounter [facility] Imaging [address] [place] [phone] Yessica Mcleod, RONALD [address] [place] [address] Urothelial cancer (H); Malignant neoplasm of trigone [...] 12/26/2023 02/10/2024 documented as of this encounter Plan of Treatment Upcoming Encounters Date Type Department Care Team (Late st Contact Info) Description 04/08/2024 1:00 PM RETIREMENT ADMINISTRATOR Lab [place] [address] [place] [phone] Yessica Mcleod PA-C [address] [place] [phone] 04/08/2024 1:30 PM RETIREMENT ADMINISTRATOR Oncology Visit [place] [address] [place] [phone] Dylan Guerin PA [address] [place] [address] 04/08/2024 1:30 PM RETIREMENT ADMINISTRATOR Infusion Therapy Visit [place] [address] [place] [address] Ky Torres MD [address] [facility] [address] [place] [address] 05/02/2024 10:30 AM RETIREMENT ADMINISTRATOR Lab [address] [place] [address] Ky Torres MD [address] [facility] [address] [place] [address] 05/02/2024 11:20 AM RETIREMENT ADMINISTRATOR Appointment [facility] Imaging [address] [place] [address] Ky Torres MD [address] [facility] [address] [place] [address] 05/06/2024 9:30 AM RETIREMENT ADMINISTRATOR Lab [address] [place] [address] Ky Torres MD [address] [facility] [address] [place] [address] 05/06/2024 10:00 AM RETIREMENT ADMINISTRATOR Oncology Visit [address] [facility] [place] [address] Ky Torres MD [address] [facility] [address] [place] [address] 05/06/2024 10:30 AM RETIREMENT ADMINISTRATOR Infusion Therapy Visit [place] [address] [place] [address] Ky Torres MD [address] [address] documented as of this encounter Procedures Procedure [...] mLs documented in this encounter Care Teams Director Of Media Relationship Specialty Start Date End Date VotelBhavin [address] [place] [address] PCP - General Family Medicine 12/28/23 Alvaro Clark MD [address] [address] Assigned Surgical Provider 07/24/23 Yessica Mcleod PA-C [address] [place] [address] Assigned Cancer Care Provider 12/22/23 01/21/24 documented as of this encounter
--- OUTSIDE RECORDS SUMMARY | 2024-03-11 12:03 | XMS_ITS | Encounter Summary ---
Author Organization [facility] Address [address] [place] [address] Care Team Providers Care Medical Writer Name Role Phone Alvaro Clark MD Unavailable Yessica Mcleod PA-C Unavailable Bhavin Gardner Primary Care Provider [phone] Reason for Visit * Reason Onset Date Comments Medication Request 01/07/2024 Encounter Details Date Type Department Care Team (Late st Contact Info) Description 01/07/2024 Telephone [facility] [id number] [place] [address] [address] [facility] [place] [place] [phone] Alvaro Clark MD 420 [facility] [address] [place] [address] Medication Request Social History Tobacco [...] need refill by tomorrow. He talked with [facility] in [place] and was told that new Rx would [...] st Contact Info) Description 04/08/2024 1:00 PM FLOUR DISTRIBUTOR Lab [address] [place] [phone] Yessica Mcleod PAJannetC [address] [place] [address] 04/08/2024 1:30 PM FLOUR DISTRIBUTOR Oncology Visit [place] [address] [place] [address] [place] [phone] Dylan Guerin PA [address] [place] [address] 04/08/2024 1:30 PM FLOUR DISTRIBUTOR Infusion Therapy Visit [place] [address] [place] [address] [place] [address] Ky Torres MD [address] [place] [address] 05/02/2024 10:30 AM FLOUR DISTRIBUTOR Lab [place] [address] [place] [address] [place] [address] Ky Torres MD [address] [facility] [address] [place] [address] 05/02/2024 11:20 AM FLOUR DISTRIBUTOR Appointment [facility] Imaging [address] [place] [address] [place] [address] Ky Torres MD [address] [facility] [address] [place] [address] 05/06/2024 9:30 AM FLOUR DISTRIBUTOR Lab [address] [place] [address] Ky Torres MD 420 [facility] [address] [address] 05/06/2024 10:00 AM FLOUR DISTRIBUTOR Oncology Visit [address] [place] [address] Ky Torres MD [address] [place] [address] [address] 05/06/2024 10:30 AM FLOUR DISTRIBUTOR Infusion Therapy Visit [address] [place] [address] Ky Torres MD [address] [facility] [address] [place] [address] documented as of this encounter Visit Diagnoses Not on filedocumented in this encounter Care Teams Medical Writer Relationship Specialty Start Date End Date Votel, Bhavin ROSE: [phone] [place], [place] [phone] PCP - General Family Medicine 12/28/23 Alvaro Clark MD [address] [place] [address] Assigned Surgical Provider 07/24/23 Yessica Mcleod PA-C [address] [place] [address] Assigned Cancer Care Provider 12/22/23 01/21/24 documented as of this encounter
--- OUTSIDE RECORDS SUMMARY | 2024-03-11 12:03 | XMS_ITS | Encounter Summary ---
Author Organization [place] Address [address] [place] [address] Care Team Providers Care Talent Buyer Name Role Phone Alvaro Clark MD Unavailable Yessica Mcleod PA-C Unavailable Bhavin Gardner Primary Care Provider [phone] Reason for Visit * Reason Comments Oncology Clinic Visit Post opBladder can cer Encounter Details Date Type Department Care Team (Late st Contact Info) Description 01/01/2024 9:45 AM CDT Office Visit [facility] [address] [place] [address] [facility] [place] [phone] Alvaro Clark MD 420 [facility] [address] [place] [address] Urothelial cancer (H) (Primary Dx) [...] Please see comment - Incidental prostatic adenocarcinoma, [place]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 Pharmacy name entered into [facility]: [place], [place] - [address] [place] [address] Frailty Screening: Is the patient here for [...] st Contact Info) Description 04/08/2024 1:00 PM CIGARETTE CARTON SEALER Lab [address] [place] [phone] Yessica Mcleod PA-C [address] [place], [place] [phone] 04/08/2024 1:30 PM CIGARETTE CARTON SEALER Oncology Visit [address] [place] [phone] Dylan Guerin PA [address] [place], [place] [address] 04/08/2024 1:30 PM CIGARETTE CARTON SEALER Infusion Therapy Visit [address] [place] [address] Ky Torres MD [address] [address] 05/02/2024 10:30 AM CIGARETTE CARTON SEALER Lab [address] [place] [address] Ky Torres MD 420 [facility] 480 [place] [address] 05/02/2024 11:20 AM CIGARETTE CARTON SEALER Appointment [facility] Imaging [address] [place] [address] Drive [address] [place] [phone] Ky Torres MD [address] [facility] 480 [place] [address] 05/06/2024 9:30 AM CIGARETTE CARTON SEALER Lab [address] [place] [address] Ky Torres MD [address] [facility] [address] [place] [address] 05/06/2024 10:00 AM CIGARETTE CARTON SEALER Oncology Visit [address] [place] [address] Ky Torres MD 420 [facility] [address] [address] 05/06/2024 10:30 AM CIGARETTE CARTON SEALER Infusion Therapy Visit [address] [place] [address] Ky Torres MD [address] [place] [address] [address] documented as of this encounter Results * (ABNORMAL) Comprehensive metabolic panel (BMP + Alb, Alk Phos, ALT, AST, Total. Bili, TP) (01/13/2024 12:59 PM CDT) Pathologist [facility] Sodium 137 135 - 145 mmol/L 01/13/2024 [...] MD LAB - BLOOD ORDERABL ES LABORATORY [facility] Acute Care Lab [address] [facility] Lab (1st floor, no room number) [place] [address], [facility] documented in this encounter Visit Diagnoses Diagnosis Urothelial cancer (H)- Primary Malignant neoplasm of other specified sites of urinary organs documented in this encounter Care Teams Talent Buyer Relationship Specialty Start Date End Date Votel, Bhavin Ford [address] [place] [address] PCP - General Family Medicine 12/28/23 Alvaro Clark MD [address] [place] [address] 763435 Assigned Surgical Provider 07/24/23 Yessica Mcleod, PAJannetC [address] [place], [place] [address] Assigned Cancer Care Provider 12/22/23 01/21/24 documented as of this encounter
--- OUTSIDE RECORDS SUMMARY | 2024-03-11 12:03 | XMS_ITS | Encounter Summary ---
Author Organization [facility] Address [address] [place] [address] Care Team Providers Care Clinical Documentation Spec Name Role Phone Alvaro Clark MD Unavailable No Ref-Primary, Physician Primary Care Provider Yessica Mcleod PA-C Unavailable Bhavin Gardner Primary Care Provider [phone] Ky Torres MD Unavailable [phone] Encounter Details Date Type Department Care Team (Late st Contact Info) Description 12/26/2023 [facility] [address] [facility] [place] [address] Alvaro Clark MD 420 [facility] [address] [place] [address] Urothelial cancer (H) (Primary Dx) [...] st Contact Info) Description 04/08/2024 1:00 PM NON ACOUSTIC OPERATOR Lab [address] [place] [phone] Yessica Mcleod PA-C [address] [place] [address] 04/08/2024 1:30 PM NON ACOUSTIC OPERATOR Oncology Visit [address] [place] [phone] Dylan Guerin PA [address] [place], [place] [address] 04/08/2024 1:30 PM NON ACOUSTIC OPERATOR Infusion Therapy Visit [address] [place] [address] Ky Torres MD [address] [address] 05/02/2024 10:30 AM NON ACOUSTIC OPERATOR Lab [address] [place] [address] Ky Torres MD [address] [address] 05/02/2024 11:20 AM NON ACOUSTIC OPERATOR Appointment [facility] Imaging [address] [place] [address] Ky Torres MD 420 [facility] 480 [place] [address] 05/06/2024 9:30 AM NON ACOUSTIC OPERATOR Lab [facility] [address] [place] [address] Ky Torres MD [address] [address] 05/06/2024 10:00 AM NON ACOUSTIC OPERATOR Oncology Visit [address] [place] [address] Ky Torres MD [address] [place] [address] 05/06/2024 10:30 AM NON ACOUSTIC OPERATOR Infusion Therapy Visit [address] [place] [address] Ky Torres MD [address] [place] [address] documented as of this encounter Visit Diagnoses Diagnosis Urothelial cancer (H)- Primary Malignant neoplasm of other specified sites of urinary organs documented in this encounter Care Teams Clinical Documentation Spec Relationship Specialty Start Date End Date No Ref-Primary, Physician PCP - General 12/22/23 12/27/23 Bhavin Gardner [address] [place] [address] PCP - General Family Medicine 12/28/23 Alvaro Clark MD [address] [place] [address] 924785 Assigned Surgical Provider 07/24/23 Yessica Mcleod, PAJannetC [address] [place] [address]37305 Assigned Cancer Care Provider 12/22/23 01/21/24 Ky Torres MD [address] [place] [address] Assigned Cancer Care Provider 01/22/24 documented as of this encounter
--- OUTSIDE RECORDS SUMMARY | 2024-03-11 12:03 | XMS_ITS | Encounter Summary ---
Author Organization [place] Address [address] [place] [address]. [place] [address] Care Team Providers Care Snake Charmer Name Role Phone Alvaro Clark MD Unavailable No Ref-Primary, Physician Primary Care Provider Yessica Mcleod PA-C Unavailable Bhavin Gardner Primary Care Provider [phone] Reason for Visit * Auth/Cert (Routine) Specialty Diagnoses / Procedures Referred By Virgil t Referred To Contact Med Surg Diagnoses Post-op complications with small bowel obstruction Small bowel obstruction (H) Ur 8a Med Surg [address] [place] [phone] Referral ID Status Reason Start Date Expiration Date Visits Re quested Visits Authorized [id number] 1 1 Encounter Details Date Type Department Care Team (Latest Contact Info) Description 12/27/2023 4:52 AM CDT - 12/29/2023 1:34 PM CDT Hospital Encounter [facility] Unit [address] [place] [address] Fernando Romero MD [address] [place] [address] [address] [place], [place] [phone] Discharge Disposition: Home or Self Care Social [...] Manriquez MD - 12/29/2023 10:02 AM CDT [facility] Urology Discharge Summary Date of Admission: 12/27/2023 [...] Thursday through Thursday 8am to 4:30pm: Call [phone] with questions or to schedule or confirm appointment. - Nights or weekends: call the after hours emergency pager - [phone] and tell the chemical reclamation equipment operator I would like to page the Urology Resident director of institutional sales. - For emergencies, call [phone] The patient was discussed with the chief [...] 12/26/2023 02/10/2024 documented as of this encounter Progress Notes [...] questions or concerns regarding this patient. Note ghost writer may be unavailable. To access [facility] from intranet: under Applications --> Business Applications select [facility] Smartweb and search Urology Adult & Pediatric/[facility]. Please note that any question about a urology inpatient, [place], should go to job code [id number]. * Jenni Vela RN - 12/28/2023 10:46 AM CDT VS: [...] TID Dispo:Floor Will discuss with staff surgeon Krysitan Manriquez MD, PGY3 Urology Resident Contacting the urology team: Please see [employer] and page on-call clinician with any questions or concerns regarding this patient. Note ghost writer may be unavailable. To access [employer] from intranet: under Applications --> Business Applications select [facility] and search Urology Adult & Pediatric/[facility]. Please note that any question about a urology inpatient, [place] or [place], should go to job code [id number]. * Nick Sanderson, RN - 12/27/2023 12:41 PM CDT BP [...] for post op complication. Pt came from [facility] with family member matthew 05:30 am.Pt has a parry draining bloody catheter. 0 * Lauren Eli RN - 12/27/2023 5:42 AM CDT Reason for admission: Post op complication Primary team notified of pt arrival. Admitted from: [facility] Via: Family car Accompanied by: family members [...] evening. Last PO intake at 5 PM 7/27/24. He endorses burping and anorexia and denies [...] BLADDER TUMOR; Surgeon: Alvaro Clark MD; [place] [facility] [place] Social History: Social History Tobacco Use [...] Demarcus Persaud MD 100 mL/hr at 12/27/23 06 New Bag at 12/27/23 06 gabapentin (NEURONTIN) capsule 100 mg 100 mg [...] reach out to urology resident listed as director of institutional sales, electrolyte replacement for K>4, Phos>3, and Mg>2, [...] Care Reviewed With: patient Overall [facility] Progress: improving Shift [phone] Changes this shift: Irrigated parry and pelvic [...] Flowsheet Documentation Taken 12/28/2023 0400 by Nanci oCwart RN Body Position: position changed independently Taken 12/27/20232099 by Nanci Cowart RN Body Position: position changed independently Intervention: Prevent and Manage VTE (Venous Thromboembolism) Risk Recent Flowsheet Documentation Taken 12/28/20230 by Nanci Cowart RN VTE Prevention/Management: SCDs off (sequential compression devices) Taken 12/27/20232099 by Nanci Cowart RN VTE Prevention/Management: SCDs off (sequential compression devices) Intervention: Prevent Infection Recent Flowsheet Documentation Taken 12/28/20230 by Nanci Cowart RN Infection Prevention: hand [...] Barahona RN - 12/27/2023 6:31 PM CDT [id number] Blood pressure 132/75, pulse 94, temperature 97.4 [...] your shift note. Outcome: Progressing Flowsheets (Taken 12/27/2023 1747) Plan of Care Reviewed With: patient Goal: [...] * Pharmacy-Admission Medication History - Silvia Sánchez [facility] - 12/27/2023 1:10 PM CDT Pharmacist Admission Medication History Recent Admission 12/22/2023 - 12/25/3023 Admission Medication History completed by internet architect, Uriel Kaba on 12/15/2023. Please see Pharmacy - Admission Medication History note under previous encounter at [facility]. for information regarding prior to admission medications. Silvia Sánchez, PharmElba Clinical Pharmacist documented in this encounter Plan of Treatment Upcoming Encounters Date Type Department Care Team (Late st Contact Info) Description 04/08/2024 1:00 PM COMPUTER SYSTEM TECHNICIAN Lab [address] [place] [phone] Yessica Mcleod PA-C [address] [place] [phone] 04/08/2024 1:30 PM COMPUTER SYSTEM TECHNICIAN Oncology Visit [address] [place] [address] Dylan Guerin PA [address] [place] [phone] 04/08/2024 1:30 PM COMPUTER SYSTEM TECHNICIAN Infusion Therapy Visit [place] [address] [place] [address] Ky Torres MD [address] [id number] 05/02/2024 10:30 AM COMPUTER SYSTEM TECHNICIAN Lab [place] [address] [place] [address] Ky Torres MD [address] [place] [address] [facility] [address] [place] [address] 05/02/2024 11:20 AM COMPUTER SYSTEM TECHNICIAN Appointment [facility] Imaging [address] [place] [address] Ky Torres MD 420 [facility] [address] [place] [address] 05/06/2024 9:30 AM COMPUTER SYSTEM TECHNICIAN Lab [address] [place] [address] Ky Torres MD [address] [place] [address] [facility] [address] [place] [address] 05/06/2024 10:00 AM COMPUTER SYSTEM TECHNICIAN Oncology Visit [address] [facility] [place] [address] Ky Torres MD 420 [facility] [address] [place] [address] 05/06/2024 10:30 AM COMPUTER SYSTEM TECHNICIAN Infusion Therapy Visit [address] [place] [address] Ky Torres MD 420 [facility] [address] [place], [place] [phone] documented as of this encounter Procedures Procedure [...] LAB - BLOOD ORDERABL ES UR LABORATORY [facility] Acute Care Lab [address] [facility], Room [address] [place] [address] * (ABNORMAL) CBC with platelets [...] LAB - BLOOD ORDERABL ES UR LABORATORY [facility] Acute Care Lab [address] [place] [address], Room [place] [id number] * Phosphorus (12/28/2023 11:53 AM CDT) Phosphorus 2.8 2.5 - 4.5 mg/dL 12/28/2023 1:37 PM CDT UR LABORATORY Blood STRUCTURE OF RIGHT UPPER LIMB / Unknown Venipuncture / Unknown 12/28/2023 11:53 AM CDT 12/28/2023 12:53 PM CDT Krystian Manriquez MD LAB - BLOOD ORDERABL ES Performing Organization Address City/[facility]/ZIP Co de Phone Number UR LABORATORY [facility] Acute Care Lab [address] [place] [address], Room [place] [phone] * Magnesium (12/28/2023 11:53 AM CDT) Magnesium 2.0 1.7 - 2.3 mg/dL 12/28/2023 1:37 PM CDT UR LABORATORY Blood STRUCTURE OF RIGHT UPPER LIMB / Unknown Venipuncture / Unknown 12/28/2023 11:53 AM CDT 12/28/2023 12:53 PM CDT Krystian Manriquez MD LAB - BLOOD ORDERABL ES UR LABORATORY [facility] Acute Care Lab [address] [place] [address], Room [address] [address] * (ABNORMAL) Basic metabolic panel (12/28/2023 11:53 [...] LAB - BLOOD ORDERABL ES UR LABORATORY [facility] Acute Care Lab [address] [facility], Room [address] [place] [address], [place] * (ABNORMAL) CBC with platelets (12/28/2023 11:53 [...] LAB - BLOOD ORDERABL ES UR LABORATORY [facility] Acute Care Lab [address] [facility], Room [address] [place] [address] * Electrolyte panel (12/27/2023 7:37 [...] LAB - BLOOD ORDERABL ES UR LABORATORY [facility] Acute Care Lab [address] [facility], Room [address] [place] [address] * (ABNORMAL) Basic metabolic panel (12/27/2023 7:37 [...] LAB - BLOOD ORDERABL ES UR LABORATORY [facility] Acute Care Lab [address] [facility], Room [address] [place] [address], [place] * (ABNORMAL) CBC with platelets (12/27/2023 7:37 [...] LAB - BLOOD ORDERABL ES UR LABORATORY [facility] Acute Care Lab [address] [facility], Room [address] [place] [address], [place] documented in this encounter Visit Diagnoses Diagnosis Small bowel obstruction (H) Unspecified intestinal obstruction documented in this encounter Administered Medications Inactive Administered Medications - up to 3 most recent administrations Medication Order MAR Action Action Date Dose Rate Site acetaminophen (TYLENOL) tablet 650 mg 650 mg, Oral, 3 TIMES DAILY, First dose (after last modification) on Sun 28/24 at 1400, Maximum acetaminophen dose from all sources = 75 mg/kg/day not to exceed 4 grams/day. $Given 12/29/2023 8:57 AM CDT 650 mg $Given 12/28/2023 7:43 PM CDT 650 mg $Given 12/28/2023 1:24 PM CDT 650 mg acetaminophen (TYLENOL) tablet 975 mg 975 mg, Oral, 3 TIMES DAILY, First dose on Thu12/27/23 at 0800, Maximum acetaminophen dose from all [...] 2 MIN PRN, opioid reversal, Starting on [place] 12/27/23 at 0517, Administer intravenous route when [...] 2 MIN PRN, opioid reversal, Starting on [place] 12/27/23 at 0517, Administer intramuscular if an [...] 100 mg, Oral, DAILY, First dose on [place] 12/27/23 at 0800, Indications: Perioperative Pharmacoprophylaxis $Given 12/29/2023 [...] Intracatheter, EVERY 8 HOURS, First dose on 12/27/23 at 0530, to lock peripheral IV dormant line $Given 12/27/2023 8:53 PM CDT 3 mLs $Given 12/27/2023 1:31 PM CDT 3 mLs $Given 12/27/2023 6:06 AM CDT 3 mLs sodium chloride (PF) 0.9% PF flush 3 mL 3 mL, Intracatheter, EVERY 1 MIN PRN, line flush, other, to ensure patency or to lock dormant line, Starting on 12/27/23 at 0502 documented in this encounter Active [...] RN)2052 ($Given - Provider: Nanci Cowart RN) 0816 ($Given - Provider: Becca Workman RN)1324 [...] Sanderson RN) 1658 ($Given - Provider: Jenni Vela, CARLOS) 0857 (Not Given - Provider: Jenni Vela, CARLOS - Reason: Patient/family refused) calcium gluconate 1 [...] Nick Sanderson RN)2053 ($Given - Provider: Nanci Cowart RN) 0434 ($Given - Provider: Nanci Cowart, CARLOS)1235 ($Given - Provider: Becca Workman RN)1943 ($Given - Provider: Omega Livingston, CARLOS) 0355 [...] heparin flush. 1135 ($Given - Provider: Jennifer Baker, CARLOS) heparin lock flush 100 unit/mL injection [...] stools. 1209 ($Given - Provider: Nick Sanderson RN)2052 ($Given - Provider: Nanci Cowart RN) 0816 ($Given - Provider: Becca Workman, CARLOS)1943 ($Given - Provider: Omega Livingston RN) 0857 [...] Eli RN)1331 ($Given - Provider: Nick Sanderson RN)2053 ($Given - Provider: Nanci Cowart, CARLOS) 0437 (Not Given - Provider: Nanci Cowart, CARLOS - Reason: IV Infusing)1233 (Not Given - Provider: Becca Workman RN - Reason: IV Infusing)205 (Not Given - Provider: Omega Livingston RN [...] CARLOS) 0355 ($New Bag - Provider: Omega Livingston, CARLOS)0855 (Stopped - Provider: Jenni Vela RN) PRN [...] vomiting, Administer over 2-5 Minutes, Starting on Thu12/27/23 at 0510, Give IF patient unable to tolerate oral medication. This is Step 1 of nausea and vomiting management. If nausea not resolved in 15 minutes, go to Step 2 prochlorperazine (COMPAZINE). oxyCODONE (ROXICODONE) tablet 5 mg 5 mg, Oral, EVERY 4 HOURS PRN, severe pain, IF pain not managed with non-pharmacological and non-opioid interventions, Starting on Thu12/27/23 at 0510, May use concomitant with non-opioid analgesics. 0522 ($Given - Provider: Lauren Eli RN)1210 ($Given - Provider: Nick Sanderson, RN)1726 ($Given - Provider: Wayne Barahona, CARLOS) 1704 ($Given - Provider: Jenni Vela, CARLOS) oxyCODONE IR (ROXICODONE) half-tab 2.5 mg 2.5 mg, Oral, EVERY 4 HOURS PRN, moderate pain, IF pain not managed with non-pharmacological and non-opioid interventions, Starting on Thu12/27/23 at 0510, May use [...] (ZOFRAN). documented in this encounter Care Teams Snake Charmer Relationship Specialty Start Date End Date No Ref-Primary, Physician PCP - General 12/22/23 12/27/23 Bhavin Gardner [address] [place] [address] PCP - General Family Medicine 12/28/23 Alvaro Clark MD [address] [place] [address] [phone] Assigned Surgical Provider 07/24/23 Yessica Mcleod, PAJannetC [address] [place] [address] [phone] Assigned Cancer Care Provider 12/22/23 01/21/24 documented as of this encounter
--- OUTSIDE RECORDS SUMMARY | 2024-03-11 12:03 | XMS_ITS | Encounter Summary ---
Author Organization [place] Address [address] [place] [address]. [place] [address] Care Team Providers Care Digital Watch Assembler Name Role Phone Alvaro Clark MD Unavailable Yessica Mcleod PA-C Unavailable Bhavin Gardner Primary Care Provider [phone] Reason for Visit * Reason Comments Blood Draw CBC, CMP Encounter Details Date Type Department Care Team (Late st Contact Info) Description 01/13/2024 12:[address] [facility] Cancer [facility] [address] [place] [address] [address] [place] [address] Alvaro Clark MD 420 [facility] [address] [place] [address] Urothelial cancer (H) Social History [...] labs. Patient seen by provider today: No Electrical Instrument Maker present during visit today: Not Applicable. [...] st Contact Info) Description 04/08/2024 1:00 PM ICT ACCOUNT MANAGER Lab [address] [place] [phone] Yessica Mcleod PA-C [address] [place] [phone] 04/08/2024 1:30 PM ICT ACCOUNT MANAGER Oncology Visit [place] [address] [place] [address] [place] [address] Dylan Guerin PA [address] [place] [phone] 04/08/2024 1:30 PM ICT ACCOUNT MANAGER Infusion Therapy Visit [place] [address] [place] [address] Ky Torres MD [address] [place] [address] 05/02/2024 10:30 AM ICT ACCOUNT MANAGER Lab [place] [address] [address] [place] [address] Ky Torres MD [address] [place] [address] [facility] [address] [place] [address] 05/02/2024 11:20 AM ICT ACCOUNT MANAGER Appointment [facility] Imaging [address] [place] [address] Ky Torres MD 420 [facility] [address] [place] [address] 05/06/2024 9:30 AM ICT ACCOUNT MANAGER Lab [facility] [address] [place] [address] [address] [place] [address] Ky Torres MD 420 [facility] [address] [place] [address] 05/06/2024 10:00 AM ICT ACCOUNT MANAGER Oncology Visit [facility] [address] [place] [address] [address] [place] [address] Ky Torres MD [address] [place] [address] [facility] [address] [place] [address] 05/06/2024 10:30 AM ICT ACCOUNT MANAGER Infusion Therapy Visit [facility] [address] [place] [address] Ky Torres MD [address] [place] [address] [facility] [address] [place], [place] [address] documented as of this encounter Procedures Procedure [...] MD LAB - BLOOD ORDERABL ES LABORATORY [facility] Acute Care Lab [address] [facility] Lab (1st floor, no room number) [place] [address], [facility] * (ABNORMAL) Comprehensive metabolic panel (BMP + Alb, Alk Phos, ALT, AST, Total. Bili, TP) (01/13/2024 12:59 PM CDT) Sodium 137 135 - 145 mmol/L 01/13/2024 1:24 PM CDT LABORATORY Potassium 3.9 3.4 - 5.3 mmol/L 01/13/2024 1:24 PM CDT LABORATORY Carbon Dioxide (CO2) 25 22 - 29 mmol/L 01/13/2024 1:24 PM CDT RH LABORATORY Anion Gap 10 7 - 15 mmol/L 01/13/2024 1:24 PM CDT LABORATORY Urea Nitrogen 15.5 8.0 - 23.0 [...] MD LAB - BLOOD ORDERABL ES LABORATORY [facility] Acute Care Lab [address] Lab (1st floor, no room number) [place] [address], [facility] documented in this encounter Visit [...] mLs documented in this encounter Care Teams Digital Watch Assembler Relationship Specialty Start Date End Date DaoteBhavin ferrara [address] [place] [address] PCP - General Family Medicine 12/28/23 Alvaro Clark MD [address] [address] Assigned Surgical Provider 07/24/23 Yessica Mcleod, LIDIAC [address] [place] [address] [phone] Assigned Cancer Care Provider 12/22/23 01/21/24 documented as of this encounter
--- OUTSIDE RECORDS SUMMARY | 2024-03-11 12:04 | XMS_ITS | Encounter Summary ---
Author Organization [place] Address [address] [place] [address] Care Team Providers Care Enthone Solder Stripper Name Role Phone Alvaro Clark MD Unavailable No Ref-Primary, Physician Primary Care Provider Yessica Mcleod PA-C Unavailable Reason for Visit * Auth/Cert Specialty Diagnoses / Procedures Referred By Contkatlyn t Referred To Contact Surgery Diagnoses 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 (H) 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 (H) [C67.9] Procedures OH REMV BLADDER,CONTINENT DIVERSN CYSTECTOMY, pelvic node dissection WITH ILEAL NEOBLADDER CREATION possible ileal conduit [facility] Periop [address] [place] [address] Referral ID Status Reason Start Date Expiration Date Visits Re quested Visits Authorized [id number] 1 1 Encounter Details Date Type Department Care Team (Late st Contact Info) Description 12/22/2023 7:48 AM CDT Anesthesia Event [facility] PeriOp Services [address] [place] [address] Forest Olson MD 420 [place], [place] [address] Anesthesia Record Procedure Summary Procedure Name Responsible Anesthesiologist Anesthesia Start Time Anesthesia Stop Time CYSTECTOMY, pelvic node dissection WITH ILEAL NEOBLADDER CREATION (Abdomen) Forest Olson MD 12/22/23 0748 12/22/23 1437 Events Date Time Event Comment 12/22/2023 0654 FLATCAR WHACKER Ready for Procedure 0747 0748 An Start [...] recorded are pre- induction. Nessa Pereira APRN FLATCAR WHACKER 0757 An Induction 0802 An Intubation 0810 Anesthesia Ready for Procedu re 1428 AN Extubation All extubation criteria met prior to removal. 1430 an stop data 1437 An Stop Electronically signed by Nessa Pereira APRN FLATCAR WHACKER on December 22, 2023 2:37 PM Meds [...] Single 08/28/23; 09; Right; Chest wall; Yes; [id number]; Yes; Yes; 6 Fr; 21 cm; SVC/RA [...] Cowan 2; Grade View: 1; Placement Person: FLATCAR WHACKER; Attempts: 1 12/22/23 0802 by Nessa Pereira APRN FLATCAR WHACKER 12/22/23 1428 by Nessa Pereira APRN FLATCAR WHACKER Peripheral IV 12/22/23; 0804; 18 G ; [...] Drain 12/22/23; 1408; RLQ ; Bulb; 19 Azeri 12/22/23 1408 by Natasha Alejo RN 12/25/23 [...] Start/Stop Times: 12/22/2023 8:02 AM Staff - FLATCAR WHACKER: Nessa Pereira APRN FLATCAR WHACKER Performed By: CRNAIndications and Patient Condition Indications [...] P in preparation for Procedure Information Case: [id number] Date/Time: 12/22/23 0800 Procedure: CYSTECTOMY, pelvic node [...] BLADDER TUMOR; Surgeon: Alvaro Clark MD; Location[place] [facility] Prior to Admission Medications [...] Resource Strain: High Risk (06/01/2021) [facility] [employer] Financial Resource Strain ??? Difficulty of Paying Living Expenses: Not on file ??? Difficulty of Paying Living Expenses: Not on file Food Insecurity: Not on file Transportation Needs: Not on file Physical Activity: Not on file Stress: Not on file Social Connections: Unknown (08/15/2021) Received from [employer], [employer] Social Connections ??? 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 Denies any exertional dyspnea or [...] Total time: 24 minutes Rizwana Tejeda APRN [facility] Preoperative Assessment Center [facility] Physical Exam [...] and realistic alternatives discussed. Questions answered and patient/sales representative publications(s) expressed understanding. - Discussed: - Discussed with: [...] st Contact Info) Description 04/08/2024 1:00 PM LUMBER PRESS OPERATOR Lab [address] [place] [address] [place] [phone] Yessica Mcleod PA-C [address] [place], [place] [phone] 04/08/2024 1:30 PM LUMBER PRESS OPERATOR Oncology Visit [address] [place] [address] Dylan Guerin PA [address] [place] [address] 04/08/2024 1:30 PM LUMBER PRESS OPERATOR Infusion Therapy Visit [address] [place] [address] [place] [address] Ky Torres MD [address] [id number] 05/02/2024 10:30 AM LUMBER PRESS OPERATOR Lab [address] [place] [address] Ky Torres MD [address] [address] 05/02/2024 11:20 AM LUMBER PRESS OPERATOR Appointment [facility] Imaging [address] [place] [address] Ky Torres MD [address] [address] 05/06/2024 9:30 AM LUMBER PRESS OPERATOR Lab [address] [place] [address] Ky Torres MD [address] [place] [address] [facility] [address] [place] [address] 05/06/2024 10:00 AM LUMBER PRESS OPERATOR Oncology Visit [address] [place] [address] Ky Torres MD [address] [address] 05/06/2024 10:30 AM LUMBER PRESS OPERATOR Infusion Therapy Visit [address] [place] [address] Ky Torres MD [address] [place] [address] [address] documented as of this encounter Procedures Procedure Name Priority Date/Time Associated Diagnosis Comments ANE AIRWAY ETT PERFORMABLE Routine 12/22/2023 8:02 AM CDT documented in this encounter Results * ANE AIRWAY ETT PERFORMABLE (12/22/2023 8:02 AM CDT) Narrative Nessa Pereira APRN FLATCAR WHACKER - 12/22/2023 8:02 AM CDT Nessa Pereira APRN FLATCAR WHACKER ? 12/22/2023 ??8:22 AM Airway ? Patient location during procedure: OR ? Procedure Start/Stop Times: 12/22/2023 8:02 AM Staff - ? FLATCAR WHACKER: Nessa Pereira APRN FLATCAR WHACKER ? Performed By: CRNAIndications and Patient Condition [...] Time: 12/22/2023 8:02 AM Forest Olson MD [place] ANESTHESIA documented in this encounter Visit Diagnoses [...] mg documented in this encounter Care Teams Enthone Solder Stripper Relationship Specialty Start Date End Date No Ref-Primary, Physician PCP - General 12/22/23 12/27/23 Alvaro Clark MD [address] [address] Assigned Surgical Provider 07/24/23 Yessica Mcleod PA-C [address] [place] [address] Assigned Cancer Care Provider 12/22/23 01/21/24 documented as of this encounter
--- OUTSIDE RECORDS SUMMARY | 2024-03-11 12:04 | XMS_ITS | Encounter Summary ---
Author Organization [facility] Address [address] [place] [id number] Care Team Providers Care Telecommunications Engineer Name Role Phone Alvaro Clark MD Unavailable No Ref-Primary, Physician Primary Care Provider Yessica Mcleod PA-C Unavailable Reason for Visit * Auth/Cert Specialty Diagnoses / Procedures Referred By Virgil t Referred To Contact Surgery Diagnoses 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 (H) 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 (H) [C67.9] Procedures NM REMV BLADDER,CONTINENT DIVERSN CYSTECTOMY, pelvic node dissection WITH ILEAL NEOBLADDER CREATION possible ileal conduit Uu Periop [address] [place] [address] Referral ID Status Reason Start Date Expiration Date Visits Re quested Visits Authorized [id number] 1 1 Encounter Details Date Type Department Care Team (Late st Contact Info) Description 12/22/2023 8:00 AM CDT - 12/22/2023 1:00 PM CDT Surgery [facility] PeriOp Services [address] [place] [address] Alvaro Clark MD [address] [facility] [address] [place] [address] CYSTECTOMY, pelvic node dissection WITH [...] Dai NP - 12/25/2023 10:13 AM CDT [facility] UroDischarge Summary Patient: Oleg Richard : [...] a bowel movement in 3 days, start yfxe-lxw-levnack Milkof Magnesia taken twice daily until you [...] on their own within 5-10 days. - [place] will be removed at your follow up [...] your follow-up appointment. - Your nurse or supportive employment case manager will provide written catheter care [...] a clean towel or dried with a hair-suction drum drier operator. - You may shower with [...] Thursday through Thursday 8am to 4:30pm: Call [phone] with questions, requests for medication refills, or to schedule or confirm an appointment. - Nights, weekends, or holidays: call the after hours emergency pager - [phone] and tell the temper mill operator I would like to page the Urology Resident application support lead. Typically, the on-call provider should return your call within 30 minutes. Please page the on-call provider again if you haven't been contacted as expected. Rarely, the on-call provider will be unable to promptly return a call due to a hospital emergency. If you have paged twice and are still not contacted, ask the hospital temper mill operator to page the urology CHIEF-RESIDENT application support lead. - Please note that due to prescribing [...] to reach the Urology resident or PA application support lead - [phone] to reach the Urology resident or PA application support lead - Weeknights and weekends December 25, 2023 [...] Noe Erickson MD, MPH Urology Resident, PGY-2 COMPOUND FINISHER medications: Prior to Admission medications Medication Sig [...] questions or concerns regarding this patient. Note contract writer may be unavailable. To access [facility] from intranet: under Applications --> Business Applications select [employer] and search Urology Adult & Pediatric/[facility]. Please note that any question about a urology inpatient, [place] or [place], should go to job code [id number]. * [...] Noe Erickson MD, MPH Urology Resident, PGY-2 COMPOUND FINISHER medications: Prior to Admission medications Medication Sig Start Date End Date Taking? Authorizing Provider acetaminophen-caffeine (EXCEDRIN TENSION HEADACHE) 500-65 MG TABS Take 2 tablets by mouth every 6 hours as needed for mild pain (PRN HEADACHE) Yes Reported, Patient diphenhydrAMINE HCl (BENADRYL ALLERGY PO) Take 1 tablet by mouth as needed Yes Reported, Patient Contacting the urology team: Please see [employer] and page on-call clinician with any questions or concerns regarding this patient. Note contract writer may be unavailable. To access [employer] from intranet: under Applications --> Business Applications select [employer] and search Urology Adult & Pediatric/[facility]. Please note that any question about a urology inpatient, [place] or [place], should go to job code [id number]. * [...] identified Bed Mobility Bed Mobility supine-sit;sit-supine Supine-Sit Foard (Bed Mobility) verbal cues Sit-Supine Foard (Bed Mobility) verbal cues Transfers Transfers sit-stand transfer Sit-Stand Transfer Sit-Stand Foard (Transfers) supervision Balance Balance Assessment no deficits identified Activities of Daily Living BADL Assessment/Intervention bathing;upper body dressing;lower body dressing;clothing fastener management;grooming;toileting Bathing Assessment/Intervention Foard Level (Bathing) set up Comment, (Bathing) Per clinical judgement Upper Body Dressing Assessment/Training Comment, (Upper Body Dressing) Per clinical judgement Foard Level (Upper Body Dressing) independent Lower Body Dressing Assessment/Training Foard Level (Lower Body Dressing) modified independence Clothes Fastener Management Foard Level (Clothes Fastener Management) independent Grooming Assessment/Training Foard Level (Grooming) supervision Toileting Foard Level (Toileting) supervision Clinical Impression Criteria for [...] Evaluation Time OT Eval, Low Complexity Minutes (81838) 10 OT Goals Therapy Frequency (OT) One [...] Management Self-Care/Home Mgmt/ADL, Compensatory, Meal Prep Minutes (76516) 12 Symptoms Noted During/After Treatment (Meal Preparation/Planning Training) increased pain Treatment Detail/Skilled Intervention OT: Facilitated ADL for increased IND within precautions. Pt educated on abdominal precautions, handout provided. Pt completed log roll technique for bed mobility with verbal cues, progressed to mod IND. Reviewed with pt LB dressing within precautions, pt unable to demo figure four, reported he is familiar with using stem threshing machine operator tool for LB dressing and has slip on shoes he wears. Educated pt on IADLs with 10 # weight restriction. Pt demo'd mod IND mobility in room once set up with IV pole due to multiple lines, completed ADLS SBA and progressed to mod IND-IND. Therapeutic Activities Therapeutic Activity Minutes (57203) 10 Symptoms noted during/after treatment fatigue Treatment [...] MD. Camilla Larkin MD, PGY-2 Urology Resident COMPOUND FINISHER medications: Prior to Admission medications Medication Sig Start Date End Date Taking? Authorizing Provider acetaminophen-caffeine (EXCEDRIN TENSION HEADACHE) 500-65 MG TABS Take 2 tablets by mouth every 6 hours as needed for mild pain (PRN HEADACHE) Yes Reported, Patient diphenhydrAMINE HCl (BENADRYL ALLERGY PO) Take 1 tablet by mouth as needed Yes Reported, Patient Contacting the urology team: Please see [facility] and page on-call clinician with any questions or concerns regarding this patient. Note contract writer may be unavailable. To access [facility] from intranet: under Applications --> Business Applications select [facility] [employer] and search Urology Adult & Pediatric/[facility]. Please note that any question about a urology inpatient, [place] or [place], should go to job code [id number]. * [...] cath with red output. BS+, passing flatus. [place] urge sat Diet: Clears. Skin/Incisions/Drains: Midline abd [...] 5:41 AM CDT Goal Outcome Evaluation: Shift A&Ox4, cooperative, makes needs known. Abdominal pain [...] Nicholas RN - 12/24/2023 3:41 AM CDT [id number] Status: OD#1 s/p cystectomy with ileal neobladder [...] RN - 12/23/2023 4:27 PM CDT RN joycelyn Richard, S [phone] FYI pt abd distended, very painful, and pt belching. thanks. shobha ho rn [phone] * Plan of Care - Ana Thomason OTR - 12/23/2023 11:53 AM CDT Occupational Therapy Discharge Summary Reason for therapy discharge: All goals and outcomes met, no further needs identified. Progress towards therapy goal(s). See goals on Care Plan in [facility] electronic health record for goal [...] Date: 12/22/2023 Attending Surgeon: Alvaro Clark MD Cell Tuber Hand(s): Alberto Tejeda M.D.-PGY-5 Preoperative Diagnosis(es): High grade [...] in the usual sterile fashion. A #16 Nigerian Parry catheter was placed in the bladder. [...] and vein from the lymph node of [place] proximally to join up with the proximal [...] sutures. We then performed a standard stapled rhfr-yp-ysnr functional end-to-end small bowel anastomosis by firing a JORGE 60 stapler along the antimesenteric border and closed the enterotomies for the anastomosis using a TA 60 stapler. The crossing staple lines were reinforced using 3-0 silk suture in a kzlhlr-az-uuqqp fashion. A similar suture was done at [...] away from thepouch. We placed a #19 Nigerian Brandon drain into the plane between the [...] Tejeda MD - 12/22/2023 2:24 PM CDT [facility] Brief Operative Note Pre-operative diagnosis: Urothelial carcinoma [...] Implant Name Type Inv. Item Serial No. Supervisor Fur Floor Worker Lot No. LRB No. Used Action STENT URETERAL RUG DRYING MACHINE OPERATOR DIVERSION [id number] - [id number] Stent STENT URETERAL RUG DRYING MACHINE OPERATOR DIVERSION [id number] [facility] [id number] N/A 1 Implanted Fluids: 3200 crystalloid 250 albumin Admit Urology Urology to irrigate AM and PM Neobladder pathway Alberto Tejeda MD Urology PGY-5 * Pharmacy-Admission Medication History - Uriel Kaba - 12/15/2023 12:03 PM CDT Breaker Unit Assembler Pre-operative Admission Medication History Admission medication history [...] 09/14/23 per dispense history. Changes made to COMPOUND FINISHER medication list: Added: None Deleted: None Changed: None Allergies reviewed with patient and updates made in EHR: yes Medication History Completed By: Uriel Kaba 12/15/2023 12:03 PM COMPOUND FINISHER Med List Medication Sig Last Dose acetaminophen-caffeine (EXCEDRIN TENSION HEADACHE) 500-65 MG TABS Take 2 tablets by mouth every 6 hours as needed for mild pain (PRN HEADACHE) diphenhydrAMINE HCl (BENADRYL ALLERGY PO) Take 1 tablet by mouth as needed Associated attestation - Nabeel Mcghee RPH - 12/15/2023 12:17 PM CDT I was not present during the internet cafe manager's interview, but I agree with the documentation. Nabeel Mcghee, Pharm.D, [facility] December 15, 2023 documented in this encounter Plan of Treatment Upcoming Encounters Date Type Department Care Team (Late st Contact Info) Description 04/08/2024 1:00 PM PROFESSOR OF RHETORIC Lab [address] [place] [phone] Yessica Mcleod PA-C [address] [place] [address] 04/08/2024 1:30 PM PROFESSOR OF RHETORIC Oncology Visit [address] [place] [phone] Dylan Guerin PA [address] [place], [place] [address] 04/08/2024 1:30 PM PROFESSOR OF RHETORIC Infusion Therapy Visit [address] [place] [phone] Ky Torres MD [address] [id number] 05/02/2024 10:30 AM PROFESSOR OF RHETORIC Lab [address] [place] [phone] Ky Torres MD 420 [facility] [address] [place], [place] [id number] 05/02/2024 11:20 AM PROFESSOR OF RHETORIC Appointment [facility] [address] [place] [phone] Ky Torres MD 420 [facility] [address] [place] [address] 05/06/2024 9:30 AM PROFESSOR OF RHETORIC Lab [address] [place] [address] Ky Torres MD 420 [facility] [address] [place] [address] 05/06/2024 10:00 AM PROFESSOR OF RHETORIC Oncology Visit [address] [place] [address] Ky Torres MD 420 [facility] [address] [place] [address] 05/06/2024 10:30 AM PROFESSOR OF RHETORIC Infusion Therapy Visit [address] [place] [address] Ky Torres MD 420 [facility] [address] [place] [address] documented as of this encounter Procedures Procedure [...] FLUIDS OR DERABLES [facility] [place] [facility] Lab [address] [facility], [address] [address] * (ABNORMAL) CBC with platelets (12/25/2023 6:50 AM CDT) [facility] WBC Count 9.0 4.0 - 11.0 [...] BLOOD ORDERABL ES [facility] [place] Core Lab [address] [facility], [address] [place] [address] * (ABNORMAL) Basic metabolic panel [...] BLOOD ORDERABL ES [facility] [place] [facility] Lab [address] [facility], Room [address] * Phosphorus (12/24/2023 6:16 AM CDT) Pathologist [facility] Phosphorus 2.9 2.5 - 4.5 mg/dL 12/24/2023 7:26 AM CDT [facility] Blood (Portacath) IVAD (Port) / Unknown 12/24/2023 6:16 AM CDT 12/24/2023 6:41 AM CDT Alberto Tejeda MD LAB - BLOOD ORDERABL ES Performing Organization Address City/[facility]/ZIP Co de Phone Number U LABORATORY [facility] [place] Core Lab [address] [facility], [address] * Magnesium (12/24/2023 6:16 AM CDT) Pathologist [facility] Magnesium 1.8 1.7 - 2.3 mg/dL 12/24/2023 10:59 AM CDT [facility] Blood (Portacath) IVAD (Port) / Unknown 12/24/2023 6:16 AM CDT 12/24/2023 6:41 AM CDT Alberto Tejeda MD LAB - BLOOD ORDERABL ES [facility] [place] Core Lab [address] [facility], [address] * (ABNORMAL) CBC with platelets (12/24/2023 6:16 AM CDT) Pathologist [facility] WBC Count 9.8 4.0 - 11.0 10e3/uL [...] BLOOD ORDERABL ES [facility] [place] [facility] Lab [address] [facility], Room [address] [place] [address] * (ABNORMAL) Basic metabolic panel [...] BLOOD ORDERABL ES [facility] [place] Core Lab [address] [facility], [address] [place] [address] * (ABNORMAL) CBC with [...] BLOOD ORDERABL ES [facility] [place] [facility] Lab [address] [facility], [address] [place] [address] * (ABNORMAL) Basic metabolic panel [...] BLOOD ORDERABL ES [facility] [place] [facility] Lab [address] [facility], [address] [place] [address] * (ABNORMAL) Glucose by meter (12/23/2023 6:42 AM CDT) GLUCOSE BY METER POCT 118(H) 70 - 99 mg/dL 12/23/2023 6:49 AM CDT [facility]ATORY POC Blood, Capillary BLOOD SPECIMEN / Unknown 12/23/2023 6:42 AM CDT 12/23/2023 6:49 AM CDT Alvaro Clark MD LAB - BEAKER POCT Performing Organization Address City/[facility]/ZIP Co de Phone Number [facility]ATORY POC [facility] [place] Core Lab [address] [facility], [address] [place] [address] * Platelet count (12/22/2023 9:55 PM CDT) Platelet Count 179 150 - 450 10e3/uL 12/22/2023 10:12 PM CDT [facility] Blood STRUCTURE OF RIGHT HAND / Unknown IVAD (Port) / Unknown 12/22/2023 9:55 PM CDT 12/22/2023 10:04 PM CDT Alberto Tejeda MD LAB - BLOOD ORDERABL ES [facility] [place] [facility] Lab [address] [facility] Building, [address] [place] [address] * XR Abdomen Port 1 [...] Case Report Surgical Pathology Report ? Case: [id number] ? Authorizing Provider: ??Alvaro Clark MD ?Collected: ? 12/22/2023 08:54 AM ? Ordering Location: ? [facility] MAIN OR ? Received: ?12/22/2023 09:00 AM ? Pathologist: ? Marlin Tenorio MD ? Intraop: ? Carlos, Tracie, MD ? Specimens: ?? A) - Ureter, [...] ureteric tissue identified) 4 6:31 PM CDT [facility] Comment:This is an appended report. [...] pN Category: ?pN0 4 6:31 PM CDT [facility] Clinical Information Procedure: CYSTECTOMY, pelvic [...] 9:15 AM Intra op performed at:[facility] LABORATORY, [facility] Core Lab, [address] [facility], [facility], Room [address], [facility] [address] Intra-op Dx verbally delivered to Dr. Amber Tanner(2). Ureter, Right, Right distal ureteral margin: BFS1: Negative for malignancy John Carey MD on 12/22/2023 at 9:27 AM Intra op performed at:[facility] LABORATORY, [facility] Core Lab, [address] [facility], [facility], Room [address] [address] Intra-op Dx verbally delivered to Dr. Amber Segura(3). Urethra, urethral margin: CFS1: - No evidence of malignancy Tracie Gonzalez MD on 12/22/2023 at 10:41 AM Intra op performed at: LABORATORY, [facility] Core Lab, [address] [facility], [facility], [address] [address] Intra-op Dx verbally delivered to Dr. Clark [...] reveal no mass deposits or lymph nodes. Balance Weigher sections are submitted. Gross photography is taken. D1-urethral margin, en face D2-right ureter margin, en face D3-left ureter margin, en face D4-lesion to right ureteral orifice D5-lesion to left ureteral orifice O4-X24-nyexxt from dome to trigone B41-mfyrmz to seminal vesicles H13-qzcby lateral wall Q02-shrbptzh bladder wall X44-yqzd J67-W77-cjwty prostatic apex D42-J91-suwd prostatic apex D23-mid prostate, right anterior D24-mid prostate, left posterior D25-mid prostate, left anterior D26-mid prostate, left posterior W79-sygc prostate, right anterior R20-ysld prostate, right posterior S81-oikk prostate, mid O01-egps prostate, left anterior E67-rfxf prostate, left posterior E(5). Lymph Node(s), Pelvis, [...] possible lymph nodes E2-intact possible lymph node O9-S1-yivsmpvv possible lymph node I5-H6-jpegfxto possible lymph node D9-F87-yonllapt sectioned possible lymph node F(6). Lymph Node(s), [...] possible lymph nodes F2-bisected possible lymph node R2-A7-nhbrcwmo sectioned possible lymph node G(7). Ureter, Left, [...] a 0.4 x 0.2 cm piece of pink-caldreon fibromembranous tissue. The ureter with a lumen is not identified. The specimen is entirely submitted in cassette H1. 4 6:31 PM [facility] Comment:This is an appended report. These results have been appended to a previously preliminary verified report. Microscopic Description Microscopic description is performed 6:31 PM [facility] Comment:This is an appended report. These results have been appended to a previously preliminary verified report. MCRS Yes(A) N/A 6:31 PM [facility] Comment:This is an appended report. These results have been appended to a previously preliminary verified report. Performing Labs The technical component of this testing was completed at [facility]. Stain controls for all stains [...] [facility] Specialty Lab [address] [facility] [address], [address] [place] [address], [facility] [place] [facility] Lab [address] [facility], [address] [place] [address], [facility] * (ABNORMAL) Glucose by meter (12/22/2023 6:55 AM CDT) GLUCOSE BY METER POCT 101(H) 70 - 99 mg/dL 12/22/2023 7:01 AM CDT [facility] POC Blood, Capillary BLOOD SPECIMEN / Unknown 12/22/2023 6:55 AM CDT 12/22/2023 7:01 AM CDT Alvaro Clark MD LAB - BEAKER POCT [facility] POC [facility] [place] [facility] [address] [facility] [address], [address] [place] [address] * Adult Type and Screen (12/22/2023 6:47 AM CDT) ABO/RH(D) A NEG 12/22/2023 6:16 AM CDT [facility] BLOOD BANK Antibody Screen Negative Negative 12/22/2023 6:16 AM CDT [facility] B[facility] BANK SPECIMEN EXPIRATION DATE [id number] 12/22/2023 6:16 AM CDT [facility] BLOOD BANK Blood STRUCTURE OF RIGHT HAND / Unknown Venipuncture / Unknown 12/22/2023 6:47 AM CDT 12/22/2023 6:56 AM CDT Alvaro Clark MD LAB - BLOOD BANK LICHA T ORDER Performing Organization Address [facility] Co de Phone Number BLOOD BANK [address] [place] [address] documented in this encounter [...] analgesic side effects. Hold while on IV CASH MANAGEMENT ASSOCIATE or with regular IV opioid dosing. $Given [...] analgesic side effects. Hold while on IV CASH MANAGEMENT ASSOCIATE or with regular IV opioid dosing. $Given [...] 750 mL in ON-Q C-Bloc select flow ([id number] holds 600-750 mL) dual cath disposable pump [...] by the FDA (see reference link): Yes 3428 ($Given - Provider: Radha Merida RN) alvimopan [...] by the FDA (see reference link): Yes 787 ($Given - Provider: Kelly Nicholas RN) 0832 [...] Merida RN)1325 ($Given - Provider: Shobha Sneed, CARLOS)2132 ($Given - Provider: Kelly Nicholas, CARLOS) 0832 ($Given - Provider: Shobha Sneed RN)1430 ($Given - Provider: Shobha Sneed, CAROLS)2038 ($Given - Provider: Isaac Hutchins, CARLOS) 0702 ($Given - Provider: Isaac Hutchins RN)1335 [...] CARLOS) 0825 ($Given - Provider: Aaron Noonan, CARLSO) pantoprazole (PROTONIX) EC tablet 40 mg 40 [...] Shobha Sneed RN) 0825 ($Given - Provider: aAron Noonan, CARLOS) senna-docusate (SENOKOT-S/PERICOLACE) 8.6-50 MG per tablet 1 tablet 1 tablet, Oral, 2 TIMES DAILY, First dose on Thu12/22/23 at 2100, To prevent constipation. Hold for loose stools Hold for loose stools. 0757 ($Given - Provider: Radha Merida RN)2121 ($Given - Provider: Kelly Nicholas RN) 0832 ($Given - Provider: Shobha Sneed RN)2038 ($Given [...] RN) 0635 (Rate/Dose Change - Provider: Isaac Htuchins RN)0728 (Stopped - Provider: Isaac Hutchins RN) ROPivacaine 0.2% (NAROPIN) 750 mL in ON-Q C-Bloc select flow ([id number] holds 600-750 mL) dual cath disposable pump [...] used when administering multiple Central Nervous System (PRESIDENT COMMERCIAL BANK) depressing meds within a short time frame. [...] analgesic side effects. Hold while on IV CASH MANAGEMENT ASSOCIATE or with regular IV opioid dosing. 0435 [...] analgesic side effects. Hold while on IV CASH MANAGEMENT ASSOCIATE or with regular IV opioid dosing. 0435 [...] analgesic side effects. Hold while on IV CASH MANAGEMENT ASSOCIATE or with regular IV opioid dosing. Or oxyCODONE IR (ROXICODONE) tablet 10 mgJump to med 10 mg, Oral, EVERY 4 HOURS PRN, severe pain, Starting on Thu12/22/23 at 1627, Hold oral PRN dose for analgesic side effects. Notify provider to assess for uncontrolled pain or analgesic side effects. Hold while on IV CASH MANAGEMENT ASSOCIATE or with regular IV opioid dosing. Group [...] provider. documented in this encounter Care Teams Telecommunications Engineer Relationship Specialty Start Date End Date No Ref-Primary, Physician PCP - General 12/22/23 12/27/23 Alvaro Clark MD [address] [place] [address] [phone] Assigned Surgical Provider 07/24/23 Yessica Mcleod PA-C [address] [place] [address] [phone] Assigned Cancer Care Provider 12/22/23 01/21/24 documented as of this encounter
--- OUTSIDE RECORDS SUMMARY | 2024-03-11 12:04 | XMS_ITS | Encounter Summary ---
Author Organization [facility] Address [address] [place] [id number] Care Team Providers Care Billing Machine Operator Name Role Phone Alvaro Clark MD Unavailable System, Provider Not In Primary Care Provider Un available Sixto Whalen APRN EVENT DECORATOR AND DESIGNER Unavailable [phone] Encounter Details Date Type Department Care Team (Latest Contact Info) Description 12/11/2023 Travel Social History Tobacco Use Types Packs/Day Years Used Date Smoking Tobacco: Former Cigarettes 1.5 30 2009 Passive Smoke Exposure: Past Smokeless Tobacco: [...] st Contact Info) Description 04/08/2024 1:00 PM ASSISTANT COMMUNITY MANAGER Lab [facility] [address] [place] [phone] Yessica Mcleod PAJannetC [address] [place], [place] [address] 04/08/2024 1:30 PM ASSISTANT COMMUNITY MANAGER Oncology Visit [address] [facility] [place] [phone] Dylan Guerin PA [address] [place] [address] 04/08/2024 1:30 PM ASSISTANT COMMUNITY MANAGER Infusion Therapy Visit [address] [place] [phone] Ky Torres MD [address] [facility] [address] [place] [address] 05/02/2024 10:30 AM ASSISTANT COMMUNITY MANAGER Lab [address] [place] [phone] Ky Torres MD [address] [facility] [address] [place], [place] [address] 05/02/2024 11:20 AM ASSISTANT COMMUNITY MANAGER Appointment [facility] [address] [place] [phone] Ky Torres MD [address] [facility] [address] [place] [address] 05/06/2024 9:30 AM ASSISTANT COMMUNITY MANAGER Lab [address] [place] [phone] Ky Torres MD [address] [facility] [address] [place], [place] [address] 05/06/2024 10:00 AM ASSISTANT COMMUNITY MANAGER Oncology Visit [address] [place] [phone] Ky Torres MD [address] [facility] [address] [place] [address] 05/06/2024 10:30 AM ASSISTANT COMMUNITY MANAGER Infusion Therapy Visit [facility] [id number] [place] [address] [address] [place] [address] Ky Torres MD [address] [facility] [address] [place] [address] documented as of this encounter Visit Diagnoses Not on filedocumented in this encounter Care Teams Billing Machine Operator Relationship Specialty Start Date End Date System, Provider Not In PCP - General Clinic 08/13/23 12/21/23 Alvaro Clark MD 420 [facility] [address] [place] [address] Assigned Surgical Provider 07/24/23 Sixto Whalen APRN EVENT DECORATOR AND DESIGNER [address] [place] [address] Assigned Cancer Care Provider 10/22/23 12/21/23 documented as of this encounter
--- OUTSIDE RECORDS SUMMARY | 2024-03-11 12:04 | XMS_ITS | Encounter Summary ---
Author Organization [facility] Address [address] [place] [address] Care Team Providers Care Contract Technician Name Role Phone Alvaro Clark MD Unavailable No Ref-Primary, Physician Primary Care Provider Yessica Mcleod PA-C Unavailable Reason for Visit * Auth/Cert Specialty Diagnoses / Procedures Referred By Virgil t Referred To Contact Surgery Diagnoses 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 (H) 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 (H) [C67.9] Procedures AL REMV BLADDER,CONTINENT DIVERSN CYSTECTOMY, pelvic node dissection WITH ILEAL NEOBLADDER CREATION possible ileal conduit [facility] [address] [place] [address] Referral ID Status Reason Start Date Expiration Date Visits Re quested Visits Authorized [id number] 1 1 Encounter Details Date Type Department Care Team (Latest Contact Info) Description 12/22/2023 5:50 AM CDT - 12/25/2023 3:50 PM CDT Hospital Encounter M Formerly [facility] [address] [place] [address] [place] [address] Alvaro Clark MD 420 [facility] [address] [place] [address] Postoperative state (Primary Dx); Bladder [...] Please see comment - Incidental prostatic adenocarcinoma, Spencer score 7 (3+4) - Margins are negative [...] a bowel movement in 3 days, start cyvj-txt-hsyatgr Milkof Magnesia taken twice daily until you [...] on their own within 5-10 days. - [place] will be removed at your follow up [...] your follow-up appointment. - Your nurse or medical case worker will provide written catheter care instructions for [...] a clean towel or dried with a hair-snuff drier. - You may shower with your [...] Thursday through Thursday 8am to 4:30pm: Call [phone] with questions, requests for medication refills, or to schedule or confirm an appointment. - Nights, weekends, or holidays: call the after hours emergency pager - [phone] and tell the wash oil pump operator I would like to page the Urology Resident health information tech. Typically, the on-call provider should return your call within 30 minutes. Please page the on-call provider again if you haven't been contacted as expected. Rarely, the on-call provider will be unable to promptly return a call due to a hospital emergency. If you have paged twice and are still not contacted, ask the hospital wash oil pump operator to page the urology CHIEF-RESIDENT health information tech. - Please note that due to prescribing [...] to reach the Urology resident or PA health information tech - Week [phone] to reach the Urology resident or PA health information tech - Weeknights and weekends December 25, 2023 [...] Noe Erickson MD, MPH Urology Resident, PGY-2 FRONT DESK REPRESENTATIVE medications: Prior to Admission medications Medication Sig [...] questions or concerns regarding this patient. Note financial writer may be unavailable. To access [employer] from intranet: under Applications --> Business Applications select [facility] [employer] and search Urology Adult & Pediatric/[facility]. Please note that any question about a urology inpatient, [place] or [place], should go to job code [id number]. * [...] Noe Erickson MD, MPH Urology Resident, PGY-2 FRONT DESK REPRESENTATIVE medications: Prior to Admission medications Medication Sig [...] questions or concerns regarding this patient. Note financial writer may be unavailable. To access [employer] from intranet: under Applications --> Business Applications select [employer] and search Urology Adult & Pediatric/[facility]. Please note that any question about a urology inpatient, [place] or [place], should go to job code [id number]. * [...] identified Bed Mobility Bed Mobility supine-sit;sit-supine Supine-Sit [place] (Bed Mobility) verbal cues Sit-Supine [place] (Bed Mobility) verbal cues Transfers Transfers sit-stand transfer Sit-Stand Transfer Sit-Stand [place] (Transfers) supervision Balance Balance Assessment no deficits identified Activities of Daily Living BADL Assessment/Intervention bathing;upper body dressing;lower body dressing;clothing fastener management;grooming;toileting Bathing Assessment/Intervention [place] Level (Bathing) set up Comment, (Bathing) Per clinical judgement Upper Body Dressing Assessment/Training Comment, (Upper Body Dressing) Per clinical judgement [place] Level (Upper Body Dressing) independent Lower Body Dressing Assessment/Training [place] Level (Lower Body Dressing) modified independence Clothes Fastener Management [place] Level (Clothes Fastener Management) independent Grooming Assessment/Training [place] Level (Grooming) supervision Toileting [place] Level (Toileting) supervision Clinical Impression Criteria for [...] Evaluation Time OT Eval, Low Complexity Minutes (81920) 10 OT Goals Therapy Frequency (OT) One [...] Management Self-Care/Home Mgmt/ADL, Compensatory, Meal Prep Minutes (55930) 12 Symptoms Noted During/After Treatment (Meal Preparation/Planning Training) increased pain Treatment Detail/Skilled Intervention OT: Facilitated ADL for increased IND within precautions. Pt educated on abdominal precautions, handout provided. Pt completed log roll technique for bed mobility with verbal cues, progressed to mod IND. Reviewed with pt LB dressing within precautions, pt unable to demo figure four, reported he is familiar with using digital art director tool for LB dressing and has slip on shoes he wears. Educated pt on IADLs with 10 # weight restriction. Pt demo'd mod IND mobility in room once set up with IV pole due to multiple lines, completed ADLS SBA and progressed to mod IND-IND. Therapeutic Activities Therapeutic Activity Minutes (42323) 10 Symptoms noted during/after treatment fatigue Treatment [...] MD. Camilla Larkin MD, PGY-2 Urology Resident FRONT DESK REPRESENTATIVE medications: Prior to Admission medications Medication Sig Start Date End Date Taking? Authorizing Provider acetaminophen-caffeine (EXCEDRIN TENSION HEADACHE) 500-65 MG TABS Take 2 tablets by mouth every 6 hours as needed for mild pain (PRN HEADACHE) Yes Reported, Patient diphenhydrAMINE HCl (BENADRYL ALLERGY PO) Take 1 tablet by mouth as needed Yes Reported, Patient Contacting the urology team: Please see [facility] and page on-call clinician with any questions or concerns regarding this patient. Note financial writer may be unavailable. To access [employer] from intranet: under Applications --> Business Applications select [employer] and search Urology Adult & Pediatric/[facility]. Please note that any question about a urology inpatient, [place] or [place], should go to job code [id number]. * Zofia Prasad, CARLOS - 12/22/2023 10:29 PM CDT Admitted/transferred from: [...] cath with red output. BS+, passing flatus. Adams urge sat Diet: Clears. Skin/Incisions/Drains: Midline abd incision, ETHAN in RLQ to bulb, R/L PIV Lines: R/L PIV. L PIV infusing LR 100 ml/hr Pain: Reporting 4/10 pain, managed with oxycodone. documented in this encounter Nursing Notes * Amalia Gonzalez, CARLOS - 12/22/2023 4:29 PM CDT Urology contacted [...] 5:41 AM CDT Goal Outcome Evaluation: Shift [id number] A&Ox4, cooperative, makes needs known. Abdominal pain [...] Nicholas RN - 12/24/2023 3:41 AM CDT [id number] Status: OD#1 s/p cystectomy with ileal neobladder [...] and pt belching. thanks. shobha ho rn [phone] * Plan of Care - Ana Thomason OTR - 12/23/2023 11:53 AM CDT Occupational Therapy Discharge Summary Reason for therapy discharge: All goals and outcomes met, no further needs identified. Progress towards therapy goal(s). See goals on Care Plan in Epic electronic health record for goal details. Goals [...] Date: 12/22/2023 Attending Surgeon: Alvaro Clark MD Senior Ui Developer(s): Alberto Tejeda M.D.-PGY-5 Preoperative Diagnosis(es): High grade [...] in the usual sterile fashion. A #16 Romansh Parry catheter was placed in the bladder. [...] and vein from the lymph node of [place] proximally to join up with the proximal [...] 60 stapler. We opened the windows of [place] for approximately 5 cm alongthe proximal segment [...] sutures. We then performed a standard stapled aaok-eb-cosm functional end-to-end small bowel anastomosis by firing a JORGE 60 stapler along the antimesenteric border and closed the enterotomies for the anastomosis using a TA 60 stapler. The crossing staple lines were reinforced using 3-0 silk suture in a zvtvcm-bg-ietvm fashion. A similar suture was done at [...] away from thepouch. We placed a #19 Romansh Brandon drain into the plane between the [...] Tejeda MD - 12/22/2023 2:24 PM CDT [facility] Brief Operative Note Pre-operative diagnosis: Urothelial carcinoma [...] Implant Name Type Inv. Item Serial No. Steel Burner Lot No. LRB No. Used Action STENT URETERAL BATHHOUSE ATTENDANT DIVERSION 07 [id number] - [id number] Stent STENT URETERAL BATHHOUSE ATTENDANT DIVERSION [id number] [facility] [id number] N/A 1 Implanted Fluids: 3200 crystalloid 250 albumin Admit Urology Urology to irrigate AM and PM Neobladder pathway Alberto Tejeda MD Urology PGY-5 * Pharmacy-Admission Medication History - Uriel Kaba - 12/15/2023 12:03 PM CDT Director New Product Pre-operative Admission Medication History Admission medication history [...] 09/14/23 per dispense history. Changes made to FRONT DESK REPRESENTATIVE medication list: Added: None Deleted: None Changed: None Allergies reviewed with patient and updates made in EHR: yes Medication History Completed By: Uriel Kaba 12/15/2023 12:03 PM FRONT DESK REPRESENTATIVE Med List Medication Sig Last Dose acetaminophen-caffeine (EXCEDRIN TENSION HEADACHE) 500-65 MG TABS Take 2 tablets by mouth every 6 hours as needed for mild pain (PRN HEADACHE) diphenhydrAMINE HCl (BENADRYL ALLERGY PO) Take 1 tablet by mouth as needed Associated attestation - Nabeel Mcghee RPH - 12/15/2023 12:17 PM CDT I was not present during the agronomy internship's interview, but I agree with the documentation. Nabeel Mcghee, Pharm.D, [facility] December 15, 2023 documented in this encounter Plan of Treatment Upcoming Encounters Date Type Department Care Team (Late st Contact Info) Description 04/08/2024 1:00 PM ROLLED SEAT TRIMMER Lab [address] [place] [phone] Yessica Mcleod PA-C [address] [place] [address] 04/08/2024 1:30 PM ROLLED SEAT TRIMMER Oncology Visit [address] [place] [phone] Dylan Guerin PA [address] [place], [place] [phone] 04/08/2024 1:30 PM ROLLED SEAT TRIMMER Infusion Therapy Visit [address] [place] [phone] Ky Torres MD [address] [address] 05/02/2024 10:30 AM ROLLED SEAT TRIMMER Lab [address] [place] [phone] Ky Torres MD [address] [address] 05/02/2024 11:20 AM ROLLED SEAT TRIMMER Appointment [facility] [address] [place] [phone] Ky Torres MD [address] [address] 05/06/2024 9:30 AM ROLLED SEAT TRIMMER Lab [place] [address] [place] [address] [place] [address] Ky Torres MD [address] [address] 05/06/2024 10:00 AM ROLLED SEAT TRIMMER Oncology Visit [address] [place] [address] Ky Torres MD [address] [address] 05/06/2024 10:30 AM ROLLED SEAT TRIMMER Infusion Therapy Visit [address] [place] [address] Ky Torres MD [address] [address] documented as of this encounter Procedures Procedure [...] - BODY FLUIDS OR DERABLES [facility] [place] [address] [facility], [address] [place] [address] * (ABNORMAL) CBC with platelets (12/25/2023 [...] LAB - BLOOD ORDERABL ES [facility] [place] [facility] [address] [facility], [address] [place] [address] * (ABNORMAL) Basic metabolic panel (12/25/2023 [...] LAB - BLOOD ORDERABL ES [facility] [place] [facility] [address] [facility], Room [address] [place] [address] * Phosphorus (12/24/2023 6:16 AM CDT) Phosphorus 2.9 2.5 - 4.5 mg/dL 12/24/2023 7:26 AM CDT [facility] Blood (Portacath) IVAD (Port) / Unknown 12/24/2023 6:16 AM CDT 12/24/2023 6:41 AM CDT Alberto Tejeda MD LAB - BLOOD ORDERABL ES Performing Organization Address [facility]/ZIP Co de Phone Number [facility] [place] [facility] [address] [facility], [address] * Magnesium (12/24/2023 6:16 AM CDT) Pathologist [facility] Magnesium 1.8 1.7 - 2.3 mg/dL 12/24/2023 10:59 AM CDT [facility] Blood (Portacath) IVAD (Port) / Unknown 12/24/2023 6:16 AM CDT 12/24/2023 6:41 AM CDT Alberto Tejeda MD LAB - BLOOD ORDERABL ES Performing Organization Address City/[facility] Co de Phone Number [facility] [place] [facility] [address] [facility], [address] * (ABNORMAL) CBC with platelets (12/24/2023 [...] LAB - BLOOD ORDERABL ES [facility] [address] [facility], [address] [place] [address] * (ABNORMAL) Basic metabolic panel (12/24/2023 [...] LAB - BLOOD ORDERABL ES [facility] [place] [facility] [address] [facility], [address] [place] [address] * (ABNORMAL) CBC with platelets (12/23/2023 [...] LAB - BLOOD ORDERABL ES [facility] [place] [facility] [address] [facility], [address] [place] [address] * (ABNORMAL) Basic metabolic panel (12/23/2023 [...] 7:04 AM CDT 12/23/2023 7:10 AM CDT Alberot Tejeda MD LAB - BLOOD ORDERABL ES Performing Organization Address City/[facility]/ZIP Co de Phone Number [facility] [place] [facility] [address] [facility], [address] [place] [address] * (ABNORMAL) Glucose by meter (12/23/2023 6:42 AM CDT) GLUCOSE BY METER POCT 118(H) 70 - 99 mg/dL 12/23/2023 6:49 AM CDT [facility] POC Blood, Capillary BLOOD SPECIMEN / Unknown 12/23/2023 6:42 AM CDT 12/23/2023 6:49 AM CDT Alvaro Clark MD LAB - BEAKER POCT Performing Organization Address City/[facility]/ZIP Co de Phone Number [facility] POC [facility] [place] [facility] [address] [facility], [address] [place] [address] * Platelet count (12/22/2023 9:55 PM CDT) Platelet Count 179 150 - 450 10e3/uL 12/22/2023 10:12 PM CDT [facility] Blood STRUCTURE OF RIGHT HAND / Unknown IVAD (Port) / Unknown 12/22/2023 9:55 PM CDT 12/22/2023 10:04 PM CDT Alberto Tejeda MD LAB - BLOOD ORDERABL ES [facility] [place] [facility] [address] [facility], [address] [place] [address] * XR Abdomen Port 1 View [...] findings. ALF MEHTA DO Alberto Tejeda MD [facility] DIAGNOSTIC IMAGI NG ORDERABLES * (ABNORMAL) Surgical Pathology Exam (12/22/2023 8:54 AM CDT) Case Report Surgical Pathology Report ? Case: [id number] ? Authorizing Provider: ??Alvaro Clark MD ?Collected: [...] PROSTATE GLAND: RADICAL PROSTATECTOMY - All Specimens - Protocol posted: 02/18/2023 SPECIMEN ?? Procedure: [...] 9:15 AM Intra op performed at:[facility], [facility] [place] [facility], [address] [place] [address], [facility], [address] [address] Intra-op Dx verbally delivered to Dr. Amber Tanner(2). Ureter, Right, Right distal ureteral margin: BFS1: Negative for malignancy John Carey MD on 12/22/2023 at 9:27 AM Intra op performed at:[facility], [facility], [address] [facility], [facility], Room [address] [address] Intra-op Dx verbally delivered to Dr. Amber Segura(3). Urethra, urethral margin: CFS1: - No evidence of malignancy Tracie Gonzalez MD on 12/22/2023 at 10:41 AM Intra op performed at:[facility], [facility], [address] [facility], [facility], [address] [address] Intra-op Dx verbally delivered to Dr. Clark [...] reveal no mass deposits or lymph nodes. Hospital Insurance Clerk sections are submitted. Gross photography is taken. D1-urethral margin, en face D2-right ureter margin, en face D3-left ureter margin, en face D4-lesion to right ureteral orifice D5-lesion to left ureteral orifice F9-E82-zbanzx from dome to trigone C64-nqzxsi to seminal vesicles Z89-fuawg lateral wall B09-wyynjyim bladder wall K09-nayk T02-Q08-zkmux prostatic apex Z41-U23-tmpk prostatic apex D23-mid prostate, right anterior D24-mid prostate, left posterior D25-mid prostate, left anterior D26-mid prostate, left posterior N62-idne prostate, right anterior C60-uzkx prostate, right posterior U97-jlnu prostate, mid A87-fxri prostate, left anterior C87-caum prostate, left posterior E(5). Lymph Node(s), Pelvis, [...] possible lymph nodes E2-intact possible lymph node I5-G8-fyyzhkpk possible lymph node O1-B1-vjskxktg possible lymph node I9-Q05-hoprtkew sectioned possible lymph node F(6). Lymph Node(s), [...] possible lymph nodes F2-bisected possible lymph node S0-P2-hnatjjee sectioned possible lymph node G(7). Ureter, Left, [...] of this testing was completed at [facility]. Stain controls for all stains resulted within this report have been reviewed and show appropriate reactivity. 4 6:31 PM CDT [facility] Comment:This is an appended report. These results have been appended to a previously preliminary verified report. Case Images 07/29/202 4 6:31 PM CDT SPECIALTY LABS Tissue [...] CDT 12/22/2023 3:05 PM CDT Al[facility]o [facility] Specialty Lab [address] [facility], [address] [address], [facility] [address] [facility], [address] [place] [address], [facility] * (ABNORMAL) Glucose by meter (12/22/2023 6:55 AM CDT) GLUCOSE BY METER POCT 101(H) 70 - 99 mg/dL 12/22/2023 7:01 AM CDT [facility] POC Blood, Capillary BLOOD SPECIMEN / Unknown 12/22/2023 6:55 AM CDT 12/22/2023 7:01 AM CDT Alvaro Clark MD LAB - BEAKER POCT [facility] POC [facility] [place] [facility] [address] [facility], [address] [place] [address], [facility] * Adult Type and Screen (12/22/2023 6:47 AM CDT) ABO/RH(D) A NEG 12/22/2023 6:16 AM CDT [facility] Antibody Screen Negative Negative 12/22/2023 6:16 AM CDT [facility] SPECIMEN EXPIRATION DATE [id number] 12/22/2023 6:16 AM CDT [facility] Blood STRUCTURE OF RIGHT HAND / Unknown Venipuncture / Unknown 12/22/2023 6:47 AM CDT 12/22/2023 6:56 AM CDT Alvaro Clark MD LAB - BLOOD BANK LICHA T ORDER Performing Organization Address [facility] Co de Phone Number BLOOD BANK [address] [place] [address] documented in this encounter Visit Diagnoses [...] analgesic side effects. Hold while on IV SLIPPER MAKER or with regular IV opioid dosing. $Given [...] analgesic side effects. Hold while on IV SLIPPER MAKER or with regular IV opioid dosing. $Given [...] 750 mL in ON-Q C-Bloc select flow ([id number] holds 600-750 mL) dual cath disposable pump [...] 2130 ($Given - Provider: Kelly Nicholas RN) 0832 [...] Provider: Radha Merida RN)1325 ($Given - Provider: Shobah Sneed RN)213 ($Given - Provider: Kelly Nicholas RN) 0832 ($Given - Provider: Shobha Sneed RN)1430 ($Given - Provider: Shobha Sneed, CARLOS)2038 ($Given [...] post-operative pain 0757 ($Given - Provider: Radha Merdia RN)1324 ($Given - Provider: Shobha Sneed, CARLOS)2121 ($Given - Provider: Kelly Nicholas RN) 0832 ($Given - Provider: Shobha Sneed RN)1429 ($Given - Provider: Shobha Sneed, CARLOS)2038 ($Given [...] Merida RN)1602 ($Given - Provider: Shobha Sneed CARLOS) 0029 ($Given - Provider: Patsy Bryant [...] 750 mL in ON-Q C-Bloc select flow ([id number] holds 600-750 mL) dual cath disposable pump [...] used when administering multiple Central Nervous System (HEAT TREATING BLUER) depressing meds within a short time frame. [...] for sedation. 0830 ($Given - Provider: Shobha Sneed, CARLOS)1429 ($Given - Provider: Shobha Sneed, RN)2046 ($Given - Provider: Isaac Hutchins RN) [...] analgesic side effects. Hold while on IV SLIPPER MAKER or with regular IV opioid dosing. 0435 ($Given - Provider: Oksana Flor RN)1601 (See Alternative - Provider: Shobha Sneed, CARLOS) 0015 (See Alternative - Provider: Patsy Bryant [...] analgesic side effects. Hold while on IV SLIPPER MAKER or with regular IV opioid dosing. 0435 [...] lock dormant line, Starting on Thu12/22/23 at 0 0655 ($Given - Provider: Debbie Cassidy - Comment: lab draw 10ml pre-flush) 0615 ($Given - Provider: Tano Jacome) 0637 ($Given - Provider: Danielle Wilson - Comment: [...] analgesic side effects. Hold while on IV SLIPPER MAKER or with regular IV opioid dosing. Or oxyCODONE IR (ROXICODONE) tablet 10 mgJump to med 10 mg, Oral, EVERY 4 HOURS PRN, severe pain, Starting on Thu12/22/23 at 1627, Hold oral PRN dose for analgesic side effects. Notify provider to assess for uncontrolled pain or analgesic side effects. Hold while on IV SLIPPER MAKER or with regular IV opioid dosing. Group [...] provider. documented in this encounter Care Teams Contract Technician Relationship Specialty Start Date End Date No Ref-Primary, Physician PCP - General 12/22/23 12/27/23 Alvaro Clark MD [address] [address] Assigned Surgical Provider 07/24/23 Yessica Mcleod PA-C [address] [place] [phone] Assigned Cancer Care Provider 12/22/23 01/21/24 documented as of this encounter
--- OUTSIDE RECORDS SUMMARY | 2024-03-11 12:04 | XMS_ITS | Encounter Summary ---
Author Organization [facility] Address [address] [place] [address] Care Team Providers Care Service Attendant Cafeteria Name Role Phone Alvaro Clark MD Unavailable System, Provider Not In Primary Care Provider Un available Ky Torres MD Unavailable [phone] Sixto Whalen APRN ENVIRONMENTAL SAMPLER Unavailable [phone] No Ref-Primary, Physician Primary Care Provider Yessica Mcleod PA-C Unavailable Bhavin Gardner Primary Care Provider [phone] Ky Torres MD Unavailable [phone] Encounter Details Date Type Department Care Team (Late st Contact Info) Description 09/28/2023 [facility] [place] [id number] [place] [address] [address] [facility] [place] [address] Charlie Almonte, RN Urothelial cancer [...] Contact Info) Description 04/08/2024 1:00 PM CLINICAL SERVICES PROFESSIONAL Lab [address] [place] [address] Yessica Mcleod PA-C 909 [place], [place] 9[address] 04/08/2024 1:30 PM CLINICAL SERVICES PROFESSIONAL Oncology Visit [address] [place] [address] Dylan Guerin PA 909 [place] [address] 04/08/2024 1:30 PM CLINICAL SERVICES PROFESSIONAL Infusion Therapy Visit [address] [place] [address] Ky Torres MD [address] 76[address] 05/02/2024 10:30 AM CLINICAL SERVICES PROFESSIONAL Lab [address] [place] [address] Ky Torres MD 420 [facility] 480 [place] [address] 05/02/2024 11:20 AM CLINICAL SERVICES PROFESSIONAL Appointment [facility] Imaging [address] [place] [address] Ky Torres MD 420 [facility] 480 [place], [place] [address] 05/06/2024 9:30 AM CLINICAL SERVICES PROFESSIONAL Lab [address] [place] [address] Ky Torres MD 420 [facility] [address] [place] [address] 05/06/2024 10:00 AM CLINICAL SERVICES PROFESSIONAL Oncology Visit [address] [place] [address] Ky Torres MD [address] [address] 05/06/2024 10:30 AM CLINICAL SERVICES PROFESSIONAL Infusion Therapy Visit [address] [place] [address] Ky Torres MD 420 [facility] 480 [place] [address] documented as of this encounter Visit Diagnoses Diagnosis Urothelial cancer (H)- Primary Malignant neoplasm of other specified sites of urinary organs documented in this encounter Care Teams Service Attendant Cafeteria Relationship Specialty Start Date End Date System, Provider Not In PCP - General Clinic 08/13/23 12/21/23 No Ref-Primary, Physician PCP - General 12/22/23 12/27/23 Bhavin Gardner [address] [place] [address] PCP - General Family Medicine 12/28/23 Alvaro Clark MD 420 [facility] [address] [place] [address] Assigned Surgical Provider 07/24/23 Ky Torres MD [address] [id number] Assigned Cancer Care Provider 09/22/23 10/21/23 Sixto Whalen APRN CNP [address] [place] [address] 964755 Assigned Cancer Care Provider 10/22/23 12/21/23 Yessica Mcleod PA-C [address] [place] [address] Assigned Cancer Care Provider 12/22/23 01/21/24 Ky Torres MD [address] [place] [address] Assigned Cancer Care Provider 01/22/24 documented as of this encounter
--- OUTSIDE RECORDS SUMMARY | 2024-03-11 12:04 | XMS_ITS | Encounter Summary ---
Author Organization [facility] Address [address] [place] [address] Care Team Providers Care Top Dyeing Machine Tender Name Role Phone Alvaro Clark MD Unavailable System, Provider Not In Primary Care Provider Un available Sixto Whalen APRN SUPPLY CHAIN COORDINATOR Unavailable [phone] Encounter Details Date Type Department Care Team (Late st Contact Info) Description 12/11/2023 PRE VISIT [facility] [address] 5th [place] [address] Rizwana Tejeda APRN SUPPLY CHAIN COORDINATOR 909 [place] [address] Social History Tobacco Use Types [...] st Contact Info) Description 04/08/2024 1:00 PM DATABASE SOFTWARE TECHNICIAN Lab [address] [place] [phone] Yessica Mcleod PA-C 909 [place] [address] 04/08/2024 1:30 PM DATABASE SOFTWARE TECHNICIAN Oncology Visit [address] [place] [address] [place] Guerin PA 9 [place], [place] [address] 04/08/2024 1:30 PM DATABASE SOFTWARE TECHNICIAN Infusion Therapy Visit [place] [address] [place] [address] Ky Torres MD [address] 0072[address] 05/02/2024 10:30 AM DATABASE SOFTWARE TECHNICIAN Lab [address] [place] [address] Ky Torres MD [address] [address] 05/02/2024 11:20 AM DATABASE SOFTWARE TECHNICIAN Appointment [facility] Imaging [address] [place] [address] [place] [address] Ky Torres MD 420 [facility] 480 [place] [address] 05/06/2024 9:30 AM DATABASE SOFTWARE TECHNICIAN Lab [address] [place] [address] Ky Torres MD 420 [facility] 480 [place] [address] 05/06/2024 10:00 AM DATABASE SOFTWARE TECHNICIAN Oncology Visit [address] [place] [address] Ky Torres MD [address] [address] 05/06/2024 10:30 AM DATABASE SOFTWARE TECHNICIAN Infusion Therapy Visit [address] [place] [address] Ky Torres MD [address] [address] documented as of this encounter Visit Diagnoses Not on filedocumented in this encounter Care Teams Top Dyeing Machine Tender Relationship Specialty Start Date End Date System, Provider Not In PCP - General Clinic 08/13/23 12/21/23 Alvaro Clark MD 420 [facility] 394 [place], [place] [address]655 Assigned Surgical Provider 07/24/23 Sixto Whalen APRN CNP [address] [place] [address] Assigned Cancer Care Provider 10/22/23 12/21/23 documented as of this encounter
--- OUTSIDE RECORDS SUMMARY | 2024-03-11 12:04 | XMS_ITS | Encounter Summary ---
Author Organization [facility] [place] Address [address] [place] [address] Care Team Providers Care Malthouse Laborer Name Role Phone Alvaro Clark MD Unavailable System, Provider Not In Primary Care Provider Un available Sixto Whalen APRN MECHANICAL DESIGNER Unavailable [phone] Reason for Visit * Reason Onset Date Comments Schedule Surgery 11/26/2023 Encounter Details Date Type Department Care Team (Late st Contact Info) Description 11/26/2023 Telephone [facility] [address] 4th [place] [address] Alvaro Clark MD [address] [facility] [address] [facility] [address] [place] [address] Schedule Surgery Social History Tobacco [...] Boswell RN - 12/18/2023 9:57 AM CDT Staple Processing Machine Operator called patient this morning to complete Pre-Op Teaching for surgery scheduled with Dr. Clark on 12/22/2023. Staple Processing Machine Operator discussed that he did not receive surgical packet in mail (per note from Jennifer Griggs on 11/26/23-mailed per USPS on 11/26/23). Staple Processing Machine Operator discussed that Pre-Op Teaching was completed on 12/11/23. -Pre Op exam completed on 12/11/23 with Rizwana Tejeda APRN CNP. -Preparing for Surgery Instructions reviewed with patient per Marysol Hunter RN (Patient Instruction Note). Patient confirms he received copy of these instructions. Staple Processing Machine Operator reviewed Preparing for Surgery Instructions with [...] visit is not scheduled at this time. Staple Processing Machine Operator will send message to scheduling department to schedule post op visit. Patient will talk with Dr. Clark morning of surgery regarding questions regarding plan for voidingafter surgery (Neobladder or Ileal Conduit). Staple Processing Machine Operator instructed patient to contact our office if any further questions or concerns prior to scheduled surgery on 12/22/2023. Evette Boswell RN, BSN, OCN on 12/18/2023 at 10:13 AM * Telephone Encounter - Indu Jennifer - 11/26/2023 11:21 AM CDT Called patient to discuss surgery scheduling with Dr. Clark. Spoke with patient and scheduled surgery with Dr. Clark for 12/22/23 at [place]. H&P scheduled with PAC scheduled for 12/08/23 at 9:00 AM. Patient is aware they will get their arrival time for surgery at PAC appointment. Per provider, 10 or 21 days postop for postop visit, stent removal and/or cath removal based on thetype of diversion patient still undecided. Staple Processing Machine Operator will mail surgery packet via USPS on 11/26/23. The patient has no further questions regarding surgery at this time. Patient has writers call back number [phone]. Jennifer Griggs on 11/26/2023 at 11:22 AM documented in this encounter Plan of Treatment Upcoming Encounters Date Type Department Care Team (Late st Contact Info) Description 04/08/2024 1:00 PM REFERENCE TEST CLERK Lab [address] [place] [address] Yessica Mcleod PA-C [address] [place] [address] 04/08/2024 1:30 PM REFERENCE TEST CLERK Oncology Visit [place] [address] [place] [address] [place] [address] [place] Guerin PA [address] [place] [address] 6027[address] 04/08/2024 1:30 PM REFERENCE TEST CLERK Infusion Therapy Visit [place] [address] [place] [address] [place] [address] Ky Torres MD [address] [place] [address] 05/02/2024 10:30 AM REFERENCE TEST CLERK Lab [address] [place] [address] Ky Torres MD [address] [place] [address] [facility] [address] [place] [address] 05/02/2024 11:20 AM REFERENCE TEST CLERK Appointment [facility] Imaging [address] [place] [place] [address] [place] [address] Ky Torres MD [address] [place] [address] [facility] [address] [place], [place] [address] 05/06/2024 9:30 AM REFERENCE TEST CLERK Lab [address] [place] [address] Ky Torres MD [address] [place] [address] [address] 05/06/2024 10:00 AM REFERENCE TEST CLERK Oncology Visit [address] [place] [address] Ky Torres MD [address] [place] [address] [address] 05/06/2024 10:30 AM REFERENCE TEST CLERK Infusion Therapy Visit [address] [place] [address] Ky Torres MD [address] [place] [address] [facility] [address] [place] [address] documented as of this encounter Visit Diagnoses Not on filedocumented in this encounter Care Teams Malthouse Laborer Relationship Specialty Start Date End Date System, Provider Not In PCP - General Clinic 08/13/23 12/21/23 Alvaro Clark MD [address] [address] Assigned Surgical Provider 07/24/23 Sixto Whalen APRN CNP [address] [place] [address] Assigned Cancer Care Provider 10/22/23 12/21/23 documented as of this encounter
--- OUTSIDE RECORDS SUMMARY | 2024-03-11 12:04 | XMS_ITS | Encounter Summary ---
Author Organization [facility] Address [address] [place] [address] Care Team Providers Care Sap Abap Developer Name Role Phone Alvaro Clark MD Unavailable System, Provider Not In Primary Care Provider Un available Sixto Whalen APRN INTERNET CAFE MANAGER Unavailable [phone] No Ref-Primary, Physician Primary Care Provider Yessica Mcleod PA-C Unavailable Bhavin Gardner Primary Care Provider [phone] Ky Torres MD Unavailable [phone] Encounter Details Date Type Department Care Team (Late st Contact Info) Description 12/01/2023 [facility] Medical Advice [address] [facility] [place] [address] Sabra Wilcox Social History Tobacco [...] st Contact Info) Description 04/08/2024 1:00 PM HANDKERCHIEF SAMPLE CLERK Lab [facility] [address] [place] [address] Yessica Mcleod PA-C 909 [place], [place] [address] 04/08/2024 1:30 PM HANDKERCHIEF SAMPLE CLERK Oncology Visit [address] [place] [address] [place] Guerin PA 909 [place], [place] [address] 04/08/2024 1:30 PM HANDKERCHIEF SAMPLE CLERK Infusion Therapy Visit [address] [place] [address] Ky Torres MD [address] [address] 05/02/2024 10:30 AM HANDKERCHIEF SAMPLE CLERK Lab [place] [address] [place] [address] [place] [address] Ky Torres MD [address] [address] 05/02/2024 11:20 AM HANDKERCHIEF SAMPLE CLERK Appointment [facility] Imaging [address] [place] [address] [place] [address] Ky Torres MD [address] [address] 05/06/2024 9:30 AM HANDKERCHIEF SAMPLE CLERK Lab [place] [address] [place] [address] [place] [address] Ky Torres MD 420 [facility] 480 [place] [address] 05/06/2024 10:00 AM HANDKERCHIEF SAMPLE CLERK Oncology Visit [address] [place] [address] Ky Torres MD 420 [facility] 480 [place] [address] 05/06/2024 10:30 AM HANDKERCHIEF SAMPLE CLERK Infusion Therapy Visit [address] [place] [address] Ky Torres MD [address] [address] documented as of this encounter Visit Diagnoses Not on filedocumented in this encounter Care Teams Sap Abap Developer Relationship Specialty Start Date End Date System, Provider Not In PCP - General Clinic 08/13/23 12/21/23 No Ref-Primary, Physician PCP - General 12/22/23 12/27/23 Bhavin Gardner [facility] [place] [address] PCP - General Family Medicine 12/28/23 Alvaro Clark MD [address] [address] Assigned Surgical Provider 07/24/23 Sixto Whalen APRN CNP [address] [place] [address] Assigned Cancer Care Provider 10/22/23 12/21/23 Yessica Mcleod PA-C [address] [place] [address] Assigned Cancer Care Provider 12/22/23 01/21/24 Ky Torres MD [address] [place] [address] Assigned Cancer Care Provider 01/22/24 documented as of this encounter
--- OUTSIDE RECORDS SUMMARY | 2024-03-11 12:04 | XMS_ITS | Encounter Summary ---
Author Organization [facility] Address [address] [place] [address]. [place] [address] Care Team Providers Care Golf Cart Maker Name Role Phone Alvaro Clark MD Unavailable System, Provider Not In Primary Care Provider Un available Sixto Whalen APRN MAGAZINE PUBLISHER Unavailable [phone] No Ref-Primary, Physician Primary Care Provider Yessica Mcleod PA-C Unavailable Bhavin Gardner Primary Care Provider [phone] Ky Torres MD Unavailable [phone] Encounter Details Date Type Department Care Team (Late st Contact Info) Description 11/17/2023 MyC Medical Advice [facility] [place] [address], [address] [place] [address] Sixto Whalen APRN MAGAZINE PUBLISHER 909 [place] [address] Social History Tobacco Use Types Packs/Day Years [...] st Contact Info) Description 04/08/2024 1:00 PM TELEMARKETING REPRESENTATIVE Lab [address] [place] [address] Yessica Mcleod PA-C 909 [place], [place] [address] 04/08/2024 1:30 PM TELEMARKETING REPRESENTATIVE Oncology Visit [address] [place] [address] [place] Guerin PA 909 [place], [place] [address] 04/08/2024 1:30 PM TELEMARKETING REPRESENTATIVE Infusion Therapy Visit [address] [place] [address] Ky Torres MD [address] [address] 05/02/2024 10:30 AM TELEMARKETING REPRESENTATIVE Lab [address] [place] [address] Ky Torres MD 420 [facility] 480 [place] [address] 05/02/2024 11:20 AM TELEMARKETING REPRESENTATIVE Appointment [facility] Imaging [address] [place] [place] [address] Ky Torres MD 420 [facility] 480 [place] [address] 05/06/2024 9:30 AM TELEMARKETING REPRESENTATIVE Lab [address] [place] [address] Ky Torres MD 420 [facility] 480 [place] [address] 05/06/2024 10:00 AM TELEMARKETING REPRESENTATIVE Oncology Visit [address] [place] [address] Ky Torres MD [address] [address] 05/06/2024 10:30 AM TELEMARKETING REPRESENTATIVE Infusion Therapy Visit [address] [place] [address] Ky Torres MD 420 [facility] 480 [place] [address] documented as of this encounter Visit Diagnoses Not on filedocumented in this encounter Care Teams Golf Cart Maker Relationship Specialty Start Date End Date System, Provider Not In PCP - General Clinic 08/13/23 12/21/23 No Ref-Primary, Physician PCP - General 12/22/23 12/27/23 Bhavin Gardner [address] [place] [address] PCP - General Family Medicine 12/28/23 Alvaro Clark MD 420 [facility] 394 [place] [address] Assigned Surgical Provider 07/24/23 Sixto Whalen APRN MAGAZINE PUBLISHER [address] [place] [address] Assigned Cancer Care Provider 10/22/23 12/21/23 Yessica Mcleod PA-C [address] [place] [address] Assigned Cancer Care Provider 12/22/23 01/21/24 Ky Torres MD [address] [place] [address]655 Assigned Cancer Care Provider 01/22/24 documented as of this encounter
--- OUTSIDE RECORDS SUMMARY | 2024-03-11 12:04 | XMS_ITS | Encounter Summary ---
Author Organization [facility] Address [address] [place] [address] Care Team Providers Care Nurse Aide Name Role Phone Alvaro Clark MD Unavailable System, Provider Not In Primary Care Provider Un available Sixto Whalen APRN SNAGGER Unavailable [phone] Reason for Visit * Reason Comments Pre-Op Exam Encounter Details Date Type Department Care Team (Latest Contact Info) Description 12/11/2023 8:00 AM CDT Office Visit [facility] Preoperative Assessment Center [address] [place] [address] Rizwana Tejeda APRN [address] [address] Preop examination (Primary Dx); 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 (H) Anesthesia Record Procedure Summary Procedure Name Responsible Anesthesiologist Anesthesia Start Time Anesthesia Stop Time CYSTECTOMY, pelvic node dissection WITH ILEAL NEOBLADDER CREATION (Abdomen) Forest Olson MD 12/22/23 0748 12/22/23 1437 Events Date Time Event Comment 12/22/2023 0654 CHIEF DEPUTY SHERIFF Ready for Procedure 0701 0748 An Start Anesthesia Star t is [...] Single 08/28/23; 0916; Right; Chest wall; Yes; [id number]; Yes; Yes; 6 Fr; 21 cm; SVC/RA [...] Cowan 2; Grade View: 1; Placement Person: CHIEF DEPUTY SHERIFF; Attempts: 1 12/22/23 0802 by Nessa Pereira [...] Drain 12/22/23; 1408; RLQ ; Bulb; 19 Amharic 12/22/23 1408 by Natasha Alejo RN 12/25/23 [...] Please come to: Please come to: Reginald Morrow Allison [facility] [address] [place] [address] The [facility] ([facility] [place] Patient/Visitor Ramp is at [address] Patients and visitors who self-park will receive the reduced hospital parking rate. If the Patient /Visitor Ramp is full, please follow the signs to the Dish[employer] car park located at the main hospital entrance. [employer] parking is available (24 hours/ 7 days a week) Discounted parking pass options are available for patients and visitors. They can be purchased at the [employer] desk at the main hospital entrance. - Stop at the security desk and they will direct surgery patients to the Surgery Check in and Family Lounge. [phone] - If you need directions, a wheelchair [...] or fragrance. - No makeup or fingernail turkmen. - Bring your ID and insurance card. [...] contact the Pre Admission Nursing Office at [phone]. - If you have health changes between [...] others Clean your hands with alcohol hand torch straightener. Do this when you arrive at and [...] encounter H&P Notes * Rizwana Tejeda APRN SNAGGER - 12/11/2023 8:00 AM CDT Images from [...] P in preparation for Procedure Information Case: [id number] Date/Time: 12/22/23 0800 Procedure: CYSTECTOMY, pelvic node dissection WITH ILEAL NEOBLADDER CREATION possible ileal conduit(Abdomen) Anesthesia type: General Diagnosis: 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 (H) [C67.9] Pre-op diagnosis: 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 (H) [C67.9] Location: U OR / OR Providers: Alvaro Clark MD [...] BLADDER TUMOR; Surgeon: Alvaro Clark MD; Location[facility] Prior to Admission Medications Current Outpatient [...] Resource Strain: High Risk (06/01/2021) Received from [facility] Financial Resource Strain Difficulty of Paying Living Expenses: Not on file Difficulty of Paying Living Expenses: Not on file Food Insecurity: Not on file Transportation Needs: Not on file Physical Activity: Not on file Stress: Not on file Social Connections: Unknown (08/15/2021) Received from [employer], [facility] [facility] Social Connections Frequency of Communication with Friends [...] but 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 Denies any exertional dyspnea or [...] 196 Legend: (L) Low (H) High Assessment Olge Richard is a 63 year old male [...] time: 7 minutes Total time: 24 minutes Rizwanakristin Tejeda APRN CNP Preoperative Assessment Center [facility] documented in this encounter Plan of Treatment Upcoming Encounters Date Type Department Care Team (Late st Contact Info) Description 04/08/2024 1:00 PM FUEL DISTRIBUTION SYSTEM OPERATOR Lab [address] [place] [phone] Yessica Mcleod PAJannetC [address] [place], [place] [address] 04/08/2024 1:30 PM FUEL DISTRIBUTION SYSTEM OPERATOR Oncology Visit [address] [place] [phone] Dylan Guerin PA 909 [place] [address] 04/08/2024 1:30 PM FUEL DISTRIBUTION SYSTEM OPERATOR Infusion Therapy Visit [address] [place] [address] Ky Torres MD [address] [place] [address] 05/02/2024 10:30 AM FUEL DISTRIBUTION SYSTEM OPERATOR Lab [place] [address] [place] [address] [place] [address] Ky Torres MD [address] [address] 05/02/2024 11:20 AM FUEL DISTRIBUTION SYSTEM OPERATOR Appointment [facility] Imaging [address] [place] [address] [place] [address] Ky Torres MD [address] [facility] 480 [place] [address] 05/06/2024 9:30 AM FUEL DISTRIBUTION SYSTEM OPERATOR Lab [facility] [address] [place] [address] [address] [place] [address] Ky Torres MD [address] [address] 05/06/2024 10:00 AM FUEL DISTRIBUTION SYSTEM OPERATOR Oncology Visit [address] [place] [address] Ky Torres MD [address] [place] [address] [address] 05/06/2024 10:30 AM FUEL DISTRIBUTION SYSTEM OPERATOR Infusion Therapy Visit [facility] [address] [place] [address] [address] [place] [address] Ky Torres MD [address] [place] [address] [address] documented as of this encounter Results * Basic metabolic panel (12/11/2023 8:32 AM CDT) Pathologist [facility] Sodium 140 135 - 145 mmol/L 12/11/2023 9:04 AM CDT [facility] Potassium 4.8 3.4 - 5.3 mmol/L 12/11/2023 9:04 AM CDT [facility] Chloride 103 98 - 107 mmol/L 12/11/2023 9:04 AM CDT [facility] Carbon Dioxide (CO2) 28 22 - 29 mmol/L 12/11/2023 9:04 AM CDT [facility] Anion Gap 9 7 - 15 mmol/L 12/11/2023 9:04 AM CDT [facility] Urea Nitrogen 14.4 8.0 - 23.0 mg/dL 12/11/2023 9:04 AM CDT [facility] Creatinine 0.86 0.67 - 1.17 mg/dL 12/11/2023 9:04 AM CDT [facility] GFR Estimate >90 >60 mL/min/1.7 3m2 12/11/2023 9:04 AM CDT [facility] Comment:eGFR calculated us2020 CKD-EPI equation. Calcium 9.2 8.8 - 10.2 mg/dL 12/11/2023 9:04 AM CDT [facility] Glucose 99 70 - 99 mg/dL 12/11/2023 9:04 AM CDT [facility] Blood STRUCTURE OF LEFT UPPER LIMB / Unknown Venipuncture / Unknown 12/11/2023 8:32 AM CDT 12/11/2023 8:32 AM CDT Rizwana Tejeda APRN SNAGGER LAB - BLOO D ORDERABLES [facility] Clinics and Surgery Center [facility] [address] [facility] 1st [place] [address] * (ABNORMAL) CBC with platelets (12/11/2023 8:32 AM CDT) WBC Count 7.1 4.0 - 11.0 10e3/uL 12/11/2023 8:38 AM CDT [facility] RBC Count 3.91(L) 4.40 - 5.90 10e6/uL 12/11/2023 8:38 AM CDT [facility] Hemoglobin 11.4(L) 13.3 - 17.7 g/dL 12/11/2023 8:38 AM CDT [facility] Hematocrit 34.8(L) 40.0 - 53.0 % 12/11/2023 8:38 AM CDT [facility] MCV 89 78 - 100 fL 12/11/2023 8:38 AM CDT [facility] MCH 29.2 26.5 - 33.0 pg 12/11/2023 8:38 AM CDT [facility] MCHC 32.8 31.5 - 36.5 g/dL 12/11/2023 8:38 AM CDT [facility] RDW 16.1(H) 10.0 - 15.0 % 12/11/2023 8:38 AM CDT [facility] Platelet Count 196 150 - 450 10e3/uL 12/11/2023 8:38 AM CDT [facility] Blood STRUCTURE OF LEFT UPPER LIMB / Unknown Venipuncture / Unknown 12/11/2023 8:32 AM CDT 12/11/2023 8:32 AM CDT Rizwana Tejeda APRN SNAGGER LAB - BLOO D ORDERABLES [facility] Clinics and Surgery Center [address] [place] [address] documented in this encounter Visit Diagnoses Diagnosis Preop examination- Primary Preoperative examination, unspecified 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 (H) documented in this encounter Care Teams Nurse Aide Relationship Specialty Start Date End Date System, Provider Not In PCP - General Clinic 08/13/23 12/21/23 Alvaro Clark MD [address] [place] [address] Assigned Surgical Provider 07/24/23 Sixto Whalen APRN SNAGGER [address] [place] [address] Assigned Cancer Care Provider 10/22/23 12/21/23 documented as of this encounter
--- OUTSIDE RECORDS SUMMARY | 2024-03-11 12:04 | XMS_ITS | Encounter Summary ---
Author Organization [facility] Address [address] [place] [address] Care Team Providers Care Metal Bonding Press Operator Name Role Phone Alvaro Clark MD Unavailable System, Provider Not In Primary Care Provider Un available Sixto Whalen APRN, CNP Unavailable [phone] Encounter Details Date Type Department Care Team (Late st Contact Info) Description 12/11/2023 9:00 AM CDT Lab [address] 1st [place] [address] Preop examination; Urothelial carcinoma of [...] st Contact Info) Description 04/08/2024 1:00 PM STEEL PLATE PRINTER Lab [address] [place] [address] Yessica Mcleod PA-C 909 [place] [address] 04/08/2024 1:30 PM STEEL PLATE PRINTER Oncology Visit [address] [place] [address] Dylan Guerin PA [address]09 [place], [place] [address] 04/08/2024 1:30 PM STEEL PLATE PRINTER Infusion Therapy Visit [address] [place] [address] Ky Torres MD [address] [address] 05/02/2024 10:30 AM STEEL PLATE PRINTER Lab [address] [place] [address] Ky Torres MD [address] [address] 05/02/2024 11:20 AM STEEL PLATE PRINTER Appointment [facility] Imaging [address] [place] [address] Ky Torres MD [address] [address] 05/06/2024 9:30 AM STEEL PLATE PRINTER Lab [place] [address] [place] [address] Ky Torres MD 420 [facility] 480 [place] [address] 05/06/2024 10:00 AM STEEL PLATE PRINTER Oncology Visit [address] [place] [address] Ky Torres MD [address] [address] 05/06/2024 10:30 AM STEEL PLATE PRINTER Infusion Therapy Visit [address] [place] [address] Ky Torres MD [address] [address] documented as of this encounter Procedures Procedure [...] and Screen (12/11/2023 8:32 AM CDT) Pathologist [facility] ABO/RH(D) A NEG 12/10/2023 7:00 PM CDT BLOOD BANK Antibody Screen Negative Negative 12/10/2023 7:00 PM CDT BLOOD BANK SPECIMEN EXPIRATION DATE [id number] 12/10/2023 7:00 PM CDT BLOOD BANK Blood STRUCTURE OF LEFT UPPER LIMB / Unknown Venipuncture / Unknown 12/11/2023 8:32 AM CDT 12/11/2023 8:32 AM CDT Rizwana Tejeda SEROLOGY TECHNICIAN QUALITY COORDINATOR LAB - BLOO D BANK TEST ORDER BLOOD BANK [address] [place] [address] * Basic metabolic panel (12/11/2023 8:32 AM CDT) Pathologist [facility] Sodium 140 135 - 145 mmol/L 12/11/2023 9:04 AM CDT [facility] - CORE LAB Potassium 4.8 3.4 - 5.3 mmol/L 12/11/2023 9:04 AM CDT [facility] - CORE LAB Chloride 103 98 - 107 mmol/L 12/11/2023 9:04 AM CDT [facility] - CORE LAB Carbon Dioxide (CO2) 28 22 - 29 mmol/L 12/11/2023 9:04 AM CDT [facility] - CORE LAB Anion Gap 9 7 - 15 mmol/L 12/11/2023 9:04 AM CDT [facility] - CORE LAB Urea Nitrogen 14.4 8.0 - 23.0 mg/dL 12/11/2023 9:04 AM CDT [facility] - CORE LAB Creatinine 0.86 0.67 - 1.17 mg/dL 12/11/2023 9:04 AM CDT [facility] - CORE LAB GFR Estimate >90 >60 mL/min/1.7 3m2 12/11/2023 9:04 AM CDT [facility] - [facility]ORE LAB Comment:eGFR calculated usin 2020 CKD-EPI equation. Calcium 9.2 8.8 - 10.2 mg/dL 12/11/2023 9:04 AM T [facility] - CORE LAB Glucose 99 70 - 99 mg/dL 12/11/2023 9:04 AM CDT [facility] - [facility]ORE LAB Blood STRUCTURE OF LEFT UPPER LIMB / Unknown Venipuncture / Unknown 12/11/2023 8:32 AM CDT 12/11/2023 8:32 AM CDT Rizwana Tejeda SEROLOGY TECHNICIAN QUALITY COORDINATOR LAB - BLOO D ORDERABLES [facility] - CORE LAB [facility] Clinics and Surgery [address] 1st [place] [address] * (ABNORMAL) CBC with platelets (12/11/2023 8:32 AM CDT) WBC Count 7.1 4.0 - 11.0 10e3/uL 12/11/2023 8:38 AM CDT [facility] - CORE LAB RBC Count 3.91(L) 4.40 - 5.90 10e6/uL 12/11/2023 8:38 AM CDT [facility] - CORE LAB Hemoglobin 11.4(L) 13.3 - 17.7 g/dL 12/11/2023 8:38 AM CDT [facility] - CORE LAB Hematocrit 34.8(L) 40.0 - 53.0 % 12/11/2023 8:38 AM CDT [facility] - CORE LAB MCV 89 78 - 100 fL 12/11/2023 8:38 AM CDT [facility] - CORE LAB MCH 29.2 26.5 - 33.0 pg 12/11/2023 8:38 AM CDT [facility] - CORE LAB MCHC 32.8 31.5 - 36.5 g/dL 12/11/2023 8:38 AM CDT [facility] - CORE LAB RDW 16.1(H) 10.0 - 15.0 % 12/11/2023 8:38 AM CDT [facility] - CORE LAB Platelet Count 196 150 - 450 10e3/uL 12/11/2023 8:38 AM CDT [facility] - CORE LAB Blood STRUCTURE OF LEFT UPPER LIMB / Unknown Venipuncture / Unknown 12/11/2023 8:32 AM CDT 12/11/2023 8:32 AM CDT Rizwana Tejeda APRN, CNP LAB - BLOO D ORDERABLES [facility] - CORE LAB [facility] Clinics and Surgery [facility] [place] [address] [facility] 1st [place] [address] documented in this encounter Visit Diagnoses Diagnosis Preop examination Preoperative examination, unspecified 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 (H) documented in this encounter Care Teams Metal Bonding Press Operator Relationship Specialty Start Date End Date System, Provider Not In PCP - General Clinic 08/13/23 12/21/23 Alvaro Clark MD [address] [address] Assigned Surgical Provider 07/24/23 Sixto Whalen APRN CNP 909 [place] [address] Assigned Cancer Care Provider 10/22/23 12/21/23 documented as of this encounter
--- OUTSIDE RECORDS SUMMARY | 2024-03-11 12:04 | XMS_ITS | Encounter Summary ---
Author Organization [facility] Address [address] [place] [address] Care Team Providers Care Terrazzo Grinder Name Role Phone Alvaro Clark MD Unavailable System, Provider Not In Primary Care Provider Un available Sixto Whalen APRN STORE PERSON Unavailable [phone] Encounter Details Date Type Department Care Team (Late st Contact Info) Description 12/08/2023 PRE VISIT [facility] Preoperative Assessment Center [address] 5th [place] [address] Rizwana Tejeda APRN STORE PERSON [address]09 [place] [address] Social History Tobacco Use Types [...] st Contact Info) Description 04/08/2024 1:00 PM SALVATIONIST Lab [address] [place] [address] Yessica Mcleod PA-C 909 [place] [address] 04/08/2024 1:30 PM SALVATIONIST Oncology Visit [address] [place] [address] Dylan Guerin PA 9 [place], [place] [address] 04/08/2024 1:30 PM SALVATIONIST Infusion Therapy Visit [place] [address] [place] [address] Ky Torres MD [address] [address] 05/02/2024 10:30 AM SALVATIONIST Lab [address] [place] [address] Ky Torres MD [address] [address] 05/02/2024 11:20 AM SALVATIONIST Appointment [facility] Imaging [address] [place] [address] Ky Torres MD 420 [facility] 480 [place] [address] 05/06/2024 9:30 AM SALVATIONIST Lab [address] [place] [address] Ky Torres MD 420 [facility] [address] [place] [address] 05/06/2024 10:00 AM SALVATIONIST Oncology Visit [address] [place] [address] Ky Torres MD [address] [address] 05/06/2024 10:30 AM SALVATIONIST Infusion Therapy Visit [address] [place] [address] Ky Torres MD [address] [address] documented as of this encounter Visit Diagnoses Not on filedocumented in this encounter Care Teams Terrazzo Grinder Relationship Specialty Start Date End Date System, Provider Not In PCP - General Clinic 08/13/23 12/21/23 Alvaro Clark MD 420 [facility] 394 [place], [place] [address] Assigned Surgical Provider 07/24/23 Sixto Whalen APRN CNP [address] [place] [address] Assigned Cancer Care Provider 10/22/23 12/21/23 documented as of this encounter
[2024-03-11 12:05] LABS: Troponin I* < 0.01 ng/mL (0.01-0.04)
--- OUTSIDE RECORDS SUMMARY | 2024-03-11 12:05 | XMS_ITS | Encounter Summary ---
Author Organization [facility] Address [address] [place] [address] Care Team Providers Care Animal Laboratory Helper Name Role Phone Dalila Arrieta Unavailable [phone] System, Provider Not In Primary Care Provider Un available Alvaro Clark MD Unavailable System, Provider Not In Primary Care Provider Un available Ky Torres MD Unavailable [phone] Sixto Whalen APRN, CNP Unavailable [phone] No Ref-Primary, Physician Primary Care Provider Yessica Mcleod PA-C Unavailable Bhavin Gardner Primary Care Provider [phone] Ky Torres MD Unavailable [phone] Reason for Visit * Reason Onset Date Comments Patient Request 06/15/2023 Encounter Details Date Type Department Care Team (Late st Contact Info) Description 06/15/2023 [facility] [address] [place] [address] Dalila Arrieta PA [address] [place] [address] [place] [address] Patient Request Social History Tobacco [...] Pia Caceres - 06/15/2023 10:22 AM CST [facility] Phone Message May a detailed message be left on voicemail: yes Reason for Call: Other: Pt razia Conway calling regarding pt upcoming appt for retention. Zoraida states pt is requesting a morning appt if possible. Please call Zoraida Action Taken: Message routed to: Other: Uro Travel Screening: Not Applicable [facility] documented in this encounter Plan of Treatment Upcoming Encounters Date Type Department Care Team (Late st Contact Info) Description 04/08/2024 1:00 PM SHOP BLACKSMITH Lab [address] [place] [address] Yessica Mcleod PA-C [address] [place] [place] [address] 04/08/2024 1:30 PM SHOP BLACKSMITH Oncology Visit [place] [address] [place] [address] Dylan Guerin PA [address] [place] [address] 04/08/2024 1:30 PM SHOP BLACKSMITH Infusion Therapy [place] [address] [place] [address] Ky Torres MD [address] [place] [address] 05/02/2024 10:30 AM SHOP BLACKSMITH Lab [place] [address] [place] [address] Ky Torres MD [address] [facility] 480 [place] [address] 05/02/2024 11:20 AM SHOP BLACKSMITH Appointment [facility] [address] [place] [address] Ky Torres MD 420 [facility] 480 [place] [address] 05/06/2024 9:30 AM SHOP BLACKSMITH Lab [address] [place] [address] Ky Torres MD [address] [address] 05/06/2024 10:00 AM SHOP BLACKSMITH Oncology Visit [address] [place] [address] Ky Torres MD [address] [place] [address] [address] 05/06/2024 10:30 AM SHOP BLACKSMITH Infusion Therapy Visit [address] [place] [address] Ky Torres MD [address] [address] documented as of this encounter Visit Diagnoses Not on filedocumented in this encounter Care Teams Animal Laboratory Helper Relationship Specialty Start Date End Date System, Provider Not In PCP - General Clinic 07/20/23 07/20/23 System, Provider Not In PCP - General Clinic 08/13/23 12/21/23 No Ref-Primary, Physician PCP - General 12/22/23 12/27/23 Bhavin Gardner [address] [place] [address] PCP - General Family Medicine 12/28/23 Dalila Arrieta PA [address] [place] [address] [place] [address] Assigned Surgical Provider 07/03/23 Alvaro Clark MD [address] [place] [address] 878865 Assigned Surgical Provider 07/24/23 Ky Torres MD [address] [place] [address] Assigned Cancer Care Provider 09/22/23 10/21/23 Sixto Whalen APRN CNP [address] [place] [place] [address] Assigned Cancer Care Provider 10/22/23 12/21/23 Yessica Mcleod PA-C [address] [place] [place] [address] Assigned Cancer Care Provider 12/22/23 01/21/24 Ky Torres MD [address] [place] [address]305 Assigned Cancer Care Provider 01/22/24 documented as of this encounter
--- OUTSIDE RECORDS SUMMARY | 2024-03-11 12:05 | XMS_ITS ---
Author Organization [facility] Address [address] [place] [address] Care Team Providers Care Architecture Analyst Name Role Phone Alvaro Clark MD Unavailable Bhavin Gardner Primary Care Provider [phone] Ky Torres MD Unavailable [phone] Transitional Care Management Status:Closed (Closed) Start date:12/25/2023 Enrollment date:12/27/2023 End date:01/08/2024 Close reason:Goals met Continued Care and Services Coordination
--- OUTSIDE RECORDS SUMMARY | 2024-03-11 12:05 | XMS_ITS | Encounter Summary ---
Author Organization [facility] Address [address] [place] [address] Care Team Providers Care Security Patrol Officer Name Role Phone Dalila Arrieta Unavailable System, Provider Not In Primary Care Provider Un available Alvaro Clark MD Unavailable System, Provider Not In Primary Care Provider Un available Ky Torres MD Unavailable [phone] Sixto Whalen APRN HERBOLOGIST Unavailable [phone] No Ref-Primary, Physician Primary Care Provider Yessica Mcleod PA-C Unavailable Bhavin Gardner Primary Care Provider [phone] Ky Torres MD Unavailable [phone] Reason for Visit * Reason Onset Date Comments Appointment 06/08/2023 Patient needs an appointment for retention and hematuria - please call. Encounter Details Date Type Department Care Team (Late st Contact Info) Description 06/08/2023 Telephone [facility] [address] 4th [place] [address] None Appointment (Patient needs an [...] ROSALIE 8:11 AM Action Taken Records from [facility] received. Sent to urgent scanning to be uploaded. NG MACHINES SALESPERSON * Telephone Encounter - Jacque Chan, CARLOS - 06/09/2023 3:14 PM CST Spoke with Zoraida, Patient's niece. He was seen for retention at [facility]. They had referred him to be seen by [facility] but they declined due to being too far away. They would like to be seen at [facility]Patient scheduled for next available with Carolina Arrieta. Zoraida has a disc with imaging and ED notes. Encounter sent to Kandi Romo to try and bring in anyrecords from [facility]. Jacque Chan RN on 06/09/2023 at 3:20 PM NG MACHINES SALESPERSON * Telephone Encounter - Rosalinda Hendricks - 06/08/2023 4:27 PM CST [facility] Phone Message May a detailed [...] routed to: [facility] ([facility] URO Travel Screening: Not Applicable NG MACHINES SALESPERSON documented in this encounter Plan of Treatment Upcoming Encounters Date Type Department Care Team (Late st Contact Info) Description 04/08/2024 1:00 PM SEWING MACHINES SALESPERSON Lab [facility] [id number] [place] [address] [place] [phone] Yessica Mcleod PA-C 909 [place], [place] 414[address] 04/08/2024 1:30 PM SEWING MACHINES SALESPERSON Oncology Visit [address] [place] [address] Dylan Guerin PA 909 [place] [address] 04/08/2024 1:30 PM SEWING MACHINES SALESPERSON Infusion Therapy Visit [address] 200 [place] [address] Ky Torres MD 420 [facility] 480 [place], [place] [address] 05/02/2024 10:30 AM SEWING MACHINES SALESPERSON Lab [address] [place] [address] Ky Torres MD 420 [facility] 480 [place] [address] 05/02/2024 11:20 AM SEWING MACHINES SALESPERSON Appointment [facility] Imaging [address] [place] [address] Ky Torres MD 420 [facility] 480 [place], [place] [address] 05/06/2024 9:30 AM SEWING MACHINES SALESPERSON Lab [address] [place] [address] Ky Torres MD 420 [facility] 480 [place] [address] 05/06/2024 10:00 AM SEWING MACHINES SALESPERSON Oncology Visit [facility] [address] [facility] [place] [phone] Ky Torres MD 420 [facility] 480 [place] [address] 05/06/2024 10:30 AM SEWING MACHINES SALESPERSON Infusion Therapy Visit [facility] [id number] [place] [address] [address] 200 [place] [address] Ky Torres MD [address] [address] documented as of this encounter Visit Diagnoses Not on filedocumented in this encounter Care Teams Security Patrol Officer Relationship Specialty Start Date End Date System, Provider Not In PCP - General Clinic 07/20/23 07/20/23 System, Provider Not In PCP - General Clinic 08/13/23 12/21/23 No Ref-Primary, Physician PCP - General 12/22/23 12/27/23 Bhavin Gardner [address] [place] [address] PCP - General Family Medicine 12/28/23 Dalila Arrieta PA 909 [facility] Urology [place], [place] 3[address] Assigned Surgical Provider 07/03/23 Alvaro Clark MD 420 [facility] [address] [place] [address] Assigned Surgical Provider 07/24/23 Ky Torres MD [address] [place] [address] Assigned Cancer Care Provider 09/22/23 10/21/23 Sixto Whalen APRN CNP [address] [place] [address] [id number] Assigned Cancer Care Provider 10/22/23 12/21/23 Yessica Mcleod PA-C [address] [place] [address] Assigned Cancer Care Provider 12/22/23 01/21/24 Ky Torres MD [address] [place] [address] Assigned Cancer Care Provider 01/22/24 documented as of this encounter
--- OUTSIDE RECORDS SUMMARY | 2024-03-11 12:05 | XMS_ITS | Encounter Summary ---
Author Organization [facility] Address [address] [place] [address]. [place] [address] Care Team Providers Care Enzyme Chemist Name Role Phone Alvaro Clark MD Unavailable System, Provider Not In Primary Care Provider Un available Ky Torres MD Unavailable [phone] Sixto Whalen APRN SHOP COORDINATOR Unavailable [phone] No Ref-Primary, Physician Primary Care Provider Yessica Mcleod PA-C Unavailable Bhavin Gardner Primary Care Provider [phone] Ky Torres MD Unavailable [phone] Encounter Details Date Type Department Care Team (Late st Contact Info) Description 09/02/2023 MyC Medical Advice [facility] [place] [address]añ[address] S, DAISY [address] [place] [address] Ky Torres MD 420 [facility] 480 [place] [address] Social History Tobacco Use Types [...] st Contact Info) Description 04/08/2024 1:00 PM HOT MIX OPERATOR Lab [address] [place] [address] Yessica Mcleod PA-C 909 [place] [address] 04/08/2024 1:30 PM HOT MIX OPERATOR Oncology Visit [address] 200 [place] [phone] Dylan Guerin PA 909 [place], [place] 61[address] 04/08/2024 1:30 PM HOT MIX OPERATOR Infusion Therapy Visit [address] 200 [place] [address] Ky Torres MD [address] [address] 05/02/2024 10:30 AM HOT MIX OPERATOR Lab [address] [place] [address] Ky Torres MD [address] [address] 05/02/2024 11:20 AM HOT MIX OPERATOR Appointment [facility] Imaging [address] [place] [address] Ky Torres MD 420 [facility] 480 [place] [address] 05/06/2024 9:30 AM HOT MIX OPERATOR Lab [address] [place] [address] Ky Torres MD 420 [facility] [address] [place] [address] 05/06/2024 10:00 AM HOT MIX OPERATOR Oncology Visit [address] 200 [place] [address] Ky Torres MD 420 [facility] 480 [place] [address] 05/06/2024 10:30 AM HOT MIX OPERATOR Infusion Therapy Visit [address] 200 [place] [address] Ky Torres MD 420 [facility] [address] [place] [address] documented as of this encounter Visit Diagnoses Not on filedocumented in this encounter Care Teams Enzyme Chemist Relationship Specialty Start Date End Date System, Provider Not In PCP - General Clinic 08/13/23 12/21/23 No Ref-Primary, Physician PCP - General 12/22/23 12/27/23 [address]hav[address] [place] [address] PCP - General Family Medicine 12/28/23 Alvaro Clark MD 420 [facility] 394 [place] [address] Assigned Surgical Provider 07/24/23 Ky Torres MD [address] [place] [address] 189885 Assigned Cancer Care Provider 09/22/23 10/21/23 Sixto Whalen APRN CNP [address] [place] [address] 930355 Assigned Cancer Care Provider 10/22/23 12/21/23 Yessica Mcleod PA-C [address] [place] [address] [id number] Assigned Cancer Care Provider 12/22/23 01/21/24 Ky Torres MD [address] [place] [address] Assigned Cancer Care Provider 01/22/24 documented as of this encounter
--- OUTSIDE RECORDS SUMMARY | 2024-03-11 12:05 | XMS_ITS | Encounter Summary ---
Author Organization [facility] Address [address] [place] [address] Care Team Providers Care Form Setter/Driver Name Role Phone Alvaro Clark MD Unavailable System, Provider Not In Primary Care Provider Un available Ky Torres MD Unavailable [phone] Sixto Whalen APRN VIDEO INTERN Unavailable [phone] No Ref-Primary, Physician Primary Care Provider Yessica Mcleod PA-C Unavailable Bhavin Gardner Primary Care Provider [phone] Ky Torres MD Unavailable [phone] Encounter Details Date Type Department Care Team (Late st Contact Info) Description 07/24/2023 [facility] Medical Advice [facility] [address] 4th [place] [address] Diamond [place], RN Social History [...] st Contact Info) Description 04/08/2024 1:00 PM CLERK MANAGER Lab [address] [place] [phone] Yessica Mcleod PA-C 909 [place] [address] 04/08/2024 1:30 PM CLERK MANAGER Oncology Visit [address] [place] [address] Dylan Guerin PA 909 [place], [place] [address] 04/08/2024 1:30 PM CLERK MANAGER Infusion Therapy Visit [address] [place] [address] Ky Torres MD [address] [address] 05/02/2024 10:30 AM CLERK MANAGER Lab [address] [place] [address] Ky Torres MD [address] [address] 05/02/2024 11:20 AM CLERK MANAGER Appointment [facility] Imaging [address] [place] [address] Ky Torres MD 420 [facility] 480 [place] [address] 05/06/2024 9:30 AM CLERK MANAGER Lab [facility] [place] [address] Ky Torres MD [address] [address] 05/06/2024 10:00 AM CLERK MANAGER Oncology Visit [address] [place] [address] Ky Torres MD [address] 756835 05/06/2024 10:30 AM CLERK MANAGER Infusion Therapy Visit [address] 200 [place] [address] Ky Torres MD [address] [place] [address] 025375 documented as of this encounter Visit Diagnoses Not on filedocumented in this encounter Care Teams Form Setter/Driver Relationship Specialty Start Date End Date System, Provider Not In PCP - General Clinic 08/13/23 12/21/23 No Ref-Primary, Physician PCP - General 12/22/23 12/27/23 Bhavin Gardner [facility] [place] [address] PCP - General Family Medicine 12/28/23 Alvaro Clark MD [address] [place] [address] 225715 Assigned Surgical Provider 07/24/23 Ky Torres MD [address] [place] [address] 076475 Assigned Cancer Care Provider 09/22/23 10/21/23 Sixto Whalen APRN CNP [address] [place] [address] 212675 Assigned Cancer Care Provider 10/22/23 12/21/23 Yessica Mcleod PA-C [address] [place] [address] 535015 Assigned Cancer Care Provider 12/22/23 01/21/24 Ky Torres MD [address] [place] [address] 456155 Assigned Cancer Care Provider 01/22/24 documented as of this encounter
--- OUTSIDE RECORDS SUMMARY | 2024-03-11 12:05 | XMS_ITS | Encounter Summary ---
Author Organization [facility] Address [address] [place] [address]. [place] [address] Care Team Providers Care Technical Maintenance Technician Name Role Phone Alvaro Clark MD Unavailable System, Provider Not In Primary Care Provider Un available Ky Torres MD Unavailable [phone] Sixto Whalen APRN COMMUNITY PLANNER Unavailable [phone] No Ref-Primary, Physician Primary Care Provider Yessica Mcleod PA-C Unavailable Bhavin Gardner Primary Care Provider [phone] Ky Torres MD Unavailable [phone] Encounter Details Date Type Department Care Team (Late st Contact Info) Description 09/26/2023 MyC Medical Advice [facility] [place] [address] Castañeda S, DAISY [address] [place] [address] Ky Torres MD 420 [facility] 480 [place] [address] Social History Tobacco Use Types [...] st Contact Info) Description 04/08/2024 1:00 PM MILL LABORER Lab [address] [place] [address] Yessica Mcleod PA-C 909 [place] [address] 04/08/2024 1:30 PM MILL LABORER Oncology Visit [address] [place] [address] Dylan Guerin PA 909 [place], [place] 2533[address] 04/08/2024 1:30 PM MILL LABORER Infusion Therapy Visit [address] [place] [address] Ky Torres MD [address] [address] 05/02/2024 10:30 AM MILL LABORER Lab [address] [place] [address] Ky Torres MD [address] 319425 05/02/2024 11:20 AM MILL LABORER Appointment [facility] Imaging [address] [place] [address] [place] [address] Ky Torres MD 420 [facility] 480 [place] [address] 05/06/2024 9:30 AM MILL LABORER Lab [address] [place] [address] Ky Torres MD 420 [facility] 480 [place] [address] 05/06/2024 10:00 AM MILL LABORER Oncology Visit [address] [place] [address] Ky Torres MD 420 [facility] 480 [place] [address] 05/06/2024 10:30 AM MILL LABORER Infusion Therapy Visit [address] [place] [address] Ky Torres MD 420 [facility] 480 [place] [address] documented as of this encounter Visit Diagnoses Not on filedocumented in this encounter Care Teams Technical Maintenance Technician Relationship Specialty Start Date End Date System, Provider Not In PCP - General Clinic 08/13/23 12/21/23 No Ref-Primary, Physician PCP - General 12/22/23 12/27/23 [address] [place] [place] [address] PCP - General Family Medicine 12/28/23 Alvaro Clark MD 420 [facility] 394 [place] [address] Assigned Surgical Provider 07/24/23 Ky Torres MD [address] [place] [address] 977655 Assigned Cancer Care Provider 09/22/23 10/21/23 Sixto Whalen APRN CNP [address] [place] [address] 649015 Assigned Cancer Care Provider 10/22/23 12/21/23 Yessica Mcleod PA-C [address] [place] [address] [phone] Assigned Cancer Care Provider 12/22/23 01/21/24 Ky Torres MD [address] [place] [address] Assigned Cancer Care Provider 01/22/24 documented as of this encounter
--- OUTSIDE RECORDS SUMMARY | 2024-03-11 12:05 | XMS_ITS | Encounter Summary ---
Author Organization [facility] Address [address] [place] [address] Care Team Providers Care Bench Molder Apprentice Name Role Phone Dalila Arrieta Unavailable [phone] System, Provider Not In Primary Care Provider Un available Alvaro Clark MD Unavailable System, Provider Not In Primary Care Provider Un available Ky Torres MD Unavailable [phone] Sixto Whalen APRN UNIT MANAGER CON[employer]ORES Unavailable [phone] No Ref-Primary, Physician Primary Care Provider Yessica Mcleod PA-C Unavailable Bhavin Gardner Primary Care Provider [phone] Ky Torres MD Unavailable [phone] Encounter Details Date Type Department Care Team (Late st Contact Info) Description 07/17/2023 [facility] [address] 5th [place] [address] Lisa Guevara, RN Social History [...] st Contact Info) Description 04/08/2024 1:00 PM PUBLIC BATH ATTENDANT Lab [address] [place] [address] Yessica Mcleod PA-C 909 [place] [address] 04/08/2024 1:30 PM PUBLIC BATH ATTENDANT Oncology Visit [address] [place] [address] Dylan Guerin PA 909 [place] [address] 04/08/2024 1:30 PM PUBLIC BATH ATTENDANT Infusion Therapy Visit [address] [place] [address] Ky Torres MD [address] 455535 05/02/2024 10:30 AM PUBLIC BATH ATTENDANT Lab [address] [place] [address] Ky Torres MD [address] 314935 05/02/2024 11:20 AM PUBLIC BATH ATTENDANT Appointment [facility] Imaging [address] [address] [place] [address] Ky Torres MD 420 [facility] 480 [place], [place] 9[address] 05/06/2024 9:30 AM PUBLIC BATH ATTENDANT Lab [address] [place] [address] Ky Torres MD [address] [address] 05/06/2024 10:00 AM PUBLIC BATH ATTENDANT Oncology Visit [address] [place] [address] Ky Torres MD [address] [address] 05/06/2024 10:30 AM PUBLIC BATH ATTENDANT Infusion Therapy Visit [address] [place] [address] Ky Torres MD [address] [address] documented as of this encounter Visit Diagnoses Not on filedocumented in this encounter Care Teams Bench Molder Apprentice Relationship Specialty Start Date End Date System, Provider Not In PCP - General Clinic 07/20/23 07/20/23 System, Provider Not In PCP - General Clinic 08/13/23 12/21/23 No Ref-Primary, Physician PCP - General 12/22/23 12/27/23 Bhavin Gardner [address] [place] [address] PCP - General Family Medicine 12/28/23 Dalila Arrieta PA [address] [place] [address] Urology [place], [place] 082545 Assigned Surgical Provider 07/03/23 Alvaro Clark MD [address] [place] [address] 694165 Assigned Surgical Provider 07/24/23 Ky Torres MD [address] [place] [address] 082535 Assigned Cancer Care Provider 09/22/23 10/21/23 Sixto Whalen APRN CNP [address] [place] [address] [id number] Assigned Cancer Care Provider 10/22/23 12/21/23 Yessica Mcleod PA-C [address] [place] [address] 528965 Assigned Cancer Care Provider 12/22/23 01/21/24 Ky Torres MD [address] [place] [address] [phone] Assigned Cancer Care Provider 01/22/24 documented as of this encounter
[2024-03-11] MEDS: lidocaine HCL 2 % JELLY (TOP) STERILE 6 ML UR (13:46)
[2024-03-11 13:47] LABS: Appearance Urine Cloudy (Clear); Bilirubin Urine Negative (Negative); Blood Urine 2+ (Negative); Color Urine Yellow (Yellow); Glucose Urine Negative (Negative); Ketones Urine Negative (Negative); Leukocyte Esterase Urine 3+ (Negative); Nitrite Urine Positive (Negative); Protein Urine 1+ (Negative); Specific Gravity Urine 1.015 (1.000-1.030); Urobilinogen Urine 0.2 (0.2-1.0); pH Urine 7.5 (5.0-8.5)
[2024-03-11 13:58] LABS: Bacteria Urine Many; Mucus Urine Few; RBC Urine 25-50 (0-2); WBC Urine >100 (0-5)
--- NOTE | 2024-03-14 10:01 | ED.NURSE ---
[facility] called and did not have medication, they transferred prescription to [facility]. they left a message for pt but he did not answer. 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
== END 2024-03-11 14:46 | disposition home or self-care (01) ==
PROVIDERS: Emergency Provider Family Medicine; PCP Family Medicine
DX: R33.9 Retention of urine, unspecified (principal)
CPT/HCPCS: 51702; 36415; 51798; 74177; 80048; 80076; 81001; 82565; 83605; 83690; 84484; 85025; 86140; 87077; 87086; 87186; 93005; 94761; 99284; 99285; Q9967

== ENCOUNTER 2024-03-12 14:59 | Emergency (ER) | payer MEDICARE, OTHER, SELFPAY ==
[2024-03-12 15:01] VITALS: BP 107/74; PULSE 105; RESP 16; TEMP 36.8; O2SAT 95; BMI 25.8
--- NOTE | 2024-03-12 15:11 | ED_ITS ---
HPI - Male Genitourinary General Time Seen by Provider: 15:12 Date Seen: 03/12/24 Chief complaint: Urogenital Problems, Male Stated complaint: urine bag not draining Time Seen by Provider: 03/12/24 15:11 Source: patient and RN notes reviewed Mode of arrival: ambulatory Limitations: no limitations History of Present Illness HPI Narrative: This 64-year-old male is coming into the ER with concern of his Isaac catheter not draining since this morning. He was here yesterday with acute urinary retention and had 1400 mL out after placement of a Isaac catheter. He was started on Cipro at recommendation of his urologist, he states he has started this. He has had no fevers. He awoke this morning and noted that he was soaked with urine. To he also had 1500 mL of urine in the bag. He did shower. After 8:00 a.m., he noted there really was no further urine being produced in the bag. He is starting to feel a little distension in the suprapubic area but certainly not as bad as yesterday. He originally had surgery for bladder cancer earlier this summer. He talked to his urology service at [facility] and they recommended he come back. He has not tried irrigating the catheter. Related Data Previous Rx's ?Medication ?Instructions ?Recorded ciprofloxacin HCl 500 mg tablet 500 mg PO BID 7 days #14 tabs 03/11/24 Allergies Allergy/AdvReac Type Severity Reaction Status Date / Time Penicillins Allergy Intermediate Verified 03/12/24 15:07 Review of Systems Narrative: As per HPI. 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 Ex-smoker quit in 2012 60 pack year Does not drink alcohol, 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, remote use of cocaine and marijuana no IV drug use ever 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 Smoking Status: Former smoker Do you use any of these nicotine containing products: None How often do you have a drink containing alcohol: never AUDIT-C Alcohol total score: 0 Non-prescribed substance use: denies use Exam Const: Vital Signs, click to edit/add: Vital Signs - 24 hr 03/12/24 15:01 Temperature 98.2 F Pulse Rate [Pulse Oximeter] 105 H Respiratory Rate 16 Blood Pressure [Ri ght Upper Arm] 107/74 Pulse Oximetry 95 Oxygen Delivery Me thod Room Air Oleg is a 64-year-old male that is alert, interactive, no apparent distress. He is ambulatory into the ED of his own accord. Has a Isaac catheter in place. Penis and meatus where the catheter is going in are normal, see no urine draining or any blood, no discharge. He has some mild suprapubic discomfort on palpation. Nursing staff did do bladder scan when I was in and he is somewhere between 350-400ml. Documenting provider has reviewed patient's vital signs: yes Course Course ED Course: Will have nursing staff irrigate to see if this will open up the catheter. If that does not work, we will have to replace his Isaac catheter. Reevaluation(s) Time of Reevaluation #1: 15:33 Reevaluation #1: Irrigation has been successful, patient is draining clear urine, feels better. He does report that he has materials at home to do irrigation if need be. Vital Signs Vital signs: Initial Vital Signs Temperature 98.2 F 03/12/24 15:01 Temperature Source Temporal Artery Scan 03/12/24 15:01 Pulse Rate 105 H 03/12/24 15:01 Respiratory Rate 16 03/12/24 15:01 Blood Pressure 107/74 03/12/24 15:01 Blood Pressure Mean 85 03/12/24 15:01 Blood Pressure Position Sitting 03/12/24 15:01 Pulse Oximetry 95 03/12/24 15:01 Oxygen Delivery Method Room Air 03/12/24 15:01 Vital Signs Temperature 98.2 F 03/12/24 15:01 Pulse Rate 105 H 03/12/24 15:01 Respiratory Rate 16 03/12/24 15:01 Blood Pressure 107/74 03/12/24 15:01 Pulse Oximetry 95 03/12/24 15:01 Oxygen Delivery Method Room Air 03/12/24 15:01 Temperature 98.2 F 03/12/24 15:01 Pulse Rate 105 H 03/12/24 15:01 Respiratory Rate 16 03/12/24 15:01 Blood Pressure 107/74 03/12/24 15:01 Pulse Oximetry 95 03/12/24 15:01 Oxygen Delivery Method Room Air 03/12/24 15:01 Discharge Plan Discharge Clinical Impression: Obstruction of Isaac catheter Qualifiers: Encounter type: initial encounter Qualified Code(s): T83.091A - Other mechanical complication of indwelling urethral catheter, initial encounter Patient Disposition: Home, Self-Care Condition: Stable Instructions: Isaac Catheter Placement and Care (ED) Additional Instructions: Can try irrigating if you notice lack of drainage again. If unsuccessful, will need to be re-evaluated. Continue with urology outpatient follow-up as planned P Prescriptions: No Action ciprofloxacin HCl 500 mg tablet 500 mg PO BID 7 Days Qty: 14 0RF Follow Up/Referrals: Rosa Maria Alatorre MD [Primary Care Provider] - Stand Alone Forms: Shogether Info Instructions
--- OUTSIDE RECORDS SUMMARY | 2024-03-12 15:38 | XMS_ITS | Referral Summary ---
Author Organization [facility] Address [address] [place] [address] Care Team Providers Care Outside Sales Representative Name Role Phone Alvaro Clark MD Unavailable Bhavin Gardner Primary Care Provider [phone] Ky Torres MD Unavailable [phone] Encounters Date Type Department Care Team Description 03/11/[address] [facility] [address] 4th [place] [address] Josh Clemens MD 02/11/2024 11:00 AM CDT Infusion Therapy Visit [address] [place] [phone] Ky Torres MD Malignant neoplasm of anterior wall of urinary bladder (H) (Primary Dx); Iron deficiency anemia due to chronic blood loss 02/10/2024 10:15 AM CDT Lab [place] [address] [place] [phone] Dylan Guerin PA Malignant neoplasm of anterior wall of urinary bladder (H) (Primary Dx) 02/10/2024 Orders Only [place] [address] [place] [phone] Charlie Almonte RN Prostate cancer (H) (Primary Dx); Hypothyroidism due to medication 02/10/2024 Travel 02/10/2024 10:00 AM CDT Oncology Visit [address] [facility] [place] [address] Dylan Guerin PA 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 [address] [address] Alvaro Clark MD Call Back 02/05/[address] [facility] [place] [address] Ky Torres MD Symptoms 02/04/2024 Orders Only PHARMACY [address] [place] [phone] Sigrid Tadeo [facility] 01/25/[address] [facility] [address] [address] Alvaro Clark MD 01/22/2024 Telephone [place] [address] [facility] [place] [address] Alvaro Clark MD Symptoms 01/18/2024 Telephone [place] [address] [facility] [place] [address] Alvaro Clark MD Patient/info Update 01/15/2024 [place] [address] [facility] [place] [address] Alvaro Clark MD Symptoms 01/15/2024 12:40 PM CDT Lab [facility] [address] [place] [phone] Urothelial cancer (H) 01/15/2024 Travel 01/15/2024 Orders Only [address] [facility] [place] [phone] Charlie Almonte RN Urothelial cancer (H) (Primary Dx); 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) 01/15/2024 11:30 AM CDT Oncology Visit [address] [facility] [place] [phone] Ky Torres MD Urothelial cancer (H) (Primary Dx); Prostate cancer (H); Malignant neoplasm of anterior wall of urinary bladder (H) 01/15/2024 10:30 AM CDT Office Visit [address] [facility] [place] [phone] Alvaro Clark MD Urothelial cancer (H) (Primary Dx); Urinary retention 01/13/2024 Travel 01/13/2024 1:02 PM CDT - 01/13/2024 11:59 PM CDT Hospital Encounter [facility] [address] [place] [address] Yessica Mcleod PA-C Urothelial cancer (H); 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 [address] 4th [place] [address] Guillaume Brenner MD 01/01/2024 Travel 01/01/2024 9:45 AM CDT Office Visit [address] [facility] [place] [address] Alvaro Clark MD Urothelial cancer (H) (Primary Dx) 12/30/2023 10:12 PM CDT - 12/31/2023 1:28 AM CDT Emergency [facility] [address] [place] [address] Kandi Morales MD Problem with Isaac catheter, initial encounter (H) Discharge Disposition: Home or Self Care 12/30/2023 Travel 12/27/2023 4:52 AM CDT - 12/29/2023 1:34 PM CDT Hospital Encounter [facility] [address] [place] [address] Fernando Romero MD Discharge Disposition: Home or Self Care 12/26/2023 MyC Medical Advice [address] [facility] [place] [address] Alvaro Clark MD Urothelial cancer (H) (Primary Dx) 12/22/2023 5:50 AM CDT - 12/25/2023 3:50 PM CDT Hospital Encounter [facility] Unit [address] [place] [address] [place] [address] Alvaro Clark MD Postoperative state (Primary Dx); Bladder cancer (H); Urothelial cancer (H); Lesion of bladder; Post-op pain Discharge Disposition: Home or Self Care 12/22/2023 8:00 AM CDT - 12/22/2023 1:00 PM CDT Surgery [facility] [address] [place] [address] Alvaro Clark MD CYSTECTOMY, pelvic node dissection WITH ILEAL NEOBLADDER CREATION 12/22/2023 7:48 AM CDT Anesthesia Event [facility] [address] [place] [address] Alf Olson MD Johnson, Ashley Keryn, APRN CNP 12/11/2023 Travel 12/11/2023 9:[address] [facility] [address] 1st [place] [address] Preop examination; 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 (H) 12/11/[address] [facility] [address] 5th [place] [address] Rizwana Tejeda APRN CNP 12/11/2023 8:00 AM CDT Office Visit [facility] [address] 5th [place] [address] Rizwana Tejeda APRN CNP Preop examination (Primary [...] st Contact Info) Description 04/08/2024 1:00 PM MERCHANDISING PROFESSOR Lab [address] [place] [phone] Yessica Mcelod PA-C [address] [place] [address] 04/08/2024 1:30 PM MERCHANDISING PROFESSOR Oncology Visit [address] [place] [phone] Dylan Guerin PA [address] [place], [place] [phone] 04/08/2024 1:30 PM MERCHANDISING PROFESSOR Infusion Therapy Visit [address] [place] [phone] Ky Torres MD [address] [address] 05/02/2024 10:30 AM MERCHANDISING PROFESSOR Lab [address] [place] [address] Ky Torres MD [address] [address] 05/02/2024 11:20 AM MERCHANDISING PROFESSOR Appointment [facility] Imaging [address] [place] [phone] Ky Torres MD 420 [facility] [address] [place] [address] 05/06/2024 9:30 AM MERCHANDISING PROFESSOR Lab [facility] [place] [address] Ky Torres MD [address] [address] 05/06/2024 10:00 AM MERCHANDISING PROFESSOR Oncology Visit [address] [place] [address] Ky Torres MD [address] [address] 05/06/2024 10:30 AM MERCHANDISING PROFESSOR Infusion Therapy Visit [address] [place] [address] Ky Torres MD [address] [address] Medical Devices Implanted Type Area Complaint Evaluation Supervisor Device Identifier Shelf Expiration Date Model / Serial / Lot Port-08/28/2023 Implanted:Qty: 1 on 08/28/2023 by Pipe Hernandez MD Port Right: Chest Wall [id number] 07/29/2026 / / [id number] Stent Ureteral Outside Sales Manager [employer] 07fr [id number] - [id number] Implanted:Qty: 1 on 12/22/2023 by Alvaro Clark MD at [facility] Stent N/A: Abdomen [employer] [id number] 11/19/2026 [id number] / / [id number] Procedures Procedure Name Priority Date/Time Associated Diagnosis [...] LAB - BLOOD ORDERA BLES RH LABORATORY [facility] Acute Care Lab [address] Lab (1st floor, no room number) [place] [address], [facility] * Lactate Dehydrogenase (02/10/2024 10:23 AM CDT) Lactate Dehydrogenase 163 0 - 250 U/L 02/10/2024 10:59 AM CDT RH LABORATORY Blood (Portacath) IVAD (Port) / Unknown 02/10/2024 10:23 AM CDT 02/10/2024 10:35 AM CDT Ky Torres MD LAB - BLOOD ORDERA BLES [facility] Acute Care Lab [address] Lab (1st floor, no room number) [place] [address] * TSH with free T4 reflex (02/10/2024 10:23 AM CDT) Pathologist [facility] TSH 2.32 0.30 - 4.20 uIU/mL 02/10/2024 11:05 AM CDT LABORATORY Blood (Portacath) IVAD (Port) / Unknown 02/10/2024 10:23 AM CDT 02/10/2024 10:35 AM CDT Ky Torres MD LAB - BLOOD ORDERA BLES Performing Organization Address City/[facility]/ZIP Co de Phone Number [facility] Acute Care Lab [address] Lab (1st floor, no room number) [place] [address] * (ABNORMAL) Testosterone total (02/10/2024 10:23 AM CDT) Pathologist [facility] Testosterone Total 69(L) 240 - 950 ng/dL 02/14/2024 7:01 AM CDT [facility] Blood (Portacath) IVAD (Port) / Unknown 02/10/2024 10:23 AM CDT 02/10/2024 10:35 AM CDT Ky Torres MD LAB - BLOOD ORDERA BLES [facility] [address], Room [address]580 [place] [address], [facility] * PSA tumor marker (02/10/2024 10:23 AM CDT) Pathologist [facility] PSA Tumor Marker 0.02 0.00 - 4.50 [...] LAB - BLOOD ORDERA BLES UU LABORATORY [facility] [place] Core Lab [address] [facility], Room 3-580 [place] [address], [facility] * (ABNORMAL) Iron & Iron Binding Capacity [...] Dylan IBARRA LAB - BLOOD ORDERA BLES RH LABORATORY [facility] Acute Care Lab [address] Lab (1st floor, no room number) [place] [address] * Ferritin (02/10/2024 10:23 AM CDT) Ferritin 186 31 - 409 ng/mL 02/10/2024 3:05 PM CDT UU LABORATORY Blood (Portacath) IVAD (Port) / Unknown 02/10/2024 10:23 AM CDT 02/10/2024 10:35 AM CDT Dylan IBARRA LAB - BLOOD ORDERA BLES [facility] LABORATORY [facility] [place] Core Lab [address] [facility], [address] [address] * (ABNORMAL) Comprehensive metabolic panel (02/10/2024 10:23 [...] LAB - BLOOD ORDERA BLES RH LABORATORY [facility] Acute Care Lab [address] Lab (1st floor, no room number) [place] [address] * Vitamin B12 (02/10/2024 10:23 AM CDT) Vitamin B12 649 232 - 1,245 pg/mL 02/10/2024 3:01 PM CDT UU LABORATORY Blood (Portacath) IVAD (Port) / Unknown 02/10/2024 10:23 AM CDT 02/10/2024 10:35 AM CDT Dylan IBARRA LAB - BLOOD ORDERA BLES UU LABORATORY [facility] [place] Core Lab [address] [facility], Room 3[address]580 [place] [address], [facility] * (ABNORMAL) Urine Culture (01/15/2024 1:11 PM [...] - MICRO GENERAL ORDERABLES UU IDD LABORATORY [facility] Inf. Diseases Diag. Lab 500 [facility], Room [address] [place] [phone] * CT Chest/Abdomen/Pelvis w Contrast (01/13/2024 1:26 [...] LAB - BLOOD ORDERABL ES UR LABORATORY [facility] Acute Care Lab [address] [facility], [address] [address] * (ABNORMAL) CBC with platelets (12/29/2023 7:28 [...] LAB - BLOOD ORDERABL ES UR LABORATORY [facility] Acute Care Lab [address] [facility], Room [address] [address] * Phosphorus (12/28/2023 11:53 AM CDT) Only the most recent of2 resultswithin the time period is included. Phosphorus 2.8 2.5 - 4.5 mg/dL 12/28/2023 1:37 PM CDT UR LABORATORY Blood STRUCTURE OF RIGHT UPPER LIMB / Unknown Venipuncture / Unknown 12/28/2023 11:53 AM CDT 12/28/2023 12:53 PM CDT Krystian Manriquez MD LAB - BLOOD ORDERABL ES UR LABORATORY [facility] Acute Care Lab [address] [facility], [address] [address] * Magnesium (12/28/2023 11:53 AM CDT) Only the most recent of2 resultswithin the time period is included. Magnesium 2.0 1.7 - 2.3 mg/dL 12/28/2023 1:37 PM CDT UR LABORATORY Blood STRUCTURE OF RIGHT UPPER LIMB / Unknown Venipuncture / Unknown 12/28/2023 11:53 AM CDT 12/28/2023 12:53 PM CDT Krystian Manriquez MD LAB - BLOOD ORDERABL ES UR LABORATORY [facility] Acute Care Lab [facility], Room [address] [address] * Electrolyte panel (12/27/2023 7:37 AM CDT) [...] LAB - BLOOD ORDERABL ES UR LABORATORY [facility] Acute Care Lab [address] [facility], [address] [place] [address] * Potassium (External Result) (12/26/2023 11:00 PM CDT) Potassium (External) 4.1 3.6 - 5.1 mmol/L [facility] Blood 12/26/2023 11:0 0 PM CDT [facility] - 12/26/2023 11:[address] [facility] ED NOTES Provider Outside LAB - HIM EXTERNAL R ESULT Performing Organization Address City/[facility]/ZIP Co de Phone Number [facility] [address] [place], [place] [phone] [place] [address] * Glucose (External Result) (12/26/2023 11:00 PM CDT) Glucose (External) 112 60 - 115 mg/dL [facility] Blood 12/26/2023 11:0 0 PM CDT [facility] - 12/26/2023 11:[address] [facility] ED NOTES Provider Outside LAB - HIM EXTERNAL R ESULT Performing Organization Address City/[facility]/ZIP Co de Phone Number [facility] [address] [place] [address], [facility] [phone] * Creatinine (External Result) (12/26/2023 11:00 PM CDT) Creatinine (External) 0.9 0.5 - 1.5 mg/dL [facility] GFR Estimated (External) 95 mL/min [facility] Blood 12/26/2023 11:0 0 PM CDT [facility] - 12/26/2023 11:[address] [facility] ED NOTES Provider Outside LAB - HIM EXTERNAL R ESULT Performing Organization Address City/[facility]/ZIP Co de Phone Number [facility] [address] [place], [place] [address] [phone] * AST (External Result) (12/26/2023 11:00 PM CDT) AST (External) 34 12 - 35 U/L [facility] Blood 12/26/2023 11:0 0 PM CDT [facility] - 12/26/2023 11:[address] [facility] ED NOTES Provider Outside LAB - [facility] EXTERNAL R ESULT Performing Organization Address City/[facility]/ZIP Co de Phone Number [facility] [address] [place], [place] [address] [phone] * ALT (External Result) (12/26/2023 11:00 PM CDT) ALT (External) 23 4 - 50 U/L [facility] Blood 12/26/2023 11:0 0 PM CDT [facility] - 12/26/2023 11:[address] [facility] ED NOTES Provider Outside LAB - HIM EXTERNAL R ESULT Performing Organization Address City/[facility]/ZIP Co de Phone Number [facility] [address] [place] [address], [facility] [phone] * Creatinine fluid (12/25/2023 10:28 AM CDT) [...] BODY FLUIDS OR DERABLES Performing Organization Address City/[facility]/ZIP Co de Phone Number UU LABORATORY [facility] [place] Core Lab [address] [facility], Room 3[address] * (ABNORMAL) Glucose by meter (12/23/2023 6:42 AM CDT) Only the most recent of2 resultswithin the time period is included. GLUCOSE BY METER POCT 118(H) 70 - 99 mg/dL 12/23/2023 6:49 AM CDT [facility] LABORATORY POC Blood, Capillary BLOOD SPECIMEN / Unknown 12/23/2023 6:42 AM CDT 12/23/2023 6:49 AM CDT Alvaro Clark MD LAB - BEAKER POCT Performing Organization Address [facility] Co de Phone Number LABORATORY POC [facility] [place] Core Lab [address] [facility], [address] [place] [address] * Platelet count (12/22/2023 9:55 PM CDT) Platelet Count 179 150 - 450 10e3/uL 12/22/2023 10:12 PM CDT [facility] LABORATORY Blood STRUCTURE OF RIGHT HAND / Unknown IVAD (Port) / Unknown 12/22/2023 9:55 PM CDT 12/22/2023 10:04 PM CDT Alberto Tejeda MD LAB - BLOOD ORDERABL ES Performing Organization Address City/[facility]/ZIP Co de Phone Number U LABORATORY [facility] [place] Core Lab [address] [facility], Room [address] [place] [address], [facility] * XR Abdomen Port 1 View (12/22/2023 [...] Case Report Surgical Pathology Report ? Case: [id number] ? Authorizing Provider: ??Alvaro Clark MD ?Collected: [...] diagnosis of invasion urothelial carcinoma. 6:31 PM CDT [facility] Comment:This is [...] Histologic Grade: ? Grade: ?Grade group 2 ([place] Score 3 + 4 = 7) ?? [...] 9:15 AM Intra op performed at:[facility] LABORATORY, [facility] Core Lab, [address] [facility], [address] [address] Intra-op Dx verbally delivered to Dr. Amber Tanner(2). Ureter, Right, Right distal ureteral margin: BFS1: Negative for malignancy John Carey MD on 12/22/2023 at 9:27 AM Intra op performed at:[facility] LAB[facility]AT[facility], [facility] Core Lab, [address] [facility], [address] [address] Intra-op Dx verbally delivered to Dr. Amber Segura(3). Urethra, urethral margin: CFS1: - No evidence of malignancy Tracie Gonzalez MD on 12/22/2023 at 10:41 AM Intra op performed at:U LABORATORY, [facility], [address] [facility], [address] [address] Intra-op Dx verbally delivered to Dr. Clark [...] reveal no mass deposits or lymph nodes. Magistrate sections are submitted. Gross photography is taken. D1-urethral margin, en face D2-right ureter margin, en face D3-left ureter margin, en face D4-lesion to right ureteral orifice D5-lesion to left ureteral orifice B4-Y61-dwzyap from dome to trigone R92-zjyemx to seminal vesicles K92-qynxg lateral wall B08-qthjzvzc bladder wall D00-bqvq D99-V65-ezsqf prostatic apex M22-T33-qutl prostatic apex D23-mid prostate, right anterior D24-mid prostate, left posterior D25-mid prostate, left anterior D26-mid prostate, left posterior F57-pyzg prostate, right anterior M88-xlqf prostate, right posterior G11-jmlx prostate, mid S15-miow prostate, left anterior L14-rffz prostate, left posterior E(5). Lymph Node(s), Pelvis, [...] possible lymph nodes E2-intact possible lymph node K2-W2-hewoehtp possible lymph node T1-H1-hextdugt possible lymph node M9-F48-srxauizw sectioned possible lymph node F(6). Lymph Node(s), [...] possible lymph nodes F2-bisected possible lymph node R4-T2-oybumzek sectioned possible lymph node G(7). Ureter, Left, [...] submitted in cassette H1. 4 6:[address] [facility] Comment:This is an appended report. These results have been appended to a previously preliminary verified report. Microscopic Description Microscopic description is performed 4 6:[address] [facility] Comment:This is an appended report. These results have been appended to a previously preliminary verified report. MCRS Yes(A) N/A 6:[address] [facility] Comment:This is an appended report. These results have been appended to a previously preliminary verified report. Performing Labs The technical component of this testing was completed at [facility]. Stain controls for all stains [...] [facility] Specialty Lab [address] [facility] [address], [address] [place] [address], [facility] UU LABORATORY [facility] [place] [facility] [address] [facility] [address], Room [address] [place] [address], [facility] * ANE AIRWAY ETT PERFORMABLE (12/22/2023 8:02 AM CDT) Narrative Nessa Pereira APRN GERIATRIC CASE MANAGER - 12/22/2023 8:02 AM CDT Nessa Pereira APRN CRNA ? 12/22/2023 ??8:22 AM Airway ? Patient location during procedure: OR ? Procedure Start/Stop Times: 12/22/2023 8:02 AM Staff - ? GERIATRIC CASE MANAGER: Nessa Pereira APRN CRNA ? Performed By: CRNAIndications and Patient Condition [...] Time: 12/22/2023 8:02 AM Alf Olson MD MA ANESTHESIA * Adult Type and Screen (12/22/2023 6:47 AM CDT) Only the most recent of2 resultswithin the time period is included. ABO/RH(D) A NEG 12/22/2023 6:16 AM CDT UU BLOOD BANK Antibody Screen Negative Negative 12/22/2023 6:16 AM CDT U BLOOD BANK SPECIMEN EXPIRATION DATE [id number] 12/22/2023 6:16 AM CDT U BLOOD BANK Blood STRUCTURE OF RIGHT HAND / Unknown Venipuncture / Unknown 12/22/2023 6:47 AM CDT 12/22/2023 6:56 AM CDT Alvaro Clark MD LAB - BLOOD BANK LICHA T ORDER BLOOD BANK [address] [place] [address], [facility] from Last 3 Months Advance Directives For more information, please contact: [phone] * Full Code (Latest Code Status on [...] saw temple/ legal decision maker Care Teams Outside Sales Representative Relationship Specialty Start Date End Date Votel, Bhavin Ford [address] [place] [address] PCP - General Family Medicine 12/28/23 Alvaro Clark MD [address] [facility] [address] [place], [place] [phone] Assigned Surgical Provider 07/24/23 Ky Torres MD [address] [place] [phone] Assigned Cancer Care Provider 01/22/24
--- OUTSIDE RECORDS SUMMARY | 2024-03-12 15:38 | XMS_ITS | Clinical Summary ---
Author Organization [place] Address [address] [place] [address] Care Team Providers Care Napper Fixer Name Role Phone Alvaro Clark MD Unavailable Bhavin Gardner Primary Care Provider [phone] Ky Torres MD Unavailable [phone] Allergies Active Allergy Reactions Criticality Noted Date [...] Type Department Care Team Description 03/11/2024 Telephone [facility] [address] 4th [place] [address] Josh Clemens MD 02/11/2024 11:00 AM CDT Infusion Therapy Visit [address] [place] [phone] Ky Torres MD Malignant neoplasm of anterior wall of urinary bladder (H) (Primary Dx); Iron deficiency anemia due to chronic blood loss 02/10/2024 10:15 AM CDT Lab [address] [place] [address] Dylan Guerin PA Malignant neoplasm of anterior wall of urinary bladder (H) (Primary Dx) 02/10/2024 10:00 AM CDT Oncology Visit [place] [address] [place] [address] Dylan Guerin PA 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); Iron deficiency anemia due to chronic blood loss 02/10/2024 Orders Only [place] [address] [place] [phone] Charlie Almonte RN Prostate cancer (H) (Primary Dx); Hypothyroidism due to medication 02/10/2024 Travel 02/05/2024 Telephone [facility] [address] [address] Alvaro Clark MD Call Back 02/05/[address] [facility] [place] [place] [address] Ky Torres MD Symptoms 02/04/2024 Orders Only PHARMACY [address] [place] [address] Sigrid Tadeo [facility] 01/25/2024 Telephone [facility] [address] [phone] Alvaro Clark MD 01/22/[address] [facility] [place] [place] [address] Alvaro Clark MD Symptoms 01/18/[address] [facility] [place] [place] [address] Alvaro Clark MD Patient/info Update 01/15/2024 12:40 PM CDT Lab [facility] [address] [place] [address] Urothelial cancer (H) 01/15/2024 11:30 AM CDT Oncology Visit [address] [facility] [place] [place] [address] Ky Torres MD Urothelial cancer (H) (Primary Dx); Prostate cancer (H); Malignant neoplasm of anterior wall of urinary bladder (H) 01/15/2024 10:30 AM CDT Office Visit [address] [place] [address] Alvaro Clark MD Urothelial cancer (H) (Primary Dx); Urinary retention 01/15/[address] [place] [address] Alvaro Clark MD Symptoms 01/15/2024 Travel 01/15/2024 Orders Only [address] [place] [address] Charlie Almonte RN Urothelial cancer (H) (Primary Dx); 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) 01/13/2024 1:02 PM CDT - 01/13/2024 11:59 PM CDT Hospital Encounter [facility] Imaging [address] [place] [address] Yessica Mcleod, PAJannetC Urothelial cancer (H); 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) Discharge Disposition: Home or Self Care 01/13/2024 12:45 PM CDT Lab [address] [place] [address] Alvaro Clark MD Urothelial cancer (H) 01/13/2024 Travel 01/07/[address] [place] [address] Alvaro Clark MD Medication Request 01/02/2024 Team Conference [facility] [address] [address] Guillaume Brenner MD 01/01/2024 9:45 AM CDT Office Visit [address] [facility] [place] [place] [address] Alvaro Clark MD Urothelial cancer (H) (Primary Dx) 01/01/2024 Travel 12/30/2023 10:12 PM CDT - 12/31/2023 1:28 AM CDT Emergency [facility] Emergency Dept [address] [place] [address] Kandi Morales MD Problem with Isaac catheter, initial encounter (H) Discharge Disposition: Home or Self Care 12/30/2023 Travel 12/27/2023 4:52 AM CDT - 12/29/2023 1:34 PM CDT Hospital Encounter [facility] Unit [address] [place] [address] Fernando Romero MD Discharge Disposition: Home or Self Care 12/26/2023 MyC Medical Advice [facility] [address] [facility] [place] [address] Alvaro Clark MD Urothelial cancer (H) (Primary Dx) 12/22/2023 8:00 AM CDT - 12/22/2023 1:00 PM CDT Surgery [facility] [address] [place] [address] Alvaro Clark MD CYSTECTOMY, pelvic node dissection WITH ILEAL NEOBLADDER CREATION 12/22/2023 7:48 AM CDT Anesthesia Event [facility] [address] [place] [address] Alf Olson MD Johnson, Ashley Keryn, APRN BAGGING SALVAGER 12/22/2023 5:50 AM CDT - 12/25/2023 3:50 PM CDT Hospital Encounter [facility] Unit [address]B [place] [address] [place] [address] Alvaro Clark MD Postoperative state (Primary Dx); Bladder cancer (H); Urothelial cancer (H); Lesion of bladder; Post-op pain Discharge Disposition: Home or Self Care 12/11/2023 9:00 AM CDT Lab [facility] [address] 1st [place] [address] Preop examination; 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 (H) 12/11/2023 8:00 AM CDT Office Visit [facility] [address] 5th [place] [phone] Rizwana Tejeda APRN BAGGING SALVAGER Preop examination (Primary Dx); 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 (H) 12/11/2023 Travel 12/11/2023 PRE VISIT [facility] [address] 5th [place] [phone] Rizwana Tejeda APRN BAGGING SALVAGER from Last 3 Months Family History Medical [...] st Contact Info) Description 04/08/2024 1:00 PM SEO INTERN Lab [address] [place] [phone] Yessica Mcleod PA-C [address] [place], [place] [address] 04/08/2024 1:30 PM SEO INTERN Oncology Visit [address] [place] [phone] Dylan Guerin PA [address] [place] [address] 04/08/2024 1:30 PM SEO INTERN Infusion Therapy Visit [address] [place] [phone] Ky Torres MD [address] [address] 05/02/2024 10:30 AM SEO INTERN Lab [address] [place] [address] Ky Torres MD 420 [facility] [address] [place], [place] [address] 05/02/2024 11:20 AM SEO INTERN Appointment [facility] Imaging [address] [place] [address] Ky Torres MD 420 [facility] [address] [place], [place] [address] 05/06/2024 9:30 AM SEO INTERN Lab [address] [place] [address] Ky Torres MD 420 [facility] [address] [address] 05/06/2024 10:00 AM SEO INTERN Oncology Visit [address] [place] [address] Ky Torres MD [address] [place] [address] [address] 05/06/2024 10:30 AM SEO INTERN Infusion Therapy Visit [address] [place] [address] Ky Torres MD [address] [address] Health Maintenance Due Date Last Done Comments [...] this topic Medical Devices Implanted Type Area Jig Box Operator Device Identifier Shelf Expiration Date Model / Serial / Lot Port-08/28/2023 Implanted:Qty: 1 on 08/28/2023 by Pipe Hernandez MD Port Right: Chest Wall [id number] 07/29/2026 / / [id number] Stent Ureteral Type Copy Examiner Diversion 07fr [id number] - [id number] Implanted:Qty: 1 on 12/22/2023 by Alvaro Clark MD at [facility] Stent N/A: Abdomen [employer] [id number] 11/19/2026 [id number] / / [id number] Procedures Procedure Name Priority Date/Time Associated Diagnosis [...] Torres MD LAB - BLOOD ORDERA BLES [facility] [address] Lab (1st floor, no room number) [place] [address] * Lactate Dehydrogenase (02/10/2024 10:23 AM CDT) Lactate Dehydrogenase 163 0 - 250 U/L 02/10/2024 10:59 AM CDT [facility] Blood (Portacath) IVAD (Port) / Unknown 02/10/2024 10:23 AM CDT 02/10/2024 10:35 AM CDT Ky Torres MD LAB - BLOOD ORDERA BLES [facility] Acute Care Lab [address] Lab (1st floor, no room number) [place] [address] * TSH with free T4 reflex (02/10/2024 10:23 AM CDT) TSH 2.32 0.30 - 4.20 uIU/mL 02/10/2024 11:05 AM CDT [facility] Blood (Portacath) IVAD (Port) / Unknown 02/10/2024 10:23 AM CDT 02/10/2024 10:35 AM CDT Ky Torres MD LAB - BLOOD ORDERA BLES LABORATORY [facility] Acute Care Lab [address] [facility] Lab (1st floor, no room number) [place] [address] * (ABNORMAL) Testosterone total (02/10/2024 10:23 AM CDT) Testosterone Total 69(L) 240 - 950 ng/dL 02/14/2024 7:01 AM CDT [facility] Blood (Portacath) IVAD (Port) / Unknown 02/10/2024 10:23 AM CDT 02/10/2024 10:35 AM CDT Ky Torres MD LAB - BLOOD ORDERA BLES [facility] [address] [facility] Unit [facility], Room 35[address] [place] [address] * PSA tumor marker (02/10/2024 10:23 AM [...] LAB - BLOOD ORDERA BLES UU LABORATORY [facility] [place] [facility] Lab 500 [facility] J [facility], Room 3-580 [place] [address], [facility] * (ABNORMAL) Iron & Iron Binding Capacity [...] IBARRA LAB - BLOOD ORDERA BLES LABORATORY [facility] Acute Care Lab [address] Lab (1st floor, no room number) [place] [address] * Ferritin (02/10/2024 10:23 AM CDT) Ferritin 186 31 - 409 ng/mL 02/10/2024 3:05 PM CDT U LABORATORY Blood (Portacath) IVAD (Port) / Unknown 02/10/2024 10:23 AM CDT 02/10/2024 10:35 AM CDT Dylan IBARRA LAB - BLOOD ORDERA BLES UU LABORATORY [facility] [place] [facility] Lab 500 [facility], Room 3[address]184 [place] [address] * (ABNORMAL) Comprehensive metabolic panel (02/10/2024 10:23 [...] LAB - BLOOD ORDERA BLES RH LABORATORY [facility] Acute Care Lab [address] Lab (1st floor, no room number) [place] [address] * Vitamin B12 (02/10/2024 10:23 AM CDT) Vitamin B12 649 232 - 1,245 pg/mL 02/10/2024 3:01 PM CDT [facility]U LABORATORY Blood (Portacath) IVAD (Port) / Unknown 02/10/2024 10:23 AM CDT 02/10/2024 10:35 AM CDT Dylan IBARRA LAB - BLOOD ORDERA BLES UU LABORATORY [facility] [place] [facility] [address] [facility], Room 3[address]580 [place] [address] * (ABNORMAL) Urine Culture (01/15/2024 1:11 PM [...] - MICRO GENERAL ORDERABLES UU IDD LABORATORY [facility] Inf. Diseases Diag. Lab 500 [facility], Room [address] [place] [address] * CT Chest/Abdomen/Pelvis w Contrast (01/13/2024 [...] LAB - BLOOD ORDERABL ES UR LABORATORY [facility] Acute Care Lab [address] [facility], [address] [place] [address] * (ABNORMAL) CBC with platelets (12/29/2023 [...] LAB - BLOOD ORDERABL ES UR LABORATORY [facility] Acute Care Lab [address] [facility], Room [address] [place] [address] * Phosphorus (12/28/2023 11:53 AM CDT) Only [...] Clinic/ZIP Co de Phone Number UR LABORATORY [facility] Lab [address] [place] [address], [address] [address] * Magnesium (12/28/2023 11:53 AM CDT) [...] Clinic/ZIP Co de Phone Number UR LABORATORY [facility] Lab [address] [place] [address], [address] [address] * Electrolyte panel (12/27/2023 7:37 AM [...] LAB - BLOOD ORDERABL ES UR LABORATORY [facility] Acute Care Lab [address] [facility], [address] [place] [address], [facility] * Potassium (External Result) (12/26/2023 11:00 PM CDT) Potassium (External) 4.1 3.6 - 5.1 mmol/L [facility] Blood 12/26/2023 11:0 0 PM CDT [facility] - 12/26/2023 11:00 PM CDT [facility] ED NOTES Provider Outside LAB - HIM EXTERNAL R ESULT [facility] [address] [place] [address], [facility] [phone] * Glucose (External Result) (12/26/2023 11:00 PM CDT) Glucose (External) 112 60 - 115 mg/dL [facility] Blood 12/26/2023 11:0 0 PM CDT [facility] - 12/26/2023 11:00 PM CDT [facility] ED NOTES Provider Outside LAB - HIM EXTERNAL R ESULT Performing Organization Address City/[facility]/ZIP Co de Phone Number [facility] [address] [place] [address], [facility] [phone] * Creatinine (External Result) (12/26/2023 11:00 PM CDT) Creatinine (External) 0.9 0.5 - 1.5 mg/dL [facility] GFR Estimated (External) 95 mL/min [facility] Blood 12/26/2023 11:0 0 PM CDT [facility] - 12/26/2023 11:00 PM CDT [facility] ED NOTES Provider Outside LAB - HIM EXTERNAL R ESULT [facility] [address] [place] [address], [facility] [phone] * AST (External Result) (12/26/2023 11:00 PM CDT) AST (External) 34 12 - 35 U/L [facility] Blood 12/26/2023 11:0 0 PM CDT [facility] - 12/26/2023 11:00 PM CDT [facility] ED NOTES Provider Outside LAB - HIM EXTERNAL R ESULT [facility] [address] [place], [place] [address] [phone] * ALT (External Result) (12/26/2023 11:00 PM CDT) ALT (External) 23 4 - 50 U/L [facility] Blood 12/26/2023 11:0 0 PM CDT [facility] - 12/26/2023 11:00 PM CDT [facility] ED NOTES Provider Outside LAB - HIM EXTERNAL R ESULT Performing Organization Address City/[facility]/ZIP Co de Phone Number [facility] [address] [place] [address], [facility] [phone] * Creatinine fluid (12/25/2023 10:28 AM CDT) [...] BODY FLUIDS OR DERABLES Performing Organization Address City/[facility]/ZIP Co de Phone Number U LABORATORY [facility] [place] [facility] [address] [facility], [address] [place] [address] * (ABNORMAL) Glucose by meter (12/23/2023 6:42 AM CDT) Only the most recent of2 resultswithin the time period is included. GLUCOSE BY METER POCT 118(H) 70 - 99 mg/dL 12/23/2023 6:49 AM CDT U LABORATORY POC Blood, Capillary BLOOD SPECIMEN / Unknown 12/23/2023 6:42 AM CDT 12/23/2023 6:49 AM CDT Alvaro Clark MD LAB - BEAKER POCT Performing Organization Address [facility] Co de Phone Number LABORATORY POC [facility] [place] [facility] [address] [facility], [address] [place] [address] * Platelet count (12/22/2023 9:55 PM CDT) Platelet Count 179 150 - 450 10e3/uL 12/22/2023 10:12 PM CDT U LABORATORY Blood STRUCTURE OF RIGHT HAND / Unknown IVAD (Port) / Unknown 12/22/2023 9:55 PM CDT 12/22/2023 10:04 PM CDT Alberto Tejeda MD LAB - BLOOD ORDERABL ES Performing Organization Address [facility]/ZIP Co de Phone Number LABORATORY [facility] [place] [facility] [address] [facility], [address] [place] [address] * XR Abdomen Port 1 View [...] Case Report Surgical Pathology Report ? Case: [id number] ? Authorizing Provider: ??Alvaro Clark MD ?Collected: [...] Please see comment - Incidental prostatic adenocarcinoma, Amery score 7 (3+4) - Margins are negative [...] BLADDER: CYSTECTOMY, ANTERIOR EXENTERATION - All Specimens - Protocol posted: 02/18/2023 [...] Histologic Grade: ? Grade: ?Grade group 2 (Amery Score 3 + 4 = 7) ?? [...] 9:15 AM Intra op performed at:UU LABORATORY, [facility] [place] [facility], [address] [place] [address], Room 3[facility], [facility] [address] Intra-op Dx verbally delivered to Dr. Amber Tanner(2). Ureter, Right, Right distal ureteral margin: BFS1: Negative for malignancy John Carey MD on 12/22/2023 at 9:27 AM Intra op performed at:[facility] LABORATORY, [facility] Core Lab, 500 [facility], [address] [address] Intra-op Dx verbally delivered to Dr. Amber Segura(3). Urethra, urethral margin: CFS1: - No evidence of malignancy Tracie Gonzalez MD on 12/22/2023 at 10:41 AM Intra op performed at:[facility] LAB[facility], [facility] Core Lab, [address] [facility], Room [address] [place] [address] Intra-op Dx verbally delivered to Dr. Clark [...] reveal no mass deposits or lymph nodes. Human Resource Internship sections are submitted. Gross photography is taken. D1-urethral margin, en face D2-right ureter margin, en face D3-left ureter margin, en face D4-lesion to right ureteral orifice D5-lesion to left ureteral orifice M5-A73-ocbeog from dome to trigone W65-arcuja to seminal vesicles B86-hgwxz lateral wall Q53-zibamcup bladder wall B05-cydc O58-B16-iwsjt prostatic apex H87-J04-enac prostatic apex D23-mid prostate, right anterior D24-mid prostate, left posterior D25-mid prostate, left anterior D26-mid prostate, left posterior T59-tedf prostate, right anterior M39-mrui prostate, right posterior Z29-xqnz prostate, mid F52-zeqw prostate, left anterior U01-zpyj prostate, left posterior E(5). Lymph Node(s), Pelvis, [...] possible lymph nodes E2-intact possible lymph node M3-I6-hkufmjbe possible lymph node A1-S6-ecfascfh possible lymph node V5-D16-xeawrhot sectioned possible lymph node F(6). Lymph Node(s), [...] possible lymph nodes F2-bisected possible lymph node E0-O1-uqknhhwq sectioned possible lymph node G(7). Ureter, Left, [...] Alvaro [facility] [address] [facility] Unit [facility], Room [address] [address] [place] [address] LABORATORY [facility] Core Lab 500 [facility], [address] [address] * ANE AIRWAY ETT PERFORMABLE (12/22/2023 8:02 AM CDT) Narrative Nessa Pereira APRN CUFF SETTER OVERLOCK - 12/22/2023 8:02 AM CDT Nessa Pereira APRN CUFF SETTER OVERLOCK ? 12/22/2023 ??8:22 AM Airway ? Patient location during procedure: OR ? Procedure Start/Stop Times: 12/22/2023 8:02 AM Staff - ? CUFF SETTER OVERLOCK: Nessa Pereira APRN CUFF SETTER OVERLOCK ? Performed By: CRNAIndications and Patient Condition [...] Time: 12/22/2023 8:02 AM Alf Olson MD CO ANESTHESIA * Adult Type and Screen (12/22/2023 6:47 AM CDT) Only the most recent of2 resultswithin the time period is included. ABO/RH(D) A NEG 12/22/2023 6:16 AM CDT U BLOOD BANK Antibody Screen Negative Negative 12/22/2023 6:16 AM CDT U BLOOD BANK SPECIMEN EXPIRATION DATE [id number] 12/22/2023 6:16 AM T BLOOD BANK Blood STRUCTURE OF RIGHT HAND / Unknown Venipuncture / Unknown 12/22/2023 6:47 AM CDT 12/22/2023 6:56 AM CDT Alvaro Clark MD LAB - BLOOD BANK LICHA T ORDER [facility] BLOOD BANK [address] [place] [address], [facility] from Last 3 Months Advance Directives For more information, please contact: [phone] * Full Code (Latest Code Status on [...] saw nt/ legal decision maker Care Teams Napper Fixer Relationship Specialty Start Date End Date Votel, Bhavin Ford [address] [place] [address] PCP - General Family Medicine 12/28/23 Alvaro Clark MD [address] [id number] Assigned Surgical Provider 07/24/23 Ky Torres MD [address] [place] [address] Assigned Cancer Care Provider 01/22/24
--- OUTSIDE RECORDS SUMMARY | 2024-03-12 15:38 | XMS_ITS ---
Author Organization [place] Address [address] [place] [address] Care Team Providers Care Shoe Fitter Name Role Phone Alvaro Clark MD Unavailable Bhavin Gardner Primary Care Provider [phone] Ky Torres MD Unavailable [phone] Active Problems Problem Noted Date Diagnosed Date [...] treatments are documented for this patient in [facility]. Treatments may have been administered in another system. Lifetime Dose Tracking * Chemical Lifetime Dose Automatic Entry Manual Entr y Doxorubicin 117.077 mg/m2 (240 mg) 117.077 mg/m2 (240 mg) 0 mg/m2 (0 mg) Total Air Kerma 2 mGy 2 mGy 0 mGy Fluoro Time 0.3 Minutes 0.3 Minutes 0 Minutes
--- OUTSIDE RECORDS SUMMARY | 2024-03-12 15:38 | XMS_ITS | Encounter Summary ---
Author Organization [facility] Address [address] [place] [address] Care Team Providers Care Post Framer Name Role Phone Alvrao Clark MD Unavailable Bhavin Gardner Primary Care Provider [phone] Ky Torres MD Unavailable [phone] Encounter Details Date Type Department Care Team (Late st Contact Info) Description 03/11/2024 Telephone [facility] [address] [address] Josh Clemens MD [address] [place] [address] Social History Tobacco Use Types Packs/Day [...] encounter Miscellaneous Notes * Telephone Encounter - Josh Clemens MD - 03/11/2024 1:08 PM CDT I was called by the [place] emergency room regarding Mr. Richard. He had some general feeling of malaise this morning and did not do intermittent catheterization. He then presented to the emergency room. They performed a CT scan which showed a 6 x 2-1/2 cm left pelvic fluid collection. This is cons istent with the 7 x 4 fluid collection seen on his December 2023 CT scan done here. We discussed a treatment plan which we determined to be placement of a Isaac catheter to drainage for the next few days and initiation of antibiotics. The follow-up with his primary care in [place] next week likelyfor removal of his Isaac catheter. He can follow-up in urology here sometime over the next 1 to 2 months. documented in this encounter Plan of Treatment Upcoming Encounters Date Type Department Care Team (Late st Contact Info) Description 04/08/2024 1:00 PM WAX BLEACHER Lab [place] [address] [place] [place] [address] Yessica Mcleod PA-C [address] [place] [address] 04/08/2024 1:30 PM WAX BLEACHER Oncology Visit [place] [address] [place] [address] Dylan Guerin PA [address] [place] [address]73005 04/08/2024 1:30 PM WAX BLEACHER Infusion Therapy Visit [place] [address] [place] [address] Ky Torres MD [address] [place] [address] 05/02/2024 10:30 AM WAX BLEACHER Lab [place] [address] [place] [address] Ky Torres MD [address] [place] [address] [facility] [address] [place] [address] 05/02/2024 11:20 AM WAX BLEACHER Appointment [facility] Imaging [address] [place] [address] Ky Torres MD 420 [facility] [address] [place] [address] 05/06/2024 9:30 AM WAX BLEACHER Lab [address] [place] [address] Ky Torres MD [address] 78[address] 05/06/2024 10:00 AM WAX BLEACHER Oncology Visit [address] [place] [address] Ky Torres MD [address] [place] [address] [address] 05/06/2024 10:30 AM WAX BLEACHER Infusion Therapy Visit [address] [place] [address] Ky Torres MD 420 [facility] [address] [place], [place] [address] documented as of this encounter Visit Diagnoses Not on filedocumented in this encounter Care Teams Post Framer Relationship Specialty Start Date End Date Votel, Bhavin [place] [address] PCP - General Family Medicine 12/28/23 Alvaro Clark MD [address] [address] Assigned Surgical Provider 07/24/23 Ky Torres MD [address] [address] Assigned Cancer Care Provider 01/22/24 documented as of this encounter
--- OUTSIDE RECORDS SUMMARY | 2024-03-12 15:38 | XMS_ITS | Encounter Summary ---
Author Organization [facility] Address [address] [place] [address] Care Team Providers Care Sea Foam Kiss Maker Name Role Phone Alvaro Clark MD Unavailable Bhavin Gardner Primary Care Provider [phone] Ky Torres MD Unavailable [phone] Reason for Visit * Reason Comments Chemotherapy Opdivo and Venofer * Treatment and Therapy Plans (Routine) - Authorized Specialty Diagnoses / Procedures Referred By Contac t Referred To Contact Infusion Therapy Diagnoses Malignant neoplasm of anterior wall of urinary bladder (H) Procedures ZZC INJECTION, NIVOLUMAB 1MG Ky Torres MD [address] [address] Rh Cancer Infus [facility] [place] [address] [address] [place] [address] Referral ID Status Reason Start Date Expiration Date V isits Requested Visits Authorized [id number] Authorized 01/15/2024 05/31/2024 99 99 Encounter Details Date Type Department Care Team (Late st Contact Info) Description 02/11/2024 11:00 AM CDT Infusion Therapy Visit [facility] Medical [place] [address] [address] [place] [address] Ky oTrres MD [address] [address] Malignant neoplasm of anterior wall [...] Iron Sucrose Injection (IRON SUCROSE - INJECTION) (Fijian) * Nivolumab Injection (NIVOLUMAB - INJECTION) (Fijian) documented in this encounter Progress Notes * Bessy Diaz RN - 02/11/2024 11:00 AM CDT Infusion Nursing Note: Oleg Richard presents today for C1D1 Opdivo. Patient seen by provider today: No. Dr Torres yesterday 02/10/24. Residential Fee Appraiser present during visit today: Not Applicable. Note: [...] all questions answered. AVS to patient via [employer]. Patient will return 03/11/24 for next appointment. Patient discharged in stable condition accompanied by: self. Departure Mode: Ambulatory. Bessy Diaz RN documented in this encounter Plan of Treatment Upcoming Encounters Date Type Department Care Team (Late st Contact Info) Description 04/08/2024 1:00 PM BALLET TEACHER Lab [place] [address] [place] [address] [place] [address] Yessica Mcleod PA-C [address] [place] [address] 04/08/2024 1:30 PM BALLET TEACHER Oncology Visit [address] [facility] [place] [address] Dylan Guerin PA [address] [facility] [place] [address] 04/08/2024 1:30 PM BALLET TEACHER Infusion Therapy Visit [address] [place] [address] Ky Torres MD [address] [place] [address] [facility] [address] [place] [address] 05/02/2024 10:30 AM BALLET TEACHER Lab [address] [place] [address] Ky Torres MD [address] [place] [address] [address] 05/02/2024 11:20 AM BALLET TEACHER Appointment [facility] Imaging [address] [place] [address] Ky Torres MD [address] [place] [address] [address] 05/06/2024 9:30 AM BALLET TEACHER Lab [address] [place] [address] Ky Torres MD [address] [place] [address] [facility] [address] [place] [address] 05/06/2024 10:00 AM BALLET TEACHER Oncology Visit [address] [place] [address] Ky Torres MD [address] [place] [address] [facility] [address] [place] [address] 05/06/2024 10:30 AM BALLET TEACHER Infusion Therapy Visit [facility] Ctr [facility] [address] [place] [address] Ky Torres MD 420 [facility] 480 [place] [address] documented as of this encounter Visit Diagnoses [...] mLs documented in this encounter Care Teams Sea Foam Kiss Maker Relationship Specialty Start Date End Date VotelBhavin [address] [place] [address] PCP - General Family Medicine 12/28/23 Alvaro Clark MD 420 [facility] [address] [place] [address] Assigned Surgical Provider 07/24/23 Ky Torres MD 420 [facility] 480 [place] [address] Assigned Cancer Care Provider 01/22/24 documented as of this encounter
--- OUTSIDE RECORDS SUMMARY | 2024-03-12 15:39 | XMS_ITS | Encounter Summary ---
Author Organization [facility] Address [address] [place] [address] Care Team Providers Care Account Processor Name Role Phone Alvaro Clark MD Unavailable Yessica Mcleod PA-C Unavailable Bhavin Gardner Primary Care Provider [phone] Encounter Details Date Type Department Care Team [...] st Contact Info) Description 04/08/2024 1:00 PM OFFICE CLEANER Lab [facility]tr [place] [address] [place] [place] [address] Yessica Mcleod, PAJose Luis [address] [place] [address]68[address] 04/08/2024 1:30 PM OFFICE CLEANER Oncology Visit [place] [address] [address] [facility] [place] [address] Dylan Guerin PA [address] [place], [place] 8[address]15 04/08/2024 1:30 PM OFFICE CLEANER Infusion Therapy Visit [address] [place] [address] Ky Torres MD [address] [place] [address] [facility] 480 [place] [address] 05/02/2024 10:30 AM OFFICE CLEANER Lab [address] [place] [address] Ky Torres MD 420 [facility] [address] [address] 05/02/2024 11:20 AM OFFICE CLEANER Appointment [facility] Imaging [address] [place] [address] [place] [address] Ky Torres MD 420 [facility] SE [address] [address] 05/06/2024 9:30 AM OFFICE CLEANER Lab [address] [place] [address] Ky Torres MD [address] [place] [address] [address] 05/06/2024 10:00 AM OFFICE CLEANER Oncology Visit [address] [place] [address] Ky Torres MD 420 [facility] [address] [place] [address] 05/06/2024 10:30 AM OFFICE CLEANER Infusion Therapy Visit [facility] Ctr [facility] [address] [place] [place] [address] Ky Torres MD [address] [address] documented as of this encounter Visit Diagnoses Not on filedocumented in this encounter Care Teams Account Processor Relationship Specialty Start Date End Date Votel, Bhavin Ford [address] [place] [address] PCP - General Family Medicine 12/28/23 Alvaro Clark MD [address] [address] Assigned Surgical Provider 07/24/23 Yessica Mcleod PAJannetC [address] [place] [address] Assigned Cancer Care Provider 12/22/23 01/21/24 documented as of this encounter
--- OUTSIDE RECORDS SUMMARY | 2024-03-12 15:39 | XMS_ITS | Encounter Summary ---
Author Organization [facility] Address [address] [place] [address] Care Team Providers Care Immigration Specialist Name Role Phone Alvaro Clark MD Unavailable Bhavin Gardner Primary Care Provider [phone] Ky Torres MD Unavailable [phone] Reason for Visit * Reason Onset Date Comments Call Back 02/05/2024 Encounter Details Date Type Department Care Team (Late st Contact Info) Description 02/05/2024 [facility] Urology Clinic [address] 4th [place] [address] Alvaro Clark MD 420 [facility] [address] [place] [address] Call Back Social History Tobacco [...] Almonte RN - 02/05/2024 3:26 PM CDT [facility]: Urology Career Development Engineer spoke with Alesha Nurse at ER. Per Alesha ER provider was able to speak with Dr. Clark regarding patient. Patient was started on two week course of Keflex of possible UTI/ cystitis. Patient was discharged home today 02/05/24. Charlie Almonte, RN, BSN. RN Finance Lead [facility] * Telephone Encounter - Paresh Her - 02/05/2024 1:49 PM CDT [facility] Phone Message May a detailed message be left on voicemail: no Reason for Call: Other: Alesha magallon nurse from the ER called to get in contact with Dr Clark. Please call her back at [phone]. Action Taken: Message routed to: [facility] Urology Travel Screening: Not Applicable Date of Service: documented in this encounter Plan of Treatment Upcoming Encounters Date Type Department Care Team (Late st Contact Info) Description 04/08/2024 1:00 PM CAR PUSHER Lab [place] [address] [place] [place] [address] Yessica Mcleod PA-C [address] [place] [address] [id number] 04/08/2024 1:30 PM CAR PUSHER Oncology Visit [place] [address] [place] [address] Dylan Guerin PA [address] [place] [id number] 04/08/2024 1:30 PM CAR PUSHER Infusion Therapy Visit [place] [address] [place] [place] [address] Ky Torres MD [address] [place] [address] [facility] 480 [place] [address] 05/02/2024 10:30 AM CAR PUSHER Lab [address] [place] [address] Ky Torres MD [address] [place] [address] [facility] [address] [place] [address] 05/02/2024 11:20 AM CAR PUSHER Appointment [facility] Imaging [address] [place] [address] [place] [address] Ky Torres MD [address] [place] [address] [facility] [address] [place] [address] 05/06/2024 9:30 AM CAR PUSHER Lab [address] [place] [address] Ky Torres MD [address] [place] [address] [facility] [address] [place] [address] 05/06/2024 10:00 AM CAR PUSHER Oncology Visit [address] [place] [address] Ky Torres MD [address] [place] [address] [facility] [address] [place] [address] 05/06/2024 10:30 AM CAR PUSHER Infusion Therapy Visit [address] [place] [address] Ky Torres MD 420 [facility] [address] [place] [address] documented as of this encounter Visit Diagnoses Not on filedocumented in this encounter Care Teams Immigration Specialist Relationship Specialty Start Date End Date Votel, Bhavin Ford [address] [place] [address] PCP - General Family Medicine 12/28/23 Alvaro Clark MD [address] [place] [address] 394 [place] [address] Assigned Surgical Provider 07/24/23 Ky Torres MD [address] [place] [address] Assigned Cancer Care Provider 01/22/24 documented as of this encounter
--- OUTSIDE RECORDS SUMMARY | 2024-03-12 15:39 | XMS_ITS | Encounter Summary ---
Author Organization [facility] Address [address] [place] [address] Care Team Providers Care Wrapper Stemmer Hand Name Role Phone Alvaro Clark MD Unavailable Bhavin Gardner Primary Care Provider [phone] Ky Torres MD Unavailable [phone] Encounter Details Date Type Department Care Team (Late Contact Info) Description 02/04/2024 Orders Only [facility] [address] [place] [address] Sigrid Tadeo, [facility] Social History Tobacco Use Types Packs/Day [...] (Late Contact Info) Description 04/08/2024 1:00 PM STEAM PRESS TENDER Lab [facility] Medical Ctr [address] [place] [address] Yessica Mcleod PAJannetC [address] [place] [address] 04/08/2024 1:30 PM STEAM PRESS TENDER Oncology Visit [address] [place] [address] Dylan Guerin PA [address] [place] [address] 04/08/2024 1:30 PM STEAM PRESS TENDER Infusion Therapy Visit [address] [place] [address] Ky Torres MD [address] [place] [address] [facility] 480 [place] [address] 05/02/2024 10:30 AM STEAM PRESS TENDER Lab [address] [place] [address] Ky Torres MD [address] [place] [address] [facility] [address] [place] [address] 05/02/2024 11:20 AM STEAM PRESS TENDER Appointment [facility] Imaging [address] [place] [address] [place] [address] Ky Torres MD [address] [place] [address] [facility] [address] [place] [address] 05/06/2024 9:30 AM STEAM PRESS TENDER Lab [address] [place] [address] Ky Torres MD [address] [place] [address] [facility] [address] [place] [address] 05/06/2024 10:00 AM STEAM PRESS TENDER Oncology Visit [address] [facility] [place] [address] Ky Torres MD 420 [facility] 480 [place], [place] [address] 05/06/2024 10:30 AM STEAM PRESS TENDER Infusion Therapy Visit [facility] [address] [place] [address] [place] [address] Ky Torres MD 420 [facility] 480 [place], [place] 4[address] documented as of this encounter Visit Diagnoses Not on filedocumented in this encounter Care Teams Wrapper Stemmer Hand Relationship Specialty Start Date End Date VotelBhavin [address] [place] [address] PCP - General Family Medicine 12/28/23 Alvaro Clark MD 420 [facility] 394 [place], [place] [address] Assigned Surgical Provider 07/24/23 Ky Torres MD 420 [facility] [address] [place] [address] Assigned Cancer Care Provider 01/22/24 documented as of this encounter
--- OUTSIDE RECORDS SUMMARY | 2024-03-12 15:39 | XMS_ITS | Encounter Summary ---
Author Organization [facility] Address [address] [place] [address] Care Team Providers Care Manager Validation Name Role Phone Alvaro Clark MD Unavailable Bhavin Gardner Primary Care Provider [phone] Ky Torres MD Unavailable [phone] Reason for Visit * Reason Onset Date Comments Symptoms 01/22/2024 Encounter Details Date Type Department Care Team (Late st Contact Info) Description 01/22/2024 Telephone [facility] [place] [address] [place] [address] [facility] [place] [address] Alvaro Clark MD 420 [facility] 394 [place] [address] Symptoms Social History Tobacco Use [...] update. States that he was seen in [place] today. Provider who saw pt felt that [...] with plan and will be seen in [place]. Patient verbalized understanding and agreement with plan. Patient was instructed to call the clinicwith any questions, concerns, or worsening symptoms. Will route update to care team. Jami Oseguera RN on 01/22/2024 at 10:44 AM documented in this encounter Plan of Treatment Upcoming Encounters Date Type Department Care Team (Late st Contact Info) Description 04/08/2024 1:00 PM ROUGH CARPENTER Lab [place] [address] [place] [address] [place] [address] Yessica Mcleod PA-C [address] [place] [id number] 04/08/2024 1:30 PM ROUGH CARPENTER Oncology Visit [place] [address] [address] [place] [address] Dylan Guerin PA [address] [place] [address]13565 04/08/2024 1:30 PM ROUGH CARPENTER Infusion Therapy Visit [place] [address] [place] [address] [place] [address] Ky Torres MD 420 [facility] 480 [place], [place] [address] 05/02/2024 10:30 AM ROUGH CARPENTER Lab [address] [place] [address] Ky Torres MD [address] [place] [address] [facility] 480 [place] [address] 05/02/2024 11:20 AM ROUGH CARPENTER Appointment [facility] Imaging [address] [place] [address] [place] [address] Ky Torres MD [address] [place] [address] [facility] [address] [place], [place] [address] 05/06/2024 9:30 AM ROUGH CARPENTER Lab [address] [place] [address] Ky Torres MD [address] [place] [address] [facility] [address] [place] [address] 05/06/2024 10:00 AM ROUGH CARPENTER Oncology Visit [address] [place] [address] Ky Torres MD [address] [place] [address] [facility] [address] [place] [address] 05/06/2024 10:30 AM ROUGH CARPENTER Infusion Therapy Visit [address] [place] [address] Ky Torres MD [address] [place] [address] [facility] [address] [place] [address] documented as of this encounter Visit Diagnoses Not on filedocumented in this encounter Care Teams Manager Validation Relationship Specialty Start Date End Date Votel, Bhavin Ford [address] [place] [address] PCP - General Family Medicine 12/28/23 Alvaro Clark MD 420 [facility] 394 [place] [address] Assigned Surgical Provider 07/24/23 Ky Torres MD [address] [address] Assigned Cancer Care Provider 01/22/24 documented as of this encounter
--- OUTSIDE RECORDS SUMMARY | 2024-03-12 15:39 | XMS_ITS | Encounter Summary ---
Author Organization [facility] Address [address] [place] [address] Care Team Providers Care Graduate Fellow Name Role Phone Alvaro Clark MD Unavailable Bhavin Gardner Primary Care Provider [phone] Ky Torres MD Unavailable [phone] Encounter Details Date Type Department Care Team (Late st Contact Info) Description 01/25/2024 Telephone [facility] Urology Clinic [address] 4th [place] [address] Alvaro Clark MD 420 [facility] 394 [place] [address] Social History Tobacco Use Types [...] follow up on.Pt was given nursetriage number [phone]. documented in this encounter Plan of Treatment Upcoming Encounters Date Type Department Care Team (Late st Contact Info) Description 04/08/2024 1:00 PM INTERPRETATIVE DANCER Lab [address] [place] [address] Yessica Mcleod PA-C 909 [place] [address] 04/08/2024 1:30 PM INTERPRETATIVE DANCER Oncology Visit [address] [place] [address] Dylan Guerin PA 909 [place], [place] [address] 04/08/2024 1:30 PM INTERPRETATIVE DANCER Infusion Therapy Visit [address] [place] [address] Ky Torres MD [address] [place] [address] 05/02/2024 10:30 AM INTERPRETATIVE DANCER Lab [address] [place] [address] Ky Torres MD [address] 46[address] 05/02/2024 11:20 AM INTERPRETATIVE DANCER Appointment [facility] Imaging [address] [place] [address] [place] [address] Ky Torres MD 420 [facility] [address] [place] [address] 05/06/2024 9:30 AM INTERPRETATIVE DANCER Lab [address] [address] [place] [address] Ky Torres MD 420 [facility] [address] [place] [address] 05/06/2024 10:00 AM INTERPRETATIVE DANCER Oncology Visit [address] [place] [address] Ky Torres MD [address] [address] 05/06/2024 10:30 AM INTERPRETATIVE DANCER Infusion Therapy Visit [address] [place] [address] [place] [address] Ky Torres MD [address] [address] documented as of this encounter Visit Diagnoses Not on filedocumented in this encounter Care Teams Graduate Fellow Relationship Specialty Start Date End Date Votel, Bhavin [place] [address] PCP - General Family Medicine 12/28/23 Alvaro Clark MD 420 [facility] 394 [place] [address] Assigned Surgical Provider 07/24/23 Ky Torres MD 420 [facility] [address] [place] [address] Assigned Cancer Care Provider 01/22/24 documented as of this encounter
--- OUTSIDE RECORDS SUMMARY | 2024-03-12 15:39 | XMS_ITS | Encounter Summary ---
Author Organization [place] Address [address] [place] [address] Care Team Providers Care Environmental Technology Professor Name Role Phone Alvaro Clark MD Unavailable Yessica Mcleod PA-C Unavailable Bhavin Gardner Primary Care Provider [phone] Reason for Visit * Reason Comments Oncology Clinic Visit Encounter Details Date Type Department Care Team (Late st Contact Info) Description 01/15/2024 10:30 AM CDT Office [place] [facility] [address] [place] [facility] [place] [phone] Alvaro Clark MD 420 [facility] 394 [place] [address] Urothelial cancer (H) (Primary Dx); [...] above Alvaro Clark MD Department of Urology [facility] * Charlie Almonte RN - 01/15/2024 10:30 [...] contact us with any questions or concerns. Email Marketing Executive faxed medical DME order for home CIC supplies. Charlie Almonte RN, BSN. RN Wagon Driller [facility] [phone] documented in this encounter Nursing Notes * [...] not needed today. Pharmacy name entered into [employer]: [place], [place] - [facility] Frailty Screening: Is the patient here [...] st Contact Info) Description 04/08/2024 1:00 PM CONCRETE BATCHER Lab [address] [place] [phone] Yessica Mcleod PA-C [address] [place] [address] [phone] 04/08/2024 1:30 PM CONCRETE BATCHER Oncology Visit [address] [place] [phone] Dylan Guerin PA [address] [place] [address]345 04/08/2024 1:30 PM CONCRETE BATCHER Infusion Therapy Visit [place] [address] [place] [address] Ky Torres MD [address] [place] [phone] 05/02/2024 10:30 AM CONCRETE BATCHER Lab [address] [place] [address] Ky Torres MD [address] [place] [address] [facility] 480 [place] [address] 05/02/2024 11:20 AM CONCRETE BATCHER Appointment [facility] Center Imaging [address] [place] [address] Ky Torres MD [address] [place] [address] [facility] 480 [place], [place] [address] 05/06/2024 9:30 AM CONCRETE BATCHER Lab [address] [place] [address] Ky Torres MD [address] [place] [address] [address] 05/06/2024 10:00 AM CONCRETE BATCHER Oncology Visit [address] [place] [address] Ky Torres MD [address] [place] [address] [address] 05/06/2024 10:30 AM CONCRETE BATCHER Infusion Therapy Visit [address] [place] [address] Ky Torres MD [address] [place] [address] [facility] 480 [place] [address] documented as of this encounter Visit Diagnoses Diagnosis Urothelial cancer (H)- Primary Malignant neoplasm of other specified sites of urinary organs Urinary retention Retention of urine, unspecified documented in this encounter Care Teams Environmental Technology Professor Relationship Specialty Start Date End Date Votel, Bhavin Ford [address] [place] [address] PCP - General Family Medicine 12/28/23 Alvaro Clark MD [address] [address] Assigned Surgical Provider 07/24/23 Yessica Mcleod PA-C [address] [place] [address] Assigned Cancer Care Provider 12/22/23 01/21/24 documented as of this encounter
--- OUTSIDE RECORDS SUMMARY | 2024-03-12 15:39 | XMS_ITS | Encounter Summary ---
Author Organization [facility] Address [address] [place] [address] Care Team Providers Care Tool Trouble Shooter Name Role Phone Alvaro Clark MD Unavailable Yessica Mcleod PA-C Unavailable Bhavin Gardner Primary Care Provider [phone] Reason for Visit * Reason Onset Date Comments Patient/info Update 01/18/2024 Encounter Details Date Type Department Care Team (Late st Contact Info) Description 01/18/[address] 200 [facility] [place] [place] [address] Alvaro Clark MD 420 [facility] 394 [place] [address] Patient/info Update Social History Tobacco [...] any questions, concerns, or worsening symptoms. Jami Oesguera RN on 01/19/2024 at 9:53 AM * Telephone Encounter - Jami Oseguera RN - 01/19/2024 9:12 AM CDT Images from the original note were not included. Alvaro Clark MD Kraus, Tanner, RN15 hours ago (6:00 PM) LIU Let's switch him to Bactrim. For 10 days. Charlie Watkins RN Sw Cancer [email or web address] minutes ago (8:51 AM) TK Are we [...] fever and chills yesterday. He went to [place] ER early this morning around 2:00 am. [...] that he just feels weak and tired. Hereditary Cancer Program Coordinator advised pt to continue to drink fluids [...] st Contact Info) Description 04/08/2024 1:00 PM PAINTER HELPER Lab [address] [place] [phone] Yessica Mcleod PA-C [address] [place] [address] 04/08/2024 1:30 PM PAINTER HELPER Oncology Visit [place] [address] [place] [address] Dylan Guerin PA [address] [place] [address] 820035 04/08/2024 1:30 PM PAINTER HELPER Infusion Therapy Visit [place] [address] [place] [address] Ky Torres MD [address] [place] [address] [phone] 05/02/2024 10:30 AM PAINTER HELPER Lab [place] [address] [place] [address] Ky Torres MD [address] [facility] 480 [place] [address] 05/02/2024 11:20 AM PAINTER HELPER Appointment [facility] Imaging [address] [place] [address] Ky Trores MD 420 [facility] 480 [place] [address] 05/06/2024 9:30 AM PAINTER HELPER Lab [address] [place] [address] Ky Torres MD 420 [facility] [address] [place] [address] 05/06/2024 10:00 AM PAINTER HELPER Oncology Visit [address] 200 [place] [address] Ky Torres MD [address] [place] [address] [address] 05/06/2024 10:30 AM PAINTER HELPER Infusion Therapy Visit [address] [place] [address] Ky Torres MD 420 [facility] [address] [place] [address] documented as of this encounter Visit Diagnoses Diagnosis Urinary tract infection- Primary Urinary tract infection, site not specified documented in this encounter Care Teams Tool Trouble Shooter Relationship Specialty Start Date End Date Votel, Bhavin ROSE: [phone] [place] [address] PCP - General Family Medicine 12/28/23 Alvaro Clark MD [address] [place] [address] Assigned Surgical Provider 07/24/23 Yessica Mcleod PA-C [address] [place] [address] Assigned Cancer Care Provider 12/22/23 01/21/24 documented as of this encounter
--- OUTSIDE RECORDS SUMMARY | 2024-03-12 15:39 | XMS_ITS | Encounter Summary ---
Author Organization [place] Address [address] [place] [address] Care Team Providers Care Diversity Manager Name Role Phone Alvaro Clark MD Unavailable Yessica Mcleod PA-C Unavailable Bhavin Gardner Primary Care Provider [phone] Encounter Details Date Type Department Care Team (Late Contact Info) Description 01/15/2024 12:40 PM CDT Lab [facility] [address] [place] [address] Urothelial cancer (H) Social History Tobacco Use [...] (Late Contact Info) Description 04/08/2024 1:00 PM SCUBA DIVE TRAINING INSTRUCTOR Lab [facility] [address] [place] [address] [place] [phone] Yessica Mcleod PAJose Luis 909 [place], [place] 7[address] 04/08/2024 1:30 PM SCUBA DIVE TRAINING INSTRUCTOR Oncology Visit [address] [place] [phone] Dylan Guerin PA 909 [place] [address] 04/08/2024 1:30 PM SCUBA DIVE TRAINING INSTRUCTOR Infusion Therapy Visit [address] [place] [address] Ky Torres MD [address] [place] [address] [address] 05/02/2024 10:30 AM SCUBA DIVE TRAINING INSTRUCTOR Lab [address] [place] [address] Ky Torres MD [address] [facility] 480 [place] [address] 05/02/2024 11:20 AM SCUBA DIVE TRAINING INSTRUCTOR Appointment [facility] Imaging [address] [place] [address] [place] [address] Ky Torres MD [address] [facility] 480 [place] [address] 05/06/2024 9:30 AM SCUBA DIVE TRAINING INSTRUCTOR Lab [address] [place] [address] Ky Torres MD [address] [facility] 480 [place] [address] 05/06/2024 10:00 AM SCUBA DIVE TRAINING INSTRUCTOR Oncology Visit [facility] [address] [place] [address] 200 [facility] [place] [address] Ky Torres MD 420 [facility] [place] [address] [place] [address] 05/06/2024 10:30 AM SCUBA DIVE TRAINING INSTRUCTOR Infusion Therapy Visit [facility] Ctr [facility] [address] [place] [address] [place] [address] Ky Torres MD 420 [facility] [place] 480 [place], [place] 136[address] documented as of this encounter Procedures Procedure [...] - MICRO GENERAL ORDERABLES UU IDD LABORATORY [facility] Inf. Diseases Diag. Lab 500 [facility], Room D297 [place] [address] * (ABNORMAL) CBC with platelets and [...] MD LAB - BLOOD ORDERABL ES LABORATORY [facility] Acute Care Lab [address] Lab (1st floor, no room number) [place] [address], [facility] documented in this encounter Visit Diagnoses Diagnosis Urothelial cancer (H) Malignant neoplasm of other specified sites of urinary organs documented in this encounter Care Teams Diversity Manager Relationship Specialty Start Date End Date Votel, Bhavin [place] [address] PCP - General Family Medicine 12/28/23 Alvaro Clark MD [address] [address] Assigned Surgical Provider 07/24/23 Yessica Mcleod PA-C [address] [place] [address] Assigned Cancer Care Provider 12/22/23 01/21/24 documented as of this encounter
--- OUTSIDE RECORDS SUMMARY | 2024-03-12 15:39 | XMS_ITS | Encounter Summary ---
Author Organization [place] Address [address] [place] [address] Care Team Providers Care Veneer Marker Name Role Phone Alvaro Clark MD Unavailable Bhavin Gardner Primary Care Provider [phone] Ky Torres MD Unavailable [phone] Reason for Visit * Reason Onset Date Comments Symptoms 02/05/2024 Encounter Details Date Type Department Care Team (Late st Contact Info) Description 02/05/2024 Telephone [facility] [address] 200 [facility] [place] [address] Ky Torres MD 420 [facility] 480 [place] [address] Symptoms Social History Tobacco Use [...] st Contact Info) Description 04/08/2024 1:00 PM SENIOR APPLICATION PROGRAMMER Lab [place] [address] [place] [address] [place] [phone] Yessica Mcleod PA-C [address] [place] [address] 04/08/2024 1:30 PM SENIOR APPLICATION PROGRAMMER Oncology Visit [place] [address] [place] [address] [place] [address] Dylan Guerin PA 909 [facility] [place] [address] 04/08/2024 1:30 PM SENIOR APPLICATION PROGRAMMER Infusion Therapy Visit [address] [place] [address] Ky Torres MD [address] [place] [address] [facility] 480 [place] [address] 05/02/2024 10:30 AM SENIOR APPLICATION PROGRAMMER Lab [address] [place] [address] Ky Torres MD [address] [place] [address] [address] 05/02/2024 11:20 AM SENIOR APPLICATION PROGRAMMER Appointment [facility] Imaging [address] [place] [address] [place] [address] Ky Torres MD [address] [place] [address] [address] 05/06/2024 9:30 AM SENIOR APPLICATION PROGRAMMER Lab [address] [place] [address] Ky Torres MD [address] [place] [address] [address] 05/06/2024 10:00 AM SENIOR APPLICATION PROGRAMMER Oncology Visit [address] [place] [address] Ky Torres MD 420 [facility] 480 [place] [address] 05/06/2024 10:30 AM SENIOR APPLICATION PROGRAMMER Infusion Therapy Visit [facility] [address] [place] [address] Ky Torres MD 420 [facility] 480 [place] [address] documented as of this encounter Visit Diagnoses Not on filedocumented in this encounter Care Teams Veneer Marker Relationship Specialty Start Date End Date Votel, Bhavin Ford [address] [place] [address] PCP - General Family Medicine 12/28/23 Alvaro lCark MD 420 [facility] 394 [place] [address] Assigned Surgical Provider 07/24/23 Ky Torres MD 420 [facility] 480 [place] [address] Assigned Cancer Care Provider 01/22/24 documented as of this encounter
--- OUTSIDE RECORDS SUMMARY | 2024-03-12 15:39 | XMS_ITS | Encounter Summary ---
Author Organization [facility] Address [address] [place] [address] Care Team Providers Care Home Stager Name Role Phone Alvaro Clark MD Unavailable Yessica Mcleod PA-C Unavailable Bhavin Gardner Primary Care Provider [phone] Reason for Referral * Diagnostic Imaging CT Scan (Routine) - Authorized Specialty Diagnoses / Procedures Referred By Contkatlyn t Referred To Contact Radiology. Diagnoses Urothelial cancer (H) Prostate cancer (H) Procedures CT Chest/Abdomen/Pelvis w Contrast Ky Torres MD 420 [facility] [address] [address] Referral ID Status Reason Start Date Expiration Date V isits Requested Visits Authorized [id number] Authorized 01/18/2024 01/17/2025 1 1 Reason for Visit * Reason Comments Oncology Clinic Visit Encounter Details Date Type Department Care Team (Late st Contact Info) Description 01/15/2024 11:30 AM CDT Oncology Visit [facility] [address] [address] [facility] [place] [phone] Ky Torres MD 420 [facility] 480 [place] [address] Urothelial cancer (H) (Primary Dx); [...] with ddMVAC followed by cystoprostatectomy ypT4N0 disease [facility] HEMATOLOGY AND ONCOLOGY FOLLOW-UP VISIT NOTE PATIENT NAME: Oleg Richard DATE OF VISIT: Jan 15, 2024 DATE OF : 1960 REFERRING PROVIDER: Alvaro Clark MD [address] [address] CANCER TYPE: Urothelial cancer from bladder STAGE: Cancer Staging Bladder cancer (H) Staging form: Urinary Bladder, AJCC 8th Edition - Pathologic stage from 01/15/2024: Stage IIIA (ypT4a, pN0, cM0) - Signed by Ky Torres MDon 01/18/2024 TREATMENT SUMMARY: Oleg presented with urinary retention to the [place] ED on 12/26/23. He had urinary urgency andfrequency for the previous few weeks. He was noted to have urinary retention and blood in urine without any infection. He had a CT scan done in ED which showed decompressed bladder with parry and wasotherwise unremarkable. He then was seen by Carolina Arrieta in urology at [facility] and referred for cystoscopy. He had cystoscopy [...] results for input(s): CEA in the last 90550 hours. Results for orders placed or performed [...] Agency Case Report Surgical Pathology Report Case: [id number] Authorizing Provider: Alvaro Clark MD Collected: 12/22/2023 [...] post neoadjuvant ddMVAC and cystoprostatectomy with neobladder [id number] disease *prostate stroma involvement Incidental prostate cancer [...] documenting in electronic medical record. Ky Torres Beet End Supervisor and Medical Oncologist [facility] documented in this encounter Plan of Treatment Upcoming Encounters Date Type Department Care Team (Late st Contact Info) Description 04/08/2024 1:00 PM DECOMMISSIONING WELL SITE MANAGER Lab [address] [place] [address] Yessica Mcleod PA-C [address] [place] [address] 938355 04/08/2024 1:30 PM DECOMMISSIONING WELL SITE MANAGER Oncology Visit [place] [address] [place] [address] [address] [place] [address] Dylan Guerin PA [address] [place] [address] 04/08/2024 1:30 PM DECOMMISSIONING WELL SITE MANAGER Infusion Therapy Visit [place] [address] [place] [address] [place] [address] Ky Torres MD 420 [facility] 480 [place], [place] [address] 05/02/2024 10:30 AM DECOMMISSIONING WELL SITE MANAGER Lab [address] [place] [address] Ky Torres MD [address] [place] [address] [facility] 480 [place], [place] [address] 05/02/2024 11:20 AM DECOMMISSIONING WELL SITE MANAGER Appointment [facility] Imaging [address] [place] [address] Ky Torres MD [address] [place] [address] [facility] 480 [place] [address] 05/06/2024 9:30 AM DECOMMISSIONING WELL SITE MANAGER Lab [address] [place] [address] Ky Torres MD [address] [place] [address] [facility] 480 [place], [place] [address] 05/06/2024 10:00 AM DECOMMISSIONING WELL SITE MANAGER Oncology Visit [address] [place] [address] Ky Torres MD [address] [place] [address] [facility] [address] [place] [address] 05/06/2024 10:30 AM DECOMMISSIONING WELL SITE MANAGER Infusion Therapy Visit [address] [place] [address] Ky Torres MD [address] [place] [address] [facility] 480 [place], [place] [phone] Scheduled Orders Name Type Priority Associated Diagnoses [...] MD LAB - BLOOD ORDERA BLES LABORATORY [facility] Acute Care Lab [address] [place] [address] Lab (1st floor, no room number) [place] [address], [facility] * (ABNORMAL) Testosterone total (02/10/2024 10:23 AM CDT) Testosterone Total 69(L) 240 - 950 ng/dL 02/14/2024 7:01 AM CDT [facility] Blood (Portacath) IVAD (Port) / Unknown 02/10/2024 10:23 AM CDT 02/10/2024 10:35 AM CDT Ky Torres MD LAB - BLOOD ORDERA BLEAris Performing Organization Address City/[facility] Co de Phone Number [facility] Special Drug/[facility]EN [address] [facility], Room [address] [address] * PSA tumor marker (02/10/2024 10:23 AM CDT) [facility] PSA Tumor Marker 0.02 0.00 - 4.50 [...] - BLOOD ORDERSaran BLEAris Performing Organization Address City/[facility]/ZIP Co de Phone Number [facility]U LABORATORY [facility] [place] Core Lab [address] [facility], [address] [address] * (ABNORMAL) Urine Culture (01/15/2024 1:11 PM CDT) Pathologist [facility] Culture >100,000 CFU/mL Non lactose fermenting gram [...] - MICRO GENERAL ORDERABLES UU IDD LABORATORY [facility] Inf. Diseases Diag. 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
--- OUTSIDE RECORDS SUMMARY | 2024-03-12 15:39 | XMS_ITS | Encounter Summary ---
Author Organization [facility] Address [address] [place] [address] Care Team Providers Care Washerette Machine Operator Name Role Phone Alvaro Clark MD Unavailable Yessica Mcleod PA-C Unavailable Bhavin Gardner Primary Care Provider [phone] Encounter Details Date Type Department Care Team [...] st Contact Info) Description 04/08/2024 1:00 PM BROODMARE BARN GROOM Lab [facility] [place] [address] [place] [address] [place] [phone] Yessica Mcleod, PAJose Luis [address] [place] [address] 875215 04/08/2024 1:30 PM BROODMARE BARN GROOM Oncology Visit [place] [address] [address] [facility] [place] [phone] Dylan Guerin PA 909 [place], [place] 3[address] 04/08/2024 1:30 PM BROODMARE BARN GROOM Infusion Therapy Visit [address] [place] [address] Ky Torres MD [address] [place] [address] [facility] 480 [place] [address] 05/02/2024 10:30 AM BROODMARE BARN GROOM Lab [address] [place] [address] Ky Torres MD 420 [facility] [address] [address] 05/02/2024 11:20 AM BROODMARE BARN GROOM Appointment [facility] Imaging [address] [place] [address] [place] [address] Ky Torres MD 420 [facility] [address] [address] 05/06/2024 9:30 AM BROODMARE BARN GROOM Lab [address] [place] [address] Ky Torres MD [address] [place] [address] [address] 05/06/2024 10:00 AM [place] [employer] [employer]OM Oncology Visit [address] [place] [address] Ky Torres MD 420 [facility] 480 [place] [address] 05/06/2024 10:30 AM [employer]OODMARE BARN GROOM Infusion Therapy Visit [facility] [address] [address] [place] [address] Ky Torres MD [address] [address] documented as of this encounter Visit Diagnoses Not on filedocumented in this encounter Care Teams Washerette Machine Operator Relationship Specialty Start Date End Date Votel, Bhavin Ford [address] [place] [address] PCP - General Family Medicine 12/28/23 Alvaro Clark MD [address] [address] Assigned Surgical Provider 07/24/23 Yessica Mcleod PAJannetC [address] [place] [address] Assigned Cancer Care Provider 12/22/23 01/21/24 documented as of this encounter
--- OUTSIDE RECORDS SUMMARY | 2024-03-12 15:39 | XMS_ITS | Encounter Summary ---
Author Organization [place] Address [address] [place] [address]. [place] [address] Care Team Providers Care Supervisor Statement Clerks Name Role Phone Alvaro Clark MD Unavailable Yessica Mcleod PA-C Unavailable Bhavin Gardner Primary Care Provider [phone] Reason for Visit * Reason Comments Blood Draw CBC, CMP Encounter Details Date Type Department Care Team (Late st Contact Info) Description 01/13/2024 12:45 PM CDT Lab [facility] Cancer [facility] [id number] [place] [address] [address] [place] [address] Alvaro Clark MD 420 [facility] 394 [place] [address] Urothelial cancer (H) Social History [...] labs. Patient seen by provider today: No Psychology Department Chair present during visit today: Not Applicable. Note: [...] Info) Description 04/08/2024 1:00 PM PROFESSOR OF ART HISTORY Lab [address] [address] [place] [address] Yessica Mcleod PA-C [address] [place] [address] [id number] 04/08/2024 1:30 PM PROFESSOR OF ART HISTORY Oncology Visit [place] [address] [place] [address] [place] [address] [place] [address] Dylan Guerin PA [address] [place] [address] 04/08/2024 1:30 PM PROFESSOR OF ART HISTORY Infusion Therapy Visit [place] [address] [place] [address] [place] [address] [place] [address] Ky Torres MD [address] [place] [address] 05/02/2024 10:30 AM PROFESSOR OF ART HISTORY Lab [place] [address] [place] [address] Ky Torres MD [address] [address] [facility] 480 [place] [address] 05/02/2024 11:20 AM PROFESSOR OF ART HISTORY Appointment [facility] Imaging [address] [place] [address] [place] [address] Ky Torres MD 420 [facility] 480 [place] [address] 05/06/2024 9:30 AM PROFESSOR OF ART HISTORY Lab [facility] [address] [place] [address] [address] [place] [address] Ky Torres MD 420 [facility] 480 [place] [address] 05/06/2024 10:00 AM PROFESSOR OF ART HISTORY Oncology Visit [facility] [address] [place] [address] DR [address] [address] [place] [address] Ky Torres MD [address] [place] [address] [facility] 480 [place] [address] 05/06/2024 10:30 AM PROFESSOR OF ART HISTORY Infusion Therapy Visit [facility] [address] [place] [address] [place] [address] Ky Torres MD [address] [place] [address] [facility] 480 [place], [place] 15[address] documented as of this encounter Procedures Procedure [...] LAB - BLOOD ORDERABL ES LABORATORY [facility] [address] [facility] Lab (1st floor, no room number) [place] [address], [facility] * (ABNORMAL) Comprehensive metabolic panel (BMP [...] LAB - BLOOD ORDERABL ES LABORATORY [facility] Lab [address] Lab (1st floor, no room number) [place] [address], [facility] documented in this encounter Visit Diagnoses [...] mLs documented in this encounter Care Teams Supervisor Statement Clerks Relationship Specialty Start Date End Date DaoteBhavin ferrara [address] [place] [address] PCP - General Family Medicine 12/28/23 Alvaro Clark MD [address] [address] Assigned Surgical Provider 07/24/23 Yessica Mcleod, LIDIAC [address] [place] [address] [phone] Assigned Cancer Care Provider 12/22/23 01/21/24 documented as of this encounter
--- OUTSIDE RECORDS SUMMARY | 2024-03-12 15:39 | XMS_ITS | Encounter Summary ---
Author Organization [place] Address [address] [place] [address] Care Team Providers Care Staff Development Coordinator Name Role Phone Alvaro Clark MD Unavailable Yessica Mcelod PA-C Unavailable Bhavin Gardner Primary Care Provider [phone] Reason for Referral * Diagnostic Imaging CT Scan (Routine) - Closed Specialty Diagnoses / Procedures Referred By Virgil ca Referred To Contact Radiology. 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) Procedures CT Chest/Abdomen/Pelvis w Contrast Yessica Mcleod PA-C [address] [place] [address]: [phone] Scan [address] [place] [address] Referral ID Status Reason Start Date Expiration Date Visits Re quested Visits Authorized [id number] Closed 11/27/2023 11/26/2024 1 1 Encounter Details Date Type Department Care Team (Latest Contact Info) Description 01/13/2024 1:02 PM CDT - 01/13/2024 11:59 PM CDT Hospital Encounter [facility] Imaging [address] [place] [address] [place] [phone] Yessica Mcleod, RONALD [address] [place] [address] Urothelial cancer (H); Malignant neoplasm of trigone [...] st Contact Info) Description 04/08/2024 1:00 PM SPORTS FITNESS AND WELLNESS DIRECTOR Lab [place] [address] [place] [address] [address] [place] [address] Yessica Mcleod PA-C [address] [place] [phone] 04/08/2024 1:30 PM SPORTS FITNESS AND WELLNESS DIRECTOR Oncology Visit [place] [address] [address] [place] [address] Dylan Guerin PA [address] [place] [address] 04/08/2024 1:30 PM SPORTS FITNESS AND WELLNESS DIRECTOR Infusion Therapy Visit [place] [address] [address] [place] [address] Ky Torres MD [address] [place] [address] [facility] 480 [place] [address] 05/02/2024 10:30 AM SPORTS FITNESS AND WELLNESS DIRECTOR Lab [address] [place] [address] [place] [address] Ky Torres MD [address] [place] [address] [facility] [address] [place] [address] 05/02/2024 11:20 AM SPORTS FITNESS AND WELLNESS DIRECTOR Appointment [facility] Imaging [address] [place] [address] [place] [address] Ky Torres MD [address] [place] [address] [facility] [address] [place] [address] 05/06/2024 9:30 AM SPORTS FITNESS AND WELLNESS DIRECTOR Lab [address] [place] [address] [place] [address] Ky Torres MD [address] [place] [address] [facility] [address] [place] [address] 05/06/2024 10:00 AM SPORTS FITNESS AND WELLNESS DIRECTOR Oncology Visit [address] [place] 200 [facility] [place] [address] Ky Torres MD [address] [place] [address] [facility] [address] [place] [address] 05/06/2024 10:30 AM SPORTS FITNESS AND WELLNESS DIRECTOR Infusion Therapy Visit [place] [address] [place] [address] [place] [address] Ky Torres MD [address] [address] documented as of this encounter Procedures Procedure [...] mLs documented in this encounter Care Teams Staff Development Coordinator Relationship Specialty Start Date End Date VotelBhavin [address] [place] [address] PCP - General Family Medicine 12/28/23 Alvaro Clark MD [address] [address] Assigned Surgical Provider 07/24/23 Yessica Mcleod PA-C [address] [place] [address] Assigned Cancer Care Provider 12/22/23 01/21/24 documented as of this encounter
--- OUTSIDE RECORDS SUMMARY | 2024-03-12 15:39 | XMS_ITS | Encounter Summary ---
Author Organization [place] Address [address] [place] [address] Care Team Providers Care Hematology Oncology Consultant Name Role Phone Alvaro Clark MD Unavailable Yessica Mcleod PA-C Unavailable Bhavin Gardner Primary Care Provider [phone] Reason for Visit * Reason Onset Date Comments Symptoms 01/15/2024 Encounter Details Date Type Department Care Team (Late st Contact Info) Description 01/15/2024 Telephone [facility] [address] 200 [facility] [place] [address] Alvaro Clark MD [address] [facility] [address] [place] [address] Symptoms Social History Tobacco Use [...] Almonte RN - 01/18/2024 12:32 PM CDT [facility]: Urology Missile Tracking Technician faxed DME order to [facility] for CIC supplies/irrigation orders. Faxed confirmed via RightFax 01/18/24 Charlie Almonte RN, BSN. RN Extrusion Bender [facility] documented in this encounter Plan of Treatment Upcoming Encounters Date Type Department Care Team (Late st Contact Info) Description 04/08/2024 1:00 PM PERINATAL TECH Lab [address] [address] [place] [address] Yessica Mcleod PA-C [address] [place] [address] 04/08/2024 1:30 PM PERINATAL TECH Oncology Visit [address] [place] 200 [place] [address] Dylan Guerin PA [address]09 [place], [place] [address] 04/08/2024 1:30 PM PERINATAL TECH Infusion Therapy Visit [address] [place] [address] [place] [address] Ky Torres MD [address] [place] [address] 05/02/2024 10:30 AM PERINATAL TECH Lab [place] [address] [place] [address] Ky Torres MD [address] [address] 05/02/2024 11:20 AM PERINATAL TECH Appointment [facility] Imaging [address] [place] [address] Ky Torres MD 420 [facility] 480 [place] [address] 05/06/2024 9:30 AM PERINATAL TECH Lab [address] [place] [address] [place] [address] Ky Torres MD 420 [facility] 480 [place], [place] [address] 05/06/2024 10:00 AM PERINATAL TECH Oncology Visit [address] [place] 200 [place] [address] Ky Torres MD [address] [address] 05/06/2024 10:30 AM PERINATAL TECH Infusion Therapy Visit [address] [place] [address] [place] [address] Ky Torres MD [address] [address] documented as of this encounter Visit Diagnoses Not on filedocumented in this encounter Care Teams Hematology Oncology Consultant Relationship Specialty Start Date End Date Votel, Bhavin [address] [place] [address] PCP - General Family Medicine 12/28/23 Alvaro Clark MD 420 [facility] [address] [place] [address] Assigned Surgical Provider 07/24/23 Yessica Mcleod PA-C [address] [place] [address] Assigned Cancer Care Provider 12/22/23 01/21/24 documented as of this encounter
--- OUTSIDE RECORDS SUMMARY | 2024-03-12 15:39 | XMS_ITS | Encounter Summary ---
Author Organization [place] Address [address] [place] [address]. 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 He had urinary urgency andfrequency for the previous few weeks. He was noted to have urinary retention and blood in urine without any infection. He had a CT scan done in ED which showed decompressed bladder with parry and wasotherwise unremarkable. He then was seen by Carolina Arrieta in urology at [facility] and referred for cystoscopy. He had cystoscopy [...] post neoadjuvant ddMVAC and cystoprostatectomy with neobladder [id number] disease *prostate stromainvolvement. Residual disease on pathology [...] Guerin PA-C Department of Hematology and Oncology [facility] documented in this encounter Nursing Notes [...] today. Pharmacy name entered into [facility]: [address] Frailty Screening: Is the patient here for a new oncology consult visit in cancer care? 2. No Clinical concerns: Follow up Veronica Hidalgo MA documented in this encounter Plan of Treatment Upcoming Encounters Date Type Department Care Team (Late st Contact Info) Description 04/08/2024 1:00 PM [facility] [address] [address] [place] [phone] Yessica Mcleod PA-C [address] [place] [address] 04/08/2024 1:30 PM BSA OFFICER Oncology Visit [address] [place] [address] [place] [address] Dylan Guerin PA 909 [place], [place] [address] 04/08/2024 1:30 PM BSA OFFICER Infusion Therapy Visit [address] [address] [place] [address] Ky Torres MD [address] [address] [facility] 480 [place] [address] 05/02/2024 10:30 AM BSA OFFICER Lab [address] [address] [place] [address] Ky Torres MD [address] [address] [facility] 480 [place], [place] [address] 05/02/2024 11:20 AM BSA OFFICER Appointment [facility] Imaging [address] [place] [address] [place] [address] Ky Torres MD [address] [address] [facility] [address] [place] [address] 05/06/2024 9:30 AM BSA OFFICER Lab [address] [address] [place] [address] Ky Torres MD [address] [address] [facility] [address] [place] [address] 05/06/2024 10:00 AM BSA OFFICER Oncology Visit [facility] [address] [place] [address] [place] 200 [facility] [place] [address] Ky Torres MD [address] [address] 05/06/2024 10:30 AM BSA OFFICER Infusion Therapy Visit [facility] [address] [place] [address] [place] [place] [address] Ky Torres MD [address] 3525[address] Scheduled Orders Name Type Priority Associated Diagnoses [...] BLOOD ORDERA BLES UU LABORATORY [facility] [place] Core Lab [address] [facility], Room [address] [address] * Ferritin (02/10/2024 10:23 AM CDT) Ferritin 186 31 - 409 ng/mL 02/10/2024 3:05 PM CDT U LABORATORY Blood (Portacath) IVAD (Port) / Unknown 02/10/2024 10:23 AM CDT 02/10/2024 10:35 AM CDT Dylan IBARRA LAB - BLOOD ORDERA BLES U LABORATORY [facility] [place] Core Lab [address] [facility], Room [address] [address] * (ABNORMAL) Iron & Iron Binding Capacity [...] IBARRA LAB - BLOOD ORDERA BLES LABORATORY [facility] Acute Care Lab [address] Lab (1st floor, no room number) [place] [address], [facility] documented in this encounter Visit Diagnoses Diagnosis Anemia in neoplastic disease- Primary Iron deficiency anemia due to chronic blood loss Iron deficiency anemia secondary to blood loss (chronic) documented in this encounter Care Teams Biology Manager Relationship Specialty Start Date End Date Votel, Bhavin Ford [address] [place] [address] PCP - General Family Medicine 12/28/23 Alvaro Clark MD 420 [facility] 394 [place] [address] Assigned Surgical Provider 07/24/23 Ky Torres MD 420 [facility] 480 [place], [place] 24[address]55 Assigned Cancer Care Provider 01/22/24 documented as of this encounter
--- OUTSIDE RECORDS SUMMARY | 2024-03-12 15:39 | XMS_ITS | Encounter Summary ---
Author Organization [place] Address [address] [place] [address] Care Team Providers Care Cellophane Press Operator Name Role Phone Alvaro Clark MD Unavailable Bhavin Gardner Primary Care Provider [phone] Ky Torres MD Unavailable [phone] Encounter Details Date Type Department Care Team (Late st Contact Info) Description 02/10/2024 Orders Only [address] [place] 200 [facility] [place] [place] [address] Charlie Almonte, CARLOS Prostate cancer (H) (Primary [...] st Contact Info) Description 04/08/2024 1:00 PM MEDICAID COLLECTION SPECIALIST Lab [facility] [address] [place] [address] [place] [address] Yessica Mcleod, PAJannetC [address] [place] [address] 04/08/2024 1:30 PM MEDICAID COLLECTION SPECIALIST Oncology Visit [address] [place] [address] [place] [address] Dylan Guerin PA 909 [place] [address] 04/08/2024 1:30 PM MEDICAID COLLECTION SPECIALIST Infusion Therapy Visit [address] [place] [address] [place] [address] Ky Torres MD [address] [place] [address] [address] 05/02/2024 10:30 AM MEDICAID COLLECTION SPECIALIST Lab [address] [place] [address] [place] [address] Ky Torres MD [address] [place] [address] [address] 05/02/2024 11:20 AM MEDICAID COLLECTION SPECIALIST Appointment [facility] Imaging [address] [place] [address] [place] [address] Ky Torres MD [address] [place] [address] [facility] 480 [place] [address] 05/06/2024 9:30 AM MEDICAID COLLECTION SPECIALIST Lab [address] [place] [address] [place] [address] Ky Torres MD [address] [address] [facility] 480 [place] [address] 05/06/2024 10:00 AM MEDICAID COLLECTION SPECIALIST Oncology Visit [address] [place] 200 [facility] [place] [place] [address] Ky Torres MD 420 [facility] 480 [place], [place] [address] 05/06/2024 10:30 AM MEDICAID COLLECTION SPECIALIST Infusion Therapy Visit [facility] [address] [place] [address] [place] [place] [address] Ky Torres MD [address] [address] documented as of this encounter Results * TSH with free T4 reflex (02/10/2024 10:23 AM CDT) Pathologist [facility] TSH 2.32 0.30 - 4.20 uIU/mL 02/10/2024 11:05 AM CDT RH LABORATORY Blood (Portacath) IVAD (Port) / Unknown 02/10/2024 10:23 AM CDT 02/10/2024 10:35 AM CDT Ky Torres MD LAB - BLOOD ORDERA BLES LABORATORY [facility] Lab [address] [facility] Lab (1st floor, no room number) [place] [address], [facility] * Lactate Dehydrogenase (02/10/2024 10:23 AM CDT) Pathologist [facility] Lactate Dehydrogenase 163 0 - 250 U/L 02/10/2024 10:59 AM CDT LABORATORY Blood (Portacath) IVAD (Port) / Unknown 02/10/2024 10:23 AM CDT 02/10/2024 10:35 AM CDT Ky Torres MD LAB - BLOOD ORDERA BLES [facility] Acute Care Lab [address] [facility] Lab (1st floor, no room number) [place] [address], [facility] documented in this encounter Visit Diagnoses Diagnosis Prostate cancer (H)- Primary Malignant neoplasm of prostate Hypothyroidism due to medication documented in this encounter Care Teams Cellophane Press Operator Relationship Specialty Start Date End Date Votel, Bhavin Ford [address] [place] [address] PCP - General Family Medicine 12/28/23 Alvaro Clark MD 420 [facility] 394 [place] [address] Assigned Surgical Provider 07/24/23 Ky Torres MD [address] [address] Assigned Cancer Care Provider 01/22/24 documented as of this encounter
--- OUTSIDE RECORDS SUMMARY | 2024-03-12 15:39 | XMS_ITS | Encounter Summary ---
Author Organization [place] Address [address] [place] [address] Care Team Providers Care Cash Applications Coordinator Name Role Phone Alvaro Clark MD Unavailable Yessica Mcleod PA-C Unavailable Bhavin Gardner Primary Care Provider [phone] Reason for Visit * Reason Onset Date Comments Medication Request 01/07/2024 Encounter Details Date Type Department Care Team (Late st Contact Info) Description 01/07/2024 Telephone [facility] [address] [place] [address] [address] [facility] [place] [address] Alvaro Clark MD 420 [facility] [address] [place] [address] Medication Request Social History Tobacco [...] need refill by tomorrow. He talked with [facility] in [place] and was told that new Rx would [...] st Contact Info) Description 04/08/2024 1:00 PM PIT MANAGER Lab [address] [place] [address] Yessica Mcleod PAJannetC [address] [place] [address] 04/08/2024 1:30 PM PIT MANAGER Oncology Visit [place] [address] [place] [address] [place] [address] Dylan Guerin PA [address] [place] [address] 04/08/2024 1:30 PM PIT MANAGER Infusion Therapy Visit [place] [address] [place] [address] [place] [address] Ky Torres MD [address] [place] [address] 05/02/2024 10:30 AM PIT MANAGER Lab [place] [address] [place] [address] [place] [address] Ky Torres MD [address] [facility] 480 [place] [address] 05/02/2024 11:20 AM PIT MANAGER Appointment [facility] Imaging [address] [place] [address] [place] [address] Ky Torres MD [address] [facility] [address] [place] [address] 05/06/2024 9:30 AM PIT MANAGER Lab [address] [place] [address] [place] [address] Ky Torres MD 420 [facility] [address] [address] 05/06/2024 10:00 AM PIT MANAGER Oncology Visit [address] [place] [address] [place] [address] Ky Torres MD [address] [place] [address] [address] 05/06/2024 10:30 AM PIT MANAGER Infusion Therapy Visit [address] [place] [address] [place] [address] Ky Torres MD [address] [facility] [address] [place] [address] documented as of this encounter Visit Diagnoses Not on filedocumented in this encounter Care Teams Cash Applications Coordinator Relationship Specialty Start Date End Date Votel, Bhavin ROSE: [phone] [place], [place] [phone] PCP - General Family Medicine 12/28/23 Alvaro Clark MD [address] [place] [address] Assigned Surgical Provider 07/24/23 Yessica Mcleod PA-C [address] [place] [address] Assigned Cancer Care Provider 12/22/23 01/21/24 documented as of this encounter
--- OUTSIDE RECORDS SUMMARY | 2024-03-12 15:39 | XMS_ITS | Encounter Summary ---
Author Organization [place] Address [address] [place] [address] Care Team Providers Care Mixer Crane Operator Name Role Phone Alvaro Clark MD Unavailable Bhavin Gardner Primary Care Provider [phone] Ky Torres MD Unavailable [phone] Encounter Details Date Type Department Care Team [...] st Contact Info) Description 04/08/2024 1:00 PM DIPPER OPERATOR Lab [facility] Medical [place] [address] 200 [place] [address] Yessica Mcleod, PA-C [address] [place] [address] 799445 04/08/2024 1:30 PM DIPPER OPERATOR Oncology Visit [place] [address] [address] 200 [facility] [place] [address] Dylan Guerin PA 909 [place], [place] [address]15 04/08/2024 1:30 PM DIPPER OPERATOR Infusion Therapy Visit [address] 200 [place] [address] Ky Torres MD [address] [facility] 480 [place] [address] 05/02/2024 10:30 AM DIPPER OPERATOR Lab [address] 200 [place] [address] Ky Torres MD [address] [address] 05/02/2024 11:20 AM DIPPER OPERATOR Appointment [facility] Center Imaging [address] [place] [address] Ky Torres MD [address] [address] 05/06/2024 9:30 AM DIPPER OPERATOR Lab [address] 200 [place] [address] Ky Torres MD [address] [address] 05/06/2024 10:00 AM DIPPER OPERATOR Oncology Visit [address] 200 [place] [address] Ky Torres MD 420 [facility] 480 [place] [address] 05/06/2024 10:30 AM DIPPER OPERATOR Infusion Therapy Visit [facility] Medical Ctr [facility] [address] [place] [address] Ky Torres MD 420 [facility] 480 [place] [address] documented as of this encounter Visit Diagnoses Not on filedocumented in this encounter Care Teams Mixer Crane Operator Relationship Specialty Start Date End Date Votel, Bhavin Ford [address] [place] [address] PCP - General Family Medicine 12/28/23 Alvaro Clark MD 420 [facility] 394 [place] [address] Assigned Surgical Provider 07/24/23 Ky Torres MD [address] [address] Assigned Cancer Care Provider 01/22/24 documented as of this encounter
--- OUTSIDE RECORDS SUMMARY | 2024-03-12 15:39 | XMS_ITS | Encounter Summary ---
Author Organization [place] Address [address] [place] [address]. 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) Procedures ZZC INJECTION, NIVOLUMAB 1MG Ky Torres MD [address] [facility] 480 [place] [address] Rh Cancer Infus [facility] Medical Ctr [place] [address] [address] [place] [address] Referral ID Status Reason Start Date Expiration Date V isits Requested Visits Authorized [id number] Authorized 01/15/2024 05/31/2024 99 99 Encounter Details Date Type Department Care Team (Late st Contact Info) Description 02/10/2024 10:15 AM CDT Lab [facility] Medical [place] [address] [address] 200 [place] [address] Dylan Guerin PA 909 [place], [place] [phone] Malignant neoplasm of anterior wall of urinary [...] st Contact Info) Description 04/08/2024 1:00 PM PERMIT COORDINATOR Lab [address] 200 [place] [address] Yessica Mcleod PA-C [address] [place] [address] 04/08/2024 1:30 PM PERMIT COORDINATOR Oncology Visit [place] [address] [place] [address] 200 [place] [address] Dylan Guerin PA [address] [place] [address]17[address] 04/08/2024 1:30 PM PERMIT COORDINATOR Infusion Therapy Visit [place] [address] [place] [address] 200 [place] [address] Ky Torres MD [address] [address] 05/02/2024 10:30 AM PERMIT COORDINATOR Lab [address] 200 [place] [address] Ky Torres MD 420 [facility] 480 [place] [address] 05/02/2024 11:20 AM PERMIT COORDINATOR Appointment [facility] Center Imaging [address] [place] [address] [place] [address] Ky Torres MD [address] [place] [facility] 480 [place] [address] 05/06/2024 9:30 AM PERMIT COORDINATOR Lab [address] 200 [place] [address] Ky Torres MD 420 [facility] 480 [place] [address] 05/06/2024 10:00 AM PERMIT COORDINATOR Oncology Visit [address] 200 [facility] [place] [address] Ky Torres MD 420 [facility] 480 [place] [address] 05/06/2024 10:30 AM PERMIT COORDINATOR Infusion Therapy Visit [address] 200 [place] [address] Ky Torres MD [address] [place] [address] [facility] 480 [place] [address] documented as of this encounter Visit Diagnoses [...] mLs documented in this encounter Care Teams Siebel Crm Developer Relationship Specialty Start Date End Date VotelBhavin [address] [place] [address] PCP - General Family Medicine 12/28/23 Alvaro Clark MD [address] [place] [address] 394 [place], [place] 8277[address] Assigned Surgical Provider 07/24/23 Ky Torres MD 420 [facility] 480 [place] [address] Assigned Cancer Care Provider 01/22/24 documented as of this encounter
--- OUTSIDE RECORDS SUMMARY | 2024-03-12 15:39 | XMS_ITS | Encounter Summary ---
Author Organization [place] Address [address] [place] [address] Care Team Providers Care Gold Marker Name Role Phone Alvaro Clark MD Unavailable Yessica Mcleod PA-C Unavailable Bhavin Gardner Primary Care Provider [phone] Encounter Details Date Type Department Care Team (Late st Contact Info) Description 01/15/2024 Orders Only [facility] [address] [place] 200 [facility] [place] [address] Charlie Almonte, RN Urothelial cancer (H) (Primary [...] st Contact Info) Description 04/08/2024 1:00 PM SHIPBUILDING DRAFTSPERSON Lab [address] 200 [place] [address] Yessica Mcleod PA-C 909 [place], [place] 6[address] 04/08/2024 1:30 PM SHIPBUILDING DRAFTSPERSON Oncology Visit [address] 200 [place] [address] Dylan Guerin PA 909 [place], [place] 8[address] 04/08/2024 1:30 PM SHIPBUILDING DRAFTSPERSON Infusion Therapy Visit [address] 200 [place] [address] Ky Torres MD [address] 6[address] 05/02/2024 10:30 AM SHIPBUILDING DRAFTSPERSON Lab [address] 200 [place] [address] Ky Torres MD [address] [address] 05/02/2024 11:20 AM SHIPBUILDING DRAFTSPERSON Appointment [facility] Center Imaging [address] [place] [address] Ky Torres MD 420 [facility] 480 [place], [place] [address] 05/06/2024 9:30 AM SHIPBUILDING DRAFTSPERSON Lab [address] 200 [place] [address] Ky Torres MD 420 [facility] 480 [place] [address] 05/06/2024 10:00 AM SHIPBUILDING DRAFTSPERSON Oncology Visit [address] 200 [place] [address] Ky Torres MD [address] [place] [address] 05/06/2024 10:30 AM SHIPBUILDING DRAFTSPERSON Infusion Therapy Visit [address] 200 [place] [address] Ky Torres MD [address] [place] [address] Scheduled Orders Name Type Priority Associated Diagnoses [...] bladder documented in this encounter Care Teams Gold Marker Relationship Specialty Start Date End Date Votel, Bhavin [place] [address] PCP - General Family Medicine 12/28/23 Alvaro Clark MD [address] [address] Assigned Surgical Provider 07/24/23 Yessica Mcleod PA-C [address] [place] [address] Assigned Cancer Care Provider 12/22/23 01/21/24 documented as of this encounter
--- OUTSIDE RECORDS SUMMARY | 2024-03-12 15:40 | XMS_ITS | Encounter Summary ---
Author Organization [place] Address [address] [place] [address] Care Team Providers Care Employee Development Director Name Role Phone Alvaro Clark MD Unavailable No Ref-Primary, Physician Primary Care Provider Yessica Mcleod PA-C Unavailable Bhavin Gardner Primary Care Provider [phone] Ky Torres MD Unavailable [phone] Encounter Details Date Type Department Care Team (Late st Contact Info) Description 12/26/2023 [facility] [address] [place] 200 [facility] [place] [address] Alvaro Clark MD [address] [facility] 394 [place] [address] Urothelial cancer (H) (Primary Dx) [...] st Contact Info) Description 04/08/2024 1:00 PM ARMHOLE PRESSER Lab [address] 200 [place] [address] Yessica Mcleod PA-C 909 [place] [address] 04/08/2024 1:30 PM ARMHOLE PRESSER Oncology Visit [address] 200 [place] [address] Dylan Guerin PA 909 [place], [place] 14[address] 04/08/2024 1:30 PM ARMHOLE PRESSER Infusion Therapy Visit [address] 200 [place] [address] Ky Torres MD [address] [address] 05/02/2024 10:30 AM ARMHOLE PRESSER Lab [address] 200 [place] [address] Ky Torres MD [address] [address] 05/02/2024 11:20 AM ARMHOLE PRESSER Appointment [facility] Center Imaging [address] [place] [address] [place] [address] Ky Torres MD 420 [facility] 480 [place] [address] 05/06/2024 9:30 AM ARMHOLE PRESSER Lab [facility] [address] 200 [place] [address] Ky Torres MD [address] [address] 05/06/2024 10:00 AM ARMHOLE PRESSER Oncology Visit [address] 200 [place] [address] Ky Torres MD [address] [place] [address] 05/06/2024 10:30 AM ARMHOLE PRESSER Infusion Therapy Visit [address] 200 [place] [address] Ky Torres MD [address] [place] [address] documented as of this encounter Visit Diagnoses Diagnosis Urothelial cancer (H)- Primary Malignant neoplasm of other specified sites of urinary organs documented in this encounter Care Teams Employee Development Director Relationship Specialty Start Date End Date No Ref-Primary, Physician PCP - General 12/22/23 12/27/23 Bhavin Gardner [address] [place] [address] PCP - General Family Medicine 12/28/23 Alvaro Clark MD [address] [place] [address] 984665 Assigned Surgical Provider 07/24/23 Yessica Mcleod, PAJannetC [address] [place] [address] 774075 Assigned Cancer Care Provider 12/22/23 01/21/24 Ky Torres MD [address] [place] [address] Assigned Cancer Care Provider 01/22/24 documented as of this encounter
--- OUTSIDE RECORDS SUMMARY | 2024-03-12 15:40 | XMS_ITS | Encounter Summary ---
Author Organization [place] Address [address] [place] [address] Care Team Providers Care Stone Rubber Name Role Phone Alvaro Clark MD Unavailable Yessica Mcleod PA-C Unavailable Bhavin Gardner Primary Care Provider [phone] Reason for Visit * Reason Comments Catheter Problem Encounter Details Date Type Department Care Team (Late st Contact Info) Description 12/30/2023 10:12 PM CDT - 12/31/2023 1:28 AM CDT [facility] Emergency Dept [address] [place] [address] Kandi Morales MD [facility] [address] [place], [place] [phone] Problem with Parry catheter, initial encounter (H) [...] Documentation None Medical Decision Making / Diagnosis [facility] Diagnoses: None MIPS None MDM Oleg [...] Contact Info) Description 04/08/2024 1:00 PM WAX PATTERN COATER Lab [address] [place] [address] Yessica Mcleod PA-C 909 [place], [place] [address]15 04/08/2024 1:30 PM WAX PATTERN COATER Oncology Visit [address] 200 [place] [address] Dylan Guerin PA 909 [place], [place] [address] 04/08/2024 1:30 PM WAX PATTERN COATER Infusion Therapy Visit [address] 200 [place] [address] yK Torres MD [address] 5[address] 05/02/2024 10:30 AM WAX PATTERN COATER Lab [address] 200 [place] [address] Ky Torres MD 420 [facility] 480 [place] [address] 05/02/2024 11:20 AM WAX PATTERN COATER Appointment [facility] Imaging [address] [place] [address] [place] [address] Ky Torres MD 420 [facility] 480 [place] [address] 05/06/2024 9:30 AM WAX PATTERN COATER Lab [address] 200 [place] [address] Ky Torres MD [address] [address] 05/06/2024 10:00 AM WAX PATTERN COATER Oncology Visit [address] 200 [place] [address] Ky Torres MD [address] [address] 05/06/2024 10:30 AM WAX PATTERN COATER Infusion Therapy Visit [address] [place] 200 [place] [address] Ky Torres MD [address] [place] [address] documented as of this encounter Visit Diagnoses Diagnosis Problem with Parry catheter, initial encounter (H) documented in this encounter Care Teams Stone Rubber Relationship Specialty Start Date End Date Votel, Bhavin Ford 1400 [place] [address] PCP - General Family Medicine 12/28/23 Alvaro Clark MD [address] [address]88[address] Assigned Surgical Provider 07/24/23 Yessica Mcleod PA-C [address] [place] [address] 232815 Assigned Cancer Care Provider 12/22/23 01/21/24 documented as of this encounter
--- OUTSIDE RECORDS SUMMARY | 2024-03-12 15:40 | XMS_ITS | Encounter Summary ---
Author Organization [place] Address [address] [place] [address] Care Team Providers Care Commercial Real Estate Assistant Name Role Phone Alvaro Clark MD Unavailable Yessica Mcleod PA-C Unavailable Bhavin Gardner Primary Care Provider [phone] Reason for Visit * Reason Comments Oncology Clinic Visit Post opBladder can cer Encounter Details Date Type Department Care Team (Late st Contact Info) Description 01/01/2024 9:45 AM CDT Office Visit [facility] [address] [place] [address] 200 [facility] [place] [address] Alvaro Clark MD 420 [facility] 394 [place] [address] Urothelial cancer (H) (Primary Dx) [...] Please see comment - Incidental prostatic adenocarcinoma, Cullman score 7 (3+4) - Margins are negative [...] above Alvaro Clark MD Department of Urology [facility] documented in this encounter Nursing [...] name entered into [facility]: [place], [place] - [address] [place] [address] Frailty Screening: Is the patient here for [...] st Contact Info) Description 04/08/2024 1:00 PM OUTDOOR POWER EQUIPMENT MECHANIC Lab [address] [place] [address] Yessica Mcleod PA-C 909 [place], [place] [address] 04/08/2024 1:30 PM OUTDOOR POWER EQUIPMENT MECHANIC Oncology Visit [address] 200 [place] [address] Dylan Guerin PA 909 [place], [place] [address] 04/08/2024 1:30 PM OUTDOOR POWER EQUIPMENT MECHANIC Infusion Therapy Visit [address] 200 [place] [address] Ky Torres MD [address] [address]36[address] 05/02/2024 10:30 AM OUTDOOR POWER EQUIPMENT MECHANIC Lab [address] 200 [place] [address] Ky Torres MD 420 [facility] 480 [place] [address] 05/02/2024 11:20 AM OUTDOOR POWER EQUIPMENT MECHANIC Appointment [facility] Center Imaging [address] [place] [address] Drive [address] [place] [address] Ky Torres MD [address] [facility] 480 [place] [address] 05/06/2024 9:30 AM OUTDOOR POWER EQUIPMENT MECHANIC Lab [address] 200 [place] [address] Ky Torres MD [address] [facility] 480 [place] [address] 05/06/2024 10:00 AM OUTDOOR POWER EQUIPMENT MECHANIC Oncology Visit [address] [place] 200 [place] [address] Ky Torres MD 420 [facility] [address] [address] 05/06/2024 10:30 AM OUTDOOR POWER EQUIPMENT MECHANIC Infusion Therapy Visit [address] 200 [place] [address] Ky Trores MD [address] [address] documented as of this encounter Results * (ABNORMAL) Comprehensive metabolic panel (BMP + Alb, Alk Phos, ALT, AST, Total. Bili, TP) (01/13/2024 12:59 PM CDT) Pathologist [facility] Sodium 137 135 - 145 mmol/L 01/13/2024 [...] MD LAB - BLOOD ORDERABL ES LABORATORY [facility] Acute Care Lab [address] [facility] Lab (1st floor, no room number) [place] [address], [facility] documented in this encounter Visit Diagnoses Diagnosis Urothelial cancer (H)- Primary Malignant neoplasm of other specified sites of urinary organs documented in this encounter Care Teams Commercial Real Estate Assistant Relationship Specialty Start Date End Date Votel, Bhavin Ford [address] [place] [address] PCP - General Family Medicine 12/28/23 Alvaro Clark MD [address] [place] [address] [id number] Assigned Surgical Provider 07/24/23 Yessica Mcleod, PAJannetC 909 [place], [place] 663505 Assigned Cancer Care Provider 12/22/23 01/21/24 documented as of this encounter
--- OUTSIDE RECORDS SUMMARY | 2024-03-12 15:40 | XMS_ITS | Encounter Summary ---
Author Organization [facility] Address [address] [place] [address] Care Team Providers Care Engineering Technical Writer Name Role Phone Alvaro Clark MD [...] CREATION possible ileal conduit [facility] [address] [place] [address] Referral ID Status Reason Start Date Expiration Date Visits Re quested Visits Authorized [id number] 1 1 Encounter Details Date Type Department Care Team (Latest Contact Info) Description 12/22/2023 5:50 AM CDT - 12/25/2023 3:50 PM CDT Hospital Encounter M Formerly [facility] [address] [place] [address] [place] [address] Alvaro Clark MD [address] [facility] [address] [place] [address] Postoperative state (Primary Dx); Bladder [...] Dai NP - 12/25/2023 10:13 AM CDT [facility] UroDischarge Summary Patient: Oleg Richard : 1960 [...] Please see comment - Incidental prostatic adenocarcinoma, Lower [place] score 7 (3+4) - Margins are negative [...] a bowel movement in 3 days, start iihv-vdz-jdogtra Milkof Magnesia taken twice daily until you [...] on their own within 5-10 days. - [place] will be removed at your follow up [...] your follow-up appointment. - Your nurse or gearcase assembler will provide written catheter care instructions [...] a clean towel or dried with a hair-spray drier. - You may shower with your [...] Thursday through Thursday 8am to 4:30pm: Call [phone] with questions, requests for medication refills, or to schedule or confirm an appointment. - Nights, weekends, or holidays: call the after hours emergency pager - [phone] and tell the cocoa butter filter operator I would like to page the Urology Resident research instrumentation technician. Typically, the on-call provider should return your call within 30 minutes. Please page the on-call provider again if you haven't been contacted as expected. Rarely, the on-call provider will be unable to promptly return a call due to a hospital emergency. If you have paged twice and are still not contacted, ask the hospital cocoa butter filter operator to page the urology CHIEF-RESIDENT research instrumentation technician. - Please note that due to [...] to reach the Urology resident or PA research instrumentation technician - Week [phone] to reach the Urology resident or PA research instrumentation technician - Weeknights and weekends December 25, [...] Noe Erickson MD, MPH Urology Resident, PGY-2 BUFFER OPERATOR medications: Prior to Admission medications Medication Sig [...] questions or concerns regarding this patient. Note clinical writer may be unavailable. To access [employer] from intranet: under Applications --> Business Applications select [facility] [employer] and search Urology Adult & Pediatric/[facility]. Please note that any question about a urology inpatient, [place], should go to job code [id number]. * [...] Noe Erickson MD, MPH Urology Resident, PGY-2 BUFFER OPERATOR medications: Prior to Admission medications Medication Sig [...] questions or concerns regarding this patient. Note clinical writer may be unavailable. To access [employer] from intranet: under Applications --> Business Applications select [employer] and search Urology Adult & Pediatric/[facility]. Please note that any question about a urology inpatient, [place], should go to job code [id number]. * [...] identified Bed Mobility Bed Mobility supine-sit;sit-supine Supine-Sit Pope (Bed Mobility) verbal cues Sit-Supine Pope (Bed Mobility) verbal cues Transfers Transfers sit-stand transfer Sit-Stand Transfer Sit-Stand Pope (Transfers) supervision Balance Balance Assessment no deficits identified Activities of Daily Living BADL Assessment/Intervention bathing;upper body dressing;lower body dressing;clothing fastener management;grooming;toileting Bathing Assessment/Intervention Pope Level (Bathing) set up Comment, (Bathing) Per clinical judgement Upper Body Dressing Assessment/Training Comment, (Upper Body Dressing) Per clinical judgement Pope Level (Upper Body Dressing) independent Lower Body Dressing Assessment/Training Pope Level (Lower Body Dressing) modified independence Clothes Fastener Management Pope Level (Clothes Fastener Management) independent Grooming Assessment/Training Pope Level (Grooming) supervision Toileting Pope Level (Toileting) supervision Clinical Impression Criteria for [...] Evaluation Time OT Eval, Low Complexity Minutes (66760) 10 OT Goals Therapy Frequency (OT) One [...] Management Self-Care/Home Mgmt/ADL, Compensatory, Meal Prep Minutes (52754) 12 Symptoms Noted During/After Treatment (Meal Preparation/Planning Training) increased pain Treatment Detail/Skilled Intervention OT: Facilitated ADL for increased IND within precautions. Pt educated on abdominal precautions, handout provided. Pt completed log roll technique for bed mobility with verbal cues, progressed to mod IND. Reviewed with pt LB dressing within precautions, pt unable to demo figure four, reported he is familiar with using bladder cleaner tool for LB dressing and has slip on shoes he wears. Educated pt on IADLs with 10 # weight restriction. Pt demo'd mod IND mobility in room once set up with IV pole due to multiple lines, completed ADLS SBA and progressed to mod IND-IND. Therapeutic Activities Therapeutic Activity Minutes (30970) 10 Symptoms noted during/after treatment fatigue Treatment [...] MD. Camilla Larkin MD, PGY-2 Urology Resident BUFFER OPERATOR medications: Prior to Admission medications Medication Sig Start Date End Date Taking? Authorizing Provider acetaminophen-caffeine (EXCEDRIN TENSION HEADACHE) 500-65 MG TABS Take 2 tablets by mouth every 6 hours as needed for mild pain (PRN HEADACHE) Yes Reported, Patient diphenhydrAMINE HCl (BENADRYL ALLERGY PO) Take 1 tablet by mouth as needed Yes Reported, Patient Contacting the urology team: Please see [facility] and page on-call clinician with any questions or concerns regarding this patient. Note clinical writer may be unavailable. To access [employer] from intranet: under Applications --> Business Applications select [employer] and search Urology Adult & Pediatric/[facility]. Please note that any question about a urology inpatient, [place], should go to job code [id number]. * [...] cath with red output. BS+, passing flatus. [place]well urge sat Diet: Clears. Skin/Incisions/Drains: Midline abd [...] 5:41 AM CDT Goal Outcome Evaluation: Shift [phone] A&Ox4, cooperative, makes needs known. Abdominal pain [...] Nicholas RN - 12/24/2023 3:41 AM CDT [id number] Status: OD#1 s/p cystectomy with ileal neobladder [...] and pt belching. thanks. shobha ho rn [phone] * Plan of Care - Ana Thomason [...] inpatient. * Plan of Care - Emely Rodrgiuez PT - 12/23/2023 9:20 AM CDT Physical [...] Name: Oleg Richard Date: 12/22/2023 Attending Surgeon: Alvrao Clark MD Musculoskeletal Physiotherapist(s): Alberto Tejeda M.D.-PGY-5 Preoperative Diagnosis(es): High grade [...] in the usual sterile fashion. A #16 Luxembourgish Parry catheter was placed in the bladder. [...] and vein from the lymph node of [place] proximally to join up with the proximal [...] 60 stapler. We opened the windows of [place] for approximately 5 cm alongthe proximal segment [...] sutures. We then performed a standard stapled xofw-oz-usce functional end-to-end small bowel anastomosis by firing a JORGE 60 stapler along the antimesenteric border and closed the enterotomies for the anastomosis using a TA 60 stapler. The crossing staple lines were reinforced using 3-0 silk suture in a uxxwzc-xz-lspts fashion. A similar suture was done at [...] away from thepouch. We placed a #19 Luxembourgish Brandon drain into the plane between the [...] Tejeda MD - 12/22/2023 2:24 PM CDT [facility] Brief Operative Note Pre-operative diagnosis: Urothelial [...] Implant Name Type Inv. Item Serial No. Baseball Inspector Lot No. LRB No. Used Action [employer] [id number] - [id number] Stent [employer] [id number] [facility] [id number] N/A 1 Implanted Fluids: 3200 crystalloid 250 albumin Admit Urology Urology to irrigate AM and PM Neobladder pathway Alberto Tejeda MD Urology PGY-5 * Pharmacy-Admission Medication History - Uriel Kaba - 12/15/2023 12:03 PM CDT Shock Absorption Floor Layer Pre-operative Admission Medication History Admission medication history [...] 09/14/23 per dispense history. Changes made to BUFFER OPERATOR medication list: Added: None Deleted: None Changed: None Allergies reviewed with patient and updates made in EHR: yes Medication History Completed By: Uriel Kaba 12/15/2023 12:03 PM BUFFER OPERATOR Med List Medication Sig Last Dose acetaminophen-caffeine (EXCEDRIN TENSION HEADACHE) 500-65 MG TABS Take 2 tablets by mouth every 6 hours as needed for mild pain (PRN HEADACHE) diphenhydrAMINE HCl (BENADRYL ALLERGY PO) Take 1 tablet by mouth as needed Associated attestation - Nabeel Mcghee RPH - 12/15/2023 12:17 PM CDT I was not present during the production internship's interview, but I agree with the documentation. Nabeel Mcghee, Pharm.D, [facility] December 15, 2023 documented in this encounter Plan of Treatment Upcoming Encounters Date Type Department Care Team (Late st Contact Info) Description 04/08/2024 1:00 PM RETAIL CUSTODIAL ASSOCIATE Lab [address] [place] [phone] Yessica Mcleod PA-C [address] [place] [address] 04/08/2024 1:30 PM RETAIL CUSTODIAL ASSOCIATE Oncology Visit [address] [place] [phone] Dylan Guerin PA [address] [place], [place] [phone] 04/08/2024 1:30 PM RETAIL CUSTODIAL ASSOCIATE Infusion Therapy Visit [address] [place] [phone] Ky Torres MD [address] [address] 05/02/2024 10:30 AM RETAIL CUSTODIAL ASSOCIATE Lab [address] [place] [phone] Ky Torres MD [address] [address] 05/02/2024 11:20 AM RETAIL CUSTODIAL ASSOCIATE Appointment [facility] [address] [place] [phone] Ky Torres MD [address] [address] 05/06/2024 9:30 AM RETAIL CUSTODIAL ASSOCIATE Lab [place] [address] [place] [address] Ky Torres MD [address] [address] 05/06/2024 10:00 AM RETAIL CUSTODIAL ASSOCIATE Oncology Visit [address] [place] [address] Ky Torres MD [address] [address] 05/06/2024 10:30 AM RETAIL CUSTODIAL ASSOCIATE Infusion Therapy Visit [address] [place] [address] yK Torres MD [address] [address] documented as of this encounter Procedures Procedure [...] - BODY FLUIDS OR DERABLES [facility] [place] [facility] [address] [facility], [address] [place] [address] * (ABNORMAL) CBC with platelets [...] LAB - BLOOD ORDERABL ES [facility] [place] [facility] [address] [facility], [address] [place] [address] * (ABNORMAL) Basic metabolic panel [...] LAB - BLOOD ORDERABL ES [facility] [place] [facility] [address] [facility], [address] [place] [address] * Phosphorus (12/24/2023 6:16 AM CDT) Phosphorus 2.9 2.5 - 4.5 mg/dL 12/24/2023 7:26 AM CDT [facility] Blood (Portacath) IVAD (Port) / Unknown 12/24/2023 6:16 AM CDT 12/24/2023 6:41 AM CDT Alberto Tejeda MD LAB - BLOOD ORDERABL ES Performing Organization Address [facility]/ZIP Co de Phone Number [facility] [place] [facility] [address] [facility], [address] * Magnesium (12/24/2023 6:16 AM CDT) Pathologist [facility] Magnesium 1.8 1.7 - 2.3 mg/dL 12/24/2023 10:59 AM CDT [facility] Blood (Portacath) IVAD (Port) / Unknown 12/24/2023 6:16 AM CDT 12/24/2023 6:41 AM CDT Alberto Tejeda MD LAB - BLOOD ORDERABL ES Performing Organization Address City/[facility] Co de Phone Number [facility] [place] [facility] [address] [facility], [address] * (ABNORMAL) CBC with platelets (12/24/2023 [...] LAB - BLOOD ORDERABL ES [facility] Core Lab [address] [facility], [address] [place] [address] * (ABNORMAL) Basic metabolic panel [...] LAB - BLOOD ORDERABL ES [facility] [place] [facility] [address] [facility], [address] [place] [address] * (ABNORMAL) CBC with platelets [...] LAB - BLOOD ORDERABL ES [facility] [place] [facility] [address] [facility], Room [address] [place] [phone] * (ABNORMAL) Basic metabolic panel [...] - BLOOD ORDERABL ES Performing Organization Address City/[facility]/ZIP Co de Phone Number [facility] [place] [facility] [address] [facility], [address] [place] [address] * (ABNORMAL) Glucose by meter (12/23/2023 6:42 AM CDT) GLUCOSE BY METER POCT 118(H) 70 - 99 mg/dL 12/23/2023 6:49 AM CDT [facility] POC Blood, Capillary BLOOD SPECIMEN / Unknown 12/23/2023 6:42 AM CDT 12/23/2023 6:49 AM CDT Alvaro Clark MD LAB - BEAKER POCT Performing Organization Address City/[facility]/ZIP Co de Phone Number [facility] POC [facility] [place] [facility] [address] [facility], [address] [place] [address] * Platelet count (12/22/2023 9:55 PM CDT) Platelet Count 179 150 - 450 10e3/uL 12/22/2023 10:12 PM CDT [facility] Blood STRUCTURE OF RIGHT HAND / Unknown IVAD (Port) / Unknown 12/22/2023 9:55 PM CDT 12/22/2023 10:04 PM CDT Alberto Tejeda MD LAB - BLOOD ORDERABL ES [facility] [place] [facility] [address] [facility], [address] [place] [address] * XR Abdomen Port 1 [...] findings. ALF MEHTA DO Alberto Tejeda MD [facility] DIAGNOSTIC IMAGI NG ORDERABLES * (ABNORMAL) Surgical Pathology Exam (12/22/2023 8:54 AM CDT) Case Report Surgical Pathology Report ? Case: [id number] ? Authorizing Provider: ??Alvaro Clark MD ?Collected: [...] 9:15 AM Intra op performed at:[facility], [facility] [place] [facility], [address] [place] [address], [facility], Room [address] [address] Intra-op Dx verbally delivered to Dr. Amber Tanner(2). Ureter, Right, Right distal ureteral margin: BFS1: Negative for malignancy John Carey MD on 12/22/2023 at 9:27 AM Intra op performed at:[facility], [facility] Core Lab, [address] [facility], [facility], [address] [address] Intra-op Dx verbally delivered to Dr. Amber Segura(3). Urethra, urethral margin: CFS1: - No evidence of malignancy Tracie Gonzalez MD on 12/22/2023 at 10:41 AM Intra op performed at:[facility], [facility] Lab, [address] [facility], [facility], [address] [address] Intra-op Dx verbally delivered to Dr. Clark [...] reveal no mass deposits or lymph nodes. Well Drill Operator Rotary Drill sections are submitted. Gross photography is taken. D1-urethral margin, en face D2-right ureter margin, en face D3-left ureter margin, en face D4-lesion to right ureteral orifice D5-lesion to left ureteral orifice U2-C87-zlqzsn from dome to trigone A65-fvicrg to seminal vesicles I34-omnph lateral wall I01-buevvhjx bladder wall K20-halr F67-T31-jftgc prostatic apex J86-R79-feru prostatic apex D23-mid prostate, right anterior D24-mid prostate, left posterior D25-mid prostate, left anterior D26-mid prostate, left posterior R36-lnci prostate, right anterior A48-huze prostate, right posterior G15-iuzl prostate, mid R07-riys prostate, left anterior D17-qzxd prostate, left posterior E(5). Lymph Node(s), Pelvis, [...] possible lymph nodes E2-intact possible lymph node S3-K7-budaybrw possible lymph node Y6-C4-ycppazmc possible lymph node B7-S09-ebwnjzxr sectioned possible lymph node F(6). Lymph Node(s), [...] possible lymph nodes F2-bisected possible lymph node I4-D7-uteuloao sectioned possible lymph node G(7). Ureter, Left, [...] component of this testing was completed at [facility]. Stain controls for [...] Alvaro [facility] [address] [facility], [address] [address], [facility] Core Lab [address] [facility], [address] [place] [address], [facility] * (ABNORMAL) Glucose by meter (12/22/2023 6:55 AM CDT) GLUCOSE BY METER POCT 101(H) 70 - 99 mg/dL 12/22/2023 7:01 AM CDT [facility] POC Blood, Capillary BLOOD SPECIMEN / Unknown 12/22/2023 6:55 AM CDT 12/22/2023 7:01 AM CDT Alvaro Clark MD LAB - BEAKER POCT U [facility] POC [facility] [place] [facility] [address] [facility] [address] Building, [address] [place] [address], [facility] * Adult Type and Screen (12/22/2023 6:47 AM CDT) ABO/RH(D) A NEG 12/22/2023 6:16 AM CDT [facility] Antibody Screen Negative Negative 12/22/2023 6:16 AM CDT [facility] SPECIMEN EXPIRATION DATE [id number] 12/22/2023 6:16 AM CDT [facility] Blood STRUCTURE OF RIGHT HAND / Unknown Venipuncture / Unknown 12/22/2023 6:47 AM CDT 12/22/2023 6:56 AM CDT Alvaro Clark MD LAB - BLOOD BANK LICHA T ORDER Performing Organization Address [facility] Co de Phone Number BLOOD BANK [address] [place] [address] documented in this encounter Visit [...] analgesic side effects. Hold while on IV GENERATOR ASSEMBLER or with regular IV opioid dosing. $Given [...] analgesic side effects. Hold while on IV GENERATOR ASSEMBLER or with regular IV opioid dosing. $Given [...] 750 mL in ON-Q C-Bloc select flow ([id number] holds 600-750 mL) dual cath disposable pump [...] Merida RN)1325 ($Given - Provider: Shobha Sneed RN)213 ($Given - Provider: Kelly Nicholas [...] 750 mL in ON-Q C-Bloc select flow ([id number] holds 600-750 mL) dual cath disposable pump [...] used when administering multiple Central Nervous System (PHARMACIST IN CHARGE) depressing meds within a short time frame. [...] analgesic side effects. Hold while on IV GENERATOR ASSEMBLER or with regular IV opioid dosing. 0435 [...] analgesic side effects. Hold while on IV GENERATOR ASSEMBLER or with regular IV opioid dosing. 0435 [...] pre-flush) 0615 ($Given - Provider: Tano Jacome) 0627 ($Given - Provider: Danielle Wilson - Comment: [...] analgesic side effects. Hold while on IV GENERATOR ASSEMBLER or with regular IV opioid dosing. Or oxyCODONE IR (ROXICODONE) tablet 10 mgJump to med 10 mg, Oral, EVERY 4 HOURS PRN, severe pain, Starting on Thu12/22/23 at 1627, Hold oral PRN dose for analgesic side effects. Notify provider to assess for uncontrolled pain or analgesic side effects. Hold while on IV GENERATOR ASSEMBLER or with regular IV opioid dosing. Group [...] provider. documented in this encounter Care Teams Engineering Technical Writer Relationship Specialty Start Date End Date No Ref-Primary, Physician PCP - General 12/22/23 12/27/23 Alvaro Clark MD [address] [address] Assigned Surgical Provider 07/24/23 Yessica Mcleod PA-C [address] [place] [id number] Assigned Cancer Care Provider 12/22/23 01/21/24 documented as of this encounter
--- OUTSIDE RECORDS SUMMARY | 2024-03-12 15:40 | XMS_ITS | Encounter Summary ---
Author Organization [facility] Address [address] [place] [address]. [place] [address] Care Team Providers Care Online Trader Name Role Phone Alvaro Clark MD Unavailable No Ref-Primary, Physician Primary Care Provider Yessica Mcleod PA-C Unavailable Bhavin Gardner Primary Care Provider [phone] Reason for Visit * Auth/Cert (Routine) Specialty Diagnoses / Procedures Referred By Virgil t Referred To Contact Med Surg Diagnoses Post-op complications with small bowel obstruction Small bowel obstruction (H) Ur 8a Med Surg [address] [place] [id number] Referral ID Status Reason Start Date Expiration Date Visits Re quested Visits Authorized [id number] 1 1 Encounter Details Date Type Department Care Team (Latest Contact Info) Description 12/27/2023 4:52 AM CDT - 12/29/2023 1:34 PM CDT Hospital Encounter [facility] Unit [address] [place] [address] Fernando Romero MD [address] [place] [address] [address] [place], [place] [phone] Discharge Disposition: Home or Self Care Social [...] Thursday through Thursday 8am to 4:30pm: Call [phone] with questions or to schedule or confirm appointment. - Nights or weekends: call the after hours emergency pager - [phone] and tell the winding operator I would like to page the Urology Resident customer care voice consultant. - For emergencies, call [phone] The patient was discussed with the chief [...] questions or concerns regarding this patient. Note marine underwriter may be unavailable. To access [facility] from intranet: under Applications --> Business Applications select [facility] Smartweb and search Urology Adult & Pediatric/[facility]. Please note that any question about a urology inpatient, [place], should go to job code [id number]. * [...] questions or concerns regarding this patient. Note marine underwriter may be unavailable. To access [employer] from intranet: under Applications --> Business Applications select [employer] and search Urology Adult & Pediatric/[facility]. Please note that any question about a urology inpatient, [place], should go to job code [id number]. * [...] for post op complication. Pt came from [facility] with family member matthew 05:30 am.Pt has a parry draining bloody catheter. 0 * Lauren Eli RN - 12/27/2023 5:42 AM CDT Reason for admission: Post op complication Primary team notified of pt arrival. Admitted from: [facility] Via: Family car Accompanied by: family members [...] BLADDER TUMOR; Surgeon: Alvaro Clark MD; Location: [facility] [place] Social History: Social History Tobacco [...] mg 750 mg Oral 4x Daily PRN Dmearcus Persaud MD naloxone (NARCAN) injection 0.2 mg [...] reach out to urology resident listed as customer care voice consultant, electrolyte replacement for K>4, Phos>3, and Mg>2, [...] Care Reviewed With: [facility]: improving Shift 7599-6442 Changes this shift: Irrigated parry and pelvic [...] Barahona RN - 12/27/2023 6:31 PM CDT 8040-1146 Blood pressure 132/75, pulse 94, temperature 97.4 [...] * Pharmacy-Admission Medication History - Silvia Sánchez [facility] - 12/27/2023 1:10 PM CDT Pharmacist Admission Medication History Recent Admission 12/22/2023 - 12/25/3023 Admission Medication History completed by pharmacy stock clerk, Uriel Kaba on 12/15/2023. Please see Pharmacy - Admission Medication History note under previous encounter at [facility]. for information regarding prior to admission medications. Silvia Sánchez, PharmElba Clinical Pharmacist documented in this encounter Plan of Treatment Upcoming Encounters Date Type Department Care Team (Late st Contact Info) Description 04/08/2024 1:00 PM DIGITAL MEDIA COORDINATOR Lab [address] [place] [phone] Yessica Mcleod PA-C [address] [place] [id number] 04/08/2024 1:30 PM DIGITAL MEDIA COORDINATOR Oncology Visit [address] [place] [address] Dylan Guerin PA [address] [place] [phone] 04/08/2024 1:30 PM DIGITAL MEDIA COORDINATOR Infusion Therapy Visit [place] [address] [place] [address] Ky Torres MD [address] [id number] 05/02/2024 10:30 AM DIGITAL MEDIA COORDINATOR Lab [place] [address] [place] [address] Ky Torres MD [address] [facility] [address] [place] [address] 05/02/2024 11:20 AM DIGITAL MEDIA COORDINATOR Appointment [facility] Imaging [address] [place] [address] Ky Torres MD 420 [facility] [address] [place] [address] 05/06/2024 9:30 AM DIGITAL MEDIA COORDINATOR Lab [address] [place] [address] Ky Torres MD [address] [place] [address] [facility] [address] [place] [address] 05/06/2024 10:00 AM DIGITAL MEDIA COORDINATOR Oncology Visit [address] [facility] [place] [address] Ky Torres MD 420 [facility] [address] [place] [address] 05/06/2024 10:30 AM DIGITAL MEDIA COORDINATOR Infusion Therapy Visit [address] [place] [address] Ky Torres MD 420 [facility] [address] [place], [place] [phone] documented as of this encounter Procedures Procedure [...] LAB - BLOOD ORDERABL ES UR LABORATORY [facility] Acute Care Lab [address] [facility], [address] [place] [address] * (ABNORMAL) CBC with platelets (12/29/2023 7:28 [...] LAB - BLOOD ORDERABL ES UR LABORATORY [facility] Acute Care Lab [address] [place] [address], Room [place] [id number] * Phosphorus (12/28/2023 11:53 AM CDT) Phosphorus 2.8 2.5 - 4.5 mg/dL 12/28/2023 1:37 PM CDT UR LABORATORY Blood STRUCTURE OF RIGHT UPPER LIMB / Unknown Venipuncture / Unknown 12/28/2023 11:53 AM CDT 12/28/2023 12:53 PM CDT Krystian Manriquez MD LAB - BLOOD ORDERABL ES Performing Organization Address City/[facility]/ZIP Co de Phone Number UR LABORATORY [facility] Acute Care Lab [address] [place] [address], Room [place] [phone] * Magnesium (12/28/2023 11:53 AM CDT) Magnesium 2.0 1.7 - 2.3 mg/dL 12/28/2023 1:37 PM CDT UR LABORATORY Blood STRUCTURE OF RIGHT UPPER LIMB / Unknown Venipuncture / Unknown 12/28/2023 11:53 AM CDT 12/28/2023 12:53 PM CDT Krystian Manriquez MD LAB - BLOOD ORDERABL ES UR LABORATORY [facility] Acute Care Lab [address] [place] [address], Room [address] [phone] * (ABNORMAL) Basic metabolic panel (12/28/2023 11:53 [...] LAB - BLOOD ORDERABL ES UR LABORATORY [facility] Acute Care Lab [address] [facility], [address] [place] [address], [facility] * (ABNORMAL) CBC with platelets (12/28/2023 11:53 [...] LAB - BLOOD ORDERABL ES UR LABORATORY [facility] Acute Care Lab [address] [facility], [address] [place] [address] * Electrolyte panel (12/27/2023 7:37 AM CDT) [...] LAB - BLOOD ORDERABL ES UR LABORATORY [facility] Acute Care Lab [address] [facility], [address] [place] [address] * (ABNORMAL) Basic metabolic panel (12/27/2023 7:37 [...] LAB - BLOOD ORDERABL ES UR LABORATORY [facility] Acute Care Lab [address] [facility], [address] [place] [address], [facility] * (ABNORMAL) CBC with platelets (12/27/2023 [...] LAB - BLOOD ORDERABL ES UR LABORATORY [facility] Acute Care Lab [address] [facility], [address] [place] [address], [facility] documented in this encounter Visit [...] 2 MIN PRN, opioid reversal, Starting on [employer] 12/27/23 at 0517, Administer intravenous route when [...] 2 MIN PRN, opioid reversal, Starting on [employer] 12/27/23 at 0517, Administer intramuscular if an [...] 100 mg, Oral, DAILY, First dose on [employer] 12/27/23 at 0800, Indications: Perioperative Pharmacoprophylaxis $Given [...] RN) 0434 ($Given - Provider: Nanci Cowart, ACRLOS)1235 ($Given - Provider: eBcca Workman RN)1943 ($Given - Provider: Omega Livingston, [...] (ZOFRAN). documented in this encounter Care Teams Online Trader Relationship Specialty Start Date End Date No Ref-Primary, Physician PCP - General 12/22/23 12/27/23 Bhavin Gardner [address] [place] [address] PCP - General Family Medicine 12/28/23 Alvaro Clark MD [address] [place] [address] [phone] Assigned Surgical Provider 07/24/23 Yessica Mcleod, PAJannetC [address] [place] [address] [phone] Assigned Cancer Care Provider 12/22/23 01/21/24 documented as of this encounter
--- OUTSIDE RECORDS SUMMARY | 2024-03-12 15:40 | XMS_ITS | Encounter Summary ---
Author Organization [facility] Address [address] [place] [address] Care Team Providers Care Senior Energy Analyst Name Role Phone Alvaro Clark MD Unavailable Yessica Mcleod PA-C Unavailable Bhavin Gardner Primary Care Provider [phone] Encounter Details Date Type Department Care Team (Late st Contact Info) Description 01/02/2024 Team Conference [facility] [address] 4th [place] [address] Guillaume Brenner MD [address] [place] [address] Social History Tobacco Use Types Packs/Day [...] st Contact Info) Description 04/08/2024 1:00 PM ENDODONTIC ASSISTANT Lab [address] [place] [address] Yessica Mcleod PA-C [address] [place] [place] [phone] 04/08/2024 1:30 PM ENDODONTIC ASSISTANT Oncology Visit [address] [place] [address] Dylan Guerin PA [address] [place] [address] [phone] 04/08/2024 1:30 PM ENDODONTIC ASSISTANT Infusion Therapy Visit [place] [address] [place] [address] [place] [address] Ky Torres MD [address] [place] [address] [phone] 05/02/2024 10:30 AM ENDODONTIC ASSISTANT Lab [address] [place] [address] Ky Torres MD 420 [facility] [address] [place] [address] 05/02/2024 11:20 AM ENDODONTIC ASSISTANT Appointment [facility] Imaging [address] [place] [address] [place] [address] Ky Torres MD 420 [facility] [address] [place] [address] 05/06/2024 9:30 AM ENDODONTIC ASSISTANT Lab [address] [place] [address] Ky Torres MD [address] [place] [address] [facility] [address] [place] [address] 05/06/2024 10:00 AM ENDODONTIC ASSISTANT Oncology Visit [address] [place] [address] Ky Torres MD [address] [place] [address] [address] 05/06/2024 10:30 AM ENDODONTIC ASSISTANT Infusion Therapy Visit [address] [place] [address] Ky Torres MD 420 [facility] [address] [place] [address] documented as of this encounter Visit Diagnoses Not on filedocumented in this encounter Care Teams Senior Energy Analyst Relationship Specialty Start Date End Date Votel, Bhavin ROSE: [phone] [address] [place] [address] PCP - General Family Medicine 12/28/23 Alvaro Clark MD [address] [address] Assigned Surgical Provider 07/24/23 Yessica Mcleod PA-C [address] [place] [address] Assigned Cancer Care Provider 12/22/23 01/21/24 documented as of this encounter
--- OUTSIDE RECORDS SUMMARY | 2024-03-12 15:40 | XMS_ITS | Encounter Summary ---
Author Organization [facility] Address [address] [place] [address] Care Team Providers Care Channeling Machine Runner Name Role Phone Alvaro Clark MD Unavailable Yessica Mcleod PA-C Unavailable Bhavin Gardner Primary Care Provider [phone] Encounter Details Date Type Department Care Team [...] st Contact Info) Description 04/08/2024 1:00 PM HYDROLOGICAL TECHNICAL OFFICER Lab [facility] [place] [address] [place] [place] [phone] Yessica Mcleod, PAJose Luis [address] [place] [phone] 04/08/2024 1:30 PM HYDROLOGICAL TECHNICAL OFFICER Oncology Visit [place] [address] [address] [facility] [place] [phone] Dylan Guerin PA [address] [place], [place] [address] 04/08/2024 1:30 PM HYDROLOGICAL TECHNICAL OFFICER Infusion Therapy Visit [address] [place] [address] Ky Torres MD [address] [facility] [address] [place] [address] 05/02/2024 10:30 AM HYDROLOGICAL TECHNICAL OFFICER Lab [address] [place] [address] Ky Torres MD 420 [facility] [address] [address] 05/02/2024 11:20 AM HYDROLOGICAL TECHNICAL OFFICER Appointment [facility] Imaging [address] [place] [place] [address] Ky Torres MD 420 [facility] [address] [address] 05/06/2024 9:30 AM HYDROLOGICAL TECHNICAL OFFICER Lab [address] [place] [address] Ky Torres MD [address] [address] 05/06/2024 10:00 AM HYDROLOGICAL TECHNICAL OFFICER Oncology Visit [address] [place] [address] yK Torres MD 420 [facility] [address] [place] [address] 05/06/2024 10:30 AM HYDROLOGICAL TECHNICAL OFFICER Infusion Therapy Visit [facility] [address] [place] [address] Ky Torres MD [address] [address] documented as of this encounter Visit Diagnoses Not on filedocumented in this encounter Care Teams Channeling Machine Runner Relationship Specialty Start Date End Date Votel, Bhavin Ford [address] [place] [address] PCP - General Family Medicine 12/28/23 Alvaro Clark MD [address] [address] Assigned Surgical Provider 07/24/23 Yessica Mcleod PAJannetC [address] [place] [address] Assigned Cancer Care Provider 12/22/23 01/21/24 documented as of this encounter
--- OUTSIDE RECORDS SUMMARY | 2024-03-12 15:40 | XMS_ITS | Encounter Summary ---
Author Organization [place] [facility] Address [address] [place] [address] Care Team Providers Care Solutions Developer Name Role Phone Alvaro Clark MD Unavailable Yessica Mcleod PA-C Unavailable Bhavin Gardner Primary Care Provider [phone] Encounter Details Date Type Department Care Team [...] st Contact Info) Description 04/08/2024 1:00 PM PROFESSOR/NURSE ANESTHETIST Lab [facility] [place] [address] [place] [address] [place] [phone] Yessica Mcleod, PAJose Luis [address] [place] [address] 04/08/2024 1:30 PM PROFESSOR/NURSE ANESTHETIST Oncology Visit [place] [address] [address] [facility] [place] [phone] Dylan Guerin PA [address] [place], [place] [address] 04/08/2024 1:30 PM PROFESSOR/NURSE ANESTHETIST Infusion Therapy Visit [address] [place] [address] Ky Torres MD [address] [facility] [address] [place] [address] 05/02/2024 10:30 AM PROFESSOR/NURSE ANESTHETIST Lab [address] [place] [address] Ky Torres MD 420 [facility] [address] [address] 05/02/2024 11:20 AM PROFESSOR/NURSE ANESTHETIST Appointment [facility] Imaging [address] [place] [address] Ky Torres MD 420 [facility] [address] [address] 05/06/2024 9:30 AM PROFESSOR/NURSE ANESTHETIST Lab [address] [place] [address] Ky Torres MD [address] [place] [address] [address] 05/06/2024 10:00 AM PROFESSOR/NURSE ANESTHETIST Oncology Visit [address] [place] [address] Ky Torres MD 420 [facility] 480 [place] [address] 05/06/2024 10:30 AM PROFESSOR/NURSE ANESTHETIST Infusion Therapy Visit [facility] [address] [place] [address] Ky Torres MD [address] [address] documented as of this encounter Visit Diagnoses Not on filedocumented in this encounter Care Teams Solutions Developer Relationship Specialty Start Date End Date Votel, Bhavin Ford [address] [place] [address] PCP - General Family Medicine 12/28/23 Alvaro Clark MD [address] [address] Assigned Surgical Provider 07/24/23 Yessica Mcleod PAJannetC [address] [place] [address] Assigned Cancer Care Provider 12/22/23 01/21/24 documented as of this encounter
--- OUTSIDE RECORDS SUMMARY | 2024-03-12 15:41 | XMS_ITS | Encounter Summary ---
Author Organization [facility] Address [address] [place] [address] Care Team Providers Care Surgical Services Manager Name Role Phone Alvaro Clark MD Unavailable System, Provider Not In Primary Care Provider Un available Sixto Whalen APRN SENIOR TAX ANALYST Unavailable [phone] Reason for Visit * Reason Comments Pre-Op Exam Encounter Details Date Type Department Care Team (Latest Contact Info) Description 12/11/2023 8:00 AM CDT Office Visit [facility] Preoperative Assessment Center [address] [place] [address] Rizwana Tejeda APRN [address] [address] Preop examination (Primary Dx); 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 (H) Anesthesia Record Procedure Summary Procedure Name Responsible Anesthesiologist Anesthesia Start Time Anesthesia Stop Time CYSTECTOMY, pelvic node dissection WITH ILEAL NEOBLADDER CREATION (Abdomen) Forest Olson MD 12/22/23 0748 12/22/23 1437 Events Date Time Event Comment 12/22/2023 0654 CREOSOTING ENGINEER Ready for Procedure 0723 0748 An Start Anesthesia Star t is [...] Single 08/28/23; 0916; Right; Chest wall; Yes; [id number]; Yes; Yes; 6 Fr; 21 cm; SVC/RA [...] Cowan 2; Grade View: 1; Placement Person: CREOSOTING ENGINEER; Attempts: 1 12/22/23 0802 by Nessa Pereira [...] Drain 12/22/23; 1408; RLQ ; Bulb; 19 Ukrainian 12/22/23 1408 by Natasha Alejo RN 12/25/23 [...] to: Please come to: [facility] Unit [address] [place] [address] The [facility] [place] Patient/Visitor Ramp is at [address] [facility] [address]. Patients and visitors who self-park will receive the reduced hospital parking rate. If the Patient /Visitor Ramp is full, please follow the signs to the [employer] car park located at the main hospital entrance. [employer]opt[employer] parking is available (24 hours/ 7 days a week) Discounted parking pass options are available for patients and visitors. They can be purchased at the [facility] desk at the main hospital entrance. - Stop at the security desk and they will direct surgery patients to the Surgery Check in and Family Lounge. [phone] - If you need directions, a wheelchair [...] contact the Pre Admission Nursing Office at [phone]. - If you have health changes between [...] others Clean your hands with alcohol hand pharmacovigilance specialist. Do this when you arrive at and [...] encounter H&P Notes * Rizwana Tejeda APRN SENIOR TAX ANALYST - 12/11/2023 8:00 AM CDT Images from [...] P in preparation for Procedure Information Case: [id number] Date/Time: 12/22/23 0800 Procedure: CYSTECTOMY, pelvic node [...] BLADDER TUMOR; Surgeon: Alvaro Clark MD; Location: [facility] OR Prior to Admission Medications Current Outpatient [...] Resource Strain: High Risk (06/01/2021) Received from [facility], [facility] Financial Resource Strain Difficulty of Paying Living Expenses: Not on file Difficulty of Paying Living Expenses: Not on file Food Insecurity: Not on file Transportation Needs: Not on file Physical Activity: Not on file Stress: Not on file Social Connections: Unknown (08/15/2021) Received from [employer], [facility] Social Connections Frequency of Communication with [...] but 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 Denies any exertional dyspnea or [...] Rizwanakristin Tejeda APRN CNP Preoperative Assessment Center [facility] documented in this encounter Plan of Treatment Upcoming Encounters Date Type Department Care Team (Late st Contact Info) Description 04/08/2024 1:00 PM SUPERVISOR LOADING Lab [address] [place] [phone] Yessica Mcleod PAJannetC 909 [place], [place] [address] 04/08/2024 1:30 PM SUPERVISOR LOADING Oncology Visit [address] [place] [address] Dylan uGerin PA 909 [place] [address] 04/08/2024 1:30 PM SUPERVISOR LOADING Infusion Therapy Visit [address] [place] [address] Ky Torres MD [address] [place] [address] 05/02/2024 10:30 AM SUPERVISOR LOADING Lab [place] [address] [place] [address] Ky Torres MD [address] [address] 05/02/2024 11:20 AM SUPERVISOR LOADING Appointment [facility] Imaging [address] [place] [address] Ky Torres MD [address] [place] [address] [facility] 480 [place] [address] 05/06/2024 9:30 AM SUPERVISOR LOADING Lab [facility] [address] [place] [address] [address] [place] [address] Ky Torres MD [address] [place] [address] [address] 05/06/2024 10:00 AM SUPERVISOR LOADING Oncology Visit [address] [place] [address] Ky Torres MD [address] [place] [address] [address] 05/06/2024 10:30 AM SUPERVISOR LOADING Infusion Therapy Visit [facility] [address] [place] [address] [address] [place] [address] Ky Torres MD [address] [place] [address] [address] documented as of this encounter Results * Basic metabolic panel (12/11/2023 8:32 AM CDT) Pathologist [facility] Sodium 140 135 - 145 mmol/L 12/11/2023 9:04 AM CDT [facility] LABORATORY - CORE LAB Potassium 4.8 3.4 - 5.3 mmol/L 12/11/2023 9:04 AM CDT [facility] LABOR[facility]ORY - CORE LAB Chloride 103 98 - 107 mmol/L 12/11/2023 9:04 AM CDT [facility] - CORE LAB Carbon Dioxide (CO2) 28 22 - 29 mmol/L 12/11/2023 9:04 AM CDT [facility] - CORE LAB Anion Gap 9 7 - 15 mmol/L 12/11/2023 9:04 AM CDT [facility] - CORE LAB Urea Nitrogen 14.4 8.0 - 23.0 mg/dL 12/11/2023 9:04 AM CDT [facility]ORY - CORE LAB Creatinine 0.86 0.67 - 1.17 mg/dL 12/11/2023 9:04 AM CDT [facility] - CORE LAB GFR Estimate >90 >60 mL/min/1.7 3m2 12/11/2023 9:04 AM CDT [facility] - CORE LAB Comment:eGFR calculated us2020 CKD-EPI equation. Calcium 9.2 8.8 - 10.2 mg/dL 12/11/2023 9:04 AM CDT [facility] - CORE LAB Glucose 99 70 - 99 mg/dL 12/11/2023 9:04 AM CDT [facility]ORY - CORE LAB Blood STRUCTURE OF LEFT UPPER LIMB / Unknown Venipuncture / Unknown 12/11/2023 8:32 AM CDT 12/11/2023 8:32 AM CDT Rizwana Tejeda APRN SENIOR TAX ANALYST LAB - BLOO D ORDERABLES [facility] LABORATORY - CORE LAB [facility] Clinics and Surgery Center [facility] [address] [facility] 1st [place] [address] * (ABNORMAL) CBC with platelets (12/11/2023 8:32 AM CDT) WBC Count 7.1 4.0 - 11.0 10e3/uL 12/11/2023 8:38 AM CDT [facility] - CORE LAB RBC Count 3.91(L) 4.40 - 5.90 10e6/uL 12/11/2023 8:38 AM CDT [facility] - CORE LAB Hemoglobin 11.4(L) 13.3 - 17.7 g/dL 12/11/2023 8:38 AM CDT [facility] - CORE LAB Hematocrit 34.8(L) 40.0 - 53.0 % 12/11/2023 8:38 AM CDT [facility] - CORE LAB MCV 89 78 - 100 fL 12/11/2023 8:38 AM CDT [facility] - CORE LAB MCH 29.2 26.5 - 33.0 pg 12/11/2023 8:38 AM CDT [facility] - CORE LAB MCHC 32.8 31.5 - 36.5 g/dL 12/11/2023 8:38 AM CDT [facility]ORY - CORE LAB RDW 16.1(H) 10.0 - 15.0 % 12/11/2023 8:38 AM CDT [facility] LAB[facility]ORY - CORE LAB Platelet Count 196 150 - 450 10e3/uL 12/11/2023 8:38 AM CDT [facility] - CORE LAB Blood STRUCTURE OF LEFT UPPER LIMB / Unknown Venipuncture / Unknown 12/11/2023 8:32 AM CDT 12/11/2023 8:32 AM CDT Rizwana Tejeda APRN SENIOR TAX ANALYST LAB - BLOO D ORDERABLES [facility] LABORATORY - CORE LAB [facility] Clinics and Surgery Center [address] [place] [address] documented in this encounter Visit Diagnoses Diagnosis Preop examination- Primary Preoperative examination, unspecified 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 (H) documented in this encounter Care Teams Surgical Services Manager Relationship Specialty Start Date End Date System, Provider Not In PCP - General Clinic 08/13/23 12/21/23 Alvaro Clark MD [address] [place] [address] Assigned Surgical Provider 07/24/23 Sixto Whalen APRN SENIOR TAX ANALYST [address] [place] [address] Assigned Cancer Care Provider 10/22/23 12/21/23 documented as of this encounter
--- OUTSIDE RECORDS SUMMARY | 2024-03-12 15:41 | XMS_ITS | Encounter Summary ---
Author Organization [facility] Address [address] [place] [address] Care Team Providers Care Analysis Engineer Name Role Phone Alvaro Clark MD Unavailable System, Provider Not In Primary Care Provider Un available Sixto Whalen APRN CAD DETAILER Unavailable [phone] Encounter Details Date Type Department Care Team (Late st Contact Info) Description 12/08/2023 PRE VISIT [facility] Preoperative Assessment Center [address] 5th [place] [address] Rizwana Tejeda APRN CAD DETAILER 9[address] [place] [address] Social History Tobacco Use Types [...] st Contact Info) Description 04/08/2024 1:00 PM AIRCRAFT MANAGER Lab [address] [place] [address] Yessica Mcleod PA-C 909 [place] [address] 04/08/2024 1:30 PM AIRCRAFT MANAGER Oncology Visit [address] [place] [address] Dylan Guerin PA 9 [place], [place] [address] 04/08/2024 1:30 PM AIRCRAFT MANAGER Infusion Therapy Visit [place] [address] [place] [address] Ky Torres MD [address] [address] 05/02/2024 10:30 AM AIRCRAFT MANAGER Lab [address] [place] [address] Ky Torres MD [address] [address] 05/02/2024 11:20 AM AIRCRAFT MANAGER Appointment [facility] Imaging [address] [place] [address] Ky Torres MD 420 [facility] 480 [place] [address] 05/06/2024 9:30 AM AIRCRAFT MANAGER Lab [address] [place] [address] Ky Torres MD 420 [facility] 480 [place] [address] 05/06/2024 10:00 AM AIRCRAFT MANAGER Oncology Visit [address] [place] [address] Ky Torres MD [address] [address] 05/06/2024 10:30 AM AIRCRAFT MANAGER Infusion Therapy Visit [address] [place] [address] Ky Torres MD [address] [address] documented as of this encounter Visit Diagnoses Not on filedocumented in this encounter Care Teams Analysis Engineer Relationship Specialty Start Date End Date System, Provider Not In PCP - General Clinic 08/13/23 12/21/23 Alvaro Clark MD 420 [facility] 394 [place], [place] [address] Assigned Surgical Provider 07/24/23 Sixto Whalen APRN CNP [address] [place] [address] Assigned Cancer Care Provider 10/22/23 12/21/23 documented as of this encounter
--- OUTSIDE RECORDS SUMMARY | 2024-03-12 15:41 | XMS_ITS | Encounter Summary ---
Author Organization [facility] Address [address] [place] [address]. [place] [address] Care Team Providers Care Intermediate Manager Name Role Phone Alvaro Clark MD Unavailable System, Provider Not In Primary Care Provider Un available Ky Torres MD Unavailable [phone] Sixto Whalen APRN INVESTIGATION SPECIALIST Unavailable [phone] No Ref-Primary, Physician Primary Care Provider Yessica Mcleod PA-C Unavailable Bhavin Gardner Primary Care Provider [phone] Ky Torres MD Unavailable [phone] Encounter Details Date Type Department Care Team (Late st Contact Info) Description 09/02/2023 MyC Medical Advice [facility] [place] [address] Castañeda S, DAISY [address] [place] [address] Ky Torres MD 420 [facility] 480 [place] [address] Social History Tobacco Use Types [...] st Contact Info) Description 04/08/2024 1:00 PM PATHOLOGY TECH Lab [address] [place] [address] Yessica Mcleod PA-C 909 [place] [address] 04/08/2024 1:30 PM PATHOLOGY TECH Oncology Visit [address] [place] [address] Dylan Guerin PA 909 [place], [place] [address] 04/08/2024 1:30 PM PATHOLOGY TECH Infusion Therapy Visit [address] [place] [address] Ky Torres MD [address] [address] 05/02/2024 10:30 AM PATHOLOGY TECH Lab [address] [place] [address] Ky Torres MD [address] 8[address] 05/02/2024 11:20 AM PATHOLOGY TECH Appointment [facility] Imaging [address] [place] [address] Ky Torres MD 420 [facility] 480 [place] [address] 05/06/2024 9:30 AM PATHOLOGY TECH Lab [address] [place] [address] Ky Torres MD 420 [facility] 480 [place] [address] 05/06/2024 10:00 AM PATHOLOGY TECH Oncology Visit [address] [place] [address] Ky Torres MD 420 [facility] 480 [place] [address] 05/06/2024 10:30 AM PATHOLOGY TECH Infusion Therapy Visit [address] [place] [address] Ky Torres MD 420 [facility] 480 [place] [address] documented as of this encounter Visit Diagnoses Not on filedocumented in this encounter Care Teams Intermediate Manager Relationship Specialty Start Date End Date System, Provider Not In PCP - General Clinic 08/13/23 12/21/23 No Ref-Primary, Physician PCP - General 12/22/23 12/27/23 [address] [place] [address] PCP - General Family Medicine 12/28/23 Alvaro Clark MD 420 [facility] 394 [place] [address] Assigned Surgical Provider 07/24/23 Ky Torres MD [address] [place] [address] Assigned Cancer Care Provider 09/22/23 10/21/23 Sixto Whalen APRN CNP [address] [place] [address] 684365 Assigned Cancer Care Provider 10/22/23 12/21/23 Yessica Mcleod PA-C [address] [place] [address] Assigned Cancer Care Provider 12/22/23 01/21/24 Ky Torres MD [address] [place] [address] Assigned Cancer Care Provider 01/22/24 documented as of this encounter
--- OUTSIDE RECORDS SUMMARY | 2024-03-12 15:41 | XMS_ITS | Encounter Summary ---
Author Organization [facility] Address [address] [place] [address] Care Team Providers Care Shoe Turner Name Role Phone Alvaro Clark MD Unavailable System, Provider Not In Primary Care Provider Un available Ky Torres MD Unavailable [phone] Sixto Whalen APRN TOWER CLIMBER Unavailable [phone] No Ref-Primary, Physician Primary Care Provider Yessica Mcleod PA-C Unavailable Bhavin Gardner Primary Care Provider [phone] Ky Torres MD Unavailable [phone] Encounter Details Date Type Department Care Team (Late st Contact Info) Description 09/28/2023 [facility] Medical Advice [facility] [place] [address] [place] [address] DAISY [address] [facility] [place] [address] Charlie Almonte, RN Urothelial cancer [...] Contact Info) Description 04/08/2024 1:00 PM SPORTS UMPIRE Lab [address] [place] [address] Yessica Mcleod PA-C 909 [place], [place] [address] 04/08/2024 1:30 PM SPORTS UMPIRE Oncology Visit [address] [place] [address] Dylan Guerin PA 909 [place] [address] 04/08/2024 1:30 PM SPORTS UMPIRE Infusion Therapy Visit [address] [place] [address] Ky Torres MD [address] [address] 05/02/2024 10:30 AM SPORTS UMPIRE Lab [address] [place] [address] Ky Torres MD 420 [facility] 480 [place] [address] 05/02/2024 11:20 AM SPORTS UMPIRE Appointment [facility] Imaging [address] [place] [address] [place] [address] Ky Torres MD 420 [facility] [place] 480 [place], [place] [address] 05/06/2024 9:30 AM SPORTS UMPIRE Lab [address] [place] [address] Ky Torres MD 420 [facility] [place] [address] [place] [address] 05/06/2024 10:00 AM SPORTS UMPIRE Oncology Visit [address] [place] [address] Ky Torres MD [address] [address] 05/06/2024 10:30 AM SPORTS UMPIRE Infusion Therapy Visit [address] [place] [address] Ky Torres MD 420 [facility] [place] [address] [place] [address] documented as of this encounter Visit Diagnoses Diagnosis Urothelial cancer (H)- Primary Malignant neoplasm of other specified sites of urinary organs documented in this encounter Care Teams Shoe Turner Relationship Specialty Start Date End Date System, Provider Not In PCP - General Clinic 08/13/23 12/21/23 No Ref-Primary, Physician PCP - General 12/22/23 12/27/23 Bhavin Gardner [address] [place] [address] PCP - General Family Medicine 12/28/23 Alvaro Clark MD 420 [facility] [place] 394 [place] [address] Assigned Surgical Provider 07/24/23 Ky Torres MD [address] [address] Assigned Cancer Care Provider 09/22/23 10/21/23 Sixto Whalen APRN CNP [address] [place] [address] 715885 Assigned Cancer Care Provider 10/22/23 12/21/23 Yessica Mcleod PA-C [address] [place] [address] Assigned Cancer Care Provider 12/22/23 01/21/24 Ky Torres MD [address] [place] [address] Assigned Cancer Care Provider 01/22/24 documented as of this encounter
--- OUTSIDE RECORDS SUMMARY | 2024-03-12 15:41 | XMS_ITS | Encounter Summary ---
Author Organization [facility] Address [address] [place] [address] Care Team Providers Care Seed And Fertilizer Specialist Name Role Phone Alvaro Clark MD Unavailable System, Provider Not In Primary Care Provider Un available Sixto Whalen APRN BORING MACHINE SET UP OPERATOR JIG Unavailable Encounter Details Date Type Department Care [...] st Contact Info) Description 04/08/2024 1:00 PM CHOCOLATE MAKER Lab [facility] [address] [place] [address] Yessica Mcleod PAJannetC 909 [place], [place] [address] 04/08/2024 1:30 PM CHOCOLATE MAKER Oncology Visit [address] [facility] [place] [address] Dylan Guerin PA [address] [place] [address] 04/08/2024 1:30 PM CHOCOLATE MAKER Infusion Therapy Visit [address] [place] [address] Ky Torres MD [address] [place] [address] [facility] 480 [place] [address] 05/02/2024 10:30 AM CHOCOLATE MAKER Lab [address] [place] [address] Ky Torres MD [address] [place] [address] [facility] 480 [place], [place] [address] 05/02/2024 11:20 AM CHOCOLATE MAKER Appointment [facility] Imaging [address] [place] [address] Ky Torres MD [address] [place] [address] [facility] 480 [place] [address] 05/06/2024 9:30 AM CHOCOLATE MAKER Lab [address] [place] [address] Ky Torres MD [address] [place] [address] [facility] 480 [place], [place] [address] 05/06/2024 10:00 AM CHOCOLATE MAKER Oncology Visit [address] [place] [address] Ky Torres MD [address] [place] [address] [facility] 480 [place] [address] 05/06/2024 10:30 AM CHOCOLATE MAKER Infusion Therapy Visit [facility] [address] [place] [address] [address] [place] [address] Ky Torres MD 420 [facility] 480 [place] [address] documented as of this encounter Visit Diagnoses Not on filedocumented in this encounter Care Teams Seed And Fertilizer Specialist Relationship Specialty Start Date End Date System, Provider Not In PCP - General Clinic 08/13/23 12/21/23 Alvaro Clark MD 420 [facility] 394 [place] [address] Assigned Surgical Provider 07/24/23 Sixto Whalen APRN BORING MACHINE SET UP OPERATOR JIG [address] [place] [address] Assigned Cancer Care Provider 10/22/23 12/21/23 documented as of this encounter
--- OUTSIDE RECORDS SUMMARY | 2024-03-12 15:41 | XMS_ITS | Encounter Summary ---
Author Organization [place] Address [address] [place] [address] Care Team Providers Care Military Lawyer Name Role Phone Dalila Arrieta Unavailable [phone] System, Provider Not In Primary Care Provider Un available Alvaro Clark MD Unavailable System, Provider Not In Primary Care Provider Un available Ky Torres MD Unavailable [phone] Sixto Whalen APRN CELL CLEANER Unavailable [phone] No Ref-Primary, Physician Primary Care Provider Yessica Mcleod PA-C Unavailable Bhavin Gardner Primary Care Provider [phone] Ky Torres MD Unavailable [phone] Reason for Visit * Reason Onset Date Comments Appointment 06/08/2023 Patient needs an appointment for retention and hematuria - please call. Encounter Details Date Type Department Care Team (Late st Contact Info) Description 06/08/[address] [facility] [address] 4th [place] [address] None Appointment (Patient needs an [...] ROSALIE 8:11 AM Action Taken Records from [facility] ER received. Sent to urgent scanning to be uploaded. T COMMISSIONER * Telephone Encounter - Jacque Chan, CARLOS - 06/09/2023 3:14 PM CST Spoke with Zoraida, Patient's niece. He was seen for retention at [facility] ER. They had referred him to be seen by N[facility] Price but they declined due to being too far away. They would like to be seen at [facility].Patient scheduled for next available with Carolina Arrieta. Zoraida has a disc with imaging and ED notes. Encounter sent to Kandi Romo to try and bring in anyrecords from [facility]. Jacque Chan RN on 06/09/2023 at 3:20 PM T COMMISSIONER * Telephone Encounter - Rosalinda Hendricks - 06/08/2023 4:27 PM CST [facility] Phone Message May a detailed message [...] Message routed to: Clinics [facility] Surgery Center ([facility]): URO Travel Screening: Not Applicable T COMMISSIONER documented in this encounter Plan of Treatment Upcoming Encounters Date Type Department Care Team (Late st Contact Info) Description 04/08/2024 1:[address] COMMISSIONER Lab [facility] [address] [place] [address] [address] [place] [phone] Yessica Mcleod PA-C 909 [place], [place] [address] 04/08/2024 1:[address] COMMISSIONER Oncology Visit [address] [place] [address] Dylan Guerin PA 909 [place] [address] 04/08/2024 1:[address] COMMISSIONER Infusion Therapy Visit [address] [place] [address] Ky Torres MD 420 [facility] [address] [place] [address] 05/02/2024 10:[address] COMMISSIONER Lab [address] [place] [address] Ky Torres MD 420 [facility] [address] [place] [address] 05/02/2024 11:[address] COMMISSIONER Appointment [facility] Imaging [address] [place] [address] Ky Torres MD 420 [facility] [address] [place], [place] [address] 05/06/2024 9:[address] COMMISSIONER Lab [address] [place] [address] Ky Torres MD 420 [facility] [address] [place] [address] 05/06/2024 10:[address] COMMISSIONER Oncology Visit [facility] [address] 200 [facility] [place] [address] Ky Trores MD 420 [facility] [address] [place] [address] 05/06/2024 10:[address] COMMISSIONER Infusion Therapy Visit [facility] [address] [place] [address] [address] [place] [address] Ky Torres MD [address] [address] documented as of this encounter Visit Diagnoses Not on filedocumented in this encounter Care Teams Military Lawyer Relationship Specialty Start Date End Date System, Provider Not In PCP - General Clinic 07/20/23 07/20/23 System, Provider Not In PCP - General Clinic 08/13/23 12/21/23 No Ref-Primary, Physician PCP - General 12/22/23 12/27/23 Bhavin Gardner [address] [place] [address] PCP - General Family Medicine 12/28/23 Dalila Arrieta PA 909 [facility] Urology [place], [place] 292575 Assigned Surgical Provider 07/03/23 Alvaro Clark MD 420 [facility] [address] [place] [address] Assigned Surgical Provider 07/24/23 Ky Torres MD [address] [place] [address] Assigned Cancer Care Provider 09/22/23 10/21/23 Sixto Whalen APRN CNP [address] [place] [address] [id number] Assigned Cancer Care Provider 10/22/23 12/21/23 Yessica Mcleod PA-C [address] [place] [address] Assigned Cancer Care Provider 12/22/23 01/21/24 Ky Torres MD [address] [place] [address] Assigned Cancer Care Provider 01/22/24 documented as of this encounter
--- OUTSIDE RECORDS SUMMARY | 2024-03-12 15:41 | XMS_ITS | Encounter Summary ---
Author Organization [place] Address [address] [place] [address] Care Team Providers Care Buhr Dresser Name Role Phone Alvaro Clark MD Unavailable System, Provider Not In Primary Care Provider Un available Sixto Whalen APRN, CNP Unavailable [phone] Encounter Details Date Type Department Care Team (Late st Contact Info) Description 12/11/2023 9:00 AM CDT Lab [address] 1st [place] [address] Preop examination; Urothelial carcinoma of [...] st Contact Info) Description 04/08/2024 1:00 PM HOSE OPERATOR Lab [address] [place] [address] Yessica Mcleod PA-C 909 [place] [address] 04/08/2024 1:30 PM HOSE OPERATOR Oncology Visit [address] 200 [place] [address] Dylan Guerin PA 909 [place], [place] 113[address]85 04/08/2024 1:30 PM HOSE OPERATOR Infusion Therapy Visit [address] [place] [address] Ky Torres MD [address] 1640[address] 05/02/2024 10:30 AM HOSE OPERATOR Lab [address] [place] [address] Ky Torres MD [address] [address] 05/02/2024 11:20 AM HOSE OPERATOR Appointment [facility] Imaging [address] [place] [address] Ky Torres MD [address] [address] 05/06/2024 9:30 AM HOSE OPERATOR Lab [place] [address] [place] [address] Ky Torres MD 420 [facility] 480 [place] [address] 05/06/2024 10:00 AM HOSE OPERATOR Oncology Visit [address] [place] [address] Ky Torres MD [address] [address] 05/06/2024 10:30 AM HOSE OPERATOR Infusion Therapy Visit [address] [place] [address] Ky Torres MD [address] [address] documented as of this encounter Procedures Procedure [...] and Screen (12/11/2023 8:32 AM CDT) Pathologist [facility] ABO/RH(D) A NEG 12/10/2023 7:00 PM CDT BLOOD BANK Antibody Screen Negative Negative 12/10/2023 7:00 PM CDT BLOOD BANK SPECIMEN EXPIRATION DATE [id number] 12/10/2023 7:00 PM CDT BLOOD BANK Blood STRUCTURE OF LEFT UPPER LIMB / Unknown Venipuncture / Unknown 12/11/2023 8:32 AM CDT 12/11/2023 8:32 AM CDT Rizwana Tejeda COAL HANDLING SUPERVISOR CERNER ANALYST LAB - BLOO D BANK TEST ORDER BLOOD BANK [address] [place] [address] * Basic metabolic panel (12/11/2023 8:32 AM CDT) Pathologist [facility] Sodium 140 135 - 145 mmol/L 12/11/2023 9:04 AM CDT [facility] Potassium 4.8 3.4 - 5.3 mmol/L 12/11/2023 9:04 AM CDT [facility] Chloride 103 98 - 107 mmol/L 12/11/2023 9:04 AM CDT [facility] Carbon Dioxide (CO2) 28 22 - 29 mmol/L 12/11/2023 9:04 AM CDT [facility] Anion Gap 9 7 - 15 mmol/L 12/11/2023 9:04 AM CDT [facility] Urea Nitrogen 14.4 8.0 - 23.0 mg/dL 12/11/2023 9:04 AM CDT [facility] Creatinine 0.86 0.67 - 1.17 mg/dL 12/11/2023 9:04 AM CDT [facility] GFR Estimate >90 >60 mL/min/1.7 3m2 12/11/2023 9:04 AM CDT [facility] Comment:eGFR calculated usin 2020 CKD-EPI equation. Calcium 9.2 8.8 - 10.2 mg/dL 12/11/2023 9:04 AM T [facility] Glucose 99 70 - 99 mg/dL 12/11/2023 9:04 AM CDT [facility] Blood STRUCTURE OF LEFT UPPER LIMB / Unknown Venipuncture / Unknown 12/11/2023 8:32 AM CDT 12/11/2023 8:32 AM CDT Rizwana Tejeda COAL HANDLING SUPERVISOR CERNER ANALYST LAB - BLOO D ORDERABLES [facility] Clinics and Surgery [address] 1st [place] [address] * (ABNORMAL) CBC with platelets (12/11/2023 8:32 AM CDT) WBC Count 7.1 4.0 - 11.0 10e3/uL 12/11/2023 8:38 AM CDT [facility] RBC Count 3.91(L) 4.40 - 5.90 10e6/uL 12/11/2023 8:38 AM CDT [facility] Hemoglobin 11.4(L) 13.3 - 17.7 g/dL 12/11/2023 8:38 AM CDT [facility] Hematocrit 34.8(L) 40.0 - 53.0 % 12/11/2023 8:38 AM CDT [facility] MCV 89 78 - 100 fL 12/11/2023 8:38 AM CDT [facility] MCH 29.2 26.5 - 33.0 pg 12/11/2023 8:38 AM CDT [facility] MCHC 32.8 31.5 - 36.5 g/dL 12/11/2023 8:38 AM CDT [facility] RDW 16.1(H) 10.0 - 15.0 % 12/11/2023 8:38 AM CDT [facility] Platelet Count 196 150 - 450 10e3/uL 12/11/2023 8:38 AM CDT [facility] Blood STRUCTURE OF LEFT UPPER LIMB / Unknown Venipuncture / Unknown 12/11/2023 8:32 AM CDT 12/11/2023 8:32 AM CDT Rizwana Tejeda APRN, CNP LAB - BLOO D ORDERABLES [facility] [place] 909 [facility] 1st [place] [address] documented in this encounter Visit Diagnoses Diagnosis Preop examination Preoperative examination, unspecified 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
--- OUTSIDE RECORDS SUMMARY | 2024-03-12 15:41 | XMS_ITS | Encounter Summary ---
Author Organization [place] Address [address] [place] [address]. [place] [address] Care Team Providers Care Digital Marketing Consultant Name Role Phone Alvaro Clark MD Unavailable System, Provider Not In Primary Care Provider Un available Ky Torres MD Unavailable [phone] Sixto Whalen APRN MUSEUM DOCENT Unavailable [phone] No Ref-Primary, Physician Primary Care Provider Yessica Mcleod PA-C Unavailable Bhavin Gardner Primary Care Provider [phone] Ky Torres MD Unavailable [phone] Encounter Details Date Type Department Care Team (Late st Contact Info) Description 09/26/2023 MyC Medical Advice [facility] [place] [address]añ[address] S, [place] [address] [place] [address] Ky Torres MD 420 [facility] 480 [place] [address] Social History Tobacco Use Types [...] st Contact Info) Description 04/08/2024 1:00 PM MARKETING WRITER Lab [address] [place] [address] Yessica Mcleod PA-C 909 [place] [address] 04/08/2024 1:30 PM MARKETING WRITER Oncology Visit [address] [place] [address] Dylan Guerin PA 909 [place], [place] [address] 04/08/2024 1:30 PM MARKETING WRITER Infusion Therapy Visit [address] [place] [address] Ky Torres MD [address] [address] 05/02/2024 10:30 AM MARKETING WRITER Lab [address] [place] [address] Ky Torres MD [address] 844965 05/02/2024 11:20 AM MARKETING WRITER Appointment [facility] Imaging [address] [place] [address] Ky Torres MD 420 [facility] 480 [place] [address] 05/06/2024 9:30 AM MARKETING WRITER Lab [address] [place] [address] Ky Torres MD 420 [facility] 480 [place] [address] 05/06/2024 10:00 AM MARKETING WRITER Oncology Visit [address] [place] [address] Ky Torres MD 420 [facility] 480 [place] [address] 05/06/2024 10:30 AM MARKETING WRITER Infusion Therapy Visit [address] [place] [address] Ky Torres MD 420 [facility] 480 [place] [address] documented as of this encounter Visit Diagnoses Not on filedocumented in this encounter Care Teams Digital Marketing Consultant Relationship Specialty Start Date End Date System, Provider Not In PCP - General Clinic 08/13/23 12/21/23 No Ref-Primary, Physician PCP - General 12/22/23 12/27/23 [address] [place] [address] PCP - General Family Medicine 12/28/23 Alvaro Clark MD 420 [facility] 394 [place] [address] Assigned Surgical Provider 07/24/23 Ky Torres MD [address] [place] [address] 176955 Assigned Cancer Care Provider 09/22/23 10/21/23 Sixto Whalen APRN CNP [address] [place] [address] 978365 Assigned Cancer Care Provider 10/22/23 12/21/23 Yessica Mcleod PA-C [address] [place] [address] 230135 Assigned Cancer Care Provider 12/22/23 01/21/24 Ky Torres MD [address] [place] [address] Assigned Cancer Care Provider 01/22/24 documented as of this encounter
--- OUTSIDE RECORDS SUMMARY | 2024-03-12 15:41 | XMS_ITS | Encounter Summary ---
Author Organization [place] Address [address] [place] [address] Care Team Providers Care Clinical Informatics Strategist Name Role Phone Alvaro Clark MD Unavailable System, Provider Not In Primary Care Provider Un available Sixto Whalen APRN ROUTE INSPECTOR Unavailable [phone] Encounter Details Date Type Department Care Team (Late st Contact Info) Description 12/11/2023 PRE VISIT [facility] Preoperative Assessment Center [address] 5th [place] [address] Rizwana Tejeda APRN ROUTE INSPECTOR 909 [place] [address] Social History Tobacco Use Types [...] st Contact Info) Description 04/08/2024 1:00 PM TELEGRAPH INSTALLER Lab [address] [place] [address] Yessica Mcleod PA-C 909 [place] [address] 04/08/2024 1:30 PM TELEGRAPH INSTALLER Oncology Visit [address] [place] [address] Dylan Guerin PA 9 [place], [place] [address] 04/08/2024 1:30 PM TELEGRAPH INSTALLER Infusion Therapy Visit [place] [address] [place] [address] Ky Torres MD [address] 798975 05/02/2024 10:30 AM TELEGRAPH INSTALLER Lab [address] [place] [address] Ky Torres MD [address] [address] 05/02/2024 11:20 AM TELEGRAPH INSTALLER Appointment [facility]ty Care [facility] Imaging [address] [place] [address] Ky Torres MD 420 [facility] 480 [place] [address] 05/06/2024 9:30 AM TELEGRAPH INSTALLER Lab [address] [place] [address] Ky Torres MD 420 [facility] 480 [place] [address] 05/06/2024 10:00 AM TELEGRAPH INSTALLER Oncology Visit [address] [place] [address] Ky Torres MD [address] [address] 05/06/2024 10:30 AM TELEGRAPH INSTALLER Infusion Therapy Visit [address] [place] [address] Ky Torres MD [address] [address] documented as of this encounter Visit Diagnoses Not on filedocumented in this encounter Care Teams Clinical Informatics Strategist Relationship Specialty Start Date End Date System, Provider Not In PCP - General Clinic 08/13/23 12/21/23 Alvaro Clark MD 420 [facility] 394 [place], [place] [address]23[address] Assigned Surgical Provider 07/24/23 Sixto Whalen APRN CNP [address] [place] [address] Assigned Cancer Care Provider 10/22/23 12/21/23 documented as of this encounter
--- OUTSIDE RECORDS SUMMARY | 2024-03-12 15:41 | XMS_ITS ---
Author Organization [place] Address [address] [place] [address] Care Team Providers Care Administrative Office Specialist Name Role Phone Alvaro Clark MD Unavailable Bhavin Gardner Primary Care Provider [phone] Ky Torres MD Unavailable [phone] Transitional Care Management Status:Closed (Closed) Start date:12/25/2023 Enrollment date:12/27/2023 End date:01/08/2024 Close reason:Goals met Continued Care and Services Coordination
--- OUTSIDE RECORDS SUMMARY | 2024-03-12 15:41 | XMS_ITS | Encounter Summary ---
Author Organization [place] Address [address] [place] [address] Care Team Providers Care Traffic Operator Name Role Phone Dalila Arrieta Unavailable [phone] System, Provider Not In Primary Care Provider Un available Alvaro Clark MD Unavailable System, Provider Not In Primary Care Provider Un available Ky Torres MD Unavailable [phone] Sixto Whalen APRN SENIOR NETWORK SYSTEMS ENGINEER Unavailable [phone] No Ref-Primary, Physician Primary Care Provider Yessica Mcleod PA-C Unavailable Bhavin Gardner Primary Care Provider [phone] Ky Torres MD Unavailable [phone] Encounter Details Date Type Department Care Team (Late st Contact Info) Description 07/17/2023 [facility] Medical Advice [facility] Preoperative Assessment Center [address] 5th [place] [address] Lisa Guevara, RN Social History [...] st Contact Info) Description 04/08/2024 1:00 PM METAL BONDER Lab [address] [place] [address] Yessica Mcleod PA-C 909 [place] [address] 04/08/2024 1:30 PM METAL BONDER Oncology Visit [address] [place] [address] Dylan Guerin PA 909 [place] [address] 04/08/2024 1:30 PM METAL BONDER Infusion Therapy Visit [address] [place] [address] Ky Torres MD [address] [address] 05/02/2024 10:30 AM METAL BONDER Lab [address] [place] [address] Ky Torres MD [address] 785645 05/02/2024 11:20 AM METAL BONDER Appointment [facility] Imaging [address] [place] [address] Ky Torres MD 420 [facility] 480 [place], [place] [address] 05/06/2024 9:30 AM METAL BONDER Lab [address] [place] [address] Ky Torres MD [address] [address] 05/06/2024 10:00 AM METAL BONDER Oncology Visit [address] [place] [address] Ky Torres MD [address] [address] 05/06/2024 10:30 AM METAL BONDER Infusion Therapy Visit [address] [place] [address] Ky Torres MD [address] [address] documented as of this encounter Visit Diagnoses Not on filedocumented in this encounter Care Teams Traffic Operator Relationship Specialty Start Date End Date System, Provider Not In PCP - General Clinic 07/20/23 07/20/23 System, Provider Not In PCP - General Clinic 08/13/23 12/21/23 No Ref-Primary, Physician PCP - General 12/22/23 12/27/23 Bhavin Gardner [address] [place] [address] PCP - General Family Medicine 12/28/23 Dalila Arrieta PA [address] [place] [address] Urology [place], [place] 853545 Assigned Surgical Provider 07/03/23 Alvaro Clark MD [address] [place] [address] 371645 Assigned Surgical Provider 07/24/23 Ky Torres MD [address] [place] [address] 516655 Assigned Cancer Care Provider 09/22/23 10/21/23 Sixto Whalen APRN CNP [address] [place] [address] 976955 Assigned Cancer Care Provider 10/22/23 12/21/23 Yessica Mcleod PA-C [address] [place] [address] 799215 Assigned Cancer Care Provider 12/22/23 01/21/24 Ky Torres MD [address] [place] [address] 582145 Assigned Cancer Care Provider 01/22/24 documented as of this encounter
--- OUTSIDE RECORDS SUMMARY | 2024-03-12 15:41 | XMS_ITS | Encounter Summary ---
Author Organization [place] Address [address] [place] [address] Care Team Providers Care Geophysical Laboratory Director Name Role Phone Alvaro Clark MD Unavailable System, Provider Not In Primary Care Provider Un available Ky Torres MD Unavailable [phone] Sixto Whalen APRN TRIMMING MACHINE SET UP OPERATOR Unavailable [phone] No Ref-Primary, Physician Primary Care Provider Yessica Mcleod PA-C Unavailable Bhavin Gardner Primary Care Provider [phone] Ky Torres MD Unavailable [phone] Encounter Details Date Type Department Care Team (Late st Contact Info) Description 07/24/2023 [facility] Medical Advice [facility] Urology Clinic [address] 4th [place] [address] Diamond Conway, RN Social History [...] st Contact Info) Description 04/08/2024 1:00 PM NUCLEAR MEDICAL TECH Lab [address] [place] [address] Yessica Mcleod PA-C 909 [place] [address] 04/08/2024 1:30 PM NUCLEAR MEDICAL TECH Oncology Visit [address] [place] [address] Dylan Guerin PA 909 [place], [place] 1784[address] 04/08/2024 1:30 PM NUCLEAR MEDICAL TECH Infusion Therapy Visit [address] [place] [address] Ky Torres MD [address] [address] 05/02/2024 10:30 AM NUCLEAR MEDICAL TECH Lab [address] [place] [address] Ky Torres MD [address] [address] 05/02/2024 11:20 AM NUCLEAR MEDICAL TECH Appointment [facility] Specialty Care Center Imaging [address] [place] [address] Ky Torres MD 420 [facility] 480 [place] [address] 05/06/2024 9:30 AM NUCLEAR MEDICAL TECH Lab [facility] [place] [address] Ky Torres MD [address] [address] 05/06/2024 10:00 AM NUCLEAR MEDICAL TECH Oncology Visit [address] [place] [address] Ky Torres MD [address] 645075 05/06/2024 10:30 AM NUCLEAR MEDICAL TECH Infusion Therapy Visit [address] [place] [address] Ky Torres MD [address] [place] [address] 295205 documented as of this encounter Visit Diagnoses Not on filedocumented in this encounter Care Teams Geophysical Laboratory Director Relationship Specialty Start Date End Date System, Provider Not In PCP - General Clinic 08/13/23 12/21/23 No Ref-Primary, Physician PCP - General 12/22/23 12/27/23 Bhavin Gardner [facility] [place] [address] PCP - General Family Medicine 12/28/23 Alvaro Clark MD [address] [place] [address] 156095 Assigned Surgical Provider 07/24/23 Ky Torres MD [address] [place] [address] 017575 Assigned Cancer Care Provider 09/22/23 10/21/23 Sixto Whalen APRN CNP [address] [place] [address] 999855 Assigned Cancer Care Provider 10/22/23 12/21/23 Yessica Mcleod PA-C [address] [place] [address] 723465 Assigned Cancer Care Provider 12/22/23 01/21/24 Ky Torres MD [address] [place] [address] 278835 Assigned Cancer Care Provider 01/22/24 documented as of this encounter
--- OUTSIDE RECORDS SUMMARY | 2024-03-12 15:41 | XMS_ITS | Encounter Summary ---
Author Organization [facility] Address [address] [place] [address] Care Team Providers Care Faculty Instructor Name Role Phone Alvaro Clark MD Unavailable No Ref-Primary, Physician Primary Care Provider Yessica Mcleod PA-C Unavailable Reason for Visit * Auth/Cert Specialty Diagnoses / Procedures Referred By Virgil t Referred To Contact Surgery Diagnoses 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 (H) 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 (H) [C67.9] Procedures SD REMV BLADDER,CONTINENT DIVERSN CYSTECTOMY, pelvic node dissection WITH ILEAL NEOBLADDER CREATION possible ileal conduit Uu Periop [address] [place] [address] Referral ID Status Reason Start Date Expiration Date Visits Re quested Visits Authorized [id number] 1 1 Encounter Details Date Type Department Care Team (Late st Contact Info) Description 12/22/2023 8:00 AM CDT - 12/22/2023 1:00 PM CDT Surgery [facility] PeriOp Services [address] [place] [address] Alvaro Clark MD 420 [facility] [address] [place] [address] CYSTECTOMY, pelvic node dissection WITH [...] Dai NP - 12/25/2023 10:13 AM CDT [facility] UroDischarge Summary Patient: Oleg Richard : [...] a bowel movement in 3 days, start mytj-jho-sbqnwnm Milkof Magnesia taken twice daily until you [...] on their own within 5-10 days. - [place] will be removed at your follow up [...] your follow-up appointment. - Your nurse or piano case maker will provide written catheter care instructions for [...] a clean towel or dried with a hair-bobbin drier. - You may shower with your [...] Thursday through Thursday 8am to 4:30pm: Call [phone] with questions, requests for medication refills, or to schedule or confirm an appointment. - Nights, weekends, or holidays: call the after hours emergency pager - [phone] and tell the back up machine operator I would like to page the Urology Resident feed preparation operator. Typically, the on-call provider should return your call within 30 minutes. Please page the on-call provider again if you haven't been contacted as expected. Rarely, the on-call provider will be unable to promptly return a call due to a hospital emergency. If you have paged twice and are still not contacted, ask the hospital back up machine operator to page the urology CHIEF-RESIDENT feed preparation operator. - Please note that due to prescribing [...] to reach the Urology resident or PA feed preparation operator - [phone] to reach the Urology resident or PA feed preparation operator - Weeknights and weekends December 25, 2023 [...] Noe Erickson MD, MPH Urology Resident, PGY-2 PUBLIC OPINION SURVEY TAKER medications: Prior to Admission medications Medication Sig [...] questions or concerns regarding this patient. Note senior underwriter may be unavailable. To access [facility] from intranet: under Applications --> Business Applications select [employer] and search Urology Adult & Pediatric/[facility]. Please note that any question about a urology inpatient, [place] or [place], should go to job code [id number]. * [...] Noe Erickson MD, MPH Urology Resident, PGY-2 PUBLIC OPINION SURVEY TAKER medications: Prior to Admission medications Medication Sig Start Date End Date Taking? Authorizing Provider acetaminophen-caffeine (EXCEDRIN TENSION HEADACHE) 500-65 MG TABS Take 2 tablets by mouth every 6 hours as needed for mild pain (PRN HEADACHE) Yes Reported, Patient diphenhydrAMINE HCl (BENADRYL ALLERGY PO) Take 1 tablet by mouth as needed Yes Reported, Patient Contacting the urology team: Please see [facility] [employer] and page on-call clinician with any questions or concerns regarding this patient. Note senior underwriter may be unavailable. To access [facility] from intranet: under Applications --> Business Applications select [employer] and search Urology Adult & Pediatric/[facility]. Please note that any question about a urology inpatient, [place] or [place], should go to job code [id number]. * [...] identified Bed Mobility Bed Mobility supine-sit;sit-supine Supine-Sit [place] (Bed Mobility) verbal cues Sit-Supine [place] (Bed Mobility) verbal cues Transfers Transfers sit-stand transfer Sit-Stand Transfer Sit-Stand [place] (Transfers) supervision Balance Balance Assessment no deficits identified Activities of Daily Living BADL Assessment/Intervention bathing;upper body dressing;lower body dressing;clothing fastener management;grooming;toileting Bathing Assessment/Intervention [place] Level (Bathing) set up Comment, (Bathing) Per clinical judgement Upper Body Dressing Assessment/Training Comment, (Upper Body Dressing) Per clinical judgement [place] Level (Upper Body Dressing) independent Lower Body Dressing Assessment/Training [place] Level (Lower Body Dressing) modified independence Clothes Fastener Management [place] Level (Clothes Fastener Management) independent Grooming Assessment/Training [place] Level (Grooming) supervision Toileting [place] Level (Toileting) supervision Clinical Impression Criteria for [...] Evaluation Time OT Eval, Low Complexity Minutes (51236) 10 OT Goals Therapy Frequency (OT) One [...] Management Self-Care/Home Mgmt/ADL, Compensatory, Meal Prep Minutes (00572) 12 Symptoms Noted During/After Treatment (Meal Preparation/Planning Training) increased pain Treatment Detail/Skilled Intervention OT: Facilitated ADL for increased IND within precautions. Pt educated on abdominal precautions, handout provided. Pt completed log roll technique for bed mobility with verbal cues, progressed to mod IND. Reviewed with pt LB dressing within precautions, pt unable to demo figure four, reported he is familiar with using ocular pathologist tool for LB dressing and has slip on shoes he wears. Educated pt on IADLs with 10 # weight restriction. Pt demo'd mod IND mobility in room once set up with IV pole due to multiple lines, completed ADLS SBA and progressed to mod IND-IND. Therapeutic Activities Therapeutic Activity Minutes (54620) 10 Symptoms noted during/after treatment fatigue Treatment [...] MD. Camilla Larkin MD, PGY-2 Urology Resident PUBLIC OPINION SURVEY TAKER medications: Prior to Admission medications Medication Sig Start Date End Date Taking? Authorizing Provider acetaminophen-caffeine (EXCEDRIN TENSION HEADACHE) 500-65 MG TABS Take 2 tablets by mouth every 6 hours as needed for mild pain (PRN HEADACHE) Yes Reported, Patient diphenhydrAMINE HCl (BENADRYL ALLERGY PO) Take 1 tablet by mouth as needed Yes Reported, Patient Contacting the urology team: Please see [facility] and page on-call clinician with any questions or concerns regarding this patient. Note senior underwriter may be unavailable. To access [facility] from intranet: under Applications --> Business Applications select [facility] [employer] and search Urology Adult & Pediatric/[facility]. Please note that any question about a urology inpatient, [place] or [place], should go to job code [id number]. * [...] cath with red output. BS+, passing flatus. [place] urge sat Diet: Clears. Skin/Incisions/Drains: Midline abd [...] x1 & On-Q 7 ml dual cath. Aprry with red/pink AUOP, urology irrigated this am. [...] Nicholas RN - 12/24/2023 3:41 AM CDT [id number] Status: OD#1 s/p cystectomy with ileal neobladder [...] and pt belching. thanks. shobha ho rn [phone] * Plan of Care - Ana Thomason OTR - 12/23/2023 11:53 AM CDT Occupational Therapy Discharge Summary Reason for therapy discharge: All goals and outcomes met, no further needs identified. Progress towards therapy goal(s). See goals on Care Plan in [facility] electronic health record for goal details. Goals [...] Date: 12/22/2023 Attending Surgeon: Alvaro Clark MD Greige Mender(s): Alberto Tejeda M.D.-PGY-5 Preoperative Diagnosis(es): High grade [...] in the usual sterile fashion. A #16 Martiniquais Parry catheter was placed in the bladder. [...] and vein from the lymph node of [place] proximally to join up with the proximal [...] sutures. We then performed a standard stapled rxzt-sn-lxvt functional end-to-end small bowel anastomosis by firing a JORGE 60 stapler along the antimesenteric border and closed the enterotomies for the anastomosis using a TA 60 stapler. The crossing staple lines were reinforced using 3-0 silk suture in a gtgoid-zc-rjqfk fashion. A similar suture was done at [...] away from thepouch. We placed a #19 Martiniquais Brandon drain into the plane between the [...] Tejeda MD - 12/22/2023 2:24 PM CDT [facility] Brief Operative Note Pre-operative diagnosis: [...] vesicles Tissue Urinary Bladder SURGICAL PATHOLOGY EXAM Alavro Clark MD 12/22/2023 10:24 AM 5 : [...] Implant Name Type Inv. Item Serial No. Zigzag Appliquer Lot No. LRB No. Used Action [facility] DIRECT[facility] DIVERSION [id number] - [id number] [facility] DIRECT[facility] DIVERSION [id number] [facility] [id number] N/A 1 Implanted Fluids: 3200 crystalloid 250 albumin Admit Urology Urology to irrigate AM and PM Neobladder pathway Alberto Tejeda MD Urology PGY-5 * Pharmacy-Admission Medication History - Uriel Kaba - 12/15/2023 12:03 PM CDT Dry Cleaning Attendant Pre-operative Admission Medication History Admission medication history [...] 09/14/23 per dispense history. Changes made to PUBLIC OPINION SURVEY TAKER medication list: Added: None Deleted: None Changed: None Allergies reviewed with patient and updates made in EHR: yes Medication History Completed By: Uriel Kaba 12/15/2023 12:03 PM PUBLIC OPINION SURVEY TAKER Med List Medication Sig Last Dose acetaminophen-caffeine (EXCEDRIN TENSION HEADACHE) 500-65 MG TABS Take 2 tablets by mouth every 6 hours as needed for mild pain (PRN HEADACHE) diphenhydrAMINE HCl (BENADRYL ALLERGY PO) Take 1 tablet by mouth as needed Associated attestation - Nabeel Mcghee RPH - 12/15/2023 12:17 PM CDT I was not present during the product managent intern's interview, but I agree with the documentation. Nabeel Mcghee, Pharm.D, [facility] December 15, 2023 documented in this encounter Plan of Treatment Upcoming Encounters Date Type Department Care Team (Late st Contact Info) Description 04/08/2024 1:00 PM KOSHER SEALER Lab [address] [place] [phone] Yessica Mcleod PA-C [address] [place] [address] 04/08/2024 1:30 PM KOSHER SEALER Oncology Visit [address] [place] [phone] Dylan Guerin PA [address] [place], [place] [address] 04/08/2024 1:30 PM KOSHER SEALER Infusion Therapy Visit [address] [place] [phone] Ky Torres MD [address] [id number] 05/02/2024 10:30 AM [facility] Lab [address] [place] [phone] Ky Torres MD 420 [facility] [address] [place], [place] [phone] 05/02/2024 11:20 AM KOSHER SEALER Appointment [facility] Imaging [address] [place] [phone] Ky Torres MD 420 [facility] [address] [place] [address] 05/06/2024 9:30 AM [facility] SEAL[facility] Lab [address] [place] [address] Ky Torres MD 420 [facility] [address] [place] [address] 05/06/2024 10:00 AM KOSHER SEALER Oncology Visit [address] [place] [address] Ky Torres MD 420 [facility] [address] [place] [address] 05/06/2024 10:30 AM KOSHER SEALER Infusion Therapy Visit [address] [place] [address] Ky Torres MD 420 [facility] [address] [place] [address] documented as of this encounter Procedures Procedure [...] - BODY FLUIDS OR DERABLES [facility] 500 [facility], [address] [address] * (ABNORMAL) CBC with platelets (12/25/2023 6:50 AM CDT) [facility] WBC Count 9.0 4.0 - 11.0 [...] LAB - BLOOD ORDERABL ES [facility] [place] [facility] 500 [facility], Room [address] [place] [address] * (ABNORMAL) Basic metabolic panel (12/25/2023 [...] LAB - BLOOD ORDERABL ES [facility] 500 [facility] Unit [facility], Room [address] * Phosphorus (12/24/2023 6:16 AM CDT) Pathologist [facility] Phosphorus 2.9 2.5 - 4.5 mg/dL 12/24/2023 7:26 AM CDT [facility] Blood (Portacath) IVAD (Port) / Unknown 12/24/2023 6:16 AM CDT 12/24/2023 6:41 AM CDT Alberto Tejeda MD LAB - BLOOD ORDERABL ES Performing Organization Address City/[facility]/ZIP Co de Phone Number [facility] 500 [facility], [address] * Magnesium (12/24/2023 6:16 AM CDT) Pathologist [facility] Magnesium 1.8 1.7 - 2.3 mg/dL 12/24/2023 10:59 AM CDT [facility] Blood (Portacath) IVAD (Port) / Unknown 12/24/2023 6:16 AM CDT 12/24/2023 6:41 AM CDT Alberto Tejeda MD LAB - BLOOD ORDERABL ES [facility] 500 [facility], [address] * (ABNORMAL) CBC with platelets (12/24/2023 [...] LAB - BLOOD ORDERABL ES [facility] 500 [facility], Room [address] [place] [address] * (ABNORMAL) Basic metabolic panel [...] LAB - BLOOD ORDERABL ES [facility] [facility] 500 [facility], [address] [place] [address] * (ABNORMAL) CBC with platelets [...] LAB - BLOOD ORDERABL ES [facility] [facility] [address] [facility], Room [address] [place] [address] * (ABNORMAL) Basic metabolic panel [...] LAB - BLOOD ORDERABL ES [facility] [address] [facility], [address] [place] [address] * (ABNORMAL) Glucose by meter (12/23/2023 6:42 AM CDT) GLUCOSE BY METER POCT 118(H) 70 - 99 mg/dL 12/23/2023 6:49 AM CDT [facility] POC Blood, Capillary BLOOD SPECIMEN / Unknown 12/23/2023 6:42 AM CDT 12/23/2023 6:49 AM CDT Alvaro Clark MD LAB - BEAKER POCT Performing Organization Address City/[facility]/ZIP Co de Phone Number [facility] POC [facility] 500 [facility], [address] [place] [address] * Platelet count (12/22/2023 9:55 PM CDT) Platelet Count 179 150 - 450 10e3/uL 12/22/2023 10:12 PM CDT [facility] Blood STRUCTURE OF RIGHT HAND / Unknown IVAD (Port) / Unknown 12/22/2023 9:55 PM CDT 12/22/2023 10:04 PM CDT Alberto Tejeda MD LAB - BLOOD ORDERABL ES [facility] 500 [facility], [address] [place] [address] * XR Abdomen Port 1 [...] Case Report Surgical Pathology Report ? Case: [id number] ? Authorizing Provider: ??Alvaro Clark MD ?Collected: [...] 9:15 AM Intra op performed at:[facility] LAB[facility]AT[facility], [facility] Core Lab, 500 [facility], Room [address] [address] Intra-op Dx verbally delivered to Dr. Amber Tanner(2). Ureter, Right, Right distal ureteral margin: BFS1: Negative for malignancy John Carey MD on 12/22/2023 at 9:27 AM Intra op performed at:[facility], [facility] Core Lab, [address] [facility], [address] [address] Intra-op Dx verbally delivered to Dr. Amber Segura(3). Urethra, urethral margin: CFS1: - No evidence of malignancy Tracie Gonzalez MD on 12/22/2023 at 10:41 AM Intra op performed at: LABORATORY, [facility] Core Lab, 500 [facility], [address] [address] Intra-op Dx verbally delivered to Dr. Clark [...] reveal no mass deposits or lymph nodes. Electronic Equipment Repairmen sections are submitted. Gross photography is taken. D1-urethral margin, en face D2-right ureter margin, en face D3-left ureter margin, en face D4-lesion to right ureteral orifice D5-lesion to left ureteral orifice F2-A49-nfkdvq from dome to trigone R87-mmiery to seminal vesicles S89-adkre lateral wall Z42-iafscyqu bladder wall M31-xqku I49-H38-twkxt prostatic apex C39-S89-nxpo prostatic apex D23-mid prostate, right anterior D24-mid prostate, left posterior D25-mid prostate, left anterior D26-mid prostate, left posterior W53-kuoj prostate, right anterior R79-ydyg prostate, right posterior G96-unsq prostate, mid Z90-phnn prostate, left anterior E67-npjk prostate, left posterior E(5). Lymph Node(s), Pelvis, [...] possible lymph nodes E2-intact possible lymph node Y4-N7-fsrywdak possible lymph node Z2-A8-cjjmushk possible lymph node L3-F53-zqgswzyw sectioned possible lymph node F(6). Lymph Node(s), [...] possible lymph nodes F2-bisected possible lymph node W9-L9-nyzdqakg sectioned possible lymph node G(7). Ureter, Left, [...] Description Microscopic description is performed 6:31 PM [facility] Comment:This is an appended report. These results have been appended to a previously preliminary verified report. MCRS Yes(A) N/A 6:31 PM [facility] Comment:This is an appended report. These results have been appended to a previously preliminary verified report. Performing Labs The technical component of this testing was completed at [facility]. Stain controls for all [...] [facility] Specialty Lab 500 [facility] [address], [address] [place] [address], [facility] 500 [facility], [address] [place] [address], [facility] * (ABNORMAL) Glucose by meter (12/22/2023 6:55 AM CDT) GLUCOSE BY METER POCT 101(H) 70 - 99 mg/dL 12/22/2023 7:01 AM CDT [facility] POC Blood, Capillary BLOOD SPECIMEN / Unknown 12/22/2023 6:55 AM CDT 12/22/2023 7:01 AM CDT Alvaro Clark MD LAB - BEAKER POCT [facility] POC [facility] 500 [facility] [address], [address] [place] [address] * Adult Type and Screen (12/22/2023 6:47 AM CDT) ABO/RH(D) A NEG 12/22/2023 6:16 AM CDT [facility] Antibody Screen Negative Negative 12/22/2023 6:16 AM CDT [facility] SPECIMEN EXPIRATION DATE [id number] 12/22/2023 6:16 AM CDT [facility] Blood STRUCTURE OF RIGHT HAND / Unknown Venipuncture / Unknown 12/22/2023 6:47 AM CDT 12/22/2023 6:56 AM CDT Alvaro Clark MD LAB - BLOOD BANK LICHA T ORDER Performing Organization Address [facility] Co de Phone Number BLOOD BANK [address] [place] [address] documented in this encounter Visit [...] analgesic side effects. Hold while on IV PL SQL DEVELOPER or with regular IV opioid dosing. $Given [...] analgesic side effects. Hold while on IV PL SQL DEVELOPER or with regular IV opioid dosing. $Given [...] 750 mL in ON-Q C-Bloc select flow ([id number] holds 600-750 mL) dual cath disposable pump [...] by the FDA (see reference link): Yes 9334 ($Given - Provider: Radha Merida RN) alvimopan [...] by the FDA (see reference link): Yes 634 ($Given - Provider: Kelly Nicholas RN) 0832 [...] CARLOS)2038 ($Given - Provider: Isaac Hutchins, CARLOS) 0702 [...] 750 mL in ON-Q C-Bloc select flow ([id number] holds 600-750 mL) dual cath disposable pump [...] used when administering multiple Central Nervous System (DEVELOPER DESIGNER) depressing meds within a short time frame. [...] analgesic side effects. Hold while on IV PL SQL DEVELOPER or with regular IV opioid dosing. 0435 [...] analgesic side effects. Hold while on IV PL SQL DEVELOPER or with regular IV opioid dosing. 0435 [...] analgesic side effects. Hold while on IV PL SQL DEVELOPER or with regular IV opioid dosing. Or oxyCODONE IR (ROXICODONE) tablet 10 mgJump to med 10 mg, Oral, EVERY 4 HOURS PRN, severe pain, Starting on Thu12/22/23 at 1627, Hold oral PRN dose for analgesic side effects. Notify provider to assess for uncontrolled pain or analgesic side effects. Hold while on IV PL SQL DEVELOPER or with regular IV opioid dosing. Group [...] provider. documented in this encounter Care Teams Faculty Instructor Relationship Specialty Start Date End Date No Ref-Primary, Physician PCP - General 12/22/23 12/27/23 Alvaro Clark MD [address] [place] [phone] Assigned Surgical Provider 07/24/23 Yessica Mcleod PA-C [address] [place] [address] [phone] Assigned Cancer Care Provider 12/22/23 01/21/24 documented as of this encounter
--- OUTSIDE RECORDS SUMMARY | 2024-03-12 15:41 | XMS_ITS | Encounter Summary ---
Author Organization [facility] Address [address] [place] [address] Care Team Providers Care Automobile Service Writer Name Role Phone Alvaro Clark MD Unavailable No Ref-Primary, Physician Primary Care Provider Yessica Mcleod PA-C Unavailable Reason for Visit * Auth/Cert Specialty Diagnoses / Procedures Referred By Contkatlyn t Referred To Contact Surgery Diagnoses 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 (H) 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 (H) [C67.9] Procedures DE REMV BLADDER,CONTINENT DIVERSN CYSTECTOMY, pelvic node dissection WITH ILEAL NEOBLADDER CREATION possible ileal conduit Uu Periop [address] [place] [address] Referral ID Status Reason Start Date Expiration Date Visits Re quested Visits Authorized [id number] 1 1 Encounter Details Date Type Department Care Team (Late st Contact Info) Description 12/22/2023 7:48 AM CDT Anesthesia Event [facility] PeriOp Services [address] [place] [address] Forest Olson MD [address] [place], [place] [address] Anesthesia Record Procedure Summary Procedure Name Responsible Anesthesiologist Anesthesia Start Time Anesthesia Stop Time CYSTECTOMY, pelvic node dissection WITH ILEAL NEOBLADDER CREATION (Abdomen) Forest Olson MD 12/22/23 0748 12/22/23 1437 Events Date Time Event Comment 12/22/2023 0654 MIRROR SILVERER Ready for Procedure 0747 0748 An Start [...] recorded are pre- induction. Nessa Pereira APRN MIRROR SILVERER 0757 An Induction 0802 An Intubation 0810 Anesthesia Ready for Procedu re 1428 AN Extubation All extubation criteria met prior to removal. 1430 an stop data 1437 An Stop Electronically signed by Nessa Pereira APRN MIRROR SILVERER on December 22, 2023 2:37 PM Meds [...] Single 08/28/23; 09; Right; Chest wall; Yes; [id number]; Yes; Yes; 6 Fr; 21 cm; SVC/RA [...] Cowan 2; Grade View: 1; Placement Person: MIRROR SILVERER; Attempts: 1 12/22/23 0802 by Nessa Pereira APRN MIRROR SILVERER 12/22/23 1428 by Nessa Pereira APRN MIRROR SILVERER Peripheral IV 12/22/23; 0804; 18 G ; [...] Drain 12/22/23; 1408; RLQ ; Bulb; 19 Telugu 12/22/23 1408 by Natasha Alejo RN 12/25/23 [...] Start/Stop Times: 12/22/2023 8:02 AM Staff - MIRROR SILVERER: Nessa Pereira APRN MIRROR SILVERER Performed By: CRNAIndications and Patient Condition Indications [...] P in preparation for Procedure Information Case: [id number] Date/Time: 12/22/23 0800 Procedure: CYSTECTOMY, pelvic node [...] TUMOR; Surgeon: Alvaro Clark MD; Location: [facility] Prior to Admission Medications No current [...] Resource Strain: High Risk (06/01/2021) Received from [facility] Financial Resource Strain ??? Difficulty of Paying Living Expenses: Not on file ??? Difficulty of Paying Living Expenses: Not on file Food Insecurity: Not on file Transportation Needs: Not on file Physical Activity: Not on file Stress: Not on file Social Connections: Unknown (08/15/2021) Received from [facility], [facility] Social Connections ??? 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 Denies any exertional [...] Total time: 24 minutes Rizwana Tejeda APRN [facility] Preoperative Assessment Center [facility] Physical Exam [...] and realistic alternatives discussed. Questions answered and patient/merchandiser retail representative(s) expressed understanding. - Discussed: - Discussed [...] st Contact Info) Description 04/08/2024 1:00 PM ELECTRIC SCOOP OPERATOR Lab [address] [place] [phone] Yessica Mcleod PA-C [address] [place], [place] [address] 04/08/2024 1:30 PM ELECTRIC SCOOP OPERATOR Oncology Visit [address] [place] [address] Dylan Guerin PA [address] [place] [address] 04/08/2024 1:30 PM ELECTRIC SCOOP OPERATOR Infusion Therapy Visit [address] [place] [address] Ky Torres MD [address] [address] 05/02/2024 10:30 AM ELECTRIC SCOOP OPERATOR Lab [address] [place] [address] Ky Torres MD [address] [address] 05/02/2024 11:20 AM ELECTRIC SCOOP OPERATOR Appointment [facility] Imaging [address] [place] [address] Ky Torres MD [address] 7488[address] 05/06/2024 9:30 AM ELECTRIC SCOOP OPERATOR Lab [address] [place] [address] Ky Torres MD [address] [place] [address] [facility] [address] [place] [address] 05/06/2024 10:00 AM ELECTRIC SCOOP OPERATOR Oncology Visit [address] [place] [address] Ky Torres MD [address] [address] 05/06/2024 10:30 AM ELECTRIC SCOOP OPERATOR Infusion Therapy Visit [address] [place] [address] Ky Torres MD [address] [place] [address] [address] documented as of this encounter Procedures Procedure Name Priority Date/Time Associated Diagnosis Comments ANE AIRWAY ETT PERFORMABLE Routine 12/22/2023 8:02 AM CDT documented in this encounter Results * ANE AIRWAY ETT PERFORMABLE (12/22/2023 8:02 AM CDT) Narrative Nessa Pereira APRN MIRROR SILVERER - 12/22/2023 8:02 AM CDT Nessa Pereira APRN MIRROR SILVERER ? 12/22/2023 ??8:22 AM Airway ? Patient location during procedure: OR ? Procedure Start/Stop Times: 12/22/2023 8:02 AM Staff - ? MIRROR SILVERER: Nessa Pereira APRN MIRROR SILVERER ? Performed By: CRNAIndications and Patient Condition [...] Time: 12/22/2023 8:02 AM Forest Olson MD DE ANESTHESIA documented in this encounter Visit Diagnoses [...] mg documented in this encounter Care Teams Automobile Service Writer Relationship Specialty Start Date End Date No Ref-Primary, Physician PCP - General 12/22/23 12/27/23 Alvaro Clark MD [address] [address] Assigned Surgical Provider 07/24/23 Yessica Mcleod PA-C [address] [place] [address] Assigned Cancer Care Provider 12/22/23 01/21/24 documented as of this encounter
--- OUTSIDE RECORDS SUMMARY | 2024-03-12 15:41 | XMS_ITS | Encounter Summary ---
Author Organization [place] Address [address] [place] [address]. [place] [address] Care Team Providers Care Agronomy Location Manager Name Role Phone Alvaro Clark MD Unavailable System, Provider Not In Primary Care Provider Un available Sixto Whalen APRN REHAB RN Unavailable [phone] No Ref-Primary, Physician Primary Care Provider Yessica Mcleod PA-C Unavailable Bhavin Gardner Primary Care Provider [phone] Ky Torres MD Unavailable [phone] Encounter Details Date Type Department Care Team (Late st Contact Info) Description 11/17/2023 MyC Medical Advice [facility] [address], [address] [place] [address] Sixto Whalen APRN REHAB RN [address] [place] [address] Social History Tobacco Use Types Packs/Day Years [...] st Contact Info) Description 04/08/2024 1:00 PM REGIONAL PRODUCTION MANAGER Lab [address] [place] [address] Yessica Mcleod PA-C [address] [place], [place] [address] 04/08/2024 1:30 PM REGIONAL PRODUCTION MANAGER Oncology Visit [address] [place] [address] Dylan Guerin PA [address] [place], [place] [address] 04/08/2024 1:30 PM REGIONAL PRODUCTION MANAGER Infusion Therapy Visit [address] [place] [address] Ky Torres MD [address] [address] 05/02/2024 10:30 AM REGIONAL PRODUCTION MANAGER Lab [address] [place] [address] Ky Torres MD 420 [facility] [address] [place] [address] 05/02/2024 11:20 AM REGIONAL PRODUCTION MANAGER Appointment [facility] Care Center Imaging [address] [place] [address] Ky Torres MD 420 [facility] [address] [place] [address] 05/06/2024 9:30 AM REGIONAL PRODUCTION MANAGER Lab [address] [place] [address] Ky Torres MD 420 [facility] [address] [place] [address] 05/06/2024 10:00 AM REGIONAL PRODUCTION MANAGER Oncology Visit [address] [place] [address] Ky Torres MD [address] [address] 05/06/2024 10:30 AM REGIONAL PRODUCTION MANAGER Infusion Therapy Visit [address] [place] [address] Ky Torres MD 420 [facility] [address] [place] [address] documented as of this encounter Visit Diagnoses Not on filedocumented in this encounter Care Teams Agronomy Location Manager Relationship Specialty Start Date End Date System, Provider Not In PCP - General Clinic 08/13/23 12/21/23 No Ref-Primary, Physician PCP - General 12/22/23 12/27/23 Bhavin Gardner [address] [place] [address] PCP - General Family Medicine 12/28/23 Alvaro Clark MD 420 [facility] [address] [place] [address] Assigned Surgical Provider 07/24/23 Sixto Whalen APRN REHAB RN [address] [place] [address] Assigned Cancer Care Provider 10/22/23 12/21/23 Yessica Mcleod PA-C [address] [place] [address] Assigned Cancer Care Provider 12/22/23 01/21/24 Ky Torres MD [address] [place] [address]305 Assigned Cancer Care Provider 01/22/24 documented as of this encounter
--- OUTSIDE RECORDS SUMMARY | 2024-03-12 15:41 | XMS_ITS | Encounter Summary ---
Author Organization [place] Address [address] [place] [address] Care Team Providers Care Photographer Name Role Phone Alvaro Clark MD Unavailable System, Provider Not In Primary Care Provider Un available Sixto Whalen APRN SOLAR HOT WATER INSTALLER Unavailable [phone] No Ref-Primary, Physician Primary Care Provider Yessica Mcleod PA-C Unavailable Bhavin Gardner Primary Care Provider [phone] Ky Torres MD Unavailable [phone] Encounter Details Date Type Department Care Team (Late st Contact Info) Description 12/01/2023 MyC Medical Advice [address] [facility] [place] [address] Sabra Wilcox Social History Tobacco [...] st Contact Info) Description 04/08/2024 1:00 PM ROTARY DUMP OPERATOR Lab [facility] [address] [place] [address] Yessica Mcleod PA-C 9[address] [place], [place] 3[address] 04/08/2024 1:30 PM ROTARY DUMP OPERATOR Oncology Visit [address] [place] [address] Dylan Guerin PA [address] [place], [place] [address] 04/08/2024 1:30 PM ROTARY DUMP OPERATOR Infusion Therapy Visit [address] [place] [address] Ky Torres MD [address] [address] 05/02/2024 10:30 AM ROTARY DUMP OPERATOR Lab [place] [address] [place] [address] Ky Torres MD [address] [address] 05/02/2024 11:20 AM ROTARY DUMP OPERATOR Appointment [facility] Imaging [address] [place] [address] Ky Torres MD [address] [address] 05/06/2024 9:30 AM ROTARY DUMP OPERATOR Lab [place] [address] [place] [address] Ky Torres MD 420 [facility] 480 [place] [address] 05/06/2024 10:00 AM ROTARY DUMP OPERATOR Oncology Visit [address] [place] [address] Ky Torres MD 420 [facility] [address] [place] [address] 05/06/2024 10:30 AM ROTARY DUMP OPERATOR Infusion Therapy Visit [address] [place] [address] Ky Torres MD [address] [address] documented as of this encounter Visit Diagnoses Not on filedocumented in this encounter Care Teams Photographer Relationship Specialty Start Date End Date System, Provider Not In PCP - General Clinic 08/13/23 12/21/23 No Ref-Primary, Physician PCP - General 12/22/23 12/27/23 Bhavin Gardner [facility] [place] [address] PCP - General Family Medicine 12/28/23 Alvaro Clark MD [address] [address] Assigned Surgical Provider 07/24/23 Sixto Whalen APRN CNP [address] [place] [address] Assigned Cancer Care Provider 10/22/23 12/21/23 Yessica Mcleod PA-C [address] [place] [address] Assigned Cancer Care Provider 12/22/23 01/21/24 Ky Torres MD [address] [place] [address] Assigned Cancer Care Provider 01/22/24 documented as of this encounter
--- OUTSIDE RECORDS SUMMARY | 2024-03-12 15:41 | XMS_ITS | Encounter Summary ---
Author Organization [facility] Address [address] [place] [address] Care Team Providers Care Electrical Maintenance Technician Name Role Phone Alvaro Clark MD Unavailable System, Provider Not In Primary Care Provider Un available Sixto Whalen APRN GREASE MAKER HEAD Unavailable [phone] Reason for Visit * Reason Onset Date Comments Schedule Surgery 11/26/2023 Encounter Details Date Type Department Care Team (Late st Contact Info) Description 11/26/2023 Telephone [facility] [address] 4th [place] [address] Alvaro Clark MD [address] [facility] [address] [place] [address] Schedule Surgery Social History Tobacco [...] Boswell RN - 12/18/2023 9:57 AM CDT Garbage Collector called patient this morning to complete Pre-Op Teaching for surgery scheduled with Dr. Clark on 12/22/2023. Garbage Collector discussed that he did not receive surgical packet in mail (per note from Jennifer Griggs on 11/26/23-mailed per USPS on 11/26/23). Garbage Collector discussed that Pre-Op Teaching was completed on 12/11/23. -Pre Op exam completed on 12/11/23 with Rizwana Tejeda APRN CNP. -Preparing for Surgery Instructions reviewed with patient per Marysol Hunter RN (Patient Instruction Note). Patient confirms he received copy of these instructions. Garbage Collector reviewed Preparing for Surgery Instructions with Patient: [...] visit is not scheduled at this time. Garbage Collector will send message to scheduling department to schedule post op visit. Patient will talk with Dr. Clark morning of surgery regarding questions regarding plan for voidingafter surgery (Neobladder or Ileal Conduit). Garbage Collector instructed patient to contact our office if any further questions or concerns prior to scheduled surgery on 12/22/2023. Evette Boswell RN, BSN, OCN on 12/18/2023 at 10:13 AM * Telephone Encounter - Indu Jennifer - 11/26/2023 11:21 AM CDT Called patient to discuss surgery scheduling with Dr. Clark. Spoke with patient and scheduled surgery with Dr. Clark for 12/22/23 at [place]. H&P scheduled with PAC scheduled for 12/08/23 at 9:00 AM. Patient is aware they will get their arrival time for surgery at PAC appointment. Per provider, 10 or 21 days postop for postop visit, stent removal and/or cath removal based on thetype of diversion patient still undecided. Garbage Collector will mail surgery packet via USPS on 11/26/23. The patient has no further questions regarding surgery at this time. Patient has writers call back number [phone]. Jennifer Griggs on 11/26/2023 at 11:22 AM documented in this encounter Plan of Treatment Upcoming Encounters Date Type Department Care Team (Late st Contact Info) Description 04/08/2024 1:00 PM SKEIN WASHER Lab [address] [place] [address] Yessica Mcleod PA-C [address] [place] [address] 04/08/2024 1:30 PM SKEIN WASHER Oncology Visit [place] [address] [place] [address] [place] [address] Dylan Guerin PA [address] [place] [address] 04/08/2024 1:30 PM SKEIN WASHER Infusion Therapy Visit [place] [address] [place] [address] [place] [address] Ky Torres MD [address] [place] [address] 05/02/2024 10:30 AM SKEIN WASHER Lab [address] [place] [address] Ky Torres MD [address] [facility] [address] [place] [address] 05/02/2024 11:20 AM [address]KEIN WASHER Appoint[address] [facility] Center Imaging [address] [place] [address] [place] [address] Ky Torres MD [address] [facility] [address] [place], [place] [address] 05/06/2024 9:30 AM SKEIN WASHER Lab [address] [place] [address] Ky Torres MD [address] [place] [address] [address] 05/06/2024 10:00 AM SKEIN WASHER Oncology Visit [address] [place] [address] Ky Torres MD [address] [place] [address] [address] 05/06/2024 10:30 AM SKEIN WASHER Infusion Therapy Visit [address] [place] [address] Ky Torres MD [address] [facility] [address] [place] [address] documented as of this encounter Visit Diagnoses Not on filedocumented in this encounter Care Teams Electrical Maintenance Technician Relationship Specialty Start Date End Date System, Provider Not In PCP - General Clinic 08/13/23 12/21/23 Alvaro Clark MD [address] [address] Assigned Surgical Provider 07/24/23 Sixto Whalen APRN CNP [address] [place] [address] Assigned Cancer Care Provider 10/22/23 12/21/23 documented as of this encounter
--- OUTSIDE RECORDS SUMMARY | 2024-03-12 15:41 | XMS_ITS | Encounter Summary ---
Author Organization [place] Address [address] [place] [address] Care Team Providers Care [employer] Name Role Phone Dalila Arrieta Unavailable [phone] System, Provider Not In Primary Care Provider Un available Alvaro Clark MD Unavailable System, Provider Not In Primary Care Provider Un available Ky Torres MD Unavailable [phone] Sixto Whalen APRN, CNP Unavailable [phone] No Ref-Primary, Physician Primary Care Provider Yessica Mcleod PA-C Unavailable Bhavin Gardner Primary Care Provider [phone] Ky Torres MD Unavailable [phone] Reason for Visit * Reason Onset Date Comments Patient Request 06/15/2023 Encounter Details Date Type Department Care Team (Late st Contact Info) Description 06/15/2023 [facility] Urology Clinic [address] [place] [address] Dalila Arrieta PA [address] [place] [address] [place] [address] Patient Request Social History Tobacco [...] Pia Caceres - 06/15/2023 10:22 AM CST [facility] Phone Message May a detailed message be left on voicemail: yes Reason for Call: Other: Pt razia Conway calling regarding pt upcoming appt for retention. Zoraida states pt is requesting a morning appt if possible. Please call Zoraida Action Taken: Message routed to: Other: [employer]ro Travel Screening: Not Applicable T END POLISHER documented in this encounter Plan of Treatment Upcoming Encounters Date Type Department Care Team (Late st Contact Info) Description 04/08/2024 1:00 PM PIVOT END POLISHER Lab [address] [place] [address] Yessica Mcleod PA-C [address] [place] [address] 04/08/2024 1:30 PM PIVOT END POLISHER Oncology Visit [place] [address] [place] [place] [address] Dylan Guerin PA [address] [place] [place] [address] 04/08/2024 1:30 PM PIVOT END POLISHER Infusion Therapy Visit [place] [address] [place] [address] [place] [address] Ky Torres MD [address] [place] [address] 05/02/2024 10:30 AM PIVOT END POLISHER Lab [place] [address] [place] [address] [place] [address] Ky Torres MD [address] [facility] [address] [place] [address] 05/02/2024 11:20 AM PIVOT END POLISHER Appointment [facility] Imaging [address] [place] [address] [place] [address] Ky Torres MD 420 [facility] [address] [place] [address] 05/06/2024 9:30 AM PIVOT END POLISHER Lab [address] [place] [address] Ky Torres MD [address] [address] 05/06/2024 10:00 AM PIVOT END POLISHER Oncology Visit [address] [place] [address] Ky Torres MD [address] [place] [address] [address] 05/06/2024 10:30 AM PIVOT END POLISHER Infusion Therapy Visit [address] [place] [address] Ky Torres MD [address] [address] documented as of this encounter Visit Diagnoses Not on filedocumented in this encounter Care Teams [employer] Relationship Specialty Start Date End Date System, Provider Not In PCP - General Clinic 07/20/23 07/20/23 System, Provider Not In PCP - General Clinic 08/13/23 12/21/23 No Ref-Primary, Physician PCP - General 12/22/23 12/27/23 Bhavin Gardner [address] [place] [address] PCP - General Family Medicine 12/28/23 Dalila Arrieta PA [address] [place] [address] [place] [address] Assigned Surgical Provider 07/03/23 Alvaro Clark MD [address] [place] [address] Assigned Surgical Provider 07/24/23 Ky Torres MD [address] [place] [address] Assigned Cancer Care Provider 09/22/23 10/21/23 Sixto Whalen APRN CNP [address] [place] [address] Assigned Cancer Care Provider 10/22/23 12/21/23 Yessica Mcleod PA-C [address] [place] [address] Assigned Cancer Care Provider 12/22/23 01/21/24 Ky Torres MD [address] [place] [address] 545765 Assigned Cancer Care Provider 01/22/24 documented as of this encounter
== END 2024-03-12 15:45 | disposition home or self-care (01) ==
LOC: ED 15:36
PROVIDERS: Emergency Provider Family Medicine; PCP Family Medicine
DX: T83.091A Other mechanical complication of indwelling urethral catheter, initial encounter (principal)
CPT/HCPCS: 99282; 99283

== ENCOUNTER 2024-04-04 09:20 | Emergency (ER) | payer MEDICARE, OTHER, SELFPAY ==
[2024-04-04 09:28] VITALS: BP 112/65; PULSE 103; RESP 16; TEMP 36.8; O2SAT 93; BMI 26.6
[2024-04-04 09:50] LABS: Appearance Urine Cloudy (Clear); Bilirubin Urine Negative (Negative); Blood Urine 1+ (Negative); Color Urine Yellow (Yellow); Glucose Urine Negative (Negative); Ketones Urine Negative (Negative); Leukocyte Esterase Urine 3+ (Negative); Nitrite Urine Negative (Negative); Protein Urine 2+ (Negative); Urobilinogen Urine 0.2 (0.2-1.0); pH Urine 6.5 (5.0-8.5)
[2024-04-04 10:04] LABS: Bacteria Urine Few; Squamous Epithelial Cell Urine Few (None-Few); WBC Urine >100 (0-5)
--- NOTE | 2024-04-04 11:01 | CRLHL7_ITS ---
For Patients: As a result of the 21st Century Cures Act, medical imaging exams and procedure reports are released immediately into your electronic medical record. You may view this report before your referring provider. If you have questions, please contact your health care provider. INDICATION: SUPRAPUBIC PAIN, BACK AND LEFT FLANK PAIN. UTI. PT HAS BLADDER CANCER TECHNIQUE: CT of the abdomen and pelvis was obtained with 85 mL of Isovue 370 intravenous contrast. Please note that all CT scans at this facility use dose modulation, iterative reconstruction, and/or weight-based dosing when appropriate to reduce radiation dose to as low as reasonably achievable. COMPARISON: 03/11/2024. FINDINGS: Lower thorax: Mild centrilobular emphysema. Liver and biliary tree: Subcentimeter hypoattenuating lesions are too small to characterize and are favored to represent cysts. Gallbladder: Normal. Spleen: Normal. Pancreas: Normal. Adrenal glands: Normal. Kidneys and ureters: No hydronephrosis. No obstructing renal calculi. Moderate bilateral urothelial thickening and enhancement. Gastrointestinal tract: Moderate sigmoid colonic diverticulosis without CT evidence of acute diverticulitis. No evidence of acute appendicitis. Postsurgical changes from partial small-bowel resection. No evidence of bowel obstruction. Peritoneal cavity: Redemonstration of 4.8 x 1.8 centimeter rim enhancing left pelvic sidewall fluid collection (2/125), previously measuring 6.6 x 2.2 centimeter. Bladder: Status post radical cystectomy. Postsurgical changes from ileal neobladder creation. Urothelial thickening of the neobladder. Pelvic organs: Status post prostatectomy. Vasculature: Mild calcification. Lymph nodes: Postsurgical changes from pelvic lymph node dissection. Abdominal wall: Postsurgical changes are seen in the anterior lower abdominal wall. Small fat containing right inguinal hernia. Musculoskeletal: Mild degenerative changes of the bilateral hips. Mild degenerative changes of the visualized spine. IMPRESSION: 1. Status post radical cystectomy. Postsurgical changes from ileal neobladder creation. Urothelial thickening of the neobladder. Moderate bilateral ureteral thickening and enhancement without evidence of hydronephrosis or obstructing renal calculi. Findings are compatible with urinary tract infection or inflammation. Consider correlation with urinalysis. 2. Redemonstration of 4.8 x 1.8 centimeter rim enhancing left pelvic sidewall fluid collection (2/125), previously measuring 6.6 x 2.2 centimeter. This may represent a postoperative seroma, though superinfection can not be excluded. Please note that all CT scans at this facility use dose modulation, iterative reconstruction, and/or weight-based dosing when appropriate to reduce radiation dose to as low as reasonably achievable. Dictated by Orion Bae MD @ 04/04/2024 11:59:35 AM (Electronically Signed)
--- NOTE | 2024-04-04 11:04 | ED.MALEGU ---
HPI - Male Genitourinary General Date Seen: 04/04/24 Chief complaint: Urogenital Problems, Male Stated complaint: urinary issues pain shooting from low abd to back Time Seen by Provider: 04/04/24 10:51 Source: patient Mode of arrival: ambulatory Limitations: no limitations History of Present Illness HPI Narrative: Patient is a 64-year-old male presenting to emergency department for suprapubic pain that is starting to radiate to bilateral flanks. Pain has been going on for the past couple days. It has been intermittent in nature but does seem like it is getting worse. States he will get these frequent episodes but feels like his bladder is spasming. Has had previous UTIs states this does seem somewhat similar. Had bladder surgery in November of 2023 for cancer. Since then he gets once a month injection of chemotherapy. Last injection was a week and a half ago. Has not had any fevers. Previously was a [place] bladder infections could as he had to do bladder flushes but since then has only had 1 bladder infection since he has stopped doing the flushes. Denies chest pain, shortness of breath, nausea/vomiting, diarrhea, constipation, weakness, lightheadedness, dizziness. States he has been able to eat and drink without issues. Has not had any pain with urination. No other concerns noted Related Data Previous Rx's ?Medication ?Instructions ?Recorded ciprofloxacin HCl 500 mg tablet 500 mg PO BID 7 days #14 tabs 03/11/24 ciprofloxacin HCl 500 mg tablet 500 mg PO BID #14 tabs 04/04/24 (Cipro) Allergies Allergy/AdvReac Type Severity Reaction Status Date / Time Penicillins Allergy Intermediate Verified 04/04/24 11:24 Review of Systems Status of ROS: Reports: 10 or more systems reviewed and unremarkable except as noted in History and below [facility] Medical History Reactive airway disease ?J45.909 - Unspecified asthma, uncomplicated (ICD-10) Pneumonia ?J18.9 - Pneumonia, unspecified organism (ICD-10) Surgical History History of pyloric stenosis as a child ?Z87.19 - Personal history of other diseases of the digestive system (ICD-10) Family History Father Cancer of kidney Myocardial infarction, Onset Age: 87 Grandfather Myocardial infarction Grandmother Myocardial infarction Social History 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, 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 Moist mucous membranes. Neck: Symmetric, trachea midline, No thyromegaly. CVS: RRR, No murmurs or gallops. Peripheral pulses 2+ and equal in all extremities RESP: Unlabored respiratory effort. Clear to auscultation bilaterally. GI: Mild suprapubic tenderness, Nondistended, No rebound or guarding. Mild right CVA tenderness MSK:Extremities w/o deformity, Normal Active ROM Skin: Warm, Dry. No rashes or lesions. Neuro: Normal Muscle tone, No focal neurological deficits. Psych: Awake, Alert, & Oriented x3. Appropriate mood and affect. Const: Vital Signs, click to edit/add: Vital Signs - 24 hr 04/04/24 09:28 04/04/24 11:49 Temperature 98.3 F Pulse Rate [Left P ulse Oximeter] 103 H 82 Respiratory Rate 16 16 Blood Pressure [Ri ght Upper Arm] 112/65 127/79 Pulse Oximetry 93 95 Oxygen Delivery Me thod Room Air Room Air Course Vital Signs Vital signs: Initial Vital Signs Temperature 98.3 F 04/04/24 09:28 Temperature Source Oral 04/04/24 09:28 Pulse Rate 103 H 04/04/24 09:28 Respiratory Rate 16 04/04/24 09:28 Blood Pressure 112/65 04/04/24 09:28 Blood Pressure Mean 80 04/04/24 09:28 Blood Pressure Position Sitting 04/04/24 09:28 Pulse Oximetry 93 11/04/24 09:28 Oxygen Delivery Method Room Air 04/04/24 09:28 Vital Signs Temperature 98.3 F 04/04/24 09:28 Pulse Rate 103 H 04/04/24 09:28 Respiratory Rate 16 04/04/24 09:28 Blood Pressure 112/65 04/04/24 09:28 Pulse Oximetry 93 04/04/24 09:28 Oxygen Delivery Method Room Air 04/04/24 09:28 Temperature 98.3 F 04/04/24 09:28 Pulse Rate 82 04/04/24 11:49 Respiratory Rate 16 04/04/24 11:49 Blood Pressure 127/79 04/04/24 11:49 Pulse Oximetry 95 04/04/24 11:49 Oxygen Delivery Method Room Air 04/04/24 11:49 MDM - Male Genitourinary MDM Narrative Medical decision making narrative: Patient is a 64-year-old male presenting to the emergency department for suprapubic pain. He is concerned he could be developing a UTI. This time I have some concern that this part cystitis is progressing into and upper urinary tract infection. Will do CT scan for better evaluation. This CT scan will also help evaluate any other intra-abdominal issues that could be causing symptoms such as constipation, appendicitis, diverticulitis. Seems less likely to be a abdominal aortic aneurysm rupture, gallbladder disease. Does not want anything for pain or nausea at this time. Also order urinalysis, CBC, CMP. He was tachycardic when he arrived so will do a lactate in case he has a white count and thus would meet criteria for SIRS. Lab work all returned showing no concerning abnormalities other than a UTI urinalysis. His pulse improved to 80 to without further intervention. CT scan returned showing sign of a UTI in bilateral ureteral thickening. I will treat him for this UTI. It also shows a 4.8 x 1.8 cm rim enhancing left pelvic sidewall fluid collection that is smaller than it was previously. This may represent a postoperative seroma versus abscess but this time he is having no pain left pelvic region in also pain seems more later this UTI. I am leaning towards this is a seroma and I will discharge him. I did explain to him about this finding is into return if symptoms worsen. He is aware. Also informed him to follow up with his urologist which he states he will. Lab Data Labs: Lab Results 04/04/24 04/04/24 Range/Units 09:38 11:00 WBC 6.84 (4.50-11.00) K/uL RBC 4.35 (4.30-5.90) m/uL Hgb 11.5 L (13.5-17.5) gm/dL Hct 36.8 L (37.0-53.0) % MCV 85 (80-100) fL MCH 26 (26-34) pg MCHC 31 L (32-36) gm/dL RDW Coeff of Pamela 15.8 H (11.5-15.5) % Plt Count 228 (140-440) K/uL Neut % (Auto) 62.8 (42.0-72.0) % Lymph % (Auto) 16.1 L (20-44) % [place] % (Auto) 12.4 H (0.0-11.0) % Eos % (Auto) 7.2 H (0.0-7.0) % Baso % (Auto) 0.3 (0.0-3.0) % Neut # (Auto) 4.30 (1.7-7.0) K/uL Lymph # (Auto) 1.10 (0.90-2.90) K/uL [place] # (Auto) 0.80 (0.00-0.90) K/UL Eos # (Auto) 0.50 (0.00-0.50) K/uL Baso # (Auto) 0.02 (0.00-0.30) K/uL Abs Immat Gran (auto) 0.08 (0.00-0.30) K/uL Imm/Tot Granulo (auto) 1.2 % Sodium 135 (135-149) mmol/L Potassium 4.0 (3.6-5.1) mmol/L Chloride 99 (96-114) mmol/L Carbon Dioxide 30 (20-32) mmol/L Anion Gap 6 L (7-15) mEq/L BUN 30 (7-30) mg/dL Creatinine 1.0 (0.5-1.5) mg/dL Estimated Creat Clear 71.25 Estimated GFR 84 ml/min Glucose 95 (60-115) mg/dL Lactate 0.7 (0.5-1.9) mmol/L Calcium 9.7 (8.4-10.6) mg/dL Total Bilirubin 0.3 (0.1-1.5) mg/dL AST 29 (12-35) U/L ALT 15 (4-50) U/L Alkaline Phosphatase 70 (40-150) U/L Total Protein 7.6 (6.0-8.3) g/dL Albumin 4.2 (3.3-5.0) g/dL Urine Color Yellow (Yellow) Urine Appearance Cloudy A (Clear) Urine pH 6.5 (5.0-8.5) Ur Specific [place] 1.010 (1.000-1.030) Urine Protein 2+ A (Negative) Urine Glucose (UA) Negative (Negative) Urine Ketones Negative (Negative) Urine Blood 1+ A (Negative) Urine Nitrite Negative (Negative) Urine Bilirubin Negative (Negative) Urine Urobilinogen 0.2 (0.2-1.0) Ur Leukocyte Esterase 3+ A (Negative) Urine RBC 2-5 A (0-2) Urine WBC >100 A (0-5) Ur Squamous Epith Cells Few (None-Few) Urine Bacteria Few A (None) Imaging Data CT scan abdomen pelvis: Attestation: I have reviewed the pertinent imaging results. Radiologist's impression: 1. Status post radical cystectomy. Postsurgical changes from ileal neobladder creation. Urothelial thickening of the neobladder. Moderate bilateral ureteral thickening and enhancement without evidence of hydronephrosis or obstructing renal calculi. Findings are compatible with urinary tract infection or inflammation. Consider correlation with urinalysis. 2. Redemonstration of 4.8 x 1.8 centimeter rim enhancing left pelvic sidewall fluid collection (2/125), previously measuring 6.6 x 2.2 centimeter. This may represent a postoperative seroma, though superinfection can not be excluded. Please note that all CT scans at this facility use dose modulation, iterative reconstruction, and/or weight-based dosing when appropriate to reduce radiation dose to as low as reasonably achievable. Dictated by Orion Bae MD @ 04/04/2024 11:59:35 AM Discharge Plan Discharge Clinical Impression: Urinary tract infection Qualifiers: Urinary tract infection type: site unspecified Hematuria presence: with hematuria Qualified Code(s): N39.0 - Urinary tract infection, site not specified Instructions: Urinary Tract Infection in Men (ED) Additional Instructions: Follow-up with your urologist about your UTI. Is there is a is pelvic wall fluid collection that is smaller than it was previously. This is most likely a benign seroma that occurs after surgery but if it starts causing pain or you develop worsening symptoms return for re-evaluation. Take the antibiotics as prescribed. Prescriptions: New ciprofloxacin HCl [Cipro] 500 mg tablet 500 mg PO BID Qty: 14 0RF No Action ciprofloxacin HCl 500 mg tablet 500 mg PO BID 7 Days Qty: 14 0RF Follow Up/Referrals: Rosa Maria Alatorre MD [Primary Care Provider] - Stand Alone Forms: [employer] Info Instructions
[2024-04-04 11:18] LABS: Lactate Sepsis w/Reflex* 0.7 mmol/L (0.5-1.9)
[2024-04-04 11:19] LABS: Basophils Absolute Auto 0.02 K/uL (0.00-0.30); Basophils Percent Auto 0.3 % (0.0-3.0); Eosinophils Percent Auto 7.2 % (0.0-7.0); Hematocrit 36.8 % (37.0-53.0); Hemoglobin* 11.5 gm/dL (13.5-17.5); Immature Granulocytes Abs Auto 0.08 K/uL (0.00-0.30); Immature Granulocytes Pct Auto 1.2 %; Lymphocytes Percent Auto 16.1 % (20-44); Mean Corpuscular HGB Conc 31 gm/dL (32-36); Mean Corpuscular Hemoglobin 26 pg (26-34); Mean Corpuscular Volume 85 fL (80-100); Monocytes Percent Auto 12.4 % (0.0-11.0); Neutrophils Percent Auto 62.8 % (42.0-72.0); Platelet Count* 228 K/uL (140-440); RDW Coefficient of Variation % 15.8 % (11.5-15.5); Red Blood Count 4.35 m/uL (4.30-5.90); White Blood Count* 6.84 K/uL (4.50-11.00)
[2024-04-04 11:21] LABS: Slide Review Reflex No
[2024-04-04 11:38] LABS: Albumin* 4.2 g/dL (3.3-5.0); Chloride* 99 mmol/L (96-114); Sodium* 135 mmol/L (135-149)
[2024-04-04 11:41] LABS: Alanine Aminotransferase* 15 U/L (4-50); Alkaline Phosphatase* 70 U/L (40-150); Anion Gap 6 mEq/L (7-15); Aspartate Amino Transferase* 29 U/L (12-35); Bilirubin Total* 0.3 mg/dL (0.1-1.5); Blood Urea Nitrogen* 30 mg/dL (7-30); Carbon Dioxide* 30 mmol/L (20-32); Est. Creatinine Clearance* 71.25; Estimated Glomerular Filt Rate 84 ml/min; Glucose* 95 mg/dL (60-115); Total Protein* 7.6 g/dL (6.0-8.3)
[2024-04-04 11:42] LABS: Calcium* 9.7 mg/dL (8.4-10.6)
[2024-04-04 11:49] VITALS: BP 127/79; PULSE 82; RESP 16; O2SAT 95
== END 2024-04-04 12:16 | disposition home or self-care (01) ==
PROVIDERS: Emergency Provider Student in an Organized Health Care Education/Training Program; PCP Family Medicine
DX: N39.0 Urinary tract infection, site not specified (principal)
CPT/HCPCS: 36415; 74177; 80053; 81001; 81003; 83605; 85025; 87086; 87186; 99283; 99284; 99285; Q9967

== ENCOUNTER 2024-04-07 21:38 | Emergency (ER) | payer MEDICARE, OTHER, SELFPAY ==
[2024-04-07 21:49] VITALS: BP 136/79; PULSE 103; RESP 16; TEMP 36.6; O2SAT 95; BMI 26.6
[2024-04-07 21:54] LABS: Appearance Urine Slightly Cloudy (Clear); Bilirubin Urine Negative (Negative); Blood Urine 2+ (Negative); Color Urine Light yellow (Yellow); Glucose Urine Negative (Negative); Ketones Urine Negative (Negative); Leukocyte Esterase Urine 3+ (Negative); Nitrite Urine Negative (Negative); Protein Urine 1+ (Negative); Specific Gravity Urine 1.015 (1.000-1.030); Urobilinogen Urine 0.2 (0.2-1.0)
--- NOTE | 2024-04-07 22:04 | ED.ABDPAIN ---
HPI - Abdominal Pain General Chief Complaint: Abdominal Pain Stated Complaint: adominal pain Time Seen by Provider: 04/07/24 21:55 History of Present Illness HPI narrative: This 64-year-old male comes in reporting severe abdominal pain that came after taking some food and drink. He states that this pain lasted for about half an hour but now is mostly gone. He does have a history of bladder cancer and has had a cystectomy. He was seen 4 days ago here and had a CT scan of his abdomen and pelvis with suspicion of urinary tract infection. He started on a medicine and then was called because culture results indicated a change in his treatment plan. He has been taking the new medication since the past 2 days. He arrives here with normal vital signs and his symptoms are resolved. Related Data Previous Rx's ?Medication ?Instructions ?Recorded ciprofloxacin HCl 500 mg tablet 500 mg PO BID 7 days #14 tabs 03/11/24 ciprofloxacin HCl 500 mg tablet 500 mg PO BID #14 tabs 04/04/24 (Cipro) Allergies Allergy/AdvReac Type Severity Reaction Status Date / Time Penicillins Allergy Intermediate Verified 04/07/24 21:52 Review of Systems Status of ROS Reports: 10 or more systems reviewed and unremarkable except as noted in History and below Narrative Constitutional: No fevers, no weight gain or loss. Eyes: No discharge. No vision changes. HENT: No congestion, no sore throat, no ear pain. Cardiovascular: No chest pain, no palpitations. Respiratory: No shortness of breath, no wheezes, no cough. Gastrointestinal: No vomiting, no diarrhea. Abdominal pain as described above which is now resolved. Genitourinary: No dysuria, no hematuria. Musculoskeletal: Normal range of motion. Skin: No rashes, no pruritis. Neurological: No dizziness, weakness, sensory change, speech change. Endo/Heme/Allergies: No bruising or bleeding. No polydipsia. Pysch: no suicidality, no anxiety, no insomnia. All other systems reviewed and are negative. 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 HEENT: Normocephalic, atraumatic. Neck: Normal range of motion. Nontender. Supple. Heart: Regular. No murmurs. Normal rate. Intact distal pulses. Lungs: Clear to auscultation. No chest discomfort. No wheezes, rhonchi, or rales. Abdomen: Normal bowel sounds. Nontender. No rebound tenderness. Genitalia: Deferred. Back: No midline tenderness. Normal range of motion. Extremities: Normal range of motion. No injury. Skin: Intact. No rash. Warm. No erythema or pallor. Neurologic: No altered sensation. No weakness. Alert and oriented. Psychiatric: No suicidality. No anxiety or depression. No insomnia. Nursing notes and vitals signs are reviewed. Const: Vital Signs, click to edit/add: Vital Signs - 24 hr 04/07/24 21:49 Temperature 97.8 F Pulse Rate [Pulse Oximeter] 95 Respiratory Rate 16 Blood Pressure [Ri ght Upper Arm] 136/79 Pulse Oximetry 103 H Oxygen Delivery Me thod Room Air Course Vital Signs Vital signs: Initial Vital Signs Temperature 97.8 F 04/07/24 21:49 Temperature Source Temporal Artery Scan 04/07/24 21:49 Pulse Rate 95 04/07/24 21:49 Respiratory Rate 16 04/07/24 21:49 Blood Pressure 136/79 04/07/24 21:49 Blood Pressure Mean 98 04/07/24 21:49 Blood Pressure Position Sitting 04/07/24 21:49 Pulse Oximetry 103 H 04/07/24 21:49 Oxygen Delivery Method Room Air 04/07/24 21:49 Vital Signs Temperature 97.8 F 04/07/24 21:49 Pulse Rate 95 04/07/24 21:49 Respiratory Rate 16 04/07/24 21:49 Blood Pressure 136/79 04/07/24 21:49 Pulse Oximetry 103 H 04/07/24 21:49 Oxygen Delivery Method Room Air 04/07/24 21:49 Temperature 97.8 F 04/07/24 21:49 Pulse Rate 95 04/07/24 21:49 Respiratory Rate 16 04/07/24 21:49 Blood Pressure 136/79 04/07/24 21:49 Pulse Oximetry 103 H 04/07/24 21:49 Oxygen Delivery Method Room Air 04/07/24 21:49 Medications Administered Medications: Generic Name Dose Route Start Last Admin Trade Name Freq PRN Reason Stop Dose Admin Ceftriaxone Sodium 1 gm 04/07/24 22:49 04/07/24 22:55 Ceftriaxone 1 Gm Vial IM 04/07/24 22:50 1 gm ONCE ONE Administration Lidocaine HCl 2.1 ml 04/07/24 22:49 04/07/24 22:55 Lidocaine 1% 5 Ml (Pf) 5 Ml Vial IM 2.1 ml DIRECTED PRN Administration Pain MDM - Abdominal Pain MDM Narrative Medical decision making narrative: This patient comes in because of a rather sudden onset of severe abdominal pain after taking some food and drink. The symptoms lasted for about half an hour and of now completely resolved upon arrival here. He does have a history of bladder cancer and has had a cystectomy. He was seen 4 days ago and diagnosed with the urinary tract infection and at that time had a CT scan of his abdomen and pelvis. He was started on a medicine that was changed later to cephalexin because culture and sensitivity showed an E coli organism that was resistant to what ever he was started on initially. I did review the culture and sensitivity reports that and see that this particular organism is resistant to fluoroquinolones, sulfa, and Macrobid. It is sensitive to cephalosporins and other antibiotics typically listed. The patient does have urinalysis that shows obvious infection yet despite taking antibiotic for these 3 or 4 days. Patient does have normal vital signs and is feeling normal now. He did receive an intramuscular injection of Rocephin and is encouraged to continue with the Keflex as prescribed. Lab Data Labs: Lab Results 04/07/24 Range/Units Unknown Urine Color Light yellow (Yellow) Urine Appearance Slightly Cloudy A (Clear) Urine pH 6.0 (5.0-8.5) Ur Specific [place] 1.015 (1.000-1.030) Urine Protein 1+ A (Negative) Urine Glucose (UA) Negative (Negative) Urine Ketones Negative (Negative) Urine Blood 2+ A (Negative) Urine Nitrite Negative (Negative) Urine Bilirubin Negative (Negative) Urine Urobilinogen 0.2 (0.2-1.0) Ur Leukocyte Esterase 3+ A (Negative) Urine RBC 25-50 A (0-2) Urine WBC >100 A (0-5) Ur Squamous Epith Cells Few (None-Few) Urine Bacteria Many A (None) Discharge Plan Discharge Clinical Impression: Urinary tract infection Qualifiers: Urinary tract infection type: site unspecified Hematuria presence: with hematuria Qualified Code(s): N39.0 - Urinary tract infection, site not specified Additional Instructions: Continue current medications as prescribed. Follow up with MD return if symptoms are recurrent or worsening. Prescriptions: No Action ciprofloxacin HCl 500 mg tablet 500 mg PO BID 7 Days Qty: 14 0RF ciprofloxacin HCl [Cipro] 500 mg tablet 500 mg PO BID Qty: 14 0RF Follow Up/Referrals: Rosa Maria Alatorre MD [Primary Care Provider] -
[2024-04-07 22:07] LABS: RBC Urine 25-50 (0-2)
[2024-04-07 22:08] LABS: Bacteria Urine Many; Squamous Epithelial Cell Urine Few (None-Few); WBC Urine >100 (0-5)
--- OUTSIDE RECORDS SUMMARY | 2024-04-07 22:22 | XMS_ITS | Encounter Summary ---
Author Organization [facility] Address [address] [place] [address]. [place] [address] Care Team Providers Care Protein Specialist Name Role Phone Alvaro Clark MD Unavailable Bhavin Gardner Primary Care Provider [phone] Ky Torres MD Unavailable [phone] Reason for Visit * Reason Onset Date Comments Symptoms 03/15/2024 Encounter Details Date Type Department Care Team (Late st Contact Info) Description 03/15/2024 [facility] [address] [facility] [place] [address] Dylan Guerin PA [address] [place] [id number] Symptoms Social History Tobacco Use Types [...] Recorded Sex Assigned at Not on file Legal Sex Male 4:18 PM [employer] Gender Identity Not on file Sexual Orientation Not on file 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 file documented as of this encounter Plan of Treatment Upcoming Encounters Date Type Department Care Team (Late st Contact Info) Description 04/22/2024 10:15 AM [facility]AX PUMPER Lab [address] [place] [address] Yessica Mcleod PA-C [address] [place] [address] 04/22/2024 11:00 AM WAX PUMPER Oncology Visit [address] [place] [address] Yessica Mcleod PA-C [address] [place], [place] [id number] Dylan Guerin PA [address] [place], [place] [id number] 04/22/2024 12:00 PM [employer]AX PU[employer]ER Infusion Therapy Visit [address] [place] [phone] Ky Torres MD [address] [id number] 05/02/2024 10:30 AM [facility]ER Lab [address] [place] [address] Ky Torres MD [address] [id number] 05/02/2024 11:20 AM WAX PUMPER Appointment [facility] [address] [place] [phone] Ky Torres MD [address] [address] 05/06/2024 10:00 AM WAX PU[employer]ER Oncology Visit [address] [place] [address] Ky Torres MD [address] [address] 05/20/2024 11:00 AM [employer]AX PU[employer]ER Infusion Therapy Visit [address] [place] [address] Ky Torres MD [address] [place] [address] 05/27/2024 9:45 AM [employer]AX PU[employer]ER Office Visit [address] [place] [address] Alvaro Clark MD [address] [place] [phone] documented as of this encounter Visit Diagnoses Not on filedocumented in this encounter Care Teams Protein Specialist Relationship Specialty Start Date End Date [employer]otel[employer]havin [address] [place] [id number] PCP - General Family Medicine 12/28/23 Alvaro Clark MD [address] [place] [address] [phone] Assigned Surgical Provider 07/24/23 Ky Torres MD [address] [address] Assigned Cancer Care Provider 01/22/24 documented as of this encounter
--- OUTSIDE RECORDS SUMMARY | 2024-04-07 22:22 | XMS_ITS | Encounter Summary ---
Author Organization [place] Address [address] [place] [address]. [place] [address] Care Team Providers Care Digital Hardware Design Engineer Name Role Phone Alvaro Clark MD Unavailable Bhavin Gardner Primary Care Provider [phone] Ky Torres MD Unavailable [phone] Reason for Visit * Reason Comments Labs Only * Treatment and Therapy Plans (Routine) - Authorized Specialty Diagnoses / Procedures Referred By Contac t Referred To Contact Infusion Therapy Diagnoses Malignant neoplasm of anterior wall of urinary bladder (H) Procedures ZZC INJECTION, NIVOLUMAB 1MG Ky Torres MD [address] [facility] [address] [place] [address] Phone: tel: fax: [place] [address] [address] [place] [address] Phone: tel: fax: Referral ID Status Reason Start Date Expiration Date V isits Requested Visits Authorized [id number] Authorized 01/15/2024 05/31/2024 99 99 Encounter Details Date Type Department Care Team (Late st Contact Info) Description 02/10/2024 10:15 AM CDT Lab [place] [phone] [place] [phone] Dylan Guerin PA [address] [place] [address] Malignant neoplasm of anterior wall of urinary [...] on file 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 Gender Identity Not on file Sexual Orientation Not on file 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 file documented as of this encounter Plan of Treatment Upcoming Encounters Date Type Department Care Team (Late st Contact Info) Description 04/22/2024 10:15 AM 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 [address] [place] [address] Yessica Mcleod PA-C [address] [place] [phone] 04/22/2024 11:00 AM CREW CAR DRIVER Oncology Visit [address] [place] [address] Yessica Mcleod, RONALD [address] [place] [address] Dylan Guerin PA [address] [place] [address] 04/22/2024 12:00 PM CREW CAR DRIVER Infusion Therapy Visit [address] [place] [address] Ky Torres MD [address] [facility] [address] [place] [address] 05/02/2024 10:30 AM 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 [address] [place] [address] Ky Torres MD [address] [facility] [address] [place] [address] 05/02/2024 11:20 AM CREW CAR DRIVER Appointment [facility] Imaging [address] [place] [phone] Ky Torres MD 420 [facility] SE [facility] [address] [place] [address] 05/06/2024 10:00 AM CREW CAR DRIVER Oncology Visit [address] [place] [address] Ky Torres MD [address] [place] [address] [facility] [address] [place] [address] 05/20/2024 11:00 AM CREW CAR DRIVER Infusion Therapy Visit [address] [place] [address] Ky Torres MD [address] [facility] [address] [place] [address] 05/27/2024 9:45 AM CREW CAR DRIVER Office Visit [address] [place] [phone] Alvaro Clark MD [address] [facility] [address] [place] [address] documented as of this encounter Visit Diagnoses [...] each lumen of the catheter with 5 mL.Indications:Malignant neoplasm of anterior wall of urinary bladder (H) $Given 02/10/2024 10:25 AM CDT 5 mLs [...] to assess patency; 20 mL after blood draw.Indications:Malignant neoplasm of anterior wall of urinary bladder (H) $Given 02/10/2024 10:24 AM CDT 20 mLs documented in this encounter Care Teams Digital Hardware Design Engineer Relationship Specialty Start Date End Date Votel, Bhavin Ford [address] [place] [address] PCP - General Family Medicine 12/28/23 Alvaro Clark MD [address] [place] [address] Assigned Surgical Provider 07/24/23 Ky Torres MD [address] [place] [address] Assigned Cancer Care Provider 01/22/24 documented as of this encounter
--- OUTSIDE RECORDS SUMMARY | 2024-04-07 22:22 | XMS_ITS | Encounter Summary ---
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 file documented as of this encounter Plan of Treatment Upcoming Encounters Date Type Department Care Team (Late st Contact Info) Description 04/22/2024 10:15 AM HARMONICA MAKER Lab [facility] [address] [place] [phone] Yessica Mcleod PAJannetC [address] [place] [address] 04/22/2024 11:00 AM HARMONICA MAKER Oncology Visit [address] [place] [address] Yessica Mcleod PA-C [address] [place] [address] Dylan Guerin PA [address] [place], [place] [address] 04/22/2024 12:00 PM HARMONICA MAKER Infusion Therapy Visit [address] [place] [phone] Ky Torres MD [address] [facility] [address] [place], [place] [address] 05/02/2024 10:30 AM HARMONICA MAKER Lab [address] [place] [address] Ky Torres MD 420 [facility] [address] [place], [place] [address] 05/02/2024 11:20 AM HARMONICA MAKER Appointment [facility] Imaging [address] [place] [address] [place] [phone] Ky Torres MD 420 [facility] [address] [place], [place] [address] 05/06/2024 10:00 AM HARMONICA MAKER Oncology Visit [address] [place] [address] Ky Torres MD 420 [facility] [address] [place], [place] [address] 05/20/2024 11:00 AM HARMONICA MAKER Infusion Therapy Visit [address] [place] [address] Ky Torres MD [address] [place] [address] 05/27/2024 9:45 AM HARMONICA MAKER Office Visit [address] [place] [address] Alvaro Clark MD [address] [place] [address] documented as of this encounter Visit Diagnoses Not on filedocumented in this encounter Care Teams Veneer Sample Maker Relationship Specialty Start Date End Date VotelBhavin [address] [place] [address] PCP - General Family Medicine 12/28/23 Alvaro Clark MD [address] [place] [address] Assigned Surgical Provider 07/24/23 Ky Torres MD [address] [place] [address] Assigned Cancer Care Provider 01/22/24 documented as of this encounter
--- OUTSIDE RECORDS SUMMARY | 2024-04-07 22:22 | XMS_ITS | Encounter Summary ---
Author Organization [place] Address [address] [place] [address]. [place] [address] Care Team Providers Care Dining Service Supervisor Name Role Phone Alvaro Clark MD Unavailable Bhavin Gardner Primary Care Provider [phone] Ky Torres MD Unavailable [phone] Reason for Visit * Reason Comments Chemotherapy C2D1 Opdivo and veno yuridia, labs * Treatment and Therapy Plans (Routine) - Authorized Specialty Diagnoses / Procedures Referred By Contac t Referred To Contact Infusion Therapy Diagnoses Iron deficiency anemia due to chronic blood loss Procedures ZZC IRON SUCROSE INJ, 1MG Dylan Guerin PA [address] [facility] [address] Phone: tel: fax: [place] [address] [address] [place] [address] Phone: tel: fax: Referral ID Status Reason Start Date Expiration Date V isits Requested Visits Authorized [id number] Authorized 02/10/2024 05/31/2024 99 99 Encounter Details Date Type Department Care Team (Latest Contact Info) Description 03/24/2024 12:00 PM CDT Infusion Therapy Visit [place] [address] [address] [place] [phone] Dylan Guerin PA [address] [place] [address] Malignant neoplasm of anterior wall of urinary [...] on file Legal Sex Male 4:18 PM PLASTERING SUPERVISOR Gender Identity Not on file Sexual Orientation Not on file 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 file documented as of this encounter Last Filed Vital Signs Vital Sign Reading Time Taken Comments Blood Pressure 116/72 03/24/2024 12:10 PM CDT Pulse 70 03/24/2024 12:10 PM CDT Temperature 36.1 ??C (97 ??F) 03/24/2024 12: 10 PM CDT Respiratory Rate 16 03/24/2024 12:1 0 PM CDT Oxygen Saturation 100% 03/24/2024 12: 10 PM CDT Inhaled Oxygen Concentration - - Weight 81.6 kg (179 lb 12.8 oz) 024 12:10 PM CDT Height - - Body Mass Index 28.16 03/23/2024 10:31 AM CDT documented in this encounter Progress Notes * Emely Hendricks, CARLOS - 03/24/2024 12:00 PM CDT Infusion Nursing Note: Oleg Richard presents today for C2D1 Opdivo and venofer, labs. Patient seen by provider today: no - STACEY Wang yesterday Mass Communications Instructor present during visit today: Not Applicable. Note: Tolerated venofer last time with no issue. No changes in how he is feeling since yesterday's visit with Dylan. Intravenous Access: Labs drawn without difficulty. Implanted Port. Treatment Conditions: Lab Results Component Value Date HGB 10.6 (L) 03/24/2024 WBC 9.9 03/24/2024 ANEU 9.3 (H) 11/10/2023 ANEUTAUTO 7.1 03/24/2024 PLT 249 03/24/2024 Lab Results Component Value Date NA 136 03/24/2024 POTASSIUM 4.2 03/24/2024 MAG 2.0 12/28/2023 CR 1.08 03/24/2024 JUANY 9.2 03/24/2024 BILITOTAL 0.2 03/24/2024 ALBUMIN 3.7 03/24/2024 ALT 27 03/24/2024 AST 35 03/24/2024 Results reviewed, labs MET treatment parameters, ok [...] all questions answered. AVS to patient via [employer]. Patient will return 04/22/24 for next appointment. Patient discharged in stable condition accompanied by: self. Departure Mode: Ambulatory. Emely Hendricks RN documented in this encounter Plan of Treatment Upcoming Encounters Date Type Department Care Team (Late st Contact Info) Description 04/22/2024 10:15 AM PLASTERING SUPERVISOR Lab [address] [place] [address] Yessica Mcleod PA-C [address] [place] [phone] 04/22/2024 11:00 AM PLASTERING SUPERVISOR Oncology Visit [address] [place] [address] Yessica Mcleod PA-C [address] [place] [phone] Dylan Guerin PA [address] [place], [place] [address] 04/22/2024 12:00 PM PLASTERING SUPERVISOR Infusion Therapy Visit [address] [place] [phone] Ky Torres MD [address] [facility] [address] [place] [address] 05/02/2024 10:30 AM PLASTERING SUPERVISOR Lab [address] [place] [address] Ky Torres MD [address] [facility] [address] [place], [place] [address] 05/02/2024 11:20 AM PLASTERING SUPERVISOR Appointment [facility] Imaging [address] [place] [address] [place] [address] Ky Torres MD [address] [facility] [address] [place] [address] 05/06/2024 10:00 AM PLASTERING SUPERVISOR Oncology Visit [address] [place] [address] Ky Torres MD [address] [facility] [address] [place], [place] [address] 05/20/2024 11:00 AM PLASTERING SUPERVISOR Infusion Therapy Visit [address] [place] [address] Ky Torres MD 420 [facility] [address] [place] [address] 05/27/2024 9:45 AM PLASTERING SUPERVISOR Office Visit [facility] [address] [facility] [place] [phone] Alvaro Clark MD 420 [facility] [address] [place], [place] [address] documented as of this encounter Procedures Procedure Name Priority Date/Time Associated Diagnosis Comments CBC WITH PLATELETS AND DIFFERENTIAL Routine 03/24/2024 12:04 PM CDT Malignant neoplasm of anterior wall of urinary bladder (H) CBC WITH PLATELETS & DIFFERENTIAL Routine 03/24/2024 12:04 PM CDT Malignant neoplasm of anterior wall of urinary bladder (H) TSH WITH FREE T4 REFLEX Routine 03/24/2024 12:04 PM CDT Malignant neoplasm of anterior wall of urinary bladder (H) COMPREHENSIVE METABOLIC PANEL Routine 03/24/2024 12:04 PM CDT Malignant neoplasm of anterior wall of urinary bladder (H) documented in this encounter Results * (ABNORMAL) CBC with platelets and differential (03/24/2024 12:04 PM CDT) WBC Count 9.9 4.0 - 11.0 10e3/uL 03/24/2024 12:10 PM CDT [facility] RBC Count 4.03(L) 4.40 - 5.90 10e6/uL 03/24/2024 12:10 PM CDT [facility] Hemoglobin 10.6(L) 13.3 - 17.7 g/dL 03/24/2024 12:10 PM CDT [facility] Hematocrit 34.6(L) 40.0 - 53.0 % 03/24/2024 12:10 PM CDT [facility] MCV 86 78 - 100 fL 03/24/2024 12:10 PM CDT [facility] MCH 26.3(L) 26.5 - 33.0 pg 03/24/2024 12:10 PM CDT [facility] MCHC 30.6(L) 31.5 - 36.5 g/dL 03/24/2024 12:10 PM CDT [facility] RDW 15.6(H) 10.0 - 15.0 % 03/24/2024 12:10 PM CDT [facility] Platelet Count 249 150 - 450 10e3/uL 03/24/2024 12:10 PM CDT [facility] % Neutrophils 71 % 03/24/2024 12:10 PM CDT [facility] % Lymphocytes 13 % 03/24/2024 12:10 PM CDT [facility] % Monocytes 9 % 03/24/2024 12:10 PM CDT [facility] % Eosinophils 6 % 03/24/2024 12:10 PM CDT [facility] % Basophils 1 % 03/24/2024 12:10 PM CDT [facility] % Immature Granulocytes 1 % 03/24/2024 12:10 PM CDT [facility] NRBCs per 100 WBC 0 <1 /100 024 12:10 PM CDT [facility] Absolute Neutrophils 7.1 1.6 - 8.3 10e3/uL 03/24/2024 12:10 PM CDT [facility] Absolute Lymphocytes 1.3 0.8 - 5.3 10e3/uL 03/24/2024 12:10 PM CDT [facility] Absolute Monocytes 0.8 0.0 - 1.3 10e3/uL 03/24/2024 12:10 PM CDT [facility] Absolute Eosinophils 0.6 0.0 - 0.7 10e3/uL 03/24/2024 12:10 PM CDT [facility] Absolute Basophils 0.1 0.0 - 0.2 10e3/uL 03/24/2024 12:10 PM CDT [facility] Absolute Immature Granulocytes 0.1 <=0.4 10e3/uL 03/24/2024 12:10 PM CDT [facility] Absolute NRBCs 0.0 10e3/uL 03/24/2024 12:10 PM CDT [facility] Blood BLOOD SPECIMEN / Unknown IVAD (Port) / Unknown 03/24/2024 12:04 PM CDT 03/24/2024 12:07 PM CDT us Dylan [facility]BAR[facility] - BLOOD ORDERABLES Fin al Result LABORATORY [facility] [address] Lab (1st floor, no room number) [place] [phone] [[email or web address]] * TSH with free T4 reflex (03/24/2024 12:04 PM CDT) TSH 3.81 0.30 - 4.20 uIU/mL 03/24/2024 12:34 PM CDT [facility] Blood BLOOD SPECIMEN / Unknown IVAD (Port) / Unknown 03/24/2024 12:04 PM CDT 03/24/2024 12:07 PM CDT Dylan IBARRA LAB - BLOOD ORDERABLES Fin al Result Performing Organization Address City/[facility]/ZIP Co de Phone Number LABORATORY [facility] Lab [address] Lab (1st floor, no room number) [place] [phone] [[email or web address]] * Comprehensive metabolic panel (03/24/2024 12:04 PM CDT) Sodium 136 135 - 145 mmol/L 03/24/2024 12:27 PM CDT LABORATORY Potassium 4.2 3.4 - 5.3 mmol/L 03/24/2024 12:27 PM CDT [facility] Carbon Dioxide (CO2) 25 22 - 29 mmol/L 03/24/2024 12:27 PM CDT LABORATORY Anion Gap 11 7 - 15 mmol/L 03/24/2024 12:27 PM CDT [facility] Urea Nitrogen 20.2 8.0 - 23.0 mg/dL 03/24/2024 12:27 PM CDT [facility] Creatinine 1.08 0.67 - 1.17 mg/dL 03/24/2024 12:27 PM CDT [facility] GFR Estimate 76 >60 mL/min/1.7 3m2 03/24/2024 12:27 PM CDT [facility] Comment:eGFR calculated usin 2020 CKD-EPI equation. Calcium 9.2 8.8 - 10.4 mg/dL 03/24/2024 12:27 PM CDT [facility] Comment:Reference intervals for this test were updated on 12/15/2023 to reflect our healthy population more accurately. There may be differences in the flagging of prior results with similar values performed with this method. Those prior results can be interpreted in the context of the updated reference intervals. Chloride 100 98 - 107 mmol/L 03/24/2024 12:27 PM CDT [facility] Glucose 95 70 - 99 mg/dL 03/24/2024 12:27 PM CDT [facility] Alkaline Phosphatase 73 40 - 150 U/L 03/24/2024 12:27 PM CDT [facility] AST 35 0 - 45 U/L 03/24/2024 12:27 PM CDT [facility] ALT 27 0 - 70 U/L 03/24/2024 12:27 PM CDT [facility] Protein Total 7.0 6.4 - 8.3 g/dL 03/24/2024 12:27 PM CDT [facility] Albumin 3.7 3.5 - 5.2 g/dL 03/24/2024 12:27 PM CDT [facility] Bilirubin Total 0.2 <=1.2 mg/dL 03/24/2024 12:27 PM CDT [facility] Blood BLOOD SPECIMEN / Unknown IVAD (Port) / Unknown 03/24/2024 12:04 PM CDT 03/24/2024 12:07 PM CDT us Dylan IBAR[facility] LAB - BLOOD ORDERABLES Fin al Result LABORATORY [facility] [address] Lab (1st floor, no room number) [place] [address], [facility] documented in this encounter [...] port or lock each lumen, Starting on Fiona 03/24/24 at 1232, PORT: to de-access, instill 5 mL before PORT needle is removed and every 28 days. Apheresis: only for use when patient is NOT under care of apheresis services; after a 10 mL NS flush, lock each lumen of the catheter with 5 mL.Indications:Malignant neoplasm of anterior wall of urinary bladder (H) $Given 03/24/2024 2:15 PM CDT 5 mLs iron sucrose (VENOFER) 300 mg in sodium chloride 0.9 % 290 mL intermittent infusion 300 mg, Intravenous, Administer over 90 Minutes, at 193.3 mL/hr, ONCE, On Fiona 03/24/24 at 1215, For 1 dose, Give subsequent doses at least 48 hours apart.Indications:Iron deficiency anemia due to chronic blood loss $New Bag 03/24/2024 12:09 PM CDT 300 mg 193.3 mL/hr nivolumab (OPDIVO) 480 mg in sodium chloride 0.9 % 158 mL infusion 480 mg, Intravenous, ONCE, On Fiona 03/24/24 at 1245, For 1 dose, Administer over 30 Minutes, Administer through 0.2-1.2 micron low protein binding filter. May require hepatic and/or renal dose or frequency adjustments. See reference link for guidelines.Indications:Malign ant neoplasm of anterior wall of urinary bladder (H) $New Bag 03/24/2024 1:43 PM CDT 480 mg 316 mL/hr sodium chloride (PF) 0.9% PF flush 3-20 mL 3-20 mL, Intracatheter, EVERY 1 MIN PRN, line flush, post meds or blood draw, Starting on Fiona 03/24/24 at 1232, PIV: 3 mL after each use & [...] anterior wall of urinary bladder (H) $Given 03/24/2024 2:15 PM CDT 10 mLs documented in this encounter Care Teams Dining Service Supervisor Relationship Specialty Start Date End Date Votel, Bhavin Ford [address] [place] [address] PCP - General Family Medicine 12/28/23 Alvaro Clark MD 420 [facility] [address] [place], [place] [address] Assigned Surgical Provider 07/24/23 Ky Torres MD 420 [facility] 480 [place], [place] [address] Assigned Cancer Care Provider 01/22/24 documented as of this encounter
--- OUTSIDE RECORDS SUMMARY | 2024-04-07 22:22 | XMS_ITS | Encounter Summary ---
Author Organization [place] Address [address] [place] [address] Care Team Providers Care Radiologist Chief Of Breast Imaging Name Role Phone Alvaro Clark MD Unavailable Bhavin Gardner Primary Care Provider [phone] Ky Torres MD Unavailable [phone] Reason for Visit * Reason Onset Date Comments Call Back 02/05/2024 Encounter Details Date Type Department Care Team (Late st Contact Info) Description 02/05/2024 [facility] [address] 4th [place] [address] Alvaro Clark MD 420 [facility] [address] [place] [address] Call Back Social History Tobacco [...] on file Legal Sex Male 4:18 PM DIRECTOR SUPPLY CHAIN Gender Identity Not on file Sexual Orientation Not on file 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 Per Alesha ER provider was able to speak with Dr. Clark regarding patient. Patient was started on two week course of Keflex of possible UTI/ cystitis. Patient was discharged home today 02/05/24. Charlie Almonte RN, BSN. RN Bow Maker Machine Tender [facility] [phone] * Telephone Encounter - Paresh Her - 02/05/2024 1:[address] [facility] Phone Message May a detailed message be left on voicemail: no Reason for Call: Other: Alesha magallon nurse from the ER called to get in contact with Dr Clark. Please call her back at [phone]. Action Taken: Message routed to: [facility] Urology Travel Screening: Not Applicable Date of Service: documented in this encounter Plan of Treatment Upcoming Encounters Date Type Department Care Team (Late st Contact Info) Description 04/22/2024 10:15 AM DIRECTOR SUPPLY CHAIN Lab [address] [place] [address] Yessica Mcleod PA-C [address] [place] [address] 04/22/2024 11:00 AM DIRECTOR SUPPLY CHAIN Oncology Visit [address] [place] [address] Yessica Mcleod PA-C [address] [place] [phone] Dylan Guerin PA [address] [place] [address] 04/22/2024 12:00 PM DIRECTOR SUPPLY CHAIN Infusion Therapy Visit [address] [place] [address] Ky Torres MD [address] [facility] [address] [place] [address] 05/02/2024 10:30 AM DIRECTOR SUPPLY CHAIN Lab [address] [place] [address] Ky Torres MD [address] [address] 05/02/2024 11:20 AM DIRECTOR SUPPLY CHAIN Appointment [facility] Imaging [address] [place] [address] [place] [address] Ky Torres MD [address] [address] 05/06/2024 10:00 AM DIRECTOR SUPPLY CHAIN Oncology Visit [address] [place] [address] Ky Torres MD [address] [address] 05/20/2024 11:00 AM DIRECTOR SUPPLY CHAIN Infusion Therapy Visit [address] [place] [address] Ky Torres MD [address] [facility] [address] [place] [address] 05/27/2024 9:45 AM DIRECTOR SUPPLY CHAIN Office Visit [facility] [address] [place] [address] [facility] [place] [address] Alvaro Clark MD 420 [facility] 394 [place], [place] [address] documented as of this encounter Visit Diagnoses Not on filedocumented in this encounter Care Teams Radiologist Chief Of Breast Imaging Relationship Specialty Start Date End Date Votel, Bhavin Ford [address] [place] [address] PCP - General Family Medicine 12/28/23 Alvaro Clark MD [address] 8[address] Assigned Surgical Provider 07/24/23 Ky Torres MD [address] [address] Assigned Cancer Care Provider 01/22/24 documented as of this encounter
--- OUTSIDE RECORDS SUMMARY | 2024-04-07 22:22 | XMS_ITS | Encounter Summary ---
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 Richard. He had [...] The follow-up with his primary care in [place] next week likelyfor removal of his Isaac catheter. He can follow-up in urology here sometime over the next 1 to 2 months. documented in this encounter Plan of Treatment Upcoming Encounters Date Type Department Care Team (Late st Contact Info) Description 04/22/2024 10:15 AM GIS ANALYST DEVELOPER Lab [address] [place] [address] Yessica Mcleod PA-C [address] [place] [id number] 04/22/2024 11:00 AM GIS ANALYST DEVELOPER Oncology Visit [place] [address] [place] [address] Yessica Mcleod PA-C [address] [place] [phone] Dylan Guerin PA [address] [place] [address] 04/22/2024 12:00 PM GIS ANALYST DEVELOPER Infusion Therapy Visit [place] [address] [place] [address] Ky Torres MD [address] [place] [address] 05/02/2024 10:30 AM GIS ANALYST DEVELOPER Lab [address] [place] [phone] Ky Torres MD [address] [facility] [address] [place] [address] 05/02/2024 11:20 AM GIS ANALYST DEVELOPER Appointment [facility] Imaging [address] [place] [phone] Ky Torres MD [address] [facility] [address] [place] [address] 05/06/2024 10:00 AM GIS ANALYST DEVELOPER Oncology Visit [address] [place] [address] Ky Torres MD [address] [facility] [address] [place] [address] 05/20/2024 11:00 AM GIS ANALYST DEVELOPER Infusion Therapy Visit [address] [place] [phone] Ky Torres MD [address] [facility] [address] [place] [address] 05/27/2024 9:45 AM GIS ANALYST DEVELOPER Office Visit [address] [place] [phone] Alvaro Clark MD [address] [facility] [address] [place] [address] documented as of this encounter Visit Diagnoses Not on filedocumented in this encounter Care Teams Surgical Aide Relationship Specialty Start Date End Date Votel, Bhavin Ford [address] [place] [address] PCP - General Family Medicine 12/28/23 Alvaro Clark MD [address] [place] [address] [address] [place] [address] Assigned Surgical Provider 07/24/23 Ky Torres MD [address] [place] [id number] Assigned Cancer Care Provider 01/22/24 documented as of this encounter
--- OUTSIDE RECORDS SUMMARY | 2024-04-07 22:22 | XMS_ITS | Encounter Summary ---
Author Organization [facility] Address [address] [place] [address] Care Team Providers Care Business Analyst Ecommerce Name Role Phone Alvaro Clark MD Unavailable Bhavin Gardner Primary Care Provider [phone] Ky Torres MD Unavailable [phone] Reason for Visit * Reason Comments Chemotherapy Opdivo and Venofer * Treatment and Therapy Plans (Routine) - Authorized Specialty Diagnoses / Procedures Referred By Contkatlyn t Referred To Contact Infusion Therapy Diagnoses Malignant neoplasm of anterior wall of urinary bladder (H) Procedures ZZC INJECTION, NIVOLUMAB 1MG Ky Torres MD [address] [address] Phone: tel: fax: [place] [address] [place] [address] Phone: tel: fax: Referral ID Status Reason Start Date Expiration Date V isits Requested Visits Authorized [id number] Authorized 01/15/2024 05/31/2024 99 99 Encounter Details Date Type Department Care Team (Late st Contact Info) Description 02/11/2024 11:00 AM CDT Infusion Therapy Visit [facility] [address] [place] [phone] Ky Torres MD [address] [address] Malignant neoplasm of anterior wall of urinary [...] on file Legal Sex Male 4:18 PM R D INTERN Gender Identity Not on file Sexual Orientation [...] Iron Sucrose Injection (IRON SUCROSE - INJECTION) (Ukrainian) * Nivolumab Injection (NIVOLUMAB - INJECTION) (Ukrainian) documented in this encounter Progress Notes * Bessy Diaz RN - 02/11/2024 11:00 AM CDT Infusion Nursing Note: Oleg Richard presents today for C1D1 Opdivo. Patient seen by provider today: No. Dr Torres yesterday 02/10/24. Mica Paster present during visit today: Not Applicable. Note: [...] all questions answered. AVS to patient via [employer]. Patient will return 03/11/24 for next appointment. Patient discharged in stable condition accompanied by: self. Departure Mode: Ambulatory. Bessy Diaz RN documented in this encounter Plan of Treatment Upcoming Encounters Date Type Department Care Team (Late st Contact Info) Description 04/22/2024 10:15 AM R D INTERN Lab [facility] [address] [place] [phone] Yessica Mcleod PA-C [address] [place] [address] 04/22/2024 11:00 AM R D INTERN Oncology Visit [address] [place] [address] Yessica Mcleod PA-C [address] [place] [address] Dylan Guerin PA [address] [place], [place] [address] 04/22/2024 12:00 PM R D INTERN Infusion Therapy Visit [address] [place] [phone] Ky Torres MD [address] [facility] [address] [place], [place] [address] 05/02/2024 10:30 AM R D INTERN Lab [address] [place] [phone] Ky Torres MD [address] [facility] [address] [place], [place] [address] 05/02/2024 11:20 AM R D INTERN Appointment [facility] Imaging [address] [place] [phone] Ky Torres MD [address] [facility] [address] [place], [place] [address] 05/06/2024 10:00 AM R D INTERN Oncology Visit [address] [place] [address] Ky Torres MD [address] [facility] [address] [place], [place] [address] 05/20/2024 11:00 AM R D INTERN Infusion Therapy Visit [facility] [address] [place] [address] Ky Torres MD 420 [facility] [address] [place] [address] 05/27/2024 9:45 AM R D INTERN Office Visit [address] [facility] [place] [phone] Alvaro Clark MD 420 [facility] [address] [place] [address] documented as of this encounter Visit Diagnoses [...] or lock each lumen, Starting on Fiona 02/11/24 at 1052, PORT: to de-access, instill 5 mL before PORT needle is removed and every 28 days. Apheresis: only for use when patient is NOT under care of apheresis services; after a 10 mL NS flush, lock each lumen of the catheter with 5 mL.Indications:Iron deficiency anemia due to chronic blood loss $Given 02/11/2024 1:53 PM CDT 5 mLs iron sucrose (VENOFER) 300 mg in sodium chloride 0.9 % 290 mL intermittent infusion 300 mg, Intravenous, Administer over 90 Minutes, at 193.3 mL/hr, ONCE, On Fiona 02/11/24 at 1100, For 1 dose, Give subsequent doses at least 48 hours apart.Indications:Iron deficiency anemia due to chronic blood loss $New Bag 02/11/2024 11:28 AM CDT 300 mg 193.3 mL/hr nivolumab (OPDIVO) 480 mg in sodium chloride 0.9 % 158 mL infusion 480 mg, Intravenous, ONCE, On Fiona 02/11/24 at 1300, For 1 dose, Administer over 30 Minutes, Administer through 0.2-1.2 micron low protein binding filter. May require hepatic and/or renal dose or frequency adjustments. See reference link for guidelines.Indications:Malign ant neoplasm of anterior wall of urinary bladder (H) $New Bag 02/11/2024 1:08 PM CDT 480 [...] to assess patency; 20 mL after blood draw.Indications:Iron deficiency anemia due to chronic blood loss $Given 02/11/2024 1:53 PM CDT 10 mLs $Given 02/11/2024 11:20 AM CDT 10 mLs sodium chloride 0.9% BOLUS 250 mL Intravenous, 250 mL, ONCE, On Fiona 02/11/24 at 1100, For 1 dose, Concomitant fluids.Indications:Malignant neoplasm of anterior wall of urinary bladder (H) $New Bag 02/11/2024 11:15 AM CDT 250 mL s documented in this encounter Care Teams Business Analyst Ecommerce Relationship Specialty Start Date End Date Votel, Bhavin Ford [address] [place] [address] PCP - General Family Medicine 12/28/23 Alvaro Clark MD [address] [place] [address] Assigned Surgical Provider 07/24/23 Ky Torres MD [address] [place] [address] Assigned Cancer Care Provider 01/22/24 documented as of this encounter
--- OUTSIDE RECORDS SUMMARY | 2024-04-07 22:22 | XMS_ITS | Clinical Summary ---
Author Organization [place] Address [address] [place] [address] Care Team Providers Care Tray Drier Operator Name Role Phone Alvaro Clark MD Unavailable Bhavin Gardner Primary Care Provider [phone] Ky Torres MD Unavailable [phone] Allergies Active Allergy Reactions Criticality Noted Date Comments Penicillins Nausea and Vomiting Medium 06/18/2023 Medications acetaminophen-c affeine (EXCEDRIN TENSION HEADACHE) 500-65 MG TABS Take 2 tablets by mouth every 6 hours as needed for mild pain (PRN HEADACHE) Active diphenhydrAMINE HCl (BENADRYL ALLERGY PO) Take 1 tablet by mouth as needed Active acetaminophen (TYLENOL) 325 MG tabletIndicatio ns:Postoperativ e state,Post-op pain Take 2 tablets (650 mg) by mouth every 4 hours as needed for other (For optimal non-opioid multimodal pain management to improve pain control.) 50 tablet 4 Active gabapentin (NEURONTIN) 100 MG capsuleIndicati ons:Postoperati ve state,Post-op pain Take 1 capsule (100 mg) by mouth 3 times daily as needed for other (post op pain) 14 capsule 4 Active methocarbamol (ROBAXIN) 750 MG tabletIndicatio ns:Postoperativ e state,Post-op pain Take 1 tablet (750 mg) by mouth every 6 hours as needed for muscle spasms 14 tablet 4 Active polyethylene glycol (MIRALAX) 17 GM/Dose powderIndicatio ns:Postoperativ e state Take 17 g by mouth daily 510 g 4 Active senna-docusate (SENOKOT-S/MARGARITA COLACE) 8.6-50 MG tabletIndicatio ns:Postoperativ e state Take 1 tablet by mouth 2 times daily 40 tablet 4 Active Active Problems Problem Noted Date Diagnosed Date Iron deficiency anemia due to chronic blood loss 02/10/2024 Small bowel obstruction 12/27/2023 Bladder cancer 12/22/2023 Cancer Staging:Pathologic stage from 01/15/2024:Stage IIIA(ypT4a, pN0, cM0) - Signed by Ky Torres MD on 01/18/2024 Urothelial cancer 09/06/2023 Lesion of bladder 07/10/2023 Encounters Date Type Department Care Team Description 03/24/2024 12:00 PM CDT Infusion Therapy Visit [address] [place] [address] Dylan Guerin PA Malignant neoplasm of anterior wall of urinary bladder (H) (Primary Dx); Iron deficiency anemia due to chronic blood loss 03/24/2024 Travel 03/23/2024 11:00 AM CDT Virtual Visit [place] [address] [address] [place] [address] Dylan Guerin PA Malignant neoplasm of anterior wall of urinary bladder (H) (Primary Dx) 03/15/2024 Telephone [place] [address] [place] [address] [place] [address] Dylan Guerin PA Symptoms 03/11/2024 Telephone [facility] [address] [address] Josh Clemens MD 02/11/2024 11:00 AM CDT Infusion Therapy Visit [place] [address] [place] [address] [place] [address] Ky Torres MD Malignant neoplasm of anterior wall of urinary bladder (H) (Primary Dx); Iron deficiency anemia due to chronic blood loss 02/10/2024 10:15 AM CDT Lab [address] [place] [address] Dylan Guerin PA Malignant neoplasm of anterior wall of urinary bladder (H) (Primary Dx) 02/10/2024 10:00 AM CDT Oncology Visit [address] [place] [address] Dylan Guerin PA 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); Iron deficiency anemia due to chronic blood loss 02/10/2024 Orders Only [address] [place] [address] Charlie Almonte RN Prostate cancer (H) (Primary Dx); Hypothyroidism due to medication 02/10/2024 Travel 02/05/2024 Telephone [facility] Urology [address] [phone] Alvaro Clark MD Call Back 02/05/[address] [place] [address] Ky Torres MD Symptoms 02/04/2024 Orders Only PHARMACY [address] [place] [phone] Sigrid Tadeo [facility] 01/25/2024 Telephone [facility] Urology [address] [phone] Alvaro Clark MD 01/22/[address] [facility] [place] [place] [address] Alvaro Clark MD Symptoms 01/18/[address] [facility] [place] [address] Alvaro Clark MD Patient/info Update 01/15/2024 12:40 PM CDT Lab [facility] [address] [place] [address] Urothelial cancer (H) 01/15/2024 11:30 AM CDT Oncology Visit [address] [facility] [place] [place] [address] Ky Torres MD Urothelial cancer (H) (Primary Dx); Prostate cancer (H); Malignant neoplasm of anterior wall of urinary bladder (H) 01/15/2024 10:30 AM CDT Office Visit [address] [facility] [place] [place] [address] Alvaro Clark MD Urothelial cancer (H) (Primary Dx); Urinary retention 01/15/[address] [facility] [place] [place] [address] Alvaro Clark MD Symptoms 01/15/2024 Travel 01/15/2024 Orders Only [address] [facility] [place] [place] [address] Charlie Almonte RN Urothelial cancer (H) (Primary Dx); 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) 01/13/2024 1:02 PM CDT - 01/13/2024 11:59 PM CDT Hospital Encounter [facility] [address] [place] [address] [place] [phone] Yessica Mcleod PA-C Urothelial cancer (H); 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) Discharge Disposition: Home or Self Care 01/13/2024 12:45 PM CDT Lab [facility] [address] [place] [phone] Alvaro Clark MD Urothelial cancer (H) 01/13/2024 Travel 01/07/[address] [facility] [place] [place] [phone] Alvaro Clark MD Medication Request from Last 3 Months Family History Medical [...] on file Legal Sex Male 4:18 PM SMOOTH [employer] B[employer] WORKER [employer]POSIT[employer] Gender Identity Not on file Sexual Orientation Not on file 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 file Last Filed Vital Signs [...] 12.8 oz) 024 12:10 PM CDT Height 170.2 cm (5' 7) 03/23/2024 10:3 1 AM CDT Body Mass Index 28.16 03/23/2024 10:31 AM CDT Plan of Treatment Upcoming Encounters Date Type Department Care Team (Late st Contact Info) Description 04/22/2024 10:15 AM [employer] Lab [address] [place] [address] Yessica Mcleod PA-C [address] [place] [address] 04/22/2024 11:00 AM [employer] Oncology Visit [address] [place] [address] Yessica Mcleod PA-C [address] [place] [address] Dylan Guerin PA 9 [place] [address] 04/22/2024 12:00 PM [employer] Infusion Therapy Visit [address] [place] [address] Ky Torres MD [address] [address] 05/02/2024 10:30 AM S[employer] WORKER [employer]POS[employer] Lab [place] [address] [place] [address] [place] [address] Ky Torres MD [address] [address] 05/02/2024 11:20 AM S[employer] Appointment [facility] Imaging [address] [address] [place] [address] Ky Torres MD 420 [facility] 480 [place] [address] 05/06/2024 10:00 AM S[employer] Oncology Visit [facility] [address] [place] [address] [facility] [place] [place] [address] Ky Torres MD 420 [facility] 480 [place] [address] 05/20/2024 11:00 AM S[employer] Infusion Therapy Visit [facility] [address] [place] [address] [place] [phone] Ky Torres MD 420 [facility] 480 [place] [address] 05/27/2024 9:45 AM [employer] Office Visit [address] [facility] [place] [address] Alvaro Clark MD 420 [facility] 394 [place], [place] [address] Health Maintenance Due Date Last Done Comments [...] , 11/25/2023, 10/21/2023, Additional history exists GLUCOSE 03/24/2027 03/24/2024, 01/30, 01/13/2024, Additional history exists DTAP/TDAP/TD IMMUNIZATION (4 - [...] this topic Medical Devices Implanted Type Area Bearing Grinder Device Identifier Shelf Expiration Date Model / Serial / Lot Port-08/28/2023 Implanted:Qty: 1 on 08/28/2023 by Pipe Hernandez MD Port Right: Chest Wall [id number] 07/29/2026 / / [id number] Stent Ureteral Radio Engineering Teacher Diversion 07fr [id number] - [id number] Implanted:Qty: 1 on 12/22/2023 by Alvaro Clark MD at [facility] Stent N/A: Abdomen [employer] [id number] 11/19/2026 [id number] / / [id number] Procedures Procedure Name Priority Date/Time Associated Diagnosis Comments CBC WITH PLATELETS & DIFFERENTIAL Routine 03/24/2024 12:04 PM CDT Malignant neoplasm of anterior wall of urinary bladder (H) CBC WITH PLATELETS AND DIFFERENTIAL Routine 03/24/2024 12:04 PM CDT Malignant neoplasm of anterior wall of urinary bladder (H) TSH WITH FREE T4 REFLEX Routine 03/24/2024 12:04 PM CDT Malignant neoplasm of anterior wall of urinary bladder (H) COMPREHENSIVE METABOLIC PANEL Routine 03/24/2024 12:04 PM CDT Malignant neoplasm of anterior wall of urinary bladder (H) MICROBIOLOGY ISOLATE REFERRAL Routine 03/11/2024 1:39 PM CDT CBC WITH PLATELETS & DIFFERENTIAL Routine 02/10/2024 [...] 01/13/2024 12:59 PM CDT Urothelial cancer (H) from Last 3 Months Results * (ABNORMAL) CBC with platelets and differential (03/24/2024 12:04 PM CDT) Only the most recent of4 resultswithin the time period is included. WBC Count 9.9 4.0 - 11.0 10e3/uL [...] LAB - BLOOD ORDERABLES Fin al Result [facility] [address] Lab (1st floor, no room number) [place] [address] * TSH with free T4 reflex (03/24/2024 12:04 PM CDT) Only the most recent of2 resultswithin the time period is included. TSH 3.81 0.30 - 4.20 uIU/mL 03/24/2024 12:34 PM CDT [facility] Blood BLOOD SPECIMEN / Unknown IVAD (Port) / Unknown 03/24/2024 12:04 PM CDT 03/24/2024 12:07 PM CDT us Dylan IBARRA LAB - BLOOD ORDERABLES Fin al Result LABORATORY [facility] [address] [facility] Lab (1st floor, no room number) [place] [phone] * Comprehensive metabolic panel (03/24/2024 12:04 PM CDT) Only the most recent of3 resultswithin the time period is included. Sodium 136 135 - 145 mmol/L 03/24/2024 12:27 PM CDT LABORATORY Potassium 4.2 3.4 - 5.3 mmol/L 03/24/2024 12:27 PM CDT LABORATORY Carbon Dioxide (CO2) 25 [...] 12:27 PM CDT [facility] Comment:eGFR calculated us2020 CKD-EPI equation. Calcium 9.2 8.8 - 10.4 [...] 0.2 <=1.2 mg/dL 03/24/2024 12:27 PM CDT LABORATORY Blood BLOOD SPECIMEN / Unknown IVAD (Port) / Unknown 03/24/2024 12:04 PM CDT 03/24/2024 12:07 PM CDT Dylan IBARRA LAB - BLOOD ORDERABLES Fin al Result LABORATORY [facility] [address] [facility] Lab (1st floor, no room number) [place] [address] * (ABNORMAL) Microbiology Isolate Referral (03/11/2024 1:39 PM CDT) Culture Streptococcus parasanguinis(A) DAGMAR 03/15/2024 11:41 AM CDT [facility] Comment:This organism is vernon ceptible to ampicillin, penicillin, vancomycin and the cephalosporins. If treatment is required and your patient is allergic to penicillin, contact the microbiology lab within 5 days to request susceptibility testing. Urine URINE SPECIMEN FROM URINARY CONDUIT / Unknown Non-blood Collection / Unknown 03/11/2024 1:39 PM CDT 03/14/2024 12:03 PM CDT Tammie Sterans MD LAB - MICRO GENERAL ORDERABLES F inal Result [facility] Inf. Diseases Diag. Lab [address] [facility] [place] [address], [facility] * Lactate Dehydrogenase (02/10/2024 10:23 AM CDT) Pathologist [facility] Lactate Dehydrogenase 163 0 - 250 U/L 02/10/2024 10:59 AM CDT LABORATORY Blood (Portacath) IVAD (Port) / Unknown 02/10/2024 10:23 AM CDT 02/10/2024 10:35 AM CDT Ky Torres MD LAB - BLOOD ORDERABLES Fin al Result LABORATORY [facility] [address] Lab (1st floor, no room number) [place] [address], [facility] * (ABNORMAL) Testosterone total (02/10/2024 10:23 AM CDT) [facility] Testosterone Total 69(L) 240 - 950 ng/dL 02/14/2024 7:01 AM CDT [facility] Blood (Portacath) IVAD (Port) / Unknown 02/10/2024 10:23 AM CDT 02/10/2024 10:35 AM CDT Ky Torres MD LAB - BLOOD ORDERABLES Fin al Result [facility] [address] [facility], [address] [place] [address], [facility] * PSA tumor marker (02/10/2024 10:23 AM CDT) [facility] PSA Tumor Marker 0.02 0.00 [...] methods or kits cannot be used interchangeably. us Ky Torres MD LAB - BLOOD ORDERABLES Fin al Result [facility] Lab [address] [facility], [address] [place] [address] * (ABNORMAL) Iron & Iron [...] AM CDT Dylan IBARRA LAB - BLOOD ORDERABLES Fin al Result [facility] [address] Lab (1st floor, no room number) [place] [address] * Ferritin (02/10/2024 10:23 AM CDT) Ferritin 186 31 - 409 ng/mL 02/10/2024 3:05 PM CDT [facility] Blood (Portacath) IVAD (Port) / Unknown 02/10/2024 10:23 AM CDT 02/10/2024 10:35 AM CDT Dylan IBARRA LAB - BLOOD ORDERABLES Fin al Result [facility] [address] [facility], Room [address] [address] * Vitamin B12 (02/10/2024 10:23 AM CDT) Vitamin B12 649 232 - 1,245 pg/mL 02/10/2024 3:01 PM CDT [facility] Blood (Portacath) IVAD (Port) / Unknown 02/10/2024 10:23 AM CDT 02/10/2024 10:35 AM CDT Dylan IBARRA LAB - BLOOD ORDERABLES Fin al Result [facility] [address] [facility], [address] [phone] [place] [address] * (ABNORMAL) Urine Culture (01/15/2024 1:11 PM [...] Clark MD LAB - MICRO GENERAL ORDERABLES F inal Result [facility] Inf. Diseases Diag. Lab [address] [facility] [place] [address] * CT Chest/Abdomen/Pelvis w Contrast (01/13/2024 1:26 [...] ZAVALETA MD Yessica Haynes PA-C IMG CT ORDERABL ES Final Result from Last 3 Months Insurance [employer] MEDICARE [employer] MEDICARE Advance Directives For more information, please contact: [phone] * Full Code (Latest Code Status on File) Date Activated Date Inactivated Comments 12/27/2023 5:11 AM 12/29/2023 3:34 PM All basic an d advanced life-sustaining interventions are performed as appropriate Question Answer Comments Code status determined by: Discussion with patie nt/ legal decision maker * Full Code Date Activated Date Inactivated Comments 12/22/2023 8:50 PM 12/25/2023 5:51 PM All basic an d advanced life-sustaining interventions are performed as appropriate Question Answer Comments Code status determined by: Discussion with patie nt/ legal decision maker Care Teams Tray Drier Operator Relationship Specialty Start Date End Date Votel, Bhavin Ford [address] [place] [address] PCP - General Family Medicine 12/28/23 Alvaro Clark MD [address] [place] [address] 394 [place], [place] [address] Assigned Surgical Provider 07/24/23 Ky Torres MD [address] [place] [address] 480 [place] [address] Assigned Cancer Care Provider 01/22/24
--- OUTSIDE RECORDS SUMMARY | 2024-04-07 22:22 | XMS_ITS | Encounter Summary ---
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 file documented as of this encounter Plan of Treatment Upcoming Encounters Date Type Department Care Team (Late st Contact Info) Description 04/22/2024 10:15 AM CONTROL CLERK SUBASSEMBLY Lab [facility] [address] [place] [phone] Yessica Mcleod PAJannetC [address]09 [place] [address] 04/22/2024 11:00 AM CONTROL CLERK SUBASSEMBLY Oncology Visit [address] [place] [address] Yessica Mcleod PA-C 909 [place] [address] Dylan Guerin PA 909 [place], [place] [address] 04/22/2024 12:00 PM CONTROL CLERK SUBASSEMBLY Infusion Therapy Visit [address] [place] [address] Ky Torres MD 420 [facility] 480 [place], [place] [address] 05/02/2024 10:30 AM CONTROL CLERK SUBASSEMBLY Lab [address] [place] [address] Ky Torres MD 420 [facility] 480 [place], [place] [address] 05/02/2024 11:20 AM CONTROL CLERK SUBASSEMBLY Appointment [facility] Imaging [address] [place] [address] Ky Torres MD 420 [facility] 480 [place], [place] [address] 05/06/2024 10:00 AM CONTROL CLERK SUBASSEMBLY Oncology Visit [address] [place] [address] Ky Torres MD 420 [facility] 480 [place], [place] [address] 05/20/2024 11:00 AM CONTROL CLERK SUBASSEMBLY Infusion Therapy Visit [address] [place] [address] Ky Torres MD [address] [place] [address] 05/27/2024 9:45 AM CONTROL CLERK SUBASSEMBLY Office Visit [address] [place] [address] Alvaro Clark MD [address] [place] [address] documented as of this encounter Visit Diagnoses Not on filedocumented in this encounter Care Teams Classer Relationship Specialty Start Date End Date VotelBhavin [address] [place] [address] PCP - General Family Medicine 12/28/23 Alvaro Clark MD [address] [place] [address] Assigned Surgical Provider 07/24/23 Ky Torres MD [address] [place] [address] Assigned Cancer Care Provider 01/22/24 documented as of this encounter
--- OUTSIDE RECORDS SUMMARY | 2024-04-07 22:22 | XMS_ITS | Encounter Summary ---
Author Organization [place] Address [address] [place] [address] Care Team Providers Care Kelp Or Seagrass Gatherer Name Role Phone Alvaro Clark MD Unavailable Bhavin Gardner Primary Care Provider [phone] Ky Torres MD Unavailable [phone] Reason for Visit * Reason Onset Date Comments Symptoms 02/05/2024 Encounter Details Date Type Department Care Team (Late st Contact Info) Description 02/05/2024 Telephone [facility] [address] [place] 200 [facility] [place] [address] Ky Torres MD 420 [facility] 480 [place] [address] Symptoms Social History Tobacco Use [...] on file Legal Sex Male 4:18 PM 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 TESTER Gender Identity Not on file Sexual Orientation [...] st Contact Info) Description 04/22/2024 10:15 AM [facility] [address] [place] [address] [place] [phone] Yessica Mcleod PAJose Luis 9 [place], [place] [address] 04/22/2024 11:00 AM KNITTING TESTER Oncology Visit [address] [place] [phone] Yessica Mcleod PA-C 909 [place] [address] Dylan Guerin PA 909 [place], [place] [address] 04/22/2024 12:00 PM KNITTING TESTER Infusion Therapy Visit [address] [place] [address] Ky Torres MD [address] [address] 05/02/2024 10:30 AM KNITTING TESTER Lab [address] [place] [address] Ky Torres MD [address] [address] 05/02/2024 11:20 AM KNITTING TESTER Appointment [facility] [address] [place] [address] [place] [phone] Ky Torres MD 420 [facility] 480 [place], [place] [address] 05/06/2024 10:00 AM KNITTING TESTER Oncology Visit [address] [place] [address] Ky Torres MD 420 [facility] 480 [place] [address] 05/20/2024 11:00 AM KNITTING TESTER Infusion Therapy Visit [address] [place] [address] Ky Torres MD [address] [address] 05/27/2024 9:45 AM KNITTING TESTER Office Visit [address] [place] [address] Alvaro Clark MD 420 [facility] 394 [place] [address] documented as of this encounter Visit Diagnoses Not on filedocumented in this encounter Care Teams Kelp Or Seagrass Gatherer Relationship Specialty Start Date End Date Votel, Bhavin Ford [address] [place] [address] PCP - General Family Medicine 12/28/23 Alvaro Clark MD [address] [place] [address] Assigned Surgical Provider 07/24/23 Ky Torres MD 420 [facility] 480 [place] [address] Assigned Cancer Care Provider 01/22/24 documented as of this encounter
--- OUTSIDE RECORDS SUMMARY | 2024-04-07 22:22 | XMS_ITS | Encounter Summary ---
Author Organization [facility] Address [address] [place] [address]. [place] [address] Care Team Providers Care Fire Observer Name Role Phone Alvaro Clark MD Unavailable Bhavin Gardner Primary Care Provider [phone] Ky Torres MD Unavailable [phone] Reason for Visit * Reason Comments RECHECK Encounter Details Date Type Department Care Team (Late st Contact Info) Description 03/23/2024 11:00 AM CDT Virtual Visit 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 He had urinary urgency andfrequency for the previous few weeks. He was noted to have urinary retention and blood in urine without any infection. He had a CT scan done in ED which showed decompressed bladder with parry and wasotherwise unremarkable. He then was seen by Carolina Arrieta in urology at [facility] and referred for cystoscopy. He had cystoscopy [...] for incidental prostate cancer. Interval History: Oleg is called today for follow-up. He missed his immunotherapy last week due to ED for UTI as well as a respiratory infection. He is now much improved. No fevers or breathing concerns. Urinary symptoms resolved, no bleeding and has good urine output without catheter. He denies any side effects from Nivo. Current Outpatient Medications Medication Sig Dispense Refill [...] date: 1979 Quit date: 2009 Years since quittin.8 Passive exposure: Past Smokeless tobacco: Never Substance Use Topics Alcohol use: Never Drug use: Never Past medical history and social history were reviewed. Physical Examination: Ht 1.702 m (5' 7) Wt 79.4 kg (175 lb) BMI 27.41 kg/m?? Wt Readings from Last 10 Encounters: 02/11/24 77.8 kg (171 lb 9.6 oz) 02/10/24 76.7 kg (169 lb 3.2 oz) 01/15/24 78.6 kg (173 lb 4.5 oz) 01/15/24 78.6 kg (173 lb 3.2 oz) 01/01/24 80.8 kg (178 lb 1.6 oz) 12/30/23 83.1 kg (183 lb 3.2 oz) 12/27/23 87.5 kg (192 lb 14.4 oz) 12/22/23 88 kg (194 lb 0.1 oz) 12/11/23 85.7 kg (189 lb) 11/27/23 86.5 kg (190 lb 11.2 oz) Unable to do physical exam 07/03 telephone visit. Well sounding in no distress. Normal speech and thought process. Good voice quality. No audible wheezing or cough. Laboratory Data: To be done with infusion tomorrow Assessment and Plan: # Muscle Invasive Urothelial Cancer S/p post neoadjuvant ddMVAC and cystoprostatectomy with neobladder [id number] disease *prostate stromainvolvement. Residual disease on pathology despite aggressive neoadjuvant chemotherapy. - Recommend adjuvant Nivolumab x 1 year. Started 02/11/24 - Tolerated cycle 1 well with no signs or symptoms of immunotoxicity - Plan for cycle 2 tomorrow 03/24/24 pending labs. Delayed due to infection, now recovered - Plan for treatment every 4 weeks with imaging in May # Prostate Cancer Incidental on pathology from cystoprostatectomy, [place] 3+ 4. - Will monitor PSA. Baseline 0.02 # Recurrent UTI Post Surgery Has completed multiple abx courses, was in ED mid March for recurrent symptoms, completing abx now - Will be seeing urology in May for follow-up. Will reach out to them for sooner appointment if he has more issues # Anemia Last chemotherapy October 2023, anemia is persistent so warrants further work-up - Iron studies concerning for DUKE with iron sat low at 7% - Will plan for Venofer x 3. First received 02/11/24 - Patient concerned about co-pay with infusion appointments. Will plan to do Venofer with his Nivolumab infusions. Will get 2nd dose tomorrow - Patient has never had a colonoscopy and is declining now. He is willing to do occult blood stool testing - If stool is positive for blood then would more strongly recommend EGD/colonoscopy - B12/folate WNL 25 minutes spent on the date of the encounter doing chart review, review of test results, interpretation of tests, patient visit, and documentation Dylan Guerin PA-C Department of Hematology and Oncology [facility] Physicians documented in this encounter Nursing Notes * Dejon Garland MA - 03/23/2024 11:00 AM CDT Current patient location: [address] [place] [address] [address] [place] [address] Is the patient currently in the state of [place]? YES Visit mode:TELEPHONE If the visit is dropped, the patient can be reconnected by: TELEPHONE VISIT: cell phone: Telephone Information: Will anyone else be joining the visit? NO (If patient encounters technical issues they should call [phone] :[phone]) Are changes needed to the allergy or medication list? No Patient denies any changes and states that all information remains accurate since last reviewed/verified. Are refills needed on medications prescribed by this physician? NO Rooming Documentation: Questionnaire(s) completed No other vitals to report today Reason for visit: RECHECK Dejon Garland MA VVF documented in this encounter Plan of Treatment Upcoming Encounters Date Type Department Care Team (Late st Contact Info) Description 04/22/2024 10:15 AM AVIATION ENGINEER Lab [address] [place] [address] Yessica Mcleod PA-C [address] [place], [place] [id number] 04/22/2024 11:00 AM AVIATION ENGINEER Oncology Visit [address] [place] [address] Yessica Mcleod PA-C [address] [place] [address]45 Dylan Guerin PA [address] [place], [place] [id number] 04/22/2024 12:00 PM AVIATION ENGINEER Infusion Therapy Visit [address] [place] [address] Ky Torres MD 420 [facility] [address] [place], [place] [address] 05/02/2024 10:30 AM AVIATION ENGINEER Lab [address] [place] [address] Ky Torres MD 420 [facility] [address] [place], [place] [id number] 05/02/2024 11:20 AM AVIATION ENGINEER Appointment [facility] Imaging [address] [place] [address] Ky Torres MD 420 [facility] [address] [place] [address] 05/06/2024 10:00 AM AVIATION ENGINEER Oncology Visit [address] 200 [facility] [place] [address] Ky Torres MD 420 [facility] [address] [place] [address] 05/20/2024 11:00 AM AVIATION ENGINEER Infusion Therapy Visit [facility] [address] [place] [address] Ky Torres MD [address] [address] 05/27/2024 9:45 AM AVIATION ENGINEER Office Visit [address] [place] 200 [facility] [place] [address] Alvaro Clark MD 420 [facility] [address] [place] [address] documented as of this encounter Visit Diagnoses Diagnosis Malignant neoplasm of anterior wall of urinary bladder (H)- Primary Malignant neoplasm of anterior wall of urinary bladder documented in this encounter Care Teams Fire Observer Relationship Specialty Start Date End Date Votel, Bhavin Ford [address] [place] [address] PCP - General Family Medicine 12/28/23 Alvaro Clark MD 420 [facility] [address] [place] [address] Assigned Surgical Provider 07/24/23 Ky Torres MD [address] [address] Assigned Cancer Care Provider 01/22/24 documented as of this encounter
--- OUTSIDE RECORDS SUMMARY | 2024-04-07 22:22 | XMS_ITS | Referral Summary ---
Author Organization [facility] Address [address] [place] [address] Care Team Providers Care Financial Compliance Manager Name Role Phone Alvaro Clark MD Unavailable Bhavin Gardner Primary Care Provider [phone] Ky Torres MD Unavailable [phone] Encounters Date Type Department Care Team Description 03/24/2024 Travel 03/24/2024 12:00 PM CDT Infusion Therapy Visit [facility] [address] [place] [address] Dylan Guerin PA Malignant neoplasm of anterior wall of urinary bladder (H) (Primary Dx); Iron deficiency anemia due to chronic blood loss 03/23/2024 11:00 AM CDT Virtual Visit [place] [address] 200 [facility] [place] [address] Dylan Guerin PA Malignant neoplasm of anterior wall of urinary bladder (H) (Primary Dx) 03/15/2024 Telephone [place] [address] 200 [facility] [place] [phone] Dylan Guerin PA Symptoms 03/11/2024 Telephone [facility] [address] 4th [place] [address] Josh Dupree MD 02/11/2024 11:00 AM CDT Infusion Therapy Visit [facility] [place] [address] [place] [address] Ky Torres MD Malignant neoplasm of anterior wall of urinary bladder (H) (Primary Dx); Iron deficiency anemia due to chronic blood loss 02/10/2024 10:15 AM CDT Lab [facility] [place] [address] [place] [address] Dylan Guerin PA Malignant neoplasm of anterior wall of urinary bladder (H) (Primary Dx) 02/10/2024 Orders Only [address] [place] [phone] Charlie Almonte RN Prostate cancer (H) (Primary Dx); Hypothyroidism due to medication 02/10/2024 Travel 02/10/2024 10:00 AM CDT Oncology Visit [address] [place] [address] Dylan Guerin PA 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); Iron deficiency anemia due to chronic blood loss 02/05/2024 Telephone [facility] Urology [address] [address] Alvaro Clark MD Call Back 02/05/[address] [place] [address] Ky Torres MD Symptoms 02/04/2024 Orders Only PHARMACY [address] [place] [phone] Sigrid Tadeo RPH 01/25/2024 Telephone [facility] [place] [address] [place] [address] Alvaro Clark MD 01/22/[address] [facility] [place] [address] Alvaro Clark MD Symptoms 01/18/[address] [facility] [place] [address] Alvaro Clark MD Patient/info Update 01/15/[address] [facility] [place] [address] Alvaro Clark MD Symptoms 01/15/2024 12:40 PM CDT Lab [facility] [address] [place] [address] Urothelial cancer (H) 01/15/2024 Travel 01/15/2024 Orders Only [address] [facility] [place] [address] Charlie Almonte RN Urothelial cancer (H) (Primary Dx); 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) 01/15/2024 11:30 AM CDT Oncology Visit [address] [facility] [place] [address] Ky Torres MD Urothelial cancer (H) (Primary Dx); Prostate cancer (H); Malignant neoplasm of anterior wall of urinary bladder (H) 01/15/2024 10:30 AM CDT Office Visit [address] [facility] [place] [address] Alvaro Clark MD Urothelial cancer (H) (Primary Dx); Urinary retention 01/13/2024 Travel 01/13/2024 1:02 PM CDT - 01/13/2024 11:59 PM CDT Hospital Encounter [facility] Imaging [address] [place] [place] [address] Yessica Mcleod PA-C Urothelial cancer (H); 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) Discharge Disposition: Home or Self Care 01/13/2024 12:45 PM CDT Lab [facility] [address] [place] [address] [address] [place] [address] Alvaro Clark MD Urothelial cancer (H) 01/07/[address] [facility] [place] [address] Alvaro Clark MD Medication Request from Last 3 Months Allergies Active Allergy [...] 17 g by mouth daily 510 g Active senna-docusate (SENOKOT-S/MARGARITA COLACE) 8.6-50 MG tabletIndicatio ns:Postoperativ e state Take 1 tablet by mouth 2 times daily 40 tablet Active Active Problems Problem Noted Date Diagnosed [...] on file 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 Gender Identity Not on file Sexual [...] st Contact Info) Description 04/22/2024 10:15 AM RECORDS SUPERVISOR Lab [address] [place] [address] Yessica Mcleod PA-C [address] [place] [address] 04/22/2024 11:00 AM RECORDS SUPERVISOR Oncology Visit [address] [place] [address] Yessica Mcleod PA-C [address] [place] [address] Dylan Guerin PA [address] [place], [place] [address] 04/22/2024 12:00 PM RECORDS SUPERVISOR Infusion Therapy Visit [address] [place] [address] Ky Torres MD [address] [address] 05/02/2024 10:30 AM RECORDS SUPERVISOR Lab [address] [place] [address] Ky Torres MD [address] [address] 05/02/2024 11:20 AM RECORDS SUPERVISOR Appointment [facility] Imaging [address] [place] [address] Ky Torres MD 420 [facility] [address] [place] [address] 05/06/2024 10:00 AM RECORDS SUPERVISOR Oncology Visit [address] [facility] [place] [address] Ky Torres MD 420 [facility] [address] [place] [address] 05/20/2024 11:00 AM RECORDS SUPERVISOR Infusion Therapy Visit [facility] [address] [place] [address] Ky Torres MD 420 [facility] [address] [place] [address] 05/27/2024 9:45 AM RECORDS SUPERVISOR Office Visit [address] [facility] [place] [address] Alvaro Clark MD 420 [facility] [address] [place] [address] Medical Devices Implanted Type Area Customer Service Technician Device Identifier Shelf Expiration Date Model / Serial / Lot Port-08/28/2023 Implanted:Qty: 1 on 08/28/2023 by Pipe Hernandez MD Port Right: Chest Wall [id number] 07/29/2026 / / [id number] Stent Ureteral Shotgun Shell Assembly Machine Adjuster Diversion 07fr [id number] - [id number] Implanted:Qty: 1 on 12/22/2023 by Alvaro Clark MD at [facility] Stent N/A: Abdomen [employer] [id number] 11/19/2026 [id number] / / [id number] Procedures Procedure Name Priority Date/Time Associated Diagnosis [...] - BLOOD ORDERABLES Fin al Result LABORATORY [facility] Acute Care Lab [address] Lab (1st floor, no room number) [place] [address] * TSH with free T4 reflex (03/24/2024 12:04 PM CDT) Only the most recent of2 resultswithin the time period is included. TSH 3.81 0.30 - 4.20 uIU/mL 03/24/2024 12:34 PM CDT [facility] LABORATORY Blood BLOOD SPECIMEN / Unknown IVAD (Port) / Unknown 03/24/2024 12:04 PM CDT 03/24/2024 12:07 PM CDT Dylan IBARRA LAB - BLOOD ORDERABLES Fin al Result [facility] Acute Care Lab [address] Lab (1st floor, no room number) [place] [address] * Comprehensive metabolic panel (03/24/2024 12:04 PM CDT) Only the most recent of3 resultswithin the time period is included. Sodium 136 135 - 145 mmol/L 03/24/2024 12:27 PM CDT [facility] LABORATORY Potassium 4.2 3.4 - 5.3 mmol/L 03/24/2024 12:27 PM CDT [facility] LAB[facility]ATORY Carbon Dioxide (CO2) 25 22 - 29 mmol/L 03/24/2024 12:27 PM CDT RH LABORATORY Anion Gap 11 [...] BLOOD ORDERABLES Fin al Result RH LABORATORY [facility] [address] Lab (1st floor, no room number) [place] [address], [facility] * (ABNORMAL) Microbiology Isolate Referral (03/11/2024 1:39 [...] PM CDT 03/14/2024 12:03 PM CDT Tammie Stearns MD LAB - MICRO GENERAL ORDERABLES F inal Result [facility] IDD LABORATORY [facility] Inf. Diseases Diag. Lab [address] [facility], [address] [place] [address], [facility] * Lactate Dehydrogenase (02/10/2024 10:23 AM CDT) Lactate Dehydrogenase 163 0 - 250 U/L 02/10/2024 10:59 AM CDT LABORATORY Blood (Portacath) IVAD (Port) / Unknown 02/10/2024 10:23 AM CDT 02/10/2024 10:35 AM CDT Ky Torres MD LAB - BLOOD ORDERABLES Fin al Result Performing Organization Address City/[facility]/ZIP Co de Phone Number LABORATORY [facility] Lab [address] Lab (1st floor, no room number) [place] [address], [facility] * (ABNORMAL) Testosterone total (02/10/2024 10:23 AM CDT) Testosterone Total 69(L) 240 - 950 ng/dL 02/14/2024 7:01 AM CDT [facility] Blood (Portacath) IVAD (Port) / Unknown 02/10/2024 10:23 AM CDT 02/10/2024 10:35 AM CDT Ky Torres MD LAB - BLOOD ORDERABLES Fin al Result [facility] 500 [facility], [address] [address] * PSA tumor marker (02/10/2024 10:23 AM CDT) [facility] PSA Tumor Marker 0.02 0.00 - 4.50 [...] - BLOOD ORDERABLES Fin al Result LABORATORY [facility] Core Lab 500 [facility], [address] [address] * (ABNORMAL) Iron & Iron Binding Capacity (02/10/2024 10:23 AM CDT) [facility] Iron 16(L) 61 - 157 ug/dL 02/10/2024 11:21 AM CDT RH LABORATORY Iron Binding Capacity 238(L) 240 - 430 ug/dL 02/10/2024 11:21 AM CDT LABORATORY Iron Sat Index 7(L) 15 - 46 % 02/10/2024 11:21 AM CDT LABORATORY Blood (Portacath) IVAD (Port) / Unknown 02/10/2024 10:23 AM CDT 02/10/2024 10:35 AM CDT Dylan IBARRA LAB - BLOOD ORDERABLES Fin al Result LABORATORY [facility] Lab [address] Lab (1st floor, no room number) [place] [address] * Ferritin (02/10/2024 10:23 AM CDT) Ferritin 186 31 - 409 ng/mL 02/10/2024 3:05 PM CDT [facility] LABORATORY Blood (Portacath) IVAD (Port) / Unknown 02/10/2024 10:23 AM CDT 02/10/2024 10:35 AM CDT Dylan IBARRA LAB - BLOOD ORDERABLES Fin al Result U LABORATORY [facility] [place] [facility] [address] [facility], [address] [address] * Vitamin B12 (02/10/2024 10:23 AM CDT) Vitamin B12 649 232 - 1,245 pg/mL 02/10/2024 3:01 PM CDT U LABORATORY Blood (Portacath) IVAD (Port) / Unknown 02/10/2024 10:23 AM CDT 02/10/2024 10:35 AM CDT Dylan IBARRA LAB - BLOOD ORDERABLES Fin al Result LABORATORY [facility] [place] [facility] Lab [address] [facility], [address] [address] * (ABNORMAL) Urine Culture (01/15/2024 1:11 PM [...] collection. ??Suggest repeat specimen if clinically indicated. us Alvaro Clark MD LAB - MICRO GENERAL ORDERABLES F inal Result [facility] IDD LABORATORY [facility] Inf. Diseases Diag. Lab [address] [facility], [address] [place] [address] * CT Chest/Abdomen/Pelvis w Contrast [...] KNOWLES MD Yessica Haynes PA-C IMG CT ORDERABL ES Final Result from Last 3 Months Insurance Power[employer] MEDICARE Power[employer] MEDICARE Advance Directives For more information, please contact: [phone] * Full Code (Latest Code Status on [...] patie nt/ legal decision maker Care Teams Financial Compliance Manager Relationship Specialty Start Date End Date VotelBhavin [address] [place] [address] PCP - General Family Medicine 12/28/23 Alvaro Clark MD 420 [facility] [address] [place], [place] [address] Assigned Surgical Provider 07/24/23 Ky Torres MD 420 [facility] [address] [place], [place] [address] Assigned Cancer Care Provider 01/22/24
--- OUTSIDE RECORDS SUMMARY | 2024-04-07 22:22 | XMS_ITS ---
Author Organization [facility] Address [address] [place] [address] Care Team Providers Care Energy Professional Name Role Phone Alvaro Clark MD Unavailable Bhavin Gardner Primary Care Provider [phone] Ky Torres MD Unavailable [phone] Active Problems Problem Noted Date Diagnosed Date [...] Medications Current Day (Day 1 , Cycle 3 - Planned for 04/21/2024) Next Day (Day 1, Cycle 4 - Planned for 05/19/2024) nivolumab (OPDIVO)nivolumab 480 mg in 100 mL [...] treatments are documented for this patient in [facility]. Treatments may have been administered in another system. Lifetime Dose Tracking * Chemical Lifetime Dose Automatic Entry Manual Entr y Doxorubicin 117.077 mg/m2 (240 mg) 117.077 mg/m2 (240 mg) 0 mg/m2 (0 mg) Total Air Kerma 2 mGy 2 mGy 0 mGy Fluoro Time 0.3 Minutes 0.3 Minutes 0 Minutes
--- OUTSIDE RECORDS SUMMARY | 2024-04-07 22:22 | XMS_ITS | Encounter Summary ---
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 Gender Identity Not on file Sexual Orientation Not on file 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 file documented as of this encounter Plan of Treatment Upcoming Encounters Date Type Department Care Team (Late st Contact Info) Description 04/22/2024 10:15 AM INSOLE CHANNELER Lab [facility] [address] [place] [address] Yessica Mcleod PA-C 909 [place] [address] 04/22/2024 11:00 AM INSOLE CHANNELER Oncology Visit [address] 200 [place] [address] Yessica Mcleod PA-C 9 [place] [address] Dylan Guerin PA 909 [place], [place] [address] 04/22/2024 12:00 PM INSOLE CHANNELER Infusion Therapy Visit [address] [place] [address] Ky Torres MD [address] [address] 05/02/2024 10:30 AM INSOLE CHANNELER Lab [address] 200 [place] [address] Ky Torres MD [address] [address] 05/02/2024 11:20 AM INSOLE CHANNELER Appointment [facility] Center Imaging [address] [place] [address] [place] [address] Ky Torres MD [address] [address] 05/06/2024 10:00 AM INSOLE CHANNELER Oncology Visit [address] [place] [address] Ky Torres MD 420 [facility] [address] [place] [address] 05/20/2024 11:00 AM INSOLE CHANNELER Infusion Therapy Visit [facility] [address] [place] [address] Ky Torres MD 420 [facility] [address] [place], [place] [address] 05/27/2024 9:45 AM INSOLE CHANNELER Office Visit [address] 200 [place] [address] Alvaro Clark MD 420 [facility] [address] [place], [place] [address] documented as of this encounter Results * TSH with free T4 reflex (02/10/2024 10:23 AM CDT) TSH 2.32 0.30 - 4.20 uIU/mL 02/10/2024 11:05 AM CDT LABORATORY Blood (Portacath) IVAD (Port) / Unknown 02/10/2024 10:23 AM CDT 02/10/2024 10:35 AM CDT Ky Torres MD LAB - BLOOD ORDERABLES Fin al Result LABORATORY [facility] Acute [facility] Lab [address] Lab (1st floor, no room number) [place] [address], [facility] * Lactate Dehydrogenase (02/10/2024 10:23 AM CDT) Lactate Dehydrogenase 163 0 - 250 U/L 02/10/2024 10:59 AM CDT LABORATORY Blood (Portacath) IVAD (Port) / Unknown 02/10/2024 10:23 AM CDT 02/10/2024 10:35 AM CDT Ky Torres MD LAB - BLOOD ORDERABLES Fin al Result LABORATORY [facility] Lab [address] Lab (1st floor, no room number) [place] [address], [facility] documented in this encounter Visit Diagnoses Diagnosis Prostate cancer (H)- Primary Malignant neoplasm of prostate Hypothyroidism due to medication documented in this encounter Care Teams Equipment Maintenance Superintendent Relationship Specialty Start Date End Date Votel, Bhavin Ford [address] [place] [address] PCP - General Family Medicine 12/28/23 Alvaro Clark MD 420 [facility] [address] [place], [place] [address] Assigned Surgical Provider 07/24/23 Ky Torres MD 420 [facility] [address] [place], [place] 6[address] Assigned Cancer Care Provider 01/22/24 documented as of this encounter
--- OUTSIDE RECORDS SUMMARY | 2024-04-07 22:22 | XMS_ITS | Encounter Summary ---
Author Organization [place] Address [address] [place] [address]. [place] [address] Care Team Providers Care Customer Advisor Name Role Phone Alvaro Clark MD Unavailable Bhavin Gardner Primary Care Provider [phone] Ky Torres MD Unavailable [phone] Reason for Visit * Reason Comments Oncology Clinic Visit Encounter Details Date Type Department Care Team (Latest Contact Info) Description 02/10/2024 10:00 AM CDT Oncology Visit [facility] [id number] [place] [address] DAISY 200 [facility] [place] [address] Dylan Guerin PA [address] [place] [address] 946[address] 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); Iron [...] on file Legal Sex Male 4:18 PM CNS Gender Identity Not on file Sexual Orientation [...] Oleg presented with urinary retention to the [place] [facility] on 05/26/23. He had urinary urgency andfrequency for the previous few weeks. He was noted to have urinary retention and blood in urine without any infection. He had a CT scan done in ED which showed decompressed bladder with parry and wasotherwise unremarkable. He then was seen by Carolina Arrieta in urology at [facility] and referred for cystoscopy. 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 Pharmacy name entered into [employer]: [place], [place] - [address] [facility] Frailty Screening: Is the patient here for a new oncology consult visit in cancer care? 2. No Clinical concerns: Follow up Veronica Hidalgo MA documented in this encounter Plan of Treatment Upcoming Encounters Date Type Department Care Team (Late st Contact Info) Description 04/22/2024 10:15 AM CNS Lab [facility] [place] [facility] [address] [place] [address] Yessica Mcleod PA-C 909 [place] [address] 04/22/2024 11:00 AM CNS Oncology Visit [address] 200 [place] [address] Yessica Mcleod PA-C 909 [place], [place] [address] Dylan Guerin PA 909 [place] [address] 04/22/2024 12:00 PM CNS Infusion Therapy Visit [address] 200 [place] [address] Ky Torres MD [address] 8937[address] 05/02/2024 10:30 AM CNS Lab [address] [place] [address] Ky Torres MD [address] [address] 05/02/2024 11:[address] [facility] Imaging [address] [place] [address] [place] [address] Ky Torres MD 420 [facility] 480 [place] [address] 05/06/2024 10:00 AM CNS Oncology Visit [address] 200 [facility] [place] [address] Ky Torres MD 420 [facility] 480 [place] [address] 05/20/2024 11:00 AM CNS Infusion Therapy Visit [facility] [address] [place] [address] Ky Torres MD 420 [facility] 480 [place] [address] 05/27/2024 9:45 AM CNS Office Visit [address] 200 [facility] [place] [address] Alvaro Clark MD 420 [facility] 394 [place], [place] [address] Scheduled Orders Name Type Priority Associated Diagnoses [...] - BLOOD ORDERABLES Fin al Result LABORATORY [facility] [place] Core Lab [address] [facility], Room [address] [id number] * Ferritin (02/10/2024 10:23 AM CDT) Pathologist [facility] Ferritin 186 31 - 409 ng/mL 02/10/2024 3:05 PM CDT U LABORATORY Blood (Portacath) IVAD (Port) / Unknown 02/10/2024 10:23 AM CDT 02/10/2024 10:35 AM CDT Dylan IBARRA LAB - BLOOD ORDERABLES Fin al Result LABORATORY [facility] Core Lab [address] [facility], Room 3[place] [phone] * (ABNORMAL) Iron & Iron Binding Capacity (02/10/2024 10:23 AM CDT) Pathologist [facility] Iron 16(L) 61 - 157 ug/dL 02/10/2024 11:21 AM CDT RH LABORATORY Iron Binding Capacity 238(L) 240 - 430 ug/dL 02/10/2024 11:21 AM CDT RH LABORATORY Iron Sat Index 7(L) 15 - 46 % 02/10/2024 11:21 AM CDT RH LABORATORY Blood (Portacath) IVAD (Port) / Unknown 02/10/2024 10:23 AM CDT 02/10/2024 10:35 AM CDT us Dylan IBARRA LAB - BLOOD ORDERABLES Fin al Result [facility] Acute Care Lab [address] Lab (1st floor, no room number) [place] [address], [facility] documented in this encounter Visit Diagnoses Diagnosis Anemia in neoplastic disease- Primary Iron deficiency anemia due to chronic blood loss Iron deficiency anemia secondary to blood loss (chronic) documented in this encounter Care Teams Customer Advisor Relationship Specialty Start Date End Date Votel, Bhavin Ford [address] [place] [address] PCP - General Family Medicine 12/28/23 Alvaro Clark MD 420 [facility] 394 [place], [place] [address] Assigned Surgical Provider 07/24/23 Ky Torres MD 420 [facility] [address] [place], [place] [address] Assigned Cancer Care Provider 01/22/24 documented as of this encounter
--- OUTSIDE RECORDS SUMMARY | 2024-04-07 22:23 | XMS_ITS | Encounter Summary ---
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 He had no UTI symptoms but had a rash on his hand that he wanted to follow up on.Pt was given nursetriage number [phone]. documented in this encounter Plan of Treatment Upcoming Encounters Date Type Department Care Team (Late st Contact Info) Description 04/22/2024 10:15 AM CLIENT TECHNICAL PROFESSIONAL Lab [address] [place] [address] Yessica Mcleod PA-C [address] [place] [address] 04/22/2024 11:00 AM CLIENT TECHNICAL PROFESSIONAL Oncology Visit [address] [place] [address] Yessica Mcleod PA-C [address] [place] [address] Dylan Guerin PA 9 [place], [place] [phone] 04/22/2024 12:00 PM CLIENT TECHNICAL PROFESSIONAL Infusion Therapy Visit [address] [place] [address] Ky Torres MD [address] [place] [address] 9[address] 05/02/2024 10:30 AM CLIENT TECHNICAL PROFESSIONAL Lab [address] [place] [address] Ky Torres MD 420 [facility] 480 [place], [place] [address] 05/02/2024 11:20 AM CLIENT TECHNICAL PROFESSIONAL Appointment [facility] Imaging [address] [place] [address] [place] [address] Ky Torres MD 420 [facility] 480 [place] [address] 05/06/2024 10:00 AM CLIENT TECHNICAL PROFESSIONAL Oncology Visit [address] 200 [facility] [place] [address] Ky Torres MD 420 [facility] 480 [place] [address] 05/20/2024 11:00 AM CLIENT TECHNICAL PROFESSIONAL Infusion Therapy Visit [facility] [address] [place] [address] 200 [place] [address] Ky Torres MD [address] [address] 05/27/2024 9:45 AM CLIENT TECHNICAL PROFESSIONAL Office Visit [address] 200 [facility] [place] [place] [address] Alvaro Clark MD 420 [facility] 394 [place] [address] documented as of this encounter Visit Diagnoses Not on filedocumented in this encounter Care Teams Group Captain Relationship Specialty Start Date End Date Votel, Bhavin Ford [address] [place] [address] PCP - General Family Medicine 12/28/23 Alvaro Clark MD [address] [address] Assigned Surgical Provider 07/24/23 Ky Torres MD [address] 3174[address] Assigned Cancer Care Provider 01/22/24 documented as of this encounter
--- OUTSIDE RECORDS SUMMARY | 2024-04-07 22:23 | XMS_ITS | Encounter Summary ---
Author Organization [place] Address [address] [place] [address] Care Team Providers Care Marine Fuel Dock Attendant Name Role Phone Alvaro Clark MD Unavailable Yessica Mcleod PA-C Unavailable Bhavin Gardner Primary Care Provider [phone] Reason for Visit * Reason Onset Date Comments Symptoms 01/15/2024 Encounter Details Date Type Department Care Team (Late st Contact Info) Description 01/15/2024 Telephone [facility] [place] [address] [place] [address] DAISY 200 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 Faxed confirmed via [employer] 01/18/24 Charlie Almonte RN, BSN. RN Doctor Of Osteopathy [facility] documented in this encounter Plan of Treatment Upcoming Encounters Date Type Department Care Team (Late st Contact Info) Description 04/22/2024 10:15 AM CHEMICAL RADIATION TECHNICIAN Lab [address] [place] [address] Yessica Mcleod PA-C [address] [place] [address]29[address] 04/22/2024 11:00 AM CHEMICAL RADIATION TECHNICIAN Oncology Visit [place] [address] [place] [address] [place] [address] Yessica Mcleod PA-C [address] [place] [address]67[address] Dylan Guerin PA [address] [place] [address] 04/22/2024 12:00 PM CHEMICAL RADIATION TECHNICIAN Infusion Therapy Visit [address] [place] [address] Ky Torres MD [address] [address]54[address] 05/02/2024 10:30 AM CHEMICAL RADIATION TECHNICIAN Lab [address] [place] [address] Ky Torres MD 420 [facility] 480 [place] [address] 05/02/2024 11:20 AM CHEMICAL RADIATION TECHNICIAN Appointment [facility] Imaging [address] [place] [address] [place] [address] Ky Torres MD 420 [facility] 480 [place], [place] [address] 05/06/2024 10:00 AM CHEMICAL RADIATION TECHNICIAN Oncology Visit [address] [place] [address] Ky Torres MD 420 [facility] [address] [place] [address] 05/20/2024 11:00 AM CHEMICAL RADIATION TECHNICIAN Infusion Therapy Visit [address] [place] [address] Ky Torres MD [address] [address] 05/27/2024 9:45 AM CHEMICAL RADIATION TECHNICIAN Office Visit [address] [place] [address] Alvaro Clark MD 420 [facility] 394 [place], [place] [address] documented as of this encounter Visit Diagnoses Not on filedocumented in this encounter Care Teams Marine Fuel Dock Attendant Relationship Specialty Start Date End Date Votel, Bhavin Ford [address] [place] [address] PCP - General Family Medicine 12/28/23 Alvaro Clark MD [address] [place] [address] 129065 Assigned Surgical Provider 07/24/23 Yessica Mcleod PA-C [address] [place] [address] 70[address]75 Assigned Cancer Care Provider 12/22/23 01/21/24 documented as of this encounter
--- OUTSIDE RECORDS SUMMARY | 2024-04-07 22:23 | XMS_ITS | Encounter Summary ---
Author Organization [place] Address [address] [place] [address] Care Team Providers Care Wine Consultant Name Role Phone Alvaro Clark MD Unavailable Yessica Mcleod PA-C Unavailable Bhavin Gardner Primary Care Provider [phone] Reason for Visit * Reason Onset Date Comments Medication Request 01/07/2024 Encounter Details Date Type Department Care Team (Late st Contact Info) Description 01/07/2024 Telephone [facility] [address] [place] [address] DAISY 200 [facility] [place] [address] Alvaro Clark MD [address] [facility] [address] [place] [address] Medication Request Social History Tobacco [...] on file Legal Sex Male 4:18 PM 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 He talked with [facility] in [place] and was told that new Rx would [...] st Contact Info) Description 04/22/2024 10:15 AM PATROL OFFICER Lab [address] [place] [address] Yessica Mcleod PA-C 903 [place], [place] [phone] 04/22/2024 11:00 AM PATROL OFFICER Oncology Visit [address] [place] [address] Yessica Mcleod PA-C 908 [place], [place] [phone] Dylan Guerin PA 909 [place], [place] [phone] 04/22/2024 12:00 PM PATROL OFFICER Infusion Therapy Visit [address] [place] [address] Ky Torres MD [address] [place] [address] 05/02/2024 10:30 AM PATROL OFFICER Lab [address] [place] [address] Ky Torres MD 420 [facility] [address] [place] [address] 05/02/2024 11:20 AM PATROL OFFICER Appointment [facility] Imaging [address] [place] [address] [place] [address] Ky Torres MD 420 [facility] 480 [place] [address] 05/06/2024 10:00 AM PATROL OFFICER Oncology Visit [address] [place] [address] Ky Torres MD 420 [facility] [address] [place] [address] 05/20/2024 11:00 AM PATROL OFFICER Infusion Therapy Visit [address] [place] [address] Ky Torres MD 420 [facility] [address] [place] [address] 05/27/2024 9:45 AM PATROL OFFICER Office Visit [address] [place] [address] Alvaro Clark MD [address] [facility] 394 [place], [place] [address] documented as of this encounter Visit Diagnoses Not on filedocumented in this encounter Care Teams Wine Consultant Relationship Specialty Start Date End Date Votel, Bhavin Ford [address] [place] [address] PCP - General Family Medicine 12/28/23 Alvaro Clark MD [address] [place] [address] Assigned Surgical Provider 07/24/23 Yessica Mcleod PA-C [address] [place] [address] 703205 Assigned Cancer Care Provider 12/22/23 01/21/24 documented as of this encounter
--- OUTSIDE RECORDS SUMMARY | 2024-04-07 22:23 | XMS_ITS | Encounter Summary ---
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 Medical Ctr [facility] [address] [place] [address] [place] [address] Yessica Mcleod PA-C 909 [place] [address] 04/22/2024 11:00 AM HYDRAULIC PRESS SERVICER Oncology Visit [address] [place] [address] Yessica Mcleod PA-C 909 [place] [address] Dylan Guerin PA 909 [place], [place] [address] 04/22/2024 12:00 PM HYDRAULIC PRESS SERVICER Infusion Therapy Visit [address] [place] [address] Ky Torres MD [address] [address] 05/02/2024 10:30 AM HYDRAULIC PRESS SERVICER Lab [place] [address] [place] [address] [place] [address] Ky Torres MD [address] [address] 05/02/2024 11:20 AM HYDRAULIC PRESS SERVICER Appointment [facility] Imaging [address] [place] [address] [place] [address] Ky Torres MD [address] [address] 05/06/2024 10:00 AM HYDRAULIC PRESS SERVICER Oncology Visit [place] [address] [address] [place] [address] Ky Torres MD 420 [facility] 480 [place] [address] 05/20/2024 11:00 AM HYDRAULIC PRESS SERVICER Infusion Therapy Visit [facility]tr [address] [place] [address] Ky Torres MD 420 [facility] 480 [place] [address] 05/27/2024 9:45 AM HYDRAULIC PRESS SERVICER Office Visit [address] 200 [facility] [place] [address] Alvaro Clark MD 420 [facility] 394 [place] [address] documented as of this encounter Procedures Procedure [...] ORDERABLES F inal Result [facility] IDD LABORATORY [facility] Inf. Diseases Diag. Lab 500 [facility], Room [address] [place] [address] * (ABNORMAL) CBC with platelets and [...] 12:50 PM CDT 01/15/2024 12:50 PM CDT us Alvaro Clark MD LAB - BLOOD ORDERABLES Final Res ult RH LABORATORY [facility] Acute Care Lab [address] Lab (1st floor, no room number) [place] [address] documented in this encounter Visit Diagnoses Diagnosis Urothelial cancer (H) Malignant neoplasm of other specified sites of urinary organs documented in this encounter Care Teams Executive Administrative Assistant Relationship Specialty Start Date End Date Votel, Bhavin Ford 1400 [place] [address] PCP - General Family Medicine 12/28/23 Alvaro Clark MD [address] [place] [address]86305 Assigned Surgical Provider 07/24/23 Yessica Mcleod PA-C [address] [place] [address] 013015 Assigned Cancer Care Provider 12/22/23 01/21/24 documented as of this encounter
--- OUTSIDE RECORDS SUMMARY | 2024-04-07 22:23 | XMS_ITS | Encounter Summary ---
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 file documented as of this encounter Plan of Treatment Upcoming Encounters Date Type Department Care Team (Late Contact Info) Description 04/22/2024 10:15 AM WALL WORKER [facility] [address] [place] [phone] Yessica Mcleod, PA-C 9 [place] [address] 04/22/2024 11:00 AM WALL WORKER Oncology Visit [address] [place] [address] Yessica Mcleod PA-C 909 [place] [address] Dylan Guerin PA 909 [place] [address] 04/22/2024 12:00 PM WALL WORKER Infusion Therapy Visit [address] [place] [address] Ky Torres MD [address] [address] 05/02/2024 10:30 AM WALL WORKER Lab [address] [place] [address] Ky Torres MD [address] [address] 05/02/2024 11:20 AM WALL WORKER [address]oint[address] [facility] Imaging [address] [place] [address] Ky Torres MD [address] [address] 05/06/2024 10:00 AM WALL WORKER Oncology [place] [address] [place] [address] Ky Torres MD [address] [address] 05/20/2024 11:00 AM WALL WORKER Infusion Therapy Visit [address] [place] [address] Ky Torres MD [address] [address] 05/27/2024 9:45 AM WALL WORKER Office Visit [address] [place] [address] Alvaro Clark MD [address] [place] [address] documented as of this encounter Visit Diagnoses Not on filedocumented in this encounter Care Teams Health Policy Nurse Relationship Specialty Start Date End Date Votel, Bhavin Ford [address] [place] [address] PCP - General Family Medicine 12/28/23 Alvaro Clark MD [address] [place] [address] Assigned Surgical Provider 07/24/23 Ky oTrres MD [address] [address] Assigned Cancer Care Provider 01/22/24 documented as of this encounter
--- OUTSIDE RECORDS SUMMARY | 2024-04-07 22:23 | XMS_ITS | Encounter Summary ---
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 file documented as of this encounter Plan of Treatment Upcoming Encounters Date Type Department Care Team (Late st Contact Info) Description 04/22/2024 10:15 AM TUBULAR STOCK GLASS BULB MACHINE FORMER Lab [facility] [address] [place] [address] Yessica Mcleod PA-C 909 [place] [address] 04/22/2024 11:00 AM TUBULAR STOCK GLASS BULB MACHINE FORMER Oncology Visit [address] [place] [address] Yessica Mcleod PA-C 909 [place] [address] Dylan Guerin PA 909 [place], [place] [address] 04/22/2024 12:00 PM TUBULAR STOCK GLASS BULB MACHINE FORMER Infusion Therapy Visit [address] [place] [address] Ky Torres MD [address] [address] 05/02/2024 10:30 AM TUBULAR STOCK GLASS BULB MACHINE FORMER Lab [address] [place] [address] Ky Torres MD [address] 6[address] 05/02/2024 11:20 AM TUBULAR STOCK GLASS BULB MACHINE FORMER Appointment [facility] Imaging [address] [place] [address] Ky Torres MD [address] [place] [address] [facility] 480 [place], [place] [address] 05/06/2024 10:00 AM TUBULAR STOCK GLASS BULB MACHINE FORMER Oncology Visit [address] [place] [address] Ky Torres MD [address] [place] [address] 244658 [phone] 05/20/2024 11:00 AM TUBULAR STOCK GLASS BULB MACHINE FORMER Infusion Therapy Visit [address] [place] [address] Ky Torres MD [address] [address] 05/27/2024 9:45 AM TUBULAR STOCK GLASS BULB MACHINE FORMER Office Visit [address] [place] [address] Alvaro Clark MD [address] [place] [address] documented as of this encounter Visit Diagnoses Not on filedocumented in this encounter Care Teams Salvage Winder Relationship Specialty Start Date End Date VotelBhavin [address] [place] [address] PCP - General Family Medicine 12/28/23 Alvaro Clark MD [address] [place] [address] Assigned Surgical Provider 07/24/23 Yessica Mcleod PA-C [address] [place] [address] Assigned Cancer Care Provider 12/22/23 01/21/24 documented as of this encounter
--- OUTSIDE RECORDS SUMMARY | 2024-04-07 22:23 | XMS_ITS | Encounter Summary ---
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 file documented as of this encounter Plan of Treatment Upcoming Encounters Date Type Department Care Team (Late st Contact Info) Description 04/22/2024 10:15 AM TWIST TESTER Lab [facility] [address] [place] [address] Yessica Mcleod PA-C 909 [place] [address] 04/22/2024 11:00 AM TWIST TESTER Oncology Visit [address] [place] [address] Yessica Mcleod PA-C 909 [place] [address] Dylan Guerin PA 909 [place], [place] [address] 04/22/2024 12:00 PM TWIST TESTER Infusion Therapy Visit [address] [place] [address] Ky Torres MD [address] 588[address] 05/02/2024 10:30 AM TWIST TESTER Lab [address] [place] [address] Ky Torres MD [address] [address] 05/02/2024 11:20 AM TWIST TESTER Appointment [facility] Imaging [address] [place] [address] Ky Torres MD [address] [place] [address] [facility] 480 [place], [place] 9[address] 05/06/2024 10:00 AM TWIST TESTER Oncology Visit [address] [place] [address] Ky Torres MD [address] [place] [address] 756[address] [phone] 05/20/2024 11:00 AM TWIST TESTER Infusion Therapy Visit [address] [place] [address] Ky Torres MD [address] [address] 05/27/2024 9:45 AM TWIST TESTER Office Visit [address] [place] [address] Alvaro Clark MD [address] [place] [address] documented as of this encounter Visit Diagnoses Not on filedocumented in this encounter Care Teams Deli Worker Relationship Specialty Start Date End Date VotelBhavin 1400 [place] [address] PCP - General Family Medicine 12/28/23 Alvaro Clark MD [address] [place] [address] Assigned Surgical Provider 07/24/23 Yessica Mcleod PA-C [address] [place] [address] Assigned Cancer Care Provider 12/22/23 01/21/24 documented as of this encounter
--- OUTSIDE RECORDS SUMMARY | 2024-04-07 22:23 | XMS_ITS | Encounter Summary ---
Author Organization [facility] Address [address] [place] [address] Care Team Providers Care Reach Truck Operator Name Role Phone Alvaro Clark MD Unavailable Bhavin Gardner Primary Care Provider [phone] Ky Torres MD Unavailable [phone] Reason for Visit * Reason Onset Date Comments Symptoms 01/22/2024 Encounter Details Date Type Department Care Team (Late st Contact Info) Description 01/22/[address] 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 States that he was seen in [place] today. Provider who saw pt felt that [...] with plan and will be seen in [place]. Patient verbalized understanding and agreement with plan. Patient was instructed to call the clinicwith any questions, concerns, or worsening symptoms. Will route update to care team. Jami Oseguera RN on 01/22/2024 at 10:44 AM documented in this encounter Plan of Treatment Upcoming Encounters Date Type Department Care Team (Late st Contact Info) Description 04/22/2024 10:15 AM DUMPING MACHINE OPERATOR Lab [facility] [place] [address] [place] [phone] Yessica Mcleod PA-C [address] [place] [address] 04/22/2024 11:00 AM DUMPING MACHINE OPERATOR Oncology Visit [address] [facility] [place] [address] Yessica Mcleod PA-C [address] [place] [address] Dylan Guerin PA 909 [place], [place] 2[address] 04/22/2024 12:00 PM DUMPING MACHINE OPERATOR Infusion Therapy Visit [address] [place] [address] Ky Torres MD [address] [place] [address] [facility] 480 [place] [address] 05/02/2024 10:30 AM DUMPING MACHINE OPERATOR Lab [address] [place] [address] Ky Torres MD [address] [place] [address] [facility] 480 [place] [address] 05/02/2024 11:20 AM DUMPING MACHINE OPERATOR Appointment [facility] Imaging [address] [place] [address] Ky Torres MD [address] [place] [address] [facility] 480 [place] [address] 05/06/2024 10:00 AM DUMPING MACHINE OPERATOR Oncology Visit [address] [place] [address] Ky Torres MD [address] [place] [address] [facility] 480 [place] [address] 05/20/2024 11:00 AM DUMPING MACHINE OPERATOR Infusion Therapy Visit [address] [place] [address] Ky Torres MD [address] [place] [address] [facility] 480 [place] [address] 05/27/2024 9:45 AM DUMPING MACHINE OPERATOR Office Visit [facility] [address] [address] [facility] [place] [address] Alvaro Clark MD [address] [place] [address] documented as of this encounter Visit Diagnoses Not on filedocumented in this encounter Care Teams Reach Truck Operator Relationship Specialty Start Date End Date VotelBhavin [address] [place] [address] PCP - General Family Medicine 12/28/23 Alvaro Clark MD [address] [place] [address] Assigned Surgical Provider 07/24/23 Ky Torres MD [address] [place] [address] Assigned Cancer Care Provider 01/22/24 documented as of this encounter
--- OUTSIDE RECORDS SUMMARY | 2024-04-07 22:23 | XMS_ITS | Encounter Summary ---
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 Gender Identity Not on file Sexual Orientation Not on file 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 file documented as of this encounter Miscellaneous Notes * Addendum Note - Charlie Almonte, CARLOS - 01/15/2024 10:21 AM CDTAddended by: CHARLIE ALMONTE on: 01/15/2024 11:28 AM Modules accepted: Orders documented in this encounter Plan of Treatment Upcoming Encounters Date Type Department Care Team (Late st Contact Info) Description 04/22/2024 10:15 AM FARM HAND Lab [address] [place] [address] Yessica Mcleod PA-C 9 [place], [place] [address]135 04/22/2024 11:00 AM FARM HAND Oncology Visit [address] [place] [address] Yessica Mcleod PA-C 9 [place], [place] 15[address] Dylan Guerin PA 909 [place], [place] [address] 04/22/2024 12:00 PM FARM HAND Infusion Therapy Visit [address] [place] [address] Ky Torres MD [address] [address] 05/02/2024 10:30 AM FARM HAND Lab [address] [place] [address] Ky Torres MD [address] [address] 05/02/2024 11:20 AM FARM HAND Appointment [facility] Imaging [address] [place] [address] Ky Torres MD 420 [place] 480 [place] [address] 05/06/2024 10:00 AM FARM HAND Oncology Visit [address] 200 [facility] [place] [address] Ky Torres MD 420 [facility] 480 [place] [address] 05/20/2024 11:00 AM FARM HAND Infusion Therapy Visit [facility] [address] [place] [address] [address] [place] [address] Ky Torres MD [address] [place] [address] 480 [place] [address] 05/27/2024 9:45 AM FARM HAND Office Visit [address] 200 [facility] [place] [address] Alvaro Clark MD 420 [facility] 394 [place], [place] 3833[address] Scheduled Orders Name Type Priority Associated Diagnoses [...] bladder documented in this encounter Care Teams Anodize Machine Operator Relationship Specialty Start Date End Date Votel, Bhavin Ford [address] [place] [address] PCP - General Family Medicine 12/28/23 Alvaro Clark MD [address] [place] [address] 676765 Assigned Surgical Provider 07/24/23 Yessica Mcleod PA-C [address] [place] [address] [phone] Assigned Cancer Care Provider 12/22/23 01/21/24 documented as of this encounter
--- OUTSIDE RECORDS SUMMARY | 2024-04-07 22:23 | XMS_ITS | Encounter Summary ---
Author Organization [facility] Address [address] [place] [address] Care Team Providers Care Quality Control Head Name Role Phone Alvaro Clark MD Unavailable Yessica Mcleod PA-C Unavailable Bhavin Gardner Primary Care Provider [phone] Reason for Referral * Diagnostic Imaging CT Scan (Routine) - Closed Specialty Diagnoses / Procedures Referred By Virgil ca Referred To Contact Radiology. 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) Procedures CT Chest/Abdomen/Pelvis w Contrast Yessica Mcleod PA-C 903 [place] [address] Phone: tel: fax: [facility] [address] [place] [address] Phone: tel: fax: Referral ID Status Reason Start Date Expiration Date Visits Re quested Visits Authorized [id number] Closed 11/27/2023 11/26/2024 1 1 Encounter Details Date Type Department Care Team (Latest Contact Info) Description 01/13/2024 1:02 PM CDT - 01/13/2024 11:59 PM CDT Hospital Encounter [facility] Imaging [address] [facility] [address] [place] [address] Yessica Mcleod PA-C 901 [place], [place] 775815 Urothelial cancer (H); Malignant neoplasm of trigone [...] on file 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 Gender Identity Not on file Sexual Orientation Not on file 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 file documented as of this encounter Medications at Time of Discharge acetaminophen (TYLENOL) 325 MG tabletIndications:Postop erative state,Post-op pain Take 2 tablets (650 mg) by mouth every 4 hours as needed for other (For optimal non-opioid multimodal pain management to improve pain control.) 50 tablet acetaminophen-caffeine (EXCEDRIN TENSION HEADACHE) 500-65 MG TABS Take 2 tablets by mouth every 6 hours as needed for mild pain (PRN HEADACHE) diphenhydrAMINE HCl (BENADRYL ALLERGY PO) Take 1 tablet by mouth as needed gabapentin (NEURONTIN) 100 MG capsuleIndications:Posto perative state,Post-op pain Take 1 capsule (100 mg) by mouth 3 times daily as needed for other (post op pain) 14 capsule 4 methocarbamol (ROBAXIN) 750 MG tabletIndications:Postop erative state,Post-op pain Take 1 tablet (750 mg) by mouth every 6 hours as needed for muscle spasms 14 tablet 4 polyethylene glycol (MIRALAX) 17 GM/Dose powderIndications:Postop erative state Take 17 g by mouth daily 510 g 4 senna-docusate (SENOKOT-S/PERICOLACE) 8.6-50 MG tabletIndications:Postop erative state Take 1 tablet by mouth 2 times daily 40 tablet 4 apixaban ANTICOAGULANT (ELIQUIS) 2.5 MG tabletIndications:DVT-PE Prophylaxis Take 1 tablet (2.5 mg) by mouth 2 times daily 58 tablet 4 02/10/20 24 nitroFURantoin macrocrystal-monohydrate (MACROBID) 100 MG capsuleIndications:Perio perative Pharmacoprophylaxis Take 1 capsule (100 mg) by mouth daily 19 capsule 4 02/10/20 24 documented as of this encounter Plan of Treatment Upcoming Encounters Date Type Department Care Team (Late st Contact Info) Description 04/22/2024 10:15 AM MARINE SURVEYOR Lab [address] [place] [address] Yessica Mcleod, PA-C 909 [place], [place] [address] 04/22/2024 11:00 AM MARINE SURVEYOR Oncology Visit [place] [address] [address] [facility] [place] [phone] Yessica Mcleod PA-C 909 [place], [place] 288[address] Dylan Guerin PA 909 [place] [address] 04/22/2024 12:00 PM MARINE SURVEYOR Infusion Therapy Visit [address] [place] [address] Ky Torres MD [address] 877[address] 05/02/2024 10:30 AM MARINE SURVEYOR Lab [address] [place] [address] Ky Torres MD 420 [facility] 480 [place], [place] 7[address]125 05/02/2024 11:20 AM MARINE SURVEYOR Appointment [facility] Imaging [address] [place] [address] Ky Torres MD [address] [address] 05/06/2024 10:00 AM MARINE SURVEYOR Oncology Visit [address] [place] [address] Ky Torres MD [address] [address] 05/20/2024 11:00 AM MARINE SURVEYOR Infusion Therapy Visit [facility] [address] [place] [address] Ky Torres MD 420 [facility] 480 [place] [address] 05/27/2024 9:45 AM MARINE SURVEYOR Office Visit [address] 200 [facility] [place] [address] Alvaro Clark MD 420 [facility] 394 [place], [place] [address] documented as of this encounter Procedures Procedure [...] KNOWLES MD Yessica Haynes PA-C IMKeo CT ORDERABL ES Final Result documented in this encounter Visit Diagnoses Diagnosis [...] mLs documented in this encounter Care Teams Quality Control Head Relationship Specialty Start Date End Date VoteBhavin ferrara [address] [place] [address] PCP - General Family Medicine 12/28/23 Alvaro Clark MD [address] [place] [address] Assigned Surgical Provider 07/24/23 Yessica Mcleod PA-C [address] [place] [address] 337405 Assigned Cancer Care Provider 12/22/23 01/21/24 documented as of this encounter
--- OUTSIDE RECORDS SUMMARY | 2024-04-07 22:23 | XMS_ITS | Encounter Summary ---
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 TECHNICIAN Gender Identity Not on file Sexual [...] st Contact Info) Description 04/22/2024 10:15 AM ELECTRICAL CONTROLS TECHNICIAN Lab [address] [place] [address] Yessica Mcleod PA-C [address] [place] [address] 04/22/2024 11:00 AM ELECTRICAL CONTROLS TECHNICIAN Oncology Visit [place] [address] [place] [address] Yessica Mcleod PA-C [address] [place] [address] 293275 Dylan Guerin PA 909 [place], [place] 543945 04/22/2024 12:00 PM ELECTRICAL CONTROLS TECHNICIAN Infusion Therapy Visit [place] [address] [place] [address] Ky Torres MD [address] 4975[address] 05/02/2024 10:30 AM ELECTRICAL CONTROLS TECHNICIAN Lab [address] [place] [address] Ky Torres MD 420 [facility] 480 [place] [address] 05/02/2024 11:20 AM ELECTRICAL CONTROLS TECHNICIAN Appointment [facility] Imaging [address] [place] [address] Ky Torres MD 420 [facility] 480 [place] [address] 05/06/2024 10:00 AM ELECTRICAL CONTROLS TECHNICIAN Oncology Visit [address] [place] [address] Ky Torres MD 420 [facility] 480 [place] [address] 05/20/2024 11:00 AM ELECTRICAL CONTROLS TECHNICIAN Infusion Therapy Visit [address] [place] [address] Ky Torres MD 420 [facility] [address] [place] [address] 05/27/2024 9:45 AM ELECTRICAL CONTROLS TECHNICIAN Office Visit [address] [place] [address] Alvaro Clark MD 420 [place] [facility] 394 [place], [place] 722515 documented as of this encounter Visit Diagnoses Not on filedocumented in this encounter Care Teams Technical Associate Relationship Specialty Start Date End Date Votel, Bhavin Ford [address] [place] [address] PCP - General Family Medicine 12/28/23 Alvaro Clark MD [address] [address] Assigned Surgical Provider 07/24/23 Yessica Mcleod PA-C [address] [place] [address] Assigned Cancer Care Provider 12/22/23 01/21/24 documented as of this encounter
--- OUTSIDE RECORDS SUMMARY | 2024-04-07 22:23 | XMS_ITS | Encounter Summary ---
Author Organization [facility] Address [address] [place] [address] Care Team Providers Care Cat Scan Tech Name Role Phone Alvaro Clark MD Unavailable Yessica Mcleod PA-C Unavailable Bhavin Gardner Primary Care Provider [phone] Reason for Visit * Reason Comments Blood Draw CBC, CMP Encounter Details Date Type Department Care Team (Late st Contact Info) Description 01/13/2024 12:45 PM CDT Lab [facility] [id number] [place] [address] [address] [place] [address] Alvaro Clark MD 420 [facility] [address] [place] [address] Urothelial cancer (H) Social History [...] on file 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 Patient seen by provider today: No Cnc Milling Machine Operator present during visit today: Not Applicable. Note: [...] st Contact Info) Description 04/22/2024 10:15 AM CORE DRILLING SUPERVISOR Lab [address] [place] [address] Yessica Mcleod PA-C [address] [place] [address] [phone] 04/22/2024 11:00 AM CORE DRILLING SUPERVISOR Oncology Visit [place] [address] [place] [address] Yessica Mcleod PA-C [address] [place] [address] [phone] Dylan Guerni PA 9 [place], [place] 278[address] 04/22/2024 12:00 PM CORE DRILLING SUPERVISOR Infusion Therapy Visit [place] [address] [place] [address] Ky Torres MD [address] [facility] 480 [place] [address] 05/02/2024 10:30 AM CORE DRILLING SUPERVISOR Lab [address] [place] [address] Ky Torres MD [address] [facility] [address] [place] [address] 05/02/2024 11:20 AM CORE DRILLING SUPERVISOR Appointment [facility] Specialty [facility] Imaging [address] [place] [address] Ky Torres MD [address] [facility] [address] [place], [place] 6[address] 05/06/2024 10:00 AM CORE DRILLING SUPERVISOR Oncology Visit [address] 200 [place] [address] Ky Torres MD [address] [facility] [address] [place] [address] 05/20/2024 11:00 AM CORE DRILLING SUPERVISOR Infusion Therapy Visit [address] [place] [address] Ky Torres MD [address] [facility] [address] [place], [place] 433815 05/27/2024 9:45 AM CORE DRILLING SUPERVISOR Office Visit [address] [place] [address] Alvaro Clark MD [address] [place] [address] documented as of this encounter Procedures Procedure [...] 12:59 PM CDT 01/13/2024 1:04 PM CDT us Alvaro Clark MD LAB - BLOOD ORDERABLES Final Res ult [facility] LABORATORY [facility] Acute Care Lab [address] Lab (1st floor, no room number) [place] [address], [facility] * (ABNORMAL) Comprehensive metabolic panel (BMP + Alb, Alk Phos, ALT, AST, Total. Bili, TP) (01/13/2024 12:59 PM CDT) Pathologist [facility] Sodium 137 135 - 145 mmol/L 01/13/2024 [...] CDT Alvaro Clark MD LAB - BLOOD ORDERABLES Final Res ult [facility] Acute [facility] Lab [address] Lab (1st floor, no room number) [place] [address], [facility] documented in this encounter Visit Diagnoses [...] mLs documented in this encounter Care Teams Cat Scan Tech Relationship Specialty Start Date End Date Bhavin Gardner 1400 [place] [address] PCP - General Family Medicine 12/28/23 Alvaro Clark MD [address] [place] [address] [address] [place], [place] [phone] Assigned Surgical Provider 07/24/23 Yessica Mcleod, LIDIAC [address] [place] [address] Assigned Cancer Care Provider 12/22/23 01/21/24 documented as of this encounter
--- OUTSIDE RECORDS SUMMARY | 2024-04-07 22:23 | XMS_ITS | Encounter Summary ---
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 file documented as of this encounter Plan of Treatment Upcoming Encounters Date Type Department Care Team (Late st Contact Info) Description 04/22/2024 10:15 AM CAM MILLING MACHINE OPERATOR Lab [facility] [address] [place] [address] Yessica Mcleod PA-C 909 [place] [address] 04/22/2024 11:00 AM CAM MILLING MACHINE OPERATOR Oncology Visit [address] [place] [address] Yessica Mcleod PA-C 909 [place] [address] Dylan Guerin PA 909 [place], [place] 938485 04/22/2024 12:00 PM CAM MILLING MACHINE OPERATOR Infusion Therapy Visit [address] [place] [address] Ky Torres MD [address] 7410[address] 05/02/2024 10:30 AM CAM MILLING MACHINE OPERATOR Lab [address] [place] [address] Ky Torres MD [address] 412575 05/02/2024 11:20 AM CAM MILLING MACHINE OPERATOR Appointment [facility] Imaging [address] [place] [address] [place] [address] Ky Torres MD [address] [facility] 480 [place], [place] 2376[address] 05/06/2024 10:00 AM CAM MILLING MACHINE OPERATOR Oncology Visit [address] [place] [address] Ky Torres MD [address] 1766[address] [phone] 05/20/2024 11:00 AM CAM MILLING MACHINE OPERATOR Infusion Therapy Visit [address] [place] [address] Ky Torres MD [address] [address] 05/27/2024 9:45 AM CAM MILLING MACHINE OPERATOR Office Visit [address] [place] [address] Alvaro Clark MD [address] [place] [address] documented as of this encounter Visit Diagnoses Not on filedocumented in this encounter Care Teams Wallpaperer Helper Relationship Specialty Start Date End Date VotelBhavin 1400 [place] [address] PCP - General Family Medicine 12/28/23 Alvaro Clark MD [address] [place] [address] Assigned Surgical Provider 07/24/23 Yessica Mcleod PA-C [address] [place] [address] Assigned Cancer Care Provider 12/22/23 01/21/24 documented as of this encounter
--- OUTSIDE RECORDS SUMMARY | 2024-04-07 22:23 | XMS_ITS | Encounter Summary ---
Author Organization [facility] Address [address] [place] [address] Care Team Providers Care Roper Operator Name Role Phone Alvaro Clark MD Unavailable Yessica Mcleod PA-C Unavailable Bhavin Gardner Primary Care Provider [phone] Reason for Visit * Reason Comments Catheter Problem Encounter Details Date Type Department Care Team (Late st Contact Info) Description 12/30/2023 10:12 PM CDT - 12/31/2023 1:28 AM T Emergency [facility] Emergency Dept [address] [place] [address] Kandi Morales MD [facility] [address] [place], [place] [phone] Problem with Parry catheter, initial encounter (H) [...] on file 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 Return [facility] ER if you are unable to flush [...] to improve pain control.) 50 tablet 4 acetaminophen-caffeine (EXCEDRIN TENSION HEADACHE) 500-65 MG TABS [...] 02/10/20 24 documented as of this encounter ED Notes [...] Documentation None Medical Decision Making / Diagnosis [facility] Diagnoses: None MIPS None MDM Oleg Richard [...] st Contact Info) Description 04/22/2024 10:15 AM SALES PERFORMANCE ANALYST Lab [address] [place] [address] Yessica Mcleod, PAJannetC 9 [place], [place] 083265 04/22/2024 11:00 AM SALES PERFORMANCE ANALYST Oncology Visit [address] [place] [address] Yessica Mcleod, PAJannetC [address] [place] [address] [phone] Dylan Guerin PA 909 [place], [place] [phone] 04/22/2024 12:00 PM SALES PERFORMANCE ANALYST Infusion Therapy Visit [address] [place] [address] Ky Torres MD 420 [facility] [address] [place], [place] 1812[address] 05/02/2024 10:30 AM SALES PERFORMANCE ANALYST Lab [address] [place] [address] Ky Torres MD 420 [facility] [address] [place], [place] [phone] 05/02/2024 11:20 AM SALES PERFORMANCE ANALYST Appointment [facility] Imaging [address] [place] [address] [place] [address] Ky Torres MD 420 [facility] [address] [place] [address] 05/06/2024 10:00 AM SALES PERFORMANCE ANALYST Oncology Visit [address] 200 [facility] [place] [address] Ky Torres MD 420 [facility] [address] [place] [address] 05/20/2024 11:00 AM SALES PERFORMANCE ANALYST Infusion Therapy Visit [facility] Medical Ctr [facility] [address] [place] [address] [place] [address] Ky Torres MD [address] [address] 05/27/2024 9:45 AM SALES PERFORMANCE ANALYST Office Visit [address] [facility] [place] [address] Alvaro Clark MD 420 [facility] [address] [place] [address] documented as of this encounter Visit Diagnoses Diagnosis Problem with Parry catheter, initial encounter (H) documented in this encounter Care Teams Roper Operator Relationship Specialty Start Date End Date Votel, Bhavin Ford [address] [place] [address] PCP - General Family Medicine 12/28/23 Alvaro Clark MD 420 [facility] [address] [place], [place] 0[address]475 Assigned Surgical Provider 07/24/23 Yessica Mcleod PA-C [address] [place] [address] [phone] Assigned Cancer Care Provider 12/22/23 01/21/24 documented as of this encounter
--- OUTSIDE RECORDS SUMMARY | 2024-04-07 22:23 | XMS_ITS | Encounter Summary ---
Author Organization [facility] Address [address] [place] [address] Care Team Providers Care Diaper Machine Tender Name Role Phone Alvaro Clark MD Unavailable Yessica Mcleod PA-C Unavailable Bhavin Gardner Primary Care Provider [phone] Reason for Visit * Reason Comments Oncology Clinic Visit Post opBladder can cer Encounter Details Date Type Department Care Team (Late st Contact Info) Description 01/01/2024 9:45 AM CDT Office Visit [facility] [address] [address] [facility] [place] [address] Alvaro Clark MD 420 [facility] 394 [place] [address] Urothelial cancer (H) (Primary Dx) [...] on file Legal Sex Male 4:18 PM CONVENTION SERVICES MANAGER Gender Identity Not on file Sexual Orientation [...] (usual) Histologic Grade Grade Grade group 2 ([place] Score 3 + 4 = 7) Intraductal [...] above Alvaro Clark MD Department of Urology [facility] documented in this encounter Nursing Notes [...] not needed today. Pharmacy name entered into [employer]: [place], [place] - [facility] Frailty Screening: Is the patient here for [...] st Contact Info) Description 04/22/2024 10:15 AM CONVENTION SERVICES MANAGER Lab [address] [place] [address] Yessica Mcleod PA-C [address] [place] [address] 288085 04/22/2024 11:00 AM CONVENTION SERVICES MANAGER Oncology Visit [address] [place] [address] Yessica Mcleod PA-C [address] [place] [address] 332805 Dylan Guerin PA [address] [place] [address] 0742[address] 04/22/2024 12:00 PM CONVENTION SERVICES MANAGER Infusion Therapy Visit [place] [address] [place] [address] Ky Torres MD [address] [place] [address] 327435 05/02/2024 10:30 AM CONVENTION SERVICES MANAGER Lab [address] [place] [address] Ky Torres MD 420 [facility] EM[facility] 480 [place] [address] 05/02/2024 11:20 AM CONVENTION SERVICES MANAGER Appointment [facility] Imaging [address] [place] [address] Ky Torres MD 420 [facility] EMERG[facility] 480 [place] [address] 05/06/2024 10:00 AM CONVENTION SERVICES MANAGER Oncology Visit [address] 200 [facility] [place] [address] Ky Torres MD 420 [facility] EMERG[facility] 480 [place] [address] 05/20/2024 11:00 AM CONVENTION SERVICES MANAGER Infusion Therapy Visit [facility] Medical Ctr [facility] [address] [place] [address] Ky Torres MD 420 [facility] EM[facility] 480 [place] [address] 05/27/2024 9:45 AM CONVENTION SERVICES MANAGER Office Visit [address] [facility] [place] [address] Alvaro Clark MD 420 [facility] 394 [place], [place] 0768[address] documented as of this encounter Results * [...] LAB - BLOOD ORDERABLES Final Res ult [facility] Acute Care Lab [address] Lab (1st floor, no room number) [place] [address], [facility] documented in this encounter Visit Diagnoses Diagnosis Urothelial cancer (H)- Primary Malignant neoplasm of other specified sites of urinary organs documented in this encounter Care Teams Diaper Machine Tender Relationship Specialty Start Date End Date Votel, Bhavin Ford [address] [place] [address] PCP - General Family Medicine 12/28/23 Alvaro Clark MD [address] 948185 Assigned Surgical Provider 07/24/23 Yessica Mcleod, PAJannetC [address] [place] [address] Assigned Cancer Care Provider 12/22/23 01/21/24 documented as of this encounter
--- OUTSIDE RECORDS SUMMARY | 2024-04-07 22:23 | XMS_ITS | Encounter Summary ---
Author Organization [facility] Address [address] [place] [address] Care Team Providers Care Hat Measurer Name Role Phone Alvaro Clark MD Unavailable Yessica Mcleod PA-C Unavailable Bhavin Gardner Primary Care Provider [phone] Reason for Visit * Reason Comments Oncology Clinic Visit Encounter Details Date Type Department Care Team ([facility] st Contact Info) Description 01/15/2024 10:30 AM CDT Office Visit [facility] [address] [address] [facility] [place] [address] Alvaro Clark MD 420 [facility] [address] [place] [address] Urothelial cancer (H) (Primary Dx); [...] on file Legal Sex 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 Production Support Developer faxed medical DME order for home CIC supplies. Charlie Almonte RN, BSN. RN Pleater Hand [facility] [phone] documented in this encounter Nursing Notes * [...] not needed today. Pharmacy name entered into [facility]: [address] Frailty Screening: Is the patient here [...] st Contact Info) Description 04/22/2024 10:15 AM FACTORY ENGINEER Lab [address] [place] [address] Yessica Mcleod PA-C [address] [place] [address] [phone] 04/22/2024 11:00 AM FACTORY ENGINEER Oncology Visit [address] [place] [address] Yessica Mcelod PA-C [address] [place] [address] [phone] Dylan Guerin PA [address] [place] [address] [phone] 04/22/2024 12:00 PM FACTORY ENGINEER Infusion Therapy Visit [address] [place] [address] Ky Torres MD [address] [facility] 480 [place], [place] 509045 05/02/2024 10:30 AM FACTORY ENGINEER Lab [address] [place] [address] Ky Torres MD [address] [facility] [address] [place] [address] 05/02/2024 11:20 AM FACTORY ENGINEER Appointment [facility] Imaging [address] [place] [address] Ky Torres MD [address] [facility] 480 [place], [place] [address] 05/06/2024 10:00 AM FACTORY ENGINEER Oncology Visit [address] [place] [address] Ky Torres MD [address] [facility] [address] [place] [address] 05/20/2024 11:00 AM FACTORY ENGINEER Infusion Therapy Visit [address] [place] [address] Ky Torres MD [address] [facility] 480 [place], [place] 8[address]205 05/27/2024 9:45 AM FACTORY ENGINEER Office Visit [facility] [address] [address] [facility] [place] [place] [address] Alvaro Clark MD [address] [place] [address] 525635 documented as of this encounter Visit Diagnoses Diagnosis Urothelial cancer (H)- Primary Malignant neoplasm of other specified sites of urinary organs Urinary retention Retention of urine, unspecified documented in this encounter Care Teams Hat Measurer Relationship Specialty Start Date End Date Votel, Bhavin Ford [address] [place] [address] PCP - General Family Medicine 12/28/23 Alvaro Clark MD [address] [place] [address] [phone] Assigned Surgical Provider 07/24/23 Yessica Mcleod, PAJannetC [address] [place] [address] [phone] Assigned Cancer Care Provider 12/22/23 01/21/24 documented as of this encounter
--- OUTSIDE RECORDS SUMMARY | 2024-04-07 22:23 | XMS_ITS | Encounter Summary ---
Author Organization [place] Address [address] [place] [address] Care Team Providers Care Customs Agent Name Role Phone Alvaro Clark MD Unavailable Yessica Mcleod PA-C Unavailable Bhavin Gardner Primary Care Provider [phone] Reason for Visit * Reason Onset Date Comments Patient/info Update 01/18/2024 Encounter Details Date Type Department Care Team (Late st Contact Info) Description 01/18/2024 Telephone [facility] [address] [place] [address] [address] [facility] [place] [address] Alvaro Clark MD [address] [facility] [address] [place] [address] Patient/info Update Social History Tobacco [...] on file Legal Sex Male 4:18 PM TOSSER Gender Identity Not on file Sexual Orientation [...] switch him to Bactrim. For 10 days. [facility] Charlie Almonte RN Sw Cancer [id number] minutes ago (8:51 AM) TK Are we [...] fever and chills yesterday. He went to [place] [facility] early this morning around 2:00 am. [...] that he just feels weak and tired. Academic Administrator advised pt to continue to drink fluids [...] st Contact Info) Description 04/22/2024 10:15 AM TOSSER Lab [place] [address] [place] [address] [place] [address] Yessica Mcleod PA-C [address] [place] [phone] 04/22/2024 11:00 AM TOSSER Oncology Visit [place] [address] [place] [address] [place] [address] Yessica Mcleod PA-C [address] [place] [address]7945 Dylan Guerin PA [address] [place] [address] 013695 04/22/2024 12:00 PM TOSSER Infusion Therapy Visit [place] [address] [address] [place] [address] Ky Torres MD [address] [facility] 480 [place] [address] 05/02/2024 10:30 AM TOSSER Lab [address] [place] [address] Ky Torres MD [address] [facility] 480 [place] [address] 05/02/2024 11:20 AM TOSSER Appointment [facility] Specialty [facility] Imaging [address] [place] [address] Ky Torres MD [address] [facility] [address] [address] 05/06/2024 10:00 AM TOSSER Oncology Visit [address] [place] [address] Ky Torres MD [address] [place] [address] [address] 05/20/2024 11:00 AM TOSSER Infusion Therapy Visit [facility] [address] [place] [address] Ky Torres MD [address] [facility] 480 [place] [address] 05/27/2024 9:45 AM TOSSER Office Visit [address] [place] [address] Alvaro Clark MD [address] [phone] documented as of this encounter Visit Diagnoses Diagnosis Urinary tract infection- Primary Urinary tract infection, site not specified documented in this encounter Care Teams Customs Agent Relationship Specialty Start Date End Date Votel, Bhavin Ford [address] [place] [address] PCP - General Family Medicine 12/28/23 Alvaro Clark MD [address] [place] [address] 869195 Assigned Surgical Provider 07/24/23 Yessica Mcleod PA-C [address] [place] [address] [phone] Assigned Cancer Care Provider 12/22/23 01/21/24 documented as of this encounter
--- OUTSIDE RECORDS SUMMARY | 2024-04-07 22:23 | XMS_ITS | Encounter Summary ---
Author Organization [facility] Address [address] [place] [address]. [place] [address] Care Team Providers Care Materials Technician Name Role Phone Alvaro Clark MD Unavailable No Ref-Primary, Physician Primary Care Provider Yessica Mcleod PA-C Unavailable Bhavin Gardner Primary Care Provider [phone] Reason for Visit * Auth/Cert (Routine) Specialty Diagnoses / Procedures Referred By Contkatlyn t Referred To Contact Med Surg Diagnoses Post-op complications with small bowel obstruction Small bowel obstruction (H) [facility] [address] [place] [phone] Phone: tel: fax: Referral ID Status Reason Start Date Expiration Date Visits Re quested Visits Authorized [id number] 1 1 Encounter Details Date Type Department Care Team (Latest Contact Info) Description 12/27/2023 4:52 AM CDT - 12/29/2023 1:34 PM CDT Hospital Encounter [facility] [address] [place] [address] Fernando Romero MD [address] [place] [address] [address] [place], [place] [address] Discharge Disposition: Home or Self Care Social [...] on file Legal Sex Male 4:18 PM YARN PACKER Gender Identity Not on file Sexual Orientation [...] Manriquez MD - 12/29/2023 10:02 AM CDT [facility] Urology Discharge Summary Date of Admission: [...] Thursday through Thursday 8am to 4:30pm: Call [phone] with questions or to schedule or confirm appointment. - Nights or weekends: call the after hours emergency pager - [phone] and tell the centrifugal operator I would like to page the Urology Resident primary special education teacher. - For emergencies, call [phone] The patient was discussed with the chief resident and staff on the day of discharge. Krystian Manriquez MD Urology Resident Cosigned by Alvaro Clark MD at 12/30/2023 8:01 AM CDT Associated attestation - Alvaro Clark MD - [...] 02/10/20 24 documented as of this encounter Progress Notes * Jenni Vela, RN - 12/29/2023 8:42 AM CDT VS: [...] questions or concerns regarding this patient. Note writer technical publications may be unavailable. To access [facility] from intranet: under Applications --> Business Applications select gis.to and search Urology Adult & Pediatric/[facility]. Please note that any question about a urology inpatient, [place], should go to job code [email or web address]. * [...] last 3 completed shifts: In: - Out: 5 [Urine:2225] Labs Recent Labs Lab Test 12/27/23 [...] questions or concerns regarding this patient. Note writer technical publications may be unavailable. To access [facility] from intranet: under Applications --> Business Applications select gis.to and search Urology Adult & Pediatric/[facility]. Please note that any question about a urology inpatient, [place], should go to job code [email or web address]. * [...] for post op complication. Pt came from [facility] with family member matthew 05:30 am.Pt has a parry draining bloody catheter. 0 * Lauren Eli RN - 12/27/2023 5:42 AM CDT Reason for admission: Post op complication Primary team notified of pt arrival. Admitted from: [facility] Via: Family car Accompanied by: family [...] BLADDER TUMOR; Surgeon: Alvaro Clark MD; [place] [facility] [place] Social History: Social History Tobacco Use Smoking status: Former Current packs/day: 0.00 Average packs/day: 1.5 packs/day for 30.0 years (45.0 ttl pk-yrs) Types: Cigarettes Start date: 1979 Quit date: 2010 Years since quittin.5 Passive exposure: Past Smokeless [...] reach out to urology resident listed as primary special education teacher, electrolyte replacement for K>4, Phos>3, and Mg>2, electrolyte panel pending Endo: SUSAN : 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 Nick Persaud Urology Resident Cosigned by Fernando Romero MD at 12/27/2023 7:34 PM CDT Associated attestation - Fernando Romero MD - [...] Patient Progress: improvingOverall Patient Progress: improving Shift 8685-2125 Changes this shift: Irrigated parry and pelvic [...] room organization consistent safety round/check completed Taken 12/27/2023 2100 by Nanci Cowart RN Safety Promotion/Fall Prevention: [...] RN Infection Prevention: hand hygiene promoted Taken 12/27/2023 2100 by Nanci Cowart RN Infection Prevention: hand [...] Barahona RN - 12/27/2023 6:31 PM CDT 6028-8653 Blood pressure 132/75, pulse 94, temperature 97.4 [...] * Pharmacy-Admission Medication History - Silvia Sánchez RPH - 12/27/2023 1:10 PM CDT Pharmacist Admission Medication History Recent Admission 12/22/2023 - 12/25/3023 Admission Medication History completed by pharmacy buyer, Uriel Kaba on 12/15/2023. Please see Pharmacy - Admission Medication History note under previous encounter at [facility]. for information regarding prior to admission medications. Silvia Sánchez, Rashid Clinical Pharmacist documented in this encounter Plan of Treatment Upcoming Encounters Date Type Department Care Team (Late st Contact Info) Description 04/22/2024 10:15 AM YARN PACKER Lab [place] [address] [place] [address] Yessica Mcleod PA-C [address] [place], [place] [address] 04/22/2024 11:00 AM YARN PACKER Oncology Visit [address] [place] [address] Yessica Mcleod PA-C [address] [place] [address] Dylan Guerin PA [address]09 [place] [address] 04/22/2024 12:00 PM YARN PACKER Infusion Therapy Visit [address] [place] [address] Ky Torres MD [address] [address] 05/02/2024 10:30 AM YARN PACKER Lab [address] [place] [address] Ky Torres MD [address] [address] 05/02/2024 11:20 AM YARN PACKER Appointment [facility] Imaging [address] [place] [address] Ky Torres MD [address] [address] 05/06/2024 10:00 AM YARN PACKER Oncology Visit [address] [place] [address] yK Torres MD [address] [address] 05/20/2024 11:00 AM YARN PACKER Infusion Therapy Visit [address] [place] [address] Ky Torres MD 420 [facility] [address] [place] [address] 05/27/2024 9:45 AM YARN PACKER Office Visit [facility] [address] [facility] [place] [address] Alvaro Clark MD 420 [facility] [address] [place], [place] [address] documented as of this encounter Procedures Procedure [...] 7:28 AM CDT 12/29/2023 8:06 AM CDT us Krystian Manriquez MD LAB - BLOOD ORDERABLES Final Res ult UR LABORATORY [facility] Acute Care Lab [address] [facility], Room [address] [place] [address], [facility] * (ABNORMAL) CBC [...] 7:28 AM CDT 12/29/2023 8:06 AM CDT us Krystian Manriquez MD LAB - BLOOD ORDERABLES Final Res ult UR LABORATORY [facility] Acute Care Lab [address] [place] [address], Room [address] * Phosphorus (12/28/2023 11:53 AM CDT) Phosphorus 2.8 2.5 - 4.5 mg/dL 12/28/2023 1:37 PM CDT UR LABORATORY Blood STRUCTURE OF RIGHT UPPER LIMB / Unknown Venipuncture / Unknown 12/28/2023 11:53 AM CDT 12/28/2023 12:53 PM CDT us Krystian Manriquez MD LAB - BLOOD ORDERABLES Final Res ult UR LABORATORY [facility] Acute Care Lab [address] [place] [address], [address] * Magnesium (12/28/2023 11:53 AM CDT) Magnesium 2.0 1.7 - 2.3 mg/dL 12/28/2023 1:37 PM CDT UR LABORATORY Blood STRUCTURE OF RIGHT UPPER LIMB / Unknown Venipuncture / Unknown 12/28/2023 11:53 AM CDT 12/28/2023 12:53 PM CDT us Krystian Manriquez MD LAB - BLOOD ORDERABLES Final Res ult UR LABORATORY [facility] Acute Care Lab [address] [facility], Room [address] [place] [phone] * (ABNORMAL) Basic metabolic panel (12/28/2023 11:53 [...] CDT Krystian Manriquez MD LAB - BLOOD ORDERABLES Final Res ult UR LABORATORY [facility] Acute Care Lab [address] [facility], Room [address] [place] [address], [facility] * (ABNORMAL) CBC [...] 11:53 AM CDT 12/28/2023 12:53 PM CDT us Krystian Manriquez MD LAB - BLOOD ORDERABLES Final Res ult UR LABORATORY [facility] Acute Care Lab [facility], Room [place] [phone] [place] [address] * Electrolyte panel (12/27/2023 7:37 AM CDT) [...] 7:37 AM CDT 12/27/2023 8:16 AM CDT us Demarcus Persaud MD LAB - BLOOD ORDERABLES Final Re sult UR LABORATORY [facility] Acute Care Lab [facility], Room [address] [phone] * (ABNORMAL) Basic metabolic panel (12/27/2023 7:37 [...] 7:37 AM CDT 12/27/2023 8:16 AM CDT us Demarcus Persaud MD LAB - BLOOD ORDERABLES Final Re sult UR LABORATORY [facility] Acute Care Lab [address] [facility], Room [address] [place] [address], [facility] * (ABNORMAL) CBC [...] 7:37 AM CDT 12/27/2023 8:16 AM CDT us Demarcus Persaud MD LAB - BLOOD ORDERABLES Final Re sult UR LABORATORY [facility] Acute Care Lab [address] [facility], [address] [place] [address] documented in this encounter Visit Diagnoses [...] PRN, sore throat, without fever, Starting on 12/27/23 at 0510 bisacodyl (DULCOLAX) suppository 10 mg [...] 2 MIN PRN, opioid reversal, Starting on Rush 12/27/23 at 0517, Administer intramuscular if an [...] 2 MIN PRN, opioid reversal, Starting on Rush 12/27/23 at 0517, Administer intravenous route when [...] dose on Thu12/27/23 at 0800, Indications: Perioperative PharmacoprophylaxisIndications:Perioperative Pharmacoprophylaxis $Given 12/29/2023 8:57 AM CDT 100 [...] Sanderson RN)2053 ($Given - Provider: Nanci Cowart, RN) 0434 ($Given - Provider: Nanci Cowart, RN)1235 ($Given - Provider: Becca Workman, CARLOS)1943 ($Given - Provider: Omega Livingston, CARLOS) 0355 ($Given - Provider: Omega Livingston, RN)1200 (Canceled Entry - Provider: Orders Generic [...] IV Infusing)1233 (Not Given - Provider: Becca Workman, CARLOS - Reason: IV Infusing)2056 (Not Given - [...] 2 MIN PRN, opioid reversal, Starting on Rush 12/27/23 at 0517, Administer intravenous route when [...] 2 MIN PRN, opioid reversal, Starting on Rush 12/27/23 at 0517, Administer intravenous route when [...] (ZOFRAN). documented in this encounter Care Teams Materials Technician Relationship Specialty Start Date End Date No Ref-Primary, Physician PCP - General 12/22/23 12/27/23 Bhavin Gardner: [phone] [place] [address] PCP - General Family Medicine 12/28/23 Alvaro Clark MD [address] [address] Assigned Surgical Provider 07/24/23 Yessica Mcleod PA-C [address] [place] [address] Assigned Cancer Care Provider 12/22/23 01/21/24 documented as of this encounter
--- OUTSIDE RECORDS SUMMARY | 2024-04-07 22:23 | XMS_ITS | Encounter Summary ---
Author Organization [facility] Address [address] [place] [address] Care Team Providers Care Civil Manager Name Role Phone Alvaro Clark MD Unavailable Yessica Mcleod PA-C Unavailable Bhavin Gardner Primary Care Provider [phone] Reason for Referral * Diagnostic Imaging CT Scan (Routine) - Authorized Specialty Diagnoses / Procedures Referred By Contkatlyn t Referred To Contact Radiology. Diagnoses Urothelial cancer (H) Prostate cancer (H) Procedures CT Chest/Abdomen/Pelvis w Contrast Ky Torres MD 420 [facility] [address] [address] Phone: tel: fax: Referral ID Status Reason Start Date Expiration Date V isits Requested Visits Authorized [id number] Authorized 01/18/2024 01/17/2025 1 1 Reason for Visit * Reason Comments Oncology Clinic Visit Encounter Details Date Type Department Care Team (Late st Contact Info) Description 01/15/2024 11:30 AM CDT Oncology Visit [address] [facility] [place] [phone] Ky Torres MD 420 [facility] [address] [address] Urothelial cancer (H) (Primary Dx); Prostate [...] on file Legal Sex Male 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 Gender Identity Not on file Sexual Orientation [...] with ddMVAC followed by cystoprostatectomy ypT4N0 disease [facility] FOLLOW-UP VISIT NOTE PATIENT NAME: Oleg Richard DATE OF VISIT: Jan 15, 2024 DATE OF : 1960 REFERRING PROVIDER: Alvaro Clark MD [address] [place] [address] CANCER TYPE: Urothelial cancer from bladder STAGE: Cancer Staging Bladder cancer (H) Staging form: Urinary Bladder, AJCC 8th Edition - Pathologic stage from 01/15/2024: Stage IIIA (ypT4a, pN0, cM0) - Signed by Ky Torres MDon 01/18/2024 TREATMENT SUMMARY: Oleg presented with urinary retention to the [place] ED on 05/26/23. He had urinary urgency andfrequency for the previous few weeks. He was noted to have urinary retention and blood in urine without any infection. He had a CT scan done in ED which showed decompressed bladder with parry and wasotherwise unremarkable. He then was seen by Carolina Arrieta in urology at [facility] and referred for cystoscopy. He had [...] results for input(s): CEA in the last 23704 hours. Results for orders placed or performed [...] Agency Case Report Surgical Pathology Report Case: [id number] Authorizing Provider: Alvaro Clark MD Collected: 12/22/2023 [...] Radical Prostatectomy 8th Edition - Protocol posted: 02/18/2023ROSTATE GLAND: RADICAL PROSTATECTOMY - All Specimens SPECIMEN [...] post neoadjuvant ddMVAC and cystoprostatectomy with neobladder [id number] disease *prostate stroma involvement Incidental prostate cancer [...] documenting in electronic medical record. Ky Torres Feeder Associate and Medical Oncologist [facility] documented in this encounter Plan of Treatment Upcoming Encounters Date Type Department Care Team (Late st Contact Info) Description 04/22/2024 10:15 AM ASSOCIATE PROFESSOR OF MEDIA ARTS Lab [facility] [address] [place] [address] Yessica Mcleod PA-C [address] [place] [address] 04/22/2024 11:00 AM ASSOCIATE PROFESSOR OF MEDIA ARTS Oncology Visit [address] [facility] [place] [place] [address] Yessica Mcleod PA-C [address] [place] [phone] Dylan Guerin PA [address] [place], [place] [address] 04/22/2024 12:00 PM ASSOCIATE PROFESSOR OF MEDIA ARTS Infusion Therapy Visit [address] [place] [address] Ky Torres MD [address] [facility] [address] [place] [address] 05/02/2024 10:30 AM ASSOCIATE PROFESSOR OF MEDIA ARTS Lab [address] [place] [address] Ky Torres MD [address] [facility] [address] [place], [place] [address] 05/02/2024 11:20 AM ASSOCIATE PROFESSOR OF MEDIA ARTS Appointment [facility] Imaging [address] [place] [address] Ky Torres MD [address] [facility] [address] [place] [address] 05/06/2024 10:00 AM ASSOCIATE PROFESSOR OF MEDIA ARTS Oncology Visit [address] [place] [address] Ky Torres MD [address] [facility] [address] [place] [address] 05/20/2024 11:00 AM ASSOCIATE PROFESSOR OF MEDIA ARTS Infusion Therapy Visit [address] [place] [address] Ky Torres MD [address] [facility] [address] [place], [place] [address] 05/27/2024 9:45 AM ASSOCIATE PROFESSOR OF MEDIA ARTS Office Visit [facility] [address] [facility] [place] [place] [address] Alvaro Clark MD [address] [address] Scheduled Orders Name Type Priority Associated Diagnoses [...] AM CDT [facility] LABORATORY Comment:eGFR calculated usin g [...] - 45 U/L 02/10/2024 10:59 AM CDT LABORATORY ALT 18 0 - 70 U/L [...] AM CDT 02/10/2024 10:35 AM CDT us Ky Torres MD LAB - BLOOD ORDERABLES Fin al Result LABORATORY [facility] Acute Care Lab [address] Lab (1st floor, no room number) [place] [address] * (ABNORMAL) Testosterone total (02/10/2024 10:23 AM CDT) Testosterone Total 69(L) 240 - 950 ng/dL 02/14/2024 7:01 AM CDT [facility] Blood (Portacath) IVAD (Port) / Unknown 02/10/2024 10:23 AM CDT 02/10/2024 10:35 AM CDT Ky Torres MD LAB - BLOOD ORDERABLES Fin al Result Performing Organization Address City/[facility]/ZIP Co de Phone Number [facility] Special Drug/BGEN [address] [facility] [address] [facility], Room [address] [address] * PSA tumor marker (02/10/2024 10:23 AM CDT) PSA Tumor Marker 0.02 0.00 - 4.50 ng/mL 02/10/2024 6:36 PM CDT [facility] Blood (Portacath) IVAD (Port) / Unknown 02/10/2024 10:23 AM CDT 02/10/2024 10:35 AM CDT Narrative [facility] - 02/10/2024 6:36 PM CDT This result is obtained using the Margo Elecsys total PSA method on the haldey e801 immunoassay analyzer. Results obtained with different assay methods or kits cannot be used interchangeably. Ky Torres MD LAB - BLOOD ORDERABLES Fin al Result [facility] LABORATORY [facility] [address] [facility] [address] Building, Room [address] [place] [address] * (ABNORMAL) Urine Culture (01/15/2024 1:11 [...] ORDERABLES F inal Result [facility] IDD LABORATORY [facility] Inf. Diseases Diag. 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
--- OUTSIDE RECORDS SUMMARY | 2024-04-07 22:23 | XMS_ITS | Encounter Summary ---
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 file documented as of this encounter Plan of Treatment Upcoming Encounters Date Type Department Care Team (Late st Contact Info) Description 04/22/2024 10:15 AM DEPARTMENT CLERK Lab [facility] [address] [place] [address] Yessica Mcleod PA-C 909 [place] [address] 04/22/2024 11:00 AM DEPARTMENT CLERK Oncology Visit [address] [place] [address] Yessica Mcleod PA-C 9[address] [place] [address] Dylan Guerin PA 9[address] [place], [place] [address] 04/22/2024 12:00 PM DEPARTMENT CLERK Infusion Therapy Visit [address] [place] [address] Ky Torres MD [address] [address] 05/02/2024 10:30 AM DEPARTMENT CLERK Lab [address] [place] [address] Ky Torres MD [address] [address] 05/02/2024 11:20 AM DEPARTMENT CLERK Appointment [facility] Imaging [address] [place] [address] Ky Torres MD [address] [facility] 480 [place], [place] [address] 05/06/2024 10:00 AM DEPARTMENT CLERK Oncology Visit [address] [place] [address] Ky Torres MD [address] [place] [address] [address] [phone] 05/20/2024 11:00 AM DEPARTMENT CLERK Infusion Therapy Visit [address] [place] [address] Ky Torres MD [address] [address] 05/27/2024 9:45 AM DEPARTMENT CLERK Office Visit [address] [place] [address] Alvaro Clark MD [address] [place] [address] documented as of this encounter Visit Diagnoses Not on filedocumented in this encounter Care Teams Grounds Crew Supervisor Relationship Specialty Start Date End Date VotelBhavin [address] [place] [address] PCP - General Family Medicine 12/28/23 Alvaro Clark MD [address] [place] [address] Assigned Surgical Provider 07/24/23 Yessica Mcleod PA-C [address] [place] [address] Assigned Cancer Care Provider 12/22/23 01/21/24 documented as of this encounter
--- OUTSIDE RECORDS SUMMARY | 2024-04-07 22:24 | XMS_ITS | Encounter Summary ---
Author Organization [facility] Address [address] [place] [address]. [place] [address] Care Team Providers Care Athletic Training Internship Name Role Phone Alvaro Clark MD Unavailable System, Provider Not In Primary Care Provider Un available Ky Torres MD Unavailable [phone] Sixto Whalen APRN TELEPHONE ORDER CLERK ROOM SERVICE Unavailable [phone] No Ref-Primary, Physician Primary Care Provider Yessica Mcleod PA-C Unavailable Bhavin Gardner Primary Care Provider [phone] Ky Torres MD Unavailable [phone] Encounter Details Date Type Department Care Team (Late st Contact Info) Description 09/02/2023 MyC Medical Advice [facility] [place] [address], [address] [place] [address] Ky Torres MD 420 [facility] [address] [place] [address] Social History Tobacco Use Types [...] on file Legal Sex Male 4:18 PM SAFETY DIRECTOR Gender Identity Not on file Sexual Orientation Not on file 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 file documented as of this encounter Plan of Treatment Upcoming Encounters Date Type Department Care Team (Late st Contact Info) Description 04/22/2024 10:15 AM SAFETY DIRECTOR Lab [address] [place] [address] Yessica Mcleod PA-C 903 [place], [place] 420705 04/22/2024 11:00 AM SAFETY DIRECTOR Oncology Visit [address] [place] [address] Yessica Mcleod PA-C [address] [place] [address] 866645 Dylan Guerin PA 909 [place], [place] [address] 04/22/2024 12:00 PM SAFETY DIRECTOR Infusion Therapy Visit [place] [address] [place] [address] Ky Torres MD [address] [address] 05/02/2024 10:30 AM SAFETY DIRECTOR Lab [address] [place] [address] Ky Torres MD [address] [address] 05/02/2024 11:20 AM SAFETY DIRECTOR Appointment [facility] [address] [place] [address] Ky Torres MD 420 [facility] [address] [place] [address] 05/06/2024 10:00 AM SAFETY DIRECTOR Oncology Visit [address] [facility] [place] [address] Ky Torres MD 420 [facility] [address] [place] [address] 05/20/2024 11:00 AM SAFETY DIRECTOR Infusion Therapy Visit [facility] [address] [place] [address] Ky Torres MD [address] [address] 05/27/2024 9:45 AM SAFETY DIRECTOR Office Visit [address] 200 [facility] [place] [address] Alvaro Clark MD 420 [facility] [address] [place] [address] documented as of this encounter Visit Diagnoses Not on filedocumented in this encounter Care Teams Athletic Training Internship Relationship Specialty Start Date End Date System, Provider Not In PCP - General Clinic 08/13/23 12/21/23 No Ref-Primary, Physician PCP - General 12/22/23 12/27/23 Bhavin Gardner [address] [place] [address] PCP - General Family Medicine 12/28/23 Alvaro Clark MD [address] [place] [address] [address] [place] [address] Assigned Surgical Provider 07/24/23 Ky Torres MD [address] [place] [address] Assigned Cancer Care Provider 09/22/23 10/21/23 Sixto Whalen APRN CNP [address] [place] [address] Assigned Cancer Care Provider 10/22/23 12/21/23 Yessica Mcleod PA-C [address] [place] [address] Assigned Cancer Care Provider 12/22/23 01/21/24 Ky Torres MD [address] [place] [address] Assigned Cancer Care Provider 01/22/24 documented as of this encounter
--- OUTSIDE RECORDS SUMMARY | 2024-04-07 22:24 | XMS_ITS | Encounter Summary ---
Author Organization [facility] Address [address] [place] [address] Care Team Providers Care Bonded Structures Repairer Name Role Phone Alvaro Clark MD Unavailable System, Provider Not In Primary Care Provider Un available Sixto Whalen APRN GROCERY CADDY Unavailable [phone] No Ref-Primary, Physician Primary Care Provider Yessica Mcleod PA-C Unavailable Bhavin Gardner Primary Care Provider [phone] Ky Torres MD Unavailable [phone] Encounter Details Date Type Department Care Team (Late st Contact Info) Description 12/01/2023 MyC Medical Advice [facility] [address] 200 [facility] [place] [address] Sabra Wilcox Social History Tobacco [...] on file Legal Sex Male 4:18 PM CNC SPECIALIST Gender Identity Not on file Sexual Orientation Not on file 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 file documented as of this encounter Plan of Treatment Upcoming Encounters Date Type Department Care Team (Late st Contact Info) Description 04/22/2024 10:15 AM CNC SPECIALIST Lab [address] [place] [address] Yessica Mcleod PA-C 909 [place] [address] 04/22/2024 11:00 AM CNC SPECIALIST Oncology Visit [address] [place] [address] Yessica Mcleod PA-C 909 [place], [place] [address] Dylan Guerin PA 909 [place], [place] 114[address] 04/22/2024 12:00 PM CNC SPECIALIST Infusion Therapy Visit [address] [place] [address] Ky Torres MD [address] 522475 05/02/2024 10:30 AM CNC SPECIALIST Lab [address] [place] [address] Ky Torres MD 420 [facility] 480 [place], [place] 7586[address] 05/02/2024 11:20 AM CNC SPECIALIST Appointment [facility] [address] [place] [address] Ky Torres MD [address] [address] 05/06/2024 10:00 AM CNC SPECIALIST Oncology Visit [address] [place] [address] Ky Torres MD [address] [address] 05/20/2024 11:00 AM CNC SPECIALIST Infusion Therapy Visit [address] [place] [address] Ky Torres MD [address] [place] [address] 05/27/2024 9:45 AM CNC SPECIALIST Office Visit [address] [place] [address] Alvaro Clark MD [address] [place] [address] documented as of this encounter Visit Diagnoses Not on filedocumented in this encounter Care Teams Bonded Structures Repairer Relationship Specialty Start Date End Date System, Provider Not In PCP - General Clinic 08/13/23 12/21/23 No Ref-Primary, Physician PCP - General 12/22/23 12/27/23 Bhavin Gardner [place] [address] PCP - General Family Medicine 12/28/23 Alvaro Clark MD [address] [place] [address] 357855 Assigned Surgical Provider 07/24/23 Sixto Whalen APRN CNP [address] [place] [address] Assigned Cancer Care Provider 10/22/23 12/21/23 Yessica Mcleod PA-C [address] [place] [address] 325815 Assigned Cancer Care Provider 12/22/23 01/21/24 Ky Torres MD [address] [place] [address] 650145 Assigned Cancer Care Provider 01/22/24 documented as of this encounter
--- OUTSIDE RECORDS SUMMARY | 2024-04-07 22:24 | XMS_ITS | Encounter Summary ---
Author Organization [facility] Address [address] [place] [address]. [place] [address] Care Team Providers Care Instrument And Controls Technician Name Role Phone Alvaro Clark MD Unavailable System, Provider Not In Primary Care Provider Un available Ky Torres MD Unavailable [phone] Sixto Whalen APRN NAVAL ARCHITECT SPECIALIST Unavailable [phone] No Ref-Primary, Physician Primary Care Provider Yessica Mcleod PA-C Unavailable Bhavin Gardner Primary Care Provider [phone] Ky Torres MD Unavailable [phone] Encounter Details Date Type Department Care Team (Late st Contact Info) Description 09/26/2023 MyC Medical Advice M [facility] [place] [address], [address] [place] [address] Ky Torres MD 420 [facility] 480 [place] [address] Social History Tobacco Use Types [...] on file Legal Sex Male 4:18 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 Gender Identity Not on file Sexual Orientation Not on file 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 file documented as of this encounter Plan of Treatment Upcoming Encounters Date Type Department Care Team (Late st Contact Info) Description 04/22/2024 10:15 AM HOTEL 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 Lab [address] [place] [address] Yessica Mcleod PA-C 902 [place], [place] [address] 04/22/2024 11:00 AM HOTEL 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 Oncology Visit [address] [place] [address] Yessica Mcleod PA-C [address] [place] [address] 578925 Dylan Guerin PA 909 [place], [place] 39[address] 04/22/2024 12:00 PM HOTEL 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 Infusion Therapy Visit [place] [address] [place] [address] Ky Torres MD [address] 1433[address] 05/02/2024 10:30 AM HOTEL 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 Lab [address] [place] [address] Ky Torres MD [address] 158065 05/02/2024 11:20 AM HOTEL 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 Appointment [facility] [address] [place] [address] Ky Torres MD 420 [facility] 480 [place] [address] 05/06/2024 10:00 AM HOTEL 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 Oncology Visit [address] 200 [facility] [place] [address] Ky Torres MD 420 [facility] 480 [place] [address] 05/20/2024 11:00 AM HOTEL 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 Infusion Therapy Visit [facility] [address] [place] [address] yK Torres MD [address] [address] 05/27/2024 9:45 AM HOTEL 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 Office Visit [address] 200 [facility] [place] [address] Alvaro Clark MD 420 [facility] 394 [place] [address] documented as of this encounter Visit Diagnoses Not on filedocumented in this encounter Care Teams Instrument And Controls Technician Relationship Specialty Start Date End Date System, Provider Not In PCP - General Clinic 08/13/23 12/21/23 No Ref-Primary, Physician PCP - General 12/22/23 12/27/23 Bhavin Gardner [address] [place] [address] PCP - General Family Medicine 12/28/23 Alvaro Clakr MD [address] [place] [address] 394 [place] [address] Assigned Surgical Provider 07/24/23 Ky Torres MD [address] [place] [address] Assigned Cancer Care Provider 09/22/23 10/21/23 Sixto Whalen APRN CNP [address] [place] [address] Assigned Cancer Care Provider 10/22/23 12/21/23 Yesisca Mcleod PA-C [address] [place] [address] Assigned Cancer Care Provider 12/22/23 01/21/24 Ky Torres MD [address] [place] [address] Assigned Cancer Care Provider 01/22/24 documented as of this encounter
--- OUTSIDE RECORDS SUMMARY | 2024-04-07 22:24 | XMS_ITS | Encounter Summary ---
Author Organization [facility] Address [address] [place] [address] Care Team Providers Care Human Resources Services Specialist Name Role Phone Alvaro Clark MD Unavailable No Ref-Primary, Physician Primary Care Provider Yessica Mcleod PA-C Unavailable Bhavin Gardner Primary Care Provider [phone] Ky Torres MD Unavailable [phone] Encounter Details Date Type Department Care Team (Late st Contact Info) Description 12/26/2023 MyC Medical Advice [facility] [place] [address] [place] [address] [address] 200 [facility] [place] [place] [address] Alvaro Clark MD [address] [facility] 394 [place] [address] Urothelial cancer (H) (Primary Dx) [...] on file Legal Sex Male 4:18 PM 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 RENTAL CLERK Gender Identity Not on file Sexual Orientation Not on file 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 file documented as of this encounter Plan of Treatment Upcoming Encounters Date Type Department Care Team (Late st Contact Info) Description 04/22/2024 10:15 AM AUTOMOBILE RENTAL CLERK Lab [address] [place] [address] Yessica Mcleod PA-C 909 [place], [place] 29[address] 04/22/2024 11:00 AM AUTOMOBILE RENTAL CLERK Oncology Visit [address] [place] [address] Yessica Mcleod PA-C 909 [place] [address] Dylan Guerin PA 909 [place], [place] [address] 04/22/2024 12:00 PM AUTOMOBILE RENTAL CLERK Infusion Therapy Visit [address] [place] [address] Ky Torres MD [address] [address] 05/02/2024 10:30 AM AUTOMOBILE RENTAL CLERK Lab [address] [place] [address] Ky Torres MD 420 [facility] 480 [place] [address] 05/02/2024 11:20 AM AUTOMOBILE RENTAL CLERK Appointment [facility] Imaging [address] [place] [address] [place] [address] Ky Torres MD 420 [facility] 480 [place] [address] 05/06/2024 10:00 AM AUTOMOBILE RENTAL CLERK Oncology Visit [address] [place] [address] Ky Torres MD [address] [address] 05/20/2024 11:00 AM AUTOMOBILE RENTAL CLERK Infusion Therapy Visit [address] [place] [address] Ky Torres MD [address] [place] [address] 05/27/2024 9:45 AM AUTOMOBILE RENTAL CLERK Office Visit [address] [place] [address] Alvaro Clark MD [address] [place] [address] 244325 documented as of this encounter Visit Diagnoses Diagnosis Urothelial cancer (H)- Primary Malignant neoplasm of other specified sites of urinary organs documented in this encounter Care Teams Human Resources Services Specialist Relationship Specialty Start Date End Date No Ref-Primary, Physician PCP - General 12/22/23 12/27/23 Bhavin Gardner [address] [place] [address] PCP - General Family Medicine 12/28/23 Alvaro Clark MD [address] [place] [address] Assigned Surgical Provider 07/24/23 Yessica Mcleod PA-C [address] [place] [address] 514805 Assigned Cancer Care Provider 12/22/23 01/21/24 Ky Torres MD [address] [place] [address] 160895 Assigned Cancer Care Provider 01/22/24 documented as of this encounter
--- OUTSIDE RECORDS SUMMARY | 2024-04-07 22:24 | XMS_ITS | Encounter Summary ---
Author Organization [facility] Address [address] [place] [address] Care Team Providers Care Mandrel Maker Name Role Phone Dalila Arrieta Unavailable [phone] System, Provider Not In Primary Care Provider Un available Alvaro Clark MD Unavailable System, Provider Not In Primary Care Provider Un available Ky Torres MD Unavailable [phone] Sixto Whalen APRN BUSINESS INSURANCE AGENT Unavailable [phone] No Ref-Primary, Physician Primary Care Provider Yessica Mcleod PA-C Unavailable Bhavin Gardner Primary Care Provider [phone] Ky Torres MD Unavailable [phone] Reason for Visit * Reason Onset Date Comments Appointment 06/08/2023 Patient needs an appointment for retention and hematuria - please call. Encounter Details Date Type Department Care Team (Late st Contact Info) Description 06/08/2023 Telephone [facility] Urology Clinic [address] 4[address] [place] [address] None Appointment (Patient needs an appointment for retention and hematuria - please call. ) Social History Tobacco Use Types Packs/Day Years Used Date Smoking Tobacco: Never Assessed Adolescent Education Answer Date Record ed Getting School Help Needed Not on file 06/08 Sex and Gender Information Value Date Recorded Sex Assigned at Not on file Legal Sex Male 4:18 PM PLACEMENT INTERVIEWER Gender Identity Not on file Sexual Orientation Not on file documented as of this encounter Miscellaneous Notes * Telephone Encounter - Angelic Juan - 06/10/2023 8:11 AM CST Action 06/10/23 ROSALIE 8:11 AM Action Taken Records from [facility] ER received. Sent to urgent scanning to be uploaded. EMENT INTERVIEWER * Telephone Encounter - Jacque Chan, CARLOS - 06/09/2023 3:14 PM CST Spoke with Zoraida, Patient's niece. He was seen for retention at [facility] ER. They had referred him to be seen by [facility] but they declined due to being too far away. They would like to be seen at [facility].Patient scheduled for next available with Carolina Arrieta. Zoraida has a disc with imaging and ED notes. Encounter sent to Kandi Romo to try and bring in anyrecords from [facility]. Jacque Chan RN on 06/09/2023 at 3:20 PM EMENT INTERVIEWER * Telephone Encounter - Rosalinda Hendricks - 06/08/2023 4:27 PM CST [facility] Center Phone Message May a [...] Message routed to: [facility] ([facility]): URO Travel Screening: Not Applicable EMENT INTERVIEWER documented in this encounter Plan of Treatment Upcoming Encounters Date Type Department Care Team (Late st Contact Info) Description 04/22/2024 10:15 AM PLACEMENT INTERVIEWER [facility] [place] [address] [place] [address] [place] [address] Yessica Mcleod PA-C 909 [place] [address] 04/22/2024 11:00 AM PLACEMENT INTERVIEWER Oncology Visit [address] [place] [address] Yessica Mcleod PA-C 909 [place] [address] Dylan Guerin PA 909 [place] [address] 04/22/2024 12:00 PM PLACEMENT INTERVIEWER Infusion Therapy Visit [address] [place] [address] Ky Torres MD [address] [address] 05/02/2024 10:30 AM PLACEMENT INTERVIEWER Lab [address] [place] [address] Ky Torres MD 420 [facility] 480 [place] [address] 05/02/2024 11:20 AM PLACEMENT INTERVIEWER Appointment [facility] [address] [place] [address] [place] [address] Ky Torres MD 420 [facility] 480 [place] [address] 05/06/2024 10:00 AM PLACEMENT INTERVIEWER Oncology Visit [address] [place] [address] Ky Torres MD 420 [facility] 480 [place] [address] 05/20/2024 11:00 AM PLACEMENT INTERVIEWER Infusion Therapy Visit [address] [place] [address] Ky Torres MD 420 [facility] 480 [place] [address] 05/27/2024 9:45 AM PLACEMENT INTERVIEWER Office Visit [address] [place] [address] Alvaro Clark MD 420 [facility] 394 [place], [place] 9[address] documented as of this encounter Visit Diagnoses Not on filedocumented in this encounter Care Teams Mandrel Maker Relationship Specialty Start Date End Date System, Provider Not In PCP - General Clinic 07/20/23 07/20/23 System, Provider Not In PCP - General Clinic 08/13/23 12/21/23 No Ref-Primary, Physician PCP - General 12/22/23 12/27/23 Bhavin Gardner 1400 [place] [address] PCP - General Family Medicine 12/28/23 Dalila Arrieta PA 909 [facility] Urology [place], [place] 584465 Assigned Surgical Provider 07/03/23 Alvaro Clark MD 420 [facility] [address] [place], [place] [address] Assigned Surgical Provider 07/24/23 Ky Torres MD [address] 818695 Assigned Cancer Care Provider 09/22/23 10/21/23 Sixto Whalen APRN CNP [address] [place] [address] 346745 Assigned Cancer Care Provider 10/22/23 12/21/23 Yessica Mcleod PA-C [address] [place] [address] Assigned Cancer Care Provider 12/22/23 01/21/24 Ky Torres MD [address] [place] [address] 694345 Assigned Cancer Care Provider 01/22/24 documented as of this encounter
--- OUTSIDE RECORDS SUMMARY | 2024-04-07 22:24 | XMS_ITS | Encounter Summary ---
Author Organization [facility] Address [address] [place] [address] Care Team Providers Care Forging Engineer Name Role Phone Alvaro Clark MD Unavailable System, Provider Not In Primary Care Provider Un available Ky Torres MD Unavailable [phone] Sixto Whalen APRN MAILER APPRENTICE Unavailable [phone] No Ref-Primary, Physician Primary Care Provider Yessica Mcleod PA-C Unavailable Bhavin Gardner Primary Care Provider [phone] Ky Torres MD Unavailable [phone] Encounter Details Date Type Department Care Team (Late st Contact Info) Description 09/28/2023 [facility] Medical Advice [facility] [place] [address] [place] [address] DAIS[address] 200 [facility] [place] [address] Charlie Almonte, RN Urothelial cancer [...] on file Legal Sex Male 4:18 PM TECHNOLOGY PROJECT MANAGER Gender Identity Not on file Sexual Orientation Not on file 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 file documented as of this encounter Plan of Treatment Upcoming Encounters Date Type Department Care Team (Late st Contact Info) Description 04/22/2024 10:15 AM TECHNOLOGY PROJECT MANAGER Lab [address] [place] [address] Yessica Mcleod PA-C 9 [place] [address] 04/22/2024 11:00 AM TECHNOLOGY PROJECT MANAGER Oncology Visit [address] [place] [address] Yessica Mcleod PA-C 9 [place], [place] 0[address]35 Dylan Guerin PA 909 [place], [place] 8048[address] 04/22/2024 12:00 PM TECHNOLOGY PROJECT MANAGER Infusion Therapy Visit [address] [place] [address] Ky Torres MD [address] [address] 05/02/2024 10:30 AM TECHNOLOGY PROJECT MANAGER Lab [address] [place] [address] Ky Torres MD [address] [address] 05/02/2024 11:20 AM TECHNOLOGY PROJECT MANAGER Appointment [facility] [address] [place] [address] Ky Torres MD 420 [facility] 480 [place] [address] 05/06/2024 10:00 AM TECHNOLOGY PROJECT MANAGER Oncology Visit [address] 200 [facility] [place] [address] Ky Torres MD 420 [facility] 480 [place] [address] 05/20/2024 11:00 AM TECHNOLOGY PROJECT MANAGER Infusion Therapy Visit [facility] [address] [place] [address] Ky Torres MD 420 [facility] 480 [place] [address] 05/27/2024 9:45 AM TECHNOLOGY PROJECT MANAGER Office Visit [address] 200 [facility] [place] [address] Alvaro Clark MD 420 [facility] 394 [place], [place] 8[address] documented as of this encounter Visit Diagnoses Diagnosis Urothelial cancer (H)- Primary Malignant neoplasm of other specified sites of urinary organs documented in this encounter Care Teams Forging Engineer Relationship Specialty Start Date End Date System, Provider Not In PCP - General Clinic 08/13/23 12/21/23 No Ref-Primary, Physician PCP - General 12/22/23 12/27/23 Bhavin Gardner: [phone] [place] [address] PCP - General Family Medicine 12/28/23 Alvaro Clark MD [address] 611915 Assigned Surgical Provider 07/24/23 Ky Torres MD [address] [place] [address] 000485 Assigned Cancer Care Provider 09/22/23 10/21/23 Sixto Whalen APRN CNP [address] [place] [address] 264695 Assigned Cancer Care Provider 10/22/23 12/21/23 Yessica Mcleod PA-C [address] [place] [address] 460415 Assigned Cancer Care Provider 12/22/23 01/21/24 Ky Torres MD [address] [place] [address] 264255 Assigned Cancer Care Provider 01/22/24 documented as of this encounter
--- OUTSIDE RECORDS SUMMARY | 2024-04-07 22:24 | XMS_ITS ---
Author Organization [facility] Address [address] [place] [address] Care Team Providers Care Animal Laboratory Helper Name Role Phone Alvaro Clark MD Unavailable Bhavin Gardner Primary Care Provider [phone] Ky Torres MD Unavailable [phone] Transitional Care Management Status:Closed (Closed) Start date:12/25/2023 Enrollment date:12/27/2023 End date:01/08/2024 Close reason:Goals met Continued Care and Services Coordination
--- OUTSIDE RECORDS SUMMARY | 2024-04-07 22:24 | XMS_ITS | Encounter Summary ---
Author Organization [place] Address [address] [place] [address] Care Team Providers Care Ep Specialist Name Role Phone Dalila Arrieta Unavailable [phone] System, Provider Not In Primary Care Provider Un available Alvaro Clrak MD Unavailable System, Provider Not In Primary Care Provider Un available Ky Torres MD Unavailable [phone] Sixto Whalen APRN CEMETERY LABORER Unavailable [phone] No Ref-Primary, Physician Primary Care Provider Yessica Mcleod PA-C Unavailable Bhavin Gardner Primary Care Provider [phone] Ky Torres MD Unavailable [phone] Encounter Details Date Type Department Care Team (Late st Contact Info) Description 07/17/2023 [facility] Medical Advice [facility] [address] 5th [place] [address] Lisa Guevara, RN Social History [...] on file Legal Sex Male 4:18 PM BOBCAT OPERATOR Gender Identity Not on file Sexual Orientation Not on file 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 file documented as of this encounter Plan of Treatment Upcoming Encounters Date Type Department Care Team (Late st Contact Info) Description 04/22/2024 10:15 AM BOBCAT OPERATOR Lab [address] [place] [address] Yessica Mcleod PA-C [address] [place] [address] 04/22/2024 11:00 AM BOBCAT OPERATOR Oncology Visit [address] [place] [address] Yessica Mcleod PA-C [address] [place] [address] 634445 Dylan Guerin PA 9 [place], [place] [address]27[address] 04/22/2024 12:00 PM BOBCAT OPERATOR Infusion Therapy Visit [address] [place] [address] Ky Torres MD [address] [place] [address] 228145 05/02/2024 10:30 AM BOBCAT OPERATOR Lab [address] [place] [address] Ky Torres MD [address] [id number] 05/02/2024 11:20 AM BOBCAT OPERATOR Appointment [facility] [address] [place] [address] Ky Torres MD 420 [facility] 480 [place] [address] 05/06/2024 10:00 AM BOBCAT OPERATOR Oncology Visit [facility] [address] [place] [address] [address] [facility] [address] Ky Torres MD 420 [facility] 480 [place], [place] 60[address] 05/20/2024 11:00 AM BOBCAT OPERATOR Infusion Therapy Visit [facility] [address] [place] [address] Ky Torres MD 420 [facility] 480 [place] [address] 05/27/2024 9:45 AM BOBCAT OPERATOR Office Visit [address] [facility] [place] [address] Alvaro Clark MD 420 [facility] 394 [place], [place] 294755 documented as of this encounter Visit Diagnoses Not on filedocumented in this encounter Care Teams Ep Specialist Relationship Specialty Start Date End Date System, Provider Not In PCP - General Clinic 07/20/23 07/20/23 System, Provider Not In PCP - General Clinic 08/13/23 12/21/23 No Ref-Primary, Physician PCP - General 12/22/23 12/27/23 Bhavin Gardner [address] [place] [address] PCP - General Family Medicine 12/28/23 Dalila Arrieta PA [address] [place] [address] [place] [address] Assigned Surgical Provider 07/03/23 Alvaro Clark MD [address] [place] [address] Assigned Surgical Provider 07/24/23 Ky Torres MD [address] [place] [address] Assigned Cancer Care Provider 09/22/23 10/21/23 Sixto Whalen APRN CNP [address] [place] [address] Assigned Cancer Care Provider 10/22/23 12/21/23 Yessica Mcleod PA-C [address] [place] [address] Assigned Cancer Care Provider 12/22/23 01/21/24 Ky Torres MD [address] [place] [address] Assigned Cancer Care Provider 01/22/24 documented as of this encounter
--- OUTSIDE RECORDS SUMMARY | 2024-04-07 22:24 | XMS_ITS | Encounter Summary ---
Author Organization [place] Address [address] [place] [address] Care Team Providers Care Packing And Final Assembly Supervisor Name Role Phone Alvaro Clark MD Unavailable System, Provider Not In Primary Care Provider Un available Sixto Whalen APRN GARMENT PARTS CUTTER HAND Unavailable [phone] No Ref-Primary, Physician Primary Care Provider Yessica Mcleod PA-C Unavailable Bhavin Gardner Primary Care Provider [phone] Ky Torres MD Unavailable [phone] Encounter Details Date Type Department Care Team (Late st Contact Info) Description 11/17/2023 [facility] Medical Advice [facility] [place] [address], DAISY [address] [place] [address] Sixto Whalen APRN GARMENT PARTS CUTTER HAND 9[address] [place] [address] Social History Tobacco Use Types Packs/Day Years [...] on file Legal Sex Male 4:18 PM APPEALS AND GENERALIST CLERK Gender Identity Not on file Sexual Orientation Not on file 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 file documented as of this encounter Plan of Treatment Upcoming Encounters Date Type Department Care Team (Late st Contact Info) Description 04/22/2024 10:15 AM APPEALS AND GENERALIST CLERK Lab [address] [place] [address] Yessica Mcleod PA-C 909 [place] [address] 04/22/2024 11:00 AM APPEALS AND GENERALIST CLERK Oncology Visit [address] [place] [address] Yessica Mcleod PA-C 902 [place], [place] 7825[address] Dylan Guerin PA 909 [place], [place] 15[address] 04/22/2024 12:00 PM APPEALS AND GENERALIST CLERK Infusion Therapy Visit [address] [place] [address] Ky Torres MD [address] [place] [address] 05/02/2024 10:30 AM APPEALS AND GENERALIST CLERK Lab [address] [place] [address] Ky Torres MD [address] [address] 05/02/2024 11:20 AM APPEALS AND GENERALIST CLERK Appointment [facility] Imaging [address] [place] [place] [address] Ky Torres MD 420 [facility] 480 [place] [address] 05/06/2024 10:00 AM APPEALS AND GENERALIST CLERK Oncology Visit [address] [facility] [place] [address] Ky Torres MD 420 [facility] 480 [place] [address] 05/20/2024 11:00 AM APPEALS AND GENERALIST CLERK Infusion Therapy Visit [address] [place] [address] Ky Torres MD 420 [facility] 480 [place] [address] 05/27/2024 9:45 AM APPEALS AND GENERALIST CLERK Office Visit [address] [facility] [place] [address] Alvaro Clark MD 420 [facility] 394 [place], [place] [address] documented as of this encounter Visit Diagnoses Not on filedocumented in this encounter Care Teams Packing And Final Assembly Supervisor Relationship Specialty Start Date End Date System, Provider Not In PCP - General Clinic 08/13/23 12/21/23 No Ref-Primary, Physician PCP - General 12/22/23 12/27/23 Bhavin Gardner: [phone] [address] [place] [address] PCP - General Family Medicine 12/28/23 Alvaro Clark MD 420 [facility] 394 [place], [place] 5[address] Assigned Surgical Provider 07/24/23 Sixto Whalen APRN CNP [address] [place] [address] Assigned Cancer Care Provider 10/22/23 12/21/23 Yessica Mcleod PA-C [address] [place] [address] Assigned Cancer Care Provider 12/22/23 01/21/24 Ky Torres MD 420 [facility] [address] [place], [place] [address] Assigned Cancer Care Provider 01/22/24 documented as of this encounter
--- OUTSIDE RECORDS SUMMARY | 2024-04-07 22:24 | XMS_ITS | Encounter Summary ---
Author Organization [place] Address [address] [place] [address] Care Team Providers Care Radio Repairman Name Role Phone Alvaro Clark MD Unavailable System, Provider Not In Primary Care Provider Un available Ky Torres MD Unavailable [phone] Sixto Whalen APRN CHIEF TRANSFER AND PUMPHOUSE OPERATOR Unavailable [phone] No Ref-Primary, Physician Primary Care Provider Yessica Mcleod PA-C Unavailable Bhavin Gardner Primary Care Provider [phone] Ky Torres MD Unavailable [phone] Encounter Details Date Type Department Care Team (Late st Contact Info) Description 07/24/2023 MyC Medical Advice [facility] Urology Clinic [address] 4th [place] [address] Diamond Conway, RN Social History [...] on file Legal Sex Male 4:18 PM HIDE SPLITTER Gender Identity Not on file Sexual Orientation Not on file 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 file documented as of this encounter Plan of Treatment Upcoming Encounters Date Type Department Care Team (Late st Contact Info) Description 04/22/2024 10:15 AM HIDE SPLITTER Lab [address] [place] [address] Yessica Mcleod PA-C 909 [place], [place] [address] 04/22/2024 11:00 AM HIDE SPLITTER Oncology Visit [address] [place] [address] Yessica Mcleod PA-C 909 [place], [place] [address] Dylan Guerin PA 909 [place], [place] 9905[address] 04/22/2024 12:00 PM HIDE SPLITTER Infusion Therapy Visit [address] [place] [address] Ky Torres MD [address] 9[address] 05/02/2024 10:30 AM HIDE SPLITTER Lab [address] [place] [address] Ky Torres MD 420 [facility] 480 [place] [address] 05/02/2024 11:20 AM HIDE SPLITTER Appointment [facility] Imaging [address] [address] [place] [address] Ky Torres MD [address] [address] 05/06/2024 10:00 AM HIDE SPLITTER Oncology Visit [address] [place] [address] Ky Torres MD [address] [address] 05/20/2024 11:00 AM HIDE SPLITTER Infusion Therapy Visit [address] [place] [address] Ky Torres MD [address] [place] [address] 05/27/2024 9:45 AM HIDE SPLITTER Office Visit [address] [place] [address] Alvaro Clark MD [address] [place] [address] documented as of this encounter Visit Diagnoses Not on filedocumented in this encounter Care Teams Radio Repairman Relationship Specialty Start Date End Date System, Provider Not In PCP - General Clinic 08/13/23 12/21/23 No Ref-Primary, Physician PCP - General 12/22/23 12/27/23 Bhavin Gardner [address] [place] [address] PCP - General Family Medicine 12/28/23 Alvaro Clark MD [address] [place] [address] 394 [place] [address] Assigned Surgical Provider 07/24/23 Ky Torres MD [address] [place] [address] Assigned Cancer Care Provider 09/22/23 10/21/23 Sixto Whalen APRN CNP [address] [place] [address] 182535 Assigned Cancer Care Provider 10/22/23 12/21/23 Yessica Mcleod PA-C [address] [place] [address] 092505 Assigned Cancer Care Provider 12/22/23 01/21/24 Ky Torres MD [address] [place] [address] 179675 Assigned Cancer Care Provider 01/22/24 documented as of this encounter
--- OUTSIDE RECORDS SUMMARY | 2024-04-07 22:24 | XMS_ITS | Encounter Summary ---
Author Organization [place] Address [address] [place] [address] Care Team Providers Care Rn Concurrent Review Name Role Phone Dalila Arrieta Unavailable [phone] System, Provider Not In Primary Care Provider Un available Alvaro Clark MD Unavailable System, Provider Not In Primary Care Provider Un available Ky Torres MD Unavailable [phone] Sixto Whalen APRN, CNP Unavailable [phone] No Ref-Primary, Physician Primary Care Provider Yessica Mcleod PA-C Unavailable Bhavin Gardner Primary Care Provider [phone] Ky Torres MD Unavailable [phone] Reason for Visit * Reason Onset Date Comments Patient Request 06/15/2023 Encounter Details Date Type Department Care Team (Late st Contact Info) Description 06/15/2023 [facility] Urology Clinic [address] [place] [address] Dalila Arrieta PA [address] [place] [address] [place] [address] Patient Request Social History Tobacco Use Types Packs/Day Years Used Date Smoking Tobacco: Never Assessed Adolescent Education Answer Date Record ed Getting School Help Needed Not on file 06/08 Sex and Gender Information Value Date Recorded Sex Assigned at Not on file Legal Sex Male 4:18 PM BLAST FURNACE TENDER Gender Identity Not on file Sexual Orientation Not on file documented as of this encounter Miscellaneous Notes * Telephone Encounter - Pia Caceres - 06/15/2023 10:22 AM CST [facility] Phone Message May a detailed message be left on voicemail: yes Reason for Call: Other: Pt razia Conway calling regarding pt upcoming appt for retention. Zoraida states pt is requesting a morning appt if possible. Please call Zoraida Action Taken: Message routed to: Other: [employer]ro Travel Screening: Not Applicable T FURNACE TENDER documented in this encounter Plan of Treatment Upcoming Encounters Date Type Department Care Team (Late st Contact Info) Description 04/22/2024 10:15 AM BLAST FURNACE TENDER Lab [address] [place] [address] Yessica Mcleod PA-C [address] [place] [address]74[address] 04/22/2024 11:00 AM BLAST FURNACE TENDER Oncology Visit [place] [address] [place] [address] [place] [address] Yessica Mcleod PA-C [address] [place] [address] 845525 Dylan Guerin PA [address] [place] [address] 22584[address] 04/22/2024 12:00 PM BLAST FURNACE TENDER Infusion Therapy Visit [place] [address] [place] [address] [place] [address] Ky Torres MD [address] [place] [address] 05/02/2024 10:30 AM BLAST FURNACE TENDER Lab [address] [place] [address] Ky Torres MD [address] [facility] 480 [place] [address] 05/02/2024 11:20 AM BLAST FURNACE TENDER Appointment [facility] Imaging [address] [place] [address] [place] [address] Ky Torres MD 420 [facility] 480 [place] [address] 05/06/2024 10:00 AM BLAST FURNACE TENDER Oncology Visit [address] [place] [address] Ky Torres MD 420 [facility] 480 [place] [address] 05/20/2024 11:00 AM BLAST FURNACE TENDER Infusion Therapy Visit [address] [place] [address] Ky Torres MD [address] [facility] 480 [place] [address] 05/27/2024 9:45 AM BLAST FURNACE TENDER Office Visit [address] [place] [address] Alvaro Clark MD [address] [facility] 394 [place], [place] 2[address] documented as of this encounter Visit Diagnoses Not on filedocumented in this encounter Care Teams Rn Concurrent Review Relationship Specialty Start Date End Date System, Provider Not In PCP - General Clinic 07/20/23 07/20/23 System, Provider Not In PCP - General Clinic 08/13/23 12/21/23 No Ref-Primary, Physician PCP - General 12/22/23 12/27/23 Bhavin Gardner [address] [place] [address] PCP - General Family Medicine 12/28/23 Dalila Arrieta PA [address] [place] [address] Urology [place], [place] 243775 Assigned Surgical Provider 07/03/23 Alvaro Clark MD [address] [place] [address] 394 [place], [place] 229435 Assigned Surgical Provider 07/24/23 Ky Torres MD [address] [place] [address] 480 [place], [place] 314475 Assigned Cancer Care Provider 09/22/23 10/21/23 Sixto Whalen APRN CNP [address] [place] [address] 788785 Assigned Cancer Care Provider 10/22/23 12/21/23 Yessica Mcleod PA-C [address] [place] [address] 961585 Assigned Cancer Care Provider 12/22/23 01/21/24 Ky Torres MD [address] [place] [address] 480 [place] [address] Assigned Cancer Care Provider 01/22/24 documented as of this encounter
[2024-04-07] MEDS: LIDOCAINE 1% 5 ml (pf) 5 ML VIAL 2.1 ML IM (22:55)
[2024-04-07] MEDS: cefTRIAXone 1 GM VIAL IM (22:55)
[2024-04-07 23:06] VITALS: BP 124/74; PULSE 81; RESP 16; TEMP 36.6; O2SAT 100
[2024-04-07 23:07] VITALS: BP 124/74; PULSE 81; RESP 16; TEMP 36.6
== END 2024-04-07 23:07 | disposition home or self-care (01) ==
LOC: ED 22:20
PROVIDERS: Emergency Provider Emergency Medicine Emergency Medical Services; PCP Family Medicine
DX: N39.0 Urinary tract infection, site not specified (principal)
CPT/HCPCS: 81001; 87086; 96372; 99283; 99284; J0696

== ENCOUNTER 2024-11-26 01:53 | Emergency (ER) | payer MEDICARE, OTHER, SELFPAY ==
--- OUTSIDE RECORDS SUMMARY | 2024-11-04 09:02 | XMS_ITS | Encounter Summary ---
Author Organization [facility] Address [address] [place] [address] Care Team Providers Care Custom Seamstress Name Role Phone Alvaro Clark MD Unavailable Bhavin Gardner Primary Care Provider [phone] Dylan Guerin Unavailable [phone] Reason for Referral * Diagnostic Imaging CT Scan (Routine) - Closed Specialty Diagnoses / Procedures Referred By Virgil ca Referred To Contact Radiology. Diagnoses Urothelial cancer (H) Malignant neoplasm of anterior wall of urinary bladder (H) Procedures CT Chest/Abdomen/[place] [address] [address] [place] [address] Phone: tel: fax: Referral ID Status Reason Start Date Expiration Date Visits Re quested Visits Authorized [id number] Closed 10/05/2024 10/05/2025 1 1 Reason for Visit * Diagnostic Imaging CT Scan (Routine) - Closed Specialty Diagnoses / Procedures Referred By Contkatlyn ca Referred To Contact Radiology. Diagnoses Urothelial cancer (H) Malignant neoplasm of anterior wall of urinary bladder (H) Procedures CT Chest/Abdomen/[place] [address] [address] [place] [address] Phone: tel: fax: Referral ID Status Reason Start Date Expiration Date Visits Re quested Visits Authorized [id number] Closed 10/05/2024 10/05/2025 1 1 Encounter Details Date Type Department Care Team (Latest Contact Info) Description 11/04/2024 9:02 AM CDT - 11/04/2024 11:59 PM CDT Hospital Encounter [facility] [address] [place] [phone] [place] [address] [facility] [address] [place] [address] Urothelial cancer (H); Malignant neoplasm of anterior wall of urinary bladder (H) Discharge Disposition: Home or Self Care Social History Tobacco Use Types Packs/Day Years Used Date Smoking Tobacco: Former Cigarettes 1.5 30 1 2009 Passive Smoke Exposure: Past Smokeless Tobacco: Never Alcohol Use Standard Drinks/Week Comments Never 0 (1 standard drink = 0.6 oz pur e alcohol) PHQ-2 Answer Date Recorded PHQ-2 Score 1 07/15/2024 Adolescent Education Answer Date Record ed Getting School Help Needed Not on file 06/08 Sex and Gender Information Value Date Recorded Sex Assigned at Not on file Legal Sex 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 Gender Identity Not on file Sexual Orientation Not on file 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 18 g 3 10/05/2024 diphenhydrAMINE HCl (BENADRYL ALLERGY PO) Take 1 tablet by mouth as needed polyethylene glycol (MIRALAX) 17 GM/Dose powderIndications :Postoperative state Take 17 g by mouth daily 510 g 12/25/2023 senna-docusate (SENOKOT-S/DALE LACE) 8.6-50 MG tabletIndications :Postoperative state Take 1 tablet by mouth 2 times daily 40 tablet 12/25/2023 triamcinolone (KENALOG) 0.1 % external lotionIndications :Drug rash,Malignant neoplasm of anterior wall of urinary bladder (H) Apply topically 3 times daily. To itchy areas. 60 mL 2 04/22/2024 cephALEXin (KEFLEX) 500 MG capsuleIndication s:Urothelial cancer (H),Complicated UTI (urinary tract infection) Take 1 capsule (500 mg) by mouth 2 times daily for 10 days. 20 capsule 11/11/2024 documented as of this encounter Plan of Treatment Upcoming Encounters Date Type Department Care Team (Late st Contact Info) Description 11/30/2024 1:00 PM CDT Infusion Therapy Visit [place] [address] [place] [phone] [place] [address] [place] [address] 11/30/2024 1:30 PM CDT Oncology Visit [place] [address]AC[address]BS 200 [facility] [place] [phone] [place] [address] [place] [address] 11/30/2024 2:30 PM CDT Infusion Therapy Visit [facility] [place] [address] [place] [phone] Ky Torres MD 420 [facility] [address] [place], [place] [address] 12/30/2024 1:15 PM CDT Infusion Therapy Visit [address]ACOBS [address] [place] [phone] Yessica Mcleod PA-C [address] [place] [address] 12/30/2024 1:30 PM CDT Oncology Visit [address]ACOBS [address] [place] [phone] Yessica Mcleod PA-C [address]ACOBS [address] [place], [place] [address] 12/30/2024 2:30 PM CDT Infusion Therapy Visit [address] JACOBS [address] [place] [phone] Ky Torres MD 420 [facility] [address] [place], [place] [address] 01/27/2025 1:00 PM CDT Infusion Therapy Visit [address] JACOBS [address] [place] [phone] Ky Torres MD 420 [facility] [address] [place], [place] [address] 01/27/2025 1:30 PM CDT Oncology Visit [address] JACOBS [address] [place] [phone] [place] [address] [place], [place] [address] Yessica Mcleod PA-C [address]AC[address]BS 200 [place] [address] 01/27/2025 2:30 PM CDT Infusion Therapy Visit [facility] [address] [place] [phone] Ky Torres MD [address] [id number] documented as of this encounter Procedures Procedure Name Priority Date/Time Associated Diagnosis Comments CT CHEST/ABDOMEN/PELVI S W CONTRAST Routine 11/04/2024 9:48 AM CDT Urothelial cancer (H) Malignant neoplasm of anterior wall of urinary bladder (H) documented in this encounter Results * CT Chest/Abdomen/Pelvis w Contrast (11/04/2024 9:48 AM CDT) Anatomical Region Laterality Modality Abdomen/Pelvis, Chest, SUBRA D CT BODY, UMP CT CHEST, UMP CT ABDOMEN PELVIS, RAD CT Computed Tomography 11/04/2024 9:48 AM CDT Impressions 11/04/2024 4:51 PM CDT IMPRESSION: 1. Worsening scattered areas of decreased cortical enhancement in both kidneys. Findings are concerning for worsening bilateral pyelonephritis. Recommend correlation with urinalysis. 2. Stable mild wall thickening along the neobladder which may indicate cystitis. Suggest correlation with urinalysis. 3. Stable low-attenuation lesions in liver. 4. Stable pulmonary nodules measuring up to 3 mm. 5. Mild bilateral bronchial wall thickening suggestive of bronchitis. 6. Stable prominent mediastinal and hilar lymph nodes as described above. 7. Mild wall thickening seen within the sigmoid and proximal transverse colon. Findings suspected to reflect underdistention given lack of surrounding inflammatory changes. Mild colitis is also in the differential diagnosis but considered to be less likely. Suggest correlation with clinical exam. Narrative 11/04/2024 4:51 PM CDT EXAM: CT CHEST/ABDOMEN/PELVIS W CONTRAST LOCATION: [facility] DATE: 11/04/2024 INDICATION: monitoring bladder cancer on immunotherapy COMPARISON: CT chest, abdomen and pelvis performed on 08/01/2024 TECHNIQUE: CT scan of the chest, abdomen, and pelvis was performed following injection of IV contrast. Multiplanar reformats were obtained. Dose reduction techniques were used. CONTRAST: 90mL Isovue 370 FINDINGS: LUNGS AND PLEURA: No pleural effusion or pneumothorax is seen. Mild to moderate emphysematous changes are seen in the lungs with upper lobe predominance. Stable scarring along the lingula. Stable pulmonary nodules measuring up to 3 mm in the right upper lobe (series 12, image 119). Mild bilateral bronchial wall thickening is present. MEDIASTINUM/AXILLAE: Stable prominent mediastinal and hilar lymph nodes, including a 9 mm right hilar lymph node (series 2, image 27) as well as 8 mm subcarinal lymph node (series 2, image 28). Heart size appears normal. Atherosclerotic plaque is seen within the thoracic aorta. Right chest port catheter is seen with tip noted in the SVC. CORONARY ARTERY CALCIFICATION: Mild. HEPATOBILIARY: Stable low-attenuation lesions throughout the liver. Gallbladder is unremarkable. PANCREAS: No significant mass, duct dilatation, or inflammatory change. SPLEEN: Normal size. ADRENAL GLANDS: Right adrenal gland is unremarkable. Stable 13 mm nodule in the left adrenal gland. KIDNEYS/BLADDER: No hydronephrosis is seen. Multifocal areas of cortical scarring is present. Scattered areas of decreased cortical enhancement most probably seen along the upper pole of the right kidney appear more conspicuous since the prior exam. Mild wall thickening along the neobladder appears similar to the prior exam. BOWEL: Small bowel anastomosis related to prior ileal conduit or neobladder creation noted in the right lower quadrant. Scattered colonic diverticulosis without evidence of diverticulitis. Mild wall thickening along the sigmoid colon appears unchanged without surrounding inflammatory stranding. Similar appearance of mild wall thickening without surrounding inflammation noted along the proximal transverse colon. LYMPH NODES: No lymphadenopathy. VASCULATURE: Scattered vascular calcifications are seen in the abdominal aorta. PELVIC ORGANS: Prostate gland is surgically absent. MUSCULOSKELETAL: Multilevel degenerative changes are present in the spine. Stable subcentimeter sclerotic lesion along the left inferior pubic ramus, likely bone island. Procedure Note Marguerite Wesley MD - 11/04/2024 EXAM: CT CHEST/ABDOMEN/PELVIS W CONTRAST LOCATION: [facility] DATE: 11/04/2024 INDICATION: monitoring bladder cancer on immunotherapy COMPARISON: CT chest, abdomen and pelvis performed on 08/01/2024 TECHNIQUE: CT scan of the chest, abdomen, and pelvis was performedfollowing injection of IV contrast. Multiplanar reformats were obtained.Dose reduction techniques were used. CONTRAST: 90mL Isovue 370 FINDINGS: LUNGS AND PLEURA: No pleural effusion or pneumothorax is seen. Mild tomoderate emphysematous changes are seen in the lungs with upper lobepredominance. Stable scarring along the lingula. Stable pulmonary nodulesmeasuring up to 3 mm in the right upper lobe (series 12, image 119). Mild bilateral bronchial wall thickening ispresent. MEDIASTINUM/AXILLAE: Stable prominent mediastinal and hilar lymph nodes,including a 9 mm right hilar lymph node (series 2, image 27) as well as 8mm subcarinal lymph node (series 2, image 28). Heart size appears normal.Atherosclerotic plaque is seen within the thoracic aorta. Right chest port catheter is seen with tipnoted in the SVC. CORONARY ARTERY CALCIFICATION: Mild. HEPATOBILIARY: Stable low-attenuation lesions throughout the liver.Gallbladder is unremarkable. PANCREAS: No significant mass, duct dilatation, or inflammatory change. SPLEEN: Normal size. ADRENAL GLANDS: Right adrenal gland is unremarkable. Stable 13 mm nodulein the left adrenal gland. KIDNEYS/BLADDER: No hydronephrosis is seen. Multifocal areas of corticalscarring is present. Scattered areas of decreased cortical enhancementmost probably seen along the upper pole of the right kidney appear moreconspicuous since the prior exam. Mild wall thickening along the neobladder appears similar to the prior exam. BOWEL: Small bowel anastomosis related to prior ileal conduit orneobladder creation noted in the right lower quadrant. Scattered colonicdiverticulosis without evidence of diverticulitis. Mild wall thickeningalong the sigmoid colon appears unchanged without surrounding inflammatory stranding. Similar appearance of mildwall thickening without surrounding inflammation noted along the proximaltransverse colon. LYMPH NODES: No lymphadenopathy. VASCULATURE: Scattered vascular calcifications are seen in the abdominalaorta. PELVIC ORGANS: Prostate gland is surgically absent. MUSCULOSKELETAL: Multilevel degenerative changes are present in the spine.Stable subcentimeter sclerotic lesion along the left inferior pubic ramus,likely bone island. IMPRESSION: 1. Worsening scattered areas of decreased cortical enhancement in bothkidneys. Findings are concerning for worsening bilateral pyelonephritis.Recommend correlation with urinalysis. 2. Stable mild wall thickening along the neobladder which may indicatecystitis. Suggest correlation with urinalysis. 3. Stable low-attenuation lesions in liver. 4. Stable pulmonary nodules measuring up to 3 mm. 5. Mild bilateral bronchial wall thickening suggestive of bronchitis. 6. Stable prominent mediastinal and hilar lymph nodes as describedabove. 7. Mild wall thickening seen within the sigmoid and proximal transversecolon. Findings suspected to reflect underdistention given lack ofsurrounding inflammatory changes. Mild colitis is also in the differentialdiagnosis but considered to be less likely. Suggest correlation with clinical exam. Dylan IBARRA IM CT ORDERABLES Final Re sult documented in this encounter Visit Diagnoses Diagnosis Urothelial cancer (H) Malignant neoplasm of other specified sites of urinary organs Malignant neoplasm of anterior wall of urinary bladder (H) Malignant neoplasm of anterior wall of urinary bladder documented in this encounter Administered Medications Inactive Administered Medications - up to 3 most recent administrations Medication Order MAR Action Action Date Dose Rate Site iopamidol (ISOVUE-370) solution 500 mL 500 mL, Intravenous, ONCE, On Thu11/04/24 at 1000, For 1 dose $Given 11/04/2024 9:37 AM CDT 90 mLs sodium chloride 0.9 % bag for CT scan flush Intravenous, 100 mL, ONCE, On Thu11/04/24 at 1000, For 1 dose, This entry is for use by Radiology to intermittently used as a flush in patients receiving a CT scan. $Given 11/04/2024 9:37 AM CDT 63 mLs documented in this encounter Care Teams Custom Seamstress Relationship Specialty Start Date End Date [address] [place] [address] PCP - General Family Medicine 12/28/23 Alvaro Clark MD [address] [place] [address] Assigned Surgical Provider 07/24/23 [place] [address] [place] [address] Assigned Cancer Care Provider 06/23/24 documented as of this encounter
--- OUTSIDE RECORDS SUMMARY | 2024-11-04 11:30 | XMS_ITS | Encounter Summary ---
Author Organization [facility] Address [address] [place] [address] Care Team Providers Care Golf Club Repairer Name Role Phone Alvaro Clark MD Unavailable Bhavin Gardner Primary Care Provider [phone] Dylan Guerin Unavailable [phone] Reason for Visit * Reason Comments Infusion D1C10 Opdivo * Treatment and Therapy Plans (Routine) - Authorized Specialty Diagnoses / Procedures Referred By Contac t Referred To Contact Infusion Therapy Diagnoses Malignant neoplasm of anterior wall of urinary bladder (H) Procedures ZZC INJECTION, NIVOLUMAB 1MG Ky Torres MD 420 [facility] 480 [place] [address] Phone: tel: fax: [facility] [address] [address] [place] [address] Phone: tel: fax: Referral ID Status Reason Start Date Expiration Date V isits Requested Visits Authorized [id number] Authorized 01/15/2024 05/31/2025 99 99 Encounter Details Date Type Department Care Team (Late st Contact Info) Description 11/04/2024 11:30 AM CDT Infusion Therapy Visit [facility] [address] [address] [place] [address] Yessica Mcleod RONALD [address] [address] [place] [address] Malignant neoplasm of anterior wall of urinary [...] on file 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 Patient seen by provider today: Yes: Yessica Haynes PA-C Food Service Clerk present during visit today: Not Applicable. Note: N/A. Intravenous Access: Implanted Port. Treatment Conditions: Lab Results Component Value Date NA 138 11/04/2024 POTASSIUM 4.4 11/04/2024 MAG 2.0 12/28/2023 CR 1.13 11/04/2024 JUANY 9.0 11/04/2024 BILITOTAL 0.3 11/04/2024 ALBUMIN 3.8 11/04/2024 ALT 18 11/04/2024 AST 28 11/04/2024 Results reviewed, labs MET treatment parameters, ok [...] all questions answered. AVS to patient via [employer]. Patient will return 11/30/24 for next appointment. Patient discharged in stable condition accompanied by: self. Departure Mode: Ambulatory. Luma Kaminski, RN documented in this encounter Plan of Treatment Upcoming Encounters Date Type Department Care Team (Late st Contact Info) Description 11/30/2024 1:00 PM CDT Infusion Therapy Visit [address]ACO[address] [place] [phone] Dylan Guerin [place] [id number] [place] [address] Dr [address] [place], [place] [address] 11/30/2024 1:30 PM CDT Oncology Visit [address]ACOBS [address] [place] [address] Dylan Guerin [place] [id number] [place] [address] Dr [address] [place], [place] [phone] 11/30/2024 2:30 PM CDT Infusion Therapy Visit [address] [place] [address] Ky Torres MD [address] [address] 12/30/2024 1:15 PM CDT Infusion Therapy Visit [address] [place] [phone] Yessica Mcleod PA-C [id number] [place] [address] DR [address] [place] [address] 12/30/2024 1:30 PM CDT Oncology Visit [place] [address] [place] [phone] Yessica Mcleod, RONALD [address] [place], [place] [address] 12/30/2024 2:30 PM CDT Infusion Therapy Visit [address] [place] [phone] Ky Torres MD 420 [facility] 480 [place], [place] [phone] 01/27/2025 1:00 PM CDT Infusion Therapy Visit [address] [place] [phone] Ky Torres MD [address] [facility] [address] [place], [place] [address] 01/27/2025 1:30 PM CDT Oncology Visit [address] [place] [phone] [place] [address] [place], [place] [address] Yessica Mcleod PA-C [address] [place], [place] [address] 01/27/2025 2:30 PM CDT Infusion Therapy Visit [address] [place] [phone] Ky Torres MD [address] [facility] [address] [place] [address] documented as of this encounter [...] port or lock each lumen, Starting on Thu11/04/24 at 1206, PORT: to de-access, instill 5 mL before PORT needle is removed and every 28 days. Apheresis: only for use when patient is NOT under care of apheresis services; after a 10 mL NS flush, lock each lumen of the catheter with 5 mL.Indications:Malignant neoplasm of anterior wall of urinary bladder (H) $Given 11/04/2024 12:50 PM CDT 5 mLs nivolumab (OPDIVO) 480 mg in sodium chloride 0.9 % 158 mL infusion 480 mg, Intravenous, ONCE, On Thu11/04/24 at 1145, For 1 dose, Administer over 30 Minutes, Administer through 0.2-1.2 micron low protein binding filter. May require hepatic and/or renal dose or frequency adjustments. See reference link for guidelines.Indications:Maligna nt neoplasm of anterior wall of urinary bladder (H) $New Bag 11/04/2024 12:09 PM CDT 480 mg 316 mL/hr sodium chloride (PF) 0.9% PF flush 3-20 mL 3-20 mL, Intracatheter, EVERY 1 MIN PRN, line flush, post meds or blood draw, Starting on Thu11/04/24 at 1206, PIV: 3 mL after each use & [...] anterior wall of urinary bladder (H) $Given 11/04/2024 12:50 PM CDT 20 mLs sodium chloride 0.9% BOLUS 250 mL Intravenous, 250 mL, ONCE, On Thu11/04/24 at 1145, For 1 dose, Concomitant fluids.Indications:Malignant neoplasm of anterior wall of urinary bladder (H) $New Bag 11/04/2024 12:09 PM CDT 250 mLs documented in this encounter Care Teams Golf Club Repairer Relationship Specialty Start Date End Date Votel, Bhavin Ford [address] [place] [address] PCP - General Family Medicine 12/28/23 Alvaro Clark MD [address] [place] [address] Assigned Surgical Provider 07/24/23 [place] [address] [place] [address] Assigned Cancer Care Provider 06/23/24 documented as of this encounter
--- OUTSIDE RECORDS SUMMARY | 2024-11-04 13:00 | XMS_ITS | Encounter Summary ---
Author Organization [place] Address [address] [place] [address] Care Team Providers Care Psychologist Educational Name Role Phone Alvaro Clark MD Unavailable Bhavin Gardner Primary Care Provider [phone] Dylan Guerin Unavailable [phone] Reason for Visit * Reason Comments Port Draw Port Labs. 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 Patient seen by provider today: Yes: Yessica Haynes PA-C Cider Press Operator present during visit today: Not Applicable. Note: N/A. Intravenous Access: Labs drawn without difficulty. Implanted Port accessed by CT Dept today. Discharge Plan: Patient was [facility] to [facility] for PA appointment. Alexander Rangel RN documented in this encounter Plan of Treatment Upcoming Encounters Date Type Department Care Team (Late st Contact Info) Description 11/30/2024 1:00 PM CDT Infusion Therapy Visit [place] [address] [place] [address] [place] [phone] [place] [address] [place] [address] [place] [address] 11/30/2024 1:30 PM CDT Oncology Visit [place] [address] [place] [phone] [place] [address] [place] [address] [place] [address] 11/30/2024 2:30 PM CDT Infusion Therapy Visit [place] [address] [place] [address] [place] [phone] Ky Torres MD [address] [id number] 12/30/2024 1:15 PM CDT Infusion Therapy Visit [facility] [id number] [place] [address] [address] [place] [phone] Yessica Mcleod PA-C [address] [place] [address] 12/30/2024 1:30 PM CDT Oncology Visit [address] [place] [phone] Yessica Mcleod PA-C [address] [place], [place] [address] 12/30/2024 2:30 PM CDT Infusion Therapy Visit [address] [place] [phone] Ky Torres MD [address] [address] 01/27/2025 1:00 PM CDT Infusion Therapy Visit [address] [place] [phone] Ky Torres MD [address] [place] [address] 01/27/2025 1:30 PM CDT Oncology Visit [address] [place] [phone] [place] [address] [place], [place] [address] Yessica Mcleod PA-C [address] [place] [address] 01/27/2025 2:30 PM CDT Infusion Therapy Visit [facility] [address] [place] [address] [place] [phone] Ky Torres MD [address] [address] documented as of this encounter Procedures Procedure Name Priority Date/Time Associated Diagnosis Comments CBC WITH PLATELETS AND DIFFERENTIAL Routine 11/04/2024 9:55 AM CDT Malignant neoplasm of anterior wall of urinary bladder (H) CBC WITH PLATELETS & DIFFERENTIAL Routine 11/04/2024 9:55 AM CDT Malignant neoplasm of anterior wall of urinary bladder (H) TSH WITH FREE T4 REFLEX Routine 11/04/2024 9:55 AM CDT Malignant neoplasm of anterior wall of urinary bladder (H) COMPREHENSIVE METABOLIC PANEL Routine 11/04/2024 9:55 AM CDT Malignant neoplasm of anterior wall of urinary bladder (H) documented in this encounter Results * (ABNORMAL) CBC with platelets and differential (11/04/2024 9:55 AM CDT) WBC Count 7.6 4.0 - 11.0 10e3/uL 11/04/2024 10:05 AM CDT [facility] RBC Count 4.34(L) 4.40 - 5.90 10e6/uL 11/04/2024 10:05 AM CDT [facility] Hemoglobin 12.6(L) 13.3 - 17.7 g/dL 11/04/2024 10:05 AM CDT [facility] Hematocrit 38.3(L) 40.0 - 53.0 % 11/04/2024 10:05 AM CDT [facility] MCV 88 78 - 100 fL 11/04/2024 10:05 AM CDT [facility] MCH 29.0 26.5 - 33.0 pg 11/04/2024 10:05 AM CDT [facility] MCHC 32.9 31.5 - 36.5 g/dL 11/04/2024 10:05 AM CDT [facility] RDW 12.5 10.0 - 15.0 % 11/04/2024 10:05 AM CDT [facility] Platelet Count 235 150 - 450 10e3/uL 11/04/2024 10:05 AM CDT [facility] % Neutrophils 61 % 11/04/2024 10:05 AM CDT [facility] % Lymphocytes 16 % 11/04/2024 10:05 AM CDT [facility] % Monocytes 10 % 11/04/2024 10:05 AM CDT [facility] % Eosinophils 12 % 11/04/2024 10:05 AM CDT [facility] % Basophils 1 % 11/04/2024 10:05 AM CDT [facility] % Immature Granulocytes 1 % 11/04/2024 10:05 AM CDT [facility] NRBCs per 100 WBC 0 <1 /100 025 10:05 AM CDT [facility] Absolute Neutrophils 4.7 1.6 - 8.3 10e3/uL 11/04/2024 10:05 AM CDT [facility] Absolute Lymphocytes 1.2 0.8 - 5.3 10e3/uL 11/04/2024 10:05 AM CDT [facility] Absolute Monocytes 0.8 0.0 - 1.3 10e3/uL 11/04/2024 10:05 AM CDT [facility] Absolute Eosinophils 0.9(H) 0.0 - 0.7 10e3/uL 11/04/2024 10:05 AM CDT [facility] Absolute Basophils 0.1 0.0 - 0.2 10e3/uL 11/04/2024 10:05 AM CDT [facility] Absolute Immature Granulocytes 0.1 <=0.4 10e3/uL 11/04/2024 10:05 AM CDT [facility] Absolute NRBCs 0.0 10e3/uL 11/04/2024 10:05 AM CDT [facility] Blood (Portacath) IVAD (Port) / Unknown 11/04/2024 9:55 AM CDT 11/04/2024 10:02 AM CDT us Yessica IBARRA-Colton LAB - BLOOD ORD ERABLES Final Result [facility] [address] Lab (1st floor, no room number) [place] [phone] * TSH with free T4 reflex (11/04/2024 9:55 AM CDT) TSH 2.86 0.30 - 4.20 uIU/mL 11/04/2024 10:32 AM CDT LABORATORY Blood (Portacath) IVAD (Port) / Unknown 11/04/2024 9:55 AM CDT 11/04/2024 10:02 AM CDT us Yessica IBARRA-[facility] LAB - BLOOD ORD ERABLES Final Result Performing Organization Address [facility]/ZIP Co de Phone Number [facility] [address] Lab (1st floor, no room number) [place] [phone] * (ABNORMAL) Comprehensive metabolic panel (11/04/2024 9:55 AM CDT) Sodium 138 135 - 145 mmol/L 11/04/2024 10:26 AM CDT LABORATORY Potassium 4.4 3.4 - 5.3 mmol/L 11/04/2024 10:26 AM CDT LABORATORY Carbon Dioxide (CO2) 28 22 - 29 mmol/L 11/04/2024 10:26 AM CDT LABORATORY Anion Gap 8 7 - 15 mmol/L 11/04/2024 10:26 AM CDT LABORATORY Urea Nitrogen 16.3 8.0 - 23.0 mg/dL 11/04/2024 10:26 AM CDT LABORATORY Creatinine 1.13 0.67 - 1.17 mg/dL 11/04/2024 10:26 AM CDT LABORATORY GFR Estimate 72 >60 mL/min/1.7 3m2 11/04/2024 10:26 AM CDT LABORATORY Comment:eGFR calculated usin 2020 CKD-EPI equation. Calcium 9.0 8.8 - 10.4 mg/dL 11/04/2024 10:26 AM CDT LABORATORY Chloride 102 98 - 107 mmol/L 11/04/2024 10:26 AM CDT LABORATORY Glucose 89 70 - 99 mg/dL 11/04/2024 10:26 AM CDT [facility] Alkaline Phosphatase 61 40 - 150 U/L 11/04/2024 10:26 AM CDT [facility] AST 28 0 - 45 U/L 11/04/2024 10:26 AM CDT [facility] ALT 18 0 - 70 U/L 11/04/2024 10:26 AM CDT [facility] Protein Total 6.3(L) 6.4 - 8.3 g/dL 11/04/2024 10:26 AM CDT LABORATORY Albumin 3.8 3.5 - 5.2 g/dL 11/04/2024 10:26 AM CDT LABORATORY Bilirubin Total 0.3 <=1.2 mg/dL 11/04/2024 10:26 AM CDT LABORATORY Blood (Portacath) IVAD (Port) / Unknown 11/04/2024 9:55 AM CDT 11/04/2024 10:02 AM CDT Yessica Haynes PA-C LAB - BLOOD ORD ERABLES Final Result LABORATORY [facility] [address] Lab (1st floor, no room number) [place] [address], [facility] documented in this encounter Visit Diagnoses Diagnosis Malignant neoplasm of anterior wall of urinary bladder (H)- Primary Malignant neoplasm of anterior wall of urinary bladder documented in this encounter Administered Medications Inactive Administered Medications - up to 3 most recent administrations Medication Order MAR Action Action Date Dose Rate Site sodium chloride (PF) 0.9% PF flush 20 mL 20 mL, Intracatheter, ONCE, On Thu11/04/24 at 1000, For 1 dose $Given 11/04/2024 9:58 AM CDT 20 mLs documented in this encounter Care Teams Psychologist Educational Relationship Specialty Start Date End Date Votel, Bhavin ROSE: [phone] [place] [address] PCP - General Family Medicine 12/28/23 Alvaro Clark MD [address] [place] [address] Assigned Surgical Provider 07/24/23 [place] [address] [place] [address] Assigned Cancer Care Provider 06/23/24 documented as of this encounter
--- OUTSIDE RECORDS SUMMARY | 2024-11-04 13:30 | XMS_ITS | Encounter Summary ---
Author Organization [place] Address [address] [place] [address] Care Team Providers Care Virologist Name Role Phone Alvaro Clark MD Unavailable Bhavin Gardner Primary Care Provider [phone] Dylan Guerin Unavailable [phone] Reason for Visit * Reason Comments Oncology Clinic Visit Encounter Details Date Type Department Care Team (Late st Contact Info) Description 11/04/2024 1:30 PM CDT Oncology Visit [facility] [address] [place] [address] [facility] [place] [phone] Yessica Mcleod, PA-C [address] [place] [address] Urothelial cancer (H) (Primary Dx); Asthma, unspecified asthma severity, unspecified whether complicated, unspecified whether persistent; Prostate cancer (H); Complicated UTI (urinary tract infection) Social History Tobacco Use Types Packs/Day Years [...] on file 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 Gender Identity Not on file Sexual Orientation Not on file 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 file documented as of this encounter Last Filed Vital Signs Vital Sign Reading Time Taken Comments Blood Pressure 120/72 11/04/2024 10:39 AM CDT Pulse 66 11/04/2024 10:39 AM CDT Temperature 36.7 C (98 F) 11/04/2024 10:39 AM CDT Respiratory Rate 16 11/04/2024 10:39 AM CDT Oxygen Saturation 96% 11/04/2024 10:39 AM CDT Inhaled Oxygen Concentration - - Weight 83.5 kg (184 lb) 11/04/2024 10:39 AM CDT Height 172.1 cm (5' 7.75) 11/04/2024 10:39 AM C DT Body Mass Index 28.18 11/04/2024 10:39 AM CDT documented in this encounter Progress Notes * Yessica Mcleod PA-C - 11/04/2024 1:30 PM CDT Oncology/Hematology Visit Note Nov 04, 2024 Reason for visit: Follow up of urothelial cancer from bladder, Stage IIIA (ypT4a, pN0, cM0) Oncology HPI: Oleg Richard is a 64 year old male with MIB C and below is his oncology history and treatment summary: TREATMENT SUMMARY: Oleg presented with urinary retention to the [facility] ED on 05/26/23. He had urinary urgency andfrequency for the previous few weeks. He was noted to have urinary retention and blood in urine without any infection. He had a CT scan done in ED which showed decompressed bladder with parry and wasotherwise unremarkable. He then was seen by Carolina Arrieta in urology at [facility] and referred for cystoscopy. He [...] on 12/22/23. Recommended adjuvant Nivolumab x 1 year started Jan 2024. Monitor PSA for incidental prostate cancer. He is here today for nivolumab. Interval History: Oleg is here unaccompanied today. He continues to tolerate nivolumab pretty well. Continues to self catheterize 1-3 times per day. Still has ongoing mucus, still of the excessive flow a little, but no dysuria or hematuria. He states that when he has been on Macrobid in the past, this has helped with the mucus. No infectious symptoms recently. No other new complaints. Review of Systems: See interval hx. Denies fevers, chills, LIU, dizziness, n/t, changes in vision, cough, CP, SOB, abdominal pain, N/V, diarrhea, bleeding, bruising, rash. PMHx and Social Hx reviewed per [employer]. Medications: Current Outpatient Medications Medication Sig Dispense Refill acetaminophen-caffeine (EXCEDRIN TENSION HEADACHE) 500-65 MG TABS Take 2 tablets by mouth every 6 hours as needed for mild pain (PRN HEADACHE) albuterol (PROAIR HFA/PROVENTIL HFA/VENTOLIN HFA) 108 (90 Base) MCG/ACT inhaler Inhale 2 puffs intothe lungs every 6 hours as needed for shortness of breath, wheezing or cough. 18 g 3 diphenhydrAMINE HCl (BENADRYL ALLERGY PO) Take 1 tablet by mouth as needed polyethylene glycol (MIRALAX) 17 GM/Dose powder Take 17 g by mouth daily 510 g 0 senna-docusate (SENOKOT-S/PERICOLACE) 8.6-50 MG tablet Take 1 tablet by mouth 2 times daily 40 tablet 0 triamcinolone (KENALOG) 0.1 % external lotion Apply topically 3 times daily. To itchy areas. 60 mL 2 Allergies Allergen Reactions Penicillins Nausea and Vomiting EXAM: BP 120/72 (Cuff Size: Adult Regular) Pulse 66 Temp 98 ??F (36.7 ??C) (Temporal) Resp 16 Ht 1.721 m (5' 7.75) Wt 83.5 kg (184 lb) SpO2 96% BMI 28.18 kg/m?? GENERAL: Male, in no acute distress. Alert and oriented x3. Well groomed. HEENT: Normocephalic, atraumatic. No conjunctival injection or eye swelling. LUNGS: Nonlabored breathing, no cough or audible wheezing, able to speak full sentences. MSK: Full ROM UE. SKIN: No rash on exposed skin. NEURO: CN grossly intact, speech normal PSYCH: Mentation appears normal, insight and judgement intact Labs: 11/04/24 09:55 Sodium 138 Potassium 4.4 Chloride 102 Carbon Dioxide (CO2) 28 Urea Nitrogen 16.3 Creatinine 1.13 GFR Estimate 72 Calcium 9.0 Anion Gap 8 Albumin 3.8 Protein Total 6.3 (L) Alkaline Phosphatase 61 ALT 18 AST 28 Bilirubin Total 0.3 Glucose 89 TSH 2.86 WBC 7.6 Hemoglobin 12.6 (L) Hematocrit 38.3 (L) Platelet Count 235 RBC Count 4.34 (L) MCV 88 MCH 29.0 MCHC 32.9 RDW 12.5 % Neutrophils 61 % Lymphocytes 16 % Monocytes 10 % Eosinophils 12 % Basophils 1 % Immature Granulocytes 1 NRBC/W 0 Absolute Neutrophil 4.7 Absolute Lymphocytes 1.2 Absolute Monocytes 0.8 Absolute Eosinophils 0.9 (H) Absolute Basophils 0.1 Absolute Immature Granulocytes 0.1 Absolute NRBCs 0.0 Imaging: n/a Impression/Plan: Oleg Richard is a 64 year old male with MIBC s/p neoadjuvant DD MVAC, cystoprostatectomy with neobladder currently on nivolumab x 1 year, first dose January 2024. # Muscle Invasive Urothelial Cancer S/p post neoadjuvant ddMVAC and cystoprostatectomy with neobladder [id number] disease *prostate stromainvolvement. Residual disease on pathology despite aggressive neoadjuvant chemotherapy. - Recommend adjuvant Nivolumab x 1 year. Started 02/11/24 - Tolerating well with no side effects. Labs with no concerns, see anemia discussion below - O2 has occasionally ran low, prior work-up negative for pneumonitis. Has asthma/emphysema. Continue albuterol PRN and monitoring - Continues to have mucus in urine - Lotion for skin concerns helping - Continue with cycle 10 today - Plan for treatment every 4 weeks with imaging in October, - Urine FISH negative for recurrent disease # Prostate Cancer Incidental on pathology from cystoprostatectomy, Butler 3+ 4. - Will monitor PSA. Baseline 0.02 - Repeat PSA stable at 0.04 # Recurrent UTI Post Surgery Has completed multiple abx courses, has had multiple ED visits - Urology following, now doing self-cath 1-3 times a day - July CT concerning for cystitis, UA is abnormal with positive culture with staph - Due to leukocytosis/abnormal UA did completed Macrobid course. - Ongoing mucus, suspect post surgical, Urology recommended hydration and increased self-catheterization Addendum 11/11/2024: Repeat UA and urine culture with preliminary showing Staphylococcus epidermidisagain. Looking back at previous urine culture results and speaking to pharmacy, cephalexin and Augmentin may be the best options, but he has a penicillin allergy, so we will hold off on the Augmentin. We will try cephalexin 500 mg BID x 10 days. He is concerned that in the past 7 days was not enough. Final urine culture pending, but I sent cephalexin to his pharmacy. # Anemia Last chemotherapy October 2023 - Iron studies concerning for DUKE with iron sat low at 7% - Received Venofer x 3 Jan- Apr 2024 , hgb stable - Patient has never had a colonoscopy and is declining now. Occult stool negative for blood. - B12 and iron levels WNL. Monitor Chart documentation with [employer] Voice recognition Software. Although reviewed after completion, some words and grammatical errors may remain. 20 minutes spent on the date of the encounter doing chart review, review of test results, interpretation of tests, patient visit, and documentation The longitudinal plan of care for the diagnosis(es)/condition(s) as documented were addressed during this visit. Due to the added complexity in care, I will continue to support Oleg in the subsequent management and with ongoing continuity of care. Yessica Cheng PA-C Hematology/Oncology [facility] documented in this encounter Nursing Notes * Helen Keys CMA - 11/04/2024 1:30 PM CDT Oncology Rooming Note November 04, 2024 10:41 AM Oleg Richard is a 64 year old male who presents for: Chief Complaint Patient presents with Oncology Clinic Visit Initial Vitals: BP 120/72 (Cuff Size: Adult Regular) Pulse 66 Temp 98 ??F (36.7 ??C) (Temporal) Resp 16 Ht 1.721 m (5' 7.75) Wt 83.5 kg (184 lb) SpO2 96% BMI 28.18 kg/m?? Estimated body mass index is 28.18 kg/m?? as calculated from the following: Height as of this encounter: 1.721 m (5' 7.75). Weight as of this encounter: 83.5 kg (184 lb). Body surface area is 2 meters squared. No Pain (0) Comment: Data Unavailable No LMP for male patient. Allergies reviewed: Yes Medications reviewed: Yes Medications: Medication refills not needed today. Pharmacy name entered into [facility]: [place], [place] - [address] [place] [address] Frailty Screening: Is the patient here for a new oncology consult visit in cancer care? 2. No PHQ9: Did this patient require a PHQ9?: No Clinical concerns: f/u Helen Keys CMA documented in this encounter Miscellaneous Notes * Addendum Note - Yessica Mcleod PA-C - 11/04/2024 1:30 PM CDT Addended by: YESSICA CHENG on: 11/11/2024 05:15 PM Modules accepted: Orders documented in this encounter Plan of Treatment Upcoming Encounters Date Type Department Care Team (Late st Contact Info) Description 11/30/2024 1:00 PM CDT Infusion Therapy Visit [address] [place] [phone] [place] [address] [place] [address] [place], [place] [phone] 11/30/2024 1:30 PM CDT Oncology Visit [address] [place] [phone] [place] [address] [place] [address] [place], [place] [phone] 11/30/2024 2:30 PM CDT Infusion Therapy Visit [address] [place] [phone] Ky Torres MD [address] [place] [id number] 12/30/2024 1:15 PM CDT Infusion Therapy Visit [address] [place] [phone] Yessica Mcleod PA-C [address] [place], [place] [phone] 12/30/2024 1:30 PM CDT Oncology Visit [address] [place] [phone] Yessica Mcleod PA-C [address] [place], [place] [address] 12/30/2024 2:30 PM CDT Infusion Therapy Visit [address] [place] [phone] Ky Torres MD [address] [facility] [address] [place], [place] [address] 01/27/2025 1:00 PM CDT Infusion Therapy Visit [address] [place] [phone] Ky Torres MD [address] [address] 01/27/2025 1:30 PM CDT Oncology Visit [address] [place] [phone] [place] [address] [place] [address] [place], [place] [address] Yessica Mcleod PA-C [address] [place] [address] 01/27/2025 2:30 PM CDT Infusion Therapy Visit [address] [place] [phone] Ky Torres MD [address] [facility] [address] [place], [place] [address] documented as of this encounter Visit Diagnoses Diagnosis Urothelial cancer (H)- Primary Malignant neoplasm of other specified sites of urinary organs Asthma, unspecified asthma severity, unspecified whether complicated, unspecified whether persistent Prostate cancer (H) Malignant neoplasm of prostate Complicated UTI (urinary tract infection) Urinary tract infection, site not specified documented in this encounter Care Teams Virologist Relationship Specialty Start Date End Date Votel, Bhavin [place] [address] [place] [address] PCP - General Family Medicine 12/28/23 Alvaro Clark MD [address] [address] Assigned Surgical Provider 07/24/23 [place] [address] [place] [address] [place] [address] Assigned Cancer Care Provider 06/23/24 documented as of this encounter
--- OUTSIDE RECORDS SUMMARY | 2024-11-10 09:45 | XMS_ITS | Encounter Summary ---
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 file documented as of this encounter Plan of Treatment Upcoming Encounters Date Type Department Care Team (Late st Contact Info) Description 11/30/2024 1:00 PM CDT Infusion Therapy Visit [facility] [address] [place] [address] [address] JACOBS [address] [place] [phone] [place] [address] [place], [place] [address] 11/30/2024 1:30 PM CDT Oncology Visit [address] JACOBS 200 [place] [phone] [place] [address] [place] [address] [place], [place] [address] 11/30/2024 2:30 PM CDT Infusion Therapy Visit [address] JACOBS 200 [place] [phone] Ky Torres MD [address] [place] [address]645 12/30/2024 1:15 PM CDT Infusion Therapy Visit [place] [address] [place] [address]ACOBS 200 [place] [phone] Yessica Mcleod PA-C [address] JACOBS 200 [place], [place] [address]87 12/30/2024 1:30 PM CDT Oncology Visit [address] JACOBS 200 [place] [phone] Yessica Mcleod PA-C [address] [facility] [address] [place], [place] [address] 12/30/2024 2:30 PM CDT Infusion Therapy Visit [place] [address] [place] [address]ACOBS 200 [place] [address] Ky Torres MD [address] [place] [address] 01/27/2025 1:00 PM CDT Infusion Therapy Visit [address] JACOBS 200 [place] [phone] Ky Torres MD [address] [place] [address] 01/27/2025 1:30 PM CDT Oncology Visit [facility] [address] [place] [address] [address] JACOBS 200 [place] [address] [place] [address] [place] [address] Yessica Mcleod PA-C [address] JACOBS 200 [place] [address] 01/27/2025 2:30 PM CDT Infusion Therapy Visit [address] JACOBS 200 [place] [address] Ky Torres MD [address] [place] [address] documented as of this encounter Procedures Procedure Name Priority Date/Time Associated Diagnosis Comments ROUTINE UA WITH MICROSCOPIC REFLEX TO CULTURE Routine 11/10/2024 9:55 AM CDT Urothelial cancer (H) URINE CULTURE Routine 11/10/2024 9:55 AM CDT Urothelial cancer (H) documented in this encounter Results * (ABNORMAL) Urine Culture (11/10/2024 9:55 AM CDT) Culture 50,000-100,000 CFU/mL Staphylococcus epidermidis(A) 11/12/2024 8:34 AM CDT [facility] Urine URINE SPECIMEN / Unknown Non-blood Collection / Unknown 11/10/2024 9:55 AM CDT 11/10/2024 10:13 AM CDT Narrative Organism Antibiotic Method Susceptibility Staphylococcus epidermidis Oxacillin DAGMAR <=0.25 ug/mL: Susceptible Comment:Oxacillin [place] sceptible isolates are susceptible to cephalosporins (example: cefazolin and cephalexin) and beta lactam combination agents. Oxacillin resistant isolates are resistant to these agents. Staphylococcus epidermidis Gentamicin DAGMAR <=0.5 ug/mL: Susceptible Staphylococcus epidermidis Ciprofloxacin DAGMAR <=0.5 ug/mL: Susceptible Staphylococcus epidermidis Levofloxacin DAGMAR <=0.12 ug/mL: Susceptible Staphylococcus epidermidis Vancomycin DAGMAR 1 ug/mL: Susceptible Staphylococcus epidermidis Daptomycin DAGMAR 0.25 ug/mL: Susceptible Staphylococcus epidermidis Tetracycline DAGMAR <=1 ug/mL: Susceptible Staphylococcus epidermidis Doxycycline DAGMAR <=0.5 ug/mL: Susceptible Staphylococcus epidermidis Nitrofurantoin DAGMAR <=16 ug/mL: Susceptible Staphylococcus epidermidis Trimethoprim/ Sulfamethoxaz ole DAGMAR Susceptible Comment:Antibiotics listed a s No Interpretation have no regulatory guidelines for susceptibility/resistance available. us Dylan [facility] - MICRO GENERAL ORDERA BLES Final Result [facility] Inf. Diseases Diag. Lab [address] [facility] [place] [address] * (ABNORMAL) Routine UA with micro reflex to culture (11/10/2024 9:55 AM CDT) Color Urine Light Yellow Colorless, Straw, Light Yellow, Yellow 11/10/2024 10:13 AM CDT [facility] Appearance Urine Slightly Cloudy(A) Clear 11/10/2024 10:13 AM CDT [facility] Glucose Urine Negative Negative mg/dL 11/10/2024 10:13 AM CDT [facility] Bilirubin Urine Negative Negative 10:13 AM CDT LABORATORY Ketones Urine Negative Negative mg/dL 11/10/2024 10:13 AM CDT [facility] Specific [place] Urine 1.010 1.003 - 1.035 11/10/2024 10:13 AM CDT LABORATORY Blood Urine Small(A) Negative 11/10/2024 10:13 AM CDT LABORATORY pH Urine 6.0 5.0 - 7.0 11/10/2024 10:13 AM CDT [facility] Protein Albumin Urine 20(A) Negative mg/dL 11/10/2024 10:13 AM CDT LABORATORY Urobilinogen Urine Normal Normal mg/dL 11/10/2024 10:13 AM CDT [facility] Nitrite Urine Negative Negative 11/10/2024 10:13 AM CDT LABORATORY Leukocyte Esterase Urine Moderate(A) Negative 11/10/2024 10:13 AM CDT LABORATORY Bacteria Urine Few(A) None Seen /HPF 11/10/2024 10:13 AM CDT LABORATORY Mucus Urine Present(A) None Seen /LPF 11/10/2024 10:13 AM CDT LABORATORY RBC Urine 33(H) <=2 /HPF 11/10/2024 10:13 AM CDT LABORATORY WBC Urine 107(H) <=5 /HPF 11/10/2024 10:13 AM CDT LABORATORY Urine URINE SPECIMEN / Unknown Non-blood Collection / Unknown 11/10/2024 9:55 AM CDT 11/10/2024 9:56 AM CDT Narrative LABORATORY - 11/10/2024 10:13 AM CDT Urine Culture ordered based on laboratory criteria us Dylan [facility] - URINE ORDERABLES Fin al Result LABORATORY [facility] Acute [facility] Lab [address] Lab (1st floor, no room number) [place] [address], [facility] documented in this encounter Visit Diagnoses Diagnosis Urothelial cancer (H) Malignant neoplasm of other specified sites of urinary organs documented in this encounter Care Teams Rail Splitter Relationship Specialty Start Date End Date Votel, Bhavin ROSE: [phone] [place] [address] PCP - General Family Medicine 12/28/23 Alvaro Clark MD [address] [place] [address] Assigned Surgical Provider 07/24/23 [place] [address] [place] [address] [place] [address] Assigned Cancer Care Provider 06/23/24 documented as of this encounter
--- OUTSIDE RECORDS SUMMARY | 2024-11-25 13:25 | XMS_ITS | Encounter Summary ---
Author Organization [place] Address [address] [place] [address] Care Team Providers Care Inspector And Sorter Name Role Phone Alvaro Clark MD Unavailable Bhavin Gardner Primary Care Provider [phone] Dylan Guerin Unavailable [phone] Encounter Details Date Type Department Care Team (Late st Contact Info) Description 11/25/2024 1:[address] 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 file documented as of this encounter Plan of Treatment Upcoming Encounters Date Type Department Care Team (Late st Contact Info) Description 11/30/2024 1:00 PM CDT Infusion Therapy Visit [facility] [address] [place] [phone] [place] [address] [place] [address] [place], [place] [phone] 11/30/2024 1:30 PM CDT Oncology Visit [address] JACOBS [address] [place] [phone] [place] [address] [place] [address] [place], [place] [address]457 11/30/2024 2:30 PM CDT Infusion Therapy Visit [address] JACOBS [address] [place] [phone] Ky Torres MD [address] [place] [address] 4614[address] 12/30/2024 1:15 PM CDT Infusion Therapy Visit [address] JACOBS [address] [place] [address] Yessica Mcleod, PAJannetC [address]AC[address] 200 [place], [place] 395097 12/30/2024 1:30 PM CDT Oncology Visit [place] [address] [place] [address]ACOBS 200 [place] [phone] Yessica Mcleod PAJannetC [address] [facility] [address] [place], [place] [phone] 12/30/2024 2:30 PM CDT Infusion Therapy Visit [place] [address] [place] [address] [place] [phone] Ky Torres MD [address] 1420[address] 01/27/2025 1:00 PM CDT Infusion Therapy Visit [address] JACOBS [address] [place] [address] Ky Torres MD [address] [place] [address] 01/27/2025 1:30 PM CDT Oncology Visit [address] JACOBS 200 [place] [address] [place] [address] [place] [address] [place], [place] 757087 Yessica Mcleod PA-C [address] JACOBS 200 [place] [address] 01/27/2025 2:30 PM CDT Infusion Therapy Visit [address] JACOBS 200 [place] [address] Ky Torres MD [address] [place] [address] Pending Results Name Type Priority Associated Diagnoses Date /Time Urine Culture Microbiology Routine Lower abdominal pain 11/25/2024 1:33 PM CDT documented as of this encounter Procedures Procedure Name Priority Date/Time Associated Diagnosis Comments ROUTINE UA WITH MICROSCOPIC REFLEX TO CULTURE Routine 11/25/2024 1:33 PM CDT Lower abdominal pain documented in this encounter Results * (ABNORMAL) UA with Microscopic reflex to Culture (11/25/2024 1:33 PM CDT) Color Urine Straw Colorless, Straw, Light Yellow, Yellow 11/25/2024 2:47 PM CDT [facility] Appearance Urine Clear Clear 11/26/19 2:47 PM CDT [facility] Glucose Urine Negative Negative mg/dL 11/25/2024 2:47 PM CDT [facility] Bilirubin Urine Negative Negative 2:47 PM CDT [facility] Ketones Urine Negative Negative mg/dL 11/25/2024 2:47 PM CDT [facility] Specific [place] Urine 1.005 1.003 - 1.035 11/25/2024 2:47 PM CDT [facility] Blood Urine Trace(A) Negative 11/25/2024 2:47 PM CDT LABORATORY pH Urine 6.5 5.0 - 7.0 11/25/2024 2:47 PM CDT [facility] Protein Albumin Urine Negative Negative mg/dL 11/25/2024 2:47 PM CDT [facility] Urobilinogen Urine Normal Normal mg/dL 11/25/2024 2:47 PM CDT [facility] Nitrite Urine Negative Negative 11/25/2024 2:47 PM CDT [facility] Leukocyte Esterase Urine Moderate(A) Negative 11/25/2024 2:47 PM CDT [facility] Bacteria Urine Few(A) None Seen /HPF 11/25/2024 2:47 PM CDT LABORATORY WBC Clumps Urine Present(A) None Seen /HPF 11/25/2024 2:47 PM CDT LABORATORY Mucus Urine Present(A) None Seen /LPF 11/25/2024 2:47 PM CDT [facility] RBC Urine 4(H) <=2 /HPF 11/25/2024 2:47 PM CDT [facility] WBC Urine 32(H) <=5 /HPF 11/25/2024 2:47 PM CDT [facility] Squamous Epithelials Urine <1 <=1 /HPF 11/25/2024 2:47 PM CDT [facility] Urine URINE SPECIMEN / Unknown Non-blood Collection / Unknown 11/25/2024 1:33 PM CDT 11/25/2024 1:33 PM CDT Narrative [facility] - 11/25/2024 2:47 PM CDT Urine Culture ordered based on laboratory criteria us Yessica Haynes PA-C LAB - URINE ORD ERABLES Final Result [facility] Lab [address] [facility] Lab (1st floor, no room number) [place] [address], [facility] documented in this encounter Visit Diagnoses Diagnosis Lower abdominal pain Abdominal pain, other specified site documented in this encounter Care Teams Inspector And Sorter Relationship Specialty Start Date End Date Votel, Bhavin Ford [address] [place] [address] PCP - General Family Medicine 12/28/23 Alvaro Clark MD 420 [facility] [address] [place] [address] Assigned Surgical Provider 07/24/23 [place] [address] [place] [address] [place] [address] Assigned Cancer Care Provider 06/23/24 documented as of this encounter
[2024-11-26] VITALS (9 sets, daily range): BP systolic 114–136; BP diastolic 62–93; PULSE 104–115; RESP 18–20; TEMP 36.4; O2SAT 89–95; BMI 27.8
--- OUTSIDE RECORDS SUMMARY | 2024-11-26 01:55 | XMS_ITS | Encounter Summary ---
Author Organization [place] Address [address] [place] [address] Care Team Providers Care Top Inventory Control Executive Name Role Phone Alvaro Clark MD Unavailable Bhavin Gardner Primary Care Provider [phone] Dylan Guerin Unavailable [phone] Encounter Details Date Type Department Care Team (Late st Contact Info) Description 10/07/2024 [facility] [address]ACOBS [address] [facility] [place] [address] [place] [address] [place] [address] Jacobs [address] [place] [address] Social History Tobacco Use Types Packs/Day Years [...] on file 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 Gender Identity Not on file Sexual Orientation Not on file 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 file documented as of this encounter Plan of Treatment Upcoming Encounters Date Type Department Care Team (Late st Contact Info) Description 11/30/2024 1:00 PM CDT Infusion Therapy Visit [address] JACOBS 200 [place] [phone] [place] [address] [place] [address] [place], [place] 4[address] 11/30/2024 1:30 PM CDT Oncology Visit [address] JACOBS 200 [place] [address] [place] [address] [place] [address] [place], [place] [address] 11/30/2024 2:30 PM CDT Infusion Therapy Visit [address] JACOBS 200 [place] [address] Ky Trores MD [address] [id number] 12/30/2024 1:15 PM CDT Infusion Therapy Visit [address] JACOBS [address] [place] [phone] Yessica Mcleod PA-C [address] JACOBS [address] [place], [place] 692427 12/30/2024 1:30 PM CDT Oncology Visit [address] JACOBS [address] [place] [phone] Yessica Mcleod PA-C [address] [place], [place] [address]327 12/30/2024 2:30 PM CDT Infusion Therapy Visit [address] JACOBS [address] [place] [address] Ky Torres MD [address] 396635 01/27/2025 1:00 PM CDT Infusion Therapy Visit [address] JACOBS 200 [place] [address] Ky Torres MD [address] [place] [address] 810605 01/27/2025 1:30 PM CDT Oncology Visit [address] JACOBS 200 [place] [address] [place] [address] [place] [address] [place], [place] 452[address] Yessica Mcleod PA-C [address] JACOBS [address] [place] [address] 01/27/2025 2:30 PM CDT Infusion Therapy Visit [address] JACOBS [address] [place] [address] Ky Torres MD [address] [place] [address] 903155 documented as of this encounter Visit Diagnoses Not on filedocumented in this encounter Care Teams Top Inventory Control Executive Relationship Specialty Start Date End Date Votel, Bhavin ROSE: [phone] [place] [address] PCP - General Family Medicine 12/28/23 Alvaro Clark MD [address] [place] [address] Assigned Surgical Provider 07/24/23 [place] [address] [place] [address] Jacobs [address] [place] [address] Assigned Cancer Care Provider 06/23/24 documented as of this encounter
--- OUTSIDE RECORDS SUMMARY | 2024-11-26 01:55 | XMS_ITS | Encounter Summary ---
Author Organization [facility] Address [address] [place] [address] Care Team Providers Care Bill Adjuster Name Role Phone Alvaro Clark MD Unavailable System, Provider Not In Primary Care Provider Un available Sixto Whalen APRN INTERNATIONAL RELATIONS PROFESSOR Unavailable [phone] No Ref-Primary, Physician Primary Care Provider Yessica Mcleod PA-C Unavailable Bhavin Gardner Primary Care Provider Ky Torres MD Unavailable Dylan Guerin Unavailable Ky Torres MD Unavailable Dylan Guerin Unavailable Encounter Details Date Type Department Care Team (Late st Contact Info) Description 11/17/2023 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 file documented as of this encounter Plan of Treatment Upcoming Encounters Date Type Department Care Team (Late st Contact Info) Description 11/30/2024 1:00 PM CDT Infusion Therapy Visit [place] [address] [facility] [address]ACOBS [address] [place] [phone] [place] [address] [place] [facility] [address] Jacobs [address] [place], [place] [address] 11/30/2024 1:30 PM CDT Oncology Visit [place] [address] [address]BS 200 [place] [phone] [place] [address] [place] [facility] [address] [place], [place] [address] 11/30/2024 2:30 PM CDT Infusion Therapy Visit [place] [address] [place] [address]ACOBS [address] [place] [address] Ky Torres MD 420 [facility] [address] [place], [place] [address] 12/30/2024 1:15 PM CDT Infusion Therapy Visit [place] [address] [place] [address]ACOBS [address] [place] [phone] Yessica Mcleod, PAJannetC [address] [facility] [address] [place] [address] 12/30/2024 1:30 PM CDT Oncology Visit [facility] [address] [place] [address]ACOBS [address] [place] [phone] Yessica Mcleod, RONALD [address] JACOBS 200 [place], [place] 242067 12/30/2024 2:30 PM CDT Infusion Therapy Visit [address] JACOBS 200 [place] [address] Ky Torres MD [address] [address] 01/27/2025 1:00 PM CDT Infusion Therapy Visit [address] JACOBS [address] [place] [address] Ky Torres MD [address] [place] [address]805 01/27/2025 1:30 PM CDT Oncology Visit [facility] [address] [place] [address]ACO[address] [place] [address] [place] [address] [place] [address] [place], [place] 448767 Yessica Mcleod PA-C [address] [place], [place] 143037 01/27/2025 2:30 PM CDT Infusion Therapy Visit [place] [address] [place] [address]ACO[address] [place] [address] Ky Torres MD [address] 729705 documented as of this encounter Visit Diagnoses Not on filedocumented in this encounter Care Teams Bill Adjuster Relationship Specialty Start Date End Date System, Provider Not In PCP - General Clinic 08/13/23 12/21/23 No Ref-Primary, Physician PCP - General 12/22/23 12/27/23 Bhavin Gardner [facility] [place] [address] PCP - General Family Medicine 12/28/23 Alvaro Clark MD [address] [phone] Assigned Surgical Provider 07/24/23 Sixto Whalen APRN INTERNATIONAL RELATIONS PROFESSOR [address] [place], [place] 742975 Assigned Cancer Care Provider 10/22/23 12/21/23 Yessica Mcleod PA-C [address] [facility] [address] [place], [place] 638567 Assigned Cancer Care Provider 12/22/23 01/21/24 Ky Torres MD [address] 777445 Assigned Cancer Care Provider 01/22/24 04/22/24 [place] [address] [facility] [address] [place], [place] 358217 Assigned Cancer Care Provider 04/23/24 05/22/24 Ky Torres MD [address] [place] [address] Assigned Cancer Care Provider 05/23/24 06/22/24 [place] [address] [place] [address] [address] Assigned Cancer Care Provider 06/23/24 documented as of this encounter
--- OUTSIDE RECORDS SUMMARY | 2024-11-26 01:55 | XMS_ITS | Encounter Summary ---
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 No answer. LM to call back. Dylan Guerin PA-C documented in this encounter Plan of Treatment Upcoming Encounters Date Type Department Care Team (Late st Contact Info) Description 11/30/2024 1:00 PM CDT Infusion Therapy Visit [address] JACOBS 200 [place] [phone] [place] [phone] [place] [address] Dr Jacobs [address] [place], [place] [address]22337 11/30/2024 1:30 PM CDT Oncology Visit [place] [address] [place] [address]ACOBS [address] [place] [address] [place] [address] [place] [address] [place], [place] [address] 11/30/2024 2:30 PM CDT Infusion Therapy Visit [address] JACOBS 200 [place] [address] Ky Torres MD [address] [place] [address] 183405 12/30/2024 1:15 PM CDT Infusion Therapy Visit [place] [address] [place] [address] JACOBS [address] [place] [phone] Yessica Mcleod PA-C [address] [place] [address] DR JACOBS [address] [place], [place] [address]297 12/30/2024 1:30 PM CDT Oncology Visit [facility] [address] [place] [address] JACOBS [address] [place] [address] Yessica Mcleod PA-C [address] JACO[address] 200 [place], [place] 371557 12/30/2024 2:30 PM CDT Infusion Therapy Visit [address] JACOBS 200 [place] [address] Ky Torres MD [address] [address] 01/27/2025 1:00 PM CDT Infusion Therapy Visit [address] JACOBS 200 [place] [address] Ky Torres MD [address] 592075 01/27/2025 1:30 PM CDT Oncology Visit [address] JACOBS [address] [place] [address] [place] [address] [place] [address] [place] [address] Yessica Mcleod PA-C [address] JACOBS 200 [place] [address] 01/27/2025 2:30 PM CDT Infusion Therapy Visit [place] [address] [place] [address] [place] [address] Ky Torres MD 420 [facility] [address] [place], [place] 134885 documented as of this encounter Visit Diagnoses Not on filedocumented in this encounter Care Teams Restaurant Crew Person Relationship Specialty Start Date End Date Votel, Bhavin Ford [address] [place] [address] PCP - General Family Medicine 12/28/23 Alvaro Clark MD 420 [facility] [address] [place], [place] [address] Assigned Surgical Provider 07/24/23 [place] [address] [address] [place], [place] 561157 Assigned Cancer Care Provider 06/23/24 documented as of this encounter
--- OUTSIDE RECORDS SUMMARY | 2024-11-26 01:55 | XMS_ITS | Encounter Summary ---
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 file documented as of this encounter Plan of Treatment Upcoming Encounters Date Type Department Care Team (Late st Contact Info) Description 11/30/2024 1:00 PM CDT Infusion Therapy Visit [facility] [address] [address]ACOBS 200 [place] [address] [place] [address] [address] Jacobs 200 [place] [address] 11/30/2024 1:30 PM CDT Oncology Visit [facility] [address] [place] [address] [address] JACOBS 200 [place] [address] [place] [address] Jacobs 200 [place] [address] 11/30/2024 2:30 PM CDT Infusion Therapy Visit [address] JACOBS 200 [place] [address] Ky Torres MD [address] 3398[address] 12/30/2024 1:15 PM CDT Infusion Therapy Visit [facility] [address] [place] [address] DR JACOBS 200 [place] [address] Yessica Mcleod, PA-C [address] JACOBS 200 [place], [place] [address] 12/30/2024 1:30 PM CDT Oncology Visit [address] JACOBS 200 [place] [address] Yessica Mcleod, PA-C [address] JACOBS 200 [place] [address] 12/30/2024 2:30 PM CDT Infusion Therapy Visit [address] JACOBS 200 [place] [address] Ky Torres MD 420 [facility] [address] [place], [place] [address] 01/27/2025 1:00 PM CDT Infusion Therapy Visit [address] JACOBS 200 [place] [address] Ky Torres MD 420 [facility] [address] [place], [place] [address]30[address] 01/27/2025 1:30 PM CDT Oncology Visit [address] JACOBS 200 [place] [address] [place] [address] Jacobs 200 [place], [place] [address] Yessica Mcleod, RONALD [address] JACOBS 200 [place] [address] 01/27/2025 2:30 PM CDT Infusion Therapy Visit [address] JACOBS 200 [place] [address] Ky Torres MD [address] 2687[address] documented as of this encounter Visit Diagnoses Not on filedocumented in this encounter Care Teams Brokerage Branch Manager Relationship Specialty Start Date End Date Votel, Bhavin [place] [address] PCP - General Family Medicine 12/28/23 Alvaro Clark MD 420 [facility] [address] [place], [place] 8958[address] Assigned Surgical Provider 07/24/23 [place] [address] Jacobs [address] [place] [address] [place] [address] Assigned Cancer Care Provider 06/23/24 documented as of this encounter
--- OUTSIDE RECORDS SUMMARY | 2024-11-26 01:55 | XMS_ITS | Encounter Summary ---
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 file documented as of this encounter Plan of Treatment Upcoming Encounters Date Type Department Care Team (Late st Contact Info) Description 11/30/2024 1:00 PM CDT Infusion Therapy Visit [facility] [address] [address]OBS 200 [place] [address] [place] [address] [address] Jacobs 200 [place] [address] 11/30/2024 1:30 PM CDT Oncology Visit [facility] [address] [place] [address] DR JACOBS 200 [place] [address] [place] [address] Jacobs [address] [place] [address] 11/30/2024 2:30 PM CDT Infusion Therapy Visit [address] JAOCBS 200 [place] [address] Ky Torres MD [address] 3787[address] 12/30/2024 1:15 PM CDT Infusion Therapy Visit [facility] [address] [place] [address] DR JACOBS 200 [place] [address] Yessica Mcleod, PA-C [address] JACOBS 200 [place], [place] [address]257 12/30/2024 1:30 PM CDT Oncology Visit [address] JACOBS 200 [place] [address] Yessica Mcleod, PA-C [address] JACOBS 200 [place] [address] 12/30/2024 2:30 PM CDT Infusion Therapy Visit [address] JACOBS 200 [place] [address] Ky Torres MD 420 [facility] 480 [place], [place] [address] 01/27/2025 1:00 PM CDT Infusion Therapy Visit [address] JACOBS 200 [place] [address] Ky Torres MD 420 [facility] [address] [place], [place] [address] 01/27/2025 1:30 PM CDT Oncology Visit [address] JACOBS 200 [place] [address]15 [place] [address] [place], [place] 827667 Yessica Mcleod, RONALD [address] JACOBS 200 [place] [address] 01/27/2025 2:30 PM CDT Infusion Therapy Visit [address] JACOBS 200 [place] [address] Ky Torres MD [address] 080175 documented as of this encounter Visit Diagnoses Not on filedocumented in this encounter Care Teams Property Accountant Relationship Specialty Start Date End Date Votel, Bhavin [place] [address] PCP - General Family Medicine 12/28/23 Alvaro Clark MD 420 [facility] 394 [place], [place] [address] Assigned Surgical Provider 07/24/23 [place] [address] Jacobs [address] [place] [address] [place] [address] Assigned Cancer Care Provider 06/23/24 documented as of this encounter
--- OUTSIDE RECORDS SUMMARY | 2024-11-26 01:55 | XMS_ITS | Encounter Summary ---
Author Organization [facility] Address [address] [place] [address] Care Team Providers Care Research Analyst Name Role Phone Alvaro Clark MD Unavailable Bhavin Gardner Primary Care Provider [phone] Dylan Guerin Unavailable [phone] Reason for Visit * Reason Onset Date Comments Symptoms 11/25/2024 Encounter Details Date Type Department Care Team (Late st Contact Info) Description 11/25/2024 Telephone [facility] [place] [address] JACOBS 200 [facility] [place] [phone] Yessica Mcleod, PA-C [address] JACOBS 200 [place] [address] Symptoms Social History Tobacco Use Types Packs/Day [...] on file 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 Yessica Mcleod PA-C to Me (Selected Message) 11/25/24 3:32 PM I would prefer to wait for urine culture, but I am concerned that he will go without antibiotics over the entire weekend. I will send Macrobid to his pharmacy this time. I know he has tolerated this in the past. Pt was notified with recommendations. He will worm picker Rx for macrobid and start right away. Advised pt to continue to push fluids. Reviewed emergent symptoms that would warrant return call to clinic or evaluation in ER. Will watch for UC results. Patient verbalized understanding and agreement with plan. Patient was instructed to call the clinicwith any questions, concerns, or worsening symptoms. Jami Oseguera RN on 11/25/2024 at 3:46 PM * Telephone Encounter - Jami Oseguera RN - 11/25/2024 12:15 PM CDT STACEY Zuluaga, has ordered UA for pt to be done today. Pt states that he will go to the walk in lab at [facility], as he has done this in the past. He will bethere around 1:30 pm. Will watch for results. Jami Oseguera RN on 11/25/2024 at 12:16 PM * Telephone Encounter - Jami Oseguera RN - 11/25/2024 10:14 AM CDT Oncology Nurse Triage Situation: Oleg reporting the following symptoms: concern for ongoing UTI Background: Treating Provider: Dr Torres Date of last office visit: 11/04/2024 with STACEY Zuluaga Recent Treatments:11/04/2024: D1C10 Opdivo Assessment: Pt is calling with concerns that UTI is still present. Was treated with keflex on 11/11/2024. Took last dose on 11/21/2024. Pt states that even though his symptoms improved slightly, they never went away. States that the infection is still there. Pt reports that he is having ongoing pain over his bladder. Also states that he has spurts of pain from his bladder to his kidney. Denies dysuria, frequency, urgency, fever/chills, hematuria, or odor to urine. States that he has been drinking at least 6 bottles of water daily. Denies any other new or urgent symptoms. Recommendations: Will route to care team for advice. Pt states that he would be able to drive up to [facility] walk in lab for UA today if needed. Jami Oseguera RN on 11/25/2024 at 10:20 AM documented in this encounter Plan of Treatment Upcoming Encounters Date Type Department Care Team (Late st Contact Info) Description 11/30/2024 1:00 PM CDT Infusion Therapy Visit [place] [address] JACOBS 200 [place] [address] [place] [address] Jacobs 200 [place] [address] 11/30/2024 1:30 PM CDT Oncology Visit [place] [address] [address]OBS 200 [place] [address] [place] [address] Jacobs [address] [place] [address] 11/30/2024 2:30 PM CDT Infusion Therapy Visit [place] [address] JACOBS 200 [place] [address] Ky Torres MD 420 [facility] 480 [place], [place] [address] 12/30/2024 1:15 PM CDT Infusion Therapy Visit [address] JACOBS 200 [place] [address] Yessica Mcleod PA-C [address] [place] [address] DR JACOBS 200 [place] [address] 12/30/2024 1:30 PM CDT Oncology Visit [address] JACOBS 200 [place] [address] Yessica Mcleod PA-C [address] [place] [address] DR JACOBS 200 [place], [place] 410737 12/30/2024 2:30 PM CDT Infusion Therapy Visit [address] JACOBS 200 [place] [address] Ky Torres MD [address] 265945 01/27/2025 1:00 PM CDT Infusion Therapy Visit [address] JACOBS 200 [place] [address] Ky Torres MD [address] 785235 01/27/2025 1:30 PM CDT Oncology Visit [address] JACOBS 200 [place] [address] [place] [address] [place], [place] [address] Yessica Mcleod PA-C [address] JACOBS 200 [place], [place] [address]2097 01/27/2025 2:30 PM CDT Infusion Therapy Visit [facility] [address] JACOBS 200 [place] [phone] Ky Torres MD [address] [address] documented as of this encounter Results * (ABNORMAL) UA with [...] 11/25/2024 2:47 PM CDT [facility] Specific [place] Urine 1.005 1.003 - 1.035 11/25/2024 2:47 PM CDT [facility] Blood Urine Trace(A) Negative 11/25/2024 2:47 PM CDT [facility] pH Urine 6.5 5.0 - 7.0 [...] None Seen /HPF 11/25/2024 2:47 PM CDT [facility] WBC Clumps Urine Present(A) None Seen /HPF 11/25/2024 2:47 PM CDT [facility] Mucus Urine Present(A) None Seen /LPF [...] Urine Culture ordered based on laboratory criteria Yessica Haynes PA-C LAB - URINE ORD ERABLES Final Result LABORATORY [facility] Lab [address] Lab (1st floor, no room number) [place] [address], [facility] documented in this encounter Visit Diagnoses Diagnosis Lower abdominal pain- Primary Abdominal pain, other specified site Urothelial cancer (H) Malignant neoplasm of other specified sites of urinary organs Complicated UTI (urinary tract infection) Urinary tract infection, site not specified documented in this encounter Care Teams Research Analyst Relationship Specialty Start Date End Date Votel, Bhavin Ford [address] [place] [address] PCP - General Family Medicine 12/28/23 Alvaro Clark MD [address] 488[address] Assigned Surgical Provider 07/24/23 [place] [address] [place], [place] [address] Assigned Cancer Care Provider 06/23/24 documented as of this encounter
--- OUTSIDE RECORDS SUMMARY | 2024-11-26 01:55 | XMS_ITS | Clinical Summary ---
Author Organization [facility] Address [address] [place] [address] Care Team Providers Care Hand Frame Surgical Elastic Knitter Name Role Phone Pcp, No Primary Care Provider Unavailabl e Allergies Active Allergy Reactions Criticality Noted Date Comments Penicillins GI Upset 11/14/2006 Medications triamcinolone 0.1% TOPICAL (KENALOG) 0.1 % lotionIndication s:Eczema, unspecified type APPLY TOPICALLY TO AFFECTED AREA(S) 2 TIMES DAILY. 60 mL 2 3 Active triamcinolone 0.5% (ARISTOCORT) 0.5 % creamIndications :Contact dermatitis, unspecified contact dermatitis type, unspecified trigger To inner arms bilateral twice daily until clear 45 g 1 3 Active Active Problems Problem Noted Date Diagnosed Date Degenerative arthritis of knee 09/14/2012 Overview (09/16/2012): March 2012: left knee cortisone injection. August 2012: left knee cortisone injection. Immunizations Immunization Administration Dates Next Due Tdap 02/28/2019,02/07/2013,11/14/2006 Family History Medical History Relation Name Comments Cancer Father FAther Kidney C ancer. Relation Name Status Comments Father Social History Tobacco Use Types Packs/Day Years Used Date Smoking Tobacco: Former Cigarettes Q uit: 03/17/2010 Smokeless Tobacco: Never Tobacco Cessation:Counseling Given: Not Answered Alcohol Use Standard Drinks/Week Comments Yes 0 (1 standard drink = 0.6 oz pur e alcohol) Social Connections Answer Date Recorded Frequency of Communication with Friends and Fami ly Not on file 08/15/2021 Financial Resource Strain Answer Date R ecorded Difficulty of Paying Living Expenses Not on file 06/01/2021 Difficulty of Paying Living Expenses Not on file 06/01/2021 Sex and Gender Information Value Date Recorded Sex Assigned at Not on file 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 Gender Identity Not on file Sexual Orientation Not on file 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 Not on file Obstetrics History Last Filed Vital Signs Vital Sign Reading Time Taken Comments Blood Pressure 114/65 12/19/2022 2:41 PM CDT Pulse 98 12/19/2022 2:41 PM CDT Temperature 36.1 C (97 F) 07/18/2019 11:30 AM SHIP ENGINEER Respiratory Rate 18 12/19/2022 2:41 PM CDT Oxygen Saturation 92% 12/19/2022 2:41 PM CDT Inhaled Oxygen Concentration - - Weight 89.5 kg (197 lb 6.4 oz) 12/19/2022 2:41 P M CDT Height 175.3 cm (5' 9) 12/19/2022 2:41 PM CDT Body Mass Index 29.15 12/19/2022 2:41 PM CDT Plan of Treatment Health Maintenance Due Date Last Done Comments HIV for age 15-65 1974 Hepatitis C screening for age 18-79 1977 Colonoscopy through age 75 02/14/2004 Lipids for age 45-75 02/14/2004 Pneumococcal series for age 50+ (1 of 1 - PCV) 2009 Zoster (shingles) series for age 50+ (1 of 2) 2009 Depression screening for age 12+ 05/27/2017 05/27/2016 BMI (ht and wt on same day) for age 18+ 12/20/2023 12/19/2022, 10/01/2021, 08/15/2021, Additional history exists COVID-19 vaccine series ( - 2023- season) 2024 Influenza Vaccine (Season Ended) 2025 Tetanus booster 02/28/2029 02/28/2019, 09/0 01/2013, 11/14/2006 RSV vaccine for adults or (1 - 1-dose 75+ series) 2034 Tdap Completed 02/28/2019, 01/2013, 11/14/2006 Hepatitis B series for 19+ Aged Out N o longer eligible based on patient's age to complete this topic Insurance [facility] * Guarantor: ANIKA RICHEY Account Type Relation to Patient Date of Phone Billing Address [employer] [id number] [address] [id number] [employer] BILL PROCESSING PREFERRED ONE PREFERRED ONE Care Teams Hand Frame Surgical Elastic Knitter Relationship Specialty Start Date End Date Pcp, No . PCP - General 08/07/10
--- OUTSIDE RECORDS SUMMARY | 2024-11-26 01:55 | XMS_ITS | Encounter Summary ---
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 He has no infectious concerns or urinary symptoms. Will check UA prior to doing abx. He will come to hospital lab to get UA done. He is running out of catheters. Messaged Dr. Clark nurse to help with order for this. Dylan Guerin PA-C documented in this encounter Plan of Treatment Upcoming Encounters Date Type Department Care Team (Late st Contact Info) Description 11/30/2024 1:00 PM CDT Infusion Therapy Visit [place] [address] [place] [address]ACOBS [address] [place] [address] [place] [address] [place] [address] [place], [place] [address] 11/30/2024 1:30 PM CDT Oncology Visit [place] [address] [place] [address] JACOBS 200 [place] [phone] [place] [address] [place] [address] [place], [place] [address] 11/30/2024 2:30 PM CDT Infusion Therapy Visit [place] [address] [place] [address]ACOBS [address] [place] [address] Ky Torres MD [address] [place] [address] 12/30/2024 1:15 PM CDT Infusion Therapy Visit [place] [address] [place] [address]ACOBS [address] [place] [address] Yessica Mcleod PA-C [address] JACOBS [address] [place] [address] 12/30/2024 1:30 PM CDT Oncology Visit [address] JACOBS 200 [place] [address] Yessica Mcleod PA-C [address] JACOBS 200 [place] [address] 12/30/2024 2:30 PM CDT Infusion Therapy Visit [address] JACOBS 200 [place] [address] Ky Torres MD 420 [facility] 480 [place], [place] [address] 01/27/2025 1:00 PM CDT Infusion Therapy Visit [address] JACOBS 200 [place] [address] Ky Torres MD 420 [facility] [place] [facility] [address] [place] [address] 01/27/2025 1:30 PM CDT Oncology Visit [address] JACOBS 200 [place] [address] [place] [address] [place] [address] [place] [address] Yessica Mcleod PA-C [address] JACOBS 200 [place] [address] 01/27/2025 2:30 PM CDT Infusion Therapy Visit [facility] [address] [place] [address]ACOBS [address] [place] [address] Ky Torres MD 420 [facility] 480 [place], [place] 6[address] documented as of this encounter Visit Diagnoses Not on filedocumented in this encounter Care Teams Field Radio Operator Relationship Specialty Start Date End Date Votel, Bhavin Ford [address] [place] [address] PCP - General Family Medicine 12/28/23 Alvaro Clark MD 420 [facility] [address] [place], [place] 895065 Assigned Surgical Provider 07/24/23 [place] [address] [place] [address] [place] [address] Assigned Cancer Care Provider 06/23/24 documented as of this encounter
--- OUTSIDE RECORDS SUMMARY | 2024-11-26 01:55 | XMS_ITS | Encounter Summary ---
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 Gender Identity Not on file Sexual Orientation Not on file 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 file documented as of this encounter Plan of Treatment Upcoming Encounters Date Type Department Care Team (Late st Contact Info) Description 11/30/2024 1:00 PM CDT Infusion Therapy Visit [facility] [address] JACOBS 200 [place] [phone] [place] [address] [place], [place] [address] 11/30/2024 1:30 PM CDT Oncology Visit [address] JACOBS 200 [place] [address] [place] [address] [place], [place] [address] 11/30/2024 2:30 PM CDT Infusion Therapy Visit [address] JACOBS 200 [place] [phone] Ky Torres MD [address] [place] [address]6565 12/30/2024 1:15 PM CDT Infusion Therapy Visit [address] JACOBS 200 [place] [phone] Yessica Mcleod PA-C [address] JACOBS 200 [place], [place] [address] 12/30/2024 1:30 PM CDT Oncology Visit [address] JACOBS 200 [place] [phone] Yessica Mcleod PA-C [address] JACOBS 200 [place], [place] [address] 12/30/2024 2:30 PM CDT Infusion Therapy Visit [facility] [address] [place] [address]ACOBS [address] [place] [address] Ky Torres MD [address] 582[address] 01/27/2025 1:00 PM CDT Infusion Therapy Visit [address] JACOBS 200 [place] [address] Ky Torres MD [address] 3559[address] 01/27/2025 1:30 PM CDT Oncology Visit [address] JACOBS 200 [place] [address] [place] [address] [place] [address] Yessica Mcleod, LIDIAC [address] JACOBS 200 [place] [address] 01/27/2025 2:30 PM CDT Infusion Therapy Visit [address] JACOBS 200 [place] [address] Ky Torres MD [address] 9014[address] documented as of this encounter Visit Diagnoses Diagnosis 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
--- OUTSIDE RECORDS SUMMARY | 2024-11-26 01:55 | XMS_ITS | Encounter Summary ---
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 Gender Identity Not on file Sexual Orientation Not on file 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 file documented as of this encounter Plan of Treatment Upcoming Encounters Date Type Department Care Team (Late st Contact Info) Description 11/30/2024 1:00 PM CDT Infusion Therapy Visit [place] [address] JACOBS 200 [place] [address]39[address] [place] [address] Jacobs 200 [place], [place] [phone] 11/30/2024 1:30 PM CDT Oncology Visit [address] JACOBS 200 [place] [address]1365[address] [place] [address] Jacobs 200 [place], [place] 57812337 11/30/2024 2:30 PM CDT Infusion Therapy Visit [address] JACOBS 200 [place] [address] Ky Torres MD [address] [id number] 12/30/2024 1:15 PM CDT Infusion Therapy Visit [address] JACOBS 200 [place] [address]337[address] Yessica Mcleod PA-C [address] JACOBS 200 [place], [place] 563157 12/30/2024 1:30 PM CDT Oncology Visit [address] JACOBS 200 [place] [address]33[address] Yessica Mcleod PAJannetC [address] JACOBS 200 [place], [place] [address] 12/30/2024 2:30 PM CDT Infusion Therapy Visit [address] JACOBS 200 [place] [address]-1194337[address] Ky Torres MD [address] 205735 01/27/2025 1:00 PM CDT Infusion Therapy Visit [address] JACOBS 200 [place] [address]337[address]25[address] Ky Torres MD [address] 644525 01/27/2025 1:30 PM CDT Oncology Visit [address] JACOBS 200 [place] [address] [place] [address] Jacobs 200 [place], [place] [phone] Yessica Mcleod PA-C [address] JACOBS 200 [place], [place] 351847 01/27/2025 2:30 PM CDT Infusion Therapy Visit [address] JACOBS 200 [place] [address]-3622337[address]25[address] Ky Torres MD [address] 076235 documented as of this encounter Results * (ABNORMAL) Routine UA with micro reflex to culture (11/10/2024 9:55 AM CDT) Color Urine Light Yellow Colorless, Straw, Light Yellow, Yellow 11/10/2024 10:13 AM CDT LABORATORY Appearance Urine Slightly Cloudy(A) Clear 11/10/2024 10:13 AM CDT LABORATORY Glucose Urine Negative Negative mg/dL 11/10/2024 10:13 AM CDT LABORATORY Bilirubin Urine Negative Negative 10:13 AM CDT LABORATORY Ketones Urine Negative Negative mg/dL 11/10/2024 10:13 AM CDT LABORATORY Specific [place] Urine 1.010 1.003 - 1.035 11/10/2024 10:13 AM CDT LABORATORY Blood Urine Small(A) Negative 11/10/2024 10:13 AM CDT LABORATORY pH Urine 6.0 5.0 - 7.0 11/10/2024 10:13 AM CDT LABORATORY Protein Albumin Urine 20(A) Negative mg/dL 11/10/2024 10:13 AM CDT LABORATORY Urobilinogen Urine Normal Normal mg/dL 11/10/2024 10:13 AM CDT LABORATORY Nitrite Urine Negative Negative 11/10/2024 10:13 [...] - URINE ORDERABLES Fin al Result LABORATORY [facility] [address] [facility] (1st floor, no room number) [place] [address], [facility] documented in this encounter Visit Diagnoses Diagnosis Urothelial cancer (H)- Primary Malignant neoplasm of other specified sites of urinary organs documented in this encounter Care Teams Color Worker Relationship Specialty Start Date End Date Votel Bhavin Ford [address] [place] [address] PCP - General Family Medicine 12/28/23 Alvaro Clark MD [address] [place] [address] Assigned Surgical Provider 07/24/23 [place] [address] [address] [place] [address] Assigned Cancer Care Provider 06/23/24 documented as of this encounter
--- OUTSIDE RECORDS SUMMARY | 2024-11-26 01:55 | XMS_ITS | Encounter Summary ---
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 Gender Identity Not on file Sexual Orientation Not on file 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 file documented as of this encounter Plan of Treatment Upcoming Encounters Date Type Department Care Team (Late st Contact Info) Description 11/30/2024 1:00 PM CDT Infusion Therapy Visit [address] JACOBS 200 [place] [phone] [place] [address] [facility] [address] Jacobs 200 [place], [place] 498657 11/30/2024 1:30 PM CDT Oncology Visit [address] JACOBS 200 [place] [address] [place] [address] Jacobs 200 [place], [place] [phone] 11/30/2024 2:30 PM CDT Infusion Therapy Visit [address] JACOBS 200 [place] [address]337[address] Ky Torres MD [address] 929435 12/30/2024 1:15 PM CDT Infusion Therapy Visit [address] JACOBS 200 [place] [phone] Yessica Mcleod PA-C [address] JACOBS 200 [place] [address] 12/30/2024 1:30 PM CDT Oncology Visit [address] JACOBS 200 [place] [phone] Yessica Mcleod PA-C [address] JACOBS 200 [place], [place] 819617 12/30/2024 2:30 PM CDT Infusion Therapy Visit [facility] [address] [place] [address] DR JACOBS 200 [place] [address] Ky Torres MD [address] 621835 01/27/2025 1:00 PM CDT Infusion Therapy Visit [address] JACOBS 200 [place] [address] Ky Torres MD [address] 996915 01/27/2025 1:30 PM CDT Oncology Visit [address] JACOBS 200 [place] [address] [place] [address] Jacobs 200 [place], [place] 576117 Yessica Mcleod, RONALD [address] JACOBS 200 [place] [address] 01/27/2025 2:30 PM CDT Infusion Therapy Visit [address] JACOBS 200 [place] [address] Ky Torres MD [address] 873555 documented as of this encounter Visit Diagnoses Not on filedocumented in this encounter Care Teams Hand Box Folder Relationship Specialty Start Date End Date Votel, Bhavin ROSE: [phone] [place] [address] PCP - General Family Medicine 12/28/23 Alvaro Clark MD [address] [place] [address] Assigned Surgical Provider 07/24/23 [place] [address] [place] [address] Assigned Cancer Care Provider 06/23/24 documented as of this encounter
--- OUTSIDE RECORDS SUMMARY | 2024-11-26 01:56 | XMS_ITS | Encounter Summary ---
Author Organization [facility] Address [address] [place] [address] Care Team Providers Care Beader Tender Name Role Phone Alvaro Clark MD Unavailable System, Provider Not In Primary Care Provider Un available Sixto Whalen APRN CLASSIFICATION INSPECTOR Unavailable [phone] No Ref-Primary, Physician Primary Care Provider Yessica Mcleod PA-C Unavailable Bhavin Gardner Primary Care Provider [phone] Ky Torres MD Unavailable Dylan Guerin Unavailable Ky Torres MD Unavailable [phone] Dylan Guerin Unavailable Encounter Details Date Type Department Care Team (Late st Contact Info) Description 12/01/2023 [facility] Adv[facility] [place] [address] JACOBS 200 [facility] [place] [address] Sabra Wilcox Social History Tobacco [...] on file 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 Gender Identity Not on file Sexual Orientation Not on file 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 file documented as of this encounter Plan of Treatment Upcoming Encounters Date Type Department Care Team (Late st Contact Info) Description 11/30/2024 1:00 PM CDT Infusion Therapy Visit [place] [address] JACOBS 200 [place] [phone] [place] [address] Jacobs 200 [place], [place] [phone] 11/30/2024 1:30 PM CDT Oncology Visit [address] JACOBS 200 [place] [address]14[address]15 [place] [address] Jacobs 200 [place], [place] 39339337 11/30/2024 2:30 PM CDT Infusion Therapy Visit [place] [address] JACOBS 200 [place] [address] Ky Torres MD [address] [id number] 12/30/2024 1:15 PM CDT Infusion Therapy Visit [place] [address] JACOBS 200 [place] [address]33[address] Yessica Mcleod, PAJannetC [address] JACOBS 200 [place], [place] 670307 12/30/2024 1:30 PM CDT Oncology Visit [place] [address] [address] DAISY 200 [place] [address] Yessica Mcleod PA-C [address] JACOBS 200 [place] [address] 12/30/2024 2:30 PM CDT Infusion Therapy Visit [address] JACOBS 200 [place] [address]25[address] Ky Torres MD 420 [facility] 480 [place], [place] 036165 01/27/2025 1:00 PM CDT Infusion Therapy Visit [address] JACOBS 200 [place] [address] yK Torres MD [address] [facility] 480 [place], [place] 594285 01/27/2025 1:30 PM CDT Oncology Visit [address] JACOBS 200 [place] [address]15 [place] [address] Jacobs 200 [place], [place] 896467 Yessica Mcleod PA-C [address] JACOBS 200 [place], [place] 079567 01/27/2025 2:30 PM CDT Infusion Therapy Visit [address] JACOBS 200 [place] [address] Ky Torres MD 420 [facility] 480 [place] [address] documented as of this encounter Visit Diagnoses Not on filedocumented in this encounter Care Teams Beader Tender Relationship Specialty Start Date End Date System, Provider Not In PCP - General Clinic 08/13/23 12/21/23 No Ref-Primary, Physician PCP - General 12/22/23 12/27/23 Bhavin Gardner [address] [place] [address] PCP - General Family Medicine 12/28/23 Alvaro Clark MD [address] [place] [address]109 Assigned Surgical Provider 07/24/23 Sixto Whalen APRN CNP [address] [place] [address] Assigned Cancer Care Provider 10/22/23 12/21/23 Yessica Mcleod PA-C [address] [place] [address]8727 Assigned Cancer Care Provider 12/22/23 01/21/24 Ky Torres MD [address] [place] [address]182 Assigned Cancer Care Provider 01/22/24 04/22/24 [place] [address] Jacobs 200 [place] [address] Assigned Cancer Care Provider 04/23/24 05/22/24 Ky Torres MD [address] [place] [address] 480 [place] [address] Assigned Cancer Care Provider 05/23/24 06/22/24 [place] [address] [place] [address] Assigned Cancer Care Provider 06/23/24 documented as of this encounter
--- OUTSIDE RECORDS SUMMARY | 2024-11-26 01:56 | XMS_ITS | Encounter Summary ---
Author Organization [facility] Address [address] [place] [address] Care Team Providers Care Home Connect Lpn Name Role Phone Dalila Arrieta PA Unavailable [phone] System, Provider Not In Primary Care Provider Un available Alvaro Clark MD Unavailable System, Provider Not In Primary Care Provider Un available Ky Torres MD Unavailable [phone] Sixto Whalen APRN CONCRETE BUCKET LOADER Unavailable [phone] No Ref-Primary, Physician Primary Care Provider Yessica Mcleod PA-C Unavailable Bhavin Gardner Primary Care Provider [phone] Ky Torres MD Unavailable [phone] Dylan Guerin Unavailable [phone] Ky Torres MD Unavailable [phone] Dylan Guerin Unavailable Encounter Details Date Type Department Care Team (Late st Contact Info) Description 07/17/2023 [facility] [address] 5th [place] [address] Lisa Guevara, RN Social History [...] on file 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 Gender Identity Not on file Sexual Orientation Not on file 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 file documented as of this encounter Plan of Treatment Upcoming Encounters Date Type Department Care Team (Late st Contact Info) Description 11/30/2024 1:00 PM CDT Infusion Therapy Visit [place] [address] [place] [address]ACOBS 200 [place] [phone] [place] [address] [place] [address] 200 [place], [place] [phone] 11/30/2024 1:30 PM CDT Oncology Visit [place] [address] [place] [address]ACOBS 200 [place] [address]-13[address]15 [place] [address] [place] [address] Jacobs 200 [place], [place] 71920337 11/30/2024 2:30 PM CDT Infusion Therapy Visit [place] [address]ACOBS 200 [place] [address]-84[address]337[address] Ky Torres MD [address] [address] 12/30/2024 1:15 PM CDT Infusion Therapy Visit [place] [address] JACOBS 200 [place] [address] Yessica Mcleod PAJannetC [address] JACOBS 200 [place] [address] 12/30/2024 1:30 PM CDT Oncology Visit [facility] [address] [place] [address]ACOBS 200 [place] [address]25[address] Yessica Mcleod, PA-C [address] JACOBS 200 [place] [address] 12/30/2024 2:30 PM CDT Infusion Therapy Visit [facility] [address] [place] [address] DR JACOBS 200 [place] [address]-7808337[address]2515 Ky Torres MD [address] 210825 01/27/2025 1:00 PM CDT Infusion Therapy Visit [facility] [address] [place] [address]ACOBS 200 [place] [address]-1514337[address]2515 Ky Torres MD [address] [address] 01/27/2025 1:30 PM CDT Oncology Visit [facility] [address] [place] [address]ACOBS 200 [place] [address] [place] [address] [place], [place] 320867 Yessica Mcleod PA-C [address] JACOBS 200 [place] [address] 01/27/2025 2:30 PM CDT Infusion Therapy Visit [facility] Medical Ctr [facility] [address] [place] [address] 200 [place] [address] Ky Torres MD 420 [facility] 480 [place], [place] 302175 documented as of this encounter Visit Diagnoses Not on filedocumented in this encounter Care Teams Home Connect Lpn Relationship Specialty Start Date End Date System, Provider Not In PCP - General Clinic 07/20/23 07/20/23 System, Provider Not In PCP - General Clinic 08/13/23 12/21/23 No Ref-Primary, Physician PCP - General 12/22/23 12/27/23 Bhavin Gardner [address] [place] [address] PCP - General Family Medicine 12/28/23 Dalila Arrieta PA [address] [place] [address] [place] [address] Assigned Surgical Provider 07/03/23 Alvaro Clark MD [address] [place] [address] 920695 Assigned Surgical Provider 07/24/23 Ky Torres MD [address] [place] [address] 480 [place] [address] Assigned Cancer Care Provider 09/22/23 10/21/23 Sixto Whalen APRN CNP [address] [place] [address]807 Assigned Cancer Care Provider 10/22/23 12/21/23 Yessica Mcleod PA-C [address] [address] 200 [place] [address] Assigned Cancer Care Provider 12/22/23 01/21/24 Ky Torres MD [address] [facility] 480 [place] [address] Assigned Cancer Care Provider 01/22/24 04/22/24 [place] [address] [place] [address] [place] [address] Assigned Cancer Care Provider 04/23/24 05/22/24 Ky Torres MD [address] [facility] 480 [place] [address] Assigned Cancer Care Provider 05/23/24 06/22/24 [place] [address] [place] [address] Assigned Cancer Care Provider 06/23/24 documented as of this encounter
--- OUTSIDE RECORDS SUMMARY | 2024-11-26 01:56 | XMS_ITS | Encounter Summary ---
Author Organization [facility] Address [address] [place] [address] Care Team Providers Care Technical Photographer Name Role Phone Alvaro Clark MD Unavailable System, Provider Not In Primary Care Provider Un available Ky Torres MD Unavailable [phone] Sixto Whalen APRN LINE SERVICE TECHNICIAN Unavailable [phone] No Ref-Primary, Physician Primary Care Provider Yessica Mcleod PA-C Unavailable Bhavin Gardner Primary Care Provider Ky Torres MD Unavailable [phone] Dylan Guerin Unavailable Ky Torres MD Unavailable [phone] Dylan Guerin Unavailable Encounter Details Date Type Department Care Team (Late st Contact Info) Description 07/24/2023 [facility] Medical Advice [facility] Urology Clinic [place] [id number] [facility] [address] 4th [place] [address] Diamond Conway RN Social History [...] on file 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 Gender Identity Not on file Sexual Orientation Not on file 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 file documented as of this encounter Plan of Treatment Upcoming Encounters Date Type Department Care Team (Late st Contact Info) Description 11/30/2024 1:00 PM CDT Infusion Therapy Visit [place] [address] [place] [address]ACOBS 200 [place] [address] [place] [address] 200 [place], [place] 51154337 11/30/2024 1:30 PM CDT Oncology Visit [place] [address]ACOBS 200 [place] [address]-4698[address] [place] [address] 200 [place], [place] [address]603337 11/30/2024 2:30 PM CDT Infusion Therapy Visit [place] [address]ACOBS 200 [place] [address]-0900337[address]2515 Ky Torres MD [address] [place] [address] 758905 12/30/2024 1:15 PM CDT Infusion Therapy Visit [place] [address]ACOBS 200 [place] [address]-38[address]337[address]25[address] Yessica Mcleod PA-C [address] JACOBS 200 [place], [place] 36315337 12/30/2024 1:30 PM CDT Oncology Visit [address] JACOBS 200 [place] [address] Yessica Mcleod PA-C [address] JACOBS 200 [place] [address] 12/30/2024 2:30 PM CDT Infusion Therapy Visit [address] JACOBS 200 [place] [address]66337[address]2515 Ky Torres MD [address] [place] [address] 410045 01/27/2025 1:00 PM CDT Infusion Therapy Visit [address] JACOBS 200 [place] [address]-9891337[address]2515 Ky Torres MD [address] [place] [address] 577165 01/27/2025 1:30 PM CDT Oncology Visit [address] JACOBS 200 [place] [address] [place] [address] 200 [place] [address] Yessica Mcleod PA-C [address] JACOBS 200 [place], [place] 113207 01/27/2025 2:30 PM CDT Infusion Therapy Visit [place] [address]ACOBS 200 [place] [address]-8570337[address]2515 Ky Torres MD 420 [facility] 480 [place], [place] 227795 documented as of this encounter Visit Diagnoses Not on filedocumented in this encounter Care Teams Technical Photographer Relationship Specialty Start Date End Date System, Provider Not In PCP - General Clinic 08/13/23 12/21/23 No Ref-Primary, Physician PCP - General 12/22/23 12/27/23 Bhavin Gardner [facility] [place] [address] PCP - General Family Medicine 12/28/23 Alvaro Clark MD [address] [address] Assigned Surgical Provider 07/24/23 Ky Torres MD [address] [address] Assigned Cancer Care Provider 09/22/23 10/21/23 Sixto Whalen APRN CNP 9 [place] [address] Assigned Cancer Care Provider 10/22/23 12/21/23 Yessica Mcleod PA-C [address] [facility] [address] 715487 Assigned Cancer Care Provider 12/22/23 01/21/24 Ky Torres MD [address] [address] Assigned Cancer Care Provider 01/22/24 04/22/24 [place] [address] [address] Jacobs 200 [place] [address] Assigned Cancer Care Provider 04/23/24 05/22/24 Ky Torres MD [address] [place] [address] 480 [place], [place] 001515 Assigned Cancer Care Provider 05/23/24 06/22/24 [place] [address] [address] Jacobs 200 [place] [address] Assigned Cancer Care Provider 06/23/24 documented as of this encounter
--- OUTSIDE RECORDS SUMMARY | 2024-11-26 01:56 | XMS_ITS | Encounter Summary ---
Author Organization [facility] Address [address] [place] [address] Care Team Providers Care Gravel Hauler Name Role Phone Alvaro Clark MD Unavailable No Ref-Primary, Physician Primary Care Provider Yessica McleodC Unavailable Bhavin Gardner Primary Care Provider [phone] Ky Torres MD Unavailable [phone] Dylan Guerin Unavailable Ky Torres MD Unavailable [phone] Dylan Guerin Unavailable Encounter Details Date Type Department Care Team (Late st Contact Info) Description 12/26/2023 [facility] [place] [facility] [address] [place] [address] [facility] [place] [address] Alvaro Clark MD 420 [facility] [address] [place] [address] Urothelial cancer (H) (Primary Dx) [...] file 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 Gender Identity Not on file Sexual Orientation Not on file 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 file documented as of this encounter Plan of Treatment Upcoming Encounters Date Type Department Care Team (Late st Contact Info) Description 11/30/2024 1:00 PM CDT Infusion Therapy Visit [place] [address] [place] [place] [phone] [place] [address] [place], [place] [phone] 11/30/2024 1:30 PM CDT Oncology Visit [place] [address] [place] [phone] [place] [address] [place], [place] [phone] 11/30/2024 2:30 PM CDT Infusion Therapy Visit [place] [address] [place] [phone] Ky Torres MD [address] [place] [address] 12/30/2024 1:15 PM CDT Infusion Therapy Visit [place] [address] [place] [phone] Yessica Mcleod PAJannetC [address] [place], [place] [phone] 12/30/2024 1:30 PM CDT Oncology Visit [address] [place] [phone] Yessica Mcleod PA-C [address] [place] [address] 12/30/2024 2:30 PM CDT Infusion Therapy Visit [address] [place] [phone] Ky Torres MD [address] [place] [id number] 01/27/2025 1:00 PM CDT Infusion Therapy Visit [address] [place] [phone] Ky Torres MD [address] [place] [id number] 01/27/2025 1:30 PM CDT Oncology Visit [address] [place] [phone] [place] [address] [place] [place] [address] Yessica Mcleod PA-C [address] [place], [place] [phone] 01/27/2025 2:30 PM CDT Infusion Therapy Visit [address] [place] [phone] Ky Torres MD 420 [facility] [address] [place], [place] 7[address] documented as of this encounter Visit Diagnoses Diagnosis Urothelial cancer (H)- Primary Malignant neoplasm of other specified sites of urinary organs documented in this encounter Care Teams Gravel Hauler Relationship Specialty Start Date End Date No Ref-Primary, Physician PCP - General 12/22/23 12/27/23 Bhavin Gardner [address] [place] [address] PCP - General Family Medicine 12/28/23 Alvaro Clark MD 420 [facility] [address] [place] [address] Assigned Surgical Provider 07/24/23 Yessica Mcleod PA-C [address] [place] [address] Assigned Cancer Care Provider 12/22/23 01/21/24 Ky Torres MD 420 [facility] [address] [place] [address] Assigned Cancer Care Provider 01/22/24 04/22/24 [place] [address] [address] [place], [place] 17[address]17 Assigned Cancer Care Provider 04/23/24 05/22/24 Ky Torres MD 420 [facility] [address] [place] [address] Assigned Cancer Care Provider 05/23/24 06/22/24 [place] [address] [place] [place] [address] [place] [address] Assigned Cancer Care Provider 06/23/24 documented as of this encounter
--- OUTSIDE RECORDS SUMMARY | 2024-11-26 01:56 | XMS_ITS | Encounter Summary ---
Author Organization [facility] Address [address] [place] [address] Care Team Providers Care Soa Architect Name Role Phone Alvaro Clark MD Unavailable System, Provider Not In Primary Care Provider Un available Ky Torres MD Unavailable [phone] Sixto Whalen APRN CARBONATING STONE CLEANER Unavailable [phone] No Ref-Primary, Physician Primary Care Provider Yessica Mcleod PA-C Unavailable Bhavin Gardner Primary Care Provider Ky Torres MD Unavailable [phone] Dylan Guerin Unavailable Ky Torres MD Unavailable [phone] Dylan Guerin Unavailable Encounter Details Date Type Department Care Team (Late st Contact Info) Description 09/26/2023 [facility] [place] Adv[place] [facility] [place] [address], [place] 610 [facility] [place] [address] Ky Torres MD 420 [facility] 480 [place] [address] Social History Tobacco Use Types [...] on file 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 Gender Identity Not on file Sexual Orientation Not on file 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 file documented as of this encounter Plan of Treatment Upcoming Encounters Date Type Department Care Team (Late st Contact Info) Description 11/30/2024 1:00 PM CDT Infusion Therapy Visit [place] [address] [place] [address] [place] [phone] [place] [address] [place] [address] [place], [place] [phone] 11/30/2024 1:30 PM CDT Oncology Visit [place] [address] [facility] [address] [place] [phone] [place] [address] [place] [address] [place], [place] [phone] 11/30/2024 2:30 PM CDT Infusion Therapy Visit [place] [address] [place] [address] [place] [phone] Ky Torres MD [address] [place] [id number] 12/30/2024 1:15 PM CDT Infusion Therapy Visit [place] [address] [facility] [address] [place] [phone] Yessica Mcleod PA-C [address] [place] [address] 12/30/2024 1:30 PM CDT Oncology Visit [address] [place] [phone] Yessica Mcleod PA-C [address] [place] [address] 12/30/2024 2:30 PM CDT Infusion Therapy Visit [address] [place] [phone] Ky Torres MD [address] 14[address] 01/27/2025 1:00 PM CDT Infusion Therapy Visit [address] [place] [phone] Ky Torres MD [address] [place] [address] [address] 01/27/2025 1:30 PM CDT Oncology Visit [address] [place] [phone] [place] [address] [place] [address] Dr [address] [place], [place] [address] Yessica Mcleod PA-C [address] [place] [address] 01/27/2025 2:30 PM CDT Infusion Therapy Visit [facility] [address] [place] [address] [place] [phone] Ky Torres MD [address] [address] documented as of this encounter Visit Diagnoses Not on filedocumented in this encounter Care Teams Soa Architect Relationship Specialty Start Date End Date System, Provider Not In PCP - General Clinic 08/13/23 12/21/23 No Ref-Primary, Physician PCP - General 12/22/23 12/27/23 Bhavin Gardner [address] [place] [address] PCP - General Family Medicine 12/28/23 Alvaro Clark MD [address] [place] [address] Assigned Surgical Provider 07/24/23 Ky Torres MD [address] [place] [address] Assigned Cancer Care Provider 09/22/23 10/21/23 Sixto Whalen APRN CNP [address] [place] [address] Assigned Cancer Care Provider 10/22/23 12/21/23 Yessica Mcleod PA-C [address] [place] [address] Assigned Cancer Care Provider 12/22/23 01/21/24 Ky Torres MD 420 [facility] [address] [place] [address] Assigned Cancer Care Provider 01/22/24 04/22/24 [place] [address] [address] [place] [address] Assigned Cancer Care Provider 04/23/24 05/22/24 Ky Torres MD [address] [address] Assigned Cancer Care Provider 05/23/24 06/22/24 [place] [address] [place] [address] Assigned Cancer Care Provider 06/23/24 documented as of this encounter
--- OUTSIDE RECORDS SUMMARY | 2024-11-26 01:56 | XMS_ITS | Clinical Summary ---
Author Organization [facility] Address [address] [place] [address] Care Team Providers Care Hair Assistant Name Role Phone Alvaro Clark MD Unavailable Bhavin Gardner Primary Care Provider [phone] Dylan Guerin Unavailable [phone] Allergies Active Allergy Reactions Criticality Noted Date Comments Penicillins Nausea and Vomiting Medium 06/18/2023 Medications acetaminophen-ca ffeine (EXCEDRIN TENSION HEADACHE) 500-65 MG TABS Take 2 tablets by mouth every 6 hours as needed for mild pain (PRN HEADACHE) Active diphenhydrAMINE HCl (BENADRYL ALLERGY PO) Take 1 tablet by mouth as needed Active polyethylene glycol (MIRALAX) 17 GM/Dose powderIndication s:Postoperative state Take 17 g by mouth daily 510 g 4 Active senna-docusate (SENOKOT-S/PERIC OLACE) 8.6-50 MG tabletIndication s:Postoperative state Take 1 tablet by mouth 2 times daily 40 tablet 4 Active triamcinolone (KENALOG) 0.1 % external lotionIndication s:Drug rash,Malignant neoplasm of anterior wall of urinary bladder (H) Apply topically 3 times daily. To itchy areas. 60 mL 2 4 Active albuterol (PROAIR HFA/PROVENTIL HFA/VENTOLIN HFA) 108 (90 Base) MCG/ACT inhalerIndicatio ns:Asthma, unspecified asthma severity, unspecified whether complicated, unspecified whether persistent Inhale 2 puffs into the lungs every 6 hours as needed for shortness of breath, wheezing or cough. 18 g 3 5 Active nitroFURantoin macrocrystal-mon ohydrate (MACROBID) 100 MG capsuleIndicatio ns:Urothelial cancer (H),Complicated UTI (urinary tract infection) Take 1 capsule (100 mg) by mouth 2 times daily for 7 days. 14 capsule 5 12/03/19 25 Active cephALEXin (KEFLEX) 500 MG capsuleIndicatio ns:Urothelial cancer (H),Complicated UTI (urinary tract infection) Take 1 capsule (500 mg) by mouth 2 times daily for 10 days. 20 capsule 5 11/22/19 25 Active Problems Problem Noted Date Diagnosed Date Iron deficiency anemia due to chronic blood loss 02/10/2024 Small bowel obstruction 12/27/2023 Bladder cancer 12/22/2023 Cancer Staging:Pathologic stage from 01/15/2024:Stage IIIA(ypT4a, pN0, cM0) - Signed by Ky Torres MD on 01/18/2024 Urothelial cancer 09/06/2023 Lesion of bladder 07/10/2023 Encounters Date Type Department Care Team Description 11/25/2024 1:25 PM CDT Lab [facility] [address] [place] [address] Lower abdominal pain 11/25/2024 Results Follow-Up [facility] [address] [facility] [place] [address] Yessica Mcleod PA-C 11/25/2024 Travel 11/25/2024 Telephone [facility] [address] [facility] [place] [address] Yessica Mcleod PA-C Symptoms 11/10/2024 9:45 AM CDT Lab [facility] [address] [place] [phone] Urothelial cancer (H) 11/10/2024 Results Follow-Up [facility] - Cancer Care Service Line [facility] [place] [phone] Yessica Mcleod PA-C 11/10/2024 Orders Only [address] [facility] [place] [address] Jill Rothman RN 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) (Primary Dx) 11/10/2024 Travel 11/09/[address] [facility] [place] [phone] Dylan Guerin PA 11/09/2024 Orders Only [address] [facility] [place] [phone] Dylan Guerin PA Urothelial cancer (H) (Primary Dx) 11/07/[address] 200 [facility] [place] [phone] Dylan Guerin PA 11/04/2024 1:30 PM CDT Oncology Visit [address] [facility] [place] [phone] Yessica Mcleod PA-C Urothelial cancer (H) (Primary Dx); Asthma, unspecified asthma severity, unspecified whether complicated, unspecified whether persistent; Prostate cancer (H); Complicated UTI (urinary tract infection) 11/04/2024 1:00 PM CDT Infusion Therapy Visit [facility] [address] [place] [phone] Yessica Mcleod PA-C Malignant neoplasm of anterior wall of urinary bladder (H) (Primary Dx) 11/04/2024 11:30 AM CDT Infusion Therapy Visit [facility] [address] [place] [phone] Yessica Mcleod PA-C Malignant neoplasm of anterior wall of urinary bladder (H) (Primary Dx) 11/04/2024 9:02 AM CDT - 11/04/2024 11:59 PM CDT Hospital Encounter [facility] [address] [place] [phone] Dylan Guerin PA Urothelial cancer (H); Malignant neoplasm of anterior wall of urinary bladder (H) Discharge Disposition: Home or Self Care 11/04/2024 Travel 10/07/2024 MyC Medical Advice [address] [facility] [place] [phone] Dylan Guerin PA 10/05/2024 12:00 PM CDT Infusion Therapy Visit [facility] [address] [place] [phone] Dylan Guerin PA Malignant neoplasm of anterior wall of urinary bladder (H) (Primary Dx) 10/05/2024 11:00 AM CDT Oncology Visit [address] [facility] [place] [phone] Dylan Guerin PA Urothelial cancer (H) (Primary Dx); Asthma, unspecified asthma severity, unspecified whether complicated, unspecified whether persistent; Malignant neoplasm of anterior wall of urinary bladder (H); Prostate cancer (H) 10/05/2024 10:30 AM CDT Infusion Therapy Visit [address] [place] [phone] Dylan Guerin PA Malignant neoplasm of anterior wall of urinary bladder (H) (Primary Dx) 10/05/2024 Travel 09/26/[address] [facility] [place] [address] Dylan Guerin PA Medication Question 09/09/2024 2:30 PM CDT Infusion Therapy Visit [facility] [place] [address] [place] [phone] Dylan Guerin PA Malignant neoplasm of anterior wall of urinary bladder (H) (Primary Dx); Urothelial cancer (H) 09/09/2024 1:30 PM CDT Oncology Visit [address] [facility] [place] [phone] Dylan Guerin PA Urothelial cancer (H) (Primary Dx); Drug rash; Complicated UTI (urinary tract infection) 09/09/2024 1:00 PM CDT Infusion Therapy Visit [facility] [address] [place] [address] Dylan Guerin PA Malignant neoplasm of anterior wall of urinary bladder (H) (Primary Dx) 09/09/2024 Travel from Last 3 Months Family History [...] on file 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 Gender Identity Not on file Sexual Orientation [...] Mass Index 28.18 11/04/2024 10:39 AM CDT Plan of Treatment Upcoming Encounters Date Type Department Care Team (Late st Contact Info) Description 11/30/2024 1:00 PM CDT Infusion Therapy Visit [facility] [place] [address] [address] [place] [phone] [place] [address] [place], [place] [address] 11/30/2024 1:30 PM CDT Oncology Visit [place] [address] [address] [facility] [place] [phone] [place] [address] [place], [place] [phone] 11/30/2024 2:30 PM CDT Infusion Therapy Visit [facility] [place] [address] [address] [place] [phone] Ky Torres MD [address] [address] 12/30/2024 1:15 PM CDT Infusion Therapy Visit [address] [place] [phone] Yessica Mcleod PA-C [address] [place] [address] 12/30/2024 1:30 PM CDT Oncology Visit [address] [place] [phone] Yessica Mcleod PA-C [address] [place], [place] [address] 12/30/2024 2:30 PM CDT Infusion Therapy Visit [address] [place] [phone] Ky Torres MD [address] [address] 01/27/2025 1:00 PM CDT Infusion Therapy Visit [place] [address] [place] [phone] Ky Torres MD [address] [address] 01/27/2025 1:30 PM CDT Oncology Visit [address] [place] [phone] [place] [address] [place] [address] Yessica Mcleod PA-C [address] [place] [address] 01/27/2025 2:30 PM CDT Infusion Therapy Visit [facility] [address] [place] [phone] Ky Torres MD 420 [facility] [address] [place] [address] Health Maintenance Due Date Last Done Comments ADVANCE CARE PLANNING 1959 ANNUAL REVIEW OF HM ORDERS 1959 ASTHMA ACTION PLAN 1959 ASTHMA CONTROL TEST [address] CT COLONOGRAPHY 1959 FLEX SIG 1959 sDNA (Cologuard) 1959 COVID-19 VACCINE (#1) 02/14/1964 COLONOSCOPY 1969 HIV SCREENING 1974 HEPATITIS C SCREENING 1977 PNEUMOCOCCAL VACCINE 50+ YEARS (1 of 2 - PCV) 1978 ZOSTER VACCINE (1 of 2) 1978 LIPID 1999 RSV VACCINE (1 - Risk 60-74 years 1-dose series) 2019 FALL RISK ASSESSMENT 02/14/2024 MEDICARE ANNUAL WELLNESS VISIT 02/14/2024 INFLUENZA VACCINE (Season Ended) 2025 COLORECTAL CANCER SCREENING 06/08/2025 FIT 06/08/2025 06/08/2024 DIABETES SCREENING 11/05/2027 11/04/2024, 0 10/05/2024, 09/09/2024, Additional history exists DTAP/TDAP/TD VACCINE (4 - Td or Tdap) 02/28/2029 02/28/2019, 02/07/2013, 11/14/2006 PHQ-2 (once per calendar year) Completed 07/15/2024, 12/11/2023 AORTIC ANEURYSM SCREENING (SYSTEM ASSIGNED) Completed 11/04/2024, 08/01/2024, 01/13/2024, Additional history exists LUNG CANCER SCREENING Discontinued 11/04/2024 , 08/01/2024, 06/17/2024, Additional history exists HPV VACCINE Aged Out No longer eligi ble based on patient's age to complete this topic MENINGITIS VACCINE Aged Out No longer eligible based on patient's age to complete this topic Medical Devices Implanted Type Area Ice Skating Instructor Device Identifier Shelf Expiration Date Model / Serial / Lot Port-08/28/2023 Implanted:Qty: 1 on 08/28/2023 by Pipe Hernandez MD Port Right: Chest Wall [id number] 07/29/2026 / / [id number] Stent Ureteral Food Service Aide Diversion 07fr [id number] - [id number] Implanted:Qty: 1 on 12/22/2023 by Alvaro Clark MD at [facility] Stent N/A: Abdomen [employer] [id number] 11/19/2026 [id number] / / [id number] Procedures Procedure Name Priority Date/Time Associated Diagnosis Comments ROUTINE UA WITH MICROSCOPIC REFLEX TO CULTURE Routine 11/25/2024 1:33 PM CDT Lower abdominal pain URINE CULTURE Routine 11/10/2024 9:55 AM CDT Urothelial cancer (H) ROUTINE UA WITH MICROSCOPIC REFLEX TO CULTURE Routine 11/10/2024 9:55 AM CDT Urothelial cancer (H) CBC WITH PLATELETS & DIFFERENTIAL Routine 11/04/2024 9:55 AM CDT Malignant neoplasm of anterior wall of urinary bladder (H) CBC WITH PLATELETS AND DIFFERENTIAL Routine 11/04/2024 9:55 AM CDT Malignant neoplasm of anterior wall of urinary bladder (H) TSH WITH FREE T4 REFLEX Routine 11/04/2024 9:55 AM CDT Malignant neoplasm of anterior wall of urinary bladder (H) COMPREHENSIVE METABOLIC PANEL Routine 11/04/2024 9:55 AM CDT Malignant neoplasm of anterior wall of urinary bladder (H) CT CHEST/ABDOMEN/PELVIS W CONTRAST Routine 11/04/2024 9:48 AM CDT Urothelial cancer (H) Malignant neoplasm of anterior wall of urinary bladder (H) CBC WITH PLATELETS & DIFFERENTIAL Routine 10/05/2024 10:41 AM CDT Malignant neoplasm of anterior wall of urinary bladder (H) PSA TUMOR MARKER Add-On 10/05/2024 10:4 1 AM CDT Prostate cancer (H) CBC WITH PLATELETS AND DIFFERENTIAL Routine 10/05/2024 10:41 AM CDT Malignant neoplasm of anterior wall of urinary bladder (H) TSH WITH FREE T4 REFLEX Routine 10/05/2024 10:41 AM CDT Malignant neoplasm of anterior wall of urinary bladder (H) COMPREHENSIVE METABOLIC PANEL Routine 10/05/2024 10:41 AM CDT Malignant neoplasm of anterior wall of urinary bladder (H) URINE CULTURE Routine 09/09/2024 3:01 PM CDT Urothelial cancer (H) FISH BLADDER CANCER Routine 09/09/2024 3 :01 PM CDT Urothelial cancer (H) NON-GYNECOLOGIC CYTOLOGY Routine 09/09/2024 3:01 PM CDT Urothelial cancer (H) ROUTINE UA WITH MICROSCOPIC REFLEX TO CULTURE Routine 09/09/2024 3:01 PM CDT Urothelial cancer (H) CBC WITH PLATELETS & DIFFERENTIAL Routine 09/09/2024 1:08 PM CDT Malignant neoplasm of anterior wall of urinary bladder (H) CBC WITH PLATELETS AND DIFFERENTIAL Routine 09/09/2024 1:08 PM CDT Malignant neoplasm of anterior wall of urinary bladder (H) TSH WITH FREE T4 REFLEX Routine 09/09/2024 1:08 PM CDT Malignant neoplasm of anterior wall of urinary bladder (H) COMPREHENSIVE METABOLIC PANEL Routine 09/09/2024 1:08 PM CDT Malignant neoplasm of anterior wall of urinary bladder (H) OCCULT BLOOD STOOL 1-3 SPEC Routine 06/08/2024 9:00 AM SALESPERSON ART OBJECTS Iron deficiency anemia due to chronic blood loss from Last 3 Months or Most Recently Relevant to Health Maintenance Results * (ABNORMAL) UA with Microscopic reflex to Culture (11/25/2024 1:33 PM CDT) Only the most recent of3 resultswithin the time period is included. Color Urine Straw Colorless, Straw, Light Yellow, Yellow 11/25/2024 2:47 PM CDT [facility] Appearance Urine Clear Clear 11/26/19 2:47 PM CDT [facility] Glucose Urine Negative Negative mg/dL 11/25/2024 2:47 PM CDT [facility] Bilirubin Urine Negative Negative 2:47 PM CDT [facility] Ketones Urine Negative Negative mg/dL 11/25/2024 2:47 PM CDT [facility] Specific [place] Urine 1.005 1.003 - 1.035 11/25/2024 2:47 [...] - URINE ORD ERABLES Final Result LABORATORY [facility] Acute Care Lab [address] [facility] (1st floor, no room number) [place] [address], [facility] * (ABNORMAL) Urine Culture (11/10/2024 9:55 AM CDT) Only the most recent of2 resultswithin the time period is included. [facility] Culture 50,000-100,000 CFU/mL Staphylococcus epidermidis(A) 11/12/2024 8:34 [...] ORDERA BLES Final Result [facility] IDD LABORATORY [facility] Inf. Diseases Diag. Lab [address] [facility], [address] [place] [address] * (ABNORMAL) CBC with platelets and differential (11/04/2024 9:55 AM CDT) Only the most recent of3 [...] CDT 11/04/2024 10:02 AM CDT us Yessica Haynes PA-C LAB - BLOOD ORD ERABLES Final Result [facility] Lab [address] Lab (1st floor, no room number) [place] [address], [facility] * TSH with free T4 reflex (11/04/2024 9:55 AM CDT) Only the most recent of3 resultswithin the time period is included. TSH 2.86 0.30 - 4.20 uIU/mL 11/04/2024 10:32 AM CDT [facility] Blood (Portacath) IVAD (Port) / Unknown 11/04/2024 9:55 AM CDT 11/04/2024 10:02 AM CDT us Yessica Haynes PA-C LAB - BLOOD ORD ERABLES Final Result LABORATORY [facility] Lab [address] Lab (1st floor, no room number) [place] [address], [facility] * (ABNORMAL) Comprehensive metabolic panel (11/04/2024 9:55 AM CDT) Only the most recent of3 resultswithin the time period is included. [facility] Signature Sodium 138 135 - 145 mmol/L 11/04/2024 [...] 11/04/2024 10:26 AM CDT LABORATORY Comment:eGFR calculated us2020 CKD-EPI equation. Calcium 9.0 8.8 - 10.4 mg/dL 11/04/2024 10:26 AM CDT LABORATORY Chloride 102 98 - 107 mmol/L 11/04/2024 10:26 AM CDT LABORATORY Glucose 89 70 - 99 mg/dL 11/04/2024 10:26 AM CDT LABORATORY Alkaline Phosphatase 61 40 - 150 U/L 11/04/2024 10:26 AM CDT LABORATORY AST 28 0 - 45 U/L 11/04/2024 10:26 AM CDT LABORATORY ALT 18 0 - 70 U/L 11/04/2024 10:26 AM CDT LABORATORY Protein Total 6.3(L) 6.4 - 8.3 g/dL 11/04/2024 10:26 AM CDT [facility] Albumin 3.8 3.5 - 5.2 g/dL 11/04/2024 10:26 AM CDT [facility] Bilirubin Total 0.3 <=1.2 mg/dL 11/04/2024 10:26 AM CDT [facility] Blood (Portacath) IVAD (Port) / Unknown 11/04/2024 9:55 AM CDT 11/04/2024 10:02 AM CDT us Yessica Haynes PA-C LAB - BLOOD ORD ERABLES Final Result [facility] Acute Care Lab [address] Lab (1st floor, no room number) [place] [address], [facility] * CT Chest/Abdomen/Pelvis w Contrast (11/04/2024 9:48 [...] CDT EXAM: CT CHEST/ABDOMEN/PELVIS W CONTRAST LOCATION: [facility] DATE: 11/04/2024 INDICATION: monitoring bladder cancer on [...] 11/04/2024 EXAM: CT CHEST/ABDOMEN/PELVIS W CONTRAST LOCATION: [facility] DATE: 11/04/2024 INDICATION: monitoring bladder cancer on [...] less likely. Suggest correlation with clinical exam. us Dylan IBARRA IM CT ORDERABLES Final Re sult * PSA, tumor marker (10/05/2024 10:41 AM CDT) PSA Tumor Marker 0.04 0.00 - 4.50 ng/mL 10/05/2024 9:24 PM CDT [facility] Blood (Portacath) IVAD (Port) / Unknown 10/05/2024 10:41 AM CDT 10/05/2024 10:47 AM CDT Narrative [facility] - 10/05/2024 9:24 PM CDT This result is obtained using the Margo Elecsys total PSA method on the hadley e801 immunoassay analyzer, which is an ultrasensitive method. Results obtained with different assay methods or kits cannot be used interchangeably. An undetectable (<0.01 ng/mL) ultrasensitive prostate-specific antigen (USPSA) concentration after radical prostatectomy is reassuring and may aid in postoperative risk stratification of patients. A detectable USPSA concentration (> or =0.01 ng/mL) after radical prostatectomy (RP) does not necessarily translate into disease progression or recurrence. Interpretation of a detectable USPSA needs to be made in conjunction with other clinicopathologic risk factors. The cutpoint for interpretation of USPSA assays remains controversial and has ranged from 0.01 to 0.05 ng/mL. For example, in a study that included 754 men after RP, a cutpoint of 0.01 ng/mL was an independent predictor of biochemical recurrence (BCR). BCR-free survival at 5 years was 92.4% for patients with an USPSA post-RP of less than 0.01 ng/mL and 56.8% for patients with an USPSA post-RP of 0.01 ng/mL or higher.(1) In the same study a cutoff of 0.03 ng/mL also predicted BCR independent of clinicopathological factors and BCR-free survival at 5 yrs was 90.8% for patients with an USPSA post-RP of less than 0.03 ng/mL and 26.9% for patients with a PSA post-RP of greater or equal to 0.03 ng/mL. (1) 1. Dennys LJ, Len Z, Rigo DW, et al. Do ultrasensitive prostate specific antigen measurements have a role in predicting long-term biochemical recurrence-free survival in men after radical prostatectomy? J Urol. 2016;195(2):330-336. doi:10.1016/j.juro.2015.08.080 us Dylan IBARRA LAB - BLOOD ORDERABLES Fin al Result [facility] LAB[facility] Lab [address] [facility], Room [address] [place], [place] [id number] * FISH bladder cancer (09/09/2024 3:01 PM CDT) Final Diagnosis Specimen A Interpretation: - Negative UroVysion test Adequacy: Satisfactory for evaluation 09/21/2024 3:43 PM CDT SPECIALTY LABS at 1543 CDT Gross Description A(A). Urine, Midstream, :A. Urine, Midstream, , FISH UroVysion: Received 50 ml of cloudy, yellow fluid, split and processed as 1 Pap stained Autocyte and 1 slide made for Urovysion FISH. Negative: No interphase cytogenetic changes consistent with urothelial carcinoma by using the UroVysion FISH probe set. This test result does not rule out the possibility that the patient may have a low-grade non-invasive papillary urothelial carcinoma. METHODS: Florescence in-situ hybridization (FISH) was performed on urine using the [employer] UroVysion DNA probe set to the centromere region of chromosome 3, 7, and 17 and the 9p21 locus with appropriate control reactions. At least 25 non-inflammatory cells were scored. [facility], validated the performance characteristics of this assay. 09/21/2024 3:43 PM CDT SPECIALTY LABS Performing Labs The technical component of this testing was completed at [facility]. Stain controls for all stains resulted within this report have been reviewed and show appropriate reactivity. 09/21/2024 3:43 PM CDT SPECIALTY LABS Urine MID-STREAM URINE SPECIMEN / Unknown Non-blood Collection / Unknown 09/09/2024 3:01 PM CDT 09/09/2024 2:10 PM CDT us Dylan SPEARS Final Resu lt SPECIALTY LABS Specialty Lab [address] [facility], Room [address] [address] * (ABNORMAL) Cytology, non-gynecologic (09/09/2024 3:01 PM CDT) Final Diagnosis Specimen A Urinary Bladder, , Urine Cytology: Interpretation: Rare atypical groups, favor reactive atypia (please see comment) Other Findings: Acute inflammation present. Adequacy: Satisfactory for evaluation 09/12/2024 4:10 PM CDT LABORATORY at 1610 CDT Comment Rare atypical groups are present in a background of degenerative glandular type cells compatible with ileal conduit/neoblad shabbir urine. Reactive atypia is favored. Definitive high-grade ureteral carcinoma is not present. Please also correlate with FISH findings 09/12/2024 4:10 PM CDT LABORATORY Clinical Information hx urothelial cancer 09/12/2024 4:10 PM CDT LABORATORY Gross Description A(A). Urinary Bladder, :A. Urinary Bladder, , Urine Cytology: Received 50 ml of cloudy, yellow fluid, split and processed as 1 Pap stained Autocyte and 1 slide made for Urovysion FISH. 09/12/2024 4:10 PM CDT SPECIALTY LABS Microscopic Description Microscopic examination was performed. 09/12/2024 4:10 PM CDT LABORATORY Abnormal Result? Yes(A) No 09/12/2024 4:10 PM CDT LABORATORY Performing Labs The technical component of this testing was completed at [facility]. Stain controls for all stains resulted within this report have been reviewed and show appropriate reactivity. 09/12/2024 4:10 PM CDT SPECIALTY LABS Urine URINARY BLADDER STRUCTURE / Unknown Non-blood Collection / Unknown 09/09/2024 3:01 PM CDT 09/09/2024 2:10 PM CDT Dylan RIVER - BEAKER AP Final Resu lt Performing Organization Address City/[facility]/ZIP Co de Phone Number [facility] Lab [address] Lab (1st floor, no room number) [place] [address] SPECIALTY LABS Specialty Lab [address] [facility], [address] [place] [phone] * Occult blood stool 1-3 spec (06/08/2024 9:00 AM SALESPERSON ART OBJECTS) Occult Blood Slide 1 Negative Negative DAGMAR 06/17/2024 11:32 AM SALESPERSON ART OBJECTS LABORATORY Occult Blood Slide 2 Negative Negative DAGMAR 06/17/2024 11:32 AM SALESPERSON ART OBJECTS LABORATORY Occult Blood Slide 3 Negative Negative DAGMAR 06/17/2024 11:32 AM SALESPERSON ART OBJECTS LABORATORY Stool RECTAL CONTENTS / Unknown Non-blood Collection / Unknown 06/08/2024 9:00 AM SALESPERSON ART OBJECTS 06/17/2024 11:16 AM SALESPERSON ART OBJECTS Dylan IBARRA LAB - STOOLS ORDERABLES Fi nal Result [facility] Care Lab [address] Lab (1st floor, no room number) [place] [address] from Last 3 Months or Most Recently Relevant to Health Maintenance Insurance [employer] [place] MEDICARE [employer] MEDICARE Advance Directives For more information, please contact: [phone] * Full Code (Latest Code Status on [...] patie nt/ legal decision maker Care Teams Hair Assistant Relationship Specialty Start Date End Date Votel, Bhavin [address] [place] [address] PCP - General Family Medicine 12/28/23 Alvaro Clark MD [address] [place] [address] Assigned Surgical Provider 07/24/23 [place] [id number] [place] [address] Assigned Cancer Care Provider 06/23/24
--- OUTSIDE RECORDS SUMMARY | 2024-11-26 01:56 | XMS_ITS | Encounter Summary ---
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 file documented as of this encounter Plan of Treatment Upcoming Encounters Date Type Department Care Team (Late st Contact Info) Description 11/30/2024 1:00 PM CDT Infusion Therapy Visit [facility] [address] [address]BS 200 [place] [address] [place] [address] [address] 200 [place] [address] 11/30/2024 1:30 PM CDT Oncology Visit [facility] [address] [place] [address] [address] JACOBS 200 [place] [address] [place] [address] Jacobs 200 [place] [address] 11/30/2024 2:30 PM CDT Infusion Therapy Visit [address] JACOBS 200 [place] [address] Ky Torres MD [address] 3032[address] 12/30/2024 1:15 PM CDT Infusion Therapy Visit [facility] [address] [place] [address] DR JACOBS 200 [place] [address] Yessica Mcleod, PA-C [address] JACOBS 200 [place], [place] [address] 12/30/2024 1:30 PM CDT Oncology Visit [address] JACOBS 200 [place] [address] Yessica Mcleod, PA-C [address] JACOBS 200 [place] [address] 12/30/2024 2:30 PM CDT Infusion Therapy Visit [address] JACOBS 200 [place] [address] Ky Torres MD 420 [facility] 480 [place], [place] [address] 01/27/2025 1:00 PM CDT Infusion Therapy Visit [address] JACOBS 200 [place] [address] Ky Torres MD 420 [facility] [address] [place], [place] [address]135 01/27/2025 1:30 PM CDT Oncology Visit [address] JACOBS 200 [place] [address] [place] [address] [place], [place] 1764[address] Yessica Mcleod, RONALD [address] JACOBS 200 [place] [address] 01/27/2025 2:30 PM CDT Infusion Therapy Visit [address] JACOBS 200 [place] [address] Ky Torres MD [address] 29264[address] documented as of this encounter Visit Diagnoses Not on filedocumented in this encounter Care Teams Lambskin Trimmer Relationship Specialty Start Date End Date Votel, Bhavin [place] [address] PCP - General Family Medicine 12/28/23 Alvaro Clark MD 420 [facility] 394 [place], [place] 9728[address] Assigned Surgical Provider 07/24/23 [place] [address] Jacobs [address] [place] [address] [place] [address] Assigned Cancer Care Provider 06/23/24 documented as of this encounter
--- OUTSIDE RECORDS SUMMARY | 2024-11-26 01:56 | XMS_ITS ---
Author Organization [place] Address [address] [place] [address] Care Team Providers Care Traveling Nurse Name Role Phone Alvaro Clark MD Unavailable Bhavin Gardner Primary Care Provider [phone] Dylan Guerin Unavailable [phone] Active Problems Problem Noted Date Diagnosed Date Iron deficiency anemia due to chronic blood loss 02/10/2024 Small bowel obstruction 12/27/2023 Bladder cancer 12/22/2023 Cancer Staging:Pathologic stage from 01/15/2024:Stage IIIA(ypT4a, pN0, cM0) - Signed by Ky Torres MD on 01/18/2024 Urothelial cancer 09/06/2023 Lesion of bladder 07/10/2023 Current Treatment and Therapy Plans OP ONC Bladder Cancer - Nivolumab* Plan Start Date:01/15/2024 Plan Provider:Ky Torres MD Linked Problems Malignant neoplasm of anteri or wall of urinary bladder (H) Treatment Medications Current Day (Day 1 , Cycle 11 - Planned for 12/02/2024) Next Day (Day 1, Cycle 12 - Planned for 12/30/2024) nivolumab (OPDIVO)nivolumab 480 mg in 100 mL [...] loss Treatment Medications No medications scheduled. Past Treatment and Therapy Plans ONCOLOGY TREATMENT Plan Name Start Date Discontinue Date Treatment Medications Discontinue Reason Plan Provider Cycles OP ONC Bladder Cancer - Accelerated Methotrexate / vinBLAStine / DOXOrubicin / CISplatin (A-MVAC) 4 01/15/2024 CISplatin (PLATINOL) infusionDOXOrubicin (ADRIAMYCIN)methotrex atevinBLAStine (VELBAN) infusion Therapy Complete Melissa, Ky Acharya MD 4 of 4 cycles started Lifetime Dose Tracking * Chemical Lifetime Dose Automatic Entry Manual Entr y Doxorubicin 117.077 mg/m2 (240 mg) 117.077 mg/m2 (240 mg) 0 mg/m2 (0 mg) Total Air Kerma 2 mGy 2 mGy 0 mGy Fluoro Time 0.3 Minutes 0.3 Minutes 0 Minutes
--- OUTSIDE RECORDS SUMMARY | 2024-11-26 01:56 | XMS_ITS | Encounter Summary ---
Author Organization [facility] Address [address] [place] [address] Care Team Providers Care Fire Apparatus Sprinkler Inspector Name Role Phone Alvaro Clark MD Unavailable System, Provider Not In Primary Care Provider Un available Ky Torres MD Unavailable [phone] Sixto Whalen APRN ASSISTED LIVING NURSING DIRECTOR Unavailable [phone] No Ref-Primary, Physician Primary Care Provider Yessica Mcleod PA-C Unavailable Bhavin Gardner Primary Care Provider Ky Torres MD Unavailable [phone] Dylan Guerin Unavailable Ky Torres MD Unavailable [phone] Dylan Guerin Unavailable Encounter Details Date Type Department Care Team (Late st Contact Info) Description 09/02/2023 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 file documented as of this encounter Plan of Treatment Upcoming Encounters Date Type Department Care Team (Late st Contact Info) Description 11/30/2024 1:00 PM CDT Infusion Therapy Visit [place] [address] JACOBS 200 [place] [address] [place] [address] Jacobs 200 [place], [place] [address] 11/30/2024 1:30 PM CDT Oncology Visit [place] [address] JACOBS 200 [place] [phone] [place] [address] Jacobs 200 [place], [place] [address] 11/30/2024 2:30 PM CDT Infusion Therapy Visit [place] [address] JACOBS 200 [place] [address]15 Ky Torres MD [address] [place] [address] 12/30/2024 1:15 PM CDT Infusion Therapy Visit [place] [address] JACOBS 200 [place] [address] Yessica Mcleod PA-C [address] JACOBS 200 [place] [address] 12/30/2024 1:30 PM CDT Oncology Visit [address] JACOBS 200 [place] [address] Yessica Mcleod PA-C [address] JACOBS 200 [place] [address] 12/30/2024 2:30 PM CDT Infusion Therapy Visit [address] JACOBS 200 [place] [address] Ky Torres MD [address] 256[address] 01/27/2025 1:00 PM CDT Infusion Therapy Visit [address] JACOBS 200 [place] [address] Ky Torres MD [address] [place] [address] [address] 01/27/2025 1:30 PM CDT Oncology Visit [address] JACOBS 200 [place] [address] [place] [address] [place] [address] Dr Jacobs 200 [place], [place] 944037 Yessica Mcleod PA-C [address] JACOBS 200 [place] [address] 01/27/2025 2:30 PM CDT Infusion Therapy Visit [facility] [address] JACOBS 200 [place] [address] Ky Torres MD [address] [address] documented as of this encounter Visit Diagnoses Not on filedocumented in this encounter Care Teams Fire Apparatus Sprinkler Inspector Relationship Specialty Start Date End Date System, Provider Not In PCP - General Clinic 08/13/23 12/21/23 No Ref-Primary, Physician PCP - General 12/22/23 12/27/23 Bhavin Gardner [address] [place] [address] PCP - General Family Medicine 12/28/23 Alvaro Clark MD [address] [place] [address] Assigned Surgical Provider 07/24/23 Ky Torres MD [address] [place] [address] Assigned Cancer Care Provider 09/22/23 10/21/23 Sixto Whalen APRN CNP [address] [place] [address] Assigned Cancer Care Provider 10/22/23 12/21/23 Yessica Mcleod PA-C [address] JACOBS 200 [place] [address] Assigned Cancer Care Provider 12/22/23 01/21/24 Ky Torres MD 420 [facility] 480 [place] [address] Assigned Cancer Care Provider 01/22/24 04/22/24 [place] [address] [address] 200 [place] [address] Assigned Cancer Care Provider 04/23/24 05/22/24 Ky Torres MD [address] [address] Assigned Cancer Care Provider 05/23/24 06/22/24 [place] [address] [place] [place] [address] Assigned Cancer Care Provider 06/23/24 documented as of this encounter
--- OUTSIDE RECORDS SUMMARY | 2024-11-26 01:56 | XMS_ITS | Encounter Summary ---
Author Organization [facility] Address [address] [place] [address] Care Team Providers Care Aquaculturist Name Role Phone Alvaro Clark MD Unavailable System, Provider Not In Primary Care Provider Un available Ky Torres MD Unavailable [phone] Sixto Whalen APRN EXCHANGE ARCHITECT Unavailable [phone] No Ref-Primary, Physician Primary Care Provider Yessica Mcleod PA-C Unavailable Bhavin Gardner Primary Care Provider [phone] Ky Torres MD Unavailable [phone] Dylan Guerin Unavailable Ky Torres MD Unavailable [phone] Dylan Guerin Unavailable Encounter Details Date Type Department Care Team (Late st Contact Info) Description 09/28/2023 [facility] [place] [facility] [id number] [place] [address] DAISY 200 [facility] [place] [phone] Charlie Almonte, CARLOS Urothelial cancer (H) (Primary [...] file 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 Gender Identity Not on file Sexual Orientation Not on file 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 file documented as of this encounter Plan of Treatment Upcoming Encounters Date Type Department Care Team (Late st Contact Info) Description 11/30/2024 1:00 PM CDT Infusion Therapy Visit [place] [address] [place] [address] JACOBS 200 [place] [phone] [place] [address] [place] [address] Jacobs 200 [place], [place] [address] 11/30/2024 1:30 PM CDT Oncology Visit [place] [address] [address] 200 [place] [address] [place] [address] [place] [address] Jacobs 200 [place], [place] [address] 11/30/2024 2:30 PM CDT Infusion Therapy Visit [place] [address] [place] [address] JACOBS 200 [place] [address] Ky Torres MD 420 [facility] 480 [place] [address] 12/30/2024 1:15 PM CDT Infusion Therapy Visit [place] [address] [place] [address] JACOBS 200 [place] [phone] Yessica Mcleod, PA-C [address] [facility] [address] J[address] 200 [place] [address] 12/30/2024 1:30 PM CDT Oncology Visit [facility] [address] [place] [address] JACOBS 200 [place] [address] Yessica Mcleod PA-C [address] JACOBS 200 [place], [place] [address] 12/30/2024 2:30 PM CDT Infusion Therapy Visit [address] JACOBS 200 [place] [address]15 Ky Torres MD [address] 896865 01/27/2025 1:00 PM CDT Infusion Therapy Visit [address] JACOBS 200 [place] [address]65[address]15 Ky Torres MD [address] [place] [address] 137895 01/27/2025 1:30 PM CDT Oncology Visit [place] [address] [place] [address] JACOBS 200 [place] [address] [place] [address] [place] Jacobs 200 [place], [place] 2565[address] Yessica Mcleod PA-C [address] JACOBS 200 [place], [place] [address] 01/27/2025 2:30 PM CDT Infusion Therapy Visit [place] [address] [place] [address] JACOBS 200 [place] [address]25[address] Ky Torres MD [address] 774495 documented as of this encounter Visit Diagnoses Diagnosis Urothelial cancer (H)- Primary Malignant neoplasm of other specified sites of urinary organs documented in this encounter Care Teams Aquaculturist Relationship Specialty Start Date End Date System, Provider Not In PCP - General Clinic 08/13/23 12/21/23 No Ref-Primary, Physician PCP - General 12/22/23 12/27/23 Bhavin Gardner [address] [place] [address] PCP - General Family Medicine 12/28/23 Alvaro Clark MD [address] [place] [address] Assigned Surgical Provider 07/24/23 Ky Torres MD [address] [place] [address] Assigned Cancer Care Provider 09/22/23 10/21/23 Sixto Whalen APRN CNP [address] [place] [address] Assigned Cancer Care Provider 10/22/23 12/21/23 Yessica cMleod, PAJannetC [address] [address] [place] [address] Assigned Cancer Care Provider 12/22/23 01/21/24 Ky Torres MD [address] [place] [address] Assigned Cancer Care Provider 01/22/24 04/22/24 [place] [address] [place] [address] [place] [address] Assigned Cancer Care Provider 04/23/24 05/22/24 Ky Torres MD [address] [place] [address] Assigned Cancer Care Provider 05/23/24 06/22/24 [place] [address] [place] [address] Assigned Cancer Care Provider 06/23/24 documented as of this encounter
--- OUTSIDE RECORDS SUMMARY | 2024-11-26 01:56 | XMS_ITS | Encounter Summary ---
Author Organization [facility] Address [address] [place] [address] Care Team Providers Care University Dean Name Role Phone Alvaro Clark MD Unavailable Bhavin Gardner Primary Care Provider [phone] Dylan Guerin Unavailable [phone] Encounter Details Date Type Department Care Team (Late st Contact Info) Description 11/25/2024 Results Follow-Up [facility] [address] [place] [address] JACOBS 200 [facility] [place] [phone] Yessica Mcleod, PA-C [address] [place] [address] Social History Tobacco Use Types Packs/Day Years [...] on file 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 Gender Identity Not on file Sexual Orientation Not on file 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 file documented as of this encounter Plan of Treatment Upcoming Encounters Date Type Department Care Team (Late st Contact Info) Description 11/30/2024 1:00 PM CDT Infusion Therapy Visit [address] JACOBS 200 [place] [phone] [place] [address] [place] [address] [place], [place] [address] 11/30/2024 1:30 PM CDT Oncology Visit [address] JACOBS 200 [place] [address] [place] [address] Jacobs [address] [place], [place] [address]67[address] 11/30/2024 2:30 PM CDT Infusion Therapy Visit [address] JACOBS 200 [place] [address]15 Ky Torres MD [address] 7[address] 12/30/2024 1:15 PM CDT Infusion Therapy Visit [address] JACOBS 200 [place] [address] Yessica Mcleod PA-C [address] JACOBS 200 [place] [address] 12/30/2024 1:30 PM CDT Oncology Visit [address] JACOBS 200 [place] [phone] Yessica Mcleod PA-C [address] JACO[address] [place], [place] [address]597 12/30/2024 2:30 PM CDT Infusion Therapy Visit [address] JACOBS 200 [place] [address]15 Ky Torres MD [address] 780735 01/27/2025 1:00 PM CDT Infusion Therapy Visit [address] JACOBS 200 [place] [address]2515 Ky Torres MD [address] 322[address] 01/27/2025 1:30 PM CDT Oncology Visit [facility] [address] [place] [address] DR JACOBS 200 [place] [address] [place] [address] [place], [place] [address] Yessica Mcleod PA-C [address] [place], [place] [address] 01/27/2025 2:30 PM CDT Infusion Therapy Visit [address] JACOBS 200 [place] [address] Ky Torres MD [address] 438535 documented as of this encounter Visit Diagnoses Not on filedocumented in this encounter Care Teams University Dean Relationship Specialty Start Date End Date Votel, Bhavin [address] [place] [address] PCP - General Family Medicine 12/28/23 Alvaro Clark MD [address] [place] [address] Assigned Surgical Provider 07/24/23 [place] [address] [address] Jacobs [address] [place] [address] Assigned Cancer Care Provider 06/23/24 documented as of this encounter
--- NOTE | 2024-11-26 02:05 | ED_ITS ---
HPI - General Adult General Date Seen: 11/26/24 Chief complaint: Abdominal Pain Stated complaint: chills, difficulty breathing Time Seen by Provider: 11/26/24 02:05 History of Present Illness HPI narrative: 64-year-old gentleman with history of bladder cancer currently on chemotherapy (through [facility], presents to the ER today with abdominal pain. Apparently was seen in another ER ([facility] in [place] and was diagnosed with urine and infection. He was prescribed nitrofurantoin. It sounds like the patient gets monthly infusions of chemotherapy because of his history of bladder cancer and because of his history of UTIs he always gets a urinalysis up prior to his chemo each month. He had his urinalysis about 10 days or 2 weeks ago. It was abnormal and he was put on antibiotic,although he was not having lot of symptoms UTI at that time. He had taken the antibiotic. A couple of days ago or perhaps last night he had some lower abdominal discomfort and a little bit of pain into his right flank. He was seen at the ER at [facility] yesterday and had a urinalysis as was the abnormal so he was prescribed a new antibiotic (Macrobid). He was able to take it at home. Tonight at home he had an episode where he had some shortness of breath and chest pain. He has a known history of asthma/COPD so he used his nebulizer and that symptom resolved. He really has to use his nebulizer. Perhaps once every month or 2. He has not had any other episodes of chest pain lately. There were no palpitations. He has not had any recent cough. No stuffy nose. After that episode of chest pain, tonight after he was sleeping he was woken bec ause he had body aches and shaking rigors and chills and felt hot and cold. Recalling the instructions of his doctors, he knew that the fever and chills could be signs of worsening urine infection so came here to the ER. He is not really having abdominal pain or flank pain tonight but did have some pain yesterday. Per medical records few both through [facility] link- Oncology HPI: Oleg Richard is a 64 year old male with MIB C and below is his oncology history and treatment summary: TREATMENT SUMMARY: Oleg presented with urinary retention to the [place] ED on 05/26/23. He had urinary urgency and frequency for the previous few weeks. He was noted to have urinary retention and blood in urine without any infection. He had a CT scan done in ED which showed decompressed bladder with parry and was otherwise unremarkable. He then was seen by Carolina Arrieta in urology at [facility] and referred for cystoscopy. He had cystoscopy done in clinic by Dr. Clark on 07/10/23 and then called in for repeat blue light cystoscopy with TURBT done on 07/22/23 which confirmed high-grade muscle invasive papillary urothelial carcinoma with focal glandular differentiation. He was referred to medical Oncology and recommended neoadjuvant chemotherapy with ddMVAC. He completed 4 cycles of ddMVAC. Chemotherapy 09/29/2023 10:29 AM 10/13/2023 10:55 AM 10/28/2023 9:55 AM 11/10/2023 9:53 AM Day, Cycle Day 1, Cycle 1 Day 1, Cycle 2 Day 1, Cycle 3 Day 1, Cycle 4 CISplatin (PLATINOL) IV 140 mg 140 mg 140 mg 140 mg DOXOrubicin (ADRIAMYCIN) IVP 30 mg/m2 30 mg/m? 30 mg/m? 30 mg/m? methotrexate IVP 30 mg/m2 30 mg/m? 30 mg/m? 30 mg/m? Vinblastine (Velban) IV 3 mg/m? 3 mg/m? 3 mg/m? 3 mg/m? He underwent radical cystoprostatectomy with neobladder creation on 12/22/23. Pathology from this resection revealed residual high grade urothelial cancer that extended to the prostatic stroma. Additionally incidental prostate cancer was identified. He was staged as [id number] disease. CURRENT INTERVENTIONS: Post neoadjuvant chemotherapy followed by radical cystoprostatectomy on 12/22/23. Recommended adjuvant Nivolumab x 1 year started Jan 2024. Monitor PSA for incidental prostate cancer. He is here today for nivolumab. Interval History: Oleg is here unaccompanied today. He continues to tolerate nivolumab pretty well. Continues to self catheterize 1-3 times per day. Still has ongoing mucus, still of the excessive flow a little, but no dysuria or hematuria. He states that when he has been on Macrobid in the past, this has helped with the mucus. No infectious symptoms recently. No other new complaints. Review of Systems: See interval hx. Denies fevers, chills, LIU, dizziness, n/t, changes in vision, cough, CP, SOB, abdominal pain, N/V, diarrhea, bleeding, bruising, rash. PMHx and Social Hx reviewed per EPIC. Medications: Current Outpatient Medications Medication Sig Dispense Refill acetaminophen-caffeine (EXCEDRIN TENSION HEADACHE) 500-65 MG TABS Take 2 tablets by mouth every 6 hours as needed for mild pain (PRN HEADACHE) albuterol (PROAIR HFA/PROVENTIL HFA/VENTOLIN HFA) 108 (90 Base) MCG/ACT inhaler Inhale 2 puffs into the lungs every 6 hours as needed for shortness of breath, w heezing or cough. 18 g 3 diphenhydrAMINE HCl (BENADRYL ALLERGY PO) Take 1 tablet by mouth as needed polyethylene glycol (MIRALAX) 17 GM/Dose powder Take 17 g by mouth daily 510 g 0 senna-docusate (SENOKOT-S/PERICOLACE) 8.6-50 MG tablet Take 1 tablet by mouth 2 times daily 40 tablet 0 triamcinolone (KENALOG) 0.1 % external lotion Apply topically 3 times daily. To itchy areas. 60 mL 2 Allergies Allergen Reactions Penicillins Nausea and Vomiting EXAM: BP 120/72 (Cuff Size: Adult Regular) Pulse 66 Temp 98 ?F (36.7 ?C) (Temporal) Resp 16 Ht 1.721 m (5' 7.75) Wt 83.5 kg (184 lb) SpO2 96% BMI 28.18 kg/m? GENERAL: Male, in no acute distress. Alert and oriented x3. Well groomed. HEENT: Normocephalic, atraumatic. No conjunctival injection or eye swelling. LUNGS: Nonlabored breathing, no cough or audible wheezing, able to speak full sentences. MSK: Full ROM UE. SKIN: No rash on exposed skin. NEURO: CN grossly intact, speech normal PSYCH: Mentation appears normal, insight and judgement intact Labs: 11/04/24 09:55 Sodium 138 Potassium 4.4 Chloride 102 Carbon Dioxide (CO2) 28 Urea Nitrogen 16.3 Creatinine 1.13 GFR Estimate 72 Calcium 9.0 Anion Gap 8 Albumin 3.8 Protein Total 6.3 (L) Alkaline Phosphatase 61 ALT 18 AST 28 Bilirubin Total 0.3 Glucose 89 TSH 2.86 WBC 7.6 Hemoglobin 12.6 (L) Hematocrit 38.3 (L) Platelet Count 235 RBC Count 4.34 (L) MCV 88 MCH 29.0 MCHC 32.9 RDW 12.5 % Neutrophils 61 % Lymphocytes 16 % Monocytes 10 % Eosinophils 12 % Basophils 1 % Immature Granulocytes 1 NRBC/W 0 Absolute Neutrophil 4.7 Absolute Lymphocytes 1.2 Absolute Monocytes 0.8 Absolute Eosinophils 0.9 (H) Absolute Basophils 0.1 Absolute Immature Granulocytes 0.1 Absolute NRBCs 0.0 Imaging: n/a Impression/Plan: Oleg Richard is a 64 year old male with MIBC s/p neoadjuvant DD MVAC, cystoprostatectomy with neobladder currently on nivolumab x 1 year, first dose January 2024. # Muscle Invasive Urothelial Cancer S/p post neoadjuvant ddMVAC and cystoprostatectomy with neobladder [id number] disease *prostate stroma involvement. Residual disease on pathology despite aggressive neoadjuvant chemotherapy. - Recommend adjuvant Nivolumab x 1 year. Started 02/11/24 - Tolerating well with no side effects. Labs with no concerns, see anemia discussion below - O2 has occasionally ran low, prior work-up negative for pneumonitis. Has asthma/emphysema. Continue albuterol PRN and monitoring - Continues to have mucus in urine - Lotion for skin concerns helping - Continue with cycle 10 today - Plan for treatment every 4 weeks with imaging in October, ordered - Urine FISH negative for recurrent disease # Prostate Cancer Incidental on pathology from cystoprostatectomy, Ellen 3+ 4. - Will monitor PSA. Baseline 0.02 - Repeat PSA stable at 0.04 # Recurrent UTI Post Surgery Has completed multiple abx courses, has had multiple ED visits - Urology following, now doing self-cath 1-3 times a day - July CT concerning for cystitis, UA is abnormal with positive culture with staph - Due to leukocytosis/abnormal UA did completed Macrobid course. - Ongoing mucus, suspect post surgical, Urology recommended hydration and increased self- catheterization Addendum 11/11/2024: Repeat UA and urine culture with preliminary showing Staphylococcus epidermidis again. Looking back at previous urine culture results and speaking to pharmacy, cephalexin and Augmentin may be the best options, but he has a penicillin allergy, so we will hold off on the Augmentin. We will try cephalexin 500 mg BID x 10 days. He is concerned that in the past 7 days was not enough. Final urine culture pending, but I sent cephalexin to his pharmacy. # Anemia Last chemotherapy October 2023 - Iron studies concerning for [facility] with iron sat low at 7% - Received Venofer x 3 Jan- Apr 2024 , hgb stable - Patient has never had a colonoscopy and is declining now. Occult stool negative for blood. - B12 and iron levels WNL. Monitor Related Data Previous Rx's ?Medication ?Instructions ?Recorded albuterol sulfate 2.5 mg/3 mL 2.5 mg (3 mL) inhalation Q4-6H PRN 09/23/24 (0.083 %) solution for nebulization bronchospasm #180 mL cefdinir 300 mg capsule 300 mg PO BID #20 caps 11/26 Allergies Allergy/AdvReac Type Severity Reaction Status Date / Time Penicillins Allergy Intermediate Verified 09/23/24 12:53 [facility] Medical History Reactive airway disease ?J45.909 - Unspecified asthma, uncomplicated (ICD-10) Pneumonia ?J18.9 - Pneumonia, unspecified organism (ICD-10) Surgical History History of pyloric stenosis as a child ?Z87.19 - Personal history of other diseases of the digestive system (ICD-10) Family History Father Cancer of kidney Myocardial infarction, Onset Age: 87 Grandfather Myocardial infarction Grandmother Myocardial infarction Social History 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, 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, 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 Ex-smoker quit in 2012 60 pack year Does not drink alcohol, 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, remote use of cocaine and marijuana no IV drug use ever 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 What is your current living situation?: I presently have a place to live Problems where you live: no known problems In the past 12 months, utilities in danger of being shut off: no In past 12 months, lack of transportation kept you from medical appts, meetings, work, or getting things needed for daily living: no In the past 12 mos, have been you worried that your food would run out before you had money to buy more?: never true In the past 12 mos, the food you bought just didn't last and you didn't have money to buy more?: never true Smoking Status: Former smoker Do you use any of these nicotine containing products: None Second hand tobacco smoke exposure: No How often do you have a drink containing alcohol: never AUDIT-C Alcohol total score: 0 Non-prescribed substance use: denies use How often does anyone, including family, friends and others, physically hurt you : never How often does anyone, including family, friends and others, insult or talk down to you: never How often does anyone, including family, friends and others, threaten you with harm: never How often does anyone, including family, friends and others, scream or curse at you: never Exam Narrative: Exam Narrative: Constitutional: Appears well-developed and well-nourished. Alert. Conversant. Non toxic. HENT: Head: Atraumatic. Nose: Nose normal. Mouth/Throat: Oral mucosa is clear and moist. no trismus. Pharynx normal. Tonsils symmetric. No tonsillar enlargement, erythema, or exudate. Eyes: Conjunctivae normal. EOM normal. Pupils equal, round, and reactive to light. No scleral icterus. Neck: Normal range of motion. Neck supple. No tracheal deviation present. Cardiovascular: Normal rate, regular rhythm. No gallop. No friction rub. No murmur heard. Symmetric radial artery pulses Pulmonary/Chest: Effort normal. No stridor. No respiratory distress. Minimal wheezes more in the right lung than on the left. No rales. No rhonchi . No tenderness. Abdominal: Soft. Bowel sounds normal. No distension. No mass. No tenderness. No CVA tenderness No rebound. No guarding. Healed lower midline vertical incision. Musculoskeletal: RUE: Normal range of motion. No tenderness. No deformity LUE: Normal range of motion. No tenderness. No deformity RLE: Normal range of motion. No edema. No tenderness. No deformity LLE: Normal range of motion. No edema. No tenderness. No deformity Neurological: Alert and oriented to person, place, and time. Normal strength. CN II-VII intact. No sensory deficit. GCS eye subscore is 4. GCS verbal subscore is 5. GCS motor subscore is 6. Normal coordination Skin: Skin is warm and dry. No rash noted. No pallor. Normal capillary refill. Psychiatric: Normal mood. Normal affect. Const: Vital Signs, click to edit/add: Vital Signs - 24 hr 11/26/24 01:55 11/26/24 03:30 11/26/24 03:40 Temperature 97.6 F Pulse Rate 106 H Pulse Rate [Left P ulse Oximeter] 115 H 104 H Respiratory Rate 20 18 Blood Pressure 116/66 Blood Pressure [Ri ght Upper Arm] 136/93 H 116/66 Pulse Oximetry 92 93 93 Oxygen Delivery Me thod Room Air Room Air 11/26/24 03:41 11/26/24 04:00 11/26/24 04:03 Temperature Pulse Rate 108 H 109 H 109 H Pulse Rate [Left P ulse Oximeter] Respiratory Rate Blood Pressure 133/66 Blood Pressure [Ri ght Upper Arm] Pulse Oximetry 92 95 95 Oxygen Delivery Me thod 11/26/24 04:04 11/26/24 05:00 11/26/24 05:01 Temperature Pulse Rate 109 H 110 H 109 H Pulse Rate [Left P ulse Oximeter] Respiratory Rate Blood Pressure 114/62 Blood Pressure [Ri ght Upper Arm] Pulse Oximetry 94 89 90 Oxygen Delivery Me thod Course Course ED Course: Sepsis Reassessment Date exam performed: 11/26 Time exam performed: 304 Focused Exam: I have reassessed tissue perfusion after bolus given Current stage of sepsis: Sepsis without septic shock Reevaluation(s) Reevaluation #1: Multiple bedside reassessments. Patient's heart rate came down from the 1 teens down to about 105. He did temporarily have sats about 89-91% while sleeping but sats came up to the mid 90s while awake. Lung sounds minimally wheezy but not requiring more treatments with bronchodilators. Discussed admission with the patient. He says normally he would be admitted but today as to go home because it is his mother's birthday. He understands my concern for sepsis and worsening UTI. He will start his new antibiotic. He will come back to the ER if he gets worse. Precautions for return to the ER reviewed. Vital Signs Vital signs: Initial Vital Signs Temperature 97.6 F 11/26/24 01:55 Temperature Source Temporal Artery Scan 11/26/24 01:55 Pulse Rate 115 H 11/26/24 01:55 Pulse Rhythm Regular 11/26/24 01:55 Respiratory Rate 20 11/26/24 01:55 Blood Pressure 136/93 H 11/26/24 01:55 Blood Pressure Mean 107 H 11/26/24 01:55 Blood Pressure Position Sitting 11/26/24 01:55 Pulse Oximetry 92 11/26/24 01:55 Oxygen Delivery Method Room Air 11/26/24 01:55 Vital Signs Temperature 97.6 F 11/26/24 01:55 Pulse Rate 115 H 11/26/24 01:55 Respiratory Rate 20 11/26/24 01:55 Blood Pressure 136/93 H 11/26/24 01:55 Pulse Oximetry 92 11/26/24 01:55 Oxygen Delivery Method Room Air 11/26/24 01:55 Temperature 97.6 F 11/26/24 01:55 Pulse Rate 109 H 11/26/24 05:01 Respiratory Rate 18 11/26/24 03:30 Blood Pressure 114/62 11/26/24 05:01 Pulse Oximetry 90 11/26/24 05:01 Oxygen Delivery Method Room Air 11/26/24 03:30 Medications Administered Medications: Discontinued Medications Generic Name Dose Route Start Last Admin Trade Name Freq PRN Reason Stop Dose Admin Acetaminophen 1,000 mg 11/26/24 02:29 11/26/24 02:55 Acetaminophen 500 Mg Tablet PO 11/26/24 02:30 1,000 mg ONCE ONE Administration Sodium Chloride 1,000 mls @ 1,000 mls/hr 11/26/24 02:30 11/26/24 04:33 0.9 % Sodium Chloride 1000 Ml IV 11/26/24 03:29 Infused .Q1H BALBINA Infusion Sodium Chloride 1,000 mls @ 1,000 mls/hr 11/26/24 04:30 11/26/24 04:44 0.9 % Sodium Chloride 1000 Ml IV 11/26/24 05:29 1,000 mls/hr .Q1H BALBINA Administration Ceftriaxone Sodium 2 gm/ 100 mls @ 200 mls/hr 11/26/24 04:23 11/26/24 05:18 Sodium Chloride IVPB 11/26/24 04:24 Infused ONCE ONE Infusion Medical Decision Making MDM Narrative Medical decision making narrative: This is a pleasant 64-year-old gentleman with history of bladder cancer with previous cystectomy now with neobladder. He has a history of frequent UTIs since he has had his neobladder placed and is currently on Macrobid for a ongoing UTI. He presents to the ER tonight with body aches, shaking rigors and fever and chills that began overnight tonight. Upon presentation he is hemodynamically stable with normal blood pressure normal mental status but he does have sinus tachycardia. We did workup for fever and possible sepsis. He did have an episode of shortness of breath the night and although that resolved after his nebulizer, we did do a chest x-ray to look for pneumonia. Chest x-ray is clear. Influenza/COVID swab is negative. With tachycardia and elevated white count this does meet 2/4 sirs criteria so would qualify for sepsis but he is not hypotensive. Venous lactic acid is norm al. This does not qualify for septic shock. Heart rate came down from 114 down to 105 after 1 L of IV fluid. After a 2 L of IV saline, heart rate is improved down to about 105 while resting. At this point, the patient does meet criteria for sepsis with tachycardia and fever and leukocytosis. Since he is a chemo patient and is already failing outpatient antibiotics, I recommend admission for IV antibiotics and further treatment. Discussed this with the patient. He understands and under normal circumstances he would accept my recommendation. Today however, he has to go home because it is his mother's 90th birthday democrat. He understands the risk of worsening illness if he is not hospitalized. Since he wants to discharge will at least try to changes antibiotic and will put him on a oral cephalosporin to try to treat his urine. Unfortunately I do not have any urine culture results with sensitivities and on my bili see any urine culture results from the [facility] system to help guide her antibiotic therapy. Based on the fact that his urine came a fairly abnormal despite previous antibiotics, will change from Macrobid to cefdinir. Precautions for return to the ER reviewed. In terms of the patient's episode of shortness of breath and chest tightness earlier, strongly suspect this is probably an exacerbation of asthma/COPD because he reports resolution after he gave himself a nebulizer. Ongoing lung sounds are minimally wheezy here. He is currently asymptomatic in terms of his breathing. His primary here because he had the episode of shaking rigors and chills at home. However , a broad differential is considered. No evidence of palpitations, syncope or other cardiac dysrhythmia while here in the ER We considered possible ACS, however workup with EKG and troponin is negative. EKG shows no evidence for pericarditis. Clinical presentation not suggestive of myocarditis. Chest x-ray shows no evidence for pneumonia, pneumothorax, pulmonary edema, pleural effusion, rib fracture, cardiomegaly. Mediastinum is normal on the x-ray. The patient has no ripping or tearing pain through to the back and has symmetric pulses on exam, no other acute neuro findings so I doubt aortic dissection. Risk of radiation and contrast exposure would outweigh the benefit of CT angiogram. We considered PE for this patient. D-dimer is normal.. Suspect his sinus tachycardia is related to infection/sepsis, not PE. No signs of chest wall cellulitis, shingles, injury. With reasonable clinical confidence, I think the patient is safe for outpatient follow up. Discussed return precautions. Questions answered. Patient voices comfort with the plan. Lab Data Labs: Lab Results 11/26/24 11/26/24 Range/Units 02:30 03:10 WBC 14.40 H (4.50-11.00) K/uL RBC 4.29 L (4.30-5.90) m/uL Hgb 12.4 L (13.5-17.5) gm/dL Hct 37.9 (37.0-53.0) % MCV 88 (80-100) fL MCH 29 (26-34) pg MCHC 33 (32-36) gm/dL RDW Coeff of Pamela 12.6 (11.5-15.5) % Plt Count 179 (140-440) K/uL Neut % (Auto) 91.9 H (42.0-72.0) % Lymph % (Auto) 1.9 L (20-44) % [place] % (Auto) 3.1 (0.0-11.0) % Eos % (Auto) 1.6 (0.0-7.0) % Baso % (Auto) 0.1 (0.0-3.0) % Neut # (Auto) 13.20 H (1.7-7.0) K/uL Lymph # (Auto) 0.30 L (0.90-2.90) K/uL [place] # (Auto) 0.40 (0.00-0.90) K/UL Eos # (Auto) 0.20 (0.00-0.50) K/uL Baso # (Auto) 0.00 (0.00-0.30) K/uL Abs Immat Gran (auto) 0.20 (0.00-0.30) K/uL Imm/Tot Granulo (auto) 1.4 % D-Dimer Quant (PE/DVT) 0.35 (0.00-0.50) ug/ml Sodium 136 (135-149) mmol/L Potassium 3.5 L (3.6-5.1) mmol/L Chloride 102 (96-114) mmol/L Carbon Dioxide 27 (20-32) mmol/L Anion Gap 7 (7-15) mEq/L BUN 16 (7-30) mg/dL Creatinine 1.0 (0.5-1.5) mg/dL Estimated Creat Clear 71.25 Estimated GFR 84 ml/min Glucose 137 H (60-115) mg/dL Lactate 1.5 (0.5-1.9) mmol/L Calcium 8.9 (8.4-10.6) mg/dL Urine Color Light yellow (Yellow) Urine Appearance Turbid A (Clear) Urine pH 6.5 (5.0-8.5) Ur Specific [place] 1.015 (1.000-1.030) Urine Protein 1+ A (Negative) Urine Glucose (UA) Negative (Negative) Urine Ketones Negative (Negative) Urine Blood 2+ A (Negative) Urine Nitrite Negative (Negative) Urine Bilirubin Negative (Negative) Urine Urobilinogen 0.2 (0.2-1.0) Ur Leukocyte Esterase 3+ A (Negative) Urine RBC 10-25 A (0-2) Urine WBC >100 A (0-5) Urine WBC Clumps Many A (None) Ur Squamous Epith Cells Few (None-Few) Amorphous Sediment Many A (None) Other Sediment Many A (None) Urine Bacteria Many A (None) SARS-CoV-2 (PCR) Negative SARS-CoV-2 (Negative) Influenza Type A (PCR) Negative PCR FLU A (Negative) Influenza Type B (PCR) Negative PCR FLU B (Negative) POC Troponin I 0.01 (0.01-0.04) ng/ml Imaging Data Chest x-ray: Attestation: I have reviewed the pertinent imaging results. Radiologist's impression: Findings/Impression: No acute cardiopulmonary process detected. CT scan - abdomen: Attestation: I have reviewed the pertinent imaging results. Radiologist's impression: Impression: Postoperative changes again noted from cystectomy and neobladder creation. Allowing for the absence of IV contrast, no acute abnormality is appreciated. ECG Data Attestation: I personally reviewed and interpreted this ECG as follows: Interpretation: Sinus tachycardia Rate: 107 WV: 120 to QRS axis: Normal axis ST segment/T wave: Nonspecific T-wave flattening. No ST segment elevation or depression QTc: 432 Discharge Plan Discharge Clinical Impression: Acute UTI, Sepsis Patient Disposition: Home, Self-Care Condition: Guarded Instructions: Urinary Tract Infection in Men (DC), Sepsis (DC) Additional Instructions: As we discussed, please return to the ER right away if you have any worsening her condition-especially if you have more fevers, weakness, chills or shakes, nausea, dehydration, confusion. We gave you a dose of antibiotic tonight while you were in the [facility]. This antibiotic will cover you for the next 24 hours but please fill your prescription today and start on your new antibiotic (cefdinir) by this afternoon. It is okay to stop the previous antibiotic (Macrobid). Please recheck with your regular doctor by Thursday. You can check with them about the urine culture that was done at [facility] a couple of days ago, and they may be able to recheck your lab work to make sure white count is getting better. The [facility] run a urine culture. We may have to call you in 1-2 days to adjust her antibiotic treatment based on the results of urine culture. Prescriptions: New cefdinir 300 mg capsule 300 mg PO BID Qty: 20 0RF No Action albuterol sulfate 2.5 mg /3 mL (0.083 %) solution for nebulization 2.5 mg inhalation Q4-6H PRN (Reason: bronchospasm) Qty: 180 0RF Follow Up/Referrals: Rosa Maria Alatorre MD [Primary Care Provider, Family Practice] Stand Alone Forms: [employer] Info Instructions
--- NOTE | 2024-11-26 02:29 | CRLHL7_ITS ---
For Patients: As a result of the Cures Act, medical imaging exams and procedure reports are released immediately into your electronic medical record. You may view this report before your referring provider. If you have questions, please contact your health care provider. Indication: Chest pain, shortness of breath Technique: Two views of the chest Comparison: None Findings/Impression: No acute cardiopulmonary process detected. Dictated by Michael Ang MD @ 11/26/2024 2:53:24 AM (Electronically Signed)
--- NOTE | 2024-11-26 02:30 | CRLHL7_ITS ---
For Patients: As a result of the Century Cures Act, medical imaging exams and procedure reports are released immediately into your electronic medical record. You may view this report before your referring provider. If you have questions, please contact your health care provider. Indication: Abdominal pain, UTI Technique: Noncontrast CT through the abdomen and pelvis with multiplanar reformats. Comparison: CT abdomen pelvis performed 04/04/2024 Findings: Lower chest: No significant interval change. Hepatobiliary: Unchanged hepatic hypodensities. No acute abnormality appreciated. Spleen: Unremarkable. Pancreas: No acute abnormality appreciated. Adrenal glands: No acute abnormality appreciated. Kidneys: No significant parenchymal abnormality appreciated. No visualized calculi. No hydronephrosis. Bowel: No obstruction. Diverticulosis. Postoperative changes to the bowel noted. No focal perienteric or pericolonic stranding is appreciated. The appendix is visualized and appears unremarkable. Vascular: Calcified atherosclerosis. Lymph nodes: Postoperative changes again noted. Peritoneum: No free air. No free fluid. : Status post cystectomy and neobladder creation again noted, grossly unchanged from prior study. Soft tissues: Postoperative changes to the ventral abdominal wall. Bones: No acute fracture. No lytic or blastic lesion. Degenerative changes of the spine and pelvis. Impression: Postoperative changes again noted from cystectomy and neobladder creation. Allowing for the absence of IV contrast, no acute abnormality is appreciated. Please note that all CT scans at this facility use dose modulation, iterative reconstruction, and/or weight-based dosing when appropriate to reduce radiation dose to as low as reasonably achievable. Dictated by Michael Ang MD @ 11/26/2024 3:08:52 AM (Electronically Signed)
[2024-11-26] MEDS: ACETAMINOPHEN 500 MG TABLET 1000 MG PO (02:55)
[2024-11-26] MEDS: 0.9 % SODIUM CHLORIDE 1000 ml 1,000 ML IV ×2 (03:22→04:44)
[2024-11-26 03:27] LABS: Troponin, Point-of-Care* 0.01 ng/ml (0.01-0.04)
[2024-11-26 03:42] LABS: Basophils Percent Auto 0.1 % (0.0-3.0); Eosinophils Percent Auto 1.6 % (0.0-7.0); Hematocrit 37.9 % (37.0-53.0); Hemoglobin* 12.4 gm/dL (13.5-17.5); Immature Granulocytes Pct Auto 1.4 %; Lymphocytes Percent Auto 1.9 % (20-44); Mean Corpuscular HGB Conc 33 gm/dL (32-36); Mean Corpuscular Hemoglobin 29 pg (26-34); Mean Corpuscular Volume 88 fL (80-100); Monocytes Percent Auto 3.1 % (0.0-11.0); Neutrophils Percent Auto 91.9 % (42.0-72.0); Platelet Count* 179 K/uL (140-440); RDW Coefficient of Variation % 12.6 % (11.5-15.5); Red Blood Count 4.29 m/uL (4.30-5.90)
[2024-11-26 03:43] LABS: Slide Review Reflex No
[2024-11-26 03:58] LABS: Lactate* 1.5 mmol/L (0.5-1.9)
[2024-11-26 04:02] LABS: Chloride* 102 mmol/L (96-114); Potassium* 3.5 mmol/L (3.6-5.1); Sodium* 136 mmol/L (135-149)
[2024-11-26 04:05] LABS: Anion Gap 7 mEq/L (7-15); Blood Urea Nitrogen* 16 mg/dL (7-30); Calcium* 8.9 mg/dL (8.4-10.6); Carbon Dioxide* 27 mmol/L (20-32); Est. Creatinine Clearance* 71.25; Estimated Glomerular Filt Rate 84 ml/min; Glucose* 137 mg/dL (60-115)
[2024-11-26 04:06] LABS: PCR FLU A Negative PCR FLU A (Negative); PCR FLU B Negative PCR FLU B (Negative); SARS PCR* Negative SARS-CoV-2 (Negative)
[2024-11-26] MEDS: cefTRIAXone 2 GM in 0.9 % SODIUM CHLORIDE Mini-bag 100 ML IVPB (04:44)
[2024-11-26 04:46] LABS: Appearance Urine Turbid (Clear); Bilirubin Urine Negative (Negative); Blood Urine 2+ (Negative); Color Urine Light yellow (Yellow); Glucose Urine Negative (Negative); Ketones Urine Negative (Negative); Leukocyte Esterase Urine 3+ (Negative); Nitrite Urine Negative (Negative); Protein Urine 1+ (Negative); Specific Gravity Urine 1.015 (1.000-1.030); Urobilinogen Urine 0.2 (0.2-1.0); pH Urine 6.5 (5.0-8.5)
[2024-11-26 04:57] LABS: Bacteria Urine Many; Squamous Epithelial Cell Urine Few (None-Few); WBC Clumps Urine Many; WBC Urine >100 (0-5)
[2024-11-26 04:58] LABS: Amorphous Sediment Urine Many
[2024-11-26 05:02] LABS: Other Sediment Urine Many
[2024-11-26 05:45] LABS: D Dimer Quantitative* 0.35 ug/ml (0.00-0.50)
[2024-11-26] MEDS: HEPARIN 500 UNIT/5 ML SYRINGE IVF (06:06)
== END 2024-11-26 06:19 | disposition home or self-care (01) ==
PROVIDERS: Emergency Provider Emergency Medicine; PCP Family Medicine
DX: A41.9 Sepsis, unspecified organism (principal); N39.0 Urinary tract infection, site not specified; R06.02 Shortness of breath; R07.9 Chest pain, unspecified; C67.9 Malignant neoplasm of bladder, unspecified
CPT/HCPCS: 36415; 71046; 74176; 80048; 81001; 83605; 84484; 85025; 85379; 87040; 87086; 87631; 93005; 96365; 99284; 99285; A9270; J0696; J1642; J7030

== ENCOUNTER 2025-01-30 23:14 | Emergency (ER) | payer MEDICARE, OTHER, SELFPAY ==
--- OUTSIDE RECORDS SUMMARY | 2025-01-03 13:00 | XMS_ITS | Encounter Summary ---
Author Organization [facility] Address [address] [place] [address] Care Team Providers Care Technical Manager Name Role Phone Alvaro Clark MD Unavailable Bhavin Gardner Primary Care Provider [phone] Dylan Guerin Unavailable [phone] Elsy Mims MD Unavailable [phone] Reason for Visit * Reason Comments Port Draw Encounter Details Date Type Department Care Team (Late st Contact Info) Description 01/03/2025 1:00 PM CDT Infusion Therapy Visit [facility] [address] [place] [phone] [place] [address] [place] [address] Malignant neoplasm of anterior wall of urinary bladder (H) (Primary Dx); Urothelial cancer (H); Prostate cancer (H) Social History Tobacco Use [...] on file 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 Patient seen by provider today: Yes: Dylan Guerin PA-C Echocardiographer present during visit today: Not Applicable. Note: N/A. Intravenous Access: Labs drawn without difficulty. Implanted Port. Discharge Plan: Patient was sent to [facility] for provider appointment. Bessy Crowe RN documented in this encounter Plan of Treatment Upcoming Encounters Date Type Department Care Team (Late st Contact Info) Description 01/31/2025 12:30 PM CDT Infusion Therapy Visit [facility] [address] [place] [phone] [place] [id number] [place], [place] [phone] 01/31/2025 2:40 PM CDT Appointment [facility] [address] [place] [phone] Yessica Mcleod PA-C [address] [place], [place] [address] [place] [address] 02/03/2025 10:30 AM CDT Oncology Visit [place] [address] [address] [place] [phone] Ky Torres MD [address] [facility] [address] [place], [place] [address] documented as of this encounter Procedures Procedure Name Priority Date/Time Associated Diagnosis Comments CBC WITH PLATELETS AND DIFFERENTIAL Routine 01/03/2025 12:52 PM CDT Malignant neoplasm of anterior wall of urinary bladder (H) FISH BLADDER CANCER Routine 01/03/2025 1 2:52 PM CDT Urothelial cancer (H) Prostate cancer (H) NON-GYNECOLOGIC CYTOLOGY Routine 01/03/2025 12:52 PM CDT Urothelial cancer (H) Prostate cancer (H) CBC WITH PLATELETS & DIFFERENTIAL Routine 01/03/2025 12:52 PM CDT Malignant neoplasm of anterior wall of urinary bladder (H) TSH WITH FREE T4 REFLEX Routine 01/03/2025 12:52 PM CDT Malignant neoplasm of anterior wall of urinary bladder (H) COMPREHENSIVE METABOLIC PANEL Routine 01/03/2025 12:52 PM CDT Malignant neoplasm of anterior wall of urinary bladder (H) documented in this encounter Results * FISH bladder cancer (01/03/2025 12:52 PM CDT) Final Diagnosis Specimen A Interpretation: Unsatisfactory specimen for UroVysion testing Adequacy: Unsatisfactory for evaluation. Insufficient cellularity for UroVysion FISH analysis. Mostly inflammation is noted. 01/09/2025 12:36 PM CDT SPECIALTY LABS at 1236 CDT Gross Description A(A). Urine, Voided, :A. Urine, Voided, , FISH UroVysion: Received 80 ml of cloudy, yellow fluid, split and processed as 1 Pap stained Autocyte and 1 slide made for Urovysion FISH. 01/09/2025 12:36 PM CDT [facility] Microscopic Description Less than 25 non-inflammator y cells are identified. The specimen submitted is insufficient for UroVysion FISH probe set analysis. METHODS: It is recommended that the test be repeated if clinically indicated. Billing will be credited for UroVysion FISH Test. 01/09/2025 12:36 PM CDT [facility] Performing Labs The technical component of this testing was completed at [facility]. Stain controls for all stains resulted within this report have been reviewed and show appropriate reactivity. 01/09/2025 12:36 PM CDT [facility] LAB[facility] Urine VOIDED URINE SPECIMEN / Unknown Non-blood Collection / Unknown 01/03/2025 12:52 PM CDT 01/04/2025 7:51 AM CDT Ky RIVER - MARYCARMEN SPEARS Final Resu lt [facility] [address] [facility], [address] [place] [phone] * (ABNORMAL) CBC with platelets and differential (01/03/2025 12:52 PM CDT) WBC Count 6.7 4.0 - 11.0 10e3/uL 01/03/2025 1:02 PM CDT [facility] RBC Count 4.43 4.40 - 5.90 10e6/uL 01/03/2025 1:02 PM CDT [facility] Hemoglobin 13.0(L) 13.3 - 17.7 g/dL 01/03/2025 1:02 PM CDT [facility] Hematocrit 38.9(L) 40.0 - 53.0 % 01/03/2025 1:02 PM CDT [facility] MCV 88 78 - 100 fL 01/03/2025 1:02 PM CDT [facility] MCH 29.3 26.5 - 33.0 pg 01/03/2025 1:02 PM CDT [facility] MCHC 33.4 31.5 - 36.5 g/dL 01/03/2025 1:02 PM CDT [facility] RDW 12.6 10.0 - 15.0 % 01/03/2025 1:02 PM CDT [facility] Platelet Count 220 150 - 450 10e3/uL 01/03/2025 1:02 PM CDT [facility] % Neutrophils 64 % 01/03/2025 1:02 PM CDT [facility] % Lymphocytes 16 % 01/03/2025 1:02 PM CDT [facility] % Monocytes 10 % 01/03/2025 1:02 PM CDT [facility] % Eosinophils 9 % 01/03/2025 1:02 PM CDT [facility] % Basophils 1 % 01/03/2025 1:02 PM CDT [facility] % Immature Granulocytes 1 % 01/03/2025 1:02 PM CDT [facility] NRBCs per 100 WBC 0 <1 /100 025 1:02 PM CDT [facility] Absolute Neutrophils 4.3 1.6 - 8.3 10e3/uL 01/03/2025 1:02 PM CDT [facility] Absolute Lymphocytes 1.1 0.8 - 5.3 10e3/uL 01/03/2025 1:02 PM CDT [facility] Absolute Monocytes 0.7 0.0 - 1.3 10e3/uL 01/03/2025 1:02 PM CDT [facility] Absolute Eosinophils 0.6 0.0 - 0.7 10e3/uL 01/03/2025 1:02 PM CDT [facility] Absolute Basophils 0.1 0.0 - 0.2 10e3/uL 01/03/2025 1:02 PM CDT [facility] Absolute Immature Granulocytes 0.1 <=0.4 10e3/uL 01/03/2025 1:02 PM CDT [facility] Absolute NRBCs 0.0 10e3/uL 01/03/2025 1:02 PM CDT [facility] Blood (Portacath) IVAD (Port) / Unknown 01/03/2025 12:52 PM CDT 01/03/2025 12:58 PM CDT Dylan IBARRA LAB - BLOOD ORDERABLES Fin al Result RH LAB[facility]AT[facility] [address] Lab (1st floor, no room number) [place] [address], [facility] * Cytology, non-gynecologic (01/03/2025 12:52 PM CDT) Final Diagnosis Specimen A. Urine for cytology: Interpretation : Negative for High Grade Urothelial Carcinoma Adequacy: Satisfactory for evaluation 01/04/2025 5:42 PM CDT LABORATORY at 1742 CDT Gross Description A(A). Urine, Voided, :A. Urine, Voided, , Urine Cytology: Received 80 ml of cloudy, yellow fluid, split and processed as 1 Pap stained Autocyte and 1 slide made for Urovysion FISH. 01/04/2025 5:42 PM CDT [facility] Microscopic Description Microscopic examination is performed with findings supportive of the diagnosis as noted. 01/04/2025 5:42 PM CDT LABORATORY Performing Labs The technical component of this testing was completed at [facility]. Stain controls for all stains resulted within this report have been reviewed and show appropriate reactivity. 01/04/2025 5:42 PM CDT [facility] Urine VOIDED URINE SPECIMEN / Unknown Non-blood Collection / Unknown 01/03/2025 12:52 PM CDT 01/03/2025 2:55 AM CDT us Ky Torres MD LAB - BEAKER AP Final Resu lt LABORATORY [facility] [address] 1st floor, [address] [place] [address], [facility] [phone] SPECIALTY LABS Specialty Lab [address] [facility], [address] [phone] * TSH with free T4 reflex (01/03/2025 12:52 PM CDT) TSH 2.93 0.30 - 4.20 uIU/mL 01/03/2025 1:35 PM CDT LABORATORY Blood (Portacath) IVAD (Port) / Unknown 01/03/2025 12:52 PM CDT 01/03/2025 12:57 PM CDT us Dylan IBARRA LAB - BLOOD ORDERABLES Fin al Result LABORATORY [facility] [address] [facility] Lab (1st floor, no room number) [place] [address], [facility] * Comprehensive metabolic panel (01/03/2025 12:52 PM CDT) Sodium 139 135 - 145 mmol/L 01/03/2025 1:35 PM CDT [facility] Potassium 4.0 3.4 - 5.3 mmol/L 01/03/2025 1:35 PM CDT [facility] Carbon Dioxide (CO2) 27 22 - 29 mmol/L 01/03/2025 1:35 PM CDT [facility] Anion Gap 12 7 - 15 mmol/L 01/03/2025 1:35 PM CDT [facility] Urea Nitrogen 20.6 8.0 - 23.0 mg/dL 01/03/2025 1:35 PM CDT [facility] Creatinine 1.07 0.67 - 1.17 mg/dL 01/03/2025 1:35 PM CDT [facility] GFR Estimate 77 >60 mL/min/1.7 3m2 01/03/2025 1:35 PM CDT [facility] Comment:eGFR calculated usin 2020 CKD-EPI equation. Calcium 9.1 8.8 - 10.4 mg/dL 01/03/2025 1:35 PM CDT [facility] Chloride 100 98 - 107 mmol/L 01/03/2025 1:35 PM CDT [facility] Glucose 91 70 - 99 mg/dL 01/03/2025 1:35 PM CDT [facility] Alkaline Phosphatase 64 40 - 150 U/L 01/03/2025 1:35 PM CDT [facility] AST 28 0 - 45 U/L 01/03/2025 1:35 PM CDT [facility] ALT 15 0 - 70 U/L 01/03/2025 1:35 PM CDT [facility] Protein Total 6.6 6.4 - 8.3 g/dL 01/03/2025 1:35 PM CDT [facility] Albumin 4.1 3.5 - 5.2 g/dL 01/03/2025 1:35 PM CDT [facility] Bilirubin Total 0.3 <=1.2 mg/dL 01/03/2025 1:35 PM CDT [facility] Blood (Portacath) IVAD (Port) / Unknown 01/03/2025 12:52 PM CDT 01/03/2025 12:57 PM CDT us Dylan IBARRA LAB - BLOOD ORDERABLES Fin al Result [facility] Lab [address] Lab (1st floor, no room number) [place] [address], [facility] documented in this encounter Visit Diagnoses Diagnosis Malignant neoplasm of anterior wall of urinary bladder (H)- Primary Malignant neoplasm of anterior wall of urinary bladder Urothelial cancer (H) Malignant neoplasm of other specified sites of urinary organs Prostate cancer (H) Malignant neoplasm of prostate documented in this encounter Care Teams Technical Manager Relationship Specialty Start Date End Date Votel, Bhavin Ford [address] [place] [address] PCP - General Family Medicine 12/28/23 Alvaro Clark MD [address] [place] [address] Assigned Surgical Provider 07/24/23 [place] [address] [place] [address] [address] Assigned Cancer Care Provider 06/23/24 Elsy Mims MD [address] [place] [id number] Physician Infectious Diseases 12/09/24 documented as of this encounter
--- OUTSIDE RECORDS SUMMARY | 2025-01-03 13:00 | XMS_ITS | Encounter Summary ---
Author Organization [facility] Address [address] [place] [address] Care Team Providers Care Affiliate Manager Name Role Phone Alvaro Clark MD Unavailable Bhavin Gardner Primary Care Provider [phone] Dylan Guerin Unavailable [phone] Elsy Mims MD Unavailable [phone] Reason for Visit * Reason Comments Port Draw Encounter Details Date Type Department Care Team (Late st Contact Info) Description 01/03/2025 1:00 PM CDT Infusion Therapy Visit [facility] [address] [place] [address] [place] [phone] [place] [address] [address] [place] [address] Malignant neoplasm of anterior wall [...] on file 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 Note: N/A. Intravenous Access: Labs drawn without difficulty. Implanted Port. Discharge Plan: Patient was sent to [facility] for provider appointment. Bessy Crowe RN documented in this encounter Plan of Treatment Upcoming Encounters Date Type Department Care Team (Late st Contact Info) Description 01/31/2025 12:30 PM CDT Infusion Therapy Visit [facility] [address] [place] [phone] [place] [address] [place], [place] [address] 01/31/2025 2:40 PM CDT Appointment [facility] [address] [place] [address] [place] [phone] Yessica Mcleod PA-C [address] [place], [place] [address] [place] [address] 02/03/2025 10:30 AM CDT Oncology Visit [place] [address] [address] [place] [phone] Ky Torres MD [address] [facility] [address] [place], [place] [address] documented as of this encounter Procedures Procedure [...] component of this testing was completed at [facility]. Stain controls for all stains resulted within this report have been reviewed and show appropriate reactivity. 01/09/2025 12:36 PM CDT [facility] LABS Urine VOIDED URINE SPECIMEN / Unknown Non-blood Collection / Unknown 01/03/2025 12:52 PM CDT 01/04/2025 7:51 AM CDT Ky RIVER - MARYCARMEN SPEARS Final Resu lt [facility] LAB[facility] [address] [facility], Room [address] [place] [phone] * (ABNORMAL) CBC with platelets and [...] BLOOD ORDERABLES Fin al Result RH LABORATORY [facility] Lab [address] Lab (1st floor, no room number) [place] [address], [facility] [[email or web address] * Cytology, non-gynecologic (01/03/2025 12:52 PM CDT) [...] component of this testing was completed at [facility]. Stain controls for all stains resulted within this report have been reviewed and show appropriate reactivity. 01/04/2025 5:42 PM CDT [facility] LAB[facility] Urine VOIDED URINE SPECIMEN / Unknown Non-blood Collection / Unknown 01/03/2025 12:52 PM CDT 01/03/2025 2:55 AM CDT us Ky Torres MD LAB - BEAKER AP Final Resu lt LABORATORY [facility] Lab [address] 1st floor, Room [address] [place] [address], [facility] [[email or web address]] [phone] SPECIALTY LAB[facility] Specialty Lab [address] [facility], [address] [phone] * TSH with free T4 reflex (01/03/2025 12:52 PM CDT) TSH 2.93 0.30 - 4.20 uIU/mL 01/03/2025 1:35 PM CDT LABORATORY Blood (Portacath) IVAD (Port) / Unknown 01/03/2025 12:52 PM CDT 01/03/2025 12:57 PM CDT us Dylan IBARRA LAB - BLOOD ORDERABLES Fin al Result LABORATORY [facility] Lab [address] [facility] Lab (1st floor, no room number) [place] [address], [facility] [[email or web address]] * Comprehensive metabolic panel (01/03/2025 12:52 PM [...] LAB - BLOOD ORDERABLES Fin al Result [facility] Lab [address] Lab (1st floor, no room number) [place] [address], [facility] [[email or web address] documented in this encounter Visit Diagnoses Diagnosis Malignant neoplasm of anterior wall of urinary bladder (H)- Primary Malignant neoplasm of anterior wall of urinary bladder Urothelial cancer (H) Malignant neoplasm of other specified sites of urinary organs Prostate cancer (H) Malignant neoplasm of prostate documented in this encounter Care Teams Affiliate Manager Relationship Specialty Start Date End Date Votel, Bhavin Ford [address] [place] [address] PCP - General Family Medicine 12/28/23 Alvaro Clark MD [address] [place] [address] Assigned Surgical Provider 07/24/23 [place] [address] [place] [address] [address] Assigned Cancer Care Provider 06/23/24 Elsy Mims MD [address] [place] [place] [id number] Physician Infectious Diseases 12/09/24 documented as of this encounter
--- OUTSIDE RECORDS SUMMARY | 2025-01-03 13:30 | XMS_ITS | Encounter Summary ---
Author Organization [facility] Address [address] [place] [address] Care Team Providers Care Over Hauler Helper Name Role Phone Alvaro Clark MD Unavailable Bhavin Gardner Primary Care Provider [phone] Dylan Guerin Unavailable [phone] Elsy Mims MD Unavailable [phone] Reason for Visit * Reason Comments RECHECK Encounter Details Date Type Department Care Team (Late st Contact Info) Description 01/03/2025 1:30 PM CDT Virtual Visit [facility] [address] [address]BS [address] [facility] [place] [phone] [place] [address] Allison Jacobs 200 [place] [address] Prostate cancer (H) (Primary Dx) Social History Tobacco [...] on file 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 Location): Other clinic Distant Location (provider location): Off-site Telephone visit completed due to the patient did not have access to video, while the distant provider did. 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 He had urinary urgency andfrequency for the previous few weeks. He was noted to have urinary retention and blood in urine without any infection. He had a CT scan done in ED which showed decompressed bladder with parry and wasotherwise unremarkable. He then was seen by Carolina Arrieta in urology at [facility] and referred for cystoscopy. He had cystoscopy [...] Monitor PSA for incidental prostate cancer. He continues to have frequent UTI symptoms, difficulty urinating and also recently was prescribed antibiotics with prednisone for bronchitis and difficulty breathing. CT chest without PE or pneumonitis. He is here today for nivolumab. Interval History: Oleg is overall doing well. Still has trouble with urine flow at times- using catheter. Occasionaldiscomfort and mucus. No fevers or kidney pain. ID on . No skin concerns. No breathing concerns. Review of Systems: Patient denies fevers, chills, night sweats, unexplained weight changes, headaches, dizziness, vision or hearing changes, new lumps or bumps, chest pain, shortness of breath, cough, abdominal pain, nausea, vomiting, changes to bowel or bladder, swelling of extremities, bleeding issues, or rash. Current Outpatient Medications Medication Sig Dispense Refill [...] daily. To itchy areas. 60 mL 2 Past Medical History Past Medical History: Diagnosis [...] quittin.6 Passive exposure: Past Smokeless tobacco: Never Vaping Use Vaping status: Never Used Substance Use Topics Alcohol use: Never Drug use: Never Past medical history and social history were reviewed. Physical Examination: There were no vitals taken for this visit. Wt Readings from Last 10 Encounters: 12/06/24 81.1 kg (178 lb 12.8 oz) 11/30/24 81.9 kg (180 lb 8 oz) 11/04/24 83.5 kg (184 lb) 10/05/24 83.5 kg (184 lb) 09/09/24 83.9 kg (185 lb) 08/12/24 84.1 kg (185 lb 8 oz) 08/04/24 83.9 kg (185 lb) 07/15/24 84 kg (185 lb 1.6 oz) 06/17/24 82.3 kg (181 lb 8 oz) 05/27/24 82.6 kg (182 lb) Unable to do physical exam 07/03 telephone visit. Well sounding in no distress. Normal speech and thought process. Good voice quality. No audible wheezing or cough. Laboratory Data: Latest Reference Range & Units 01/03/25 12:52 Sodium 135 - 145 mmol/L 139 Potassium 3.4 - 5.3 mmol/L 4.0 Chloride 98 - 107 mmol/L 100 Carbon Dioxide (CO2) 22 - 29 mmol/L 27 Urea Nitrogen 8.0 - 23.0 mg/dL 20.6 Creatinine 0.67 - 1.17 mg/dL 1.07 GFR Estimate >60 mL/min/1.73m2 77 Calcium 8.8 - 10.4 mg/dL 9.1 Anion Gap 7 - 15 mmol/L 12 Albumin 3.5 - 5.2 g/dL 4.1 Protein Total 6.4 - 8.3 g/dL 6.6 Alkaline Phosphatase 40 - 150 U/L 64 ALT 0 - 70 U/L 15 AST 0 - 45 U/L 28 Bilirubin Total <=1.2 mg/dL 0.3 Glucose 70 - 99 mg/dL 91 Latest Reference Range & Units 01/03/25 12:52 TSH 0.30 - 4.20 uIU/mL 2.93 Latest Reference Range & Units 01/03/25 12:52 WBC 4.0 - 11.0 10e3/uL 6.7 Hemoglobin 13.3 - 17.7 g/dL 13.0 (L) Hematocrit 40.0 - 53.0 % 38.9 (L) Platelet Count 150 - 450 10e3/uL 220 RBC Count 4.40 - 5.90 10e6/uL 4.43 MCV 78 - 100 fL 88 MCH 26.5 - 33.0 pg 29.3 MCHC 31.5 - 36.5 g/dL 33.4 RDW 10.0 - 15.0 % 12.6 % Neutrophils % 64 % Lymphocytes % 16 % Monocytes % 10 % Eosinophils % 9 % Basophils % 1 % Immature Granulocytes % 1 NRBC/W <1 /100 0 Absolute Neutrophil 1.6 - 8.3 10e3/uL 4.3 Absolute Lymphocytes 0.8 - 5.3 10e3/uL 1.1 Absolute Monocytes 0.0 - 1.3 10e3/uL 0.7 Absolute Eosinophils 0.0 - 0.7 10e3/uL 0.6 Absolute Basophils 0.0 - 0.2 10e3/uL 0.1 Absolute Immature Granulocytes <=0.4 10e3/uL 0.1 (L): Data is abnormally low Assessment and Plan: # Muscle Invasive Urothelial Cancer S/p post neoadjuvant ddMVAC and cystoprostatectomy with neobladder [id number] disease *prostate stromainvolvement. Residual disease on pathology despite aggressive neoadjuvant chemotherapy. - Recommend adjuvant Nivolumab x 1 year. Started 02/11/24 - Tolerating treatment well with no signs or symptoms of immunotoxicity. Prior respiratory symptomsresolved - Continue with nivolumab today -Continue nivolumab every 4 weeks, will finish in Jan 2025 -Urine FISH previously negative, repeat negative again on 11/30/2024. Pending today - Plan for CT in January 2025, then follow-up with Dr Torres # Asthma/Emphysema Has hx asthma/emphysema and is on nebulizer/inhaler for this. Completed course of abx/prednisone November 2024 - No ongoing concerns # Prostate Cancer Incidental on pathology from cystoprostatectomy, [place] 3+ 4. - Will monitor PSA. Baseline 0.02 - Repeat today pending # Recurrent UTI Post Surgery Has completed multiple abx courses, has had multiple ED visits. Most recently with urosepsis in ED 11/26/24. Reviewed ED/UC records -Recently completed cefdinir with improvement of symptoms - Urology following, now doing daily catheter. Have discussed with urology multiple times, not recommending a prophylactic antibiotic at this time. - ID seeing this week # Anemia Last chemotherapy October 2023 - Iron studies concerning for DUKE with iron sat low at 7%. Repeat iron studies WNL - Received Venofer x 3 Jan- Apr 2024 , hgb stable - Patient has never had a colonoscopy. Note wall thickening on prior imaging. - B12 and iron levels WNL. Monitor - Will plan to encourage colonoscopy after completion of treatment 10 minutes spent on the date of the encounter doing chart review, review of test results, interpretation of tests, patient visit, and documentation Dylan Guerin PA-C Department of Hematology and Oncology [facility] documented in this encounter Nursing Notes * Viky Betancur - 01/03/2025 1:30 PM CDT Current patient location: [place] Is the patient currently in the state of [place]? YES Visit mode: TELEPHONE If the visit is dropped, the patient can be reconnected by:TELEPHONE VISIT: Phone number: Telephone Information: Will anyone else be joining the visit? NO (If patient encounters technical issues they should call [phone]) Are changes needed to the allergy or medication list? No Are refills needed on medications prescribed by this physician? NO Rooming Documentation: Questionnaire(s) not done per department protocol Reason for visit: RECHLEV Viky Hopkinsmansi VVF documented in this encounter Plan of Treatment Upcoming Encounters Date Type Department Care Team (Late st Contact Info) Description 01/31/2025 12:30 PM CDT Infusion Therapy Visit [address]ACOBS 200 [place] [phone] Dylan Guerin [place] [id number] [place] [address] [address] [place], [place] [address] 01/31/2025 2:40 PM CDT Appointment [facility] [address] [place] [phone] Yessica Mcleod, PAJose Luis [id number] [place] [address] [address]OBS [address] [place] [address] 02/03/2025 10:30 AM CDT Oncology Visit [address] JACOBS 200 [place] [phone] Ky Torres MD [address] [place] [address] 480 [place], [place] [address] documented as of this encounter Procedures Procedure Name Priority Date/Time Associated Diagnosis Comments PSA TUMOR MARKER Add-On 01/03/2025 12:5 2 PM CDT Prostate cancer (H) documented in this encounter Results * PSA, tumor marker (01/03/2025 12:52 PM CDT) PSA Tumor Marker 0.02 0.00 - 4.50 ng/mL 01/03/2025 5:34 PM CDT [facility] Blood (Portacath) IVAD (Port) / Unknown 01/03/2025 12:52 PM CDT 01/03/2025 12:57 PM CDT Narrative [facility] - 01/03/2025 5:34 PM CDT This result is obtained using [...] equal to 0.03 ng/mL. (1) 1. Dennys HSU, Len Z, Rigo GUO, et al. Do ultrasensitive prostate specific antigen measurements have a role in predicting long-term biochemical recurrence-free survival in men after radical prostatectomy? J Urol. 2016;195(2):330-336. doi:10.1016/j.juro.2015.08.080 Dylan [facility] - BLOOD ORDERABLES Fin al Result [facility] [place] [facility] [address] [facility] [address] Building, Room 3-580 [place] [address] documented in this encounter Visit Diagnoses Diagnosis Prostate cancer (H)- Primary Malignant neoplasm of prostate documented in this encounter Care Teams Over Hauler Helper Relationship Specialty Start Date End Date Votel, Bhavin Ford [address] [place] [address] PCP - General Family Medicine 12/28/23 Alvaro Clark MD [address] [place] [address] [id number] Assigned Surgical Provider 07/24/23 [place] [address] [place] [address] [address] Assigned Cancer Care Provider 06/23/24 Elsy Mims MD [address] [place] [address] 578345 Physician Infectious Diseases 12/09/24 documented as of this encounter
--- OUTSIDE RECORDS SUMMARY | 2025-01-03 13:30 | XMS_ITS | Encounter Summary ---
Author Organization [facility] Address [address] [place] [address] Care Team Providers Care Lathe Turner Name Role Phone Alvaro Clark MD Unavailable Bhavin Gardner Primary Care Provider [phone] Dylan Guerin Unavailable [phone] Elsy Mims MD Unavailable [phone] Reason for Visit * Reason Comments RECHECK Encounter Details Date Type Department Care Team (Late st Contact Info) Description 01/03/2025 1:30 PM CDT Virtual Visit [facility] [address] [address] 200 [facility] [place] [phone] [place] [address] [address] 200 [place] [address] Prostate cancer (H) (Primary Dx) [...] on file 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 He had urinary urgency andfrequency for the previous few weeks. He was noted to have urinary retention and blood in urine without any infection. He had a CT scan done in ED which showed decompressed bladder with parry and wasotherwise unremarkable. He then was seen by Carolina Arrieta in urology at [facility] and referred for cystoscopy. He had [...] post neoadjuvant ddMVAC and cystoprostatectomy with neobladder [id number] disease *prostate stromainvolvement. Residual disease on pathology [...] Prostate Cancer Incidental on pathology from cystoprostatectomy, [place] 3+ 4. - Will monitor PSA. Baseline [...] Guerin PA-C Department of Hematology and Oncology [facility] documented in this encounter Nursing Notes * Viky Betancur - 01/03/2025 1:30 PM CDT Current patient location: [place] Is the patient currently in the state of [place]? YES Visit mode: TELEPHONE If the visit is dropped, the patient can be reconnected by:TELEPHONE VISIT: Phone number: Telephone Information: Will anyone else be joining the visit? NO (If patient encounters technical issues they should call [phone] :[phone]) Are changes needed to the allergy or medication list? No Are refills needed on medications prescribed by this physician? NO Rooming Documentation: Questionnaire(s) not done per department protocol Reason for visit: RECHLEV Viky Hopkinsmansi VVF documented in this encounter Plan of Treatment Upcoming Encounters Date Type Department Care Team (Late st Contact Info) Description 01/31/2025 12:30 PM CDT Infusion Therapy Visit [address] JACOBS 200 [place] [phone] [place] Guerin [place] [phone] [place] [address] Dr Jacobs [address] [place], [place] [address] 01/31/2025 2:40 PM CDT Appointment [facility] [address] [place] [address] [place] [phone] Yessica Mcleod, PAJose Luis [phone] [place] [address] [address] JACOBS 200 [place] [address] 02/03/2025 10:30 AM CDT Oncology Visit [address] JACOBS 200 [place] [phone] Ky Torres MD [address] [place] [address] 480 [place], [place] 5056[address] documented as of this encounter Procedures Procedure [...] BLOOD ORDERABLES Fin al Result [facility] [place] [facility] [address] [facility] [address] Building, Room 3-580 [place] [address] documented in this encounter Visit Diagnoses Diagnosis Prostate cancer (H)- Primary Malignant neoplasm of prostate documented in this encounter Care Teams Lathe Turner Relationship Specialty Start Date End Date Votel, Bhavin Ford [address] [place] [address] PCP - General Family Medicine 12/28/23 Alvaro Clark MD [address] [place] [address] [id number] Assigned Surgical Provider 07/24/23 [place] [address] [facility] [address] [address] Assigned Cancer Care Provider 06/23/24 Elsy Mims MD [address] [place] [address] [id number] Physician Infectious Diseases 12/09/24 documented as of this encounter
--- OUTSIDE RECORDS SUMMARY | 2025-01-03 14:30 | XMS_ITS | Encounter Summary ---
Author Organization [facility] Address [address] [place] [address] Care Team Providers Care Pipeline Construction Inspector Name Role Phone Alvaro Clark MD Unavailable Bhavin Gardner Primary Care Provider [phone] Dylan Guerin Unavailable [phone] Elsy Mims MD Unavailable [phone] Reason for Visit * Reason Comments Chemotherapy C12D1 Opdivo. * Treatment and Therapy Plans (Routine) - Authorized Specialty Diagnoses / Procedures Referred By Contac t Referred To Contact Infusion Therapy Diagnoses Malignant neoplasm of anterior wall of urinary bladder (H) Procedures ZZC INJECTION, NIVOLUMAB 1MG Ky Torres MD [address] [facility] 480 [place] [address] Phone: tel: fax: [place] [address] [address] [place] [address] Phone: tel: fax: Referral ID Status Reason Start Date Expiration Date V isits Requested Visits Authorized [id number] Authorized 01/15/2024 05/31/2025 99 99 Encounter Details Date Type Department Care Team (Late st Contact Info) Description 01/03/2025 2:30 PM CDT Infusion Therapy Visit [place] [address] [address] [place] [address] [place] [address] Jacobs Gabriela [place], [place] [phone] Malignant neoplasm of anterior wall of urinary [...] on file 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 Gender Identity Not on file Sexual Orientation Not on file 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 Patient seen by provider today: Yes: Virtual visit with Dylan Guerin PA-C Roentgenology Teacher present during visit today: Not Applicable. Note: N/A. Intravenous Access: Implanted Port accessed by FT RN. Treatment Conditions: Lab Results Component Value Date HGB 13.0 (L) 01/03/2025 WBC 6.7 01/03/2025 ANEU 4.3 01/03/2025 PLT 220 01/03/2025 Lab Results Component Value Date NA 139 01/03/2025 POTASSIUM 4.0 01/03/2025 MAG 2.0 12/28/2023 CR 1.07 01/03/2025 JUANY 9.1 01/03/2025 BILITOTAL 0.3 01/03/2025 ALBUMIN 4.1 01/03/2025 ALT 15 01/03/2025 AST 28 01/03/2025 Results reviewed, labs MET treatment parameters, ok to proceed with treatment. TSH 2.93 Post Infusion Assessment: Patient tolerated infusion without incident. Blood return noted pre and post infusion. Site patent and intact, free from redness, edema or discomfort. No evidence of extravasations. Access discontinued per protocol. Discharge Plan: Discharge instructions reviewed with: Patient. Patient and/or family verbalized understanding of discharge instructions and all questions answered. AVS to patient via [employer]. Patient will return 01/31 for next appointment. Patient discharged in stable condition accompanied by: self. Departure Mode: Ambulatory. Alexander Rangel RN documented in this encounter Plan of Treatment Upcoming Encounters Date Type Department Care Team (Late st Contact Info) Description 01/31/2025 12:30 PM CDT Infusion Therapy Visit [address]OBS [address] [place] [phone] [place] [address] [place] [address] 01/31/2025 2:40 PM CDT Appointment [facility] Imaging [address] [place] [address] [place] [phone] Yessica Mcleod, PAJannetC [phone] [place] [address] [address] JACOBS 200 [place] [address] 02/03/2025 10:30 AM CDT Oncology Visit [address] JACOBS [address] [place] [phone] Ky Torres MD [address] [facility] 480 [place], [place] 2650[address] documented as of this encounter Visit Diagnoses [...] port or lock each lumen, Starting on Thu01/03/25 at 1448, PORT: to de-access, instill 5 mL before PORT needle is removed and every 28 days. Apheresis: only for use when patient is NOT under care of apheresis services; after a 10 mL NS flush, lock each lumen of the catheter with 5 mL.Indications:Malignant neoplasm of anterior wall of urinary bladder (H) $Given 01/03/2025 3:45 PM CDT 5 mLs nivolumab (OPDIVO) 480 mg in sodium chloride 0.9 % 158 mL infusion 480 mg, Intravenous, ONCE, On Thu01/03/25 at 1500, For 1 dose, Administer over 30 Minutes, Administer through 0.2-1.2 micron low protein binding filter. May require hepatic and/or renal dose or frequency adjustments. See reference link for guidelines.Indications:Maligna nt neoplasm of anterior wall of urinary bladder (H) $New Bag 01/03/2025 3:03 PM CDT 480 mg 316 mL/hr sodium chloride (PF) 0.9% PF flush 3-20 mL 3-20 mL, Intracatheter, EVERY 1 MIN PRN, line flush, post meds or blood draw, Starting on Thu01/03/25 at 1448, PIV: 3 mL after each use & [...] anterior wall of urinary bladder (H) $Given 01/03/2025 3:45 PM CDT 20 mLs sodium chloride 0.9% BOLUS 250 mL Intravenous, 250 mL, ONCE, On Thu01/03/25 at 1500, For 1 dose, Concomitant fluids.Indications:Malignant neoplasm of anterior wall of urinary bladder (H) $New Bag 01/03/2025 2:56 PM CDT 100 mLs documented in this encounter Care Teams Pipeline Construction Inspector Relationship Specialty Start Date End Date Votel, Bhavin Ford [address] [place] [address] PCP - General Family Medicine 12/28/23 Alvaro Clark MD [address] [place] [address] [id number] Assigned Surgical Provider 07/24/23 [place] [address] [facility] [address] [address] Assigned Cancer Care Provider 06/23/24 Elsy Mims MD [address] [place], [place] 8[address] Physician Infectious Diseases 12/09/24 documented as of this encounter
--- OUTSIDE RECORDS SUMMARY | 2025-01-03 14:30 | XMS_ITS | Encounter Summary ---
Author Organization [facility] Address [address] [place] [address] Care Team Providers Care Tap And Die Maker Technician Name Role Phone Alvaro Clark MD Unavailable Bhavin Gardner Primary Care Provider [phone] Dylan Guerin Unavailable [phone] Elsy Mims MD Unavailable [phone] Reason for Visit * Reason Comments Chemotherapy C12D1 Opdivo. * Treatment and Therapy Plans (Routine) - Authorized Specialty Diagnoses / Procedures Referred By Contac t Referred To Contact Infusion Therapy Diagnoses Malignant neoplasm of anterior wall of urinary bladder (H) Procedures ZZC INJECTION, NIVOLUMAB 1MG Ky Torres MD [address] [facility] 480 [place] [address] Phone: tel: fax: [place] [address] [address]BS [address] [place] [address] Phone: tel: fax: Referral ID Status Reason Start Date Expiration Date V isits Requested Visits Authorized [id number] Authorized 01/15/2024 05/31/2025 99 99 Encounter Details Date Type Department Care Team (Late st Contact Info) Description 01/03/2025 2:30 PM CDT Infusion Therapy Visit [place] [address] [address] [place] [address] [place] [address] Jacobs Gabriela [place], [place] [address] Malignant neoplasm of anterior wall of urinary [...] on file 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 Note: [...] all questions answered. AVS to patient via [employer]. Patient will return 01/31 for next appointment. Patient discharged in stable condition accompanied by: self. Departure Mode: Ambulatory. Alexander Rangel RN documented in this encounter Plan of Treatment Upcoming Encounters Date Type Department Care Team (Late st Contact Info) Description 01/31/2025 12:30 PM CDT Infusion Therapy Visit [address]ACOBS [address] [place] [phone] [place] [address] [place] [address] 01/31/2025 2:40 PM CDT Appointment [facility] Imaging [address] [place] [address] [place] [phone] Yessica Mcleod, PAJannetC [phone] [place] [address] [address] JACOBS 200 [place] [address] 02/03/2025 10:30 AM CDT Oncology Visit [address]ACOBS [address] [place] [phone] Ky Torres MD [address] [facility] 480 [place], [place] [address] documented as of this encounter Visit Diagnoses [...] mLs documented in this encounter Care Teams Tap And Die Maker Technician Relationship Specialty Start Date End Date Votel, Bhavin Ford 1400 [place] [address] PCP - General Family Medicine 12/28/23 Alvaro Clark MD [address] [place] [address] [id number] Assigned Surgical Provider 07/24/23 [place] [address] [place] [address] [address] Assigned Cancer Care Provider 06/23/24 Elsy Mims MD 500 [place], [place] 9[address]235 Physician Infectious Diseases 12/09/24 documented as of this encounter
--- OUTSIDE RECORDS SUMMARY | 2025-01-05 10:00 | XMS_ITS | Encounter Summary ---
Author Organization [place] Address [address] [facility] [place] [address] Care Team Providers Care Glass Tinter Name Role Phone Alvaro Clark MD Unavailable Bhavin Gardner Primary Care Provider [phone] Dylan Guerin Unavailable [phone] Elsy Mims MD Unavailable [phone] Reason for Visit * Reason Comments Consult * Consultation (Priority: 1-2 Weeks) - Pending Review Specialty Diagnoses / Procedures Referred By Virgil t Referred To Contact Infectious Diseases Diagnoses Urothelial cancer (H) Recurrent UTI Complicated UTI (urinary tract infection) [place] [address] [address] [place] [address] Phone: tel: fax: Referral ID Status Reason Start Date Expiration Date V isits Requested Visits Authorized [id number] Pending Review 11/30/2024 11/30/2025 1 1 Encounter Details Date Type Department Care Team ([facility] st Contact Info) Description 01/05/2025 10:00 AM CDT Office Visit 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 [facility] General Infectious Disease/HIV Clinic Note: New Patient Patient: Oleg Richard, Date of 1960 Date of Visit: 01/05/2025 Consult requested by STACEY Yusuf for evaluation of recurrent UTIs. Assessment Increased mucous, cloudy urine, improves with antibiotic therapy Intermittent catheterization Stage IIIA urothelial cancer from bladder S/p TURBT 2023 S/p cystoprostatectomy with neobladder creation (2023) Currently treated with nivolumab Presence of port Emphysema, former smoker Reported penicillin allergy (nausea/vomiting) Oelg Richard is a pleasant 64 year old gentleman with a past medical history of urothelial cancer from bladder, Stage IIIA, s/p TURBT 2023, s/p neoadjuvant chemotherapy and cystoprostatectomy with neobladder creation (2023), currently on nivolumab, emphysema, who presents to ID clinic for evaluationof recurrent UTIs. Mr. Richard has had issues with increased mucous production, likely 2/2 urinary stasis ever since hissurgery. He reports thick, mucous-y urine that is cloudy when he catheterizes, worst in the morning. He has also in the past had urine cultures and imaging consistent with an upper urinary tract infection (CT imaging in 10/2024 and 11/2024, prior isolation of E coli in the urine). He reports that hisurine becomes more clear with antibiotic administration, but that the cloudiness returns when he stops. While he is certainly at risk for complex cystitis and upper urinary tract infections with his altered anatomy and recurrent catheterization, it is not clear that he is truly having recurrent cy stitis. We dicussed today that the symptoms of cysitis are increased frequency of urination (which could be difficult to tell in him, sometimes this manifests as increased bladder spasms in patients with urinary retention), pain/burning with urination, and suprapubic pain - he has not consistently had these symptoms. He is most bothered by the character and consistency of his urine, which is not necessarily a symptom of a UTI. He could certainly have bacterial overgrowth with urinary stasis (notes more changes after waking up in the morning and not catheterizing overnight), but as it is not an invasive infection, I do not recommend treatment. Treatment with antibiotics will be ineffective, as evidenced by rapid recurrence of change in urine character after he stops them, can increase the risk of side effects, and will pressure for increasingly resistant organisms. I do not recommend antibiotic prophylaxis. We discussed various strategies to decrease the frequency of UTIs and to try to improve symptoms such as increasing hydration, increasing the frequency of catheterization and urination, and a trial of methenamine hippurate. This may help decrease bacterial bioburden in the urine, and is not an antibiotic that organisms develop resistance to. He was amenable to this today, and we will try it, along with vitamin C to acidify the urine. With the above being said, he is also at risk for complex UTIs with his altered anatomy. Counseled extensively today on s/s urinary tract infections, including complications, for which he should dropoff a urine sample and/or seek care more urgently (especially with fever, flank pain, and systemic symptoms). Standing order placed for urinalysis with reflex to culture. Recommendations Start PO methenamine 1g BID + PO vitamin C Stay hydrated Increase CIC frequency Drop off urine sample for any s/s UTI - dysuria, increased frequency/spasms, suprapubic pain, fevers, chills Standing order for UA w/ reflex to culture placed Recommend against urine culture or antibiotic treatment for increased mucous in urine or cloudy urine Recommend re-establishing with Urology for additional management recommendations RTC: 3 months or PRN I spent a total of 60 minutes on the day of the visit. Time spent by me today doing chart review, history and exam, documentation and further activities per the note Elsy Mims MD Pager [phone] Infectious Diseases History of the Infectious Disease lllness: CC: Recurrent UTIs HPI: Oleg Richard is a pleasant 64 year old gentleman with a past medical history of urothelial cancer from bladder, Stage IIIA, s/p TURBT 2023, s/p neoadjuvant chemotherapy and cystoprostatectomy with neobladder creation (2023), currently on nivolumab, emphysema, who presents to ID clinic for evaluation of recurrent UTIs. Mr. Richard underwent the above procedures for his urothelial bladder cancer. After his cystoprostatectomy, he initially had a parry catheter in place for several months. After this was removed, he hashad to intermittently catheterize himself. He notes that he thought this would be a short term solution, but has lasted longer than he expected. He catheterizes 2-3 times per day. He notes he tries to catheterize before he goes to bed, and when he first wakes up in the morning. In the am especially, he sometimes notes thick mucous and viscous urine that is hard to catheterize. He also notes it issometimes difficult to urinate when this occurs. He is able to urinate on his one somewhat, but not consistently. He has never had blood in the urine or trauma with catheterization. He drinks a lot of water and tries to stay hydrated. He does not drink coffee, tea, or alcohol. Due to the thick and mucous-y urine, he has contacted providers before and obtained UAs with urine cultures. He has done this in our system and at [facility], and I do not have access to all of theserecords today. In 04/2024 he had an E coli grow, and every other culture we have is mixed morphotypes or Staphylococcus epidermidis. He has gotten intermittent antibiotic courses for these organisms,or empirically, and notes that the urine clears up with antibiotics, but the change recurs as soon has he stops them. He denies fevers, chills, night sweats, weight loss, suprapubic pain, flank pain, or increased frequency of urination. 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 Does not drink alcohol, previously smoked. Relevant Microbiology: 01/15/24 Urine culture: Multiple morphotypes, no predominant organism 04/04/2024 Urine culture: >100,000 CFU E coli 09/09/24 Urine culture: >100,000 CFU Staphylococcus epidermidis Susceptibility Staphylococcus epidermidis (1) Staphylococcus epidermidis (2) DISK DIFFUSION SUSCEPTIBILITY DAGMAR DISK DIFFUSION SUSCEPTIBILITY DAGMAR Cefoxitin Screen Susceptible * Susceptible * Ciprofloxacin 4 ug/mL Resistant <=0.5 ug/mL Susceptible Clindamycin 0.25 ug/mL Susceptible * 0.25 ug/mL Susceptible * Daptomycin 0.5 ug/mL Susceptible 0.25 ug/mL Susceptible Doxycycline 1 ug/mL Susceptible <=0.5 ug/mL Susceptible Erythromycin <=0.25 ug/mL Susceptible * <=0.25 ug/mL Susceptible * Gentamicin <=0.5 ug/mL Susceptible <=0.5 ug/mL Susceptible Inducible macrolide resistance test Negative ug/mL Negative * Negative ug/mL Negative * Levofloxacin 4 ug/mL Resistant <=0.12 ug/mL Susceptible Linezolid 1 ug/mL Susceptible * 1 ug/mL Susceptible * Moxifloxacin 1 ug/mL Intermediate * <=0.25 ug/mL Susceptible * Nitrofurantoin <=16 ug/mL Susceptible <=16 ug/mL Susceptible Oxacillin <=0.25 ug/mL Susceptible 1 <=0.25 ug/mL Susceptible 1 Rifampin <=0.5 ug/mL Susceptible * <=0.5 ug/mL Susceptible * Tetracycline 2 ug/mL Susceptible <=1 ug/mL Susceptible Tigecycline <=0.12 ug/mL No interpretation available * <=0.12 ug/mL No interpretation available * Trimethoprim/Sulfamethoxazole Resistant Susceptible Vancomycin 2 ug/mL Susceptible <=0.5 ug/mL Susceptible 11/10/24 Urine culture: 50,000 - 100,000 CFU Staphylococcus epidermidis Susceptibility Staphylococcus epidermidis DISK DIFFUSION SUSCEPTIBILITY DAGMAR Cefoxitin Screen Susceptible * Ciprofloxacin <=0.5 ug/mL Susceptible Clindamycin 0.25 ug/mL Susceptible * Daptomycin 0.25 ug/mL Susceptible Doxycycline <=0.5 ug/mL Susceptible Erythromycin <=0.25 ug/mL Susceptible * Gentamicin <=0.5 ug/mL Susceptible Inducible macrolide resistance test Negative ug/mL Negative * Levofloxacin <=0.12 ug/mL Susceptible Linezolid 1 ug/mL Susceptible * Moxifloxacin <=0.25 ug/mL Susceptible * Nitrofurantoin <=16 ug/mL Susceptible Oxacillin <=0.25 ug/mL Susceptible 1 Rifampin <=0.5 ug/mL Susceptible * Tetracycline <=1 ug/mL Susceptible Tigecycline <=0.12 ug/mL No interpretation available * Trimethoprim/Sulfamethoxazole Susceptible Vancomycin 1 ug/mL Susceptible 11/25/24 Urine culture: no growth Recent Antimicrobials: None currently Recent courses of cephalexin, macrobid, cefdinir, azithromycin Review of Systems: The remainder of a complete ROS was negative, except as noted in HPI. Past Medical History: Diagnosis Date Lesion of [...] Surgeon: Alvaro Clark MD; Location: [facility] OR Family History Problem Relation Age of Onset No Known Problems Mother Bladder Cancer Father Anesthesia Reaction No family hx of Thrombosis No family hx of Patient Active Problem List Diagnosis Lesion of bladder Urothelial cancer (H) Bladder cancer (H) Small bowel obstruction (H) Iron deficiency anemia due to chronic blood loss Current Outpatient Medications Medication Sig Dispense Refill [...] Take 1 tablet by mouth as needed (Patient not taking: Reported on 01/03/2025) polyethylene glycol (MIRALAX) 17 GM/Dose powder Take 17 g by mouth daily (Patient not taking: Reported on 01/03/2025) 510 g 0 senna-docusate (SENOKOT-S/PERICOLACE) 8.6-50 MG tablet Take 1 tablet by mouth 2 times daily (Patient not taking: Reported on 01/03/2025) 40 tablet 0 triamcinolone (KENALOG) 0.1 % external lotion Apply topically 3 times daily. To itchy areas. (Patient not taking: Reported on 01/03/2025) 60 mL 2 No current facility-administered medications for this visit. Facility-Administered Medications Ordered in Other Visits Medication Dose Route Frequency Provider Last Rate Last Admin heparin lock flush 100 unit/mL injection 500 Units 500 Units Intracatheter Q8H Dylan Guerin PA 500 Units at 11/30/24 1604 sodium chloride (PF) 0.9% PF flush 10 mL 10 mL Intracatheter Q8H Dylan Guerin PA 10 mL at 11/30/24 1604 Allergies Allergen Reactions Penicillins Nausea and Vomiting Physical Exam: BP 107/63 (BP Location: Left arm, Patient Position: Sitting, Cuff Size: Adult Regular) Pulse 109 Wt 81.2 kg (179 lb) SpO2 93% BMI 28.04 kg/m?? Wt Readings from Last 4 Encounters: 01/03/25 81.6 kg (180 lb) 12/06/24 81.1 kg (178 lb 12.8 oz) 11/30/24 81.9 kg (180 lb 8 oz) 11/04/24 83.5 kg (184 lb) Exam: GENERAL: well-developed, well-nourished, alert, oriented, in no acute distress. HEAD: Head is normocephalic, atraumatic EYES: Eyes have anicteric sclerae. ENT: Oropharynx is moist NECK: Supple. Chest: Port in R upper chest. LUNGS: Normal WOB on RA. SKIN: No acute rashes. NEUROLOGIC: Grossly nonfocal. Laboratory Data: Metabolic Studies Recent Labs Lab Test 01/03/25 1252 12/06/24 0813 11/30/24 1203 12/29/23 0728 12/28/23 1153 12/27/23 0737 12/26/23 2300 NA 139 139 140 < > 134* < > -- POTASSIUM 4.0 4.4 4.0 < > 4.0 < > -- CHLORIDE 100 102 104 < > 99 < > -- CO2 27 26 24 < > 28 < > -- ANIONGAP 12 11 12 < > 7 < > -- BUN 20.6 25.9* 19.2 < > 11.8 < > -- CR 1.07 1.09 1.03 < > 0.76 < > -- 29644 -- -- -- -- -- -- 0.9 GFRESTIMATED 77 75 81 < > >90 < > -- GLC 91 102* 97 < > 118* < > -- JUANY 9.1 9.3 9.0 < > 8.0* < > -- PHOS -- -- -- -- 2.8 -- -- MAG -- -- -- -- 2.0 -- -- < > = values in this interval not displayed. Hepatic Studies Recent Labs Lab Test 01/03/25 1252 12/06/24 0813 11/30/24 1203 08/12/24 1343 07/15/24 1213 06/17/24 0942 BILITOTAL 0.3 0.3 0.3 < > 0.2 0.3 ALKPHOS 64 60 55 < > 73 74 PROTTOTAL 6.6 6.3* 6.5 < > 6.9 6.9 ALBUMIN 4.1 4.0 3.8 < > 4.0 3.9 AST 28 22 24 < > 29 25 ALT 15 19 18 < > 18 18 LDH -- -- -- -- 188 165 < > = values in this interval not displayed. Hematology Studies Recent Labs Lab Test 01/03/25 1252 12/06/24 0813 11/30/24 1203 11/04/24 0955 WBC 6.7 12.0* 7.4 7.6 ANEU 4.3 9.7* 4.7 4.7 ALYM 1.1 0.8 1.1 1.2 KENROY 0.7 0.4 0.6 0.8 AEOS 0.6 0.7 0.9* 0.9* HGB 13.0* 13.2* 12.4* 12.6* HCT 38.9* 40.7 37.2* 38.3* PLT 220 278 243 235 Urine Studies Recent Labs Lab Test 11/25/24 1333 11/10/24 0955 09/09/24 1501 06/18/23 1258 URINEPH 6.5 6.0 6.0 6.0 NITRITE Negative Negative Negative Negative LEUKEST Moderate* Moderate* Large* Trace* WBCU 32* 107* >182* 59* Imaging: Results for orders placed or performed during the hospital encounter of 11/30/24 CT Chest Pulmonary Embolism w Contrast Narrative EXAM: CT CHEST PULMONARY EMBOLISM W CONTRAST LOCATION: [facility] DATE: 11/30/2024 INDICATION: Elevated D-dimer, SOB, cancer patient, r/o PE. COMPARISON: CT 11/04/2024. TECHNIQUE: CT chest pulmonary angiogram during arterial phase injection of IV contrast. Multiplanarreformats and MIP reconstructions were performed. Dose reduction techniques were used. CONTRAST: 73 mL Isovue 370. FINDINGS: ANGIOGRAM CHEST: Pulmonary arteries are normal caliber and negative for pulmonary emboli. Thoracic aorta is negative for dissection. No CT evidence of right heart strain. LUNGS AND PLEURA: No effusions. No acute airspace disease identified. Emphysematous changes. Stable3 mm nodule right upper lobe posteriorly series 7 image 106. Bilateral peribronchial wall thickening noted appearing mildly increased at the lower lungs. MEDIASTINUM/AXILLAE: No acute mediastinal abnormality. Mediastinal lymph nodes are small. Borderline prominent bilateral hilar lymph nodes measuring 10 mm on the right and 9 mm on the left. CORONARY ARTERY CALCIFICATION: Mild. UPPER ABDOMEN: Hepatic cysts. No acute upper abdominal abnormality. MUSCULOSKELETAL: No aggressive appearing bone lesion identified. Impression IMPRESSION: 1. No evidence for pulmonary embolism. 2. Increased peribronchial wall thickening. Correlate with a bronchitis. 3. Stable borderline prominent hilar lymph nodes. 4. Stable small pulmonary nodule. Recommendations for one or multiple incidental lung nodules < 6mm: Low-Risk Patient: No routine follow-up. High-Risk Patient: Optional follow-up CT at 12 months; if unchanged, no further follow-up. *Low Risk: Minimal or absent history of smoking or other known risk factors. *Nonsolid (ground-glass) or partly solid nodules may require longer follow-up to exclude indolent adenocarcinoma. 1. *Recommendations based on Guidelines for the Management of Incidental Pulmonary Nodules Detectedat CT: From the Fleischner Society 2017, Radiology 2017. documented in this encounter Nursing Notes * Padmaja Hinton CMA - 01/05/2025 10:00 AM CDT Chief Complaint Patient presents with Consult BP 107/63 (BP Location: Left arm, Patient Position: Sitting, Cuff Size: Adult Regular) Pulse 109 Wt 81.2 kg (179 lb) SpO2 93% BMI 28.04 kg/m?? documented in this encounter Plan of Treatment Upcoming Encounters Date Type Department Care Team (Late st Contact Info) Description 01/31/2025 12:30 PM CDT Infusion Therapy Visit [facility] [address] [place] [address] [address] [place] [phone] [place] [address] [place], [place] [address] 01/31/2025 2:40 PM CDT Appointment [facility] Imaging [address] [place] [phone] eYssica Mcleod PA-C [address] [place], [place] [address] 02/03/2025 10:30 AM CDT Oncology Visit [facility] [address] [facility] [place] [address] Ky Torres MD [address] [facility] [address] [place], [place] [address] Scheduled Orders Name Type Priority Associated Diagnoses Orde r Schedule UA with Microscopic reflex to Culture Lab Routine Recurrent UTI 3 Occurrences starting 01/05/2025 until 01/05/2026 documented as of this encounter Visit Diagnoses Diagnosis Recurrent UTI- Primary Urinary tract infection, site not specified Urothelial cancer (H) Malignant neoplasm of other specified sites of urinary organs Complicated UTI (urinary tract infection) Urinary tract infection, site not specified Pyelonephritis Pyelonephritis, unspecified documented in this encounter Care Teams Glass Tinter Relationship Specialty Start Date End Date DaoteBhavin ferrara [address] [place] [id number] PCP - General Family Medicine 12/28/23 Alvaro Clark MD [address] [facility] [address] [place], [place] [address] Assigned Surgical Provider 07/24/23 [place] [address] [place] [address] Assigned Cancer Care Provider 06/23/24 Elsy Mims MD [address] [place] [id number] Physician Infectious Diseases 12/09/24 documented as of this encounter
--- OUTSIDE RECORDS SUMMARY | 2025-01-05 10:00 | XMS_ITS | Encounter Summary ---
Author Organization [place] Address [address] [place] [address] Care Team Providers Care Parking Lot Attendant And Cashier Name Role Phone Alvaro Clark MD Unavailable Bhavin Gardner Primary Care Provider [phone] Dylan Guerin Unavailable [phone] Elsy Mims MD Unavailable [phone] Reason for Visit * Reason Comments Consult * Consultation (Priority: 1-2 Weeks) - Pending Review Specialty Diagnoses / Procedures Referred By Virgil t Referred To Contact Infectious Diseases Diagnoses Urothelial cancer (H) Recurrent UTI Complicated UTI (urinary tract infection) [place] [address] [address] [place] [address] Phone: tel: fax: Referral ID Status Reason Start Date Expiration Date V isits Requested Visits Authorized [id number] Pending Review 11/30/2024 11/30/2025 1 1 Encounter Details Date Type Department Care Team ([facility] st Contact Info) Description 01/05/2025 10:00 AM CDT Office Visit [facility] Infectious Disease [address] [place] [address] [address] [place] [address] [place] [address] [address] [place] [address] Elsy Mims MD [address] [place] [address] Recurrent UTI (Primary Dx); Urothelial cancer (H); [...] on file 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 Does not drink alcohol, previously smoked. Relevant [...] 1.03 < > 0.76 < > -- [id number] -- -- -- -- -- -- 0.9 [...] CT CHEST PULMONARY EMBOLISM W CONTRAST LOCATION: [facility] DATE: 11/30/2024 INDICATION: Elevated D-dimer, SOB, cancer [...] 01/31/2025 12:30 PM CDT Infusion Therapy Visit [facility] [address] [place] [address] [address] [place] [phone] [place] [address] [place] [address] [place], [place] [phone] 01/31/2025 2:40 PM CDT Appointment [facility] Imaging [address] [place] [address] [place] [phone] Yessica Mcleod PA-C [address] [place], [place] [phone] 02/03/2025 10:30 AM CDT Oncology Visit [facility] [address] [place] [address] [facility] [place] [place] [address] Ky Torres MD [address] [facility] [address] [place], [place] [phone] Scheduled Orders Name Type Priority Associated Diagnoses [...] unspecified documented in this encounter Care Teams Parking Lot Attendant And Cashier Relationship Specialty Start Date End Date DaoteBhavin ferrara [address] [place] [id number] PCP - General Family Medicine 12/28/23 Alvaro Clark MD [address] [facility] [address] [place], [place] [address] Assigned Surgical Provider 07/24/23 [place] [address] [place] [address] [place] [address] Assigned Cancer Care Provider 06/23/24 Elsy Mims MD [address] [place] [address] Physician Infectious Diseases 12/09/24 documented as of this encounter
--- OUTSIDE RECORDS SUMMARY | 2025-01-30 23:15 | XMS_ITS | Encounter Summary ---
Author Organization [facility] Address [address] [place] [address] Care Team Providers Care Operating Room Assistant Name Role Phone Alvaro Clark MD Unavailable Bhavin Gardner Primary Care Provider [phone] Dylan Guerin Unavailable [phone] Elsy Mims MD Unavailable [phone] Elsy Mims MD Unavailable [phone] Encounter Details Date Type Department Care Team (Late st Contact Info) Description 10/07/[address] 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 file documented as of this encounter Plan of Treatment Upcoming Encounters Date Type Department Care Team (Late st Contact Info) Description 01/31/2025 12:30 PM CDT Infusion Therapy Visit [facility] [address] [place] [address] DR JACOBS 200 [place] [address] [place] [address] [place] [address] Dr Jacobs 200 [place], [place] [address] 01/31/2025 2:40 PM CDT Appointment [facility] Imaging [address] [place] [phone] Yessica Mcleod PA-C [address] [place] [address] DR JACOBS 200 [place], [place] [address] 02/03/2025 10:30 AM CDT Oncology Visit [address] JACOBS 200 [place] [address] Ky Torres MD 420 [facility] 480 [place], [place] 4[address]45 documented as of this encounter Visit Diagnoses Not on filedocumented in this encounter Care Teams Operating Room Assistant Relationship Specialty Start Date End Date Votel, Bhavin Ford [facility] [place] [address] PCP - General Family Medicine 12/28/23 Alvaro Clark MD 420 [facility] 394 [place], [place] 8[address]95 Assigned Surgical Provider 07/24/23 Dylan Guerin PA [address] [place] [address] Dr Jacobs 200 [place] [address] Assigned Cancer Care Provider 06/23/24 Elsy Mims MD 500 [place] [address] Physician Infectious Diseases 12/09/24 Elsy Mims MD 500 [place] [address] Assigned Infectious Disease Provider 01/21/25 documented as of this encounter
--- OUTSIDE RECORDS SUMMARY | 2025-01-30 23:15 | XMS_ITS | Encounter Summary ---
Author Organization [facility] Address [address] [place] [address] Care Team Providers Care Reuse Technician Name Role Phone Alvaro Clark MD Unavailable System, Provider Not In Primary Care Provider Un available Sixto Whalen APRN CHANGE MANAGEMENT ADMINISTRATOR Unavailable [phone] No Ref-Primary, Physician Primary Care Provider Yessica Mcleod PA-C Unavailable Bhavin Gardner Primary Care Provider [phone] MelissaKy magallon MD Unavailable Dylan Guerin Unavailable Ky Torres MD Unavailable Dylan Guerin Unavailable Elsy Mims MD Unavailable Elsy Mims MD Unavailable Encounter Details Date Type Department Care Team (Late st Contact Info) Description 12/01/2023 [facility] [address] DAISY 200 [facility] [place] [phone] Sabra Wilcox Social History Tobacco Use Types [...] on file 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 Gender Identity Not on file Sexual Orientation Not on file 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 file documented as of this encounter Plan of Treatment Upcoming Encounters Date Type Department Care Team (Late st Contact Info) Description 01/31/2025 12:30 PM CDT Infusion Therapy Visit [facility] [address] [place] [address] DR JACOBS 200 [place] [address] [place] [address] [place], [place] [address] 01/31/2025 2:40 PM CDT Appointment [facility] Imaging [address] [place] [address] Yessica Mcleod, PAJose Luis [address] JACOBS 200 [place], [place] [address] 02/03/2025 10:30 AM CDT Oncology Visit [address] JACOBS 200 [facility] [place] [phone] Ky Torres MD 420 [facility] 480 [place] [address] documented as of this encounter Visit Diagnoses Not on filedocumented in this encounter Care Teams Reuse Technician Relationship Specialty Start Date End Date System, Provider Not In PCP - General Clinic 08/13/23 12/21/23 No Ref-Primary, Physician PCP - General 12/22/23 12/27/23 Bhavin Gardner 1400 [place] [address] PCP - General Family Medicine 12/28/23 Alvaro Clark MD 420 [facility] 394 [place] [address] Assigned Surgical Provider 07/24/23 Sixto Whalen APRN CNP [address] [place] [address] Assigned Cancer Care Provider 10/22/23 12/21/23 Yessica Mcleod PA-C [address] [facility] [address] JACOBS 200 [place] [address] Assigned Cancer Care Provider 12/22/23 01/21/24 Ky Torres MD 420 [facility] 480 [place] [address] Assigned Cancer Care Provider 01/22/24 04/22/24 [place] [address] Jacobs [address] [place] [address] Assigned Cancer Care Provider 04/23/24 05/22/24 Ky Torres MD 420 [facility] 480 [place] [address] Assigned Cancer Care Provider 05/23/24 06/22/24 [place] [address] 200 [place] [address] Assigned Cancer Care Provider 06/23/24 Elsy Mims MD 500 [place] [address] Physician Infectious Diseases 12/09/24 Elsy Mims MD 500 [place] [address] Assigned Infectious Disease Provider 01/21/25 documented as of this encounter
--- OUTSIDE RECORDS SUMMARY | 2025-01-30 23:15 | XMS_ITS | Encounter Summary ---
Author Organization [facility] Address [address] [place] [address] Care Team Providers Care Work Ticket Distributor Name Role Phone Alvaro Clark MD Unavailable Bhavin Gardner Primary Care Provider [phone] Dylan Guerin Unavailable [phone] Elsy Mims MD Unavailable [phone] Encounter Details Date Type Department Care Team (Late st Contact Info) Description 11/10/2024 Results Follow-Up [facility] Services - Cancer Care Service Line [address] [place] [address] Yessica Mcleod, PA-C [address] [place] [address] 200 [place] [address] Social History Tobacco Use Types Packs/Day Years [...] on file 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 [address] [place] [address] DR JACOBS 200 [place] [address] [place] [address] [place] [address] 01/31/2025 2:40 PM CDT Appointment [facility] Imaging [address] [place] [address] Yessica Mcleod, RONALD [address] JACOBS 200 [place] [address] 02/03/2025 10:30 AM CDT Oncology Visit [address] JACOBS 200 [facility] [place] [phone] Ky Torres MD 420 [facility] 480 [place], [place] [address] documented as of this encounter Visit Diagnoses Not on filedocumented in this encounter Care Teams Work Ticket Distributor Relationship Specialty Start Date End Date DaoteBhavin ferrara 1400 [place] [address] PCP - General Family Medicine 12/28/23 Alvaro Clark MD 420 [facility] 394 [place], [place] 5[address] Assigned Surgical Provider 07/24/23 [place] [address] [place] [address] Dr Jacobs 200 [place] [address] Assigned Cancer Care Provider 06/23/24 Elsy Mims MD 500 [place], [place] 28[address] Physician Infectious Diseases 12/09/24 documented as of this encounter
--- OUTSIDE RECORDS SUMMARY | 2025-01-30 23:15 | XMS_ITS | Clinical Summary ---
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 Not on file Obstetrics History Last Filed Vital Signs Vital Sign Reading Time Taken Comments Blood Pressure 114/65 12/19/2022 2:41 PM CDT Pulse 98 12/19/2022 2:41 PM CDT Temperature 36.1 C (97 F) 07/18/2019 11:30 AM DEPARTMENT STORE MANAGER Respiratory Rate 18 12/19/2022 2:41 PM CDT [...] ( - 2023- season) 2024 Influenza Vaccine (#1) 2025 Tetanus booster 02/28/2029 02/28/2019, 09/0 01/2013, 11/14/2006 RSV vaccine for adults or (1 - 1-dose 75+ series) 2034 Hepatitis B series for 19+ Aged Out N o longer eligible based on patient's age to complete this topic Insurance [facility] * Guarantor: OLEG RICHEY Account Type Relation to Patient Date of Phone Billing Address Workers Comp [id number] [address] [id number] WORKERS COMP WC [employer] BILL PROCESSING PREFERRED ONE PREFERRED ONE Care Teams E Commerce Project Manager Relationship Specialty Start Date End Date Pcp, No . PCP - General 08/07/10
--- OUTSIDE RECORDS SUMMARY | 2025-01-30 23:16 | XMS_ITS | Encounter Summary ---
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 file documented as of this encounter Plan of Treatment Upcoming Encounters Date Type Department Care Team (Late st Contact Info) Description 01/31/2025 12:30 PM CDT Infusion Therapy Visit [facility] [address] [address]OBS 200 [place] [address] [place] [address] [address] Jacobs 200 [place] [address] 01/31/2025 2:40 PM CDT Appointment [facility] Imaging [address] [place] [phone] Yessica Mcleod PA-C [address] JACOBS 200 [place] [address] 02/03/2025 10:30 AM CDT Oncology Visit [facility] [address] JACOBS 200 [facility] [place] [address] Ky Torres MD [address] 2966[address] documented as of this encounter Visit Diagnoses Not on filedocumented in this encounter Care Teams Electric Serviceman Relationship Specialty Start Date End Date VotelBhavin 1400 [place] [address] PCP - General Family Medicine 12/28/23 Alvaro Clark MD [address] [place] [address]995 Assigned Surgical Provider 07/24/23 Dylan Guerin PA [address] [place] [address] Dr Jacobs 200 [place] [address] Assigned Cancer Care Provider 06/23/24 Elsy Mims MD [address] [place] [address] Physician Infectious Diseases 12/09/24 documented as of this encounter
--- OUTSIDE RECORDS SUMMARY | 2025-01-30 23:16 | XMS_ITS | Encounter Summary ---
Author Organization [facility] Address [address] [place] [address]491 Care Team Providers Care Psychiatric Nursing Assistant Name Role Phone Alvaro Clark MD Unavailable System, Provider Not In Primary Care Provider Un available Sixto Whalen APRN LEAD PROGRAMMER Unavailable [phone] No Ref-Primary, Physician Primary Care Provider Yessica Mcleod PA-C Unavailable Bhavin Gardner Primary Care Provider MelissaKy magallon MD Unavailable Dylan Guerin Unavailable Ky Torres MD Unavailable Dylan Guerin Unavailable Elsy Mims MD Unavailable [phone] Elsy Mims MD Unavailable Encounter Details Date Type Department Care Team (Late st Contact Info) Description 11/17/2023 [facility] [place] [address], DAISY 610 [facility] [phone] Sixto Whalen APRN LEAD PROGRAMMER 909 [place], [place] 2675[address] Social History Tobacco Use Types Packs/Day Years [...] on file 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 Gender Identity Not on file Sexual Orientation Not on file 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 file documented as of this encounter Plan of Treatment Upcoming Encounters Date Type Department Care Team (Late st Contact Info) Description 01/31/2025 12:30 PM CDT Infusion Therapy Visit [facility] [address] JACOBS 200 [place] [address] [place] [address] 200 [place], [place] [address] 01/31/2025 2:40 PM CDT Appointment [facility] Imaging [address] [place] [phone] Yessica Mcleod PA-C [address] JACOBS 200 [place] [address] 02/03/2025 10:30 AM CDT Oncology Visit [address] JACOBS 200 [facility] [place] [address] Ky Torres MD 420 [facility] 480 [place] [address] documented as of this encounter Visit Diagnoses Not on filedocumented in this encounter Care Teams Psychiatric Nursing Assistant Relationship Specialty Start Date End Date System, Provider Not In PCP - General Clinic 08/13/23 12/21/23 No Ref-Primary, Physician PCP - General 12/22/23 12/27/23 Bhavin Gardner [address] [place] [address] PCP - General Family Medicine 12/28/23 Alvaro Clark MD 420 [facility] 394 [place], [place] 948395 Assigned Surgical Provider 07/24/23 Sixto Whalen APRN CNP [address] [place] [address]94355 Assigned Cancer Care Provider 10/22/23 12/21/23 Yessica Mcleod PA-C [address] [place] [address] Assigned Cancer Care Provider 12/22/23 01/21/24 Ky Torres MD [address] [address] Assigned Cancer Care Provider 01/22/24 04/22/24 [place] [address] [address] Jacobs 200 [place] [address] Assigned Cancer Care Provider 04/23/24 05/22/24 Ky Torres MD [address] [address] Assigned Cancer Care Provider 05/23/24 06/22/24 [place] [address] [address] [place] [address] Assigned Cancer Care Provider 06/23/24 Elsy Mims MD 500 [place] [address] Physician Infectious Diseases 12/09/24 Elsy Mims MD 500 [place] [address] Assigned Infectious Disease Provider 01/21/25 documented as of this encounter
--- OUTSIDE RECORDS SUMMARY | 2025-01-30 23:16 | XMS_ITS | Encounter Summary ---
Author Organization [facility] Address [address] [place] [address] Care Team Providers Care Knit Goods Cutter Hand Name Role Phone Alvaro Clark MD Unavailable System, Provider Not In Primary Care Provider Un available Ky Torres MD Unavailable [phone] Sixto Whalen APRN SIMULATION TECH Unavailable [phone] No Ref-Primary, Physician Primary Care Provider Yessica Mcleod PA-C Unavailable Bhavin Gardner Primary Care Provider Ky Torres MD Unavailable [phone] Dylan Guerin Unavailable Ky Torres MD Unavailable [phone] Dylan Guerin Unavailable Elsy Mims MD Unavailable [phone] Elsy Mims MD Unavailable Encounter Details Date Type Department Care Team (Late st Contact Info) Description 09/28/2023 [facility] [address] JACOBS 200 [facility] [place] [address] hCarlie Almonte, RN Urothelial cancer (H) (Primary Dx) [...] on file 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 Gender Identity Not on file Sexual Orientation Not on file 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 file documented as of this encounter Plan of Treatment Upcoming Encounters Date Type Department Care Team (Late st Contact Info) Description 01/31/2025 12:30 PM CDT Infusion Therapy Visit [facility] [address] JACOBS 200 [place] [phone] [place] [address] [place] [address] Jacobs 200 [place] [address] 01/31/2025 2:40 PM CDT Appointment [facility] Imaging [address] [place] [phone] Yessica Mcleod PA-C [address]ACOBS 200 [place] [address] 02/03/2025 10:30 AM CDT Oncology Visit [address] JACOBS 200 [facility] [place] [place] [address] Ky Torres MD 420 [facility] 480 [place] [address] documented as of this encounter Visit Diagnoses Diagnosis Urothelial cancer (H)- Primary Malignant neoplasm of other specified sites of urinary organs documented in this encounter Care Teams Knit Goods Cutter Hand Relationship Specialty Start Date End Date System, Provider Not In PCP - General Clinic 08/13/23 12/21/23 No Ref-Primary, Physician PCP - General 12/22/23 12/27/23 Bhavin Gardner [address] [place] [address] PCP - General Family Medicine 12/28/23 Alvaro Clark MD [address] [place] [address] 394 [place] [address] Assigned Surgical Provider 07/24/23 Ky Torres MD [address] [place] [address] Assigned Cancer Care Provider 09/22/23 10/21/23 Sixto Whalen APRN CNP [address] [place] [address] Assigned Cancer Care Provider 10/22/23 12/21/23 Yessica Mcleod PA-C [address]ACOBS [address] [place] [address] Assigned Cancer Care Provider 12/22/23 01/21/24 Ky Torres MD [address] [place] [address] Assigned Cancer Care Provider 01/22/24 04/22/24 [place] [address] [place] [address] Jacobs [address] [place] [address] Assigned Cancer Care Provider 04/23/24 05/22/24 Ky Torres MD [address] [place] [address] 480 [place] [address] Assigned Cancer Care Provider 05/23/24 06/22/24 [place] [address] [place] [address] 9[address]47 Assigned Cancer Care Provider 06/23/24 Elsy Mims MD 500 [place] [address] Physician Infectious Diseases 12/09/24 Elsy Mims MD 500 [place] [address] Assigned Infectious Disease Provider 01/21/25 documented as of this encounter
--- OUTSIDE RECORDS SUMMARY | 2025-01-30 23:16 | XMS_ITS | Encounter Summary ---
Author Organization [facility] Address [address] [place] [address] Care Team Providers Care Dye Padder Operator Name Role Phone Alvaro Clark MD Unavailable System, Provider Not In Primary Care Provider Un available Ky Torres MD Unavailable [phone] Sixto Whalen APRN BOMB SQUAD COMMANDER Unavailable [phone] No Ref-Primary, Physician Primary Care Provider Yessica Mcleod PA-C Unavailable Bhavin Gardner Primary Care Provider Ky Torres MD Unavailable [phone] Dylan Guerin Unavailable Ky Torres MD Unavailable [phone] Dylan Guerin Unavailable Elsy Mims MD Unavailable Elsy Mims MD Unavailable Encounter Details Date Type Department Care Team (Late st Contact Info) Description 07/24/2023 [facility] [address] [place] [address] Diamond Conway RN Social History [...] on file 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 Gender Identity Not on file Sexual Orientation Not on file 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 file documented as of this encounter Plan of Treatment Upcoming Encounters Date Type Department Care Team (Late st Contact Info) Description 01/31/2025 12:30 PM CDT Infusion Therapy Visit [facility] [address] [place] [address] [address] JACOBS 200 [place] [phone] [place] [address] 200 [place], [place] [address] 01/31/2025 2:40 PM CDT Appointment [facility] Imaging [address] [place] [address] Yessica Mcleod, PAJannetC [address] JACOBS 200 [place] [address] 02/03/2025 10:30 AM CDT Oncology Visit [address] JACOBS 200 [facility] [place] [place] [address] Ky Torres MD 420 [facility] 480 [place] [address] documented as of this encounter Visit Diagnoses Not on filedocumented in this encounter Care Teams Dye Padder Operator Relationship Specialty Start Date End Date System, Provider Not In PCP - General Clinic 08/13/23 12/21/23 No Ref-Primary, Physician PCP - General 12/22/23 12/27/23 Bhavin Gardner [facility] [place] [address] PCP - General Family Medicine 12/28/23 Alvaro Clark MD 420 [facility] 394 [place] [address] Assigned Surgical Provider 07/24/23 Ky Torres MD 420 [facility] 480 [place] [address] Assigned Cancer Care Provider 09/22/23 10/21/23 Sixto Whalen APRN CNP 909 [place] [address] Assigned Cancer Care Provider 10/22/23 12/21/23 Yessica Mcleod PA-C [address] [address] 200 [place] [address] Assigned Cancer Care Provider 12/22/23 01/21/24 Ky Torres MD 420 [facility] 480 [place] [address] Assigned Cancer Care Provider 01/22/24 04/22/24 [place] [address] [address] 200 [place], [place] 336017 Assigned Cancer Care Provider 04/23/24 05/22/24 Ky Torres MD 420 [facility] 480 [place] [address] Assigned Cancer Care Provider 05/23/24 06/22/24 [place] [address] [place] [address] [address] Assigned Cancer Care Provider 06/23/24 Elsy Mims MD 500 [place], [place] 8[address] Physician Infectious Diseases 12/09/24 Elsy Mims MD 500 [place], [place] 106[address] Assigned Infectious Disease Provider 01/21/25 documented as of this encounter
--- OUTSIDE RECORDS SUMMARY | 2025-01-30 23:16 | XMS_ITS | Clinical Summary ---
Author Organization [facility] Address [address] [place] [address] Care Team Providers Care Bar Pointer Name Role Phone Alvaro Clark MD Unavailable Bhavin Gardner Primary Care Provider [phone] Dylan Guerin Unavailable [phone] Elsy Mims MD Unavailable [phone] Elsy Mims MD Unavailable [phone] Allergies Active Allergy Reactions Criticality Noted Date [...] by mouth daily 510 g 4 Active Additional Information Patient not taking.Reported on 01/05/2025 senna-docusate (SENOKOT-S/PERIC OLACE) 8.6-50 MG tabletIndication s:Postoperative state Take 1 tablet by mouth 2 times daily 40 tablet 4 Active Additional Information Patient not taking.Reported on 01/05/2025 triamcinolone (KENALOG) 0.1 % external lotionIndication s:Drug rash,Malignant neoplasm of anterior wall of urinary bladder (H) Apply topically 3 times daily. To itchy areas. 60 mL 2 11/22/202 4 Active Additional Information Patient not taking.Reported on 01/05/2025 albuterol (PROAIR HFA/PROVENTIL HFA/VENTOLIN HFA) 108 (90 Base) MCG/ACT inhalerIndicatio ns:Asthma, unspecified asthma severity, unspecified whether complicated, unspecified whether persistent Inhale 2 puffs into the lungs every 6 hours as needed for shortness of breath, wheezing or cough. 18 g 3 5 Active methenamine hippurate (HIPREX) 1 g tabletIndication s:Urothelial cancer (H),Recurrent UTI,Complicated UTI (urinary tract infection) Take 1 tablet (1 g) by mouth 2 times daily. 180 tablet 5 04/05/20 25 Active vitamin C (ASCORBIC ACID) 250 MG tabletIndication s:Urothelial cancer (H),Recurrent UTI,Complicated UTI (urinary tract infection) Take 1 tablet (250 mg) by mouth daily. 90 tablet 5 04/05/20 25 Active Active Problems Problem Noted Date Diagnosed Date Iron deficiency anemia due to chronic blood loss 02/10/2024 Small bowel obstruction 12/27/2023 Bladder cancer 12/22/2023 Cancer Staging:Pathologic stage from 01/15/2024:Stage IIIA(ypT4a, pN0, cM0) - Signed by Ky Torres MD on 01/18/2024 Urothelial cancer 09/06/2023 Lesion of bladder 07/10/2023 Encounters Date Type Department Care Team Description 01/26/2025 Telephone [facility] [address] [address] Elsy Mims MD Symptoms 01/05/2025 10:00 AM CDT Office Visit [facility] Infectious Disease [address] [place] [phone] Dylan Guerin PA Kavalier, Meredith, MD Recurrent UTI (Primary Dx); Urothelial cancer (H); Complicated UTI (urinary tract infection); Pyelonephritis 01/05/2025 Travel 01/03/2025 2:30 PM CDT Infusion Therapy Visit [address] [place] [phone] Dylan Guerin PA Malignant neoplasm of anterior wall of urinary bladder (H) (Primary Dx) 01/03/2025 1:30 PM CDT Virtual Visit [address] [place] [phone] Dylan Guerin PA Prostate cancer (H) (Primary Dx) 01/03/2025 1:00 PM CDT Infusion Therapy Visit [address] [place] [address] Dylan Guerin PA Malignant neoplasm of anterior wall of urinary bladder (H) (Primary Dx); Urothelial cancer (H); Prostate cancer (H) 01/03/2025 Travel 12/06/2024 10:00 AM CDT Infusion Therapy Visit [address] [place] [phone] Ky Torres MD Malignant neoplasm of anterior wall of urinary bladder (H) (Primary Dx) 12/06/2024 9:00 AM CDT Oncology Visit [address] [place] [phone] Yessica Mcleod PA-C Urothelial cancer (H) (Primary Dx); Prostate cancer (H); Complicated UTI (urinary tract infection); Shortness of breath 12/06/2024 8:30 AM CDT Infusion Therapy Visit [address] [place] [phone] Yessica Mcleod PA-C Malignant neoplasm of anterior wall of urinary bladder (H) (Primary Dx) 12/06/2024 Travel 11/30/2024 2:50 PM CDT - 11/30/2024 11:59 PM CDT Hospital Encounter [facility] Imaging [address] [place] [address] Dylan Guerin PA Urothelial cancer (H); Shortness of breath Discharge Disposition: Home or Self Care 11/30/2024 2:15 PM CDT Lab [address] [place] [address] Ky Torres MD Urothelial cancer (H); Prostate cancer (H) 11/30/2024 1:30 PM CDT Oncology Visit [address] [facility] [place] [phone] Dylan Guerin PA Urothelial cancer (H) (Primary Dx); Recurrent UTI; Complicated UTI (urinary tract infection); Pyelonephritis; Shortness of breath; Acute bronchitis, unspecified organism; Malignant neoplasm of anterior wall of urinary bladder (H) 11/30/2024 1:00 PM CDT Infusion Therapy Visit [address] [place] [address] Dylan Guerin PA Malignant neoplasm of anterior wall of urinary bladder (H) (Primary Dx) 11/30/2024 Travel 11/25/2024 1:25 PM CDT Lab [facility] [address] [place] [phone] Lower abdominal pain 11/25/2024 Results Follow-Up [address] [place] [phone] Yessica Mcleod PA-C 11/25/2024 Travel 11/25/[address] [facility] [place] [address] Yessica Mcleod PA-C Symptoms 11/10/2024 9:45 AM CDT Lab [facility] [place] [address] Urothelial cancer (H) 11/10/2024 Results Follow-Up [facility] Cancer Care Service Line [address] [place] [phone] Yessica Mcleod PA-C 11/10/2024 Orders Only [address] [facility] [place] [phone] Jill Rothman RN 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) (Primary Dx) 11/10/2024 Travel 11/09/[address] [facility] [place] [phone] Dylan Guerin PA 11/09/2024 Orders Only [address] [facility] [place] [address] Dylan Guerin PA Urothelial cancer (H) (Primary Dx) 11/07/[address] [facility] [place] [address] Dylan Guerin PA 11/04/2024 1:30 PM CDT Oncology Visit [address] [facility] [place] [address] Yessica Mcleod PA-C Urothelial cancer (H) (Primary Dx); Asthma, unspecified asthma severity, unspecified whether complicated, unspecified whether persistent; Prostate cancer (H); Complicated UTI (urinary tract infection) 11/04/2024 1:00 PM CDT Infusion Therapy Visit [address] [place] [address] Yessica Mcleod PA-C Malignant neoplasm of anterior wall of urinary bladder (H) (Primary Dx) 11/04/2024 11:30 AM CDT Infusion Therapy Visit [facility] [address] [place] [address] Yessica Mcleod PA-C Malignant neoplasm of anterior wall of urinary bladder (H) (Primary Dx) 11/04/2024 9:02 AM CDT - 11/04/2024 11:59 PM CDT Hospital Encounter [facility] Imaging [address] [place] [address] Dylan Guerin PA Urothelial cancer (H); Malignant neoplasm of anterior wall of urinary bladder (H) Discharge Disposition: Home or Self Care 11/04/2024 Travel from Last 3 Months Family History [...] on file Legal Sex Male 4:18 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 Gender Identity Not on file Sexual Orientation Not on file 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 file Last Filed Vital Signs Vital Sign Reading Time Taken Comments Blood Pressure 107/63 01/05/2025 9:38 AM CDT Pulse 109 01/05/2025 9:38 AM CDT Temperature 35.9 C (96.6 F) 01/03/2025 2:50 PM CDT Respiratory Rate 20 01/03/2025 2:50 PM CDT Oxygen Saturation 93% 01/05/2025 9:38 AM CDT Inhaled Oxygen Concentration - - Weight 81.2 kg (179 lb) 01/05/2025 9:38 AM CDT Height 170.2 cm (5' 7) 01/03/2025 1:01 PM CDT Body Mass Index 28.04 01/03/2025 1:01 PM CDT Plan of Treatment Upcoming Encounters Date Type Department Care Team (Late st Contact Info) Description 01/31/2025 12:30 PM CDT Infusion Therapy Visit [facility] [id number] [place] [address] [address] [place] [phone] [place] [address] [place], [place] [phone] 01/31/2025 2:40 PM CDT Appointment [facility] Imaging [address] [place] [phone] Yessica Mcleod, PAJannetC [address] [place] [address] 02/03/2025 10:30 AM CDT Oncology Visit [facility] [address] [facility] [place] [phone] Ky Torres MD [address] [address] Health Maintenance Due Date Last Done Comments [...] MEDICARE ANNUAL WELLNESS VISIT 02/14/2024 INFLUENZA VACCINE (#1) 2025 COLORECTAL CANCER SCREENING 06/08/2025 FIT 06/08/2025 06/08/2024 DIABETES SCREENING 01/04/2028 01/03/2025, 0 12/06/2024, 11/30/2024, Additional history exists DTAP/TDAP/TD VACCINE (4 - Td or Tdap) 02/28/2029 02/28/2019, 02/07/2013, 11/14/2006 PHQ-2 (once per calendar year) Completed 07/15/2024, 12/11/2023 AORTIC ANEURYSM SCREENING (SYSTEM ASSIGNED) Completed 11/04/2024, 08/01/2024, 01/13/2024, Additional history exists LUNG CANCER SCREENING Discontinued 11/30/2024 , 11/04/2024, 08/01/2024, Additional history exists HPV VACCINE (No Doses Required) Completed MENINGITIS VACCINE Aged Out No longer eligible based on patient's age to complete this topic Medical Devices Implanted Type Area Restaurant Operations Manager Device Identifier Shelf Expiration Date Model / Serial / Lot Port-08/28/2023 Implanted:Qty: 1 on 08/28/2023 by Pipe Hernandez MD Port Right: Chest Wall [id number] 07/29/2026 / / [id number] Stent Ureteral Processing Associate Diversion 07fr [id number] - [id number] Implanted:Qty: 1 on 12/22/2023 by Alvaro Clark MD at [facility] Stent N/A: Abdomen [employer] [id number] 11/19/2026 [id number] / / [id number] Procedures Procedure Name Priority Date/Time Associated Diagnosis Comments CBC WITH PLATELETS & DIFFERENTIAL Routine 01/03/2025 12:52 PM CDT Malignant neoplasm of anterior wall of urinary bladder (H) FISH BLADDER CANCER Routine 01/03/2025 1 2:52 PM CDT Urothelial cancer (H) Prostate cancer (H) NON-GYNECOLOGIC CYTOLOGY Routine 01/03/2025 12:52 PM CDT Urothelial cancer (H) Prostate cancer (H) PSA TUMOR MARKER Add-On 01/03/2025 12:5 2 PM CDT Prostate cancer (H) CBC WITH PLATELETS AND DIFFERENTIAL Routine 01/03/2025 12:52 PM CDT Malignant neoplasm of anterior wall of urinary bladder (H) TSH WITH FREE T4 REFLEX Routine 01/03/2025 12:52 PM CDT Malignant neoplasm of anterior wall of urinary bladder (H) COMPREHENSIVE METABOLIC PANEL Routine 01/03/2025 12:52 PM CDT Malignant neoplasm of anterior wall of urinary bladder (H) CBC WITH PLATELETS & DIFFERENTIAL Routine 12/06/2024 8:13 AM CDT Malignant neoplasm of anterior wall of urinary bladder (H) RBC AND PLATELET MORPHOLOGY Routine 12/06/2024 8:13 AM CDT Malignant neoplasm of anterior wall of urinary bladder (H) MANUAL DIFFERENTIAL Routine 12/06/2024 8 :13 AM CDT Malignant neoplasm of anterior wall of urinary bladder (H) CBC WITH PLATELETS AND DIFFERENTIAL Routine 12/06/2024 8:13 AM CDT Malignant neoplasm of anterior wall of urinary bladder (H) TSH WITH FREE T4 REFLEX Routine 12/06/2024 8:13 AM CDT Malignant neoplasm of anterior wall of urinary bladder (H) COMPREHENSIVE METABOLIC PANEL Routine 12/06/2024 8:13 AM CDT Malignant neoplasm of anterior wall of urinary bladder (H) FISH BLADDER CANCER Routine 11/30/2024 3 :31 PM CDT Urothelial cancer (H) Prostate cancer (H) NON-GYNECOLOGIC CYTOLOGY Routine 11/30/2024 3:31 PM CDT Urothelial cancer (H) Prostate cancer (H) CT CHEST PULMONARY EMBOLISM W CONTRAST STAT 11/30/2024 3:28 PM CDT Urothelial cancer (H) Shortness of breath EKG 12-LEAD COMPLETE W/READ - CLINICS Routine 11/30/2024 2:05 PM CDT Shortness of breath D DIMER QUANTITATIVE Routine 11/30/2024 1:58 PM CDT Shortness of breath CBC WITH PLATELETS & DIFFERENTIAL Routine 11/30/2024 12:03 PM CDT Malignant neoplasm of anterior wall of urinary bladder (H) CBC WITH PLATELETS AND DIFFERENTIAL Routine 11/30/2024 12:03 PM CDT Malignant neoplasm of anterior wall of urinary bladder (H) TSH WITH FREE T4 REFLEX Routine 11/30/2024 12:03 PM CDT Malignant neoplasm of anterior wall of urinary bladder (H) COMPREHENSIVE METABOLIC PANEL Routine 11/30/2024 12:03 PM CDT Malignant neoplasm of anterior wall of urinary bladder (H) URINE CULTURE Routine 11/25/2024 1:33 PM CDT Lower abdominal pain ROUTINE UA WITH MICROSCOPIC REFLEX TO CULTURE [...] STOOL 1-3 SPEC Routine 06/08/2024 9:00 AM DERMATOLOGY SPECIALIST Iron deficiency anemia due to chronic blood loss from Last 3 Months or Most Recently Relevant to Health Maintenance Results * (ABNORMAL) CBC with platelets and differential (01/03/2025 12:52 PM CDT) Only the most recent of4 resultswithin the time period is included. WBC Count 6.7 4.0 - 11.0 10e3/uL [...] 12:52 PM CDT 01/03/2025 12:58 PM CDT us Dylan IBARRA LAB - BLOOD ORDERABLES Fin al Result [facility] [address] [facility] Lab (1st floor, no room number) [place] [address], [facility] * FISH bladder cancer (01/03/2025 12:52 PM CDT) Only the most recent of2 resultswithin the time period is included. Final Diagnosis Specimen A Interpretation: Unsatisfactory specimen [...] of this testing was completed at [facility]. Stain controls for all stains resulted within this report have been reviewed and show appropriate reactivity. 01/09/2025 12:36 PM CDT SPECIALTY LABS Urine VOIDED URINE SPECIMEN / Unknown Non-blood Collection / Unknown 01/03/2025 12:52 PM CDT 01/04/2025 7:51 AM CDT Ky SPEARS Final Resu lt SPECIALTY LABS [facility] [address] [facility] [address], [address] [place] [address], [facility] * Cytology, non-gynecologic (01/03/2025 12:52 PM CDT) Only the most recent of2 resultswithin the time period is included. Final Diagnosis Specimen A. Urine for cytology: [...] of this testing was completed at [facility]. Stain controls for all stains resulted within this report have been reviewed and show appropriate reactivity. 01/04/2025 5:42 PM CDT SPECIALTY LABS Urine VOIDED URINE SPECIMEN / Unknown Non-blood Collection / Unknown 01/03/2025 12:52 PM CDT 01/03/2025 2:55 AM CDT Ky RIVER - MARYCARMEN AP Final Resu lt LABORATORY [facility] Lab [address] 1st floor, [address] [place] [address], [facility] [phone] SPECIALTY LABS Specialty Lab [address] [facility], [address] [place] [address], [facility] * TSH with free T4 reflex (01/03/2025 12:52 PM CDT) Only the most recent of4 resultswithin the time period is included. TSH 2.93 0.30 - 4.20 uIU/mL 01/03/2025 1:35 PM CDT LABORATORY Blood (Portacath) IVAD (Port) / Unknown 01/03/2025 12:52 PM CDT 01/03/2025 12:57 PM CDT us Dylan IBARRA LAB - BLOOD ORDERABLES Fin al Result LABORATORY [facility] Acute Care Lab [address] Lab (1st floor, no room number) [place] [address], [facility] * PSA, tumor marker (01/03/2025 12:52 PM [...] BLOOD ORDERABLES Fin al Result [facility] LABORATORY [facility] [address] [facility], Room [address] [place] [address] * Comprehensive metabolic panel (01/03/2025 12:52 PM CDT) Only the most recent of4 resultswithin the time period is included. Sodium 139 135 - 145 mmol/L 01/03/2025 [...] - BLOOD ORDERABLES Fin al Result LABORATORY [facility] [address] Lab (1st floor, no room number) [place] [address], [facility] * (ABNORMAL) Manual Differential (12/06/2024 8:13 AM CDT) % Neutrophils 81 % DAGMAR 12/06/2024 8:59 AM CDT [facility] % Lymphocytes 7 % DAGMAR 12/06/2024 8:59 AM CDT [facility] % Monocytes 3 % DAGMAR 12/06/2024 8:59 AM CDT [facility] % Eosinophils 6 % DAGMAR 12/06/2024 8:59 AM CDT [facility] % Basophils 0 % DAGMAR 12/06/2024 8:59 AM CDT [facility] % Metamyelocytes 2 % DAGMAR 12/06/2024 8:59 AM CDT [facility] % Myelocytes 1 % DAGMAR 12/06/2024 8:59 AM CDT [facility] LAB[facility] Absolute Neutrophils 9.7(H) 1.6 - 8.3 10e3/uL DAGMAR 12/06/2024 8:59 AM CDT [facility] Absolute Lymphocytes 0.8 0.8 - 5.3 10e3/uL DAGMAR 12/06/2024 8:59 AM CDT [facility] LAB[facility] Absolute Monocytes 0.4 0.0 - 1.3 10e3/uL DAGMAR 12/06/2024 8:59 AM CDT [facility] LAB[facility] Absolute Eosinophils 0.7 0.0 - 0.7 10e3/uL DAGMAR 12/06/2024 8:59 AM CDT [facility] LAB[facility] Absolute Basophils 0.0 0.0 - 0.2 10e3/uL DAGMAR 12/06/2024 8:59 AM CDT [facility] Absolute Metamyelocytes 0.2(H) <=0.0 10e3/uL DAGMAR 12/06/2024 8:59 AM CDT [facility] Absolute Myelocytes 0.1(H) <=0.0 10e3/uL DAGMAR 12/06/2024 8:59 AM CDT [facility] Blood (Portacath) IVAD (Port) / Unknown 12/06/2024 8:13 AM CDT 12/06/2024 8:21 AM CDT Dylan IBARRA LAB - BLOOD ORDERABLES Fin al Result LABORATORY [facility] Lab [address] [facility] Lab (1st floor, no room number) [place] [address], [facility] * RBC and Platelet Morphology (12/06/2024 8:13 AM CDT) [facility] RBC Morphology Confirmed RBC Indices 12/06/2024 8:59 AM CDT [facility] Platelet Assessment Automated Count Confirmed. Platelet morphology is normal. Automated Count Confirmed. Platelet morphology is normal. DAGMAR 12/06/2024 8:59 AM CDT [facility] Blood (Portacath) IVAD (Port) / Unknown 12/06/2024 8:13 AM CDT 12/06/2024 8:21 AM CDT Dylan IBARRA LAB - BLOOD ORDERABLES Fin al Result [facility] [address] Lab (1st floor, no room number) [place] [address], [facility] * CT Chest Pulmonary Embolism w Contrast (11/30/2024 3:28 PM CDT) Anatomical Region Laterality Modality Chest, SUBRAD CT BODY, UMP CT CHEST Computed Tomography 11/30/2024 3:28 PM CDT Impressions 11/30/2024 3:45 PM CDT IMPRESSION: 1. No evidence for pulmonary embolism. [...] for the Management of Incidental Pulmonary Nodules Detected at CT: From the Fleischner Society 2017, Radiology 2017. Narrative 11/30/2024 3:45 PM CDT EXAM: CT CHEST PULMONARY EMBOLISM W CONTRAST LOCATION: [facility] DATE: 11/30/2024 INDICATION: Elevated D-dimer, SOB, cancer patient, r/o PE. COMPARISON: CT 11/04/2024. TECHNIQUE: CT chest pulmonary angiogram during arterial phase injection of IV contrast. Multiplanar reformats and MIP reconstructions were performed. Dose reduction techniques were used. CONTRAST: 73 mL Isovue 370. FINDINGS: ANGIOGRAM CHEST: Pulmonary arteries are normal caliber and negative for pulmonary emboli. Thoracic aorta is negative for dissection. No CT evidence of right heart strain. LUNGS AND PLEURA: No effusions. No acute airspace disease identified. Emphysematous changes. Stable 3 mm nodule right upper lobe posteriorly series [...] MUSCULOSKELETAL: No aggressive appearing bone lesion identified. Procedure Note Maverick Harris MD - 11/30/2024 EXAM: CT CHEST PULMONARY EMBOLISM W CONTRAST LOCATION: [facility] DATE: 11/30/2024 INDICATION: Elevated D-dimer, SOB, cancer patient, r/o PE. COMPARISON: CT 11/04/2024. TECHNIQUE: CT chest pulmonary angiogram during arterial phase injection ofIV contrast. Multiplanar reformats and MIP reconstructions were performed.Dose reduction techniques were used. CONTRAST: 73 mL Isovue 370. FINDINGS: ANGIOGRAM CHEST: Pulmonary arteries are normal caliber and negative forpulmonary emboli. Thoracic aorta is negative for dissection. No CTevidence of right heart strain. LUNGS AND PLEURA: No effusions. No acute airspace disease identified.Emphysematous changes. Stable 3 mm nodule right upper lobe posteriorlyseries 7 image 106. Bilateral peribronchial wall thickening notedappearing mildly increased at the lower lungs. MEDIASTINUM/AXILLAE: No acute mediastinal abnormality. Mediastinal lymphnodes are small. Borderline prominent bilateral hilar lymph nodesmeasuring 10 mm on the right and 9 mm on the left. CORONARY ARTERY CALCIFICATION: Mild. UPPER ABDOMEN: Hepatic cysts. No acute upper abdominal abnormality. MUSCULOSKELETAL: No aggressive appearing bone lesion identified. IMPRESSION: 1. No evidence for pulmonary embolism. 2. Increased peribronchial wall thickening. Correlate with abronchitis. 3. Stable borderline prominent hilar lymph nodes. 4. Stable small pulmonary nodule. Recommendations for one or multiple incidental lung nodules < 6mm: Low-Risk Patient: No routine follow-up. High-Risk Patient: Optional follow-up CT at 12 months; if unchanged, nofurther follow-up. *Low Risk: Minimal or absent history of smoking or other known riskfactors. *Nonsolid (ground-glass) or partly solid nodules may require longerfollow-up to exclude indolent adenocarcinoma. 1. *Recommendations based on Guidelines for the Management of IncidentalPulmonary Nodules Detected at CT: From the Fleischner Society 2017,Radiology 2017. us Dylan IBARRA IMG CT ORDERABLES Final Re sult * EKG 12-lead complete w/read - Clinics (11/30/2024 2:05 PM CDT) Dylan IBARRA ECG ORDERABLES Final Resu lt * (ABNORMAL) D dimer, quantitative (11/30/2024 1:58 PM CDT) D-Dimer Quantitative 0.61(H) 0.00 - 0.50 ug/mL FEU 11/30/2024 2:18 PM CDT [facility] Blood BLOOD SPECIMEN / Unknown IVAD (Port) / Unknown 11/30/2024 1:58 PM CDT 11/30/2024 2:01 PM CDT Narrative [facility] - 11/30/2024 2:18 PM CDT This D-dimer assay is intended for use in conjunction with a clinical pretest probability assessment model to exclude pulmonary embolism (PE) and deep venous thrombosis (DVT) in outpatients suspected of PE or DVT. The cut-off value is 0.50 ug/mL FEU. For patients 50 years of age or older, the application of age-adjusted cut-off values for D-Dimer may increase the specificity without significant effect on sensitivity. The literature suggested calculation age adjusted cut-off in ug/L = age in years x 10 ug/L. The results in this laboratory are reported as ug/mL rather than ug/L. The calculation for age adjusted cut off in ug/mL= age in years x 0.01 ug/mL. For example, the cut off for a 76 year old male is 75 x 0.01 ug/mL = 0.76 ug/mL (760 ug/L). M Junai et al. Age adjusted D-dimer cut-off levels to rule out pulmonary embolism: The ADJUST-PE Study. ROXANA 2014;311:2609-4610.; SRIKANTH Pickett et al. Diagnostic accuracy of conventional or age adjusted D-dimer cutoff values in older patients with suspected venous thromboembolism. Systemic review and meta-analysis. BMJ 2013:346:f2492. Dylan IBARRA LAB - BLOOD ORDERABLES Fin al Result [facility] [address] Lab (1st floor, no room number) [place] [address] * (ABNORMAL) UA with Microscopic reflex to Culture (11/25/2024 1:33 PM CDT) Only the most recent of2 resultswithin the time period is included. Color Urine Straw Colorless, Straw, Light Yellow, Yellow 11/25/2024 2:47 PM CDT LABORATORY Appearance Urine Clear Clear 11/26/19 2:47 PM CDT LABORATORY Glucose Urine Negative Negative mg/dL 11/25/2024 2:47 PM CDT LABORATORY Bilirubin Urine Negative Negative 2:47 PM CDT LABORATORY Ketones Urine Negative Negative mg/dL 11/25/2024 2:47 PM CDT LABORATORY Specific [place] Urine 1.005 1.003 - 1.035 11/25/2024 2:47 PM CDT LABORATORY Blood Urine Trace(A) Negative 11/25/2024 2:47 PM CDT LABORATORY pH Urine 6.5 5.0 - 7.0 11/25/2024 2:47 PM CDT LABORATORY Protein Albumin Urine Negative Negative mg/dL 11/25/2024 2:47 PM CDT LABORATORY Urobilinogen Urine Normal Normal mg/dL 11/25/2024 2:47 PM CDT LABORATORY Nitrite Urine Negative Negative 11/25/2024 2:47 PM CDT LABORATORY Leukocyte Esterase Urine Moderate(A) Negative 11/25/2024 2:47 PM CDT LABORATORY Bacteria Urine Few(A) None Seen /HPF 11/25/2024 2:47 PM CDT LABORATORY WBC Clumps Urine Present(A) None Seen /HPF 11/25/2024 2:47 PM CDT LABORATORY Mucus Urine Present(A) None Seen /LPF 11/25/2024 2:47 PM CDT LABORATORY RBC Urine 4(H) <=2 /HPF 11/25/2024 2:47 PM CDT RH LABORATORY WBC Urine 32(H) <=5 /HPF 11/25/2024 2:47 PM CDT LABORATORY Squamous Epithelials Urine <1 <=1 /HPF 11/25/2024 2:47 PM CDT RH LABORATORY Urine URINE SPECIMEN / Unknown Non-blood Collection / Unknown 11/25/2024 1:33 PM CDT 11/25/2024 1:33 PM CDT Narrative LABORATORY - 11/25/2024 2:47 PM CDT Urine Culture ordered based on laboratory criteria Yessica Haynes PA-C LAB - URINE ORD ERABLES Final Result LABORATORY [facility] Acute Care Lab [address] Lab (1st floor, no room number) [place] [address] * Urine Culture (11/25/2024 1:33 PM CDT) Only the most recent of2 resultswithin the time period is included. Culture No Growth 11/26/2024 2:02 PM CDT [facility] IDD LABORATORY Urine URINE SPECIMEN / Unknown Non-blood Collection / Unknown 11/25/2024 1:33 PM CDT 11/25/2024 2:46 PM CDT Yessica Haynes PA-C LAB - MICRO GEN ERAL ORDERABLES Final Result [facility]U IDD LABORATORY [facility] Inf. Diseases Diag. Lab [address] [facility], Room [address] [place] [address], [facility] * CT Chest/Abdomen/Pelvis w Contrast (11/04/2024 9:48 [...] CDT EXAM: CT CHEST/ABDOMEN/PELVIS W CONTRAST LOCATION: [facility] DATE: 11/04/2024 INDICATION: monitoring bladder [...] 11/04/2024 EXAM: CT CHEST/ABDOMEN/PELVIS W CONTRAST LOCATION: [facility] DATE: 11/04/2024 INDICATION: monitoring bladder [...] correlation with clinical exam. us Dylan IBARRA IMG CT ORDERABLES Final Re sult * Occult blood stool 1-3 spec (06/08/2024 9:00 AM DERMATOLOGY SPECIALIST) Pathologist [facility] Occult Blood Slide 1 Negative Negative DAGMAR 06/17/2024 11:32 AM DERMATOLOGY SPECIALIST LABORATORY Occult Blood Slide 2 Negative Negative DAGMAR 06/17/2024 11:32 AM DERMATOLOGY SPECIALIST LABORATORY Occult Blood Slide 3 Negative Negative DAGMAR 06/17/2024 11:32 AM DERMATOLOGY SPECIALIST LABORATORY Stool RECTAL CONTENTS / Unknown Non-blood Collection / Unknown 06/08/2024 9:00 AM DERMATOLOGY SPECIALIST 06/17/2024 11:16 AM DERMATOLOGY SPECIALIST us Dylan IBARRA LAB - STOOLS ORDERABLES Fi nal Result [facility] Acute Care Lab [address] [facility] Lab (1st floor, no room number) [place] [address], [facility] from Last 3 Months or Most Recently Relevant to Health Maintenance Insurance [employer] Advance Directives For more information, please contact: [phone] * Full Code (Latest Code Status on [...] patie nt/ legal decision maker Care Teams Bar Pointer Relationship Specialty Start Date End Date VotelBhavin [address] [place] [address] PCP - General Family Medicine 12/28/23 Alvaro Clark MD [address] [place] [address] 274195 Assigned Surgical Provider 07/24/23 [place] [address] [place], [place] [address] Assigned Cancer Care Provider 06/23/24 Elsy Mims MD [address] [place] [address] 208355 Physician Infectious Diseases 12/09/24 Elsy Mims MD 500 [place] [address] Assigned Infectious Disease Provider 01/21/25
--- OUTSIDE RECORDS SUMMARY | 2025-01-30 23:16 | XMS_ITS | Encounter Summary ---
Author Organization [facility] Address [address] [place] [address] Care Team Providers Care Veterinary Manager Name Role Phone Alvaro Clark MD Unavailable No Ref-Primary, Physician Primary Care Provider Yessica Mcleod-C Unavailable Bhavin Gardner Primary Care Provider [phone] Ky Torres MD Unavailable Dylan Guerin Unavailable Ky Torres MD Unavailable Dylan Guerin Unavailable Elsy Mims MD Unavailable [phone] Elsy Mims MD Unavailable Encounter Details Date Type Department Care Team (Late st Contact Info) Description 12/26/2023 [facility] Medical Advice [facility] [place] [address] [facility] [place] [address] Alvaro Clark MD [address] [facility] [address] [place] [address] Urothelial cancer (H) (Primary Dx) [...] on file 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 Gender Identity Not on file Sexual Orientation Not on file 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 file documented as of this encounter Plan of Treatment Upcoming Encounters Date Type Department Care Team (Late st Contact Info) Description 01/31/2025 12:30 PM CDT Infusion Therapy Visit [facility] [address] [place] [address] [address]ACOBS 200 [place] [address] [place] [address] [place], [place] [address] 01/31/2025 2:40 PM CDT Appointment [facility] Imaging [address] [place] [address] Yessica Mcleod, PAJannetC [address] [place] [address] 02/03/2025 10:30 AM CDT Oncology Visit [address] JACOBS 200 [facility] [place] [place] [address] Ky Torres MD 420 [facility] 480 [place], [place] 940[address] documented as of this encounter Visit Diagnoses Diagnosis Urothelial cancer (H)- Primary Malignant neoplasm of other specified sites of urinary organs documented in this encounter Care Teams Veterinary Manager Relationship Specialty Start Date End Date No Ref-Primary, Physician PCP - General 12/22/23 12/27/23 Bhavin Gardner [address] [place] [address] PCP - General Family Medicine 12/28/23 Alvaro Clark MD [address] [facility] [address] [place] [address] Assigned Surgical Provider 07/24/23 Yessica Mcleod PA-C [address] 200 [place] [address] Assigned Cancer Care Provider 12/22/23 01/21/24 Ky Torres MD [address] [place] [address] 480 [place] [address] Assigned Cancer Care Provider 01/22/24 04/22/24 [place] [address] [place] [address] Assigned Cancer Care Provider 04/23/24 05/22/24 Ky Torres MD [address] [place] [address] Assigned Cancer Care Provider 05/23/24 06/22/24 [place] [address] [place] [address] Assigned Cancer Care Provider 06/23/24 Elsy Mims MD [address] [place] [address] Physician Infectious Diseases 12/09/24 Elsy Mims MD 500 [place] [address] Assigned Infectious Disease Provider 01/21/25 documented as of this encounter
--- OUTSIDE RECORDS SUMMARY | 2025-01-30 23:16 | XMS_ITS | Encounter Summary ---
Author Organization [facility] Address [address] [place] [address] Care Team Providers Care Clerical Supervisor Name Role Phone Alvaro Clark MD Unavailable System, Provider Not In Primary Care Provider Un available Ky Torres MD Unavailable [phone] Sixto Whalen APRN ORGANIC GARDENING TEACHER Unavailable [phone] No Ref-Primary, Physician Primary Care Provider Yessica Mcleod PA-C Unavailable Bhavin Gardner Primary Care Provider Ky Torres MD Unavailable [phone] Dylan Guerin Unavailable Ky Torres MD Unavailable [phone] Dylan Guerin Unavailable Elsy Mims MD Unavailable [phone] Elsy Mims MD Unavailable [phone] Encounter Details Date Type Department Care Team (Late st Contact Info) Description 09/02/2023 [facility] Advice [facility] Center [place] [address], DA[address]Y [address] [facility] [place] [phone] Ky Torres MD 420 [facility] 480 [place] [address] Social History Tobacco Use Types Packs/Day Years [...] on file 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 Imaging [address] [place] [address] [place] [address] Yessica Mcleod PA-C [address]ACOBS 200 [place] [address] 02/03/2025 10:30 AM CDT Oncology Visit [address] JACOBS 200 [facility] [place] [address] Ky Torres MD [address] [place] [address] 480 [place] [address] documented as of this encounter Visit Diagnoses Not on filedocumented in this encounter Care Teams Clerical Supervisor Relationship Specialty Start Date End Date System, Provider Not In PCP - General Clinic 08/13/23 12/21/23 No Ref-Primary, Physician PCP - General 12/22/23 12/27/23 Bhavin Gardner [address] [place] [address] PCP - General Family Medicine 12/28/23 Alvaro Clark MD [address] [address] Assigned Surgical Provider 07/24/23 Ky Torres MD [address] [place] [address] 480 [place] [address] Assigned Cancer Care Provider 09/22/23 10/21/23 Sixto Whalen APRN CNP [address] [place] [address] Assigned Cancer Care Provider 10/22/23 12/21/23 Yessica Mcleod PA-C [address] [place] [address] 818817 Assigned Cancer Care Provider 12/22/23 01/21/24 Ky Torres MD [address] [place] [address] 086215 Assigned Cancer Care Provider 01/22/24 04/22/24 [place] [address] [address] [place] [address] 778317 Assigned Cancer Care Provider 04/23/24 05/22/24 Ky Torres MD [address] [place] [address] Assigned Cancer Care Provider 05/23/24 06/22/24 [place] [address] [place] [address] [place] [address] 412417 Assigned Cancer Care Provider 06/23/24 Elsy Mims MD 500 [place], [place] 133535 Physician Infectious Diseases 12/09/24 Elsy Mims MD 500 [place] [address] Assigned Infectious Disease Provider 01/21/25 documented as of this encounter
--- OUTSIDE RECORDS SUMMARY | 2025-01-30 23:16 | XMS_ITS | Encounter Summary ---
Author Organization [facility] Address [address] [place] [address] Care Team Providers Care Steel Estimator Name Role Phone Alvaro Clark MD Unavailable Bhavin Gardner Primary Care Provider [phone] Dylan Guerin Unavailable [phone] Elsy Mims MD Unavailable [phone] Elsy Mims MD Unavailable [phone] Reason for Visit * Reason Onset Date Comments Symptoms 01/26/2025 Encounter Details Date Type Department Care Team (Late st Contact Info) Description 01/26/2025 Telephone [facility] Infectious Disease Clinic [address] [address] Elsy Mims MD [address] [place] [address] Symptoms Social History Tobacco Use Types [...] on file 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 Manager Marketing Communication encourages pt to follow up with urology as discussed at ID appointment on 01/05. Ofelia Cardenas RN This would be unusual 2 weeks into therapy, but I agree with your plan of holding for now. If symptoms worse he has to go to local ED. At our visit he was unsure about following up with me. He can make a follow up appointment and we can discuss alternative strategies vs potential rechallenge in the future. Elsy * Telephone Encounter - Ofelia Cardenas RN - 01/26/2025 9:49 AM CDT Call to Oleg to check in on symptoms. Oleg explains he started methenamine hippurate (HIPREX) about 2 weeks ago. Last week a rash started on pt's legs. Has been using anti-itch cream (was thinking he got into something while mowing the lawn). Rash continues. Pt sates recent tingling slight swelling on tongue and lips. Itching throat. Pt unable to link this situation to anything other than the new medication Took benadryl today and has not taken hiprex today. Manager Marketing Communication instructs Oleg to stop taking Hiprex. And please to go ER if symptoms worsen. Pt agrees to this plan. Message routed to provider. Office visit note 01/05 (miriam) Start PO methenamine 1g BID + PO vitamin C Stay hydrated Increase CIC frequency Drop off urine sample for any s/s UTI - dysuria, increased frequency/spasms, suprapubic pain, fevers, chills Standing order for UA w/ reflex to culture placed Recommend against urine culture or antibiotic treatment for increased mucous in urine or cloudy urine Recommend re-establishing with Urology for additional management recommendations * Telephone Encounter - Tiffany Moss - 01/26/2025 8:18 AM CDT [facility] Call Center Phone Message May a detailed message be left on voicemail: yes Reason for Call: Symptoms or Concerns If patient has red-flag symptoms, warm transfer to triage line Current symptom or concern: May be having an allergic reaction to - methenamine hippurate (HIPREX) 1 g tablet 180 tablet Not sure doesn't feel its emergent but wanted to notify provider of symptoms Itchy rash, sore throat,swollen lips/tongue. Symptoms have been present for: 4-5 day(s) Has patient previously been seen for this? No By : Dr Mims Are there any new or worsening symptoms? Yes: Possible reaction to new meds- methenamine hippurate (HIPREX) 1 g tablet 180 tablet Action Taken: Other: ID Travel Screening: Not Applicable Date of Service: documented in this encounter Plan of Treatment Upcoming Encounters Date Type Department Care Team (Late st Contact Info) Description 01/31/2025 12:30 PM CDT Infusion Therapy Visit [facility] [address]ACOBS [address] [place] [phone] [place] [address] [place] [address] [place] [address] 01/31/2025 2:40 PM CDT Appointment [facility] Imaging [address] [place] [address] [place] [phone] Yessica Mcleod PAJannetC [address] 200 [place] [address] 02/03/2025 10:30 AM CDT Oncology Visit [facility] [address] [place] [address] DR [address]ACOBS 200 [facility] [place] [address] Ky Torres MD 420 [facility] 480 [place] [address] documented as of this encounter Visit Diagnoses Not on filedocumented in this encounter Care Teams Steel Estimator Relationship Specialty Start Date End Date Votel, Bhavin Ford [address] [place] [address] PCP - General Family Medicine 12/28/23 Alvaro Clark MD 420 [facility] [address] [place] [address] Assigned Surgical Provider 07/24/23 [place] [address] [place] [address] [address] Assigned Cancer Care Provider 06/23/24 Elsy Mims MD 500 [place] [address] Physician Infectious Diseases 12/09/24 Elsy Mims MD 500 [place] [address] Assigned Infectious Disease Provider 01/21/25 documented as of this encounter
--- OUTSIDE RECORDS SUMMARY | 2025-01-30 23:16 | XMS_ITS | Encounter Summary ---
Author Organization [facility] Address [address] [place] [address] Care Team Providers Care Photo Colorer Name Role Phone Alvaro lCark MD Unavailable Bhavin Gardner Primary Care Provider [phone] Dylan Guerin Unavailable [phone] Elsy Mims MD Unavailable [phone] Elsy Mims MD Unavailable [phone] Encounter Details Date Type Department Care Team (Late st Contact Info) Description 11/25/2024 Results Follow-Up [facility] Pitcher [address] [address] [facility] [place] [address] Yessica Mcleod, PAJannetC [address] [address] [place] [address] Social History Tobacco Use Types [...] on file 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 Gender Identity Not on file Sexual Orientation Not on file 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 file documented as of this encounter Plan of Treatment Upcoming Encounters Date Type Department Care Team (Late st Contact Info) Description 01/31/2025 12:30 PM CDT Infusion Therapy Visit [facility] [address] [place] [address] [address] JACOBS 200 [place] [address] [place] [address] [place], [place] [address] 01/31/2025 2:40 PM CDT Appointment [facility] Imaging [address] [place] [address] [place] [address] Yessica Mcleod PA-C [address] [place] [address] [address] [place], [place] [address] 02/03/2025 10:30 AM CDT Oncology Visit [address]ACOBS 200 [place] [address] Ky Torres MD 420 [facility] 480 [place], [place] [address] documented as of this encounter Visit Diagnoses Not on filedocumented in this encounter Care Teams Photo Colorer Relationship Specialty Start Date End Date Votel, Bhavin Ford [facility] [place] [address] PCP - General Family Medicine 12/28/23 Alvaro Clark MD 420 [facility] [address] [place], [place] [address] Assigned Surgical Provider 07/24/23 Dylan Guerin PA [address] [place] [address] Dr [address] [place] [address] Assigned Cancer Care Provider 06/23/24 Elsy Mims MD 500 [place] [address] Physician Infectious Diseases 12/09/24 Elsy Mims MD 500 [place] [address] Assigned Infectious Disease Provider 01/21/25 documented as of this encounter
--- OUTSIDE RECORDS SUMMARY | 2025-01-30 23:16 | XMS_ITS | Encounter Summary ---
Author Organization [facility] Address [address] [place] [address] Care Team Providers Care Adjunct Political Science Instructor Name Role Phone Dalila Arrieta PA Unavailable [phone] System, Provider Not In Primary Care Provider Un available Alvaro Clark MD Unavailable System, Provider Not In Primary Care Provider Un available Ky Torres MD Unavailable [phone] Sixto Whalen APRN AUDIOVISUAL LEAD TECHNICIAN Unavailable [phone] No Ref-Primary, Physician Primary Care Provider Yessica Mcleod PA-C Unavailable Bhavin Gadrner Primary Care Provider [phone] Ky Torres MD Unavailable [phone] Dylan Guerin Unavailable [phone] Ky Torres MD Unavailable [phone] Dylan Guerin Unavailable [phone] Elsy Mims MD Unavailable [phone] Elsy Mims MD Unavailable [phone] Encounter Details Date Type Department Care Team (Late st Contact Info) Description 07/17/2023 [facility] Medical [facility] [address] 5th [place] [address] Lisa Guevara, RN Social History [...] on file 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 Gender Identity Not on file Sexual Orientation Not on file 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 file documented as of this encounter Plan of Treatment Upcoming Encounters Date Type Department Care Team (Late st Contact Info) Description 01/31/2025 12:30 PM CDT Infusion Therapy Visit [facility] [address] [place] [address] [address]AC[address]BS [address] [place] [address] [place] [address] [place] [address] 01/31/2025 2:40 PM CDT Appointment [facility] Imaging [address] [place] [address] [place] [phone] Yessica Mcleod, PAJose Luis [address] 200 [place] [address] 02/03/2025 10:30 AM CDT Oncology Visit [facility] [address] [place] 200 [facility] [place] [phone] Ky Torres MD [address] 0424[address] documented as of this encounter Visit Diagnoses Not on filedocumented in this encounter Care Teams Adjunct Political Science Instructor Relationship Specialty Start Date End Date System, Provider Not In PCP - General Clinic 07/20/23 07/20/23 System, Provider Not In PCP - General Clinic 08/13/23 12/21/23 No Ref-Primary, Physician PCP - General 12/22/23 12/27/23 Bhavin Gardner 1400 [place] [address] PCP - General Family Medicine 12/28/23 Dalila Arrieta PA [address] [place] [address] [place] [address] Assigned Surgical Provider 07/03/23 07/23/23 Alvaro Clark MD 420 [facility] 394 [place] [address] Assigned Surgical Provider 07/24/23 Ky Torres MD 420 [facility] 480 [place] [address] Assigned Cancer Care Provider 09/22/23 10/21/23 Sixto Whalen APRN CNP [address] [place] [address] Assigned Cancer Care Provider 10/22/23 12/21/23 Yessica Mcleod PA-C [address] [facility] [address] [address] Assigned Cancer Care Provider 12/22/23 01/21/24 Ky Torres MD 420 [facility] 480 [place] [address] Assigned Cancer Care Provider 01/22/24 04/22/24 [place] [address] [place] [address] Assigned Cancer Care Provider 04/23/24 05/22/24 Ky Torres MD [address] [place] [address] 619285 Assigned Cancer Care Provider 05/23/24 06/22/24 [place] [address] [place] [address] Assigned Cancer Care Provider 06/23/24 Elsy Mims MD 500 [place], [place] 487[address] Physician Infectious Diseases 12/09/24 Elsy Mims MD 500 [place], [place] [address] Assigned Infectious Disease Provider 01/21/25 documented as of this encounter
--- OUTSIDE RECORDS SUMMARY | 2025-01-30 23:16 | XMS_ITS | Encounter Summary ---
Author Organization [facility] Address [address] [place] [address] Care Team Providers Care Feeder/Folder Name Role Phone Alvaro Clark MD Unavailable System, Provider Not In Primary Care Provider Un available Ky Torres MD Unavailable [phone] Sixto Whalen APRN AUTOMOTIVE ELECTRICIAN HELPER Unavailable [phone] No Ref-Primary, Physician Primary Care Provider Yessica Mcleod PA-C Unavailable Bhavin Gardner Primary Care Provider [phone] Ky Torres MD Unavailable [phone] Dylan Guerin Unavailable Ky Torres MD Unavailable [phone] Dylan Guerin Unavailable Elsy Mims MD Unavailable Elsy Mims MD Unavailable Encounter Details Date Type Department Care Team (Late st Contact Info) Description 09/26/2023 [facility] [address] 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 file documented as of this encounter Plan of Treatment Upcoming Encounters Date Type Department Care Team (Late st Contact Info) Description 01/31/2025 12:30 PM CDT Infusion Therapy Visit [facility] [address] [place] [phone] [place] [address] [place] [address] 01/31/2025 2:40 PM CDT Appointment [facility] [address] [place] [phone] Yessica Mcleod PA-C [address] [place] [address] 02/03/2025 10:30 AM CDT Oncology Visit [address] [facility] [place] [phone] Ky Torres MD [address] [place] [address] 480 [place] [address] documented as of this encounter Visit Diagnoses Not on filedocumented in this encounter Care Teams Feeder/Folder Relationship Specialty Start Date End Date System, Provider Not In PCP - General Clinic 08/13/23 12/21/23 No Ref-Primary, Physician PCP - General 12/22/23 12/27/23 Bhavin Gardner [address] [place] [address] PCP - General Family Medicine 12/28/23 Alvaro Clark MD [address] [address] Assigned Surgical Provider 07/24/23 Ky Torres MD [address] [place] [place] [address] 480 [place] [address] Assigned Cancer Care Provider 09/22/23 10/21/23 Sixto Whalen APRN CNP [address] [place] [address] Assigned Cancer Care Provider 10/22/23 12/21/23 Yessica Mcleod PA-C [address] [place] [address] 498297 Assigned Cancer Care Provider 12/22/23 01/21/24 Ky Torres MD [address] [place] [address] [id number] Assigned Cancer Care Provider 01/22/24 04/22/24 [place] [address] [address] [place] [address] [id number] Assigned Cancer Care Provider 04/23/24 05/22/24 Ky Torres MD [address] [place] [address] Assigned Cancer Care Provider 05/23/24 06/22/24 [place] [address] [place] [address] [id number] Assigned Cancer Care Provider 06/23/24 Elsy Mims MD [address] [place], [place] [phone] Physician Infectious Diseases 12/09/24 Elsy Mims MD [address] [place] [address] Assigned Infectious Disease Provider 01/21/25 documented as of this encounter
--- OUTSIDE RECORDS SUMMARY | 2025-01-30 23:16 | XMS_ITS ---
Author Organization [facility] Address [address] [place] [address] Care Team Providers Care Loan Assistant Name Role Phone Alvaro Clark MD Unavailable Bhavin Gardner Primary Care Provider [phone] Dylan Guerin Unavailable [phone] Elsy Mims MD Unavailable [phone] Elsy Mims MD Unavailable [phone] Active Problems Problem Noted Date Diagnosed Date [...] Medications Current Day (Day 1 , Cycle 13 - Planned for 01/31/2025) nivolumab (OPDIVO)nivolumab 480 mg in 100 mL [...]
--- OUTSIDE RECORDS SUMMARY | 2025-01-30 23:16 | XMS_ITS | Encounter Summary ---
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 file documented as of this encounter Plan of Treatment Upcoming Encounters Date Type Department Care Team (Late st Contact Info) Description 01/31/2025 12:30 PM CDT Infusion Therapy Visit [facility] [address] [address] [place] [phone] [place] [address] [address] [place] [address] 01/31/2025 2:40 PM CDT Appointment [facility] Imaging [address] [place] [phone] Yessica Mcleod PA-C [address] [place] [address] 02/03/2025 10:30 AM CDT Oncology Visit [facility] [address] [facility] [place] [phone] Ky Torres MD [address] 409[address] documented as of this encounter Visit Diagnoses Not on filedocumented in this encounter Care Teams Distribution Associate Relationship Specialty Start Date End Date [address] [address] [place] [address] PCP - General Family Medicine 12/28/23 Alvaro Clark MD [address] [place] [address] [id number] Assigned Surgical Provider 07/24/23 Dylan Guerin PA [address] [place] [address] Dr [address] [facility] [address] Assigned Cancer Care Provider 06/23/24 Elsy Mims MD [address] [place] [address] Physician Infectious Diseases 12/09/24 documented as of this encounter
[2025-01-30 23:24] VITALS: BP 137/90; PULSE 96; RESP 18; TEMP 36.9; O2SAT 94; BMI 28.2
[2025-01-31 00:06] LABS: Appearance Urine Cloudy (Clear)
--- NOTE | 2025-01-31 00:22 | CRLHL7_ITS ---
For Patients: As a result of the Century Cures Act, medical imaging exams and procedure reports are released immediately into your electronic medical record. You may view this report before your referring provider. If you have questions, please contact your health care provider. Indication: Right umbilical pain, history of bladder cancer Technique: CT through the abdomen and pelvis following 89 mL Isovue 370 IV contrast Comparison: CT abdomen pelvis performed 11/26/2024 Findings: Lower chest: No acute abnormality appreciated. Hepatobiliary: No significant parenchymal abnormality is appreciated. Spleen: Unremarkable. Pancreas: No acute abnormality appreciated. Adrenal glands: No acute abnormality appreciated. Kidneys: Right renal scarring. Unchanged mild prominence of the collecting system and ureters without keshawn hydronephrosis. Bowel: No obstruction. Postsurgical changes from small bowel resection for neobladder creation. At the anastomosis, there is significantly increased small-bowel wall thickening with adjacent stranding and free fluid. The appendix is visualized and appears unremarkable. Vascular: Calcified and noncalcified atherosclerosis. Lymph nodes: No gross lymphadenopathy. Peritoneum: Small volume free fluid. No free air. : Neobladder present. This appears grossly unremarkable. Soft tissues: Postoperative changes to the ventral abdominal wall. Bones: No acute fracture. No lytic or blastic lesion. Degenerative changes of the spine and pelvis. Impression: Postoperative changes again noted from neobladder creation. At the site of small-bowel anastomosis, there is significant wall thickening of the bowel with adjacent stranding and small volume free fluid. This is most suggestive of a nonspecific enteritis. This may include infectious/inflammatory, malignant, and vascular causes. Absence of obstruction is suggestive against an internal hernia given postsurgical anatomy a surgical complication can not be excluded. Please note that all CT scans at this facility use dose modulation, iterative reconstruction, and/or weight-based dosing when appropriate to reduce radiation dose to as low as reasonably achievable. Dictated by Michael Ang MD @ 01/31/2025 2:06:35 AM (Electronically Signed)
--- NOTE | 2025-01-31 00:28 | ED_ITS ---
HPI - Abdominal Pain General Chief Complaint: Abdominal Pain Stated Complaint: stomach pain Time Seen by Provider: 01/30/25 23:58 Source: patient Mode of arrival: ambulatory Limitations: no limitations History of Present Illness HPI narrative: 64-year-old male presents in the wee hours to the emergency department with abdominal pain in the right slightly lower periumbilical region for the past 6 hours. No trauma or injury. Does have a notable history of bladder cancer, not currently on chemotherapy. He has a history of an artificial bladder made out of what sounds like small bowel a little over a year ago. He is fairly prone to bladder infections. He does straight cath 3-4 times per day to help fully empty his bladder and to relieve mucus. He had previously been treated with Hiprex, stopping about 10 days ago due to ration signs of allergic reaction. He is not having any fevers. No bloody stools, no nausea or vomiting. He admits that he did eat a lot of cheese curds yesterday and wonders if he is ?backed up?. He did not try taking any medications to help with his symptoms. No obvious symptoms of bladder infection at this time. No flank pain. He has had several evaluations for right lower abdominal pain in the ED in the past but states that this is different. Slightly different area. He also reports that the pain is constant and achy and seems to worsen with position changes. Past medical history is most notable for prior bladder cancer and asthma. Rarely uses his inhaler. Not currently taking any long-term medications. Does have access to nebulizer solution, recently stopped hip Frankie as stated above. Nonsmoker. ROS is notable for the abdominal symptoms only, otherwise denies times 12 systems for it Related Data Previous Rx's ?Medication ?Instructions ?Recorded albuterol sulfate 2.5 mg/3 mL 2.5 mg (3 mL) inhalation Q4-6H PRN 09/23/24 (0.083 %) solution for nebulization bronchospasm #180 mL cefdinir 300 mg capsule 300 mg PO BID #20 caps 11/26 Allergies Allergy/AdvReac Type Severity Reaction Status Date / Time Penicillins Allergy Intermediate Verified 09/23/24 12:53 [facility] Medical History Reactive airway disease ?J45.909 - Unspecified asthma, uncomplicated (ICD-10) Pneumonia ?J18.9 - Pneumonia, unspecified organism (ICD-10) Surgical History History of pyloric stenosis as a child ?Z87.19 - Personal history of other diseases of the digestive system (ICD-10) Family History Father Cancer of kidney Myocardial infarction, Onset Age: 87 Grandfather Myocardial infarction Grandmother Myocardial infarction Social History 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, 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, 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 Ex-smoker quit in 2012 60 pack year Does not drink alcohol, 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, remote use of cocaine and marijuana no IV drug use ever 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 What is your current living situation?: I presently have a place to live Problems where you live: no known problems In the past 12 months, utilities in danger of being shut off: no In past 12 months, lack of transportation kept you from medical appts, meetings, work, or getting things needed for daily living: no In the past 12 mos, have been you worried that your food would run out before you had money to buy more?: never true In the past 12 mos, the food you bought just didn't last and you didn't have money to buy more?: never true Smoking Status: Former smoker Do you use any of these nicotine containing products: None Second hand tobacco smoke exposure: No How often do you have a drink containing alcohol: never AUDIT-C Alcohol total score: 0 Non-prescribed substance use: denies use How often does anyone, including family, friends and others, physically hurt you : never How often does anyone, including family, friends and others, insult or talk down to you: never How often does anyone, including family, friends and others, threaten you with harm: never How often does anyone, including family, friends and others, scream or curse at you: never Exam Const: Vital Signs, click to edit/add: Vital Signs - 24 hr 01/30/25 23:24 01/31/25 03:36 Temperature 98.4 F Pulse Rate [Left P ulse Oximeter] 96 83 Respiratory Rate 18 18 Blood Pressure [[facility] Upper Arm] 137/90 H 124/79 Pulse Oximetry 94 94 Oxygen Delivery Me thod Room Air Room Air Documenting provider has reviewed patient's vital signs: yes Common normals: no apparent distress and alert General appearance: cooperative and well kempt HENMT: Common normals: normocephalic, moist oral mucous membranes and oropharynx normal Head and scalp: normocephalic Face and sinus: normal facial exam Throat: posterior oropharynx normal Eye: Common normals: conjunctivae normal General eye: normal appearance of both eyes Conjunctiva: conjunctiva(e) normal Neck & C-Spine: Common normals: full ROM and no lymphadenopathy General: normal visual inspection Resp: Common normals: normal respiratory effort, no use of accessory muscles and clear to auscultation bilaterally Effort & inspection: able to speak in complete sentences Auscultation: clear to auscultation bilaterally Cardio: Common normals: regular rate, regular rhythm, S1 normal heart sound, S2 normal heart sound and no murmurs Rate: regular rate Rhythm: regular rhythm Heart sounds: S1 normal and S2 normal GI: Common normals: soft to palpation and no hepatosplenomegaly Auscultation: hyperactive bowel sounds (Lower abdominal segment only) Palpation: soft and no hepatosplenomegaly Other: Nondistended. Does have palpable tenderness in the right entire abdomen and, more so mid abdomen and slightly upper as opposed to right lower quadrant today. Surgical scarring midline suprapubic area noted, well healed. : Common normals: no CVA tenderness Bladder/kidney exam: no CVA tenderness Back & Pelvis: Common normals: no CVA tenderness Thoracic spine/upper back: normal to inspection Extremity: Common normals: normal to inspection and no pedal edema Neuro: Common normals: moves all extremities Sensorium/orientation: alert Speech: speech normal Gait (neuro): normal gait Psych: Appearance: well kempt Attitude: engaged Activity/motor behavior: appropriate eye contact Attention/concentration: attention grossly intact Insight: insight good Judgement: judgment good Skin: Common normals: no rashes or lesions noted General skin exam: no rashes or lesions noted Course Course ED Course: 64-year-old male with notable prior history of bladder cancer presenting with right periumbilical pain. Bowel sounds are slightly hyperactive in the lower quadrants reason suspicion for internal hernia, intestinal obstruction or otherwise. Pain is not severe, does not seem necrotic at this time. Cannot exclude colitis, gastroenteritis, constipation, gas pain, pancreatitis, urinary obstruction, kidney stone, atypical presentation of bladder infection, musculoskeletal etiology, amongst many others. Will plan to place peripheral IV, obtain point of care creatinine for prep for CT scan with contrast. Typical intra-abdominal labs. He declines pain medicine for now oxycodone and Tylenol ordered p.r.n. should he change his mind. Will await findings. Reevaluation(s) Reevaluation #1: Patient updated on findings, CT is suggestive of severe bowel inflammation with some. J sent fluid collection concerning for perforation, abscess or infection, localized. Does not show any signs of bowel obstruction or internal hernia thankfully. He has a mild leukocytosis and a very mild elevation of lipase as well. I spoke with the patient's urologist and then ultimately a general surgeon. There was over an hour delay in getting a call back from the [facility] team. They recommended patient be sent up to the ED for evaluation and observation. There may be a bed available soon they think. Patient will be transferred via BLS ground to [facility] for further care and observation by surgical team, may potentially need surgery if condition worsens. Vital Signs Vital signs: Initial Vital Signs Temperature 98.4 F 01/30/25 23:24 Temperature Source Temporal Artery Scan 01/30/25 23:24 Pulse Rate 96 01/30/25 23:24 Respiratory Rate 18 01/30/25 23:24 Blood Pressure 137/90 H 01/30/25 23:24 Blood Pressure Mean 105 01/30/25 23:24 Blood Pressure Position Sitting 01/30/25 23:24 Pulse Oximetry 94 01/30/25 23:24 Oxygen Delivery Method Room Air 01/30/25 23:24 Vital Signs Temperature 98.4 F 01/30/25 23:24 Pulse Rate 96 01/30/25 23:24 Respiratory Rate 18 01/30/25 23:24 Blood Pressure 137/90 H 01/30/25 23:24 Pulse Oximetry 94 01/30/25 23:24 Oxygen Delivery Method Room Air 01/30/25 23:24 Temperature 98.4 F 01/30/25 23:24 Pulse Rate 83 01/31/25 03:36 Respiratory Rate 18 01/31/25 03:36 Blood Pressure 124/79 01/31/25 03:36 Pulse Oximetry 94 01/31/25 03:36 Oxygen Delivery Method Room Air 01/31/25 03:36 Medications Administered Medications: Generic Name Dose Route Start Last Admin Trade Name Hugh PRN Reason Stop Dose Admin Acetaminophen 1,000 mg 01/31/25 00:22 01/31/25 01:52 Acetaminophen 500 Mg Tablet PO 1,000 mg Q6H PRN Administration Oxycodone HCl 5 mg 01/31/25 00:22 01/31/25 01:52 Oxycodone 5 Mg Tablet PO 5 mg Q4H PRN Administration Pain MDM - Abdominal Pain Differential Diagnosis Differential diagnosis: Likely abdominal pain, acute appendicitis, calculus of kidney, constipation, diverticulitis, gastroenteritis, pancreatitis and small bowel obstruction Medical Records Attestation: I reviewed the patient's medical records. Lab Data Attestation: I reviewed the patient's lab results. Lab results narrative: Mild leukocytosis, mild elevation of lipase suspicious for pancreatitis but C- reactive protein is okay. Urinalysis is not overly suspicious for infection, will await the culture the. Normal electrolytes and renal function. Labs: Lab Results 01/30/25 01/31/25 01/31/25 Range/Units 23:50 00:24 00:32 WBC 13.84 H (4.50-11.00) K/uL RBC 4.81 (4.30-5.90) m/uL Hgb 13.8 (13.5-17.5) gm/dL Hct 42.4 (37.0-53.0) % MCV 88 (80-100) fL MCH 29 (26-34) pg MCHC 33 (32-36) gm/dL RDW Coeff of Pamela 12.3 (11.5-15.5) % Plt Count 249 (140-440) K/uL Neut % (Auto) 77.4 H (42.0-72.0) % Lymph % (Auto) 7.6 L (20-44) % [place] % (Auto) 7.5 (0.0-11.0) % Eos % (Auto) 6.7 (0.0-7.0) % Baso % (Auto) 0.4 (0.0-3.0) % Neut # (Auto) 10.70 H (1.7-7.0) K/uL Lymph # (Auto) 1.10 (0.90-2.90) K/uL [place] # (Auto) 1.00 H (0.00-0.90) K/UL Eos # (Auto) 0.90 H (0.00-0.50) K/uL Baso # (Auto) 0.10 (0.00-0.30) K/uL Abs Immat Gran (auto) 0.10 (0.00-0.30) K/uL Imm/Tot Granulo (auto) 0.4 % Sodium 138 (135-149) mmol/L Potassium 4.0 (3.6-5.1) mmol/L Chloride 104 (96-114) mmol/L Carbon Dioxide 27 (20-32) mmol/L Anion Gap 7 (7-15) mEq/L BUN 18 (7-30) mg/dL Creatinine 1.0 (0.5-1.5) mg/dL Estimated Creat Clear 68.85 Estimated GFR 84 ml/min Glucose 120 H (60-115) mg/dL Lactate 1.2 (0.5-1.9) mmol/L Calcium 9.3 (8.4-10.6) mg/dL Total Bilirubin 0.4 (0.1-1.5) mg/dL AST 30 (12-35) U/L ALT 17 (4-50) U/L Alkaline Phosphatase 66 (40-150) U/L C-Reactive Protein < 0.5 L (0.5-1.0) mg/dL Total Protein 7.3 (6.0-8.3) g/dL Albumin 4.1 (3.3-5.0) g/dL Lipase 733 H (23-300) U/L Urine Color Yellow (Yellow) Urine Appearance Cloudy A (Clear) Urine pH 6.5 (5.0-8.5) Ur Specific [place] 1.025 (1.000-1.030) Urine Protein 2+ A (Negative) Urine Glucose (UA) Negative (Negative) Urine Ketones Negative (Negative) Urine Blood 2+ A (Negative) Urine Nitrite Negative (Negative) Urine Bilirubin Negative (Negative) Urine Urobilinogen 0.2 (0.2-1.0) Ur Leukocyte Esterase Trace A (Negative) Urine RBC 10-25 A (0-2) Urine WBC 25-50 A (0-5) Ur Squamous Epith Cells Few (None-Few) Amorphous Sediment Moderate A (None) Urine Bacteria Moderate A (None) POC Creatinine 1.1 (0.6-1.3) mg/dl Imaging Data CT scan - abdomen: Attestation: I have reviewed the pertinent imaging results. Radiologist's impression: Impression: Postoperative changes again noted from neobladder creation. At the site of small-bowel anastomosis, there is significant wall thickening of the bowel with adjacent stranding and small volume free fluid. This is most suggestive of a nonspecific enteritis. This may include infectious/inflammatory, malignant, and vascular causes. Absence of obstruction is suggestive against an internal hernia given postsurgical anatomy a surgical complication can not be excluded. Discharge Plan Discharge Clinical Impression: Inflammation of small intestine Patient Disposition: Xfer Other Discharge Location: [facility] Condition: Stable Prescriptions: No Action albuterol sulfate 2.5 mg /3 mL (0.083 %) solution for nebulization 2.5 mg inhalation Q4-6H PRN (Reason: bronchospasm) Qty: 180 0RF cefdinir 300 mg capsule 300 mg PO BID Qty: 20 0RF Stand Alone Forms: [employer] Info Instructions
--- OUTSIDE RECORDS SUMMARY | 2025-01-31 00:30 | XMS_ITS | Encounter Summary ---
Author Organization [place] Address [address] [place] [address] Care Team Providers Care Correction Worker Name Role Phone Alvaro Clark MD Unavailable No Ref-Primary, Physician Primary Care Provider Yessica Mcleod-C Unavailable Bhavin Gardner Primary Care Provider [phone] Ky Torres MD Unavailable Dylan Guerin Unavailable Ky Torres MD Unavailable Dylan Guerin Unavailable Elsy Mims MD Unavailable [phone] Elsy Mims MD Unavailable [phone] Encounter Details Date Type Department Care Team (Late st Contact Info) Description 12/26/2023 [facility] [place] [facility] [place] [address] [address] 200 [facility] [place] [phone] Alvaro Clark MD 420 [facility] 394 [place] [address] Urothelial cancer (H) (Primary Dx) [...] on file 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 Gender Identity Not on file Sexual Orientation Not on file 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 file documented as of this encounter Plan of Treatment Upcoming Encounters Date Type Department Care Team (Late st Contact Info) Description 01/31/2025 12:30 PM CDT Infusion Therapy Visit [facility] [id number] [place] [address] DR JACOBS 200 [place] [address] [place] [address] [place], [place] [address] 01/31/2025 2:40 PM CDT Appointment [facility] Imaging [address] [place] [address] Yessica Mcleod, PAJannetC [address] JACOBS 200 [place] [address] 02/03/2025 10:30 AM CDT Oncology Visit [address] JACOBS 200 [facility] [place] [address] Ky Torres MD 420 [facility] 480 [place], [place] [address] documented as of this encounter Visit Diagnoses Diagnosis Urothelial cancer (H)- Primary Malignant neoplasm of other specified sites of urinary organs documented in this encounter Care Teams Correction Worker Relationship Specialty Start Date End Date No Ref-Primary, Physician PCP - General 12/22/23 12/27/23 Bhavin Gardner [address] [place] [address] PCP - General Family Medicine 12/28/23 Alvaro Clakr MD 420 [facility] 394 [place] [address] Assigned Surgical Provider 07/24/23 Yessica Mcleod PA-C [address] JACOBS 200 [place] [address] Assigned Cancer Care Provider 12/22/23 01/21/24 Ky Torres MD [address] [place] [address] 480 [place] [address] Assigned Cancer Care Provider 01/22/24 04/22/24 [place] [address] [place] [address] Assigned Cancer Care Provider 04/23/24 05/22/24 Ky Torres MD [address] [place] [address] Assigned Cancer Care Provider 05/23/24 06/22/24 [place] [address] 200 [place] [address] Assigned Cancer Care Provider 06/23/24 Elsy Mims MD [address] [place] [address] Physician Infectious Diseases 12/09/24 Elsy Mims MD 500 [place] [address] Assigned Infectious Disease Provider 01/21/25 documented as of this encounter
--- OUTSIDE RECORDS SUMMARY | 2025-01-31 00:30 | XMS_ITS | Encounter Summary ---
Author Organization [place] Address [address] [place] [address] Care Team Providers Care Wine Pasteurizer Name Role Phone Alvaro Clark MD Unavailable System, Provider Not In Primary Care Provider Un available Sixto Whalen APRN FIELD SALES ASSOCIATE Unavailable [phone] No Ref-Primary, Physician Primary Care Provider Yessica Mcleod PA-C Unavailable Bhavin Gardner Primary Care Provider MelissaKy magallon MD Unavailable Dylan Guerin Unavailable Ky Torres MD Unavailable Dylan Guerin Unavailable Elsy Mims MD Unavailable Elsy Mims MD Unavailable [phone] Encounter Details Date Type Department Care Team (Late st Contact Info) Description 11/17/2023 [facility] [place] Medical Advice [facility] [place] [address], DAISY 610 [facility] [place] [place] [phone] Sixto Whalen APRN FIELD SALES ASSOCIATE 909 [place], [place] 84[address] Social History Tobacco Use Types Packs/Day Years [...] on file 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 Gender Identity Not on file Sexual Orientation Not on file 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 file documented as of this encounter Plan of Treatment Upcoming Encounters Date Type Department Care Team (Late st Contact Info) Description 01/31/2025 12:30 PM CDT Infusion Therapy Visit [facility] [address] JACOBS 200 [place] [phone] [place] [address] [place], [place] [address] 01/31/2025 2:40 PM CDT Appointment [facility] Imaging [address] [place] [address] [place] [phone] Yessica Mcleod PA-C [address]ACOBS 200 [place] [address] 02/03/2025 10:30 AM CDT Oncology Visit [address] JACOBS 200 [facility] [place] [phone] Ky Torres MD 420 [facility] 480 [place] [address] documented as of this encounter Visit Diagnoses Not on filedocumented in this encounter Care Teams Wine Pasteurizer Relationship Specialty Start Date End Date System, Provider Not In PCP - General Clinic 08/13/23 12/21/23 No Ref-Primary, Physician PCP - General 12/22/23 12/27/23 Bhavin Gardner [address] [place] [address] PCP - General Family Medicine 12/28/23 Alvaro Clark MD 420 [facility] 394 [place], [place] 76[address] Assigned Surgical Provider 07/24/23 Sixto Whalen APRN CNP [address] [place] [address] 321795 Assigned Cancer Care Provider 10/22/23 12/21/23 Yessica Mcleod PA-C [address] [place] [address] Assigned Cancer Care Provider 12/22/23 01/21/24 Ky Torres MD [address] [address] Assigned Cancer Care Provider 01/22/24 04/22/24 [place] [address] [address] 200 [place] [address] Assigned Cancer Care Provider 04/23/24 05/22/24 Ky Torres MD [address] [address] Assigned Cancer Care Provider 05/23/24 06/22/24 [place] [address] [address] [place] [address] Assigned Cancer Care Provider 06/23/24 Elsy Mims MD 500 [place] [address] Physician Infectious Diseases 12/09/24 Elsy Mims MD 500 [place] [address] Assigned Infectious Disease Provider 01/21/25 documented as of this encounter
--- OUTSIDE RECORDS SUMMARY | 2025-01-31 00:30 | XMS_ITS | Clinical Summary ---
Author Organization [place] Address [address] [place] [address] Care Team Providers Care Buffing Wheel Operator Name Role Phone Alvaro Clark MD Unavailable Bhavin Gardner Primary Care Provider [phone] Dylan Guerin Unavailable [phone] Elsy Mims MD Unavailable [phone] Elsy Mims MD Unavailable [phone] Allergies Active Allergy Reactions Criticality Noted Date [...] Type Department Care Team Description 01/26/[address] [facility] [address] [address] Elsy Mims MD Symptoms 01/05/2025 10:00 AM CDT Office Visit [facility] Infectious Disease [address] [place] [address] Dylan Guerin PA Kavalier, Meredith, MD Recurrent UTI (Primary Dx); Urothelial cancer (H); Complicated UTI (urinary tract infection); Pyelonephritis 01/05/2025 Travel 01/03/2025 2:30 PM CDT Infusion Therapy Visit [address] JACOBS 200 [place] [address] Dylan Guerin PA Malignant neoplasm of anterior wall of urinary bladder (H) (Primary Dx) 01/03/2025 1:30 PM CDT Virtual Visit [address] JACOBS 200 [place] [phone] Dylan Guerin PA Prostate cancer (H) (Primary Dx) 01/03/2025 1:00 PM CDT Infusion Therapy Visit [address] JACOBS 200 [place] [address] Dylan Guerin PA Malignant neoplasm of anterior wall of urinary bladder (H) (Primary Dx); Urothelial cancer (H); Prostate cancer (H) 01/03/2025 Travel 12/06/2024 10:00 AM CDT Infusion Therapy Visit [address] JACOBS 200 [place] [phone] Ky Torres MD Malignant neoplasm of anterior wall of urinary bladder (H) (Primary Dx) 12/06/2024 9:00 AM CDT Oncology Visit [address] JACOBS 200 [place] [address] Yessica Mcleod PA-C Urothelial cancer (H) (Primary Dx); Prostate cancer (H); Complicated UTI (urinary tract infection); Shortness of breath 12/06/2024 8:30 AM CDT Infusion Therapy Visit [address] JACOBS 200 [place] [address] Yessica Mcleod PA-C Malignant neoplasm of anterior wall of urinary bladder (H) (Primary Dx) 12/06/2024 Travel 11/30/2024 2:50 PM CDT - 11/30/2024 11:59 PM CDT Hospital Encounter [facility] Imaging [address] [place] [address] Dylan Guerin PA Urothelial cancer (H); Shortness of breath Discharge Disposition: Home or Self Care 11/30/2024 2:15 PM CDT Lab [address] JACOBS 200 [place] [address] Ky Torres MD Urothelial cancer (H); Prostate cancer (H) 11/30/2024 1:30 PM CDT Oncology Visit [address] JACOBS 200 [facility] [place] [phone] Dylan Guerin PA Urothelial cancer (H) (Primary Dx); Recurrent UTI; Complicated UTI (urinary tract infection); Pyelonephritis; Shortness of breath; Acute bronchitis, unspecified organism; Malignant neoplasm of anterior wall of urinary bladder (H) 11/30/2024 1:00 PM CDT Infusion Therapy Visit [address]ACOBS 200 [place] [address] Dylan Guerin PA Malignant neoplasm of anterior wall of urinary bladder (H) (Primary Dx) 11/30/2024 Travel 11/25/2024 1:25 PM CDT Lab [facility] [address] [place] [address] Lower abdominal pain 11/25/2024 Results Follow-Up [address] JACOBS 200 [place] [phone] Yessica Mcleod PA-C 11/25/2024 Travel 11/25/[address] JACOBS 200 [facility] [place] [place] [address] Yessica Mcleod PA-C Symptoms 11/10/2024 9:45 AM CDT Lab [facility] [place] [address] Urothelial cancer (H) 11/10/2024 Results Follow-Up [facility] Cancer Care Service Line [address] [place] [address] Yessica Mcleod PA-C 11/10/2024 Orders Only [address] JACOBS 200 [facility] [place] [place] [phone] Jill Rothman RN 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) (Primary Dx) 11/10/2024 Travel 11/09/[address] JACOBS 200 [facility] [place] [address] Dylan Guerin PA 11/09/2024 Orders Only [address] JACOBS 200 [facility] [place] [place] [address] Dylan Guerin PA Urothelial cancer (H) (Primary Dx) 11/07/[address] JACOBS 200 [facility] [place] [place] [address] Dylan Guerin PA 11/04/2024 1:30 PM CDT Oncology Visit [address] JACOBS 200 [facility] [place] [place] [address] Yessica Mcleod PA-C Urothelial cancer (H) (Primary Dx); Asthma, unspecified asthma severity, unspecified whether complicated, unspecified whether persistent; Prostate cancer (H); Complicated UTI (urinary tract infection) 11/04/2024 1:00 PM CDT Infusion Therapy Visit [address] JACOBS 200 [place] [address] Yessica Mcleod PA-C Malignant neoplasm of anterior wall of urinary bladder (H) (Primary Dx) 11/04/2024 11:30 AM CDT Infusion Therapy Visit [facility] [address]ACOBS 200 [place] [address] Yessica Mcleod PA-C Malignant neoplasm of anterior wall of urinary bladder (H) (Primary Dx) 11/04/2024 9:02 AM CDT - 11/04/2024 11:59 PM CDT Hospital Encounter [facility] Imaging [address] [place] [address] Dylan Guerin PA Urothelial cancer (H); Malignant [...] on file 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 Gender Identity Not on file Sexual Orientation [...] 01/31/2025 12:30 PM CDT Infusion Therapy Visit [facility] [address] [place] [address] [address] JACOBS 200 [place] [phone] [place] [address] [place], [place] [address] 01/31/2025 2:40 PM CDT Appointment [facility] Imaging [address] [place] [phone] Yessica Mcleod, PAJannetC [address] JACOBS 200 [place] [address] 02/03/2025 10:30 AM CDT Oncology Visit [facility] [address] JACOBS 200 [facility] [place] [place] [phone] Ky Torres MD [address] [address] Health Maintenance Due Date Last Done Comments [...] this topic Medical Devices Implanted Type Area Manager Environmental Services Device Identifier Shelf Expiration Date Model / Serial / Lot Port-08/28/2023 Implanted:Qty: 1 on 08/28/2023 by Pipe Hernandez MD Port Right: Chest Wall [id number] 07/29/2026 / / [id number] Stent Ureteral Molder Punch Diversion 07fr [id number] - [id number] Implanted:Qty: 1 on 12/22/2023 by Alvaro Clark MD at [facility] Stent N/A: Abdomen [employer] [id number] 11/19/2026 [id number] / / [id number] Procedures Procedure Name Priority Date/Time Associated Diagnosis [...] STOOL 1-3 SPEC Routine 06/08/2024 9:00 AM BEVEL POLISHER Iron deficiency anemia due to chronic blood [...] LAB - BLOOD ORDERABLES Fin al Result [facility] Acute Care Lab [address] [facility] Lab (1st floor, no room number) [place] [address], [facility] * FISH bladder cancer (01/03/2025 12:52 PM [...] component of this testing was completed at [facility]. Stain controls for all stains resulted within this report have been reviewed and show appropriate reactivity. 01/09/2025 12:36 PM CDT SPECIALTY LABS Urine VOIDED URINE SPECIMEN / Unknown Non-blood Collection / Unknown 01/03/2025 12:52 PM CDT 01/04/2025 7:51 AM CDT Ky SPEARS Final Resu lt SPECIALTY LABS [facility] [address] [facility], Room [address] [place] [address], [facility] * Cytology, non-gynecologic (01/03/2025 12:52 PM CDT) [...] component of this testing was completed at [facility]. Stain controls for all stains resulted within this report have been reviewed and show appropriate reactivity. 01/04/2025 5:42 PM CDT SPECIALTY LABS Urine VOIDED URINE SPECIMEN / Unknown Non-blood Collection / Unknown 01/03/2025 12:52 PM CDT 01/03/2025 2:55 AM CDT Ky RIVER - MARYCARMEN AP Final Resu lt LABORATORY [facility] Acute Care Lab [address] 1st floor, Room 20[address] [place] [address], [facility] [phone] SPECIALTY LABS Specialty Lab 500 [facility], Room 3[address] [place] [address], [facility] * TSH with free T4 reflex (01/03/2025 12:52 PM CDT) Only the most recent of4 resultswithin the time period is included. TSH 2.93 0.30 - 4.20 uIU/mL 01/03/2025 1:35 PM CDT LABORATORY Blood (Portacath) IVAD (Port) / Unknown 01/03/2025 12:52 PM CDT 01/03/2025 12:57 PM CDT us Dylan IBARRA LAB - BLOOD ORDERABLES Fin al Result LABORATORY [facility] Acute Care Lab [address] Lab (1st floor, no room number) [place] [address], [facility] * PSA, tumor marker (01/03/2025 12:52 PM [...] BLOOD ORDERABLES Fin al Result [facility] LABORATORY [facility] [place] [facility] 500 [facility], Room [address] [place] [id number] * Comprehensive metabolic panel (01/03/2025 12:52 PM [...] - BLOOD ORDERABLES Fin al Result LABORATORY [facility] Care Lab [address] Lab (1st floor, no room number) [place] [address], [facility] * (ABNORMAL) Manual Differential (12/06/2024 8:13 AM CDT) % Neutrophils 81 % DAGMAR 12/06/2024 8:59 AM CDT RH LABORATORY % Lymphocytes 7 % DAGMAR 12/06/2024 8:59 AM CDT RH LABORATORY % Monocytes 3 % DAGMRA 12/06/2024 8:59 AM CDT RH LABORATORY % [...] - BLOOD ORDERABLES Fin al Result LABORATORY [facility] Lab [address] [facility] Lab (1st floor, no room number) [place] [address], [facility] * RBC and Platelet Morphology (12/06/2024 8:13 AM CDT) [facility] RBC Morphology Confirmed RBC Indices 12/06/2024 8:59 AM CDT RH LABORATORY Platelet Assessment Automated Count Confirmed. Platelet morphology is normal. Automated Count Confirmed. Platelet morphology is normal. DAGMAR 12/06/2024 8:59 AM CDT RH LABORATORY Blood (Portacath) IVAD (Port) / Unknown 12/06/2024 8:13 AM CDT 12/06/2024 8:21 AM CDT Dylan IBARRA LAB - BLOOD ORDERABLES Fin al Result [facility] Lab [address] Lab (1st floor, no room number) [place] [address], [facility] * CT Chest Pulmonary Embolism w Contrast [...] CT CHEST PULMONARY EMBOLISM W CONTRAST LOCATION: [facility] DATE: 11/30/2024 INDICATION: Elevated D-dimer, [...] CT CHEST PULMONARY EMBOLISM W CONTRAST LOCATION: [facility] DATE: 11/30/2024 INDICATION: Elevated D-dimer, [...] ug/mL = 0.76 ug/mL (760 ug/L). M Juani et al. Age adjusted D-dimer cut-off levels to rule out pulmonary embolism: The ADJUST-PE Study. ROXANA 2014;311:8112-0549.; SRIKANTH Pickett et al. Diagnostic accuracy of conventional or age adjusted D-dimer cutoff values in older patients with suspected venous thromboembolism. Systemic review and meta-analysis. BMJ 2013:346:f2492. Dylan IBARRA LAB - BLOOD ORDERABLES Fin al Result RH LABORATORY [facility] [address] Lab (1st floor, no room number) [place] [address]RUST * (ABNORMAL) UA with Microscopic reflex to [...] mg/dL 11/25/2024 2:47 PM CDT LABORATORY Specific [place] Urine 1.005 1.003 - 1.035 11/25/2024 2:47 [...] - URINE ORD ERABLES Final Result LABORATORY [facility] Lab [address] Lab (1st floor, no room number) [place] [address]RUST * Urine Culture (11/25/2024 1:33 PM CDT) Only the most recent of2 resultswithin the time period is included. Culture No Growth 11/26/2024 2:02 PM CDT UU IDD LABORATORY Urine URINE SPECIMEN / Unknown Non-blood Collection / Unknown 11/25/2024 1:33 PM CDT 11/25/2024 2:46 PM CDT Yessica Haynes PA-C LAB - MICRO GEN ERAL ORDERABLES Final Result [facility] IDD LABORATORY [facility] Inf. Diseases Diag. Lab 500 [facility], [address] [place] [address], [facility] * CT Chest/Abdomen/Pelvis w Contrast (11/04/2024 9:48 [...] CDT EXAM: CT CHEST/ABDOMEN/PELVIS W CONTRAST LOCATION: [facility] DATE: 11/04/2024 INDICATION: monitoring bladder [...] 11/04/2024 EXAM: CT CHEST/ABDOMEN/PELVIS W CONTRAST LOCATION: [facility] DATE: 11/04/2024 INDICATION: monitoring bladder [...] blood stool 1-3 spec (06/08/2024 9:00 AM BEVEL POLISHER) Pathologist [facility] Occult Blood Slide 1 Negative Negative DAGMAR 06/17/2024 11:32 AM BEVEL POLISHER LABORATORY Occult Blood Slide 2 Negative Negative DAGMAR 06/17/2024 11:32 AM BEVEL POLISHER LABORATORY Occult Blood Slide 3 Negative Negative DAGMAR 06/17/2024 11:32 AM BEVEL POLISHER LABORATORY Stool RECTAL CONTENTS / Unknown Non-blood Collection / Unknown 06/08/2024 9:00 AM BEVEL POLISHER 06/17/2024 11:16 AM BEVEL POLISHER us Dylan IBARRA LAB - STOOLS ORDERABLES Fi nal Result [facility] Lab [address] [facility] Lab (1st floor, no room number) [place] [address], [facility] from Last 3 Months or Most Recently Relevant to Health Maintenance Insurance [employer] MEDICARE [employer] MEDICARE Advance Directives For more information, please contact: [phone] * Full Code (Latest Code Status on [...] patie nt/ legal decision maker Care Teams Buffing Wheel Operator Relationship Specialty Start Date End Date VotelBhavin [address] [place] [address] PCP - General Family Medicine 12/28/23 Alvaro Clark MD [address] [place] [address] Assigned Surgical Provider 07/24/23 [place] [address] [place], [place] 1724[address] Assigned Cancer Care Provider 06/23/24 Elsy Mims MD [address] [place] [address] 986795 Physician Infectious Diseases 12/09/24 Elsy Mims MD 500 [place] [address] Assigned Infectious Disease Provider 01/21/25
--- OUTSIDE RECORDS SUMMARY | 2025-01-31 00:30 | XMS_ITS | Encounter Summary ---
Author Organization [place] Address [address] [place] [address] Care Team Providers Care Dispatch Officer Name Role Phone Alvaro Clark MD Unavailable Bhavin Gardner Primary Care Provider [phone] Dylan Guerin Unavailable [phone] Elsy Mims MD Unavailable [phone] Elsy Mims MD Unavailable [phone] Encounter Details Date Type Department Care Team (Late st Contact Info) Description 10/07/2024 MyC Medical Advice [facility] [place] [id number] [place] [address] DR JACOBS 200 [facility] [place] [phone] [place] [address] [place] [address] Social History Tobacco Use Types [...] on file 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 Gender Identity Not on file Sexual Orientation Not on file 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 file documented as of this encounter Plan of Treatment Upcoming Encounters Date Type Department Care Team (Late st Contact Info) Description 01/31/2025 12:30 PM CDT Infusion Therapy Visit [facility] [address] [place] [address] [address] JACOBS 200 [place] [phone] [place] [address] [place] [address] Dr [address] 200 [place], [place] [address]34[address] 01/31/2025 2:40 PM CDT Appointment [facility] Imaging [address] [place] [address] [place] [phone] Yessica Mcleod PA-C [id number] [place] [address] [address]ACO[address] 200 [place], [place] [address]36[address] 02/03/2025 10:30 AM CDT Oncology Visit [address]ACOBS 200 [place] [address] Ky Torres MD 420 [facility] 480 [place], [place] [address] documented as of this encounter Visit Diagnoses Not on filedocumented in this encounter Care Teams Dispatch Officer Relationship Specialty Start Date End Date Votel, Bhavin [facility] [place] [address] PCP - General Family Medicine 12/28/23 Alvaro Clark MD 420 [facility] 394 [place], [place] 311205 Assigned Surgical Provider 07/24/23 Dylan Guerin PA [address] [place] [address] Dr [address] 200 [place] [address] Assigned Cancer Care Provider 06/23/24 Elsy Mims MD 500 [place] [address] Physician Infectious Diseases 12/09/24 Elsy Mims MD 500 [place] [address] Assigned Infectious Disease Provider 01/21/25 documented as of this encounter
--- OUTSIDE RECORDS SUMMARY | 2025-01-31 00:30 | XMS_ITS | Encounter Summary ---
Author Organization [place] Address [address] [place] [address] Care Team Providers Care Alteration Hand Name Role Phone Alvaro Clakr MD Unavailable System, Provider Not In Primary Care Provider Un available Sixto Whalen APRN BRASS ROLLER Unavailable [phone] No Ref-Primary, Physician Primary Care Provider Yessica Mcleod PA-C Unavailable Bhavin Gardner Primary Care Provider [phone] MelissaKy magallon MD Unavailable Dylan Guerin Unavailable Ky Torres MD Unavailable Dylan Guerin Unavailable Elsy Mims MD Unavailable Elsy Mims MD Unavailable Encounter Details Date Type Department Care Team (Late st Contact Info) Description 12/01/2023 [facility] [address] 200 [facility] [place] [phone] Sabra Wilcox Social History Tobacco Use Types [...] on file 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 [address] [place] [address] [address] JACOBS 200 [place] [phone] [place] [address] 200 [place], [place] [address] 01/31/2025 2:40 PM CDT Appointment [facility] Imaging [address] [place] [address] Yessica Mcleod, PAJose Luis [address] JACOBS 200 [place], [place] [address] 02/03/2025 10:30 AM CDT Oncology Visit [address] JACOBS 200 [facility] [place] [place] [address] Ky Torres MD 420 [facility] 480 [place] [address] documented as of this encounter Visit Diagnoses Not on filedocumented in this encounter Care Teams Alteration Hand Relationship Specialty Start Date End Date System, Provider Not In PCP - General Clinic 08/13/23 12/21/23 No Ref-Primary, Physician PCP - General 12/22/23 12/27/23 Bhavin Gardner 1400 [place] [address] PCP - General Family Medicine 12/28/23 Alvaro Clark MD 420 [facility] 394 [place] [address] Assigned Surgical Provider 07/24/23 Sixto Whalen APRN CNP [address] [place] [address] Assigned Cancer Care Provider 10/22/23 12/21/23 Yessica Mcleod PA-C [address] [facility] [address] 200 [place] [address] Assigned Cancer Care Provider 12/22/23 01/21/24 Ky Torres MD 420 [facility] 480 [place] [address] Assigned Cancer Care Provider 01/22/24 04/22/24 [place] [address] Jacobs [address] [place] [address] Assigned Cancer Care Provider 04/23/24 05/22/24 Ky Torres MD 420 [facility] 480 [place] [address] Assigned Cancer Care Provider 05/23/24 06/22/24 [place] [address] Jacobs 200 [place] [address] Assigned Cancer Care Provider 06/23/24 Elsy Mims MD 500 [place] [address] Physician Infectious Diseases 12/09/24 Elsy Mims MD 500 [place] [address] Assigned Infectious Disease Provider 01/21/25 documented as of this encounter
--- OUTSIDE RECORDS SUMMARY | 2025-01-31 00:30 | XMS_ITS ---
Author Organization [place] Address [address] [place] [address] Care Team Providers Care Valuation Manager Name Role Phone Alvaro Clark MD Unavailable Bhavin Gardner Primary Care Provider [phone] Dylan Guerin Unavailable [phone] Elsy Mims MD Unavailable [phone] Elsy Mims MD Unavailable [phone] Active Problems Problem Noted Date Diagnosed Date [...]
--- OUTSIDE RECORDS SUMMARY | 2025-01-31 00:30 | XMS_ITS | Encounter Summary ---
Author Organization [facility] Address [address] [place] [address] Care Team Providers Care Concrete Precast Moulder Name Role Phone Alvaro Clark MD Unavailable System, Provider Not In Primary Care Provider Un available Ky Torres MD Unavailable [phone] Sixto Whalen APRN TAKE OFF WORKER Unavailable [phone] No Ref-Primary, Physician Primary Care Provider Yessica Mcleod PA-C Unavailable Bhavin Gardner Primary Care Provider [phone] Ky Torres MD Unavailable [phone] Dylan Guerin Unavailable Ky Torres MD Unavailable [phone] Dylan Guerin Unavailable Elsy Mims MD Unavailable [phone] Elsy Mims MD Unavailable Encounter Details Date Type Department Care Team (Late st Contact Info) Description 09/26/2023 [facility] [place] [address], DAISY 610 [facility] [place] [place] [phone] Ky Torres MD 420 [facility] 480 [place] [address] Social History Tobacco Use Types Packs/Day Years [...] on file 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 Gender Identity Not on file Sexual Orientation Not on file 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 file documented as of this encounter Plan of Treatment Upcoming Encounters Date Type Department Care Team (Late st Contact Info) Description 01/31/2025 12:30 PM CDT Infusion Therapy Visit [facility] [address] JACOBS 200 [place] [phone] [place] [address] 200 [place] [address] 01/31/2025 2:40 PM CDT Appointment [facility] Imaging [address] [place] [address] Yessica Mcleod PA-C [address] JACOBS 200 [place] [address] 02/03/2025 10:30 AM CDT Oncology Visit [address] JACOBS 200 [facility] [place] [address] Ky Torres MD [address] [place] [address] 480 [place] [address] documented as of this encounter Visit Diagnoses Not on filedocumented in this encounter Care Teams Concrete Precast Moulder Relationship Specialty Start Date End Date System, Provider Not In PCP - General Clinic 08/13/23 12/21/23 No Ref-Primary, Physician PCP - General 12/22/23 12/27/23 Bhavin Gardner [address] [place] [address] PCP - General Family Medicine 12/28/23 Alvaro Clark MD [address] [address] Assigned Surgical Provider 07/24/23 Ky Torres MD [address] [place] [address] 480 [place] [address] Assigned Cancer Care Provider 09/22/23 10/21/23 Sixto Whalen APRN CNP [address] [place] [address] Assigned Cancer Care Provider 10/22/23 12/21/23 Yessica Mcleod PA-C [address] [place] [address] 8[address]297 Assigned Cancer Care Provider 12/22/23 01/21/24 Ky Torres MD [address] [place] [address] Assigned Cancer Care Provider 01/22/24 04/22/24 [place] [address] [address] [place] [address] 378787 Assigned Cancer Care Provider 04/23/24 05/22/24 Ky Torres MD [address] [place] [address] Assigned Cancer Care Provider 05/23/24 06/22/24 [place] [address] Jacobs [address] [place] [address] 937777 Assigned Cancer Care Provider 06/23/24 Elsy Mims MD 500 [place], [place] 611265 Physician Infectious Diseases 12/09/24 Elsy Mims MD 500 [place] [address] Assigned Infectious Disease Provider 01/21/25 documented as of this encounter
--- OUTSIDE RECORDS SUMMARY | 2025-01-31 00:30 | XMS_ITS | Clinical Summary ---
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 Not on file Obstetrics History Last Filed Vital Signs Vital Sign Reading Time Taken Comments Blood Pressure 114/65 12/19/2022 2:41 PM CDT Pulse 98 12/19/2022 2:41 PM CDT Temperature 36.1 C (97 F) 07/18/2019 11:30 AM NURSING PROJECT COORDINATOR Respiratory Rate 18 12/19/2022 2:41 PM CDT [...] patient's age to complete this topic Insurance [facility] * Guarantor: OLEG RICHEY Account Type Relation to Patient Date of Phone Billing Address Workers Comp [id number] YEN CASILLAS ANATLATESHA [id number] WORKERS COMP WC [employer] BILL PROCESSING PREFERRED ONE PREFERRED ONE Care Teams Concert Pianist Relationship Specialty Start Date End Date Pcp, No . PCP - General 08/07/10
--- OUTSIDE RECORDS SUMMARY | 2025-01-31 00:30 | XMS_ITS | Encounter Summary ---
Author Organization [place] Address [address] [place] [address] Care Team Providers Care Hand Lacer Name Role Phone Alvaro Clark MD Unavailable Bhavin Gardner Primary Care Provider [phone] Dylan Guerin Unavailable [phone] Elsy Mims MD Unavailable [phone] Encounter Details Date Type Department Care Team (Late st Contact Info) Description 11/10/2024 Results Follow-Up [facility] Services - Cancer Care Service Line [address] [place] [address] Yessica Mcleod, PA-C [address] 200 [place] [address] Social History Tobacco Use Types Packs/Day Years [...] on file 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 Gender Identity Not on file Sexual Orientation Not on file 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 file documented as of this encounter Plan of Treatment Upcoming Encounters Date Type Department Care Team (Late st Contact Info) Description 01/31/2025 12:30 PM CDT Infusion Therapy Visit [facility] [address] [place] [address] DR JACOBS 200 [place] [phone] [place] [address] [place] [address] [place] [address] 01/31/2025 2:40 PM CDT Appointment [facility] Center Imaging [address] [place] [address] [place] [phone] Yessica Mcleod, RONALD [address] JACOBS 200 [place] [address] 02/03/2025 10:30 AM CDT Oncology Visit [address] JACOBS 200 [place] [address] Ky Torres MD 420 [facility] 480 [place], [place] [address] documented as of this encounter Visit Diagnoses Not on filedocumented in this encounter Care Teams Hand Lacer Relationship Specialty Start Date End Date DaoteBhavin ferrara 1400 [place] [address] PCP - General Family Medicine 12/28/23 Alvaro Clark MD 420 [facility] 394 [place], [place] 467525 Assigned Surgical Provider 07/24/23 [place] [address] [place] [address] Dr Jacobs 200 [place] [address] Assigned Cancer Care Provider 06/23/24 Elsy Mims MD 500 [place], [place] 821035 Physician Infectious Diseases 12/09/24 documented as of this encounter
--- OUTSIDE RECORDS SUMMARY | 2025-01-31 00:30 | XMS_ITS | Encounter Summary ---
Author Organization [place] Address [address] [place] [address] Care Team Providers Care Mr Teacher Name Role Phone Alvaro Clark MD Unavailable System, Provider Not In Primary Care Provider Un available Ky Torres MD Unavailable [phone] Sixto Whalen APRN FIXTURE REPAIRER FABRICATOR Unavailable [phone] No Ref-Primary, Physician Primary Care Provider Yessica Mcleod PA-C Unavailable Bhavin Gardner Primary Care Provider Ky Torres MD Unavailable [phone] Dylan Guerin Unavailable Ky Torres MD Unavailable [phone] Dylan Guerin Unavailable Elsy Mims MD Unavailable [phone] Elsy Mims MD Unavailable Encounter Details Date Type Department Care Team (Late st Contact Info) Description 09/28/2023 [facility] [address] JACOBS 200 [facility] [place] [address] Charlie Almonte, RN Urothelial cancer (H) (Primary [...] on file 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 Gender Identity Not on file Sexual Orientation Not on file 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 file documented as of this encounter Plan of Treatment Upcoming Encounters Date Type Department Care Team (Late st Contact Info) Description 01/31/2025 12:30 PM CDT Infusion Therapy Visit [facility] [address] JACOBS 200 [place] [address] [place] [address] [place] [address] Jacobs 200 [place] [address] 01/31/2025 2:40 PM CDT Appointment [facility] Imaging [address] [place] [address] [place] [address] Yessica Mcleod PA-C [address] JACOBS 200 [place] [address] 02/03/2025 10:30 AM CDT Oncology Visit [address] JACOBS 200 [facility] [place] [address] Ky Torres MD 420 [facility] 480 [place] [address] documented as of this encounter Visit Diagnoses Diagnosis Urothelial cancer (H)- Primary Malignant neoplasm of other specified sites of urinary organs documented in this encounter Care Teams Mr Teacher Relationship Specialty Start Date End Date System, Provider Not In PCP - General Clinic 08/13/23 12/21/23 No Ref-Primary, Physician PCP - General 12/22/23 12/27/23 Bhavin Gardner [address] [place] [address] PCP - General Family Medicine 12/28/23 Alvaro Clark MD [address] [place] [address] 394 [place] [address] Assigned Surgical Provider 07/24/23 Ky Torres MD [address] [place] [address] Assigned Cancer Care Provider 09/22/23 10/21/23 Sixto Whalen APRN CNP [address] [place] [address] Assigned Cancer Care Provider 10/22/23 12/21/23 Yessica Mcleod PA-C [address] JACOBS [address] [place] [address] Assigned Cancer Care Provider 12/22/23 01/21/24 Ky Torres MD [address] [place] [address] Assigned Cancer Care Provider 01/22/24 04/22/24 [place] [address] Jacobs [address] [place] [address] Assigned Cancer Care Provider 04/23/24 05/22/24 Ky Torres MD [address] [place] [address] 480 [place] [address] Assigned Cancer Care Provider 05/23/24 06/22/24 [place] [address] [place] [address] [address] Assigned Cancer Care Provider 06/23/24 Elsy Mims MD 500 [place] [address] Physician Infectious Diseases 12/09/24 Elsy Mims MD 500 [place] [address] Assigned Infectious Disease Provider 01/21/25 documented as of this encounter
--- OUTSIDE RECORDS SUMMARY | 2025-01-31 00:30 | XMS_ITS | Encounter Summary ---
Author Organization [facility] Address [address] [place] [address] Care Team Providers Care Textile Machinery Instructor Name Role Phone Alvaro Clark MD Unavailable System, Provider Not In Primary Care Provider Un available Ky Torres MD Unavailable [phone] Sixto Whalen APRN INSTITUTIONAL RESEARCH DIRECTOR Unavailable [phone] No Ref-Primary, Physician Primary Care Provider Yessica Mcleod PA-C Unavailable Bhavin Gardner Primary Care Provider Ky Torres MD Unavailable [phone] Dylan Guerin Unavailable Ky Torres MD Unavailable [phone] Dylan Guerin Unavailable Elsy Mims MD Unavailable [phone] Elsy Mims MD Unavailable [phone] Encounter Details Date Type Department Care Team (Late st Contact Info) Description 09/02/2023 [facility] Advice M [facility] [place] [address], DAISY 610 [facility] [place] [address] Ky Torres MD 420 [facility] 480 [place] [address] Social History Tobacco Use Types Packs/Day Years [...] on file 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 Gender Identity Not on file Sexual Orientation Not on file 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 file documented as of this encounter Plan of Treatment Upcoming Encounters Date Type Department Care Team (Late st Contact Info) Description 01/31/2025 12:30 PM CDT Infusion Therapy Visit [facility] [address] JACOBS 200 [place] [phone] [place] [address] [place] [address] [place] [address] 01/31/2025 2:40 PM CDT Appointment [facility] Center Imaging [address] [place] [address] [place] [address] Yessica Mcleod PA-C [address] JACOBS 200 [place] [address] 02/03/2025 10:30 AM CDT Oncology Visit [address] JACOBS 200 [facility] [place] [address] Ky Torres MD [address] [place] [address] 480 [place] [address] documented as of this encounter Visit Diagnoses Not on filedocumented in this encounter Care Teams Textile Machinery Instructor Relationship Specialty Start Date End Date System, Provider Not In PCP - General Clinic 08/13/23 12/21/23 No Ref-Primary, Physician PCP - General 12/22/23 12/27/23 Bhavin Gardner [address] [place] [address] PCP - General Family Medicine 12/28/23 Alvaro Clark MD [address] [address] Assigned Surgical Provider 07/24/23 Ky Torres MD [address] [place] [address] 480 [place] [address] Assigned Cancer Care Provider 09/22/23 10/21/23 Sixto Whalen APRN CNP [address] [place] [address] Assigned Cancer Care Provider 10/22/23 12/21/23 Yessica Mcleod PA-C [address] [place] [address] 931157 Assigned Cancer Care Provider 12/22/23 01/21/24 Ky Torres MD [address] [place] [address] 045835 Assigned Cancer Care Provider 01/22/24 04/22/24 [place] [address] [address] [place] [address] 711657 Assigned Cancer Care Provider 04/23/24 05/22/24 Ky Torres MD [address] [place] [address] Assigned Cancer Care Provider 05/23/24 06/22/24 [place] [address] [place] [address] [place] [address] 949467 Assigned Cancer Care Provider 06/23/24 Elsy Mims MD 500 [place], [place] 446[address] Physician Infectious Diseases 12/09/24 Elsy Mims MD 500 [place] [address] Assigned Infectious Disease Provider 01/21/25 documented as of this encounter
--- OUTSIDE RECORDS SUMMARY | 2025-01-31 00:31 | XMS_ITS | Encounter Summary ---
Author Organization [facility] Address [address] [place] [address] Care Team Providers Care Slate Cutter Operator Name Role Phone Alvaro Clark MD Unavailable System, Provider Not In Primary Care Provider Un available Ky Torres MD Unavailable [phone] Sixto Whalen APRN SHIRT OPERATOR Unavailable [phone] No Ref-Primary, Physician Primary Care Provider Yessica Mcleod PA-C Unavailable Bhavin Gardner Primary Care Provider Ky Torres MD Unavailable [phone] Dylan Guerin Unavailable Ky Torres MD Unavailable [phone] Dylan Guerin Unavailable Elsy Mims MD Unavailable [phone] Elsy Mims MD Unavailable Encounter Details Date Type Department Care Team (Late st Contact Info) Description 07/24/2023 [facility] [address] [place] [address] Diamond Conway RN Social History [...] 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 Gender Identity Not on file Sexual Orientation Not on file 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 file documented as of this encounter Plan of Treatment Upcoming Encounters Date Type Department Care Team (Late st Contact Info) Description 01/31/2025 12:30 PM CDT Infusion Therapy Visit [facility] [address] [place] [address] [address] JACOBS 200 [place] [address] [place] [address] 200 [place], [place] [address] 01/31/2025 2:40 PM CDT Appointment [facility] Imaging [address] [place] [address] Yessica Mcleod, PAJannetC [address]ACOBS 200 [place] [address] 02/03/2025 10:30 AM CDT Oncology Visit [address] JACOBS 200 [facility] [place] [address] Ky Torres MD 420 [facility] 480 [place] [address] documented as of this encounter Visit Diagnoses Not on filedocumented in this encounter Care Teams Slate Cutter Operator Relationship Specialty Start Date End Date System, Provider Not In PCP - General Clinic 08/13/23 12/21/23 No Ref-Primary, Physician PCP - General 12/22/23 12/27/[address] [facility] [place] [address] PCP - General Family Medicine 12/28/23 Alvaro Clark MD 420 [facility] 394 [place] [address] Assigned Surgical Provider 07/24/23 Ky Torres MD 420 [facility] 480 [place] [address] Assigned Cancer Care Provider 09/22/23 10/21/23 Sixto Whalen APRN CNP 909 [place] [address] Assigned Cancer Care Provider 10/22/23 12/21/23 Yessica Mcleod PA-C [address] 200 [place] [address] Assigned Cancer Care Provider 12/22/23 01/21/24 Ky Torres MD 420 [facility] 480 [place] [address] Assigned Cancer Care Provider 01/22/24 04/22/24 [place] [address] [address] 200 [place], [place] 852327 Assigned Cancer Care Provider 04/23/24 05/22/24 Ky Torres MD 420 [facility] 480 [place] [address] Assigned Cancer Care Provider 05/23/24 06/22/24 [place] [address] 789827 Assigned Cancer Care Provider 06/23/24 Elsy Mims MD 500 [place], [place] 472045 Physician Infectious Diseases 12/09/24 Elsy Mims MD 500 [place], [place] 445535 Assigned Infectious Disease Provider 01/21/25 documented as of this encounter
--- OUTSIDE RECORDS SUMMARY | 2025-01-31 00:31 | XMS_ITS | Encounter Summary ---
Author Organization [place] Address [address] [place] [address] Care Team Providers Care Manager Financial Name Role Phone Alvaro Clark MD Unavailable Bhavin Gardner Primary Care Provider [phone] Dylan Guerin Unavailable [phone] Elsy Mims MD Unavailable [phone] Elsy Mims MD Unavailable [phone] Reason for Visit * Reason Onset Date Comments Symptoms 01/26/2025 Encounter Details Date Type Department Care Team (Late st Contact Info) Description 01/26/2025 Telephone [facility] [address] [address] Elsy Mims MD [address] [place] [address] Symptoms Social History Tobacco Use Types [...] on file 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 Computerized Mill Mill Recorder encourages pt to follow up with urology [...] today and has not taken hiprex today. Computerized Mill Mill Recorder instructs Oleg to stop taking Hiprex. And [...] Tiffany Moss - 01/26/2025 8:18 AM CDT [facility] Call Center Phone Message May a [...] 01/31/2025 12:30 PM CDT Infusion Therapy Visit [facility] [address] JACOBS [address] [place] [phone] [place] [address] [place] [address] 01/31/2025 2:40 PM CDT Appointment [facility] Imaging [address] [place] [address] [place] [phone] Yessica Mcleod PAJannetC [address] JACOBS 200 [place] [address] 02/03/2025 10:30 AM CDT Oncology Visit [facility] [address] [place] [address] DR JACOBS 200 [facility] [place] [phone] Ky Torres MD 420 [facility] 480 [place] [address] documented as of this encounter Visit Diagnoses Not on filedocumented in this encounter Care Teams Manager Financial Relationship Specialty Start Date End Date Votel, Bhavin Ford [address] [place] [address] PCP - General Family Medicine 12/28/23 Alvaro Clark MD 420 [facility] 394 [place] [address] Assigned Surgical Provider 07/24/23 [place] [address] [place] [address] [address] Assigned Cancer Care Provider 06/23/24 Elsy Mims MD 500 [place] [address] Physician Infectious Diseases 12/09/24 Elsy Mims MD 500 [place] [address] Assigned Infectious Disease Provider 01/21/25 documented as of this encounter
--- OUTSIDE RECORDS SUMMARY | 2025-01-31 00:31 | XMS_ITS | Encounter Summary ---
Author Organization [place] Address [address] [place] [address] Care Team Providers Care Acid Loader Name Role Phone Dalila Arrieta PA Unavailable [phone] System, Provider Not In Primary Care Provider Un available Alvaro Clark MD Unavailable System, Provider Not In Primary Care Provider Un available Ky Torres MD Unavailable [phone] Sixto Whalen APRN HISTORIOGRAPHY PROFESSOR Unavailable [phone] No Ref-Primary, Physician Primary Care Provider Yessica Mcleod PA-C Unavailable Bhavin Gardner Primary Care Provider [phone] Ky Torres MD Unavailable [phone] Dylan Guerin Unavailable [phone] Ky Torres MD Unavailable [phone] Dylan Guerin Unavailable [phone] Elsy Mims MD Unavailable [phone] Elsy Mims MD Unavailable [phone] Encounter Details Date Type Department Care Team (Late st Contact Info) Description 07/17/2023 [facility] [address] [place] [address] Lisa Guevara, RN Social History [...] on file 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 Gender Identity Not on file Sexual Orientation Not on file 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 file documented as of this encounter Plan of Treatment Upcoming Encounters Date Type Department Care Team (Late st Contact Info) Description 01/31/2025 12:30 PM CDT Infusion Therapy Visit [facility] [address] [place] [address] DR JACOBS 200 [place] [phone] [place] [address] [place] Jacobs [address] [place] [address] 01/31/2025 2:40 PM CDT Appointment [facility] Imaging [address] [place] [place] [phone] Yessica Mcleod, PAJose Luis [address] JACOBS 200 [place] [address] 02/03/2025 10:30 AM CDT Oncology Visit [facility] [address] [place] [address] JACOBS 200 [facility] [place] [phone] Ky Torres MD [address] 089675 documented as of this encounter Visit Diagnoses Not on filedocumented in this encounter Care Teams Acid Loader Relationship Specialty Start Date End Date System, Provider Not In PCP - General Clinic 07/20/23 07/20/23 System, Provider Not In PCP - General Clinic 08/13/23 12/21/23 No Ref-Primary, Physician PCP - General 12/22/23 12/27/23 Bhavin Gardner 1400 [place] [address] PCP - General Family Medicine 12/28/23 Dalila Arrieta PA [address] [place] [address] [place] [address] Assigned Surgical Provider 07/03/23 07/23/23 Alvaro Clark MD 420 [facility] 394 [place] [address] Assigned Surgical Provider 07/24/23 Ky Torres MD 420 [facility] 480 [place] [address] Assigned Cancer Care Provider 09/22/23 10/21/23 Sixto Whalen APRN CNP 909 [place] [address] Assigned Cancer Care Provider 10/22/23 12/21/23 Yessica Mcleod PA-C [address] [facility] [address] [address] Assigned Cancer Care Provider 12/22/23 01/21/24 Ky Torres MD 420 [facility] 480 [place] [address] Assigned Cancer Care Provider 01/22/24 04/22/24 [place] [address] [place] [place] [address] Assigned Cancer Care Provider 04/23/24 05/22/24 Ky Torres MD [address] [place] [address] [id number] Assigned Cancer Care Provider 05/23/24 06/22/24 [place] [address] [place] [place] [address] Assigned Cancer Care Provider 06/23/24 Elsy Mims MD 500 [place], [place] 944945 Physician Infectious Diseases 12/09/24 Elsy Mims MD 500 [place], [place] 182455 Assigned Infectious Disease Provider 01/21/25 documented as of this encounter
--- OUTSIDE RECORDS SUMMARY | 2025-01-31 00:31 | XMS_ITS | Encounter Summary ---
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 file documented as of this encounter Plan of Treatment Upcoming Encounters Date Type Department Care Team (Late st Contact Info) Description 01/31/2025 12:30 PM CDT Infusion Therapy Visit [facility] [address] [address] [place] [phone] [place] [address] [address] [place] [address] 01/31/2025 2:40 PM CDT Appointment [facility] Imaging [address] [place] [address] [place] [phone] Yessica Mcleod PA-C [address]ACOBS 200 [place] [address] 02/03/2025 10:30 AM CDT Oncology Visit [facility] [address] [place] [address]ACOBS 200 [facility] [place] [address] Ky Torres MD [address] [address] documented as of this encounter Visit Diagnoses Not on filedocumented in this encounter Care Teams Aeronautical Products Sales Engineer Relationship Specialty Start Date End Date VotelBhavin [address] [place] [address] PCP - General Family Medicine 12/28/23 Alvaro Clark MD [address] [place] [address] 304365 Assigned Surgical Provider 07/24/23 Dylan Guerin PA [address] [place] [address] Dr Jacobs 200 [place] [address] Assigned Cancer Care Provider 06/23/24 Elsy Mims MD [address] [place] [address] Physician Infectious Diseases 12/09/24 documented as of this encounter
--- OUTSIDE RECORDS SUMMARY | 2025-01-31 00:31 | XMS_ITS | Encounter Summary ---
Author Organization [facility] Address [address] [place] [address] Care Team Providers Care Residential Builder Name Role Phone Alvaro Clark MD Unavailable Bhavin Gardner Primary Care Provider [phone] Dylan Guerin Unavailable [phone] Elsy Mims MD Unavailable [phone] Elsy Mims MD Unavailable [phone] Encounter Details Date Type Department Care Team (Late st Contact Info) Description 11/25/2024 Results Follow-Up [facility] [place] [address] [facility] [place] [address] Yessica Mcleod, PAJannetC [address] [address] [place] [address] Social History Tobacco Use Types [...] on file 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 [address] [place] [address] DR JACOBS 200 [place] [phone] [place] [address] [place] [address] [place], [place] [address] 01/31/2025 2:[address] [facility] Imaging [address] [place] [address] [place] [phone] Yessica Mcleod PA-C [address] [place] [address] [address] JACO[address] 200 [place], [place] [address] 02/03/2025 10:30 AM CDT Oncology Visit [address] JACOBS 200 [place] [address] Ky Torres MD 420 [facility] 480 [place], [place] 7[address] documented as of this encounter Visit Diagnoses Not on filedocumented in this encounter Care Teams Residential Builder Relationship Specialty Start Date End Date Votel, Bhavin Ford [facility][note 2] [place] [address] PCP - General Family Medicine 12/28/23 Alvaro Clark MD 420 [facility] 394 [place], [place] 5789[address] Assigned Surgical Provider 07/24/23 Dylan Guerin PA [address] [place] [address] Dr [address] 200 [place] [address] Assigned Cancer Care Provider 06/23/24 Elsy Mims MD 500 [place] [address] Physician Infectious Diseases 12/09/24 Elsy Mims MD 500 [place] [address] Assigned Infectious Disease Provider 01/21/25 documented as of this encounter
--- OUTSIDE RECORDS SUMMARY | 2025-01-31 00:31 | XMS_ITS | Encounter Summary ---
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 file documented as of this encounter Plan of Treatment Upcoming Encounters Date Type Department Care Team (Late st Contact Info) Description 01/31/2025 12:30 PM CDT Infusion Therapy Visit [facility] [address] [address] 200 [place] [address] [place] [address] [address] [place] [address] 01/31/2025 2:40 PM CDT Appointment [facility] Imaging [address] [place] [address] [place] [phone] Yessica Mcleod PA-C [address]ACOBS 200 [place] [address] 02/03/2025 10:30 AM CDT Oncology Visit [facility] [address] [place] [address]ACOBS 200 [facility] [place] [address] Ky Torres MD [address] 803775 documented as of this encounter Visit Diagnoses Not on filedocumented in this encounter Care Teams Project Executive Relationship Specialty Start Date End Date VotelBhavin 1400 [place] [address] PCP - General Family Medicine 12/28/23 Alvaro Clark MD [address] [place] [address] 615515 Assigned Surgical Provider 07/24/23 Dylan Guerin PA [address] [place] [address] Dr Jacobs 200 [facility] [place] [address] Assigned Cancer Care Provider 06/23/24 Elsy Mims MD [address] [place] [address] Physician Infectious Diseases 12/09/24 documented as of this encounter
[2025-01-31 00:46] LABS: Lactate* 1.2 mmol/L (0.5-1.9)
[2025-01-31 00:48] LABS: Hematocrit* 42.4 % (37.0-53.0); Hemoglobin* 13.8 gm/dL (13.5-17.5); Immature Granulocytes Pct Auto 0.4 %; Mean Corpuscular HGB Conc 33 gm/dL (32-36); Mean Corpuscular Hemoglobin 29 pg (26-34); Mean Corpuscular Volume 88 fL (80-100); RDW Coefficient of Variation % 12.3 % (11.5-15.5); Red Blood Count* 4.81 m/uL (4.30-5.90); White Blood Count* 13.84 K/uL (4.50-11.00)
[2025-01-31 01:11] LABS: Albumin* 4.1 g/dL (3.3-5.0); Chloride* 104 mmol/L (96-114)
[2025-01-31 01:12] LABS: Potassium* 4.0 mmol/L (3.6-5.1); Sodium* 138 mmol/L (135-149)
[2025-01-31 01:14] LABS: Blood Urea Nitrogen* 18 mg/dL (7-30); Creatinine* 1.0 mg/dL (0.5-1.5); Est. Creatinine Clearance* 68.85; Estimated Glomerular Filt Rate 84 ml/min
[2025-01-31 01:15] LABS: Alanine Aminotransferase* 17 U/L (4-50); Alkaline Phosphatase* 66 U/L (40-150); Anion Gap 7 mEq/L (7-15); Aspartate Amino Transferase* 30 U/L (12-35); Bilirubin Total* 0.4 mg/dL (0.1-1.5); Calcium* 9.3 mg/dL (8.4-10.6); Carbon Dioxide* 27 mmol/L (20-32); Glucose* 120 mg/dL (60-115); Total Protein* 7.3 g/dL (6.0-8.3)
[2025-01-31 01:16] LABS: Creatinine, Point-of-Care* 1.1 mg/dl (0.6-1.3)
[2025-01-31 01:18] LABS: Immature Granulocytes Abs Auto 0.10 K/uL (0.00-0.30); Lymphocytes Absolute Auto 1.10 K/uL (0.90-2.90); Slide Review Reflex No
[2025-01-31] MEDS: ACETAMINOPHEN 500 MG TABLET 1000 MG PO (01:52)
[2025-01-31 03:36] VITALS: BP 124/79; PULSE 83; RESP 18; O2SAT 94
--- NOTE | 2025-01-31 04:53 | ED.NURSE ---
Report given to RNShobha, at [place] -
[2025-01-31 07:23] VITALS: BP 128/80; PULSE 89; RESP 16; TEMP 36.6; O2SAT 92
== END 2025-01-31 07:51 | disposition other institution (70) ==
PROVIDERS: Emergency Medicine Emergency Medical Services; Emergency Provider Family Medicine; PCP Family Medicine
DX: K52.9 Noninfective gastroenteritis and colitis, unspecified (principal)
CPT/HCPCS: 36415; 74177; 80053; 81001; 81003; 82565; 83605; 83690; 85025; 86140; 87086; 87186; 99284; 99285; A9270; Q9967